=== PATIENT | female | born 1955 | race Caucasian/White ===

== ENCOUNTER 2018-05-27 06:58 | Inpatient (IN) | payer OTHER ==
[2018-05-26 08:06] VITALS: BP 139/67; PULSE 82; RESP 18; Ht 144.8 cm; Wt 63.7 kg
[2018-05-27] VITALS (62 sets, daily range): BP systolic 57–133; BP diastolic 34–69; PULSE 38–100; RESP 10–35
[~2018-05-27] VITALS: Ht 144.8 cm; Wt 63.7 kg
[~2018-05-27 06:58] MED LIST: ACET500C3 PO; ALBU18HF INHALATION; AMLO5TAB4 PO; BECL10.6 IH; DIAZEPAM 5 MG TAB PO SCH; DIPHENHYDRAMINE 50 MG CAP PO SCH; ERGO500013 PO; FAMOTIDINE 20 MG TAB PO SCH; FENTAnyl 50 MCG/ML VIAL ONE; FURO20TA3 PO; HEPARIN 1000 UNITS/ML 10 ML INJ ONE; IODIXANOL LOCM 100 ML BTL ONE; LEVO50TA7 PO; LIDOCAINE 1% (MDV) 20 ML INJ ONE; LOSA1TAB25 PO; MIDAZOLAM 1 MG/ML 2 ML INJ ONE; NITROGLYCERIN (IC) 100 MCG/ML INJ ONE; RANI150T5 PO; SIMV20TA PO; SOD CHLORIDE 0.9% 500 ML ONE; SPIR25TA PO; VERAPAMIL 5 MG INJ ONE; WARF4TAB PO; WARF5TAB PO
[2018-05-27] MEDS ORDERED: FENTAnyl 50 MCG/ML VIAL ONE (08:57)
[2018-05-27] MEDS ORDERED: IODIXANOL LOCM 100 ML BTL ONE (08:57)
[2018-05-27] MEDS ORDERED: MIDAZOLAM 1 MG/ML 2 ML INJ ONE (08:57)
[2018-05-27] MEDS ORDERED: LIDOCAINE 1% (MDV) 20 ML INJ ONE (08:57)
[2018-05-27] MEDS ORDERED: SOD CHLORIDE 0.9% 1,000 ML IV SCH (11:15)
--- NOTE | 2018-05-27 11:15 | SIPON ---
Date/Time of Note Date/Time of Note DATE: 05/27/18 TIME: 11:14 Operative Report Preoperative Diagnosis 1. Postoperative Diagnosis 1.non-obstructive cad 2.No significant Operation/Procedure Performed 1.C 2.RHC Surgeon see signature line resident assistant cna 1.Patrick Anesthesia: moderate sedation Estimated blood loss: minimal Transfusion Required none Specimen none Grafts/Implants none Complications none CHRIS LAZAR May 27, 2018 11:15
[2018-05-27] MEDS ORDERED: AL HYDROX/MG HYDROX/SIMETH 30 ML CUP PO PRN (11:30)
[2018-05-27] MEDS ORDERED: ATROPINE 1 MG/10 ML SYRINGE ONE (12:05)
[2018-05-27] MEDS ORDERED: NORepinephrine 8MG/250 ML (PMX 250 ML ONE (13:44)
--- NOTE | 2018-05-27 13:47 | HP ---
Date/Time of Note Date/Time of Note DATE: 05/27/18 TIME: 13:46 Assessment/Plan VTE Prophylaxis Risk score (from Ns)>0 risk: 2 SCD applied (from Ns): Yes Pharmacological prophylaxis: other Pharm contraindication: other Lines/Catheters IV C[facility]ter Type (from [facility] Peripheral IV Urinary Cath still in place: No Assessment/Plan Assessment/Plan - SP Left heart catheterization; Coronary angiography. - CARDIOLOGY follows - admit to ICU - SP Right heart catheterization - per cardio - Acute Dyspnea- none at present - acute abdominal pain - .CT abdomen/pelvis showed -Moderate to large amount of hemoperitoneum - Dr Moreno notified - will get Vascular sx - Acute Hyokalemia - K replaced; fu CMP am - Hypothyroidism - TSH am - Asthma - bronchodilators - Hx hypertension - Dyslipidemia - Reported CABG in [facility] in 1982 - Hx mitral valve replacement with mechanical valve 1999 Total critical care time spent 45 mins.Further recommendations based on clinical course. Plan of care discussed with Dr. Painter. Result Diagram: 05/26/18 0757 05/26/18 0757 Results 24hrs Laboratory Tests Test 05/27/18 07:45 Prothrombin Time 16.7 H Prothrombin Time Ratio 1.3 INR International Normalized Ratio 1.34 Activated Partial Thromboplast Time 27.7 Triglycerides Level 61 Cholesterol Level 122 LDL Cholesterol, Calculated 49 HDL Cholesterol 61 Cholesterol/HDL Ratio 2.0 HPI/ROS Admit Date/Time Admit Date/Time Hx of Present Illness Ms. Sexton, a 62-year-old female with history of hypertension, dyslipide poonam, reported CABG in [facility] in 1982, mitral valve replacement with mechanical valve 1999 had seen for complaints of shortness of breath. She underwent a cardiac stress test and echo revealing ischemia possible severe . Patient underwent left heart catheterization to assess for possibility of significant obstructive coronary artery disease lending to symptoms of shortness of breath and significant findings by echo and stress test. Patient seen in PACU- c/o abdominal pain; CT abdomen showed -Moderate to large amount of hemoperitoneum; Dr Moreno notified. Patient denies any chest pain, shortness of breath, headache, dizziness, nausea, vomiting. Patient is admitted under Dr Painter for further treatment/evaluation ROS Eyes: no complaints ENT: no complaints Respiratory: no complaints Cardiovascular: no complaints Gastrointestinal: pain Musculoskeletal: no complaints Skin: no complaints Neurologic: no complaints PMH/Family/Social Past Medical History Medications Current Medications Acetaminophen (Tylenol Tab) 650 mg Q4H PRN PO NON-CARDIAC PAIN LEVEL (1-3); Start 05/27/18 at 11:30 Morphine Sulfate (morphine) 2 mg Q2H PRN IV FOR NON CARDIAC PAIN (4-10); Start 05/27/18 at 11:30 Al Hydrox/Mg Hydrox/Simethicone (Mag-Al Plus) 30 ml Q4H PRN PO GASTROINTESTINAL UPSET; Start 05/27/18 at 11:30 Ondansetron HCl (Zofran Inj) 4 mg Q4H PRN IV NAUSEA AND/OR VOMITING; Start 05/27/18 at 11:30 Sodium Chloride 1,000 ml @ 75 mls/hr [id number] IV Last administered on 05/27/18at 11:39; Admin Dose 75 MLS/HR; Start 05/27/18 at 11:15; Stop 05/27/18 at 16:14 Warfarin Sodium (Coumadin) 5 mg DAILY@17 PO ; Start 05/27/18 at 17:00 Coded Allergies: No Known Allergy (Unverified , 06/09/18) Social History Smoking Status: Never smoker Exam/Review of Systems Vital Signs Vitals Vital Signs Date Temp Pulse Resp B/P (MAP) Pulse Ox O2 O2 Flow FiO2 Time Delivery Rate 05/27/18 94 10 85/57 (66) 100 Room Air 12:22 05/27/18 97.4 08:03 Exam Constitutional: alert, oriented (x2- name/place), well developed Psych: nl mood/affect Head: normocephalic Eyes: EOMI, nl lids, nl sclera ENMT: nl external ears & nose Neck: non-tender Respiratory: diminished breath sounds (at bases bilaterally) Cardiovascular: nl pulses, other (s1s2) Gastrointestinal: soft, tender (lower abdomen) Musculoskeletal: nl extremities to inspection, other Extremities: normal pulses, other (right groin- DDI) Neurological: nl speech, other (alert/awake) DELICIA MATUTE May 27, 2018 13:47
[2018-05-27] MEDS ORDERED: NORepinephrine 8MG/250 ML (PMX 250 ML IV SCH (15:00)
--- NOTE | 2018-05-27 15:03 | CARRPT ---
DATE OF PROCEDURE: 05/27/2018 TYPE OF PROCEDURES: 1. Left heart catheterization. 2. Coronary angiography. 3. Measurement of left ventricular end diastolic pressure. 4. Aortic root angiography. 5. Right heart catheterization. 6. Femoral angiography. 7. Moderate conscious sedation. 8. Placement of right femoral venous line. ATTENDING PHYSICIAN: Chris Moreno MD REFERRING PHYSICIAN: En Reyes MD INDICATION: Aortic stenosis by echo, history of CABG, assess for obstructive coronary artery disease, assess valve area. TYPE OF ANESTHESIA: Conscious and local. BRIEF HISTORY: Ms. Sexton is a 62-year-old female with history of hypertension, dyslipidemia, reported a CABG in [place] in 1982, mitral valve replacement with mechanical valve in 1999, who presented with complaints of shortness of breath. She underwent a cardiac stress test and echo revealing ischemia possible severe . Given these findings, the patient was referred for and presents today in order to undergo left heart catheterization to assess or possibility of significant obstructive coronary artery disease lending to symptoms of shortness of breath and significant findings by echo and stress test. DESCRIPTION OF PROCEDURE: After informed consent was obtained, the patient was brought to the [facility] cardiac catheterization lab where her right radial area was prepped and draped in the sterile fashion. A 2% lidocaine was infiltrated to the right radial area in order to achieve adequate anesthesia. Using modified Seldinger technique, the femoral artery was cannulated and a 6-Brazilian arterial sheath was placed. Subsequently using modified Seldinger technique, the patient's femoral artery was cannulated and a 7-Brazilian venous sheath was placed. A 7-Brazilian [place] catheter was passed up the IVC into the RA, RV, PA and pulmonary capillary wedge positions with pressures obtained in each subsequent chamber. Cardiac output was determined by thermodilution method and removed. Subsequently at this time, the patient's swan geraldine was removed and a JL4 was used to cannulate the left main coronary ostium. With contrast injection, multiple views of the left coronary arterial system were obtained. JL4 was removed a guidewire and a JR4 was then used to cannulate the right coronary arterial ostium. With contrast injection, multiple views of the right coronary arterial systems were obtained. A JR4 was then left in place and using a regular 0.035 guidewire, we were able to cross the aortic valve and exchanged the JR4 pigtail. After which we measured LVEDP and then attempted to do pressures across the aortic valve but the P2 pressure would not show; therefore we then pulled back across the aortic valve to assess for significant gradient and removed this. Subsequently, we did a femoral angiography to assess placement of the patient's arterial sheath, placed in the common femoral artery just inferior epigastric. Subsequently, manual pressure was held over the arterial and venous sites. Hemostasis was achieve completing the procedure. There were no noted complications. FINDINGS: Coronary angiography: Left main is 4 mm, no significant focal stenoses. Circumflex proximally is a 3 mm vessel and has mildly luminal irregularities of 10%, no other significant blockages. It is a dominant vessel and therefore gives off a left-sided PDA 2 mm, no significant focal stenoses. The proximal branching obtuse marginal is 2 mm, no significant focal stenoses then a mid branching obtuse marginal is sub 2 mm vessel with no significant focal stenoses. LAD proximally is a 3 mm vessel and no significant focal stenosis in this portion. Remainder of the LAD in the mid portion has mild luminal irregularities with 10% and goes around the apex. There are 2 mid branching diagonals, each sub 2 mm vessels with no significant focal stenoses. The right coronary artery proximally is a small vessel with a very sharp takeoff, a 2 mm and ostial probably 30% stenosis and does give off a very small PDA sub 2 mm vessel and a small posterolateral branch sub 2 mm vessel with no significant focal stenoses. Aortic root angiography identified the patient's nenana left and right coronary arteries. No other vessels were identified. No graft. No stumps. No clips noted. No signs of prior bypass surgery at all. Angiography. The patient's mitral valve mechanical prostheses revealed a bileaflet prostheses with excellent leaflet excursion. No signs of problems. Aortic root angiography additionally revealed the patient to have a 2+ aortic regurgitation. Right heart catheterization revealed a right atrial pressure of 11, right ventricular pressure of 37/1, PA pressure of 39/13, pulmonary capillary wedge pressure of 12. The cardiac output is 3.32 with cardiac index showing 2.14. We got the peak gradient across the aortic valve of 20 with a valve area is calculated at 0.86 with peak gradient of only 20. IMPRESSION: 1. No significant epicardial coronary artery stenosis, very mild nonobstructive coronary artery disease and essentially normal coronary arteries. 2. No signs of prior coronary artery bypass graft surgery. 3. No significant gradient across the patient's aortic valve, no significant calcifications noted and very easily to cross with a JR catheter and a J-tip guidewire and I believe that the estimated aortic valve area was underestimated. 4. Proper function of the patient's mitral valve mechanical prostheses by fluoroscopic imaging. 5. Mildly elevated left heart pressures. 6. Low cardiac output and cardiac index. 7. Normal pulmonary capillary wedge pressure. RECOMMENDATIONS: In light of procedure findings at this time, we would: 1. Maximize medical management. 2. Aggressive risk factor reduction. 3. The patient will be admitted to the hospital for bridging for anticoagulation for her mechanical valve as kinetics with reloading Coumadin can be difficult thing to predict and therefore to ensure that she has no complications we will initiate her anticoagulation in hospital first. 4. Additionally, the patient was noted to have some clotting of her sheath and therefore felt she may have some hypercoagulable state and therefore need to be anticoagulated sooner rather than allowing her valve to have possibly becoming any thrombosis. Dictated By: CHRIS HERNANDEZ/SAVANNAH Conf#: [id number] DID#: [id number] TRACI
[2018-05-27] MEDS ORDERED: WARFARIN 5 MG TAB PO SCH (17:00)
[2018-05-27] MEDS: SOD CHLORIDE 0.9% 1,000 ML IV SCH (18:00)
[2018-05-27] MEDS ORDERED: IOHEXOL 300MG/ML 150 ML BTL ONE (18:17)
[2018-05-27] MEDS ORDERED: SOD CHLORIDE 0.9% 100 ML ONE (18:17)
[2018-05-27] MEDS: ACETAMINOPHEN 325 MG TAB PO PRN (20:41)
[2018-05-27] MEDS: ONDANSETRON 4 MG INJ IV PRN (20:41)
--- NOTE | 2018-05-27 21:42 | CONS ---
DATE OF ADMISSION: 05/27/2018 DATE OF CONSULTATION: 05/27/2018 REASON FOR CONSULTATION: Intraabdominal bleeding. Thank you, Dr. Painter, for asking me to see this patient. HISTORY OF PRESENT ILLNESS: This is a 62-year-old female who underwent a cardiac catheterization tod ay, subsequently was found to have abdominal pain. CAT scan without contrast was done which showed m oderately large hemoperitoneum within the pelvis and right paracolic gutter. The patient has also dr opped her hemoglobin from 11.4 to 7.8. However, she is hemodynamically stable at the present time. PAST MEDICAL HISTORY: Hypertension, hyperlipidemia, coronary artery disease. PAST SURGICAL HISTORY: Coronary artery bypass grafting. ALLERGIES: NONE. SOCIAL HISTORY: No smoking, drinking or drug use. MEDICATIONS: List reviewed. PHYSICAL EXAMINATION: GENERAL: The patient is awake, alert, responds appropriately. The daughter at the bedside. VITAL SIGNS: Blood pressure is 133/53, pulse is 82, respirations 18, saturations 100% on room air. CARDIOVASCULAR: Normal S1, S2. No murmurs, gallops or rubs. LUNGS: Clear. ABDOMEN: Soft. EXTREMITIES: Warm. IMPRESSION: Intraabdominal bleeding after cardiac catheterization. RECOMMENDATIONS: Monitor hemoglobin levels. The patient will also need a CAT scan with contrast to evaluate for any extravasation. Discussed with the patient. All questions answered. Dictated By: KIRILL CHRISTIAN MD FM/NTS Conf#: [id number] DID#: [id number] CC: JULY PAINTER MD;*EndCC*
[2018-05-28] VITALS (35 sets, daily range): BP systolic 86–128; BP diastolic 41–68; PULSE 61–78; RESP 17–31
[2018-05-28] MEDS: ACETAMINOPHEN 325 MG TAB PO PRN (11:12)
[2018-05-28] MEDS: SOD CHLORIDE 0.9% 1,000 ML IV SCH ×2 (11:13→20:15)
--- NOTE | 2018-05-28 13:01 | PN ---
Date/Time of Note Date/Time of Note DATE: 05/28/18 TIME: 13:01 Assessment/Plan Lines/Catheters IV Catheter Type (from Nrsg): [place] in Place (from Nrsg): No Assessment/Plan Assessment/Plan That is post cardiac catheterization Retroperitoneal bleed Medically the patient is stable No signs of ongoing bleeding Will monitor hemoglobin levels Her hemodynamics Flat Subjective 24 Hr Interval Summary Constitutional: improved Pain Control: mild Exam/Review of Systems Vital Signs Vitals Vital Signs Date Temp Pulse Resp B/P (MAP) Pulse Ox O2 O2 Flow FiO2 Time Delivery Rate 05/28/18 77 25 114/51 96 Room Air 11:00 (72) 05/28/18 98.6 08:00 Intake and Output 05/27/18 05/27/18 05/28/18 1515:00 23:00 07:00 IntakeIntake Total 196.375 ml 703.75 ml 600 ml OutputOutput Total 400 ml 250 ml 400 ml BalanceBalance -203.625 ml 453.75 ml 200 ml Exam ENMT: nl external ears & nose, nl lips & teeth, nl nasal mucosa & septum, mucosa pink and moist Neck: supple, non-tender Respiratory: clear to auscultation, normal air movement Cardiovascular: regular rate and rhythm, nl pulses Gastrointestinal: soft, nl liver, spleen, non-tender Musculoskeletal: nl extremities to inspection, nl gait and stance Results Result Diagram: 05/28/18 1206 05/28/18 0434 KIRILL CHRISTIAN MD May 28, 2018 13:01
--- NOTE | 2018-05-28 13:52 | CONS ---
Consult Date/Type/Reason Admit Date/Time Initial Consult Date Date/Time of Note DATE: 05/28/18 TIME: 13:47 Subjective NO acute events - pt appears to be stable by exam - H/H now satbilized from 9.9 to 11.4 - will monitor for now - pt with MVR - if am H/H stable, will resume anti-coagulation with heparin gtt to protect the valve. ROS: No fever, no chills, no nausea, no vomiting, no diarrhea/constipation No recent weight changes No chest pain, no PND, no orthopnea No dizziness, blurred vision No thirst, no heat or cold intolerance Objective Vitals Vital Signs Date Temp Pulse Resp B/P (MAP) Pulse Ox O2 O2 Flow FiO2 Time Delivery Rate 05/28/18 77 25 114/51 96 Room Air 11:00 (72) 05/28/18 98.6 08:00 Intake and Output 05/27/18 05/27/18 05/28/18 1515:00 23:00 07:00 IntakeIntake Total 196.375 ml 703.75 ml 600 ml OutputOutput Total 400 ml 250 ml 400 ml BalanceBalance -203.625 ml 453.75 ml 200 ml Exam General: WN/WD/NAD, AOx 3 HEENT: Unicetric/atraumatic/EOMI (follow commands) NECK: JVD elevated, no thyromegaly Lymph: no lymphadenopathy HEART: regular with no S3, II/ systolic murmur at apex, mech click LUNGS: Coarse sounds ABD: soft, NT, ND, +BS : Intact Neuro: non focal SKIN: chronic changes EXT: trace edema Results/Medications Result Diagram: 05/28/18 1206 05/28/18 0434 Results 24 hrs Laboratory Tests Test 05/27/18 13:55 05/27/18 23:08 05/28/18 04:34 05/28/18 05:16 Hemoglobin 7.8 #L 9.9 #L 9.9 L Hematocrit 24.4 #L 30.3 #L 31.2 L White Blood Count 4.2 #L Red Blood Count 3.35 L Mean Corpuscular 93.1 Volume Mean Corpuscular 29.6 Hemoglobin Mean Corpuscular 31.7 L Hemoglobin Concen t Red Cell 15.5 H Distribution Width Platelet Count 146 # Mean Platelet 10.1 Volume Immature 0.200 Granulocytes % Neutrophils % 65.7 Lymphocytes % 25.3 Monocytes % 7.4 Eosinophils % 1.2 Basophils % 0.2 Nucleated Red 0.0 Blood Cells % Immature 0.010 Granulocytes # Neutrophils # 2.8 Lymphocytes # 1.1 Monocytes # 0.3 Eosinophils # 0.1 Basophils # 0.0 Nucleated Red 0.0 Blood Cells # Sodium Level 142 Potassium Level 3.8 Chloride Level 111 H Carbon Dioxide 24 Level Anion Gap 7 Blood Urea 11 Nitrogen Creatinine 0.65 Est Glomerular > 60 Filtrat Rate mL/min Glucose Level 87 Calcium Level 8.3 L Total Bilirubin 0.7 Direct Bilirubin 0.00 Indirect 0.7 Bilirubin Aspartate Amino 32 Transf (AST/SGOT) Alanine 21 Aminotransferase (ALT/SGPT) Alkaline 47 Phosphatase Total Protein 6.1 # Albumin 3.2 #L Globulin 2.90 Albumin/Globulin 1.10 Ratio Triglycerides 120 Level Cholesterol Level 85 L LDL Cholesterol, 25 Calculated HDL Cholesterol 36 # Cholesterol/HDL 2.3 Ratio Thyroid 2.290 Stimulating Hormone (TSH) Lab Scanned BLOOD TRANSFUSIO Report N Test 05/28/18 12:06 Hemoglobin 11.3 L Hematocrit 34.5 L Home Meds Reported Medications Albuterol Sulfate* (Ventolin HFA*) 18 Gm Hfa.aer.ad, 2 PUFF INHALATION Q4H, #1 INHALER 05/26/18 Ergocalciferol (Vitamin D2) (VITAMIN D2) 50,000 Unit Capsule, 93683 UNIT PO [id number], CAP 05/23/18 Warfarin Sodium* (Coumadin*) 5 Mg Tablet, 5 MG PO Q TUES,THUR,SAT, TAB 05/23/18 Warfarin Sodium* (Coumadin*) 4 Mg Tablet, 4 MG PO Q MON,WED,FRI,SUN, TAB 05/23/18 Furosemide* (Furosemide*) 20 Mg Tablet, 20 MG PO DAILY, #60 TAB TAKE Q 2 DAYS 05/23/18 Simvastatin* (Zocor*) 20 Mg Tablet, 20 MG PO QHS, #30 TAB 05/23/18 Ranitidine Hcl* (Ranitidine Hcl*) 150 Mg Tablet, 150 MG PO HS, #30 TAB 05/23/18 Acetaminophen (Mapap) 500 Mg Capsule, 500 MG PO BID PRN for PAIN, CAP 05/23/18 Levothyroxine Sodium* (Levothyroxine Sodium*) 50 Mcg Tablet, 50 MCG PO BEFORE BREAKFAST, #30 TAB 05/23/18 Spironolactone* (Aldactone*) 25 Mg Tablet, 25 MG PO DAILY, #30 TAB 05/23/18 Beclomethasone Dipropionate (Qvar Redihaler (40 MCG)) 10.6 Gm Hfa.aeroba, 10.6 GM IH DAILY, INH 05/23/18 Amlodipine Besylate* (Norvasc*) 5 Mg Tablet, 5 MG PO BID, TAB 05/23/18 Losartan-Hydrochlorothiazide (Losartan-HCTZ) 100-25 Mg Tab, 1 TAB PO DAILY, TAB 05/23/18 Medications Current Medications Acetaminophen (Tylenol Tab) 650 mg Q4H PRN PO NON-CARDIAC PAIN LEVEL (1-3) Last administered on 05/28/18at 11:12; Admin Dose 650 MG; Start 05/27/18 at 11:30 Morphine Sulfate (morphine) 2 mg Q2H PRN IV FOR NON CARDIAC PAIN (4-10); Start 05/27/18 at 11:30 Al Hydrox/Mg Hydrox/Simethicone (Mag-Al Plus) 30 ml Q4H PRN PO GASTROINTESTINAL UPSET; Start 05/27/18 at 11:30 Ondansetron HCl (Zofran Inj) 4 mg Q4H PRN IV NAUSEA AND/OR VOMITING Last administered on 05/27/18at 20:41; Admin Dose 4 MG; Start 05/27/18 at 11:30 Norepinephrine 250 ml @ 1.875 mls/ hr TITRATE IV Last administered on 05/27/18at 14:30; Admin Dose 3.75 MLS/HR; Start 05/27/18 at 15:00 Sodium Chloride 1,000 ml @ 75 mls/hr [id number] IV Last administered on 05/28/18at 11:13; Admin Dose 75 MLS/HR; Start 05/27/18 at 18:30 Assessment/Plan Hospital Course (Demo Recall) 1. CAD - s/p Left heart catheterization; Coronary angiography - no intervention done. 2. Retroperitoneal bleed: CT abdomen/pelvis showed moderate to large amount of hemoperitoneum. NOw H/H satble - will advise resuming anti-coagaltion tomorrow am if H/H stable - hepari 3. HTN - BP in good range now. 4. Hypothyroidism - TSH followed by primary team. 5. Asthma - - bronchodilators as needed 6. Hx mitral valve replacement with mechanical valve 1999 - plan to anti-coag as soon as possible. CECILIA MOCTEZUMA MD May 28, 2018 13:52
--- NOTE | 2018-05-28 23:44 | PN ---
Date/Time of Note Date/Time of Note DATE: 05/28/18 TIME: 23:42 Assessment/Plan VTE Prophylaxis Risk score (from [facility])>0 risk: 4 SCD applied (from [facility]): No SCD contraindicated: other Pharmacological prophylaxis: other Pharm contraindication: other Lines/Catheters [facility] (from [facility] Saline Lock Urinary Cath still in place: No Assessment/Plan Assessment/Plan - SP Left heart catheterization; Coronary angiography. - CARDIOLOGY follows - SP Right heart catheterization - per cardio - Acute Dyspnea- none at present - acute abdominal pain - .CT abdomen/pelvis showed -Moderate to large amount of hemoperitoneum - per Dr Moreno notified - per Vascular sx - Acute Hyokalemia - K replaced; fu CMP am - Hypothyroidism - TSH am - Asthma - bronchodilators - Hx hypertension - Dyslipidemia - Reported CABG in [facility] in 1982 - Hx mitral valve replacement with mechanical valve 1999 Total critical care time spent 45 mins.Further recommendations based on clinical course. Plan of care discussed with Dr. Painter. Result Diagram: 05/28/18 1842 05/28/18 0434 Results 24hrs Laboratory Tests Test 05/28/18 04:34 05/28/18 05:16 05/28/18 12:06 05/28/18 18:42 White Blood Count 4.2 #L Red Blood Count 3.35 L Hemoglobin 9.9 L 11.3 L 9.6 L Hematocrit 31.2 L 34.5 L 29.1 L Mean Corpuscular 93.1 Volume Mean Corpuscular 29.6 Hemoglobin Mean Corpuscular 31.7 L Hemoglobin Concen t Red Cell 15.5 H Distribution Width Platelet Count 146 # Mean Platelet 10.1 Volume Immature 0.200 Granulocytes % Neutrophils % 65.7 Lymphocytes % 25.3 Monocytes % 7.4 Eosinophils % 1.2 Basophils % 0.2 Nucleated Red 0.0 Blood Cells % Immature 0.010 Granulocytes # Neutrophils # 2.8 Lymphocytes # 1.1 Monocytes # 0.3 Eosinophils # 0.1 Basophils # 0.0 Nucleated Red 0.0 Blood Cells # Sodium Level 142 Potassium Level 3.8 Chloride Level 111 H Carbon Dioxide 24 Level Anion Gap 7 Blood Urea 11 Nitrogen Creatinine 0.65 Est Glomerular > 60 Filtrat Rate mL/min Glucose Level 87 Calcium Level 8.3 L Total Bilirubin 0.7 Direct Bilirubin 0.00 Indirect 0.7 Bilirubin Aspartate Amino 32 Transf (AST/SGOT) Alanine 21 Aminotransferase (ALT/SGPT) Alkaline 47 Phosphatase Total Protein 6.1 # Albumin 3.2 #L Globulin 2.90 Albumin/Globulin 1.10 Ratio Triglycerides 120 Level Cholesterol Level 85 L LDL Cholesterol, 25 Calculated HDL Cholesterol 36 # Cholesterol/HDL 2.3 Ratio Thyroid 2.290 Stimulating Hormone (TSH) Lab Scanned BLOOD TRANSFUSIO Report N Subjective 24 Hr Interval Summary Constitutional: improved, requiring O2 ENT: no complaints Respiratory: no complaints Cardiovascular: no complaints Gastrointestinal: no complaints Genitourinary: no complaints Musculoskeletal: other (general weakness) Skin: no complaints Exam/Review of Systems Exam Vitals Vital Signs Date Temp Pulse Resp B/P (MAP) Pulse Ox O2 O2 Flow FiO2 Time Delivery Rate 05/28/18 73 20:00 05/28/18 27 111/60 95 Room Air 18:00 (77) 05/28/18 98.5 16:00 Intake and Output 05/27/18 05/27/18 05/28/18 1515:00 23:00 07:00 IntakeIntake Total 196.375 ml 703.75 ml 600 ml OutputOutput Total 400 ml 250 ml 400 ml BalanceBalance -203.625 ml 453.75 ml 200 ml Constitutional: well developed Psych: nl mood/affect Head: normocephalic Eyes: nl lids, nl sclera ENMT: nl external ears & nose Neck: supple Respiratory: clear to auscultation Cardiovascular: nl pulses, other (s1s2) Gastrointestinal: soft, non-tender Musculoskeletal: muscle weakness Extremities: normal pulses Neurological: other (alert) Skin: nl turgor Lymph: nontender Results Results 24hrs Laboratory Tests Test 05/28/18 04:34 05/28/18 05:16 05/28/18 12:06 05/28/18 18:42 White Blood Count 4.2 #L Red Blood Count 3.35 L Hemoglobin 9.9 L 11.3 L 9.6 L Hematocrit 31.2 L 34.5 L 29.1 L Mean Corpuscular 93.1 Volume Mean Corpuscular 29.6 Hemoglobin Mean Corpuscular 31.7 L Hemoglobin Concen t Red Cell 15.5 H Distribution Width Platelet Count 146 # Mean Platelet 10.1 Volume Immature 0.200 Granulocytes % Neutrophils % 65.7 Lymphocytes % 25.3 Monocytes % 7.4 Eosinophils % 1.2 Basophils % 0.2 Nucleated Red 0.0 Blood Cells % Immature 0.010 Granulocytes # Neutrophils # 2.8 Lymphocytes # 1.1 Monocytes # 0.3 Eosinophils # 0.1 Basophils # 0.0 Nucleated Red 0.0 Blood Cells # Sodium Level 142 Potassium Level 3.8 Chloride Level 111 H Carbon Dioxide 24 Level Anion Gap 7 Blood Urea 11 Nitrogen Creatinine 0.65 Est Glomerular > 60 Filtrat Rate mL/min Glucose Level 87 Calcium Level 8.3 L Total Bilirubin 0.7 Direct Bilirubin 0.00 Indirect 0.7 Bilirubin Aspartate Amino 32 Transf (AST/SGOT) Alanine 21 Aminotransferase (ALT/SGPT) Alkaline 47 Phosphatase Total Protein 6.1 # Albumin 3.2 #L Globulin 2.90 Albumin/Globulin 1.10 Ratio Triglycerides 120 Level Cholesterol Level 85 L LDL Cholesterol, 25 Calculated HDL Cholesterol 36 # Cholesterol/HDL 2.3 Ratio Thyroid 2.290 Stimulating Hormone (TSH) Lab Scanned BLOOD TRANSFUSIO Report N Medications Medication Current Medications Acetaminophen (Tylenol Tab) 650 mg Q4H PRN PO NON-CARDIAC PAIN LEVEL (1-3) Last administered on 05/28/18at 11:12; Admin Dose 650 MG; Start 05/27/18 at 11:30 Morphine Sulfate (morphine) 2 mg Q2H PRN IV FOR NON CARDIAC PAIN (4-10); Start 05/27/18 at 11:30 Al Hydrox/Mg Hydrox/Simethicone (Mag-Al Plus) 30 ml Q4H PRN PO GASTROINTESTINAL UPSET; Start 05/27/18 at 11:30 Ondansetron HCl (Zofran Inj) 4 mg Q4H PRN IV NAUSEA AND/OR VOMITING Last administered on 05/27/18at 20:41; Admin Dose 4 MG; Start 05/27/18 at 11:30 Norepinephrine 250 ml @ 1.875 mls/ hr TITRATE IV Last administered on 05/27/18 14:30; Admin Dose 3.75 MLS/HR; Start 05/27/18 at 15:00 Sodium Chloride 1,000 ml @ 75 mls/hr [id number] IV Last administered on 05/28/18at 20:15; Admin Dose 75 MLS/HR; Start 05/27/18 at 18:30 DELICIA MATUTE May 28, 2018 23:44
[2018-05-29] VITALS (19 sets, daily range): BP systolic 106–136; BP diastolic 53–81; PULSE 72–89; RESP 19–33
[2018-05-29] MEDS: ACETAMINOPHEN 325 MG TAB PO PRN ×2 (00:06→10:26)
[2018-05-29] MEDS ORDERED: SOD CHLORIDE 0.9% 250 ML IV* ONE (09:14)
[2018-05-29] MEDS: AMLODIPINE 5 MG TAB PO SCH ×2 (10:27→20:14)
--- NOTE | 2018-05-29 11:18 | PN ---
Date/Time of Note Date/Time of Note DATE: 05/29/18 TIME: 11:16 Assessment/Plan VTE Prophylaxis Risk score (from [facility])>0 risk: 4 SCD applied (from [facility]): No SCD contraindicated: other Pharmacological prophylaxis: other Pharm contraindication: other Lines/Catheters IV [facility] Type (from [facility] Saline Lock Urinary Cath still in place: No Assessment/Plan Assessment/Plan - SP Left heart catheterization; Coronary angiography. - CARDIOLOGY follows - SP Right heart catheterization - per cardio - Acute Dyspnea- none at present - acute abdominal pain - .CT abdomen/pelvis showed -Moderate to large amount of hemoperitoneum - per Dr Moreno - per Vascular sx - Hypothyroidism - Asthma - bronchodilators - Hx hypertension - Dyslipidemia - Reported CABG in [facility] in 1982 - Hx mitral valve replacement with mechanical valve 1999 Total critical care time spent 45 mins.Further recommendations based on clinical course. Plan of care discussed with Dr. Painter. Result Diagram: 05/29/18 0410 05/29/18409 Results 24hrs Laboratory Tests Test 05/28/18 12:06 05/28/18 18:42 05/29/18 00:19 05/29/18 04:10 Hemoglobin 11.3 L 9.6 L 9.4 L 8.9 L Hematocrit 34.5 L 29.1 L 29.1 L 27.3 L White Blood Count 3.8 L Red Blood Count 2.88 L Mean Corpuscular 94.8 Volume Mean Corpuscular 30.9 Hemoglobin Mean Corpuscular 32.6 Hemoglobin Concent Red Cell 14.7 H Distribution Width Platelet Count 119 L Mean Platelet Volume 10.3 Immature 0.500 H Granulocytes % Neutrophils % 67.0 Lymphocytes % 22.9 Monocytes % 7.3 Eosinophils % 1.8 Basophils % 0.5 Nucleated Red Blood 0.0 Cells % Immature 0.020 Granulocytes # Neutrophils # 2.6 Lymphocytes # 0.9 Monocytes # 0.3 Eosinophils # 0.1 Basophils # 0.0 Nucleated Red Blood 0.0 Cells # Sodium Level 142 Potassium Level 3.7 Chloride Level 107 Carbon Dioxide Level 26 Anion Gap 9 Blood Urea Nitrogen 9 Creatinine 0.61 Est Glomerular > 60 Filtrat Rate mL/min Glucose Level 100 Calcium Level 8.6 Total Bilirubin 0.6 Direct Bilirubin 0.00 Indirect Bilirubin 0.6 Aspartate Amino 25 Transf (AST/SGOT) Alanine 19 Aminotransferase (AL T/SGPT) Alkaline Phosphatase 42 Total Protein 6.3 Albumin 3.1 L Globulin 3.20 Albumin/Globulin 0.96 Ratio Subjective 24 Hr Interval Summary Constitutional: requiring O2 Eyes: no complaints ENT: no complaints Respiratory: no complaints Cardiovascular: no complaints Gastrointestinal: no complaints Genitourinary: no complaints Musculoskeletal: no complaints Neurologic: no complaints Exam/Review of Systems Exam Vitals Vital Signs Date Temp Pulse Resp B/P (MAP) Pulse Ox O2 O2 Flow FiO2 Time Delivery Rate 05/29/18 98.4 72 25 134/64 96 Room Air 08:00 (87) Intake and Output 05/28/18 05/28/18 05/29/18 1515:00 23:00 07:00 IntakeIntake Total 1080 ml 725 ml 1375 ml BalanceBalance 1080 ml 725 ml 1375 ml Constitutional: alert, well developed Psych: nl mood/affect Head: normocephalic Eyes: EOMI, nl lids, nl sclera ENMT: nl external ears & nose, nl lips & teeth Neck: non-tender Respiratory: clear to auscultation Cardiovascular: nl pulses, other (s1s2) Gastrointestinal: soft, non-tender Musculoskeletal: nl extremities to inspection Extremities: normal pulses Neurological: nl speech Skin: nl turgor Lymph: nontender Results Results 24hrs Laboratory Tests Test 05/28/18 12:06 05/28/18 18:42 05/29/18 00:19 05/29/18 04:10 Hemoglobin 11.3 L 9.6 L 9.4 L 8.9 L Hematocrit 34.5 L 29.1 L 29.1 L 27.3 L White Blood Count 3.8 L Red Blood Count 2.88 L Mean Corpuscular 94.8 Volume Mean Corpuscular 30.9 Hemoglobin Mean Corpuscular 32.6 Hemoglobin Concent Red Cell 14.7 H Distribution Width Platelet Count 119 L Mean Platelet Volume 10.3 Immature 0.500 H Granulocytes % Neutrophils % 67.0 Lymphocytes % 22.9 Monocytes % 7.3 Eosinophils % 1.8 Basophils % 0.5 Nucleated Red Blood 0.0 Cells % Immature 0.020 Granulocytes # Neutrophils # 2.6 Lymphocytes # 0.9 Monocytes # 0.3 Eosinophils # 0.1 Basophils # 0.0 Nucleated Red Blood 0.0 Cells # Sodium Level 142 Potassium Level 3.7 Chloride Level 107 Carbon Dioxide Level 26 Anion Gap 9 Blood Urea Nitrogen 9 Creatinine 0.61 Est Glomerular > 60 Filtrat Rate mL/min Glucose Level 100 Calcium Level 8.6 Total Bilirubin 0.6 Direct Bilirubin 0.00 Indirect Bilirubin 0.6 Aspartate Amino 25 Transf (AST/SGOT) Alanine 19 Aminotransferase (AL T/SGPT) Alkaline Phosphatase 42 Total Protein 6.3 Albumin 3.1 L Globulin 3.20 Albumin/Globulin 0.96 Ratio Medications Medication Current Medications Acetaminophen (Tylenol Tab) 650 mg Q4H PRN PO NON-CARDIAC PAIN LEVEL (1-3) Last administered on 05/29/18 10:26; Admin Dose 650 MG; Start 05/27/18 at 11:30 Morphine Sulfate (morphine) 2 mg Q2H PRN IV FOR NON CARDIAC PAIN (4-10); Start 05/27/18 at 11:30 Al Hydrox/Mg Hydrox/Simethicone (Mag-Al Plus) 30 ml Q4H PRN PO GASTROINTESTINAL UPSET; Start 05/27/18 at 11:30 Ondansetron HCl (Zofran Inj) 4 mg Q4H PRN IV NAUSEA AND/OR VOMITING Last administered on 05/27/18at 20:41; Admin Dose 4 MG; Start 05/27/18 at 11:30 Norepinephrine 250 ml @ 1.875 mls/ hr TITRATE IV Last administered on 05/27/18at 14:30; Admin Dose 3.75 MLS/HR; Start 05/27/18 at 15:00 Sodium Chloride 1,000 ml @ 75 mls/hr [id number] IV Last administered on 05/28/18at 20:15; Admin Dose 75 MLS/HR; Start 05/27/18 at 18:30 Amlodipine Besylate (Norvasc) 5 mg BID PO Last administered on 05/29/18at 10:27; Admin Dose 5 MG; Start 05/29/18 at 10:00 Levothyroxine Sodium (Synthroid) 50 mcg BEFORE BREAKFAST PO ; Start 05/30/18 at 07:00 Ranitidine HCl (Zantac) 150 mg HS PO ; Start 05/29/18 at 21:00 Mometasone Furoate (Asmanex) 1 puff DAILY INH ; Start 05/29/18 at 11:00 Atorvastatin Calcium (Lipitor) 10 mg DAILY@21 PO ; Start 05/29/18 at 21:00 DELICIA MATUTE May 29, 2018 11:18
[2018-05-29] MEDS: MOMETASONE 0.24 GM INHALER INH SCH (12:06)
--- NOTE | 2018-05-29 12:46 | PN ---
Date/Time of Note Date/Time of Note DATE: 05/29/18 TIME: 12:45 Assessment/Plan Lines/Catheters IV Catheter Type (from Nrsg): Saline Lock [place] in Place (from Nrsg): No Assessment/Plan Assessment/Plan Retroperitoneal bleeding Minimal drop in the hemoglobin Hemodynamically stable Will monitor hemoglobin levels Subjective 24 Hr Interval Summary Constitutional: improved Pain Control: mild Exam/Review of Systems Vital Signs Vitals Vital Signs Date Temp Pulse Resp B/P (MAP) Pulse Ox O2 O2 Flow FiO2 Time Delivery Rate 05/29/18 98.4 72 25 134/64 96 Room Air 08:00 (87) Intake and Output 05/28/18 05/28/18 05/29/18 1515:00 23:00 07:00 IntakeIntake Total 1080 ml 725 ml 1375 ml BalanceBalance 1080 ml 725 ml 1375 ml Exam ENMT: nl external ears & nose, nl lips & teeth, nl nasal mucosa & septum, mucosa pink and moist Neck: supple, non-tender Respiratory: clear to auscultation, normal air movement Cardiovascular: regular rate and rhythm, nl pulses Gastrointestinal: soft, nl liver, spleen, non-tender Musculoskeletal: nl extremities to inspection, nl gait and stance Results Result Diagram: 05/29/1840905/29/18409 KIRILL CHRISTIAN MD May 29, 2018 12:46
--- NOTE | 2018-05-29 13:31 | CONS ---
Consult Date/Type/Reason Admit Date/Time May 28, 2018 at 17:52 Initial Consult Date Date/Time of Note DATE: 05/29/18 TIME: 13:28 Subjective NO acute events - pt satble - reported some back pain earlier today - better now. ROS: No fever, no chills, no nausea, no vomiting, no diarrhea/constipation No recent weight changes No chest pain, no PND, no orthopnea - mild SOB No dizziness, blurred vision No thirst, no heat or cold intolerance Objective Vitals Vital Signs Date Temp Pulse Resp B/P (MAP) Pulse Ox O2 O2 Flow FiO2 Time Delivery Rate 05/29/18 98.4 72 25 134/64 96 Room Air 08:00 (87) Intake and Output 05/28/18 05/28/18 05/29/18 1414:59 22:59 06:59 IntakeIntake Total 1080 ml 800 ml 1300 ml OutputOutput Total 0 ml BalanceBalance 1080 ml 800 ml 1300 ml Exam General: WN/WD/NAD, AOx 3 HEENT: Unicetric/atraumatic/EOMI ( follows commands) NECK: JVD elevated, no thyromegaly Lymph: no lymphadenopathy HEART: regular with no S3, II/ systolic murmur at apex, mech click LUNGS: Coarse sounds ABD: soft, NT, ND, +BS : Intact Neuro: non focal SKIN: chronic changes EXT: trace edema Results/Medications Result Diagram: 05/29/1840905/29/18409 Results 24 hrs Laboratory Tests Test 05/28/18 18:42 05/29/18 00:19 05/29/18 04:10 Hemoglobin 9.6 L 9.4 L 8.9 L Hematocrit 29.1 L 29.1 L 27.3 L White Blood Count 3.8 L Red Blood Count 2.88 L Mean Corpuscular Volume 94.8 Mean Corpuscular Hemoglobin 30.9 Mean Corpuscular Hemoglobin Concent 32.6 Red Cell Distribution Width 14.7 H Platelet Count 119 L Mean Platelet Volume 10.3 Immature Granulocytes % 0.500 H Neutrophils % 67.0 Lymphocytes % 22.9 Monocytes % 7.3 Eosinophils % 1.8 Basophils % 0.5 Nucleated Red Blood Cells % 0.0 Immature Granulocytes # 0.020 Neutrophils # 2.6 Lymphocytes # 0.9 Monocytes # 0.3 Eosinophils # 0.1 Basophils # 0.0 Nucleated Red Blood Cells # 0.0 Sodium Level 142 Potassium Level 3.7 Chloride Level 107 Carbon Dioxide Level 26 Anion Gap 9 Blood Urea Nitrogen 9 Creatinine 0.61 Est Glomerular Filtrat Rate mL/min > 60 Glucose Level 100 Calcium Level 8.6 Total Bilirubin 0.6 Direct Bilirubin 0.00 Indirect Bilirubin 0.6 Aspartate Amino Transf (AST/SGOT) 25 Alanine Aminotransferase (ALT/SGPT) 19 Alkaline Phosphatase 42 Total Protein 6.3 Albumin 3.1 L Globulin 3.20 Albumin/Globulin Ratio 0.96 Home Meds Reported Medications Albuterol Sulfate* (Ventolin HFA*) 18 Gm Hfa.aer.ad, 2 PUFF INHALATION Q4H, #1 INHALER 05/26/18 Ergocalciferol (Vitamin D2) (VITAMIN D2) 50,000 Unit Capsule, 79034 UNIT PO [id number], CAP 05/23/18 Warfarin Sodium* (Coumadin*) 5 Mg Tablet, 5 MG PO Q TUES,THUR,SAT, TAB 05/23/18 Warfarin Sodium* (Coumadin*) 4 Mg Tablet, 4 MG PO Q MON,WED,FRI,SUN, TAB 05/23/18 Furosemide* (Furosemide*) 20 Mg Tablet, 20 MG PO DAILY, #60 TAB TAKE Q 2 DAYS 05/23/18 Simvastatin* (Zocor*) 20 Mg Tablet, 20 MG PO QHS, #30 TAB 05/23/18 Ranitidine Hcl* (Ranitidine Hcl*) 150 Mg Tablet, 150 MG PO HS, #30 TAB 05/23/18 Acetaminophen (Mapap) 500 Mg Capsule, 500 MG PO BID PRN for PAIN, CAP 05/23/18 Levothyroxine Sodium* (Levothyroxine Sodium*) 50 Mcg Tablet, 50 MCG PO BEFORE BREAKFAST, #30 TAB 05/23/18 Spironolactone* (Aldactone*) 25 Mg Tablet, 25 MG PO DAILY, #30 TAB 05/23/18 Beclomethasone Dipropionate (Qvar Redihaler (40 MCG)) 10.6 Gm Hfa.aeroba, 10.6 GM IH DAILY, INH 05/23/18 Amlodipine Besylate* (Norvasc*) 5 Mg Tablet, 5 MG PO BID, TAB 05/23/18 Losartan-Hydrochlorothiazide (Losartan-HCTZ) 100-25 Mg Tab, 1 TAB PO DAILY, TAB 05/23/18 Medications Current Medications Acetaminophen (Tylenol Tab) 650 mg Q4H PRN PO NON-CARDIAC PAIN LEVEL (1-3) Last administered on 05/29/18at 10:26; Admin Dose 650 MG; Start 05/27/18 at 11:30 Morphine Sulfate (morphine) 2 mg Q2H PRN IV FOR NON CARDIAC PAIN (4-10); Start 05/27/18 at 11:30 Al Hydrox/Mg Hydrox/Simethicone (Mag-Al Plus) 30 ml Q4H PRN PO GASTROINTESTINAL UPSET; Start 05/27/18 at 11:30 Ondansetron HCl (Zofran Inj) 4 mg Q4H PRN IV NAUSEA AND/OR VOMITING Last administered on 05/27/18at 20:41; Admin Dose 4 MG; Start 05/27/18 at 11:30 Norepinephrine 250 ml @ 1.875 mls/ hr TITRATE IV Last administered on 05/27/18at 14:30; Admin Dose 3.75 MLS/HR; Start 05/27/18 at 15:00 Sodium Chloride 1,000 ml @ 75 mls/hr [id number] IV Last administered on 05/28/18at 20:15; Admin Dose 75 MLS/HR; Start 05/27/18 at 18:30 Amlodipine Besylate (Norvasc) 5 mg BID PO Last administered on 05/29/18at 10:27; Admin Dose 5 MG; Start 05/29/18 at 10:00 Levothyroxine Sodium (Synthroid) 50 mcg BEFORE BREAKFAST PO ; Start 05/30/18 at 07:00 Ranitidine HCl (Zantac) 150 mg HS PO ; Start 05/29/18 at 21:00 Mometasone Furoate (Asmanex) 1 puff DAILY INH Last administered on 05/29/18at 12:06; Admin Dose 1 PUFF; Start 05/29/18 at 11:00 Atorvastatin Calcium (Lipitor) 10 mg DAILY@21 PO ; Start 05/29/18 at 21:00 Assessment/Plan Hospital Course (Demo Recall) 1. CAD - s/p Left heart catheterization; Coronary angiography - no intervention done. 2. Retroperitoneal bleed: CT abdomen/pelvis showed moderate to large amount of hemoperitoneum. Today H/H with minimal drop - blood rx now- I had a lengthy discission with family - I think risk/benefit favors waiting another day to al low H/H stabilization - will check am Hg -if stable - will consider restarting full anti-coagulation tomorrow am. 3. HTN - BP in good range now. Well Rx. 4. Hypothyroidism - TSH followed by primary team. 5. Asthma - - bronchodilators as needed 6. Hx mitral valve replacement with mechanical valve 1999 - plan to anti-coag as soon as possible. CECILIA MOCTEZUMA MD May 29, 2018 13:31
[2018-05-29] MEDS: SOD CHLORIDE 0.9% 1,000 ML IV SCH (16:29)
[2018-05-29] MEDS: ATORVASTATIN 10 MG TAB PO SCH (20:13)
[2018-05-29] MEDS: RANITIDINE 150 MG TAB PO SCH (20:14)
[2018-05-30] VITALS (27 sets, daily range): BP systolic 73–141; BP diastolic 47–93; PULSE 62–84; RESP 18–39
[2018-05-30] MEDS: morphine 2 MG INJ IV PRN (03:55)
[2018-05-30] MEDS: SOD CHLORIDE 0.9% 1,000 ML IV SCH ×3 (04:34→23:13)
[2018-05-30] MEDS: LEVOTHYROXINE 50 MCG TAB PO SCH (06:38)
[2018-05-30] MEDS: AMLODIPINE 5 MG TAB PO SCH ×2 (08:44→21:17)
[2018-05-30] MEDS: MOMETASONE 0.24 GM INHALER INH SCH (08:44)
[2018-05-30] MEDS: ONDANSETRON 4 MG INJ IV PRN (09:29)
--- NOTE | 2018-05-30 10:10 | CONS ---
Assessment/Plan Assessment/Plan Hospital Course (Demo Recall) IMP: 1.cad s/p LHC with no sig obstructive cad 2.HTN 3.RP Bleed s/p transfusions now stable 4.HL 5.MVR-mechanical 6.anemia 7.Hypothyroid Recc: -ICU -Continue norvasc -Continue statin -Will challenge with heparin today and follow HGb closely Consultation Date/Type/Reason Admit Date/Time May 28, 2018 at 17:52 Initial Consult Date 05/28/18 Type of Consult Cardiology Reason for Consultation cad Requesting Provider: JULY VALENTIN MD Date/Time of Note DATE: 05/30/18 TIME: 10:05 Exam/Review of Systems Vital Signs Vitals Vital Signs Date Temp Pulse Resp B/P (MAP) Pulse Ox O2 O2 Flow FiO2 Time Delivery Rate 05/30/18 98.5 08:00 05/30/18 73 18 122/93 95 07:30 (103) 05/30/18 Room Air 07:00 Intake and Output 05/29/18 05/29/18 05/30/18 1515:00 23:00 07:00 IntakeIntake Total 1540 ml 1338 ml 450 ml OutputOutput Total 120 ml 75 ml 150 ml BalanceBalance 1420 ml 1263 ml 300 ml Exam Exam Review of Systems: CONSTITUTIONAL: No fevers, chills. PULMONARY: No sob CARDIOVASCULAR: No chest pain/palpitations GASTROINTESTINAL: No nausea/vomiting. GENITOURINARY: No hematuria/dysuria. MUSCULOSKELETAL: No myagias/arthalgias. PSYCHIATRIC: The patient denies depression. NEUROLOGIC: No weakness Constitutional: alert Psych: no complaints, anxiety Head: normocephalic ENMT: mucosa pink and moist Neck: supple, jvd (9) Respiratory: clear to auscultation Cardiovascular: regular rate and rhythm Gastrointestinal: soft, non-tender Musculoskeletal: muscle tone (normal) Extremities: edema (none) Skin: other (No focal deficits) Labs Result Diagram: 05/30/18 0459 05/30/18 0459 Results 24hrs Laboratory Tests Test 05/29/18 16:18 05/30/18 04:59 Hemoglobin 12.3 # 11.5 L Hematocrit 37.5 # 34.0 L White Blood Count 4.5 L Red Blood Count 3.66 #L Mean Corpuscular Volume 92.9 Mean Corpuscular Hemoglobin 31.4 Mean Corpuscular Hemoglobin Concent 33.8 Red Cell Distribution Width 14.2 Platelet Count 104 L Mean Platelet Volume 9.8 Immature Granulocytes % 0.700 H Neutrophils % 69.3 Lymphocytes % 20.2 Monocytes % 7.1 Eosinophils % 2.0 Basophils % 0.7 Nucleated Red Blood Cells % 0.0 Immature Granulocytes # 0.030 Neutrophils # 3.1 Lymphocytes # 0.9 Monocytes # 0.3 Eosinophils # 0.1 Basophils # 0.0 Nucleated Red Blood Cells # 0.0 Sodium Level 144 Potassium Level 3.5 Chloride Level 108 Carbon Dioxide Level 26 Anion Gap 10 Blood Urea Nitrogen 7 Creatinine 0.60 Est Glomerular Filtrat Rate mL/min > 60 Glucose Level 103 Calcium Level 8.3 L Total Bilirubin 0.7 Direct Bilirubin 0.00 Indirect Bilirubin 0.7 Aspartate Amino Transf (AST/SGOT) 27 Alanine Aminotransferase (ALT/SGPT) 17 Alkaline Phosphatase 44 Total Protein 6.3 Albumin 3.1 L Globulin 3.20 Albumin/Globulin Ratio 0.96 Medications Medications Current Medications Acetaminophen (Tylenol Tab) 650 mg Q4H PRN PO NON-CARDIAC PAIN LEVEL (1-3) Last administered on 05/29/18 10:26; Admin Dose 650 MG; Start 05/27/18 at 11:30 Morphine Sulfate (morphine) 2 mg Q2H PRN IV FOR NON CARDIAC PAIN (4-10) Last administered on 05/30/18 03:55; Admin Dose 2 MG; Start 05/27/18 at 11:30 Al Hydrox/Mg Hydrox/Simethicone (Mag-Al Plus) 30 ml Q4H PRN PO GASTROINTESTINAL UPSET; Start 05/27/18 at 11:30 Ondansetron HCl (Zofran Inj) 4 mg Q4H PRN IV NAUSEA AND/OR VOMITING Last administered on 05/30/18 09:29; Admin Dose 4 MG; Start 05/27/18 at 11:30 Norepinephrine 250 ml @ 1.875 mls/ hr TITRATE IV Last administered on 05/27/18 14:30; Admin Dose 3.75 MLS/HR; Start 05/27/18 at 15:00 Sodium Chloride 1,000 ml @ 75 mls/hr [id number] IV Last administered on 05/30/18 04:34; Admin Dose 75 MLS/HR; Start 05/27/18 at 18:30 Amlodipine Besylate (Norvasc) 5 mg BID PO Last administered on 05/30/18 08:44; Admin Dose 5 MG; Start 05/29/18 at 10:00 Levothyroxine Sodium (Synthroid) 50 mcg BEFORE BREAKFAST PO Last administered on 05/30/18at 06:38; Admin Dose 50 MCG; Start 05/30/18 at 07:00 Ranitidine HCl (Zantac) 150 mg HS PO Last administered on 05/29/18at 20:14; Admin Dose 150 MG; Start 05/29/18 at 21:00 Mometasone Furoate (Asmanex) 1 puff DAILY INH Last administered on 05/30/18 08:44; Admin Dose 1 PUFF; Start 05/29/18 at 11:00 Atorvastatin Calcium (Lipitor) 10 mg DAILY@21 PO Last administered on 05/29/18at 20:13; Admin Dose 10 MG; Start 05/29/18 at 21:00 CHRIS LAZAR May 30, 2018 10:10
[2018-05-30] MEDS ORDERED: HEPARIN 1000 UNITS/ML 10 ML INJ IV ONE (10:30)
[2018-05-30] MEDS ORDERED: HEPARIN 1000 UNITS/ML 10 ML INJ IV PRN (10:30)
[2018-05-30] MEDS: HEPARIN 25000 UNITS/250 ML 250 ML IV SCH (12:24)
--- NOTE | 2018-05-30 16:52 | PN ---
Date/Time of Note Date/Time of Note DATE: 05/30/18 TIME: 16:48 Assessment/Plan VTE Prophylaxis [place] [facility] [place] risk: 3 [place]CD [place] [facility] [place] Yes Pharmacological prophylaxis: heparin Lines/Catheters IV Catheter Type (from [facility]): Saline Lock Urinary Cath still in place: No Assessment/Plan Assessment/Plan -Coronary arteries, status post left heart catheterization with no significant obstructive coronary artery disease by Dr. Moreno on 05/27/2018. -Retroperitoneal bleed. Dr. Kilpatrick is following in vascular surgery consultation -Anemia of acute blood loss, status post blood transfusion, continue to monitor hemoglobin and hematocrit. -Status post mitral valve replacement with mechanical valve in 1999 in [facility]. Patient started on heparin drip. -HTN, continue Norvasc -Hyperlipidemia -Hypothyroidism, continue levothyroxine -History of asthma Further recommendations based on clinical course. Plan of care discussed with Dr. Painter. Result Diagram: 05/30/18 1501 05/30/18 0459 Results 24hrs Laboratory Tests Test 05/30/18 04:59 05/30/18 10:34 05/30/18 15:01 White Blood Count 4.5 L 4.4 L 4.4 L Red Blood Count 3.66 #L 3.69 L 3.77 L Hemoglobin 11.5 L 11.4 L 11.5 L Hematocrit 34.0 L 34.6 L 35.0 L Mean Corpuscular Volume 92.9 93.8 92.8 Mean Corpuscular Hemoglobin 31.4 30.9 30.5 Mean Corpuscular Hemoglobin Concent 33.8 32.9 32.9 Red Cell Distribution Width 14.2 14.3 14.4 Platelet Count 104 L 101 L 107 L Mean Platelet Volume 9.8 11.3 H 10.0 Immature Granulocytes % 0.700 H 0.700 H 0.200 Neutrophils % 69.3 77.1 H 68.5 Lymphocytes % 20.2 14.4 L 20.9 Monocytes % 7.1 5.5 7.0 Eosinophils % 2.0 1.6 2.9 Basophils % 0.7 0.7 0.5 Nucleated Red Blood Cells % 0.0 0.0 0.0 Immature Granulocytes # 0.030 0.030 0.010 Neutrophils # 3.1 3.4 3.0 Lymphocytes # 0.9 0.6 L 0.9 Monocytes # 0.3 0.2 L 0.3 Eosinophils # 0.1 0.1 0.1 Basophils # 0.0 0.0 0.0 Nucleated Red Blood Cells # 0.0 0.0 0.0 Sodium Level 144 Potassium Level 3.5 Chloride Level 108 Carbon Dioxide Level 26 Anion Gap 10 Blood Urea Nitrogen 7 Creatinine 0.60 Est Glomerular Filtrat Rate mL/min > 60 Glucose Level 103 Calcium Level 8.3 L Total Bilirubin 0.7 Direct Bilirubin 0.00 Indirect Bilirubin 0.7 Aspartate Amino Transf (AST/SGOT) 27 Alanine Aminotransferase (ALT/SGPT) 17 Alkaline Phosphatase 44 Total Protein 6.3 Albumin 3.1 L Globulin 3.20 Albumin/Globulin Ratio 0.96 Prothrombin Time 14.3 Prothrombin Time Ratio 1.1 INR International Normalized Ratio 1.10 Activated Partial Thromboplast Time 22.7 L Exam/Review of Systems Exam Vitals Vital Signs Date Temp Pulse Resp B/P (MAP) Pulse Ox O2 O2 Flow FiO2 Time Delivery Rate 05/30/18 74 16:00 05/30/18 26 101/52 91 14:00 (68) 05/30/18 98.7 12:00 05/30/18 Room Air 07:00 Intake and Output 05/29/18 05/29/18 05/30/18 1515:00 23:00 07:00 IntakeIntake Total 1540 ml 1338 ml 450 ml OutputOutput Total 120 ml 75 ml 150 ml BalanceBalance 1420 ml 1263 ml 300 ml Constitutional: alert, oriented Respiratory: clear to auscultation Cardiovascular: regular rate and rhythm Gastrointestinal: soft, non-tender Musculoskeletal: nl extremities to inspection Extremities: normal pulses Neurological: nl mental status Results Results 24hrs Laboratory Tests Test 05/30/18 04:59 05/30/18 10:34 05/30/18 15:01 White Blood Count 4.5 L 4.4 L 4.4 L Red Blood Count 3.66 #L 3.69 L 3.77 L Hemoglobin 11.5 L 11.4 L 11.5 L Hematocrit 34.0 L 34.6 L 35.0 L Mean Corpuscular Volume 92.9 93.8 92.8 Mean Corpuscular Hemoglobin 31.4 30.9 30.5 Mean Corpuscular Hemoglobin Concent 33.8 32.9 32.9 Red Cell Distribution Width 14.2 14.3 14.4 Platelet Count 104 L 101 L 107 L Mean Platelet Volume 9.8 11.3 H 10.0 Immature Granulocytes % 0.700 H 0.700 H 0.200 Neutrophils % 69.3 77.1 H 68.5 Lymphocytes % 20.2 14.4 L 20.9 Monocytes % 7.1 5.5 7.0 Eosinophils % 2.0 1.6 2.9 Basophils % 0.7 0.7 0.5 Nucleated Red Blood Cells % 0.0 0.0 0.0 Immature Granulocytes # 0.030 0.030 0.010 Neutrophils # 3.1 3.4 3.0 Lymphocytes # 0.9 0.6 L 0.9 Monocytes # 0.3 0.2 L 0.3 Eosinophils # 0.1 0.1 0.1 Basophils # 0.0 0.0 0.0 Nucleated Red Blood Cells # 0.0 0.0 0.0 Sodium Level 144 Potassium Level 3.5 Chloride Level 108 Carbon Dioxide Level 26 Anion Gap 10 Blood Urea Nitrogen 7 Creatinine 0.60 Est Glomerular Filtrat Rate mL/min > 60 Glucose Level 103 Calcium Level 8.3 L Total Bilirubin 0.7 Direct Bilirubin 0.00 Indirect Bilirubin 0.7 Aspartate Amino Transf (AST/SGOT) 27 Alanine Aminotransferase (ALT/SGPT) 17 Alkaline Phosphatase 44 Total Protein 6.3 Albumin 3.1 L Globulin 3.20 Albumin/Globulin Ratio 0.96 Prothrombin Time 14.3 Prothrombin Time Ratio 1.1 INR International Normalized Ratio 1.10 Activated Partial Thromboplast Time 22.7 L Medications Medication Current Medications Acetaminophen (Tylenol Tab) 650 mg Q4H PRN PO NON-CARDIAC PAIN LEVEL (1-3) Last administered on 05/29/18at 10:26; Admin Dose 650 MG; Start 05/27/18 at 11:30 Morphine Sulfate (morphine) 2 mg Q2H PRN IV FOR NON CARDIAC PAIN (4-10) Last administered on 05/30/18at 03:55; Admin Dose 2 MG; Start 05/27/18 at 11:30 Al Hydrox/Mg Hydrox/Simethicone (Mag-Al Plus) 30 ml Q4H PRN PO GASTROINTESTINAL UPSET; Start 05/27/18 at 11:30 Ondansetron HCl (Zofran Inj) 4 mg Q4H PRN IV NAUSEA AND/OR VOMITING Last administered on 05/30/18 09:29; Admin Dose 4 MG; Start 05/27/18 at 11:30 Norepinephrine 250 ml @ 1.875 mls/ hr TITRATE IV Last administered on 05/27/18 14:30; Admin Dose 3.75 MLS/HR; Start 05/27/18 at 15:00 Sodium Chloride 1,000 ml @ 75 mls/hr [id number] IV Last administered on 05/30/18 04:34; Admin Dose 75 MLS/HR; Start 05/27/18 at 18:30 Amlodipine Besylate (Norvasc) 5 mg BID PO Last administered on 05/30/18 08:44; Admin Dose 5 MG; Start 05/29/18 at 10:00 Levothyroxine Sodium (Synthroid) 50 mcg BEFORE BREAKFAST PO Last administered on 05/30/18 06:38; Admin Dose 50 MCG; Start 05/30/18 at 07:00 Ranitidine HCl (Zantac) 150 mg HS PO Last administered on 05/29/18 20:14; Admin Dose 150 MG; Start 05/29/18 at 21:00 Mometasone Furoate (Asmanex) 1 puff DAILY INH Last administered on 05/30/18 08:44; Admin Dose 1 PUFF; Start 05/29/18 at 11:00 Atorvastatin Calcium (Lipitor) 10 mg DAILY@21 PO Last administered on 05/29/18 20:13; Admin Dose 10 MG; Start 05/29/18 at 21:00 Heparin Sodium (Porcine) (Heparin (1000 Units/ml)) 3,800 unit PER PROTOCOL PRN IV aPTT<47; Start 05/30/18 at 10:30 Heparin Sodium (Porcine) 250 ml @ 7.5 mls/hr PER PROTOCOL IV Last administered on 05/30/18 12:24; Admin Dose 7.5 MLS/HR; Start 05/30/18 at 10:30 KRISTY MCCULLOUGH May 30, 2018 16:52
--- NOTE | 2018-05-30 18:16 | PN ---
Date/Time of Note Date/Time of Note DATE: 05/30/18 TIME: 18:15 Assessment/Plan Lines/Catheters IV Catheter Type (from Nrsg): Saline Lock [place] in Place (from Nrsg): No Assessment/Plan Assessment/Plan Retroperitoneal bleeding Hemoglobin stable Hemodynamically stable Will monitor hemoglobin levels Subjective 24 Hr Interval Summary Constitutional: improved Pain Control: mild Exam/Review of Systems Vital Signs Vitals Vital Signs Date Temp Pulse Resp B/P (MAP) Pulse Ox O2 O2 Flow FiO2 Time Delivery Rate 05/30/18 75 24 106/72 91 18:00 (83) 05/30/18 99.2 16:00 05/30/18 Room Air 07:00 Intake and Output 05/29/18 05/29/18 05/30/18 1515:00 23:00 07:00 IntakeIntake Total 1540 ml 1338 ml 450 ml OutputOutput Total 120 ml 75 ml 150 ml BalanceBalance 1420 ml 1263 ml 300 ml Exam Eyes: nl conjunctiva, EOMI, nl lids, nl sclera ENMT: nl external ears & nose, nl lips & teeth, nl nasal mucosa & septum, mucosa pink and moist Neck: supple, non-tender Respiratory: clear to auscultation, normal air movement Cardiovascular: regular rate and rhythm, nl pulses Results Result Diagram: 05/30/18 1501 05/30/18 0459 KIRILL CHRISTIAN MD May 30, 2018 18:16
[2018-05-30] MEDS: RANITIDINE 150 MG TAB PO SCH (21:17)
[2018-05-30] MEDS: ATORVASTATIN 10 MG TAB PO SCH (21:17)
[2018-05-30] MEDS: ACETAMINOPHEN 325 MG TAB PO PRN (21:50)
[2018-05-31] VITALS (32 sets, daily range): BP systolic 92–151; BP diastolic 45–90; PULSE 58–101; RESP 13–36
[2018-05-31] MEDS: LEVOTHYROXINE 50 MCG TAB PO SCH (06:47)
[2018-05-31] MEDS: ACETAMINOPHEN 325 MG TAB PO PRN ×3 (07:21→23:35)
[2018-05-31] MEDS ORDERED: FUROSEMIDE 20 MG INJ IV ONE (08:30)
[2018-05-31] MEDS: MOMETASONE 0.24 GM INHALER INH SCH (09:06)
[2018-05-31] MEDS: AMLODIPINE 5 MG TAB PO SCH ×2 (09:07→20:45)
--- NOTE | 2018-05-31 09:10 | CONS ---
Consult Date/Type/Reason Admit Date/Time May 28, 2018 at 17:52 Initial Consult Date Requesting Provider: JULY VALENTIN MD Date/Time of Note DATE: 05/31/18 TIME: 09:08 Subjective No acute events- tolerated heparin , will bridge to coumadin now. ROS: No fever, no chills, no nausea, no vomiting, no diarrhea/constipation No recent weight changes No chest pain, no PND, no orthopnea - mild SOB No dizziness, blurred vision No thirst, no heat or cold intolerance Objective Vitals Vital Signs Date Temp Pulse Resp B/P (MAP) Pulse Ox O2 O2 Flow FiO2 Time Delivery Rate 05/31/18 97.3 07:21 05/31/18 68 22 128/63 99 Nasal 05:00 (84) Cannula Intake and Output 05/30/18 05/30/18 05/31/18 1515:00 23:00 07:00 IntakeIntake Total 120 ml 1279 ml 567 ml OutputOutput Total 225 ml 350 ml 200 ml BalanceBalance -105 ml 929 ml 367 ml Exam General: WN/WD/NAD, AOx 3 HEENT: Unicetric/atraumatic/EOMI (follow commands) NECK: JVD elevated, no thyromegaly Lymph: no lymphadenopathy HEART: regular with no S3, II/ systolic murmur at apex, Mech click LUNGS: Coarse sounds ABD: soft, NT, ND, +BS : Intact Neuro: non focal SKIN: chronic changes EXT: trace edema Results/Medications Result Diagram: 05/31/1815 05/31/18 0515 Results 24 hrs Laboratory Tests Test 05/30/18 10:34 05/30/18 15:01 05/30/18 17:49 05/31/18 00:47 White Blood Count 4.4 L 4.4 L Red Blood Count 3.69 L 3.77 L Hemoglobin 11.4 L 11.5 L Hematocrit 34.6 L 35.0 L Mean Corpuscular 93.8 92.8 Volume Mean Corpuscular 30.9 30.5 Hemoglobin Mean Corpuscular 32.9 32.9 Hemoglobin Concen t Red Cell 14.3 14.4 Distribution Width Platelet Count 101 L 107 L Mean Platelet 11.3 H 10.0 Volume Immature 0.700 H 0.200 Granulocytes % Neutrophils % 77.1 H 68.5 Lymphocytes % 14.4 L 20.9 Monocytes % 5.5 7.0 Eosinophils % 1.6 2.9 Basophils % 0.7 0.5 Nucleated Red 0.0 0.0 Blood Cells % Immature 0.030 0.010 Granulocytes # Neutrophils # 3.4 3.0 Lymphocytes # 0.6 L 0.9 Monocytes # 0.2 L 0.3 Eosinophils # 0.1 0.1 Basophils # 0.0 0.0 Nucleated Red 0.0 0.0 Blood Cells # Prothrombin Time 14.3 Prothrombin Time 1.1 Ratio INR International 1.10 Normalized Ratio Activated 22.7 L 105.9 *H 58.4 H Partial Thrombopl ast Time Test 05/31/18 05:02 05/31/18 05:15 05/31/18 07:55 Lab Scanned BLOOD TRANSFUSIO Report N White Blood Count 3.7 L Red Blood Count 3.68 L Hemoglobin 11.4 L Hematocrit 34.7 L Mean Corpuscular 94.3 Volume Mean Corpuscular 31.0 Hemoglobin Mean Corpuscular 32.9 Hemoglobin Concen t Red Cell 14.2 Distribution Width Platelet Count 107 L Mean Platelet 10.0 Volume Immature 0.800 H Granulocytes % Neutrophils % 64.6 Lymphocytes % 22.8 Monocytes % 7.8 Eosinophils % 3.5 Basophils % 0.5 Nucleated Red 0.0 Blood Cells % Immature 0.030 Granulocytes # Neutrophils # 2.4 Lymphocytes # 0.9 Monocytes # 0.3 Eosinophils # 0.1 Basophils # 0.0 Nucleated Red 0.0 Blood Cells # Sodium Level 142 Potassium Level 3.6 Chloride Level 113 H Carbon Dioxide 28 Level Anion Gap 1 #L Blood Urea 8 Nitrogen Creatinine 0.56 Est Glomerular > 60 Filtrat Rate mL/min Glucose Level 95 Calcium Level 8.4 Total Bilirubin 0.6 Direct Bilirubin 0.00 Indirect 0.6 Bilirubin Aspartate Amino 28 Transf (AST/SGOT) Alanine 22 Aminotransferase (ALT/SGPT) Alkaline 48 Phosphatase Total Protein 6.2 Albumin 3.0 L Globulin 3.20 Albumin/Globulin 0.93 Ratio Activated 53.5 H Partial Thrombopl ast Time Home Meds Reported Medications Albuterol Sulfate* (Ventolin HFA*) 18 Gm Hfa.aer.ad, 2 PUFF INHALATION Q4H, #1 INHALER 05/26/18 Ergocalciferol (Vitamin D2) (VITAMIN D2) 50,000 Unit Capsule, 01426 UNIT PO [id number], CAP 05/23/18 Warfarin Sodium* (Coumadin*) 5 Mg Tablet, 5 MG PO Q TUES,THUR,SAT, TAB 05/23/18 Warfarin Sodium* (Coumadin*) 4 Mg Tablet, 4 MG PO Q MON,WED,FRI,SUN, TAB 05/23/18 Furosemide* (Furosemide*) 20 Mg Tablet, 20 MG PO DAILY, #60 TAB TAKE Q 2 DAYS 05/23/18 Simvastatin* (Zocor*) 20 Mg Tablet, 20 MG PO QHS, #30 TAB 05/23/18 Ranitidine Hcl* (Ranitidine Hcl*) 150 Mg Tablet, 150 MG PO HS, #30 TAB 05/23/18 Acetaminophen (Mapap) 500 Mg Capsule, 500 MG PO BID PRN for PAIN, CAP 05/23/18 Levothyroxine Sodium* (Levothyroxine Sodium*) 50 Mcg Tablet, 50 MCG PO BEFORE BREAKFAST, #30 TAB 05/23/18 Spironolactone* (Aldactone*) 25 Mg Tablet, 25 MG PO DAILY, #30 TAB 05/23/18 Beclomethasone Dipropionate (Qvar Redihaler (40 MCG)) 10.6 Gm Hfa.aeroba, 10.6 GM IH DAILY, INH 05/23/18 Amlodipine Besylate* (Norvasc*) 5 Mg Tablet, 5 MG PO BID, TAB 05/23/18 Losartan-Hydrochlorothiazide (Losartan-HCTZ) 100-25 Mg Tab, 1 TAB PO DAILY, TAB 05/23/18 Medications Current Medications Acetaminophen (Tylenol Tab) 650 mg Q4H PRN PO NON-CARDIAC PAIN LEVEL (1-3) Last administered on 05/31/18at 07:21; Admin Dose 650 MG; Start 05/27/18 at 11:30 Morphine Sulfate (morphine) 2 mg Q2H PRN IV FOR NON CARDIAC PAIN (4-10) Last administered on 05/30/18at 03:55; Admin Dose 2 MG; Start 05/27/18 at 11:30 Al Hydrox/Mg Hydrox/Simethicone (Mag-Al Plus) 30 ml Q4H PRN PO GASTROINTESTINAL UPSET; Start 05/27/18 at 11:30 Ondansetron HCl (Zofran Inj) 4 mg Q4H PRN IV NAUSEA AND/OR VOMITING Last administered on 05/30/18 09:29; Admin Dose 4 MG; Start 05/27/18 at 11:30 Norepinephrine 250 ml @ 1.875 mls/ hr TITRATE IV Last administered on 05/27/18 14:30; Admin Dose 3.75 MLS/HR; Start 05/27/18 at 15:00 Sodium Chloride 1,000 ml @ 75 mls/hr [id number] IV Last administered on 05/30/18 23:13; Admin Dose 75 MLS/HR; Start 05/27/18 at 18:30 Amlodipine Besylate (Norvasc) 5 mg BID PO Last administered on 05/30/18 21:17; Admin Dose 5 MG; Start 05/29/18 at 10:00 Levothyroxine Sodium (Synthroid) 50 mcg BEFORE BREAKFAST PO Last administered on 05/31/18 06:47; Admin Dose 50 MCG; Start 05/30/18 at 07:00 Ranitidine HCl (Zantac) 150 mg HS PO Last administered on 05/30/18 21:17; Admin Dose 150 MG; Start 05/29/18 at 21:00 Mometasone Furoate (Asmanex) 1 puff DAILY INH Last administered on 05/30/18 08:44; Admin Dose 1 PUFF; Start 05/29/18 at 11:00 Atorvastatin Calcium (Lipitor) 10 mg DAILY@21 PO Last administered on 05/30/18 21:17; Admin Dose 10 MG; Start 05/29/18 at 21:00 Heparin Sodium (Porcine) (Heparin (1000 Units/ml)) 3,800 unit PER PROTOCOL PRN IV aPTT<47; Start 05/30/18 at 10:30 Heparin Sodium (Porcine) 250 ml @ 7.5 mls/hr PER PROTOCOL IV Last administered on 05/30/18 12:24; Admin Dose 7.5 MLS/HR; Start 05/30/18 at 10:30 Assessment/Plan Hospital Course (Demo Recall) 1. CAD - s/p Left heart catheterization; Coronary angiography - no intervention done. NO CP now. 2. Retroperitoneal bleed: CT abdomen/pelvis showed moderate to large amount of hemoperitoneum. Today H/H with minimal drop - blood rx now- I had a lengthy discission with family - I think risk/benefit favors waiting another day to allow H/H stabilization - will check am Hg -if stable - back on heparin + coumadin load. 3. HTN - BP in good range now. Well Rx. 4. Hypothyroidism - TSH followed by primary team. 5. Asthma - - bronchodilators as needed 6. Hx mitral valve replacement with mechanical valve 1999 - back to anti-coag. 7. Mild SOB - spot lasix x 1 now. CECILIA MOCTEZUMA MD May 31, 2018 09:10
[2018-05-31] MEDS: SOD CHLORIDE 0.9% 1,000 ML IV SCH ×2 (16:06→20:48)
[2018-05-31] MEDS: WARFARIN 5 MG TAB NGT SCH (17:18)
--- NOTE | 2018-05-31 17:48 | PN ---
Date/Time of Note Date/Time of Note DATE: 05/31/18 TIME: 17:47 Assessment/Plan Lines/Catheters IV Catheter Type (from Nrsg): Saline Lock [place] in Place (from Nrsg): No Assessment/Plan Assessment/Plan Respiratory failure Status post trach Patient improving Will remove sutures Subjective 24 Hr Interval Summary Constitutional: improved Pain Control: mild Exam/Review of Systems Vital Signs Vitals Vital Signs Date Temp Pulse Resp B/P (MAP) Pulse Ox O2 O2 Flow FiO2 Time Delivery Rate 05/31/18 98.1 17:16 05/31/18 89 16:00 05/31/18 32 125/69 97 Nasal 12:00 (87) Cannula Intake and Output 05/30/18 05/30/18 05/31/18 1515:00 23:00 07:00 IntakeIntake Total 120 ml 1279 ml 648 ml OutputOutput Total 225 ml 350 ml 350 ml BalanceBalance -105 ml 929 ml 298 ml Exam Eyes: nl conjunctiva, EOMI, nl lids, nl sclera ENMT: nl external ears & nose, nl lips & teeth, nl nasal mucosa & septum, mucosa pink and moist Neck: supple, non-tender Respiratory: clear to auscultation, normal air movement Cardiovascular: regular rate and rhythm, nl pulses Gastrointestinal: soft, nl liver, spleen, non-tender Musculoskeletal: nl extremities to inspection, nl gait and stance Results Result Diagram: 05/31/18 1608 05/31/18 0515 KIRILL CHRISTIAN MD May 31, 2018 17:48
[2018-05-31] MEDS: ATORVASTATIN 10 MG TAB PO SCH (20:44)
[2018-05-31] MEDS: RANITIDINE 150 MG TAB PO SCH (20:45)
[2018-06-01] VITALS (23 sets, daily range): BP systolic 101–143; BP diastolic 54–78; PULSE 66–104; RESP 21–39
[2018-06-01] MEDS: LEVOTHYROXINE 50 MCG TAB PO SCH ×2 (05:36→07:54)
--- NOTE | 2018-06-01 06:29 | PN ---
DATE: 05/31/2018 LOCATION: ICU. SUBJECTIVE: Follow up on and to follow up on retroperitoneal bleed, mechanical mitral valve replacem ent, hypertension, hypothyroidism, anemia due to acute blood loss. The patient is tolerating heparin . He denies any chest pain. No reported bleeding from any site. Vital signs have remained stable. PHYSICAL EXAMINATION: GENERAL: The patient is awake, alert. VITAL SIGNS: Temperature 98, pulse 89, respiration 24, blood pressure 127/61, O2 saturation 97 on na genaro cannula. HEENT: No eye discharge or redness. Conjunctivae normal. Oropharynx clear. NECK: No mass. CHEST: Fairly clear. CARDIOVASCULAR: S1, S2 normal. ABDOMEN: Soft. Mild residual lower abdominal tenderness, no guarding, rigidity. Bowel sounds prese nt. EXTREMITIES: No leg edema. NEUROLOGIC: The patient is awake, alert, fairly oriented with no gross focal deficit. LABORATORY DATA: WBC 4.9, hemoglobin 11.7, platelet 116. Sodium 142, potassium 3.6, BUN 8, creatini ne 0.5. Liver enzymes normal. INR still 1. IMPRESSION: 1. History of coronary artery disease status post left heart catheterization with no significant obs tructive coronary artery disease. Continue to monitor. 2. Hypertension. Blood pressure reasonably controlled with Norvasc. 3. Hypothyroidism. Continue Synthroid. 4. Dyslipidemia. Continue Lipitor. 5. Prosthetic mitral valve. Continue heparin and Coumadin. DISCHARGE PLANNING: Once the patient's INR is therapeutic she will be discharged home. We will cont inue to monitor CBC. If thrombocytopenia worsens, then we will obtain hematology/oncology consultati on also. Dictated By: JULY STUBBS/SAVANNAH Conf#: [id number] DID#: [id number] CC: CHRIS LAZAR MD;*EndCC*
[2018-06-01] MEDS: MOMETASONE 0.24 GM INHALER INH SCH (07:54)
[2018-06-01] MEDS: ACETAMINOPHEN 325 MG TAB PO PRN ×2 (07:54→12:08)
[2018-06-01] MEDS: AMLODIPINE 5 MG TAB PO SCH ×2 (08:02→20:47)
--- NOTE | 2018-06-01 11:35 | PN ---
Date/Time of Note Date/Time of Note DATE: 06/01/18 TIME: 11:30 Assessment/Plan VTE Prophylaxis Risk score (from Ns)>0 risk: 8 SCD applied (from Ns): Yes Pharmacological prophylaxis: heparin, warfarin tx Lines/Catheters IV [facility]from [facility] Saline Lock Urinary Cath still in place: No Assessment/Plan Hospital Course Patient is awake alert complains of mild abdominal tenderness, able to tolerate diet without nausea and vomiting. Right femora site no bleeding no hematoma in tact dressing. Stable hemoglobin. Assessment/Plan -Coronary arteries, status post left heart catheterization with no significant obstructive coronary artery disease by Dr. Moreno on 05/27/2018. -Retroperitoneal bleed. Dr. Kilpatrick is following in vascular surgery consultation -Anemia of acute blood loss, status post blood transfusion, continue to monitor hemoglobin and hematocrit. -Status post mitral valve replacement with mechanical valve in 1999 in [facility]. Continue heparin drip and Coumadin. Monitor PT, PTT and INR. -HTN, continue Norvasc -Hyperlipidemia -Hypothyroidism, continue levothyroxine -History of asthma Critical care time spent is 35 minutes Further recommendations based on clinical course. Plan of care discussed with Dr. Painter. Result Diagram: 06/01/18 0430 05/31/18 0515 Results 24hrs Laboratory Tests Test 05/31/18 14:22 05/31/18 16:08 05/31/18 22:02 06/01/18 04:30 Prothrombin Time 14.1 15.0 H 15.1 H Prothrombin Time 1.1 1.2 1.2 Ratio INR International 1.08 1.17 1.18 Normalized Ratio Activated 54.3 H 79.5 *H 84.6 *H Partial Thromboplast Time White Blood Count 4.9 # 4.3 L Red Blood Count 3.78 L 3.68 L Hemoglobin 11.7 L 11.4 L Hematocrit 35.3 L 34.6 L Mean Corpuscular 93.4 94.0 Volume Mean Corpuscular 31.0 31.0 Hemoglobin Mean Corpuscular 33.1 32.9 Hemoglobin Concent Red Cell 14.1 14.0 Distribution Width Platelet Count 116 L 118 L Mean Platelet Volume 9.7 10.1 Immature 0.200 0.200 Granulocytes % Neutrophils % 77.1 H 71.1 Lymphocytes % 13.6 L 18.3 Monocytes % 6.4 7.3 Eosinophils % 2.3 2.6 Basophils % 0.4 0.5 Nucleated Red Blood 0.0 0.0 Cells % Immature 0.010 0.010 Granulocytes # Neutrophils # 3.7 3.0 Lymphocytes # 0.7 L 0.8 Monocytes # 0.3 0.3 Eosinophils # 0.1 0.1 Basophils # 0.0 0.0 Nucleated Red Blood 0.0 0.0 Cells # Exam/Review of Systems Exam Vitals Vital Signs Date Temp Pulse Resp B/P (MAP) Pulse Ox O2 O2 Flow FiO2 Time Delivery Rate 06/01/18 85 32 119/78 97 Nasal 10:00 (92) Cannula 06/01/18 98.0 08:52 06/01/18 2.0 08:00 Intake and Output 05/31/18 05/31/18 06/01/18 1515:00 23:00 07:00 IntakeIntake Total 1254.8 ml 561.3 ml 920 ml OutputOutput Total 1340 ml 300 ml 490 ml BalanceBalance -85.2 ml 261.3 ml 430 ml Exam Constitutional: alert, oriented Respiratory: clear to auscultation Cardiovascular: regular rate and rhythm Gastrointestinal: soft, non-tender Musculoskeletal: nl extremities to inspection Extremities: normal pulses Neurological: nl mental status Results Results 24hrs Laboratory Tests Test 05/31/18 14:22 05/31/18 16:08 05/31/18 22:02 06/01/18 04:30 Prothrombin Time 14.1 15.0 H 15.1 H Prothrombin Time 1.1 1.2 1.2 Ratio INR International 1.08 1.17 1.18 Normalized Ratio Activated 54.3 H 79.5 *H 84.6 *H Partial Thromboplast Time White Blood Count 4.9 # 4.3 L Red Blood Count 3.78 L 3.68 L Hemoglobin 11.7 L 11.4 L Hematocrit 35.3 L 34.6 L Mean Corpuscular 93.4 94.0 Volume Mean Corpuscular 31.0 31.0 Hemoglobin Mean Corpuscular 33.1 32.9 Hemoglobin Concent Red Cell 14.1 14.0 Distribution Width Platelet Count 116 L 118 L Mean Platelet Volume 9.7 10.1 Immature 0.200 0.200 Granulocytes % Neutrophils % 77.1 H 71.1 Lymphocytes % 13.6 L 18.3 Monocytes % 6.4 7.3 Eosinophils % 2.3 2.6 Basophils % 0.4 0.5 Nucleated Red Blood 0.0 0.0 Cells % Immature 0.010 0.010 Granulocytes # Neutrophils # 3.7 3.0 Lymphocytes # 0.7 L 0.8 Monocytes # 0.3 0.3 Eosinophils # 0.1 0.1 Basophils # 0.0 0.0 Nucleated Red Blood 0.0 0.0 Cells # Medications Medication Current Medications Acetaminophen (Tylenol Tab) 650 mg Q4H PRN PO NON-CARDIAC PAIN LEVEL (1-3) Last administered on 06/01/18 07:54; Admin Dose 650 MG; Start 05/27/18 at 11:30 Morphine Sulfate (morphine) 2 mg Q2H PRN IV FOR NON CARDIAC PAIN (4-10) Last administered on 05/30/18 03:55; Admin Dose 2 MG; Start 05/27/18 at 11:30 Al Hydrox/Mg Hydrox/Simethicone (Mag-Al Plus) 30 ml Q4H PRN PO GASTROINTESTINAL UPSET; Start 05/27/18 at 11:30 Ondansetron HCl (Zofran Inj) 4 mg Q4H PRN IV NAUSEA AND/OR VOMITING Last administered on 05/30/18 09:29; Admin Dose 4 MG; Start 05/27/18 at 11:30 Norepinephrine 250 ml @ 1.875 mls/ hr TITRATE IV Last administered on 05/27/18 14:30; Admin Dose 3.75 MLS/HR; Start 05/27/18 at 15:00 Sodium Chloride 1,000 ml @ 75 mls/hr [id number] IV Last administered on 05/31/18 20:48; Admin Dose 75 MLS/HR; Start 05/27/18 at 18:30 Amlodipine Besylate (Norvasc) 5 mg BID PO Last administered on 06/01/18 08:02; Admin Dose 5 MG; Start 05/29/18 at 10:00 Levothyroxine Sodium (Synthroid) 50 mcg BEFORE BREAKFAST PO Last administered on 06/01/18 07:54; Admin Dose 50 MCG; Start 05/30/18 at 07:00 Ranitidine HCl (Zantac) 150 mg HS PO Last administered on 05/31/18 20:45; Admin Dose 150 MG; Start 05/29/18 at 21:00 Mometasone Furoate (Asmanex) 1 puff DAILY INH Last administered on 06/01/18 07:54; Admin Dose 1 PUFF; Start 05/29/18 at 11:00 Atorvastatin Calcium (Lipitor) 10 mg DAILY@21 PO Last administered on 05/31/18at 20:44; Admin Dose 10 MG; Start 05/29/18 at 21:00 Heparin Sodium (Porcine) (Heparin (1000 Units/ml)) 3,800 unit PER PROTOCOL PRN IV aPTT<47; Start 05/30/18 at 10:30 Heparin Sodium (Porcine) 250 ml @ 7.5 mls/hr PER PROTOCOL IV Last administered on 05/30/18at 12:24; Admin Dose 7.5 MLS/HR; Start 05/30/18 at 10:30 Warfarin Sodium (Coumadin) 5 mg DAILY@17 NGT Last administered on 05/31/18at 17:18; Admin Dose 5 MG; Start 05/31/18 at 17:00 KRISTY MCCULLOUGH Jun 01, 2018 11:35
--- NOTE | 2018-06-01 12:39 | CONS ---
Assessment/Plan Assessment/Plan Hospital Course (Demo Recall) IMP: 1.cad s/p LHC with no sig obstructive cad 2.HTN 3.RP Bleed s/p transfusions now stable and tolerating heparin/coumadin loading 4.HL 5.MVR-mechanical 6.anemia 7.Hypothyroid 8. FOURNIER Recc: -ICU -Continue norvasc -Continue statin -Contineu heparin to couam,din loading and continue to follow HGB which has been very stable -Check non-contrast head CT Consultation Date/Type/Reason Admit Date/Time May 28, 2018 at 17:52 Initial Consult Date 05/28/18 Type of Consult Cardiology Reason for Consultation MVR/ Requesting Provider: JULY VALENTIN MD Date/Time of Note DATE: 06/01/18 TIME: 12:37 Exam/Review of Systems Vital Signs Vitals Vital Signs Date Temp Pulse Resp B/P (MAP) Pulse Ox O2 O2 Flow FiO2 Time Delivery Rate 06/01/18 97.9 12:08 06/01/18 79 31 120/54 95 Nasal 11:00 (76) Cannula 06/01/18 2.0 08:00 Intake and Output 05/31/18 05/31/18 06/01/18 1515:00 23:00 07:00 IntakeIntake Total 1254.8 ml 561.3 ml 920 ml OutputOutput Total 1340 ml 300 ml 490 ml BalanceBalance -85.2 ml 261.3 ml 430 ml Exam Exam Review of Systems: CONSTITUTIONAL: No fevers, chills. PULMONARY: No sob CARDIOVASCULAR: No chest pain/palpitations GASTROINTESTINAL: No nausea/vomiting. GENITOURINARY: No hematuria/dysuria. MUSCULOSKELETAL: No myagias/arthalgias. PSYCHIATRIC: The patient denies depression. NEUROLOGIC: No weakness Constitutional: alert Psych: no complaints Head: normocephalic ENMT: mucosa pink and moist Neck: supple, jvd (9 cm water) Respiratory: diminished breath sounds Cardiovascular: regular rate and rhythm Gastrointestinal: soft, non-tender Musculoskeletal: muscle weakness (mild generalized) Extremities: edema (none) Labs Result Diagram: 06/01/18 0430 05/31/18 0515 Results 24hrs Laboratory Tests Test 05/31/18 14:22 05/31/18 16:08 05/31/18 22:02 06/01/18 04:30 Prothrombin Time 14.1 15.0 H 15.1 H Prothrombin Time 1.1 1.2 1.2 Ratio INR International 1.08 1.17 1.18 Normalized Ratio Activated 54.3 H 79.5 *H 84.6 *H Partial Thromboplast Time White Blood Count 4.9 # 4.3 L Red Blood Count 3.78 L 3.68 L Hemoglobin 11.7 L 11.4 L Hematocrit 35.3 L 34.6 L Mean Corpuscular 93.4 94.0 Volume Mean Corpuscular 31.0 31.0 Hemoglobin Mean Corpuscular 33.1 32.9 Hemoglobin Concent Red Cell 14.1 14.0 Distribution Width Platelet Count 116 L 118 L Mean Platelet Volume 9.7 10.1 Immature 0.200 0.200 Granulocytes % Neutrophils % 77.1 H 71.1 Lymphocytes % 13.6 L 18.3 Monocytes % 6.4 7.3 Eosinophils % 2.3 2.6 Basophils % 0.4 0.5 Nucleated Red Blood 0.0 0.0 Cells % Immature 0.010 0.010 Granulocytes # Neutrophils # 3.7 3.0 Lymphocytes # 0.7 L 0.8 Monocytes # 0.3 0.3 Eosinophils # 0.1 0.1 Basophils # 0.0 0.0 Nucleated Red Blood 0.0 0.0 Cells # Medications Medications Current Medications Acetaminophen (Tylenol Tab) 650 mg Q4H PRN PO NON-CARDIAC PAIN LEVEL (1-3) Last administered on 06/01/18at 12:08; Admin Dose 650 MG; Start 05/27/18 at 11:30 Morphine Sulfate (morphine) 2 mg Q2H PRN IV FOR NON CARDIAC PAIN (4-10) Last administered on 05/30/18at 03:55; Admin Dose 2 MG; Start 05/27/18 at 11:30 Al Hydrox/Mg Hydrox/Simethicone (Mag-Al Plus) 30 ml Q4H PRN PO GASTROINTESTINAL UPSET; Start 05/27/18 at 11:30 Ondansetron HCl (Zofran Inj) 4 mg Q4H PRN IV NAUSEA AND/OR VOMITING Last administered on 05/30/18at 09:29; Admin Dose 4 MG; Start 05/27/18 at 11:30 Norepinephrine 250 ml @ 1.875 mls/ hr TITRATE IV Last administered on 05/27/18 14:30; Admin Dose 3.75 MLS/HR; Start 05/27/18 at 15:00 Sodium Chloride 1,000 ml @ 75 mls/hr [id number] IV Last administered on 05/31/18 20:48; Admin Dose 75 MLS/HR; Start 05/27/18 at 18:30 Amlodipine Besylate (Norvasc) 5 mg BID PO Last administered on 06/01/18 08:02; Admin Dose 5 MG; Start 05/29/18 at 10:00 Levothyroxine Sodium (Synthroid) 50 mcg BEFORE BREAKFAST PO Last administered on 06/01/18 07:54; Admin Dose 50 MCG; Start 05/30/18 at 07:00 Ranitidine HCl (Zantac) 150 mg HS PO Last administered on 05/31/18 20:45; Admin Dose 150 MG; Start 05/29/18 at 21:00 Mometasone Furoate (Asmanex) 1 puff DAILY INH Last administered on 06/01/18 07:54; Admin Dose 1 PUFF; Start 05/29/18 at 11:00 Atorvastatin Calcium (Lipitor) 10 mg DAILY@21 PO Last administered on 05/31/18 20:44; Admin Dose 10 MG; Start 05/29/18 at 21:00 Heparin Sodium (Porcine) (Heparin (1000 Units/ml)) 3,800 unit PER PROTOCOL PRN IV aPTT<47; Start 05/30/18 at 10:30 Heparin Sodium (Porcine) 250 ml @ 7.5 mls/hr PER PROTOCOL IV Last administered on 05/30/18 12:24; Admin Dose 7.5 MLS/HR; Start 05/30/18 at 10:30 Warfarin Sodium (Coumadin) 5 mg DAILY@17 NGT Last administered on 05/31/18 17:18; Admin Dose 5 MG; Start 05/31/18 at 17:00 CHRIS LAZAR Jun 01, 2018 12:39
[2018-06-01] MEDS ORDERED: FUROSEMIDE 20 MG INJ IV ONE (14:00)
[2018-06-01] MEDS: HEPARIN 25000 UNITS/250 ML 250 ML IV SCH (15:18)
[2018-06-01] MEDS: WARFARIN 5 MG TAB NGT SCH (16:41)
--- NOTE | 2018-06-01 20:44 | PN ---
Date/Time of Note Date/Time of Note DATE: 05/31/18 TIME: 20:42 Assessment/Plan Lines/Catheters IV Catheter Type (from Nrsg): Saline Lock [place] in Place (from Nrsg): No Assessment/Plan Assessment/Plan Retroperitoneal bleeding Minimal drop in the hemoglobin Hemodynamically stable Will monitor hemoglobin levels Exam/Review of Systems Vital Signs Vitals Vital Signs Date Temp Pulse Resp B/P (MAP) Pulse Ox O2 O2 Flow FiO2 Time Delivery Rate 06/01/18 Nasal 2.0 20:16 Cannula 06/01/18 99.5 96 39 135/69 96 20:00 (91) Intake and Output 05/31/18 05/31/18 06/01/18 1515:00 23:00 07:00 IntakeIntake Total 1254.8 ml 561.3 ml 920 ml OutputOutput Total 1340 ml 300 ml 490 ml BalanceBalance -85.2 ml 261.3 ml 430 ml Exam ENMT: nl external ears & nose, nl lips & teeth, nl nasal mucosa & septum, mucosa pink and moist Neck: supple, non-tender Respiratory: clear to auscultation, normal air movement Cardiovascular: regular rate and rhythm, nl pulses Gastrointestinal: soft, nl liver, spleen, non-tender Musculoskeletal: nl extremities to inspection, nl gait and stance Results Result Diagram: 06/01/18 0430 05/31/18 0515 KIRILL CHRISTIAN MD Jun 01, 2018 20:44
--- NOTE | 2018-06-01 20:45 | PN ---
Date/Time of Note Date/Time of Note DATE: 06/01/18 TIME: 20:44 Assessment/Plan Lines/Catheters IV Catheter Type (from Nrsg): Saline Lock [place] in Place (from Nrsg): No Assessment/Plan Assessment/Plan Retroperitoneal bleeding Minimal drop in the hemoglobin Hemodynamically stable Will monitor hemoglobin levels Subjective 24 Hr Interval Summary Constitutional: improved Pain Control: mild Exam/Review of Systems Vital Signs Vitals Vital Signs Date Temp Pulse Resp B/P (MAP) Pulse Ox O2 O2 Flow FiO2 Time Delivery Rate 06/01/18 Nasal 2.0 20:16 Cannula 06/01/18 99.5 96 39 135/69 96 20:00 (91) Intake and Output 05/31/18 05/31/18 06/01/18 1515:00 23:00 07:00 IntakeIntake Total 1254.8 ml 561.3 ml 920 ml OutputOutput Total 1340 ml 300 ml 490 ml BalanceBalance -85.2 ml 261.3 ml 430 ml Exam Eyes: nl conjunctiva, EOMI, nl lids, nl sclera ENMT: nl external ears & nose, nl lips & teeth, nl nasal mucosa & septum, mucosa pink and moist Neck: supple, non-tender Respiratory: clear to auscultation, normal air movement Cardiovascular: regular rate and rhythm, nl pulses Gastrointestinal: soft, nl liver, spleen, non-tender Musculoskeletal: nl extremities to inspection, nl gait and stance Results Result Diagram: 06/01/18 0430 05/31/18 0515 KIRILL CHRISTIAN MD Jun 01, 2018 20:44
[2018-06-01] MEDS: RANITIDINE 150 MG TAB PO SCH (20:46)
[2018-06-01] MEDS: ATORVASTATIN 10 MG TAB PO SCH (20:46)
[2018-06-01] MEDS: LATANOPROST 0.005% 2.5 ML OPH BOTH EYES SCH (20:46)
[2018-06-02] VITALS (23 sets, daily range): BP systolic 60–158; BP diastolic 16–92; PULSE 78–127; RESP 15–41
[2018-06-02] MEDS: ACETAMINOPHEN 325 MG TAB PO PRN ×2 (01:25→11:12)
[2018-06-02] MEDS ORDERED: CEFTRIAXONE 1 GM/50 ML (PMX) 50 ML IVPB SCH (01:30)
[2018-06-02] MEDS ORDERED: POTASSIUM CHLORIDE (SR) 20 MEQ TAB PO STA (08:01)
[2018-06-02] MEDS: AMLODIPINE 5 MG TAB PO SCH (08:52)
[2018-06-02] MEDS: MOMETASONE 0.24 GM INHALER INH SCH (08:53)
[2018-06-02] MEDS ORDERED: FUROSEMIDE 20 MG INJ IV SCH (09:00)
--- NOTE | 2018-06-02 10:26 | PN ---
Date/Time of Note Date/Time of Note DATE: 06/02/18 TIME: 10:22 Assessment/Plan VTE Prophylaxis Risk score (from Ns)>0 risk: 4 SCD applied (from Ns): Yes Pharmacological prophylaxis: warfarin tx Lines/Catheters [facility] Urinary Cath still in place: No Assessment/Plan Hospital Course Patient spiked fever last night with tachycardia and shortness of breath, status post Lasix, denies short of breath at present, after carrera cultures done started on Rocephin, will obtain ID consult from Dr. Hughes. Continue telemetry monitoring. Will obtain chest x-ray. Potassium replacement given. Assessment/Plan -Coronary arteries, status post left heart catheterization with no significant obstructive coronary artery disease by Dr. Moreno on 05/27/2018. -Retroperitoneal bleed. Dr. Kilpatrick is following in vascular surgery consultation -Anemia of acute blood loss, status post blood transfusion, continue to monitor hemoglobin and hematocrit. -Status post mitral valve replacement with mechanical valve in 1999 in [facility]. Continue heparin drip and Coumadin. Monitor PT, PTT and INR. -HTN, continue Norvasc -Hyperlipidemia -Hypothyroidism, continue levothyroxine -History of asthma Further recommendations based on clinical course. Plan of care discussed with Dr. Painter. Result Diagram: 06/02/184 06/02/18 0224 Results 24hrs Laboratory Tests Test 06/01/18 12:09 06/01/18 18:11 06/02/18 01:30 06/02/18 02:24 Prothrombin Time 15.1 H 15.3 H 16.5 H Prothrombin Time 1.2 1.2 1.3 Ratio INR International 1.18 1.20 1.32 Normalized Ratio Activated 63.3 H 55.5 H 85.2 *H Partial Thromboplast Time Urine Color YELLOW Urine Clarity CLOUDY A Urine pH 7.0 Urine Specific 1.014 [place] Urine Ketones NEGATIVE Urine Nitrite NEGATIVE Urine Bilirubin NEGATIVE Urine Urobilinogen NEGATIVE Urine Leukocyte 3+ H Esterase Urine Microscopic 63 H RBC Urine Microscopic > 182 H WBC Urine Squamous FEW Epithelial Cells Urine Bacteria FEW A Urine Hemoglobin 1+ H Urine Glucose NEGATIVE Urine Total Protein 1+ H White Blood Count 5.5 # Red Blood Count 3.58 L Hemoglobin 11.1 L Hematocrit 33.2 L Mean Corpuscular 92.7 Volume Mean Corpuscular 31.0 Hemoglobin Mean Corpuscular 33.4 Hemoglobin Concent Red Cell 14.0 Distribution Width Platelet Count 128 L Mean Platelet Volume 10.0 Immature 0.400 Granulocytes % Neutrophils % 79.3 H Lymphocytes % 11.8 L Monocytes % 7.6 Eosinophils % 0.7 Basophils % 0.2 Nucleated Red Blood 0.0 Cells % Immature 0.020 Granulocytes # Neutrophils # 4.4 Lymphocytes # 0.7 L Monocytes # 0.4 Eosinophils # 0.0 Basophils # 0.0 Nucleated Red Blood 0.0 Cells # Sodium Level 139 Potassium Level 3.3 L Chloride Level 103 # Carbon Dioxide Level 32 H Anion Gap 4 L Blood Urea Nitrogen 9 Creatinine 0.55 Est Glomerular > 60 Filtrat Rate mL/min Glucose Level 120 Calcium Level 8.7 Exam/Review of Systems Exam Vitals Vital Signs Date Temp Pulse Resp B/P (MAP) Pulse Ox O2 O2 Flow FiO2 Time Delivery Rate 06/02/18 Nasal 2.0 08:32 Cannula 06/02/18 89 08:00 06/02/18 99.3 23 116/67 98 08:00 (83) Intake and Output 06/01/18 06/01/18 06/02/18 1515:00 23:00 07:00 IntakeIntake Total 877.5 ml 284.0 ml 88.0 ml OutputOutput Total 780 ml 990 ml 225 ml BalanceBalance 97.5 ml -706.0 ml -137.0 ml Exam Constitutional: alert, oriented Respiratory: clear to auscultation Cardiovascular: regular rate and rhythm Gastrointestinal: soft, non-tender Musculoskeletal: nl extremities to inspection Extremities: normal pulses Neurological: nl mental status Results Results 24hrs Laboratory Tests Test 06/01/18 12:09 06/01/18 18:11 06/02/18 01:30 06/02/18 02:24 Prothrombin Time 15.1 H 15.3 H 16.5 H Prothrombin Time 1.2 1.2 1.3 Ratio INR International 1.18 1.20 1.32 Normalized Ratio Activated 63.3 H 55.5 H 85.2 *H Partial Thromboplast Time Urine Color YELLOW Urine Clarity CLOUDY A Urine pH 7.0 Urine Specific 1.014 [place] Urine Ketones NEGATIVE Urine Nitrite NEGATIVE Urine Bilirubin NEGATIVE Urine Urobilinogen NEGATIVE Urine Leukocyte 3+ H Esterase Urine Microscopic 63 H RBC Urine Microscopic > 182 H WBC Urine Squamous FEW Epithelial Cells Urine Bacteria FEW A Urine Hemoglobin 1+ H Urine Glucose NEGATIVE Urine Total Protein 1+ H White Blood Count 5.5 # Red Blood Count 3.58 L Hemoglobin 11.1 L Hematocrit 33.2 L Mean Corpuscular 92.7 Volume Mean Corpuscular 31.0 Hemoglobin Mean Corpuscular 33.4 Hemoglobin Concent Red Cell 14.0 Distribution Width Platelet Count 128 L Mean Platelet Volume 10.0 Immature 0.400 Granulocytes % Neutrophils % 79.3 H Lymphocytes % 11.8 L Monocytes % 7.6 Eosinophils % 0.7 Basophils % 0.2 Nucleated Red Blood 0.0 Cells % Immature 0.020 Granulocytes # Neutrophils # 4.4 Lymphocytes # 0.7 L Monocytes # 0.4 Eosinophils # 0.0 Basophils # 0.0 Nucleated Red Blood 0.0 Cells # Sodium Level 139 Potassium Level 3.3 L Chloride Level 103 # Carbon Dioxide Level 32 H Anion Gap 4 L Blood Urea Nitrogen 9 Creatinine 0.55 Est Glomerular > 60 Filtrat Rate mL/min Glucose Level 120 Calcium Level 8.7 Medications Medication Current Medications Acetaminophen (Tylenol Tab) 650 mg Q4H PRN PO FEVER GREATER THAN 100.6 Last administered on 06/02/18 01:25; Admin Dose 650 MG; Start 05/27/18 at 11:30 Morphine Sulfate (morphine) 2 mg Q2H PRN IV FOR NON CARDIAC PAIN (4-10) Last administered on 05/30/18 03:55; Admin Dose 2 MG; Start 05/27/18 at 11:30 Al Hydrox/Mg Hydrox/Simethicone (Mag-Al Plus) 30 ml Q4H PRN PO GASTROINTESTINAL UPSET; Start 05/27/18 at 11:30 Ondansetron HCl (Zofran Inj) 4 mg Q4H PRN IV NAUSEA AND/OR VOMITING Last administered on 05/30/18 09:29; Admin Dose 4 MG; Start 05/27/18 at 11:30 Norepinephrine 250 ml @ 1.875 mls/ hr TITRATE IV Last administered on 05/27/18 14:30; Admin Dose 3.75 MLS/HR; Start 05/27/18 at 15:00 Amlodipine Besylate (Norvasc) 5 mg BID PO Last administered on 06/02/18 08:52; Admin Dose 5 MG; Start 05/29/18 at 10:00 Levothyroxine Sodium (Synthroid) 50 mcg BEFORE BREAKFAST PO Last administered on 06/01/18 07:54; Admin Dose 50 MCG; Start 05/30/18 at 07:00 Ranitidine HCl (Zantac) 150 mg HS PO Last administered on 06/01/18 20:46; Admin Dose 150 MG; Start 05/29/18 at 21:00 Mometasone Furoate (Asmanex) 1 puff DAILY INH Last administered on 06/02/18 08:53; Admin Dose 1 PUFF; Start 05/29/18 at 11:00 Atorvastatin Calcium (Lipitor) 10 mg DAILY@21 PO Last administered on 06/01/18 20:46; Admin Dose 10 MG; Start 05/29/18 at 21:00 Heparin Sodium (Porcine) (Heparin (1000 Units/ml)) 3,800 unit PER PROTOCOL PRN IV aPTT<47; Start 05/30/18 at 10:30 Heparin Sodium (Porcine) 250 ml @ 7.5 mls/hr PER PROTOCOL IV Last administered on 06/01/18 15:18; Admin Dose 7.5 MLS/HR; Start 05/30/18 at 10:30 Warfarin Sodium (Coumadin) 5 mg DAILY@17 NGT Last administered on 06/01/18 16:41; Admin Dose 5 MG; Start 05/31/18 at 17:00 Furosemide (Lasix) 20 mg DAILY IV Last administered on 06/02/18 08:53; Admin Dose 20 MG; Start 06/02/18 at 09:00 Latanoprost (Xalatan) 1 drop HS BOTH EYES Last administered on 06/01/18 20:46; Admin Dose 1 DROP; Start 06/01/18 at 21:00 Ceftriaxone Sodium 50 ml @ 100 mls/hr Q24H IVPB Last administered on 06/02/18 03:04; Admin Dose 100 MLS/HR; Start 06/02/18 at 01:30 KRISTY MCCULLOUGH Jun 02, 2018 10:26
--- NOTE | 2018-06-02 11:11 | CONS ---
Assessment/Plan Assessment/Plan Hospital Course (Demo Recall) IMP: 1.cad s/p LHC with no sig obstructive cad 2.HTN 3.RP Bleed s/p transfusions now stable and tolerating heparin/coumadin loading 4.HL 5.MVR-mechanical 6.anemia 7.Hypothyroid 8. FOURNIER-negative Head CT 9. Fevers-101 yesterday with positive ua 10. UTI Recc: -ICU, ok to tele -Continue norvasc -Continue statin -Contineu heparin to couam,din loading and continue to follow HGB which continues to be stable and follow INR -check urine cx Consultation Date/Type/Reason Admit Date/Time May 28, 2018 at 17:52 Initial Consult Date 05/28/18 Type of Consult Cardiology Reason for Consultation cad/ Requesting Provider: JULY VALENTIN MD Date/Time of Note DATE: 06/02/18 TIME: 11:09 Exam/Review of Systems Vital Signs Vitals Vital Signs Date Temp Pulse Resp B/P (MAP) Pulse Ox O2 O2 Flow FiO2 Time Delivery Rate 06/02/18 Nasal 2.0 08:32 Cannula 06/02/18 89 08:00 06/02/18 99.3 23 116/67 98 08:00 (83) Intake and Output 06/01/18 06/01/18 06/02/18 1515:00 23:00 07:00 IntakeIntake Total 877.5 ml 284.0 ml 88.0 ml OutputOutput Total 780 ml 990 ml 225 ml BalanceBalance 97.5 ml -706.0 ml -137.0 ml Exam Exam Review of Systems: CONSTITUTIONAL: No fevers, chills. PULMONARY: No sob CARDIOVASCULAR: No chest pain/palpitations GASTROINTESTINAL: No nausea/vomiting. GENITOURINARY: No hematuria/dysuria. MUSCULOSKELETAL: No myagias/arthalgias. PSYCHIATRIC: The patient denies depression. NEUROLOGIC: No weakness Constitutional: alert Psych: no complaints Head: normocephalic ENMT: mucosa pink and moist Neck: supple, jvd (9 cm water) Respiratory: diminished breath sounds (at bases/B) Cardiovascular: regular rate and rhythm Gastrointestinal: soft, non-tender Musculoskeletal: muscle tone (normal) Extremities: edema (none) Neurological: other (No focal deficits) Labs Result Diagram: 06/02/18 0224 06/02/18 0224 Results 24hrs Laboratory Tests Test 06/01/18 12:09 06/01/18 18:11 06/02/18 01:30 06/02/18 02:24 Prothrombin Time 15.1 H 15.3 H 16.5 H Prothrombin Time 1.2 1.2 1.3 Ratio INR International 1.18 1.20 1.32 Normalized Ratio Activated 63.3 H 55.5 H 85.2 *H Partial Thromboplast Time Urine Color YELLOW Urine Clarity CLOUDY A Urine pH 7.0 Urine Specific 1.014 [place] Urine Ketones NEGATIVE Urine Nitrite NEGATIVE Urine Bilirubin NEGATIVE Urine Urobilinogen NEGATIVE Urine Leukocyte 3+ H Esterase Urine Microscopic 63 H RBC Urine Microscopic > 182 H WBC Urine Squamous FEW Epithelial Cells Urine Bacteria FEW A Urine Hemoglobin 1+ H Urine Glucose NEGATIVE Urine Total Protein 1+ H White Blood Count 5.5 # Red Blood Count 3.58 L Hemoglobin 11.1 L Hematocrit 33.2 L Mean Corpuscular 92.7 Volume Mean Corpuscular 31.0 Hemoglobin Mean Corpuscular 33.4 Hemoglobin Concent Red Cell 14.0 Distribution Width Platelet Count 128 L Mean Platelet Volume 10.0 Immature 0.400 Granulocytes % Neutrophils % 79.3 H Lymphocytes % 11.8 L Monocytes % 7.6 Eosinophils % 0.7 Basophils % 0.2 Nucleated Red Blood 0.0 Cells % Immature 0.020 Granulocytes # Neutrophils # 4.4 Lymphocytes # 0.7 L Monocytes # 0.4 Eosinophils # 0.0 Basophils # 0.0 Nucleated Red Blood 0.0 Cells # Sodium Level 139 Potassium Level 3.3 L Chloride Level 103 # Carbon Dioxide Level 32 H Anion Gap 4 L Blood Urea Nitrogen 9 Creatinine 0.55 Est Glomerular > 60 Filtrat Rate mL/min Glucose Level 120 Calcium Level 8.7 Test 06/02/18 10:16 Activated 77.2 *H Partial Thromboplast Time Medications Medications Current Medications Acetaminophen (Tylenol Tab) 650 mg Q4H PRN PO FEVER GREATER THAN 100.6 Last a dministered on 06/02/18at 01:25; Admin Dose 650 MG; Start 05/27/18 at 11:30 Morphine Sulfate (morphine) 2 mg Q2H PRN IV FOR NON CARDIAC PAIN (4-10) Last administered on 05/30/18at 03:55; Admin Dose 2 MG; Start 05/27/18 at 11:30 Al Hydrox/Mg Hydrox/Simethicone (Mag-Al Plus) 30 ml Q4H PRN PO GASTROINTESTINAL UPSET; Start 05/27/18 at 11:30 Ondansetron HCl (Zofran Inj) 4 mg Q4H PRN IV NAUSEA AND/OR VOMITING Last administered on 05/30/18 09:29; Admin Dose 4 MG; Start 05/27/18 at 11:30 Norepinephrine 250 ml @ 1.875 mls/ hr TITRATE IV Last administered on 05/27/18 14:30; Admin Dose 3.75 MLS/HR; Start 05/27/18 at 15:00 Amlodipine Besylate (Norvasc) 5 mg BID PO Last administered on 06/02/18 08:52; Admin Dose 5 MG; Start 05/29/18 at 10:00 Levothyroxine Sodium (Synthroid) 50 mcg BEFORE BREAKFAST PO Last administered on 06/01/18 07:54; Admin Dose 50 MCG; Start 05/30/18 at 07:00 Ranitidine HCl (Zantac) 150 mg HS PO Last administered on 06/01/18 20:46; Admin Dose 150 MG; Start 05/29/18 at 21:00 Mometasone Furoate (Asmanex) 1 puff DAILY INH Last administered on 06/02/18 08:53; Admin Dose 1 PUFF; Start 05/29/18 at 11:00 Atorvastatin Calcium (Lipitor) 10 mg DAILY@21 PO Last administered on 06/01/18 20:46; Admin Dose 10 MG; Start 05/29/18 at 21:00 Heparin Sodium (Porcine) (Heparin (1000 Units/ml)) 3,800 unit PER PROTOCOL PRN IV aPTT<47; Start 05/30/18 at 10:30 Heparin Sodium (Porcine) 250 ml @ 7.5 mls/hr PER PROTOCOL IV Last administered on 06/01/18 15:18; Admin Dose 7.5 MLS/HR; Start 05/30/18 at 10:30 Warfarin Sodium (Coumadin) 5 mg DAILY@17 NGT Last administered on 06/01/18 16:41; Admin Dose 5 MG; Start 05/31/18 at 17:00 Furosemide (Lasix) 20 mg DAILY IV Last administered on 2/21/19at 08:53; Admin Dose 20 MG; Start 06/02/18 at 09:00 Latanoprost (Xalatan) 1 drop HS BOTH EYES Last administered on 06/01/18at 20:46; Admin Dose 1 DROP; Start 06/01/18 at 21:00 Ceftriaxone Sodium 50 ml @ 100 mls/hr Q24H IVPB Last administered on 06/02/18at 03:04; Admin Dose 100 MLS/HR; Start 06/02/18 at 01:30 CHRIS LAZAR Jun 02, 2018 11:11
[2018-06-02] MEDS: morphine 2 MG INJ IV PRN ×2 (11:57→16:02)
--- NOTE | 2018-06-02 12:18 | CONS ---
Consultation Date/Type/Reason Admit Date/Time May 28, 2018 at 17:52 Date/Time of Note DATE: 06/02/18 TIME: 12:18 Past Medical History Home Meds Reported Medications Albuterol Sulfate* (Ventolin HFA*) 18 Gm Hfa.aer.ad, 2 PUFF INHALATION Q4H, #1 INHALER 05/26/18 Ergocalciferol (Vitamin D2) (VITAMIN D2) 50,000 Unit Capsule, 56805 UNIT PO [id number], CAP 05/23/18 Warfarin Sodium* (Coumadin*) 5 Mg Tablet, 5 MG PO Q TU,THUR,SAT, TAB 05/23/18 Warfarin Sodium* (Coumadin*) 4 Mg Tablet, 4 MG PO Q MON,WED,FRI,SUN, TAB 05/23/18 Furosemide* (Furosemide*) 20 Mg Tablet, 20 MG PO DAILY, #60 TAB TAKE Q 2 DAYS 05/23/18 Simvastatin* (Zocor*) 20 Mg Tablet, 20 MG PO QHS, #30 TAB 05/23/18 Ranitidine Hcl* (Ranitidine Hcl*) 150 Mg Tablet, 150 MG PO HS, #30 TAB 05/23/18 Acetaminophen (Mapap) 500 Mg Capsule, 500 MG PO BID PRN for PAIN, CAP 05/23/18 Levothyroxine Sodium* (Levothyroxine Sodium*) 50 Mcg Tablet, 50 MCG PO BEFORE BREAKFAST, #30 TAB 05/23/18 Spironolactone* (Aldactone*) 25 Mg Tablet, 25 MG PO DAILY, #30 TAB 05/23/18 Beclomethasone Dipropionate (Qvar Redihaler (40 MCG)) 10.6 Gm Hfa.aeroba, 10.6 GM IH DAILY, INH 05/23/18 Amlodipine Besylate* (Norvasc*) 5 Mg Tablet, 5 MG PO BID, TAB 05/23/18 Losartan-Hydrochlorothiazide (Losartan-HCTZ) 100-25 Mg Tab, 1 TAB PO DAILY, TAB 05/23/18 Medications Current Medications Acetaminophen (Tylenol Tab) 650 mg Q4H PRN PO FEVER GREATER THAN 100.6 Last administered on 06/02/18at 11:12; Admin Dose 650 MG; Start 05/27/18 at 11:30 Morphine Sulfate (morphine) 2 mg Q2H PRN IV FOR NON CARDIAC PAIN (4-10) Last administered on 06/02/18 11:57; Admin Dose 2 MG; Start 05/27/18 at 11:30 Al Hydrox/Mg Hydrox/Simethicone (Mag-Al Plus) 30 ml Q4H PRN PO GASTROINTESTINAL UPSET; Start 05/27/18 at 11:30 Ondansetron HCl (Zofran Inj) 4 mg Q4H PRN IV NAUSEA AND/OR VOMITING Last administered on 05/30/18 09:29; Admin Dose 4 MG; Start 05/27/18 at 11:30 Norepinephrine 250 ml @ 1.875 mls/ hr TITRATE IV Last administered on 05/27/18 14:30; Admin Dose 3.75 MLS/HR; Start 05/27/18 at 15:00 Levothyroxine Sodium (Synthroid) 50 mcg BEFORE BREAKFAST PO Last administered on 06/01/18 07:54; Admin Dose 50 MCG; Start 05/30/18 at 07:00 Ranitidine HCl (Zantac) 150 mg HS PO Last administered on 06/01/18 20:46; Admin Dose 150 MG; Start 05/29/18 at 21:00 Mometasone Furoate (Asmanex) 1 puff DAILY INH Last administered on 06/02/18 08:53; Admin Dose 1 PUFF; Start 05/29/18 at 11:00 Atorvastatin Calcium (Lipitor) 10 mg DAILY@21 PO Last administered on 06/01/18 20:46; Admin Dose 10 MG; Start 05/29/18 at 21:00 Heparin Sodium (Porcine) (Heparin (1000 Units/ml)) 3,800 unit PER PROTOCOL PRN IV aPTT<47; Start 05/30/18 at 10:30 Heparin Sodium (Porcine) 250 ml @ 7.5 mls/hr PER PROTOCOL IV Last administered on 06/01/18 15:18; Admin Dose 7.5 MLS/HR; Start 05/30/18 at 10:30 Warfarin Sodium (Coumadin) 5 mg DAILY@17 NGT Last administered on 06/01/18 16:41; Admin Dose 5 MG; Start 05/31/18 at 17:00 Furosemide (Lasix) 20 mg DAILY IV Last administered on 06/02/18 08:53; Admin Dose 20 MG; Start 06/02/18 at 09:00 Latanoprost (Xalatan) 1 drop HS BOTH EYES Last administered on 06/01/18at 20:46; Admin Dose 1 DROP; Start 06/01/18 at 21:00 Ceftriaxone Sodium 50 ml @ 100 mls/hr Q24H IVPB Last administered on 06/02/18at 03:04; Admin Dose 100 MLS/HR; Start 06/02/18 at 01:30 Amlodipine Besylate (Norvasc) 5 mg DAILY PO ; Start 06/03/18 at 09:00 Allergies: Coded Allergies: No Known Allergy (Unverified , 05/26/18) Social History Smoking Status: Never smoker Exam/Review of Systems Exam Vitals Vital Signs Date Temp Pulse Resp B/P (MAP) Pulse Ox O2 O2 Flow FiO2 Time Delivery Rate 06/02/18 98.0 28 105/60 96 Nasal 12:00 (75) Cannula 06/02/18 106 12:00 06/02/18 2.0 08:32 Intake and Output 06/01/18 06/01/18 06/02/18 1414:59 22:59 06:59 IntakeIntake Total 827.5 ml 325.5 ml 96.5 ml OutputOutput Total 600 ml 1120 ml 275 ml BalanceBalance 227.5 ml -794.5 ml -178.5 ml Results Result Diagram: 06/02/1822306/02/18223 Results 24hrs Laboratory Tests Test 06/01/18 18:11 06/02/18 01:30 06/02/18 02:24 06/02/18 10:16 Prothrombin Time 15.3 H 16.5 H Prothrombin Time 1.2 1.3 Ratio INR International 1.20 1.32 Normalized Ratio Activated 55.5 H 85.2 *H 77.2 *H Partial Thromboplast Time Urine Color YELLOW Urine Clarity CLOUDY A Urine pH 7.0 Urine Specific 1.014 [place] Urine Ketones NEGATIVE Urine Nitrite NEGATIVE Urine Bilirubin NEGATIVE Urine Urobilinogen NEGATIVE Urine Leukocyte 3+ H Esterase Urine Microscopic 63 H RBC Urine Microscopic > 182 H WBC Urine Squamous FEW Epithelial Cells Urine Bacteria FEW A Urine Hemoglobin 1+ H Urine Glucose NEGATIVE Urine Total Protein 1+ H White Blood Count 5.5 # Red Blood Count 3.58 L Hemoglobin 11.1 L Hematocrit 33.2 L Mean Corpuscular 92.7 Volume Mean Corpuscular 31.0 Hemoglobin Mean Corpuscular 33.4 Hemoglobin Concent Red Cell 14.0 Distribution Width Platelet Count 128 L Mean Platelet Volume 10.0 Immature 0.400 Granulocytes % Neutrophils % 79.3 H Lymphocytes % 11.8 L Monocytes % 7.6 Eosinophils % 0.7 Basophils % 0.2 Nucleated Red Blood 0.0 Cells % Immature 0.020 Granulocytes # Neutrophils # 4.4 Lymphocytes # 0.7 L Monocytes # 0.4 Eosinophils # 0.0 Basophils # 0.0 Nucleated Red Blood 0.0 Cells # Sodium Level 139 Potassium Level 3.3 L Chloride Level 103 # Carbon Dioxide Level 32 H Anion Gap 4 L Blood Urea Nitrogen 9 Creatinine 0.55 Est Glomerular > 60 Filtrat Rate mL/min Glucose Level 120 Calcium Level 8.7 Medications Medication Current Medications Acetaminophen (Tylenol Tab) 650 mg Q4H PRN PO FEVER GREATER THAN 100.6 Last administered on 06/02/18 11:12; Admin Dose 650 MG; Start 05/27/18 at 11:30 Morphine Sulfate (morphine) 2 mg Q2H PRN IV FOR NON CARDIAC PAIN (4-10) Last administered on 06/02/18 11:57; Admin Dose 2 MG; Start 05/27/18 at 11:30 Al Hydrox/Mg Hydrox/Simethicone (Mag-Al Plus) 30 ml Q4H PRN PO GASTROINTESTINAL UPSET; Start 05/27/18 at 11:30 Ondansetron HCl (Zofran Inj) 4 mg Q4H PRN IV NAUSEA AND/OR VOMITING Last administered on 05/30/18 09:29; Admin Dose 4 MG; Start 05/27/18 at 11:30 Norepinephrine 250 ml @ 1.875 mls/ hr TITRATE IV Last administered on 05/27/18 14:30; Admin Dose 3.75 MLS/HR; Start 05/27/18 at 15:00 Levothyroxine Sodium (Synthroid) 50 mcg BEFORE BREAKFAST PO Last administered on 06/01/18 07:54; Admin Dose 50 MCG; Start 05/30/18 at 07:00 Ranitidine HCl (Zantac) 150 mg HS PO Last administered on 06/01/18 20:46; Admin Dose 150 MG; Start 05/29/18 at 21:00 Mometasone Furoate (Asmanex) 1 puff DAILY INH Last administered on 06/02/18 08:53; Admin Dose 1 PUFF; Start 05/29/18 at 11:00 Atorvastatin Calcium (Lipitor) 10 mg DAILY@21 PO Last administered on 06/01/18 20:46; Admin Dose 10 MG; Start 05/29/18 at 21:00 Heparin Sodium (Porcine) (Heparin (1000 Units/ml)) 3,800 unit PER PROTOCOL PRN IV aPTT<47; Start 05/30/18 at 10:30 Heparin Sodium (Porcine) 250 ml @ 7.5 mls/hr PER PROTOCOL IV Last administered on 06/01/18at 15:18; Admin Dose 7.5 MLS/HR; Start 05/30/18 at 10:30 Warfarin Sodium (Coumadin) 5 mg DAILY@17 NGT Last administered on 06/01/18at 16:41; Admin Dose 5 MG; Start 05/31/18 at 17:00 Furosemide (Lasix) 20 mg DAILY IV Last administered on 06/02/18 08:53; Admin Dose 20 MG; Start 06/02/18 at 09:00 Latanoprost (Xalatan) 1 drop HS BOTH EYES Last administered on 06/01/18 20:46; Admin Dose 1 DROP; Start 06/01/18 at 21:00 Ceftriaxone Sodium 50 ml @ 100 mls/hr Q24H IVPB Last administered on 06/02/18at 03:04; Admin Dose 100 MLS/HR; Start 06/02/18 at 01:30 Amlodipine Besylate (Norvasc) 5 mg DAILY PO ; Start 06/03/18 at 09:00 MARSHA IYER MD Jun 02, 2018 12:18
--- NOTE | 2018-06-02 12:37 | CONS ---
Assessment/Plan Assessment/Plan Hospital Course (Demo Recall) 1. Fever possibly 2/2 to UTI 2. CAD 3. s/p left heart cath 4. retroperitoneal bleed 5. Hx of HTN, hyperlipidemia, hypothy and asthma R: cont. ctx for now but low threshold to broaden to vanco/zosyn if clinically worsens consider CT abdomen pelvis immediately; contacted RESIDENT SERVICE COORDINATOR Flory regarding this rec procalc lactic acid cbc now f/u bcxs f/u ucxs we will cont to follow her closely Consultation Date/Type/Reason Admit Date/Time May 28, 2018 at 17:52 Date of Consultation: Jun 02, 2018 Type of Consult ID Reason for Consultation ABX RECS Requesting Provider: KRISTY MCCULLOUGH Date/Time of Note DATE: 06/02/18 TIME: 12:22 cct 2.5h Hx of Present Illness This is a 62 yo female with a pmh of CAD, HTN, hyperlipidemia, hypothy, asthma s/p left heart cath on 05.27.18, being followed in icu for retroperitoneal bleed. She was noted to have fever on 06.02.18. She was started on empiric CTX. Her UA was pos. Cxs have remained negative. She has not had recurrent fevers. Her Bcxs are pending. She notably has significant new onset abdominal fullness and pain this morning not relieved with pain meds. I discussed with family and nursing at bedside. Constitutional: no complaints Eyes: no complaints ENT: no complaints Respiratory: no complaints Cardiovascular: no complaints Gastrointestinal: pain Musculoskeletal: no complaints Skin: no complaints Past Medical History Home Meds Reported Medications Albuterol Sulfate* (Ventolin HFA*) 18 Gm Hfa.aer.ad, 2 PUFF INHALATION Q4H, #1 INHALER 05/26/18 Ergocalciferol (Vitamin D2) (VITAMIN D2) 50,000 Unit Capsule, 63818 UNIT PO [id number], CAP 05/23/18 Warfarin Sodium* (Coumadin*) 5 Mg Tablet, 5 MG PO Q TUES,THUR,SAT, TAB 05/23/18 Warfarin Sodium* (Coumadin*) 4 Mg Tablet, 4 MG PO Q MON,WED,FRI,SUN, TAB 05/23/18 Furosemide* (Furosemide*) 20 Mg Tablet, 20 MG PO DAILY, #60 TAB TAKE Q 2 DAYS 05/23/18 Simvastatin* (Zocor*) 20 Mg Tablet, 20 MG PO QHS, #30 TAB 05/23/18 Ranitidine Hcl* (Ranitidine Hcl*) 150 Mg Tablet, 150 MG PO HS, #30 TAB 05/23/18 Acetaminophen (Mapap) 500 Mg Capsule, 500 MG PO BID PRN for PAIN, CAP 05/23/18 Levothyroxine Sodium* (Levothyroxine Sodium*) 50 Mcg Tablet, 50 MCG PO BEFORE BREAKFAST, #30 TAB 05/23/18 Spironolactone* (Aldactone*) 25 Mg Tablet, 25 MG PO DAILY, #30 TAB 05/23/18 Beclomethasone Dipropionate (Qvar Redihaler (40 MCG)) 10.6 Gm Hfa.aeroba, 10.6 GM IH DAILY, INH 05/23/18 Amlodipine Besylate* (Norvasc*) 5 Mg Tablet, 5 MG PO BID, TAB 05/23/18 Losartan-Hydrochlorothiazide (Losartan-HCTZ) 100-25 Mg Tab, 1 TAB PO DAILY, TAB 05/23/18 Medications Current Medications Acetaminophen (Tylenol Tab) 650 mg Q4H PRN PO FEVER GREATER THAN 100.6 Last administered on 06/02/18at 11:12; Admin Dose 650 MG; Start 05/27/18 at 11:30 Morphine Sulfate (morphine) 2 mg Q2H PRN IV FOR NON CARDIAC PAIN (4-10) Last administered on 06/02/18at 11:57; Admin Dose 2 MG; Start 05/27/18 at 11:30 Al Hydrox/Mg Hydrox/Simethicone (Mag-Al Plus) 30 ml Q4H PRN PO GASTROINTESTINAL UPSET; Start 05/27/18 at 11:30 Ondansetron HCl (Zofran Inj) 4 mg Q4H PRN IV NAUSEA AND/OR VOMITING Last administered on 05/30/18at 09:29; Admin Dose 4 MG; Start 05/27/18 at 11:30 Norepinephrine 250 ml @ 1.875 mls/ hr TITRATE IV Last administered on 05/27/18at 14:30; Admin Dose 3.75 MLS/HR; Start 05/27/18 at 15:00 Levothyroxine Sodium (Synthroid) 50 mcg BEFORE BREAKFAST PO Last administered on 06/01/18at 07:54; Admin Dose 50 MCG; Start 05/30/18 at 07:00 Ranitidine HCl (Zantac) 150 mg HS PO Last administered on 06/01/18 20:46; Admin Dose 150 MG; Start 05/29/18 at 21:00 Mometasone Furoate (Asmanex) 1 puff DAILY INH Last administered on 06/02/18 08:53; Admin Dose 1 PUFF; Start 05/29/18 at 11:00 Atorvastatin Calcium (Lipitor) 10 mg DAILY@21 PO Last administered on 06/01/18 20:46; Admin Dose 10 MG; Start 05/29/18 at 21:00 Heparin Sodium (Porcine) (Heparin (1000 Units/ml)) 3,800 unit PER PROTOCOL PRN IV aPTT<47; Start 05/30/18 at 10:30 Heparin Sodium (Porcine) 250 ml @ 7.5 mls/hr PER PROTOCOL IV Last administered on 06/01/18 15:18; Admin Dose 7.5 MLS/HR; Start 05/30/18 at 10:30 Warfarin Sodium (Coumadin) 5 mg DAILY@17 NGT Last administered on 06/01/18 16:41; Admin Dose 5 MG; Start 05/31/18 at 17:00 Furosemide (Lasix) 20 mg DAILY IV Last administered on 06/02/18 08:53; Admin Dose 20 MG; Start 06/02/18 at 09:00 Latanoprost (Xalatan) 1 drop HS BOTH EYES Last administered on 06/01/18 20:46; Admin Dose 1 DROP; Start 06/01/18 at 21:00 Ceftriaxone Sodium 50 ml @ 100 mls/hr Q24H IVPB Last administered on 06/02/18 03:04; Admin Dose 100 MLS/HR; Start 06/02/18 at 01:30 Amlodipine Besylate (Norvasc) 5 mg DAILY PO ; Start 06/03/18 at 09:00 Allergies: Coded Allergies: No Known Allergy (Unverified , 05/26/18) Social History Smoking Status: Never smoker Exam/Review of Systems Exam Vitals Vital Signs Date Temp Pulse Resp B/P (MAP) Pulse Ox O2 O2 Flow FiO2 Time Delivery Rate 06/02/18 98.0 28 105/60 96 Nasal 12:00 (75) Cannula 06/02/18 106 12:00 06/02/18 2.0 08:32 Intake and Output 06/01/18 06/01/18 06/02/18 1414:59 22:59 06:59 IntakeIntake Total 827.5 ml 325.5 ml 96.5 ml OutputOutput Total 600 ml 1120 ml 275 ml BalanceBalance 227.5 ml -794.5 ml -178.5 ml Constitutional: alert, oriented, well developed, distress, other (appears pale and uncomfortable) Psych: no complaints, nl mood/affect Eyes: EOMI Respiratory: clear to auscultation Cardiovascular: regular rate and rhythm Gastrointestinal: distended, firm Neurological: SWIMMING POOL MAINTENANCE II-XII intact Results Result Diagram: 06/02/1822306/02/18223 Results 24hrs Laboratory Tests Test 06/01/18 18:11 06/02/18 01:30 06/02/18 02:24 06/02/18 10:16 Prothrombin Time 15.3 H 16.5 H Prothrombin Time 1.2 1.3 Ratio INR International 1.20 1.32 Normalized Ratio Activated 55.5 H 85.2 *H 77.2 *H Partial Thromboplast Time Urine Color YELLOW Urine Clarity CLOUDY A Urine pH 7.0 Urine Specific 1.014 [place] Urine Ketones NEGATIVE Urine Nitrite NEGATIVE Urine Bilirubin NEGATIVE Urine Urobilinogen NEGATIVE Urine Leukocyte 3+ H Esterase Urine Microscopic 63 H RBC Urine Microscopic > 182 H WBC Urine Squamous FEW Epithelial Cells Urine Bacteria FEW A Urine Hemoglobin 1+ H Urine Glucose NEGATIVE Urine Total Protein 1+ H White Blood Count 5.5 # Red Blood Count 3.58 L Hemoglobin 11.1 L Hematocrit 33.2 L Mean Corpuscular 92.7 Volume Mean Corpuscular 31.0 Hemoglobin Mean Corpuscular 33.4 Hemoglobin Concent Red Cell 14.0 Distribution Width Platelet Count 128 L Mean Platelet Volume 10.0 Immature 0.400 Granulocytes % Neutrophils % 79.3 H Lymphocytes % 11.8 L Monocytes % 7.6 Eosinophils % 0.7 Basophils % 0.2 Nucleated Red Blood 0.0 Cells % Immature 0.020 Granulocytes # Neutrophils # 4.4 Lymphocytes # 0.7 L Monocytes # 0.4 Eosinophils # 0.0 Basophils # 0.0 Nucleated Red Blood 0.0 Cells # Sodium Level 139 Potassium Level 3.3 L Chloride Level 103 # Carbon Dioxide Level 32 H Anion Gap 4 L Blood Urea Nitrogen 9 Creatinine 0.55 Est Glomerular > 60 Filtrat Rate mL/min Glucose Level 120 Calcium Level 8.7 Medications Medication Current Medications Acetaminophen (Tylenol Tab) 650 mg Q4H PRN PO FEVER GREATER THAN 100.6 Last administered on 06/02/18 11:12; Admin Dose 650 MG; Start 05/27/18 at 11:30 Morphine Sulfate (morphine) 2 mg Q2H PRN IV FOR NON CARDIAC PAIN (4-10) Last administered on 06/02/18 11:57; Admin Dose 2 MG; Start 05/27/18 at 11:30 Al Hydrox/Mg Hydrox/Simethicone (Mag-Al Plus) 30 ml Q4H PRN PO GASTROINTESTINAL UPSET; Start 05/27/18 at 11:30 Ondansetron HCl (Zofran Inj) 4 mg Q4H PRN IV NAUSEA AND/OR VOMITING Last administered on 05/30/18 09:29; Admin Dose 4 MG; Start 05/27/18 at 11:30 Norepinephrine 250 ml @ 1.875 mls/ hr TITRATE IV Last administered on 05/27/18 14:30; Admin Dose 3.75 MLS/HR; Start 05/27/18 at 15:00 Levothyroxine Sodium (Synthroid) 50 mcg BEFORE BREAKFAST PO Last administered on 06/01/18 07:54; Admin Dose 50 MCG; Start 05/30/18 at 07:00 Ranitidine HCl (Zantac) 150 mg HS PO Last administered on 06/01/18 20:46; Admin Dose 150 MG; Start 05/29/18 at 21:00 Mometasone Furoate (Asmanex) 1 puff DAILY INH Last administered on 06/02/18 08:53; Admin Dose 1 PUFF; Start 05/29/18 at 11:00 Atorvastatin Calcium (Lipitor) 10 mg DAILY@21 PO Last administered on 06/01/18 20:46; Admin Dose 10 MG; Start 05/29/18 at 21:00 Heparin Sodium (Porcine) (Heparin (1000 Units/ml)) 3,800 unit PER PROTOCOL PRN IV aPTT<47; Start 05/30/18 at 10:30 Heparin Sodium (Porcine) 250 ml @ 7.5 mls/hr PER PROTOCOL IV Last administered on 06/01/18 15:18; Admin Dose 7.5 MLS/HR; Start 05/30/18 at 10:30 Warfarin Sodium (Coumadin) 5 mg DAILY@17 NGT Last administered on 06/01/18 16:41; Admin Dose 5 MG; Start 05/31/18 at 17:00 Furosemide (Lasix) 20 mg DAILY IV Last administered on 06/02/18 08:53; Admin Dose 20 MG; Start 06/02/18 at 09:00 Latanoprost (Xalatan) 1 drop HS BOTH EYES Last administered on 06/01/18 20:46; Admin Dose 1 DROP; Start 06/01/18 at 21:00 Ceftriaxone Sodium 50 ml @ 100 mls/hr Q24H IVPB Last administered on 06/02/18 03:04; Admin Dose 100 MLS/HR; Start 06/02/18 at 01:30 Amlodipine Besylate (Norvasc) 5 mg DAILY PO ; Start 06/03/18 at 09:00 MARSHA IYER MD Jun 02, 2018 12:33
--- NOTE | 2018-06-02 14:31 | RADRPT ---
Echocardiogram Report Patient Name: Gali BALDERRAMA ID: [id number] : 1955 (62y 10m)Study Date: 05/31/2018 3:01:30 PM Gender: FAccession #: [id number] Tech: Aden Mcmahan [facility] Location: [facility] Ref.Physician: CHRIS MORENO Height(Cm): BSA: Weight(Kg): Quality: Technically Difficult StudyAccount #: Procedures: Echocardiographic Report: Transthoracic echocardiogram with complete 2D, M-Mode, and doppler examination. Indications: Shortness of breath. Measurements: 2D/M Mode Doppler Measurement Value Normal Range Measurement Value Normal Range LVIDd 2D 4.1 [ 3.8 - 5.2 ] cm AV Peak Jermaine 1.6 [ 100.0 - 170.0 ] cm/sec LVIDs 2D 2.8 [ 2.2 - 3.5 ] cm AV Peak PG 10.0 [ 2.0 - 9.0 ] mmHg LVPWd 2D 1.8 [ 0.6 - 0.9 ] cm AI Peak PG 40.0 mmHg IVSd 2D 1.1 [ 0.6 - 0.9 ] cm AI Peak Jermaine 3.2 cm/sec AoR Diam 2D 2.4 [ 2.3 - 3.1 ] cm AI PHT 613.0 msec EDV 2D 72.9 [ 46.0 - 106.0 ] ml LVOT Peak Jermaine 0.8 [ 70.0 - 110.0 ] cm/sec ESV 2D 28.8 [ 14.0 - 42.0 ] ml LVOT Peak PG 3.0 [ 2.0 - 6.0 ] mmHg EF 2D 60.5 [ 54.0 - 74.0 ] percent MV E Peak Jermaine 1.9 [ 60.0 - 130.0 ] cm/sec LA Dimen 2D 6.2 [ 2.7 - 3.8 ] cm MV Peak Jermaine 2.6 [ 60.0 - 130.0 ] cm/sec MV Peak PG 27.0 [ 1.0 - 10.0 ] mmHg MV Mean Jermaine 1.3 cm/sec MV Mean PG 8.0 mmHg MV Decel Time 271 [ 104 - 258 ] msec MV VTI 46.7 cm TR Peak Jermaine 3.3 [ 100.0 - 280.0 ] cm/sec TR Peak PG 42.0 mmHg RVSP 57.0 [ 10.0 - 36.0 ] mmHg Findings: Left Ventricle: Lower limits of normal systolic function. Moderate asymmetric septal hypertrophy. Reduced left ventricular cavity size. Mild global left ventricular systolic dysfunction. Mild left ventricular systolic dysfunction. Ejection fraction is visually estimated at 45 %. Tissue Doppler/Mitral Doppler indices are indeterminate in this study due to the presence of mitral valve replacement. These segments of the LV are dyskinetic mid septum segment. Right Ventricle: Normal right ventricular systolic function. Mild enlargement of right ventricle. Left Atrium: There is severe enlargement of left atrium. Right Atrium: There is moderate enlargement of right atrium. Mitral Valve: Trace mitral regurgitation. Mitral Valve Mechanical Prosthesis. Mitral valve Max Velocity 2.58 m/sec. MaxPG 27.00 mmHg. MeanPG 8.00 mmHg. Aortic Valve: No significant aortic stenosis or insufficiency. Aortic cusps appear mildly calcified. Mild to moderate aortic valve regurgitation. Tricuspid Valve: Normal appearance of the tricuspid valve. Estimated peak PA systolic pressure 42 mmHg. There is mild to moderate tricuspid regurgitation. Pulmonic Valve: Pulmonic valve not well visualized. Pericardium: Normal pericardium with no significant pericardial effusion. Aorta: Normal aortic root. IVC: Dilated inferior vena cava with poor inspiratory collapse consistent with elevated right atrial pressures. Conclusions: Lower limits of normal systolic function. Moderate asymmetric septal hypertrophy. Reduced left ventricular cavity size. Mild global left ventricular systolic dysfunction. Mild left ventricular systolic dysfunction. Ejection fraction is visually estimated at 45 %. Tissue Doppler/Mitral Doppler indices are indeterminate in this study due to the presence of mitral valve replacement. These segments of the LV are dyskinetic mid septum segment. Normal right ventricular systolic function. Mild enlargement of right ventricle. There is severe enlargement of left atrium. There is moderate enlargement of right atrium. Trace mitral regurgitation. Mitral Valve Mechanical Prosthesis. Mitral valve Max Velocity 2.58 m/sec. MaxPG 27.00 mmHg. MeanPG 8.00 mmHg. No significant aortic stenosis or insufficiency. Aortic cusps appear mildly calcified. Mild to moderate aortic valve regurgitation. Normal appearance of the tricuspid valve. Estimated peak PA systolic pressure 42 mmHg. There is mild to moderate tricuspid regurgitation. Electronically Signed By: Chris Moreno 2018-06-02 14:30:04 PST
--- NOTE | 2018-06-02 14:35 | EN ---
Date/Time of Note Date/Time of Note DATE: 06/02/18 TIME: 14:18 Event Note Medicine Medicine Event Note Rapid response code Alerted by nurse that patient was hypotensive and she was unable to reach Dr. Painter. On review of chart, 62 yo woman with retroperitoneal bleed of unclear etiology, on anticoagulation for mechanical mitral valve. BP was 60s/30s, Pulse was 110s, breathing comfortably on nasal cannula saturating well. Patient tachycardic, On my exam, the non-Wolof speaking patient was moaning in pain. Family available in the room to translate. She complained of lower abdominal pain which has been present for several days. She was awake and alert. She had been placed in Trendelenburg position. Exam notable for suprapubic firm area of swelling and tenderness. I ordered 1L bolus lactated ringers as she appears fluid down. I will also stop her standing lasix. On repeat blood pressure, BP slightly increased with MAP>65. Norepinephrine also ordered in case she is not fluid responsive. Will wait until blood pressure is stable for an hour or so before sending her down to repeat CT. CHRIS LAMB MD Jun 02, 2018 14:28
[2018-06-02] MEDS ORDERED: SOD CHLORIDE 0.9% 500 ML IV ONE (16:00)
[2018-06-02] MEDS ORDERED: LACTATED RINGER'S 1,000 ML IV ONE (16:00)
[2018-06-02] MEDS ORDERED: VANCOMYCIN IV PER PHARMACY XX SCH (16:00)
[2018-06-02] MEDS ORDERED: SOD CHLORIDE 0.9% 100 ML ONE (16:38)
[2018-06-02] MEDS ORDERED: IOHEXOL 300MG/ML 150 ML BTL ONE (16:38)
--- NOTE | 2018-06-02 16:45 | CONS ---
Assessment/Plan Assessment/Plan Hospital Course (Demo Recall) - Severe sepsis (fever, leukocytosis, tachycardia, lactic acidosis) with hypotension d/t UTI +/- infected hematoma +/- other intra-abdominal source - responded to IVF bolus - UTI per UA - S/p C 05/27/2018 showing no significant obstructive CAD - CAD s/p CABG in [facility] - H/o MVR with mechanical valve, in 1999 - Retroperitoneal bleed - Cholelithiasis without e/o acute cholecystitis - Acute anemia requiring PRBC - Hypertension - Hyperlipidemia - Hypothyroidism - Asthma - FOURNIER - CT head shows no acute findings Recommendations: - Broaden abx d/t possibly worsening sepsis: Change ceftriaxone to vancomycin and Zosyn (06/02/2018-) - F/u blood cx, urine cx, procalcitonin - Serial lactic acid - F/u repeat CT abd/pelvis (already ordered) being done today Management d/w DIRECTOR OF SCOUT WORKGONZALO Tovar, multiple family members at bedside, and with Dr. Hughes. All questions answered. Critical care time spent: 40 min Consultation Date/Type/Reason Admit Date/Time May 28, 2018 at 17:52 Initial Consult Date 06/02/18 Type of Consult Infectious Disease Requesting Provider: KRISTY MCCULLOUGH Date/Time of Note DATE: 06/02/18 TIME: 16:08 24 HR Interval Summary Free Text/Dictation Lactic acid 5.5, and pt became hypotensive (SBP 60's), tachycardic with increased abdominal distention. Abdominal pain is currently unchanged and tolerable per family. Denies SOB, n/v/d. Subjective hx not possible: pt critical status Exam/Review of Systems Exam Vitals Vital Signs Date Temp Pulse Resp B/P (MAP) Pulse Ox O2 O2 Flow FiO2 Time Delivery Rate 06/02/18 117 41 88/48 (61) 98 Nasal 14:00 Cannula 06/02/18 4.0 12:14 06/02/18 98.0 12:00 Intake and Output 06/01/18 06/01/18 06/02/18 1515:00 23:00 07:00 IntakeIntake Total 877.5 ml 284.0 ml 88.0 ml OutputOutput Total 780 ml 990 ml 225 ml BalanceBalance 97.5 ml -706.0 ml -137.0 ml Constitutional: alert, oriented, well developed, frail, obese Head: normocephalic, atraumatic Eyes: nl conjunctiva, nl lids, nl sclera ENMT: nl external ears & nose, nl nasal mucosa & septum, mucosa pink and moist Neck: supple, jvd Respiratory: diminished breath sounds Cardiovascular: nl pulses, other (regular rhythm, tachycaridc) Gastrointestinal: soft (semi-soft), distended, tender, other (somewhat veiny appearance with mild purplish discoloration) Extremities: normal pulses; No edema Neurological: nl mental status Skin: nl turgor; No rash or lesions Results Result Diagram: 06/02/18 1337 06/02/18 0224 Results 24hrs Laboratory Tests Test 06/01/18 18:11 06/02/18 01:30 06/02/18 02:24 06/02/18 10:16 Prothrombin Time 15.3 H 16.5 H Prothrombin Time 1.2 1.3 Ratio INR International 1.20 1.32 Normalized Ratio Activated 55.5 H 85.2 *H 77.2 *H Partial Thromboplast Time Urine Color YELLOW Urine Clarity CLOUDY A Urine pH 7.0 Urine Specific 1.014 [place] Urine Ketones NEGATIVE Urine Nitrite NEGATIVE Urine Bilirubin NEGATIVE Urine Urobilinogen NEGATIVE Urine Leukocyte 3+ H Esterase Urine Microscopic 63 H RBC Urine Microscopic > 182 H WBC Urine Squamous FEW Epithelial Cells Urine Bacteria FEW A Urine Hemoglobin 1+ H Urine Glucose NEGATIVE Urine Total Protein 1+ H White Blood Count 5.5 # Red Blood Count 3.58 L Hemoglobin 11.1 L Hematocrit 33.2 L Mean Corpuscular 92.7 Volume Mean Corpuscular 31.0 Hemoglobin Mean Corpuscular 33.4 Hemoglobin Concent Red Cell 14.0 Distribution Width Platelet Count 128 L Mean Platelet Volume 10.0 Immature 0.400 Granulocytes % Neutrophils % 79.3 H Lymphocytes % 11.8 L Monocytes % 7.6 Eosinophils % 0.7 Basophils % 0.2 Nucleated Red Blood 0.0 Cells % Immature 0.020 Granulocytes # Neutrophils # 4.4 Lymphocytes # 0.7 L Monocytes # 0.4 Eosinophils # 0.0 Basophils # 0.0 Nucleated Red Blood 0.0 Cells # Sodium Level 139 Potassium Level 3.3 L Chloride Level 103 # Carbon Dioxide Level 32 H Anion Gap 4 L Blood Urea Nitrogen 9 Creatinine 0.55 Est Glomerular > 60 Filtrat Rate mL/min Glucose Level 120 Calcium Level 8.7 Test 06/02/18 13:37 White Blood Count 12.4 #H Red Blood Count 3.51 L Hemoglobin 10.9 L Hematocrit 32.9 L Mean Corpuscular 93.7 Volume Mean Corpuscular 31.1 Hemoglobin Mean Corpuscular 33.1 Hemoglobin Concent Red Cell 14.2 Distribution Width Platelet Count 206 # Mean Platelet Volume 10.4 Immature 0.900 H Granulocytes % Neutrophils % 82.8 H Lymphocytes % 11.6 L Monocytes % 3.7 Eosinophils % 0.7 Basophils % 0.3 Nucleated Red Blood 0.0 Cells % Immature 0.110 H Granulocytes # Neutrophils # 10.3 H Lymphocytes # 1.4 Monocytes # 0.5 Eosinophils # 0.1 Basophils # 0.0 Nucleated Red Blood 0.0 Cells # Lactic Acid Level 5.5 *H Imaging Imaging CXR 06/02/2018: 1. Cardiomegaly, vascular congestion and continuing interstitial edema. 2. Small bilateral pleural effusions similar to the prior study. 3. No acute air space process identified. 4. Aortic atherosclerosis Brain CT 06/01/2018: 1. No acute intracranial hemorrhage or acute territorial infarct. 2. Mild encephalomalacia in the right temporal lobe may be related to old infarct or previous trauma. 3. Minimal atrophy and minimal small vessel ischemic change CT abd/pelvis 05/27/2018: 1. MODERATE TO LARGE HEMOPERITONEUM NOTED WITHIN THE PELVIS AND RIGHT PARACOLIC GUTTER. THE BLADDER IS POORLY VISUALIZED AND THERE IS A CATHETER WITHIN THE PELVIS, WHICH PROBABLY REPRESENTS A MCKENZIE CATHETER. TRACE AMOUNT OF RESIDUAL CONTRAST MATERIAL IS NOTED WITHIN A PORTION OF ABNORMALLY SHAPED BLADDER. THE BLADDER MAY BE POORLY VISUALIZED DUE TO MASS EFFECT FROM HEMOPERITONEUM. FINDINGS MAY BE SECONDARY TO VASCULAR INJURY FROM RECENT IATROGENIC PROCEDURE. FOLLOW-UP CT SCAN WITH IV CONTRAST WITH ARTERIAL AND DELAYED PHASE IS RECOMMENDE D FOR COMPLETE EVALUATION. INTRAPERITONEAL BLADDER RUPTURE IS NOT COMPLETELY EXCLUDED DUE TO POOR VISUALIZATION OF BLADDER WELL. 2. No gross evidence of bowel obstruction. Stool filled loops of large bowel suggestive of constipation. 3. Cholelithiasis. 4. Both kidneys appear to be within normal limits. Residual contrast material within the collecting systems and ureters. CT abd/pelvis 05/27/2018 at 1920: COMPARISON: Comparison to the study done approximately 5 and half hours earlier on the same date. 1. When compared to the previous study done earlier on the same date, there is again a large hematoma seen to extend through the pelvis to the right of the bladder measuring approximately 13.4 x 8.0 x 6.8 cm which is likely extraperitoneal. The mass effect extrinsically impinges on the bladder and displaces the bladder somewhat leftward. This has not significantly changed in size from the previous. 2. There has been a slight interval increase to the small amount of hemoperitoneum which now in addition to the located within the right paracolic gutter is now seen in the left paracolic gutter, the sub hepatic space and minimally within the right subphrenic space. No free air is identified. 3. There is again no evidence of urinary outflow obstruction with the ureters appearing unremarkable. The Mckenzie catheter is been removed from the bladder. The bladder is no moderately distended with contrast and appears intact. 4. There is again no evidence of bowel obstruction or inflammation with a normal vermiform appendix. 5. Persistent cholelithiasis not associated with gallbladder wall thickening or bile duct dilatation. The pancreas remains unremarkable. 6. Discoid atelectasis is again seen within the lung bases. 7. The heart remains grossly enlarged and there are again is a prosthetic mitral valve replacement. 2D Echo 05/31/2018: Lower limits of normal systolic function. Moderate asymmetric septal hypertrophy. Reduced left ventricular cavity size. Mild global left ventricular systolic dysfunction. Mild left ventricular systolic dysfunction. Ejection fraction is visually estimated at 45 %. Tissue Doppler/Mitral Doppler indices are indeterminate in this study due to the presence of mitral valve replacement. These segments of the LV are dyskinetic mid septum segment. Normal right ventricular systolic function. Mild enlargement of right ventricle. There is severe enlargement of left atrium. There is moderate enlargement of right atrium. Trace mitral regurgitation. Mitral Valve Mechanical Prosthesis. Mitral valve Max Velocity 2.58 m/sec. MaxPG 27.00 mmHg. MeanPG 8.00 mmHg. No significant aortic stenosis or insufficiency. Aortic cusps appear mildly calcified. Mild to moderate aortic valve regurgitation. Normal appearance of the tricuspid valve. Estimated peak PA systolic pressure 42 mmHg. There is mild to moderate tricuspid regurgitation. Medications Medication Current Medications Acetaminophen (Tylenol Tab) 650 mg Q4H PRN PO FEVER GREATER THAN 100.6 Last administered on 06/02/18at 11:12; Admin Dose 650 MG; Start 05/27/18 at 11:30 Morphine Sulfate (morphine) 2 mg Q2H PRN IV FOR NON CARDIAC PAIN (4-10) Last administered on 06/02/18 16:02; Admin Dose 2 MG; Start 05/27/18 at 11:30 Al Hydrox/Mg Hydrox/Simethicone (Mag-Al Plus) 30 ml Q4H PRN PO GASTROINTESTINAL UPSET; Start 05/27/18 at 11:30 Ondansetron HCl (Zofran Inj) 4 mg Q4H PRN IV NAUSEA AND/OR VOMITING Last administered on 05/30/18 09:29; Admin Dose 4 MG; Start 05/27/18 at 11:30 Levothyroxine Sodium (Synthroid) 50 mcg BEFORE BREAKFAST PO Last administered on 06/01/18 07:54; Admin Dose 50 MCG; Start 05/30/18 at 07:00 Ranitidine HCl (Zantac) 150 mg HS PO Last administered on 06/01/18 20:46; Admin Dose 150 MG; Start 05/29/18 at 21:00 Mometasone Furoate (Asmanex) 1 puff DAILY INH Last administered on 06/02/18 08:53; Admin Dose 1 PUFF; Start 05/29/18 at 11:00 Atorvastatin Calcium (Lipitor) 10 mg DAILY@21 PO Last administered on 06/01/18 20:46; Admin Dose 10 MG; Start 05/29/18 at 21:00 Heparin Sodium (Porcine) (Heparin (1000 Units/ml)) 3,800 unit PER PROTOCOL PRN IV aPTT<47; Start 05/30/18 at 10:30 Heparin Sodium (Porcine) 250 ml @ 7.5 mls/hr PER PROTOCOL IV Last administered on 06/01/18 15:18; Admin Dose 7.5 MLS/HR; Start 05/30/18 at 10:30 Warfarin Sodium (Coumadin) 5 mg DAILY@17 NGT Last administered on 06/01/18 16:41; Admin Dose 5 MG; Start 05/31/18 at 17:00 Latanoprost (Xalatan) 1 drop HS BOTH EYES Last administered on 06/01/18 20:46; Admin Dose 1 DROP; Start 06/01/18 at 21:00 Amlodipine Besylate (Norvasc) 5 mg DAILY PO ; Start 2/22/19 at 09:00 Norepinephrine 16 mg/Dextrose 250 ml @ 0.94 mls/hr TITRATE IV ; Start 06/02/18 at 15:30 Sodium Chloride 500 ml @ 500 mls/hr Q1H ONCE IV Last administered on 06/02/18at 15:44; Admin Dose 500 MLS/HR; Start 06/02/18 at 16:00; Stop 06/02/18 at 16:59 Lactated Ringer's 1,000 ml @ 1,000 mls/hr Q1H ONCE IV Last administered on 06/02/18at 15:44; Admin Dose 1,000 MLS/HR; Start 06/02/18 at 16:00; Stop 06/02/18 at 16:59 Vancomycin HCl (Vanco Iv Per Pharmacy) VANCOMYCIN PER PHARMACY PER PROTOCOL XX ; Start 06/02/18 at 16:00; Status UNV Piperacillin Sod/ Tazobactam Sod 100 ml @ 200 mls/hr Q6 IVPB ; Start 06/02/18 at 18:00; Status UNV KISHORE JARAMILLO NP Jun 02, 2018 16:18
[2018-06-02] MEDS: WARFARIN 5 MG TAB NGT SCH (17:00)
[2018-06-02] MEDS: PIPER-TAZO 3.375 GM IV (PMX) 100 ML IVPB SCH (17:25)
[2018-06-02] MEDS ORDERED: DIGOXIN 500 MCG INJ IV ONE (17:30)
--- NOTE | 2018-06-02 17:53 | PN ---
DATE: 06/02/2018 ADDENDUM: The patient had a change in condition today and started complaining of lower abdominal nroa n, became hypotensive and tachycardic. Clinical examination revealed lower abdominal fullness. A st at CT was ordered and I spoke with Dr. Darnell Henao and the impression is that patient has acute arteri al bleed with localized hematoma. Hemoglobin dropped from 11.1 at 2:00 a.m. to 9.4 and it might even go down further. I will be give her 1 unit of PRBC and we will keep monitoring H and H and transfus e if necessary. The patient also went into AFib with RVR and 1 dose of digoxin will be given as the patient is still marginally hypotensive. I spoke with Dr. Kilpatrick and Dr. Moreno regarding patien t's situation and CT finding. I also updated the patient's family including daughter and son-in-law. The patient remains critically ill. We will continue to monitor her in ICU. We will hold off on h eparin and Coumadin at this time and we will keep her n.p.o. for potential intervention. Dictated By: JULY VALENTIN MD AB/NTS Conf#: [id number] DID#: [id number] CC: MARSHA IYER MD; CHRIS MORENO MD;*End*
[2018-06-02] MEDS: NS + KCL 20 MEQ 1,000 ML IV SCH ×2 (18:59→22:26)
[2018-06-02] MEDS ORDERED: PHENYLephrine 40 MG in DEXTROSE 5% 246 ML IV SCH (19:30)
[2018-06-02] MEDS ORDERED: VANCOMYCIN HCL 1.25 GM in SOD CHLORIDE 0.9% 250 ML IVPB SCH (20:00)
[2018-06-02] MEDS: ATORVASTATIN 10 MG TAB PO SCH (21:00)
[2018-06-02] MEDS ORDERED: IOHEXOL 350MG/ML 50 ML BTL ONE (21:24)
[2018-06-02] MEDS ORDERED: LIDOCAINE 1% (MDV) 20 ML INJ ONE (21:24)
[2018-06-02] MEDS ORDERED: IODIXANOL LOCM 100 ML BTL ONE (21:24)
[2018-06-02] MEDS ORDERED: FENTAnyl 50 MCG/ML VIAL ONE (21:25)
[2018-06-02] MEDS ORDERED: SOD CHLORIDE 0.9% 500 ML ONE (21:25)
[2018-06-02] MEDS ORDERED: MIDAZOLAM 1 MG/ML 2 ML INJ ONE (21:25)
--- NOTE | 2018-06-02 22:01 | OPR ---
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 Postoperative Diagnosis Same Operation/Procedure Performed Covered stent placement 6 x 100 mm right common femoral artery and right external iliac artery Abdominal aortogram Catheter introduction to the abdominal aorta interpretation supervision of the aortogram Ultrasound guidance into the central artery Surgeon see signature line Rigging Foreman None Anesthesia Type: MAC Estimated Blood Loss: minimal Transfusion none Specimen None Grafts/Implants none Complications none Disposition: PACU Procedure Description This is a patient who had undergone a angiogram few days ago with retroperitoneal bleeding and bleeding from the femoral artery which had stopped patient was subsequently started on Coumadin today dropped her hematocrit down the hemoglobin went down to 6.1 CAT scan was done which showed acute bleeding from the junction of the right external iliac artery and common femoral artery patient was urgently taken to the iliac catheterization room for an angiogram and a stent placement Access was gained in the left common femoral artery 035 guidewire was advanced without any difficulties 5% [place] sheath was advanced into the aorta aortogram was done followed by an over from left to right and exchange of the catheter to a long 6 [place] sheath right lower extremity angiogram was done which showed acute bleeding at the junction of the right common femoral artery and external iliac artery A covered stent was placed 6 x 100 keiry-meters covering the right common femoral artery and external iliac artery the final angiogram revealed no evidence of any bleeding at the site of the pseudoaneurysm The sheath was removed and the site was closed using a Perclose Tolerated procedure well KIRILL CHRISTIAN MD Jun 02, 2018 22:01
[2018-06-02] MEDS: LATANOPROST 0.005% 2.5 ML OPH BOTH EYES SCH (22:26)
[2018-06-02] MEDS: FAMOTIDINE 20 MG INJ IV SCH (22:26)
[2018-06-02] MEDS: ONDANSETRON 4 MG INJ IV PRN (22:59)
[2018-06-03] VITALS (36 sets, daily range): BP systolic 91–133; BP diastolic 40–80; PULSE 87–116; RESP 20–32
[2018-06-03] MEDS: PIPER-TAZO 3.375 GM IV (PMX) 100 ML IVPB SCH ×2 (00:21→06:01)
[2018-06-03] MEDS: morphine 2 MG INJ IV PRN ×3 (00:26→21:24)
[2018-06-03] MEDS: NS + KCL 20 MEQ 1,000 ML IV SCH (07:20)
[2018-06-03] MEDS ORDERED: DEXTROSE 50% 50 ML SYRINGE IV ONE (07:30)
[2018-06-03] MEDS ORDERED: NA BICARBONATE 8.4% 50 ML SYG IV ONE (07:30)
[2018-06-03] MEDS ORDERED: INSULIN REGULAR, HUMAN 100 UNIT/1 ML 3ML VIAL IV ONE (07:30)
[2018-06-03] MEDS: LEVOTHYROXINE 50 MCG TAB PO SCH (08:14)
--- NOTE | 2018-06-03 08:53 | CONS ---
Consultation Date/Type/Reason Admit Date/Time May 28, 2018 at 17:52 Date of Consultation: Jun 03, 2018 Type of Consult Urology Reason for Consultation Difficulty inserting a Mensah catheter and no urine output when the catheter is inserted and irrigated Requesting Provider: JULY VALENTIN MD Date/Time of Note DATE: 06/03/18 TIME: 08:45 Hx of Present Illness This is a patient who had undergone a angiogram few days ago with retro peritoneal bleeding and bleeding from the femoral artery which had stopped. Patient was subsequently started on Coumadin but her hematocrit down the hemoglobin went down to 6.1 CAT scan was done which showed acute bleeding from the junction of the right external iliac artery and common femoral artery. Patient underwent iliac catheterization and angiogram and placement of a stent. The patient had a Mensah catheter which was not draining and the nurses tried to insert a new catheter unsuccessfully first but then they put the catheter in and irrigated it and no urine output. In fact what ever they they irrigated with they were not able to get it back. I came in and irrigated the Mensah but the irrigating fluid was coming around the Mensah and out. Then I went ahead and remove the Mensah catheter and inserted a new catheter. I inflated the balloon was 10 mL of sterile water and put a little traction on it to prevent the irrigating fluid from leaking around the catheter. I irrigated the catheter and it was able to obtain all the fluid that I irrigated with. This indicates that the catheter is in the bladder and that the bladder is empty and patient has no urine. That the patient does have a pelvic mass and that is painful. With her history of bleeding and retroperitoneal bleeding this mass could be a collection of blood. Patient will need abdominal and pelvic ultrasound and may be repeated the CAT scan to find out about this mass. I did talk to the nurses and they will contact Dr. Kilpatrick and the other physicians involved in her care. Past Medical History Home Meds Reported Medications Albuterol Sulfate* (Ventolin HFA*) 18 Gm Hfa.aer.ad, 2 PUFF INHALATION Q4H, #1 INHALER 05/26/18 Ergocalciferol (Vitamin D2) (VITAMIN D2) 50,000 Unit Capsule, 58296 UNIT PO [id number], CAP 05/23/18 Warfarin Sodium* (Coumadin*) 5 Mg Tablet, 5 MG PO Q TUES,THUR,SAT, TAB 05/23/18 Warfarin Sodium* (Coumadin*) 4 Mg Tablet, 4 MG PO Q MON,WED,FRI,SUN, TAB 05/23/18 Furosemide* (Furosemide*) 20 Mg Tablet, 20 MG PO DAILY, #60 TAB TAKE Q 2 DAYS 05/23/18 Simvastatin* (Zocor*) 20 Mg Tablet, 20 MG PO QHS, #30 TAB 05/23/18 Ranitidine Hcl* (Ranitidine Hcl*) 150 Mg Tablet, 150 MG PO HS, #30 TAB 05/23/18 Acetaminophen (Mapap) 500 Mg Capsule, 500 MG PO BID PRN for PAIN, CAP 05/23/18 Levothyroxine Sodium* (Levothyroxine Sodium*) 50 Mcg Tablet, 50 MCG PO BEFORE BREAKFAST, #30 TAB 05/23/18 Spironolactone* (Aldactone*) 25 Mg Tablet, 25 MG PO DAILY, #30 TAB 05/23/18 Beclomethasone Dipropionate (Qvar Redihaler (40 MCG)) 10.6 Gm Hfa.aeroba, 10.6 GM IH DAILY, INH 05/23/18 Amlodipine Besylate* (Norvasc*) 5 Mg Tablet, 5 MG PO BID, TAB 05/23/18 Losartan-Hydrochlorothiazide (Losartan-HCTZ) 100-25 Mg Tab, 1 TAB PO DAILY, TAB 05/23/18 Medications Current Medications Acetaminophen (Tylenol Tab) 650 mg Q4H PRN PO FEVER GREATER THAN 100.6 Last administered on 06/02/18at 11:12; Admin Dose 650 MG; Start 05/27/18 at 11:30 Morphine Sulfate (morphine) 2 mg Q2H PRN IV FOR NON CARDIAC PAIN (4-10) Last administered on 06/03/18at 06:01; Admin Dose 2 MG; Start 05/27/18 at 11:30 Al Hydrox/Mg Hydrox/Simethicone (Mag-Al Plus) 30 ml Q4H PRN PO GASTROINTESTINAL UPSET; Start 05/27/18 at 11:30 Ondansetron HCl (Zofran Inj) 4 mg Q4H PRN IV NAUSEA AND/OR VOMITING Last administered on 06/02/18at 22:59; Admin Dose 4 MG; Start 05/27/18 at 11:30 Levothyroxine Sodium (Synthroid) 50 mcg BEFORE BREAKFAST PO Last administered on 06/03/18 08:14; Admin Dose 50 MCG; Start 05/30/18 at 07:00 Mometasone Furoate (Asmanex) 1 puff DAILY INH Last administered on 06/02/18 08:53; Admin Dose 1 PUFF; Start 05/29/18 at 11:00 Atorvastatin Calcium (Lipitor) 10 mg DAILY@21 PO Last administered on 06/01/18at 20:46; Admin Dose 10 MG; Start 05/29/18 at 21:00 Latanoprost (Xalatan) 1 drop HS BOTH EYES Last administered on 06/02/18at 22:26; Admin Dose 1 DROP; Start 06/01/18 at 21:00 Amlodipine Besylate (Norvasc) 5 mg DAILY PO ; Start 06/03/18 at 09:00 Norepinephrine 16 mg/Dextrose 250 ml @ 0.94 mls/hr TITRATE IV ; Start 06/02/18 at 15:30 Vancomycin HCl (Vanco Iv Per Pharmacy) VANCOMYCIN PER PHARMACY PER PROTOCOL XX ; Start 06/02/18 at 16:00 Piperacillin Sod/ Tazobactam Sod 100 ml @ 200 mls/hr Q6 IVPB Last administered on 06/03/18at 06:01; Admin Dose 200 MLS/HR; Start 06/02/18 at 18:00 Potassium Chloride/Sodium Chloride 1,000 ml @ 75 mls/hr [id number] IV Last administered on 06/02/18at 22:26; Admin Dose 75 MLS/HR; Start 06/02/18 at 18:00 Famotidine (Pepcid Iv) 20 mg BID IV Last administered on 06/02/18at 22:26; Admin Dose 20 MG; Start 06/02/18 at 21:00 Vancomycin HCl 250 ml @ 125 mls/hr Q24H IVPB ; Start 06/03/18 at 20:00 Phenylephrine HCl 40 mg/Dextrose 250 ml @ 37.5 mls/hr TITRATE IV ; Start 06/02/18 at 19:30 Allergies: Coded Allergies: No Known Allergy (Unverified , 05/26/18) Social History Smoking Status: Never smoker Exam/Review of Systems Exam Vitals Vital Signs Date Temp Pulse Resp B/P (MAP) Pulse Ox O2 O2 Flow FiO2 Time Delivery Rate 06/03/18 88 26 109/64 97 Nasal 3.0 06:00 (79) Cannula 06/03/18 97.8 04:00 Intake and Output 06/02/18 06/02/18 06/03/18 1515:00 23:00 07:00 IntakeIntake Total 301.0 ml 1600 ml 974.999 ml BalanceBalance 301.0 ml 1600 ml 974.999 ml Results Result Diagram: 06/03/18 0434 06/03/18 0434 Results 24hrs Laboratory Tests Test 06/02/18 10:16 06/02/18 13:37 06/02/18 16:16 06/02/18 16:17 Activated 77.2 *H 102.7 *H Partial Thrombopl ast Time White Blood Count 12.4 #H 12.0 H Red Blood Count 3.51 L 3.02 L Hemoglobin 10.9 L 9.4 L Hematocrit 32.9 L 28.5 L Mean Corpuscular 93.7 94.4 Volume Mean Corpuscular 31.1 31.1 Hemoglobin Mean Corpuscular 33.1 33.0 Hemoglobin Concen t Red Cell 14.2 14.2 Distribution Width Platelet Count 206 # 172 Mean Platelet 10.4 9.7 Volume Immature 0.900 H 1.300 H Granulocytes % Neutrophils % 82.8 H 85.3 H Lymphocytes % 11.6 L 6.9 L Monocytes % 3.7 6.3 Eosinophils % 0.7 0.0 Basophils % 0.3 0.2 Nucleated Red 0.0 0.0 Blood Cells % Immature 0.110 H 0.160 H Granulocytes # Neutrophils # 10.3 H 10.2 H Lymphocytes # 1.4 0.8 Monocytes # 0.5 0.8 Eosinophils # 0.1 0.0 Basophils # 0.0 0.0 Nucleated Red 0.0 0.0 Blood Cells # Lactic Acid Level 5.5 *H Sodium Level 136 Potassium Level 3.9 Chloride Level 102 Carbon Dioxide 27 Level Anion Gap 7 Blood Urea 13 Nitrogen Creatinine 1.00 Est Glomerular 56 L Filtrat Rate mL/min Glucose Level 203 Calcium Level 8.1 L Test 06/02/18 17:56 06/03/18 00:40 06/03/18 04:34 06/03/18 05:11 Hemoglobin 6.1 #*L 12.1 # 12.3 Hematocrit 19.3 #L 36.1 #L 37.5 White Blood Count 15.9 #H Red Blood Count 3.94 #L Mean Corpuscular 95.2 Volume Mean Corpuscular 31.2 Hemoglobin Mean Corpuscular 32.8 Hemoglobin Concen t Red Cell 15.3 H Distribution Width Platelet Count 140 Mean Platelet 10.2 Volume Immature 1.200 H Granulocytes % Neutrophils % 83.4 H Lymphocytes % 6.9 L Monocytes % 8.3 Eosinophils % 0.0 Basophils % 0.2 Nucleated Red 0.0 Blood Cells % Immature 0.190 H Granulocytes # Neutrophils # 13.3 H Lymphocytes # 1.1 Monocytes # 1.3 H Eosinophils # 0.0 Basophils # 0.0 Nucleated Red 0.0 Blood Cells # Prothrombin Time 20.3 #H Prothrombin Time 1.6 Ratio INR International 1.73 Normalized Ratio Sodium Level 136 Potassium Level 6.0 #H Chloride Level 108 Carbon Dioxide 20 L Level Anion Gap 8 Blood Urea 21 H Nitrogen Creatinine 1.94 H Est Glomerular 26 L Filtrat Rate mL/min Glucose Level 139 # Calcium Level 8.1 L Lab Scanned BLOOD TRANSFUSIO Report N Medications Medication Current Medications Acetaminophen (Tylenol Tab) 650 mg Q4H PRN PO FEVER GREATER THAN 100.6 Last administered on 06/02/18 11:12; Admin Dose 650 MG; Start 05/27/18 at 11:30 Morphine Sulfate (morphine) 2 mg Q2H PRN IV FOR NON CARDIAC PAIN (4-10) Last administered on 06/03/18 06:01; Admin Dose 2 MG; Start 05/27/18 at 11:30 Al Hydrox/Mg Hydrox/Simethicone (Mag-Al Plus) 30 ml Q4H PRN PO GASTROINTESTINAL UPSET; Start 05/27/18 at 11:30 Ondansetron HCl (Zofran Inj) 4 mg Q4H PRN IV NAUSEA AND/OR VOMITING Last administered on 06/02/18 22:59; Admin Dose 4 MG; Start 05/27/18 at 11:30 Levothyroxine Sodium (Synthroid) 50 mcg BEFORE BREAKFAST PO Last administered on 06/03/18 08:14; Admin Dose 50 MCG; Start 05/30/18 at 07:00 Mometasone Furoate (Asmanex) 1 puff DAILY INH Last administered on 2/21/19at 08 :53; Admin Dose 1 PUFF; Start 05/29/18 at 11:00 Atorvastatin Calcium (Lipitor) 10 mg DAILY@21 PO Last administered on 06/01/18at 20:46; Admin Dose 10 MG; Start 05/29/18 at 21:00 Latanoprost (Xalatan) 1 drop HS BOTH EYES Last administered on 06/02/18at 22:26; Admin Dose 1 DROP; Start 06/01/18 at 21:00 Amlodipine Besylate (Norvasc) 5 mg DAILY PO ; Start 06/03/18 at 09:00 Norepinephrine 16 mg/Dextrose 250 ml @ 0.94 mls/hr TITRATE IV ; Start 06/02/18 at 15:30 Vancomycin HCl (Vanco Iv Per Pharmacy) VANCOMYCIN PER PHARMACY PER PROTOCOL XX ; Start 06/02/18 at 16:00 Piperacillin Sod/ Tazobactam Sod 100 ml @ 200 mls/hr Q6 IVPB Last administered on 06/03/18at 06:01; Admin Dose 200 MLS/HR; Start 06/02/18 at 18:00 Potassium Chloride/Sodium Chloride 1,000 ml @ 75 mls/hr [id number] IV Last administered on 06/02/18at 22:26; Admin Dose 75 MLS/HR; Start 06/02/18 at 18:00 Famotidine (Pepcid Iv) 20 mg BID IV Last administered on 06/02/18at 22:26; Admin Dose 20 MG; Start 06/02/18 at 21:00 Vancomycin HCl 250 ml @ 125 mls/hr Q24H IVPB ; Start 06/03/18 at 20:00 Phenylephrine HCl 40 mg/Dextrose 250 ml @ 37.5 mls/hr TITRATE IV ; Start 06/02/18 at 19:30 JOAQUIN DE LEON MD Jun 03, 2018 08:52
[2018-06-03] MEDS ORDERED: AMLODIPINE 5 MG TAB PO SCH (09:00)
[2018-06-03] MEDS: FAMOTIDINE 20 MG INJ IV SCH ×2 (10:42→20:25)
--- NOTE | 2018-06-03 10:46 | PN ---
Date/Time of Note Date/Time of Note DATE: 06/03/18 TIME: 10:23 Assessment/Plan VTE Prophylaxis Risk score [place] [facility] [place] risk: 5 SCD applied (from [facility] [place] Yes SCD contraindicated: other Pharmacological prophylaxis: other Pharm contraindication: other Lines/Catheters IV Catheter Type (from [facility]): Peripheral IV Urinary Cath still in place: No Assessment/Plan Assessment/Plan - Oliguria 2/2/ Possible Acute Tubular Necrosis - Nephro consult- Dr Laughlin on case - possible HD if Renal functions do not improve - STAT BMP - Stat CXR Oliguria- - urology on case - Abdominal US - fu results - Edema BLE 2/2 renal failure - Hyperkalemia - per nephro -Coronary arteries, status post left heart catheterization with no significant obstructive coronary artery disease by Dr. Moreno on 05/27/2018. - per cardio -Retroperitoneal bleed. - Dr. Kilpatrick is following in vascular surgery consultation -POSSIBLE Plan for drain placement by IR -Anemia of acute blood loss, status post blood transfusion, continue to monitor hemoglobin and hematocrit. -Status post mitral valve replacement with mechanical valve in 1999 in [facility]. Continue heparin drip and Coumadin. Monitor PT, PTT and INR. -HTN, continue Norvasc -Hyperlipidemia -Hypothyroidism, continue levothyroxine -History of asthma Further recommendations based on clinical course. Plan of care discussed with Dr. Painter. Result Diagram: 06/03/18 0434 06/03/18 0434 Results 24hrs Laboratory Tests Test 06/02/18 13:37 06/02/18 16:16 06/02/18 16:17 06/02/18 17:56 White Blood Count 12.4 #H 12.0 H Red Blood Count 3.51 L 3.02 L Hemoglobin 10.9 L 9.4 L 6.1 #*L Hematocrit 32.9 L 28.5 L 19.3 #L Mean Corpuscular 93.7 94.4 Volume Mean Corpuscular 31.1 31.1 Hemoglobin Mean Corpuscular 33.1 33.0 Hemoglobin Concen t Red Cell 14.2 14.2 Distribution Width Platelet Count 206 # 172 Mean Platelet 10.4 9.7 Volume Immature 0.900 H 1.300 H Granulocytes % Neutrophils % 82.8 H 85.3 H Lymphocytes % 11.6 L 6.9 L Monocytes % 3.7 6.3 Eosinophils % 0.7 0.0 Basophils % 0.3 0.2 Nucleated Red 0.0 0.0 Blood Cells % Immature 0.110 H 0.160 H Granulocytes # Neutrophils # 10.3 H 10.2 H Lymphocytes # 1.4 0.8 Monocytes # 0.5 0.8 Eosinophils # 0.1 0.0 Basophils # 0.0 0.0 Nucleated Red 0.0 0.0 Blood Cells # Lactic Acid Level 5.5 *H Activated 102.7 *H Partial Thrombopl ast Time Sodium Level 136 Potassium Level 3.9 Chloride Level 102 Carbon Dioxide 27 Level Anion Gap 7 Blood Urea 13 Nitrogen Creatinine 1.00 Est Glomerular 56 L Filtrat Rate mL/min Glucose Level 203 Calcium Level 8.1 L Test 06/03/18 00:40 06/03/18 04:34 06/03/18 05:11 Hemoglobin 12.1 # 12.3 Hematocrit 36.1 #L 37.5 White Blood Count 15.9 #H Red Blood Count 3.94 #L Mean Corpuscular 95.2 Volume Mean Corpuscular 31.2 Hemoglobin Mean Corpuscular 32.8 Hemoglobin Concen t Red Cell 15.3 H Distribution Width Platelet Count 140 Mean Platelet 10.2 Volume Immature 1.200 H Granulocytes % Neutrophils % 83.4 H Lymphocytes % 6.9 L Monocytes % 8.3 Eosinophils % 0.0 Basophils % 0.2 Nucleated Red 0.0 Blood Cells % Immature 0.190 H Granulocytes # Neutrophils # 13.3 H Lymphocytes # 1.1 Monocytes # 1.3 H Eosinophils # 0.0 Basophils # 0.0 Nucleated Red 0.0 Blood Cells # Prothrombin Time 20.3 #H Prothrombin Time 1.6 Ratio INR International 1.73 Normalized Ratio Sodium Level 136 Potassium Level 6.0 #H Chloride Level 108 Carbon Dioxide 20 L Level Anion Gap 8 Blood Urea 21 H Nitrogen Creatinine 1.94 H Est Glomerular 26 L Filtrat Rate mL/min Glucose Level 139 # Calcium Level 8.1 L Lab Scanned BLOOD TRANSFUSIO Report N Subjective 24 Hr Interval Summary Free Text/Dictation Patient seen at 10:00 - Alert/ awake/ responsive - Family at bed side - dawit Laughlin- possible plan for HD if Kidney function do not improve. Abdominal US result pending. Dr Painter spoke with Dr Malekmdawit barroso Dr for possible drain placement . Constitutional: requiring O2 Respiratory: no complaints Cardiovascular: no complaints Gastrointestinal: pain Genitourinary: other (no urine) Musculoskeletal: other (generelized weakness) Skin: no complaints Neurologic: no complaints Endocrine: no complaints Exam/Review of Systems Exam Vitals Vital Signs Date Temp Pulse Resp B/P (MAP) Pulse Ox O2 O2 Flow FiO2 Time Delivery Rate 06/03/18 88 26 109/64 97 Nasal 3.0 06:00 (79) Cannula 06/03/18 97.8 04:00 Intake and Output 06/02/18 06/02/18 06/03/18 1414:59 22:59 06:59 IntakeIntake Total 301.6 ml 1507.4 ml 1074.999 ml BalanceBalance 301.6 ml 1507.4 ml 1074.999 ml Constitutional: alert, well developed, frail Psych: nl mood/affect Head: normocephalic Eyes: EOMI, nl lids, nl sclera ENMT: nl external ears & nose Neck: non-tender Respiratory: diminished breath sounds (at bases bilaterally) Cardiovascular: nl pulses, other (s1s2) Gastrointestinal: soft, tender Musculoskeletal: muscle weakness Extremities: edema Neurological: nl speech, other (alert/responsive) Skin: nl turgor Lymph: nontender Results Results 24hrs Laboratory Tests Test 06/02/18 13:37 06/02/18 16:16 06/02/18 16:17 06/02/18 17:56 White Blood Count 12.4 #H 12.0 H Red Blood Count 3.51 L 3.02 L Hemoglobin 10.9 L 9.4 L 6.1 #*L Hematocrit 32.9 L 28.5 L 19.3 #L Mean Corpuscular 93.7 94.4 Volume Mean Corpuscular 31.1 31.1 Hemoglobin Mean Corpuscular 33.1 33.0 Hemoglobin Concen t Red Cell 14.2 14.2 Distribution Width Platelet Count 206 # 172 Mean Platelet 10.4 9.7 Volume Immature 0.900 H 1.300 H Granulocytes % Neutrophils % 82.8 H 85.3 H Lymphocytes % 11.6 L 6.9 L Monocytes % 3.7 6.3 Eosinophils % 0.7 0.0 Basophils % 0.3 0.2 Nucleated Red 0.0 0.0 Blood Cells % Immature 0.110 H 0.160 H Granulocytes # Neutrophils # 10.3 H 10.2 H Lymphocytes # 1.4 0.8 Monocytes # 0.5 0.8 Eosinophils # 0.1 0.0 Basophils # 0.0 0.0 Nucleated Red 0.0 0.0 Blood Cells # Lactic Acid Level 5.5 *H Activated 102.7 *H Partial Thrombopl ast Time Sodium Level 136 Potassium Level 3.9 Chloride Level 102 Carbon Dioxide 27 Level Anion Gap 7 Blood Urea 13 Nitrogen Creatinine 1.00 Est Glomerular 56 L Filtrat Rate mL/min Glucose Level 203 Calcium Level 8.1 L Test 06/03/18 00:40 06/03/18 04:34 06/03/18 05:11 Hemoglobin 12.1 # 12.3 Hematocrit 36.1 #L 37.5 White Blood Count 15.9 #H Red Blood Count 3.94 #L Mean Corpuscular 95.2 Volume Mean Corpuscular 31.2 Hemoglobin Mean Corpuscular 32.8 Hemoglobin Concen t Red Cell 15.3 H Distribution Width Platelet Count 140 Mean Platelet 10.2 Volume Immature 1.200 H Granulocytes % Neutrophils % 83.4 H Lymphocytes % 6.9 L Monocytes % 8.3 Eosinophils % 0.0 Basophils % 0.2 Nucleated Red 0.0 Blood Cells % Immature 0.190 H Granulocytes # Neutrophils # 13.3 H Lymphocytes # 1.1 Monocytes # 1.3 H Eosinophils # 0.0 Basophils # 0.0 Nucleated Red 0.0 Blood Cells # Prothrombin Time 20.3 #H Prothrombin Time 1.6 Ratio INR International 1.73 Normalized Ratio Sodium Level 136 Potassium Level 6.0 #H Chloride Level 108 Carbon Dioxide 20 L Level Anion Gap 8 Blood Urea 21 H Nitrogen Creatinine 1.94 H Est Glomerular 26 L Filtrat Rate mL/min Glucose Level 139 # Calcium Level 8.1 L Lab Scanned BLOOD TRANSFUSIO Report N Medications Medication Current Medications Acetaminophen (Tylenol Tab) 650 mg Q4H PRN PO FEVER GREATER THAN 100.6 Last administered on 06/02/18at 11:12; Admin Dose 650 MG; Start 05/27/18 at 11:30 Morphine Sulfate (morphine) 2 mg Q2H PRN IV FOR NON CARDIAC PAIN (4-10) Last administered on 06/03/18at 06:01; Admin Dose 2 MG; Start 05/27/18 at 11:30 Al Hydrox/Mg Hydrox/Simethicone (Mag-Al Plus) 30 ml Q4H PRN PO GASTROINTESTINAL UPSET; Start 05/27/18 at 11:30 Ondansetron HCl (Zofran Inj) 4 mg Q4H PRN IV NAUSEA AND/OR VOMITING Last administered on 06/02/18 22:59; Admin Dose 4 MG; Start 05/27/18 at 11:30 Levothyroxine Sodium (Synthroid) 50 mcg BEFORE BREAKFAST PO Last administered on 06/03/18 08:14; Admin Dose 50 MCG; Start 05/30/18 at 07:00 Mometasone Furoate (Asmanex) 1 puff DAILY INH Last administered on 06/02/18 08:53; Admin Dose 1 PUFF; Start 05/29/18 at 11:00 Atorvastatin Calcium (Lipitor) 10 mg DAILY@21 PO Last administered on 06/01/18 20:46; Admin Dose 10 MG; Start 05/29/18 at 21:00 Latanoprost (Xalatan) 1 drop HS BOTH EYES Last administered on 06/02/18 22:26; Admin Dose 1 DROP; Start 06/01/18 at 21:00 Amlodipine Besylate (Norvasc) 5 mg DAILY PO ; Start 06/03/18 at 09:00 Norepinephrine 16 mg/Dextrose 250 ml @ 0.94 mls/hr TITRATE IV ; Start 06/02/18 at 15:30 Vancomycin HCl (Vanco Iv Per Pharmacy) VANCOMYCIN PER PHARMACY PER PROTOCOL XX ; Start 06/02/18 at 16:00 Piperacillin Sod/ Tazobactam Sod 100 ml @ 200 mls/hr Q6 IVPB Last administered on 06/03/18at 06:01; Admin Dose 200 MLS/HR; Start 06/02/18 at 18:00 Potassium Chloride/Sodium Chloride 1,000 ml @ 75 mls/hr [id number] IV Last administered on 06/02/18 22:26; Admin Dose 75 MLS/HR; Start 06/02/18 at 18:00 Famotidine (Pepcid Iv) 20 mg BID IV Last administered on 06/02/18 22:26; Admin Dose 20 MG; Start 06/02/18 at 21:00 Vancomycin HCl 250 ml @ 125 mls/hr Q24H IVPB ; Start 06/03/18 at 20:00 Phenylephrine HCl 40 mg/Dextrose 250 ml @ 37.5 mls/hr TITRATE IV ; Start 06/02/18 at 19:30 DELICIA MATUTE Jun 03, 2018 10:40
--- NOTE | 2018-06-03 11:16 | CONS ---
Assessment/Plan Assessment/Plan Hospital Course (Demo Recall) IMP: 1.cad s/p LHC with no sig obstructive cad 2.HTN 3.RP Bleed s/p transfusions now stable and tolerating heparin/coumadin loading. Then had recurrent bled overnight now s/p covered stent to [employer]/Ext iliac 4.HL 5.MVR-mechanical 6.anemia 7.Hypothyroid 8. FOURNIER-negative Head CT 9. Fevers-101 yesterday with positive ua 10. UTI 11.ARF-? Contrast induced 12. 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 Renal now following - Consultation Date/Type/Reason Admit Date/Time May 28, 2018 at 17:52 Initial Consult Date 05/28/18 Type of Consult Cardiology Reason for Consultation Aortic stenosis/sob/abnl mpi Requesting Provider: JULY VALENTIN MD Date/Time of Note DATE: 06/03/18 TIME: 11:11 Exam/Review of Systems Vital Signs Vitals Vital Signs Date Temp Pulse Resp B/P (MAP) Pulse Ox O2 O2 Flow FiO2 Time Delivery Rate 06/03/18 88 26 109/64 97 Nasal 3.0 06:00 (79) Cannula 06/03/18 97.8 04:00 Intake and Output 06/02/18 06/02/18 06/03/18 1414:59 22:59 06:59 IntakeIntake Total 301.6 ml 1507.4 ml 1074.999 ml BalanceBalance 301.6 ml 1507.4 ml 1074.999 ml Exam Exam Review of Systems: CONSTITUTIONAL: No fevers, chills. PULMONARY: No sob CARDIOVASCULAR: No chest pain/palpitations GASTROINTESTINAL: No nausea/vomiting. GENITOURINARY: No hematuria/dysuria. MUSCULOSKELETAL: No myagias/arthalgias. PSYCHIATRIC: The patient denies depression. NEUROLOGIC: No weakness Constitutional: alert Psych: no complaints Head: normocephalic ENMT: mucosa pink and moist Neck: supple, jvd (9 cm water) Respiratory: clear to auscultation Cardiovascular: regular rate and rhythm Gastrointestinal: soft, non-tender Musculoskeletal: muscle tone (normal) Extremities: edema (trace/B) Neurological: focal weakness (mild weakness of LLE) Labs Result Diagram: 06/03/18 1022 06/03/18 1022 Results 24hrs Laboratory Tests Test 06/02/18 13:37 06/02/18 16:16 06/02/18 16:17 06/02/18 17:56 White Blood Count 12.4 #H 12.0 H Red Blood Count 3.51 L 3.02 L Hemoglobin 10.9 L 9.4 L 6.1 #*L Hematocrit 32.9 L 28.5 L 19.3 #L Mean Corpuscular 93.7 94.4 Volume Mean Corpuscular 31.1 31.1 Hemoglobin Mean Corpuscular 33.1 33.0 Hemoglobin Concen t Red Cell 14.2 14.2 Distribution Width Platelet Count 206 # 172 Mean Platelet 10.4 9.7 Volume Immature 0.900 H 1.300 H Granulocytes % Neutrophils % 82.8 H 85.3 H Lymphocytes % 11.6 L 6.9 L Monocytes % 3.7 6.3 Eosinophils % 0.7 0.0 Basophils % 0.3 0.2 Nucleated Red 0.0 0.0 Blood Cells % Immature 0.110 H 0.160 H Granulocytes # Neutrophils # 10.3 H 10.2 H Lymphocytes # 1.4 0.8 Monocytes # 0.5 0.8 Eosinophils # 0.1 0.0 Basophils # 0.0 0.0 Nucleated Red 0.0 0.0 Blood Cells # Lactic Acid Level 5.5 *H Activated 102.7 *H Partial Thrombopl ast Time Sodium Level 136 Potassium Level 3.9 Chloride Level 102 Carbon Dioxide 27 Level Anion Gap 7 Blood Urea 13 Nitrogen Creatinine 1.00 Est Glomerular 56 L Filtrat Rate mL/min Glucose Level 203 Calcium Level 8.1 L Test 06/03/18 00:40 06/03/18 04:34 06/03/18 05:11 06/03/18 10:22 Hemoglobin 12.1 # 12.3 11.6 L Hematocrit 36.1 #L 37.5 35.0 L White Blood Count 15.9 #H 15.5 H Red Blood Count 3.94 #L 3.75 L Mean Corpuscular 95.2 93.3 Volume Mean Corpuscular 31.2 30.9 Hemoglobin Mean Corpuscular 32.8 33.1 Hemoglobin Concen t Red Cell 15.3 H 15.4 H Distribution Width Platelet Count 140 162 Mean Platelet 10.2 10.8 H Volume Immature 1.200 H 0.800 H Granulocytes % Neutrophils % 83.4 H 84.0 H Lymphocytes % 6.9 L 6.7 L Monocytes % 8.3 8.3 Eosinophils % 0.0 0.0 Basophils % 0.2 0.2 Nucleated Red 0.0 0.0 Blood Cells % Immature 0.190 H 0.120 H Granulocytes # Neutrophils # 13.3 H 13.0 H Lymphocytes # 1.1 1.0 Monocytes # 1.3 H 1.3 H Eosinophils # 0.0 0.0 Basophils # 0.0 0.0 Nucleated Red 0.0 0.0 Blood Cells # Prothrombin Time 20.3 #H Prothrombin Time 1.6 Ratio INR International 1.73 Normalized Ratio Sodium Level 136 138 Potassium Level 6.0 #H 5.2 H Chloride Level 108 106 Carbon Dioxide 20 L 23 Level Anion Gap 8 9 Blood Urea 21 H 25 H Nitrogen Creatinine 1.94 H 2.23 H Est Glomerular 26 L 22 L Filtrat Rate mL/min Glucose Level 139 # 146 Calcium Level 8.1 L 8.2 L Lab Scanned BLOOD TRANSFUSIO Report N Lactic Acid Level 3.9 *H Test 06/03/18 10:26 Bedside Glucose 168 Medications Medications Current Medications Acetaminophen (Tylenol Tab) 650 mg Q4H PRN PO FEVER GREATER THAN 100.6 Last administered on 06/02/18at 11:12; Admin Dose 650 MG; Start 05/27/18 at 11:30 Morphine Sulfate (morphine) 2 mg Q2H PRN IV FOR NON CARDIAC PAIN (4-10) Last administered on 06/03/18at 06:01; Admin Dose 2 MG; Start 05/27/18 at 11:30 Al Hydrox/Mg Hydrox/Simethicone (Mag-Al Plus) 30 ml Q4H PRN PO GASTROINTESTINAL UPSET; Start 05/27/18 at 11:30 Ondansetron HCl (Zofran Inj) 4 mg Q4H PRN IV NAUSEA AND/OR VOMITING Last administered on 06/02/18at 22:59; Admin Dose 4 MG; Start 05/27/18 at 11:30 Levothyroxine Sodium (Synthroid) 50 mcg BEFORE BREAKFAST PO Last administered on 06/03/18at 08:14; Admin Dose 50 MCG; Start 05/30/18 at 07:00 Mometasone Furoate (Asmanex) 1 puff DAILY INH Last administered on 06/02/18at 08:53; Admin Dose 1 PUFF; Start 05/29/18 at 11:00 Atorvastatin Calcium (Lipitor) 10 mg DAILY@21 PO Last administered on 06/01/18at 20:46; Admin Dose 10 MG; Start 05/29/18 at 21:00 Latanoprost (Xalatan) 1 drop HS BOTH EYES Last administered on 06/02/18at 22:26; Admin Dose 1 DROP; Start 06/01/18 at 21:00 Amlodipine Besylate (Norvasc) 5 mg DAILY PO ; Start 06/03/18 at 09:00 Norepinephrine 16 mg/Dextrose 250 ml @ 0.94 mls/hr TITRATE IV ; Start 06/02/18 at 15:30 Vancomycin HCl (Vanco Iv Per Pharmacy) VANCOMYCIN PER PHARMACY PER PROTOCOL XX ; Start 06/02/18 at 16:00 Potassium Chloride/Sodium Chloride 1,000 ml @ 75 mls/hr [id number] IV Last administered on 06/02/18at 22:26; Admin Dose 75 MLS/HR; Start 06/02/18 at 18:00 Famotidine (Pepcid Iv) 20 mg BID IV Last administered on 06/03/18at 10:42; Admin Dose 20 MG; Start 06/02/18 at 21:00 Vancomycin HCl 250 ml @ 125 mls/hr Q24H IVPB ; Start 06/03/18 at 20:00; Status Future Hold Phenylephrine HCl 40 mg/Dextrose 250 ml @ 37.5 mls/hr TITRATE IV ; Start 06/02/18 at 19:30 Piperacillin Sod/ Tazobactam Sod 50 ml @ 100 mls/hr Q6 IVPB ; Start 06/03/18 at 12:00 CHRIS LAZAR Jun 03, 2018 11:16
[2018-06-03] MEDS: PIPER-TAZO 2.25 GM/NS 50 ML IVPB SCH ×3 (12:35→23:43)
[2018-06-03] MEDS ORDERED: FUROSEMIDE 40 MG INJ IV ONE (14:00)
--- NOTE | 2018-06-03 14:07 | CONS ---
[facility] HCIS Consult Follow-up Patient Name: Quyen Sexton Unit Number: [id number] Date of : 1955 Patient Status: Admitted Inpatient Attending Doctor: July Valentin MD Edit: SHARI MOLINA M.D. on 06/04/18 @ 20:24 Jesse: I discussed the management with RADIOLOGY INTERVENTIONAL PHYSICIAN Alan and agree. Assessment/Plan Assessment/Plan Hospital Course (Demo Recall) - Sepsis (fever, leukocytosis, tachycardia, lactic acidosis) with hypotension d/t UTI +/- infected hematoma with superimposed SIRS d/t acute blood loss - responded to IVF bolus - GNR UTI - Right femoral artery bleeding with a pseudoaneurysm, s/p Covered stent placem ent 6 x 100 mm right common femoral artery and right external iliac artery, Abdominal aortogram, Catheter introduction to the abdominal aorta, interpretation supervision of the aortogram, Ultrasound guidance into the central artery 06/02/2018 - Oliguric FORREST - S/p C 05/27/2018 showing no significant obstructive CAD - CAD s/p CABG in [place] in 1982 - H/o MVR with mechanical valve, in 1999 - Retroperitoneal bleed - Cholelithiasis without e/o acute cholecystitis - Acute anemia requiring PRBC - Hypertension - Hyperlipidemia - Hypothyroidism - Asthma - S/p FOURNIER - CT head shows no acute findings Recommendations: - DC Vancomycin especially in lieu of worsening renal function - Continue Zosyn (06/02/2018-) for now; s/p ceftriaxone 06/02/2018 - F/u blood cx (NGTD), urine cx (GNR), procalcitonin (in process) - Serial lactic acid Management d/w EDGING CATCHER Winnie, pt's grandson, and with Dr. Molina. Also briefly d/w Dr. Valentin later. Critical care time spent: 45 min Consultation Date/Type/Reason Admit Date/Time May 28, 2018 at 17:52 Initial Consult Date 06/02/18 Type of Consult Infectious Disease Requesting Provider: JULY VALENTIN MD Date/Time of Note DATE: 06/03/18 TIME: 13:58 24 HR Interval Summary Free Text/Dictation CT abd/pelvis showed increased pelvic hematoma d/t active bleeding and pt was transfused PRBC for anemia d/t acute blood loss. Pt underwent repair of right common femoral artery and right external iliac artery last night by Dr. Kilpatrick. Pt now with decreased urine output and worsening renal function per d/w pt's family and nursing. Family states pt denies pain, SOB, n/v/d, dysuria. C/o generalized weakness cesilia to BLE. Exam/Review of Systems Exam Vitals Vital Signs Date Temp Pulse Resp B/P (MAP) Pulse Ox O2 O2 Flow FiO2 Time Delivery Rate 06/03/18 110 12:00 06/03/18 26 109/64 97 Nasal 3.0 06:00 (79) Cannula 06/03/18 97.8 04:00 Intake and Output 06/02/18 06/02/18 06/03/18 1515:00 23:00 07:00 IntakeIntake Total 301.0 ml 1600 ml 974.999 ml BalanceBalance 301.0 ml 1600 ml 974.999 ml Exam Constitutional: alert, oriented, well developed, frail, obese Head: normocephalic, atraumatic Eyes: nl conjunctiva, nl lids, nl sclera ENMT: nl external ears & nose, nl nasal mucosa & septum, mucosa pink and moist Neck: supple, Respiratory: diminished breath sounds Cardiovascular: nl pulses, other (regular rhythm, mildly tachycardic) Gastrointestinal: soft (semi-soft), distended, other (now with normal skin color) Genitourinary-Female: other (FC with small amount urine output) Extremities: normal pulses; No edema Neurological: nl mental status Skin: nl turgor; No rash or lesions Results Result Diagram: 06/03/18 1022 06/03/18 1022 Results 24hrs Laboratory Tests Test 06/02/18 16:16 06/02/18 16:17 06/02/18 17:56 06/03/18 00:40 Activated 102.7 *H Partial Thrombopl ast Time White Blood Count 12.0 H Red Blood Count 3.02 L Hemoglobin 9.4 L 6.1 #*L 12.1 # Hematocrit 28.5 L 19.3 #L 36.1 #L Mean Corpuscular 94.4 Volume Mean Corpuscular 31.1 Hemoglobin Mean Corpuscular 33.0 Hemoglobin Concen t Red Cell 14.2 Distribution Width Platelet Count 172 Mean Platelet 9.7 Volume Immature 1.300 H Granulocytes % Neutrophils % 85.3 H Lymphocytes % 6.9 L Monocytes % 6.3 Eosinophils % 0.0 Basophils % 0.2 Nucleated Red 0.0 Blood Cells % Immature 0.160 H Granulocytes # Neutrophils # 10.2 H Lymphocytes # 0.8 Monocytes # 0.8 Eosinophils # 0.0 Basophils # 0.0 Nucleated Red 0.0 Blood Cells # Sodium Level 136 Potassium Level 3.9 Chloride Level 102 Carbon Dioxide 27 Level Anion Gap 7 Blood Urea 13 Nitrogen Creatinine 1.00 Est Glomerular 56 L Filtrat Rate mL/min Glucose Level 203 Calcium Level 8.1 L Test 06/03/18 04:34 06/03/18 05:11 06/03/18 10:22 06/03/18 10:26 White Blood Count 15.9 #H 15.5 H Red Blood Count 3.94 #L 3.75 L Hemoglobin 12.3 11.6 L Hematocrit 37.5 35.0 L Mean Corpuscular 95.2 93.3 Volume Mean Corpuscular 31.2 30.9 Hemoglobin Mean Corpuscular 32.8 33.1 Hemoglobin Concen t Red Cell 15.3 H 15.4 H Distribution Width Platelet Count 140 162 Mean Platelet 10.2 10.8 H Volume Immature 1.200 H 0.800 H Granulocytes % Neutrophils % 83.4 H 84.0 H Lymphocytes % 6.9 L 6.7 L Monocytes % 8.3 8.3 Eosinophils % 0.0 0.0 Basophils % 0.2 0.2 Nucleated Red 0.0 0.0 Blood Cells % Immature 0.190 H 0.120 H Granulocytes # Neutrophils # 13.3 H 13.0 H Lymphocytes # 1.1 1.0 Monocytes # 1.3 H 1.3 H Eosinophils # 0.0 0.0 Basophils # 0.0 0.0 Nucleated Red 0.0 0.0 Blood Cells # Prothrombin Time 20.3 #H Prothrombin Time 1.6 Ratio INR International 1.73 Normalized Ratio Sodium Level 136 138 Potassium Level 6.0 #H 5.2 H Chloride Level 108 106 Carbon Dioxide 20 L 23 Level Anion Gap 8 9 Blood Urea 21 H 25 H Nitrogen Creatinine 1.94 H 2.23 H Est Glomerular 26 L 22 L Filtrat Rate mL/min Glucose Level 139 # 146 Calcium Level 8.1 L 8.2 L Lab Scanned BLOOD TRANSFUSIO Report N Lactic Acid Level 3.9 *H Bedside Glucose 168 Imaging Imaging KUB 06/03/2018: Residual contrast in both kidneys and renal collecting systems with mild right hydronephrosis. Cholelithiasis. Abd US 06/03/2018: 1. Multiple mobile stones within the gallbladder. No significant thickening of the gallbladder wall. 2. Mild right hydronephrosis. 3. Small amount of free fluid in the right upper abdomen. CXR 06/03/2018: 1. Worse appearance of the bibasilar atelectasis. 2. No other change from the 06/02/2018 chest radiograph. Renal US 06/03/2018: 1. Mild right hydronephrosis and trace perinephric fluid. No intrarenal calcifications demonstrated. 2. Left kidney appears normal. 3. Heterogeneous collection within the pelvis corresponds with pelvic hematoma demonstrated on recent CT. CT abd/pelvis 06/02/2018: 1. There is a large pelvic hematoma present. The hematoma measures 15 cm AP by 15 cm transverse by 11 cm cranial-caudal. The hematoma has increased in size when compared to 05/27/2018. 2. There is contrast material seen entering the hematoma, indicating continued active bleeding. 3. Calcified gallstones in the gallbladder. No secondary signs of cholecystitis. No biliary dilatation. 4. Severe cardiomegaly is noted. 5. The liver demonstrates decreased attenuation, consistent with hepatic steatosis. The liver margin is irregular , and mild perihepatic ascites noted. Findings are consistent with hepatic cirrhosis. No focal liver mass demonstrated. This is unchanged. Medications Medication Current Medications Acetaminophen (Tylenol Tab) 650 mg Q4H PRN PO FEVER GREATER THAN 100.6 Last administered on 06/02/18at 11:12; Admin Dose 650 MG; Start 05/27/18 at 11:30 Morphine Sulfate (morphine) 2 mg Q2H PRN IV FOR NON CARDIAC PAIN (4-10) Last administered on 06/03/18at 06:01; Admin Dose 2 MG; Start 05/27/18 at 11:30 Al Hydrox/Mg Hydrox/Simethicone (Mag-Al Plus) 30 ml Q4H PRN PO GASTROINTESTINAL UPSET; Start 05/27/18 at 11:30 Ondansetron HCl (Zofran Inj) 4 mg Q4H PRN IV NAUSEA AND/OR VOMITING Last administered on 06/02/18 22:59; Admin Dose 4 MG; Start 05/27/18 at 11:30 Levothyroxine Sodium (Synthroid) 50 mcg BEFORE BREAKFAST PO Last administered on 06/03/18 08:14; Admin Dose 50 MCG; Start 05/30/18 at 07:00 Mometasone Furoate (Asmanex) 1 puff DAILY INH Last administered on 06/02/18 08:53; Admin Dose 1 PUFF; Start 05/29/18 at 11:00 Atorvastatin Calcium (Lipitor) 10 mg DAILY@21 PO Last administered on 06/01/18 20:46; Admin Dose 10 MG; Start 05/29/18 at 21:00 Latanoprost (Xalatan) 1 drop HS BOTH EYES Last administered on 06/02/18 22:26; Admin Dose 1 DROP; Start 06/01/18 at 21:00 Amlodipine Besylate (Norvasc) 5 mg DAILY PO ; Start 06/03/18 at 09:00; Status Hold Norepinephrine 16 mg/Dextrose 250 ml @ 0.94 mls/hr TITRATE IV ; Start 06/02/18 at 15:30 Vancomycin HCl (Vanco Iv Per Pharmacy) VANCOMYCIN PER PHARMACY PER PROTOCOL XX ; Start 06/02/18 at 16:00 Potassium Chloride/Sodium Chloride 1,000 ml @ 75 mls/hr [id number] IV Last admi nistered on 06/02/18 22:26; Admin Dose 75 MLS/HR; Start 06/02/18 at 18:00 Famotidine (Pepcid Iv) 20 mg BID IV Last administered on 06/03/18at 10:42; Admin Dose 20 MG; Start 06/02/18 at 21:00 Vancomycin HCl 250 ml @ 125 mls/hr Q24H IVPB ; Start 06/03/18 at 20:00; Status Future Hold Phenylephrine HCl 40 mg/Dextrose 250 ml @ 37.5 mls/hr TITRATE IV ; Start 06/02/18 at 19:30 Piperacillin Sod/ Tazobactam Sod 50 ml @ 100 mls/hr Q6 IVPB Last administered on 06/03/18at 12:35; Admin Dose 100 MLS/HR; Start 06/03/18 at 12:00 Miscellaneous Information (*Rx Drug Level Order Reminder*) RANDOM VANCO LEVEL... ONCE ONCE XX ; Start 06/04/18 at 05:00; Stop 06/04/18 at 05:01 KISHORE JARAMILLO NP Jun 03, 2018 14:07
--- NOTE | 2018-06-03 15:12 | CONS ---
Assessment/Plan Assessment/Plan Hospital Course 62 F who multiple comorbidities, who is admitted to the [facility] ICU following elective cardiac surgery. She was noted to have b/l LE swelling and ? numbness, for which neurology is consulted. She notes isolated LLE sensory change, as well as significant weakness in that limb, which is concerning for an acute neurologic process such as a cerebral infarction vs. a femoral neuropathy.. The presence of diminished reflexes on the affected side favors the latter consideration.. CT A/P 06/02 shows a large pelvic hematoma. Of note, periprocedural hemorrhage following femoral artery catheterization is a known cause a compressive femoral neuropathy. CT Head is unremarkable P: OK to defer neurologic imaging for now Pelvic hematoma management per IR Consider EMG/NCS in ~ 2 weeks for prognostication re: potential for recovery PT when able Consultation Date/Type/Reason Admit Date/Time May 28, 2018 at 17:52 Type of Consult Neurology Requesting Provider: JULY VALENTIN MD Date/Time of Note DATE: 06/03/18 TIME: 15:10 12 PT ROS completed and ow neg Exam/Review of Systems Exam Vitals Vital Signs Date Temp Pulse Resp B/P (MAP) Pulse Ox O2 O2 Flow FiO2 Time Delivery Rate 06/03/18 110 12:00 06/03/18 26 109/64 97 Nasal 3.0 06:00 (79) Cannula 06/03/18 97.8 04:00 Intake and Output 06/02/18 06/02/18 06/03/18 1515:00 23:00 07:00 IntakeIntake Total 301.0 ml 1600 ml 974.999 ml BalanceBalance 301.0 ml 1600 ml 974.999 ml Results Result Diagram: 06/03/18 1022 06/03/18 1022 Results 24hrs Laboratory Tests Test 06/02/18 16:16 06/02/18 16:17 06/02/18 17:56 06/03/18 00:40 Activated 102.7 *H Partial Thrombopl ast Time White Blood Count 12.0 H Red Blood Count 3.02 L Hemoglobin 9.4 L 6.1 #*L 12.1 # Hematocrit 28.5 L 19.3 #L 36.1 #L Mean Corpuscular 94.4 Volume Mean Corpuscular 31.1 Hemoglobin Mean Corpuscular 33.0 Hemoglobin Concen t Red Cell 14.2 Distribution Width Platelet Count 172 Mean Platelet 9.7 Volume Immature 1.300 H Granulocytes % Neutrophils % 85.3 H Lymphocytes % 6.9 L Monocytes % 6.3 Eosinophils % 0.0 Basophils % 0.2 Nucleated Red 0.0 Blood Cells % Immature 0.160 H Granulocytes # Neutrophils # 10.2 H Lymphocytes # 0.8 Monocytes # 0.8 Eosinophils # 0.0 Basophils # 0.0 Nucleated Red 0.0 Blood Cells # Sodium Level 136 Potassium Level 3.9 Chloride Level 102 Carbon Dioxide 27 Level Anion Gap 7 Blood Urea 13 Nitrogen Creatinine 1.00 Est Glomerular 56 L Filtrat Rate mL/min Glucose Level 203 Calcium Level 8.1 L Test 06/03/18 04:34 06/03/18 05:11 06/03/18 10:22 06/03/18 10:26 White Blood Count 15.9 #H 15.5 H Red Blood Count 3.94 #L 3.75 L Hemoglobin 12.3 11.6 L Hematocrit 37.5 35.0 L Mean Corpuscular 95.2 93.3 Volume Mean Corpuscular 31.2 30.9 Hemoglobin Mean Corpuscular 32.8 33.1 Hemoglobin Concen t Red Cell 15.3 H 15.4 H Distribution Width Platelet Count 140 162 Mean Platelet 10.2 10.8 H Volume Immature 1.200 H 0.800 H Granulocytes % Neutrophils % 83.4 H 84.0 H Lymphocytes % 6.9 L 6.7 L Monocytes % 8.3 8.3 Eosinophils % 0.0 0.0 Basophils % 0.2 0.2 Nucleated Red 0.0 0.0 Blood Cells % Immature 0.190 H 0.120 H Granulocytes # Neutrophils # 13.3 H 13.0 H Lymphocytes # 1.1 1.0 Monocytes # 1.3 H 1.3 H Eosinophils # 0.0 0.0 Basophils # 0.0 0.0 Nucleated Red 0.0 0.0 Blood Cells # Prothrombin Time 20.3 #H Prothrombin Time 1.6 Ratio INR International 1.73 Normalized Ratio Sodium Level 136 138 Potassium Level 6.0 #H 5.2 H Chloride Level 108 106 Carbon Dioxide 20 L 23 Level Anion Gap 8 9 Blood Urea 21 H 25 H Nitrogen Creatinine 1.94 H 2.23 H Est Glomerular 26 L 22 L Filtrat Rate mL/min Glucose Level 139 # 146 Calcium Level 8.1 L 8.2 L Lab Scanned BLOOD TRANSFUSIO Report N Lactic Acid Level 3.9 *H Bedside Glucose 168 Medications Medication Current Medications Acetaminophen (Tylenol Tab) 650 mg Q4H PRN PO FEVER GREATER THAN 100.6 Last administered on 06/02/18 11:12; Admin Dose 650 MG; Start 05/27/18 at 11:30 Morphine Sulfate (morphine) 2 mg Q2H PRN IV FOR NON CARDIAC PAIN (4-10) Last administered on 06/03/18 06:01; Admin Dose 2 MG; Start 05/27/18 at 11:30 Al Hydrox/Mg Hydrox/Simethicone (Mag-Al Plus) 30 ml Q4H PRN PO GASTROINTESTINAL UPSET; Start 05/27/18 at 11:30 Ondansetron HCl (Zofran Inj) 4 mg Q4H PRN IV NAUSEA AND/OR VOMITING Last administered on 06/02/18 22:59; Admin Dose 4 MG; Start 05/27/18 at 11:30 Levothyroxine Sodium (Synthroid) 50 mcg BEFORE BREAKFAST PO Last administered on 06/03/18 08:14; Admin Dose 50 MCG; Start 05/30/18 at 07:00 Mometasone Furoate (Asmanex) 1 puff DAILY INH Last administered on 06/02/18 08:53; Admin Dose 1 PUFF; Start 05/29/18 at 11:00 Atorvastatin Calcium (Lipitor) 10 mg DAILY@21 PO Last administered on 06/01/18 20:46; Admin Dose 10 MG; Start 05/29/18 at 21:00 Latanoprost (Xalatan) 1 drop HS BOTH EYES Last administered on 06/02/18 22:26; Admin Dose 1 DROP; Start 06/01/18 at 21:00 Amlodipine Besylate (Norvasc) 5 mg DAILY PO ; Start 06/03/18 at 09:00; Status Hold Norepinephrine 16 mg/Dextrose 250 ml @ 0.94 mls/hr TITRATE IV ; Start 06/02/18 at 15:30 Vancomycin HCl (Vanco Iv Per Pharmacy) VANCOMYCIN PER PHARMACY PER PROTOCOL XX ; Start 06/02/18 at 16:00 Potassium Chloride/Sodium Chloride 1,000 ml @ 75 mls/hr [id number] IV Last admin istered on 2/21/19at 22:26; Admin Dose 75 MLS/HR; Start 06/02/18 at 18:00 Famotidine (Pepcid Iv) 20 mg BID IV Last administered on 06/03/18at 10:42; Admin Dose 20 MG; Start 06/02/18 at 21:00 Vancomycin HCl 250 ml @ 125 mls/hr Q24H IVPB ; Start 06/03/18 at 20:00; Status Future Hold Phenylephrine HCl 40 mg/Dextrose 250 ml @ 37.5 mls/hr TITRATE IV ; Start 06/02/18 at 19:30 Piperacillin Sod/ Tazobactam Sod 50 ml @ 100 mls/hr Q6 IVPB Last administered on 06/03/18at 12:35; Admin Dose 100 MLS/HR; Start 06/03/18 at 12:00 Miscellaneous Information (*Rx Drug Level Order Reminder*) RANDOM VANCO LEVEL... ONCE ONCE XX ; Start 06/04/18 at 05:00; Stop 06/04/18 at 05:01 Past Medical History Home Meds Reported Medications Albuterol Sulfate* (Ventolin HFA*) 18 Gm Hfa.aer.ad, 2 PUFF INHALATION Q4H, #1 INHALER 05/26/18 Ergocalciferol (Vitamin D2) (VITAMIN D2) 50,000 Unit Capsule, 54285 UNIT PO [id number], CAP 05/23/18 Warfarin Sodium* (Coumadin*) 5 Mg Tablet, 5 MG PO Q TUES,THUR,SAT, TAB 05/23/18 Warfarin Sodium* (Coumadin*) 4 Mg Tablet, 4 MG PO Q MON,WED,FRI,SUN, TAB 05/23/18 Furosemide* (Furosemide*) 20 Mg Tablet, 20 MG PO DAILY, #60 TAB TAKE Q 2 DAYS 05/23/18 Simvastatin* (Zocor*) 20 Mg Tablet, 20 MG PO QHS, #30 TAB 05/23/18 Ranitidine Hcl* (Ranitidine Hcl*) 150 Mg Tablet, 150 MG PO HS, #30 TAB 05/23/18 Acetaminophen (Mapap) 500 Mg Capsule, 500 MG PO BID PRN for PAIN, CAP 05/23/18 Levothyroxine Sodium* (Levothyroxine Sodium*) 50 Mcg Tablet, 50 MCG PO BEFORE BREAKFAST, #30 TAB 05/23/18 Spironolactone* (Aldactone*) 25 Mg Tablet, 25 MG PO DAILY, #30 TAB 05/23/18 Beclomethasone Dipropionate (Qvar Redihaler (40 MCG)) 10.6 Gm Hfa.aeroba, 10.6 GM IH DAILY, INH 05/23/18 Amlodipine Besylate* (Norvasc*) 5 Mg Tablet, 5 MG PO BID, TAB 05/23/18 Losartan-Hydrochlorothiazide (Losartan-HCTZ) 100-25 Mg Tab, 1 TAB PO DAILY, TAB 05/23/18 Medications Current Medications Acetaminophen (Tylenol Tab) 650 mg Q4H PRN PO FEVER GREATER THAN 100.6 Last administered on 06/02/18at 11:12; Admin Dose 650 MG; Start 05/27/18 at 11:30 Morphine Sulfate (morphine) 2 mg Q2H PRN IV FOR NON CARDIAC PAIN (4-10) Last administered on 06/03/18at 06:01; Admin Dose 2 MG; Start 05/27/18 at 11:30 Al Hydrox/Mg Hydrox/Simethicone (Mag-Al Plus) 30 ml Q4H PRN PO GASTROINTESTINAL UPSET; Start 05/27/18 at 11:30 Ondansetron HCl (Zofran Inj) 4 mg Q4H PRN IV NAUSEA AND/OR VOMITING Last administered on 06/02/18at 22:59; Admin Dose 4 MG; Start 05/27/18 at 11:30 Levothyroxine Sodium (Synthroid) 50 mcg BEFORE BREAKFAST PO Last administered on 06/03/18at 08:14; Admin Dose 50 MCG; Start 05/30/18 at 07:00 Mometasone Furoate (Asmanex) 1 puff DAILY INH Last administered on 06/02/18at 08:53; Admin Dose 1 PUFF; Start 05/29/18 at 11:00 Atorvastatin Calcium (Lipitor) 10 mg DAILY@21 PO Last administered on 06/01/18at 20:46; Admin Dose 10 MG; Start 05/29/18 at 21:00 Latanoprost (Xalatan) 1 drop HS BOTH EYES Last administered on 06/02/18at 22:26; Admin Dose 1 DROP; Start 06/01/18 at 21:00 Amlodipine Besylate (Norvasc) 5 mg DAILY PO ; Start 06/03/18 at 09:00; Status Hold Norepinephrine 16 mg/Dextrose 250 ml @ 0.94 mls/hr TITRATE IV ; Start 06/02/18 at 15:30 Vancomycin HCl (Vanco Iv Per Pharmacy) VANCOMYCIN PER PHARMACY PER PROTOCOL XX ; Start 06/02/18 at 16:00 Potassium Chloride/Sodium Chloride 1,000 ml @ 75 mls/hr [id number] IV Last administered on 06/02/18at 22:26; Admin Dose 75 MLS/HR; Start 06/02/18 at 18:00 Famotidine (Pepcid Iv) 20 mg BID IV Last administered on 06/03/18at 10:42; Admin Dose 20 MG; Start 06/02/18 at 21:00 Vancomycin HCl 250 ml @ 125 mls/hr Q24H IVPB ; Start 06/03/18 at 20:00; Status Future Hold Phenylephrine HCl 40 mg/Dextrose 250 ml @ 37.5 mls/hr TITRATE IV ; Start 06/02/18 at 19:30 Piperacillin Sod/ Tazobactam Sod 50 ml @ 100 mls/hr Q6 IVPB Last administered on 06/03/18at 12:35; Admin Dose 100 MLS/HR; Start 06/03/18 at 12:00 Miscellaneous Information (*Rx Drug Level Order Reminder*) RANDOM VANCO LEVEL... ONCE ONCE XX ; Start 06/04/18 at 05:00; Stop 06/04/18 at 05:01 Allergies: Coded Allergies: No Known Allergy (Unverified , 05/26/18) Social History Smoking Status: Never smoker DELL BERNSTEIN NP Jun 03, 2018 15:12 JUSTUS JACKMAN Jun 03, 2018 15:52
--- NOTE | 2018-06-03 16:24 | PN ---
Date/Time of Note Date/Time of Note DATE: 06/03/18 TIME: 16:13 Assessment/Plan Lines/Catheters IV Catheter Type (from Nrs): Peripheral IV Mensah in Place (from Nrs): No Assessment/Plan Chief Complaint/Hosp Course Status post repair of right common femoral artery and external iliac artery No evidence of any bleeding Patient with minimal urine output Need drainage of the retroperitoneal blood. Interventional radiology with a percutaneous catheter Monitor vital signs Will monitor hemoglobin levels Subjective 24 Hr Interval Summary Constitutional: improved Pain Control: mild Exam/Review of Systems Vital Signs Vitals Vital Signs Date Temp Pulse Resp B/P (MAP) Pulse Ox O2 O2 Flow FiO2 Time Delivery Rate 06/03/18 110 12:00 06/03/18 26 109/64 97 Nasal 3.0 06:00 (79) Cannula 06/03/18 97.8 04:00 Intake and Output 06/02/18 06/02/18 06/03/18 1515:00 23:00 07:00 IntakeIntake Total 301.0 ml 1600 ml 974.999 ml BalanceBalance 301.0 ml 1600 ml 974.999 ml Exam ENMT: nl external ears & nose, nl lips & teeth, nl nasal mucosa & septum, mucosa pink and moist Neck: supple, non-tender Respiratory: clear to auscultation, normal air movement Cardiovascular: regular rate and rhythm, nl pulses Gastrointestinal: soft, nl liver, spleen, non-tender Musculoskeletal: nl extremities to inspection, nl gait and stance Results Result Diagram: 06/03/18 1602 06/03/18 1022 KIRILL CHRISTIAN MD Jun 03, 2018 16:24
[2018-06-03] MEDS: ONDANSETRON 4 MG INJ IV PRN ×2 (18:26→23:52)
[2018-06-03] MEDS ORDERED: VANCOMYCIN 1 GM 250 ML IVPB SCH (20:00)
--- NOTE | 2018-06-03 20:24 | CONS ---
DATE OF ADMISSION: 05/28/2018 DATE OF CONSULTATION: 06/03/2018 REASON FOR CONSULT: Acute kidney injury. PHYSICIAN REQUESTING CONSULT: Dr. July Valentin HISTORY OF PRESENT ILLNESS: This is a 62-year-old female with a past medical history of hypertension , dyslipidemia, history of CABG, history of mitral valve replacement with mechanical valve, who prese nted to [facility] with shortness of breath. The patient recently underwent cardia c stress test and echo revealing ischemia with possible severe . The patient underwent cardiac cat heterization and was subsequently discharged. The patient is now seen complaining of abdominal pain in the PACU. The patient had a CT scan that showed large amount of hemoperitoneum. The patient was subsequently admitted to [facility] for evaluation. The patient was then seen by a vascular surgeon, Dr. Kilpatrick. The patient was eventually taken to surgery due to worsening hemat adilson and had a stent placed in the right external iliac artery. Following the procedure, the patient became hypotensive, was transferred to intensive care unit, was given IV fluids, blood transfusion. The patient also had a Mensah catheter placed due to possibility of obstruction. In terms of patient's renal history, on admission, patient had a creatinine of 0.57 mg/dL. The patie nt's creatinine has increased to 1.94 mg/dL in the last 24 hours. The patient was also noted to have minimal urinary output. The patient was noted to have elevated potassium of 6.0 mg/dL. There have been no reports of any hemoptysis, hematemesis or hematochezia. PAST MEDICAL HISTORY: History of hypertension, history of dyslipidemia. PAST SURGICAL HISTORY: Status post CABG, status post mechanical mitral valve replacement. FAMILY HISTORY: No family history of kidney disease. SOCIAL HISTORY: She does not drink, smoke or do drugs. MEDICATIONS: The patient's medications have been reviewed. ALLERGIES: NO KNOWN DRUG ALLERGIES. REVIEW OF SYSTEMS: A 14-point review of systems conducted. Pertinent positives stated in the HPI, o therwise negative. PHYSICAL EXAMINATION: VITAL SIGNS: Blood pressure is 109/64, respirations 26, pulse 88, temperature 97.8. HEENT: Head is normocephalic. HEART: Shows a possible mechanical click. Regular rate. LUNGS: Show diminished breath sounds at the base. ABDOMEN: Soft, nontender to palpation. No rebound or guarding. EXTREMITIES: Negative for clubbing, cyanosis. Trace edema. DERMATOLOGIC: No rashes. MUSCULOSKELETAL: No joint effusion. NEUROLOGIC: No change in exam. LABORATORY DATA: Show a sodium of 138, potassium 5.2, chloride 106, BUN 25, creatinine 2.23, lactic acid 3.9, calcium 8.2. White count 15.5, hemoglobin 11.6, platelet count is 152. IMAGING STUDIES: X-ray has been reviewed and showed mild right-sided hydronephrosis. Abdominal ultr asound shows mild right-sided hydronephrosis. ASSESSMENT AND PLAN: This is a 62-year-old female who presents with: 1. Oligoanuric acute kidney injury with previous baseline creatinine of 0.56 mg/dL. Etiology of the acute kidney injury is likely secondary to acute tubular necrosis due to ischemic hypoperfusion and shock. The patient's urinalysis does show evidence of pyuria, hematuria. However, there is lower concepcion spicion for acute glomerulonephritis or vasculitis given the clinical presentation. Recommendation a t this point is to continue medical management. We will give the patient a diuretic challenge to see if the patient could be converted from oliguric to nonoliguric state. We will monitor potassium, re nal function and volume status closely. If renal function should further decline or if the patient s hould remain anuric, we will consider starting renal replacement therapy. 2. Hyperkalemia secondary to acute kidney injury in conjunction with potassium chloride supplementat ion. The patient is status post IV insulin and dextrose. Potassium levels have improved. We will m onitor closely. If the patient should develop further hyperkalemia, we would consider renal replacem ent therapy. 3. Anemia secondary to intraabdominal hematoma and bleed. The patient is status post blood transfus ion. Continue to monitor H and H levels. 4. Mineral bone disorder. Monitor calcium and phosphorus levels. 5. Retroperitoneal bleed possibly due to recent cardiac catheterization. The patient is status post stent placement in the external iliac artery per Vascular Surgery. Continue to monitor. 6. Coronary artery disease status post cardiac catheterization. Continue medical management. 7. Mechanical mitral valve. Continue to monitor. Follow up with Cardiology regarding possible anti coagulation, currently on hold. 8. Systemic inflammatory response syndrome, rule out sepsis. The patient is currently on antibiotic therapy. Follow up with Infectious Disease. 9. Hypothyroidism. Continue Synthroid. 10. Dyslipidemia. 11. History of asthma. Thank you, Dr. Valentin, for this interesting consult. It will be a pleasure to follow the patient w ith you throughout the hospital course. Please note I spent over 30 minutes of critical care time with this patient. Dictated By: GWYN FABIAN DO NR/NTS Conf#: [id number] DID#: [id number] CC: JULY VALENTIN MD; CHRIS LAZAR MD;*EndCC*
[2018-06-03] MEDS: LATANOPROST 0.005% 2.5 ML OPH BOTH EYES SCH (20:25)
[2018-06-03] MEDS: ATORVASTATIN 10 MG TAB PO SCH (20:25)
[2018-06-04] VITALS (25 sets, daily range): BP systolic 91–142; BP diastolic 39–114; PULSE 89–140; RESP 19–32
[2018-06-04] MEDS: ONDANSETRON 4 MG INJ IV PRN ×4 (03:39→21:16)
[2018-06-04] MEDS: PIPER-TAZO 2.25 GM/NS 50 ML IVPB SCH ×2 (05:26→12:52)
[2018-06-04] MEDS ORDERED: SODIUM POLYSTYRENE 15 GM KIT (POWDER + SORBITOL) PO ONE (07:00)
[2018-06-04] MEDS: FAMOTIDINE 20 MG INJ IV SCH (08:41)
[2018-06-04] MEDS: LEVOTHYROXINE 50 MCG TAB PO SCH (08:41)
[2018-06-04] MEDS: MOMETASONE 0.24 GM INHALER INH SCH ×2 (08:53→09:03)
--- NOTE | 2018-06-04 09:56 | CONS ---
Consult Date/Type/Reason Admit Date/Time May 28, 2018 at 17:52 Initial Consult Date 06/03/18 Requesting Provider: JULY VALENTIN MD Date/Time of Note DATE: 06/04/18 TIME: 09:48 Subjective 62-year-old female with a past medical history of hypertension, dyslipidemia, history of CABG, history of mitral valve replacement with mechanical valve, who presented to [facility] with shortness of breath. The patient recently underwent cardiac stress test and echo revealing ischemia with possible severe . The patient underwent cardiac catheterization and was subsequently discharged. The patient is now seen complaining of abdominal pain in the PACU. The patient had a CT scan that showed large amount of hemoperitoneum. The patient was subsequently admitted to [facility] for evaluation. The patient was then seen by a vascular surgeon, Dr. Kilpartick. The patient was eventually taken to surgery due to worsening hematoma and had a stent placed in the right external iliac artery. Following the procedure, the patient became hypotensive, was transferred to intensive care unit, was given IV fluids, blood transfusion. The patient also had a Mensah catheter placed due to possibility of obstruction. In terms of patient's renal history, on admission, patient had a creatinine of 0.57 mg/dL. The patient's creatinine has increased to 1.94 mg/dL in the last 24 hours. The patient was also noted to have minimal urinary output. The patient was noted to have elevated potassium of 6.0 mg/dL. There have been no reports of any hemoptysis, hematemesis or hematochezia. PHYSICAL EXAMINATION: HEENT: Head is normocephalic. HEART: Shows a possible mechanical click. Regular rate. LUNGS: Show diminished breath sounds at the base. ABDOMEN: Soft, nontender to palpation. No rebound or guarding. EXTREMITIES: Negative for clubbing, cyanosis. Trace edema. DERMATOLOGIC: No rashes. MUSCULOSKELETAL: No joint effusion. Objective Vitals Vital Signs Date Temp Pulse Resp B/P (MAP) Pulse Ox O2 O2 Flow FiO2 Time Delivery Rate 06/04/18 91 09:03 06/04/18 28 97/83 (88) 98 Nasal 2.0 07:00 Cannula 06/04/18 98.6 04:00 Intake and Output 06/03/18 06/03/18 06/04/18 1414:59 22:59 06:59 IntakeIntake Total 190 ml 50 ml 230 ml OutputOutput Total 230 ml 565 ml BalanceBalance 190 ml -180 ml -335 ml Results/Medications Result Diagram: 06/04/1843406/04/18 0435 Results 24 hrs Laboratory Tests Test 06/03/18 10:22 06/03/18 10:26 06/03/18 16:02 06/03/18 20:00 White Blood Count 15.5 H Red Blood Count 3.75 L Hemoglobin 11.6 L 11.1 L Hematocrit 35.0 L 33.6 L Mean Corpuscular 93.3 Volume Mean Corpuscular 30.9 Hemoglobin Mean Corpuscular 33.1 Hemoglobin Concen t Red Cell 15.4 H Distribution Width Platelet Count 162 Mean Platelet 10.8 H Volume Immature 0.800 H Granulocytes % Neutrophils % 84.0 H Lymphocytes % 6.7 L Monocytes % 8.3 Eosinophils % 0.0 Basophils % 0.2 Nucleated Red 0.0 Blood Cells % Immature 0.120 H Granulocytes # Neutrophils # 13.0 H Lymphocytes # 1.0 Monocytes # 1.3 H Eosinophils # 0.0 Basophils # 0.0 Nucleated Red 0.0 Blood Cells # Sodium Level 138 132 L Potassium Level 5.2 H 5.0 Chloride Level 106 102 Carbon Dioxide 23 23 Level Anion Gap 9 7 Blood Urea 25 H 29 H Nitrogen Creatinine 2.23 H 2.74 H Est Glomerular 22 L 18 L Filtrat Rate mL/min Glucose Level 146 212 Lactic Acid Level 3.9 *H Calcium Level 8.2 L 8.3 L Bedside Glucose 168 Urine Color MARGARITA Urine Clarity SLIGHTLY CLOUDY A Urine pH 7.0 Urine Specific 1.018 [place] Urine Ketones NEGATIVE Urine Nitrite NEGATIVE Urine Bilirubin NEGATIVE Urine NEGATIVE Urobilinogen Urine Leukocyte NEGATIVE Esterase Urine Microscopic > 182 H RBC Urine Microscopic 6 H WBC Urine Bacteria FEW A Urine Hemoglobin 3+ H Urine Random < 12.40 L Creatinine Urine Random 152 H Sodium Urine Glucose 2+ H Urine Total Protein Test 06/04/18 04:35 White Blood Count 13.0 H Red Blood Count 3.23 L Hemoglobin 10.0 L Hematocrit 29.9 L Mean Corpuscular 92.6 Volume Mean Corpuscular 31.0 Hemoglobin Mean Corpuscular 33.4 Hemoglobin Concen t Red Cell 15.1 H Distribution Width Platelet Count 155 Mean Platelet 11.0 H Volume Immature 0.700 H Granulocytes % Neutrophils % 88.1 H Lymphocytes % 4.8 L Monocytes % 6.2 Eosinophils % 0.0 Basophils % 0.2 Nucleated Red 0.0 Blood Cells % Immature 0.090 H Granulocytes # Neutrophils # 11.5 H Lymphocytes # 0.6 L Monocytes # 0.8 Eosinophils # 0.0 Basophils # 0.0 Nucleated Red 0.0 Blood Cells # Prothrombin Time 19.8 H Prothrombin Time 1.5 Ratio INR International 1.67 Normalized Ratio Sodium Level 137 Potassium Level 5.6 H Chloride Level 103 Carbon Dioxide 22 Level Anion Gap 12 Blood Urea 41 #H Nitrogen Creatinine 3.75 #H Est Glomerular 12 L Filtrat Rate mL/min Glucose Level 146 # Calcium Level 8.6 Home Meds Reported Medications Albuterol Sulfate* (Ventolin HFA*) 18 Gm Hfa.aer.ad, 2 PUFF INHALATION Q4H, #1 INHALER 05/26/18 Ergocalciferol (Vitamin D2) (VITAMIN D2) 50,000 Unit Capsule, 67719 UNIT PO [id number], CAP 05/23/18 Warfarin Sodium* (Coumadin*) 5 Mg Tablet, 5 MG PO Q TU,THUR,SAT, TAB 05/23/18 Warfarin Sodium* (Coumadin*) 4 Mg Tablet, 4 MG PO Q MON,WED,FRI,SUN, TAB 05/23/18 Furosemide* (Furosemide*) 20 Mg Tablet, 20 MG PO DAILY, #60 TAB TAKE Q 2 DAYS 05/23/18 Simvastatin* (Zocor*) 20 Mg Tablet, 20 MG PO QHS, #30 TAB 05/23/18 Ranitidine Hcl* (Ranitidine Hcl*) 150 Mg Tablet, 150 MG PO HS, #30 TAB 05/23/18 Acetaminophen (Mapap) 500 Mg Capsule, 500 MG PO BID PRN for PAIN, CAP 05/23/18 Levothyroxine Sodium* (Levothyroxine Sodium*) 50 Mcg Tablet, 50 MCG PO BEFORE BR EAKFAST, #30 TAB 05/23/18 Spironolactone* (Aldactone*) 25 Mg Tablet, 25 MG PO DAILY, #30 TAB 05/23/18 Beclomethasone Dipropionate (Qvar Redihaler (40 MCG)) 10.6 Gm Hfa.aeroba, 10.6 GM IH DAILY, INH 05/23/18 Amlodipine Besylate* (Norvasc*) 5 Mg Tablet, 5 MG PO BID, TAB 05/23/18 Losartan-Hydrochlorothiazide (Losartan-HCTZ) 100-25 Mg Tab, 1 TAB PO DAILY, TAB 05/23/18 Medications Current Medications Acetaminophen (Tylenol Tab) 650 mg Q4H PRN PO FEVER GREATER THAN 100.6 Last administered on 06/02/18at 11:12; Admin Dose 650 MG; Start 05/27/18 at 11:30 Morphine Sulfate (morphine) 2 mg Q2H PRN IV FOR NON CARDIAC PAIN (4-10) Last administered on 06/03/18at 21:24; Admin Dose 2 MG; Start 05/27/18 at 11:30 Al Hydrox/Mg Hydrox/Simethicone (Mag-Al Plus) 30 ml Q4H PRN PO GASTROINTESTINAL UPSET; Start 05/27/18 at 11:30 Ondansetron HCl (Zofran Inj) 4 mg Q4H PRN IV NAUSEA AND/OR VOMITING Last administered on 06/04/18 08:41; Admin Dose 4 MG; Start 05/27/18 at 11:30 Levothyroxine Sodium (Synthroid) 50 mcg BEFORE BREAKFAST PO Last administered on 06/04/18 08:41; Admin Dose 50 MCG; Start 05/30/18 at 07:00 Mometasone Furoate (Asmanex) 1 puff DAILY INH Last administered on 06/04/18 09:03; Admin Dose 1 PUFF; Start 05/29/18 at 11:00 Atorvastatin Calcium (Lipitor) 10 mg DAILY@21 PO Last administered on 06/03/18at 20:25; Admin Dose 10 MG; Start 05/29/18 at 21:00 Latanoprost (Xalatan) 1 drop HS BOTH EYES Last administered on 06/03/18 20:25; Admin Dose 1 DROP; Start 06/01/18 at 21:00 Amlodipine Besylate (Norvasc) 5 mg DAILY PO ; Start 06/03/18 at 09:00; Status Hold Norepinephrine 16 mg/Dextrose 250 ml @ 0.94 mls/hr TITRATE IV ; Start 06/02/18 at 15:30 Famotidine (Pepcid Iv) 20 mg BID IV Last administered on 2/23/19at 08:41; Admin Dose 20 MG; Start 06/02/18 at 21:00 Phenylephrine HCl 40 mg/Dextrose 250 ml @ 37.5 mls/hr TITRATE IV ; Start 06/02/18 at 19:30 Piperacillin Sod/ Tazobactam Sod 50 ml @ 100 mls/hr Q6 IVPB Last administered on 06/04/18at 05:26; Admin Dose 100 MLS/HR; Start 06/03/18 at 12:00 Assessment/Plan Hospital Course (Demo Recall) 1. Oligoanuric acute kidney injury with previous baseline creatinine of 0.56 mg/dL. Etiology of the acute kidney injury is likely secondary to acute tubular necrosis due to ischemic hypoperfusion and shock and possible contrast nephrotoxicity.. The patient's urinalysis does show evidence of pyuria, hematuria. However, there is lower suspicion for acute glomerulonephritis or vasculitis given the clinical presentation. Recommendation at this point is to continue medical management. We will give the patient another diuretic challenge to see if the patient could be converted from oliguric to nonoliguric state. We will monitor potassium, renal function and volume status closely. If renal function should further decline or if the patient should remain anuric, we will consider starting renal replacement therapy. 2. Hyperkalemia secondary to acute kidney injury in conjunction with potassium chloride supplementation. The patient is status post IV insulin and dextrose. Potassium levels have worsened overnight.. We will monitor closely. give lasix and kayexalate. If the patient should develop further hyperkalemia, we would consider renal replacement therapy. 3. Anemia secondary to intraabdominal hematoma and bleed. The patient is status post blood transfusion. Continue to monitor H and H levels. 4. Mineral bone disorder. Monitor calcium and phosphorus levels. 5. Retroperitoneal bleed possibly due to recent cardiac catheterization. The patient is status post stent placement in the external iliac artery per Vascular Surgery. Continue to monitor. 6. Coronary artery disease status post cardiac catheterization. Continue medical management. 7. Mechanical mitral valve. Continue to monitor. Follow up with Cardiology regarding possible anticoagulation, currently on hold. 8. Systemic inflammatory response syndrome, rule out sepsis. The patient is currently on antibiotic therapy. Follow up with Infectious Disease. 9. Hypothyroidism. Continue Synthroid. 10. Dyslipidemia. 11. History of asthma. INA LANDIS MD Jun 04, 2018 09:56
--- NOTE | 2018-06-04 10:04 | CONS ---
Assessment/Plan Assessment/Plan Hospital Course 62 F who multiple comorbidities, who is admitted to the [facility] ICU following elective cardiac surgery. She was noted to have b/l LE swelling and ? numbness, for which neurology is consulted. She notes isolated LLE sensory change, as well as significant weakness in that limb, which is concerning for an acute neurologic process such as a cerebral infarction vs. a femoral neuropathy.. The presence of diminished reflexes on the affected side favors the latter consideration.. CT A/P 06/02 shows a large pelvic hematoma. Of note, periprocedural hemorrhage following femoral artery catheterization is a known cause a compressive femoral neuropathy. CT Head is unremarkable P: OK to defer neurologic imaging for now Pelvic hematoma management per IR Consider EMG/NCS in ~ 2 weeks for prognostication re: potential for recovery PT when able Consultation Date/Type/Reason Admit Date/Time May 28, 2018 at 17:52 Type of Consult Neurology Reason for Consultation Left leg weakness/numbness Requesting Provider: JULY VALENTIN MD Date/Time of Note DATE: 06/04/18 TIME: 10:04 24 HR Interval Summary Free Text/Dictation Continues ICU care Exam Vital Signs Vitals Vital Signs Date Temp Pulse Resp B/P (MAP) Pulse Ox O2 O2 Flow FiO2 Time Delivery Rate 06/04/18 91 09:03 06/04/18 28 97/83 (88) 98 Nasal 2.0 07:00 Cannula 06/04/18 98.6 04:00 Intake and Output 06/03/18 06/03/18 06/04/18 1515:00 23:00 07:00 IntakeIntake Total 190 ml 50 ml 230 ml OutputOutput Total 240 ml 555 ml BalanceBalance 190 ml -190 ml -325 ml DELL BERNSTEIN NP Jun 04, 2018 10:04 JUSTUS JACKMAN Jun 04, 2018 11:37
--- NOTE | 2018-06-04 10:52 | CONS ---
Assessment/Plan Assessment/Plan Hospital Course (Demo Recall) IMP: 1.cad s/p LHC with no sig obstructive cad 2.HTN 3.RP Bleed s/p transfusions now stable and tolerating heparin/coumadin loading. Then had recurrent bled overnight now s/p covered stent to [employer]/Ext iliac 4.HL 5.MVR-mechanical 6.anemia-worseing, ? ongoing bleeding versus residual from intial bleed/L femoral after repair of R [employer]/illiac 7.Hypothyroid 8. FOURNIER-negative Head CT 9. Fevers-101 yesterday with positive ua 10. UTI 11.ARF-? Contrast induced/compression from hematoma 12. Coagulopathy-likely secondary to coumadin 14. LE weakness-? compression from hematoma and excerbated by femoral c ompression after cath Recc: -ICU -hold norvasc -Continue statin -F/U urine cx -Contine abx's -F/U load manager/K closely. Renal now following. Probable need for HD -Will check arterial/venous dopplers of LE -Will recheck Hgb early this afternoon and if stable will resume anticoagulation for valve Consultation Date/Type/Reason Admit Date/Time May 28, 2018 at 17:52 Initial Consult Date 05/28/18 Type of Consult Cardiology Reason for Consultation sob Requesting Provider: JULY VALENTIN MD Date/Time of Note DATE: 06/04/18 TIME: 10:46 Exam/Review of Systems Vital Signs Vitals Vital Signs Date Temp Pulse Resp B/P (MAP) Pulse Ox O2 O2 Flow FiO2 Time Delivery Rate 06/04/18 91 09:03 06/04/18 28 97/83 (88) 98 Nasal 2.0 07:00 Cannula 06/04/18 98.6 04:00 Intake and Output 06/03/18 06/03/18 06/04/18 1515:00 23:00 07:00 IntakeIntake Total 190 ml 50 ml 230 ml OutputOutput Total 240 ml 555 ml BalanceBalance 190 ml -190 ml -325 ml Exam Exam Review of Systems: CONSTITUTIONAL: No fevers, chills. PULMONARY: No sob CARDIOVASCULAR: No chest pain/palpitations GASTROINTESTINAL: No nausea/vomiting. GENITOURINARY: No hematuria/dysuria. MUSCULOSKELETAL: No myagias/arthalgias. PSYCHIATRIC: The patient denies depression. NEUROLOGIC: Mild LE weakness Constitutional: alert Psych: no complaints Head: normocephalic ENMT: mucosa pink and moist Neck: supple, jvd (9 cm water) Respiratory: diminished breath sounds (at bases/B) Cardiovascular: regular rate and rhythm Gastrointestinal: soft, non-tender Musculoskeletal: muscle tone (normal) Extremities: edema (none) Neurological: other (LE weakness) Labs Result Diagram: 06/04/18 0435 06/04/18 0435 Results 24hrs Laboratory Tests Test 06/03/18 16:02 06/03/18 20:00 06/04/18 04:35 Hemoglobin 11.1 L 10.0 L Hematocrit 33.6 L 29.9 L Sodium Level 132 L 137 Potassium Level 5.0 5.6 H Chloride Level 102 103 Carbon Dioxide Level 23 22 Anion Gap 7 12 Blood Urea Nitrogen 29 H 41 #H Creatinine 2.74 H 3.75 #H Est Glomerular Filtrat 18 L 12 L Rate mL/min Glucose Level 212 146 # Calcium Level 8.3 L 8.6 Urine Color MARGARITA Urine Clarity SLIGHTLY CLOUDY A Urine pH 7.0 Urine Specific [place] 1.018 Urine Ketones NEGATIVE Urine Nitrite NEGATIVE Urine Bilirubin NEGATIVE Urine Urobilinogen NEGATIVE Urine Leukocyte Esterase NEGATIVE Urine Microscopic RBC > 182 H Urine Microscopic WBC 6 H Urine Bacteria FEW A Urine Hemoglobin 3+ H Urine Random Creatinine < 12.40 L Urine Random Sodium 152 H Urine Glucose 2+ H Urine Total Protein White Blood Count 13.0 H Red Blood Count 3.23 L Mean Corpuscular Volume 92.6 Mean Corpuscular Hemoglobin 31.0 Mean Corpuscular 33.4 Hemoglobin Concent Red Cell Distribution Width 15.1 H Platelet Count 155 Mean Platelet Volume 11.0 H Immature Granulocytes % 0.700 H Neutrophils % 88.1 H Lymphocytes % 4.8 L Monocytes % 6.2 Eosinophils % 0.0 Basophils % 0.2 Nucleated Red Blood Cells % 0.0 Immature Granulocytes # 0.090 H Neutrophils # 11.5 H Lymphocytes # 0.6 L Monocytes # 0.8 Eosinophils # 0.0 Basophils # 0.0 Nucleated Red Blood Cells # 0.0 Prothrombin Time 19.8 H Prothrombin Time Ratio 1.5 INR International 1.67 Normalized Ratio Medications Medications Current Medications Acetaminophen (Tylenol Tab) 650 mg Q4H PRN PO FEVER GREATER THAN 100.6 Last administered on 2/21/19at 11:12; Admin Dose 650 MG; Start 05/27/18 at 11:30 Morphine Sulfate (morphine) 2 mg Q2H PRN IV FOR NON CARDIAC PAIN (4-10) Last administered on 06/03/18 21:24; Admin Dose 2 MG; Start 05/27/18 at 11:30 Al Hydrox/Mg Hydrox/Simethicone (Mag-Al Plus) 30 ml Q4H PRN PO GASTROINTESTINAL UPSET; Start 05/27/18 at 11:30 Ondansetron HCl (Zofran Inj) 4 mg Q4H PRN IV NAUSEA AND/OR VOMITING Last administered on 06/04/18 08:41; Admin Dose 4 MG; Start 05/27/18 at 11:30 Levothyroxine Sodium (Synthroid) 50 mcg BEFORE BREAKFAST PO Last administered on 06/04/18 08:41; Admin Dose 50 MCG; Start 05/30/18 at 07:00 Mometasone Furoate (Asmanex) 1 puff DAILY INH Last administered on 06/04/18 09:03; Admin Dose 1 PUFF; Start 05/29/18 at 11:00 Atorvastatin Calcium (Lipitor) 10 mg DAILY@21 PO Last administered on 06/03/18 20:25; Admin Dose 10 MG; Start 05/29/18 at 21:00 Latanoprost (Xalatan) 1 drop HS BOTH EYES Last administered on 06/03/18 20:25; Admin Dose 1 DROP; Start 06/01/18 at 21:00 Amlodipine Besylate (Norvasc) 5 mg DAILY PO ; Start 06/03/18 at 09:00; Status Hold Norepinephrine 16 mg/Dextrose 250 ml @ 0.94 mls/hr TITRATE IV ; Start 06/02/18 at 15:30 Famotidine (Pepcid Iv) 20 mg BID IV Last administered on 06/04/18 08:41; Admin Dose 20 MG; Start 06/02/18 at 21:00 Phenylephrine HCl 40 mg/Dextrose 250 ml @ 37.5 mls/hr TITRATE IV ; Start 06/02/18 at 19:30 Piperacillin Sod/ Tazobactam Sod 50 ml @ 100 mls/hr Q6 IVPB Last administered on 06/04/18 05:26; Admin Dose 100 MLS/HR; Start 06/03/18 at 12:00 Bumetanide 3 mg/ Dextrose 30 ml @ 10 mls/hr Q3H ONCE IV ; Start 06/04/18 at 11:00; Stop 06/04/18 at 13:59 CHRIS LAZAR Jun 04, 2018 10:52
[2018-06-04] MEDS ORDERED: BUMETANIDE 3 MG in DEXTROSE 5% 18 ML IV ONE (11:00)
--- NOTE | 2018-06-04 11:10 | PN ---
Date/Time of Note Date/Time of Note DATE: 06/04/18 TIME: 11:10 Assessment/Plan VTE Prophylaxis Risk score (from [facility] [place]0 risk: 8 SCD applied (from [facility] [place]): Yes Pharmacological prophylaxis: NA/contraindicated Pharm contraindication: bleeding Lines/Catheters IV Catheter Type (from [facility]): Saline Lock Urinary Cath still in place: Yes (PLACED IN BY DR. DE LEON) Reason Cath still needed: skin wounds contaminated by urine Assessment/Plan Result Diagram: 06/04/18 0435 06/04/18 0435 Results 24hrs Laboratory Tests Test 06/03/18 16:02 06/03/18 20:00 06/04/18 04:35 Hemoglobin 11.1 L 10.0 L Hematocrit 33.6 L 29.9 L Sodium Level 132 L 137 Potassium Level 5.0 5.6 H Chloride Level 102 103 Carbon Dioxide Level 23 22 Anion Gap 7 12 Blood Urea Nitrogen 29 H 41 #H Creatinine 2.74 H 3.75 #H Est Glomerular Filtrat 18 L 12 L Rate mL/min Glucose Level 212 146 # Calcium Level 8.3 L 8.6 Urine Color MARGARITA Urine Clarity SLIGHTLY CLOUDY A Urine pH 7.0 Urine Specific [place] 1.018 Urine Ketones NEGATIVE Urine Nitrite NEGATIVE Urine Bilirubin NEGATIVE Urine Urobilinogen NEGATIVE Urine Leukocyte Esterase NEGATIVE Urine Microscopic RBC > 182 H Urine Microscopic WBC 6 H Urine Bacteria FEW A Urine Hemoglobin 3+ H Urine Random Creatinine < 12.40 L Urine Random Sodium 152 H Urine Glucose 2+ H Urine Total Protein White Blood Count 13.0 H Red Blood Count 3.23 L Mean Corpuscular Volume 92.6 Mean Corpuscular Hemoglobin 31.0 Mean Corpuscular 33.4 Hemoglobin Concent Red Cell Distribution Width 15.1 H Platelet Count 155 Mean Platelet Volume 11.0 H Immature Granulocytes % 0.700 H Neutrophils % 88.1 H Lymphocytes % 4.8 L Monocytes % 6.2 Eosinophils % 0.0 Basophils % 0.2 Nucleated Red Blood Cells % 0.0 Immature Granulocytes # 0.090 H Neutrophils # 11.5 H Lymphocytes # 0.6 L Monocytes # 0.8 Eosinophils # 0.0 Basophils # 0.0 Nucleated Red Blood Cells # 0.0 Prothrombin Time 19.8 H Prothrombin Time Ratio 1.5 INR International 1.67 Normalized Ratio Subjective 24 Hr Interval Summary Free Text/Dictation Patient has pain in lower abdomen Exam/Review of Systems Exam Vitals Vital Signs Date Temp Pulse Resp B/P (MAP) Pulse Ox O2 O2 Flow FiO2 Time Delivery Rate 06/04/18 91 09:03 06/04/18 28 97/83 (88) 98 Nasal 2.0 07:00 Cannula 06/04/18 98.6 04:00 Intake and Output 06/03/18 06/03/18 06/04/18 1515:00 23:00 07:00 IntakeIntake Total 190 ml 50 ml 230 ml OutputOutput Total 240 ml 555 ml BalanceBalance 190 ml -190 ml -325 ml Constitutional: well developed Head: normocephalic, atraumatic Neck: supple Respiratory: clear to auscultation Cardiovascular: regular rate and rhythm Gastrointestinal: soft, non-tender Extremities: normal pulses Results Results 24hrs Laboratory Tests Test 06/03/18 16:02 06/03/18 20:00 06/04/18 04:35 Hemoglobin 11.1 L 10.0 L Hematocrit 33.6 L 29.9 L Sodium Level 132 L 137 Potassium Level 5.0 5.6 H Chloride Level 102 103 Carbon Dioxide Level 23 22 Anion Gap 7 12 Blood Urea Nitrogen 29 H 41 #H Creatinine 2.74 H 3.75 #H Est Glomerular Filtrat 18 L 12 L Rate mL/min Glucose Level 212 146 # Calcium Level 8.3 L 8.6 Urine Color MARGARITA Urine Clarity SLIGHTLY CLOUDY A Urine pH 7.0 Urine Specific [place] 1.018 Urine Ketones NEGATIVE Urine Nitrite NEGATIVE Urine Bilirubin NEGATIVE Urine Urobilinogen NEGATIVE Urine Leukocyte Esterase NEGATIVE Urine Microscopic RBC > 182 H Urine Microscopic WBC 6 H Urine Bacteria FEW A Urine Hemoglobin 3+ H Urine Random Creatinine < 12.40 L Urine Random Sodium 152 H Urine Glucose 2+ H Urine Total Protein White Blood Count 13.0 H Red Blood Count 3.23 L Mean Corpuscular Volume 92.6 Mean Corpuscular Hemoglobin 31.0 Mean Corpuscular 33.4 Hemoglobin Concent Red Cell Distribution Width 15.1 H Platelet Count 155 Mean Platelet Volume 11.0 H Immature Granulocytes % 0.700 H Neutrophils % 88.1 H Lymphocytes % 4.8 L Monocytes % 6.2 Eosinophils % 0.0 Basophils % 0.2 Nucleated Red Blood Cells % 0.0 Immature Granulocytes # 0.090 H Neutrophils # 11.5 H Lymphocytes # 0.6 L Monocytes # 0.8 Eosinophils # 0.0 Basophils # 0.0 Nucleated Red Blood Cells # 0.0 Prothrombin Time 19.8 H Prothrombin Time Ratio 1.5 INR International 1.67 Normalized Ratio Medications Medication Current Medications Acetaminophen (Tylenol Tab) 650 mg Q4H PRN PO FEVER GREATER THAN 100.6 Last administered on 06/02/18 11:12; Admin Dose 650 MG; Start 05/27/18 at 11:30 Morphine Sulfate (morphine) 2 mg Q2H PRN IV FOR NON CARDIAC PAIN (4-10) Last administered on 06/03/18 21:24; Admin Dose 2 MG; Start 05/27/18 at 11:30 Al Hydrox/Mg Hydrox/Simethicone (Mag-Al Plus) 30 ml Q4H PRN PO GASTROINTESTINAL UPSET; Start 05/27/18 at 11:30 Ondansetron HCl (Zofran Inj) 4 mg Q4H PRN IV NAUSEA AND/OR VOMITING Last administered on 06/04/18 08:41; Admin Dose 4 MG; Start 05/27/18 at 11:30 Levothyroxine Sodium (Synthroid) 50 mcg BEFORE BREAKFAST PO Last administered on 06/04/18 08:41; Admin Dose 50 MCG; Start 05/30/18 at 07:00 Mometasone Furoate (Asmanex) 1 puff DAILY INH Last administered on 06/04/18 09:03; Admin Dose 1 PUFF; Start 05/29/18 at 11:00 Atorvastatin Calcium (Lipitor) 10 mg DAILY@21 PO Last administered on 06/03/18 20:25; Admin Dose 10 MG; Start 05/29/18 at 21:00 Latanoprost (Xalatan) 1 drop HS BOTH EYES Last administered on 06/03/18 20:25; Admin Dose 1 DROP; Start 06/01/18 at 21:00 Amlodipine Besylate (Norvasc) 5 mg DAILY PO ; Start 06/03/18 at 09:00; Status Hold Norepinephrine 16 mg/Dextrose 250 ml @ 0.94 mls/hr TITRATE IV ; Start 06/02/18 at 15:30 Famotidine (Pepcid Iv) 20 mg BID IV Last administered on 06/04/18 08:41; Admin Dose 20 MG; Start 06/02/18 at 21:00 Phenylephrine HCl 40 mg/Dextrose 250 ml @ 37.5 mls/hr TITRATE IV ; Start 06/02/18 at 19:30 Piperacillin Sod/ Tazobactam Sod 50 ml @ 100 mls/hr Q6 IVPB Last administered on 06/04/18at 05:26; Admin Dose 100 MLS/HR; Start 06/03/18 at 12:00 Bumetanide 3 mg/ Dextrose 30 ml @ 10 mls/hr Q3H ONCE IV Last administered on 06/04/18at 10:49; Admin Dose 10 MLS/HR; Start 06/04/18 at 11:00; Stop 06/04/18 at 13:59 ABDIRASHID PRATHER Jun 04, 2018 11:10
--- NOTE | 2018-06-04 12:39 | CONS ---
Consult Date/Type/Reason Admit Date/Time May 28, 2018 at 17:52 Initial Consult Date 06/03/18 Type of Consultation: Urology Reason for Consultation Oliguria and pelvic hematoma Requesting Provider: JULY VALENTIN MD Date/Time of Note DATE: 06/04/18 TIME: 12:32 Subjective Patient has suprapubic pain. Mensah catheter in place. Objective Vitals Vital Signs Date Temp Pulse Resp B/P (MAP) Pulse Ox O2 O2 Flow FiO2 Time Delivery Rate 06/04/18 109 12:24 06/04/18 28 97/83 (88) 98 Nasal 2.0 07:00 Cannula 06/04/18 98.6 04:00 Intake and Output 06/03/18 06/03/18 06/04/18 1515:00 23:00 07:00 IntakeIntake Total 190 ml 50 ml 230 ml OutputOutput Total 240 ml 555 ml BalanceBalance 190 ml -190 ml -325 ml Exam Suprapubic mass corresponding to the hematoma seen on the CT scan. Urine output 95 mL in the past 24 hours. Results/Medications Result Diagram: 06/04/18 0435 06/04/18 0435 Results 24 hrs Laboratory Tests Test 06/03/18 16:02 06/03/18 20:00 06/04/18 04:35 Hemoglobin 11.1 L 10.0 L Hematocrit 33.6 L 29.9 L Sodium Level 132 L 137 Potassium Level 5.0 5.6 H Chloride Level 102 103 Carbon Dioxide Level 23 22 Anion Gap 7 12 Blood Urea Nitrogen 29 H 41 #H Creatinine 2.74 H 3.75 #H Est Glomerular Filtrat 18 L 12 L Rate mL/min Glucose Level 212 146 # Calcium Level 8.3 L 8.6 Urine Color MARGARITA Urine Clarity SLIGHTLY CLOUDY A Urine pH 7.0 Urine Specific [place] 1.018 Urine Ketones NEGATIVE Urine Nitrite NEGATIVE Urine Bilirubin NEGATIVE Urine Urobilinogen NEGATIVE Urine Leukocyte Esterase NEGATIVE Urine Microscopic RBC > 182 H Urine Microscopic WBC 6 H Urine Bacteria FEW A Urine Hemoglobin 3+ H Urine Random Creatinine < 12.40 L Urine Random Sodium 152 H Urine Glucose 2+ H Urine Total Protein White Blood Count 13.0 H Red Blood Count 3.23 L Mean Corpuscular Volume 92.6 Mean Corpuscular Hemoglobin 31.0 Mean Corpuscular 33.4 Hemoglobin Concent Red Cell Distribution Width 15.1 H Platelet Count 155 Mean Platelet Volume 11.0 H Immature Granulocytes % 0.700 H Neutrophils % 88.1 H Lymphocytes % 4.8 L Monocytes % 6.2 Eosinophils % 0.0 Basophils % 0.2 Nucleated Red Blood Cells % 0.0 Immature Granulocytes # 0.090 H Neutrophils # 11.5 H Lymphocytes # 0.6 L Monocytes # 0.8 Eosinophils # 0.0 Basophils # 0.0 Nucleated Red Blood Cells # 0.0 Prothrombin Time 19.8 H Prothrombin Time Ratio 1.5 INR International 1.67 Normalized Ratio Home Meds Reported Medications Albuterol Sulfate* (Ventolin HFA*) 18 Gm Hfa.aer.ad, 2 PUFF INHALATION Q4H, #1 INHALER 05/26/18 Ergocalciferol (Vitamin D2) (VITAMIN D2) 50,000 Unit Capsule, [address] UNIT PO [id number], CAP 05/23/18 Warfarin Sodium* (Coumadin*) 5 Mg Tablet, 5 MG PO Q TUES,THUR,SAT, TAB 05/23/18 Warfarin Sodium* (Coumadin*) 4 Mg Tablet, 4 MG PO Q MON,WED,FRI,SUN, TAB 05/23/18 Furosemide* (Furosemide*) 20 Mg Tablet, 20 MG PO DAILY, #60 TAB TAKE Q 2 DAYS 05/23/18 Simvastatin* (Zocor*) 20 Mg Tablet, 20 MG PO QHS, #30 TAB 05/23/18 Ranitidine Hcl* (Ranitidine Hcl*) 150 Mg Tablet, 150 MG PO HS, #30 TAB 05/23/18 Acetaminophen (Mapap) 500 Mg Capsule, 500 MG PO BID PRN for PAIN, CAP 05/23/18 Levothyroxine Sodium* (Levothyroxine Sodium*) 50 Mcg Tablet, 50 MCG PO BEFORE BREAKFAST, #30 TAB 05/23/18 Spironolactone* (Aldactone*) 25 Mg Tablet, 25 MG PO DAILY, #30 TAB 05/23/18 Beclomethasone Dipropionate (Qvar Redihaler (40 MCG)) 10.6 Gm Hfa.aeroba, 10.6 GM IH DAILY, INH 05/23/18 Amlodipine Besylate* (Norvasc*) 5 Mg Tablet, 5 MG PO BID, TAB 05/23/18 Losartan-Hydrochlorothiazide (Losartan-HCTZ) 100-25 Mg Tab, 1 TAB PO DAILY, TAB 05/23/18 Medications Current Medications Acetaminophen (Tylenol Tab) 650 mg Q4H PRN PO FEVER GREATER THAN 100.6 Last administered on 06/02/18 11:12; Admin Dose 650 MG; Start 05/27/18 at 11:30 Morphine Sulfate (morphine) 2 mg Q2H PRN IV FOR NON CARDIAC PAIN (4-10) Last administered on 06/03/18 21:24; Admin Dose 2 MG; Start 05/27/18 at 11:30 Al Hydrox/Mg Hydrox/Simethicone (Mag-Al Plus) 30 ml Q4H PRN PO GASTROINTESTINAL UPSET; Start 05/27/18 at 11:30 Ondansetron HCl (Zofran Inj) 4 mg Q4H PRN IV NAUSEA AND/OR VOMITING Last administered on 06/04/18 08:41; Admin Dose 4 MG; Start 05/27/18 at 11:30 Levothyroxine Sodium (Synthroid) 50 mcg BEFORE BREAKFAST PO Last administered on 06/04/18 08:41; Admin Dose 50 MCG; Start 05/30/18 at 07:00 Mometasone Furoate (Asmanex) 1 puff DAILY INH Last administered on 06/04/18 09:03; Admin Dose 1 PUFF; Start 05/29/18 at 11:00 Atorvastatin Calcium (Lipitor) 10 mg DAILY@21 PO Last administered on 06/03/18 20:25; Admin Dose 10 MG; Start 05/29/18 at 21:00 Latanoprost (Xalatan) 1 drop HS BOTH EYES Last administered on 06/03/18 20:25; Admin Dose 1 DROP; Start 06/01/18 at 21:00 Amlodipine Besylate (Norvasc) 5 mg DAILY PO ; Start 06/03/18 at 09:00; Status Hold Norepinephrine 16 mg/Dextrose 250 ml @ 0.94 mls/hr TITRATE IV ; Start 06/02/18 at 15:30 Phenylephrine HCl 40 mg/Dextrose 250 ml @ 37.5 mls/hr TITRATE IV ; Start 06/02/18 at 19:30 Piperacillin Sod/ Tazobactam Sod 50 ml @ 100 mls/hr Q6 IVPB Last administered on 06/04/18 05:26; Admin Dose 100 MLS/HR; Start 06/03/18 at 12:00 Bumetanide 3 mg/ Dextrose 30 ml @ 10 mls/hr Q3H ONCE IV Last administered on 06/04/18at 10:49; Admin Dose 10 MLS/HR; Start 06/04/18 at 11:00; Stop 06/04/18 at 13:59 Pantoprazole (Protonix Tab) 40 mg DAILY@06 PO ; Start 06/05/18 at 06:00 Assessment/Plan Hospital Course (Demo Recall) 62-year-old female underwent coronary angiogram. 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 I did insert the catheter for her and she was anuric. The catheter is inside the bladder as it does irrigate and it irrigates well. Management of the retr operitoneal and pelvic collection of blood is to be determined by the other physicians involved in her care. JOAQUIN DE LEON MD Jun 04, 2018 12:39
[2018-06-04] MEDS ORDERED: DIGOXIN 500 MCG INJ IV ONE (14:00)
[2018-06-04] MEDS ORDERED: LIDOCAINE 1% (MDV) 20 ML INJ ONE (14:45)
[2018-06-04] MEDS ORDERED: HEPARIN 1000 UNITS/ML 10 ML INJ ONE ×2 (14:45→16:38)
[2018-06-04] MEDS ORDERED: NITROGLYCERIN (IC) 100 MCG/ML INJ ONE (14:46)
[2018-06-04] MEDS ORDERED: VERAPAMIL 5 MG INJ ONE (14:46)
[2018-06-04] MEDS ORDERED: MIDAZOLAM 1 MG/ML 2 ML INJ ONE (14:46)
[2018-06-04] MEDS ORDERED: FENTAnyl 50 MCG/ML VIAL ONE (14:46)
[2018-06-04] MEDS ORDERED: ONDANSETRON 4 MG INJ ONE ×2 (14:46→16:35)
--- NOTE | 2018-06-04 15:12 | PN ---
Date/Time of Note Date/Time of Note DATE: 06/04/18 TIME: 15:03 Assessment/Plan Lines/Catheters IV Catheter Type (from Nrs): Saline Lock Mensah in Place (from Nrs): Yes Assessment/Plan Chief Complaint/Hosp Course Status post repair of right common femoral artery and external iliac artery No evidence of any bleeding very minimal drop in the hemoglobin today Patient with minimal urine output Need drainage of the retroperitoneal blood. Interventional radiology contacted again today I spoke with Dr. Middleton myself for placement of a percutaneous catheter to the hematoma to drain the fluid and decreased intra-abdominal pressure and possibly improving renal function Patient also has diminished flow in the left lower extremity with possible stenosis of the left common femoral artery Dr. Moreno to proceed with a radial approach for an angiogram to rule out any bleeding and to also evaluate left femoral artery for any signs of stenosis with possible intervention. The delicate balance of maintaining anticoagulation for prosthetic mitral valve versus bleeding intra-abdominally and the patient's high risk nature of proceeding with open surgery explained in detail to the patient's family Need for anticoagulation was stressed to them considering the mechanical valve They understand that if the patient is not adequately anticoagulated she may have thrombosis of the mechanical valve with devastating consequences Also the need to absolutely make sure there is no bleed prior to start of anticoagulation explained to them Fully I believe the left leg is viable considering the patient's condition which is very poor at the present time and the renal function that has deteriorated I do not think she is a good candidate to undergo open surgery unless it is absolutely necessary secondary to possible complications, poor medical condition, failure and also bleeding secondary to anticoagulation Will Proceed with an angiogram through the radial approach to rule out bleeding and also evaluate left common femoral artery I Had a long discussion with the patient and the family all questions answered May need temporary dialysis catheter if the renal function does not resolve Will Monitor vital signs Will monitor hemoglobin levels Subjective 24 Hr Interval Summary Patient was found to have cooler temperature on the left lower extremity today she maintained Doppler signals in the left dorsalis pedis and posterior tibial artery throughout the day but the left foot appeared to be cool. Wound was done which showed monophasic flows in the left lower extremity with diminished flow in the common femoral artery and reversal of flow in the left profunda and still a large hematoma. Continuous tube drainage was not done by interventional radiology and still coagulopathic with an INR of 1.67 Constitutional: improved Pain Control: mild Exam/Review of Systems Vital Signs Vitals Vital Signs Date Temp Pulse Resp B/P (MAP) Pulse Ox O2 O2 Flow FiO2 Time Delivery Rate 06/04/18 106 14:44 06/04/18 28 134/63 98 Nasal 13:00 (86) Cannula 06/04/18 98.4 12:00 06/04/18 2.0 12:00 Intake and Output 06/03/18 06/03/18 06/04/18 1515:00 23:00 07:00 IntakeIntake Total 190 ml 50 ml 230 ml OutputOutput Total 240 ml 570 ml BalanceBalance 190 ml -190 ml -340 ml Exam ENMT: nl external ears & nose, nl lips & teeth, nl nasal mucosa & septum, mucosa pink and moist Neck: supple, non-tender Respiratory: clear to auscultation, normal air movement Cardiovascular: regular rate and rhythm, nl pulses Additional Comments Abdomen is slightly distended not as tense as before minimal tenderness in the pelvis area There is bilateral femoral pulses on the right side I can palpate popliteal and pedal pulses with my fingers on the left side I cannot palpate left popliteal or pedal pulses however there is Results Result Diagram: 06/04/18 1233 06/04/18 1233 KIRILL CHRISTIAN MD Jun 04, 2018 15:12
[2018-06-04] MEDS ORDERED: PHENYLephrine (100 MCG/ML) 5ML SYG ONE (15:26)
[2018-06-04] MEDS ORDERED: ALTEPLASE (CATHFLO) 2 MG INJ ZFS ONE (17:30)
[2018-06-04] MEDS ORDERED: HEPARIN 25000 UNITS/250 ML 250 ML ONE (17:37)
--- NOTE | 2018-06-04 18:36 | SIPON ---
Date/Time of Note Date/Time of Note DATE: 06/04/18 TIME: 18:34 Operative Report Preoperative Diagnosis 1.arterial insufficiency Postoperative Diagnosis 1.successful recanalization of L SCALE MODEL MAKER 2.No signs of SCALE MODEL MAKER/ext illiac bleeding Operation/Procedure Performed 1.peripheral angio 2.BULK SEALER OPERATOR to L SCALE MODEL MAKER 3.BULK SEALER OPERATOR to L SFA 4.TPA L popliteal Surgeon see signature line podiatric assistant 1.Paulo Anesthesia: moderate sedation Estimated blood loss: minimal Transfusion Required none Specimen none Grafts/Implants none Complications none CHRIS LAZAR Jun 04, 2018 18:36
[2018-06-04] MEDS ORDERED: SOD CHLORIDE 0.9% 500 ML IV ONE (19:00)
--- NOTE | 2018-06-04 20:32 | CONS ---
Assessment/Plan Assessment/Plan Hospital Course (Demo Recall) assessment/impression - Severe sepsis due to UTI +/- infected hematoma - SIRS due to acute blood loss - responded to IVF bolus - UTI due to E. 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, s/p Covered stent placement 6 x 100 mm right common femoral artery and right external iliac artery, Abdominal aortogram, Catheter introduction to the abdominal aorta, interpretation supervision of the aortogram, Ultrasound guidance into the central artery 06/02/2018 - Oliguric FORREST - S/p LHC 05/27/2018 showing no significant obstructive CAD - CAD s/p [facility]G [facility] - H/o MVR with mechanical valve, in 1999 - Retroperitoneal bleed - Cholelithiasis without e/o acute cholecystitis - Acute anemia requiring PRBC - Hypertension - Hyperlipidemia - Hypothyroidism - Asthma - s/p FOURNIER, resolving. CT head shows no acute findings Recommendations: - ordered: repeat CXR in AM, the drainage for cultures - change pip/tazo (06/02/2018-) back to ceftriaxone (06/04/2018-), plan to end on 06/09/2018 management d/w Pt, her RN and children the critical care time I took to care for this Pt today was from 1930 to 1999 Consultation Date/Type/Reason Admit Date/Time May 28, 2018 at 17:52 Initial Consult Date 06/03/18 Requesting Provider: JULY VALENTIN MD Date/Time of Note DATE: 06/04/18 TIME: 20:25 24 HR Interval Summary Constitutional: requiring O2, other (weak) Detailed Summary Eyes: no complaints ENT: no complaints Respiratory: shortness of breath; No cough, No pleuritic pain, No sputum Cardiovascular: no complaints Gastrointestinal: nausea Genitourinary: other (FC) Musculoskeletal: restricted range of motion; No bone/joint pain Skin: other (feels warm on LLE) Neurologic: no complaints Exam/Review of Systems Exam Vitals Vital Signs Date Temp Pulse Resp B/P (MAP) Pulse Ox O2 O2 Flow FiO2 Time Delivery Rate 06/04/18 104 18:36 06/04/18 2.0 17:36 06/04/18 32 141/59 96 Nasal 14:00 (86) Cannula 06/04/18 98.4 12:00 Intake and Output 06/03/18 06/03/1806/04/19 1515:00 23:00 07:00 IntakeIntake Total 190 ml 50 ml 230 ml OutputOutput Total 240 ml 570 ml BalanceBalance 190 ml -190 ml -340 ml Constitutional: frail Psych: other (flat affect) Head: normocephalic, atraumatic Eyes: nl conjunctiva, nl lids, nl sclera; No icteric ENMT: nl external ears & nose, nl nasal mucosa & septum, mucosa pink and moist Neck: non-tender Respiratory: clear to auscultation, normal air movement Cardiovascular: regular rate and rhythm, nl pulses Gastrointestinal: soft, non-tender; No distended, No tender Genitourinary - Female: other (FC) Musculoskeletal: nl extremities to inspection Extremities: normal pulses Neurological: RUNNER WORKER II-XII intact, nl mental status, nl speech Skin: nl turgor; No rash or lesions Results Result Diagram: 06/04/18191606/04/18 1233 Results 24hrs Laboratory Tests Test 06/04/18 04:35 06/04/18 12:33 06/04/18 19:17 White Blood Count 13.0 H 11.9 H 12.0 H Red Blood Count 3.23 L 3.18 L 3.02 L Hemoglobin 10.0 L 9.8 L 9.3 L Hematocrit 29.9 L 29.4 L 28.5 L Mean Corpuscular Volume 92.6 92.5 94.4 Mean Corpuscular Hemoglobin 31.0 30.8 30.8 Mean Corpuscular Hemoglobin Concent 33.4 33.3 32.6 Red Cell Distribution Width 15.1 H 15.4 H 15.4 H Platelet Count 155 177 172 Mean Platelet Volume 11.0 H 10.1 10.2 Immature Granulocytes % 0.700 H 1.400 H 1.200 H Neutrophils % 88.1 H 88.6 H 87.8 H Lymphocytes % 4.8 L 4.3 L 4.4 L Monocytes % 6.2 5.6 6.4 Eosinophils % 0.0 0.0 0.0 Basophils % 0.2 0.1 0.2 Nucleated Red Blood Cells % 0.0 0.2 H 0.3 H Immature Granulocytes # 0.090 H 0.170 H 0.150 H Neutrophils # 11.5 H 10.5 H 10.6 H Lymphocytes # 0.6 L 0.5 L 0.5 L Monocytes # 0.8 0.7 0.8 Eosinophils # 0.0 0.0 0.0 Basophils # 0.0 0.0 0.0 Nucleated Red Blood Cells # 0.0 0.0 0.0 Prothrombin Time 19.8 H 22.2 H Prothrombin Time Ratio 1.5 1.7 INR International Normalized Ratio 1.67 1.94 Sodium Level 137 134 L Potassium Level 5.6 H 5.2 H Chloride Level 103 101 Carbon Dioxide Level 22 23 Anion Gap 12 10 Blood Urea Nitrogen 41 #H 45 H Creatinine 3.75 #H 4.31 H Est Glomerular Filtrat Rate mL/min 12 L 10 L Glucose Level 146 # 148 Calcium Level 8.6 8.7 Activated Partial Thromboplast Time Pending Medications Medication Current Medications Acetaminophen (Tylenol Tab) 650 mg Q4H PRN PO FEVER GREATER THAN 100.6 Last administered on 06/02/18 11:12; Admin Dose 650 MG; Start 05/27/18 at 11:30 Morphine Sulfate (morphine) 2 mg Q2H PRN IV FOR NON CARDIAC PAIN (4-10) Last administered on 06/03/18 21:24; Admin Dose 2 MG; Start 05/27/18 at 11:30 Al Hydrox/Mg Hydrox/Simethicone (Mag-Al Plus) 30 ml Q4H PRN PO GASTROINTESTINAL UPSET; Start 05/27/18 at 11:30 Ondansetron HCl (Zofran Inj) 4 mg Q4H PRN IV NAUSEA AND/OR VOMITING Last administered on 06/04/18 12:53; Admin Dose 4 MG; Start 05/27/18 at 11:30 Levothyroxine Sodium (Synthroid) 50 mcg BEFORE BREAKFAST PO Last administered on 06/04/18 08:41; Admin Dose 50 MCG; Start 05/30/18 at 07:00 Mometasone Furoate (Asmanex) 1 puff DAILY INH Last administered on 06/04/18 09:03; Admin Dose 1 PUFF; Start 05/29/18 at 11:00 Atorvastatin Calcium (Lipitor) 10 mg DAILY@21 PO Last administered on 06/03/18 20:25; Admin Dose 10 MG; Start 05/29/18 at 21:00 Latanoprost (Xalatan) 1 drop HS BOTH EYES Last administered on 06/03/18at 20:25; Admin Dose 1 DROP; Start 06/01/18 at 21:00 Amlodipine Besylate (Norvasc) 5 mg DAILY PO ; Start 06/03/18 at 09:00; Status Hold Norepinephrine 16 mg/Dextrose 250 ml @ 0.94 mls/hr TITRATE IV ; Start 06/02/18 at 15:30 Phenylephrine HCl 40 mg/Dextrose 250 ml @ 37.5 mls/hr TITRATE IV ; Start 06/02/18 at 19:30 Pantoprazole (Protonix Tab) 40 mg DAILY@06 PO ; Start 06/05/18 at 06:00 Miscellaneous Information (* Miscellaneous Pharmacy Order) Hold all Metformin ... ONCE XX ; Start 06/04/18 at 19:00; Stop 06/06/18 at 18:59 Metoclopramide HCl (Reglan) 10 mg TID PRN IV Nausea; Start 06/04/18 at 19:00 Heparin Sodium (Porcine) (Heparin (1000 Units/ml)) 3,800 unit PER PROTOCOL PRN IV aPTT<47; Start 06/04/18 at 19:00 Heparin Sodium (Porcine) 250 ml @ 7.5 mls/hr PER PROTOCOL IV ; Start 06/04/18 at 19:00 Sodium Chloride 500 ml @ 60 mls/hr Q8H20M ONCE IV ; Start 06/04/18 at 19:00; Stop 06/05/18 at 03:19 Ceftriaxone Sodium 50 ml @ 100 mls/hr Q24H IVPB ; Start 06/04/18 at 20:30 SHARI CROWELL M.D. Jun 04, 2018 20:32
[2018-06-04] MEDS: METOCLOPRAMIDE 10 MG INJ IV PRN (21:16)
[2018-06-04] MEDS: LATANOPROST 0.005% 2.5 ML OPH BOTH EYES SCH (21:16)
[2018-06-04] MEDS: CEFTRIAXONE 1 GM/50 ML (PMX) 50 ML IVPB SCH (21:16)
[2018-06-04] MEDS: ATORVASTATIN 10 MG TAB PO SCH (21:16)
[2018-06-04] MEDS: morphine 2 MG INJ IV PRN (21:52)
[2018-06-04] MEDS: HEPARIN 25000 UNITS/250 ML 250 ML IV SCH (23:42)
[2018-06-05] VITALS (26 sets, daily range): BP systolic 91–140; BP diastolic 37–70; PULSE 90–101; RESP 15–27
[2018-06-05] MEDS: morphine 2 MG INJ IV PRN ×2 (02:19→05:55)
[2018-06-05] MEDS: ONDANSETRON 4 MG INJ IV PRN ×3 (02:19→20:36)
[2018-06-05] MEDS: HEPARIN 1000 UNITS/ML 10 ML INJ IV PRN (05:52)
[2018-06-05] MEDS: PANTOPRAZOLE (EC) 40 MG TAB PO SCH (05:54)
[2018-06-05] MEDS: METOCLOPRAMIDE 10 MG INJ IV PRN ×2 (05:54→20:36)
[2018-06-05] MEDS: LEVOTHYROXINE 50 MCG TAB PO SCH (06:00)
--- NOTE | 2018-06-05 06:18 | CONS ---
Consult Date/Type/Reason Admit Date/Time May 28, 2018 at 17:52 Initial Consult Date 06/03/18 Type of Consultation: Urology Requesting Provider: JULY VALENTIN MD Date/Time of Note DATE: 06/05/18 TIME: 06:12 Subjective 62-year-old female with a past medical history of hypertension, dyslipidemia, history of CABG, history of mitral valve replacement with mechanical valve, who presented to [facility] with shortness of breath. The patient recently underwent cardiac stress test and echo revealing ischemia with possible severe . The patient underwent cardiac catheterization and was subsequently discharged. The patient is now seen complaining of abdominal pain in the PACU. The patient had a CT scan that showed large amount of hemoperitoneum. The patient was subsequently admitted to [facility] for evaluation. The patient was then seen by a vascular surgeon, Dr. Kilpatrick. The patient was eventually taken to surgery due to worsening hematoma and had a stent placed in the right external iliac artery. Following the procedure, the patient became hypotensive, was transferred to intensive care unit, was given IV fluids, blood transfusion. The patient also had a Mensah catheter placed due to possibility of obstruction. In terms of patient's renal history, on admission, patient had a creatinine of 0.57 mg/dL. The patient's creatinine has increased since admission. The patient was also noted to have minimal urinary output. The patient was noted to have elevated potassium and had shifting measures done. dw family and agreed to hd. dawit leonard. may take for repeat angio to eval for bleeding. this am had further distention of abdomen and ct has been done. There have been no reports of any hemoptysis, hematemesis or hematochezia. PHYSICAL EXAMINATION: HEENT: Head is normocephalic. HEART: Shows a possible mechanical click. Regular rate. LUNGS: Show diminished breath sounds at the base. ABDOMEN: Soft, nontender to palpation. No rebound or guarding. EXTREMITIES: Negative for clubbing, cyanosis. Trace edema. DERMATOLOGIC: No rashes. MUSCULOSKELETAL: No joint effusion. Objective Vitals Vital Signs Date Temp Pulse Resp B/P (MAP) Pulse Ox O2 O2 Flow FiO2 Time Delivery Rate 06/05/18 94 20 109/50 98 Nasal 06:00 (69) Cannula 06/05/18 2.0 05:00 2/24/19 98.8 04:00 Intake and Output 06/04/18 06/04/18 06/05/18 1515:00 23:00 07:00 IntakeIntake Total 200 ml 130 ml 382.5 ml OutputOutput Total 75 ml 150 ml 190 ml BalanceBalance 125 ml -20 ml 192.5 ml Results/Medications Result Diagram: 06/05/18 0428 06/05/18 0428 Results 24 hrs Laboratory Tests Test 06/04/18 12:33 06/04/18 19:17 06/04/18 22:39 06/05/18 00:31 White Blood Count 11.9 H 12.0 H 13.5 H Red Blood Count 3.18 L 3.02 L 2.91 L Hemoglobin 9.8 L 9.3 L 9.0 L Hematocrit 29.4 L 28.5 L 27.0 L Mean Corpuscular 92.5 94.4 92.8 Volume Mean Corpuscular 30.8 30.8 30.9 Hemoglobin Mean Corpuscular 33.3 32.6 33.3 Hemoglobin Concent Red Cell 15.4 H 15.4 H 15.4 H Distribution Width Platelet Count 177 172 185 Mean Platelet Volume 10.1 10.2 10.2 Immature 1.400 H 1.200 H 1.200 H Granulocytes % Neutrophils % 88.6 H 87.8 H 88.9 H Lymphocytes % 4.3 L 4.4 L 4.2 L Monocytes % 5.6 6.4 5.6 Eosinophils % 0.0 0.0 0.0 Basophils % 0.1 0.2 0.1 Nucleated Red Blood 0.2 H 0.3 H 0.4 H Cells % Immature 0.170 H 0.150 H 0.160 H Granulocytes # Neutrophils # 10.5 H 10.6 H 12.0 H Lymphocytes # 0.5 L 0.5 L 0.6 L Monocytes # 0.7 0.8 0.8 Eosinophils # 0.0 0.0 0.0 Basophils # 0.0 0.0 0.0 Nucleated Red Blood 0.0 0.0 0.1 H Cells # Sodium Level 134 L Potassium Level 5.2 H Chloride Level 101 Carbon Dioxide Level 23 Anion Gap 10 Blood Urea Nitrogen 45 H Creatinine 4.31 H Est Glomerular 10 L Filtrat Rate mL/min Glucose Level 148 Calcium Level 8.7 Prothrombin Time 22.2 H Prothrombin Time 1.7 Ratio INR International 1.94 Normalized Ratio Activated > 180.0 *H 57.8 H Partial Thromboplast Time Test 06/05/18 04:28 White Blood Count 12.8 H Red Blood Count 2.84 L Hemoglobin 8.7 L Hematocrit 26.5 L Mean Corpuscular 93.3 Volume Mean Corpuscular 30.6 Hemoglobin Mean Corpuscular 32.8 Hemoglobin Concent Red Cell 15.3 H Distribution Width Platelet Count 180 Mean Platelet Volume 10.0 Immature 1.800 H Granulocytes % Neutrophils % 87.3 H Lymphocytes % 4.5 L Monocytes % 6.1 Eosinophils % 0.0 Basophils % 0.3 Nucleated Red Blood 0.5 H Cells % Immature 0.230 H Granulocytes # Neutrophils # 11.1 H Lymphocytes # 0.6 L Monocytes # 0.8 Eosinophils # 0.0 Basophils # 0.0 Nucleated Red Blood 0.1 H Cells # Prothrombin Time 19.2 H Prothrombin Time 1.5 Ratio INR International 1.61 Normalized Ratio Activated 34.8 Partial Thromboplast Time Sodium Level 138 Potassium Level 5.4 H Chloride Level 104 Carbon Dioxide Level 22 Anion Gap 12 Blood Urea Nitrogen 59 H Creatinine 5.06 H Est Glomerular 9 L Filtrat Rate mL/min Glucose Level 124 Calcium Level 8.4 Home Meds Reported Medications Albuterol Sulfate* (Ventolin HFA*) 18 Gm Hfa.aer.ad, 2 PUFF INHALATION Q4H, #1 INHALER 05/26/18 Ergocalciferol (Vitamin D2) (VITAMIN D2) 50,000 Unit Capsule, 59482 UNIT PO [id number], CAP 05/23/18 Warfarin Sodium* (Coumadin*) 5 Mg Tablet, 5 MG PO Q TUES,THUR,SAT, TAB 05/23/18 Warfarin Sodium* (Coumadin*) 4 Mg Tablet, 4 MG PO Q MON,WED,FRI,SUN, TAB 05/23/18 Furosemide* (Furosemide*) 20 Mg Tablet, 20 MG PO DAILY, #60 TAB TAKE Q 2 DAYS 05/23/18 Simvastatin* (Zocor*) 20 Mg Tablet, 20 MG PO QHS, #30 TAB 05/23/18 Ranitidine Hcl* (Ranitidine Hcl*) 150 Mg Tablet, 150 MG PO HS, #30 TAB 05/23/18 Acetaminophen (Mapap) 500 Mg Capsule, 500 MG PO BID PRN for PAIN, CAP 05/23/18 Levothyroxine Sodium* (Levothyroxine Sodium*) 50 Mcg Tablet, 50 MCG PO BEFORE BREAKFAST, #30 TAB 05/23/18 Spironolactone* (Aldactone*) 25 Mg Tablet, 25 MG PO DAILY, #30 TAB 05/23/18 Beclomethasone Dipropionate (Qvar Redihaler (40 MCG)) 10.6 Gm Hfa.aeroba, 10.6 GM IH DAILY, INH 05/23/18 Amlodipine Besylate* (Norvasc*) 5 Mg Tablet, 5 MG PO BID, TAB 05/23/18 Losartan-Hydrochlorothiazide (Losartan-HCTZ) 100-25 Mg Tab, 1 TAB PO DAILY, TAB 05/23/18 Medications Current Medications Acetaminophen (Tylenol Tab) 650 mg Q4H PRN PO FEVER GREATER THAN 100.6 Last administered on 06/02/18at 11:12; Admin Dose 650 MG; Start 05/27/18 at 11:30 Morphine Sulfate (morphine) 2 mg Q2H PRN IV FOR NON CARDIAC PAIN (4-10) Last administered on 06/05/18at 05:55; Admin Dose 2 MG; Start 05/27/18 at 11:30 Al Hydrox/Mg Hydrox/Simethicone (Mag-Al Plus) 30 ml Q4H PRN PO GASTROINTESTINAL UPSET; Start 05/27/18 at 11:30 Ondansetron HCl (Zofran Inj) 4 mg Q4H PRN IV NAUSEA AND/OR VOMITING Last adm inistered on 06/05/18at 02:19; Admin Dose 4 MG; Start 05/27/18 at 11:30 Levothyroxine Sodium (Synthroid) 50 mcg BEFORE BREAKFAST PO Last administered on 06/05/18at 06:00; Admin Dose 50 MCG; Start 05/30/18 at 07:00 Mometasone Furoate (Asmanex) 1 puff DAILY INH Last administered on 06/04/18at 09:03; Admin Dose 1 PUFF; Start 05/29/18 at 11:00 Atorvastatin Calcium (Lipitor) 10 mg DAILY@21 PO Last administered on 06/04/18at 21:16; Admin Dose 10 MG; Start 05/29/18 at 21:00 Latanoprost (Xalatan) 1 drop HS BOTH EYES Last administered on 06/04/18at 21:16; Admin Dose 1 DROP; Start 06/01/18 at 21:00 Amlodipine Besylate (Norvasc) 5 mg DAILY PO ; Start 06/03/18 at 09:00; Status Hold Norepinephrine 16 mg/Dextrose 250 ml @ 0.94 mls/hr TITRATE IV ; Start 06/02/18 at 15:30 Phenylephrine HCl 40 mg/Dextrose 250 ml @ 37.5 mls/hr TITRATE IV ; Start 06/02/18 at 19:30 Pantoprazole (Protonix Tab) 40 mg DAILY@06 PO Last administered on 06/05/18at 05:54; Admin Dose 40 MG; Start 06/05/18 at 06:00 Miscellaneous Information (* Miscellaneous Pharmacy Order) Hold all Metformin ... ONCE XX ; Start 06/04/18 at 19:00; Stop 06/06/18 at 18:59 Metoclopramide HCl (Reglan) 10 mg TID PRN IV Nausea Last administered on 06/05/18at 05:54; Admin Dose 10 MG; Start 06/04/18 at 19:00 Heparin Sodium (Porcine) (Heparin (1000 Units/ml)) 3,800 unit PER PROTOCOL PRN IV aPTT<47 Last administered on 06/05/18 05:52; Admin Dose 3,800 UNIT; Start 06/04/18 at 19:00 Heparin Sodium (Porcine) 250 ml @ 7.5 mls/hr PER PROTOCOL IV Last administered on 06/04/18at 23:42; Admin Dose 2.5 MLS/HR; Start 06/04/18 at 19:00 Ceftriaxone Sodium 50 ml @ 100 mls/hr Q24H IVPB Last administered on 06/04/18at 21:16; Admin Dose 100 MLS/HR; Start 06/04/18 at 20:30 Assessment/Plan Hospital Course (Demo Recall) 1. Oligoanuric acute kidney injury with previous baseline creatinine of 0.56 mg/dL. Etiology of the acute kidney injury is likely secondary to acute tubular necrosis due to ischemic hypoperfusion and shock and possible contrast nephrotoxicity. consideration into obstruction from hematoma but no hyd roephrosis. The patient's urinalysis does show evidence of pyuria, hematuria. However, there is lower suspicion for acute glomerulonephritis or vasculitis given the clinical presentation. Recommendation at this point is to continue medical management. sp diuretic challenge to see if the patient could be converted from oliguric to nonoliguric state without success. We will monitor potassium, renal function and volume status closely. will initiate hd after catheter placed for solute clearance and k clearance. 2. Hyperkalemia secondary to acute kidney injury in conjunction with potassium chloride supplementation. The patient is status post IV insulin and dextrose. Potassium levels have stabilized overnight. given lasix and kayexalate. should correct with hd. 3. Anemia secondary to intraabdominal hematoma and bleed. The patient is status post blood transfusion. Continue to monitor H and H levels. 4. Mineral bone disorder. Monitor calcium and phosphorus levels. 5. Retroperitoneal bleed possibly due to recent cardiac catheterization. The patient is status post stent placement in the external iliac artery per Vascular Surgery. Continue to monitor. plan on repeat angio per dr. leonard. 6. Coronary artery disease status post cardiac catheterization. Continue medical management. 7. Mechanical mitral valve. Continue to monitor. Follow up with Cardiology regarding possible anticoagulation, currently on hold. 8. Systemic inflammatory response syndrome, rule out sepsis. The patient is currently on antibiotic therapy. Follow up with Infectious Disease. 9. Hypothyroidism. Continue Synthroid. 10. Dyslipidemia. 11. History of asthma. 12. abd distention- fu ct. INA LANDIS MD Jun 05, 2018 06:18
--- NOTE | 2018-06-05 06:42 | CARRPT ---
DATE OF PROCEDURE: 06/04/2018 REASON FOR PROCEDURE: Assess for ongoing source of bleeding and assess left lower extremity peripheral blood flow. ATTENDING PHYSICIAN: Chris Moreno MD REFERRING PHYSICIAN: July Valentin MD INDICATION: History of retroperitoneal bleed, slow drop in hemoglobin, assess for ongoing bleed as well as decreased distal pulses. Assess for peripheral arterial disease, obstructive. TYPE OF ANESTHESIA: Conscious and local. BRIEF HISTORY AND HOSPITAL COURSE: Ms. Sexton is a 62-year-old female with history of hypertension, dyslipidemia, coronary artery disease, mechanical mitral valve repair, previously believed CABG who initially presented for and underwent a right and left heart catheterization to assess for stenosis and that time was found to have no bypass grafts done as she thought she had done. The patient was admitted for re-anticoagulation during mechanical valve and subsequently developed hypotension and underwent a CT scan revealing artery bleed. Patient was conservatively managed and rebleed multiple days later and underwent placement of covered stent to right common femoral, external iliac. Subsequently at that time, the patient was taken back to ICU. The patient continued to have a hemoglobin checked with a slow dwindle down in hemoglobin and subsequent worsening renal failure and to be initiated on hemodialysis. Subsequently after discussion with treating surgeon, human factors advisor lead and cdl flatbed truck driver, it was decided that the patient should undergo repeat angiography to assess for any ongoing source of bleed or to allow anticoagulation for mechanical valve and additionally to assess lower extremity weakness and decreased pulse. DESCRIPTION OF PROCEDURE: After informed consent was obtained, the patient was brought to the [facility] cardiac catheterization lab where her right radial area was prepped and draped in a sterile fashion. A 2% lidocaine was infiltrated into the right radial area in order to achieve adequate anesthesia. Using the modified Seldinger technique, the radial artery was cannulated and a 6-Rwandan arterial sheath was placed. Through this, we took a Berenstein guide down to the left iliac bifurcation and angiographic images were obtained revealing the patient to have occlusion of her common femoral artery with collateral flow with thrombus. Subsequently at this time, as we were going to do intervention upon this leg, the catheter was removed and a 6- Rwandan FR4 was then used to further assess the patient's pulled back and then put down the right iliac down just at the bifurcation internal and external iliac and an angiographic images obtained with oblique views to ensure there was no bleeding there. There was not. Subsequently, this catheter was pulled back and put back down the left circumflex distribution. The patient at that time was given additional heparin 5000 bolus and using a Whittemore 5 x 40 mm balloon, balloon inflations were made across the common femoral returning flow to this area with still a significant thrombus downstream. Subsequently, this balloon which at this time were over a C-tip Back-up Meierwire which have significant support and have been placed all the way down to popliteal. This 5 x 40 mm balloon was removed after inflations made across the common femoral, superficial femoral bifurcation and subsequently as we now saw further disease further down into the SFA, s 5 x 200 mm Whittemore balloon was then placed extending all the way down to the popliteal and inflations were made up to 10 to 12 atmospheres throughout the length of the lesion. The balloon was removed and at this time we had to replace a catheter with the wire as the balloon was not going through the wire and angiographic image obtained revealing improved flow down the leg with some thrombus in the very distal portions now. At this point, we were able to Doppler some pulses, but they were coming and going. Subsequently with the catheter left in place, we initially tried to use an 0.18 wire, a Victory followed by a Glidewire Gold, which was placed down into the patient's anterior tibial and peroneal and posterior tibial and subsequently we attempted to pass a 4.0 x 220 balloon, but found that this balloon was not long enough to shaft to reach down into the peroneal, anterior tibial and posterior tibial distribution. Subsequently, at this time, the patient was given a total of 4 mg TPA delivered through the catheter and extending from the mid distal SFA down and angiographic images x2 were taken and on each image the patient have improved continue flow with almost dissolution of most of the patient's thrombus dorsalis pedis and return of flow into the posterior tibial and subsequently at this time, Dopplerable pulses and palpable pulse in dorsalis pedis and Doppler pulses, posterior tibial. Subsequently, the catheters were pulled back and a final angiographic image of both common femoral, external iliac bifurcations were undertaken to ensure once again there was no bleeding on the way ought with oblique images revealing no signs of bleeding and the catheter was removed. This completed the procedure. There were no noted complications. The patient's sheath was removed. TR band was applied. PERIPHERAL ANGIOGRAPHY FINDINGS: Peripheral angiography revealed the left common femoral artery of the patient of a thrombotic occlusion of the common femoral artery extending into the SFA with some faint collateral flow extending down into it as well as profunda and give some collateral flow distal. Post-BIOPROCESS DEVELOPMENT ENGINEER in the common femoral, external bifurcation and a BIOPROCESS DEVELOPMENT ENGINEER in the SFA and TPA. The patient had a mild residual thrombus in the common femoral with excellent flow and rapid flow all the way down to the popliteal and then some mild thrombus formation within the perineal and the patient had a complete reopening of the patient's dorsalis pedis and additionally had reopened flow with mild residual thrombus of the posterior tibial, but the flow within the vessel at this time, extending all the way down to the foot. On the patient's right common femoral, the patient had a widely patent covered stent and no signs of bleeding and excellent flow all the way down to the foot. TOTAL FLUOROSCOPY TIME: 39.9 minutes. TOTAL CONTRAST: 180 mL. IMPRESSION: 1. No signs of external iliac or common femoral bleeding bilaterally in the patient's left and right lower extremities. 2. 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 Recc: 1.Admit to icu 2.Resume anticoagulation -Follow HGB closely Dictated By: CHRIS HERNANDEZ/SAVANNAH Conf#: [id number] DID#: [id number] CC: KIRILL CHRISTIAN MD; JULY VALENTIN MD;*EndCC* MTDD
--- NOTE | 2018-06-05 09:02 | CONS ---
Assessment/Plan Assessment/Plan Hospital Course 62 F who multiple comorbidities, who is admitted to the [facility] ICU following elective cardiac surgery. She was noted to have b/l LE swelling and ? numbness, for which neurology is consulted. She notes isolated LLE sensory change, as well as significant weakness in that limb, which is concerning for an acute neurologic process such as a cerebral infarction vs. a femoral neuropathy.. The presence of diminished reflexes on the affected side favors the latter consideration.. CT A/P 06/02 shows a large pelvic hematoma. Of note, periprocedural hemorrhage following femoral artery catheterization is a known cause a compressive femoral neuropathy. CT Head is unremarkable P: Consider EMG/NCS in ~ 2 weeks if weakness persists... for prognostication re: potential for recovery PT as able Will sign off for now; please call w ?s Consultation Date/Type/Reason Admit Date/Time May 28, 2018 at 17:52 Type of Consult Neurology Reason for Consultation Left leg weakness/numbness Requesting Provider: JULY VALENTIN MD Date/Time of Note DATE: 06/05/18 TIME: 09:00 24 HR Interval Summary Free Text/Dictation Continues icu care Exam Vital Signs Vitals Vital Signs Date Temp Pulse Resp B/P (MAP) Pulse Ox O2 O2 Flow FiO2 Time Delivery Rate 06/05/18 94 20 109/50 98 Nasal 06:00 (69) Cannula 06/05/18 2.0 05:00 06/05/18 98.8 04:00 Intake and Output 06/04/18 06/04/18 06/05/18 1515:00 23:00 07:00 IntakeIntake Total 200 ml 130 ml 382.5 ml OutputOutput Total 75 ml 150 ml 190 ml BalanceBalance 125 ml -20 ml 192.5 ml Exam PE: Gen Appearance: No Apparent Distress HEENT: Normocephalic Cardiovascular: Regular rate Abdomen: Soft Extremities: Dry NE: The patient was alert and oriented. Language was normal. Fund of knowledge was adequate. Pupils were equal and reactive to light. There was no afferent pupillary defect. Visual christianson were normal. Funduscopic examination was limited. Extra-ocular movements were full. Ptosis was absent. There was no nystagmus. Facial sensation was normal. Face was symmetric with normal strength. Hearing was intact. Palate movements were normal. Neck strength was normal. There was normal tongue bulk and speed of movement. Tone was normal. Muscle bulk was normal. I did not see fasciculations. Left leg was weak. Vibration sensation was reduced in the left leg. Temperature and pinprick sensation was reduced in the left leg. Rapid alternating movements were normal. There was no dysmetria. There was no intention tremor. Gait was deferred due to bedrest. Arm reflexes were symmetric; left leg reflexes were diminished. Ramirez's sign was absent. Plantar responses were flexor. JUSTUS JACKMAN Jun 05, 2018 09:02
[2018-06-05] MEDS: SOD CHLORIDE 0.9% 1,000 ML IV SCH (10:27)
[2018-06-05] MEDS: MOMETASONE 0.24 GM INHALER INH SCH (10:28)
--- NOTE | 2018-06-05 10:28 | CONS ---
Assessment/Plan Assessment/Plan Hospital Course (Demo Recall) IMP: 1.cad s/p LHC with no sig obstructive cad 2.HTN 3.RP Bleed s/p transfusions now stable and tolerating heparin/coumadin loading. Then had recurrent bled overnight now s/p covered stent to COMMODITIES BROKER/Ext iliac. Stbale collection by abd CT today 4.HL 5.MVR-mechanical 6.anemia-worseing, ? ongoing bleeding versus residual from intial bleed/L femoral after repair of R COMMODITIES BROKER/illiac 7.Hypothyroid 8. FOURNIER-negative Head CT 9. Fevers-with positive ua 10. UTI 11.ARF-? Contrast induced/compression from hematoma 12. Coagulopathy-likely secondary to coumadin 14. LE weakness-? compression from hematoma and exacerbated by femoral compression after cath 15. arterial insuff- LLE- s/p PORTER SAMPLE CASE/thrombolysis 06/04 successfully Recc: -ICU -hold norvasc -Continue statin -F/U urine cx -Contine abx's -ongoing ID f/u -Ongoing surgical f/u -resume heparin after procedure today -F/U hospital administrator/K closely. Renal now following. Probable need for HD but making increased urine and thus will give additional IVF challenge and Bumex -To have IR drainage of intra-abdominal hematoma today- ? if pigtail is to remain in place or be removed Consultation Date/Type/Reason Admit Date/Time May 28, 2018 at 17:52 Initial Consult Date 05/28/18 Type of Consult Cardiology Reason for Consultation /cad Requesting Provider: JULY VALENTIN MD Date/Time of Note DATE: 06/05/18 TIME: 10:04 Exam/Review of Systems Vital Signs Vitals Vital Signs Date Temp Pulse Resp B/P (MAP) Pulse Ox O2 O2 Flow FiO2 Time Delivery Rate 06/05/18 94 08:00 06/05/18 20 109/50 98 Nasal 06:00 (69) Cannula 06/05/18 2.0 05:00 06/05/18 98.8 04:00 Intake and Output 06/04/18 06/04/18 06/05/18 1515:00 23:00 07:00 IntakeIntake Total 200 ml 130 ml 382.5 ml OutputOutput Total 75 ml 150 ml 190 ml BalanceBalance 125 ml -20 ml 192.5 ml Exam Exam Review of Systems: CONSTITUTIONAL: No fevers, chills. PULMONARY: No sob CARDIOVASCULAR: No chest pain/palpitations GASTROINTESTINAL: N/V GENITOURINARY: No hematuria/dysuria. MUSCULOSKELETAL: No myagias/arthalgias. PSYCHIATRIC: The patient denies depression. NEUROLOGIC: No weakness Constitutional: alert Psych: no complaints Head: normocephalic ENMT: mucosa pink and moist Neck: supple Respiratory: diminished breath sounds Cardiovascular: regular rate and rhythm Gastrointestinal: distended, tender (to palpation mild) Musculoskeletal: muscle tone (normal) Extremities: edema (trace/B) Labs Result Diagram: 06/05/1842706/05/18427 Results 24hrs Laboratory Tests Test 06/04/18 12:33 06/04/18 19:17 06/04/18 22:39 06/05/18 00:31 White Blood Count 11.9 H 12.0 H 13.5 H Red Blood Count 3.18 L 3.02 L 2.91 L Hemoglobin 9.8 L 9.3 L 9.0 L Hematocrit 29.4 L 28.5 L 27.0 L Mean Corpuscular 92.5 94.4 92.8 Volume Mean Corpuscular 30.8 30.8 30.9 Hemoglobin Mean Corpuscular 33.3 32.6 33.3 Hemoglobin Concent Red Cell 15.4 H 15.4 H 15.4 H Distribution Width Platelet Count 177 172 185 Mean Platelet Volume 10.1 10.2 10.2 Immature 1.400 H 1.200 H 1.200 H Granulocytes % Neutrophils % 88.6 H 87.8 H 88.9 H Lymphocytes % 4.3 L 4.4 L 4.2 L Monocytes % 5.6 6.4 5.6 Eosinophils % 0.0 0.0 0.0 Basophils % 0.1 0.2 0.1 Nucleated Red Blood 0.2 H 0.3 H 0.4 H Cells % Immature 0.170 H 0.150 H 0.160 H Granulocytes # Neutrophils # 10.5 H 10.6 H 12.0 H Lymphocytes # 0.5 L 0.5 L 0.6 L Monocytes # 0.7 0.8 0.8 Eosinophils # 0.0 0.0 0.0 Basophils # 0.0 0.0 0.0 Nucleated Red Blood 0.0 0.0 0.1 H Cells # Sodium Level 134 L Potassium Level 5.2 H Chloride Level 101 Carbon Dioxide Level 23 Anion Gap 10 Blood Urea Nitrogen 45 H Creatinine 4.31 H Est Glomerular 10 L Filtrat Rate mL/min Glucose Level 148 Calcium Level 8.7 Prothrombin Time 22.2 H Prothrombin Time 1.7 Ratio INR International 1.94 Normalized Ratio Activated > 180.0 *H 57.8 H Partial Thromboplast Time Test 06/05/18 04:28 White Blood Count 12.8 H Red Blood Count 2.84 L Hemoglobin 8.7 L Hematocrit 26.5 L Mean Corpuscular 93.3 Volume Mean Corpuscular 30.6 Hemoglobin Mean Corpuscular 32.8 Hemoglobin Concent Red Cell 15.3 H Distribution Width Platelet Count 180 Mean Platelet Volume 10.0 Immature 1.800 H Granulocytes % Neutrophils % 87.3 H Lymphocytes % 4.5 L Monocytes % 6.1 Eosinophils % 0.0 Basophils % 0.3 Nucleated Red Blood 0.5 H Cells % Immature 0.230 H Granulocytes # Neutrophils # 11.1 H Lymphocytes # 0.6 L Monocytes # 0.8 Eosinophils # 0.0 Basophils # 0.0 Nucleated Red Blood 0.1 H Cells # Prothrombin Time 19.2 H Prothrombin Time 1.5 Ratio INR International 1.61 Normalized Ratio Activated 34.8 Partial Thromboplast Time Sodium Level 138 Potassium Level 5.4 H Chloride Level 104 Carbon Dioxide Level 22 Anion Gap 12 Blood Urea Nitrogen 59 H Creatinine 5.06 H Est Glomerular 9 L Filtrat Rate mL/min Glucose Level 124 Calcium Level 8.4 Medications Medications Current Medications Acetaminophen (Tylenol Tab) 650 mg Q4H PRN PO FEVER GREATER THAN 100.6 Last administered on 06/02/18at 11:12; Admin Dose 650 MG; Start 05/27/18 at 11:30 Morphine Sulfate (morphine) 2 mg Q2H PRN IV FOR NON CARDIAC PAIN (4-10) Last administered on 06/05/18at 05:55; Admin Dose 2 MG; Start 05/27/18 at 11:30 Al Hydrox/Mg Hydrox/Simethicone (Mag-Al Plus) 30 ml Q4H PRN PO GASTROINTESTINAL UPSET; Start 05/27/18 at 11:30 Ondansetron HCl (Zofran Inj) 4 mg Q4H PRN IV NAUSEA AND/OR VOMITING Last admin istered on 06/05/18 09:12; Admin Dose 4 MG; Start 05/27/18 at 11:30 Levothyroxine Sodium (Synthroid) 50 mcg BEFORE BREAKFAST PO Last administered on 06/05/18 06:00; Admin Dose 50 MCG; Start 05/30/18 at 07:00 Mometasone Furoate (Asmanex) 1 puff DAILY INH Last administered on 06/04/18 09:03; Admin Dose 1 PUFF; Start 05/29/18 at 11:00 Atorvastatin Calcium (Lipitor) 10 mg DAILY@21 PO Last administered on 06/04/18 21:16; Admin Dose 10 MG; Start 05/29/18 at 21:00 Latanoprost (Xalatan) 1 drop HS BOTH EYES Last administered on 06/04/18 21:16; Admin Dose 1 DROP; Start 06/01/18 at 21:00 Amlodipine Besylate (Norvasc) 5 mg DAILY PO ; Start 06/03/18 at 09:00; Status Hold Norepinephrine 16 mg/Dextrose 250 ml @ 0.94 mls/hr TITRATE IV ; Start 06/02/18 at 15:30 Phenylephrine HCl 40 mg/Dextrose 250 ml @ 37.5 mls/hr TITRATE IV ; Start 06/02/18 at 19:30 Pantoprazole (Protonix Tab) 40 mg DAILY@06 PO Last administered on 06/05/18 05:54; Admin Dose 40 MG; Start 06/05/18 at 06:00 Miscellaneous Information (* Miscellaneous Pharmacy Order) Hold all Metformin ... ONCE XX ; Start 06/04/18 at 19:00; Stop 06/06/18 at 18:59 Metoclopramide HCl (Reglan) 10 mg TID PRN IV Nausea Last administered on 06/05/18 05:54; Admin Dose 10 MG; Start 06/04/18 at 19:00 Heparin Sodium (Porcine) (Heparin (1000 Units/ml)) 3,800 unit PER PROTOCOL PRN IV aPTT<47 Last administered on 06/05/18 05:52; Admin Dose 3,800 UNIT; Start 06/04/18 at 19:00 Heparin Sodium (Porcine) 250 ml @ 7.5 mls/hr PER PROTOCOL IV Last administered on 06/04/18 23:42; Admin Dose 2.5 MLS/HR; Start 06/04/18 at 19:00 Ceftriaxone Sodium 50 ml @ 100 mls/hr Q24H IVPB Last administered on 06/04/18at 21:16; Admin Dose 100 MLS/HR; Start 06/04/18 at 20:30 CHRIS LAZAR Jun 05, 2018 10:23
[2018-06-05] MEDS ORDERED: BUMETANIDE 1 MG INJ IV ONE (10:30)
--- NOTE | 2018-06-05 11:11 | PN ---
Date/Time of Note Date/Time of Note DATE: 06/05/18 TIME: 11:10 Assessment/Plan VTE Prophylaxis Risk score (from Ns)>0 risk: 7 SCD applied (from Ns): Yes Pharmacological prophylaxis: LMWH Lines/Catheters IV [facility] Peripheral IV Urinary Cath still in place: Yes Reason Cath still needed: skin wounds contaminated by urine Assessment/Plan Hospital Course - Oliguria 2/2/ Possible Acute Tubular Necrosis - Nephro consult- Dr Laughlin on case - possible HD if Renal functions do not improve - STAT BMP - Stat CXR Oliguria- - urology on case - Abdominal US - fu results - Edema BLE 2/2 renal failure - Hyperkalemia - per nephro -Coronary arteries, status post left heart catheterization with no significant obstructive coronary artery disease by Dr. Moreno on 05/27/2018. - per cardio -Retroperitoneal bleed. - Dr. Kilpatrick is following in vascular surgery consultation -POSSIBLE Plan for drain placement by IR -Anemia of acute blood loss, status post blood transfusion, continue to monitor hemoglobin and hematocrit. -Status post mitral valve replacement with mechanical valve in 1999 in [facility]. Continue heparin drip and Coumadin. Monitor PT, PTT and INR. -HTN, continue Norvasc -Hyperlipidemia -Hypothyroidism, continue levothyroxine -History of asthma Result Diagram: 06/05/1842706/05/18427 Results 24hrs Laboratory Tests Test 06/04/18 12:33 06/04/18 19:17 06/04/18 22:39 06/05/18 00:31 White Blood Count 11.9 H 12.0 H 13.5 H Red Blood Count 3.18 L 3.02 L 2.91 L Hemoglobin 9.8 L 9.3 L 9.0 L Hematocrit 29.4 L 28.5 L 27.0 L Mean Corpuscular 92.5 94.4 92.8 Volume Mean Corpuscular 30.8 30.8 30.9 Hemoglobin Mean Corpuscular 33.3 32.6 33.3 Hemoglobin Concent Red Cell 15.4 H 15.4 H 15.4 H Distribution Width Platelet Count 177 172 185 Mean Platelet Volume 10.1 10.2 10.2 Immature 1.400 H 1.200 H 1.200 H Granulocytes % Neutrophils % 88.6 H 87.8 H 88.9 H Lymphocytes % 4.3 L 4.4 L 4.2 L Monocytes % 5.6 6.4 5.6 Eosinophils % 0.0 0.0 0.0 Basophils % 0.1 0.2 0.1 Nucleated Red Blood 0.2 H 0.3 H 0.4 H Cells % Immature 0.170 H 0.150 H 0.160 H Granulocytes # Neutrophils # 10.5 H 10.6 H 12.0 H Lymphocytes # 0.5 L 0.5 L 0.6 L Monocytes # 0.7 0.8 0.8 Eosinophils # 0.0 0.0 0.0 Basophils # 0.0 0.0 0.0 Nucleated Red Blood 0.0 0.0 0.1 H Cells # Sodium Level 134 L Potassium Level 5.2 H Chloride Level 101 Carbon Dioxide Level 23 Anion Gap 10 Blood Urea Nitrogen 45 H Creatinine 4.31 H Est Glomerular 10 L Filtrat Rate mL/min Glucose Level 148 Calcium Level 8.7 Prothrombin Time 22.2 H Prothrombin Time 1.7 Ratio INR International 1.94 Normalized Ratio Activated > 180.0 *H 57.8 H Partial Thromboplast Time Test 06/05/18 04:28 White Blood Count 12.8 H Red Blood Count 2.84 L Hemoglobin 8.7 L Hematocrit 26.5 L Mean Corpuscular 93.3 Volume Mean Corpuscular 30.6 Hemoglobin Mean Corpuscular 32.8 Hemoglobin Concent Red Cell 15.3 H Distribution Width Platelet Count 180 Mean Platelet Volume 10.0 Immature 1.800 H Granulocytes % Neutrophils % 87.3 H Lymphocytes % 4.5 L Monocytes % 6.1 Eosinophils % 0.0 Basophils % 0.3 Nucleated Red Blood 0.5 H Cells % Immature 0.230 H Granulocytes # Neutrophils # 11.1 H Lymphocytes # 0.6 L Monocytes # 0.8 Eosinophils # 0.0 Basophils # 0.0 Nucleated Red Blood 0.1 H Cells # Prothrombin Time 19.2 H Prothrombin Time 1.5 Ratio INR International 1.61 Normalized Ratio Activated 34.8 Partial Thromboplast Time Sodium Level 138 Potassium Level 5.4 H Chloride Level 104 Carbon Dioxide Level 22 Anion Gap 12 Blood Urea Nitrogen 59 H Creatinine 5.06 H Est Glomerular 9 L Filtrat Rate mL/min Glucose Level 124 Calcium Level 8.4 Subjective 24 Hr Interval Summary Free Text/Dictation Patient has no complaints Exam/Review of Systems Exam Vitals Vital Signs Date Temp Pulse Resp B/P (MAP) Pulse Ox O2 O2 Flow FiO2 Time Delivery Rate 06/05/18 95 15 91/37 (55) 96 Nasal 2.0 10:00 Cannula 06/05/18 98.3 08:00 Intake and Output 06/04/18 06/04/18 06/05/18 1515:00 23:00 07:00 IntakeIntake Total 200 ml 130 ml 382.5 ml OutputOutput Total 75 ml 150 ml 220 ml BalanceBalance 125 ml -20 ml 162.5 ml Constitutional: well developed Head: normocephalic, atraumatic Neck: supple Respiratory: diminished breath sounds Cardiovascular: regular rate and rhythm Gastrointestinal: soft, non-tender Extremities: normal pulses Results Results 24hrs Laboratory Tests Test 06/04/18 12:33 06/04/18 19:17 06/04/18 22:39 06/05/18 00:31 White Blood Count 11.9 H 12.0 H 13.5 H Red Blood Count 3.18 L 3.02 L 2.91 L Hemoglobin 9.8 L 9.3 L 9.0 L Hematocrit 29.4 L 28.5 L 27.0 L Mean Corpuscular 92.5 94.4 92.8 Volume Mean Corpuscular 30.8 30.8 30.9 Hemoglobin Mean Corpuscular 33.3 32.6 33.3 Hemoglobin Concent Red Cell 15.4 H 15.4 H 15.4 H Distribution Width Platelet Count 177 172 185 Mean Platelet Volume 10.1 10.2 10.2 Immature 1.400 H 1.200 H 1.200 H Granulocytes % Neutrophils % 88.6 H 87.8 H 88.9 H Lymphocytes % 4.3 L 4.4 L 4.2 L Monocytes % 5.6 6.4 5.6 Eosinophils % 0.0 0.0 0.0 Basophils % 0.1 0.2 0.1 Nucleated Red Blood 0.2 H 0.3 H 0.4 H Cells % Immature 0.170 H 0.150 H 0.160 H Granulocytes # Neutrophils # 10.5 H 10.6 H 12.0 H Lymphocytes # 0.5 L 0.5 L 0.6 L Monocytes # 0.7 0.8 0.8 Eosinophils # 0.0 0.0 0.0 Basophils # 0.0 0.0 0.0 Nucleated Red Blood 0.0 0.0 0.1 H Cells # Sodium Level 134 L Potassium Level 5.2 H Chloride Level 101 Carbon Dioxide Level 23 Anion Gap 10 Blood Urea Nitrogen 45 H Creatinine 4.31 H Est Glomerular 10 L Filtrat Rate mL/min Glucose Level 148 Calcium Level 8.7 Prothrombin Time 22.2 H Prothrombin Time 1.7 Ratio INR International 1.94 Normalized Ratio Activated > 180.0 *H 57.8 H Partial Thromboplast Time Test 06/05/18 04:28 White Blood Count 12.8 H Red Blood Count 2.84 L Hemoglobin 8.7 L Hematocrit 26.5 L Mean Corpuscular 93.3 Volume Mean Corpuscular 30.6 Hemoglobin Mean Corpuscular 32.8 Hemoglobin Concent Red Cell 15.3 H Distribution Width Platelet Count 180 Mean Platelet Volume 10.0 Immature 1.800 H Granulocytes % Neutrophils % 87.3 H Lymphocytes % 4.5 L Monocytes % 6.1 Eosinophils % 0.0 Basophils % 0.3 Nucleated Red Blood 0.5 H Cells % Immature 0.230 H Granulocytes # Neutrophils # 11.1 H Lymphocytes # 0.6 L Monocytes # 0.8 Eosinophils # 0.0 Basophils # 0.0 Nucleated Red Blood 0.1 H Cells # Prothrombin Time 19.2 H Prothrombin Time 1.5 Ratio INR International 1.61 Normalized Ratio Activated 34.8 Partial Thromboplast Time Sodium Level 138 Potassium Level 5.4 H Chloride Level 104 Carbon Dioxide Level 22 Anion Gap 12 Blood Urea Nitrogen 59 H Creatinine 5.06 H Est Glomerular 9 L Filtrat Rate mL/min Glucose Level 124 Calcium Level 8.4 Medications Medication Current Medications Acetaminophen (Tylenol Tab) 650 mg Q4H PRN PO FEVER GREATER THAN 100.6 Last administered on 06/02/18at 11:12; Admin Dose 650 MG; Start 05/27/18 at 11:30 Morphine Sulfate (morphine) 2 mg Q2H PRN IV FOR NON CARDIAC PAIN (4-10) Last administered on 06/05/18at 05:55; Admin Dose 2 MG; Start 05/27/18 at 11:30 Al Hydrox/Mg Hydrox/Simethicone (Mag-Al Plus) 30 ml Q4H PRN PO GASTROINTESTINAL UPSET; Start 05/27/18 at 11:30 Ondansetron HCl (Zofran Inj) 4 mg Q4H PRN IV NAUSEA AND/OR VOMITING Last administered on 06/05/18 09:12; Admin Dose 4 MG; Start 05/27/18 at 11:30 Levothyroxine Sodium (Synthroid) 50 mcg BEFORE BREAKFAST PO Last administered on 06/05/18 06:00; Admin Dose 50 MCG; Start 05/30/18 at 07:00 Mometasone Furoate (Asmanex) 1 puff DAILY INH Last administered on 06/05/18 10:28; Admin Dose 1 PUFF; Start 05/29/18 at 11:00 Atorvastatin Calcium (Lipitor) 10 mg DAILY@21 PO Last administered on 06/04/18 21:16; Admin Dose 10 MG; Start 05/29/18 at 21:00 Latanoprost (Xalatan) 1 drop HS BOTH EYES Last administered on 06/04/18 21:16; Admin Dose 1 DROP; Start 06/01/18 at 21:00 Amlodipine Besylate (Norvasc) 5 mg DAILY PO ; Start 06/03/18 at 09:00; Status Hold Norepinephrine 16 mg/Dextrose 250 ml @ 0.94 mls/hr TITRATE IV ; Start 06/02/18 at 15:30 Phenylephrine HCl 40 mg/Dextrose 250 ml @ 37.5 mls/hr TITRATE IV ; Start 06/02/18 at 19:30 Pantoprazole (Protonix Tab) 40 mg DAILY@06 PO Last administered on 06/05/18 05:54; Admin Dose 40 MG; Start 06/05/18 at 06:00 Miscellaneous Information (* Miscellaneous Pharmacy Order) Hold all Metformin ... ONCE XX ; Start 06/04/18 at 19:00; Stop 06/06/18 at 18:59 Metoclopramide HCl (Reglan) 10 mg TID PRN IV Nausea Last administered on 06/05/18 05:54; Admin Dose 10 MG; Start 06/04/18 at 19:00 Heparin Sodium (Porcine) (Heparin (1000 Units/ml)) 3,800 unit PER PROTOCOL PRN IV aPTT<47 Last administered on 06/05/18 05:52; Admin Dose 3,800 UNIT; Start 06/04/18 at 19:00 Heparin Sodium (Porcine) 250 ml @ 7.5 mls/hr PER PROTOCOL IV Last administered on 2/23/19at 23:42; Admin Dose 2.5 MLS/HR; Start 06/04/18 at 19:00 Ceftriaxone Sodium 50 ml @ 100 mls/hr Q24H IVPB Last administered on 06/04/18at 21:16; Admin Dose 100 MLS/HR; Start 06/04/18 at 20:30 Sodium Chloride 1,000 ml @ 60 mls/hr [id number] IV Last administered on 06/05/18at 10:27; Admin Dose 60 MLS/HR; Start 06/05/18 at 10:30 ABDIRASHID PRATHER Jun 05, 2018 11:11
[2018-06-05] MEDS ORDERED: FENTAnyl 50 MCG/ML VIAL ONE (12:49)
[2018-06-05] MEDS ORDERED: MIDAZOLAM 1 MG/ML 2 ML INJ ONE (12:49)
[2018-06-05] MEDS ORDERED: LIDOCAINE 1% (MPF) 5 ML VIAL ONE (13:09)
--- NOTE | 2018-06-05 13:58 | PN ---
Date/Time of Note Date/Time of Note DATE: 06/05/18 TIME: 13:55 Assessment/Plan Lines/Catheters IV Catheter Type (from Nrs): Peripheral IV Mens[place] in Place (from Nrs): Yes Assessment/Plan Chief Complaint/Hosp Course Status post repair of right common femoral artery and external iliac artery No evidence of any bleeding very minimal drop in the hemoglobin today Patient with minimal urine output Need drainage of the retroperitoneal blood. Interventional radiology contacted again today I spoke with Dr. Middleton myself for placement of a percutaneous catheter to the hematoma to drain the fluid and decreased intra-abdominal pressure and possibly improving renal function The delicate balance of maintaining anticoagulation for prosthetic mitral valve versus bleeding intra-abdominally and the patient's high risk nature of proceeding with open surgery explained in detail to the patient's family Need for anticoagulation was stressed to them considering the mechanical valve They understand that if the patient is not adequately anticoagulated she may have thrombosis of the mechanical valve with devastating consequences I do not think she is a good candidate to undergo open surgery unless it is absolutely necessary secondary to possible complications, poor medical condition, failure and also bleeding secondary to anticoagulation Patient has warm left foot circulation is improved capillary refill is 1-2 seconds with palpable pedal pulses She is starting to make urine on diuretics to creatinine is up to 5 potassium is 5.4 May need temporary dialysis catheter if the renal function does not resolve Will Monitor vital signs Will monitor hemoglobin levels Subjective 24 Hr Interval Summary Constitutional: improved Pain Control: mild Exam/Review of Systems Vital Signs Vitals Vital Signs Date Temp Pulse Resp B/P (MAP) Pulse Ox O2 O2 Flow FiO2 Time Delivery Rate 06/05/18 98 2.0 12:37 06/05/18 98.4 93 18 128/58 Nasal 12:00 (81) Cannula Intake and Output 06/04/18 06/04/18 06/05/18 1515:00 23:00 07:00 IntakeIntake Total 200 ml 130 ml 382.5 ml OutputOutput Total 75 ml 150 ml 220 ml BalanceBalance 125 ml -20 ml 162.5 ml Exam Eyes: nl conjunctiva, EOMI, nl lids, nl sclera ENMT: nl external ears & nose, nl lips & teeth, nl nasal mucosa & septum, mucosa pink and moist Neck: supple, non-tender Respiratory: clear to auscultation, normal air movement Cardiovascular: regular rate and rhythm, nl pulses Musculoskeletal: nl extremities to inspection, nl gait and stance Additional Comments Abdomen is less distended There is palpable left dorsalis pedis pulse and strong Doppler signals in the posterior tibial Capillary refill 1-2-second Left foot is warmer Results Result Diagram: 06/05/18 0428 06/05/188 KIRILL CHRISTIAN MD Jun 05, 2018 13:58
[2018-06-05] MEDS: CEFTRIAXONE 1 GM/50 ML (PMX) 50 ML IVPB SCH (20:36)
[2018-06-05] MEDS: ATORVASTATIN 10 MG TAB PO SCH (20:37)
[2018-06-05] MEDS: LATANOPROST 0.005% 2.5 ML OPH BOTH EYES SCH (20:37)
--- NOTE | 2018-06-05 21:57 | CONS ---
Assessment/Plan Assessment/Plan Hospital Course (Demo Recall) assessment/impression - Severe sepsis due to UTI - SIRS due to acute blood loss - UTI due to E. 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, s/p covered stent placement 6 x 100 mm right common femoral artery and right external iliac artery, abdominal aortogram, catheter introduction to the abdominal aorta, JOSÉ MIGUEL guidance into the central artery 06/02/2018 - s/p retroperitoneal bleed - s/p acute anemia requiring PRBC - s/p CT guided placement of drainage catheter into pelvic hematoma 06/05/2018 - Oliguric FORREST - s/p L heart catheterization on 05/27/2018 showing no significant obstructive CAD - [place] - H/o MVR with mechanical valve, in 1999 - cholelithiasis without e/o acute cholecystitis - Hypertension - Hyperlipidemia - Hypothyroidism - ssthma - s/p FOURNIER, resolved. CT head shows no acute findings recommendations: - pending: cultures of drained fluid from 06/05/2018 - continue ceftriaxone (06/04/2018-), plan to end on 06/09/2018. Pt previously received pip/tazo (06/02/2018-06/03/2018) management d/w Pt, her RN and the critical care time I took to care for this Pt today was from 2029 to 2099 Consultation Date/Type/Reason Admit Date/Time May 28, 2018 at 17:52 Initial Consult Date 06/03/18 Requesting Provider: JULY VALENTIN MD Date/Time of Note DATE: 06/05/18 TIME: 21:51 24 HR Interval Summary Free Text/Dictation s/p CT guided placement of drainage catheter into pelvic hematoma Constitutional: requiring O2 Detailed Summary Eyes: no complaints ENT: no complaints Respiratory: shortness of breath Cardiovascular: no complaints Gastrointestinal: nausea Genitourinary: other (FC) Musculoskeletal: no complaints Skin: other (ecchymoses of RUE) Neurologic: No headache Exam/Review of Systems Exam Vitals Vital Signs Date Temp Pulse Resp B/P (MAP) Pulse Ox O2 O2 Flow FiO2 Time Delivery Rate 06/05/18 96 20:00 06/05/18 20 131/70 98 Nasal 2.0 18:00 (90) Cannula 06/05/18 98.3 17:00 Intake and Output 06/04/18 06/04/18 06/05/18 1515:00 23:00 07:00 IntakeIntake Total 200 ml 130 ml 382.5 ml OutputOutput Total 75 ml 150 ml 220 ml BalanceBalance 125 ml -20 ml 162.5 ml Constitutional: frail Psych: no complaints Head: normocephalic, atraumatic Eyes: nl conjunctiva, nl lids ENMT: nl external ears & nose, nl nasal mucosa & septum, mucosa pink and moist Neck: non-tender Respiratory: diminished breath sounds Cardiovascular: regular rate and rhythm, nl pulses, edema Gastrointestinal: soft, non-tender, other (+drain on R flank, collecting bloody fluid); No distended Genitourinary - Female: other (FC) Musculoskeletal: No swelling Extremities: pitting pedal edema Neurological: lethargic Skin: ecchymosis (RUE) Results Result Diagram: 06/05/18200906/05/181999 Results 24hrs Laboratory Tests Test 06/04/18 22:39 06/05/18 00:27 06/05/18 00:31 06/05/18 04:28 Activated 57.8 H 34.8 Partial Thromboplast Time Hepatitis B Surface NEGATIVE Antigen White Blood Count 13.5 H 12.8 H Red Blood Count 2.91 L 2.84 L Hemoglobin 9.0 L 8.7 L Hematocrit 27.0 L 26.5 L Mean Corpuscular 92.8 93.3 Volume Mean Corpuscular 30.9 30.6 Hemoglobin Mean Corpuscular 33.3 32.8 Hemoglobin Concent Red Cell 15.4 H 15.3 H Distribution Width Platelet Count 185 180 Mean Platelet Volume 10.2 10.0 Immature 1.200 H 1.800 H Granulocytes % Neutrophils % 88.9 H 87.3 H Lymphocytes % 4.2 L 4.5 L Monocytes % 5.6 6.1 Eosinophils % 0.0 0.0 Basophils % 0.1 0.3 Nucleated Red Blood 0.4 H 0.5 H Cells % Immature 0.160 H 0.230 H Granulocytes # Neutrophils # 12.0 H 11.1 H Lymphocytes # 0.6 L 0.6 L Monocytes # 0.8 0.8 Eosinophils # 0.0 0.0 Basophils # 0.0 0.0 Nucleated Red Blood 0.1 H 0.1 H Cells # Prothrombin Time 19.2 H Prothrombin Time 1.5 Ratio INR International 1.61 Normalized Ratio Sodium Level 138 Potassium Level 5.4 H Chloride Level 104 Carbon Dioxide Level 22 Anion Gap 12 Blood Urea Nitrogen 59 H Creatinine 5.06 H Est Glomerular 9 L Filtrat Rate mL/min Glucose Level 124 Calcium Level 8.4 Test 06/05/18 11:23 06/05/18 20:00 06/05/18 20:10 Activated 48.5 H 55.6 H Partial Thromboplast Time Sodium Level 138 Potassium Level 5.0 Chloride Level 101 Carbon Dioxide Level 23 Anion Gap 14 H Blood Urea Nitrogen 67 H Creatinine 5.10 H Est Glomerular 9 L Filtrat Rate mL/min Glucose Level 107 Calcium Level 8.1 L White Blood Count 13.1 H Red Blood Count 2.76 L Hemoglobin 8.5 L Hematocrit 26.0 L Mean Corpuscular 94.2 Volume Mean Corpuscular 30.8 Hemoglobin Mean Corpuscular 32.7 Hemoglobin Concent Red Cell 15.7 H Distribution Width Platelet Count 202 Mean Platelet Volume 10.1 Immature 2.800 H Granulocytes % Neutrophils % 85.8 H Lymphocytes % 4.5 L Monocytes % 6.6 Eosinophils % 0.1 Basophils % 0.2 Nucleated Red Blood 1.1 H Cells % Immature 0.370 H Granulocytes # Neutrophils # 11.2 H Lymphocytes # 0.6 L Monocytes # 0.9 Eosinophils # 0.0 Basophils # 0.0 Nucleated Red Blood 0.1 H Cells # Medications Medication Current Medications Acetaminophen (Tylenol Tab) 650 mg Q4H PRN PO FEVER GREATER THAN 100.6 Last administered on 06/02/18at 11:12; Admin Dose 650 MG; Start 05/27/18 at 11:30 Morphine Sulfate (morphine) 2 mg Q2H PRN IV FOR NON CARDIAC PAIN (4-10) Last administered on 06/05/18at 05:55; Admin Dose 2 MG; Start 05/27/18 at 11:30 Al Hydrox/Mg Hydrox/Simethicone (Mag-Al Plus) 30 ml Q4H PRN PO GASTROINTESTINAL UPSET; Start 05/27/18 at 11:30 Ondansetron HCl (Zofran Inj) 4 mg Q4H PRN IV NAUSEA AND/OR VOMITING Last administered on 06/05/18at 20:36; Admin Dose 4 MG; Start 05/27/18 at 11:30 Levothyroxine Sodium (Synthroid) 50 mcg BEFORE BREAKFAST PO Last administered on 06/05/18 06:00; Admin Dose 50 MCG; Start 05/30/18 at 07:00 Mometasone Furoate (Asmanex) 1 puff DAILY INH Last administered on 06/05/18 10:28; Admin Dose 1 PUFF; Start 05/29/18 at 11:00 Atorvastatin Calcium (Lipitor) 10 mg DAILY@21 PO Last administered on 06/05/18 20:37; Admin Dose 10 MG; Start 05/29/18 at 21:00 Latanoprost (Xalatan) 1 drop HS BOTH EYES Last administered on 06/05/18 20:37; Admin Dose 1 DROP; Start 06/01/18 at 21:00 Amlodipine Besylate (Norvasc) 5 mg DAILY PO ; Start 06/03/18 at 09:00; Status Hold Norepinephrine 16 mg/Dextrose 250 ml @ 0.94 mls/hr TITRATE IV ; Start 06/02/18 at 15:30 Phenylephrine HCl 40 mg/Dextrose 250 ml @ 37.5 mls/hr TITRATE IV ; Start 06/02/18 at 19:30 Pantoprazole (Protonix Tab) 40 mg DAILY@06 PO Last administered on 06/05/18 05:54; Admin Dose 40 MG; Start 06/05/18 at 06:00 Miscellaneous Information (* Miscellaneous Pharmacy Order) Hold all Metformin ... ONCE XX ; Start 06/04/18 at 19:00; Stop 06/06/18 at 18:59 Metoclopramide HCl (Reglan) 10 mg TID PRN IV Nausea Last administered on 06/05/18 20:36; Admin Dose 10 MG; Start 06/04/18 at 19:00 Heparin Sodium (Porcine) (Heparin (1000 Units/ml)) 3,800 unit PER PROTOCOL PRN IV aPTT<47 Last administered on 06/05/18 05:52; Admin Dose 3,800 UNIT; Start 06/04/18 at 19:00 Heparin Sodium (Porcine) 250 ml @ 7.5 mls/hr PER PROTOCOL IV Last administered on 06/04/18 23:42; Admin Dose 2.5 MLS/HR; Start 06/04/18 at 19:00 Ceftriaxone Sodium 50 ml @ 100 mls/hr Q24H IVPB Last administered on 06/05/18at 20:36; Admin Dose 100 MLS/HR; Start 06/04/18 at 20:30 Sodium Chloride 1,000 ml @ 60 mls/hr [id number] IV Last administered on 06/05/18at 10:27; Admin Dose 60 MLS/HR; Start 06/05/18 at 10:30 SHARI CROWELL M.D. Jun 05, 2018 21:57
[2018-06-06] VITALS (25 sets, daily range): BP systolic 97–146; BP diastolic 52–78; PULSE 89–103; RESP 18–40
[2018-06-06] MEDS: ONDANSETRON 4 MG INJ IV PRN ×2 (00:59→06:05)
[2018-06-06] MEDS: SOD CHLORIDE 0.9% 1,000 ML IV SCH (04:06)
[2018-06-06] MEDS: LEVOTHYROXINE 50 MCG TAB PO SCH (06:05)
[2018-06-06] MEDS: PANTOPRAZOLE (EC) 40 MG TAB PO SCH (06:05)
[2018-06-06] MEDS: METOCLOPRAMIDE 10 MG INJ IV PRN (06:06)
[2018-06-06] MEDS: MOMETASONE 0.24 GM INHALER INH SCH (10:05)
[2018-06-06] MEDS ORDERED: METOCLOPRAMIDE 10 MG INJ IV PRN (11:00)
--- NOTE | 2018-06-06 12:24 | PN ---
Date/Time of Note Date/Time of Note DATE: 06/06/18 TIME: 12:20 Assessment/Plan Lines/Catheters IV Catheter Type (from Nrs): Peripheral IV Mensah in Place (from Nrs): Yes Assessment/Plan Chief Complaint/Hosp Course Status post repair of right common femoral artery and external iliac artery No evidence of any bleeding Patient with minimal urine output The delicate balance of maintaining anticoagulation for prosthetic mitral valve versus bleeding intra-abdominally and the patient's high risk nature of proceeding with open surgery explained in detail to the patient's family Need for anticoagulation was stressed to them considering the mechanical valve They understand that if the patient is not adequately anticoagulated she may have thrombosis of the mechanical valve with devastating consequences I do not think she is a good candidate to undergo open surgery unless it is absolutely necessary secondary to possible complications, poor medical condition, failure and also bleeding secondary to anticoagulation Patient has warm left foot circulation is improved capillary refill is 1-2 seconds with palpable pedal pulses May need temporary dialysis catheter if the renal function does not resolve Will Monitor vital signs Will monitor hemoglobin levels Subjective 24 Hr Interval Summary Constitutional: improved Pain Control: mild Exam/Review of Systems Vital Signs Vitals Vital Signs Date Temp Pulse Resp B/P (MAP) Pulse Ox O2 O2 Flow FiO2 Time Delivery Rate 06/06/18 89 21 135/62 98 Nasal 11:00 (86) Cannula 06/06/18 2.0 08:15 06/06/18 98.3 04:00 Intake and Output 06/05/18 06/05/18 06/06/18 1414:59 22:59 06:59 IntakeIntake Total 290 ml 733.0 ml 568.0 ml OutputOutput Total 295 ml 485 ml 625 ml BalanceBalance -5 ml 248.0 ml -57.0 ml Exam Eyes: nl conjunctiva, EOMI, nl lids, nl sclera ENMT: nl external ears & nose, nl lips & teeth, nl nasal mucosa & septum, mucosa pink and moist Neck: supple, non-tender Respiratory: clear to auscultation, normal air movement Cardiovascular: regular rate and rhythm, nl pulses Additional Comments Bilateral lower extremity warm to touch no signs of ischemia Patient has palpable left dorsalis pedis pulses palpable left femoral pulses Apley refill is 2 seconds Groins are soft no signs of bleeding Abdomen is softer today Results Result Diagram: 06/06/18 0430 06/06/18 0430 KIRILL CHRISTIAN MD Jun 06, 2018 12:24
--- NOTE | 2018-06-06 12:49 | CONS ---
Assessment/Plan Assessment/Plan Hospital Course (Demo Recall) IMP: 1.cad s/p LHC with no sig obstructive cad 2.HTN 3.RP Bleed s/p transfusions now stable and tolerating heparin/coumadin loading. Then had recurrent bled overnight now s/p covered stent to PASSENGER TIRE BUILDER/Ext iliac. Stable collection by abd CT today s/p placement of pigtail catheter 4.HL 5.MVR-mechanical 6.anemia-worseing, ? ongoing bleeding versus residual from intial bleed/L femoral after repair of R PASSENGER TIRE BUILDER/illiac 7.Hypothyroid 8. FOURNIER-negative Head CT 9. Fevers-with positive ua 10. UTI 11.ARF-? Contrast induced/compression from hematoma 12. Coagulopathy-likely secondary to coumadin 14. LE weakness-? compression from hematoma and exacerbated by femoral compression after cath 15. 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 Renal now following with patient making increased urine. Holding off on HD. K stable. Would continue fluid/lasix challenge -IR to reassess drainage of catheter and need to D/C or maintain and question need to repeat Abd CT to reassess collection assure stable to decreased given worsening anemia -Follow serial Hgb with possible need for additional transfusion -To have PICC line placed for blood draw as having difficulty drawing blood Consultation Date/Type/Reason Admit Date/Time May 28, 2018 at 17:52 Initial Consult Date 05/28/18 Type of Consult Cardiology Reason for Consultation /cad Requesting Provider: JULY VALENTIN MD Date/Time of Note DATE: 06/06/18 TIME: 12:40 Exam/Review of Systems Vital Signs Vitals Vital Signs Date Temp Pulse Resp B/P (MAP) Pulse Ox O2 O2 Flow FiO2 Time Delivery Rate 06/06/18 90 12:00 06/06/18 21 135/62 98 Nasal 11:00 (86) Cannula 06/06/18 2.0 08:15 06/06/18 98.3 04:00 Intake and Output 06/05/18 06/05/18 06/06/18 1515:00 23:00 07:00 IntakeIntake Total 372.5 ml 717.0 ml 567.5 ml OutputOutput Total 335 ml 455 ml 585 ml BalanceBalance 37.5 ml 262.0 ml -17.5 ml Exam Exam Review of Systems: CONSTITUTIONAL: No fevers, chills. PULMONARY: No sob CARDIOVASCULAR: No chest pain/palpitations GASTROINTESTINAL: No nausea/vomiting. GENITOURINARY: No hematuria/dysuria. MUSCULOSKELETAL: No myagias/arthalgias. PSYCHIATRIC: The patient denies depression. NEUROLOGIC: No weakness Constitutional: alert Psych: no complaints Head: normocephalic ENMT: mucosa pink and moist Neck: supple, jvd (9 cm water) Respiratory: diminished breath sounds Cardiovascular: regular rate and rhythm Gastrointestinal: soft, non-tender Musculoskeletal: muscle tone (normal) Extremities: pitting pedal edema (trace/B) Neurological: other (No focal deficits) Labs Result Diagram: 06/06/18 0430 06/06/18 0430 Results 24hrs Laboratory Tests Test 06/05/18 20:00 06/05/18 20:10 06/06/18 02:00 06/06/18 04:26 Sodium Level 138 Potassium Level 5.0 Chloride Level 101 Carbon Dioxide Level 23 Anion Gap 14 H Blood Urea Nitrogen 67 H Creatinine 5.10 H Est Glomerular 9 L Filtrat Rate mL/min Glucose Level 107 Calcium Level 8.1 L White Blood Count 13.1 H Red Blood Count 2.76 L Hemoglobin 8.5 L Hematocrit 26.0 L Mean Corpuscular 94.2 Volume Mean Corpuscular 30.8 Hemoglobin Mean Corpuscular 32.7 Hemoglobin Concent Red Cell 15.7 H Distribution Width Platelet Count 202 Mean Platelet Volume 10.1 Immature 2.800 H Granulocytes % Neutrophils % 85.8 H Lymphocytes % 4.5 L Monocytes % 6.6 Eosinophils % 0.1 Basophils % 0.2 Nucleated Red Blood 1.1 H Cells % Immature 0.370 H Granulocytes # Neutrophils # 11.2 H Lymphocytes # 0.6 L Monocytes # 0.9 Eosinophils # 0.0 Basophils # 0.0 Nucleated Red Blood 0.1 H Cells # Activated 55.6 H 66.0 H Partial Thromboplast Time Magnesium Level 2.1 Test 06/06/18 04:30 White Blood Count 11.6 H Red Blood Count 2.60 L Hemoglobin 8.0 L Hematocrit 24.8 L Mean Corpuscular 95.4 Volume Mean Corpuscular 30.8 Hemoglobin Mean Corpuscular 32.3 Hemoglobin Concent Red Cell 15.7 H Distribution Width Platelet Count 190 Mean Platelet Volume 10.2 Immature 4.200 H Granulocytes % Neutrophils % 84.7 H Lymphocytes % 3.8 L Monocytes % 6.8 Eosinophils % 0.2 Basophils % 0.3 Nucleated Red Blood 1.2 H Cells % Immature 0.480 H Granulocytes # Neutrophils # 9.8 H Lymphocytes # 0.4 L Monocytes # 0.8 Eosinophils # 0.0 Basophils # 0.0 Nucleated Red Blood 0.1 H Cells # Prothrombin Time 18.7 H Prothrombin Time 1.5 Ratio INR International 1.55 Normalized Ratio Activated 72.0 *H Partial Thromboplast Time Sodium Level 138 Potassium Level 4.8 Chloride Level 103 Carbon Dioxide Level 23 Anion Gap 12 Blood Urea Nitrogen 74 H Creatinine 5.47 H Est Glomerular 8 L Filtrat Rate mL/min Glucose Level 101 Calcium Level 8.3 L Medications Medications Current Medications Acetaminophen (Tylenol Tab) 650 mg Q4H PRN PO FEVER GREATER THAN 100.6 Last administered on 06/02/18at 11:12; Admin Dose 650 MG; Start 05/27/18 at 11:30 Morphine Sulfate (morphine) 2 mg Q2H PRN IV FOR NON CARDIAC PAIN (4-10) Last administered on 06/05/18 05:55; Admin Dose 2 MG; Start 05/27/18 at 11:30 Al Hydrox/Mg Hydrox/Simethicone (Mag-Al Plus) 30 ml Q4H PRN PO GASTROINTESTINAL UPSET; Start 05/27/18 at 11:30 Ondansetron HCl (Zofran Inj) 4 mg Q4H PRN IV NAUSEA AND/OR VOMITING Last administered on 06/06/18 06:05; Admin Dose 4 MG; Start 05/27/18 at 11:30 Levothyroxine Sodium (Synthroid) 50 mcg BEFORE BREAKFAST PO Last administered on 06/06/18 06:05; Admin Dose 50 MCG; Start 05/30/18 at 07:00 Mometasone Furoate (Asmanex) 1 puff DAILY INH Last administered on 06/06/18 10:05; Admin Dose 1 PUFF; Start 05/29/18 at 11:00 Atorvastatin Calcium (Lipitor) 10 mg DAILY@21 PO Last administered on 06/05/18at 20:37; Admin Dose 10 MG; Start 05/29/18 at 21:00 Latanoprost (Xalatan) 1 drop HS BOTH EYES Last administered on 06/05/18at 20:37; Admin Dose 1 DROP; Start 06/01/18 at 21:00 Amlodipine Besylate (Norvasc) 5 mg DAILY PO ; Start 06/03/18 at 09:00; Status Hold Norepinephrine 16 mg/Dextrose 250 ml @ 0.94 mls/hr TITRATE IV ; Start 06/02/18 at 15:30 Phenylephrine HCl 40 mg/Dextrose 250 ml @ 37.5 mls/hr TITRATE IV ; Start 06/02/18 at 19:30 Pantoprazole (Protonix Tab) 40 mg DAILY@06 PO Last administered on 06/06/18 06:05; Admin Dose 40 MG; Start 06/05/18 at 06:00 Miscellaneous Information (* Miscellaneous Pharmacy Order) Hold all Metformin ... ONCE XX ; Start 06/04/18 at 19:00; Stop 06/06/18 at 18:59 Heparin Sodium (Porcine) (Heparin (1000 Units/ml)) 3,800 unit PER PROTOCOL PRN IV aPTT<47 Last administered on 06/05/18 05:52; Admin Dose 3,800 UNIT; Start 06/04/18 at 19:00 Heparin Sodium (Porcine) 250 ml @ 7.5 mls/hr PER PROTOCOL IV Last administered on 06/04/18at 23:42; Admin Dose 2.5 MLS/HR; Start 06/04/18 at 19:00 Ceftriaxone Sodium 50 ml @ 100 mls/hr Q24H IVPB Last administered on 06/05/18at 20:36; Admin Dose 100 MLS/HR; Start 06/04/18 at 20:30 Sodium Chloride 1,000 ml @ 60 mls/hr [id number] IV Last administered on 06/06/18at 04:06; Admin Dose 60 MLS/HR; Start 06/05/18 at 10:30 Metoclopramide HCl (Reglan) 5 mg TID PRN IV Nausea; Start 06/06/18 at 11:00 CHRIS LAZAR Jun 06, 2018 12:49
[2018-06-06] MEDS ORDERED: SOD CHLORIDE 0.9% 500 ML IV SCH (13:00)
[2018-06-06] MEDS: HEPARIN 1000 UNITS/ML 10 ML INJ IV PRN (13:18)
[2018-06-06] MEDS: HEPARIN 25000 UNITS/250 ML 250 ML IV SCH (13:25)
[2018-06-06] MEDS ORDERED: LIDOCAINE 1% (MPF) 5 ML VIAL SC ONE (13:30)
[2018-06-06] MEDS ORDERED: FUROSEMIDE 40 MG INJ IV ONE (14:00)
[2018-06-06] MEDS ORDERED: BISACODYL 10 MG SUPP PR PRN (14:00)
[2018-06-06] MEDS ORDERED: POLYETHYLENE GLYCOL 17 GM PACKET PO PRN (14:00)
--- NOTE | 2018-06-06 14:22 | CONS ---
Assessment/Plan Assessment/Plan Hospital Course (Demo Recall) assessment/impression - Severe sepsis due to UTI - SIRS due to acute blood loss - UTI due to E. 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, s/p covered stent placement 6 x 100 mm right common femoral artery and right external iliac artery, abdominal aortogram, catheter introduction to the abdominal aorta, JOSÉ MIGUEL guidance into the central artery 06/02/2018 - s/p retroperitoneal bleed - s/p acute anemia requiring PRBC - s/p CT guided placement of drainage catheter into pelvic hematoma 06/05/2018 - Oliguric FORREST - s/p L heart catheterization on 05/27/2018 showing no significant obstructive CAD - [place] - H/o MVR with mechanical valve, in 1999 - cholelithiasis without e/o acute cholecystitis - Hypertension - Hyperlipidemia - Hypothyroidism - ssthma - s/p FOURNIER, resolved. CT head shows no acute findings recommendations: - pending: cultures of drained fluid from 06/05/2018 - continue ceftriaxone (06/04/2018-), plan to end on 06/07/2018. Pt previously received pip/tazo (06/02/2018-06/03/2018) management d/w Pt's RN Cecelia, , sister and son the critical care time I took to care for this Pt today was 30 min Consultation Date/Type/Reason Admit Date/Time May 28, 2018 at 17:52 Initial Consult Date 06/03/18 Type of Consult ID Reason for Consultation UTI Requesting Provider: JULY VALENTIN MD Date/Time of Note DATE: 06/06/18 TIME: 14:21 24 HR Interval Summary Constitutional: requiring O2 Detailed Summary Respiratory: No shortness of breath Cardiovascular: No chest pain Gastrointestinal: No pain Genitourinary: other (FC) Musculoskeletal: no complaints Exam/Review of Systems Exam Vitals Vital Signs Date Temp Pulse Resp B/P (MAP) Pulse Ox O2 O2 Flow FiO2 Time Delivery Rate 06/06/18 90 12:00 06/06/18 21 135/62 98 Nasal 11:00 (86) Cannula 06/06/18 2.0 08:15 06/06/18 98.3 04:00 Intake and Output 06/05/18 06/05/18 06/06/18 1515:00 23:00 07:00 IntakeIntake Total 372.5 ml 717.0 ml 567.5 ml OutputOutput Total 335 ml 455 ml 585 ml BalanceBalance 37.5 ml 262.0 ml -17.5 ml Constitutional: frail Psych: no complaints Head: normocephalic, atraumatic Eyes: nl conjunctiva, nl lids ENMT: nl external ears & nose, nl nasal mucosa & septum Neck: other (not swollen) Respiratory: clear to auscultation, normal air movement Cardiovascular: regular rate and rhythm, nl pulses Gastrointestinal: soft, non-tender; No tender Genitourinary - Female: other (FC) Musculoskeletal: nl extremities to inspection Extremities: pitting pedal edema Neurological: lethargic Skin: ecchymosis Results Result Diagram: 06/06/18 1253 06/06/18 0430 Results 24hrs Laboratory Tests Test 06/05/18 20:00 06/05/18 20:10 06/06/18 02:00 06/06/18 04:26 Sodium Level 138 Potassium Level 5.0 Chloride Level 101 Carbon Dioxide Level 23 Anion Gap 14 H Blood Urea Nitrogen 67 H Creatinine 5.10 H Est Glomerular 9 L Filtrat Rate mL/min Glucose Level 107 Calcium Level 8.1 L White Blood Count 13.1 H Red Blood Count 2.76 L Hemoglobin 8.5 L Hematocrit 26.0 L Mean Corpuscular 94.2 Volume Mean Corpuscular 30.8 Hemoglobin Mean Corpuscular 32.7 Hemoglobin Concent Red Cell 15.7 H Distribution Width Platelet Count 202 Mean Platelet Volume 10.1 Immature 2.800 H Granulocytes % Neutrophils % 85.8 H Lymphocytes % 4.5 L Monocytes % 6.6 Eosinophils % 0.1 Basophils % 0.2 Nucleated Red Blood 1.1 H Cells % Immature 0.370 H Granulocytes # Neutrophils # 11.2 H Lymphocytes # 0.6 L Monocytes # 0.9 Eosinophils # 0.0 Basophils # 0.0 Nucleated Red Blood 0.1 H Cells # Activated 55.6 H 66.0 H Partial Thromboplast Time Magnesium Level 2.1 Test 06/06/18 04:30 06/06/18 12:53 White Blood Count 11.6 H Red Blood Count 2.60 L Hemoglobin 8.0 L 7.9 L Hematocrit 24.8 L 24.3 L Mean Corpuscular 95.4 Volume Mean Corpuscular 30.8 Hemoglobin Mean Corpuscular 32.3 Hemoglobin Concent Red Cell 15.7 H Distribution Width Platelet Count 190 Mean Platelet Volume 10.2 Immature 4.200 H Granulocytes % Neutrophils % 84.7 H Lymphocytes % 3.8 L Monocytes % 6.8 Eosinophils % 0.2 Basophils % 0.3 Nucleated Red Blood 1.2 H Cells % Immature 0.480 H Granulocytes # Neutrophils # 9.8 H Lymphocytes # 0.4 L Monocytes # 0.8 Eosinophils # 0.0 Basophils # 0.0 Nucleated Red Blood 0.1 H Cells # Prothrombin Time 18.7 H Prothrombin Time 1.5 Ratio INR International 1.55 Normalized Ratio Activated 72.0 *H 45.0 H Partial Thromboplast Time Sodium Level 138 Potassium Level 4.8 Chloride Level 103 Carbon Dioxide Level 23 Anion Gap 12 Blood Urea Nitrogen 74 H Creatinine 5.47 H Est Glomerular 8 L Filtrat Rate mL/min Glucose Level 101 Calcium Level 8.3 L Medications Medication Current Medications Acetaminophen (Tylenol Tab) 650 mg Q4H PRN PO FEVER GREATER THAN 100.6 Last administered on 06/02/18at 11:12; Admin Dose 650 MG; Start 05/27/18 at 11:30 Morphine Sulfate (morphine) 2 mg Q2H PRN IV FOR NON CARDIAC PAIN (4-10) Last administered on 06/05/18at 05:55; Admin Dose 2 MG; Start 05/27/18 at 11:30 Al Hydrox/Mg Hydrox/Simethicone (Mag-Al Plus) 30 ml Q4H PRN PO GASTROINTESTINAL UPSET; Start 05/27/18 at 11:30 Ondansetron HCl (Zofran Inj) 4 mg Q4H PRN IV NAUSEA AND/OR VOMITING Last administered on 06/06/18 06:05; Admin Dose 4 MG; Start 05/27/18 at 11:30 Levothyroxine Sodium (Synthroid) 50 mcg BEFORE BREAKFAST PO Last administered on 06/06/18at 06:05; Admin Dose 50 MCG; Start 05/30/18 at 07:00 Mometasone Furoate (Asmanex) 1 puff DAILY INH Last administered on 06/06/18at 10:05; Admin Dose 1 PUFF; Start 05/29/18 at 11:00 Atorvastatin Calcium (Lipitor) 10 mg DAILY@21 PO Last administered on 06/05/18 20:37; Admin Dose 10 MG; Start 05/29/18 at 21:00 Latanoprost (Xalatan) 1 drop HS BOTH EYES Last administered on 06/05/18 20:37; Admin Dose 1 DROP; Start 06/01/18 at 21:00 Amlodipine Besylate (Norvasc) 5 mg DAILY PO ; Start 06/03/18 at 09:00; Status Hold Pantoprazole (Protonix Tab) 40 mg DAILY@06 PO Last administered on 06/06/18 06:05; Admin Dose 40 MG; Start 06/05/18 at 06:00 Miscellaneous Information (* Miscellaneous Pharmacy Order) Hold all Metformin ... ONCE XX Last administered on 06/06/18 13:51; Admin Dose 1 EA; Start 06/04/18 at 19:00; Stop 06/06/18 at 18:59 Heparin Sodium (Porcine) (Heparin (1000 Units/ml)) 3,800 unit PER PROTOCOL PRN IV aPTT<47 Last administered on 06/06/18 13:18; Admin Dose 3,800 UNIT; Start 06/04/18 at 19:00 Heparin Sodium (Porcine) 250 ml @ 7.5 mls/hr PER PROTOCOL IV Last administered on 06/06/18 13:25; Admin Dose 8.5 MLS/HR; Start 06/04/18 at 19:00 Ceftriaxone Sodium 50 ml @ 100 mls/hr Q24H IVPB Last administered on 06/05/18 20:36; Admin Dose 100 MLS/HR; Start 06/04/18 at 20:30 Metoclopramide HCl (Reglan) 5 mg TID PRN IV Nausea; Start 06/06/18 at 11:00 Sodium Chloride 500 ml @ 60 mls/hr Q8H20M IV Last administered on 06/06/18 13:47; Admin Dose 60 MLS/HR; Start 06/06/18 at 13:00; Stop 06/06/18 at 21:19 Senna/Docusate Sodium (Senokot-S) 2 tab BID PO ; Start 06/06/18 at 21:00 Polyethylene Glycol (Miralax) 17 gm BID PRN PO CONSTIPATION; Start 06/06/18 at 14:00 Bisacodyl (Dulcolax Supp) 10 mg DAILY PRN [place] CONSTIPATION; Start 06/06/18 at 14:00 SHARI CROWELL M.D. Jun 06, 2018 14:22
--- NOTE | 2018-06-06 15:27 | PN ---
DATE: 06/06/2018 SUBJECTIVE: The patient remains in serious but stable condition. The patient's urinary output has i ncreased, currently approximately 30 mL per hour. The patient does have some complaints of nausea, n o metallic taste, no pruritus, no alteration in mental status. The patient has a pigtail draining un derlying hematoma. Recent retroperitoneal bleed. The patient remains on heparin drip. No other june nts noted. OBJECTIVE: VITAL SIGNS: Blood pressure is 134/62, respiration 27, pulse 96, temperature 98.3. HEENT: Head is normocephalic. NECK: Supple. HEART: Regular rate. LUNGS: Show diminished breath sounds at the base. ABDOMEN: Soft, nontender to palpation without rebound or guarding. EXTREMITIES: Negative for clubbing, cyanosis, positive edema. DERMATOLOGIC: No rashes. MUSCULOSKELETAL: No joint effusion. NEUROLOGIC: No change in exam. MEDICATIONS: Reviewed. LABORATORY DATA: Shows sodium 138, potassium 4.8, chloride 103, bicarbonate 23, BUN 74, creatinine 5 .47, calcium 8.3. White count 11.6, hemoglobin 8.0, platelet count is 190. IMAGING: The patient's chest x-ray from 06/05/[address] of the abdomen and pelvis was r dominickiewed. ASSESSMENT AND PLAN: This is a 62-year-old female who presents with: 1. Nonoliguric acute kidney injury with previously normal baseline creatinine of 0.6 mg/dL. Etiolog y of acute kidney injury is multifactorial, likely secondary to acute tubular necrosis due to ischemi c hypoperfusion, shock, possible contrast nephrotoxicity, questionable intraabdominal hypertension fr om hematoma. The patient's renal function continues to decline as the patient remains in injury phas e of acute tubular necrosis. However, rate of decline appears to have declined. Additionally, urina ry output has improved. At this point, the patient has no overt symptoms of uremia, although mild na usea is present. There is no immediate need for renal placement therapy. Would therefore continue c urrent medical management. Continue supportive care, renally dose meds, avoid nephrotoxins. Continu e to monitor renal function, urinary output closely. If patient should develop overt uremic signs or symptoms, would consider initiating renal replacement therapy. 2. Hyperkalemia secondary to acute kidney injury. The patient's potassium levels have improved. Co ntinue to monitor closely. Continue low-potassium diet. 3. Anemia secondary to recent retroperitoneal bleed. The patient is status post blood transfusion. Currently on heparin drip. Monitor hemoglobin and hematocrit levels closely. 4. Mineral bone disorder. Monitor calcium and phosphorus levels closely. 5. Retroperitoneal bleed secondary to recent catheterization. The patient is status post stent plac ement in external iliac artery. Continue to monitor. 6. Coronary artery disease. Continue medical management. 7. Mechanical mitral valve. The patient on heparin drip. Monitor hemoglobin and hematocrit levels closely. 8. Systemic inflammatory response syndrome. Continue current antibiotic regimen and monitor. 9. Hypothyroidism. Continue Synthroid. 10. Dyslipidemia. Continue medical management. 11. History of asthma. 12. Hypothyroidism. 13. History of hypertension. Please note I spent over 30 minutes of critical care time with this patient. Dictated By: GWYN FABIAN DO NR/NTS Conf#: [id number] DID#: [id number] CC: CHRIS LAZAR MD;*EndCC*
[2018-06-06] MEDS: NYSTATIN SUSP 5 ML CUP PO SCH ×2 (18:11→21:00)
--- NOTE | 2018-06-06 20:09 | PN ---
DATE: 06/06/2018 SUBJECTIVE: The patient denies any chest pain, shortness of breath. Denies any abdominal pain, no r eported fever or chills. The patient remains in ICU. The patient was started on IV heparin drip due to prosthetic mitral valve. No reported obvious bleeding. PHYSICAL EXAMINATION: GENERAL: The patient is awake, alert. VITAL SIGNS: Blood pressure 135/62, pulse 102, respirations 21, O2 saturation 98% on 2 liters nasal cannula. HEENT: No eye discharge or redness. Oropharynx reveals thrush. NECK: No mass. CHEST: Diminished air entry at bases. CARDIOVASCULAR: S1, S2 normal, no murmur. Prosthetic valve click present. Currently in sinus rhyth m. ABDOMEN: Soft. Intra-abdominal drain present. EXTREMITIES: Trace edema. Pedal pulses palpable. Bilateral feet warm to touch. The patient has no resting pain in lower extremities. LABORATORY DATA: Done today, WBC 11.6, hemoglobin 7.9. Sodium 130, potassium 4.8, BUN 74, creatinin e 5.4, glucose 101. IMPRESSION: 1. Intra-abdominal bleed, currently has a drain. Pigtail catheter, continue to monitor H and H and transfuse as necessary. 2. Coronary artery disease, status post recent left heart catheterization with no significant obstru ctive coronary artery disease. 3. Mechanical mitral valve. The patient was started on heparin. 4. Recent repair of right common femoral artery and external iliac artery. 5. Urinary tract infection. Continue Rocephin. We will add Nepro with each meal and will continue Protonix for GI prophylaxis. 6. Acute kidney injury. The patient is being monitored closely by nephrology and may need hemodialy sis if renal functions continued to decline or if she develops significant hyperkalemia. Plan of car e discussed with patient's daughter and son-in-law. We will continue to follow. Dictated By: JULY STUBBS/SAVANNAH Conf#: [id number] DID#: [id number] CC: CHRIS LAZAR MD;*EndCC*
[2018-06-06] MEDS: LATANOPROST 0.005% 2.5 ML OPH BOTH EYES SCH (21:00)
[2018-06-06] MEDS: CEFTRIAXONE 1 GM/50 ML (PMX) 50 ML IVPB SCH (21:00)
[2018-06-06] MEDS: ATORVASTATIN 10 MG TAB PO SCH (21:00)
[2018-06-06] MEDS: SENNA/DOCUSATE NA (8.6MG/50MG) TAB PO SCH (21:00)
[2018-06-06] MEDS: morphine 2 MG INJ IV PRN (22:38)
[2018-06-07] VITALS (25 sets, daily range): BP systolic 120–146; BP diastolic 57–72; PULSE 93–105; RESP 20–38
[2018-06-07] MEDS: PANTOPRAZOLE (EC) 40 MG TAB PO SCH (06:09)
[2018-06-07] MEDS: LEVOTHYROXINE 50 MCG TAB PO SCH (06:10)
--- NOTE | 2018-06-07 08:10 | PN ---
DATE: 06/07/2018 SUBJECTIVE: The patient is stable, continues to have mild episodes of nausea. No other acute events noted. The patient's urinary output has been adequate, approximately 50 mL per hour. No other even ts noted. OBJECTIVE: VITAL SIGNS: Blood pressure is 129/61, respirations 18, pulse 96, temperature 98.2. I's and O's: 1.8 liters in and 2 liters out. HEENT: Head is normocephalic. NECK: Supple. HEART: Regular rate. LUNGS: Show diminished breath sounds at the base. ABDOMEN: Soft, nontender to palpation without rebound or guarding. EXTREMITIES: Negative for clubbing, cyanosis. Trace edema. DERMATOLOGIC: No rashes. MUSCULOSKELETAL: No joint effusion. NEUROLOGIC: No change in exam. MEDICATIONS: Reviewed. LABORATORY DATA: Shows a sodium 138, potassium 4.1, BUN 81, creatinine 5.04, phosphorus 6.7. White count 8.4, hemoglobin 8.2, platelet count is 147. IMAGING STUDIES: The patient's CT scan of abdomen and pelvis was reviewed, showed right lower quadra nt pigtail drain with a 15 x 10 cm hematoma with some dispersal otherwise stable, exceed the vascular contrast right lateral aspect of hematoma, tissue edema, increased mild dependent intra-abdominal he morrhagic free fluid, small bowel ileus versus low-grade obstruction, diverticulosis splenomegaly, ch olelithiasis, bilateral nephrogram, which may reflect acute tubular necrosis. MICROBIOLOGY: Reviewed. ASSESSMENT AND PLAN: 1. Nonoliguric acute kidney injury with previously normal baseline creatinine of 0.6 mg/dL. Etiolog y of acute kidney injury is multifactorial, likely secondary to acute tubular necrosis due to ischemi c hyperperfusion, shock, possible contrast nephrotoxicity, questionable intraabdominal hypertension f or hematoma. The patient's renal function has improved in the last 24 hours. Creatinine is slowly t rending down. Urinary output is increasing. At this point, we would continue current treatment plan , supportive care, renally dose all medicines, no immediate need for renal replacement therapy. 2. Hyperkalemia secondary to acute kidney injury, improved. Continue to monitor. Continue low-pota ssium diet. 3. Anemia secondary to retroperitoneal bleed. The patient is status post blood transfusion, monitor hemoglobin and hematocrit levels. Continue heparin. 4. Mineral bone disorder, monitor calcium and phosphorus levels. 5. Retroperitoneal bleed secondary to recent catheterization. The patient is status post stent plac ement and external iliac artery. Continue to monitor. 6. Coronary artery disease. Continue medical management. 7. Mechanical mitral valve. The patient is on heparin drip. Continue to monitor hemoglobin and hem atocrit levels. 8. Systemic inflammatory response syndrome. Continue current antibiotic regimen. 9. Hypothyroidism. Continue Synthroid. 10. Dyslipidemia. Continue statin therapy. 11. History of asthma. Continue medical management. 12. History of hypertension. Please note I spent over 30 minutes of critical care time with this patient. Dictated By: GWYN FABIAN DO NR/NTS Conf#: [id number] DID#: [id number] CC: JOAQUIN DE LEON MD; CHRIS LAZAR MD; JULY VALENTIN MD;*EndCC*
[2018-06-07] MEDS: NYSTATIN SUSP 5 ML CUP PO SCH ×4 (08:25→20:42)
[2018-06-07] MEDS: SENNA/DOCUSATE NA (8.6MG/50MG) TAB PO SCH ×2 (08:25→20:37)
[2018-06-07] MEDS: MOMETASONE 0.24 GM INHALER INH SCH (08:25)
--- NOTE | 2018-06-07 08:38 | CONS ---
Consult Date/Type/Reason Admit Date/Time May 28, 2018 at 17:52 Initial Consult Date Type of Consultation: Urology Requesting Provider: JULY VALENTIN MD Date/Time of Note DATE: 06/07/18 TIME: 08:34 Subjective Pt in ICU - stable fluid status - good urine output despite ARF - H/h trending - will monitor for now - back on heparin. ROS: No fever, no chills, no nausea, no vomiting, no diarrhea/constipation No recent weight changes No chest pain, no PND, no orthopnea - mild SOB, leg pain No dizziness, blurred vision No thirst, no heat or cold intolerance Objective Vitals Vital Signs Date Temp Pulse Resp B/P (MAP) Pulse Ox O2 O2 Flow FiO2 Time Delivery Rate 06/07/18 96 22 129/61 97 Nasal 2.0 05:00 (83) Cannula 06/07/18 98.2 04:00 Intake and Output 06/06/18 06/06/18 06/07/18 1515:00 23:00 07:00 IntakeIntake Total 771.5 ml 605.5 ml 374 ml OutputOutput Total 500 ml 1010 ml 590 ml BalanceBalance 271.5 ml -404.5 ml -216 ml Exam General: WN/WD/NAD, AOx 3 HEENT: Unicetric/atraumatic/EOMI (follows commands) NECK: JVD elevated, no thyromegaly Lymph: no lymphadenopathy HEART: regular with no S3, II/ systolic murmur at apex, mech click LUNGS: Coarse sounds ABD: soft, NT, ND, +BS : Intact Neuro: non focal SKIN: chronic changes EXT: trace edema Results/Medications Result Diagram: 06/07/18 0436 06/07/18 0436 Results 24 hrs Laboratory Tests Test 06/06/18 12:53 06/06/18 16:00 06/06/18 19:00 06/06/18 22:40 Hemoglobin 7.9 L 7.2 L Hematocrit 24.3 L 22.1 L Activated 45.0 H > 180.0 *H 50.9 H Partial Thrombopl ast Time Stool Occult NEGATIVE Blood Test 06/07/18 00:32 06/07/18 04:36 06/07/18 05:19 Activated 38.4 H Partial Thrombopl ast Time White Blood Count 8.4 # Red Blood Count 2.58 L Hemoglobin 8.2 L Hematocrit 24.5 L Mean Corpuscular 95.0 Volume Mean Corpuscular 31.8 Hemoglobin Mean Corpuscular 33.5 Hemoglobin Concen t Red Cell 15.0 H Distribution Width Platelet Count 147 # Mean Platelet 10.0 Volume Immature 6.600 H Granulocytes % Neutrophils % Lymphocytes % Monocytes % Eosinophils % Basophils % Nucleated Red 0.7 H Blood Cells % Immature 0.550 H Granulocytes # Neutrophils # Lymphocytes # Monocytes # Eosinophils # Basophils # Nucleated Red Blood Cells # Sodium Level 138 Potassium Level 4.1 Chloride Level 105 Carbon Dioxide 23 Level Anion Gap 10 Blood Urea 81 H Nitrogen Creatinine 5.04 H Est Glomerular 9 L Filtrat Rate mL/min Glucose Level 103 Calcium Level 7.6 L Phosphorus Level 6.7 H Magnesium Level 2.1 Lab Scanned BLOOD TRANSFUSIO Report N Home Meds Reported Medications Albuterol Sulfate* (Ventolin HFA*) 18 Gm Hfa.aer.ad, 2 PUFF INHALATION Q4H, #1 INHALER 05/26/18 Ergocalciferol (Vitamin D2) (VITAMIN D2) 50,000 Unit Capsule, 57209 UNIT PO [id number], CAP 05/23/18 Warfarin Sodium* (Coumadin*) 5 Mg Tablet, 5 MG PO Q TUES,THUR,SAT, TAB 05/23/18 Warfarin Sodium* (Coumadin*) 4 Mg Tablet, 4 MG PO Q MON,WED,FRI,SUN, TAB 05/23/18 Furosemide* (Furosemide*) 20 Mg Tablet, 20 MG PO DAILY, #60 TAB TAKE Q 2 DAYS 05/23/18 Simvastatin* (Zocor*) 20 Mg Tablet, 20 MG PO QHS, #30 TAB 05/23/18 Ranitidine Hcl* (Ranitidine Hcl*) 150 Mg Tablet, 150 MG PO HS, #30 TAB 05/23/18 Acetaminophen (Mapap) 500 Mg Capsule, 500 MG PO BID PRN for PAIN, CAP 05/23/18 Levothyroxine Sodium* (Levothyroxine Sodium*) 50 Mcg Tablet, 50 MCG PO BEFORE BREAKFAST, #30 TAB 05/23/18 Spironolactone* (Aldactone*) 25 Mg Tablet, 25 MG PO DAILY, #30 TAB 05/23/18 Beclomethasone Dipropionate (Qvar Redihaler (40 MCG)) 10.6 Gm Hfa.aeroba, 10.6 GM IH DAILY, INH 05/23/18 Amlodipine Besylate* (Norvasc*) 5 Mg Tablet, 5 MG PO BID, TAB 05/23/18 Losartan-Hydrochlorothiazide (Losartan-HCTZ) 100-25 Mg Tab, 1 TAB PO DAILY, TAB 05/23/18 Medications Current Medications Acetaminophen (Tylenol Tab) 650 mg Q4H PRN PO FEVER GREATER THAN 100.6 Last administered on 06/02/18 11:12; Admin Dose 650 MG; Start 05/27/18 at 11:30 Morphine Sulfate (morphine) 2 mg Q2H PRN IV FOR NON CARDIAC PAIN (4-10) Last administered on 06/06/18 22:38; Admin Dose 2 MG; Start 05/27/18 at 11:30 Al Hydrox/Mg Hydrox/Simethicone (Mag-Al Plus) 30 ml Q4H PRN PO GASTROINTESTINAL UPSET; Start 05/27/18 at 11:30 Ondansetron HCl (Zofran Inj) 4 mg Q4H PRN IV NAUSEA AND/OR VOMITING Last administered on 06/06/18 06:05; Admin Dose 4 MG; Start 05/27/18 at 11:30 Levothyroxine Sodium (Synthroid) 50 mcg BEFORE BREAKFAST PO Last administered on 06/07/18 06:10; Admin Dose 50 MCG; Start 05/30/18 at 07:00 Mometasone Furoate (Asmanex) 1 puff DAILY INH Last administered on 06/07/18 08:25; Admin Dose 1 PUFF; Start 05/29/18 at 11:00 Atorvastatin Calcium (Lipitor) 10 mg DAILY@21 PO Last administered on 06/06/18 21:00; Admin Dose 10 MG; Start 05/29/18 at 21:00 Latanoprost (Xalatan) 1 drop HS BOTH EYES Last administered on 06/06/18 21:00; Admin Dose 1 DROP; Start 06/01/18 at 21:00 Amlodipine Besylate (Norvasc) 5 mg DAILY PO ; Start 06/03/18 at 09:00; Status Hold Pantoprazole (Protonix Tab) 40 mg DAILY@06 PO Last administered on 06/07/18 06:09; Admin Dose 40 MG; Start 06/05/18 at 06:00 Heparin Sodium (Porcine) (Heparin (1000 Units/ml)) 3,800 unit PER PROTOCOL PRN IV aPTT<47 Last administered on 06/06/18at 13:18; Admin Dose 3,800 UNIT; Start 06/04/18 at 19:00 Heparin Sodium (Porcine) 250 ml @ 7.5 mls/hr PER PROTOCOL IV Last administered on 06/06/18at 13:25; Admin Dose 8.5 MLS/HR; Start 06/04/18 at 19:00 Ceftriaxone Sodium 50 ml @ 100 mls/hr Q24H IVPB Last administered on 06/06/18at 21:00; Admin Dose 100 MLS/HR; Start 06/04/18 at 20:30 Metoclopramide HCl (Reglan) 5 mg TID PRN IV Nausea; Start 06/06/18 at 11:00 Senna/Docusate Sodium (Senokot-S) 2 tab BID PO Last administered on 06/07/18at 08:25; Admin Dose 2 TAB; Start 06/06/18 at 21:00 Polyethylene Glycol (Miralax) 17 gm BID PRN PO CONSTIPATION; Start 06/06/18 at 14:00 Bisacodyl (Dulcolax Supp) 10 mg DAILY PRN [place] CONSTIPATION; Start 06/06/18 at 14:00 IV Flush (NS 10 ml) 10 ml PRN PRN IV IV PROTOCOL; Start 06/06/18 at 16:00 Nystatin (Nystatin Susp) 5 ml QID PO Last administered on 06/07/18at 08:25; Admin Dose 5 ML; Start 06/06/18 at 17:00 Assessment/Plan Hospital Course (Demo Recall) 1. CAD - s/p Left heart catheterization; Coronary angiography - no intervention done. NO CP now. 2. Retroperitoneal bleed: CT abdomen/pelvis showed moderate to large amount of hemoperitoneum. Today H/H with minimal drop - blood rx now- I had a lengthy discission with family - I think risk/benefit favors waiting another day to allow H/H stabilization - will check am Hg -if stable - back on heparin + coumadin load. 3. HTN - BP in good range now. Well Rx. 4. Hypothyroidism - TSH followed by primary team. 5. Asthma - - bronchodilators as needed 6. Hx mitral valve replacement with mechanical valve 1999 - back to anti-coag. 7. Mild SOB - spot lasix x 1 now. Assessment/Plan (Daily) 1.CAD s/p LHC with no sig obstructive cad - med rx now. 2.HTN - treated. 3.RP Bleed s/p transfusions now stable and tolerating heparin/coumadin loading. Then had recurrent bled overnight now s/p covered stent to [employer] GRADER/Ext iliac. Stable collection by abd CT today s/p placement of pigtail catheter - H/H borderline, con't close monitoring now. 4.HL 5.MVR-mechanical - on heparin. 6.Anemia-worseing, ? ongoing bleeding versus residual from intial bleed/L f emoral after repair of R WO[employer] GRADER/illiac - con't supportive Rx. 7.Hypothyroid 8. FOURNIER-negative Head CT 9. Fevers-with positive ua - on anti-Bx. 10. UTI 11.ARF-? Contrast induced/compression from hematoma 12. Coagulopathy-likely secondary to coumadin 14. LE weakness-? compression from hematoma and exacerbated by femoral compression after cath - con't pain Rx. 15. arterial insuff- LLE- s/p FILLING TECHNICIAN/thrombolysis 06/04 successfully - stable CECILIA MOCTEZUMA MD Jun 07, 2018 08:38
--- NOTE | 2018-06-07 12:21 | CONS ---
Assessment/Plan Assessment/Plan Hospital Course (Demo Recall) assessment/impression - severe sepsis due to UTI, improved - SIRS due to acute blood loss, improved - UTI due to E. coli - s/p R femoral artery bleeding with a pseudoaneurysm, s/p covered stent placement 6 x 100 mm right common femoral artery and right external iliac artery, abdominal aortogram, catheter introduction to the abdominal aorta, JOSÉ MIGUEL guidance into the central artery 06/02/2018 - s/p retroperitoneal bleed - s/p acute anemia requiring PRBC - s/p CT guided placement of drainage catheter into pelvic hematoma 06/05/2018 - Oliguric FORREST - s/p L heart catheterization on 05/27/2018 showing no significant obstructive CAD - CAD s/p CABG in in 1982 - H/o MVR with mechanical valve, in 1999 - cholelithiasis without e/o acute cholecystitis - Hypertension - Hyperlipidemia - Hypothyroidism - ssthma - s/p FOURNIER, resolved. CT head shows no acute findings recommendations: - pending: cultures of drained fluid from 06/05/2018 - end ceftriaxone (06/04/2018-) today. Pt previously received pip/tazo (06/02/2018-06/03/2018) management d/w Pr and her RN Meghan the critical care time I took to care for this Pt today was from 1115 to 1145 Consultation Date/Type/Reason Admit Date/Time May 28, 2018 at 17:52 Initial Consult Date 06/03/18 Type of Consult ID Reason for Consultation UTI Requesting Provider: JULY VALENTIN MD Date/Time of Note DATE: 06/07/18 TIME: 12:17 24 HR Interval Summary Constitutional: requiring O2; No febrile Detailed Summary Eyes: no complaints ENT: no complaints Respiratory: no complaints Cardiovascular: no complaints Gastrointestinal: no complaints Genitourinary: other (FC) Musculoskeletal: no complaints Skin: no complaints Neurologic: no complaints Exam/Review of Systems Exam Vitals Vital Signs Date Temp Pulse Resp B/P (MAP) Pulse Ox O2 O2 Flow FiO2 Time Delivery Rate 06/07/18 98 27 134/68 97 Nasal 2.0 10:30 (90) Cannula 06/07/18 97.6 08:00 Intake and Output 06/06/18 06/06/18 06/07/18 1515:00 23:00 07:00 IntakeIntake Total 771.5 ml 605.5 ml 374 ml OutputOutput Total 500 ml 1010 ml 670 ml BalanceBalance 271.5 ml -404.5 ml -296 ml Constitutional: frail Psych: no complaints Head: normocephalic, atraumatic Eyes: nl conjunctiva, nl lids ENMT: nl external ears & nose, nl nasal mucosa & septum Neck: supple, non-tender Respiratory: clear to auscultation, normal air movement Cardiovascular: edema, other (tachycardicand regular) Gastrointestinal: soft, non-tender Genitourinary - Female: other (+FC, +external draiange catheter) Musculoskeletal: No swelling Extremities: edema 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, nl mental status, lethargic Skin: nl turgor, ecchymosis Results Result Diagram: 06/07/18 0436 06/07/18 0436 Results 24hrs Laboratory Tests Test 06/06/18 12:53 06/06/18 16:00 06/06/18 19:00 06/06/18 22:40 Hemoglobin 7.9 L 7.2 L Hematocrit 24.3 L 22.1 L Activated 45.0 H > 180.0 *H 50.9 H Partial Thrombopl ast Time Stool Occult NEGATIVE Blood Test 06/07/18 00:32 06/07/18 04:36 06/07/18 05:19 06/07/18 07:15 Activated 38.4 H 62.0 H Partial Thrombopl ast Time White Blood Count 8.4 # Red Blood Count 2.58 L Hemoglobin 8.2 L Hematocrit 24.5 L Mean Corpuscular 95.0 Volume Mean Corpuscular 31.8 Hemoglobin Mean Corpuscular 33.5 Hemoglobin Concen t Red Cell 15.0 H Distribution Width Platelet Count 147 # Mean Platelet 10.0 Volume Immature 6.600 H Granulocytes % Neutrophils % Segmented 85 H Neutrophils % (Manual) Band Neutrophils 6 H % (Manual) Lymphocytes % Lymphocytes % 3 L (Manual) Monocytes % Monocytes % 1 (Manual) Eosinophils % Eosinophils % 2 (Manual) Basophils % Myelocytes % 3 H (Manual) Nucleated Red 1 H Blood Cells % Immature 0.550 H Granulocytes # Neutrophils # Neutrophils # 7.2 (Manual) Band Neutrophils 0.5 # Lymphocytes 0.2 L (Manual) Lymphocytes # Monocytes # Monocytes # 0.0 L (Manual) Eosinophils # Basophils # Myelocytes # 0.2 H Nucleated Red Blood Cells # Platelet Estimate NORMAL Giant Platelets 2 H Polychromasia 3+ Anisocytosis 1+ Microcytosis 1+ Sodium Level 138 Potassium Level 4.1 Chloride Level 105 Carbon Dioxide 23 Level Anion Gap 10 Blood Urea 81 H Nitrogen Creatinine 5.04 H Est Glomerular 9 L Filtrat Rate mL/min Glucose Level 103 Calcium Level 7.6 L Phosphorus Level 6.7 H Magnesium Level 2.1 Lab Scanned BLOOD TRANSFUSIO Report N Medications Medication Current Medications Acetaminophen (Tylenol Tab) 650 mg Q4H PRN PO FEVER GREATER THAN 100.6 Last administered on 06/02/18 11:12; Admin Dose 650 MG; Start 05/27/18 at 11:30 Morphine Sulfate (morphine) 2 mg Q2H PRN IV FOR NON CARDIAC PAIN (4-10) Last administered on 06/06/18 22:38; Admin Dose 2 MG; Start 05/27/18 at 11:30 Al Hydrox/Mg Hydrox/Simethicone (Mag-Al Plus) 30 ml Q4H PRN PO GASTROINTESTINAL UPSET; Start 05/27/18 at 11:30 Ondansetron HCl (Zofran Inj) 4 mg Q4H PRN IV NAUSEA AND/OR VOMITING Last administered on 06/06/18 06:05; Admin Dose 4 MG; Start 05/27/18 at 11:30 Levothyroxine Sodium (Synthroid) 50 mcg BEFORE BREAKFAST PO Last administered on 06/07/18 06:10; Admin Dose 50 MCG; Start 05/30/18 at 07:00 Mometasone Furoate (Asmanex) 1 puff DAILY INH Last administered on 06/07/18 08:25; Admin Dose 1 PUFF; Start 05/29/18 at 11:00 Atorvastatin Calcium (Lipitor) 10 mg DAILY@21 PO Last administered on 06/06/18 21:00; Admin Dose 10 MG; Start 05/29/18 at 21:00 Latanoprost (Xalatan) 1 drop HS BOTH EYES Last administered on 06/06/18 21:00; Admin Dose 1 DROP; Start 06/01/18 at 21:00 Amlodipine Besylate (Norvasc) 5 mg DAILY PO ; Start 06/03/18 at 09:00; Status Hold Pantoprazole (Protonix Tab) 40 mg DAILY@06 PO Last administered on 06/07/18 06:09; Admin Dose 40 MG; Start 06/05/18 at 06:00 Heparin Sodium (Porcine) (Heparin (1000 Units/ml)) 3,800 unit PER PROTOCOL PRN IV aPTT<47 Last administered on 06/06/18 13:18; Admin Dose 3,800 UNIT; Start 06/04/18 at 19:00 Heparin Sodium (Porcine) 250 ml @ 7.5 mls/hr PER PROTOCOL IV Last administered on 06/06/18 13:25; Admin Dose 8.5 MLS/HR; Start 06/04/18 at 19:00 Ceftriaxone Sodium 50 ml @ 100 mls/hr Q24H IVPB Last administered on 06/06/18 21:00; Admin Dose 100 MLS/HR; Start 06/04/18 at 20:30 Metoclopramide HCl (Reglan) 5 mg TID PRN IV Nausea; Start 06/06/18 at 11:00 Senna/Docusate Sodium (Senokot-S) 2 tab BID PO Last administered on 06/07/18 08:25; Admin Dose 2 TAB; Start 06/06/18 at 21:00 Polyethylene Glycol (Miralax) 17 gm BID PRN PO CONSTIPATION; Start 06/06/18 at 14:00 Bisacodyl (Dulcolax Supp) 10 mg DAILY PRN [place] CONSTIPATION; Start 06/06/18 at 14:00 IV Flush (NS 10 ml) 10 ml PRN PRN IV IV PROTOCOL; Start 06/06/18 at 16:00 Nystatin (Nystatin Susp) 5 ml QID PO Last administered on 06/07/18at 08:25; Admin Dose 5 ML; Start 06/06/18 at 17:00 SHARI CROWELL M.D. Jun 07, 2018 12:21
[2018-06-07] MEDS: CEFTRIAXONE 1 GM/50 ML (PMX) 50 ML IVPB SCH (19:36)
[2018-06-07] MEDS: morphine 2 MG INJ IV PRN (19:36)
[2018-06-07] MEDS: LATANOPROST 0.005% 2.5 ML OPH BOTH EYES SCH (20:42)
[2018-06-07] MEDS: ATORVASTATIN 10 MG TAB PO SCH (20:42)
[2018-06-08] VITALS (24 sets, daily range): BP systolic 111–135; BP diastolic 48–106; PULSE 75–110; RESP 21–38
[2018-06-08] MEDS: HEPARIN 25000 UNITS/250 ML 250 ML IV SCH (00:34)
[2018-06-08] MEDS: PANTOPRAZOLE (EC) 40 MG TAB PO SCH (06:02)
[2018-06-08] MEDS: LEVOTHYROXINE 50 MCG TAB PO SCH ×2 (06:02→09:04)
--- NOTE | 2018-06-08 08:34 | PN ---
DATE: 06/08/2018 SUBJECTIVE: The patient remains critically ill, but stable. The patient's urinary output has been i mproving approximately 50 to 60 mL per hour. The patient has no overt nausea, no vomiting, no shortn ess of breath. The patient is tolerating p.o. No other acute events noted. OBJECTIVE: VITAL SIGNS: Blood pressure is 128/60, respirations 23, pulse 99, temperature 98.7. I's and O's: Reviewed. HEENT: Head is normocephalic. NECK: Supple. HEART: Regular rate. LUNGS: Show diminished breath sounds at the base. ABDOMEN: Soft, nontender to palpation without rebound or guarding. EXTREMITIES: Negative for clubbing, cyanosis. Positive edema. DERMATOLOGIC: No rashes. MUSCULOSKELETAL: No joint effusion. NEUROLOGIC: No change in exam. MEDICATIONS: The patient's medications have been reviewed. LABORATORY DATA: Shows a sodium 136, potassium 3.7, chloride 100, bicarbonate 25, BUN 83, creatinine 0.94, calcium 8.0, phosphorus is 7.0. White count 11.7, hemoglobin 8.3, platelet count is 161. ASSESSMENT AND PLAN: 1. Nonoliguric acute kidney injury with previously normal baseline creatinine of 0.6 mg/dL. Etiolog y of acute kidney injury is secondary to acute tubular necrosis due to ischemic high perfusion, shock , possible contrast nephrotoxicity. The patient's renal function has stabilized and mildly improved as the patient may be entering maintenance phase of acute tubular necrosis. Urinary output has been slowly improving. The patient does have some mild uremic symptoms of nausea but otherwise is alert a nd oriented. At this point, we would continue current treatment plan. Continue supportive care, naima ally dose all medicines, and avoid nephrotoxins. No immediate need for renal replacement therapy. W e will monitor closely. 2. Hyperkalemia secondary to acute kidney injury, improved. Continue low-potassium diet. 3. Anemia secondary to retroperitoneal bleed. The patient is status post blood transfusion. Contin ue to monitor hemoglobin and hematocrit levels. 4. Mineral bone disorder, monitor calcium and phosphorus levels. 5. Retroperitoneal bleed secondary to recent catheterization. The patient is status post stent plac ement and external iliac artery. Continue to monitor. 6. Coronary artery disease. Continue medical management. 7. Mechanical heart valve. The patient is on heparin drip. Continue to monitor. 8. Sepsis secondary to urinary tract infection. Continue current antibiotic regimen. Follow up wit h infectious disease. 9. Hypothyroidism. Continue Synthroid. 10. Dyslipidemia. Continue statin therapy. 11. History of asthma. Continue medical management. 12. Hypertension. Continue current blood pressure regimen. 13. Intraabdominal hematoma secondary to bleed. The patient is status post pigtail placement, drain ing well. Continue to monitor. Please note I spent over 30 minutes of critical care time with this patient. Dictated By: GWYN FABIAN DO NR/NTS Conf#: [id number] DID#: [id number] CC: JOAQUIN DE LEON MD; JULY VALENTIN MD; CHRIS LAZAR MD;*EndCC*
[2018-06-08] MEDS: SENNA/DOCUSATE NA (8.6MG/50MG) TAB PO SCH ×2 (09:00→20:49)
[2018-06-08] MEDS: SEVELAMER CARBONATE 800 MG TABLET PO SCH ×3 (09:04→17:46)
[2018-06-08] MEDS: MOMETASONE 0.24 GM INHALER INH SCH (09:04)
[2018-06-08] MEDS: NYSTATIN SUSP 5 ML CUP PO SCH ×4 (09:04→20:49)
--- NOTE | 2018-06-08 10:41 | CONS ---
Assessment/Plan Assessment/Plan Hospital Course (Demo Recall) IMP: 1.cad s/p LHC with no sig obstructive cad 2.HTN 3.RP Bleed s/p transfusions now stable and tolerating heparin/coumadin loading. Then had recurrent bled overnight now s/p covered stent to SUPERVISOR LOADING/Ext iliac. Stable collection by abd CT 06/06 but still with pigtail catheter in place 4.HL 5.MVR-mechanical 6.anemia- s/p repair of R SUPERVISOR LOADING/illiac. Now stabilizing 7.Hypothyroid 8. FOURNIER-negative Head CT 9. Fevers-with positive ua 10. UTI 11.ARF-? Contrast induced/compression from hematoma- now improving with increased urine output and slowly decreasing guest specialist 12. Coagulopathy-likely secondary to coumadin 14. LE weakness-? compression from hematoma and exacerbated by femoral compression after cath 15. arterial insuff- LLE- s/p MANAGER OF RECRUITING/thrombolysis 06/04 successfully Recc: -ICU/ok for tele -holding norvasc still but with now stable BP -Continue statin -F/U urine cx -Contine abx's -ongoing ID f/u -Ongoing surgical f/u -F/U guest specialist/K closely. Renal now following with patient making increased urine. Holding off on HD. K stable. Would continue fluid/lasix challenge -Contact IR to reassess abd hematoma and need for ongoing pigtail catheter -Continue to follow serial Hgb which currently stable -To have PICC line placed for blood draw as having difficulty drawing blood Consultation Date/Type/Reason Admit Date/Time May 28, 2018 at 17:52 Initial Consult Date 05/28/18 Type of Consult Cardiology Reason for Consultation /cad Requesting Provider: JULY VALENTIN MD Date/Time of Note DATE: 06/08/18 TIME: 10:31 Exam/Review of Systems Vital Signs Vitals Vital Signs Date Temp Pulse Resp B/P (MAP) Pulse Ox O2 O2 Flow FiO2 Time Delivery Rate 06/08/18 95 08:00 06/08/18 23 128/60 98 Nasal 2.0 06:00 (82) Cannula 06/08/18 98.7 04:00 Intake and Output 06/07/18 06/07/18 06/08/18 1515:00 23:00 07:00 IntakeIntake Total 288 ml 329.0 ml 42.25 ml OutputOutput Total 750 ml 435 ml 509 ml BalanceBalance -462 ml -106.0 ml -466.75 ml Exam Exam Review of Systems: CONSTITUTIONAL: No fevers, chills. PULMONARY: No sob CARDIOVASCULAR: No chest pain/palpitations GASTROINTESTINAL: mild abd pain GENITOURINARY: No hematuria/dysuria. MUSCULOSKELETAL: No myagias/arthalgias. PSYCHIATRIC: The patient denies depression. NEUROLOGIC: Generalized weakness Constitutional: alert Psych: no complaints Head: normocephalic ENMT: mucosa pink and moist Neck: supple, jvd (9 cm wster) Respiratory: diminished breath sounds (at bases/B) Cardiovascular: regular rate and rhythm Gastrointestinal: soft, non-tender Musculoskeletal: muscle weakness (mild generalized) Extremities: pitting pedal edema (trace/B) Labs Result Diagram: 06/08/183 06/08/18 0423 Results 24hrs Laboratory Tests Test 06/07/18 15:00 06/07/18 22:09 06/08/18 04:23 White Blood Count 9.8 11.7 H Red Blood Count 2.65 L 2.64 L Hemoglobin 8.4 L 8.3 L Hematocrit 25.2 L 24.9 L Mean Corpuscular Volume 95.1 94.3 Mean Corpuscular Hemoglobin 31.7 31.4 Mean Corpuscular Hemoglobin Concent 33.3 33.3 Red Cell Distribution Width 15.4 H 15.5 H Platelet Count 144 161 Mean Platelet Volume 9.4 10.0 Immature Granulocytes % 6.800 H 8.400 H Neutrophils % Segmented Neutrophils % (Manual) 83 H Band Neutrophils % (Manual) 8 H Lymphocytes % Lymphocytes % (Manual) 4 L Monocytes % Monocytes % (Manual) 1 Eosinophils % Eosinophils % (Manual) 1 Basophils % Metamyelocytes % (manual) 1 H Myelocytes % (Manual) 2 H Nucleated Red Blood Cells % 0.5 H 0.3 H Immature Granulocytes # 0.660 H 0.980 H Neutrophils # Neutrophils # (Manual) 8.2 H Band Neutrophils # 0.7 H Lymphocytes (Manual) 0.3 L Lymphocytes # Monocytes # Monocytes # (Manual) 0.0 L Eosinophils # Basophils # Metamyelocytes # 0.0 Myelocytes # 0.1 H Nucleated Red Blood Cells # Platelet Estimate NORMAL Giant Platelets 1 H Polychromasia 1+ Anisocytosis 1+ Microcytosis 1+ Macrocytosis 1+ Prothrombin Time 16.5 H Prothrombin Time Ratio 1.3 INR International Normalized Ratio 1.32 Activated Partial Thromboplast Time 71.9 *H 46.1 H 59.8 H Sodium Level 136 Potassium Level 3.6 Chloride Level 100 Carbon Dioxide Level 25 Anion Gap 11 Blood Urea Nitrogen 83 H Creatinine 4.94 H Est Glomerular Filtrat Rate mL/min 9 L Glucose Level 114 Calcium Level 8.0 L Phosphorus Level 7.0 H Magnesium Level 1.9 Medications Medications Current Medications Acetaminophen (Tylenol Tab) 650 mg Q4H PRN PO FEVER GREATER THAN 100.6 Last administered on 06/02/18 11:12; Admin Dose 650 MG; Start 05/27/18 at 11:30 Morphine Sulfate (morphine) 2 mg Q2H PRN IV FOR NON CARDIAC PAIN (4-10) Last administered on 06/07/18 19:36; Admin Dose 2 MG; Start 05/27/18 at 11:30 Al Hydrox/Mg Hydrox/Simethicone (Mag-Al Plus) 30 ml Q4H PRN PO GASTROINTESTINAL UPSET; Start 05/27/18 at 11:30 Ondansetron HCl (Zofran Inj) 4 mg Q4H PRN IV NAUSEA AND/OR VOMITING Last administered on 06/06/18 06:05; Admin Dose 4 MG; Start 05/27/18 at 11:30 Levothyroxine Sodium (Synthroid) 50 mcg BEFORE BREAKFAST PO Last administered on 06/08/18 09:04; Admin Dose 50 MCG; Start 05/30/18 at 07:00 Mometasone Furoate (Asmanex) 1 puff DAILY INH Last administered on 06/08/18 09:04; Admin Dose 1 PUFF; Start 05/29/18 at 11:00 Atorvastatin Calcium (Lipitor) 10 mg DAILY@21 PO Last administered on 06/07/18 20:42; Admin Dose 10 MG; Start 05/29/18 at 21:00 Latanoprost (Xalatan) 1 drop HS BOTH EYES Last administered on 06/07/18 20:42; Admin Dose 1 DROP; Start 06/01/18 at 21:00 Amlodipine Besylate (Norvasc) 5 mg DAILY PO ; Start 06/03/18 at 09:00; Status Hold Pantoprazole (Protonix Tab) 40 mg DAILY@06 PO Last administered on 06/08/18 06:02; Admin Dose 40 MG; Start 06/05/18 at 06:00 Heparin Sodium (Porcine) (Heparin (1000 Units/ml)) 3,800 unit PER PROTOCOL PRN IV aPTT<47 Last administered on 06/06/18 13:18; Admin Dose 3,800 UNIT; Start 06/04/18 at 19:00 Heparin Sodium (Porcine) 250 ml @ 7.5 mls/hr PER PROTOCOL IV Last administered on 06/08/18 00:34; Admin Dose 6.5 MLS/HR; Start 06/04/18 at 19:00 Ceftriaxone Sodium 50 ml @ 100 mls/hr Q24H IVPB Last administered on 06/07/18 19:36; Admin Dose 100 MLS/HR; Start 06/04/18 at 20:30 Metoclopramide HCl (Reglan) 5 mg TID PRN IV Nausea; Start 06/06/18 at 11:00 Senna/Docusate Sodium (Senokot-S) 2 tab BID PO Last administered on 06/07/18 08:25; Admin Dose 2 TAB; Start 06/06/18 at 21:00 Polyethylene Glycol (Miralax) 17 gm BID PRN PO CONSTIPATION; Start 06/06/18 at 14:00 Bisacodyl (Dulcolax Supp) 10 mg DAILY PRN [place] CONSTIPATION; Start 06/06/18 at 14:00 IV Flush (NS 10 ml) 10 ml PRN PRN IV IV PROTOCOL; Start 06/06/18 at 16:00 Nystatin (Nystatin Susp) 5 ml QID PO Last administered on 06/08/18 09:04; Admin Dose 5 ML; Start 06/06/18 at 17:00 Sevelamer Carbonate (Renvela) 800 mg WITH MEALS PO Last administered on 06/08/18 09:04; Admin Dose 800 MG; Start 06/08/18 at 07:35 CHRIS LAZAR Jun 08, 2018 10:41
[2018-06-08] MEDS ORDERED: FUROSEMIDE 40 MG INJ IV ONE (11:00)
[2018-06-08] MEDS: HEPARIN 1000 UNITS/ML 10 ML INJ IV PRN (12:25)
--- NOTE | 2018-06-08 15:54 | CONS ---
Assessment/Plan Assessment/Plan Hospital Course (Demo Recall) assessment/impression - severe sepsis due to UTI, improved - SIRS due to acute blood loss, improved - UTI due to E. coli - s/p R femoral artery bleeding with a pseudoaneurysm, s/p covered stent placement 6 x 100 mm right common femoral artery and right external iliac artery, abdominal aortogram, catheter introduction to the abdominal aorta, JOSÉ MIGUEL guidance into the central artery 06/02/2018 - s/p retroperitoneal bleed - s/p acute anemia requiring PRBC - s/p CT guided placement of drainage catheter into pelvic hematoma 06/05/2018 - Oliguric FORREST - s/p L heart catheterization on 05/27/2018 showing no significant obstructive CAD - CAD s/p CABG in in 1982 - H/o MVR with mechanical valve, in 1999 - cholelithiasis without e/o acute cholecystitis - Hypertension - Hyperlipidemia - Hypothyroidism - ssthma - s/p FOURNIER, resolved. CT head shows no acute findings recommendations: - continue to monitor Pt off systemic antibiotic. Pt completed pip/tazo (06/02/2018-06/03/2018), ceftriaxone (06/04/2018-06/07/2018) management d/w Pt, her son, and her RN Meghan the critical care time I took to care for this Pt today was from 1430 to 1500 Consultation Date/Type/Reason Admit Date/Time May 28, 2018 at 17:52 Initial Consult Date 06/03/18 Type of Consult ID Requesting Provider: JULY VALENTIN MD Date/Time of Note DATE: 06/08/18 TIME: 15:45 24 HR Interval Summary Constitutional: no complaints Detailed Summary Eyes: no complaints ENT: no complaints Respiratory: no complaints Cardiovascular: no complaints Gastrointestinal: diarrhea (after taking laxatives), nausea Genitourinary: other (FC) Musculoskeletal: no complaints, other (did PT) Skin: no complaints Exam/Review of Systems Exam Vitals Vital Signs Date Temp Pulse Resp B/P (MAP) Pulse Ox O2 O2 Flow FiO2 Time Delivery Rate 06/08/18 2.0 15:38 06/08/18 90 22 133/59 93 Nasal 15:00 (83) Cannula 06/08/18 97.7 12:00 Intake and Output 06/07/18 06/07/18 06/08/18 1515:00 23:00 07:00 IntakeIntake Total 288 ml 329.0 ml 42.25 ml OutputOutput Total 750 ml 435 ml 569 ml BalanceBalance -462 ml -106.0 ml -526.75 ml Constitutional: frail Psych: no complaints, nl mood/affect Head: normocephalic, atraumatic Eyes: nl conjunctiva, nl lids, nl sclera ENMT: nl external ears & nose, nl nasal mucosa & septum, mucosa pink and moist Neck: supple Respiratory: clear to auscultation, normal air movement Cardiovascular: regular rate and rhythm, nl pulses Gastrointestinal: soft, non-tender, other (+external drainage catheter with sanguinous fluid); No distended, No tender Musculoskeletal: nl extremities to inspection Extremities: No edema Neurological: CRM MANAGER II-XII intact, nl mental status, nl speech, nl strength Skin: ecchymosis Results Result Diagram: 06/08/18 0423 06/08/18 0423 Results 24hrs Laboratory Tests Test 06/07/18 22:09 06/08/18 04:23 06/08/18 10:48 Activated Partial Thromboplast Time 46.1 H 59.8 H 45.5 H White Blood Count 11.7 H Red Blood Count 2.64 L Hemoglobin 8.3 L Hematocrit 24.9 L Mean Corpuscular Volume 94.3 Mean Corpuscular Hemoglobin 31.4 Mean Corpuscular Hemoglobin Concent 33.3 Red Cell Distribution Width 15.5 H Platelet Count 161 Mean Platelet Volume 10.0 Immature Granulocytes % 8.400 H Neutrophils % Lymphocytes % Monocytes % Eosinophils % Basophils % Nucleated Red Blood Cells % 0.3 H Immature Granulocytes # 0.980 H Neutrophils # Lymphocytes # Monocytes # Eosinophils # Basophils # Nucleated Red Blood Cells # Sodium Level 136 Potassium Level 3.6 Chloride Level 100 Carbon Dioxide Level 25 Anion Gap 11 Blood Urea Nitrogen 83 H Creatinine 4.94 H Est Glomerular Filtrat Rate mL/min 9 L Glucose Level 114 Calcium Level 8.0 L Phosphorus Level 7.0 H Magnesium Level 1.9 Medications Medication Current Medications Acetaminophen (Tylenol Tab) 650 mg Q4H PRN PO FEVER GREATER THAN 100.6 Last administered on 06/02/18at 11:12; Admin Dose 650 MG; Start 05/27/18 at 11:30 Morphine Sulfate (morphine) 2 mg Q2H PRN IV FOR NON CARDIAC PAIN (4-10) Last administered on 06/07/18 19:36; Admin Dose 2 MG; Start 05/27/18 at 11:30 Al Hydrox/Mg Hydrox/Simethicone (Mag-Al Plus) 30 ml Q4H PRN PO GASTROINTESTINAL UPSET; Start 05/27/18 at 11:30 Ondansetron HCl (Zofran Inj) 4 mg Q4H PRN IV NAUSEA AND/OR VOMITING Last administered on 06/06/18 06:05; Admin Dose 4 MG; Start 05/27/18 at 11:30 Levothyroxine Sodium (Synthroid) 50 mcg BEFORE BREAKFAST PO Last administered on 06/08/18 09:04; Admin Dose 50 MCG; Start 05/30/18 at 07:00 Mometasone Furoate (Asmanex) 1 puff DAILY INH Last administered on 06/08/18 09:04; Admin Dose 1 PUFF; Start 05/29/18 at 11:00 Atorvastatin Calcium (Lipitor) 10 mg DAILY@21 PO Last administered on 06/07/18 20:42; Admin Dose 10 MG; Start 05/29/18 at 21:00 Latanoprost (Xalatan) 1 drop HS BOTH EYES Last administered on 06/07/18 20:42; Admin Dose 1 DROP; Start 06/01/18 at 21:00 Amlodipine Besylate (Norvasc) 5 mg DAILY PO ; Start 06/03/18 at 09:00; Status Hold Pantoprazole (Protonix Tab) 40 mg DAILY@06 PO Last administered on 06/08/18 06:02; Admin Dose 40 MG; Start 06/05/18 at 06:00 Heparin Sodium (Porcine) (Heparin (1000 Units/ml)) 3,800 unit PER PROTOCOL PRN IV aPTT<47 Last administered on 06/08/18 12:25; Admin Dose 3,800 UNIT; Start 06/04/18 at 19:00 Heparin Sodium (Porcine) 250 ml @ 7.5 mls/hr PER PROTOCOL IV Last administered on 06/08/18 00:34; Admin Dose 6.5 MLS/HR; Start 06/04/18 at 19:00 Metoclopramide HCl (Reglan) 5 mg TID PRN IV Nausea; Start 06/06/18 at 11:00 Senna/Docusate Sodium (Senokot-S) 2 tab BID PO Last administered on 06/07/18at 08:25; Admin Dose 2 TAB; Start 06/06/18 at 21:00 Polyethylene Glycol (Miralax) 17 gm BID PRN PO CONSTIPATION; Start 06/06/18 at 14:00 Bisacodyl (Dulcolax Supp) 10 mg DAILY PRN [place] CONSTIPATION; Start 06/06/18 at 14:00 IV Flush (NS 10 ml) 10 ml PRN PRN IV IV PROTOCOL; Start 06/06/18 at 16:00 Nystatin (Nystatin Susp) 5 ml QID PO Last administered on 06/08/18at 12:22; Admin Dose 5 ML; Start 06/06/18 at 17:00 Sevelamer Carbonate (Renvela) 800 mg WITH MEALS PO Last administered on 06/08/18at 12:22; Admin Dose 800 MG; Start 06/08/18 at 07:35 SHARI CROWELL M.D. Jun 08, 2018 15:54
[2018-06-08] MEDS: ATORVASTATIN 10 MG TAB PO SCH (20:49)
[2018-06-08] MEDS: LATANOPROST 0.005% 2.5 ML OPH BOTH EYES SCH (20:53)
--- NOTE | 2018-06-08 23:43 | PN ---
DATE: 06/08/2018 SUBJECTIVE: The patient denies any chest pain, is overall feeling better. Abdominal pain has also i mproved. No reported fever or chills. The patient's urine output continues to improve. The patient , in fact, is saturating between 93 to 94% on room air. PHYSICAL EXAMINATION: GENERAL: The patient is awake and alert. VITAL SIGNS: Temperature 97.7, pulse 81, respirations 26, O2 saturation 93%. HEENT: No eye discharge or redness. Oropharynx improved thrush. NECK: No mass. CHEST: Fairly clear. CARDIOVASCULAR: Atrial fibrillation and prosthetic valve click present. ABDOMEN: Soft. EXTREMITIES: Bilateral lower extremity edema. NEUROLOGIC: The patient is awake, alert with no gross focal deficit, although the patient does have deconditioning. LABORATORY DATA: WBC 11.7, hemoglobin 8.3, platelet 161. The patient remains on heparin. Sodium 13 3, potassium 3.6, BUN 83, creatinine 4.9, down from 5. IMPRESSION AND PLAN: 1. Status post intra-abdominal bleed status post repair of right common femoral artery and external iliac artery. The patient still has a pigtail catheter which will be removed once cleared by vascula r surgery. 2. Mechanical mitral valve. Continue IV heparin. Recent catheterization did not reveal any signifi cant obstructive coronary artery disease. 3. Acute kidney injury, slowly improving. The patient is being followed by Dr. Laughlin from nephrol ogy standpoint. 4. Anemia due to acute blood loss. Hold off on further transfusion. 5. Slight leukocytosis today. The patient will be monitored off antibiotic as per ID. Plan of care discussed with patient's daughter. We will continue to monitor her in ICU. Dictated By: JULY VALENTIN MD AB/NTS Conf#: [id number] DID#: [id number] CC: JOAQUIN DE LEON MD; CHRIS LAZAR MD; JULY VALENTIN MD;*EndCC*
[2018-06-09] VITALS (23 sets, daily range): BP systolic 115–140; BP diastolic 49–65; PULSE 75–96; RESP 18–38
[2018-06-09] MEDS: PANTOPRAZOLE (EC) 40 MG TAB PO SCH (05:25)
[2018-06-09] MEDS ORDERED: POTASSIUM CHLORIDE (SR) 20 MEQ TAB PO STA (07:37)
--- NOTE | 2018-06-09 08:10 | PN ---
DATE: 06/09/2018 SUBJECTIVE: The patient remains stable, no acute events overnight. The patient's urinary output has been adequate. No nausea, no vomiting. OBJECTIVE: VITAL SIGNS: Blood pressure is 130/59, respirations 28, pulse 82, temperature 98.6. I's AND O'S: 900 in and 1.29 liters out. HEENT: Head is normocephalic. NECK: Supple. HEART: Regular rate. LUNGS: Show diminished breath sounds at the base. ABDOMEN: Soft, nontender to palpation without rebound or guarding. EXTREMITIES: Negative for clubbing, cyanosis. Trace edema. DERMATOLOGIC: No rashes. MUSCULOSKELETAL: No joint effusion. NEUROLOGIC: No change in exam. MEDICATIONS: Reviewed. LABORATORY DATA: Shows white count 11.8, hemoglobin 8.0, platelet count is 172, sodium 135, potassiu m 3.1, BUN 85, creatinine 4.41, calcium is 7.7, phosphorus is 6.5. MICROBIOLOGY: Reviewed. IMAGING STUDY: X-ray has been reviewed. ASSESSMENT AND PLAN: 1. Nonoliguric acute kidney injury with previously normal baseline creatinine of 0.6 mg/dL. Etiolog y of acute kidney injury is secondary to acute tubular necrosis due to ischemic hyperperfusion, shock , possible contrast-associated nephrotoxicity. The patient appears to be entering recovery phase of acute tubular necrosis as renal function has improved in the last 48 and 72 hours. Urinary output gomes s been improving. At this point, continue current treatment plans, supportive care, renally dose all medicines, no immediate need for renal placement therapy. 2. Hypokalemia. The patient will be given potassium chloride. Continue to monitor. 3. Anemia from retroperitoneal bleed. The patient is status post blood transfusion. Continue to mo nitor hemoglobin and hematocrit levels. 4. Mineral bone disorder, monitor calcium and phosphorus levels. Continue phosphate binders. 5. Coronary artery disease. Continue medical management. 6. Mechanical heart valve. The patient remains on heparin drip. Continue to monitor. 7. Sepsis secondary to urinary tract infection. Continue current antibiotic regimen. 8. Hypothyroidism. Continue Synthroid. 9. Dyslipidemia. Continue statin therapy. 10. Hypertension. Continue current blood pressure regimen. 11. Volume overload. Continue intermittent diuretic therapy. 12. Intraabdominal hematoma secondary to bleed. The patient's pigtail is in place, draining well. Please note I spent over 30 minutes of critical care time with this patient. Dictated By: GWYN FABIAN DO NR/SAVANNAH Conf#: [id number] DID#: [id number] CC: JOAQUIN DE LEON MD; JULY VALENTIN MD; CHRIS LAZAR MD;*EndCC*
[2018-06-09] MEDS: SEVELAMER CARBONATE 800 MG TABLET PO SCH ×3 (08:48→17:38)
[2018-06-09] MEDS: NYSTATIN SUSP 5 ML CUP PO SCH ×4 (08:48→21:17)
[2018-06-09] MEDS: SENNA/DOCUSATE NA (8.6MG/50MG) TAB PO SCH ×3 (08:48→21:00)
[2018-06-09] MEDS: MOMETASONE 0.24 GM INHALER INH SCH (08:49)
[2018-06-09] MEDS: LEVOTHYROXINE 50 MCG TAB PO SCH (08:49)
[2018-06-09] MEDS: HEPARIN 25000 UNITS/250 ML 250 ML IV SCH (11:05)
--- NOTE | 2018-06-09 13:02 | CONS ---
Assessment/Plan Assessment/Plan Hospital Course (Demo Recall) IMP: 1.cad s/p LHC with no sig obstructive cad 2.HTN 3.RP Bleed s/p transfusions now stable and tolerating heparin/coumadin loading. Then had recurrent bled overnight now s/p covered stent to FEATHER CUTTING MACHINE FEEDER/Ext iliac. Stable collection by abd CT 06/06 but still with pigtail catheter in place 4.HL 5.MVR-mechanical 6.anemia- s/p repair of R FEATHER CUTTING MACHINE FEEDER/illiac. Now stabilizing 7.Hypothyroid 8. FOURNIER-negative Head CT 9. Fevers-with positive ua 10. UTI 11.ARF-? Contrast induced/compression from hematoma- now improving with increased urine output and slowly decreasing laborer bituminous paving 12. Coagulopathy-likely secondary to coumadin 14. LE weakness-? compression from hematoma and exacerbated by femoral compression after cath 15. arterial insuff- LLE- s/p BUSINESS ANALYTICS INTERN/thrombolysis 06/04 successfully Recc: -ICU/ok for tele -holding norvasc still but with now stable BP -Continue statin -F/U urine cx -s/p course of abx's -ongoing ID f/u -Ongoing surgical f/u -F/U laborer bituminous paving/K closely. Renal now following with patient making increased urine. H olding off on HD. K stable. Would continue fluid/lasix challenge as necessary -IR to reassess abd hematoma and need for ongoing pigtail catheter with probabable removal today Consultation Date/Type/Reason Admit Date/Time May 28, 2018 at 17:52 Initial Consult Date 05/28/18 Type of Consult Cardiology Reason for Consultation /cad Requesting Provider: JULY VALENTIN MD Date/Time of Note DATE: 06/09/18 TIME: 12:58 Exam/Review of Systems Vital Signs Vitals Vital Signs Date Temp Pulse Resp B/P (MAP) Pulse Ox O2 O2 Flow FiO2 Time Delivery Rate 06/09/18 84 32 127/53 92 Nasal 11:00 (77) Cannula 06/09/18 97.8 08:00 06/09/18 2.0 05:44 Intake and Output 06/08/18 06/08/18 06/09/18 1515:00 23:00 07:00 IntakeIntake Total 468.5 ml 152.2 ml 298.8 ml OutputOutput Total 820 ml 610 ml 440 ml BalanceBalance -351.5 ml -457.8 ml -141.2 ml Exam Exam Review of Systems: CONSTITUTIONAL: No fevers, chills. PULMONARY: No sob CARDIOVASCULAR: No chest pain/palpitations GASTROINTESTINAL: No nausea/vomiting. GENITOURINARY: No hematuria/dysuria. MUSCULOSKELETAL: No myagias/arthalgias. PSYCHIATRIC: The patient denies depression. NEUROLOGIC: No weakness Constitutional: alert Psych: no complaints Head: normocephalic ENMT: mucosa pink and moist Neck: supple, jvd (9 cm water) Respiratory: diminished breath sounds Cardiovascular: regular rate and rhythm Gastrointestinal: soft, non-tender Musculoskeletal: muscle weakness (generalized mild) Extremities: pitting pedal edema (trace/B) Neurological: other (Mo focal deficits) Labs Result Diagram: 06/09/18 0818 06/09/18 0518 Results 24hrs Laboratory Tests Test 06/08/18 17:35 06/08/18 19:06 06/09/18 01:50 06/09/18 05:18 Prothrombin Time 15.1 H 14.4 14.3 Prothrombin Time 1.2 1.1 1.1 Ratio INR International 1.18 1.11 1.10 Normalized Ratio Activated > 180.0 *H 83.6 *H 59.8 H Partial Thromboplast Time White Blood Count 11.8 H Red Blood Count 2.56 L Hemoglobin 8.0 L Hematocrit 24.1 L Mean Corpuscular 94.1 Volume Mean Corpuscular 31.3 Hemoglobin Mean Corpuscular 33.2 Hemoglobin Concent Red Cell 15.5 H Distribution Width Platelet Count 172 Mean Platelet Volume 10.3 Immature 10.700 H Granulocytes % Neutrophils % Segmented 71 Neutrophils % (Manual) Band Neutrophils % 13 H (Manual) Lymphocytes % Lymphocytes % 6 L (Manual) Reactive Lymphocytes 3 H % (Manual) Monocytes % Monocytes % (Manual) 3 Eosinophils % Eosinophils % 2 (Manual) Basophils % Metamyelocytes % 1 H (manual) Myelocytes % 1 H (Manual) Nucleated Red Blood 0.0 Cells % Immature 1.260 H Granulocytes # Neutrophils # Neutrophils # 8.6 H (Manual) Band Neutrophils # 1.5 H Lymphocytes (Manual) 0.7 L Lymphocytes # Reactive Lymphocytes 0.3 H # Monocytes # Monocytes # (Manual) 0.3 Eosinophils # Basophils # Metamyelocytes # 0.1 H Myelocytes # 0.1 H Nucleated Red Blood Cells # Platelet Estimate NORMAL Polychromasia 2+ Sodium Level 135 Potassium Level 3.1 L Chloride Level 100 Carbon Dioxide Level 24 Anion Gap 11 Blood Urea Nitrogen 85 H Creatinine 4.41 H Est Glomerular 10 L Filtrat Rate mL/min Glucose Level 109 Calcium Level 7.7 L Phosphorus Level 6.5 H Magnesium Level 1.8 Test 06/09/18 08:18 White Blood Count 12.3 H Red Blood Count 2.74 L Hemoglobin 8.5 L Hematocrit 25.7 L Mean Corpuscular 93.8 Volume Mean Corpuscular 31.0 Hemoglobin Mean Corpuscular 33.1 Hemoglobin Concent Red Cell 15.8 H Distribution Width Platelet Count 178 Mean Platelet Volume 10.0 Immature 10.400 H Granulocytes % Neutrophils % 75.3 Segmented 82 H Neutrophils % (Manual) Band Neutrophils % 5 H (Manual) Lymphocytes % 6.4 L Lymphocytes % 4 L (Manual) Monocytes % 6.3 Monocytes % (Manual) 6 Eosinophils % 1.4 Eosinophils % 1 (Manual) Basophils % 0.2 Myelocytes % 1 H (Manual) Promyelocytes % 1 H (Manual) Nucleated Red Blood 1 H Cells % Immature 1.270 H Granulocytes # Neutrophils # 9.2 H Neutrophils # 10.2 H (Manual) Band Neutrophils # 0.6 Lymphocytes (Manual) 0.4 L Lymphocytes # 0.8 Monocytes # 0.8 Monocytes # (Manual) 0.7 Eosinophils # 0.2 Basophils # 0.0 Myelocytes # 0.1 H Promyelocytes # 0.1 H Nucleated Red Blood 0.0 Cells # Platelet Estimate NORMAL Polychromasia 1+ Hypochromasia 1+ Anisocytosis 1+ Microcytosis 1+ Macrocytosis 1+ Prothrombin Time 14.0 Prothrombin Time 1.1 Ratio INR International 1.07 Normalized Ratio Activated 66.8 H Partial Thromboplast Time Medications Medications Current Medications Acetaminophen (Tylenol Tab) 650 mg Q4H PRN PO FEVER GREATER THAN 100.6 Last administered on 06/02/18at 11:12; Admin Dose 650 MG; Start 05/27/18 at 11:30 Morphine Sulfate (morphine) 2 mg Q2H PRN IV FOR NON CARDIAC PAIN (4-10) Last administered on 06/07/18at 19:36; Admin Dose 2 MG; Start 05/27/18 at 11:30 Al Hydrox/Mg Hydrox/Simethicone (Mag-Al Plus) 30 ml Q4H PRN PO GASTROINTESTINAL UPSET; Start 05/27/18 at 11:30 Ondansetron HCl (Zofran Inj) 4 mg Q4H PRN IV NAUSEA AND/OR VOMITING Last administered on 06/06/18 06:05; Admin Dose 4 MG; Start 05/27/18 at 11:30 Levothyroxine Sodium (Synthroid) 50 mcg BEFORE BREAKFAST PO Last administered on 06/09/18 08:49; Admin Dose 50 MCG; Start 05/30/18 at 07:00 Mometasone Furoate (Asmanex) 1 puff DAILY INH Last administered on 06/09/18 08:49; Admin Dose 1 PUFF; Start 05/29/18 at 11:00 Atorvastatin Calcium (Lipitor) 10 mg DAILY@21 PO Last administered on 06/08/18 20:49; Admin Dose 10 MG; Start 05/29/18 at 21:00 Latanoprost (Xalatan) 1 drop HS BOTH EYES Last administered on 06/08/18 20:53; Admin Dose 1 DROP; Start 06/01/18 at 21:00 Amlodipine Besylate (Norvasc) 5 mg DAILY PO ; Start 06/03/18 at 09:00; Status Hold Pantoprazole (Protonix Tab) 40 mg DAILY@06 PO Last administered on 06/09/18 05:25; Admin Dose 40 MG; Start 06/05/18 at 06:00 Heparin Sodium (Porcine) (Heparin (1000 Units/ml)) 3,800 unit PER PROTOCOL PRN IV aPTT<47 Last administered on 06/08/18 12:25; Admin Dose 3,800 UNIT; Start 06/04/18 at 19:00 Heparin Sodium (Porcine) 250 ml @ 7.5 mls/hr PER PROTOCOL IV Last administered on 06/09/18 11:05; Admin Dose 8.4 MLS/HR; Start 06/04/18 at 19:00 Metoclopramide HCl (Reglan) 5 mg TID PRN IV Nausea; Start 06/06/18 at 11:00 Senna/Docusate Sodium (Senokot-S) 2 tab BID PO Last administered on 06/07/18 08:25; Admin Dose 2 TAB; Start 06/06/18 at 21:00 Polyethylene Glycol (Miralax) 17 gm BID PRN PO CONSTIPATION; Start 06/06/18 at 14:00 Bisacodyl (Dulcolax Supp) 10 mg DAILY PRN [place] CONSTIPATION; Start 06/06/18 at 14:00 IV Flush (NS 10 ml) 10 ml PRN PRN IV IV PROTOCOL; Start 06/06/18 at 16:00 Nystatin (Nystatin Susp) 5 ml QID PO Last administered on 06/09/18at 12:20; Admin Dose 5 ML; Start 06/06/18 at 17:00 Sevelamer Carbonate (Renvela) 800 mg WITH MEALS PO Last administered on 06/09/18at 12:20; Admin Dose 800 MG; Start 06/08/18 at 07:35 CHRIS LAZAR Jun 09, 2018 13:02
[2018-06-09] MEDS: ATORVASTATIN 10 MG TAB PO SCH (21:17)
--- NOTE | 2018-06-09 22:34 | CONS ---
Assessment/Plan Assessment/Plan Hospital Course (Demo Recall) assessment/impression - severe sepsis due to UTI, improved - SIRS due to acute blood loss, improved - UTI due to E. coli - s/p R femoral artery bleeding with a pseudoaneurysm, s/p covered stent placement 6 x 100 mm right common femoral artery and right external iliac artery, abdominal aortogram, catheter introduction to the abdominal aorta, JOSÉ MIGUEL guidance into the central artery 06/02/2018 - s/p retroperitoneal bleed - s/p acute anemia requiring PRBC - s/p CT guided placement of drainage catheter into pelvic hematoma 06/05/2018-->removed on 06/09/2018 - Oliguric FORREST - s/p L heart catheterization on 05/27/2018 showing no significant obstructive CAD - CAD s/p CABG in in 1982 - H/o MVR with mechanical valve, in 1999 - cholelithiasis without e/o acute cholecystitis - Hypertension - Hyperlipidemia - Hypothyroidism - ssthma - s/p FOURNIER, resolved. CT head shows no acute findings note: Pt completed pip/tazo (06/02/2018-06/03/2018), ceftriaxone (06/04/2018- 06/07/2018) recommendations: - continue to monitor Pt off systemic antibiotic. management d/w Pt, her RN Darrell the critical care time I took to care for this Pt today was from 0 to 0 Consultation Date/Type/Reason Admit Date/Time May 28, 2018 at 17:52 Initial Consult Date 06/03/18 Type of Consult ID Requesting Provider: JULY VALENTIN MD Date/Time of Note DATE: 06/09/18 TIME: 22:31 24 HR Interval Summary Free Text/Dictation the external drainage catheter was removed Subjective hx not possible: other (lethargic and limited) Constitutional: improved Detailed Summary Respiratory: No cough Cardiovascular: No chest pain Gastrointestinal: No pain Genitourinary: other (FC) Musculoskeletal: restricted range of motion Skin: other (ecchymoses) Exam/Review of Systems Exam Vitals Vital Signs Date Temp Pulse Resp B/P (MAP) Pulse Ox O2 O2 Flow FiO2 Time Delivery Rate 06/09/18 98.6 89 31 130/65 95 Room Air 20:00 (86) 06/09/18 2.0 20:00 Intake and Output 2/06/08/18 06/09/18 1414:59 22:59 06:59 IntakeIntake Total 466.0 ml 152.8 ml 307.2 ml OutputOutput Total 820 ml 585 ml 525 ml BalanceBalance -354.0 ml -432.2 ml -217.8 ml Constitutional: frail Psych: no complaints, nl mood/affect Head: normocephalic, atraumatic Eyes: nl conjunctiva, nl lids ENMT: nl external ears & nose, nl nasal mucosa & septum Neck: supple, other (not swollen) Respiratory: clear to auscultation, normal air movement Cardiovascular: regular rate and rhythm, nl pulses, edema (b/l UEs) Gastrointestinal: soft, non-tender; No distended Genitourinary - Female: other (FC) Musculoskeletal: No swelling Extremities: edema (b/l UEs) Neurological: lethargic Skin: nl turgor, ecchymosis Results Result Diagram: 06/09/18 0818 06/09/18 0518 Results 24hrs Laboratory Tests Test 06/09/18 01:50 06/09/18 05:18 06/09/18 08:18 06/09/18 15:11 Prothrombin Time 14.3 14.0 14.5 Prothrombin Time 1.1 1.1 1.1 Ratio INR International 1.10 1.07 1.12 Normalized Ratio Activated 59.8 H 66.8 H 66.8 H Partial Thromboplast Time White Blood Count 11.8 H 12.3 H Red Blood Count 2.56 L 2.74 L Hemoglobin 8.0 L 8.5 L Hematocrit 24.1 L 25.7 L Mean Corpuscular 94.1 93.8 Volume Mean Corpuscular 31.3 31.0 Hemoglobin Mean Corpuscular 33.2 33.1 Hemoglobin Concent Red Cell 15.5 H 15.8 H Distribution Width Platelet Count 172 178 Mean Platelet Volume 10.3 10.0 Immature 10.700 H 10.400 H Granulocytes % Neutrophils % 75.3 Segmented 71 82 H Neutrophils % (Manual) Band Neutrophils % 13 H 5 H (Manual) Lymphocytes % 6.4 L Lymphocytes % 6 L 4 L (Manual) Reactive Lymphocytes 3 H % (Manual) Monocytes % 6.3 Monocytes % (Manual) 3 6 Eosinophils % 1.4 Eosinophils % 2 1 (Manual) Basophils % 0.2 Metamyelocytes % 1 H (manual) Myelocytes % 1 H 1 H (Manual) Nucleated Red Blood 0.0 1 H Cells % Immature 1.260 H 1.270 H Granulocytes # Neutrophils # 9.2 H Neutrophils # 8.6 H 10.2 H (Manual) Band Neutrophils # 1.5 H 0.6 Lymphocytes (Manual) 0.7 L 0.4 L Lymphocytes # 0.8 Reactive Lymphocytes 0.3 H # Monocytes # 0.8 Monocytes # (Manual) 0.3 0.7 Eosinophils # 0.2 Basophils # 0.0 Metamyelocytes # 0.1 H Myelocytes # 0.1 H 0.1 H Nucleated Red Blood 0.0 Cells # Platelet Estimate NORMAL NORMAL Polychromasia 2+ 1+ Sodium Level 135 Potassium Level 3.1 L Chloride Level 100 Carbon Dioxide Level 24 Anion Gap 11 Blood Urea Nitrogen 85 H Creatinine 4.41 H Est Glomerular 10 L Filtrat Rate mL/min Glucose Level 109 Calcium Level 7.7 L Phosphorus Level 6.5 H Magnesium Level 1.8 Promyelocytes % 1 H (Manual) Promyelocytes # 0.1 H Hypochromasia 1+ Anisocytosis 1+ Microcytosis 1+ Macrocytosis 1+ Medications Medication Current Medications Acetaminophen (Tylenol Tab) 650 mg Q4H PRN PO FEVER GREATER THAN 100.6 Last administered on 06/02/18at 11:12; Admin Dose 650 MG; Start 05/27/18 at 11:30 Morphine Sulfate (morphine) 2 mg Q2H PRN IV FOR NON CARDIAC PAIN (4-10) Last administered on 06/07/18at 19:36; Admin Dose 2 MG; Start 05/27/18 at 11:30 Al Hydrox/Mg Hydrox/Simethicone (Mag-Al Plus) 30 ml Q4H PRN PO GASTROINTESTINAL UPSET; Start 05/27/18 at 11:30 Ondansetron HCl (Zofran Inj) 4 mg Q4H PRN IV NAUSEA AND/OR VOMITING Last administered on 06/06/18at 06:05; Admin Dose 4 MG; Start 05/27/18 at 11:30 Levothyroxine Sodium (Synthroid) 50 mcg BEFORE BREAKFAST PO Last administered on 06/09/18 08:49; Admin Dose 50 MCG; Start 05/30/18 at 07:00 Mometasone Furoate (Asmanex) 1 puff DAILY INH Last administered on 06/09/18 08:49; Admin Dose 1 PUFF; Start 05/29/18 at 11:00 Atorvastatin Calcium (Lipitor) 10 mg DAILY@21 PO Last administered on 06/09/18 21:17; Admin Dose 10 MG; Start 05/29/18 at 21:00 Latanoprost (Xalatan) 1 drop HS BOTH EYES Last administered on 06/08/18 20:53; Admin Dose 1 DROP; Start 06/01/18 at 21:00 Amlodipine Besylate (Norvasc) 5 mg DAILY PO ; Start 06/03/18 at 09:00; Status Hold Pantoprazole (Protonix Tab) 40 mg DAILY@06 PO Last administered on 06/09/18 05:25; Admin Dose 40 MG; Start 06/05/18 at 06:00 Heparin Sodium (Porcine) (Heparin (1000 Units/ml)) 3,800 unit PER PROTOCOL PRN IV aPTT<47 Last administered on 06/08/18 12:25; Admin Dose 3,800 UNIT; Start 06/04/18 at 19:00 Heparin Sodium (Porcine) 250 ml @ 7.5 mls/hr PER PROTOCOL IV Last administered on 06/09/18 11:05; Admin Dose 8.4 MLS/HR; Start 06/04/18 at 19:00 Metoclopramide HCl (Reglan) 5 mg TID PRN IV Nausea; Start 06/06/18 at 11:00 Senna/Docusate Sodium (Senokot-S) 2 tab BID PO Last administered on 06/07/18 08:25; Admin Dose 2 TAB; Start 06/06/18 at 21:00 Polyethylene Glycol (Miralax) 17 gm BID PRN PO CONSTIPATION; Start 06/06/18 at 14:00 Bisacodyl (Dulcolax Supp) 10 mg DAILY PRN [place] CONSTIPATION; Start 06/06/18 at 14:00 IV Flush (NS 10 ml) 10 ml PRN PRN IV IV PROTOCOL; Start 06/06/18 at 16:00 Nystatin (Nystatin Susp) 5 ml QID PO Last administered on 06/09/18 21:17; Admin Dose 5 ML; Start 06/06/18 at 17:00 Sevelamer Carbonate (Renvela) 800 mg WITH MEALS PO Last administered on 06/09/18at 17:38; Admin Dose 800 MG; Start 06/08/18 at 07:35 SHARI CROWELL M.D. Jun 09, 2018 22:34
[2018-06-10] VITALS (15 sets, daily range): BP systolic 120–138; BP diastolic 54–79; PULSE 83–95; RESP 18–34
--- NOTE | 2018-06-10 00:31 | PN ---
DATE: 06/09/2018 SUBJECTIVE: The patient is breathing comfortably on room air. Denies any chest pain. The patient's appetite seems fair. No active bleeding from any site. The patient has good urine output. No repo rted fever or chills. PHYSICAL EXAMINATION: GENERAL: Revealed the patient to be awake, alert. VITAL SIGNS: Temperature 98.6, pulse 89, respirations 20s to low 30s, blood pressure 130/65, O2 satu ration 95%. HEENT: No eye discharge or redness. Nose and ears are normal. NECK: No mass. CHEST: Diminished air entry at bases. CARDIOVASCULAR: Irregularly irregular rhythm. Prosthetic valve click present. ABDOMEN: Soft. EXTREMITIES: Edema. NEUROLOGIC: The patient is awake, alert, follows simple commands and does have generalized weakness due to deconditioning. LABORATORIES: Done this morning: WBC 12.2, hemoglobin 8.5, platelet 178. Sodium 135, potassium 3.1 , BUN 85, creatinine 4.4 down from 4.9. Phosphorus 6.5, calcium 7.7. IMPRESSION: 1. Mechanical mitral valve and chronic atrial fibrillation. Continue IV heparin. The patient did h ave removal of pigtail catheter today. I spoke with Dr. Moreno. Most likely, the patient will be s tarted on Coumadin tomorrow. 2. Status post intraabdominal bleed secondary to vascular injury status post stent placement. No ac franco issue at this time. The patient is being followed by Dr. Moreno from cardiac standpoint and Dr. Kilpatrick from medical standpoint. 3. Acute kidney injury, recovering. Dr. Laughlin has been following. 4. Anemia due to acute blood loss. Continue to monitor. No indication for transfusion. 5. Mild leukocytosis. ID is following. Continue to monitor off antibiotic. Bands have decreased f rom 13 to 5. We will do followup labs. Plan of care was discussed with the patient's daughter. If patient remains stable overnight, she azam l be transferred to telemetry floor. The patient was given dose of potassium due to hypokalemia and we will check followup labs. Dictated By: JULY VALENTIN MD AB/SAVANNAH Conf#: [id number] DID#: [id number] CC: CHRIS MORENO MD; JOAQUIN DE LOEN MD;*EndCC*
[2018-06-10] MEDS: LATANOPROST 0.005% 2.5 ML OPH BOTH EYES SCH ×2 (00:34→21:00)
[2018-06-10] MEDS: PANTOPRAZOLE (EC) 40 MG TAB PO SCH (06:06)
[2018-06-10] MEDS: LEVOTHYROXINE 50 MCG TAB PO SCH (06:07)
[2018-06-10] MEDS: NYSTATIN SUSP 5 ML CUP PO SCH ×4 (08:46→20:20)
[2018-06-10] MEDS: SEVELAMER CARBONATE 800 MG TABLET PO SCH ×3 (08:46→17:29)
[2018-06-10] MEDS: SENNA/DOCUSATE NA (8.6MG/50MG) TAB PO SCH ×2 (08:46→20:21)
--- NOTE | 2018-06-10 08:51 | PN ---
DATE: 06/10/2018 SUBJECTIVE: The patient is stable, was transferred from intensive care unit to telemetry. No acute events noted overnight. OBJECTIVE: VITAL SIGNS: Blood pressure is 127/63, respirations 28, pulse 78, temperature 97.9. HEENT: Head is normocephalic. NECK: Supple. HEART: Regular rate. LUNGS: Show diminished breath sounds at the base. ABDOMEN: Soft, nontender to palpation without rebound or guarding. EXTREMITIES: Negative for clubbing, cyanosis. Positive edema. DERMATOLOGIC: No rashes. MUSCULOSKELETAL: No joint effusions. NEUROLOGIC: No change in exam. MEDICATIONS: The patient's medications have been reviewed. LABORATORY DATA: Shows sodium 137, potassium 3.2, BUN 77, creatinine 3.82. Phosphorus is 5.2, calci um 8.1. White count 12.6, hemoglobin 8.7. ASSESSMENT AND PLAN: 1. Nonoliguric acute kidney injury with previous baseline creatinine of 0.6 mg/dL. Etiology of acut e kidney injury is secondary to acute tubular necrosis. The patient's renal function has been improv ing as the patient is in recovery phase of acute tubular necrosis. At this point, continue current t reatment plan, supportive care, renally dose all medicines. No need for renal replacement therapy at this time. 2. Hyperkalemia. Continue to monitor and replete. 3. Anemia due to retroperitoneal bleed. The patient is status post blood transfusion. Continue to monitor hemoglobin and hematocrit levels. 4. Mineral bone disorder, monitor calcium and phosphorus levels. 5. Coronary artery disease. Continue medical management. 6. Mechanical heart valve. Continue anticoagulation. Continue heparin drip. Follow up with cardio logy. 7. Sepsis secondary to urinary tract infection. Continue current antibiotic regimen. 8. Hypothyroidism. Continue Synthroid. 9. Dyslipidemia. Continue statin therapy. 10. Hypertension. Continue current blood pressure regimen. 11. Volume overload. Continue intermittent diuretic therapy. 12. Intraabdominal hematoma. The patient is status post pigtail placement. Continue to monitor and draining well. Dictated By: GWYN FABIAN DO NR/NTS Conf#: [id number] DID#: [id number] CC: CHRIS LAZAR MD; JOAQUIN DE LEON MD; JULY VALENTIN MD;*EndCC*
[2018-06-10] MEDS: MOMETASONE 0.24 GM INHALER INH SCH (10:28)
--- NOTE | 2018-06-10 12:52 | CONS ---
Assessment/Plan Assessment/Plan Hospital Course (Demo Recall) IMP: 1.cad s/p LHC with no sig obstructive cad 2.HTN 3.RP Bleed s/p transfusions now stable and tolerating heparin/coumadin loading. Then had recurrent bled overnight now s/p covered stent to [employer]/Ext iliac. Stable collection by abd CT 06/06 but still with pigtail catheter in place 4.HL 5.MVR-mechanical 6.anemia- s/p repair of R [employer]/illiac. Now stabilizing 7.Hypothyroid 8. FOURNIER-negative Head CT 9. Fevers-with positive ua 10. UTI 11.ARF-? Contrast induced/compression from hematoma- now improving with increased urine output and slowly decreasing mineral economist 12. Coagulopathy-likely secondary to coumadin 14. LE weakness-? compression from hematoma and exacerbated by femoral compression after cath 15. 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 Renal now following with patient making increased urine and slowly improving renal function. Holding off on HD. Give dose of albumin for third spaced fluids and lasix -s/p removal of abdominal catheter yesterday and thus will resume couamdin loading this evening Consultation Date/Type/Reason Admit Date/Time May 28, 2018 at 17:52 Initial Consult Date 05/28/18 Type of Consult Cardiology Reason for Consultation MVR Requesting Provider: JULY VALENTIN MD Date/Time of Note DATE: 06/10/18 TIME: 12:47 Exam/Review of Systems Vital Signs Vitals Vital Signs Date Temp Pulse Resp B/P (MAP) Pulse Ox O2 O2 Flow FiO2 Time Delivery Rate 06/10/18 84 12:00 06/10/18 99.2 30 130/67 98 Room Air 11:02 (88) 06/10/18 2.0 02:00 Intake and Output 06/09/18 06/09/18 06/10/18 1414:59 22:59 06:59 IntakeIntake Total 308.8 ml 1127.2 ml 208.8 ml OutputOutput Total 685 ml 760 ml 980 ml BalanceBalance -376.2 ml 367.2 ml -771.2 ml Exam Exam Review of Systems: CONSTITUTIONAL: No fevers, chills. PULMONARY: mild sob CARDIOVASCULAR: No chest pain/palpitations GASTROINTESTINAL: No nausea/vomiting. GENITOURINARY: No hematuria/dysuria. MUSCULOSKELETAL: No myagias/arthalgias. PSYCHIATRIC: The patient denies depression. NEUROLOGIC: No weakness Constitutional: alert Psych: no complaints ENMT: mucosa pink and moist Neck: supple, jvd (9-10 cm water) Respiratory: diminished breath sounds (at bases/B) Cardiovascular: regular rate and rhythm Gastrointestinal: soft, non-tender Musculoskeletal: muscle tone (normal) Extremities: pitting pedal edema (bilateral LE) Labs Result Diagram: 06/10/18 1203 06/10/18 0435 Results 24hrs Laboratory Tests Test 06/09/18 15:11 06/10/18 04:35 06/10/18 12:03 Prothrombin Time 14.5 13.7 13.3 Prothrombin Time Ratio 1.1 1.1 1.0 INR International Normalized Ratio 1.12 1.04 1.00 Activated Partial Thromboplast Time 66.8 H 68.6 H 46.4 H White Blood Count 12.6 H Red Blood Count 2.80 L Hemoglobin 8.7 L Hematocrit 26.0 L Mean Corpuscular Volume 92.9 Mean Corpuscular Hemoglobin 31.1 Mean Corpuscular Hemoglobin Concent 33.5 Red Cell Distribution Width 15.9 H Platelet Count 228 # 217 Mean Platelet Volume 10.1 Immature Granulocytes % 12.000 H Neutrophils % Segmented Neutrophils % (Manual) 72 Band Neutrophils % (Manual) 19 H Lymphocytes % Lymphocytes % (Manual) 5 L Monocytes % Monocytes % (Manual) 2 Eosinophils % Basophils % Metamyelocytes % (manual) 1 H Myelocytes % (Manual) 1 H Nucleated Red Blood Cells % 0.3 H Immature Granulocytes # 1.510 H Neutrophils # Neutrophils # (Manual) 9.4 H Band Neutrophils # 2.3 H Lymphocytes (Manual) 0.6 L Lymphocytes # Monocytes # Monocytes # (Manual) 0.2 L Eosinophils # Basophils # Metamyelocytes # 0.1 H Myelocytes # 0.1 H Nucleated Red Blood Cells # Platelet Estimate NORMAL Polychromasia 2+ Anisocytosis 1+ Ovalocytes 1+ Sodium Level 137 Potassium Level 3.2 L Chloride Level 99 Carbon Dioxide Level 27 Anion Gap 11 Blood Urea Nitrogen 77 H Creatinine 3.82 H Est Glomerular Filtrat Rate mL/min 12 L Glucose Level 111 Calcium Level 8.1 L Phosphorus Level 5.2 H Magnesium Level 1.7 Thrombin Time 41.5 H Medications Medications Current Medications Acetaminophen (Tylenol Tab) 650 mg Q4H PRN PO FEVER GREATER THAN 100.6 Last administered on 06/02/18 11:12; Admin Dose 650 MG; Start 05/27/18 at 11:30 Morphine Sulfate (morphine) 2 mg Q2H PRN IV FOR NON CARDIAC PAIN (4-10) Last administered on 06/07/18 19:36; Admin Dose 2 MG; Start 05/27/18 at 11:30 Al Hydrox/Mg Hydrox/Simethicone (Mag-Al Plus) 30 ml Q4H PRN PO GASTROINTESTINAL UPSET; Start 05/27/18 at 11:30 Ondansetron HCl (Zofran Inj) 4 mg Q4H PRN IV NAUSEA AND/OR VOMITING Last administered on 06/06/18 06:05; Admin Dose 4 MG; Start 05/27/18 at 11:30 Levothyroxine Sodium (Synthroid) 50 mcg BEFORE BREAKFAST PO Last administered on 06/10/18 06:07; Admin Dose 50 MCG; Start 05/30/18 at 07:00 Mometasone Furoate (Asmanex) 1 puff DAILY INH Last administered on 06/10/18 10:28; Admin Dose 1 PUFF; Start 05/29/18 at 11:00 Atorvastatin Calcium (Lipitor) 10 mg DAILY@21 PO Last administered on 06/09/18 21:17; Admin Dose 10 MG; Start 05/29/18 at 21:00 Latanoprost (Xalatan) 1 drop HS BOTH EYES Last administered on 06/10/18 00:34; Admin Dose 1 DROP; Start 06/01/18 at 21:00 Amlodipine Besylate (Norvasc) 5 mg DAILY PO ; Start 06/03/18 at 09:00; Status Hold Pantoprazole (Protonix Tab) 40 mg DAILY@06 PO Last administered on 06/10/18 06:06; Admin Dose 40 MG; Start 06/05/18 at 06:00 Heparin Sodium (Porcine) (Heparin (1000 Units/ml)) 3,800 unit PER PROTOCOL PRN IV aPTT<47 Last administered on 06/08/18 12:25; Admin Dose 3,800 UNIT; Start 06/04/18 at 19:00 Heparin Sodium (Porcine) 250 ml @ 7.5 mls/hr PER PROTOCOL IV Last administered on 06/09/18at 11:05; Admin Dose 8.4 MLS/HR; Start 06/04/18 at 19:00 Metoclopramide HCl (Reglan) 5 mg TID PRN IV Nausea; Start 06/06/18 at 11:00 Senna/Docusate Sodium (Senokot-S) 2 tab BID PO Last administered on 06/10/18at 08:46; Admin Dose 2 TAB; Start 06/06/18 at 21:00 Polyethylene Glycol (Miralax) 17 gm BID PRN PO CONSTIPATION; Start 06/06/18 at 14:00 Bisacodyl (Dulcolax Supp) 10 mg DAILY PRN [place] CONSTIPATION; Start 06/06/18 at 14 :00 IV Flush (NS 10 ml) 10 ml PRN PRN IV IV PROTOCOL; Start 06/06/18 at 16:00 Nystatin (Nystatin Susp) 5 ml QID PO Last administered on 06/10/18at 12:40; Admin Dose 5 ML; Start 06/06/18 at 17:00 Sevelamer Carbonate (Renvela) 800 mg WITH MEALS PO Last administered on 06/10/18at 12:40; Admin Dose 800 MG; Start 06/08/18 at 07:35 CHRIS LAZAR Jun 10, 2018 12:52
[2018-06-10] MEDS ORDERED: ALBUMIN HUMAN 25% 50 ML IV ONE (13:00)
--- NOTE | 2018-06-10 13:34 | RADRPT ---
Vent Rate: 94 bpm RR Interval: 636 msec PA Interval: 225 msec QRS Duration: 93 msec QT Interval: 360 msec QTC Interval: 451 msec P-R-T [place]: 57 - 72 - -14 degrees Sinus rhythm...normal P axis, V-rate 50- 99 Prolonged PA interval...PA >215, V-rate 91-120 Probable left atrial enlargement...P >50mS, <-0.10mV V1 Borderline T abnormalities, inferior leads...T flat/neg, II III aVF Electronically Signed By: Mauricio Nichols
--- NOTE | 2018-06-10 13:53 | RADRPT ---
Vent Rate: 78 bpm RR Interval: 0 msec ND Interval: 0 msec QRS Duration: 96 msec QT Interval: 430 msec QTC Interval: 490 msec P-R-T [place]: 0 - 86 - -40 degrees Atrial flutter with variable AV block T wave abnormality, consider inferior ischemia T wave abnormality, consider anterior ischemia Prolonged QT Abnormal ECG Electronically Signed By: Mauricio Nichols
--- NOTE | 2018-06-10 13:53 | RADRPT ---
Vent Rate: 95 bpm RR Interval: 0 msec [place] Interval: 0 msec QRS Duration: 94 msec QT Interval: 420 msec QTC Interval: 527 msec P-R-T [place]: 0 - 78 - -81 degrees Atrial fibrillation T wave abnormality, consider inferior ischemia T wave abnormality, consider anterolateral ischemia Prolonged QT Abnormal ECG Electronically Signed By: Mauricio Nichols
[2018-06-10] MEDS: HEPARIN 25000 UNITS/250 ML 250 ML IV SCH (15:54)
[2018-06-10] MEDS ORDERED: FUROSEMIDE 40 MG INJ IM ONE (16:00)
[2018-06-10] MEDS ORDERED: POTASSIUM CHLORIDE (SR) 20 MEQ TAB PO STA (16:56)
[2018-06-10] MEDS: WARFARIN 3 MG TAB PO SCH (18:12)
--- NOTE | 2018-06-10 18:32 | CONS ---
Assessment/Plan Assessment/Plan Hospital Course (Demo Recall) assessment/impression - severe sepsis due to UTI, improved - SIRS due to acute blood loss, improved - s/p UTI due to E. coli, resolved. 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, s/p covered stent placem ent 6 x 100 mm right common femoral artery and right external iliac artery, abdominal aortogram, catheter introduction to the abdominal aorta, JOSÉ MIGUEL guidance into the central artery 06/02/2018 - s/p retroperitoneal bleed - s/p acute anemia requiring PRBC - s/p CT guided placement of drainage catheter into pelvic hematoma 06/05/2018-->removed on 06/09/2018 - Oliguric FORREST - s/p L heart catheterization on 05/27/2018 showing no significant obstructive CAD - CAD s/p CABG in [place] in 1982 - H/o MVR with mechanical valve, in 1999 - cholelithiasis without e/o acute cholecystitis - Hypertension - Hyperlipidemia - Hypothyroidism - asthma - s/p FOURNIER, resolved. CT head shows no acute findings recommendations: - continue to monitor Pt off systemic antibiotic. management d/w Pt, her daughters Consultation Date/Type/Reason Admit Date/Time May 28, 2018 at 17:52 Initial Consult Date 06/03/18 Type of Consult ID Requesting Provider: JULY VALENTIN MD Date/Time of Note DATE: 06/10/18 TIME: 18:28 24 HR Interval Summary Constitutional: improved; No febrile Detailed Summary Eyes: no complaints ENT: no complaints Respiratory: no complaints Cardiovascular: no complaints Gastrointestinal: no complaints Genitourinary: other (FC) Musculoskeletal: no complaints Skin: no complaints Neurologic: no complaints Exam/Review of Systems Exam Vitals Vital Signs Date Temp Pulse Resp B/P (MAP) Pulse Ox O2 O2 Flow FiO2 Time Delivery Rate 06/10/18 87 16:00 06/10/18 98.1 32 120/79 97 Room Air 15:15 (93) 06/10/18 2.0 08:15 Intake and Output 06/09/18 06/09/18 06/10/18 1515:00 23:00 07:00 IntakeIntake Total 508.8 ml 927.2 ml 217.2 ml OutputOutput Total 685 ml 810 ml 830 ml BalanceBalance -176.2 ml 117.2 ml -612.8 ml Constitutional: frail Psych: no complaints, nl mood/affect Head: normocephalic, atraumatic Eyes: nl conjunctiva, nl lids ENMT: nl external ears & nose, nl nasal mucosa & septum Neck: supple, other (not swollen) Respiratory: clear to auscultation, normal air movement Cardiovascular: regular rate and rhythm, nl pulses; No edema Gastrointestinal: soft, non-tender Genitourinary - Female: other (FC, external catheter has been removed) Musculoskeletal: No swelling Extremities: No edema Neurological: CONTRACT RUNNER II-XII intact, nl mental status, nl speech Skin: nl turgor, ecchymosis Results Result Diagram: 06/10/18 1203 06/10/18 0435 Results 24hrs Laboratory Tests Test 06/10/18 04:35 06/10/18 12:03 White Blood Count 12.6 H Red Blood Count 2.80 L Hemoglobin 8.7 L Hematocrit 26.0 L Mean Corpuscular Volume 92.9 Mean Corpuscular Hemoglobin 31.1 Mean Corpuscular Hemoglobin Concent 33.5 Red Cell Distribution Width 15.9 H Platelet Count 228 # 217 Mean Platelet Volume 10.1 Immature Granulocytes % 12.000 H Neutrophils % Segmented Neutrophils % (Manual) 72 Band Neutrophils % (Manual) 19 H Lymphocytes % Lymphocytes % (Manual) 5 L Monocytes % Monocytes % (Manual) 2 Eosinophils % Basophils % Metamyelocytes % (manual) 1 H Myelocytes % (Manual) 1 H Nucleated Red Blood Cells % 0.3 H Immature Granulocytes # 1.510 H Neutrophils # Neutrophils # (Manual) 9.4 H Band Neutrophils # 2.3 H Lymphocytes (Manual) 0.6 L Lymphocytes # Monocytes # Monocytes # (Manual) 0.2 L Eosinophils # Basophils # Metamyelocytes # 0.1 H Myelocytes # 0.1 H Nucleated Red Blood Cells # Platelet Estimate NORMAL Polychromasia 2+ Anisocytosis 1+ Ovalocytes 1+ Prothrombin Time 13.7 13.3 Prothrombin Time Ratio 1.1 1.0 INR International Normalized Ratio 1.04 1.00 Activated Partial Thromboplast Time 68.6 H 46.4 H Sodium Level 137 Potassium Level 3.2 L Chloride Level 99 Carbon Dioxide Level 27 Anion Gap 11 Blood Urea Nitrogen 77 H Creatinine 3.82 H Est Glomerular Filtrat Rate mL/min 12 L Glucose Level 111 Calcium Level 8.1 L Phosphorus Level 5.2 H Magnesium Level 1.7 Thrombin Time 41.5 H Medications Medication Current Medications Acetaminophen (Tylenol Tab) 650 mg Q4H PRN PO FEVER GREATER THAN 100.6 Last administered on 06/02/18 11:12; Admin Dose 650 MG; Start 05/27/18 at 11:30 Morphine Sulfate (morphine) 2 mg Q2H PRN IV FOR NON CARDIAC PAIN (4-10) Last administered on 06/07/18 19:36; Admin Dose 2 MG; Start 05/27/18 at 11:30 Al Hydrox/Mg Hydrox/Simethicone (Mag-Al Plus) 30 ml Q4H PRN PO GASTROINTESTINAL UPSET; Start 05/27/18 at 11:30 Ondansetron HCl (Zofran Inj) 4 mg Q4H PRN IV NAUSEA AND/OR VOMITING Last administered on 06/06/18 06:05; Admin Dose 4 MG; Start 05/27/18 at 11:30 Levothyroxine Sodium (Synthroid) 50 mcg BEFORE BREAKFAST PO Last administered on 06/10/18 06:07; Admin Dose 50 MCG; Start 05/30/18 at 07:00 Mometasone Furoate (Asmanex) 1 puff DAILY INH Last administered on 06/10/18 10:28; Admin Dose 1 PUFF; Start 05/29/18 at 11:00 Atorvastatin Calcium (Lipitor) 10 mg DAILY@21 PO Last administered on 06/09/18 21:17; Admin Dose 10 MG; Start 05/29/18 at 21:00 Latanoprost (Xalatan) 1 drop HS BOTH EYES Last administered on 06/10/18 00:34; Admin Dose 1 DROP; Start 06/01/18 at 21:00 Amlodipine Besylate (Norvasc) 5 mg DAILY PO ; Start 06/03/18 at 09:00; Status Hold Pantoprazole (Protonix Tab) 40 mg DAILY@06 PO Last administered on 06/10/18 06:06; Admin Dose 40 MG; Start 06/05/18 at 06:00 Heparin Sodium (Porcine) (Heparin (1000 Units/ml)) 3,800 unit PER PROTOCOL PRN IV aPTT<47 Last administered on 06/08/18 12:25; Admin Dose 3,800 UNIT; Start 06/04/18 at 19:00 Heparin Sodium (Porcine) 250 ml @ 7.5 mls/hr PER PROTOCOL IV Last administered on 06/10/18 15:54; Admin Dose 9.5 MLS/HR; Start 06/04/18 at 19:00 Metoclopramide HCl (Reglan) 5 mg TID PRN IV Nausea; Start 06/06/18 at 11:00 Senna/Docusate Sodium (Senokot-S) 2 tab BID PO Last administered on 06/10/18 08:46; Admin Dose 2 TAB; Start 06/06/18 at 21:00 Polyethylene Glycol (Miralax) 17 gm BID PRN PO CONSTIPATION; Start 06/06/18 at 14:00 Bisacodyl (Dulcolax Supp) [address] CONSTIPATION; Start 06/06/18 at 14:00 IV Flush (NS 10 ml) 10 ml PRN PRN IV IV PROTOCOL; Start 06/06/18 at 16:00 Nystatin (Nystatin Susp) 5 ml QID PO Last administered on 06/10/18 17:29; Admin Dose 5 ML; Start 06/06/18 at 17:00 Sevelamer Carbonate (Renvela) 800 mg WITH MEALS PO Last administered on 06/10/18 17:29; Admin Dose 800 MG; Start 06/08/18 at 07:35 Warfarin Sodium (Coumadin) 3 mg DAILY@17 PO Last administered on 06/10/18 18:12; Admin Dose 3 MG; Start 06/10/18 at 17:00 SHARI CROWELL M.D. Jun 10, 2018 18:32
--- NOTE | 2018-06-10 18:51 | PN ---
DATE: 06/10/2018 SUBJECTIVE: The patient was transferred out of ICU and will be started on Coumadin today. Denies an y chest pain. The patient does have shortness of breath on exertion and has lower extremity edema. The patient just received 1 dose of IV Lasix. Potassium this morning was 3.2. I will give 40 mEq p. o. potassium. No obvious bleeding from any site. The patient had a few soft bowel movement today wi thout any melena. No reported history chest pain. PHYSICAL EXAMINATION: GENERAL: Revealed the patient to be awake, alert. VITAL SIGNS: Temperature 98.1, pulse 85, respiration 28 to 32, blood pressure 120/79, O2 saturation 97% on room air. NECK: No mass. CHEST: Diminished air entry at bases. No use of accessory muscles. CARDIOVASCULAR: Irregular rhythm. Prosthetic valve click present. ABDOMEN: Soft, nontender. EXTREMITIES: Edematous. NEUROLOGIC: The patient is awake, alert. LABORATORY DATA: Potassium 3.2, BUN 78 down from 85, creatinine 3.8 down from 4.4. PLAN: We will replace potassium and we will do followup chest x-ray tomorrow. We will also request a physical therapy twice a day. The patient has significant deconditioning due to prolonged ICU stay . The patient's acute kidney injury continues to improve. Plan of care was discussed with the patie nt's family. Dictated By: JULY STUBBS/SAVANNAH Conf#: [id number] DID#: [id number] CC: JOAQUIN DE LEON MD; CHRIS LAZAR MD;*[facility]*
[2018-06-10] MEDS: ATORVASTATIN 10 MG TAB PO SCH (20:21)
[2018-06-11] VITALS (20 sets, daily range): BP systolic 113–154; BP diastolic 51–91; PULSE 81–98; RESP 16–43
[2018-06-11] MEDS: ACETAMINOPHEN 325 MG TAB PO PRN (01:38)
[2018-06-11] MEDS: HEPARIN 25000 UNITS/250 ML 250 ML IV SCH ×2 (03:35→09:59)
[2018-06-11] MEDS: PANTOPRAZOLE (EC) 40 MG TAB PO SCH (05:27)
[2018-06-11] MEDS: LEVOTHYROXINE 50 MCG TAB PO SCH (05:31)
--- NOTE | 2018-06-11 08:25 | PN ---
Date/Time of Note Date/Time of Note DATE: 06/11/18 TIME: 08:24 Assessment/Plan VTE Prophylaxis Risk score (from Ns)>0 risk: 2 SCD applied (from Ns): No SCD contraindicated: other Pharmacological prophylaxis: other Lines/Catheters IV C[facility]ter Type [facility]from [facility] PICC Line Central line still needed: Yes Urinary Cath still in place: Yes Reason Cath still needed: urinary retention Assessment/Plan Hospital Course renal follow up SUBJECTIVE: The patient is stable, was transferred from intensive care unit to telemetry. No acute events noted overnight. d/w Dr Laughlin ARF is improving OBJECTIVE: HEENT: Head is normocephalic. NECK: Supple. HEART: Regular rate. LUNGS: Show diminished breath sounds at the base. ABDOMEN: Soft, nontender to palpation without rebound or guarding. EXTREMITIES: Negative for clubbing, cyanosis. Positive edema. DERMATOLOGIC: No rashes. MUSCULOSKELETAL: No joint effusions. NEUROLOGIC: No change in exam. MEDICATIONS: The patient's medications have been reviewed. ASSESSMENT AND PLAN: 1. Nonoliguric acute kidney injury with previous baseline creatinine of 0.6 mg/dL. Etiology of acute kidney injury is secondary to acute tubular necrosis. The patient's renal function has been improving as the patient is in recovery phase of acute tubular necrosis. At this point, continue current treatment plan, supportive care, renally dose all medicines. No need for renal repla cement therapy at this time. 2. Hyperkalemia. Continue to monitor and replete. 3. Anemia due to retroperitoneal bleed. The patient is status post blood transfusion. Continue to monitor hemoglobin and hematocrit levels. 4. Mineral bone disorder, monitor calcium and phosphorus levels. 5. Coronary artery disease. Continue medical management. 6. Mechanical heart valve. Continue anticoagulation. Continue heparin drip. Follow up with cardiology. 7. Sepsis secondary to urinary tract infection. Continue current antibiotic regimen. 8. Hypothyroidism. Continue Synthroid. 9. Dyslipidemia. Continue statin therapy. 10. Hypertension. Continue current blood pressure regimen. 11. Volume overload. Continue intermittent diuretic therapy. 12. Intraabdominal hematoma. The patient is status post pigtail placement. Continue to monitor and draining well. Result Diagram: 06/10/18 1203 06/10/18 0435 Results 24hrs Laboratory Tests Test 06/10/18 12:03 06/10/18 18:13 06/10/18 20:53 06/10/18 23:10 Platelet Count 217 Prothrombin Time 13.3 Prothrombin Time Ratio 1.0 INR International 1.00 Normalized Ratio Activated 46.4 H > 180.0 *H > 180.0 *H 122.1 *H Partial Thromboplast Time Thrombin Time 41.5 H Test 06/11/18 02:08 06/11/18 07:48 Activated 33.2 Partial Thromboplast Time White Blood Count Pending Red Blood Count Pending Hemoglobin Pending Hematocrit Pending Mean Corpuscular Volume Pending Mean Corpuscular Pending Hemoglobin Mean Corpuscular Pending Hemoglobin Concent Red Cell Distribution Pending Width Platelet Count Pending Mean Platelet Volume Pending Exam/Review of Systems Exam Vitals Vital Signs Date Temp Pulse Resp B/P (MAP) Pulse Ox O2 O2 Flow FiO2 Time Delivery Rate 06/11/18 97.7 93 28 125/60 96 Room Air 07:27 (81) 06/11/18 2.0 03:08 Intake and Output 06/10/18 06/10/18 06/11/18 1515:00 23:00 07:00 IntakeIntake Total 960 ml 622 ml OutputOutput Total 1200 ml 1100 ml BalanceBalance -240 ml -478 ml Results Results 24hrs Laboratory Tests Test 06/10/18 12:03 06/10/18 18:13 06/10/18 20:53 06/10/18 23:10 Platelet Count 217 Prothrombin Time 13.3 Prothrombin Time Ratio 1.0 INR International 1.00 Normalized Ratio Activated 46.4 H > 180.0 *H > 180.0 *H 122.1 *H Partial Thromboplast Time Thrombin Time 41.5 H Test 06/11/18 02:08 06/11/18 07:48 Activated 33.2 Partial Thromboplast Time White Blood Count Pending Red Blood Count Pending Hemoglobin Pending Hematocrit Pending Mean Corpuscular Volume Pending Mean Corpuscular Pending Hemoglobin Mean Corpuscular Pending Hemoglobin Concent Red Cell Distribution Pending Width Platelet Count Pending Mean Platelet Volume Pending Medications Medication Current Medications Acetaminophen (Tylenol Tab) 650 mg Q4H PRN PO FEVER GREATER THAN 100.6 Last administered on 06/11/18at 01:38; Admin Dose 650 MG; Start 05/27/18 at 11:30 Morphine Sulfate (morphine) 2 mg Q2H PRN IV FOR NON CARDIAC PAIN (4-10) Last a dministered on 06/07/18 19:36; Admin Dose 2 MG; Start 05/27/18 at 11:30 Al Hydrox/Mg Hydrox/Simethicone (Mag-Al Plus) 30 ml Q4H PRN PO GASTROINTESTINAL UPSET; Start 05/27/18 at 11:30 Ondansetron HCl (Zofran Inj) 4 mg Q4H PRN IV NAUSEA AND/OR VOMITING Last administered on 06/06/18 06:05; Admin Dose 4 MG; Start 05/27/18 at 11:30 Levothyroxine Sodium (Synthroid) 50 mcg BEFORE BREAKFAST PO Last administered on 06/11/18 05:31; Admin Dose 50 MCG; Start 05/30/18 at 07:00 Mometasone Furoate (Asmanex) 1 puff DAILY INH Last administered on 06/10/18 10:28; Admin Dose 1 PUFF; Start 05/29/18 at 11:00 Atorvastatin Calcium (Lipitor) 10 mg DAILY@21 PO Last administered on 06/10/18 20:21; Admin Dose 10 MG; Start 05/29/18 at 21:00 Latanoprost (Xalatan) 1 drop HS BOTH EYES Last administered on 06/10/18 00:34; Admin Dose 1 DROP; Start 06/01/18 at 21:00 Amlodipine Besylate (Norvasc) 5 mg DAILY PO ; Start 06/03/18 at 09:00; Status Hold Pantoprazole (Protonix Tab) 40 mg DAILY@06 PO Last administered on 06/11/18 05:27; Admin Dose 40 MG; Start 06/05/18 at 06:00 Heparin Sodium (Porcine) (Heparin (1000 Units/ml)) 3,800 unit PER PROTOCOL PRN IV aPTT<47 Last administered on 06/08/18 12:25; Admin Dose 3,800 UNIT; Start 06/04/18 at 19:00 Heparin Sodium (Porcine) 250 ml @ 7.5 mls/hr PER PROTOCOL IV Last administered on 06/11/18 03:35; Admin Dose 7 MLS/HR; Start 06/04/18 at 19:00 Metoclopramide HCl (Reglan) 5 mg TID PRN IV Nausea; Start 06/06/18 at 11:00 Senna/Docusate Sodium (Senokot-S) 2 tab BID PO Last administered on 06/10/18at 20:21; Admin Dose 2 TAB; Start 06/06/18 at 21:00 Polyethylene Glycol (Miralax) 17 gm BID PRN PO CONSTIPATION; Start 06/06/18 at 14:00 Bisacodyl (Dulcolax Supp) 10 mg DAILY PRN [place] CONSTIPATION; Start 06/06/18 at 14:00 IV Flush (NS 10 ml) 10 ml PRN PRN IV IV PROTOCOL; Start 06/06/18 at 16:00 Nystatin (Nystatin Susp) 5 ml QID PO Last administered on 06/10/18at 20:20; Admin Dose 5 ML; Start 06/06/18 at 17:00 Sevelamer Carbonate (Renvela) 800 mg WITH MEALS PO Last administered on 06/10/18at 17:29; Admin Dose 800 MG; Start 06/08/18 at 07:35 Warfarin Sodium (Coumadin) 3 mg DAILY@17 PO Last administered on 06/10/18at 18:12; Admin Dose 3 MG; Start 06/10/18 at 17:00 NURIA BAUTISTA DO Jun 11, 2018 08:25
[2018-06-11] MEDS: SEVELAMER CARBONATE 800 MG TABLET PO SCH ×3 (08:40→17:09)
[2018-06-11] MEDS: MOMETASONE 0.24 GM INHALER INH SCH (08:41)
[2018-06-11] MEDS: NYSTATIN SUSP 5 ML CUP PO SCH ×4 (08:43→20:47)
[2018-06-11] MEDS: SENNA/DOCUSATE NA (8.6MG/50MG) TAB PO SCH ×2 (08:43→20:52)
[2018-06-11] MEDS ORDERED: MAGNESIUM SULFATE 2 GM/50 ML 50 ML IVPB ONE (10:00)
[2018-06-11] MEDS: HEPARIN 1000 UNITS/ML 10 ML INJ IV PRN (10:01)
[2018-06-11] MEDS: POTASSIUM CHLORIDE 50 ML IVPB SCH ×2 (10:13→17:08)
--- NOTE | 2018-06-11 12:32 | CONS ---
Consult Date/Type/Reason Admit Date/Time May 28, 2018 at 17:52 Initial Consult Date Type of Consultation: Urology Requesting Provider: JULY VALENTIN MD Date/Time of Note DATE: 06/11/18 TIME: 12:30 Subjective Pt back in ICU - recurrent bleeding - off heparin gtt ROS: No fever, no chills, no nausea, no vomiting, no diarrhea/constipation No recent weight changes No chest pain, no PND, no orthopnea - mild SOB No dizziness, blurred vision No thirst, no heat or cold intolerance Objective Vitals Vital Signs Date Temp Pulse Resp B/P (MAP) Pulse Ox O2 O2 Flow FiO2 Time Delivery Rate 06/11/18 87 32 115/51 97 Room Air 11:00 (72) 06/11/18 98.1 09:00 06/11/18 2.0 03:08 Intake and Output 06/10/18 06/10/18 06/11/18 1515:00 23:00 07:00 IntakeIntake Total 960 ml 622 ml OutputOutput Total 1200 ml 1100 ml BalanceBalance -240 ml -478 ml Exam General: WN/WD/NAD, AOx 2-3 HEENT: Unicetric/atraumatic/EOMI (follow commands) NECK: JVD elevated, no thyromegaly Lymph: no lymphadenopathy HEART: regular with no S3, II/ systolic murmur at apex, mech click LUNGS: Coarse sounds ABD: soft, NT, ND, +BS : Intact Neuro: non focal SKIN: chronic changes EXT: trace edema Results/Medications Result Diagram: 06/11/18 0748 06/11/18 0748 Results 24 hrs Laboratory Tests Test 06/10/18 18:13 06/10/18 20:53 06/10/18 23:10 06/11/18 02:08 Activated > 180.0 *H > 180.0 *H 122.1 *H 33.2 Partial Thromboplast Time Test 06/11/18 07:48 White Blood Count 12.4 H Red Blood Count 2.33 L Hemoglobin 7.2 L Hematocrit 21.8 L Mean Corpuscular Volume 93.6 Mean Corpuscular 30.9 Hemoglobin Mean Corpuscular 33.0 Hemoglobin Concent Red Cell Distribution 15.9 H Width Platelet Count 224 Mean Platelet Volume 10.1 Immature Granulocytes % 7.700 H Neutrophils % Segmented Neutrophils 85 H % (Manual) Band Neutrophils % 4 (Manual) Lymphocytes % Lymphocytes % (Manual) 10 L Monocytes % Monocytes % (Manual) 1 Eosinophils % Basophils % Nucleated Red Blood 0.2 H Cells % Immature Granulocytes # 0.960 H Neutrophils # Neutrophils # (Manual) 10.6 H Band Neutrophils # 0.4 Lymphocytes (Manual) 1.2 Lymphocytes # Monocytes # Monocytes # (Manual) 0.1 L Eosinophils # Basophils # Nucleated Red Blood Cells # Platelet Estimate NORMAL Polychromasia 2+ Poikilocytosis 1+ Anisocytosis 1+ Activated 43.7 H Partial Thromboplast Time Sodium Level 135 Potassium Level 3.2 L Chloride Level 99 Carbon Dioxide Level 26 Anion Gap 10 Blood Urea Nitrogen 72 H Creatinine 2.66 #H Est Glomerular Filtrat 18 L Rate mL/min Glucose Level 124 Calcium Level 7.9 L Phosphorus Level 3.8 Magnesium Level 1.5 L Home Meds Reported Medications Albuterol Sulfate* (Ventolin HFA*) 18 Gm Hfa.aer.ad, 2 PUFF INHALATION Q4H, #1 INHALER 05/26/18 Ergocalciferol (Vitamin D2) (VITAMIN D2) 50,000 Unit Capsule, 97762 UNIT PO [id number], CAP 05/23/18 Warfarin Sodium* (Coumadin*) 5 Mg Tablet, 5 MG PO Q TUES,THUR,SAT, TAB 05/23/18 Warfarin Sodium* (Coumadin*) 4 Mg Tablet, 4 MG PO Q MON,WED,FRI,SUN, TAB 05/23/18 Furosemide* (Furosemide*) 20 Mg Tablet, 20 MG PO DAILY, #60 TAB TAKE Q 2 DAYS 05/23/18 Simvastatin* (Zocor*) 20 Mg Tablet, 20 MG PO QHS, #30 TAB 05/23/18 Ranitidine Hcl* (Ranitidine Hcl*) 150 Mg Tablet, 150 MG PO HS, #30 TAB 05/23/18 Acetaminophen (Mapap) 500 Mg Capsule, 500 MG PO BID PRN for PAIN, CAP 05/23/18 Levothyroxine Sodium* (Levothyroxine Sodium*) 50 Mcg Tablet, 50 MCG PO BEFORE BREAKFAST, #30 TAB 05/23/18 Spironolactone* (Aldactone*) 25 Mg Tablet, 25 MG PO DAILY, #30 TAB 05/23/18 Beclomethasone Dipropionate (Qvar Redihaler (40 MCG)) 10.6 Gm Hfa.aeroba, 10.6 GM IH DAILY, INH 05/23/18 Amlodipine Besylate* (Norvasc*) 5 Mg Tablet, 5 MG PO BID, TAB 05/23/18 Losartan-Hydrochlorothiazide (Losartan-HCTZ) 100-25 Mg Tab, 1 TAB PO DAILY, TAB 05/23/18 Medications Current Medications Acetaminophen (Tylenol Tab) 650 mg Q4H PRN PO FEVER GREATER THAN 100.6 Last administered on 06/11/18 01:38; Admin Dose 650 MG; Start 05/27/18 at 11:30 Morphine Sulfate (morphine) 2 mg Q2H PRN IV FOR NON CARDIAC PAIN (4-10) Last administered on 06/07/18 19:36; Admin Dose 2 MG; Start 05/27/18 at 11:30 Al Hydrox/Mg Hydrox/Simethicone (Mag-Al Plus) 30 ml Q4H PRN PO GASTROINTESTINAL UPSET; Start 05/27/18 at 11:30 Ondansetron HCl (Zofran Inj) 4 mg Q4H PRN IV NAUSEA AND/OR VOMITING Last administered on 06/06/18 06:05; Admin Dose 4 MG; Start 05/27/18 at 11:30 Levothyroxine Sodium (Synthroid) 50 mcg BEFORE BREAKFAST PO Last administered on 06/11/18 05:31; Admin Dose 50 MCG; Start 05/30/18 at 07:00 Mometasone Furoate (Asmanex) 1 puff DAILY INH Last administered on 06/11/18 08:41; Admin Dose 1 PUFF; Start 05/29/18 at 11:00 Atorvastatin Calcium (Lipitor) 10 mg DAILY@21 PO Last administered on 06/10/18 20:21; Admin Dose 10 MG; Start 05/29/18 at 21:00 Latanoprost (Xalatan) 1 drop HS BOTH EYES Last administered on 06/10/18 00:34; Admin Dose 1 DROP; Start 06/01/18 at 21:00 Amlodipine Besylate (Norvasc) 5 mg DAILY PO ; Start 06/03/18 at 09:00; Status Hold Pantoprazole (Protonix Tab) 40 mg DAILY@06 PO Last administered on 06/11/18 05:27; Admin Dose 40 MG; Start 06/05/18 at 06:00 Heparin Sodium (Porcine) (Heparin (1000 Units/ml)) 3,800 unit PER PROTOCOL PRN IV aPTT<47 Last administered on 06/11/18 10:01; Admin Dose 3,800 UNIT; Start 06/04/18 at 19:00; Status Hold Heparin Sodium (Porcine) 250 ml @ 7.5 mls/hr PER PROTOCOL IV Last administered on 06/11/18 09:59; Admin Dose 9.6 MLS/HR; Start 06/04/18 at 19:00; Status Hold Metoclopramide HCl (Reglan) 5 mg TID PRN IV Nausea; Start 06/06/18 at 11:00 Senna/Docusate Sodium (Senokot-S) 2 tab BID PO Last administered on 06/10/18 20:21; Admin Dose 2 TAB; Start 06/06/18 at 21:00 Polyethylene Glycol (Miralax) 17 gm BID PRN PO CONSTIPATION; Start 06/06/18 at 14:00 Bisacodyl (Dulcolax Supp) 10 mg DAILY PRN AL CONSTIPATION; Start 06/06/18 at 14:00 IV Flush (NS 10 ml) 10 ml PRN PRN IV IV PROTOCOL; Start 06/06/18 at 16:00 Nystatin (Nystatin Susp) 5 ml QID PO Last administered on 06/11/18 08:43; Admin Dose 5 ML; Start 06/06/18 at 17:00 Sevelamer Carbonate (Renvela) 800 mg WITH MEALS PO Last administered on 06/11/18 08:40; Admin Dose 800 MG; Start 06/08/18 at 07:35 Warfarin Sodium (Coumadin) 3 mg DAILY@17 PO Last administered on 06/10/18 18:12; Admin Dose 3 MG; Start 06/10/18 at 17:00 Potassium Chloride 50 ml @ 25 mls/hr Q2H IVPB Last administered on 06/11/18 10:13; Admin Dose 25 MLS/HR; Start 06/11/18 at 10:00; Stop 06/11/18 at 13:59 Imaging 1.cad s/p LHC with no sig obstructive cad - on med rx now 2.HTN - treated 3.RP Bleed s/p transfusions now stable and tolerating heparin/coumadin loading. Then had recurrent bled overnight now s/p covered stent to CHILD CARE GIVER/Ext iliac. Stable collection by abd CT 06/06 but still with pigtail catheter in place - now more bleedig - back t oICU - heparin held 4.HL 5.MVR-mechanical - stable by exam 6.anemia- s/p repair of R CHILD CARE GIVER/illiac. Now stabilizing 7.Hypothyroid 8. FOURNIER-negative Head CT 9. Fevers-with positive ua 10. UTI 11.ARF-? 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 Coagulopathy-likely secondary to coumadin 14. LE weakness-? compression from hematoma and exacerbated by femoral compression after cath 15. arterial insuff- LLE- s/p MANAGER REGISTRATION/thrombolysis 06/04 successfully with palpable pulses/B DP/PT Assessment/Plan Hospital Course (Demo Recall) 1. CAD - s/p Left heart catheterization; Coronary angiography - no intervention done. NO CP now. 2. Retroperitoneal bleed: CT abdomen/pelvis showed moderate to large amount of hemoperitoneum. Today H/H with minimal drop - blood rx now- I had a lengthy discission with family - I think risk/benefit favors waiting another day to allow H/H stabilization - will check am Hg -if stable - back on heparin + coumadin load. 3. HTN - BP in good range now. Well Rx. 4. Hypothyroidism - TSH followed by primary team. 5. Asthma - - bronchodilators as needed 6. Hx mitral valve replacement with mechanical valve 1999 - back to anti-coag. 7. Mild SOB - spot lasix x 1 now. CECILIA MOCTEZUMA MD Jun 11, 2018 12:31
--- NOTE | 2018-06-11 15:52 | PN ---
DATE: 06/11/2018 SUBJECTIVE: The patient started having a nasopharyngeal bleed and has been transferred to ICU. The patient did drop hemoglobin from 8.7 yesterday to 7.2. Stat chest x-ray showed no change from previo us x-ray done on 06/05/2018. PT and PTT last night was more than 180. Heparin was withheld and was resumed subsequently as per protocol. Last PTT this morning is 43.7. PHYSICAL EXAMINATION: GENERAL: The patient be awake, alert, looks pale. VITAL SIGNS: Temperature 97.4, pulse 94, respirations 28, blood pressure 125/60, O2 saturation 96 on room air. HEENT: No eye discharge or redness. Oropharynx: The patient has a small blood clot. NECK: No mass. CHEST: Diminished air entry at bases. CARDIOVASCULAR: Irregularly irregular rhythm. Prosthetic valve click. ABDOMEN: Soft. EXTREMITIES: Diminished edema. NEUROLOGIC: The patient is awake and alert. LABORATORY DATA: WBC 12.4, hemoglobin 7.2, platelet 224. Chemistry: Potassium 3.2, BUN 72, creatin ine 2.6, magnesium 1.5. IMPRESSION AND PLAN: 1. Upper respiratory tract bleeding due to heparin. We will defer to cardiology about anticoagulati on. 2. Anemia, symptomatic. We will transfuse ____ PRBC. 3. Hypokalemia and hypomagnesemia. We will replace electrolyte. 4. Recent retroperitoneal bleed. Continue to monitor. 5. Mechanical aortic valve. 6. Hypothyroidism. 7. Dyslipidemia. Continue Synthroid and Lipitor. Plan of care was discussed with the patient's daughter, son-in-law, and . Continue further ma nagement as per multiple consultants. We will continue to monitor in ICU. Dictated By: JULY VALENTIN MD AB/NTS Conf#: [id number] DID#: [id number] CC: CHRIS LAZAR MD;*EndCC*
[2018-06-11] MEDS: WARFARIN 3 MG TAB PO SCH (17:09)
[2018-06-11] MEDS: ATORVASTATIN 10 MG TAB PO SCH (20:47)
[2018-06-11] MEDS: LATANOPROST 0.005% 2.5 ML OPH BOTH EYES SCH (20:51)
--- NOTE | 2018-06-11 22:03 | CONS ---
Assessment/Plan Assessment/Plan Hospital Course (Demo Recall) assessment/impression - severe sepsis due to UTI, improved - SIRS due to acute blood loss, improved - nasopharyngeal bleed on 06/11/2018, stopped after heparin was held - s/p UTI due to E. coli, resolved. 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, s/p covered stent placement 6 x 100 mm right common femoral artery and right external iliac artery, abdominal aortogram, catheter introduction to the abdominal aorta, JOSÉ MIGUEL guidance into the central artery 06/02/2018 - s/p retroperitoneal bleed - s/p acute anemia requiring PRBC - s/p CT guided placement of drainage catheter into pelvic hematoma 06/05/2018--> removed on 06/09/2018 - Oliguric FORREST - s/p L heart catheterization on 05/27/2018 showing no significant obstructive CAD - CAD s/p CABG in in 1982 - H/o MVR with mechanical valve, in 1999 - cholelithiasis without e/o acute cholecystitis - Hypertension - Hyperlipidemia - Hypothyroidism - asthma - s/p FOURNIER, resolved. CT head shows no acute findings recommendations: - continue to monitor Pt off systemic antibiotic. management d/w Pt, her daughter, RN the critical care time I took to care for this Pt today was 30 min Consultation Date/Type/Reason Admit Date/Time May 28, 2018 at 17:52 Initial Consult Date 06/03/18 Type of Consult ID Reason for Consultation UTI Requesting Provider: JULY VALENTIN MD Date/Time of Note DATE: 06/11/18 TIME: 22:00 24 HR Interval Summary Free Text/Dictation Pt was transferred to ICU after nasopharyngeal bleed, heparin was held Constitutional: improved Detailed Summary Eyes: no complaints ENT: other (had nasopharyngeal bleed, it stopped) Respiratory: no complaints Cardiovascular: no complaints Gastrointestinal: no complaints Genitourinary: other (no pain from the R flank) Musculoskeletal: no complaints Skin: no complaints Neurologic: no complaints Exam/Review of Systems Exam Vitals Vital Signs Date Temp Pulse Resp B/P (MAP) Pulse Ox O2 O2 Flow FiO2 Time Delivery Rate 06/11/18 92 20:00 06/11/18 16 154/91 93 Room Air 19:00 (112) 06/11/18 98.4 16:00 06/11/18 2.0 03:08 Intake and Output 06/10/18 06/10/18 06/11/18 1515:00 23:00 07:00 IntakeIntake Total 960 ml 622 ml OutputOutput Total 1200 ml 1100 ml BalanceBalance -240 ml -478 ml Constitutional: frail Psych: no complaints, nl mood/affect Head: normocephalic, atraumatic Eyes: nl conjunctiva, nl lids, nl sclera ENMT: nl external ears & nose, nl nasal mucosa & septum, mucosa pink and moist Neck: other (not swollen) Respiratory: clear to auscultation, normal air movement Cardiovascular: regular rate and rhythm, nl pulses; No edema Gastrointestinal: soft, non-tender; No distended Genitourinary - Female: other (FC) Extremities: normal pulses; No edema Neurological: LAUNDERER HAND II-XII intact, nl mental status, nl speech Skin: nl turgor, ecchymosis Results Result Diagram: 06/11/18202806/11/18 2100 Results 24hrs Laboratory Tests Test 06/10/18 23:10 06/11/18 02:08 06/11/18 07:48 06/11/18 20:29 Activated 122.1 *H 33.2 43.7 H Partial Thromboplast Time White Blood Count 12.4 H Red Blood Count 2.33 L Hemoglobin 7.2 L 8.3 L Hematocrit 21.8 L 25.0 L Mean Corpuscular Volume 93.6 Mean Corpuscular 30.9 Hemoglobin Mean Corpuscular 33.0 Hemoglobin Concent Red Cell Distribution 15.9 H Width Platelet Count 224 Mean Platelet Volume 10.1 Immature Granulocytes % 7.700 H Neutrophils % Segmented Neutrophils 85 H % (Manual) Band Neutrophils % 4 (Manual) Lymphocytes % Lymphocytes % (Manual) 10 L Monocytes % Monocytes % (Manual) 1 Eosinophils % Basophils % Nucleated Red Blood 0.2 H Cells % Immature Granulocytes # 0.960 H Neutrophils # Neutrophils # (Manual) 10.6 H Band Neutrophils # 0.4 Lymphocytes (Manual) 1.2 Lymphocytes # Monocytes # Monocytes # (Manual) 0.1 L Eosinophils # Basophils # Nucleated Red Blood Cells # Platelet Estimate NORMAL Polychromasia 2+ Poikilocytosis 1+ Anisocytosis 1+ Sodium Level 135 Potassium Level 3.2 L Chloride Level 99 Carbon Dioxide Level 26 Anion Gap 10 Blood Urea Nitrogen 72 H Creatinine 2.66 #H Est Glomerular Filtrat 18 L Rate mL/min Glucose Level 124 Calcium Level 7.9 L Phosphorus Level 3.8 Magnesium Level 1.5 L Test 06/11/18 21:00 Potassium Level 3.8 Magnesium Level 2.3 Medications Medication Current Medications Acetaminophen (Tylenol Tab) 650 mg Q4H PRN PO FEVER GREATER THAN 100.6 Last administered on 06/11/18 01:38; Admin Dose 650 MG; Start 05/27/18 at 11:30 Morphine Sulfate (morphine) 2 mg Q2H PRN IV FOR NON CARDIAC PAIN (4-10) Last administered on 06/07/18 19:36; Admin Dose 2 MG; Start 05/27/18 at 11:30 Al Hydrox/Mg Hydrox/Simethicone (Mag-Al Plus) 30 ml Q4H PRN PO GASTROINTESTINAL UPSET; Start 05/27/18 at 11:30 Ondansetron HCl (Zofran Inj) 4 mg Q4H PRN IV NAUSEA AND/OR VOMITING Last administered on 06/06/18 06:05; Admin Dose 4 MG; Start 05/27/18 at 11:30 Levothyroxine Sodium (Synthroid) 50 mcg BEFORE BREAKFAST PO Last administered on 06/11/18 05:31; Admin Dose 50 MCG; Start 05/30/18 at 07:00 Mometasone Furoate (Asmanex) 1 puff DAILY INH Last administered on 06/11/18 08:41; Admin Dose 1 PUFF; Start 05/29/18 at 11:00 Atorvastatin Calcium (Lipitor) 10 mg DAILY@21 PO Last administered on 06/11/18 20:47; Admin Dose 10 MG; Start 05/29/18 at 21:00 Latanoprost (Xalatan) 1 drop HS BOTH EYES Last administered on 06/11/18 20:51; Admin Dose 1 DROP; Start 06/01/18 at 21:00 Amlodipine Besylate (Norvasc) 5 mg DAILY PO ; Start 06/03/18 at 09:00; Status Hold Pantoprazole (Protonix Tab) 40 mg DAILY@06 PO Last administered on 06/11/18 05:27; Admin Dose 40 MG; Start 06/05/18 at 06:00 Heparin Sodium (Porcine) (Heparin (1000 Units/ml)) 3,800 unit PER PROTOCOL PRN IV aPTT<47 Last administered on 06/11/18 10:01; Admin Dose 3,800 UNIT; Start at 19:00; Status Hold Heparin Sodium (Porcine) 250 ml @ 7.5 mls/hr PER PROTOCOL IV Last administered on 06/11/18 09:59; Admin Dose 9.6 MLS/HR; Start 06/04/18 at 19:00; Status Hold Metoclopramide HCl (Reglan) 5 mg TID PRN IV Nausea; Start 06/06/18 at 11:00 Senna/Docusate Sodium (Senokot-S) 2 tab BID PO Last administered on 06/10/18 20:21; Admin Dose 2 TAB; Start 06/06/18 at 21:00 Polyethylene Glycol (Miralax) 17 gm BID PRN PO CONSTIPATION; Start 06/06/18 at 14:00 Bisacodyl (Dulcolax Supp) 10 mg DAILY PRN ME CONSTIPATION; Start 06/06/18 at 14:00 IV Flush (NS 10 ml) 10 ml PRN PRN IV IV PROTOCOL; Start 06/06/18 at 16:00 Nystatin (Nystatin Susp) 5 ml QID PO Last administered on 06/11/18 20:47; Admin Dose 5 ML; Start 06/06/18 at 17:00 Sevelamer Carbonate (Renvela) 800 mg WITH MEALS PO Last administered on 06/11/18 17:09; Admin Dose 800 MG; Start 06/08/18 at 07:35 Warfarin Sodium (Coumadin) 3 mg DAILY@17 PO Last administered on 06/11/18 17:09; Admin Dose 3 MG; Start 06/10/18 at 17:00 SHARI CROWELL M.D. Jun 11, 2018 22:03
[2018-06-12] VITALS (24 sets, daily range): BP systolic 93–142; BP diastolic 54–89; PULSE 84–104; RESP 26–45
[2018-06-12] MEDS: PANTOPRAZOLE (EC) 40 MG TAB PO SCH (05:08)
[2018-06-12] MEDS: LEVOTHYROXINE 50 MCG TAB PO SCH (06:40)
[2018-06-12] MEDS: SENNA/DOCUSATE NA (8.6MG/50MG) TAB PO SCH ×2 (08:19→20:39)
[2018-06-12] MEDS: MOMETASONE 0.24 GM INHALER INH SCH (08:19)
[2018-06-12] MEDS: SEVELAMER CARBONATE 800 MG TABLET PO SCH ×3 (08:19→17:10)
[2018-06-12] MEDS: NYSTATIN SUSP 5 ML CUP PO SCH ×4 (08:19→20:39)
--- NOTE | 2018-06-12 08:32 | PN ---
Date/Time of Note Date/Time of Note DATE: 06/12/18 TIME: 08:32 Assessment/Plan VTE Prophylaxis Risk score (from Ns)>0 risk: 13 SCD applied (from Ns): Yes Pharmacological prophylaxis: other Lines/Catheters IV Catheter Type (from Nrsg): PICC Line Central line still needed: Yes Urinary Cath still in place: Yes Reason Cath still needed: urinary retention Assessment/Plan Hospital Course renal follow up SUBJECTIVE: The patient is currently in icu d/w Dr Laughlin ARF is improving OBJECTIVE: HEENT: Head is normocephalic. NECK: Supple. HEART: Regular rate. LUNGS: Show diminished breath sounds at the base. ABDOMEN: Soft, nontender to palpation without rebound or guarding. EXTREMITIES: Negative for clubbing, cyanosis. Positive edema. DERMATOLOGIC: No rashes. MUSCULOSKELETAL: No joint effusions. NEUROLOGIC: No change in exam. MEDICATIONS: The patient's medications have been reviewed. ASSESSMENT AND PLAN: 1. Nonoliguric acute kidney injury with previous baseline creatinine of 0.6 mg/dL. Etiology of acute kidney injury is secondary to acute tubular necrosis. The patient's renal function has been improving as the patient is in recovery phase of acute tubular necrosis. At this point, continue current treatment pl an, supportive care, renally dose all medicines. No need for renal replacement therapy at this time. 2. Hyperkalemia. Continue to monitor and replete. 3. Anemia due to retroperitoneal bleed. The patient is status post blood transfusion. Continue to monitor hemoglobin and hematocrit levels. 4. Mineral bone disorder, monitor calcium and phosphorus levels. 5. Coronary artery disease. Continue medical management. 6. Mechanical heart valve. Continue anticoagulation. Continue heparin drip. Follow up with cardiology. 7. Sepsis secondary to urinary tract infection. Continue current antibiotic regimen. 8. Hypothyroidism. Continue Synthroid. 9. Dyslipidemia. Continue statin therapy. 10. Hypertension. Continue current blood pressure regimen. 11. Volume overload. Continue intermittent diuretic therapy. 12. Intraabdominal hematoma. The patient is status post pigtail placement. Continue to monitor and draining well. Result Diagram: 06/12/18 0430 06/12/18 0430 Results 24hrs Laboratory Tests Test 06/11/18 20:29 06/11/18 21:00 06/12/18 04:30 Hemoglobin 8.3 L 8.1 L Hematocrit 25.0 L 24.5 L Potassium Level 3.8 3.8 Magnesium Level 2.3 2.2 White Blood Count 15.9 #H Red Blood Count 2.63 L Mean Corpuscular Volume 93.2 Mean Corpuscular Hemoglobin 30.8 Mean Corpuscular Hemoglobin Concent 33.1 Red Cell Distribution Width 16.2 H Platelet Count 216 Mean Platelet Volume 10.0 Immature Granulocytes % 5.000 H Neutrophils % 84.0 H Lymphocytes % 4.8 L Monocytes % 5.2 Eosinophils % 0.8 Basophils % 0.2 Nucleated Red Blood Cells % 0.1 H Immature Granulocytes # 0.790 H Neutrophils # 13.4 H Lymphocytes # 0.8 Monocytes # 0.8 Eosinophils # 0.1 Basophils # 0.0 Nucleated Red Blood Cells # 0.0 Prothrombin Time 14.7 Prothrombin Time Ratio 1.1 INR International Normalized Ratio 1.14 Sodium Level 135 Chloride Level 100 Carbon Dioxide Level 26 Anion Gap 9 Blood Urea Nitrogen 65 H Creatinine 1.98 H Est Glomerular Filtrat Rate mL/min 26 L Glucose Level 120 Calcium Level 8.1 L Exam/Review of Systems Exam Vitals Vital Signs Date Temp Pulse Resp B/P (MAP) Pulse Ox O2 O2 Flow FiO2 Time Delivery Rate 06/12/18 91 38 131/70 97 Room Air 07:00 (90) 06/12/18 2.0 27 05:30 06/12/18 98.3 04:00 Intake and Output 06/11/18 06/11/18 06/12/18 1515:00 23:00 07:00 IntakeIntake Total 547 ml 720 ml 60 ml OutputOutput Total 650 ml 645 ml 720 ml BalanceBalance -103 ml 75 ml -660 ml Results Results 24hrs Laboratory Tests Test 06/11/18 20:29 06/11/18 21:00 06/12/18 04:30 Hemoglobin 8.3 L 8.1 L Hematocrit 25.0 L 24.5 L Potassium Level 3.8 3.8 Magnesium Level 2.3 2.2 White Blood Count 15.9 #H Red Blood Count 2.63 L Mean Corpuscular Volume 93.2 Mean Corpuscular Hemoglobin 30.8 Mean Corpuscular Hemoglobin Concent 33.1 Red Cell Distribution Width 16.2 H Platelet Count 216 Mean Platelet Volume 10.0 Immature Granulocytes % 5.000 H Neutrophils % 84.0 H Lymphocytes % 4.8 L Monocytes % 5.2 Eosinophils % 0.8 Basophils % 0.2 Nucleated Red Blood Cells % 0.1 H Immature Granulocytes # 0.790 H Neutrophils # 13.4 H Lymphocytes # 0.8 Monocytes # 0.8 Eosinophils # 0.1 Basophils # 0.0 Nucleated Red Blood Cells # 0.0 Prothrombin Time 14.7 Prothrombin Time Ratio 1.1 INR International Normalized Ratio 1.14 Sodium Level 135 Chloride Level 100 Carbon Dioxide Level 26 Anion Gap 9 Blood Urea Nitrogen 65 H Creatinine 1.98 H Est Glomerular Filtrat Rate mL/min 26 L Glucose Level 120 Calcium Level 8.1 L Medications Medication Current Medications Acetaminophen (Tylenol Tab) 650 mg Q4H PRN PO FEVER GREATER THAN 100.6 Last administered on 06/11/18 01:38; Admin Dose 650 MG; Start 05/27/18 at 11:30 Morphine Sulfate (morphine) 2 mg Q2H PRN IV FOR NON CARDIAC PAIN (4-10) Last administered on 06/07/18 19:36; Admin Dose 2 MG; Start 05/27/18 at 11:30 Al Hydrox/Mg Hydrox/Simethicone (Mag-Al Plus) 30 ml Q4H PRN PO GASTROINTESTINAL UPSET; Start 05/27/18 at 11:30 Ondansetron HCl (Zofran Inj) 4 mg Q4H PRN IV NAUSEA AND/OR VOMITING Last administered on 06/06/18 06:05; Admin Dose 4 MG; Start 05/27/18 at 11:30 Levothyroxine Sodium (Synthroid) 50 mcg BEFORE BREAKFAST PO Last administered on 06/12/18 06:40; Admin Dose 50 MCG; Start 05/30/18 at 07:00 Mometasone Furoate (Asmanex) 1 puff DAILY INH Last administered on 06/12/18 08:19; Admin Dose 1 PUFF; Start 05/29/18 at 11:00 Atorvastatin Calcium (Lipitor) 10 mg DAILY@21 PO Last administered on 06/11/18 20:47; Admin Dose 10 MG; Start 05/29/18 at 21:00 Latanoprost (Xalatan) 1 drop HS BOTH EYES Last administered on 06/11/18 20:51; Admin Dose 1 DROP; Start 06/01/18 at 21:00 Amlodipine Besylate (Norvasc) 5 mg DAILY PO ; Start 06/03/18 at 09:00; Status Hold Pantoprazole (Protonix Tab) 40 mg DAILY@06 PO Last administered on 06/12/18 05:08; Admin Dose 40 MG; Start 06/05/18 at 06:00 Heparin Sodium (Porcine) (Heparin (1000 Units/ml)) 3,800 unit PER PROTOCOL PRN IV aPTT<47 Last administered on 06/11/18 10:01; Admin Dose 3,800 UNIT; Start 06/04/18 at 19:00; Status Hold Heparin Sodium (Porcine) 250 ml @ 7.5 mls/hr PER PROTOCOL IV Last administered on 06/11/18 09:59; Admin Dose 9.6 MLS/HR; Start 06/04/18 at 19:00; Status Hold Metoclopramide HCl (Reglan) 5 mg TID PRN IV Nausea; Start 06/06/18 at 11:00 Senna/Docusate Sodium (Senokot-S) 2 tab BID PO Last administered on 06/10/18 20:21; Admin Dose 2 TAB; Start 06/06/18 at 21:00 Polyethylene Glycol (Miralax) 17 gm BID PRN PO CONSTIPATION; Start 06/06/18 at 14:00 Bisacodyl (Dulcolax Supp) 10 mg DAILY PRN DC CONSTIPATION; Start 06/06/18 at 14:00 IV Flush (NS 10 ml) 10 ml PRN PRN IV IV PROTOCOL; Start 06/06/18 at 16:00 Nystatin (Nystatin Susp) 5 ml QID PO Last administered on 06/12/18 08:19; Admin Dose 5 ML; Start 06/06/18 at 17:00 Sevelamer Carbonate (Renvela) 800 mg WITH MEALS PO Last administered on 06/12/18 08:19; Admin Dose 800 MG; Start 06/08/18 at 07:35 Warfarin Sodium (Coumadin) 3 mg DAILY@17 PO Last administered on 06/11/18 17:09; Admin Dose 3 MG; Start 06/10/18 at 17:00 NURIA BAUTISTA DO Jun 12, 2018 08:32
--- NOTE | 2018-06-12 10:57 | PN ---
DATE: 06/12/2018 SUBJECTIVE: The patient is still pulling out some clots from her mouth, although there is no active nose bleed or hematemesis or melena. No reported fever or chills. No report of any change in mental status. The patient is breathing comfortably and is saturating 97 to 98% on room air. Denies any v omiting. The patient still has significant leg edema. The patient is awake, alert. PHYSICAL EXAMINATION: VITAL SIGNS: Temperature 98.4, pulse 91, respirations in low 30s. Respirations in 30s, blood pressu re 129/64, O2 saturation 98% on room air. HEENT: No eye discharge or redness. Oropharynx grossly normal. NECK: No mass. CHEST: Diminished air entry at bases. CARDIOVASCULAR: Irregularly irregular rhythm. Prosthetic valve click present. ABDOMEN: Soft. Pigtail catheter site has healed. EXTREMITIES: Edematous. NEUROLOGIC: The patient is awake, alert, fairly oriented. LABORATORY DATA: Done this morning, WBC 15.9, hemoglobin 8.1, platelet 216. Sodium 130, potassium 3 .8, BUN 65, creatinine 1.9, glucose 120, magnesium 2.2. IMPRESSION: 1. Nose/oropharyngeal bleed. Heparin is on hold. The patient did receive 3 mg of Coumadin yesterda y. The patient's INR is only 1.1. We will wait for Dr. Travis Valencia for further recommendation regar ding heparin. 2. Recent retroperitoneal bleed secondary to vascular injury status post stent placement. Monitor H and H. 3. Mechanical mitral valve and chronic atrial fibrillation. Heart rate seems to be within acceptabl e range. Continue recommendation from cardiology. 4. Hypothyroidism. Continue Synthroid. 5. Dyslipidemia. Continue Lipitor. 6. Elevated white count. Patient has no fever and no bandemia. We will wait for Dr. Molina for f wesley recommendation from infectious disease standpoint. Currently, the patient is off antibiotic. Plan of care discussed with patient's family. The patient will be monitored in ICU. Dictated By: JULY STUBBS/SAVANNAH Conf#: [id number] DID#: [id number] CC: CHRIS LAZAR MD; JOAQUIN DE LEON MD;*EndCC*
--- NOTE | 2018-06-12 12:53 | CONS ---
Consult Date/Type/Reason Admit Date/Time May 28, 2018 at 17:52 Initial Consult Date 06/03/18 Type of Consultation: Urology Reason for Consultation Difficulty inserting a Mensah catheter Requesting Provider: JULY VALENTIN MD Date/Time of Note DATE: 06/12/18 TIME: 12:48 Subjective The patient is awake and alert. She still complains of some abdominal pain. The Mensah catheter is draining and she is having good urine output. 1940ml in the past 24 hours Objective Vitals Vital Signs Date Temp Pulse Resp B/P (MAP) Pulse Ox O2 O2 Flow FiO2 Time Delivery Rate 06/12/18 84 12:00 06/12/18 45 130/76 98 Room Air 11:00 (94) 06/12/18 98.4 08:00 06/12/18 2.0 27 05:30 Intake and Output 06/11/18 06/11/18 06/12/18 1515:00 23:00 07:00 IntakeIntake Total 547 ml 720 ml 60 ml OutputOutput Total 650 ml 645 ml 720 ml BalanceBalance -103 ml 75 ml -660 ml Exam The abdomen is tense but not as much as it was before. Mensah catheter is draining well and the urine is clear. Her creatinine has been trending down. Results/Medications Result Diagram: 06/12/18 0430 06/12/18 0430 Results 24 hrs Laboratory Tests Test 06/11/18 20:29 06/11/18 21:00 06/12/18 04:30 Hemoglobin 8.3 L 8.1 L Hematocrit 25.0 L 24.5 L Potassium Level 3.8 3.8 Magnesium Level 2.3 2.2 White Blood Count 15.9 #H Red Blood Count 2.63 L Mean Corpuscular Volume 93.2 Mean Corpuscular Hemoglobin 30.8 Mean Corpuscular Hemoglobin Concent 33.1 Red Cell Distribution Width 16.2 H Platelet Count 216 Mean Platelet Volume 10.0 Immature Granulocytes % 5.000 H Neutrophils % 84.0 H Lymphocytes % 4.8 L Monocytes % 5.2 Eosinophils % 0.8 Basophils % 0.2 Nucleated Red Blood Cells % 0.1 H Immature Granulocytes # 0.790 H Neutrophils # 13.4 H Lymphocytes # 0.8 Monocytes # 0.8 Eosinophils # 0.1 Basophils # 0.0 Nucleated Red Blood Cells # 0.0 Prothrombin Time 14.7 Prothrombin Time Ratio 1.1 INR International Normalized Ratio 1.14 Sodium Level 135 Chloride Level 100 Carbon Dioxide Level 26 Anion Gap 9 Blood Urea Nitrogen 65 H Creatinine 1.98 H Est Glomerular Filtrat Rate mL/min 26 L Glucose Level 120 Calcium Level 8.1 L Home Meds Reported Medications Albuterol Sulfate* (Ventolin HFA*) 18 Gm Hfa.aer.ad, 2 PUFF INHALATION Q4H, #1 INHALER 05/26/18 Ergocalciferol (Vitamin D2) (VITAMIN D2) 50,000 Unit Capsule, 84769 UNIT PO [id number], CAP 05/23/18 Warfarin Sodium* (Coumadin*) 5 Mg Tablet, 5 MG PO Q TUES,THUR,SAT, TAB 05/23/18 Warfarin Sodium* (Coumadin*) 4 Mg Tablet, 4 MG PO Q MON,WED,FRI,SUN, TAB 05/23/18 Furosemide* (Furosemide*) 20 Mg Tablet, 20 MG PO DAILY, #60 TAB TAKE Q 2 DAYS 05/23/18 Simvastatin* (Zocor*) 20 Mg Tablet, 20 MG PO QHS, #30 TAB 05/23/18 Ranitidine Hcl* (Ranitidine Hcl*) 150 Mg Tablet, 150 MG PO HS, #30 TAB 05/23/18 Acetaminophen (Mapap) 500 Mg Capsule, 500 MG PO BID PRN for PAIN, CAP 05/23/18 Levothyroxine Sodium* (Levothyroxine Sodium*) 50 Mcg Tablet, 50 MCG PO BEFORE BREAKFAST, #30 TAB 05/23/18 Spironolactone* (Aldactone*) 25 Mg Tablet, 25 MG PO DAILY, #30 TAB 05/23/18 Beclomethasone Dipropionate (Qvar Redihaler (40 MCG)) 10.6 Gm Hfa.aeroba, 10.6 GM IH DAILY, INH 05/23/18 Amlodipine Besylate* (Norvasc*) 5 Mg Tablet, 5 MG PO BID, TAB 05/23/18 Losartan-Hydrochlorothiazide (Losartan-HCTZ) 100-25 Mg Tab, 1 TAB PO DAILY, TAB 05/23/18 Medications Current Medications Acetaminophen (Tylenol Tab) 650 mg Q4H PRN PO FEVER GREATER THAN 100.6 Last administered on 3/2/19at 01:38; Admin Dose 650 MG; Start 05/27/18 at 11:30 Morphine Sulfate (morphine) 2 mg Q2H PRN IV FOR NON CARDIAC PAIN (4-10) Last administered on 06/07/18 19:36; Admin Dose 2 MG; Start 05/27/18 at 11:30 Al Hydrox/Mg Hydrox/Simethicone (Mag-Al Plus) 30 ml Q4H PRN PO GASTROINTESTINAL UPSET; Start 05/27/18 at 11:30 Ondansetron HCl (Zofran Inj) 4 mg Q4H PRN IV NAUSEA AND/OR VOMITING Last administered on 06/06/18 06:05; Admin Dose 4 MG; Start 05/27/18 at 11:30 Levothyroxine Sodium (Synthroid) 50 mcg BEFORE BREAKFAST PO Last administered on 06/12/18 06:40; Admin Dose 50 MCG; Start 05/30/18 at 07:00 Mometasone Furoate (Asmanex) 1 puff DAILY INH Last administered on 06/12/18 08:19; Admin Dose 1 PUFF; Start 05/29/18 at 11:00 Atorvastatin Calcium (Lipitor) 10 mg DAILY@21 PO Last administered on 06/11/18 20:47; Admin Dose 10 MG; Start 05/29/18 at 21:00 Latanoprost (Xalatan) 1 drop HS BOTH EYES Last administered on 06/11/18 20:51; Admin Dose 1 DROP; Start 06/01/18 at 21:00 Amlodipine Besylate (Norvasc) 5 mg DAILY PO ; Start 06/03/18 at 09:00; Status Hold Pantoprazole (Protonix Tab) 40 mg DAILY@06 PO Last administered on 06/12/18 05:08; Admin Dose 40 MG; Start 06/05/18 at 06:00 Heparin Sodium (Porcine) (Heparin (1000 Units/ml)) 3,800 unit PER PROTOCOL PRN IV aPTT<47 Last administered on 06/11/18 10:01; Admin Dose 3,800 UNIT; Start 06/04/18 at 19:00; Status Hold Heparin Sodium (Porcine) 250 ml @ 7.5 mls/hr PER PROTOCOL IV Last administered on 06/11/18 09:59; Admin Dose 9.6 MLS/HR; Start 06/04/18 at 19:00; Status Hold Metoclopramide HCl (Reglan) 5 mg TID PRN IV Nausea; Start 06/06/18 at 11:00 Senna/Docusate Sodium (Senokot-S) 2 tab BID PO Last administered on 06/10/18at 20:21; Admin Dose 2 TAB; Start 06/06/18 at 21:00 Polyethylene Glycol (Miralax) 17 gm BID PRN PO CONSTIPATION; Start 06/06/18 at 14:00 Bisacodyl (Dulcolax Supp) 10 mg DAILY PRN [place] CONSTIPATION; Start 06/06/18 at 14:00 IV Flush (NS 10 ml) 10 ml PRN PRN IV IV PROTOCOL; Start 06/06/18 at 16:00 Nystatin (Nystatin Susp) 5 ml QID PO Last administered on 06/12/18at 12:24; Admin Dose 5 ML; Start 06/06/18 at 17:00 Sevelamer Carbonate (Renvela) 800 mg WITH MEALS PO Last administered on 06/12/18 12:24; Admin Dose 800 MG; Start 06/08/18 at 07:35 Warfarin Sodium (Coumadin) 3 mg DAILY@17 PO Last administered on 06/11/18 17:09; Admin Dose 3 MG; Start 06/10/18 at 17:00 Assessment/Plan Hospital Course (Demo Recall) 62-year-old female underwent coronary angiogram. 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 I did insert the catheter for her and she was anuric. Since then she has improved and has been making urine and the urine is clear. She does have a good urine output and her creatinine has been coming down. Urologically for now keep the Mensah catheter in place. JOAQUIN DE LEON MD Jun 12, 2018 12:53
--- NOTE | 2018-06-12 14:48 | CONS ---
Consult Date/Type/Reason Admit Date/Time May 28, 2018 at 17:52 Initial Consult Date Type of Consultation: Urology Requesting Provider: JULY VALENTIN MD Date/Time of Note DATE: 06/12/18 TIME: 14:46 Subjective No acute events - off heparin - H/H stable resumed Coumadin ROS: No fever, no chills, no nausea, no vomiting, no diarrhea/constipation No recent weight changes No chest pain, no PND, no orthopnea + back pain and some SOB No dizziness, blurred vision No thirst, no heat or cold intolerance Objective Vitals Vital Signs Date Temp Pulse Resp B/P (MAP) Pulse Ox O2 O2 Flow FiO2 Time Delivery Rate 06/12/18 88 33 132/89 99 Room Air 13:00 (103) 06/12/18 98.3 12:00 06/12/18 2.0 27 05:30 Intake and Output 06/11/18 06/11/18 06/12/18 1515:00 23:00 07:00 IntakeIntake Total 547 ml 720 ml 60 ml OutputOutput Total 650 ml 645 ml 720 ml BalanceBalance -103 ml 75 ml -660 ml Exam General: WN/WD/NAD, AOx 3 HEENT: Unicetric/atraumatic/EOMI ( follow commands) NECK: JVD elevated, no thyromegaly Lymph: no lymphadenopathy HEART: regular with no S3, II/ systolic murmur at apex, mech click LUNGS: Coarse sounds ABD: soft, NT, ND, +BS : Intact Neuro: non focal SKIN: chronic changes EXT: trace edema Results/Medications Result Diagram: 06/12/1842906/12/18 043 Results 24 hrs Laboratory Tests Test 06/11/18 20:29 06/11/18 21:00 06/12/18 04:30 Hemoglobin 8.3 L 8.1 L Hematocrit 25.0 L 24.5 L Potassium Level 3.8 3.8 Magnesium Level 2.3 2.2 White Blood Count 15.9 #H Red Blood Count 2.63 L Mean Corpuscular Volume 93.2 Mean Corpuscular Hemoglobin 30.8 Mean Corpuscular Hemoglobin Concent 33.1 Red Cell Distribution Width 16.2 H Platelet Count 216 Mean Platelet Volume 10.0 Immature Granulocytes % 5.000 H Neutrophils % 84.0 H Lymphocytes % 4.8 L Monocytes % 5.2 Eosinophils % 0.8 Basophils % 0.2 Nucleated Red Blood Cells % 0.1 H Immature Granulocytes # 0.790 H Neutrophils # 13.4 H Lymphocytes # 0.8 Monocytes # 0.8 Eosinophils # 0.1 Basophils # 0.0 Nucleated Red Blood Cells # 0.0 Prothrombin Time 14.7 Prothrombin Time Ratio 1.1 INR International Normalized Ratio 1.14 Sodium Level 135 Chloride Level 100 Carbon Dioxide Level 26 Anion Gap 9 Blood Urea Nitrogen 65 H Creatinine 1.98 H Est Glomerular Filtrat Rate mL/min 26 L Glucose Level 120 Calcium Level 8.1 L Home Meds Reported Medications Albuterol Sulfate* (Ventolin HFA*) 18 Gm Hfa.aer.ad, 2 PUFF INHALATION Q4H, #1 INHALER 05/26/18 Ergocalciferol (Vitamin D2) (VITAMIN D2) 50,000 Unit Capsule, 70973 UNIT PO D3HFPDA, CAP 05/23/18 Warfarin Sodium* (Coumadin*) 5 Mg Tablet, 5 MG PO Q TUES,THUR,SAT, TAB 05/23/18 Warfarin Sodium* (Coumadin*) 4 Mg Tablet, 4 MG PO Q MON,WED,FRI,SUN, TAB 05/23/18 Furosemide* (Furosemide*) 20 Mg Tablet, 20 MG PO DAILY, #60 TAB TAKE Q 2 DAYS 05/23/18 Simvastatin* (Zocor*) 20 Mg Tablet, 20 MG PO QHS, #30 TAB 05/23/18 Ranitidine Hcl* (Ranitidine Hcl*) 150 Mg Tablet, 150 MG PO HS, #30 TAB 05/23/18 Acetaminophen (Mapap) 500 Mg Capsule, 500 MG PO BID PRN for PAIN, CAP 05/23/18 Levothyroxine Sodium* (Levothyroxine Sodium*) 50 Mcg Tablet, 50 MCG PO BEFORE BREAKFAST, #30 TAB 05/23/18 Spironolactone* (Aldactone*) 25 Mg Tablet, 25 MG PO DAILY, #30 TAB 05/23/18 Beclomethasone Dipropionate (Qvar Redihaler (40 MCG)) 10.6 Gm Hfa.aeroba, 10.6 GM IH DAILY, INH 05/23/18 Amlodipine Besylate* (Norvasc*) 5 Mg Tablet, 5 MG PO BID, TAB 05/23/18 Losartan-Hydrochlorothiazide (Losartan-HCTZ) 100-25 Mg Tab, 1 TAB PO DAILY, TAB 05/23/18 Medications Current Medications Acetaminophen (Tylenol Tab) 650 mg Q4H PRN PO FEVER GREATER THAN 100.6 Last administered on 06/11/18 01:38; Admin Dose 650 MG; Start 05/27/18 at 11:30 Morphine Sulfate (morphine) 2 mg Q2H PRN IV FOR NON CARDIAC PAIN (4-10) Last administered on 06/07/18 19:36; Admin Dose 2 MG; Start 05/27/18 at 11:30 Al Hydrox/Mg Hydrox/Simethicone (Mag-Al Plus) 30 ml Q4H PRN PO GASTROINTESTINAL UPSET; Start 05/27/18 at 11:30 Ondansetron HCl (Zofran Inj) 4 mg Q4H PRN IV NAUSEA AND/OR VOMITING Last administered on 06/06/18 06:05; Admin Dose 4 MG; Start 05/27/18 at 11:30 Levothyroxine Sodium (Synthroid) 50 mcg BEFORE BREAKFAST PO Last administered on 06/12/18 06:40; Admin Dose 50 MCG; Start 05/30/18 at 07:00 Mometasone Furoate (Asmanex) 1 puff DAILY INH Last administered on 06/12/18 08:19; Admin Dose 1 PUFF; Start 05/29/18 at 11:00 Atorvastatin Calcium (Lipitor) 10 mg DAILY@21 PO Last administered on 06/11/18 20:47; Admin Dose 10 MG; Start 05/29/18 at 21:00 Latanoprost (Xalatan) 1 drop HS BOTH EYES Last administered on 06/11/18 20:51; Admin Dose 1 DROP; Start 06/01/18 at 21:00 Amlodipine Besylate (Norvasc) 5 mg DAILY PO ; Start 06/03/18 at 09:00; Status H old Pantoprazole (Protonix Tab) 40 mg DAILY@06 PO Last administered on 06/12/18 05:08; Admin Dose 40 MG; Start 06/05/18 at 06:00 Heparin Sodium (Porcine) (Heparin (1000 Units/ml)) 3,800 unit PER PROTOCOL PRN IV aPTT<47 Last administered on 3/2/19at 10:01; Admin Dose 3,800 UNIT; Start 06/04/18 at 19:00; Status Hold Heparin Sodium (Porcine) 250 ml @ 7.5 mls/hr PER PROTOCOL IV Last administered on 06/11/18 09:59; Admin Dose 9.6 MLS/HR; Start 06/04/18 at 19:00; Status Hold Metoclopramide HCl (Reglan) 5 mg TID PRN IV Nausea; Start 06/06/18 at 11:00 Senna/Docusate Sodium (Senokot-S) 2 tab BID PO Last administered on 06/10/18 20:21; Admin Dose 2 TAB; Start 06/06/18 at 21:00 Polyethylene Glycol (Miralax) 17 gm BID PRN PO CONSTIPATION; Start 06/06/18 at 14:00 Bisacodyl (Dulcolax Supp) 10 mg DAILY PRN [place] CONSTIPATION; Start 06/06/18 at 14:00 IV Flush (NS 10 ml) 10 ml PRN PRN IV IV PROTOCOL; Start 06/06/18 at 16:00 Nystatin (Nystatin Susp) 5 ml QID PO Last administered on 06/12/18 12:24; Admin Dose 5 ML; Start 06/06/18 at 17:00 Sevelamer Carbonate (Renvela) 800 mg WITH MEALS PO Last administered on 06/12/18 12:24; Admin Dose 800 MG; Start 06/08/18 at 07:35 Warfarin Sodium (Coumadin) 3 mg DAILY@17 PO Last administered on 06/11/18 17:09; Admin Dose 3 MG; Start 06/10/18 at 17:00 Assessment/Plan Hospital Course (Demo Recall) 1.cad s/p LHC with no sig obstructive cad - on med rx now - treated 2.HTN - treated 3.RP Bleed s/p transfusions now stable and tolerating heparin/coumadin loading. Then had recurrent bled overnight now s/p covered stent to LOADER OPERATOR/GROUND LEADER/Ext iliac. Stable collection by abd CT 06/06 but still with pigtail catheter in place - now more bleedig - back to ICU - heparin held - restart coumadin 4.HL 5.MVR-mechanical - stable by exam - soft click by exam 6.anemia- s/p repair of R LOADER OPERATOR/GROUND LEADER/illiac. Now stabilizing 7.Hypothyroid 8. FOURNIER-negative Head CT 9. Fevers-with positive ua 10. UTI 11.ARF-? Contrast induced/compression from hematoma- now improving with increased urine output and slowly decreasing Cr 1.98 - better now 12. Coagulopathy-likely secondary to coumadin 14. LE weakness-? compression from hematoma and exacerbated by femoral compression after cath 15. arterial insuff- LLE- s/p PROFESSOR OF COMMUNICATION AND WRITING/thrombolysis 06/04 successfully with palpable pulses/B DP/PT CECILIA MOCTEZUMA MD Jun 12, 2018 14:48
[2018-06-12] MEDS: WARFARIN 3 MG TAB PO SCH (17:10)
[2018-06-12] MEDS: LATANOPROST 0.005% 2.5 ML OPH BOTH EYES SCH (20:39)
[2018-06-12] MEDS: ATORVASTATIN 10 MG TAB PO SCH (20:39)
--- NOTE | 2018-06-12 22:22 | CONS ---
Assessment/Plan Assessment/Plan Hospital Course (Demo Recall) assessment/impression - severe sepsis due to UTI, improved - SIRS due to acute blood loss, improved - nasopharyngeal bleed on 06/11/2018, stopped after heparin was held - s/p UTI due to E. coli, resolved. 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, s/p covered stent placement 6 x 100 mm right common femoral artery and right external iliac artery, abdominal aortogram, catheter introduction to the abdominal aorta, JOSÉ MIGUEL guidance into the central artery 06/02/2018 - s/p retroperitoneal bleed - s/p acute anemia requiring PRBC - s/p CT guided placement of drainage catheter into pelvic hematoma 06/05/2018--> removed on 06/09/2018 - Oliguric FORREST - s/p L heart catheterization on 05/27/2018 showing no significant obstructive CAD - CAD s/p CABG in in 1982 - H/o MVR with mechanical valve, in 1999 - cholelithiasis without e/o acute cholecystitis - Hypertension - Hyperlipidemia - Hypothyroidism - asthma - s/p FOURNIER, resolved. CT head shows no acute findings recommendations: - continue to monitor Pt off systemic antibiotic. management d/w Pt's GONZALO Cobos the critical care time that I took to care for this Pt today was 30 min Consultation Date/Type/Reason Admit Date/Time May 28, 2018 at 17:52 Initial Consult Date 06/03/18 Type of Consult ID Requesting Provider: JULY VALENTIN MD Date/Time of Note DATE: 06/12/18 TIME: 22:20 24 HR Interval Summary Free Text/Dictation no acute events Subjective hx not possible: other (Pt was asleep) Exam/Review of Systems Exam Vitals Vital Signs Date Temp Pulse Resp B/P (MAP) Pulse Ox O2 O2 Flow FiO2 Time Delivery Rate 06/12/18 96 21 21:24 06/12/18 95 45 133/64 Room Air 21:00 (87) 06/12/18 99.0 20:00 06/12/18 2.0 05:30 Intake and Output 06/11/18 06/11/18 06/12/18 1515:00 23:00 07:00 IntakeIntake Total 547 ml 720 ml 60 ml OutputOutput Total 650 ml 645 ml 720 ml BalanceBalance -103 ml 75 ml -660 ml Constitutional: non-verbal, frail Psych: other (asleep) Head: normocephalic, atraumatic Eyes: nl lids ENMT: nl external ears & nose, nl nasal mucosa & septum, mucosa pink and moist Neck: other (not swollen) Respiratory: other (normal resp effort) Cardiovascular: edema Gastrointestinal: No distended Extremities: edema Neurological: other (asleep) Skin: ecchymosis Results Result Diagram: 06/12/18 0430 06/12/18 0430 Results 24hrs Laboratory Tests Test 06/12/18 04:30 White Blood Count 15.9 #H Red Blood Count 2.63 L Hemoglobin 8.1 L Hematocrit 24.5 L Mean Corpuscular Volume 93.2 Mean Corpuscular Hemoglobin 30.8 Mean Corpuscular Hemoglobin Concent 33.1 Red Cell Distribution Width 16.2 H Platelet Count 216 Mean Platelet Volume 10.0 Immature Granulocytes % 5.000 H Neutrophils % 84.0 H Lymphocytes % 4.8 L Monocytes % 5.2 Eosinophils % 0.8 Basophils % 0.2 Nucleated Red Blood Cells % 0.1 H Immature Granulocytes # 0.790 H Neutrophils # 13.4 H Lymphocytes # 0.8 Monocytes # 0.8 Eosinophils # 0.1 Basophils # 0.0 Nucleated Red Blood Cells # 0.0 Prothrombin Time 14.7 Prothrombin Time Ratio 1.1 INR International Normalized Ratio 1.14 Sodium Level 135 Potassium Level 3.8 Chloride Level 100 Carbon Dioxide Level 26 Anion Gap 9 Blood Urea Nitrogen 65 H Creatinine 1.98 H Est Glomerular Filtrat Rate mL/min 26 L Glucose Level 120 Calcium Level 8.1 L Magnesium Level 2.2 Medications Medication Current Medications Acetaminophen (Tylenol Tab) 650 mg Q4H PRN PO FEVER GREATER THAN 100.6 Last administered on 06/11/18at 01:38; Admin Dose 650 MG; Start 05/27/18 at 11:30 Morphine Sulfate (morphine) 2 mg Q2H PRN IV FOR NON CARDIAC PAIN (4-10) Last administered on 06/07/18at 19:36; Admin Dose 2 MG; Start 05/27/18 at 11:30 Al Hydrox/Mg Hydrox/Simethicone (Mag-Al Plus) 30 ml Q4H PRN PO GASTROINTESTINAL UPSET; Start 05/27/18 at 11:30 Ondansetron HCl (Zofran Inj) 4 mg Q4H PRN IV NAUSEA AND/OR VOMITING Last administered on 06/06/18 06:05; Admin Dose 4 MG; Start 05/27/18 at 11:30 Levothyroxine Sodium (Synthroid) 50 mcg BEFORE BREAKFAST PO Last administered on 06/12/18 06:40; Admin Dose 50 MCG; Start 05/30/18 at 07:00 Mometasone Furoate (Asmanex) 1 puff DAILY INH Last administered on 06/12/18 08:19; Admin Dose 1 PUFF; Start 05/29/18 at 11:00 Atorvastatin Calcium (Lipitor) 10 mg DAILY@21 PO Last administered on 06/12/18 20:39; Admin Dose 10 MG; Start 05/29/18 at 21:00 Latanoprost (Xalatan) 1 drop HS BOTH EYES Last administered on 06/12/18 20:39; Admin Dose 1 DROP; Start 06/01/18 at 21:00 Amlodipine Besylate (Norvasc) 5 mg DAILY PO ; Start 06/03/18 at 09:00; Status Hold Pantoprazole (Protonix Tab) 40 mg DAILY@06 PO Last administered on 06/12/18 05:08; Admin Dose 40 MG; Start 06/05/18 at 06:00 Heparin Sodium (Porcine) (Heparin (1000 Units/ml)) 3,800 unit PER PROTOCOL PRN IV aPTT<47 Last administered on 06/11/18 10:01; Admin Dose 3,800 UNIT; Start 06/04/18 at 19:00; Status Hold Heparin Sodium (Porcine) 250 ml @ 7.5 mls/hr PER PROTOCOL IV Last administered on 06/11/18 09:59; Admin Dose 9.6 MLS/HR; Start 06/04/18 at 19:00; Status Hold Metoclopramide HCl (Reglan) 5 mg TID PRN IV Nausea; Start 06/06/18 at 11:00 Senna/Docusate Sodium (Senokot-S) 2 tab BID PO Last administered on 06/12/18 20:39; Admin Dose 2 TAB; Start 06/06/18 at 21:00 Polyethylene Glycol (Miralax) 17 gm BID PRN PO CONSTIPATION; Start 06/06/18 at 14:00 Bisacodyl (Dulcolax Supp) 10 mg DAILY PRN [place] CONSTIPATION; Start 06/06/18 at 14:00 IV Flush (NS 10 ml) 10 ml PRN PRN IV IV PROTOCOL; Start 06/06/18 at 16:00 Nystatin (Nystatin Susp) 5 ml QID PO Last administered on 06/12/18at 20:39; Admin Dose 5 ML; Start 06/06/18 at 17:00 Sevelamer Carbonate (Renvela) 800 mg WITH MEALS PO Last administered on 06/12/18at 17:10; Admin Dose 800 MG; Start 06/08/18 at 07:35 Warfarin Sodium (Coumadin) 3 mg DAILY@17 PO Last administered on 06/12/18at 17:10; Admin Dose 3 MG; Start 06/10/18 at 17:00 SHARI CROWELL M.D. Jun 12, 2018 22:22
[2018-06-13] VITALS (23 sets, daily range): BP systolic 110–152; BP diastolic 56–75; PULSE 83–118; RESP 33–48
[2018-06-13] MEDS: PANTOPRAZOLE (EC) 40 MG TAB PO SCH (06:02)
[2018-06-13] MEDS: LEVOTHYROXINE 50 MCG TAB PO SCH (06:02)
[2018-06-13] MEDS: SEVELAMER CARBONATE 800 MG TABLET PO SCH ×3 (07:53→17:32)
--- NOTE | 2018-06-13 07:53 | PN ---
DATE: 06/13/2018 SUBJECTIVE: The patient is currently stable, no acute events noted overnight. Urinary output has be en adequate. No episodes of hemoptysis or hematemesis. OBJECTIVE: VITAL SIGNS: Blood pressure is 128/68, pulse is 109, respirations is 43, temperature 99.3. HEENT: Head is normocephalic. NECK: Supple. HEART: Regular rate. LUNGS: Show diminished breath sounds at the base. ABDOMEN: Soft, nontender to palpation without rebound or guarding. EXTREMITIES: Negative for clubbing, cyanosis, no edema. DERMATOLOGIC: No rashes. MUSCULOSKELETAL: No joint effusion. NEUROLOGIC: No change in exam. MEDICATIONS: Reviewed. LABORATORY DATA: Shows a sodium 134, potassium 3.9, BUN 46, creatinine 1.73. White count is 15.6, h emoglobin 7.7, platelet count is 206. IMAGING STUDY: Chest x-ray was reviewed. ASSESSMENT AND PLAN: 1. Nonoliguric acute kidney injury with previous baseline creatinine of 0.6 mg/dL. Etiology of acut e kidney injury is secondary to acute tubular necrosis. The patient's renal function continues to im prove as the patient is in recovery phase of acute tubular necrosis. At this point, continue current treatment plan, supportive care, renally dose all medicines. 2. Hypokalemia. Continue to monitor and replete as needed. 3. Anemia with episode of retroperitoneal bleed. The patient is status post blood transfusion. Con tinue to monitor hemoglobin and hematocrit levels. 4. Mineral bone disorder. Monitor calcium and phosphorus levels. 5. Coronary artery disease. Continue medical management. 6. Mechanical heart valve. Continue anticoagulation. Follow up with Cardiology. 7. Sepsis secondary to urinary tract infection. Continue current antibiotic regimen. 8. Hypothyroidism. Continue Synthroid. 9. Dyslipidemia. Continue statin therapy. 10. Hypertension. Continue current blood pressure regimen. 11. Volume overload. Continue intermittent diuretic therapy. 12. Intraabdominal hematoma. The patient is status post pigtail placement. Continue to monitor. 13. Epistaxis, etiology may be secondary to heparin and anticoagulation. We will continue to monito r closely. Dictated By: GWYN FABIAN DO NR/NTS Conf#: [id number] DID#: [id number] CC: JULY VALENTIN MD; CHRIS LAZAR MD; JOAQUIN DE LEON MD;*EndCC*
[2018-06-13] MEDS: SENNA/DOCUSATE NA (8.6MG/50MG) TAB PO SCH ×2 (09:00→21:00)
[2018-06-13] MEDS: NYSTATIN SUSP 5 ML CUP PO SCH ×4 (09:12→21:01)
[2018-06-13] MEDS: MOMETASONE 0.24 GM INHALER INH SCH (09:12)
--- NOTE | 2018-06-13 10:20 | CONS ---
Assessment/Plan Assessment/Plan Hospital Course (Demo Recall) IMP: 1.cad s/p LHC with no sig obstructive cad 2.HTN 3.RP Bleed s/p transfusions now stable and tolerating heparin/coumadin loading. Then had recurrent bled overnight now s/p covered stent to HEEL COVERER/Ext iliac. Stable collection by abd CT 06/06 but still with pigtail catheter in place 4.HL 5.MVR-mechanical 6.anemia- s/p repair of R HEEL COVERER/illiac. Now stabilizing 7.Hypothyroid 8. FOURNIER-negative Head CT 9. Fevers-with positive ua 10. UTI 11.ARF-? Contrast induced/compression from hematoma- now improving with increased urine output and slowly decreasing state pilot 12. Coagulopathy-likely secondary to coumadin 14. LE weakness-? compression from hematoma and exacerbated by femoral compression after cath 15. arterial insuff- LLE- s/p DEPARTMENT COORDINATOR/thrombolysis 06/04 successfully with palpable pulses/B DP/PT Recc: -Now on tele -holding norvasc still but with now stable BP -Continue statin -F/U urine cx -s/p course of abx's -ongoing ID f/u -Ongoing surgical f/u -F/U state pilot/K closely. Renal now following with patient making increased urine and slowly improving renal function. Holding off on HD. Give dose of albumin for third spaced fluids and lasix -s/p removal of abdominal catheter yesterday and thus will resume couamdin loading this evening -Will give dose albumin -increase coumadin and follow INR closely -trend HGb clsoely Consultation Date/Type/Reason Admit Date/Time May 28, 2018 at 17:52 Initial Consult Date 05/28/18 Type of Consult Cardiology Reason for Consultation cad/ Requesting Provider: JULY VALENTIN MD Date/Time of Note DATE: 06/13/18 TIME: 10:14 Exam/Review of Systems Vital Signs Vitals Vital Signs Date Temp Pulse Resp B/P (MAP) Pulse Ox O2 O2 Flow FiO2 Time Delivery Rate 06/13/18 98.7 101 43 119/64 99 Room Air 08:00 (82) 06/12/18 21 21:24 06/12/18 2.0 05:30 Intake and Output 06/12/18 06/12/18 06/13/18 1515:00 23:00 07:00 IntakeIntake Total 300 ml 220 ml 120 ml OutputOutput Total 575 ml 560 ml 725 ml BalanceBalance -275 ml -340 ml -605 ml Exam Exam Review of Systems: CONSTITUTIONAL: No fevers, chills. PULMONARY: No sob CARDIOVASCULAR: No chest pain/palpitations GASTROINTESTINAL: mild abd pain GENITOURINARY: No hematuria/dysuria. MUSCULOSKELETAL: No myagias/arthalgias. PSYCHIATRIC: The patient denies depression. NEUROLOGIC: No weakness Constitutional: alert Psych: no complaints Head: normocephalic ENMT: mucosa pink and moist Neck: supple, jvd (9 cm water) Respiratory: diminished breath sounds (at bases/B) Cardiovascular: regular rate and rhythm Gastrointestinal: soft, non-tender Musculoskeletal: muscle tone (normal) Extremities: pitting pedal edema (bilateral) Neurological: other (No focal deficiits) Labs Result Diagram: 06/13/18 0400 06/13/18 0400 Results 24hrs Laboratory Tests Test 06/13/18 04:00 06/13/18 05:42 White Blood Count 15.6 H Red Blood Count 2.49 L Hemoglobin 7.7 L Hematocrit 23.5 L Mean Corpuscular Volume 94.4 Mean Corpuscular Hemoglobin 30.9 Mean Corpuscular Hemoglobin Concent 32.8 Red Cell Distribution Width 15.9 H Platelet Count 206 Mean Platelet Volume 10.2 Immature Granulocytes % 3.000 H Neutrophils % 86.7 H Lymphocytes % 3.8 L Monocytes % 5.8 Eosinophils % 0.6 Basophils % 0.1 Nucleated Red Blood Cells % 0.0 Immature Granulocytes # 0.470 H Neutrophils # 13.5 H Lymphocytes # 0.6 L Monocytes # 0.9 Eosinophils # 0.1 Basophils # 0.0 Nucleated Red Blood Cells # 0.0 Prothrombin Time 15.7 H Prothrombin Time Ratio 1.2 INR International Normalized Ratio 1.24 Activated Partial Thromboplast Time 30.7 Sodium Level 134 L Potassium Level 3.9 Chloride Level 100 Carbon Dioxide Level 27 Anion Gap 7 Blood Urea Nitrogen 46 #H Creatinine 1.73 H Est Glomerular Filtrat Rate mL/min 30 L Glucose Level 132 Calcium Level 8.1 L Lab Scanned Report BLOOD TRANSFUSION Medications Medications Current Medications Acetaminophen (Tylenol Tab) 650 mg Q4H PRN PO FEVER GREATER THAN 100.6 Last administered on 3/2/19at 01:38; Admin Dose 650 MG; Start 05/27/18 at 11:30 Morphine Sulfate (morphine) 2 mg Q2H PRN IV FOR NON CARDIAC PAIN (4-10) Last administered on 06/07/18 19:36; Admin Dose 2 MG; Start 05/27/18 at 11:30 Al Hydrox/Mg Hydrox/Simethicone (Mag-Al Plus) 30 ml Q4H PRN PO GASTROINTESTINAL UPSET; Start 05/27/18 at 11:30 Ondansetron HCl (Zofran Inj) 4 mg Q4H PRN IV NAUSEA AND/OR VOMITING Last administered on 06/06/18 06:05; Admin Dose 4 MG; Start 05/27/18 at 11:30 Levothyroxine Sodium (Synthroid) 50 mcg BEFORE BREAKFAST PO Last administered on 06/13/18 06:02; Admin Dose 50 MCG; Start 05/30/18 at 07:00 Mometasone Furoate (Asmanex) 1 puff DAILY INH Last administered on 06/13/18 09:12; Admin Dose 1 PUFF; Start 05/29/18 at 11:00 Atorvastatin Calcium (Lipitor) 10 mg DAILY@21 PO Last administered on 06/12/18 20:39; Admin Dose 10 MG; Start 05/29/18 at 21:00 Latanoprost (Xalatan) 1 drop HS BOTH EYES Last administered on 06/12/18 20:39; Admin Dose 1 DROP; Start 06/01/18 at 21:00 Amlodipine Besylate (Norvasc) 5 mg DAILY PO ; Start 06/03/18 at 09:00; Status Hold Pantoprazole (Protonix Tab) 40 mg DAILY@06 PO Last administered on 06/13/18 06:02; Admin Dose 40 MG; Start 06/05/18 at 06:00 Heparin Sodium (Porcine) (Heparin (1000 Units/ml)) 3,800 unit PER PROTOCOL PRN IV aPTT<47 Last administered on 06/11/18 10:01; Admin Dose 3,800 UNIT; Start 06/04/18 at 19:00; Status Hold Heparin Sodium (Porcine) 250 ml @ 7.5 mls/hr PER PROTOCOL IV Last administered on 06/11/18 09:59; Admin Dose 9.6 MLS/HR; Start 06/04/18 at 19:00; Status Hold Metoclopramide HCl (Reglan) 5 mg TID PRN IV Nausea; Start 06/06/18 at 11:00 Senna/Docusate Sodium (Senokot-S) 2 tab BID PO Last administered on 06/12/18at 20:39; Admin Dose 2 TAB; Start 06/06/18 at 21:00 Polyethylene Glycol (Miralax) 17 gm BID PRN PO CONSTIPATION; Start 06/06/18 at 14:00 Bisacodyl (Dulcolax Supp) 10 mg DAILY PRN [place] CONSTIPATION; Start 06/06/18 at 14:00 IV Flush (NS 10 ml) 10 ml PRN PRN IV IV PROTOCOL; Start 06/06/18 at 16:00 Nystatin (Nystatin Susp) 5 ml QID PO Last administered on 06/13/18at 09:12; Admin Dose 5 ML; Start 06/06/18 at 17:00 Sevelamer Carbonate (Renvela) 800 mg WITH MEALS PO Last administered on 06/13/18at 07:53; Admin Dose 800 MG; Start 06/08/18 at 07:35 Warfarin Sodium (Coumadin) 3 mg DAILY@17 PO Last administered on 06/12/18at 17:10; Admin Dose 3 MG; Start 06/10/18 at 17:00 CHRIS LAZAR Jun 13, 2018 10:20
[2018-06-13] MEDS ORDERED: ALBUMIN HUMAN 25% 50 ML IV ONE (10:30)
[2018-06-13] MEDS ORDERED: METOPROLOL 5 MG INJ IV PRN (10:30)
[2018-06-13] MEDS ORDERED: DIGOXIN 500 MCG INJ IV ONE (10:30)
[2018-06-13] MEDS ORDERED: morphine LIQ (10 MG/5 ML) CUP PO PRN (11:30)
[2018-06-13] MEDS ORDERED: WARFARIN 2 MG TAB PO SCH (17:00)
[2018-06-13] MEDS ORDERED: WARFARIN 3 MG TAB PO SCH (17:00)
--- NOTE | 2018-06-13 18:03 | CONS ---
Assessment/Plan Assessment/Plan Hospital Course (Demo Recall) assessment/impression - severe sepsis due to UTI, improved - SIRS due to acute blood loss, improved - nasopharyngeal bleed on 06/11/2018, stopped after heparin was held - s/p UTI due to E. coli, resolved. 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, s/p covered stent placement 6 x 100 mm right common femoral artery and right external iliac artery, abdominal aortogram, catheter introduction to the abdominal aorta, JOSÉ MIGUEL guidance into the central artery 06/02/2018 - s/p retroperitoneal bleed - s/p acute anemia requiring PRBC - s/p CT guided placement of drainage catheter into pelvic hematoma 06/05/2018--> removed on 06/09/2018 - Oliguric FORREST - s/p L heart catheterization on 05/27/2018 showing no significant obstructive CAD - CAD s/p CABG in in 1982 - H/o MVR with mechanical valve, in 1999 - cholelithiasis without e/o acute cholecystitis - Hypertension - Hyperlipidemia - Hypothyroidism - asthma - s/p FOURNIER, resolved. CT head shows no acute findings - leukocytosis recommendations: - ordered: CXR, repeat doppler JOSÉ MIGUEL to r/o DVT (Pt c/o L calf pain), blood culture and lactic acid in AM - continue to monitor Pt off systemic antibiotic. management d/w Pt, her RN Sofya, son and the critical care time that I took to care for this Pt today was from 1730 to 1800 Consultation Date/Type/Reason Admit Date/Time May 28, 2018 at 17:52 Initial Consult Date 06/03/18 Type of Consult ID Requesting Provider: JULY VALENTIN MD Date/Time of Note DATE: 06/13/18 TIME: 17:58 24 HR Interval Summary Constitutional: no complaints Detailed Summary Eyes: no complaints ENT: no complaints Respiratory: no complaints Cardiovascular: no complaints Gastrointestinal: no complaints Genitourinary: other (FC) Musculoskeletal: restricted range of motion Skin: no complaints Neurologic: other (weak) Exam/Review of Systems Exam Vitals Vital Signs Date Temp Pulse Resp B/P (MAP) Pulse Ox O2 O2 Flow FiO2 Time Delivery Rate 06/13/18 97 44 134/64 97 Room Air 17:00 (87) 06/13/18 98.1 16:00 06/12/18 21 21:24 06/12/18 2.0 05:30 Intake and Output 06/12/18 06/12/18 06/13/18 1414:59 22:59 06:59 IntakeIntake Total 300 ml 220 ml 120 ml OutputOutput Total 550 ml 585 ml 750 ml BalanceBalance -250 ml -365 ml -630 ml Constitutional: frail Psych: no complaints Head: normocephalic, atraumatic Eyes: nl conjunctiva, nl lids ENMT: nl external ears & nose, nl nasal mucosa & septum Neck: supple, other (not swollen) Respiratory: clear to auscultation Cardiovascular: regular rate and rhythm, nl pulses, edema Gastrointestinal: soft, non-tender Musculoskeletal: nl extremities to inspection Extremities: edema (lower extremities) Neurological: [employer] II-XII intact, nl mental status, nl speech, confused Skin: ecchymosis Results Result Diagram: 06/13/18 1658 06/13/18 0400 Results 24hrs Laboratory Tests Test 06/13/18 04:00 06/13/18 05:42 06/13/18 15:43 06/13/18 16:58 White Blood Count 15.6 H 15.0 H Red Blood Count 2.49 L 2.39 L Hemoglobin 7.7 L 7.5 L 7.7 L Hematocrit 23.5 L 23.1 L 23.2 L Mean Corpuscular 94.4 96.7 Volume Mean Corpuscular 30.9 31.4 Hemoglobin Mean Corpuscular 32.8 32.5 Hemoglobin Concent Red Cell 15.9 H 15.9 H Distribution Width Platelet Count 206 189 Mean Platelet 10.2 9.9 Volume Immature 3.000 H 2.700 H Granulocytes % Neutrophils % 86.7 H 87.3 H Lymphocytes % 3.8 L 3.5 L Monocytes % 5.8 5.7 Eosinophils % 0.6 0.5 Basophils % 0.1 0.3 Nucleated Red Blood 0.0 0.0 Cells % Immature 0.470 H 0.400 H Granulocytes # Neutrophils # 13.5 H 13.1 H Lymphocytes # 0.6 L 0.5 L Monocytes # 0.9 0.9 Eosinophils # 0.1 0.1 Basophils # 0.0 0.0 Nucleated Red Blood 0.0 0.0 Cells # Prothrombin Time 15.7 H Prothrombin Time 1.2 Ratio INR International 1.24 Normalized Ratio Activated 30.7 Partial Thromboplas t Time Sodium Level 134 L Potassium Level 3.9 Chloride Level 100 Carbon Dioxide 27 Level Anion Gap 7 Blood Urea Nitrogen 46 #H Creatinine 1.73 H Est Glomerular 30 L Filtrat Rate mL/min Glucose Level 132 Calcium Level 8.1 L Lab Scanned Report BLOOD TRANSFUSION Medications Medication Current Medications Acetaminophen (Tylenol Tab) 650 mg Q4H PRN PO FEVER GREATER THAN 100.6 Last administered on 06/11/18 01:38; Admin Dose 650 MG; Start 05/27/18 at 11:30 Al Hydrox/Mg Hydrox/Simethicone (Mag-Al Plus) 30 ml Q4H PRN PO GASTROINTESTINAL UPSET; Start 05/27/18 at 11:30 Ondansetron HCl (Zofran Inj) 4 mg Q4H PRN IV NAUSEA AND/OR VOMITING Last administered on 06/06/18 06:05; Admin Dose 4 MG; Start 05/27/18 at 11:30 Levothyroxine Sodium (Synthroid) 50 mcg BEFORE BREAKFAST PO Last administered on 06/13/18 06:02; Admin Dose 50 MCG; Start 05/30/18 at 07:00 Mometasone Furoate (Asmanex) 1 puff DAILY INH Last administered on 06/13/18 09:12; Admin Dose 1 PUFF; Start 05/29/18 at 11:00 Atorvastatin Calcium (Lipitor) 10 mg DAILY@21 PO Last administered on 06/12/18 20:39; Admin Dose 10 MG; Start 05/29/18 at 21:00 Latanoprost (Xalatan) 1 drop HS BOTH EYES Last administered on 06/12/18 20:39; Admin Dose 1 DROP; Start 06/01/18 at 21:00 Amlodipine Besylate (Norvasc) 5 mg DAILY PO ; Start 06/03/18 at 09:00; Status Hold Pantoprazole (Protonix Tab) 40 mg DAILY@06 PO Last administered on 06/13/18 06:02; Admin Dose 40 MG; Start 06/05/18 at 06:00 Heparin Sodium (Porcine) (Heparin (1000 Units/ml)) 3,800 unit PER PROTOCOL PRN IV aPTT<47 Last administered on 06/11/18 10:01; Admin Dose 3,800 UNIT; Start 06/04/18 at 19:00; Status Hold Heparin Sodium (Porcine) 250 ml @ 7.5 mls/hr PER PROTOCOL IV Last administered on 06/11/18 09:59; Admin Dose 9.6 MLS/HR; Start 06/04/18 at 19:00; Status Hold Metoclopramide HCl (Reglan) 5 mg TID PRN IV Nausea; Start 06/06/18 at 11:00 Senna/Docusate Sodium (Senokot-S) 2 tab BID PO Last administered on 06/12/18 20:39; Admin Dose 2 TAB; Start 06/06/18 at 21:00 Polyethylene Glycol (Miralax) 17 gm BID PRN PO CONSTIPATION; Start 06/06/18 at 14:00 Bisacodyl (Dulcolax Supp) 10 mg DAILY PRN [place] CONSTIPATION; Start 06/06/18 at 14:00 IV Flush (NS 10 ml) 10 ml PRN PRN IV IV PROTOCOL; Start 06/06/18 at 16:00 Nystatin (Nystatin Susp) 5 ml QID PO Last administered on 06/13/18 17:32; Admin Dose 5 ML; Start 06/06/18 at 17:00 Sevelamer Carbonate (Renvela) 800 mg WITH MEALS PO Last administered on 06/13/18 17:32; Admin Dose 800 MG; Start 06/08/18 at 07:35 Metoprolol Tartrate (Lopressor) 25 mg BID PO ; Start 06/13/18 at 21:00 Metoprolol Tartrate (Lopressor) 5 mg Q4H PRN IV HR>110 Hold SBP<100; Start 06/13/18 at 10:30 Morphine Sulfate (morphine) 6 mg Q2H PRN PO FOR NON CARDIAC PAIN (4-10); Start 06/13/18 at 11:30 Warfarin Sodium (Coumadin) 4 mg DAILY@17 PO Last administered on 06/13/18 17:32; Admin Dose 4 MG; Start 06/13/18 at 17:00 SHARI CROWELL M.D. Jun 13, 2018 18:03
--- NOTE | 2018-06-13 18:29 | PN ---
Date/Time of Note Date/Time of Note DATE: 06/13/18 TIME: 18:22 Assessment/Plan VTE Prophylaxis Risk score (from Ns)>0 risk: 13 SCD applied (from Ns): Yes Pharmacological prophylaxis: warfarin tx Lines/Catheters IV Catheter Type [facility]from [facility]): PICC Line Central line still needed: Yes Urinary Cath still in place: Yes Reason Cath still needed: urinary retention Assessment/Plan Hospital Course Patient is complains of mild left lower quadrant abdominal pain and right lower extremity currently undergoing ultrasound of lower extremities to rule out DVT no nosebleed or melena per RN. Assessment/Plan -Nose/oropharyngeal bleed. Heparin is on hold. -Recent retroperitoneal bleed secondary to vascular injury status post stent placement. Monitor H and H. Dr. Kilpatrick is following in vascular surgery consultation. -Leukocytosis, Dr. Castellanos is following in infection disease consultation. Patient is off antibiotics. -Status post left heart catheterization with no significant obstructive coronary artery disease by Dr. Moreno on 05/27/2018. -Anemia of acute blood loss, status post blood transfusion, continue to monitor hemoglobin and hematocrit. -Status post mitral valve replacement with mechanical valve in 1999 in [facility]. Continue Coumadin. -HTN, continue metoprolol -Hyperlipidemia -Hypothyroidism, continue levothyroxine -History of asthma Critical care time spent is 30 minutes. Further recommendations based on clinical course. Plan of care discussed with Dr. Painter. Result Diagram: 06/13/18 1658 06/13/18 0400 Results 24hrs Laboratory Tests Test 06/13/18 04:00 06/13/18 05:42 06/13/18 15:43 06/13/18 16:58 White Blood Count 15.6 H 15.0 H Red Blood Count 2.49 L 2.39 L Hemoglobin 7.7 L 7.5 L 7.7 L Hematocrit 23.5 L 23.1 L 23.2 L Mean Corpuscular 94.4 96.7 Volume Mean Corpuscular 30.9 31.4 Hemoglobin Mean Corpuscular 32.8 32.5 Hemoglobin Concent Red Cell 15.9 H 15.9 H Distribution Width Platelet Count 206 189 Mean Platelet 10.2 9.9 Volume Immature 3.000 H 2.700 H Granulocytes % Neutrophils % 86.7 H 87.3 H Lymphocytes % 3.8 L 3.5 L Monocytes % 5.8 5.7 Eosinophils % 0.6 0.5 Basophils % 0.1 0.3 Nucleated Red Blood 0.0 0.0 Cells % Immature 0.470 H 0.400 H Granulocytes # Neutrophils # 13.5 H 13.1 H Lymphocytes # 0.6 L 0.5 L Monocytes # 0.9 0.9 Eosinophils # 0.1 0.1 Basophils # 0.0 0.0 Nucleated Red Blood 0.0 0.0 Cells # Prothrombin Time 15.7 H Prothrombin Time 1.2 Ratio INR International 1.24 Normalized Ratio Activated 30.7 Partial Thromboplas t Time Sodium Level 134 L Potassium Level 3.9 Chloride Level 100 Carbon Dioxide 27 Level Anion Gap 7 Blood Urea Nitrogen 46 #H Creatinine 1.73 H Est Glomerular 30 L Filtrat Rate mL/min Glucose Level 132 Calcium Level 8.1 L Lab Scanned Report BLOOD TRANSFUSION Exam/Review of Systems Exam Vitals Vital Signs Date Temp Pulse Resp B/P (MAP) Pulse Ox O2 O2 Flow FiO2 Time Delivery Rate 06/13/18 97 44 134/64 97 Room Air 17:00 (87) 06/13/18 98.1 16:00 06/12/18 21 21:24 06/12/18 2.0 05:30 Intake and Output 06/12/18 06/12/18 06/13/18 1515:00 23:00 07:00 IntakeIntake Total 300 ml 220 ml 120 ml OutputOutput Total 575 ml 560 ml 725 ml BalanceBalance -275 ml -340 ml -605 ml Exam Constitutional: alert, oriented Respiratory: clear to auscultation Cardiovascular: regular rate and rhythm Gastrointestinal: soft, non-tender Musculoskeletal: nl extremities to inspection Extremities: normal pulses Neurological: nl mental status Results Results 24hrs Laboratory Tests Test 06/13/18 04:00 06/13/18 05:42 06/13/18 15:43 06/13/18 16:58 White Blood Count 15.6 H 15.0 H Red Blood Count 2.49 L 2.39 L Hemoglobin 7.7 L 7.5 L 7.7 L Hematocrit 23.5 L 23.1 L 23.2 L Mean Corpuscular 94.4 96.7 Volume Mean Corpuscular 30.9 31.4 Hemoglobin Mean Corpuscular 32.8 32.5 Hemoglobin Concent Red Cell 15.9 H 15.9 H Distribution Width Platelet Count 206 189 Mean Platelet 10.2 9.9 Volume Immature 3.000 H 2.700 H Granulocytes % Neutrophils % 86.7 H 87.3 H Lymphocytes % 3.8 L 3.5 L Monocytes % 5.8 5.7 Eosinophils % 0.6 0.5 Basophils % 0.1 0.3 Nucleated Red Blood 0.0 0.0 Cells % Immature 0.470 H 0.400 H Granulocytes # Neutrophils # 13.5 H 13.1 H Lymphocytes # 0.6 L 0.5 L Monocytes # 0.9 0.9 Eosinophils # 0.1 0.1 Basophils # 0.0 0.0 Nucleated Red Blood 0.0 0.0 Cells # Prothrombin Time 15.7 H Prothrombin Time 1.2 Ratio INR International 1.24 Normalized Ratio Activated 30.7 Partial Thromboplas t Time Sodium Level 134 L Potassium Level 3.9 Chloride Level 100 Carbon Dioxide 27 Level Anion Gap 7 Blood Urea Nitrogen 46 #H Creatinine 1.73 H Est Glomerular 30 L Filtrat Rate mL/min Glucose Level 132 Calcium Level 8.1 L Lab Scanned Report BLOOD TRANSFUSION Medications Medication Current Medications Acetaminophen (Tylenol Tab) 650 mg Q4H PRN PO FEVER GREATER THAN 100.6 Last administered on 06/11/18 01:38; Admin Dose 650 MG; Start 05/27/18 at 11:30 Al Hydrox/Mg Hydrox/Simethicone (Mag-Al Plus) 30 ml Q4H PRN PO GASTROINTESTINAL UPSET; Start 05/27/18 at 11:30 Ondansetron HCl (Zofran Inj) 4 mg Q4H PRN IV NAUSEA AND/OR VOMITING Last administered on 06/06/18 06:05; Admin Dose 4 MG; Start 05/27/18 at 11:30 Levothyroxine Sodium (Synthroid) 50 mcg BEFORE BREAKFAST PO Last administered on 06/13/18 06:02; Admin Dose 50 MCG; Start 05/30/18 at 07:00 Mometasone Furoate (Asmanex) 1 puff DAILY INH Last administered on 06/13/18 09:12; Admin Dose 1 PUFF; Start 05/29/18 at 11:00 Atorvastatin Calcium (Lipitor) 10 mg DAILY@21 PO Last administered on 06/12/18 20:39; Admin Dose 10 MG; Start 05/29/18 at 21:00 Latanoprost (Xalatan) 1 drop HS BOTH EYES Last administered on 06/12/18 20:39; Admin Dose 1 DROP; Start 06/01/18 at 21:00 Amlodipine Besylate (Norvasc) 5 mg DAILY PO ; Start 06/03/18 at 09:00; Status Hold Pantoprazole (Protonix Tab) 40 mg DAILY@06 PO Last administered on 06/13/18 06:02; Admin Dose 40 MG; Start 06/05/18 at 06:00 Heparin Sodium (Porcine) (Heparin (1000 Units/ml)) 3,800 unit PER PROTOCOL PRN IV aPTT<47 Last administered on 06/11/18 10:01; Admin Dose 3,800 UNIT; Start 06/04/18 at 19:00; Status Hold Heparin Sodium (Porcine) 250 ml @ 7.5 mls/hr PER PROTOCOL IV Last administered on 06/11/18 09:59; Admin Dose 9.6 MLS/HR; Start 06/04/18 at 19:00; Status Hold Metoclopramide HCl (Reglan) 5 mg TID PRN IV Nausea; Start 06/06/18 at 11:00 Senna/Docusate Sodium (Senokot-S) 2 tab BID PO Last administered on 06/12/18 20:39; Admin Dose 2 TAB; Start 06/06/18 at 21:00 Polyethylene Glycol (Miralax) 17 gm BID PRN PO CONSTIPATION; Start 06/06/18 at 14:00 Bisacodyl (Dulcolax Supp) 10 mg DAILY PRN [place] CONSTIPATION; Start 06/06/18 at 14:00 IV Flush (NS 10 ml) 10 ml PRN PRN IV IV PROTOCOL; Start 06/06/18 at 16:00 Nystatin (Nystatin Susp) 5 ml QID PO Last administered on 06/13/18 17:32; Admin Dose 5 ML; Start 06/06/18 at 17:00 Sevelamer Carbonate (Renvela) 800 mg WITH MEALS PO Last administered on 06/13/18 17:32; Admin Dose 800 MG; Start 06/08/18 at 07:35 Metoprolol Tartrate (Lopressor) 25 mg BID PO ; Start 06/13/18 at 21:00 Metoprolol Tartrate (Lopressor) 5 mg Q4H PRN IV HR>110 Hold SBP<100; Start 06/13/18 at 10:30 Morphine Sulfate (morphine) 6 mg Q2H PRN PO FOR NON CARDIAC PAIN (4-10); Start 06/13/18 at 11:30 Warfarin Sodium (Coumadin) 4 mg DAILY@17 PO Last administered on 06/13/18at 17:32; Admin Dose 4 MG; Start 06/13/18 at 17:00 KRISTY MCCULLOUGH Jun 13, 2018 18:29
[2018-06-13] MEDS: LATANOPROST 0.005% 2.5 ML OPH BOTH EYES SCH (21:01)
[2018-06-13] MEDS: ATORVASTATIN 10 MG TAB PO SCH (21:01)
[2018-06-13] MEDS: METOPROLOL 25 MG TAB PO SCH (21:02)
[2018-06-14] VITALS (24 sets, daily range): BP systolic 118–141; BP diastolic 52–72; PULSE 77–94; RESP 28–50
[2018-06-14] MEDS: PANTOPRAZOLE (EC) 40 MG TAB PO SCH (06:06)
[2018-06-14] MEDS: LEVOTHYROXINE 50 MCG TAB PO SCH ×2 (06:06→09:59)
[2018-06-14] MEDS ORDERED: FUROSEMIDE 20 MG INJ IV ONE ×2 (08:00→18:00)
--- NOTE | 2018-06-14 08:11 | PN ---
DATE: 06/14/2018 SUBJECTIVE: The patient is stable, no events overnight. No episodes of bleeding. OBJECTIVE: VITAL SIGNS: Blood pressure is 131/56, respirations 28, pulse 78, temperature 98.8. HEENT: Head is normocephalic. NECK: Supple. HEART: Regular rate. LUNGS: Show diminished breath sounds at the base. ABDOMEN: Soft, nontender to palpation without rebound or guarding. EXTREMITIES: Negative for clubbing, cyanosis, positive edema. DERMATOLOGIC: No rashes. MUSCULOSKELETAL: No joint effusion. NEUROLOGIC: No change in exam. MEDICATIONS: Reviewed. LABORATORY DATA: Shows sodium 135, potassium 4.2, BUN 35, creatinine 1.51. White count 12.6, hemogl obin 7.2, platelet count is 194. The patient's extremities are negative for DVT. Chest x-ray was re viewed. ASSESSMENT AND PLAN: 1. Nonoliguric acute kidney injury with previous baseline creatinine of 0.6 mg/dL. Etiology of acut e kidney injury was secondary to acute tubular necrosis. The patient's renal function continues to i mprove. Continue current treatment plans, supportive care, renally dose all medicines. 2. Volume overload. We will give the patient Lasix 20 mg IV x1. Monitor renal function, electrolyt es closely. 3. Hyponatremia secondary to acute kidney injury causing decreased free water urinary excretion. Co ntinue to monitor. 4. Anemia with episode of retroperitoneal bleed, status post blood transfusion, monitor hemoglobin a nd hematocrit levels. 5. Mineral bone disorder, monitor calcium and phosphorus levels. 6. Hypokalemia, improved. 7. Coronary artery disease. Continue medical management. 8. Mechanical heart valve. Continue anticoagulation. Followup with Cardiology. 9. Sepsis secondary to urinary tract infection. Continue current antibiotic regimen. 10. Hypothyroidism. Continue Synthroid. 11. Dyslipidemia. Continue statin therapy. 12. Hypertension. Continue current blood pressure regimen. 13. Intraabdominal hematoma. The patient is status post pigtail placement. Continue to monitor. 14. Epistaxis secondary to heparin, anticoagulation, improved. Continue to monitor. Dictated By: GWYN FABIAN DO NR/NTS Conf#: [id number] DID#: [id number] CC: CHRIS LAZAR MD; JOAQUIN DE LEON MD; JULY VALENTIN MD;*EndCC*
--- NOTE | 2018-06-14 08:44 | CONS ---
Consult Date/Type/Reason Admit Date/Time May 28, 2018 at 17:52 Initial Consult Date Type of Consultation: Urology Requesting Provider: JULY VALENTIN MD Date/Time of Note DATE: 06/14/18 TIME: 08:41 Subjective NO acute events - pt feels better overall - phuong cP now, mild SOB - increase Coumadin to 5 mg tonight with more rapid titration. ROS: No fever, no chills, no nausea, no vomiting, no diarrhea/constipation No recent weight changes No chest pain, no PND, no orthopnea - mild SOB No dizziness, blurred vision No thirst, no heat or cold intolerance Objective Vitals Vital Signs Date Temp Pulse Resp B/P (MAP) Pulse Ox O2 O2 Flow FiO2 Time Delivery Rate 06/14/18 86 08:00 06/14/18 28 131/56 99 Room Air 07:00 (81) 06/14/18 98.8 04:00 06/12/18 21 21:24 06/12/18 2.0 05:30 Intake and Output 06/13/18 06/13/18 06/14/18 1414:59 22:59 06:59 IntakeIntake Total 650 ml 360 ml 240 ml OutputOutput Total 825 ml 750 ml 650 ml BalanceBalance -175 ml -390 ml -410 ml Exam General: WN/WD/NAD, AOx 3 HEENT: Unicetric/atraumatic/EOMI (follow commands) NECK: JVD elevated, no thyromegaly Lymph: no lymphadenopathy HEART: regular with no S3, II/ systolic murmur at apex, mech click LUNGS: Coarse sounds ABD: soft, NT, ND, +BS : Intact Neuro: non focal SKIN: chronic changes EXT: trace edema Results/Medications Result Diagram: 06/14/18 0500 06/14/18 0500 Results 24 hrs Laboratory Tests Test 06/13/18 15:43 06/13/18 16:58 06/14/18 05:00 White Blood Count 15.0 H 12.6 H Red Blood Count 2.39 L 2.34 L Hemoglobin 7.5 L 7.7 L 7.2 L Hematocrit 23.1 L 23.2 L 22.7 L Mean Corpuscular Volume 96.7 97.0 Mean Corpuscular Hemoglobin 31.4 30.8 Mean Corpuscular Hemoglobin Concent 32.5 31.7 L Red Cell Distribution Width 15.9 H 15.9 H Platelet Count 189 200 Mean Platelet Volume 9.9 9.7 Immature Granulocytes % 2.700 H 2.100 H Neutrophils % 87.3 H 86.9 H Lymphocytes % 3.5 L 4.0 L Monocytes % 5.7 6.1 Eosinophils % 0.5 0.7 Basophils % 0.3 0.2 Nucleated Red Blood Cells % 0.0 0.0 Immature Granulocytes # 0.400 H 0.270 H Neutrophils # 13.1 H 10.9 H Lymphocytes # 0.5 L 0.5 L Monocytes # 0.9 0.8 Eosinophils # 0.1 0.1 Basophils # 0.0 0.0 Nucleated Red Blood Cells # 0.0 0.0 Prothrombin Time 16.3 H Prothrombin Time Ratio 1.3 INR International Normalized Ratio 1.30 Activated Partial Thromboplast Time 31.6 Thrombin Time 15.2 Sodium Level 134 L Potassium Level 4.3 Chloride Level 100 Carbon Dioxide Level 25 Anion Gap 9 Blood Urea Nitrogen 35 #H Creatinine 1.51 H Est Glomerular Filtrat Rate mL/min 35 L Glucose Level 131 Lactic Acid Level 1.6 Calcium Level 8.2 L Phosphorus Level 3.8 Magnesium Level 1.7 Home Meds Reported Medications Albuterol Sulfate* (Ventolin HFA*) 18 Gm Hfa.aer.ad, 2 PUFF INHALATION Q4H, #1 INHALER 05/26/18 Ergocalciferol (Vitamin D2) (VITAMIN D2) 50,000 Unit Capsule, 50146 UNIT PO [id number], CAP 05/23/18 Warfarin Sodium* (Coumadin*) 5 Mg Tablet, 5 MG PO Q TUES,THUR,SAT, TAB 05/23/18 Warfarin Sodium* (Coumadin*) 4 Mg Tablet, 4 MG PO Q MON,WED,FRI,SUN, TAB 05/23/18 Furosemide* (Furosemide*) 20 Mg Tablet, 20 MG PO DAILY, #60 TAB TAKE Q 2 DAYS 05/23/18 Simvastatin* (Zocor*) 20 Mg Tablet, 20 MG PO QHS, #30 TAB 05/23/18 Ranitidine Hcl* (Ranitidine Hcl*) 150 Mg Tablet, 150 MG PO HS, #30 TAB 05/23/18 Acetaminophen (Mapap) 500 Mg Capsule, 500 MG PO BID PRN for PAIN, CAP 05/23/18 Levothyroxine Sodium* (Levothyroxine Sodium*) 50 Mcg Tablet, 50 MCG PO BEFORE BREAKFAST, #30 TAB 05/23/18 Spironolactone* (Aldactone*) 25 Mg Tablet, 25 MG PO DAILY, #30 TAB 05/23/18 Beclomethasone Dipropionate (Qvar Redihaler (40 MCG)) 10.6 Gm Hfa.aeroba, 10.6 GM IH DAILY, INH 05/23/18 Amlodipine Besylate* (Norvasc*) 5 Mg Tablet, 5 MG PO BID, TAB 05/23/18 Losartan-Hydrochlorothiazide (Losartan-HCTZ) 100-25 Mg Tab, 1 TAB PO DAILY, TAB 05/23/18 Medications Current Medications Acetaminophen (Tylenol Tab) 650 mg Q4H PRN PO FEVER GREATER THAN 100.6 Last administered on 06/11/18 01:38; Admin Dose 650 MG; Start 05/27/18 at 11:30 Al Hydrox/Mg Hydrox/Simethicone (Mag-Al Plus) 30 ml Q4H PRN PO GASTROINTESTINAL UPSET; Start 05/27/18 at 11:30 Ondansetron HCl (Zofran Inj) 4 mg Q4H PRN IV NAUSEA AND/OR VOMITING Last administered on 06/06/18at 06:05; Admin Dose 4 MG; Start 05/27/18 at 11:30 Levothyroxine Sodium (Synthroid) 50 mcg BEFORE BREAKFAST PO Last administered on 06/14/18 06:06; Admin Dose 50 MCG; Start 05/30/18 at 07:00 Mometasone Furoate (Asmanex) 1 puff DAILY INH Last administered on 06/13/18 09:12; Admin Dose 1 PUFF; Start 05/29/18 at 11:00 Atorvastatin Calcium (Lipitor) 10 mg DAILY@21 PO Last administered on 06/13/18 21:01; Admin Dose 10 MG; Start 05/29/18 at 21:00 Latanoprost (Xalatan) 1 drop HS BOTH EYES Last administered on 06/13/18 21:01; Admin Dose 1 DROP; Start 06/01/18 at 21:00 Amlodipine Besylate (Norvasc) 5 mg DAILY PO ; Start 06/03/18 at 09:00; Status Hold Pantoprazole (Protonix Tab) 40 mg DAILY@06 PO Last administered on 06/14/18 06:06; Admin Dose 40 MG; Start 06/05/18 at 06:00 Heparin Sodium (Porcine) (Heparin (1000 Units/ml)) 3,800 unit PER PROTOCOL PRN IV aPTT<47 Last administered on 06/11/18 10:01; Admin Dose 3,800 UNIT; Start 06/04/18 at 19:00; Status Hold Heparin Sodium (Porcine) 250 ml @ 7.5 mls/hr PER PROTOCOL IV Last administered on 06/11/18 09:59; Admin Dose 9.6 MLS/HR; Start 06/04/18 at 19:00; Status Hold Metoclopramide HCl (Reglan) 5 mg TID PRN IV Nausea; Start 06/06/18 at 11:00 Senna/Docusate Sodium (Senokot-S) 2 tab BID PO Last administered on 06/12/18 20:39; Admin Dose 2 TAB; Start 06/06/18 at 21:00 Polyethylene Glycol (Miralax) 17 gm BID PRN PO CONSTIPATION; Start 06/06/18 at 14:00 Bisacodyl (Dulcolax Supp) 10 mg DAILY PRN [place] CONSTIPATION; Start 06/06/18 at 14:00 IV Flush (NS 10 ml) 10 ml PRN PRN IV IV PROTOCOL; Start 06/06/18 at 16:00 Nystatin (Nystatin Susp) 5 ml QID PO Last administered on 06/13/18 21:01; Admin Dose 5 ML; Start 06/06/18 at 17:00 Sevelamer Carbonate (Renvela) 800 mg WITH MEALS PO Last administered on 06/13/18 17:32; Admin Dose 800 MG; Start 06/08/18 at 07:35 Metoprolol Tartrate (Lopressor) 25 mg BID PO Last administered on 06/13/18 21:02; Admin Dose 25 MG; Start 06/13/18 at 21:00 Metoprolol Tartrate (Lopressor) 5 mg Q4H PRN IV HR>110 Hold SBP<100; Start 06/13/18 at 10:30 Morphine Sulfate (morphine) 6 mg Q2H PRN PO FOR NON CARDIAC PAIN (4-10); Start 06/13/18 at 11:30 Warfarin Sodium (Coumadin) 4 mg DAILY@17 PO Last administered on 06/13/18at 17:32; Admin Dose 4 MG; Start 06/13/18 at 17:00 Assessment/Plan Hospital Course (Demo Recall) 1.cad s/p LHC with no sig obstructive cad - on med rx now - treated 2.HTN - treated - well Rx 3.RP Bleed s/p transfusions now stable and tolerating heparin/coumadin loading. Then had recurrent bled overnight now s/p covered stent to INNERSOLE MAKER/Ext iliac. Stable collection by abd CT 06/06 but still with pigtail catheter in place - now more bleedig - back to ICU - heparin held - restart coumadin - increase dose to 5 tonight 4.HL 5.MVR-mechanical - stable by exam - soft click by exam - stable 6.anemia- s/p repair of R INNERSOLE MAKER/illiac. Now stabilizing 7.Hypothyroid 8. FOURNIER-negative Head CT 9. Fevers-with positive ua 10. UTI 11.ARF-? Contrast induced/compression from hematoma- now improving with inc reased urine output and slowly decreasing Cr 1.98 - better now 12. Coagulopathy-likely secondary to coumadin 14. LE weakness-? compression from hematoma and exacerbated by femoral compression after cath 15. arterial insuff- LLE- s/p PROGRAM ENGAGEMENT DIRECTOR/thrombolysis 06/04 successfully with palpable pulses/B DP/PT CECILIA MOCTEZUMA MD Jun 14, 2018 08:43
[2018-06-14] MEDS: SENNA/DOCUSATE NA (8.6MG/50MG) TAB PO SCH ×3 (09:00→21:00)
[2018-06-14] MEDS: SEVELAMER CARBONATE 800 MG TABLET PO SCH ×3 (09:58→17:35)
[2018-06-14] MEDS: METOPROLOL 25 MG TAB PO SCH ×2 (09:58→20:46)
[2018-06-14] MEDS: NYSTATIN SUSP 5 ML CUP PO SCH ×4 (09:59→20:46)
[2018-06-14] MEDS: MOMETASONE 0.24 GM INHALER INH SCH (13:11)
--- NOTE | 2018-06-14 14:40 | CONS ---
Assessment/Plan Assessment/Plan Hospital Course (Demo Recall) assessment/impression - severe sepsis due to UTI, improved - SIRS due to acute blood loss, improved - nasopharyngeal bleed on 06/11/2018, stopped after heparin was held - s/p UTI due to E. coli, resolved. 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, s/p covered stent placement 6 x 100 mm right common femoral artery and right external iliac artery, abdominal aortogram, catheter introduction to the abdominal aorta, JOSÉ MIGUEL guidance into the central artery 06/02/2018 - s/p retroperitoneal bleed - s/p acute anemia requiring PRBC - s/p CT guided placement of drainage catheter into pelvic hematoma 06/05/2018--> removed on 06/09/2018 - Oliguric FORREST - s/p L heart catheterization on 05/27/2018 showing no significant obstructive CAD - CAD s/p CABG in in 1982 - H/o MVR with mechanical valve, in 1999 - cholelithiasis without e/o acute cholecystitis - Hypertension - Hyperlipidemia - Hypothyroidism - asthma - s/p FOURNIER, resolved. CT head shows no acute findings - leukocytosis - venous JOSÉ MIGUEL of b/l LE was negative for DVT recommendations: - pending results: blood cultures from 06/14/2018 - continue to monitor Pt off systemic antibiotic. management d/w Pt and her RN Cassie critical care time: 30 min Consultation Date/Type/Reason Admit Date/Time May 28, 2018 at 17:52 Initial Consult Date 06/03/18 Type of Consult ID Requesting Provider: JULY VALENTIN MD Date/Time of Note DATE: 06/14/18 TIME: 14:39 Exam/Review of Systems Exam Vitals Vital Signs Date Temp Pulse Resp B/P (MAP) Pulse Ox O2 O2 Flow FiO2 Time Delivery Rate 06/14/18 98.9 77 46 130/59 99 Room Air 13:00 (82) 06/12/18 21 21:24 06/12/18 2.0 05:30 Intake and Output 06/13/18 06/13/18 06/14/18 1515:00 23:00 07:00 IntakeIntake Total 770 ml 240 ml 300 ml OutputOutput Total 900 ml 725 ml 625 ml BalanceBalance -130 ml -485 ml -325 ml Results Result Diagram: 06/14/18 0500 06/14/18 0500 Results 24hrs Laboratory Tests Test 06/13/18 15:43 06/13/18 16:58 06/14/18 05:00 White Blood Count 15.0 H 12.6 H Red Blood Count 2.39 L 2.34 L Hemoglobin 7.5 L 7.7 L 7.2 L Hematocrit 23.1 L 23.2 L 22.7 L Mean Corpuscular Volume 96.7 97.0 Mean Corpuscular Hemoglobin 31.4 30.8 Mean Corpuscular Hemoglobin Concent 32.5 31.7 L Red Cell Distribution Width 15.9 H 15.9 H Platelet Count 189 200 Mean Platelet Volume 9.9 9.7 Immature Granulocytes % 2.700 H 2.100 H Neutrophils % 87.3 H 86.9 H Lymphocytes % 3.5 L 4.0 L Monocytes % 5.7 6.1 Eosinophils % 0.5 0.7 Basophils % 0.3 0.2 Nucleated Red Blood Cells % 0.0 0.0 Immature Granulocytes # 0.400 H 0.270 H Neutrophils # 13.1 H 10.9 H Lymphocytes # 0.5 L 0.5 L Monocytes # 0.9 0.8 Eosinophils # 0.1 0.1 Basophils # 0.0 0.0 Nucleated Red Blood Cells # 0.0 0.0 Prothrombin Time 16.3 H Prothrombin Time Ratio 1.3 INR International Normalized Ratio 1.30 Activated Partial Thromboplast Time 31.6 Thrombin Time 15.2 Sodium Level 134 L Potassium Level 4.3 Chloride Level 100 Carbon Dioxide Level 25 Anion Gap 9 Blood Urea Nitrogen 35 #H Creatinine 1.51 H Est Glomerular Filtrat Rate mL/min 35 L Glucose Level 131 Lactic Acid Level 1.6 Calcium Level 8.2 L Phosphorus Level 3.8 Magnesium Level 1.7 Medications Medication Current Medications Acetaminophen (Tylenol Tab) 650 mg Q4H PRN PO FEVER GREATER THAN 100.6 Last administered on 06/11/18at 01:38; Admin Dose 650 MG; Start 05/27/18 at 11:30 Al Hydrox/Mg Hydrox/Simethicone (Mag-Al Plus) 30 ml Q4H PRN PO GASTROINTESTINAL UPSET; Start 05/27/18 at 11:30 Ondansetron HCl (Zofran Inj) 4 mg Q4H PRN IV NAUSEA AND/OR VOMITING Last administered on 06/06/18 06:05; Admin Dose 4 MG; Start 05/27/18 at 11:30 Levothyroxine Sodium (Synthroid) 50 mcg BEFORE BREAKFAST PO Last administered on 06/14/18 09:59; Admin Dose 50 MCG; Start 05/30/18 at 07:00 Mometasone Furoate (Asmanex) 1 puff DAILY INH Last administered on 06/14/18 13:11; Admin Dose 1 PUFF; Start 05/29/18 at 11:00 Atorvastatin Calcium (Lipitor) 10 mg DAILY@21 PO Last administered on 06/13/18 21:01; Admin Dose 10 MG; Start 05/29/18 at 21:00 Latanoprost (Xalatan) 1 drop HS BOTH EYES Last administered on 06/13/18 21:01; Admin Dose 1 DROP; Start 06/01/18 at 21:00 Amlodipine Besylate (Norvasc) 5 mg DAILY PO ; Start 06/03/18 at 09:00; Status Hold Pantoprazole (Protonix Tab) 40 mg DAILY@06 PO Last administered on 06/14/18 06:06; Admin Dose 40 MG; Start 06/05/18 at 06:00 Heparin Sodium (Porcine) (Heparin (1000 Units/ml)) 3,800 unit PER PROTOCOL PRN IV aPTT<47 Last administered on 06/11/18 10:01; Admin Dose 3,800 UNIT; Start 06/04/18 at 19:00; Status Hold Heparin Sodium (Porcine) 250 ml @ 7.5 mls/hr PER PROTOCOL IV Last administered on 06/11/18 09:59; Admin Dose 9.6 MLS/HR; Start 06/04/18 at 19:00; Status Hold Metoclopramide HCl (Reglan) 5 mg TID PRN IV Nausea; Start 06/06/18 at 11:00 Senna/Docusate Sodium (Senokot-S) 2 tab BID PO Last administered on 06/12/18 20:39; Admin Dose 2 TAB; Start 06/06/18 at 21:00 Polyethylene Glycol (Miralax) 17 gm BID PRN PO CONSTIPATION; Start 06/06/18 at 14:00 Bisacodyl (Dulcolax Supp) 10 mg DAILY PRN [place] CONSTIPATION; Start 06/06/18 at 14:00 IV Flush (NS 10 ml) 10 ml PRN PRN IV IV PROTOCOL; Start 06/06/18 at 16:00 Nystatin (Nystatin Susp) 5 ml QID PO Last administered on 06/14/18at 13:02; Admin Dose 5 ML; Start 06/06/18 at 17:00 Sevelamer Carbonate (Renvela) 800 mg WITH MEALS PO Last administered on 06/14/18at 13:11; Admin Dose 800 MG; Start 06/08/18 at 07:35 Metoprolol Tartrate (Lopressor) 25 mg BID PO Last administered on 06/14/18at 09:58; Admin Dose 25 MG; Start 06/13/18 at 21:00 Metoprolol Tartrate (Lopressor) 5 mg Q4H PRN IV HR>110 Hold SBP<100; Start 06/13/18 at 10:30 Morphine Sulfate (morphine) 6 mg Q2H PRN PO FOR NON CARDIAC PAIN (4-10); Start 06/13/18 at 11:30 Warfarin Sodium (Coumadin) 5 mg DAILY@17 PO ; Start 06/14/18 at 17:00 SHARI CROWELL M.D. Jun 14, 2018 14:40
--- NOTE | 2018-06-14 15:20 | CONS ---
Assessment/Plan Assessment/Plan Hospital Course (Demo Recall) assessment/impression - severe sepsis due to UTI, improved - SIRS due to acute blood loss, improved - nasopharyngeal bleed on 06/11/2018, stopped after heparin was held - s/p UTI due to E. coli, resolved. 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, s/p covered stent placement 6 x 100 mm right common femoral artery and right external iliac artery, abdominal aortogram, catheter introduction to the abdominal aorta, JOSÉ MIGUEL guidance into the central artery 06/02/2018 - s/p retroperitoneal bleed - s/p acute anemia requiring PRBC - s/p CT guided placement of drainage catheter into pelvic hematoma 06/05/2018--> removed on 06/09/2018 - Oliguric FORREST - s/p L heart catheterization on 05/27/2018 showing no significant obstructive CAD - CAD s/p CABG in in 1982 - H/o MVR with mechanical valve, in 1999 - cholelithiasis without e/o acute cholecystitis - Hypertension - Hyperlipidemia - Hypothyroidism - asthma - s/p FOURNIER, resolved. CT head shows no acute findings - leukocytosis - venous JOSÉ MIGUEL of b/l LE was negative for DVT recommendations: - pending results: blood cultures from 06/14/2018 - continue to monitor Pt off systemic antibiotic. management d/w Pt and her RN Cassie critical care time: 30 min Consultation Date/Type/Reason Admit Date/Time May 28, 2018 at 17:52 Initial Consult Date 06/03/18 Type of Consult ID Requesting Provider: JULY VALENTIN MD Date/Time of Note DATE: 06/14/18 TIME: 15:15 24 HR Interval Summary Constitutional: improved Detailed Summary Respiratory: no complaints Gastrointestinal: other ("a little pain" of b/l flank) Genitourinary: other (FC) Exam/Review of Systems Exam Vitals Vital Signs Date Temp Pulse Resp B/P (MAP) Pulse Ox O2 O2 Flow FiO2 Time Delivery Rate 06/14/18 98.9 77 46 130/59 99 Room Air 13:00 (82) 06/12/18 21 21:24 06/12/18 2.0 05:30 Intake and Output 06/13/18 06/13/18 06/14/18 1515:00 23:00 07:00 IntakeIntake Total 770 ml 240 ml 300 ml OutputOutput Total 900 ml 725 ml 625 ml BalanceBalance -130 ml -485 ml -325 ml Constitutional: frail Psych: no complaints Head: normocephalic, atraumatic Eyes: nl conjunctiva, nl lids, nl sclera ENMT: nl external ears & nose, nl nasal mucosa & septum, mucosa pink and moist Neck: supple Respiratory: clear to auscultation, normal air movement Cardiovascular: regular rate and rhythm, nl pulses, edema Gastrointestinal: soft, non-tender; No distended Genitourinary - Female: other Musculoskeletal: nl extremities to inspection Extremities: edema Neurological: ROTARY DRILLER II-XII intact, nl mental status, nl speech Skin: nl turgor, ecchymosis Results Result Diagram: 06/14/18 0500 06/14/18 0500 Results 24hrs Laboratory Tests Test 06/13/18 15:43 06/13/18 16:58 06/14/18 05:00 White Blood Count 15.0 H 12.6 H Red Blood Count 2.39 L 2.34 L Hemoglobin 7.5 L 7.7 L 7.2 L Hematocrit 23.1 L 23.2 L 22.7 L Mean Corpuscular Volume 96.7 97.0 Mean Corpuscular Hemoglobin 31.4 30.8 Mean Corpuscular Hemoglobin Concent 32.5 31.7 L Red Cell Distribution Width 15.9 H 15.9 H Platelet Count 189 200 Mean Platelet Volume 9.9 9.7 Immature Granulocytes % 2.700 H 2.100 H Neutrophils % 87.3 H 86.9 H Lymphocytes % 3.5 L 4.0 L Monocytes % 5.7 6.1 Eosinophils % 0.5 0.7 Basophils % 0.3 0.2 Nucleated Red Blood Cells % 0.0 0.0 Immature Granulocytes # 0.400 H 0.270 H Neutrophils # 13.1 H 10.9 H Lymphocytes # 0.5 L 0.5 L Monocytes # 0.9 0.8 Eosinophils # 0.1 0.1 Basophils # 0.0 0.0 Nucleated Red Blood Cells # 0.0 0.0 Prothrombin Time 16.3 H Prothrombin Time Ratio 1.3 INR International Normalized Ratio 1.30 Activated Partial Thromboplast Time 31.6 Thrombin Time 15.2 Sodium Level 134 L Potassium Level 4.3 Chloride Level 100 Carbon Dioxide Level 25 Anion Gap 9 Blood Urea Nitrogen 35 #H Creatinine 1.51 H Est Glomerular Filtrat Rate mL/min 35 L Glucose Level 131 Lactic Acid Level 1.6 Calcium Level 8.2 L Phosphorus Level 3.8 Magnesium Level 1.7 Medications Medication Current Medications Acetaminophen (Tylenol Tab) 650 mg Q4H PRN PO FEVER GREATER THAN 100.6 Last administered on 06/11/18 01:38; Admin Dose 650 MG; Start 05/27/18 at 11:30 Al Hydrox/Mg Hydrox/Simethicone (Mag-Al Plus) 30 ml Q4H PRN PO GASTROINTESTINAL UPSET; Start 05/27/18 at 11:30 Ondansetron HCl (Zofran Inj) 4 mg Q4H PRN IV NAUSEA AND/OR VOMITING Last ad ministered on 06/06/18 06:05; Admin Dose 4 MG; Start 05/27/18 at 11:30 Levothyroxine Sodium (Synthroid) 50 mcg BEFORE BREAKFAST PO Last administered on 06/14/18 09:59; Admin Dose 50 MCG; Start 05/30/18 at 07:00 Mometasone Furoate (Asmanex) 1 puff DAILY INH Last administered on 06/14/18 13:11; Admin Dose 1 PUFF; Start 05/29/18 at 11:00 Atorvastatin Calcium (Lipitor) 10 mg DAILY@21 PO Last administered on 06/13/18 21:01; Admin Dose 10 MG; Start 05/29/18 at 21:00 Latanoprost (Xalatan) 1 drop HS BOTH EYES Last administered on 06/13/18 21:01; Admin Dose 1 DROP; Start 06/01/18 at 21:00 Amlodipine Besylate (Norvasc) 5 mg DAILY PO ; Start 06/03/18 at 09:00; Status Hold Pantoprazole (Protonix Tab) 40 mg DAILY@06 PO Last administered on 06/14/18 06:06; Admin Dose 40 MG; Start 06/05/18 at 06:00 Heparin Sodium (Porcine) (Heparin (1000 Units/ml)) 3,800 unit PER PROTOCOL PRN IV aPTT<47 Last administered on 06/11/18 10:01; Admin Dose 3,800 UNIT; Start 06/04/18 at 19:00; Status Hold Heparin Sodium (Porcine) 250 ml @ 7.5 mls/hr PER PROTOCOL IV Last administered on 06/11/18 09:59; Admin Dose 9.6 MLS/HR; Start 06/04/18 at 19:00; Status Hold Metoclopramide HCl (Reglan) 5 mg TID PRN IV Nausea; Start 06/06/18 at 11:00 Senna/Docusate Sodium (Senokot-S) 2 tab BID PO Last administered on 06/12/18 20:39; Admin Dose 2 TAB; Start 06/06/18 at 21:00 Polyethylene Glycol (Miralax) 17 gm BID PRN PO CONSTIPATION; Start 06/06/18 at 14:00 Bisacodyl (Dulcolax Supp) 10 mg DAILY PRN [place] CONSTIPATION; Start 06/06/18 at 14:00 IV Flush (NS 10 ml) 10 ml PRN PRN IV IV PROTOCOL; Start 06/06/18 at 16:00 Nystatin (Nystatin Susp) 5 ml QID PO Last administered on 06/14/18 13:02; Admin Dose 5 ML; Start 06/06/18 at 17:00 Sevelamer Carbonate (Renvela) 800 mg WITH MEALS PO Last administered on 06/14/18 13:11; Admin Dose 800 MG; Start 06/08/18 at 07:35 Metoprolol Tartrate (Lopressor) 25 mg BID PO Last administered on 06/14/18 09:58; Admin Dose 25 MG; Start 06/13/18 at 21:00 Metoprolol Tartrate (Lopressor) 5 mg Q4H PRN IV HR>110 Hold SBP<100; Start 06/13/18 at 10:30 Morphine Sulfate (morphine) 6 mg Q2H PRN PO FOR NON CARDIAC PAIN (4-10); Start 06/13/18 at 11:30 Warfarin Sodium (Coumadin) 5 mg DAILY@17 PO ; Start 06/14/18 at 17:00 SHARI CROWELL M.D. Jun 14, 2018 15:20
--- NOTE | 2018-06-14 16:57 | PN ---
Date/Time of Note Date/Time of Note DATE: 06/14/18 TIME: 16:53 Assessment/Plan VTE Prophylaxis Risk score (from Ns)>0 risk: 11 SCD applied (from Ns): Yes Pharmacological prophylaxis: warfarin tx Lines/Catheters IV Catheter Type (from Nrs): PICC Line Central line still needed: Yes Urinary Cath still in place: Yes Reason Cath still needed: urinary retention Assessment/Plan Hospital Course Patient is tachypneic, complains of shortness of breath on exertion, denies any chest pain. Patient undergoing blood transfusion for hemoglobin of 7.2, chest x-ray from the morning with increased cardiopulmonary congestion and small bilateral pleural effusions, status post Lasix today, patient complains of shortness of breath on exertion. No nosebleed or hematemesis, Coumadin increased to 5 mg continue to monitor PT and INR. Assessment/Plan -Nose/oropharyngeal bleed. Heparin is on hold. -Recent retroperitoneal bleed secondary to vascular injury status post stent placement. Monitor H and H. Dr. Kilpatrick is following in vascular surgery consultation. -Leukocytosis, Dr. Castellanos is following in infection disease consultation. Patient is off antibiotics. -Status post left heart catheterization with no significant obstructive coronary artery disease by Dr. Moreno on 05/27/2018. -Anemia of acute blood loss, status post blood transfusion, continue to monitor hemoglobin and hematocrit. -Status post mitral valve replacement with mechanical valve in 1999 in [facility]. Continue Coumadin, monitor PT/INR. -HTN, continue metoprolol -Hyperlipidemia -Hypothyroidism, continue levothyroxine -History of asthma Critical care time spent is 30 minutes. Further recommendations based on clinical course. Plan of care discussed with Dr. Painter. Result Diagram: 06/14/18 0500 06/14/18 0500 Results 24hrs Laboratory Tests Test 06/13/18 16:58 06/14/18 05:00 Hemoglobin 7.7 L 7.2 L Hematocrit 23.2 L 22.7 L White Blood Count 12.6 H Red Blood Count 2.34 L Mean Corpuscular Volume 97.0 Mean Corpuscular Hemoglobin 30.8 Mean Corpuscular Hemoglobin Concent 31.7 L Red Cell Distribution Width 15.9 H Platelet Count 200 Mean Platelet Volume 9.7 Immature Granulocytes % 2.100 H Neutrophils % 86.9 H Lymphocytes % 4.0 L Monocytes % 6.1 Eosinophils % 0.7 Basophils % 0.2 Nucleated Red Blood Cells % 0.0 Immature Granulocytes # 0.270 H Neutrophils # 10.9 H Lymphocytes # 0.5 L Monocytes # 0.8 Eosinophils # 0.1 Basophils # 0.0 Nucleated Red Blood Cells # 0.0 Prothrombin Time 16.3 H Prothrombin Time Ratio 1.3 INR International Normalized Ratio 1.30 Activated Partial Thromboplast Time 31.6 Thrombin Time 15.2 Sodium Level 134 L Potassium Level 4.3 Chloride Level 100 Carbon Dioxide Level 25 Anion Gap 9 Blood Urea Nitrogen 35 #H Creatinine 1.51 H Est Glomerular Filtrat Rate mL/min 35 L Glucose Level 131 Lactic Acid Level 1.6 Calcium Level 8.2 L Phosphorus Level 3.8 Magnesium Level 1.7 Exam/Review of Systems Exam Vitals Vital Signs Date Temp Pulse Resp B/P (MAP) Pulse Ox O2 O2 Flow FiO2 Time Delivery Rate 06/14/18 98.9 77 46 130/59 99 Room Air 13:00 (82) 06/12/18 21 21:24 06/12/18 2.0 05:30 Intake and Output 06/13/18 06/13/18 06/14/18 1515:00 23:00 07:00 IntakeIntake Total 770 ml 240 ml 300 ml OutputOutput Total 900 ml 725 ml 625 ml BalanceBalance -130 ml -485 ml -325 ml Exam Constitutional: alert, oriented Respiratory: clear to auscultation Cardiovascular: regular rate and rhythm Gastrointestinal: soft, non-tender Musculoskeletal: nl extremities to inspection Extremities: normal pulses Neurological: nl mental status Results Results 24hrs Laboratory Tests Test 06/13/18 16:58 06/14/18 05:00 Hemoglobin 7.7 L 7.2 L Hematocrit 23.2 L 22.7 L White Blood Count 12.6 H Red Blood Count 2.34 L Mean Corpuscular Volume 97.0 Mean Corpuscular Hemoglobin 30.8 Mean Corpuscular Hemoglobin Concent 31.7 L Red Cell Distribution Width 15.9 H Platelet Count 200 Mean Platelet Volume 9.7 Immature Granulocytes % 2.100 H Neutrophils % 86.9 H Lymphocytes % 4.0 L Monocytes % 6.1 Eosinophils % 0.7 Basophils % 0.2 Nucleated Red Blood Cells % 0.0 Immature Granulocytes # 0.270 H Neutrophils # 10.9 H Lymphocytes # 0.5 L Monocytes # 0.8 Eosinophils # 0.1 Basophils # 0.0 Nucleated Red Blood Cells # 0.0 Prothrombin Time 16.3 H Prothrombin Time Ratio 1.3 INR International Normalized Ratio 1.30 Activated Partial Thromboplast Time 31.6 Thrombin Time 15.2 Sodium Level 134 L Potassium Level 4.3 Chloride Level 100 Carbon Dioxide Level 25 Anion Gap 9 Blood Urea Nitrogen 35 #H Creatinine 1.51 H Est Glomerular Filtrat Rate mL/min 35 L Glucose Level 131 Lactic Acid Level 1.6 Calcium Level 8.2 L Phosphorus Level 3.8 Magnesium Level 1.7 Medications Medication Current Medications Acetaminophen (Tylenol Tab) 650 mg Q4H PRN PO FEVER GREATER THAN 100.6 Last administered on 06/11/18 01:38; Admin Dose 650 MG; Start 05/27/18 at 11:30 Al Hydrox/Mg Hydrox/Simethicone (Mag-Al Plus) 30 ml Q4H PRN PO GASTROINTESTINAL UPSET; Start 05/27/18 at 11:30 Ondansetron HCl (Zofran Inj) 4 mg Q4H PRN IV NAUSEA AND/OR VOMITING Last administered on 06/06/18 06:05; Admin Dose 4 MG; Start 05/27/18 at 11:30 Levothyroxine Sodium (Synthroid) 50 mcg BEFORE BREAKFAST PO Last administered on 06/14/18 09:59; Admin Dose 50 MCG; Start 05/30/18 at 07:00 Mometasone Furoate (Asmanex) 1 puff DAILY INH Last administered on 06/14/18 13:11; Admin Dose 1 PUFF; Start 05/29/18 at 11:00 Atorvastatin Calcium (Lipitor) 10 mg DAILY@21 PO Last administered on 06/13/18 21:01; Admin Dose 10 MG; Start 05/29/18 at 21:00 Latanoprost (Xalatan) 1 drop HS BOTH EYES Last administered on 06/13/18 21:01; Admin Dose 1 DROP; Start 06/01/18 at 21:00 Amlodipine Besylate (Norvasc) 5 mg DAILY PO ; Start 06/03/18 at 09:00; Status Hold Pantoprazole (Protonix Tab) 40 mg DAILY@06 PO Last administered on 06/14/18 06:06; Admin Dose 40 MG; Start 06/05/18 at 06:00 Heparin Sodium (Porcine) (Heparin (1000 Units/ml)) 3,800 unit PER PROTOCOL PRN IV aPTT<47 Last administered on 06/11/18 10:01; Admin Dose 3,800 UNIT; Start 06/04/18 at 19:00; Status Hold Heparin Sodium (Porcine) 250 ml @ 7.5 mls/hr PER PROTOCOL IV Last administered on 06/11/18 09:59; Admin Dose 9.6 MLS/HR; Start 06/04/18 at 19:00; Status Hold Metoclopramide HCl (Reglan) 5 mg TID PRN IV Nausea; Start 06/06/18 at 11:00 Senna/Docusate Sodium (Senokot-S) 2 tab BID PO Last administered on 06/12/18 20:39; Admin Dose 2 TAB; Start 06/06/18 at 21:00 Polyethylene Glycol (Miralax) 17 gm BID PRN PO CONSTIPATION; Start 06/06/18 at 14:00 Bisacodyl (Dulcolax Supp) 10 mg DAILY PRN [place] CONSTIPATION; Start 06/06/18 at 14:00 IV Flush (NS 10 ml) 10 ml PRN PRN IV IV PROTOCOL; Start 06/06/18 at 16:00 Nystatin (Nystatin Susp) 5 ml QID PO Last administered on 06/14/18 13:02; Admin Dose 5 ML; Start 06/06/18 at 17:00 Sevelamer Carbonate (Renvela) 800 mg WITH MEALS PO Last administered on 06/14/18 13:11; Admin Dose 800 MG; Start 06/08/18 at 07:35 Metoprolol Tartrate (Lopressor) 25 mg BID PO Last administered on 06/14/18 09:58; Admin Dose 25 MG; Start 06/13/18 at 21:00 Metoprolol Tartrate (Lopressor) 5 mg Q4H PRN IV HR>110 Hold SBP<100; Start 06/13/18 at 10:30 Morphine Sulfate (morphine) 6 mg Q2H PRN PO FOR NON CARDIAC PAIN (4-10); Start 06/13/18 at 11:30 Warfarin Sodium (Coumadin) 5 mg DAILY@17 PO ; Start 06/14/18 at 17:00 KRISTY MCCULLOUGH Jun 14, 2018 16:57
[2018-06-14] MEDS: WARFARIN 5 MG TAB PO SCH (19:10)
[2018-06-14] MEDS: ATORVASTATIN 10 MG TAB PO SCH (20:45)
[2018-06-14] MEDS: LATANOPROST 0.005% 2.5 ML OPH BOTH EYES SCH (20:45)
[2018-06-15] VITALS (25 sets, daily range): BP systolic 116–149; BP diastolic 51–79; PULSE 74–85; RESP 30–50
[2018-06-15] MEDS: LEVOTHYROXINE 50 MCG TAB PO SCH (05:57)
[2018-06-15] MEDS: PANTOPRAZOLE (EC) 40 MG TAB PO SCH (05:57)
--- NOTE | 2018-06-15 07:54 | PN ---
DATE: 06/15/2018 SUBJECTIVE: The patient remains stable. No events overnight. No fevers, chills, nausea, or vomitin g. OBJECTIVE: VITAL SIGNS: Blood pressure is 137/58, respirations 21, pulse 78, temperature 98.5. HEENT: Head is normocephalic. NECK: Supple. HEART: Regular rate. LUNGS: Show diminished breath sounds at the base. ABDOMEN: Soft, nontender to palpation. No rebound or guarding. EXTREMITIES: Negative for clubbing, cyanosis. Positive edema. DERMATOLOGIC: No rashes. MUSCULOSKELETAL: No joint effusion. NEUROLOGIC: No change in exam. MEDICATIONS: Reviewed. LABORATORY DATA: White count 10.3, hemoglobin 8.5, platelet count 203. Sodium 137, potassium 3.9, B UN 31, creatinine 1.40, magnesium is 1.6. The patient's microbiology has been reviewed. IMAGING STUDY: Chest x-ray from 06/14/2018 was reviewed. ASSESSMENT AND PLAN: 1. Nonoliguric acute kidney injury with previous baseline creatinine of 0.6 mg/dL. Etiology of acut e kidney injury is secondary to acute tubular necrosis. Renal function is improved. Continue to mon itor. 2. Volume overload. The patient has noted lower extremity edema. Chest x-ray shows congestion. Co ntinue diuretic therapy, Lasix 20 mg daily. 3. Hypernatremia, resolved. Continue to monitor. 4. Anemia. Continue to monitor hemoglobin and hematocrit levels. 5. Mineral bone disorder. Monitor calcium and phosphorus levels. 6. Hypokalemia, improved. 7. Coronary artery disease. Continue medical management. 8. Mechanical heart valve. Continue anticoagulation. 9. Sepsis secondary to urinary tract infection. Continue current antibiotic regimen. 10. Hypothyroidism. Continue Synthroid. 11. Dyslipidemia. Continue statin therapy. 12. Hypertension. Continue current blood pressure regimen. 13. Intraabdominal hematoma, improving. The patient is status post pigtail placement. 14. Epistaxis, likely secondary to heparin, resolved. 15. Hypomagnesemia. We will replete with magnesium sulfate. Dictated By: GWYN FABIAN DO NR/NTS Conf#: [id number] DID#: [id number] CC: JOAQUIN DE LEON MD; JULY VALENTIN MD; CHRIS LAZAR MD;*EndCC*
[2018-06-15] MEDS ORDERED: MAGNESIUM SULFATE 2 GM/50 ML 50 ML IVPB ONE (08:00)
[2018-06-15] MEDS: SEVELAMER CARBONATE 800 MG TABLET PO SCH ×3 (08:06→17:24)
[2018-06-15] MEDS: NYSTATIN SUSP 5 ML CUP PO SCH ×5 (08:06→20:57)
[2018-06-15] MEDS: SENNA/DOCUSATE NA (8.6MG/50MG) TAB PO SCH ×3 (08:07→20:57)
[2018-06-15] MEDS: MOMETASONE 0.24 GM INHALER INH SCH (08:07)
[2018-06-15] MEDS: METOPROLOL 25 MG TAB PO SCH ×3 (08:07→20:57)
[2018-06-15] MEDS ORDERED: FUROSEMIDE 20 MG INJ IV SCH (09:00)
--- NOTE | 2018-06-15 10:06 | CONS ---
Assessment/Plan Assessment/Plan Hospital Course (Demo Recall) IMP: 1.cad s/p LHC with no sig obstructive cad 2.HTN 3.RP Bleed s/p transfusions now stable and tolerating heparin/coumadin loading. Then had recurrent bled overnight now s/p covered stent to [employer]/Ext iliac. Stable collection by abd CT 06/06 but still with pigtail catheter in place 4.HL 5.MVR-mechanical 6.anemia- s/p repair of R [employer]AMES/illiac. Had hemoptysis with subsequent drop in Hgb again and holding of heparin. Now improved 7.Hypothyroid 8. FOURNIER-negative Head CT 9. Fevers-with positive ua 10. UTI 11.ARF-? Contrast induced/compression from hematoma- now improving with increased urine output and slowly decreasing distillation operator 12. Coagulopathy-being re loaded on coumadin 14. LE weakness-? compression from hematoma and exacerbated by femoral compression after cath-now resolved 15. arterial insuff- LLE- s/p [employer]/thrombolysis 06/04 successfully with palpable pulses/B DP/PT and remain that way 16. PAF/AFL-rate controlled Recc: -In ICU -Now on BB with well controlled Hr's -Continue statin -F/U urine cx -s/p course of abx's -ongoing ID f/u -Ongoing surgical f/u -F/U distillation operator/K closely. Renal now following. Now placed on daily lasix. Follow output/distillation operator -Continue coumadin and follow INR closely -after checking INR will likely resume heparin slowly unless has increased considerably -trend HGb clsoely Consultation Date/Type/Reason Admit Date/Time May 28, 2018 at 17:52 Initial Consult Date 05/28/18 Type of Consult Cardiology Reason for Consultation /cad Requesting Provider: JULY VALENTIN MD Date/Time of Note DATE: 06/15/18 TIME: 10:01 Exam/Review of Systems Vital Signs Vitals Vital Signs Date Temp Pulse Resp B/P (MAP) Pulse Ox O2 O2 Flow FiO2 Time Delivery Rate 06/15/18 78 44 135/62 96 Room Air 09:00 (86) 06/15/18 99.1 08:00 06/12/18 21 21:24 06/12/18 2.0 05:30 Intake and Output 06/14/18 06/14/18 06/15/18 1515:00 23:00 07:00 IntakeIntake Total 240 ml 590 ml 180 ml OutputOutput Total 625 ml 775 ml 775 ml BalanceBalance -385 ml -185 ml -595 ml Exam Exam Review of Systems: CONSTITUTIONAL: No fevers, chills. PULMONARY: No sob CARDIOVASCULAR: No chest pain/palpitations GASTROINTESTINAL: No nausea/vomiting. GENITOURINARY: No hematuria/dysuria. MUSCULOSKELETAL: No myagias/arthalgias. PSYCHIATRIC: The patient denies depression. NEUROLOGIC: mild generalized weakness Constitutional: alert Psych: no complaints Head: normocephalic ENMT: mucosa pink and moist Neck: supple, jvd (9 cm water) Respiratory: diminished breath sounds (at bases/B) Cardiovascular: regular rate and rhythm Gastrointestinal: soft, non-tender Musculoskeletal: muscle tone Extremities: pitting pedal edema (bilateral) Neurological: other (No focal deficits) Labs Result Diagram: 06/15/18 0400 06/15/18 0400 Results 24hrs Laboratory Tests Test 06/15/18 04:00 06/15/18 05:01 White Blood Count 10.3 Red Blood Count 2.74 L Hemoglobin 8.5 L Hematocrit 26.2 L Mean Corpuscular Volume 95.6 Mean Corpuscular Hemoglobin 31.0 Mean Corpuscular Hemoglobin Concent 32.4 Red Cell Distribution Width 15.9 H Platelet Count 203 Mean Platelet Volume 9.8 Immature Granulocytes % 2.400 H Neutrophils % 84.5 H Lymphocytes % 4.8 L Monocytes % 7.0 Eosinophils % 0.9 Basophils % 0.4 Nucleated Red Blood Cells % 0.0 Immature Granulocytes # 0.250 H Neutrophils # 8.7 H Lymphocytes # 0.5 L Monocytes # 0.7 Eosinophils # 0.1 Basophils # 0.0 Nucleated Red Blood Cells # 0.0 Sodium Level 137 Potassium Level 3.9 Chloride Level 103 Carbon Dioxide Level 28 Anion Gap 6 Blood Urea Nitrogen 31 H Creatinine 1.40 H Est Glomerular Filtrat Rate mL/min 38 L Glucose Level 121 Calcium Level 8.2 L Phosphorus Level 4.2 Magnesium Level 1.6 L Lab Scanned Report BLOOD TRANSFUSION Medications Medications Current Medications Acetaminophen (Tylenol Tab) 650 mg Q4H PRN PO FEVER GREATER THAN 100.6 Last administered on 06/11/18at 01:38; Admin Dose 650 MG; Start 05/27/18 at 11:30 Al Hydrox/Mg Hydrox/Simethicone (Mag-Al Plus) 30 ml Q4H PRN PO GASTROINTESTINAL UPSET; Start 05/27/18 at 11:30 Ondansetron HCl (Zofran Inj) 4 mg Q4H PRN IV NAUSEA AND/OR VOMITING Last administered on 06/06/18 06:05; Admin Dose 4 MG; Start 05/27/18 at 11:30 Levothyroxine Sodium (Synthroid) 50 mcg BEFORE BREAKFAST PO Last administered on 06/15/18 05:57; Admin Dose 50 MCG; Start 05/30/18 at 07:00 Mometasone Furoate (Asmanex) 1 puff DAILY INH Last administered on 06/15/18 08:07; Admin Dose 1 PUFF; Start 05/29/18 at 11:00 Atorvastatin Calcium (Lipitor) 10 mg DAILY@21 PO Last administered on 06/14/18 20:45; Admin Dose 10 MG; Start 05/29/18 at 21:00 Latanoprost (Xalatan) 1 drop HS BOTH EYES Last administered on 06/14/18 20:45; Admin Dose 1 DROP; Start 06/01/18 at 21:00 Amlodipine Besylate (Norvasc) 5 mg DAILY PO ; Start 06/03/18 at 09:00; Status Hold Pantoprazole (Protonix Tab) 40 mg DAILY@06 PO Last administered on 06/15/18 05:57; Admin Dose 40 MG; Start 06/05/18 at 06:00 Heparin Sodium (Porcine) (Heparin (1000 Units/ml)) 3,800 unit PER PROTOCOL PRN IV aPTT<47 Last administered on 06/11/18 10:01; Admin Dose 3,800 UNIT; Start 06/04/18 at 19:00; Status Hold Heparin Sodium (Porcine) 250 ml @ 7.5 mls/hr PER PROTOCOL IV Last administered on 06/11/18 09:59; Admin Dose 9.6 MLS/HR; Start 06/04/18 at 19:00; Status Hold Metoclopramide HCl (Reglan) 5 mg TID PRN IV Nausea; Start 06/06/18 at 11:00 Senna/Docusate Sodium (Senokot-S) 2 tab BID PO Last administered on 3/3/19at 20:39; Admin Dose 2 TAB; Start 06/06/18 at 21:00 Polyethylene Glycol (Miralax) 17 gm BID PRN PO CONSTIPATION; Start 06/06/18 at 14:00 Bisacodyl (Dulcolax Supp) 10 mg DAILY PRN [place] CONSTIPATION; Start 06/06/18 at 14:00 IV Flush (NS 10 ml) 10 ml PRN PRN IV IV PROTOCOL; Start 06/06/18 at 16:00 Nystatin (Nystatin Susp) 5 ml QID PO Last administered on 06/15/18 08:06; Admin Dose 5 ML; Start 06/06/18 at 17:00 Sevelamer Carbonate (Renvela) 800 mg WITH MEALS PO Last administered on 06/15/18 08:06; Admin Dose 800 MG; Start 06/08/18 at 07:35 Metoprolol Tartrate (Lopressor) 25 mg BID PO Last administered on 06/15/18 08:07; Admin Dose 25 MG; Start 06/13/18 at 21:00 Metoprolol Tartrate (Lopressor) 5 mg Q4H PRN IV HR>110 Hold SBP<100; Start 06/13/18 at 10:30 Morphine Sulfate (morphine) 6 mg Q2H PRN PO FOR NON CARDIAC PAIN (4-10); Start 06/13/18 at 11:30 Warfarin Sodium (Coumadin) 5 mg DAILY@17 PO Last administered on 06/14/18 19:10; Admin Dose 5 MG; Start 06/14/18 at 17:00 Furosemide (Lasix) 20 mg DAILY IV Last administered on 06/15/18at 08:06; Admin Dose 20 MG; Start 06/15/18 at 09:00 CHRIS LAZAR Jun 15, 2018 10:06
[2018-06-15] MEDS ORDERED: HEPARIN 1000 UNITS/ML 10 ML INJ IV PRN ×2 (12:30→16:30)
--- NOTE | 2018-06-15 15:16 | PN ---
Date/Time of Note Date/Time of Note DATE: 06/15/18 TIME: 14:54 Assessment/Plan VTE Prophylaxis Risk score (from Ns)>0 risk: 18 SCD applied (from Ns): Yes Pharmacological prophylaxis: warfarin tx Lines/Catheters IV [facility] Type (from [facility]): PICC Line Central line still needed: Yes Urinary Cath still in place: Yes Reason Cath still needed: urinary retention Assessment/Plan Hospital Course Patient is awake alert complains of shortness of breath occasional and on exertion however was able to work with physical therapy today. Patient is still tachypneic however improved to compare to yesterday. Patient will be started on heparin drip per cardiology. Patient status post blood transfusion yesterday today hemoglobin is 8.5, no active bleeding noted. Patient continues on Coumadin however INR is still not therapeutic 1.44 today. Assessment/Plan -Nose/oropharyngeal bleed on 06/11/2018, stopped after heparin was held. -Recent retroperitoneal bleed secondary to vascular injury status post stent placement. Monitor H and H. Dr. Kilpatrick is following in vascular surgery consultation. -Leukocytosis, resolved. Dr. Castellanos is following in infection disease consultation. Patient is off antibiotics. -Status post left heart catheterization with no significant obstructive coronary artery disease by Dr. Moreno on 05/27/2018. -Anemia of acute blood loss, status post blood transfusion, continue to monitor hemoglobin and hematocrit. -Status post mitral valve replacement with mechanical valve in 1999 in [facility]. Continue Coumadin, monitor PT/INR. -HTN, continue metoprolol -Hyperlipidemia -Hypothyroidism, continue levothyroxine -History of asthma Critical care time spent is 30 minutes. Further recommendations based on clinical course. Plan of care discussed with Dr. Painter. Result Diagram: 06/15/18 0400 06/15/18 0400 Results 24hrs Laboratory Tests Test 06/15/18 04:00 06/15/18 05:01 06/15/18 09:54 White Blood Count 10.3 Red Blood Count 2.74 L Hemoglobin 8.5 L Hematocrit 26.2 L Mean Corpuscular Volume 95.6 Mean Corpuscular Hemoglobin 31.0 Mean Corpuscular 32.4 Hemoglobin Concent Red Cell Distribution Width 15.9 H Platelet Count 203 Mean Platelet Volume 9.8 Immature Granulocytes % 2.400 H Neutrophils % 84.5 H Lymphocytes % 4.8 L Monocytes % 7.0 Eosinophils % 0.9 Basophils % 0.4 Nucleated Red Blood Cells % 0.0 Immature Granulocytes # 0.250 H Neutrophils # 8.7 H Lymphocytes # 0.5 L Monocytes # 0.7 Eosinophils # 0.1 Basophils # 0.0 Nucleated Red Blood Cells # 0.0 Sodium Level 137 Potassium Level 3.9 Chloride Level 103 Carbon Dioxide Level 28 Anion Gap 6 Blood Urea Nitrogen 31 H Creatinine 1.40 H Est Glomerular Filtrat 38 L Rate mL/min Glucose Level 121 Calcium Level 8.2 L Phosphorus Level 4.2 Magnesium Level 1.6 L Lab Scanned Report BLOOD TRANSFUSION Prothrombin Time 17.6 H Prothrombin Time Ratio 1.4 INR International 1.44 Normalized Ratio Exam/Review of Systems Exam Vitals Vital Signs Date Temp Pulse Resp B/P (MAP) Pulse Ox O2 O2 Flow FiO2 Time Delivery Rate 06/15/18 77 37 124/51 98 Room Air 14:00 (75) 06/15/18 99.0 12:01 06/12/18 21 21:24 06/12/18 2.0 05:30 Intake and Output 06/14/18 06/14/18 06/15/18 1414:59 22:59 06:59 IntakeIntake Total 300 ml 530 ml 240 ml OutputOutput Total 700 ml 525 ml 950 ml BalanceBalance -400 ml 5 ml -710 ml Exam Constitutional: alert, oriented Respiratory: clear to auscultation Cardiovascular: regular rate and rhythm Gastrointestinal: soft, non-tender Musculoskeletal: nl extremities to inspection Extremities: normal pulses Neurological: nl mental status Results Results 24hrs Laboratory Tests Test 06/15/18 04:00 06/15/18 05:01 06/15/18 09:54 White Blood Count 10.3 Red Blood Count 2.74 L Hemoglobin 8.5 L Hematocrit 26.2 L Mean Corpuscular Volume 95.6 Mean Corpuscular Hemoglobin 31.0 Mean Corpuscular 32.4 Hemoglobin Concent Red Cell Distribution Width 15.9 H Platelet Count 203 Mean Platelet Volume 9.8 Immature Granulocytes % 2.400 H Neutrophils % 84.5 H Lymphocytes % 4.8 L Monocytes % 7.0 Eosinophils % 0.9 Basophils % 0.4 Nucleated Red Blood Cells % 0.0 Immature Granulocytes # 0.250 H Neutrophils # 8.7 H Lymphocytes # 0.5 L Monocytes # 0.7 Eosinophils # 0.1 Basophils # 0.0 Nucleated Red Blood Cells # 0.0 Sodium Level 137 Potassium Level 3.9 Chloride Level 103 Carbon Dioxide Level 28 Anion Gap 6 Blood Urea Nitrogen 31 H Creatinine 1.40 H Est Glomerular Filtrat 38 L Rate mL/min Glucose Level 121 Calcium Level 8.2 L Phosphorus Level 4.2 Magnesium Level 1.6 L Lab Scanned Report BLOOD TRANSFUSION Prothrombin Time 17.6 H Prothrombin Time Ratio 1.4 INR International 1.44 Normalized Ratio Medications Medication Current Medications Acetaminophen (Tylenol Tab) 650 mg Q4H PRN PO FEVER GREATER THAN 100.6 Last administered on 06/11/18 01:38; Admin Dose 650 MG; Start 05/27/18 at 11:30 Al Hydrox/Mg Hydrox/Simethicone (Mag-Al Plus) 30 ml Q4H PRN PO GASTROINTESTINAL UPSET; Start 05/27/18 at 11:30 Ondansetron HCl (Zofran Inj) 4 mg Q4H PRN IV NAUSEA AND/OR VOMITING Last administered on 06/06/18 06:05; Admin Dose 4 MG; Start 05/27/18 at 11:30 Levothyroxine Sodium (Synthroid) 50 mcg BEFORE BREAKFAST PO Last administered on 06/15/18 05:57; Admin Dose 50 MCG; Start 05/30/18 at 07:00 Mometasone Furoate (Asmanex) 1 puff DAILY INH Last administered on 06/15/18 08:07; Admin Dose 1 PUFF; Start 05/29/18 at 11:00 Atorvastatin Calcium (Lipitor) 10 mg DAILY@21 PO Last administered on 06/14/18 20:45; Admin Dose 10 MG; Start 05/29/18 at 21:00 Latanoprost (Xalatan) 1 drop HS BOTH EYES Last administered on 06/14/18 20:45; Admin Dose 1 DROP; Start 06/01/18 at 21:00 Amlodipine Besylate (Norvasc) 5 mg DAILY PO ; Start 06/03/18 at 09:00; Status Hold Pantoprazole (Protonix Tab) 40 mg DAILY@06 PO Last administered on 06/15/18 05:57; Admin Dose 40 MG; Start 06/05/18 at 06:00 Heparin Sodium (Porcine) (Heparin (1000 Units/ml)) 3,800 unit PER PROTOCOL PRN IV aPTT<47 Last administered on 06/11/18 10:01; Admin Dose 3,800 UNIT; Start 06/04/18 at 19:00; Status Hold Heparin Sodium (Porcine) 250 ml @ 7.5 mls/hr PER PROTOCOL IV Last administered on 06/11/18 09:59; Admin Dose 9.6 MLS/HR; Start 06/04/18 at 19:00; Status Hold Metoclopramide HCl (Reglan) 5 mg TID PRN IV Nausea; Start 06/06/18 at 11:00 Senna/Docusate Sodium (Senokot-S) 2 tab BID PO Last administered on 06/12/18 20:39; Admin Dose 2 TAB; Start 06/06/18 at 21:00 Polyethylene Glycol (Miralax) 17 gm BID PRN PO CONSTIPATION; Start 06/06/18 at 14:00 Bisacodyl (Dulcolax Supp) 10 mg DAILY PRN [place] CONSTIPATION; Start 06/06/18 at 14:00 IV Flush (NS 10 ml) 10 ml PRN PRN IV IV PROTOCOL; Start 06/06/18 at 16:00 Nystatin (Nystatin Susp) 5 ml QID PO Last administered on 06/15/18 14:08; Admin Dose 5 ML; Start 06/06/18 at 17:00 Sevelamer Carbonate (Renvela) 800 mg WITH MEALS PO Last administered on 06/15/18 14:08; Admin Dose 800 MG; Start 06/08/18 at 07:35 Metoprolol Tartrate (Lopressor) 25 mg BID PO Last administered on 06/15/18 08:07; Admin Dose 25 MG; Start 06/13/18 at 21:00 Metoprolol Tartrate (Lopressor) 5 mg Q4H PRN IV HR>110 Hold SBP<100; Start 06/13/18 at 10:30 Morphine Sulfate (morphine) 6 mg Q2H PRN PO FOR NON CARDIAC PAIN (4-10); Start 06/13/18 at 11:30 Warfarin Sodium (Coumadin) 5 mg DAILY@17 PO Last administered on 06/14/18 19:10; Admin Dose 5 MG; Start 06/14/18 at 17:00 Furosemide (Lasix) 20 mg DAILY IV Last administered on 3/6/19at 08:06; Admin Dose 20 MG; Start 06/15/18 at 09:00 KRISTY MCCULLOUGH Jun 15, 2018 15:07
--- NOTE | 2018-06-15 15:49 | CONS ---
Assessment/Plan Assessment/Plan Hospital Course (Demo Recall) - severe sepsis due to UTI, improved - SIRS due to acute blood loss, improved - nasopharyngeal bleed on 06/11/2018, stopped after heparin was held - s/p UTI due to E. coli, resolved. 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, s/p covered stent placement 6 x 100 mm right common femoral artery and right external iliac artery, abdominal aortogram, catheter introduction to the abdominal aorta, JOSÉ MIGUEL guidance into the central artery 06/02/2018 - s/p retroperitoneal bleed - s/p acute anemia requiring PRBC - s/p CT guided placement of drainage catheter into pelvic hematoma 06/05/2018-->removed on 06/09/2018 - Oliguric FORREST - s/p L heart catheterization on 05/27/2018 showing no significant obstructive CAD - CAD s/p CABG in in 1982 - H/o MVR with mechanical valve, in 1999 - cholelithiasis without e/o acute cholecystitis - Hypertension - Hyperlipidemia - Hypothyroidism - asthma - s/p FOURNIER, resolved. CT head shows no acute findings - leukocytosis - venous JOSÉ MIGUEL of b/l LE was negative for DVT recommendations: - continue to follow cxs - continue to monitor Pt off systemic antibiotic. Consultation Date/Type/Reason Admit Date/Time May 28, 2018 at 17:52 cct 2h Initial Consult Date 06/03/18 Type of Consult ID Requesting Provider: JULY VALENTIN MD Date/Time of Note DATE: 06/15/18 TIME: 15:48 Exam/Review of Systems Exam Vitals Vital Signs Date Temp Pulse Resp B/P (MAP) Pulse Ox O2 O2 Flow FiO2 Time Delivery Rate 06/15/18 77 37 124/51 98 Room Air 14:00 (75) 06/15/18 99.0 12:01 06/12/18 21 21:24 06/12/18 2.0 05:30 Intake and Output 06/14/18 06/14/18 06/15/18 1515:00 23:00 07:00 IntakeIntake Total 240 ml 590 ml 180 ml OutputOutput Total 625 ml 775 ml 775 ml BalanceBalance -385 ml -185 ml -595 ml Results Result Diagram: 06/15/18 0400 06/15/18 0400 Results 24hrs Laboratory Tests Test 06/15/18 04:00 06/15/18 05:01 06/15/18 09:54 White Blood Count 10.3 Red Blood Count 2.74 L Hemoglobin 8.5 L Hematocrit 26.2 L Mean Corpuscular Volume 95.6 Mean Corpuscular Hemoglobin 31.0 Mean Corpuscular 32.4 Hemoglobin Concent Red Cell Distribution Width 15.9 H Platelet Count 203 Mean Platelet Volume 9.8 Immature Granulocytes % 2.400 H Neutrophils % 84.5 H Lymphocytes % 4.8 L Monocytes % 7.0 Eosinophils % 0.9 Basophils % 0.4 Nucleated Red Blood Cells % 0.0 Immature Granulocytes # 0.250 H Neutrophils # 8.7 H Lymphocytes # 0.5 L Monocytes # 0.7 Eosinophils # 0.1 Basophils # 0.0 Nucleated Red Blood Cells # 0.0 Sodium Level 137 Potassium Level 3.9 Chloride Level 103 Carbon Dioxide Level 28 Anion Gap 6 Blood Urea Nitrogen 31 H Creatinine 1.40 H Est Glomerular Filtrat 38 L Rate mL/min Glucose Level 121 Calcium Level 8.2 L Phosphorus Level 4.2 Magnesium Level 1.6 L Lab Scanned Report BLOOD TRANSFUSION Prothrombin Time 17.6 H Prothrombin Time Ratio 1.4 INR International 1.44 Normalized Ratio Medications Medication Current Medications Acetaminophen (Tylenol Tab) 650 mg Q4H PRN PO FEVER GREATER THAN 100.6 Last administered on 06/11/18at 01:38; Admin Dose 650 MG; Start 05/27/18 at 11:30 Al Hydrox/Mg Hydrox/Simethicone (Mag-Al Plus) 30 ml Q4H PRN PO GASTROINTESTINAL UPSET; Start 05/27/18 at 11:30 Ondansetron HCl (Zofran Inj) 4 mg Q4H PRN IV NAUSEA AND/OR VOMITING Last administered on 06/06/18at 06:05; Admin Dose 4 MG; Start 05/27/18 at 11:30 Levothyroxine Sodium (Synthroid) 50 mcg BEFORE BREAKFAST PO Last administered on 06/15/18at 05:57; Admin Dose 50 MCG; Start 05/30/18 at 07:00 Mometasone Furoate (Asmanex) 1 puff DAILY INH Last administered on 3/6/19at 08:07; Admin Dose 1 PUFF; Start 05/29/18 at 11:00 Atorvastatin Calcium (Lipitor) 10 mg DAILY@21 PO Last administered on 06/14/18 20:45; Admin Dose 10 MG; Start 05/29/18 at 21:00 Latanoprost (Xalatan) 1 drop HS BOTH EYES Last administered on 06/14/18 20:45; Admin Dose 1 DROP; Start 06/01/18 at 21:00 Amlodipine Besylate (Norvasc) 5 mg DAILY PO ; Start 06/03/18 at 09:00; Status Hold Pantoprazole (Protonix Tab) 40 mg DAILY@06 PO Last administered on 06/15/18 05:57; Admin Dose 40 MG; Start 06/05/18 at 06:00 Heparin Sodium (Porcine) (Heparin (1000 Units/ml)) 3,800 unit PER PROTOCOL PRN IV aPTT<47 Last administered on 06/11/18 10:01; Admin Dose 3,800 UNIT; Start 06/04/18 at 19:00; Status Hold Heparin Sodium (Porcine) 250 ml @ 7.5 mls/hr PER PROTOCOL IV Last administered on 06/11/18 09:59; Admin Dose 9.6 MLS/HR; Start 06/04/18 at 19:00; Status Hold Metoclopramide HCl (Reglan) 5 mg TID PRN IV Nausea; Start 06/06/18 at 11:00 Senna/Docusate Sodium (Senokot-S) 2 tab BID PO Last administered on 06/12/18 20:39; Admin Dose 2 TAB; Start 06/06/18 at 21:00 Polyethylene Glycol (Miralax) 17 gm BID PRN PO CONSTIPATION; Start 06/06/18 at 14:00 Bisacodyl (Dulcolax Supp) 10 mg DAILY PRN [place] CONSTIPATION; Start 06/06/18 at 14:00 IV Flush (NS 10 ml) 10 ml PRN PRN IV IV PROTOCOL; Start 06/06/18 at 16:00 Nystatin (Nystatin Susp) 5 ml QID PO Last administered on 06/15/18 14:08; Admin Dose 5 ML; Start 06/06/18 at 17:00 Sevelamer Carbonate (Renvela) 800 mg WITH MEALS PO Last administered on 3/6/19at 14:08; Admin Dose 800 MG; Start 06/08/18 at 07:35 Metoprolol Tartrate (Lopressor) 25 mg BID PO Last administered on 06/15/18at 08:07; Admin Dose 25 MG; Start 06/13/18 at 21:00 Metoprolol Tartrate (Lopressor) 5 mg Q4H PRN IV HR>110 Hold SBP<100; Start 06/13/18 at 10:30 Morphine Sulfate (morphine) 6 mg Q2H PRN PO FOR NON CARDIAC PAIN (4-10); Start 06/13/18 at 11:30 Warfarin Sodium (Coumadin) 5 mg DAILY@17 PO Last administered on 06/14/18at 19:10; Admin Dose 5 MG; Start 06/14/18 at 17:00 Furosemide (Lasix) 20 mg DAILY IV Last administered on 06/15/18 08:06; Admin Dose 20 MG; Start 06/15/18 at 09:00 MARSHA IYER MD Jun 15, 2018 15:49
[2018-06-15] MEDS ORDERED: morphine 2 MG INJ IV PRN (16:00)
[2018-06-15] MEDS: HEPARIN 25000 UNITS/250 ML 250 ML IV SCH (16:37)
[2018-06-15] MEDS: WARFARIN 5 MG TAB PO SCH (17:24)
[2018-06-15] MEDS: ATORVASTATIN 10 MG TAB PO SCH ×2 (20:48→20:57)
[2018-06-15] MEDS: LATANOPROST 0.005% 2.5 ML OPH BOTH EYES SCH (21:08)
[2018-06-16] VITALS (24 sets, daily range): BP systolic 105–151; BP diastolic 47–94; PULSE 77–92; RESP 26–57
[2018-06-16] MEDS: PANTOPRAZOLE (EC) 40 MG TAB PO SCH (05:28)
[2018-06-16] MEDS: LEVOTHYROXINE 50 MCG TAB PO SCH ×2 (06:54→08:09)
[2018-06-16] MEDS ORDERED: POTASSIUM CHLORIDE (SR) 20 MEQ TAB PO STA (07:52)
[2018-06-16] MEDS: NYSTATIN SUSP 5 ML CUP PO SCH ×4 (08:10→20:41)
[2018-06-16] MEDS: MOMETASONE 0.24 GM INHALER INH SCH (08:10)
[2018-06-16] MEDS: SENNA/DOCUSATE NA (8.6MG/50MG) TAB PO SCH ×2 (08:11→20:42)
[2018-06-16] MEDS: METOPROLOL 25 MG TAB PO SCH ×2 (08:11→20:41)
[2018-06-16] MEDS: FUROSEMIDE 20 MG INJ IV SCH ×2 (08:17→17:28)
--- NOTE | 2018-06-16 08:52 | PN ---
DATE: 06/16/2018 SUBJECTIVE: The patient remains stable. No events overnight. No fevers, chills, nausea, or vomitin g. The patient's urinary output has been adequate. OBJECTIVE: VITAL SIGNS: Blood pressure is 138/62, pulse 89, respirations 51, temperature 97.7. I's and O's: Reviewed. HEENT: Head is normocephalic. NECK: Supple. HEART: Regular rate. LUNGS: Show diminished breath sounds at the base. ABDOMEN: Soft, nontender to palpation without rebound or guarding. EXTREMITIES: Negative for clubbing, cyanosis. Positive edema. DERMATOLOGIC: No rashes. MUSCULOSKELETAL: No joint effusion. NEUROLOGIC: No change in exam. MEDICATIONS: The patient's medications have been reviewed. LABORATORY DATA: From 06/16/2018 has been reviewed. The patient has a BUN of 29, creatinine 1.31, c alcium 8.0. ASSESSMENT AND PLAN: 1. Nonoliguric acute kidney injury with previous baseline creatinine of 0.6 mg/dL. Etiology of acut e kidney injury is secondary to acute tubular necrosis. Renal function is improving. Continue to mo nitor. 2. Volume overload. Continue diuretic therapy. We will increase Lasix to 20 mg IV b.i.d., monitor electrolytes, and renal function closely. 3. Hypernatremia, resolved. 4. Anemia. Continue to monitor hemoglobin and hematocrit levels. 5. Mineral bone disorder, monitor calcium and phosphorus levels. 6. Hyperkalemia, improved. Continue to monitor and replete as needed. 7. Coronary artery disease. Continue medical management. 8. Mechanical heart valve. Continue anticoagulation. 9. Sepsis secondary to urinary tract infection. Continue current antibiotic regimen. 10. Hypothyroidism. Continue Synthroid. 11. Dyslipidemia. Continue statin therapy. 12. Hypertension. Continue current blood pressure regimen. 13. Intraabdominal hematoma, improving. The patient is status post pigtail placement. Continue to monitor. 14. Epistaxis, resolved. 15. Hypomagnesemia. Continue to monitor and replete as needed. Dictated By: GWYN FABIAN DO NR/NTS Conf#: [id number] DID#: [id number] CC: CHRIS LAZAR MD; JOAQUIN DE LEON MD; JULY VALENTIN MD;*EndCC*
--- NOTE | 2018-06-16 11:04 | CONS ---
Assessment/Plan Assessment/Plan Hospital Course (Demo Recall) IMP: 1.cad s/p LHC with no sig obstructive cad 2.HTN 3.RP Bleed s/p transfusions now stable and tolerating heparin/coumadin loading. Then had recurrent bled overnight now s/p covered stent to RECREATION CENTER DIRECTOR/Ext iliac. Stable collection by abd CT 06/06 but still with pigtail catheter in place 4.HL 5.MVR-mechanical 6.anemia- s/p repair of R RECREATION C[facility] DIRECTOR/illiac. Had hemoptysis with subsequent drop in Hgb again and holding of heparin. Had some mild blood tinged sputum 7.Hypothyroid 8. FOURNIER-negative Head CT 9. Fevers-with positive ua 10. UTI 11.ARF-? Contrast induced/compression from hematoma- now improving with in creased urine output and slowly decreasing sales advisory manager 12. Coagulopathy-being re loaded on coumadin 14. LE weakness-? compression from hematoma and exacerbated by femoral compression after cath-now resolved 15. arterial insuff- LLE- s/p ELECTRONIC ASSEMBLY/thrombolysis 06/04 successfully with palpable pulses/B DP/PT and remain that way 16. PAF/AFL-rate controlled Recc: -In ICU -Now on BB with well controlled Hr's -Continue statin -F/U urine cx -s/p course of abx's -ongoing ID f/u -Ongoing surgical f/u -F/U sales advisory manager/K closely. Renal now following. Now placed on daily lasix. Follow output/sales advisory manager which continues to slowly improve -Continue coumadin and follow INR closely which is slowly increasing -Follow HGb clsoely - Contineu IV heparin coverage as tolerated only Consultation Date/Type/Reason Admit Date/Time May 28, 2018 at 17:52 Initial Consult Date 05/28/18 Type of Consult Cardiology Reason for Consultation Requesting Provider: JULY VALENTIN MD Date/Time of Note DATE: 06/16/18 TIME: 11:01 Exam/Review of Systems Vital Signs Vitals Vital Signs Date Temp Pulse Resp B/P (MAP) Pulse Ox O2 O2 Flow FiO2 Time Delivery Rate 06/16/18 77 38 125/67 96 Room Air 09:00 (86) 06/16/18 98.9 08:00 06/15/18 21 19:19 Intake and Output 06/15/18 06/15/18 06/16/18 1515:00 23:00 07:00 IntakeIntake Total 300 ml 238.0 ml 135.0 ml OutputOutput Total 1100 ml 855 ml 660 ml BalanceBalance -800 ml -617.0 ml -525.0 ml Exam Exam Review of Systems: CONSTITUTIONAL: No fevers, chills. PULMONARY: No sob CARDIOVASCULAR: No chest pain/palpitations GASTROINTESTINAL: No nausea/vomiting. GENITOURINARY: No hematuria/dysuria. MUSCULOSKELETAL: No myagias/arthalgias. PSYCHIATRIC: The patient denies depression. NEUROLOGIC: No weakness Constitutional: alert Psych: no complaints Head: normocephalic ENMT: mucosa pink and moist Neck: supple, jvd (9 cm water) Respiratory: diminished breath sounds (at bases/B) Cardiovascular: regular rate and rhythm Gastrointestinal: soft, non-tender Musculoskeletal: muscle tone (normal) Extremities: edema (none) Neurological: other (No focal deficits) Labs Result Diagram: 06/16/18 0500 06/16/18 0500 Results 24hrs Laboratory Tests Test 06/15/18 23:25 06/16/18 05:00 Activated Partial Thromboplast Time 61.0 H 58.0 H White Blood Count 6.8 # Red Blood Count 2.72 L Hemoglobin 8.3 L Hematocrit 25.8 L Mean Corpuscular Volume 94.9 Mean Corpuscular Hemoglobin 30.5 Mean Corpuscular Hemoglobin Concent 32.2 Red Cell Distribution Width 15.5 H Platelet Count 194 Mean Platelet Volume 9.7 Immature Granulocytes % 1.900 H Neutrophils % 81.6 H Lymphocytes % 7.4 L Monocytes % 7.2 Eosinophils % 1.3 Basophils % 0.6 Nucleated Red Blood Cells % 0.0 Immature Granulocytes # 0.130 H Neutrophils # 5.6 Lymphocytes # 0.5 L Monocytes # 0.5 Eosinophils # 0.1 Basophils # 0.0 Nucleated Red Blood Cells # 0.0 Prothrombin Time 18.2 H Prothrombin Time Ratio 1.4 INR International Normalized Ratio 1.50 Sodium Level 136 Potassium Level 3.7 Chloride Level 103 Carbon Dioxide Level 26 Anion Gap 7 Blood Urea Nitrogen 29 H Creatinine 1.31 H Est Glomerular Filtrat Rate mL/min 41 L Glucose Level 121 Calcium Level 8.0 L Phosphorus Level 4.1 Magnesium Level 1.9 Medications Medications Current Medications Acetaminophen (Tylenol Tab) 650 mg Q4H PRN PO FEVER GREATER THAN 100.6 Last administered on 06/11/18 01:38; Admin Dose 650 MG; Start 05/27/18 at 11:30 Al Hydrox/Mg Hydrox/Simethicone (Mag-Al Plus) 30 ml Q4H PRN PO GASTROINTESTINAL UPSET; Start 05/27/18 at 11:30 Ondansetron HCl (Zofran Inj) 4 mg Q4H PRN IV NAUSEA AND/OR VOMITING Last administered on 06/06/18 06:05; Admin Dose 4 MG; Start 05/27/18 at 11:30 Levothyroxine Sodium (Synthroid) 50 mcg BEFORE BREAKFAST PO Last administered on 06/16/18 08:09; Admin Dose 50 MCG; Start 05/30/18 at 07:00 Mometasone Furoate (Asmanex) 1 puff DAILY INH Last administered on 06/16/18 08:10; Admin Dose 1 PUFF; Start 05/29/18 at 11:00 Atorvastatin Calcium (Lipitor) 10 mg DAILY@21 PO Last administered on 06/14/18 20:45; Admin Dose 10 MG; Start 05/29/18 at 21:00 Latanoprost (Xalatan) 1 drop HS BOTH EYES Last administered on 06/15/18 21:08; Admin Dose 1 DROP; Start 06/01/18 at 21:00 Amlodipine Besylate (Norvasc) 5 mg DAILY PO ; Start 06/03/18 at 09:00; Status Hold Pantoprazole (Protonix Tab) 40 mg DAILY@06 PO Last administered on 06/16/18 05:28; Admin Dose 40 MG; Start 06/05/18 at 06:00 Metoclopramide HCl (Reglan) 5 mg TID PRN IV Nausea; Start 06/06/18 at 11:00 Senna/Docusate Sodium (Senokot-S) 2 tab BID PO Last administered on 06/12/18 20:39; Admin Dose 2 TAB; Start 06/06/18 at 21:00 Polyethylene Glycol (Miralax) 17 gm BID PRN PO CONSTIPATION; Start 06/06/18 at 14:00 Bisacodyl (Dulcolax Supp) 10 mg DAILY PRN [place] CONSTIPATION; Start 06/06/18 at 14:00 IV Flush (NS 10 ml) 10 ml PRN PRN IV IV PROTOCOL; Start 06/06/18 at 16:00 Nystatin (Nystatin Susp) 5 ml QID PO Last administered on 06/16/18at 08:10; Admin Dose 5 ML; Start 06/06/18 at 17:00 Metoprolol Tartrate (Lopressor) 25 mg BID PO Last administered on 06/16/18at 08:11; Admin Dose 25 MG; Start 06/13/18 at 21:00 Metoprolol Tartrate (Lopressor) 5 mg Q4H PRN IV HR>110 Hold SBP<100; Start 06/13/18 at 10:30 Morphine Sulfate (morphine) 6 mg Q2H PRN PO FOR NON CARDIAC PAIN (4-10); Start 06/13/18 at 11:30 Warfarin Sodium (Coumadin) 5 mg DAILY@17 PO Last administered on 06/15/18at 17:24; Admin Dose 5 MG; Start 06/14/18 at 17:00 Morphine Sulfate (morphine) 2 mg Q2H PRN IV FOR NON CARDIAC PAIN (4-10); Start 06/15/18 at 16:00; Stop 06/19/18 at 16:00 Heparin Sodium (Porcine) (Heparin (1000 Units/ml)) 3,800 unit PER PROTOCOL PRN IV aPTT<47; Start 06/15/18 at 16:30 Heparin Sodium (Porcine) 250 ml @ 7.5 mls/hr PER PROTOCOL IV Last administered on 06/15/18at 16:37; Admin Dose 7.5 MLS/HR; Start 06/15/18 at 16:30 Furosemide (Lasix) 20 mg BID DIURETICS IV Last administered on 06/16/18at 08:17; Admin Dose 20 MG; Start 06/16/18 at 09:00 CHRIS LAZAR Jun 16, 2018 11:04
--- NOTE | 2018-06-16 15:39 | PN ---
Date/Time of Note Date/Time of Note DATE: 06/16/18 TIME: 15:35 Assessment/Plan VTE Prophylaxis Risk score (from Ns)>0 risk: 17 SCD applied (from Ns): Yes Pharmacological prophylaxis: heparin, warfarin tx Lines/Catheters IV [facility] PICC Line Central line still needed: Yes Urinary Cath still in place: Yes Reason Cath still needed: urinary retention Assessment/Plan Hospital Course Patient is tachypneic, continues on Lasix, patient is on Coumadin and heparin drip, continue current care monitor for signs of bleeding. Assessment/Plan -Nose/oropharyngeal bleed on 06/11/2018, stopped after heparin was held. -Recent retroperitoneal bleed secondary to vascular injury status post stent placement. Monitor H and H. S/p eval by Dr. Kilpatrick, vascular surgery consultation. -Leukocytosis, resolved. Dr. Castellanos is following in infection disease consultation. Patient is off antibiotics. -Status post left heart catheterization with no significant obstructive coronary artery disease by Dr. Moreno on 05/27/2018. -Anemia of acute blood loss, status post blood transfusion, continue to monitor hemoglobin and hematocrit. -Status post mitral valve replacement with mechanical valve in 1999 in [facility]. Continue Coumadin, monitor PT/INR. -HTN, continue metoprolol -Hyperlipidemia -Hypothyroidism, continue levothyroxine -History of asthma Critical care time spent is 30 minutes. Further recommendations based on clinical course. Plan of care discussed with Dr. Painter. Result Diagram: 06/16/18 0500 06/16/18 0500 Results 24hrs Laboratory Tests Test 06/15/18 23:25 06/16/18 05:00 Activated Partial Thromboplast Time 61.0 H 58.0 H White Blood Count 6.8 # Red Blood Count 2.72 L Hemoglobin 8.3 L Hematocrit 25.8 L Mean Corpuscular Volume 94.9 Mean Corpuscular Hemoglobin 30.5 Mean Corpuscular Hemoglobin Concent 32.2 Red Cell Distribution Width 15.5 H Platelet Count 194 Mean Platelet Volume 9.7 Immature Granulocytes % 1.900 H Neutrophils % 81.6 H Lymphocytes % 7.4 L Monocytes % 7.2 Eosinophils % 1.3 Basophils % 0.6 Nucleated Red Blood Cells % 0.0 Immature Granulocytes # 0.130 H Neutrophils # 5.6 Lymphocytes # 0.5 L Monocytes # 0.5 Eosinophils # 0.1 Basophils # 0.0 Nucleated Red Blood Cells # 0.0 Prothrombin Time 18.2 H Prothrombin Time Ratio 1.4 INR International Normalized Ratio 1.50 Sodium Level 136 Potassium Level 3.7 Chloride Level 103 Carbon Dioxide Level 26 Anion Gap 7 Blood Urea Nitrogen 29 H Creatinine 1.31 H Est Glomerular Filtrat Rate mL/min 41 L Glucose Level 121 Calcium Level 8.0 L Phosphorus Level 4.1 Magnesium Level 1.9 Exam/Review of Systems Exam Vitals Vital Signs Date Temp Pulse Resp B/P (MAP) Pulse Ox O2 O2 Flow FiO2 Time Delivery Rate 06/16/18 78 47 129/64 100 Room Air 15:00 (85) 06/16/18 98.7 12:00 06/15/18 21 19:19 Intake and Output 06/15/18 06/15/18 06/16/18 1515:00 23:00 07:00 IntakeIntake Total 300 ml 238.0 ml 135.0 ml OutputOutput Total 1100 ml 855 ml 660 ml BalanceBalance -800 ml -617.0 ml -525.0 ml Exam Constitutional: alert, oriented Respiratory: clear to auscultation Cardiovascular: regular rate and rhythm Gastrointestinal: soft, non-tender Musculoskeletal: nl extremities to inspection Extremities: normal pulses Neurological: nl mental status Results Results 24hrs Laboratory Tests Test 06/15/18 23:25 06/16/18 05:00 Activated Partial Thromboplast Time 61.0 H 58.0 H White Blood Count 6.8 # Red Blood Count 2.72 L Hemoglobin 8.3 L Hematocrit 25.8 L Mean Corpuscular Volume 94.9 Mean Corpuscular Hemoglobin 30.5 Mean Corpuscular Hemoglobin Concent 32.2 Red Cell Distribution Width 15.5 H Platelet Count 194 Mean Platelet Volume 9.7 Immature Granulocytes % 1.900 H Neutrophils % 81.6 H Lymphocytes % 7.4 L Monocytes % 7.2 Eosinophils % 1.3 Basophils % 0.6 Nucleated Red Blood Cells % 0.0 Immature Granulocytes # 0.130 H Neutrophils # 5.6 Lymphocytes # 0.5 L Monocytes # 0.5 Eosinophils # 0.1 Basophils # 0.0 Nucleated Red Blood Cells # 0.0 Prothrombin Time 18.2 H Prothrombin Time Ratio 1.4 INR International Normalized Ratio 1.50 Sodium Level 136 Potassium Level 3.7 Chloride Level 103 Carbon Dioxide Level 26 Anion Gap 7 Blood Urea Nitrogen 29 H Creatinine 1.31 H Est Glomerular Filtrat Rate mL/min 41 L Glucose Level 121 Calcium Level 8.0 L Phosphorus Level 4.1 Magnesium Level 1.9 Medications Medication Current Medications Acetaminophen (Tylenol Tab) 650 mg Q4H PRN PO FEVER GREATER THAN 100.6 Last administered on 06/11/18 01:38; Admin Dose 650 MG; Start 05/27/18 at 11:30 Al Hydrox/Mg Hydrox/Simethicone (Mag-Al Plus) 30 ml Q4H PRN PO GASTROINTESTINAL UPSET; Start 05/27/18 at 11:30 Ondansetron HCl (Zofran Inj) 4 mg Q4H PRN IV NAUSEA AND/OR VOMITING Last administered on 06/06/18 06:05; Admin Dose 4 MG; Start 05/27/18 at 11:30 Levothyroxine Sodium (Synthroid) 50 mcg BEFORE BREAKFAST PO Last administered on 06/16/18 08:09; Admin Dose 50 MCG; Start 05/30/18 at 07:00 Mometasone Furoate (Asmanex) 1 puff DAILY INH Last administered on 06/16/18 08:10; Admin Dose 1 PUFF; Start 05/29/18 at 11:00 Atorvastatin Calcium (Lipitor) 10 mg DAILY@21 PO Last administered on 06/14/18 20:45; Admin Dose 10 MG; Start 05/29/18 at 21:00 Latanoprost (Xalatan) 1 drop HS BOTH EYES Last administered on 06/15/18 21:08; Admin Dose 1 DROP; Start 06/01/18 at 21:00 Amlodipine Besylate (Norvasc) 5 mg DAILY PO ; Start 06/03/18 at 09:00; Status Hold Pantoprazole (Protonix Tab) 40 mg DAILY@06 PO Last administered on 06/16/18 05:28; Admin Dose 40 MG; Start 06/05/18 at 06:00 Metoclopramide HCl (Reglan) 5 mg TID PRN IV Nausea; Start 06/06/18 at 11:00 Senna/Docusate Sodium (Senokot-S) 2 tab BID PO Last administered on 06/12/18 20:39; Admin Dose 2 TAB; Start 06/06/18 at 21:00 Polyethylene Glycol (Miralax) 17 gm BID PRN PO CONSTIPATION; Start 06/06/18 at 14:00 Bisacodyl (Dulcolax Supp) 10 mg DAILY PRN [place] CONSTIPATION; Start 06/06/18 at 14:00 IV Flush (NS 10 ml) 10 ml PRN PRN IV IV PROTOCOL; Start 06/06/18 at 16:00 Nystatin (Nystatin Susp) 5 ml QID PO Last administered on 06/16/18at 13:52; Admin Dose 5 ML; Start 06/06/18 at 17:00 Metoprolol Tartrate (Lopressor) 25 mg BID PO Last administered on 06/16/18at 08:11; Admin Dose 25 MG; Start 06/13/18 at 21:00 Metoprolol Tartrate (Lopressor) 5 mg Q4H PRN IV HR>110 Hold SBP<100; Start 06/13/18 at 10:30 Morphine Sulfate (morphine) 6 mg Q2H PRN PO FOR NON CARDIAC PAIN (4-10); Start 06/13/18 at 11:30 Warfarin Sodium (Coumadin) 5 mg DAILY@17 PO Last administered on 06/15/18at 17:24; Admin Dose 5 MG; Start 06/14/18 at 17:00 Morphine Sulfate (morphine) 2 mg Q2H PRN IV FOR NON CARDIAC PAIN (4-10); Start 06/15/18 at 16:00; Stop 06/19/18 at 16:00 Heparin Sodium (Porcine) (Heparin (1000 Units/ml)) 3,800 unit PER PROTOCOL PRN IV aPTT<47; Start 06/15/18 at 16:30 Heparin Sodium (Porcine) 250 ml @ 7.5 mls/hr PER PROTOCOL IV Last administered on 06/15/18at 16:37; Admin Dose 7.5 MLS/HR; Start 06/15/18 at 16:30 Furosemide (Lasix) 20 mg BID DIURETICS IV Last administered on 06/16/18at 08:17; Admin Dose 20 MG; Start 06/16/18 at 09:00 KRISTY MCCULLOUGH Jun 16, 2018 15:39
--- NOTE | 2018-06-16 17:27 | CONS ---
Assessment/Plan Assessment/Plan Hospital Course (Demo Recall) assessment/impression - severe sepsis due to UTI, improved - SIRS due to acute blood loss, improved - nasopharyngeal bleed on 06/11/2018, resolved - s/p UTI due to E. coli, resolved. 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, s/p covered stent placement 6 x 100 mm right common femoral artery and right external iliac artery, abdominal aortogram, catheter introduction to the abdominal aorta, JOSÉ MIGUEL guidance into the central artery 06/02/2018 - s/p retroperitoneal bleed - s/p acute anemia requiring PRBC - s/p CT guided placement of drainage catheter into pelvic hematoma 06/05/2018-->removed on 06/09/2018 - FORREST, improved - s/p L heart catheterization on 05/27/2018 showing no significant obstructive CAD - CAD s/p CABG in in 1982 - H/o MVR with mechanical valve, in 1999 - cholelithiasis without e/o acute cholecystitis - Hypertension - Hyperlipidemia - Hypothyroidism - asthma - s/p FORUNIER, resolved. CT head shows no acute findings - venous JOSÉ MIGUEL of b/l LE was negative for DVT recommendations: - continue to monitor Pt off systemic antibiotic. management d/w Pt and her RN Karlee the critical care time I took to care for this Pt today was from 1700 to 1730 Consultation Date/Type/Reason Admit Date/Time May 28, 2018 at 17:52 Initial Consult Date 06/03/18 Type of Consult ID Reason for Consultation UTI Requesting Provider: JULY VALENTIN MD Date/Time of Note DATE: 06/16/18 TIME: 17:24 24 HR Interval Summary Free Text/Dictation heparin was restarted Constitutional: improved Detailed Summary ENT: no complaints Respiratory: no complaints Cardiovascular: no complaints Gastrointestinal: no complaints Genitourinary: other (FC) Musculoskeletal: no complaints Skin: other (ecchymoses of b/l UEs) Neurologic: no complaints Exam/Review of Systems Exam Vitals Vital Signs Date Temp Pulse Resp B/P (MAP) Pulse Ox O2 O2 Flow FiO2 Time Delivery Rate 06/16/18 79 16:00 06/16/18 47 129/64 100 Room Air 15:00 (85) 06/16/18 98.7 12:00 06/15/18 21 19:19 Intake and Output 06/15/18 06/15/18 06/16/18 1515:00 23:00 07:00 IntakeIntake Total 300 ml 238.0 ml 135.0 ml OutputOutput Total 1100 ml 855 ml 660 ml BalanceBalance -800 ml -617.0 ml -525.0 ml Constitutional: alert, oriented, well developed, frail Psych: no complaints, nl mood/affect Head: normocephalic, atraumatic Eyes: nl conjunctiva, nl lids, nl sclera ENMT: nl external ears & nose, nl nasal mucosa & septum, mucosa pink and moist Neck: non-tender Respiratory: clear to auscultation, normal air movement Cardiovascular: regular rate and rhythm, nl pulses, systolic murmur (II/) Gastrointestinal: soft, non-tender Genitourinary - Female: other (FC) Musculoskeletal: nl extremities to inspection Extremities: normal pulses Neurological: lethargic Skin: nl turgor, ecchymosis Results Result Diagram: 06/16/18 0500 06/16/18 0500 Results 24hrs Laboratory Tests Test 06/15/18 23:25 06/16/18 05:00 Activated Partial Thromboplast Time 61.0 H 58.0 H White Blood Count 6.8 # Red Blood Count 2.72 L Hemoglobin 8.3 L Hematocrit 25.8 L Mean Corpuscular Volume 94.9 Mean Corpuscular Hemoglobin 30.5 Mean Corpuscular Hemoglobin Concent 32.2 Red Cell Distribution Width 15.5 H Platelet Count 194 Mean Platelet Volume 9.7 Immature Granulocytes % 1.900 H Neutrophils % 81.6 H Lymphocytes % 7.4 L Monocytes % 7.2 Eosinophils % 1.3 Basophils % 0.6 Nucleated Red Blood Cells % 0.0 Immature Granulocytes # 0.130 H Neutrophils # 5.6 Lymphocytes # 0.5 L Monocytes # 0.5 Eosinophils # 0.1 Basophils # 0.0 Nucleated Red Blood Cells # 0.0 Prothrombin Time 18.2 H Prothrombin Time Ratio 1.4 INR International Normalized Ratio 1.50 Sodium Level 136 Potassium Level 3.7 Chloride Level 103 Carbon Dioxide Level 26 Anion Gap 7 Blood Urea Nitrogen 29 H Creatinine 1.31 H Est Glomerular Filtrat Rate mL/min 41 L Glucose Level 121 Calcium Level 8.0 L Phosphorus Level 4.1 Magnesium Level 1.9 Medications Medication Current Medications Acetaminophen (Tylenol Tab) 650 mg Q4H PRN PO FEVER GREATER THAN 100.6 Last administered on 06/11/18 01:38; Admin Dose 650 MG; Start 05/27/18 at 11:30 Al Hydrox/Mg Hydrox/Simethicone (Mag-Al Plus) 30 ml Q4H PRN PO GASTROINTESTINAL UPSET; Start 05/27/18 at 11:30 Ondansetron HCl (Zofran Inj) 4 mg Q4H PRN IV NAUSEA AND/OR VOMITING Last administered on 06/06/18 06:05; Admin Dose 4 MG; Start 05/27/18 at 11:30 Levothyroxine Sodium (Synthroid) 50 mcg BEFORE BREAKFAST PO Last administered on 06/16/18 08:09; Admin Dose 50 MCG; Start 05/30/18 at 07:00 Mometasone Furoate (Asmanex) 1 puff DAILY INH Last administered on 06/16/18 08:10; Admin Dose 1 PUFF; Start 05/29/18 at 11:00 Atorvastatin Calcium (Lipitor) 10 mg DAILY@21 PO Last administered on 06/14/18 20:45; Admin Dose 10 MG; Start 05/29/18 at 21:00 Latanoprost (Xalatan) 1 drop HS BOTH EYES Last administered on 06/15/18 21:08; Admin Dose 1 DROP; Start 06/01/18 at 21:00 Amlodipine Besylate (Norvasc) 5 mg DAILY PO ; Start 06/03/18 at 09:00; Status Hold Pantoprazole (Protonix Tab) 40 mg DAILY@06 PO Last administered on 06/16/18 05:28; Admin Dose 40 MG; Start 06/05/18 at 06:00 Metoclopramide HCl (Reglan) 5 mg TID PRN IV Nausea; Start 06/06/18 at 11:00 Senna/Docusate Sodium (Senokot-S) 2 tab BID PO Last administered on 06/12/18 20:39; Admin Dose 2 TAB; Start 06/06/18 at 21:00 Polyethylene Glycol (Miralax) 17 gm BID PRN PO CONSTIPATION; Start 06/06/18 at 14:00 Bisacodyl (Dulcolax Supp) 10 mg DAILY PRN [place] CONSTIPATION; Start 06/06/18 at 14:00 IV Flush (NS 10 ml) 10 ml PRN PRN IV IV PROTOCOL; Start 06/06/18 at 16:00 Nystatin (Nystatin Susp) 5 ml QID PO Last administered on 06/16/18at 13:52; Admin Dose 5 ML; Start 06/06/18 at 17:00 Metoprolol Tartrate (Lopressor) 25 mg BID PO Last administered on 06/16/18at 08:11; Admin Dose 25 MG; Start 06/13/18 at 21:00 Metoprolol Tartrate (Lopressor) 5 mg Q4H PRN IV HR>110 Hold SBP<100; Start 06/13/18 at 10:30 Morphine Sulfate (morphine) 6 mg Q2H PRN PO FOR NON CARDIAC PAIN (4-10); Start 06/13/18 at 11:30 Warfarin Sodium (Coumadin) 5 mg DAILY@17 PO Last administered on 06/15/18at 17:24; Admin Dose 5 MG; Start 06/14/18 at 17:00 Morphine Sulfate (morphine) 2 mg Q2H PRN IV FOR NON CARDIAC PAIN (4-10); Start 06/15/18 at 16:00; Stop 06/19/18 at 16:00 Heparin Sodium (Porcine) (Heparin (1000 Units/ml)) 3,800 unit PER PROTOCOL PRN IV aPTT<47; Start 06/15/18 at 16:30 Heparin Sodium (Porcine) 250 ml @ 7.5 mls/hr PER PROTOCOL IV Last administered on 06/15/18at 16:37; Admin Dose 7.5 MLS/HR; Start 06/15/18 at 16:30 Furosemide (Lasix) 20 mg BID DIURETICS IV Last administered on 06/16/18at 08:17; Admin Dose 20 MG; Start 06/16/18 at 09:00 SHARI CROWELL M.D. Jun 16, 2018 17:27
[2018-06-16] MEDS: WARFARIN 5 MG TAB PO SCH (17:28)
[2018-06-16] MEDS: ATORVASTATIN 10 MG TAB PO SCH (20:41)
[2018-06-16] MEDS: LATANOPROST 0.005% 2.5 ML OPH BOTH EYES SCH (20:41)
[2018-06-17] VITALS (24 sets, daily range): BP systolic 118–140; BP diastolic 53–71; PULSE 77–99; RESP 29–48
[2018-06-17] MEDS: PANTOPRAZOLE (EC) 40 MG TAB PO SCH (06:02)
[2018-06-17] MEDS: LEVOTHYROXINE 50 MCG TAB PO SCH (06:02)
[2018-06-17] MEDS: FUROSEMIDE 20 MG INJ IV SCH ×2 (06:02→17:22)
[2018-06-17] MEDS: SENNA/DOCUSATE NA (8.6MG/50MG) TAB PO SCH ×2 (07:54→20:19)
[2018-06-17] MEDS: METOPROLOL 25 MG TAB PO SCH ×2 (08:23→20:25)
[2018-06-17] MEDS: NYSTATIN SUSP 5 ML CUP PO SCH ×4 (08:23→20:25)
--- NOTE | 2018-06-17 08:39 | PN ---
DATE: 06/17/2018 SUBJECTIVE: The patient is stable, no events overnight. The patient's hematuria has improved. Urin pro output has been excellent. No other events noted. OBJECTIVE: VITAL SIGNS: Blood pressure is 127/57, respirations 33, pulse 94, temperature 98.9. I's and O's: Reviewed. HEENT: Head is normocephalic. NECK: Supple. HEART: Regular rate. LUNGS: Show diminished breath sounds at the base. ABDOMEN: Soft, nontender to palpation without rebound or guarding. EXTREMITIES: Negative for clubbing, cyanosis. Positive edema. DERMATOLOGIC: No rashes. MUSCULOSKELETAL: No joint effusions. NEUROLOGIC: No change in exam. MEDICATIONS: The patient's medications have been reviewed. LABORATORY DATA: Shows a white count 4.8, hemoglobin 7.9, platelet count is 187. Sodium 137, BUN 28 , creatinine 1.08. Urinalysis shows +3 hemoglobin, positive WBCs. ASSESSMENT AND PLAN: 1. Nonoliguric acute kidney injury with previous baseline creatinine of 0.6 mg/dL. Etiology of acut e kidney injury is secondary to acute tubular necrosis. Renal function continues to improve. Contin ue current treatment plans, supportive care, renally dose all medicines. 2. Volume overload, improving. Continue current diuretic regimen, we will deescalate Lasix in next 24-48 hours. Monitor electrolytes, and renal function closely. 3. Hypernatremia, resolved. 4. Anemia. Monitor hemoglobin and hematocrit levels. 5. Mineral bone disorder. Continue to monitor calcium and phosphorus levels. 6. Hyperkalemia, improved. Continue to monitor. 7. Coronary artery disease. Continue medical management. 8. Hematuria. Etiology is possibly from [place] catheter in conjunction with heparin drip. Repeat ur inalysis was reviewed. Hematuria has since resolved. Continue to monitor. 9. Mechanical heart valve. Continue current anticoagulation per cardiology. 10. Sepsis secondary to urinary tract infection. The patient is completing antibiotic course. 11. Hypothyroidism. Continue Synthroid. 12. Dyslipidemia. Continue statin therapy. 13. Hypertension. Continue current blood pressure regimen. 14. Intraabdominal hematoma, improving. The patient's pigtail was placed. 15. Epistaxis, resolved. 16. Hypomagnesemia. Continue to monitor and replete as needed. Dictated By: GWYN HEALY/NTS Conf#: [id number] [facility]#: [id number] CC: CHRIS LAZAR MD; JULY VALENTIN MD; JOAQUIN DE LEON MD;*End*
[2018-06-17] MEDS: MOMETASONE 0.24 GM INHALER INH SCH (09:00)
--- NOTE | 2018-06-17 11:07 | CONS ---
Assessment/Plan Assessment/Plan Hospital Course (Demo Recall) IMP: 1.cad s/p LHC with no sig obstructive cad 2.HTN 3.RP Bleed s/p transfusions now stable and tolerating heparin/coumadin loading. Then had recurrent bled overnight now s/p covered stent to CLARIFIER/Ext iliac. Stable collection by abd CT 06/06 but still with pigtail catheter in place 4.HL 5.MVR-mechanical 6.anemia- s/p repair of R CLARIFIER/illiac. Had hemoptysis with subsequent drop in Hgb again and holding of heparin. Had some mild blood tinged sputum 7.Hypothyroid 8. FOURNIER-negative Head CT 9. Fevers-with positive ua 10. UTI 11.ARF-? 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 Coagulopathy-being re loaded on coumadin 14. LE weakness-? compression from hematoma and exacerbated by femoral compression after cath-now resolved 15. arterial insuff- LLE- s/p D[employer]EL [employer] MECH[employer]IC/thrombolysis 06/04 successfully with palpable pulses/B DP/PT and remain that way 16. PAF/AFL-rate controlled 17. Hematuria-resolved at this time Recc: -In ICU -Now on BB with well controlled Hr's -Continue statin -s/p course of abx's -ongoing ID f/u -Ongoing surgical f/u -F/U career center director/K closely. Renal now following. Now placed on daily lasix. Follow output/career center director which continues to slowly improve and is now almost normalized completely -Continue coumadin and follow INR closely which is slowly increasing and will make very slight increaae to coumadin dose today -Follow HGb clsoely which had very minmal downtrend likely from hematuria yesterday -Contineu IV heparin coverage as tolerated only Consultation Date/Type/Reason Admit Date/Time May 28, 2018 at 17:52 Initial Consult Date 05/28/18 Type of Consult Cardiology Reason for Consultation MVR//sob Requesting Provider: JULY VALENTIN MD Date/Time of Note DATE: 06/17/18 TIME: 11:03 Exam/Review of Systems Vital Signs Vitals Vital Signs Date Temp Pulse Resp B/P (MAP) Pulse Ox O2 O2 Flow FiO2 Time Delivery Rate 06/17/18 77 38 139/66 97 10:00 (90) 06/17/18 Room Air 09:00 06/17/18 99.1 08:00 06/16/18 21 21:36 Intake and Output 06/16/18 06/16/18 06/17/18 1515:00 23:00 07:00 IntakeIntake Total 245.0 ml 107.5 ml 50 ml OutputOutput Total 1800 ml 1168 ml 732 ml BalanceBalance -1555.0 ml -1060.5 ml -682 ml Exam Exam Review of Systems: CONSTITUTIONAL: No fevers, chills. PULMONARY: No sob CARDIOVASCULAR: No chest pain/palpitations GASTROINTESTINAL: No nausea/vomiting. GENITOURINARY: No hematuria/dysuria. MUSCULOSKELETAL: No myagias/arthalgias. PSYCHIATRIC: The patient denies depression. NEUROLOGIC: mild generalized weakness Constitutional: alert Psych: no complaints Head: normocephalic ENMT: mucosa pink and moist Neck: supple, jvd (9 cm water) Respiratory: diminished breath sounds Cardiovascular: regular rate and rhythm Gastrointestinal: soft, non-tender Musculoskeletal: muscle tone (normal) Extremities: edema (none) Neurological: other (No focal deficits) Labs Result Diagram: 06/17/18 0420 06/17/18 0431 Results 24hrs Laboratory Tests Test 06/16/18 18:30 06/17/18 04:20 06/17/18 04:31 Urine Color STRAW Urine Clarity CLEAR Urine pH 6.0 Urine Specific [place] 1.006 Urine Ketones NEGATIVE Urine Nitrite NEGATIVE Urine Bilirubin NEGATIVE Urine Urobilinogen NEGATIVE Urine Leukocyte Esterase 1+ H Urine Microscopic RBC > 182 H Urine Microscopic WBC 19 H Urine Yeast (Budding) FEW A Urine Hemoglobin 3+ H Urine Glucose NEGATIVE Urine Total Protein NEGATIVE White Blood Count 4.8 # Red Blood Count 2.59 L Hemoglobin 7.9 L Hematocrit 24.8 L Mean Corpuscular Volume 95.8 Mean Corpuscular Hemoglobin 30.5 Mean Corpuscular Hemoglobin Concent 31.9 L Red Cell Distribution Width 14.9 H Platelet Count 187 Mean Platelet Volume 10.1 Immature Granulocytes % 2.300 H Neutrophils % 78.5 H Lymphocytes % 10.2 L Monocytes % 6.9 Eosinophils % 1.7 Basophils % 0.4 Nucleated Red Blood Cells % 0.0 Immature Granulocytes # 0.110 H Neutrophils # 3.8 Lymphocytes # 0.5 L Monocytes # 0.3 Eosinophils # 0.1 Basophils # 0.0 Nucleated Red Blood Cells # 0.0 Prothrombin Time 18.2 H Prothrombin Time Ratio 1.4 INR International Normalized Ratio 1.50 Activated Partial Thromboplast Time 34.3 Sodium Level 137 Potassium Level 3.9 Chloride Level 101 Carbon Dioxide Level 29 Anion Gap 7 Blood Urea Nitrogen 28 H Creatinine 1.08 H Est Glomerular Filtrat Rate mL/min 51 L Glucose Level 108 Calcium Level 7.9 L Phosphorus Level 3.8 Magnesium Level 1.7 Medications Medications Current Medications Acetaminophen (Tylenol Tab) 650 mg Q4H PRN PO FEVER GREATER THAN 100.6 Last administered on 06/11/18 01:38; Admin Dose 650 MG; Start 05/27/18 at 11:30 Al Hydrox/Mg Hydrox/Simethicone (Mag-Al Plus) 30 ml Q4H PRN PO GASTROINTESTINAL UPSET; Start 05/27/18 at 11:30 Ondansetron HCl (Zofran Inj) 4 mg Q4H PRN IV NAUSEA AND/OR VOMITING Last administered on 06/06/18 06:05; Admin Dose 4 MG; Start 05/27/18 at 11:30 Levothyroxine Sodium (Synthroid) 50 mcg BEFORE BREAKFAST PO Last administered on 06/17/18 06:02; Admin Dose 50 MCG; Start 05/30/18 at 07:00 Mometasone Furoate (Asmanex) 1 puff DAILY INH Last administered on 06/16/18 08:10; Admin Dose 1 PUFF; Start 05/29/18 at 11:00 Atorvastatin Calcium (Lipitor) 10 mg DAILY@21 PO Last administered on 06/16/18 20:41; Admin Dose 10 MG; Start 05/29/18 at 21:00 Latanoprost (Xalatan) 1 drop HS BOTH EYES Last administered on 06/16/18 20:41; Admin Dose 1 DROP; Start 06/01/18 at 21:00 Amlodipine Besylate (Norvasc) 5 mg DAILY PO ; Start 06/03/18 at 09:00; Status Hold Pantoprazole (Protonix Tab) 40 mg DAILY@06 PO Last administered on 06/17/18 06:02; Admin Dose 40 MG; Start 06/05/18 at 06:00 Metoclopramide HCl (Reglan) 5 mg TID PRN IV Nausea; Start 06/06/18 at 11:00 Senna/Docusate Sodium (Senokot-S) 2 tab BID PO Last administered on 06/12/18at 20:39; Admin Dose 2 TAB; Start 06/06/18 at 21:00 Polyethylene Glycol (Miralax) 17 gm BID PRN PO CONSTIPATION; Start 06/06/18 at 14:00 Bisacodyl (Dulcolax Supp) 10 mg DAILY PRN [place] CONSTIPATION; Start 06/06/18 at 14:00 IV Flush (NS 10 ml) 10 ml PRN PRN IV IV PROTOCOL; Start 06/06/18 at 16:00 Nystatin (Nystatin Susp) 5 ml QID PO Last administered on 06/17/18at 08:23; Admin Dose 5 ML; Start 06/06/18 at 17:00 Metoprolol Tartrate (Lopressor) 25 mg BID PO Last administered on 06/17/18at 08:23; Admin Dose 25 MG; Start 06/13/18 at 21:00 Metoprolol Tartrate (Lopressor) 5 mg Q4H PRN IV HR>110 Hold SBP<100; Start 06/13/18 at 10:30 Morphine Sulfate (morphine) 6 mg Q2H PRN PO FOR NON CARDIAC PAIN (4-10); Start 06/13/18 at 11:30 Warfarin Sodium (Coumadin) 5 mg DAILY@17 PO Last administered on 06/16/18at 17:28; Admin Dose 5 MG; Start 06/14/18 at 17:00 Morphine Sulfate (morphine) 2 mg Q2H PRN IV FOR NON CARDIAC PAIN (4-10); Start 06/15/18 at 16:00; Stop 06/19/18 at 16:00 Heparin Sodium (Porcine) (Heparin (1000 Units/ml)) 3,800 unit PER PROTOCOL PRN IV aPTT<47; Start 06/15/18 at 16:30 Heparin Sodium (Porcine) 250 ml @ 7.5 mls/hr PER PROTOCOL IV Last administered on 06/15/18at 16:37; Admin Dose 7.5 MLS/HR; Start 06/15/18 at 16:30 Furosemide (Lasix) 20 mg BID DIURETICS IV Last administered on 06/17/18at 06:02; Admin Dose 20 MG; Start 06/16/18 at 09:00 CHRIS LAZAR Jun 17, 2018 11:07
[2018-06-17] MEDS: HEPARIN 25000 UNITS/250 ML 250 ML IV SCH ×2 (11:26→20:26)
[2018-06-17] MEDS ORDERED: WARFARIN 3 MG TAB PO SCH (17:00)
--- NOTE | 2018-06-17 18:01 | CONS ---
Assessment/Plan Assessment/Plan Hospital Course (Demo Recall) assessment/impression - severe sepsis due to UTI, improved - SIRS due to acute blood loss, improved - nasopharyngeal bleed on 06/11/2018, resolved - s/p UTI due to E. coli, resolved. 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, s/p covered stent placement 6 x 100 mm right common femoral artery and right external iliac artery, abdominal aortogram, catheter introduction to the abdominal aorta, JOSÉ MIGUEL guidance into the central artery 06/02/2018 - s/p retroperitoneal bleed - s/p acute anemia requiring PRBC - s/p CT guided placement of drainage catheter into pelvic hematoma 06/05/2018-->removed on 06/09/2018 - FORREST, improved - s/p L heart catheterization on 05/27/2018 showing no significant obstructive CAD - CAD s/p CABG in in 1982 - H/o MVR with mechanical valve, in 1999 - cholelithiasis without e/o acute cholecystitis - Hypertension - Hyperlipidemia - Hypothyroidism - asthma - s/p FOURNIER, resolved. CT head shows no acute findings - venous JOSÉ MIGUEL of b/l LE was negative for DVT recommendations: - continue to monitor Pt off systemic antibiotic. management d/w Pt, her and RN Krystina the critical care time I took to care for this Pt today was from 1730 to 1800 Consultation Date/Type/Reason Admit Date/Time May 28, 2018 at 17:52 Initial Consult Date 06/03/18 Type of Consult ID Reason for Consultation UTI Requesting Provider: JULY VALENTIN MD Date/Time of Note DATE: 06/17/18 TIME: 18:00 24 HR Interval Summary Constitutional: improved Detailed Summary Eyes: no complaints ENT: no complaints Respiratory: no complaints Cardiovascular: edema Gastrointestinal: no complaints Genitourinary: other (FC) Musculoskeletal: no complaints Skin: other (ecchymoses) Neurologic: no complaints Exam/Review of Systems Exam Vitals Vital Signs Date Temp Pulse Resp B/P (MAP) Pulse Ox O2 O2 Flow FiO2 Time Delivery Rate 06/17/18 98.5 79 31 124/59 99 Room Air 16:00 (80) 06/16/18 21 21:36 Intake and Output 06/16/18 06/16/18 06/17/18 1414:59 22:59 06:59 IntakeIntake Total 195.0 ml 165.0 ml 50 ml OutputOutput Total 1675 ml 1176 ml 924 ml BalanceBalance -1480.0 ml -1011.0 ml -874 ml Constitutional: alert, oriented, well developed Psych: no complaints, nl mood/affect Head: normocephalic, atraumatic Eyes: nl conjunctiva, nl lids, nl sclera ENMT: nl external ears & nose, nl nasal mucosa & septum, mucosa pink and moist Neck: supple, other (not swollen) Respiratory: clear to auscultation, normal air movement Cardiovascular: regular rate and rhythm, nl pulses Gastrointestinal: soft, non-tender Genitourinary - Female: other (FC) Musculoskeletal: nl extremities to inspection Extremities: No edema Neurological: SUPERVISOR WHITE SUGAR II-XII intact, nl mental status, nl speech Skin: nl turgor, ecchymosis; No rash or lesions Results Result Diagram: 06/17/18 0420 06/17/18 0431 Results 24hrs Laboratory Tests Test 06/16/18 18:30 06/17/18 04:20 06/17/18 04:31 Urine Color STRAW Urine Clarity CLEAR Urine pH 6.0 Urine Specific [place] 1.006 Urine Ketones NEGATIVE Urine Nitrite NEGATIVE Urine Bilirubin NEGATIVE Urine Urobilinogen NEGATIVE Urine Leukocyte Esterase 1+ H Urine Microscopic RBC > 182 H Urine Microscopic WBC 19 H Urine Yeast (Budding) FEW A Urine Hemoglobin 3+ H Urine Glucose NEGATIVE Urine Total Protein NEGATIVE White Blood Count 4.8 # Red Blood Count 2.59 L Hemoglobin 7.9 L Hematocrit 24.8 L Mean Corpuscular Volume 95.8 Mean Corpuscular Hemoglobin 30.5 Mean Corpuscular Hemoglobin Concent 31.9 L Red Cell Distribution Width 14.9 H Platelet Count 187 Mean Platelet Volume 10.1 Immature Granulocytes % 2.300 H Neutrophils % 78.5 H Lymphocytes % 10.2 L Monocytes % 6.9 Eosinophils % 1.7 Basophils % 0.4 Nucleated Red Blood Cells % 0.0 Immature Granulocytes # 0.110 H Neutrophils # 3.8 Lymphocytes # 0.5 L Monocytes # 0.3 Eosinophils # 0.1 Basophils # 0.0 Nucleated Red Blood Cells # 0.0 Prothrombin Time 18.2 H Prothrombin Time Ratio 1.4 INR International Normalized Ratio 1.50 Activated Partial Thromboplast Time 34.3 Sodium Level 137 Potassium Level 3.9 Chloride Level 101 Carbon Dioxide Level 29 Anion Gap 7 Blood Urea Nitrogen 28 H Creatinine 1.08 H Est Glomerular Filtrat Rate mL/min 51 L Glucose Level 108 Calcium Level 7.9 L Phosphorus Level 3.8 Magnesium Level 1.7 Medications Medication Current Medications Acetaminophen (Tylenol Tab) 650 mg Q4H PRN PO FEVER GREATER THAN 100.6 Last administered on 06/11/18 01:38; Admin Dose 650 MG; Start 05/27/18 at 11:30 Al Hydrox/Mg Hydrox/Simethicone (Mag-Al Plus) 30 ml Q4H PRN PO GASTROINTESTINAL UPSET; Start 05/27/18 at 11:30 Ondansetron HCl (Zofran Inj) 4 mg Q4H PRN IV NAUSEA AND/OR VOMITING Last administered on 06/06/18 06:05; Admin Dose 4 MG; Start 05/27/18 at 11:30 Levothyroxine Sodium (Synthroid) 50 mcg BEFORE BREAKFAST PO Last administered on 06/17/18 06:02; Admin Dose 50 MCG; Start 05/30/18 at 07:00 Mometasone Furoate (Asmanex) 1 puff DAILY INH Last administered on 06/16/18 08:10; Admin Dose 1 PUFF; Start 05/29/18 at 11:00 Atorvastatin Calcium (Lipitor) 10 mg DAILY@21 PO Last administered on 06/16/18 20:41; Admin Dose 10 MG; Start 05/29/18 at 21:00 Latanoprost (Xalatan) 1 drop HS BOTH EYES Last administered on 06/16/18 20:41; Admin Dose 1 DROP; Start 06/01/18 at 21:00 Amlodipine Besylate (Norvasc) 5 mg DAILY PO ; Start 06/03/18 at 09:00; Status Hold Pantoprazole (Protonix Tab) 40 mg DAILY@06 PO Last administered on 06/17/18 06:02; Admin Dose 40 MG; Start 06/05/18 at 06:00 Metoclopramide HCl (Reglan) 5 mg TID PRN IV Nausea; Start 06/06/18 at 11:00 Senna/Docusate Sodium (Senokot-S) 2 tab BID PO Last administered on 06/12/18 20:39; Admin Dose 2 TAB; Start 06/06/18 at 21:00 Polyethylene Glycol (Miralax) 17 gm BID PRN PO CONSTIPATION; Start 06/06/18 at 14:00 Bisacodyl (Dulcolax Supp) 10 mg DAILY PRN AL CONSTIPATION; Start 06/06/18 at 14:00 IV Flush (NS 10 ml) 10 ml PRN PRN IV IV PROTOCOL; Start 06/06/18 at 16:00 Nystatin (Nystatin Susp) 5 ml QID PO Last administered on 06/17/18 17:23; Admin Dose 5 ML; Start 06/06/18 at 17:00 Metoprolol Tartrate (Lopressor) 25 mg BID PO Last administered on 06/17/18 08:23; Admin Dose 25 MG; Start 06/13/18 at 21:00 Metoprolol Tartrate (Lopressor) 5 mg Q4H PRN IV HR>110 Hold SBP<100; Start 06/13/18 at 10:30 Morphine Sulfate (morphine) 6 mg Q2H PRN PO FOR NON CARDIAC PAIN (4-10); Start 06/13/18 at 11:30 Morphine Sulfate (morphine) 2 mg Q2H PRN IV FOR NON CARDIAC PAIN (4-10); Start 06/15/18 at 16:00; Stop 06/19/18 at 16:00 Heparin Sodium (Porcine) (Heparin (1000 Units/ml)) 3,800 unit PER PROTOCOL PRN IV aPTT<47; Start 06/15/18 at 16:30 Heparin Sodium (Porcine) 250 ml @ 7.5 mls/hr PER PROTOCOL IV Last administered on 06/17/18 11:26; Admin Dose 7.5 MLS/HR; Start 06/15/18 at 16:30 Furosemide (Lasix) 20 mg BID DIURETICS IV Last administered on 06/17/18 17:22; Admin Dose 20 MG; Start 06/16/18 at 09:00 Warfarin Sodium (Coumadin) 6 mg DAILY@17 PO Last administered on 06/17/18 17:23; Admin Dose 6 MG; Start 06/17/18 at 17:00 SHARI CROWELL M.D. Jun 17, 2018 18:01
[2018-06-17] MEDS: ATORVASTATIN 10 MG TAB PO SCH (20:25)
[2018-06-17] MEDS: LATANOPROST 0.005% 2.5 ML OPH BOTH EYES SCH (20:28)
[2018-06-18] VITALS (24 sets, daily range): BP systolic 111–141; BP diastolic 49–87; PULSE 75–100; RESP 23–45
--- NOTE | 2018-06-18 03:18 | PN ---
DATE: 06/17/2018 SUBJECTIVE: The patient is feeling better today, was able to take a few steps with physical therapy. The patient had brownish urine yesterday which has cleared up. UA had PRBCs. The patient's urine today is absolutely clear. The patient is currently on heparin as well as Coumadin. The patient den ies any chest pain or abdominal pain. No reported vomiting. PHYSICAL EXAMINATION: GENERAL: Revealed the patient to be awake, alert. VITAL SIGNS: Stable, afebrile. HEENT: No eye discharge or redness. Conjunctivae are pale. Lids are normal. Oropharynx revealed p dale mucosa. NECK: Supple. No mass, no thyromegaly. CHEST: Diminished air entry at bases. CARDIOVASCULAR: Irregular rhythm. Prosthetic valve click present. ABDOMEN: Soft, nondistended, nontender. No palpable mass. EXTREMITIES: Still edematous. NEUROLOGIC: The patient is awake, alert, follows simple commands. IMPRESSION: 1. Atrial fibrillation and prosthetic mitral valve. Coumadin dose has been increased to 6 mg. We w ill check followup PT/INR. 2. Anemia due to acute blood loss. We will do followup CBC. 3. History of retroperitoneal bleed after angiogram, status post stent placement. 4. Acute kidney injury, improved. Plan of care was discussed with the patient. 5. Anemia due to recent bleed. We will continue to monitor hemoglobin. Dictated By: JULY VALENTIN MD AB/NTS Conf#: [id number] DID#: [id number] CC: JOAQUIN DE LEON MD; CHRIS LAZAR MD;*[facility]*
[2018-06-18] MEDS: LEVOTHYROXINE 50 MCG TAB PO SCH (06:01)
[2018-06-18] MEDS: FUROSEMIDE 20 MG INJ IV SCH ×2 (06:01→17:39)
[2018-06-18] MEDS: PANTOPRAZOLE (EC) 40 MG TAB PO SCH (06:01)
[2018-06-18] MEDS ORDERED: MAGNESIUM SULFATE 2 GM/50 ML 50 ML IVPB ONE (07:00)
[2018-06-18] MEDS ORDERED: POTASSIUM CHLORIDE (SR) 20 MEQ TAB PO STA (07:58)
[2018-06-18] MEDS: SENNA/DOCUSATE NA (8.6MG/50MG) TAB PO SCH ×2 (09:00→20:33)
--- NOTE | 2018-06-18 09:14 | PN ---
Date/Time of Note Date/Time of Note DATE: 06/18/18 TIME: 09:14 Assessment/Plan VTE Prophylaxis Risk score (from [facility] [place]0 risk: 12 SCD applied (from Ns): Yes Pharmacological prophylaxis: warfarin tx Lines/Catheters IV Catheter Type (from [facility] PICC Line Central line still needed: Yes Urinary Cath still in place: Yes Reason Cath still needed: skin wounds contaminated by urine Assessment/Plan Hospital Course 1. Atrial fibrillation and prosthetic mitral valve. Coumadin dose has been increased to 6 mg. We will check followup PT/INR. 2. Anemia due to acute blood loss. We will do followup CBC. 3. History of retroperitoneal bleed after angiogram, status post stent placement. 4. Acute kidney injury, improved. Plan of care was discussed with the patient. 5. Anemia due to recent bleed. We will continue to monitor hemoglobin. Result Diagram: 06/18/18 0431 06/18/18 0431 Results 24hrs Laboratory Tests Test 06/17/18 17:25 06/17/18 23:14 06/18/18 04:31 White Blood Count 5.0 5.0 Red Blood Count 2.67 L 2.62 L Hemoglobin 8.2 L 8.0 L Hematocrit 25.5 L 25.1 L Mean Corpuscular Volume 95.5 95.8 Mean Corpuscular Hemoglobin 30.7 30.5 Mean Corpuscular Hemoglobin Concent 32.2 31.9 L Red Cell Distribution Width 14.7 H 14.5 Platelet Count 183 179 Mean Platelet Volume 9.7 9.7 Immature Granulocytes % 2.000 H 2.000 H Neutrophils % 77.0 78.0 H Lymphocytes % 10.2 L 10.4 L Monocytes % 7.4 7.0 Eosinophils % 2.8 2.2 Basophils % 0.6 0.4 Nucleated Red Blood Cells % 0.0 0.0 Immature Granulocytes # 0.100 H 0.100 H Neutrophils # 3.9 3.9 Lymphocytes # 0.5 L 0.5 L Monocytes # 0.4 0.4 Eosinophils # 0.1 0.1 Basophils # 0.0 0.0 Nucleated Red Blood Cells # 0.0 0.0 Activated Partial Thromboplast Time 57.0 H 67.6 H 68.3 H Sodium Level 137 Potassium Level 3.5 Chloride Level 100 Carbon Dioxide Level 30 Anion Gap 7 Blood Urea Nitrogen 25 H Creatinine 1.05 H Est Glomerular Filtrat Rate mL/min 53 L Glucose Level 132 Calcium Level 8.0 L Phosphorus Level 3.6 Magnesium Level 1.5 L Subjective 24 Hr Interval Summary Free Text/Dictation Patient has no complaints Exam/Review of Systems Exam Vitals Vital Signs Date Temp Pulse Resp B/P (MAP) Pulse Ox O2 O2 Flow FiO2 Time Delivery Rate 06/18/18 98.4 89 40 130/67 98 Room Air 08:00 (88) 06/17/18 21 21:00 Intake and Output 06/17/18 06/17/18 06/18/18 1515:00 23:00 07:00 IntakeIntake Total 180.0 ml 105.50 ml 294.5 ml OutputOutput Total 1225 ml 1160 ml 464 ml BalanceBalance -1045.0 ml -1054.50 ml -169.5 ml Constitutional: well developed Head: normocephalic, atraumatic Neck: supple Respiratory: clear to auscultation Cardiovascular: irregular rhythm Gastrointestinal: soft, non-tender Extremities: normal pulses Results Results 24hrs Laboratory Tests Test 06/17/18 17:25 06/17/18 23:14 06/18/18 04:31 White Blood Count 5.0 5.0 Red Blood Count 2.67 L 2.62 L Hemoglobin 8.2 L 8.0 L Hematocrit 25.5 L 25.1 L Mean Corpuscular Volume 95.5 95.8 Mean Corpuscular Hemoglobin 30.7 30.5 Mean Corpuscular Hemoglobin Concent 32.2 31.9 L Red Cell Distribution Width 14.7 H 14.5 Platelet Count 183 179 Mean Platelet Volume 9.7 9.7 Immature Granulocytes % 2.000 H 2.000 H Neutrophils % 77.0 78.0 H Lymphocytes % 10.2 L 10.4 L Monocytes % 7.4 7.0 Eosinophils % 2.8 2.2 Basophils % 0.6 0.4 Nucleated Red Blood Cells % 0.0 0.0 Immature Granulocytes # 0.100 H 0.100 H Neutrophils # 3.9 3.9 Lymphocytes # 0.5 L 0.5 L Monocytes # 0.4 0.4 Eosinophils # 0.1 0.1 Basophils # 0.0 0.0 Nucleated Red Blood Cells # 0.0 0.0 Activated Partial Thromboplast Time 57.0 H 67.6 H 68.3 H Sodium Level 137 Potassium Level 3.5 Chloride Level 100 Carbon Dioxide Level 30 Anion Gap 7 Blood Urea Nitrogen 25 H Creatinine 1.05 H Est Glomerular Filtrat Rate mL/min 53 L Glucose Level 132 Calcium Level 8.0 L Phosphorus Level 3.6 Magnesium Level 1.5 L Medications Medication Current Medications Acetaminophen (Tylenol Tab) 650 mg Q4H PRN PO FEVER GREATER THAN 100.6 Last administered on 06/11/18 01:38; Admin Dose 650 MG; Start 05/27/18 at 11:30 Al Hydrox/Mg Hydrox/Simethicone (Mag-Al Plus) 30 ml Q4H PRN PO GASTROINTESTINAL UPSET; Start 05/27/18 at 11:30 Ondansetron HCl (Zofran Inj) 4 mg Q4H PRN IV NAUSEA AND/OR VOMITING Last ad ministered on 06/06/18 06:05; Admin Dose 4 MG; Start 05/27/18 at 11:30 Levothyroxine Sodium (Synthroid) 50 mcg BEFORE BREAKFAST PO Last administered on 06/18/18 06:01; Admin Dose 50 MCG; Start 05/30/18 at 07:00 Mometasone Furoate (Asmanex) 1 puff DAILY INH Last administered on 06/16/18 08:10; Admin Dose 1 PUFF; Start 05/29/18 at 11:00 Atorvastatin Calcium (Lipitor) 10 mg DAILY@21 PO Last administered on 06/17/18 20:25; Admin Dose 10 MG; Start 05/29/18 at 21:00 Latanoprost (Xalatan) 1 drop HS BOTH EYES Last administered on 06/17/18 20:28; Admin Dose 1 DROP; Start 06/01/18 at 21:00 Amlodipine Besylate (Norvasc) 5 mg DAILY PO ; Start 06/03/18 at 09:00; Status Hold Pantoprazole (Protonix Tab) 40 mg DAILY@06 PO Last administered on 06/18/18 06:01; Admin Dose 40 MG; Start 06/05/18 at 06:00 Metoclopramide HCl (Reglan) 5 mg TID PRN IV Nausea; Start 06/06/18 at 11:00 Senna/Docusate Sodium (Senokot-S) 2 tab BID PO Last administered on 06/12/18 20:39; Admin Dose 2 TAB; Start 06/06/18 at 21:00 Polyethylene Glycol (Miralax) 17 gm BID PRN PO CONSTIPATION; Start 06/06/18 at 14:00 Bisacodyl (Dulcolax Supp) 10 mg DAILY PRN [place] CONSTIPATION; Start 06/06/18 at 14:00 IV Flush (NS 10 ml) 10 ml PRN PRN IV IV PROTOCOL; Start 06/06/18 at 16:00 Nystatin (Nystatin Susp) 5 ml QID PO Last administered on 06/17/18 20:25; Admin Dose 5 ML; Start 06/06/18 at 17:00 Metoprolol Tartrate (Lopressor) 25 mg BID PO Last administered on 06/17/18 20:25; Admin Dose 25 MG; Start 06/13/18 at 21:00 Metoprolol Tartrate (Lopressor) 5 mg Q4H PRN IV HR>110 Hold SBP<100; Start 06/13/18 at 10:30 Morphine Sulfate (morphine) 6 mg Q2H PRN PO FOR NON CARDIAC PAIN (4-10); Start 06/13/18 at 11:30 Morphine Sulfate (morphine) 2 mg Q2H PRN IV FOR NON CARDIAC PAIN (4-10); Start 06/15/18 at 16:00; Stop 06/19/18 at 16:00 Heparin Sodium (Porcine) (Heparin (1000 Units/ml)) 3,800 unit PER PROTOCOL PRN IV aPTT<47; Start 06/15/18 at 16:30 Heparin Sodium (Porcine) 250 ml @ 7.5 mls/hr PER PROTOCOL IV Last administered on 06/17/18 20:26; Admin Dose 8.5 MLS/HR; Start 06/15/18 at 16:30 Furosemide (Lasix) 20 mg BID DIURETICS IV Last administered on 06/18/18 06:01; Admin Dose 20 MG; Start 06/16/18 at 09:00 Warfarin Sodium (Coumadin) 6 mg DAILY@17 PO Last administered on 06/17/18 17:23; Admin Dose 6 MG; Start 06/17/18 at 17:00 ABDIRASHID PRATHER Jun 18, 2018 09:14
[2018-06-18] MEDS: NYSTATIN SUSP 5 ML CUP PO SCH ×4 (09:36→20:32)
[2018-06-18] MEDS: MOMETASONE 0.24 GM INHALER INH SCH (09:37)
[2018-06-18] MEDS: METOPROLOL 25 MG TAB PO SCH ×2 (09:37→20:32)
--- NOTE | 2018-06-18 10:12 | PN ---
DATE: 06/18/2018 SUBJECTIVE: The patient remains stable. No events overnight. The patient has had excellent urinary output. OBJECTIVE: VITAL SIGNS: Blood pressure is 133/53, respirations 33, pulse 83, temperature 98.8. HEENT: Head is normocephalic. NECK: Supple. HEART: Regular rate. LUNGS: Show diminished breath sounds at the base. ABDOMEN: Soft, nontender to palpation without rebound or guarding. EXTREMITIES: Negative for clubbing, cyanosis. Positive edema. DERMATOLOGIC: No rashes. MUSCULOSKELETAL: No joint effusions. NEUROLOGIC: No change in exam. MEDICATIONS: Reviewed. LABORATORY DATA: Shows white count 5.0, hemoglobin 8.0, platelet count is 179. Sodium 137, potassiu m 3.5, BUN 25, creatinine 1.05, magnesium is 1.5. ASSESSMENT AND PLAN: 1. Nonoliguric acute kidney injury with previous baseline creatinine of 0.6 mg/dL. Etiology of acut e kidney injury is secondary to acute tubular necrosis. The patient's renal function continues to im prove. Continue current treatment plan, supportive care, renally dose all meds. 2. Volume overload, improving. The patient remains on Lasix. We will continue for another 24 hours . Anticipate de-escalation diuretics. Monitor electrolytes and renal function closely. 3. Hypomagnesemia. We will continue to monitor and replete. 4. Anemia. Monitor H and H levels. 5. Mineral bone disorder. Monitor calcium and phosphorus levels. 6. Hypokalemia, improved. 7. Coronary artery disease. Continue medical management. 8. Hematuria, possibly from [place] catheter trauma in conjunction with heparin drip. Hematuria has r esolved. Continue to monitor. 9. Mechanical heart valve. Continue anticoagulation per cardiology. 10. Sepsis secondary to urinary tract infection. Continue current antibiotic regimen. 11. Hypothyroidism. Continue Synthroid. 12. Dyslipidemia. Continue statin therapy. 13. Hypertension. Continue current blood pressure regimen. 14. Intraabdominal hematoma, improving. The patient's pigtail is noted. 15. Epistaxis, resolved. Dictated By: GWYN FABIAN DO NR/NTS Conf#: [id number] DID#: [id number] CC: CHRIS LAZAR MD;*End[facility]*
--- NOTE | 2018-06-18 14:11 | CONS ---
Assessment/Plan Assessment/Plan Hospital Course (Demo Recall) IMP: 1.cad s/p LHC with no sig obstructive cad 2.HTN 3.RP Bleed s/p transfusions now stable and tolerating heparin/coumadin loading. Then had recurrent bled overnight now s/p covered stent to [employer]VERSE [employer]SEMBLER/Ext iliac. 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 Had hemoptysis with subsequent drop in Hgb again and holding of heparin. Had some mild blood tinged sputum 7.Hypothyroid 8. FOURNIER-negative Head CT 9. Fevers-with positive ua 10. UTI 11.ARF-? Contrast induced/compression from hematoma- now improving with in creased urine output and slowly decreasing medical staff services manager 12. Coagulopathy-being re loaded on coumadin 14. LE weakness-? compression from hematoma and exacerbated by femoral compression after cath-now resolved 15. arterial insuff- LLE- s/p [employer]/thrombolysis 06/04 successfully with palpable pulses/B DP/PT and remain that way 16. PAF/AFL-rate controlled 17. Hematuria-resolved at this time 18. Epistaxis Recc: -In ICU -Now on BB with well controlled Hr's -Continue statin -s/p course of abx's -ongoing ID f/u -Ongoing surgical f/u -F/U medical staff services manager/K closely. Renal now following. Now placed on daily lasix. Follow outpu t/medical staff services manager which continues to slowly improve and is now almost normalized completely -Have urology check vicnent as patient with bladder high residual with vincent in place? -Continue coumadin and follow INR closely which has not sigificantly increased in 2-3 days even with increasing doses of coumadin -Follow HGb clsoely which has relatively stable -Contineu IV heparin coverage as tolerated only and follow epistaxis and will hold if continues to have ongoing bleeding Consultation Date/Type/Reason Admit Date/Time May 28, 2018 at 17:52 Initial Consult Date 05/28/18 Type of Consult Cardiology Reason for Consultation MVR Requesting Provider: JULY VALENTIN MD Date/Time of Note DATE: 06/18/18 TIME: 14:04 Exam/Review of Systems Vital Signs Vitals Vital Signs Date Temp Pulse Resp B/P (MAP) Pulse Ox O2 O2 Flow FiO2 Time Delivery Rate 06/18/18 75 12:00 06/18/18 42 118/57 99 Room Air 11:00 (77) 06/18/18 98.4 08:00 06/17/18 21 21:00 Intake and Output 06/17/18 06/17/18 06/18/18 1515:00 23:00 07:00 IntakeIntake Total 180.0 ml 105.50 ml 294.5 ml OutputOutput Total 1225 ml 1160 ml 464 ml BalanceBalance -1045.0 ml -1054.50 ml -169.5 ml Exam Exam Review of Systems: CONSTITUTIONAL: No fevers, chills. PULMONARY: No sob CARDIOVASCULAR: No chest pain/palpitations GASTROINTESTINAL: No nausea/vomiting. GENITOURINARY: No hematuria/dysuria. MUSCULOSKELETAL: No myagias/arthalgias. PSYCHIATRIC: The patient denies depression. NEUROLOGIC: No weakness Constitutional: alert Psych: no complaints Head: normocephalic ENMT: mucosa pink and moist Neck: supple, jvd (9 cm water) Respiratory: diminished breath sounds Cardiovascular: regular rate and rhythm Gastrointestinal: soft, non-tender Musculoskeletal: muscle tone (normal) Extremities: edema (bilateral LE) Labs Result Diagram: 06/18/18 0431 06/18/18 0431 Results 24hrs Laboratory Tests Test 06/17/18 17:25 06/17/18 23:14 06/18/18 04:31 06/18/18 12:13 White Blood Count 5.0 5.0 Red Blood Count 2.67 L 2.62 L Hemoglobin 8.2 L 8.0 L Hematocrit 25.5 L 25.1 L Mean Corpuscular Volume 95.5 95.8 Mean Corpuscular 30.7 30.5 Hemoglobin Mean Corpuscular 32.2 31.9 L Hemoglobin Concent Red Cell Distribution 14.7 H 14.5 Width Platelet Count 183 179 Mean Platelet Volume 9.7 9.7 Immature Granulocytes % 2.000 H 2.000 H Neutrophils % 77.0 78.0 H Lymphocytes % 10.2 L 10.4 L Monocytes % 7.4 7.0 Eosinophils % 2.8 2.2 Basophils % 0.6 0.4 Nucleated Red Blood 0.0 0.0 Cells % Immature Granulocytes # 0.100 H 0.100 H Neutrophils # 3.9 3.9 Lymphocytes # 0.5 L 0.5 L Monocytes # 0.4 0.4 Eosinophils # 0.1 0.1 Basophils # 0.0 0.0 Nucleated Red Blood 0.0 0.0 Cells # Activated 57.0 H 67.6 H 68.3 H Pending Partial Thromboplast Time Sodium Level 137 Potassium Level 3.5 Chloride Level 100 Carbon Dioxide Level 30 Anion Gap 7 Blood Urea Nitrogen 25 H Creatinine 1.05 H Est Glomerular Filtrat 53 L Rate mL/min Glucose Level 132 Calcium Level 8.0 L Phosphorus Level 3.6 Magnesium Level 1.5 L Prothrombin Time 18.3 H Prothrombin Time Ratio 1.4 INR International 1.51 Normalized Ratio Medications Medications Current Medications Acetaminophen (Tylenol Tab) 650 mg Q4H PRN PO FEVER GREATER THAN 100.6 Last administered on 06/11/18 01:38; Admin Dose 650 MG; Start 05/27/18 at 11:30 Al Hydrox/Mg Hydrox/Simethicone (Mag-Al Plus) 30 ml Q4H PRN PO GASTROINTESTINAL UPSET; Start 05/27/18 at 11:30 Ondansetron HCl (Zofran Inj) 4 mg Q4H PRN IV NAUSEA AND/OR VOMITING Last administered on 06/06/18 06:05; Admin Dose 4 MG; Start 05/27/18 at 11:30 Levothyroxine Sodium (Synthroid) 50 mcg BEFORE BREAKFAST PO Last administered on 06/18/18 06:01; Admin Dose 50 MCG; Start 05/30/18 at 07:00 Mometasone Furoate (Asmanex) 1 puff DAILY INH Last administered on 06/18/18 09 :37; Admin Dose 1 PUFF; Start 05/29/18 at 11:00 Atorvastatin Calcium (Lipitor) 10 mg DAILY@21 PO Last administered on 06/17/18 20:25; Admin Dose 10 MG; Start 05/29/18 at 21:00 Latanoprost (Xalatan) 1 drop HS BOTH EYES Last administered on 06/17/18 20:28; Admin Dose 1 DROP; Start 06/01/18 at 21:00 Amlodipine Besylate (Norvasc) 5 mg DAILY PO ; Start 06/03/18 at 09:00; Status Hold Pantoprazole (Protonix Tab) 40 mg DAILY@06 PO Last administered on 06/18/18at 06:01; Admin Dose 40 MG; Start 06/05/18 at 06:00 Metoclopramide HCl (Reglan) 5 mg TID PRN IV Nausea; Start 06/06/18 at 11:00 Senna/Docusate Sodium (Senokot-S) 2 tab BID PO Last administered on 06/12/18at 20:39; Admin Dose 2 TAB; Start 06/06/18 at 21:00 Polyethylene Glycol (Miralax) 17 gm BID PRN PO CONSTIPATION; Start 06/06/18 at 14:00 Bisacodyl (Dulcolax Supp) 10 mg DAILY PRN [place] CONSTIPATION; Start 06/06/18 at 14:00 IV Flush (NS 10 ml) 10 ml PRN PRN IV IV PROTOCOL; Start 06/06/18 at 16:00 Nystatin (Nystatin Susp) 5 ml QID PO Last administered on 06/18/18at 13:51; Admin Dose 5 ML; Start 06/06/18 at 17:00 Metoprolol Tartrate (Lopressor) 25 mg BID PO Last administered on 06/18/18at 09:37; Admin Dose 25 MG; Start 06/13/18 at 21:00 Metoprolol Tartrate (Lopressor) 5 mg Q4H PRN IV HR>110 Hold SBP<100; Start 06/13/18 at 10:30 Morphine Sulfate (morphine) 6 mg Q2H PRN PO FOR NON CARDIAC PAIN (4-10); Start 06/13/18 at 11:30 Morphine Sulfate (morphine) 2 mg Q2H PRN IV FOR NON CARDIAC PAIN (4-10); Start 06/15/18 at 16:00; Stop 06/19/18 at 16:00 Heparin Sodium (Porcine) (Heparin (1000 Units/ml)) 3,800 unit PER PROTOCOL PRN IV aPTT<47; Start 06/15/18 at 16:30 Heparin Sodium (Porcine) 250 ml @ 7.5 mls/hr PER PROTOCOL IV Last administered on 06/17/18at 20:26; Admin Dose 8.5 MLS/HR; Start 06/15/18 at 16:30 Furosemide (Lasix) 20 mg BID DIURETICS IV Last administered on 06/18/18at 06:01; Admin Dose 20 MG; Start 06/16/18 at 09:00 Warfarin Sodium (Coumadin) 6 mg DAILY@17 PO Last administered on 06/17/18at 17:23; Admin Dose 6 MG; Start 06/17/18 at 17:00 CHRIS LAZAR Jun 18, 2018 14:11
[2018-06-18] MEDS ORDERED: WARFARIN 5 MG TAB PO SCH (17:00)
[2018-06-18] MEDS ORDERED: WARFARIN 2 MG TAB PO SCH (17:00)
--- NOTE | 2018-06-18 18:38 | CONS ---
Consult Date/Type/Reason Admit Date/Time May 28, 2018 at 17:52 Initial Consult Date 06/03/18 Type of Consultation: Urology Reason for Consultation Urine leakage around the Mensah catheter Requesting Provider: JULY VALENTIN MD Date/Time of Note DATE: 06/18/18 TIME: 18:34 Subjective Patient is feeling better. She denies any suprapubic pain. Objective Vitals Vital Signs Date Temp Pulse Resp B/P (MAP) Pulse Ox O2 O2 Flow FiO2 Time Delivery Rate 06/18/18 87 39 123/58 99 Room Air 18:00 (79) 06/18/18 98.6 16:00 06/17/18 21 21:00 Intake and Output 06/17/18 06/17/18 06/18/18 1515:00 23:00 07:00 IntakeIntake Total 180.0 ml 105.50 ml 303.0 ml OutputOutput Total 1225 ml 1160 ml 464 ml BalanceBalance -1045.0 ml -1054.50 ml -161.0 ml Exam Abdomen is softer. She still have some suprapubic fullness from the hematoma. The Mensah catheter is draining well and the urine is clear. The urine output was 1475 mL in the past 12 hours. Results/Medications Result Diagram: 06/18/18 0431 06/18/18 0431 Results 24 hrs Laboratory Tests Test 06/17/18 23:14 06/18/18 04:31 06/18/18 12:13 06/18/18 13:45 Activated 67.6 H 68.3 H 72.1 *H Partial Thromboplast Time White Blood Count 5.0 Red Blood Count 2.62 L Hemoglobin 8.0 L Hematocrit 25.1 L Mean Corpuscular Volume 95.8 Mean Corpuscular 30.5 Hemoglobin Mean Corpuscular 31.9 L Hemoglobin Concent Red Cell Distribution 14.5 Width Platelet Count 179 Mean Platelet Volume 9.7 Immature Granulocytes % 2.000 H Neutrophils % 78.0 H Lymphocytes % 10.4 L Monocytes % 7.0 Eosinophils % 2.2 Basophils % 0.4 Nucleated Red Blood 0.0 Cells % Immature Granulocytes # 0.100 H Neutrophils # 3.9 Lymphocytes # 0.5 L Monocytes # 0.4 Eosinophils # 0.1 Basophils # 0.0 Nucleated Red Blood 0.0 Cells # Sodium Level 137 Potassium Level 3.5 Chloride Level 100 Carbon Dioxide Level 30 Anion Gap 7 Blood Urea Nitrogen 25 H Creatinine 1.05 H Est Glomerular Filtrat 53 L Rate mL/min Glucose Level 132 Calcium Level 8.0 L Phosphorus Level 3.6 Magnesium Level 1.5 L Prothrombin Time 18.3 H Prothrombin Time Ratio 1.4 INR International 1.51 Normalized Ratio Home Meds Reported Medications Albuterol Sulfate* (Ventolin HFA*) 18 Gm Hfa.aer.ad, 2 PUFF INHALATION Q4H, #1 INHALER 05/26/18 Ergocalciferol (Vitamin D2) (VITAMIN D2) 50,000 Unit Capsule, 58185 UNIT PO [id number], CAP 05/23/18 Warfarin Sodium* (Coumadin*) 5 Mg Tablet, 5 MG PO Q TUES,THUR,SAT, TAB 05/23/18 Warfarin Sodium* (Coumadin*) 4 Mg Tablet, 4 MG PO Q MON,WED,FRI,SUN, TAB 05/23/18 Furosemide* (Furosemide*) 20 Mg Tablet, 20 MG PO DAILY, #60 TAB TAKE Q 2 DAYS 05/23/18 Simvastatin* (Zocor*) 20 Mg Tablet, 20 MG PO QHS, #30 TAB 05/23/18 Ranitidine Hcl* (Ranitidine Hcl*) 150 Mg Tablet, 150 MG PO HS, #30 TAB 05/23/18 Acetaminophen (Mapap) 500 Mg Capsule, 500 MG PO BID PRN for PAIN, CAP 05/23/18 Levothyroxine Sodium* (Levothyroxine Sodium*) 50 Mcg Tablet, 50 MCG PO BEFORE BREAKFAST, #30 TAB 05/23/18 Spironolactone* (Aldactone*) 25 Mg Tablet, 25 MG PO DAILY, #30 TAB 05/23/18 Beclomethasone Dipropionate (Qvar Redihaler (40 MCG)) 10.6 Gm Hfa.aeroba, 10.6 GM IH DAILY, INH 05/23/18 Amlodipine Besylate* (Norvasc*) 5 Mg Tablet, 5 MG PO BID, TAB 05/23/18 Losartan-Hydrochlorothiazide (Losartan-HCTZ) 100-25 Mg Tab, 1 TAB PO DAILY, TAB 05/23/18 Medications Current Medications Acetaminophen (Tylenol Tab) 650 mg Q4H PRN PO FEVER GREATER THAN 100.6 Last administered on 3/2/19at 01:38; Admin Dose 650 MG; Start 05/27/18 at 11:30 Al Hydrox/Mg Hydrox/Simethicone (Mag-Al Plus) 30 ml Q4H PRN PO GASTROINTESTINAL UPSET; Start 05/27/18 at 11:30 Ondansetron HCl (Zofran Inj) 4 mg Q4H PRN IV NAUSEA AND/OR VOMITING Last administered on 06/06/18 06:05; Admin Dose 4 MG; Start 05/27/18 at 11:30 Levothyroxine Sodium (Synthroid) 50 mcg BEFORE BREAKFAST PO Last administered on 06/18/18 06:01; Admin Dose 50 MCG; Start 05/30/18 at 07:00 Mometasone Furoate (Asmanex) 1 puff DAILY INH Last administered on 06/18/18 09:37; Admin Dose 1 PUFF; Start 05/29/18 at 11:00 Atorvastatin Calcium (Lipitor) 10 mg DAILY@21 PO Last administered on 06/17/18 20:25; Admin Dose 10 MG; Start 05/29/18 at 21:00 Latanoprost (Xalatan) 1 drop HS BOTH EYES Last administered on 06/17/18 20:28; Admin Dose 1 DROP; Start 06/01/18 at 21:00 Amlodipine Besylate (Norvasc) 5 mg DAILY PO ; Start 06/03/18 at 09:00; Status Hold Pantoprazole (Protonix Tab) 40 mg DAILY@06 PO Last administered on 06/18/18 06:01; Admin Dose 40 MG; Start 06/05/18 at 06:00 Metoclopramide HCl (Reglan) 5 mg TID PRN IV Nausea; Start 06/06/18 at 11:00 Senna/Docusate Sodium (Senokot-S) 2 tab BID PO Last administered on 06/12/18 20:39; Admin Dose 2 TAB; Start 06/06/18 at 21:00 Polyethylene Glycol (Miralax) 17 gm BID PRN PO CONSTIPATION; Start 06/06/18 at 14:00 Bisacodyl (Dulcolax Supp) 10 mg DAILY PRN [place] CONSTIPATION; Start 06/06/18 at 14:00 IV Flush (NS 10 ml) 10 ml PRN PRN IV IV PROTOCOL; Start 06/06/18 at 16:00 Nystatin (Nystatin Susp) 5 ml QID PO Last administered on 06/18/18 17:38; Admin Dose 5 ML; Start 06/06/18 at 17:00 Metoprolol Tartrate (Lopressor) 25 mg BID PO Last administered on 06/18/18 09:37; Admin Dose 25 MG; Start 06/13/18 at 21:00 Metoprolol Tartrate (Lopressor) 5 mg Q4H PRN IV HR>110 Hold SBP<100; Start 06/13/18 at 10:30 Morphine Sulfate (morphine) 6 mg Q2H PRN PO FOR NON CARDIAC PAIN (4-10); Start 06/13/18 at 11:30 Morphine Sulfate (morphine) 2 mg Q2H PRN IV FOR NON CARDIAC PAIN (4-10); Start 06/15/18 at 16:00; Stop 06/19/18 at 16:00 Heparin Sodium (Porcine) (Heparin (1000 Units/ml)) 3,800 unit PER PROTOCOL PRN IV aPTT<47; Start 06/15/18 at 16:30 Heparin Sodium (Porcine) 250 ml @ 7.5 mls/hr PER PROTOCOL IV Last administered on 06/17/18 20:26; Admin Dose 8.5 MLS/HR; Start 06/15/18 at 16:30 Furosemide (Lasix) 20 mg BID DIURETICS IV Last administered on 06/18/18 17:39; Admin Dose 20 MG; Start 06/16/18 at 09:00 Warfarin Sodium (Coumadin) 2 mg DAILY@17 PO Last administered on 06/18/18 17:38; Admin Dose 2 MG; Start 06/18/18 at 17:00 Warfarin Sodium (Coumadin) 5 mg DAILY@17 PO Last administered on 06/18/18 17:38; Admin Dose 5 MG; Start 06/18/18 at 17:00 Assessment/Plan Hospital Course (Demo Recall) 62-year-old female underwent coronary angiogram. She did have right femoral artery bleeding with a pseudoaneurysm which was managed by undergoing: Covered s tent placement 6 x 100 mm right common femoral artery and right external iliac artery She had no urine output and there was difficulty inserting a Mensah catheter. I did insert the catheter for her and she was anuric. Since then she has improved and has been making urine and the urine is clear. She does have a good urine output 1475 mL in the past 12 hours. Her creatinine did come down to 1.05. Urologically for now keep the Mensah catheter in place and if needed hand irrigate it JOAQUIN DE LEON MD Jun 18, 2018 18:38
--- NOTE | 2018-06-18 18:43 | CONS ---
[facility] HCIS Consult Follow-up Patient Name: Quyen Sexton Unit Number: [id number] Date of : 1955 Patient Status: Admitted Inpatient Attending Doctor: July Valentin MD Edit: SHARI MOLINA M.D. on 06/20/18 @ 01:35 Jesse: I discussed the management with JUILEN Hui and agree with below. Assessment/Plan Assessment/Plan Hospital Course (Demo Recall) assessment/impression - severe sepsis due to UTI, improved - SIRS due to acute blood loss, improved - nasopharyngeal bleed on 06/11/2018, resolved - s/p UTI due to E. coli, resolved. 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, s/p covered stent placement 6 x 100 mm right common femoral artery and right external iliac artery, abdominal aortogram, catheter introduction to the abdominal aorta, JOSÉ MIGUEL guidance into the central artery 06/02/2018 - s/p retroperitoneal bleed - s/p acute anemia requiring PRBC - s/p CT guided placement of drainage catheter into pelvic hematoma 06/05/2018-->removed on 06/09/2018 - FORREST, improved - s/p L heart catheterization on 05/27/2018 showing no significant obstructive CAD - [place] - H/o MVR with mechanical valve, in 1999 - cholelithiasis without e/o acute cholecystitis - Hypertension - Hyperlipidemia - Hypothyroidism - asthma - s/p FOURNIER, resolved. CT head shows no acute findings - venous JOSÉ MIGUEL of b/l LE was negative for DVT Recommendations: - Continue to monitor Pt off systemic antibiotic. Management d/w patient, her at bedside, GONZALO Cowart, and with Dr. Molina. Thank you Total critical care time spent: 40 min. Consultation Date/Type/Reason Admit Date/Time May 28, 2018 at 17:52 Initial Consult Date 06/03/18 Type of Consult ID Requesting Provider: JULY VALENTIN MD Date/Time of Note DATE: 06/18/18 TIME: 18:43 24 HR Interval Summary Free Text/Dictation D/w GONZALO Cowart, the patient has remainbed afebrile. Earlier today she had an episode of leaking f/c, possibly kinked, was assessed by MD and resolved. No more leaking. Patient is c/o the BLE swelling. Otherwise she had no complaints. Exam/Review of Systems Exam Vitals Vital Signs Date Temp Pulse Resp B/P (MAP) Pulse Ox O2 O2 Flow FiO2 Time Delivery Rate 06/18/18 87 39 123/58 99 Room Air 18:00 (79) 06/18/18 98.6 16:00 06/17/18 21 21:00 Intake and Output 06/17/18 06/17/18 06/18/18 1515:00 23:00 07:00 IntakeIntake Total 180.0 ml 105.50 ml 303.0 ml OutputOutput Total 1225 ml 1160 ml 464 ml BalanceBalance -1045.0 ml -1054.50 ml -161.0 ml Allergies Coded Allergies No Known Allergy (Unverified06/09/18) Constitutional: alert, oriented, well developed Psych: no complaints, nl mood/affect Head: normocephalic, atraumatic Eyes: nl conjunctiva, nl lids, nl sclera ENMT: nl external ears & nose, nl nasal mucosa & septum, mucosa pink and moist Neck: supple, non-tender (not swollen) Respiratory: clear to auscultation, normal air movement Cardiovascular: regular rate and rhythm, nl pulses Gastrointestinal: soft, non-tender Genitourinary - Female: other (f/c draining clear yellow urine with scant seds) Musculoskeletal: nl extremities to inspection Extremities: normal pulses, edema (BLE ), pitting pedal edema Neurological: 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 SPECIALIST II-XII intact, nl mental status, nl speech Skin: nl turgor, ecchymosis (scattered); No rash or lesions Results Result Diagram: 06/18/18 0431 06/18/18 0431 Results 24hrs Laboratory Tests Test 06/17/18 23:14 06/18/18 04:31 06/18/18 12:13 06/18/18 13:45 Activated 67.6 H 68.3 H 72.1 *H Partial Thromboplast Time White Blood Count 5.0 Red Blood Count 2.62 L Hemoglobin 8.0 L Hematocrit 25.1 L Mean Corpuscular Volume 95.8 Mean Corpuscular 30.5 Hemoglobin Mean Corpuscular 31.9 L Hemoglobin Concent Red Cell Distribution 14.5 Width Platelet Count 179 Mean Platelet Volume 9.7 Immature Granulocytes % 2.000 H Neutrophils % 78.0 H Lymphocytes % 10.4 L Monocytes % 7.0 Eosinophils % 2.2 Basophils % 0.4 Nucleated Red Blood 0.0 Cells % Immature Granulocytes # 0.100 H Neutrophils # 3.9 Lymphocytes # 0.5 L Monocytes # 0.4 Eosinophils # 0.1 Basophils # 0.0 Nucleated Red Blood 0.0 Cells # Sodium Level 137 Potassium Level 3.5 Chloride Level 100 Carbon Dioxide Level 30 Anion Gap 7 Blood Urea Nitrogen 25 H Creatinine 1.05 H Est Glomerular Filtrat 53 L Rate mL/min Glucose Level 132 Calcium Level 8.0 L Phosphorus Level 3.6 Magnesium Level 1.5 L Prothrombin Time 18.3 H Prothrombin Time Ratio 1.4 INR International 1.51 Normalized Ratio Medications Medication Current Medications Acetaminophen (Tylenol Tab) 650 mg Q4H PRN PO FEVER GREATER THAN 100.6 Last administered on 06/11/18 01:38; Admin Dose 650 MG; Start 05/27/18 at 11:30 Al Hydrox/Mg Hydrox/Simethicone (Mag-Al Plus) 30 ml Q4H PRN PO GASTROINTESTINAL UPSET; Start 05/27/18 at 11:30 Ondansetron HCl (Zofran Inj) 4 mg Q4H PRN IV NAUSEA AND/OR VOMITING Last administered on 06/06/18at 06:05; Admin Dose 4 MG; Start 05/27/18 at 11:30 Levothyroxine Sodium (Synthroid) 50 mcg BEFORE BREAKFAST PO Last administered on 06/18/18 06:01; Admin Dose 50 MCG; Start 05/30/18 at 07:00 Mometasone Furoate (Asmanex) 1 puff DAILY INH Last administered on 06/18/18at 09:37; Admin Dose 1 PUFF; Start 05/29/18 at 11:00 Atorvastatin Calcium (Lipitor) 10 mg DAILY@21 PO Last administered on 06/17/18 20:25; Admin Dose 10 MG; Start 05/29/18 at 21:00 Latanoprost (Xalatan) 1 drop HS BOTH EYES Last administered on 06/17/18 20:28; Admin Dose 1 DROP; Start 06/01/18 at 21:00 Amlodipine Besylate (Norvasc) 5 mg DAILY PO ; Start 06/03/18 at 09:00; Status Hold Pantoprazole (Protonix Tab) 40 mg DAILY@06 PO Last administered on 06/18/18 06:01; Admin Dose 40 MG; Start 06/05/18 at 06:00 Metoclopramide HCl (Reglan) 5 mg TID PRN IV Nausea; Start 06/06/18 at 11:00 Senna/Docusate Sodium (Senokot-S) 2 tab BID PO Last administered on 06/12/18 20:39; Admin Dose 2 TAB; Start 06/06/18 at 21:00 Polyethylene Glycol (Miralax) 17 gm BID PRN PO CONSTIPATION; Start 06/06/18 at 14:00 Bisacodyl (Dulcolax Supp) 10 mg DAILY PRN IN CONSTIPATION; Start 06/06/18 at 14:00 IV Flush (NS 10 ml) 10 ml PRN PRN IV IV PROTOCOL; Start 06/06/18 at 16:00 Nystatin (Nystatin Susp) 5 ml QID PO Last administered on 06/18/18at 17:38; Admin Dose 5 ML; Start 06/06/18 at 17:00 Metoprolol Tartrate (Lopressor) 25 mg BID PO Last administered on 06/18/18 09:37; Admin Dose 25 MG; Start 06/13/18 at 21:00 Metoprolol Tartrate (Lopressor) 5 mg Q4H PRN IV HR>110 Hold SBP<100; Start 06/13/18 at 10:30 Morphine Sulfate (morphine) 6 mg Q2H PRN PO FOR NON CARDIAC PAIN (4-10); Start 06/13/18 at 11:30 Morphine Sulfate (morphine) 2 mg Q2H PRN IV FOR NON CARDIAC PAIN (4-10); Start 06/15/18 at 16:00; Stop 06/19/18 at 16:00 Heparin Sodium (Porcine) (Heparin (1000 Units/ml)) 3,800 unit PER PROTOCOL PRN IV aPTT<47; Start 06/15/18 at 16:30 Heparin Sodium (Porcine) 250 ml @ 7.5 mls/hr PER PROTOCOL IV Last administered on 06/17/18 20:26; Admin Dose 8.5 MLS/HR; Start 06/15/18 at 16:30 Furosemide (Lasix) 20 mg BID DIURETICS IV Last administered on 06/18/18at 17:39; Admin Dose 20 MG; Start 06/16/18 at 09:00 Warfarin Sodium (Coumadin) 2 mg DAILY@17 PO Last administered on 06/18/18 17:38; Admin Dose 2 MG; Start 06/18/18 at 17:00 Warfarin Sodium (Coumadin) 5 mg DAILY@17 PO Last administered on 06/18/18 17:38; Admin Dose 5 MG; Start 06/18/18 at 17:00 WILIAM HUI NP Jun 18, 2018 18:43
[2018-06-18] MEDS: ATORVASTATIN 10 MG TAB PO SCH (20:31)
[2018-06-18] MEDS: LATANOPROST 0.005% 2.5 ML OPH BOTH EYES SCH (20:32)
[2018-06-19] VITALS (24 sets, daily range): BP systolic 106–130; BP diastolic 48–79; PULSE 76–94; RESP 21–45
[2018-06-19] MEDS: HEPARIN 25000 UNITS/250 ML 250 ML IV SCH (01:27)
[2018-06-19] MEDS: PANTOPRAZOLE (EC) 40 MG TAB PO SCH (05:31)
[2018-06-19] MEDS: FUROSEMIDE 20 MG INJ IV SCH (05:31)
[2018-06-19] MEDS: LEVOTHYROXINE 50 MCG TAB PO SCH (08:06)
[2018-06-19] MEDS ORDERED: POTASSIUM CHLORIDE (SR) 20 MEQ TAB PO STA (08:23)
[2018-06-19] MEDS ORDERED: MAGNESIUM SULFATE 2 GM/50 ML 50 ML IVPB ONE (08:30)
[2018-06-19] MEDS: NYSTATIN SUSP 5 ML CUP PO SCH ×4 (08:43→20:35)
[2018-06-19] MEDS: SENNA/DOCUSATE NA (8.6MG/50MG) TAB PO SCH ×2 (08:43→20:35)
[2018-06-19] MEDS: MOMETASONE 0.24 GM INHALER INH SCH (08:44)
[2018-06-19] MEDS: METOPROLOL 25 MG TAB PO SCH ×2 (08:56→20:36)
--- NOTE | 2018-06-19 08:59 | PN ---
DATE: 06/19/2018 SUBJECTIVE: The patient is stable, no events overnight. The patient had excellent urinary output. OBJECTIVE: VITAL SIGNS: Blood pressure is 128/58, respirations 33, pulse 80, temperature 98.4. HEENT: Head is normocephalic. NECK: Supple. HEART: Regular rate. LUNGS: Show diminished breath sounds at the base. ABDOMEN: Soft, nontender to palpation without rebound or guarding. EXTREMITIES: Negative for clubbing, cyanosis. Trace edema. DERMATOLOGIC: No rashes. MUSCULOSKELETAL: No joint effusions. NEUROLOGIC: No change in exam. MEDICATIONS: The patient's medications have been reviewed. LABORATORY DATA: Shows white count 4.3, hemoglobin 8.2, platelet count is 178. Sodium 138, potassiu m 3.6, BUN 27, creatinine 1.07, calcium 8.1. MICROBIOLOGY: Reviewed. Laboratory data and medications have been reviewed. ASSESSMENT AND PLAN: 1. Nonoliguric acute kidney injury with previous baseline creatinine of 0.6 mg/dL. Etiology of acut e kidney injury secondary to acute tubular necrosis. Renal function has improved. Continue current treatment plan, supportive care, renally dose all meds. 2. Volume overload, improving, will deescalate Lasix from IV to p.o. Will continue to monitor I's a nd O's, electrolytes, renal function closely. 3. Hypomagnesemia. Continue to monitor and replete as needed. 4. Anemia. Monitor hemoglobin and hematocrit levels. 5. Mineral bone disorder, monitor calcium and phosphorus levels. 6. Hypokalemia, improved. 7. Coronary artery disease. Continue medical management. 8. Hematuria, improved. Continue to monitor. 9. Mechanical heart valve. Continue anticoagulation per cardiology. 10. Sepsis secondary to urinary tract infection. Continue current antibiotic regimen. 11. Hypothyroidism. Continue Synthroid. 12. Dyslipidemia. Continue statin therapy. 13. Hypertension. Continue current blood pressure regimen. 14. Intraabdominal hematoma, improving. The patient's pigtail is noted. 15. Epistaxis, resolved. Dictated By: GWYN FABIAN DO NR/NTS Conf#: [id number] DID#: [id number] CC: JULY VALENTIN MD; CHRIS LAZAR MD; JOAQUIN DE LEON MD;*End*
--- NOTE | 2018-06-19 10:45 | CONS ---
[facility] HCIS Consult Follow-up Patient Name: Quyen Sexton Unit Number: [id number] Date of : 1955 Patient Status: Admitted Inpatient Attending Doctor: July Valentin MD Edit: SHARI MOLINA M.D. on 06/20/18 @ 01:35 Jesse: I discussed the management with JULIEN Hui and agree with below. Assessment/Plan Assessment/Plan Hospital Course (Demo Recall) assessment/impression - severe sepsis due to UTI, improved - SIRS due to acute blood loss, improved - nasopharyngeal bleed on 06/11/2018, resolved - s/p UTI due to E. coli, resolved. 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, s/p covered stent placement 6 x 100 mm right common femoral artery and right external iliac artery, abdominal aortogram, catheter introduction to the abdominal aorta, JOSÉ MIGUEL guidance into the central artery 06/02/2018 - s/p retroperitoneal bleed - s/p acute anemia requiring PRBC - s/p CT guided placement of drainage catheter into pelvic hematoma 06/05/2018-->removed on 06/09/2018 - FORREST, improved - s/p L heart catheterization on 05/27/2018 showing no significant obstructive CAD - [place] - H/o MVR with mechanical valve, in 1999 - cholelithiasis without e/o acute cholecystitis - Hypertension - Hyperlipidemia - Hypothyroidism - asthma - s/p FOURNIER, resolved. CT head shows no acute findings - venous JOSÉ MIGUEL of b/l LE was negative for DVT Recommendations: - Continue to monitor Pt off systemic antibiotic. Management d/w patient, her at bedside, GONZALO Cowart and with Dr. Molina. Thank you Total critical care time spent: 35 minutes Consultation Date/Type/Reason Admit Date/Time May 28, 2018 at 17:52 Initial Consult Date 06/03/18 Type of Consult ID Requesting Provider: JULY VALENTIN MD Date/Time of Note DATE: 06/19/18 TIME: 10:45 24 HR Interval Summary Free Text/Dictation D/w GONZALO Cowart, there have been no acute issues and patient has remained afebrile. Blood cultures negative. Patient denied ROS when reviewed. Exam/Review of Systems Exam Vitals Vital Signs Date Temp Pulse Resp B/P (MAP) Pulse Ox O2 O2 Flow FiO2 Time Delivery Rate 06/19/18 88 08:00 06/19/18 36 130/64 100 Room Air 08:00 (86) 06/19/18 98.4 04:00 06/17/18 21 21:00 Intake and Output 06/18/18 06/18/18 06/19/18 1515:00 23:00 07:00 IntakeIntake Total 469.5 ml 310.5 ml 196.5 ml OutputOutput Total 1675 ml 990 ml 775 ml BalanceBalance -1205.5 ml -679.5 ml -578.5 ml Allergies Coded Allergies No Known Allergy (Unverified06/09/18) Exam Constitutional: alert, oriented, well developed Psych: no complaints, nl mood/affect Head: normocephalic, atraumatic Eyes: nl conjunctiva, nl lids, nl sclera ENMT: nl external ears & nose, nl nasal mucosa & septum, mucosa pink and moist (thin brownish discoloration still noted on tongue.) Neck: supple, non-tender (not swollen) Respiratory: clear to auscultation, normal air movement Cardiovascular: regular rate and rhythm, nl pulses Gastrointestinal: soft, non-tender (LUQ, RLQ, RUQ), tender (mildly LLQ) Genitourinary - Female: other (f/c draining clear yellow urine with scant seds) Musculoskeletal: nl extremities to inspection Extremities: normal pulses, edema (BLE ), pitting pedal edema Neurological: APPLE PEELER OPERATOR II-XII intact, nl mental status, nl speech Skin: nl turgor, ecchymosis (scattered); No rash or lesions Results Result Diagram: 06/19/18 0405 06/19/185 Results 24hrs Laboratory Tests Test 06/18/18 12:13 06/18/18 13:45 06/18/18 20:42 06/19/18 04:05 Prothrombin Time 18.3 H 18.7 H Prothrombin Time Ratio 1.4 1.5 INR International 1.51 1.55 Normalized Ratio Activated 72.1 *H 69.7 H 74.0 *H Partial Thromboplast Time White Blood Count 4.3 L Red Blood Count 2.65 L Hemoglobin 8.2 L Hematocrit 25.5 L Mean Corpuscular Volume 96.2 Mean Corpuscular 30.9 Hemoglobin Mean Corpuscular 32.2 Hemoglobin Concent Red Cell Distribution 14.6 H Width Platelet Count 178 Mean Platelet Volume 10.1 Immature Granulocytes % 1.900 H Neutrophils % 72.6 Lymphocytes % 13.9 L Monocytes % 8.8 Eosinophils % 2.3 Basophils % 0.5 Nucleated Red Blood 0.0 Cells % Immature Granulocytes # 0.080 H Neutrophils # 3.1 Lymphocytes # 0.6 L Monocytes # 0.4 Eosinophils # 0.1 Basophils # 0.0 Nucleated Red Blood 0.0 Cells # Sodium Level 138 Potassium Level 3.6 Chloride Level 99 Carbon Dioxide Level 30 Anion Gap 9 Blood Urea Nitrogen 26 H Creatinine 1.07 H Est Glomerular Filtrat 52 L Rate mL/min Glucose Level 123 Calcium Level 8.1 L Phosphorus Level 3.7 Magnesium Level 1.7 Medications Medication Current Medications Acetaminophen (Tylenol Tab) 650 mg Q4H PRN PO FEVER GREATER THAN 100.6 Last administered on 06/11/18at 01:38; Admin Dose 650 MG; Start 05/27/18 at 11:30 Al Hydrox/Mg Hydrox/Simethicone (Mag-Al Plus) 30 ml Q4H PRN PO GASTROINTESTINAL UPSET; Start 05/27/18 at 11:30 Ondansetron HCl (Zofran Inj) 4 mg Q4H PRN IV NAUSEA AND/OR VOMITING Last administered on 06/06/18at 06:05; Admin Dose 4 MG; Start 05/27/18 at 11:30 Levothyroxine Sodium (Synthroid) 50 mcg BEFORE BREAKFAST PO Last administered on 06/19/18at 08:06; Admin Dose 50 MCG; Start 05/30/18 at 07:00 Mometasone Furoate (Asmanex) 1 puff DAILY INH Last administered on 06/19/18 08:44; Admin Dose 1 PUFF; Start 05/29/18 at 11:00 Atorvastatin Calcium (Lipitor) 10 mg DAILY@21 PO Last administered on 06/18/18 20:31; Admin Dose 10 MG; Start 05/29/18 at 21:00 Latanoprost (Xalatan) 1 drop HS BOTH EYES Last administered on 06/18/18 20:32; Admin Dose 1 DROP; Start 06/01/18 at 21:00 Amlodipine Besylate (Norvasc) 5 mg DAILY PO ; Start 06/03/18 at 09:00; Status Hold Pantoprazole (Protonix Tab) 40 mg DAILY@06 PO Last administered on 06/19/18 05:31; Admin Dose 40 MG; Start 06/05/18 at 06:00 Metoclopramide HCl (Reglan) 5 mg TID PRN IV Nausea; Start 06/06/18 at 11:00 Senna/Docusate Sodium (Senokot-S) 2 tab BID PO Last administered on 06/18/18 20:33; Admin Dose 2 TAB; Start 06/06/18 at 21:00 Polyethylene Glycol (Miralax) 17 gm BID PRN PO CONSTIPATION; Start 06/06/18 at 14:00 Bisacodyl (Dulcolax Supp) 10 mg DAILY PRN IN CONSTIPATION; Start 06/06/18 at 14:00 IV Flush (NS 10 ml) 10 ml PRN PRN IV IV PROTOCOL; Start 06/06/18 at 16:00 Nystatin (Nystatin Susp) 5 ml QID PO Last administered on 06/19/18 08:43; Admin Dose 5 ML; Start 06/06/18 at 17:00 Metoprolol Tartrate (Lopressor) 25 mg BID PO Last administered on 06/19/18 08:56; Admin Dose 25 MG; Start 06/13/18 at 21:00 Metoprolol Tartrate (Lopressor) 5 mg Q4H PRN IV HR>110 Hold SBP<100; Start 06/13/18 at 10:30 Morphine Sulfate (morphine) 6 mg Q2H PRN PO FOR NON CARDIAC PAIN (4-10); Start 06/13/18 at 11:30 Morphine Sulfate (morphine) 2 mg Q2H PRN IV FOR NON CARDIAC PAIN (4-10); Start 06/15/18 at 16:00; Stop 06/19/18 at 16:00 Heparin Sodium (Porcine) (Heparin (1000 Units/ml)) 3,800 unit PER PROTOCOL PRN IV aPTT<47; Start 06/15/18 at 16:30 Heparin Sodium (Porcine) 250 ml @ 7.5 mls/hr PER PROTOCOL IV Last administered on 06/19/18at 01:27; Admin Dose 7.5 MLS/HR; Start 06/15/18 at 16:30 Warfarin Sodium (Coumadin) 2 mg DAILY@17 PO Last administered on 06/18/18at 17: 38; Admin Dose 2 MG; Start 06/18/18 at 17:00 Warfarin Sodium (Coumadin) 5 mg DAILY@17 PO Last administered on 06/18/18at 17:38; Admin Dose 5 MG; Start 06/18/18 at 17:00 Bumetanide (Bumex) 0.5 mg BID DIURETICS PO ; Start 06/19/18 at 18:00 WILIAM HUI NP Jun 19, 2018 10:45
--- NOTE | 2018-06-19 11:00 | PN ---
Date/Time of Note Date/Time of Note DATE: 06/19/18 TIME: 10:59 Assessment/Plan VTE Prophylaxis [place] [facility] [place] risk: 4 SCD applied [place]from [facility] [place] No SCD contraindicated: other Pharmacological prophylaxis: warfarin tx Lines/Catheters IV C[facility]ter Type (from [facility] PICC Line Central line still needed: Yes Urinary Cath still in place: Yes Reason Cath still needed: skin wounds contaminated by urine Assessment/Plan Hospital Course 1. Atrial fibrillation and prosthetic mitral valve. Coumadin dose has been increased to 6 mg. We will check followup PT/INR. 2. Anemia due to acute blood loss. We will do followup CBC. 3. History of retroperitoneal bleed after angiogram, status post stent placement. 4. Acute kidney injury, improved. Plan of care was discussed with the patient. 5. Anemia due to recent bleed. We will continue to monitor hemoglobin. Result Diagram: 06/19/18 0405 06/19/18 0405 Results 24hrs Laboratory Tests Test 06/18/18 12:13 06/18/18 13:45 06/18/18 20:42 06/19/18 04:05 Prothrombin Time 18.3 H 18.7 H Prothrombin Time Ratio 1.4 1.5 INR International 1.51 1.55 Normalized Ratio Activated 72.1 *H 69.7 H 74.0 *H Partial Thromboplast Time White Blood Count 4.3 L Red Blood Count 2.65 L Hemoglobin 8.2 L Hematocrit 25.5 L Mean Corpuscular Volume 96.2 Mean Corpuscular 30.9 Hemoglobin Mean Corpuscular 32.2 Hemoglobin Concent Red Cell Distribution 14.6 H Width Platelet Count 178 Mean Platelet Volume 10.1 Immature Granulocytes % 1.900 H Neutrophils % 72.6 Lymphocytes % 13.9 L Monocytes % 8.8 Eosinophils % 2.3 Basophils % 0.5 Nucleated Red Blood 0.0 Cells % Immature Granulocytes # 0.080 H Neutrophils # 3.1 Lymphocytes # 0.6 L Monocytes # 0.4 Eosinophils # 0.1 Basophils # 0.0 Nucleated Red Blood 0.0 Cells # Sodium Level 138 Potassium Level 3.6 Chloride Level 99 Carbon Dioxide Level 30 Anion Gap 9 Blood Urea Nitrogen 26 H Creatinine 1.07 H Est Glomerular Filtrat 52 L Rate mL/min Glucose Level 123 Calcium Level 8.1 L Phosphorus Level 3.7 Magnesium Level 1.7 Subjective 24 Hr Interval Summary Free Text/Dictation Patient has no complaints, appears to be more awake today Exam/Review of Systems Exam Vitals Vital Signs Date Temp Pulse Resp B/P (MAP) Pulse Ox O2 O2 Flow FiO2 Time Delivery Rate 06/19/18 88 08:00 06/19/18 36 130/64 100 Room Air 08:00 (86) 06/19/18 98.4 04:00 06/17/18 21 21:00 Intake and Output 06/18/18 06/18/18 06/19/18 1515:00 23:00 07:00 IntakeIntake Total 469.5 ml 310.5 ml 196.5 ml OutputOutput Total 1675 ml 990 ml 775 ml BalanceBalance -1205.5 ml -679.5 ml -578.5 ml Constitutional: well developed Head: normocephalic, atraumatic Neck: supple Respiratory: clear to auscultation Cardiovascular: regular rate and rhythm Gastrointestinal: soft, non-tender Extremities: normal pulses Results Results 24hrs Laboratory Tests Test 06/18/18 12:13 06/18/18 13:45 06/18/18 20:42 06/19/18 04:05 Prothrombin Time 18.3 H 18.7 H Prothrombin Time Ratio 1.4 1.5 INR International 1.51 1.55 Normalized Ratio Activated 72.1 *H 69.7 H 74.0 *H Partial Thromboplast Time White Blood Count 4.3 L Red Blood Count 2.65 L Hemoglobin 8.2 L Hematocrit 25.5 L Mean Corpuscular Volume 96.2 Mean Corpuscular 30.9 Hemoglobin Mean Corpuscular 32.2 Hemoglobin Concent Red Cell Distribution 14.6 H Width Platelet Count 178 Mean Platelet Volume 10.1 Immature Granulocytes % 1.900 H Neutrophils % 72.6 Lymphocytes % 13.9 L Monocytes % 8.8 Eosinophils % 2.3 Basophils % 0.5 Nucleated Red Blood 0.0 Cells % Immature Granulocytes # 0.080 H Neutrophils # 3.1 Lymphocytes # 0.6 L Monocytes # 0.4 Eosinophils # 0.1 Basophils # 0.0 Nucleated Red Blood 0.0 Cells # Sodium Level 138 Potassium Level 3.6 Chloride Level 99 Carbon Dioxide Level 30 Anion Gap 9 Blood Urea Nitrogen 26 H Creatinine 1.07 H Est Glomerular Filtrat 52 L Rate mL/min Glucose Level 123 Calcium Level 8.1 L Phosphorus Level 3.7 Magnesium Level 1.7 Medications Medication Current Medications Acetaminophen (Tylenol Tab) 650 mg Q4H PRN PO FEVER GREATER THAN 100.6 Last administered on 06/11/18 01:38; Admin Dose 650 MG; Start 05/27/18 at 11:30 Al Hydrox/Mg Hydrox/Simethicone (Mag-Al Plus) 30 ml Q4H PRN PO GASTROINTESTINAL UPSET; Start 05/27/18 at 11:30 Ondansetron HCl (Zofran Inj) 4 mg Q4H PRN IV NAUSEA AND/OR VOMITING Last administered on 06/06/18 06:05; Admin Dose 4 MG; Start 05/27/18 at 11:30 Levothyroxine Sodium (Synthroid) 50 mcg BEFORE BREAKFAST PO Last administered on 06/19/18 08:06; Admin Dose 50 MCG; Start 05/30/18 at 07:00 Mometasone Furoate (Asmanex) 1 puff DAILY INH Last administered on 06/19/18 08:44; Admin Dose 1 PUFF; Start 05/29/18 at 11:00 Atorvastatin Calcium (Lipitor) 10 mg DAILY@21 PO Last administered on 06/18/18 20:31; Admin Dose 10 MG; Start 05/29/18 at 21:00 Latanoprost (Xalatan) 1 drop HS BOTH EYES Last administered on 06/18/18 20:32; Admin Dose 1 DROP; Start 06/01/18 at 21:00 Amlodipine Besylate (Norvasc) 5 mg DAILY PO ; Start 06/03/18 at 09:00; Status Hold Pantoprazole (Protonix Tab) 40 mg DAILY@06 PO Last administered on 06/19/18 05:31; Admin Dose 40 MG; Start 06/05/18 at 06:00 Metoclopramide HCl (Reglan) 5 mg TID PRN IV Nausea; Start 06/06/18 at 11:00 Senna/Docusate Sodium (Senokot-S) 2 tab BID PO Last administered on 06/18/18 20:33; Admin Dose 2 TAB; Start 06/06/18 at 21:00 Polyethylene Glycol (Miralax) 17 gm BID PRN PO CONSTIPATION; Start 06/06/18 at 14:00 Bisacodyl (Dulcolax Supp) 10 mg DAILY PRN [place] CONSTIPATION; Start 06/06/18 at 14:00 IV Flush (NS 10 ml) 10 ml PRN PRN IV IV PROTOCOL; Start 06/06/18 at 16:00 Nystatin (Nystatin Susp) 5 ml QID PO Last administered on 06/19/18at 08:43; Admin Dose 5 ML; Start 06/06/18 at 17:00 Metoprolol Tartrate (Lopressor) 25 mg BID PO Last administered on 06/19/18at 08:56; Admin Dose 25 MG; Start 06/13/18 at 21:00 Metoprolol Tartrate (Lopressor) 5 mg Q4H PRN IV HR>110 Hold SBP<100; Start 06/13/18 at 10:30 Morphine Sulfate (morphine) 6 mg Q2H PRN PO FOR NON CARDIAC PAIN (4-10); Start 06/13/18 at 11:30 Morphine Sulfate (morphine) 2 mg Q2H PRN IV FOR NON CARDIAC PAIN (4-10); Start 06/15/18 at 16:00; Stop 06/19/18 at 16:00 Heparin Sodium (Porcine) (Heparin (1000 Units/ml)) 3,800 unit PER PROTOCOL PRN IV aPTT<47; Start 06/15/18 at 16:30 Heparin Sodium (Porcine) 250 ml @ 7.5 mls/hr PER PROTOCOL IV Last administered on 06/19/18at 01:27; Admin Dose 7.5 MLS/HR; Start 06/15/18 at 16:30 Warfarin Sodium (Coumadin) 2 mg DAILY@17 PO Last administered on 06/18/18at 17:38; Admin Dose 2 MG; Start 06/18/18 at 17:00 Warfarin Sodium (Coumadin) 5 mg DAILY@17 PO Last administered on 06/18/18at 17:38; Admin Dose 5 MG; Start 06/18/18 at 17:00 Bumetanide (Bumex) 0.5 mg BID DIURETICS PO ; Start 06/19/18 at 18:00 ABDIRASHID PRATHER Jun 19, 2018 11:00
--- NOTE | 2018-06-19 14:14 | CONS ---
Assessment/Plan Assessment/Plan Hospital Course (Demo Recall) IMP: 1.cad s/p LHC with no sig obstructive cad 2.HTN 3.RP Bleed s/p transfusions now stable and tolerating heparin/coumadin loading. 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 Stable collection by abd CT 06/06 but still with pigtail catheter in place 4.HL 5.MVR-mechanical 6.anemia- s/p repair of R [employer] MARKET LEADER/illiac. Had hemoptysis with subsequent drop in Hgb again and holding of heparin. Had some mild blood tinged sputum 7.Hypothyroid 8. FOURNIER-negative Head CT 9. Fevers-with positive ua 10. UTI 11.ARF-? 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 Coagulopathy-being re loaded on coumadin 14. LE weakness-? compression from hematoma and exacerbated by femoral compression after cath-now resolved 15. arterial insuff- LLE- s/p CIGAR BINDER/thrombolysis 06/04 successfully with palpable pulses/B DP/PT and remain that way 16. PAF/AFL-rate controlled 17. Hematuria-resolved at this time 18. Epistaxis-improved Recc: -In ICU -Now on BB with well controlled Hr's -Continue statin -s/p course of abx's -ongoing ID f/u -Ongoing surgical f/u -F/U workers compensation legal secretary/K closely. Renal now following. Now placed on daily lasix. Follow output/workers compensation legal secretary which continues to slowly improve and is now almost normalized completely -Have urology check vincent as patient with bladder high residual with vincent in place? -Continue coumadin and follow INR closely which has not sigificantly increased in 2-3 days even with increasing doses of coumadin and thus will incresae further -Follow HGb clsoely which has relatively stable -Contineu IV heparin coverage as tolerated only and with currently resolved epistaxis Consultation Date/Type/Reason Admit Date/Time May 28, 2018 at 17:52 Initial Consult Date 05/28/18 Type of Consult Cardiology Reason for Consultation MVR Requesting Provider: JULY VALENTIN MD Date/Time of Note DATE: 06/19/18 TIME: 14:12 Exam/Review of Systems Vital Signs Vitals Vital Signs Date Temp Pulse Resp B/P (MAP) Pulse Ox O2 O2 Flow FiO2 Time Delivery Rate 06/19/18 78 12:00 06/19/18 38 115/56 98 Room Air 11:00 (75) 06/19/18 98.4 04:00 06/17/18 21 21:00 Intake and Output 06/18/18 06/18/18 06/19/18 1515:00 23:00 07:00 IntakeIntake Total 469.5 ml 310.5 ml 196.5 ml OutputOutput Total 1675 ml 990 ml 775 ml BalanceBalance -1205.5 ml -679.5 ml -578.5 ml Exam Exam Review of Systems: CONSTITUTIONAL: No fevers, chills. PULMONARY: No sob CARDIOVASCULAR: No chest pain/palpitations GASTROINTESTINAL: No nausea/vomiting. GENITOURINARY: No hematuria/dysuria. MUSCULOSKELETAL: No myagias/arthalgias. PSYCHIATRIC: The patient denies depression. NEUROLOGIC: No weakness Constitutional: alert Psych: no complaints Head: normocephalic ENMT: mucosa pink and moist Neck: supple, jvd (9 cm water) Respiratory: diminished breath sounds Cardiovascular: regular rate and rhythm Gastrointestinal: soft, non-tender Musculoskeletal: muscle tone (normal) Extremities: pitting pedal edema (bilateral LE) Neurological: other (No focal deficits) Labs Result Diagram: 06/19/18 0405 06/19/18 0405 Results 24hrs Laboratory Tests Test 06/18/18 20:42 06/19/18 04:05 06/19/18 11:59 Activated Partial Thromboplast Time 69.7 H 74.0 *H 72.4 *H White Blood Count 4.3 L Red Blood Count 2.65 L Hemoglobin 8.2 L Hematocrit 25.5 L Mean Corpuscular Volume 96.2 Mean Corpuscular Hemoglobin 30.9 Mean Corpuscular Hemoglobin Concent 32.2 Red Cell Distribution Width 14.6 H Platelet Count 178 Mean Platelet Volume 10.1 Immature Granulocytes % 1.900 H Neutrophils % 72.6 Lymphocytes % 13.9 L Monocytes % 8.8 Eosinophils % 2.3 Basophils % 0.5 Nucleated Red Blood Cells % 0.0 Immature Granulocytes # 0.080 H Neutrophils # 3.1 Lymphocytes # 0.6 L Monocytes # 0.4 Eosinophils # 0.1 Basophils # 0.0 Nucleated Red Blood Cells # 0.0 Prothrombin Time 18.7 H Prothrombin Time Ratio 1.5 INR International Normalized Ratio 1.55 Sodium Level 138 Potassium Level 3.6 Chloride Level 99 Carbon Dioxide Level 30 Anion Gap 9 Blood Urea Nitrogen 26 H Creatinine 1.07 H Est Glomerular Filtrat Rate mL/min 52 L Glucose Level 123 Calcium Level 8.1 L Phosphorus Level 3.7 Magnesium Level 1.7 Medications Medications Current Medications Acetaminophen (Tylenol Tab) 650 mg Q4H PRN PO FEVER GREATER THAN 100.6 Last administered on 06/11/18 01:38; Admin Dose 650 MG; Start 05/27/18 at 11:30 Al Hydrox/Mg Hydrox/Simethicone (Mag-Al Plus) 30 ml Q4H PRN PO GASTROINTESTINAL UPSET; Start 05/27/18 at 11:30 Ondansetron HCl (Zofran Inj) 4 mg Q4H PRN IV NAUSEA AND/OR VOMITING Last administered on 06/06/18 06:05; Admin Dose 4 MG; Start 05/27/18 at 11:30 Levothyroxine Sodium (Synthroid) 50 mcg BEFORE BREAKFAST PO Last administered on 06/19/18 08:06; Admin Dose 50 MCG; Start 05/30/18 at 07:00 Mometasone Furoate (Asmanex) 1 puff DAILY INH Last administered on 06/19/18 08:44; Admin Dose 1 PUFF; Start 05/29/18 at 11:00 Atorvastatin Calcium (Lipitor) 10 mg DAILY@21 PO Last administered on 06/18/18 20:31; Admin Dose 10 MG; Start 05/29/18 at 21:00 Latanoprost (Xalatan) 1 drop HS BOTH EYES Last administered on 06/18/18 20:32; Admin Dose 1 DROP; Start 06/01/18 at 21:00 Amlodipine Besylate (Norvasc) 5 mg DAILY PO ; Start 06/03/18 at 09:00; Status Hold Pantoprazole (Protonix Tab) 40 mg DAILY@06 PO Last administered on 06/19/18 05:31; Admin Dose 40 MG; Start 06/05/18 at 06:00 Metoclopramide HCl (Reglan) 5 mg TID PRN IV Nausea; Start 06/06/18 at 11:00 Senna/Docusate Sodium (Senokot-S) 2 tab BID PO Last administered on 06/18/18at 20:33; Admin Dose 2 TAB; Start 06/06/18 at 21:00 Polyethylene Glycol (Miralax) 17 gm BID PRN PO CONSTIPATION; Start 06/06/18 at 14:00 Bisacodyl (Dulcolax Supp) 10 mg DAILY PRN [place] CONSTIPATION; Start 06/06/18 at 14:00 IV Flush (NS 10 ml) 10 ml PRN PRN IV IV PROTOCOL; Start 06/06/18 at 16:00 Nystatin (Nystatin Susp) 5 ml QID PO Last administered on 06/19/18at 14:01; Admin Dose 5 ML; Start 06/06/18 at 17:00 Metoprolol Tartrate (Lopressor) 25 mg BID PO Last administered on 06/19/18at 08:56; Admin Dose 25 MG; Start 06/13/18 at 21:00 Metoprolol Tartrate (Lopressor) 5 mg Q4H PRN IV HR>110 Hold SBP<100; Start 06/13/18 at 10:30 Morphine Sulfate (morphine) 6 mg Q2H PRN PO FOR NON CARDIAC PAIN (4-10); Start 06/13/18 at 11:30 Morphine Sulfate (morphine) 2 mg Q2H PRN IV FOR NON CARDIAC PAIN (4-10); Start 06/15/18 at 16:00; Stop 06/19/18 at 16:00 Heparin Sodium (Porcine) (Heparin (1000 Units/ml)) 3,800 unit PER PROTOCOL PRN IV aPTT<47; Start 06/15/18 at 16:30 Heparin Sodium (Porcine) 250 ml @ 7.5 mls/hr PER PROTOCOL IV Last administered on 06/19/18at 01:27; Admin Dose 7.5 MLS/HR; Start 06/15/18 at 16:30 Warfarin Sodium (Coumadin) 2 mg DAILY@17 PO Last administered on 06/18/18at 17:38; Admin Dose 2 MG; Start 06/18/18 at 17:00 Warfarin Sodium (Coumadin) 5 mg DAILY@17 PO Last administered on 06/18/18at 17:38; Admin Dose 5 MG; Start 06/18/18 at 17:00 Bumetanide (Bumex) 0.5 mg BID DIURETICS PO ; Start 06/19/18 at 18:00 CHRIS LAZAR Jun 19, 2018 14:14
--- NOTE | 2018-06-19 16:08 | CONS ---
Consult Date/Type/Reason Admit Date/Time May 28, 2018 at 17:52 Initial Consult Date 06/03/18 Type of Consultation: Urology Reason for Consultation Urinary retention and pelvic pain secondary to pelvic hematoma Requesting Provider: JULY VALENTIN MD Date/Time of Note DATE: 06/19/18 TIME: 16:05 Subjective The patient is feeling much better, she is awake and alert and follows commands Objective Vitals Vital Signs Date Temp Pulse Resp B/P (MAP) Pulse Ox O2 O2 Flow FiO2 Time Delivery Rate 06/19/18 77 30 108/54 100 Room Air 14:00 (72) 06/19/18 98.2 12:00 06/17/18 21 21:00 Intake and Output 06/18/18 06/18/18 06/19/18 1515:00 23:00 07:00 IntakeIntake Total 469.5 ml 310.5 ml 196.5 ml OutputOutput Total 1675 ml 990 ml 775 ml BalanceBalance -1205.5 ml -679.5 ml -578.5 ml Exam Mensah catheter is draining good and the urine is clear. Occasionally she may have some drainage around the catheter. Her urine output is very good and her creatinine is now 1.07 Results/Medications Result Diagram: 06/19/18 0405 06/19/18 0405 Results 24 hrs Laboratory Tests Test 06/18/18 20:42 06/19/18 04:05 06/19/18 11:59 Activated Partial Thromboplast Time 69.7 H 74.0 *H 72.4 *H White Blood Count 4.3 L Red Blood Count 2.65 L Hemoglobin 8.2 L Hematocrit 25.5 L Mean Corpuscular Volume 96.2 Mean Corpuscular Hemoglobin 30.9 Mean Corpuscular Hemoglobin Concent 32.2 Red Cell Distribution Width 14.6 H Platelet Count 178 Mean Platelet Volume 10.1 Immature Granulocytes % 1.900 H Neutrophils % 72.6 Lymphocytes % 13.9 L Monocytes % 8.8 Eosinophils % 2.3 Basophils % 0.5 Nucleated Red Blood Cells % 0.0 Immature Granulocytes # 0.080 H Neutrophils # 3.1 Lymphocytes # 0.6 L Monocytes # 0.4 Eosinophils # 0.1 Basophils # 0.0 Nucleated Red Blood Cells # 0.0 Prothrombin Time 18.7 H Prothrombin Time Ratio 1.5 INR International Normalized Ratio 1.55 Sodium Level 138 Potassium Level 3.6 Chloride Level 99 Carbon Dioxide Level 30 Anion Gap 9 Blood Urea Nitrogen 26 H Creatinine 1.07 H Est Glomerular Filtrat Rate mL/min 52 L Glucose Level 123 Calcium Level 8.1 L Phosphorus Level 3.7 Magnesium Level 1.7 Home Meds Reported Medications Albuterol Sulfate* (Ventolin HFA*) 18 Gm Hfa.aer.ad, 2 PUFF INHALATION Q4H, #1 INHALER 05/26/18 Ergocalciferol (Vitamin D2) (VITAMIN D2) 50,000 Unit Capsule, 88899 UNIT PO [id number], CAP 05/23/18 Warfarin Sodium* (Coumadin*) 5 Mg Tablet, 5 MG PO Q TUES,THUR,SAT, TAB 05/23/18 Warfarin Sodium* (Coumadin*) 4 Mg Tablet, 4 MG PO Q MON,WED,FRI,SUN, TAB 05/23/18 Furosemide* (Furosemide*) 20 Mg Tablet, 20 MG PO DAILY, #60 TAB TAKE Q 2 DAYS 05/23/18 Simvastatin* (Zocor*) 20 Mg Tablet, 20 MG PO QHS, #30 TAB 05/23/18 Ranitidine Hcl* (Ranitidine Hcl*) 150 Mg Tablet, 150 MG PO HS, #30 TAB 05/23/18 Acetaminophen (Mapap) 500 Mg Capsule, 500 MG PO BID PRN for PAIN, CAP 05/23/18 Levothyroxine Sodium* (Levothyroxine Sodium*) 50 Mcg Tablet, 50 MCG PO BEFORE BREAKFAST, #30 TAB 05/23/18 Spironolactone* (Aldactone*) 25 Mg Tablet, 25 MG PO DAILY, #30 TAB 05/23/18 Beclomethasone Dipropionate (Qvar Redihaler (40 MCG)) 10.6 Gm Hfa.aeroba, 10.6 GM IH DAILY, INH 05/23/18 Amlodipine Besylate* (Norvasc*) 5 Mg Tablet, 5 MG PO BID, TAB 05/23/18 Losartan-Hydrochlorothiazide (Losartan-HCTZ) 100-25 Mg Tab, 1 TAB PO DAILY, TAB 05/23/18 Medications Current Medications Acetaminophen (Tylenol Tab) 650 mg Q4H PRN PO FEVER GREATER THAN 100.6 Last administered on 06/11/18at 01:38; Admin Dose 650 MG; Start 05/27/18 at 11:30 Al Hydrox/Mg Hydrox/Simethicone (Mag-Al Plus) 30 ml Q4H PRN PO GASTROINTESTINAL UPSET; Start 05/27/18 at 11:30 Ondansetron HCl (Zofran Inj) 4 mg Q4H PRN IV NAUSEA AND/OR VOMITING Last ad ministered on 06/06/18 06:05; Admin Dose 4 MG; Start 05/27/18 at 11:30 Levothyroxine Sodium (Synthroid) 50 mcg BEFORE BREAKFAST PO Last administered on 06/19/18 08:06; Admin Dose 50 MCG; Start 05/30/18 at 07:00 Mometasone Furoate (Asmanex) 1 puff DAILY INH Last administered on 06/19/18 08:44; Admin Dose 1 PUFF; Start 05/29/18 at 11:00 Atorvastatin Calcium (Lipitor) 10 mg DAILY@21 PO Last administered on 06/18/18 20:31; Admin Dose 10 MG; Start 05/29/18 at 21:00 Latanoprost (Xalatan) 1 drop HS BOTH EYES Last administered on 06/18/18 20:32; Admin Dose 1 DROP; Start 06/01/18 at 21:00 Amlodipine Besylate (Norvasc) 5 mg DAILY PO ; Start 06/03/18 at 09:00; Status Hold Pantoprazole (Protonix Tab) 40 mg DAILY@06 PO Last administered on 06/19/18 05:31; Admin Dose 40 MG; Start 06/05/18 at 06:00 Metoclopramide HCl (Reglan) 5 mg TID PRN IV Nausea; Start 06/06/18 at 11:00 Senna/Docusate Sodium (Senokot-S) 2 tab BID PO Last administered on 06/18/18 20:33; Admin Dose 2 TAB; Start 06/06/18 at 21:00 Polyethylene Glycol (Miralax) 17 gm BID PRN PO CONSTIPATION; Start 06/06/18 at 14:00 Bisacodyl (Dulcolax Supp) 10 mg DAILY PRN [place] CONSTIPATION; Start 06/06/18 at 14:00 IV Flush (NS 10 ml) 10 ml PRN PRN IV IV PROTOCOL; Start 06/06/18 at 16:00 Nystatin (Nystatin Susp) 5 ml QID PO Last administered on 06/19/18at 14:01; Admin Dose 5 ML; Start 06/06/18 at 17:00 Metoprolol Tartrate (Lopressor) 25 mg BID PO Last administered on 06/19/18at 08:56; Admin Dose 25 MG; Start 06/13/18 at 21:00 Metoprolol Tartrate (Lopressor) 5 mg Q4H PRN IV HR>110 Hold SBP<100; Start 06/13/18 at 10:30 Morphine Sulfate (morphine) 6 mg Q2H PRN PO FOR NON CARDIAC PAIN (4-10); Start 06/13/18 at 11:30 Heparin Sodium (Porcine) (Heparin (1000 Units/ml)) 3,800 unit PER PROTOCOL PRN IV aPTT<47; Start 06/15/18 at 16:30 Heparin Sodium (Porcine) 250 ml @ 7.5 mls/hr PER PROTOCOL IV Last administered on 06/19/18at 01:27; Admin Dose 7.5 MLS/HR; Start 06/15/18 at 16:30 Bumetanide (Bumex) 0.5 mg BID DIURETICS PO ; Start 06/19/18 at 18:00 Warfarin Sodium (Coumadin) 10 mg DAILY@17 PO ; Start 06/19/18 at 17:00 Assessment/Plan Hospital Course (Demo Recall) 62-year-old female underwent coronary angiogram. 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 I did insert the catheter for her and she was anuric. Since then she has improved and has been making urine and the urine is clear. She does have a good urine output 3440ml in past 24 hours. Her creatinine did come down to 1.07. Urologically for now keep the Mensah catheter in place if needed to monitor her urine output otherwise can be removed and see if she can urinate on her own. JOAQUIN DE LEON MD Jun 19, 2018 16:08
[2018-06-19] MEDS: BUMETANIDE 0.5 MG TAB PO SCH (18:06)
[2018-06-19] MEDS: WARFARIN 10 MG TAB PO SCH (18:31)
[2018-06-19] MEDS: LATANOPROST 0.005% 2.5 ML OPH BOTH EYES SCH (20:35)
[2018-06-19] MEDS: ATORVASTATIN 10 MG TAB PO SCH (20:35)
[2018-06-20] VITALS (24 sets, daily range): BP systolic 99–138; BP diastolic 47–97; PULSE 73–94; RESP 26–40
[2018-06-20] MEDS: BUMETANIDE 0.5 MG TAB PO SCH ×2 (05:21→17:39)
[2018-06-20] MEDS: PANTOPRAZOLE (EC) 40 MG TAB PO SCH (05:21)
[2018-06-20] MEDS: LEVOTHYROXINE 50 MCG TAB PO SCH (06:53)
[2018-06-20] MEDS: METOPROLOL 25 MG TAB PO SCH ×3 (08:34→20:49)
[2018-06-20] MEDS: MOMETASONE 0.24 GM INHALER INH SCH (08:34)
[2018-06-20] MEDS: NYSTATIN SUSP 5 ML CUP PO SCH ×4 (08:34→20:48)
[2018-06-20] MEDS: SENNA/DOCUSATE NA (8.6MG/50MG) TAB PO SCH ×2 (08:34→20:49)
[2018-06-20] MEDS: HEPARIN 25000 UNITS/250 ML 250 ML IV SCH (08:44)
--- NOTE | 2018-06-20 09:17 | PN ---
DATE: 06/20/2018 SUBJECTIVE: The patient is in serious but stable condition. No other acute events noted. No hemopt ysis, hematemesis, or hematochezia. OBJECTIVE: VITAL SIGNS: Blood pressure is 115/60, pulse 81, temperature 98.6. HEENT: Head is normocephalic. NECK: Supple. HEART: Regular rate. LUNGS: Show diminished breath sounds at the base. ABDOMEN: Soft, nontender to palpation. No rebound or guarding. EXTREMITIES: Negative for clubbing, cyanosis. Positive edema. DERMATOLOGIC: No rashes. MUSCULOSKELETAL: No joint effusion. NEUROLOGIC: No change in exam. MEDICATIONS: Reviewed. LABORATORY DATA: From 06/19/2018 was reviewed. Laboratory data from 06/20/2018 is pending. ASSESSMENT AND PLAN: 1. Nonoliguric acute kidney injury with previous baseline creatinine of 0.6 mg/dL. Etiology of acut e kidney injury is secondary to acute tubular necrosis. Renal function is improving. Continue curr nt treatment plans, supportive care, renally dose all medicines. 2. Volume overload, improving. Continue current diuretic regimen and monitor I's and O's and electr olytes closely. 3. Hypomagnesemia. Continue to monitor and replete as needed. 4. Anemia. Continue to monitor hemoglobin and hematocrit levels. 5. Coronary artery disease. Continue medical management. 6. Mechanical heart valve. Continue anticoagulation per cardiology. 7. Sepsis secondary to urinary tract infection. Continue current treatment plan. 8. Hypothyroidism. Continue Synthroid. 9. Dyslipidemia. Continue statin therapy. 10. Hypertension. Continue current blood pressure regimen. 11. Intraabdominal hematoma. The patient is status post pigtail placement. Continue to monitor. 12. Epistaxis, resolved. Dictated By: GWYN FABIAN DO NR/NTS Conf#: [id number] DID#: [id number] CC: CHRIS LAZAR MD; JULY VALENTIN MD; JOAQUIN DE LEON MD;*EndCC*
--- NOTE | 2018-06-20 10:38 | CONS ---
Assessment/Plan Assessment/Plan Hospital Course (Demo Recall) assessment/impression - severe sepsis due to UTI, improved - SIRS due to acute blood loss, improved - nasopharyngeal bleed on 06/11/2018, resolved - s/p UTI due to E. coli, resolved. 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, s/p covered stent placement 6 x 100 mm right common femoral artery and right external iliac artery, abdominal aortogram, catheter introduction to the abdominal aorta, JOSÉ MIGUEL guidance into the central artery 06/02/2018 - s/p retroperitoneal bleed - s/p acute anemia requiring PRBC - s/p CT guided placement of drainage catheter into pelvic hematoma 06/05/2018-->removed on 06/09/2018 - FORREST, improved - s/p L heart catheterization on 05/27/2018 showing no significant obstructive CAD - CAD s/p CABG in in 1982 - H/o MVR with mechanical valve, in 1999 - cholelithiasis without e/o acute cholecystitis - Hypertension - Hyperlipidemia - Hypothyroidism - asthma - s/p FOURNIER, resolved. CT head shows no acute findings - venous JOSÉ MIGUEL of b/l LE was negative for DVT Recommendations: - Continue to monitor Pt off systemic antibiotic. Management d/w patient, GONZALO Sapp, and with Dr. Hughes. Thank you Total critical care time spent: 35 min. Consultation Date/Type/Reason Admit Date/Time May 28, 2018 at 17:52 Initial Consult Date 06/03/18 Type of Consult ID Requesting Provider: JULY VALENTIN MD Date/Time of Note DATE: 06/20/18 TIME: 10:38 24 HR Interval Summary Free Text/Dictation Patient has remained afebrile with no acute issues reported by nursing. No leaking from vincent reported today by GONZALO sapp. All ROS reviewed and denied by patient. Exam/Review of Systems Exam Vitals Vital Signs Date Temp Pulse Resp B/P (MAP) Pulse Ox O2 O2 Flow FiO2 Time Delivery Rate 06/20/18 87 38 128/65 98 Room Air 09:00 (86) 06/20/18 99.2 08:00 06/17/18 21 21:00 Intake and Output 06/19/18 06/19/18 06/20/18 1414:59 22:59 06:59 IntakeIntake Total 465.0 ml 392.0 ml 55.0 ml OutputOutput Total 1275 ml 655 ml 335 ml BalanceBalance -810.0 ml -263.0 ml -280.0 ml Allergies Coded Allergies No Known Allergy (Unverified06/09/18) Exam Constitutional: alert, oriented, well developed, other (sitting up in a chair at the bedside) Psych: no complaints, nl mood/affect Head: normocephalic, atraumatic Eyes: nl conjunctiva, nl lids, nl sclera ENMT: nl external ears & nose, nl nasal mucosa & septum, mucosa pink and moist (thin brownish discoloration still noted on tongue.) Neck: supple, non-tender (not swollen) Respiratory: clear to auscultation, normal air movement Cardiovascular: regular rate and rhythm, nl pulses Gastrointestinal: soft, non-tender (LUQ, RLQ, RUQ), tender (mildly LLQ) Genitourinary - Female: other (f/c draining clear yellow urine) Musculoskeletal: nl extremities to inspection Extremities: normal pulses, edema (BLE ), pitting pedal edema Neurological: SUPERVISOR CRACK OFF II-XII intact, nl mental status, nl speech Skin: nl turgor, ecchymosis (scattered); No rash or lesions Results Result Diagram: 06/20/18 0311 06/20/18 0311 Results 24hrs Laboratory Tests Test 06/19/18 11:59 06/19/18 18:33 06/20/18 03:11 Activated Partial Thromboplast Time 72.4 *H 59.8 H 55.7 H White Blood Count 3.8 L Red Blood Count 2.46 L Hemoglobin 7.6 L Hematocrit 23.8 L Mean Corpuscular Volume 96.7 Mean Corpuscular Hemoglobin 30.9 Mean Corpuscular Hemoglobin Concent 31.9 L Red Cell Distribution Width 14.6 H Platelet Count 162 Mean Platelet Volume 10.0 Immature Granulocytes % 1.600 H Neutrophils % 71.8 Lymphocytes % 14.6 L Monocytes % 7.8 Eosinophils % 3.7 Basophils % 0.5 Nucleated Red Blood Cells % 0.0 Immature Granulocytes # 0.060 H Neutrophils # 2.8 Lymphocytes # 0.6 L Monocytes # 0.3 Eosinophils # 0.1 Basophils # 0.0 Nucleated Red Blood Cells # 0.0 Prothrombin Time 19.2 H Prothrombin Time Ratio 1.5 INR International Normalized Ratio 1.61 Sodium Level 136 Potassium Level 3.9 Chloride Level 100 Carbon Dioxide Level 27 Anion Gap 9 Blood Urea Nitrogen 22 H Creatinine 0.88 Est Glomerular Filtrat Rate mL/min > 60 Glucose Level 140 Calcium Level 8.0 L Phosphorus Level 3.3 Magnesium Level 2.0 Medications Medication Current Medications Acetaminophen (Tylenol Tab) 650 mg Q4H PRN PO FEVER GREATER THAN 100.6 Last administered on 06/11/18 01:38; Admin Dose 650 MG; Start 05/27/18 at 11:30 Al Hydrox/Mg Hydrox/Simethicone (Mag-Al Plus) 30 ml Q4H PRN PO GASTROINTESTINAL UPSET; Start 05/27/18 at 11:30 Ondansetron HCl (Zofran Inj) 4 mg Q4H PRN IV NAUSEA AND/OR VOMITING Last administered on 06/06/18 06:05; Admin Dose 4 MG; Start 05/27/18 at 11:30 Levothyroxine Sodium (Synthroid) 50 mcg BEFORE BREAKFAST PO Last administered on 06/20/18 06:53; Admin Dose 50 MCG; Start 05/30/18 at 07:00 Mometasone Furoate (Asmanex) 1 puff DAILY INH Last administered on 06/20/18 08:34; Admin Dose 1 PUFF; Start 05/29/18 at 11:00 Atorvastatin Calcium (Lipitor) 10 mg DAILY@21 PO Last administered on 06/19/18 20:35; Admin Dose 10 MG; Start 05/29/18 at 21:00 Latanoprost (Xalatan) 1 drop HS BOTH EYES Last administered on 06/19/18 20:35; Admin Dose 1 DROP; Start 06/01/18 at 21:00 Amlodipine Besylate (Norvasc) 5 mg DAILY PO ; Start 06/03/18 at 09:00; Status Hold Pantoprazole (Protonix Tab) 40 mg DAILY@06 PO Last administered on 06/20/18 05:21; Admin Dose 40 MG; Start 06/05/18 at 06:00 Metoclopramide HCl (Reglan) 5 mg TID PRN IV Nausea; Start 06/06/18 at 11:00 Senna/Docusate Sodium (Senokot-S) 2 tab BID PO Last administered on 06/19/18at 20:35; Admin Dose 2 TAB; Start 06/06/18 at 21:00 Polyethylene Glycol (Miralax) 17 gm BID PRN PO CONSTIPATION; Start 06/06/18 at 14:00 Bisacodyl (Dulcolax Supp) 10 mg DAILY PRN [place] CONSTIPATION; Start 06/06/18 at 14:00 IV Flush (NS 10 ml) 10 ml PRN PRN IV IV PROTOCOL; Start 06/06/18 at 16:00 Nystatin (Nystatin Susp) 5 ml QID PO Last administered on 06/20/18 08:34; Admin Dose 5 ML; Start 06/06/18 at 17:00 Metoprolol Tartrate (Lopressor) 25 mg BID PO Last administered on 06/20/18 08:36; Admin Dose 25 MG; Start 06/13/18 at 21:00 Metoprolol Tartrate (Lopressor) 5 mg Q4H PRN IV HR>110 Hold SBP<100; Start 06/13/18 at 10:30 Morphine Sulfate (morphine) 6 mg Q2H PRN PO FOR NON CARDIAC PAIN (4-10); Start 06/13/18 at 11:30 Heparin Sodium (Porcine) (Heparin (1000 Units/ml)) 3,800 unit PER PROTOCOL PRN IV aPTT<47; Start 06/15/18 at 16:30 Heparin Sodium (Porcine) 250 ml @ 7.5 mls/hr PER PROTOCOL IV Last administered on 06/20/18at 08:44; Admin Dose 8 MLS/HR; Start 06/15/18 at 16:30 Bumetanide (Bumex) 0.5 mg BID DIURETICS PO Last administered on 06/20/18 05:21; Admin Dose 0.5 MG; Start 06/19/18 at 18:00 Warfarin Sodium (Coumadin) 10 mg DAILY@17 PO Last administered on 06/19/18at 18:31; Admin Dose 10 MG; Start 06/19/18 at 17:00 WILIAM HUI NP Jun 20, 2018 10:38
--- NOTE | 2018-06-20 11:19 | CONS ---
Assessment/Plan Assessment/Plan Hospital Course (Demo Recall) IMP: 1.cad s/p LHC with no sig obstructive cad 2.HTN 3.RP Bleed s/p transfusions now stable and tolerating heparin/coumadin loading. Then had recurrent bled overnight now s/p covered stent to GENERAL MANAGER/Ext iliac. Stable collection by abd CT 06/06 but still with pigtail catheter in place 4.HL 5.MVR-mechanical 6.anemia- s/p repair of R GENERAL MANAGER/illiac. Had hemoptysis with subsequent drop in Hgb again and holding of heparin. Had some mild blood tinged sputum 7.Hypothyroid 8. FOURNIER-negative Head CT 9. Fevers-with positive ua 10. UTI 11.ARF-? Contrast induced/compression from hematoma- now improving with in creased urine output and slowly decreasing aircraft launch and recovery technician 12. Coagulopathy-being re loaded on coumadin 14. LE weakness-? compression from hematoma and exacerbated by femoral compression after cath-now resolved 15. arterial insuff- LLE- s/p PSYCHOLOGICAL OPERATIONS/thrombolysis 06/04 successfully with palpable pulses/B DP/PT and remain that way 16. PAF/AFL-rate controlled 17. Hematuria-resolved at this time 18. Epistaxis-improved Recc: -In ICU -Now on BB with well controlled Hr's -Continue statin -s/p course of abx's -ongoing ID f/u -Ongoing surgical f/u -F/U aircraft launch and recovery technician/K closely with creatnine now normalized -Continue coumadin and follow INR closely which has very slowly increased even on significantly increasing doses of coumadin -Follow HGb clsoely whichhad mild downtrend today -Contineu IV heparin coverage as tolerated only and with currently resolved epistaxis Consultation Date/Type/Reason Admit Date/Time May 28, 2018 at 17:52 Initial Consult Date 05/28/18 Type of Consult Cardiology Reason for Consultation MVR Requesting Provider: JULY VALENTIN MD Date/Time of Note DATE: 06/20/18 TIME: 11:15 Exam/Review of Systems Vital Signs Vitals Vital Signs Date Temp Pulse Resp B/P (MAP) Pulse Ox O2 O2 Flow FiO2 Time Delivery Rate 06/20/18 85 34 113/57 99 Room Air 10:00 (75) 06/20/18 99.2 08:00 06/17/18 21 21:00 Intake and Output 3/10/19 3/10/19 3/11/19 1414:59 22:59 06:59 IntakeIntake Total 465.0 ml 392.0 ml 55.0 ml OutputOutput Total 1275 ml 655 ml 335 ml BalanceBalance -810.0 ml -263.0 ml -280.0 ml Exam Exam Review of Systems: CONSTITUTIONAL: No fevers, chills. PULMONARY: No sob CARDIOVASCULAR: No chest pain/palpitations GASTROINTESTINAL: No nausea/vomiting. GENITOURINARY: No hematuria/dysuria. MUSCULOSKELETAL: No myagias/arthalgias. PSYCHIATRIC: The patient denies depression. NEUROLOGIC: No weakness Constitutional: alert, oriented Psych: no complaints Head: normocephalic ENMT: mucosa pink and moist Neck: supple, jvd (9 cm water) Respiratory: clear to auscultation Cardiovascular: regular rate and rhythm Gastrointestinal: soft, non-tender Musculoskeletal: muscle tone (normal) Extremities: edema (none) Neurological: other (No focal deficits) Labs Result Diagram: 06/20/18 0311 06/20/18 0311 Results 24hrs Laboratory Tests Test 06/19/18 11:59 06/19/18 18:33 06/20/18 03:11 Activated Partial Thromboplast Time 72.4 *H 59.8 H 55.7 H White Blood Count 3.8 L Red Blood Count 2.46 L Hemoglobin 7.6 L Hematocrit 23.8 L Mean Corpuscular Volume 96.7 Mean Corpuscular Hemoglobin 30.9 Mean Corpuscular Hemoglobin Concent 31.9 L Red Cell Distribution Width 14.6 H Platelet Count 162 Mean Platelet Volume 10.0 Immature Granulocytes % 1.600 H Neutrophils % 71.8 Lymphocytes % 14.6 L Monocytes % 7.8 Eosinophils % 3.7 Basophils % 0.5 Nucleated Red Blood Cells % 0.0 Immature Granulocytes # 0.060 H Neutrophils # 2.8 Lymphocytes # 0.6 L Monocytes # 0.3 Eosinophils # 0.1 Basophils # 0.0 Nucleated Red Blood Cells # 0.0 Prothrombin Time 19.2 H Prothrombin Time Ratio 1.5 INR International Normalized Ratio 1.61 Sodium Level 136 Potassium Level 3.9 Chloride Level 100 Carbon Dioxide Level 27 Anion Gap 9 Blood Urea Nitrogen 22 H Creatinine 0.88 Est Glomerular Filtrat Rate mL/min > 60 Glucose Level 140 Calcium Level 8.0 L Phosphorus Level 3.3 Magnesium Level 2.0 Medications Medications Current Medications Acetaminophen (Tylenol Tab) 650 mg Q4H PRN PO FEVER GREATER THAN 100.6 Last administered on 06/11/18 01:38; Admin Dose 650 MG; Start 05/27/18 at 11:30 Al Hydrox/Mg Hydrox/Simethicone (Mag-Al Plus) 30 ml Q4H PRN PO GASTROINTESTINAL UPSET; Start 05/27/18 at 11:30 Ondansetron HCl (Zofran Inj) 4 mg Q4H PRN IV NAUSEA AND/OR VOMITING Last administered on 06/06/18 06:05; Admin Dose 4 MG; Start 05/27/18 at 11:30 Levothyroxine Sodium (Synthroid) 50 mcg BEFORE BREAKFAST PO Last administered on 06/20/18 06:53; Admin Dose 50 MCG; Start 05/30/18 at 07:00 Mometasone Furoate (Asmanex) 1 puff DAILY INH Last administered on 06/20/18 08:34; Admin Dose 1 PUFF; Start 05/29/18 at 11:00 Atorvastatin Calcium (Lipitor) 10 mg DAILY@21 PO Last administered on 06/19/18 20:35; Admin Dose 10 MG; Start 05/29/18 at 21:00 Latanoprost (Xalatan) 1 drop HS BOTH EYES Last administered on 06/19/18 20:35; Admin Dose 1 DROP; Start 06/01/18 at 21:00 Amlodipine Besylate (Norvasc) 5 mg DAILY PO ; Start 06/03/18 at 09:00; Status Hold Pantoprazole (Protonix Tab) 40 mg DAILY@06 PO Last administered on 06/20/18 05:21; Admin Dose 40 MG; Start 06/05/18 at 06:00 Metoclopramide HCl (Reglan) 5 mg TID PRN IV Nausea; Start 06/06/18 at 11:00 Senna/Docusate Sodium (Senokot-S) 2 tab BID PO Last administered on 06/19/18 20:35; Admin Dose 2 TAB; Start 06/06/18 at 21:00 Polyethylene Glycol (Miralax) 17 gm BID PRN PO CONSTIPATION; Start 06/06/18 at 14:00 Bisacodyl (Dulcolax Supp) 10 mg DAILY PRN [place] CONSTIPATION; Start 06/06/18 at 14 :00 IV Flush (NS 10 ml) 10 ml PRN PRN IV IV PROTOCOL; Start 06/06/18 at 16:00 Nystatin (Nystatin Susp) 5 ml QID PO Last administered on 06/20/18at 08:34; Admin Dose 5 ML; Start 06/06/18 at 17:00 Metoprolol Tartrate (Lopressor) 25 mg BID PO Last administered on 06/20/18at 08:36; Admin Dose 25 MG; Start 06/13/18 at 21:00 Metoprolol Tartrate (Lopressor) 5 mg Q4H PRN IV HR>110 Hold SBP<100; Start 06/13/18 at 10:30 Morphine Sulfate (morphine) 6 mg Q2H PRN PO FOR NON CARDIAC PAIN (4-10); Start 06/13/18 at 11:30 Heparin Sodium (Porcine) (Heparin (1000 Units/ml)) 3,800 unit PER PROTOCOL PRN IV aPTT<47; Start 06/15/18 at 16:30 Heparin Sodium (Porcine) 250 ml @ 7.5 mls/hr PER PROTOCOL IV Last administered on 06/20/18at 08:44; Admin Dose 8 MLS/HR; Start 06/15/18 at 16:30 Bumetanide (Bumex) 0.5 mg BID DIURETICS PO Last administered on 06/20/18 05:21; Admin Dose 0.5 MG; Start 06/19/18 at 18:00 Warfarin Sodium (Coumadin) 10 mg DAILY@17 PO Last administered on 06/19/18at 18:31; Admin Dose 10 MG; Start 06/19/18 at 17:00 CHRIS LAZAR Jun 20, 2018 11:19
--- NOTE | 2018-06-20 14:25 | PN ---
Date/Time of Note Date/Time of Note DATE: 06/20/18 TIME: 14:23 Assessment/Plan VTE Prophylaxis Risk score (from Ns)>0 risk: 12 SCD applied (from Ns): Yes Pharmacological prophylaxis: heparin, warfarin tx Lines/Catheters IV Catheter Type (from Nrsg): PICC Line Central line still needed: Yes Urinary Cath still in place: Yes Reason Cath still needed: urinary retention Assessment/Plan Hospital Course Patient is awake alert, tachypneic with shallow respirations, however was able to work with physical therapy. Patient's continues on Coumadin and heparin which is titrated according to PTT. Hemoglobin is 7.6 we will repeat H&H. Patient is stable to telemetry transfer, patient's condition and plan of care discussed with patient patient and patient's son-in-law at the bedside. Assessment/Plan -Nose/oropharyngeal bleed on 06/11/2018, stopped after heparin was held. -Recent retroperitoneal bleed secondary to vascular injury status post stent placement. Monitor H and H. S/p eval by Dr. Kilpatrick, vascular surgery consultation. -Leukocytosis, resolved. Dr. Castellanos is following in infection disease consul tation. Patient is off antibiotics. -Status post left heart catheterization with no significant obstructive coronary artery disease by Dr. Moreno on 05/27/2018. -Anemia of acute blood loss, status post blood transfusion, continue to monitor hemoglobin and hematocrit. -Status post mitral valve replacement with mechanical valve in 1999 in [facility]. Continue Coumadin, monitor PT/INR. -HTN, continue metoprolol -Hyperlipidemia -Hypothyroidism, continue levothyroxine -History of asthma Critical care time spent is 30 minutes. Further recommendations based on clinical course. Plan of care discussed with Dr. Painter. Result Diagram: 06/20/1831006/20/18 0311 Results 24hrs Laboratory Tests Test 06/19/18 18:33 06/20/18 03:11 06/20/18 11:30 Activated Partial Thromboplast Time 59.8 H 55.7 H > 180.0 *H White Blood Count 3.8 L Red Blood Count 2.46 L Hemoglobin 7.6 L Hematocrit 23.8 L Mean Corpuscular Volume 96.7 Mean Corpuscular Hemoglobin 30.9 Mean Corpuscular Hemoglobin Concent 31.9 L Red Cell Distribution Width 14.6 H Platelet Count 162 Mean Platelet Volume 10.0 Immature Granulocytes % 1.600 H Neutrophils % 71.8 Lymphocytes % 14.6 L Monocytes % 7.8 Eosinophils % 3.7 Basophils % 0.5 Nucleated Red Blood Cells % 0.0 Immature Granulocytes # 0.060 H Neutrophils # 2.8 Lymphocytes # 0.6 L Monocytes # 0.3 Eosinophils # 0.1 Basophils # 0.0 Nucleated Red Blood Cells # 0.0 Prothrombin Time 19.2 H Prothrombin Time Ratio 1.5 INR International Normalized Ratio 1.61 Sodium Level 136 Potassium Level 3.9 Chloride Level 100 Carbon Dioxide Level 27 Anion Gap 9 Blood Urea Nitrogen 22 H Creatinine 0.88 Est Glomerular Filtrat Rate mL/min > 60 Glucose Level 140 Calcium Level 8.0 L Phosphorus Level 3.3 Magnesium Level 2.0 Exam/Review of Systems Exam Vitals Vital Signs Date Temp Pulse Resp B/P (MAP) Pulse Ox O2 O2 Flow FiO2 Time Delivery Rate 06/20/18 85 38 123/50 99 Room Air 13:00 (74) 06/20/18 98.8 12:00 06/17/18 21 21:00 Intake and Output 06/19/18 06/19/18 06/20/18 1414:59 22:59 06:59 IntakeIntake Total 465.0 ml 392.0 ml 55.0 ml OutputOutput Total 1275 ml 655 ml 335 ml BalanceBalance -810.0 ml -263.0 ml -280.0 ml Exam Constitutional: alert, oriented Respiratory: clear to auscultation Cardiovascular: regular rate and rhythm Gastrointestinal: soft, non-tender Musculoskeletal: nl extremities to inspection Extremities: normal pulses Neurological: nl mental status Results Results 24hrs Laboratory Tests Test 06/19/18 18:33 06/20/18 03:11 06/20/18 11:30 Activated Partial Thromboplast Time 59.8 H 55.7 H > 180.0 *H White Blood Count 3.8 L Red Blood Count 2.46 L Hemoglobin 7.6 L Hematocrit 23.8 L Mean Corpuscular Volume 96.7 Mean Corpuscular Hemoglobin 30.9 Mean Corpuscular Hemoglobin Concent 31.9 L Red Cell Distribution Width 14.6 H Platelet Count 162 Mean Platelet Volume 10.0 Immature Granulocytes % 1.600 H Neutrophils % 71.8 Lymphocytes % 14.6 L Monocytes % 7.8 Eosinophils % 3.7 Basophils % 0.5 Nucleated Red Blood Cells % 0.0 Immature Granulocytes # 0.060 H Neutrophils # 2.8 Lymphocytes # 0.6 L Monocytes # 0.3 Eosinophils # 0.1 Basophils # 0.0 Nucleated Red Blood Cells # 0.0 Prothrombin Time 19.2 H Prothrombin Time Ratio 1.5 INR International Normalized Ratio 1.61 Sodium Level 136 Potassium Level 3.9 Chloride Level 100 Carbon Dioxide Level 27 Anion Gap 9 Blood Urea Nitrogen 22 H Creatinine 0.88 Est Glomerular Filtrat Rate mL/min > 60 Glucose Level 140 Calcium Level 8.0 L Phosphorus Level 3.3 Magnesium Level 2.0 Medications Medication Current Medications Acetaminophen (Tylenol Tab) 650 mg Q4H PRN PO FEVER GREATER THAN 100.6 Last administered on 06/11/18 01:38; Admin Dose 650 MG; Start 05/27/18 at 11:30 Al Hydrox/Mg Hydrox/Simethicone (Mag-Al Plus) 30 ml Q4H PRN PO GASTROINTESTINAL UPSET; Start 05/27/18 at 11:30 Ondansetron HCl (Zofran Inj) 4 mg Q4H PRN IV NAUSEA AND/OR VOMITING Last administered on 06/06/18 06:05; Admin Dose 4 MG; Start 05/27/18 at 11:30 Levothyroxine Sodium (Synthroid) 50 mcg BEFORE BREAKFAST PO Last administered on 06/20/18 06:53; Admin Dose 50 MCG; Start 05/30/18 at 07:00 Mometasone Furoate (Asmanex) 1 puff DAILY INH Last administered on 06/20/18 08:34; Admin Dose 1 PUFF; Start 05/29/18 at 11:00 Atorvastatin Calcium (Lipitor) 10 mg DAILY@21 PO Last administered on 06/19/18 20:35; Admin Dose 10 MG; Start 05/29/18 at 21:00 Latanoprost (Xalatan) 1 drop HS BOTH EYES Last administered on 06/19/18 20:35; Admin Dose 1 DROP; Start 06/01/18 at 21:00 Amlodipine Besylate (Norvasc) 5 mg DAILY PO ; Start 06/03/18 at 09:00; Status Hold Pantoprazole (Protonix Tab) 40 mg DAILY@06 PO Last administered on 3/11/19at 05:21; Admin Dose 40 MG; Start 06/05/18 at 06:00 Metoclopramide HCl (Reglan) 5 mg TID PRN IV Nausea; Start 06/06/18 at 11:00 Senna/Docusate Sodium (Senokot-S) 2 tab BID PO Last administered on 06/19/18at 20:35; Admin Dose 2 TAB; Start 06/06/18 at 21:00 Polyethylene Glycol (Miralax) 17 gm BID PRN PO CONSTIPATION; Start 06/06/18 at 14:00 Bisacodyl (Dulcolax Supp) 10 mg DAILY PRN [place] CONSTIPATION; Start 06/06/18 at 14:00 IV Flush (NS 10 ml) 10 ml PRN PRN IV IV PROTOCOL; Start 06/06/18 at 16:00 Nystatin (Nystatin Susp) 5 ml QID PO Last administered on 06/20/18at 13:58; Admin Dose 5 ML; Start 06/06/18 at 17:00 Metoprolol Tartrate (Lopressor) 25 mg BID PO Last administered on 06/20/18at 08:36; Admin Dose 25 MG; Start 06/13/18 at 21:00 Metoprolol Tartrate (Lopressor) 5 mg Q4H PRN IV HR>110 Hold SBP<100; Start 06/13/18 at 10:30 Morphine Sulfate (morphine) 6 mg Q2H PRN PO FOR NON CARDIAC PAIN (4-10); Start 06/13/18 at 11:30 Heparin Sodium (Porcine) (Heparin (1000 Units/ml)) 3,800 unit PER PROTOCOL PRN IV aPTT<47; Start 06/15/18 at 16:30 Heparin Sodium (Porcine) 250 ml @ 7.5 mls/hr PER PROTOCOL IV Last administered on 06/20/18at 08:44; Admin Dose 8 MLS/HR; Start 06/15/18 at 16:30 Bumetanide (Bumex) 0.5 mg BID DIURETICS PO Last administered on 06/20/18at 05:21; Admin Dose 0.5 MG; Start 06/19/18 at 18:00 Warfarin Sodium (Coumadin) 10 mg DAILY@17 PO Last administered on 06/19/18at 18:31; Admin Dose 10 MG; Start 06/19/18 at 17:00 KRISTY MCCULLOUGH 11, 2019 14:25
[2018-06-20] MEDS: WARFARIN 10 MG TAB PO SCH (17:39)
[2018-06-20] MEDS: ATORVASTATIN 10 MG TAB PO SCH (20:48)
[2018-06-20] MEDS: LATANOPROST 0.005% 2.5 ML OPH BOTH EYES SCH (20:57)
[2018-06-21] VITALS (24 sets, daily range): BP systolic 98–147; BP diastolic 47–100; PULSE 75–110; RESP 19–46
[2018-06-21] MEDS: BUMETANIDE 0.5 MG TAB PO SCH (05:46)
[2018-06-21] MEDS: PANTOPRAZOLE (EC) 40 MG TAB PO SCH (05:46)
[2018-06-21] MEDS: LEVOTHYROXINE 50 MCG TAB PO SCH (06:36)
--- NOTE | 2018-06-21 07:56 | PN ---
DATE: 06/21/2018 SUBJECTIVE: The patient is stable, was noted to have some shortness of breath this morning. No othe r acute events noted. No hemoptysis, hematemesis or hematochezia. OBJECTIVE: VITAL SIGNS: Blood pressure is 147/68, respiration 41, pulse 97, temperature 98.4. HEENT: Head is normocephalic. NECK: Supple. HEART: Irregularly irregular. Positive mechanical click. LUNGS: Show diminished breath sounds at the base. ABDOMEN: Soft, nontender to palpation without rebound or guarding. EXTREMITIES: Negative for clubbing, cyanosis. Positive edema. DERMATOLOGIC: No rashes. MUSCULOSKELETAL: No joint effusion. NEUROLOGIC: No change in exam. MEDICATIONS: The patient's medications have been reviewed. LABORATORY DATA: Shows white count 4.0, hemoglobin 7.8, platelet count is 161. Sodium 136, potassiu m 4.0, chloride 100, BUN 21, creatinine 0.92. IMAGING STUDIES: Reviewed. ASSESSMENT AND PLAN: 1. Nonoliguric acute kidney injury with previous baseline creatinine of 0.6 mg/dL. Etiology of acut e kidney injury is secondary to acute tubular necrosis. Renal function is improved. Continue curren t treatment plans, supportive care, renally dose all medicines. 2. Volume overload. The patient noted to have increased edema in lower extremity. We will increase Bumex 1 mg IV b.i.d. We will monitor electrolytes and I's and O's closely. 3. Hypomagnesemia. Continue to monitor and replete as needed. 4. Anemia. Monitor hemoglobin and hematocrit levels. 5. Coronary artery disease. Continue medical management. 6. Mechanical heart valve. Continue anticoagulation per cardiology. 7. Sepsis secondary to urinary tract infection. Continue current treatment plan. 8. Hypothyroidism. Continue Synthroid. 9. Dyslipidemia. Continue statin therapy. 10. Hypertension. Continue current blood pressure regimen. 11. Intraabdominal hematoma. The patient is status post pigtail placement. Continue to monitor. 12. Epistaxis, resolved. Dictated By: GWYN FABIAN DO NR/NTS Conf#: [id number] DID#: [id number] CC: JULY VALENTIN MD; CHRIS LAZAR MD; JOAQUIN DE LEON MD;*EndCC*
--- NOTE | 2018-06-21 08:21 | CONS ---
Consult Date/Type/Reason Admit Date/Time May 28, 2018 at 17:52 Initial Consult Date Type of Consultation: Urology Requesting Provider: JULY VALENTIN MD Date/Time of Note DATE: 06/21/18 TIME: 08:19 Subjective NO acute events - better overall- INR going up - pending Tx to tele - no CP now. ROS: No fever, no chills, no nausea, no vomiting, no diarrhea/constipation No recent weight changes No chest pain, no PND, no orthopnea - mild SOB No dizziness, blurred vision No thirst, no heat or cold intolerance Objective Vitals Vital Signs Date Temp Pulse Resp B/P (MAP) Pulse Ox O2 O2 Flow FiO2 Time Delivery Rate 06/21/18 97 41 147/68 100 Room Air 06:00 (94) 06/21/18 98.4 04:00 06/17/18 21 21:00 Intake and Output 06/20/18 06/20/18 06/21/18 1515:00 23:00 07:00 IntakeIntake Total 643.19 ml 483.625 ml 332.0 ml OutputOutput Total 310 ml 525 ml 380 ml BalanceBalance 333.19 ml -41.375 ml -48.0 ml Exam General: WN/WD/NAD, AOx 3 HEENT: Unicetric/atraumatic/EOMI (does not follow commands) NECK: JVD elevated, no thyromegaly Lymph: no lymphadenopathy HEART: regular with no S3, II/ systolic murmur at apex, mech click LUNGS: Coarse sounds ABD: soft, NT, ND, +BS : Intact Neuro: non focal SKIN: chronic changes EXT: trace edema Results/Medications Result Diagram: 06/21/1841906/21/18419 Results 24 hrs Laboratory Tests Test 06/20/18 11:30 06/20/18 14:31 06/20/18 21:38 06/21/18 04:20 Activated > 180.0 *H 35.0 51.6 H 66.1 H Partial Thromboplast Time White Blood Count 3.7 L 4.0 L Red Blood Count 2.74 L 2.56 L Hemoglobin 8.4 L 7.8 L Hematocrit 25.4 L 24.3 L Mean Corpuscular 92.7 94.9 Volume Mean Corpuscular 30.7 30.5 Hemoglobin Mean Corpuscular 33.1 32.1 Hemoglobin Concent Red Cell 14.6 H 14.6 H Distribution Width Platelet Count 168 161 Mean Platelet Volume 9.5 10.1 Immature 1.600 H 2.000 H Granulocytes % Neutrophils % 71.5 70.8 Lymphocytes % 16.7 17.6 Monocytes % 6.7 6.4 Eosinophils % 3.2 3.0 Basophils % 0.3 0.2 Nucleated Red Blood 0.0 0.0 Cells % Immature 0.060 H 0.080 H Granulocytes # Neutrophils # 2.7 2.9 Lymphocytes # 0.6 L 0.7 L Monocytes # 0.3 0.3 Eosinophils # 0.1 0.1 Basophils # 0.0 0.0 Nucleated Red Blood 0.0 0.0 Cells # Prothrombin Time 25.5 #H Prothrombin Time 2.0 Ratio INR International 2.32 Normalized Ratio Sodium Level 136 Potassium Level 4.0 Chloride Level 100 Carbon Dioxide Level 28 Anion Gap 8 Blood Urea Nitrogen 21 H Creatinine 0.92 Est Glomerular > 60 Filtrat Rate mL/min Glucose Level 111 Calcium Level 8.3 L Phosphorus Level 3.8 Magnesium Level 1.8 Home Meds Reported Medications Albuterol Sulfate* (Ventolin HFA*) 18 Gm Hfa.aer.ad, 2 PUFF INHALATION Q4H, #1 INHALER 05/26/18 Ergocalciferol (Vitamin D2) (VITAMIN D2) 50,000 Unit Capsule, 54450 UNIT PO Q2 WEEKS, CAP 05/23/18 Warfarin Sodium* (Coumadin*) 5 Mg Tablet, 5 MG PO Q TUES,THUR,SAT, TAB 05/23/18 Warfarin Sodium* (Coumadin*) 4 Mg Tablet, 4 MG PO Q MON,WED,FRI,SUN, TAB 05/23/18 Furosemide* (Furosemide*) 20 Mg Tablet, 20 MG PO DAILY, #60 TAB TAKE Q 2 DAYS 05/23/18 Simvastatin* (Zocor*) 20 Mg Tablet, 20 MG PO QHS, #30 TAB 05/23/18 Ranitidine Hcl* (Ranitidine Hcl*) 150 Mg Tablet, 150 MG PO HS, #30 TAB 05/23/18 Acetaminophen (Mapap) 500 Mg Capsule, 500 MG PO BID PRN for PAIN, CAP 05/23/18 Levothyroxine Sodium* (Levothyroxine Sodium*) 50 Mcg Tablet, 50 MCG PO BEFORE BREAKFAST, #30 TAB 05/23/18 Spironolactone* (Aldactone*) 25 Mg Tablet, 25 MG PO DAILY, #30 TAB 05/23/18 Beclomethasone Dipropionate (Qvar Redihaler (40 MCG)) 10.6 Gm Hfa.aeroba, 10.6 GM IH DAILY, INH 05/23/18 Amlodipine Besylate* (Norvasc*) 5 Mg Tablet, 5 MG PO BID, TAB 05/23/18 Losartan-Hydrochlorothiazide (Losartan-HCTZ) 100-25 Mg Tab, 1 TAB PO DAILY, TAB 05/23/18 Medications Current Medications Acetaminophen (Tylenol Tab) 650 mg Q4H PRN PO FEVER GREATER THAN 100.6 Last administered on 06/11/18 01:38; Admin Dose 650 MG; Start 05/27/18 at 11:30 Al Hydrox/Mg Hydrox/Simethicone (Mag-Al Plus) 30 ml Q4H PRN PO GASTROINTESTINAL UPSET; Start 05/27/18 at 11:30 Ondansetron HCl (Zofran Inj) 4 mg Q4H PRN IV NAUSEA AND/OR VOMITING Last administered on 06/06/18 06:05; Admin Dose 4 MG; Start 05/27/18 at 11:30 Levothyroxine Sodium (Synthroid) 50 mcg BEFORE BREAKFAST PO Last administered on 06/21/18 06:36; Admin Dose 50 MCG; Start 05/30/18 at 07:00 Mometasone Furoate (Asmanex) 1 puff DAILY INH Last administered on 06/20/18 08:34; Admin Dose 1 PUFF; Start 05/29/18 at 11:00 Atorvastatin Calcium (Lipitor) 10 mg DAILY@21 PO Last administered on 06/20/18 20:48; Admin Dose 10 MG; Start 05/29/18 at 21:00 Latanoprost (Xalatan) 1 drop HS BOTH EYES Last administered on 06/20/18 20:57; Admin Dose 1 DROP; Start 06/01/18 at 21:00 Amlodipine Besylate (Norvasc) 5 mg DAILY PO ; Start 06/03/18 at 09:00; Status Hold Pantoprazole (Protonix Tab) 40 mg DAILY@06 PO Last administered on 3/12/19at 05:46; Admin Dose 40 MG; Start 06/05/18 at 06:00 Metoclopramide HCl (Reglan) 5 mg TID PRN IV Nausea; Start 06/06/18 at 11:00 Senna/Docusate Sodium (Senokot-S) 2 tab BID PO Last administered on 06/20/18at 20:49; Admin Dose 2 TAB; Start 06/06/18 at 21:00 Polyethylene Glycol (Miralax) 17 gm BID PRN PO CONSTIPATION; Start 06/06/18 at 14:00 Bisacodyl (Dulcolax Supp) 10 mg DAILY PRN [place] CONSTIPATION; Start 06/06/18 at 14:00 IV Flush (NS 10 ml) 10 ml PRN PRN IV IV PROTOCOL; Start 06/06/18 at 16:00 Nystatin (Nystatin Susp) 5 ml QID PO Last administered on 06/20/18at 20:48; Admin Dose 5 ML; Start 06/06/18 at 17:00 Metoprolol Tartrate (Lopressor) 25 mg BID PO Last administered on 06/20/18at 20:49; Admin Dose 25 MG; Start 06/13/18 at 21:00 Metoprolol Tartrate (Lopressor) 5 mg Q4H PRN IV HR>110 Hold SBP<100; Start 06/13/18 at 10:30 Morphine Sulfate (morphine) 6 mg Q2H PRN PO FOR NON CARDIAC PAIN (4-10); Start 06/13/18 at 11:30 Heparin Sodium (Porcine) (Heparin (1000 Units/ml)) 3,800 unit PER PROTOCOL PRN IV aPTT<47; Start 06/15/18 at 16:30 Heparin Sodium (Porcine) 250 ml @ 7.5 mls/hr PER PROTOCOL IV Last administered on 06/20/18at 08:44; Admin Dose 8 MLS/HR; Start 06/15/18 at 16:30 Warfarin Sodium (Coumadin) 10 mg DAILY@17 PO Last administered on 06/20/18at 17:39; Admin Dose 10 MG; Start 06/19/18 at 17:00 Bumetanide (Bumex) 1 mg BID DIURETICS IV ; Start 06/21/18 at 18:00 Assessment/Plan Hospital Course (Demo Recall) 1.cad s/p LHC with no sig obstructive cad - on med rx now - treated - no CP now 2.HTN - treated - well Rx - well controlled 3.RP Bleed s/p transfusions now stable and tolerating heparin/coumadin loading. Then had recurrent bled overnight now s/p covered stent to PUMPER HEAD/Ext iliac. Stable collection by abd CT 06/06 but still with pigtail catheter in place - now more bleedig - back to ICU - heparin held - restart coumadin - INR in good range now 4.HL 5.MVR-mechanical - stable by exam - soft click by exam - stable 6.anemia- s/p repair of R PUMPER HEAD/illiac. Now stabilizing 7.Hypothyroid 8. FOURNIER-negative Head CT 9. Fevers-with positive ua - now resolved. CECILIA MOCTEZUMA MD Jun 21, 2018 08:21
[2018-06-21] MEDS: MOMETASONE 0.24 GM INHALER INH SCH (08:27)
[2018-06-21] MEDS: SENNA/DOCUSATE NA (8.6MG/50MG) TAB PO SCH (08:28)
[2018-06-21] MEDS: METOPROLOL 25 MG TAB PO SCH ×2 (08:28→20:41)
[2018-06-21] MEDS: NYSTATIN SUSP 5 ML CUP PO SCH ×4 (08:28→20:40)
[2018-06-21] MEDS ORDERED: DOCUSATE SODIUM 100 MG CAP PO PRN (12:00)
--- NOTE | 2018-06-21 12:31 | PN ---
Date/Time of Note Date/Time of Note DATE: 06/21/18 TIME: 12:27 Assessment/Plan VTE Prophylaxis Risk score (from [facility])>0 risk: 13 SCD applied (from [facility]): No SCD contraindicated: patient refusal Pharmacological prophylaxis: heparin, warfarin tx Lines/Catheters IV Catheter Type (from [facility]): PICC Line Central line still needed: Yes Urinary Cath still in place: Yes Reason Cath still needed: urinary retention Assessment/Plan Hospital Course Patient gets short of breath and tired with activities, no active bleeding noted, INR is 2.32 today, patient continues on Coumadin and heparin drip. Patient has a good urine output however had some urine coming out from around the catheter since the catheter was inserted by a urologist Dr. Ashford will reconsult. Assessment/Plan -Nose/oropharyngeal bleed on 06/11/2018, stopped after heparin was held. -Recent retroperitoneal bleed secondary to vascular injury status post stent placement. Monitor H and H. S/p eval by Dr. Kilpatrick, vascular surgery consult ation. -Leukocytosis, resolved. Dr. Castellanos is following in infection disease consultation. Patient is off antibiotics. -Status post left heart catheterization with no significant obstructive coronary artery disease by Dr. Moreno on 05/27/2018. -Anemia of acute blood loss, status post blood transfusion, continue to monitor hemoglobin and hematocrit. -Status post mitral valve replacement with mechanical valve in 1999 in [facility]. Continue Coumadin, monitor PT/INR. -HTN, continue metoprolol -Hyperlipidemia -Hypothyroidism, continue levothyroxine -History of asthma Further recommendations based on clinical course. Plan of care discussed with Dr. Painter. Result Diagram: 06/21/18 0420 06/21/18 0420 Results 24hrs Laboratory Tests Test 06/20/18 14:31 06/20/18 21:38 06/21/18 04:20 White Blood Count 3.7 L 4.0 L Red Blood Count 2.74 L 2.56 L Hemoglobin 8.4 L 7.8 L Hematocrit 25.4 L 24.3 L Mean Corpuscular Volume 92.7 94.9 Mean Corpuscular Hemoglobin 30.7 30.5 Mean Corpuscular Hemoglobin Concent 33.1 32.1 Red Cell Distribution Width 14.6 H 14.6 H Platelet Count 168 161 Mean Platelet Volume 9.5 10.1 Immature Granulocytes % 1.600 H 2.000 H Neutrophils % 71.5 70.8 Lymphocytes % 16.7 17.6 Monocytes % 6.7 6.4 Eosinophils % 3.2 3.0 Basophils % 0.3 0.2 Nucleated Red Blood Cells % 0.0 0.0 Immature Granulocytes # 0.060 H 0.080 H Neutrophils # 2.7 2.9 Lymphocytes # 0.6 L 0.7 L Monocytes # 0.3 0.3 Eosinophils # 0.1 0.1 Basophils # 0.0 0.0 Nucleated Red Blood Cells # 0.0 0.0 Activated Partial Thromboplast Time 35.0 51.6 H 66.1 H Prothrombin Time 25.5 #H Prothrombin Time Ratio 2.0 INR International Normalized Ratio 2.32 Sodium Level 136 Potassium Level 4.0 Chloride Level 100 Carbon Dioxide Level 28 Anion Gap 8 Blood Urea Nitrogen 21 H Creatinine 0.92 Est Glomerular Filtrat Rate mL/min > 60 Glucose Level 111 Calcium Level 8.3 L Phosphorus Level 3.8 Magnesium Level 1.8 Exam/Review of Systems Exam Vitals Vital Signs Date Temp Pulse Resp B/P (MAP) Pulse Ox O2 O2 Flow FiO2 Time Delivery Rate 06/21/18 75 29 120/62 100 Room Air 11:00 (81) 06/21/18 98.6 08:00 06/17/18 21 21:00 Intake and Output 06/20/18 06/20/18 06/21/18 1515:00 23:00 07:00 IntakeIntake Total 643.19 ml 483.625 ml 332.0 ml OutputOutput Total 310 ml 525 ml 380 ml BalanceBalance 333.19 ml -41.375 ml -48.0 ml Exam Constitutional: alert, oriented Respiratory: clear to auscultation Cardiovascular: regular rate and rhythm Gastrointestinal: soft, non-tender Musculoskeletal: nl extremities to inspection Extremities: normal pulses Neurological: nl mental status Results Results 24hrs Laboratory Tests Test 06/20/18 14:31 06/20/18 21:38 06/21/18 04:20 White Blood Count 3.7 L 4.0 L Red Blood Count 2.74 L 2.56 L Hemoglobin 8.4 L 7.8 L Hematocrit 25.4 L 24.3 L Mean Corpuscular Volume 92.7 94.9 Mean Corpuscular Hemoglobin 30.7 30.5 Mean Corpuscular Hemoglobin Concent 33.1 32.1 Red Cell Distribution Width 14.6 H 14.6 H Platelet Count 168 161 Mean Platelet Volume 9.5 10.1 Immature Granulocytes % 1.600 H 2.000 H Neutrophils % 71.5 70.8 Lymphocytes % 16.7 17.6 Monocytes % 6.7 6.4 Eosinophils % 3.2 3.0 Basophils % 0.3 0.2 Nucleated Red Blood Cells % 0.0 0.0 Immature Granulocytes # 0.060 H 0.080 H Neutrophils # 2.7 2.9 Lymphocytes # 0.6 L 0.7 L Monocytes # 0.3 0.3 Eosinophils # 0.1 0.1 Basophils # 0.0 0.0 Nucleated Red Blood Cells # 0.0 0.0 Activated Partial Thromboplast Time 35.0 51.6 H 66.1 H Prothrombin Time 25.5 #H Prothrombin Time Ratio 2.0 INR International Normalized Ratio 2.32 Sodium Level 136 Potassium Level 4.0 Chloride Level 100 Carbon Dioxide Level 28 Anion Gap 8 Blood Urea Nitrogen 21 H Creatinine 0.92 Est Glomerular Filtrat Rate mL/min > 60 Glucose Level 111 Calcium Level 8.3 L Phosphorus Level 3.8 Magnesium Level 1.8 Medications Medication Current Medications Acetaminophen (Tylenol Tab) 650 mg Q4H PRN PO FEVER GREATER THAN 100.6 Last administered on 06/11/18at 01:38; Admin Dose 650 MG; Start 05/27/18 at 11:30 Al Hydrox/Mg Hydrox/Simethicone (Mag-Al Plus) 30 ml Q4H PRN PO GASTROINTESTINAL UPSET; Start 05/27/18 at 11:30 Ondansetron HCl (Zofran Inj) 4 mg Q4H PRN IV NAUSEA AND/OR VOMITING Last administered on 06/06/18at 06:05; Admin Dose 4 MG; Start 05/27/18 at 11:30 Levothyroxine Sodium (Synthroid) 50 mcg BEFORE BREAKFAST PO Last administered on 06/21/18at 06:36; Admin Dose 50 MCG; Start 05/30/18 at 07:00 Mometasone Furoate (Asmanex) 1 puff DAILY INH Last administered on 06/21/18 08:27; Admin Dose 1 PUFF; Start 05/29/18 at 11:00 Atorvastatin Calcium (Lipitor) 10 mg DAILY@21 PO Last administered on 06/20/18at 20:48; Admin Dose 10 MG; Start 05/29/18 at 21:00 Latanoprost (Xalatan) 1 drop HS BOTH EYES Last administered on 06/20/18at 20:57; Admin Dose 1 DROP; Start 06/01/18 at 21:00 Amlodipine Besylate (Norvasc) 5 mg DAILY PO ; Start 06/03/18 at 09:00; Status Hold Pantoprazole (Protonix Tab) 40 mg DAILY@06 PO Last administered on 06/21/18at 05:46; Admin Dose 40 MG; Start 06/05/18 at 06:00 Metoclopramide HCl (Reglan) 5 mg TID PRN IV Nausea; Start 06/06/18 at 11:00 Polyethylene Glycol (Miralax) 17 gm BID PRN PO CONSTIPATION; Start 06/06/18 at 14:00 Bisacodyl (Dulcolax Supp) 10 mg DAILY PRN [place] CONSTIPATION; Start 06/06/18 at 14:00 IV Flush (NS 10 ml) 10 ml PRN PRN IV IV PROTOCOL; Start 06/06/18 at 16:00 Nystatin (Nystatin Susp) 5 ml QID PO Last administered on 06/21/18at 12:23; Admin Dose 5 ML; Start 06/06/18 at 17:00 Metoprolol Tartrate (Lopressor) 25 mg BID PO Last administered on 06/21/18at 08:28; Admin Dose 25 MG; Start 06/13/18 at 21:00 Metoprolol Tartrate (Lopressor) 5 mg Q4H PRN IV HR>110 Hold SBP<100; Start 06/13/18 at 10:30 Morphine Sulfate (morphine) 6 mg Q2H PRN PO FOR NON CARDIAC PAIN (4-10); Start 06/13/18 at 11:30 Heparin Sodium (Porcine) (Heparin (1000 Units/ml)) 3,800 unit PER PROTOCOL PRN IV aPTT<47; Start 06/15/18 at 16:30 Heparin Sodium (Porcine) 250 ml @ 7.5 mls/hr PER PROTOCOL IV Last administered on 06/20/18at 08:44; Admin Dose 8 MLS/HR; Start 06/15/18 at 16:30 Warfarin Sodium (Coumadin) 10 mg DAILY@17 PO Last administered on 06/20/18at 17:39; Admin Dose 10 MG; Start 06/19/18 at 17:00 Bumetanide (Bumex) 1 mg BID DIURETICS IV ; Start 06/21/18 at 18:00 Docusate Sodium (Colace) 100 mg DAILY PRN PO CONSTIPATION; Start 06/21/18 at 12:00 KRISTY MCCULLOUGH Jun 21, 2018 12:31
--- NOTE | 2018-06-21 13:05 | CONS ---
Assessment/Plan Assessment/Plan Hospital Course (Demo Recall) - severe sepsis due to UTI, improved - SIRS due to acute blood loss, improved - nasopharyngeal bleed on 06/11/2018, resolved - s/p UTI due to E. coli, resolved. 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, s/p covered stent placement 6 x 100 mm right common femoral artery and right external iliac artery, abdominal aortogram, catheter introduction to the abdominal aorta, JOSÉ MIGUEL guidance into the central art monet 06/02/2018 - s/p retroperitoneal bleed - s/p acute anemia requiring PRBC - s/p CT guided placement of drainage catheter into pelvic hematoma 06/05/2018-->removed on 06/09/2018 - FORREST, improved - s/p L heart catheterization on 05/27/2018 showing no significant obstructive CAD - CAD s/p CABG in in 1982 - H/o MVR with mechanical valve, in 1999 - cholelithiasis without e/o acute cholecystitis - Hypertension - Hyperlipidemia - Hypothyroidism - asthma - s/p FOURNIER, resolved. CT head shows no acute findings - venous JOSÉ MIGUEL of b/l LE was negative for DVT Recommendations: - Continue to monitor Pt off systemic antibiotic. Consultation Date/Type/Reason Admit Date/Time May 28, 2018 at 17:52 Initial Consult Date 06/03/18 Type of Consult ID Requesting Provider: JULY VALENTIN MD Date/Time of Note DATE: 06/21/18 TIME: 13:05 24 HR Interval Summary Free Text/Dictation d/w nursing and d/w family Exam/Review of Systems Exam Vitals Vital Signs Date Temp Pulse Resp B/P (MAP) Pulse Ox O2 O2 Flow FiO2 Time Delivery Rate 06/21/18 80 12:00 06/21/18 29 120/62 100 Room Air 11:00 (81) 06/21/18 98.6 08:00 06/17/18 21 21:00 Intake and Output 06/20/18 06/20/18 06/21/18 1515:00 23:00 07:00 IntakeIntake Total 643.19 ml 483.625 ml 332.0 ml OutputOutput Total 310 ml 525 ml 380 ml BalanceBalance 333.19 ml -41.375 ml -48.0 ml Constitutional: alert, oriented, well developed Psych: no complaints, nl mood/affect Head: normocephalic, atraumatic Eyes: nl conjunctiva, EOMI, nl lids, nl sclera, PERRL Neck: supple, non-tender Respiratory: clear to auscultation, normal air movement Gastrointestinal: soft, nl liver, spleen, non-tender Results Result Diagram: 06/21/18 0420 06/21/18 0420 Results 24hrs Laboratory Tests Test 06/20/18 14:31 06/20/18 21:38 06/21/18 04:20 White Blood Count 3.7 L 4.0 L Red Blood Count 2.74 L 2.56 L Hemoglobin 8.4 L 7.8 L Hematocrit 25.4 L 24.3 L Mean Corpuscular Volume 92.7 94.9 Mean Corpuscular Hemoglobin 30.7 30.5 Mean Corpuscular Hemoglobin Concent 33.1 32.1 Red Cell Distribution Width 14.6 H 14.6 H Platelet Count 168 161 Mean Platelet Volume 9.5 10.1 Immature Granulocytes % 1.600 H 2.000 H Neutrophils % 71.5 70.8 Lymphocytes % 16.7 17.6 Monocytes % 6.7 6.4 Eosinophils % 3.2 3.0 Basophils % 0.3 0.2 Nucleated Red Blood Cells % 0.0 0.0 Immature Granulocytes # 0.060 H 0.080 H Neutrophils # 2.7 2.9 Lymphocytes # 0.6 L 0.7 L Monocytes # 0.3 0.3 Eosinophils # 0.1 0.1 Basophils # 0.0 0.0 Nucleated Red Blood Cells # 0.0 0.0 Activated Partial Thromboplast Time 35.0 51.6 H 66.1 H Prothrombin Time 25.5 #H Prothrombin Time Ratio 2.0 INR International Normalized Ratio 2.32 Sodium Level 136 Potassium Level 4.0 Chloride Level 100 Carbon Dioxide Level 28 Anion Gap 8 Blood Urea Nitrogen 21 H Creatinine 0.92 Est Glomerular Filtrat Rate mL/min > 60 Glucose Level 111 Calcium Level 8.3 L Phosphorus Level 3.8 Magnesium Level 1.8 Medications Medication Current Medications Acetaminophen (Tylenol Tab) 650 mg Q4H PRN PO FEVER GREATER THAN 100.6 Last administered on 06/11/18 01:38; Admin Dose 650 MG; Start 05/27/18 at 11:30 Al Hydrox/Mg Hydrox/Simethicone (Mag-Al Plus) 30 ml Q4H PRN PO GASTROINTESTINAL UPSET; Start 05/27/18 at 11:30 Ondansetron HCl (Zofran Inj) 4 mg Q4H PRN IV NAUSEA AND/OR VOMITING Last administered on 06/06/18 06:05; Admin Dose 4 MG; Start 05/27/18 at 11:30 Levothyroxine Sodium (Synthroid) 50 mcg BEFORE BREAKFAST PO Last administered on 06/21/18 06:36; Admin Dose 50 MCG; Start 05/30/18 at 07:00 Mometasone Furoate (Asmanex) 1 puff DAILY INH Last administered on 06/21/18 08:27; Admin Dose 1 PUFF; Start 05/29/18 at 11:00 Atorvastatin Calcium (Lipitor) 10 mg DAILY@21 PO Last administered on 06/20/18 20:48; Admin Dose 10 MG; Start 05/29/18 at 21:00 Latanoprost (Xalatan) 1 drop HS BOTH EYES Last administered on 06/20/18 20:57; Admin Dose 1 DROP; Start 06/01/18 at 21:00 Amlodipine Besylate (Norvasc) 5 mg DAILY PO ; Start 06/03/18 at 09:00; Status Hold Pantoprazole (Protonix Tab) 40 mg DAILY@06 PO Last administered on 06/21/18 05:46; Admin Dose 40 MG; Start 06/05/18 at 06:00 Metoclopramide HCl (Reglan) 5 mg TID PRN IV Nausea; Start 06/06/18 at 11:00 Polyethylene Glycol (Miralax) 17 gm BID PRN PO CONSTIPATION; Start 06/06/18 at 14:00 Bisacodyl (Dulcolax Supp) [address] CONSTIPATION; Start 06/06/18 at 1 4:00 IV Flush (NS 10 ml) 10 ml PRN PRN IV IV PROTOCOL; Start 06/06/18 at 16:00 Nystatin (Nystatin Susp) 5 ml QID PO Last administered on 06/21/18 12:23; Admin Dose 5 ML; Start 06/06/18 at 17:00 Metoprolol Tartrate (Lopressor) 25 mg BID PO Last administered on 06/21/18at 08:28; Admin Dose 25 MG; Start 06/13/18 at 21:00 Metoprolol Tartrate (Lopressor) 5 mg Q4H PRN IV HR>110 Hold SBP<100; Start at 10:30 Morphine Sulfate (morphine) 6 mg Q2H PRN PO FOR NON CARDIAC PAIN (4-10); Start 06/13/18 at 11:30 Heparin Sodium (Porcine) (Heparin (1000 Units/ml)) 3,800 unit PER PROTOCOL PRN IV aPTT<47; Start 06/15/18 at 16:30 Heparin Sodium (Porcine) 250 ml @ 7.5 mls/hr PER PROTOCOL IV Last administered on 06/20/18at 08:44; Admin Dose 8 MLS/HR; Start 06/15/18 at 16:30 Warfarin Sodium (Coumadin) 10 mg DAILY@17 PO Last administered on 06/20/18at 17:39; Admin Dose 10 MG; Start 06/19/18 at 17:00 Bumetanide (Bumex) 1 mg BID DIURETICS IV ; Start 06/21/18 at 18:00 Docusate Sodium (Colace) 100 mg DAILY PRN PO CONSTIPATION; Start 06/21/18 at 12:00 MARSHA IYER MD Jun 21, 2018 13:05
[2018-06-21] MEDS ORDERED: PENDING SANTYL ORDER FOR WOUND CARE XX PRN (16:00)
[2018-06-21] MEDS: WARFARIN 5 MG TAB PO SCH (17:04)
[2018-06-21] MEDS: BUMETANIDE 1 MG INJ IV SCH (17:04)
--- NOTE | 2018-06-21 20:22 | CONS ---
Consult Date/Type/Reason Admit Date/Time May 28, 2018 at 17:52 Initial Consult Date 06/03/18 Type of Consultation: Urology Reason for Consultation Leakage around the Mensah catheter Requesting Provider: JULY VALENTIN MD Date/Time of Note DATE: 06/21/18 TIME: 20:20 Subjective Patient states that since the Mensah catheter was removed she has been voiding and she denies any pain with urination. Objective Vitals Vital Signs Date Temp Pulse Resp B/P (MAP) Pulse Ox O2 O2 Flow FiO2 Time Delivery Rate 06/21/18 98.9 97 25 109/47 100 Room Air 20:00 (67) 06/17/18 21 21:00 Intake and Output 06/20/18 06/20/18 06/21/18 1515:00 23:00 07:00 IntakeIntake Total 643.19 ml 483.625 ml 332.0 ml OutputOutput Total 310 ml 525 ml 380 ml BalanceBalance 333.19 ml -41.375 ml -48.0 ml Exam As she was urinating around the Mensah catheter,the Mensah catheter was removed and she has been voiding since and the urine remained clear Results/Medications Result Diagram: 06/21/18 1318 06/21/18 0420 Results 24 hrs Laboratory Tests Test 06/20/18 21:38 06/21/18 04:20 06/21/18 13:18 Activated Partial Thromboplast Time 51.6 H 66.1 H 68.3 H White Blood Count 4.0 L Red Blood Count 2.56 L Hemoglobin 7.8 L 8.5 L Hematocrit 24.3 L 25.9 L Mean Corpuscular Volume 94.9 Mean Corpuscular Hemoglobin 30.5 Mean Corpuscular Hemoglobin Concent 32.1 Red Cell Distribution Width 14.6 H Platelet Count 161 Mean Platelet Volume 10.1 Immature Granulocytes % 2.000 H Neutrophils % 70.8 Lymphocytes % 17.6 Monocytes % 6.4 Eosinophils % 3.0 Basophils % 0.2 Nucleated Red Blood Cells % 0.0 Immature Granulocytes # 0.080 H Neutrophils # 2.9 Lymphocytes # 0.7 L Monocytes # 0.3 Eosinophils # 0.1 Basophils # 0.0 Nucleated Red Blood Cells # 0.0 Prothrombin Time 25.5 #H 24.4 H Prothrombin Time Ratio 2.0 1.9 INR International Normalized Ratio 2.32 2.19 Sodium Level 136 Potassium Level 4.0 Chloride Level 100 Carbon Dioxide Level 28 Anion Gap 8 Blood Urea Nitrogen 21 H Creatinine 0.92 Est Glomerular Filtrat Rate mL/min > 60 Glucose Level 111 Calcium Level 8.3 L Phosphorus Level 3.8 Magnesium Level 1.8 Home Meds Reported Medications Albuterol Sulfate* (Ventolin HFA*) 18 Gm Hfa.aer.ad, 2 PUFF INHALATION Q4H, #1 INHALER 05/26/18 Ergocalciferol (Vitamin D2) (VITAMIN D2) 50,000 Unit Capsule, 17504 UNIT PO [id number], CAP 05/23/18 Warfarin Sodium* (Coumadin*) 5 Mg Tablet, 5 MG PO Q TUES,THUR,SAT, TAB 05/23/18 Warfarin Sodium* (Coumadin*) 4 Mg Tablet, 4 MG PO Q MON,WED,FRI,SUN, TAB 05/23/18 Furosemide* (Furosemide*) 20 Mg Tablet, 20 MG PO DAILY, #60 TAB TAKE Q 2 DAYS 05/23/18 Simvastatin* (Zocor*) 20 Mg Tablet, 20 MG PO QHS, #30 TAB 05/23/18 Ranitidine Hcl* (Ranitidine Hcl*) 150 Mg Tablet, 150 MG PO HS, #30 TAB 05/23/18 Acetaminophen (Mapap) 500 Mg Capsule, 500 MG PO BID PRN for PAIN, CAP 05/23/18 Levothyroxine Sodium* (Levothyroxine Sodium*) 50 Mcg Tablet, 50 MCG PO BEFORE BREAKFAST, #30 TAB 05/23/18 Spironolactone* (Aldactone*) 25 Mg Tablet, 25 MG PO DAILY, #30 TAB 05/23/18 Beclomethasone Dipropionate (Qvar Redihaler (40 MCG)) 10.6 Gm Hfa.aeroba, 10.6 GM IH DAILY, INH 05/23/18 Amlodipine Besylate* (Norvasc*) 5 Mg Tablet, 5 MG PO BID, TAB 05/23/18 Losartan-Hydrochlorothiazide (Losartan-HCTZ) 100-25 Mg Tab, 1 TAB PO DAILY, TAB 05/23/18 Medications Current Medications Acetaminophen (Tylenol Tab) 650 mg Q4H PRN PO FEVER GREATER THAN 100.6 Last administered on 06/11/18at 01:38; Admin Dose 650 MG; Start 05/27/18 at 11:30 Al Hydrox/Mg Hydrox/Simethicone (Mag-Al Plus) 30 ml Q4H PRN PO GASTROINTESTINAL UPSET; Start 05/27/18 at 11:30 Ondansetron HCl (Zofran Inj) 4 mg Q4H PRN IV NAUSEA AND/OR VOMITING Last administered on 06/06/18 06:05; Admin Dose 4 MG; Start 05/27/18 at 11:30 Levothyroxine Sodium (Synthroid) 50 mcg BEFORE BREAKFAST PO Last administered on 06/21/18 06:36; Admin Dose 50 MCG; Start 05/30/18 at 07:00 Mometasone Furoate (Asmanex) 1 puff DAILY INH Last administered on 06/21/18 08:27; Admin Dose 1 PUFF; Start 05/29/18 at 11:00 Atorvastatin Calcium (Lipitor) 10 mg DAILY@21 PO Last administered on 06/20/18 20:48; Admin Dose 10 MG; Start 05/29/18 at 21:00 Latanoprost (Xalatan) 1 drop HS BOTH EYES Last administered on 06/20/18 20:57; Admin Dose 1 DROP; Start 06/01/18 at 21:00 Amlodipine Besylate (Norvasc) 5 mg DAILY PO ; Start 06/03/18 at 09:00; Status Hold Pantoprazole (Protonix Tab) 40 mg DAILY@06 PO Last administered on 06/21/18 05:46; Admin Dose 40 MG; Start 06/05/18 at 06:00 Metoclopramide HCl (Reglan) 5 mg TID PRN IV Nausea; Start 06/06/18 at 11:00 Polyethylene Glycol (Miralax) 17 gm BID PRN PO CONSTIPATION; Start 06/06/18 at 14:00 Bisacodyl (Dulcolax Supp) 10 mg DAILY PRN [place] CONSTIPATION; Start 06/06/18 at 14:00 IV Flush (NS 10 ml) 10 ml PRN PRN IV IV PROTOCOL; Start 06/06/18 at 16:00 Nystatin (Nystatin Susp) 5 ml QID PO Last administered on 06/21/18at 17:04; Admin Dose 5 ML; Start 06/06/18 at 17:00 Metoprolol Tartrate (Lopressor) 25 mg BID PO Last administered on 06/21/18at 08:28; Admin Dose 25 MG; Start 06/13/18 at 21:00 Metoprolol Tartrate (Lopressor) 5 mg Q4H PRN IV HR>110 Hold SBP<100; Start 06/13/18 at 10:30 Morphine Sulfate (morphine) 6 mg Q2H PRN PO FOR NON CARDIAC PAIN (4-10); Start 06/13/18 at 11:30 Bumetanide (Bumex) 1 mg BID DIURETICS IV Last administered on 06/21/18at 17:04; Admin Dose 1 MG; Start 06/21/18 at 18:00 Docusate Sodium (Colace) 100 mg DAILY PRN PO CONSTIPATION; Start 06/21/18 at 12:00 Warfarin Sodium (Coumadin) 5 mg DAILY@17 PO Last administered on 06/21/18at 17:04; Admin Dose 5 MG; Start 06/21/18 at 17:00 Miscellaneous Information (Pending [facility] Order For Wound Care) This patient gomes... PRN PRN XX WOUND CARE; Start 06/21/18 at 16:00 Assessment/Plan Hospital Course (Demo Recall) 62-year-old female underwent coronary angiogram. 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 I did insert the catheter for her and she was anuric. Since then she has improved and has been making urine and the urine is clear. She has had leakage around the Mensah catheter on and off. So today I told the nurse to remove the Mensah catheter and the patient has been voiding after that and she did urinate multiple times and the urine remained clear. JOAQUIN DE LEON MD Jun 21, 2018 20:22
[2018-06-21] MEDS: LATANOPROST 0.005% 2.5 ML OPH BOTH EYES SCH (20:40)
[2018-06-21] MEDS: ATORVASTATIN 10 MG TAB PO SCH (20:40)
[2018-06-22] VITALS (25 sets, daily range): BP systolic 106–145; BP diastolic 53–87; PULSE 76–120; RESP 21–40
[2018-06-22] MEDS: LEVOTHYROXINE 50 MCG TAB PO SCH (05:56)
[2018-06-22] MEDS: PANTOPRAZOLE (EC) 40 MG TAB PO SCH (05:56)
[2018-06-22] MEDS: BUMETANIDE 1 MG INJ IV SCH (05:56)
[2018-06-22] MEDS ORDERED: POTASSIUM CHLORIDE (SR) 20 MEQ TAB PO STA (07:46)
[2018-06-22] MEDS ORDERED: MAGNESIUM SULFATE 2 GM/50 ML 50 ML IVPB ONE (08:00)
--- NOTE | 2018-06-22 08:03 | PN ---
DATE: 06/22/2018 SUBJECTIVE: The patient is stable, no rash. No fevers, chills, nausea, vomiting. OBJECTIVE: VITAL SIGNS: Blood pressure is 125/84, respirations 32, pulse 102, temperature 98.9. I's and O's we re reviewed. The patient's Mensah catheter was removed. HEENT: Head is normocephalic. NECK: Supple. HEART: Regular rate. LUNGS: Show diminished breath sounds at the base. ABDOMEN: Soft, nontender to palpation without rebound or guarding. EXTREMITIES: Negative for clubbing, cyanosis, +1 edema. DERMATOLOGIC: No rashes. MUSCULOSKELETAL: No joint effusion. NEUROLOGIC: No change in exam. MEDICATIONS: Reviewed. LABORATORY DATA: Shows sodium 137, potassium 3.5, chloride 99, BUN 23, creatinine 0.96, magnesium 1. 5. White count 4.1, hemoglobin 7.6, platelet count is 159. ASSESSMENT AND PLAN: 1. Nonoliguric acute kidney injury with previously baseline creatinine of 0.6 mg/dL. Etiology of ac franco kidney injury is secondary to acute tubular necrosis. Renal function has improved. Continue cur rent treatment plan, supportive care, renally dose all meds. 2. Volume overload. The patient is improving after intensifying diuretic therapy. We will deescala te Lasix to 1 mg p.o. b.i.d. Will continue to monitor electrolytes, I's and O's closely. 3. Hypomagnesemia. Will replete with magnesium sulfate. 4. Anemia. Monitor hemoglobin and hematocrit levels. 5. Coronary artery disease. Continue medical management. 6. Mechanical heart valve. Continue anticoagulation per cardiology. 7. Sepsis secondary to urinary tract infection. The patient is completing antibiotic course. 8. Hypothyroidism. Continue Synthroid. 9. Dyslipidemia. Continue statin therapy. 10. Hypertension. Continue current blood pressure regimen. 11. Intraabdominal hematoma. The patient is clinically improving, status post pigtail placement. 12. Epistaxis, resolved. Dictated By: GWYN HEALY/NTS Conf#: [id number] DID#: [id number] CC: CHRIS LAZAR MD;*EndCC*
[2018-06-22] MEDS: MOMETASONE 0.24 GM INHALER INH SCH (08:39)
[2018-06-22] MEDS: NYSTATIN SUSP 5 ML CUP PO SCH ×4 (08:40→20:39)
[2018-06-22] MEDS: METOPROLOL 25 MG TAB PO SCH ×2 (08:40→20:40)
--- NOTE | 2018-06-22 10:42 | CONS ---
Assessment/Plan Assessment/Plan Hospital Course (Demo Recall) IMP: 1.cad s/p LHC with no sig obstructive cad 2.HTN 3.RP Bleed s/p transfusions now stable and tolerating heparin/coumadin loading. Then had recurrent bled overnight now s/p covered stent to [employer]/Ext iliac. Stable collection by abd CT 06/06 but still with pigtail catheter in place 4.HL 5.MVR-mechanical 6.anemia- s/p repair of R [employer]/illiac. Had hemoptysis with subsequent drop in Hgb again and holding of heparin. Had some mild blood tinged sputum 7.Hypothyroid 8. GOMES-negative Head CT 9. Fevers-with positive ua 10. UTI 11.ARF-? Contrast induced/compression from hematoma- now improving with in creased urine output and slowly decreasing iuss master analyst 12. Coagulopathy-now therapeutic 14. LE weakness-? compression from hematoma and exacerbated by femoral compression after cath-now resolved 15. arterial insuff- LLE- s/p [employer] L[employer] M[employer]INE O[employer]ATOR/thrombolysis 06/04 successfully with palpable pulses/B DP/PT and remain that way 16. PAF/AFL-rate controlled 17. Hematuria-resolved at this time 18. Epistaxis-improved Recc: -In ICU ok for tele -Now on BB with well controlled Hr's -Continue statin -s/p course of abx's -ongoing ID f/u -Ongoing surgical f/u -F/U iuss master analyst/K closely with creatnine now normalized -Continue coumadin and follow INR closely which is now therapeutic -Follow HGb clsoelyand repeat in afternoon to reasess -PT/ambulation -Continue PO bumex and follow volume status closely Consultation Date/Type/Reason Admit Date/Time May 28, 2018 at 17:52 Initial Consult Date 05/28/18 Type of Consult Cardiology Reason for Consultation MVR Requesting Provider: JULY VALENTIN MD Date/Time of Note DATE: 06/22/18 TIME: 10:38 Exam/Review of Systems Vital Signs Vitals Vital Signs Date Temp Pulse Resp B/P (MAP) Pulse Ox O2 O2 Flow FiO2 Time Delivery Rate 06/22/18 88 35 120/59 98 Room Air 10:00 (79) 06/22/18 98.4 08:00 Intake and Output 06/21/18 06/21/18 06/22/18 1515:00 23:00 07:00 IntakeIntake Total 768.2 ml 240 ml 120 ml OutputOutput Total 260 ml 260 ml 700 ml BalanceBalance 508.2 ml -20 ml -580 ml Exam Exam Review of Systems: CONSTITUTIONAL: No fevers, chills. PULMONARY: No sob CARDIOVASCULAR: No chest pain/palpitations GASTROINTESTINAL: No nausea/vomiting. GENITOURINARY: No hematuria/dysuria. MUSCULOSKELETAL: No myagias/arthalgias. PSYCHIATRIC: The patient denies depression. NEUROLOGIC: No weakness Constitutional: alert, oriented Psych: no complaints Head: normocephalic ENMT: mucosa pink and moist Neck: supple, jvd (9 cm water) Respiratory: diminished breath sounds (at bases/B) Cardiovascular: regular rate and rhythm Gastrointestinal: soft, non-tender Musculoskeletal: muscle tone (normal) Extremities: edema (none) Neurological: other (No focal deficits) Labs Result Diagram: 06/22/18 0449 06/22/18 0449 Results 24hrs Laboratory Tests Test 06/21/18 13:18 06/22/18 04:49 Hemoglobin 8.5 L 7.6 L Hematocrit 25.9 L 23.5 L Prothrombin Time 24.4 H 26.5 H Prothrombin Time Ratio 1.9 2.1 INR International Normalized Ratio 2.19 2.43 Activated Partial Thromboplast Time 68.3 H White Blood Count 4.1 L Red Blood Count 2.48 L Mean Corpuscular Volume 94.8 Mean Corpuscular Hemoglobin 30.6 Mean Corpuscular Hemoglobin Concent 32.3 Red Cell Distribution Width 14.7 H Platelet Count 159 Mean Platelet Volume 10.1 Immature Granulocytes % 1.700 H Neutrophils % 73.2 Lymphocytes % 16.1 Monocytes % 6.1 Eosinophils % 2.4 Basophils % 0.5 Nucleated Red Blood Cells % 0.0 Immature Granulocytes # 0.070 H Neutrophils # 3.0 Lymphocytes # 0.7 L Monocytes # 0.3 Eosinophils # 0.1 Basophils # 0.0 Nucleated Red Blood Cells # 0.0 Sodium Level 137 Potassium Level 3.5 Chloride Level 99 Carbon Dioxide Level 29 Anion Gap 9 Blood Urea Nitrogen 23 H Creatinine 0.96 Est Glomerular Filtrat Rate mL/min 59 L Glucose Level 153 Calcium Level 8.4 Phosphorus Level 3.5 Magnesium Level 1.5 L Medications Medications Current Medications Acetaminophen (Tylenol Tab) 650 mg Q4H PRN PO FEVER GREATER THAN 100.6 Last administered on 06/11/18 01:38; Admin Dose 650 MG; Start 05/27/18 at 11:30 Al Hydrox/Mg Hydrox/Simethicone (Mag-Al Plus) 30 ml Q4H PRN PO GASTROINTESTINAL UPSET; Start 05/27/18 at 11:30 Ondansetron HCl (Zofran Inj) 4 mg Q4H PRN IV NAUSEA AND/OR VOMITING Last administered on 06/06/18 06:05; Admin Dose 4 MG; Start 05/27/18 at 11:30 Levothyroxine Sodium (Synthroid) 50 mcg BEFORE BREAKFAST PO Last administered on 06/22/18 05:56; Admin Dose 50 MCG; Start 05/30/18 at 07:00 Mometasone Furoate (Asmanex) 1 puff DAILY INH Last administered on 06/22/18 08:39; Admin Dose 1 PUFF; Start 05/29/18 at 11:00 Atorvastatin Calcium (Lipitor) 10 mg DAILY@21 PO Last administered on 06/21/18 20:40; Admin Dose 10 MG; Start 05/29/18 at 21:00 Latanoprost (Xalatan) 1 drop HS BOTH EYES Last administered on 06/21/18 20:40; Admin Dose 1 DROP; Start 06/01/18 at 21:00 Amlodipine Besylate (Norvasc) 5 mg DAILY PO ; Start 06/03/18 at 09:00; Status Hold Pantoprazole (Protonix Tab) 40 mg DAILY@06 PO Last administered on 06/22/18 05:56; Admin Dose 40 MG; Start 06/05/18 at 06:00 Metoclopramide HCl (Reglan) 5 mg TID PRN IV Nausea; Start 06/06/18 at 11:00 Polyethylene Glycol (Miralax) 17 gm BID PRN PO CONSTIPATION; Start 06/06/18 at 14:00 Bisacodyl (Dulcolax Supp) 10 mg DAILY PRN [place] CONSTIPATION; Start 06/06/18 at 14:00 IV Flush (NS 10 ml) 10 ml PRN PRN IV IV PROTOCOL; Start 06/06/18 at 16:00 Nystatin (Nystatin Susp) 5 ml QID PO Last administered on 3/13/19at 08:40; Admin Dose 5 ML; Start 06/06/18 at 17:00 Metoprolol Tartrate (Lopressor) 25 mg BID PO Last administered on 06/22/18at 08:40; Admin Dose 25 MG; Start 06/13/18 at 21:00 Metoprolol Tartrate (Lopressor) 5 mg Q4H PRN IV HR>110 Hold SBP<100; Start 06/13/18 at 10:30 Morphine Sulfate (morphine) 6 mg Q2H PRN PO FOR NON CARDIAC PAIN (4-10); Start 06/13/18 at 11:30 Docusate Sodium (Colace) 100 mg DAILY PRN PO CONSTIPATION; Start 06/21/18 at 12:00 Warfarin Sodium (Coumadin) 5 mg DAILY@17 PO Last administered on 06/21/18at 17:04; Admin Dose 5 MG; Start 06/21/18 at 17:00 Miscellaneous Information (Pending [facility] Order For Wound Care) This patient gomes... PRN PRN XX WOUND CARE; Start 06/21/18 at 16:00 Bumetanide (Bumex) 1 mg BID DIURETICS PO ; Start 06/22/18 at 18:00 CHRIS LAZAR Jun 22, 2018 10:42
[2018-06-22] MEDS ORDERED: DIGOXIN 500 MCG INJ IV ONE ×2 (11:00)
--- NOTE | 2018-06-22 15:43 | PN ---
Date/Time of Note Date/Time of Note DATE: 06/22/18 TIME: 15:41 Assessment/Plan VTE Prophylaxis Risk score (from Ns)>0 risk: 11 [place] [facility] [place] contraindicated: patient refusal Pharmacological prophylaxis: warfarin tx Lines/Catheters IV Catheter Type (from [facility]): PICC Line Central line still needed: Yes Urinary Cath still in place: No Assessment/Plan Hospital Course Patient continues to have dyspnea on exertion and generalized weakness however was able to work with PT was able to sit in a chair for 40 minutes, INR is 2.43 continue Coumadin patient is off heparin, continue telemetry monitoring. Assessment/Plan -Nose/oropharyngeal bleed on 06/11/2018, stopped after heparin was held. -Recent retroperitoneal bleed secondary to vascular injury status post stent placement. Monitor H and H. S/p eval by Dr. Kilpatrick, vascular surgery consultation. -Leukocytosis, resolved. Dr. Castellanos is following in infection disease consultation. Patient is off antibiotics. -Status post left heart catheterization with no significant obstructive coronary artery disease by Dr. Moreno on 05/27/2018. -Anemia of acute blood loss, status post blood transfusion, continue to monitor hemoglobin and hematocrit. -Status post mitral valve replacement with mechanical valve in 1999 in [facility]. Continue Coumadin, monitor PT/INR. -HTN, continue metoprolol -Hyperlipidemia -Hypothyroidism, continue levothyroxine -History of asthma Further recommendations based on clinical course. Plan of care discussed with Dr. Painter. Result Diagram: 06/22/18 1459 06/22/18 0449 Results 24hrs Laboratory Tests Test 06/22/18 04:49 06/22/18 14:59 White Blood Count 4.1 L 4.2 L Red Blood Count 2.48 L 2.72 L Hemoglobin 7.6 L 8.3 L Hematocrit 23.5 L 25.6 L Mean Corpuscular Volume 94.8 94.1 Mean Corpuscular Hemoglobin 30.6 30.5 Mean Corpuscular Hemoglobin Concent 32.3 32.4 Red Cell Distribution Width 14.7 H 14.8 H Platelet Count 159 168 Mean Platelet Volume 10.1 9.8 Immature Granulocytes % 1.700 H 2.600 H Neutrophils % 73.2 71.8 Lymphocytes % 16.1 15.3 Monocytes % 6.1 6.7 Eosinophils % 2.4 3.1 Basophils % 0.5 0.5 Nucleated Red Blood Cells % 0.0 0.0 Immature Granulocytes # 0.070 H 0.110 H Neutrophils # 3.0 3.0 Lymphocytes # 0.7 L 0.6 L Monocytes # 0.3 0.3 Eosinophils # 0.1 0.1 Basophils # 0.0 0.0 Nucleated Red Blood Cells # 0.0 0.0 Prothrombin Time 26.5 H Prothrombin Time Ratio 2.1 INR International Normalized Ratio 2.43 Sodium Level 137 Potassium Level 3.5 Chloride Level 99 Carbon Dioxide Level 29 Anion Gap 9 Blood Urea Nitrogen 23 H Creatinine 0.96 Est Glomerular Filtrat Rate mL/min 59 L Glucose Level 153 Calcium Level 8.4 Phosphorus Level 3.5 Magnesium Level 1.5 L Exam/Review of Systems Exam Vitals Vital Signs Date Temp Pulse Resp B/P (MAP) Pulse Ox O2 O2 Flow FiO2 Time Delivery Rate 06/22/18 86 12:00 06/22/18 35 120/59 98 Room Air 10:00 (79) 06/22/18 98.4 08:00 Intake and Output 06/21/18 06/21/18 06/22/18 1515:00 23:00 07:00 IntakeIntake Total 768.2 ml 240 ml 120 ml OutputOutput Total 260 ml 260 ml 700 ml BalanceBalance 508.2 ml -20 ml -580 ml Exam Constitutional: alert, oriented Respiratory: clear to auscultation Cardiovascular: regular rate and rhythm Gastrointestinal: soft, non-tender Musculoskeletal: nl extremities to inspection Extremities: normal pulses Neurological: nl mental status Results Results 24hrs Laboratory Tests Test 06/22/18 04:49 06/22/18 14:59 White Blood Count 4.1 L 4.2 L Red Blood Count 2.48 L 2.72 L Hemoglobin 7.6 L 8.3 L Hematocrit 23.5 L 25.6 L Mean Corpuscular Volume 94.8 94.1 Mean Corpuscular Hemoglobin 30.6 30.5 Mean Corpuscular Hemoglobin Concent 32.3 32.4 Red Cell Distribution Width 14.7 H 14.8 H Platelet Count 159 168 Mean Platelet Volume 10.1 9.8 Immature Granulocytes % 1.700 H 2.600 H Neutrophils % 73.2 71.8 Lymphocytes % 16.1 15.3 Monocytes % 6.1 6.7 Eosinophils % 2.4 3.1 Basophils % 0.5 0.5 Nucleated Red Blood Cells % 0.0 0.0 Immature Granulocytes # 0.070 H 0.110 H Neutrophils # 3.0 3.0 Lymphocytes # 0.7 L 0.6 L Monocytes # 0.3 0.3 Eosinophils # 0.1 0.1 Basophils # 0.0 0.0 Nucleated Red Blood Cells # 0.0 0.0 Prothrombin Time 26.5 H Prothrombin Time Ratio 2.1 INR International Normalized Ratio 2.43 Sodium Level 137 Potassium Level 3.5 Chloride Level 99 Carbon Dioxide Level 29 Anion Gap 9 Blood Urea Nitrogen 23 H Creatinine 0.96 Est Glomerular Filtrat Rate mL/min 59 L Glucose Level 153 Calcium Level 8.4 Phosphorus Level 3.5 Magnesium Level 1.5 L Medications Medication Current Medications Acetaminophen (Tylenol Tab) 650 mg Q4H PRN PO FEVER GREATER THAN 100.6 Last administered on 06/11/18 01:38; Admin Dose 650 MG; Start 05/27/18 at 11:30 Al Hydrox/Mg Hydrox/Simethicone (Mag-Al Plus) 30 ml Q4H PRN PO GASTROINTESTINAL UPSET; Start 05/27/18 at 11:30 Ondansetron HCl (Zofran Inj) 4 mg Q4H PRN IV NAUSEA AND/OR VOMITING Last administered on 06/06/18 06:05; Admin Dose 4 MG; Start 05/27/18 at 11:30 Levothyroxine Sodium (Synthroid) 50 mcg BEFORE BREAKFAST PO Last administered on 06/22/18 05:56; Admin Dose 50 MCG; Start 05/30/18 at 07:00 Mometasone Furoate (Asmanex) 1 puff DAILY INH Last administered on 06/22/18 08:39; Admin Dose 1 PUFF; Start 05/29/18 at 11:00 Atorvastatin Calcium (Lipitor) 10 mg DAILY@21 PO Last administered on 06/21/18 20:40; Admin Dose 10 MG; Start 05/29/18 at 21:00 Latanoprost (Xalatan) 1 drop HS BOTH EYES Last administered on 06/21/18 20:40; Admin Dose 1 DROP; Start 06/01/18 at 21:00 Amlodipine Besylate (Norvasc) 5 mg DAILY PO ; Start 06/03/18 at 09:00; Status Hold Pantoprazole (Protonix Tab) 40 mg DAILY@06 PO Last administered on 06/22/18at 05:56; Admin Dose 40 MG; Start 06/05/18 at 06:00 Metoclopramide HCl (Reglan) 5 mg TID PRN IV Nausea; Start 06/06/18 at 11:00 Polyethylene Glycol (Miralax) 17 gm BID PRN PO CONSTIPATION; Start 06/06/18 at 14:00 Bisacodyl (Dulcolax Supp) 10 mg DAILY PRN [place] CONSTIPATION; Start 06/06/18 at 14:00 IV Flush (NS 10 ml) 10 ml PRN PRN IV IV PROTOCOL; Start 06/06/18 at 16:00 Nystatin (Nystatin Susp) 5 ml QID PO Last administered on 06/22/18at 11:54; Admin Dose 5 ML; Start 06/06/18 at 17:00 Metoprolol Tartrate (Lopressor) 25 mg BID PO Last administered on 06/22/18at 08:40; Admin Dose 25 MG; Start 06/13/18 at 21:00 Metoprolol Tartrate (Lopressor) 5 mg Q4H PRN IV HR>110 Hold SBP<100; Start 06/13/18 at 10:30 Morphine Sulfate (morphine) 6 mg Q2H PRN PO FOR NON CARDIAC PAIN (4-10); Start 06/13/18 at 11:30 Docusate Sodium (Colace) 100 mg DAILY PRN PO CONSTIPATION; Start 06/21/18 at 12:00 Warfarin Sodium (Coumadin) 5 mg DAILY@17 PO Last administered on 06/21/18at 17:04; Admin Dose 5 MG; Start 06/21/18 at 17:00 Miscellaneous Information (Pending [facility] Order For Wound Care) This patient gomes... PRN PRN XX WOUND CARE; Start 06/21/18 at 16:00 Bumetanide (Bumex) 1 mg BID DIURETICS PO ; Start 06/22/18 at 18:00 Amiodarone HCl (Cordarone) 200 mg BID PO ; Start 06/22/18 at 21:00 KRISTY MCCULLOUGH Jun 22, 2018 15:43
--- NOTE | 2018-06-22 15:49 | CONS ---
Assessment/Plan Assessment/Plan Hospital Course (Demo Recall) - S/p severe sepsis due to UTI, improved - S/p SIRS due to acute blood loss, improved - S/p nasopharyngeal bleed on 06/11/2018, resolved - s/p UTI due to E. coli, resolved. 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, s/p covered stent placement 6 x 100 mm right common femoral artery and right external iliac artery, abdominal aortogram, catheter introduction to the abdominal aorta, JOSÉ MIGUEL guidance into the central artery 06/02/2018 - s/p retroperitoneal bleed - s/p acute anemia requiring PRBC - s/p CT guided placement of drainage catheter into pelvic hematoma 06/05/2018-->removed on 06/09/2018 - FORREST, improved - s/p L heart catheterization on 05/27/2018 showing no significant obstructive CAD - CAD s/p CABG in in 1982 - H/o MVR with mechanical valve, in 1999 - cholelithiasis without e/o acute cholecystitis - Hypertension - Hyperlipidemia - Hypothyroidism - asthma - s/p FOURNIER, resolved. CT head shows no acute findings - venous JOSÉ MIGUEL of b/l LE was negative for DVT Recommendations: - Continue to monitor Pt off systemic antibiotic. Plan was d/w patient, GONZALO Salazar, and with Dr. Hughes. Thank you Total critical care time spent: 35 minutes. Consultation Date/Type/Reason Admit Date/Time May 28, 2018 at 17:52 Initial Consult Date 06/03/18 Type of Consult ID Requesting Provider: JULY VALENTIN MD Date/Time of Note DATE: 06/22/18 TIME: 15:47 24 HR Interval Summary Free Text/Dictation Patient has remained afebrile with no acute issues reported by RN. There is a transfer to tele pending, no beds. Patient denied all ROS. Per her , the patient is very week on her feet and she was on a chair for 40 minutes earlier. Exam/Review of Systems Exam Vitals Vital Signs Date Temp Pulse Resp B/P (MAP) Pulse Ox O2 O2 Flow FiO2 Time Delivery Rate 06/22/18 86 12:00 06/22/18 35 120/59 98 Room Air 10:00 (79) 06/22/18 98.4 08:00 Intake and Output 06/21/18 06/21/18 06/22/18 1414:59 22:59 06:59 IntakeIntake Total 654.7 ml 360 ml 120 ml OutputOutput Total 215 ml 305 ml 700 ml BalanceBalance 439.7 ml 55 ml -580 ml Allergies Coded Allergies No Known Allergy (Unverified06/09/18) Exam Constitutional: alert, oriented, well developed, other (resting comfortably in bed) Psych: no complaints, nl mood/affect Head: normocephalic, atraumatic Eyes: nl conjunctiva, nl lids, nl sclera ENMT: nl external ears & nose, nl nasal mucosa & septum, mucosa pink and moist Neck: supple, non-tender (not swollen) Respiratory: clear to auscultation, normal air movement Cardiovascular: regular rate and rhythm, nl pulses Gastrointestinal: soft, non-tender (throughout today) Genitourinary - Female: other (f/c draining clear yellow urine) Musculoskeletal: nl extremities to inspection Extremities: normal pulses, edema (BLE ), pitting pedal edema Neurological: FOOD PORTER II-XII intact, nl mental status, nl speech Skin: nl turgor, ecchymosis (scattered); No rash or lesions Results Result Diagram: 06/22/18 1459 06/22/18 0449 Results 24hrs Laboratory Tests Test 06/22/18 04:49 06/22/18 14:59 White Blood Count 4.1 L 4.2 L Red Blood Count 2.48 L 2.72 L Hemoglobin 7.6 L 8.3 L Hematocrit 23.5 L 25.6 L Mean Corpuscular Volume 94.8 94.1 Mean Corpuscular Hemoglobin 30.6 30.5 Mean Corpuscular Hemoglobin Concent 32.3 32.4 Red Cell Distribution Width 14.7 H 14.8 H Platelet Count 159 168 Mean Platelet Volume 10.1 9.8 Immature Granulocytes % 1.700 H 2.600 H Neutrophils % 73.2 71.8 Lymphocytes % 16.1 15.3 Monocytes % 6.1 6.7 Eosinophils % 2.4 3.1 Basophils % 0.5 0.5 Nucleated Red Blood Cells % 0.0 0.0 Immature Granulocytes # 0.070 H 0.110 H Neutrophils # 3.0 3.0 Lymphocytes # 0.7 L 0.6 L Monocytes # 0.3 0.3 Eosinophils # 0.1 0.1 Basophils # 0.0 0.0 Nucleated Red Blood Cells # 0.0 0.0 Prothrombin Time 26.5 H Prothrombin Time Ratio 2.1 INR International Normalized Ratio 2.43 Sodium Level 137 Potassium Level 3.5 Chloride Level 99 Carbon Dioxide Level 29 Anion Gap 9 Blood Urea Nitrogen 23 H Creatinine 0.96 Est Glomerular Filtrat Rate mL/min 59 L Glucose Level 153 Calcium Level 8.4 Phosphorus Level 3.5 Magnesium Level 1.5 L Medications Medication Current Medications Acetaminophen (Tylenol Tab) 650 mg Q4H PRN PO FEVER GREATER THAN 100.6 Last administered on 06/11/18 01:38; Admin Dose 650 MG; Start 05/27/18 at 11:30 Al Hydrox/Mg Hydrox/Simethicone (Mag-Al Plus) 30 ml Q4H PRN PO GASTROINTESTINAL UPSET; Start 05/27/18 at 11:30 Ondansetron HCl (Zofran Inj) 4 mg Q4H PRN IV NAUSEA AND/OR VOMITING Last administered on 06/06/18 06:05; Admin Dose 4 MG; Start 05/27/18 at 11:30 Levothyroxine Sodium (Synthroid) 50 mcg BEFORE BREAKFAST PO Last administered on 06/22/18 05:56; Admin Dose 50 MCG; Start 05/30/18 at 07:00 Mometasone Furoate (Asmanex) 1 puff DAILY INH Last administered on 06/22/18 08:39; Admin Dose 1 PUFF; Start 05/29/18 at 11:00 Atorvastatin Calcium (Lipitor) 10 mg DAILY@21 PO Last administered on 06/21/18 20:40; Admin Dose 10 MG; Start 05/29/18 at 21:00 Latanoprost (Xalatan) 1 drop HS BOTH EYES Last administered on 06/21/18 20:40; Admin Dose 1 DROP; Start 06/01/18 at 21:00 Amlodipine Besylate (Norvasc) 5 mg DAILY PO ; Start 06/03/18 at 09:00; Status Hold Pantoprazole (Protonix Tab) 40 mg DAILY@06 PO Last administered on 06/22/18 05:56; Admin Dose 40 MG; Start 06/05/18 at 06:00 Metoclopramide HCl (Reglan) 5 mg TID PRN IV Nausea; Start 06/06/18 at 11:00 Polyethylene Glycol (Miralax) 17 gm BID PRN PO CONSTIPATION; Start 06/06/18 at 14:00 Bisacodyl (Dulcolax Supp) 10 mg DAILY PRN [place] CONSTIPATION; Start 06/06/18 at 14:00 IV Flush (NS 10 ml) 10 ml PRN PRN IV IV PROTOCOL; Start 06/06/18 at 16:00 Nystatin (Nystatin Susp) 5 ml QID PO Last administered on 06/22/18at 11:54; Admin Dose 5 ML; Start 06/06/18 at 17:00 Metoprolol Tartrate (Lopressor) 25 mg BID PO Last administered on 06/22/18at 08:40; Admin Dose 25 MG; Start 06/13/18 at 21:00 Metoprolol Tartrate (Lopressor) 5 mg Q4H PRN IV HR>110 Hold SBP<100; Start 06/13/18 at 10:30 Morphine Sulfate (morphine) 6 mg Q2H PRN PO FOR NON CARDIAC PAIN (4-10); Start 06/13/18 at 11:30 Docusate Sodium (Colace) 100 mg DAILY PRN PO CONSTIPATION; Start 06/21/18 at 12:00 Warfarin Sodium (Coumadin) 5 mg DAILY@17 PO Last administered on 06/21/18at 17:04; Admin Dose 5 MG; Start 06/21/18 at 17:00 Miscellaneous Information (Pending [facility] Order For Wound Care) This patient fournier... PRN PRN XX WOUND CARE; Start 06/21/18 at 16:00 Bumetanide (Bumex) 1 mg BID DIURETICS PO ; Start 06/22/18 at 18:00 Amiodarone HCl (Cordarone) 200 mg BID PO ; Start 06/22/18 at 21:00 WILIAM HUI NP Jun 22, 2018 15:49
[2018-06-22] MEDS: BUMETANIDE 1 MG TAB PO SCH (18:36)
[2018-06-22] MEDS: WARFARIN 5 MG TAB PO SCH (18:36)
[2018-06-22] MEDS: AMIODARONE 200 MG TAB PO SCH (20:39)
[2018-06-22] MEDS: ATORVASTATIN 10 MG TAB PO SCH (20:39)
[2018-06-22] MEDS: LATANOPROST 0.005% 2.5 ML OPH BOTH EYES SCH (20:40)
[2018-06-23] VITALS (10 sets, daily range): BP systolic 114–128; BP diastolic 56–75; PULSE 57–91; RESP 20–34
[2018-06-23] MEDS: PANTOPRAZOLE (EC) 40 MG TAB PO SCH (06:04)
[2018-06-23] MEDS: LEVOTHYROXINE 50 MCG TAB PO SCH (06:04)
[2018-06-23] MEDS: BUMETANIDE 1 MG TAB PO SCH ×2 (06:04→16:45)
--- NOTE | 2018-06-23 08:37 | CONS ---
Consult Date/Type/Reason Admit Date/Time May 28, 2018 at 17:52 Initial Consult Date 06/03/18 Type of Consultation: Urology Reason for Consultation Urinary incontinence Requesting Provider: JULY VALENTIN MD Date/Time of Note DATE: 06/23/18 TIME: 08:34 Subjective Patient states that her urine is coming out all the time and she cannot walk to the bathroom and she goes into the diaper Objective Vitals Vital Signs Date Temp Pulse Resp B/P (MAP) Pulse Ox O2 O2 Flow FiO2 Time Delivery Rate 06/23/18 97.9 87 20 128/58 97 Room Air 07:21 (81) Intake and Output 06/22/18 06/22/18 06/23/18 1414:59 22:59 06:59 IntakeIntake Total 230 ml 200 ml 200 ml OutputOutput Total 100 ml 400 ml BalanceBalance 230 ml 100 ml -200 ml Exam The abdomen is soft and there is no suprapubic tenderness Results/Medications Result Diagram: 06/23/1825 06/23/18 0625 Results 24 hrs Laboratory Tests Test 06/22/18 14:59 06/23/18 06:25 White Blood Count 4.2 L 4.9 Red Blood Count 2.72 L 2.59 L Hemoglobin 8.3 L 8.0 L Hematocrit 25.6 L 24.6 L Mean Corpuscular Volume 94.1 95.0 Mean Corpuscular Hemoglobin 30.5 30.9 Mean Corpuscular Hemoglobin Concent 32.4 32.5 Red Cell Distribution Width 14.8 H 14.8 H Platelet Count 168 187 Mean Platelet Volume 9.8 9.9 Immature Granulocytes % 2.600 H 3.100 H Neutrophils % 71.8 67.6 Lymphocytes % 15.3 18.6 Monocytes % 6.7 6.8 Eosinophils % 3.1 3.5 Basophils % 0.5 0.4 Nucleated Red Blood Cells % 0.0 0.0 Immature Granulocytes # 0.110 H 0.150 H Neutrophils # 3.0 3.3 Lymphocytes # 0.6 L 0.9 Monocytes # 0.3 0.3 Eosinophils # 0.1 0.2 Basophils # 0.0 0.0 Nucleated Red Blood Cells # 0.0 0.0 Prothrombin Time 24.9 H Prothrombin Time Ratio 1.9 INR International Normalized Ratio 2.25 Sodium Level 132 L Potassium Level 3.8 Chloride Level 98 Carbon Dioxide Level 31 Anion Gap 3 L Blood Urea Nitrogen 22 H Creatinine 0.81 Est Glomerular Filtrat Rate mL/min > 60 Glucose Level 106 # Calcium Level 8.6 Phosphorus Level 3.6 Magnesium Level 1.8 Home Meds Reported Medications Albuterol Sulfate* (Ventolin HFA*) 18 Gm Hfa.aer.ad, 2 PUFF INHALATION Q4H, #1 INHALER 05/26/18 Ergocalciferol (Vitamin D2) (VITAMIN D2) 50,000 Unit Capsule, 21292 UNIT PO [id number], CAP 05/23/18 Warfarin Sodium* (Coumadin*) 5 Mg Tablet, 5 MG PO Q TUES,THUR,SAT, TAB 05/23/18 Warfarin Sodium* (Coumadin*) 4 Mg Tablet, 4 MG PO Q MON,WED,FRI,SUN, TAB 05/23/18 Furosemide* (Furosemide*) 20 Mg Tablet, 20 MG PO DAILY, #60 TAB TAKE Q 2 DAYS 05/23/18 Simvastatin* (Zocor*) 20 Mg Tablet, 20 MG PO QHS, #30 TAB 05/23/18 Ranitidine Hcl* (Ranitidine Hcl*) 150 Mg Tablet, 150 MG PO HS, #30 TAB 05/23/18 Acetaminophen (Mapap) 500 Mg Capsule, 500 MG PO BID PRN for PAIN, CAP 05/23/18 Levothyroxine Sodium* (Levothyroxine Sodium*) 50 Mcg Tablet, 50 MCG PO BEFORE BREAKFAST, #30 TAB 05/23/18 Spironolactone* (Aldactone*) 25 Mg Tablet, 25 MG PO DAILY, #30 TAB 05/23/18 Beclomethasone Dipropionate (Qvar Redihaler (40 MCG)) 10.6 Gm Hfa.aeroba, 10.6 GM IH DAILY, INH 05/23/18 Amlodipine Besylate* (Norvasc*) 5 Mg Tablet, 5 MG PO BID, TAB 05/23/18 Losartan-Hydrochlorothiazide (Losartan-HCTZ) 100-25 Mg Tab, 1 TAB PO DAILY, TAB 05/23/18 Medications Current Medications Acetaminophen (Tylenol Tab) 650 mg Q4H PRN PO FEVER GREATER THAN 100.6 Last administered on 06/11/18at 01:38; Admin Dose 650 MG; Start 05/27/18 at 11:30 Al Hydrox/Mg Hydrox/Simethicone (Mag-Al Plus) 30 ml Q4H PRN PO GASTROINTESTINAL UPSET; Start 05/27/18 at 11:30 Ondansetron HCl (Zofran Inj) 4 mg Q4H PRN IV NAUSEA AND/OR VOMITING Last administered on 06/06/18 06:05; Admin Dose 4 MG; Start 05/27/18 at 11:30 Levothyroxine Sodium (Synthroid) 50 mcg BEFORE BREAKFAST PO Last administered on 06/23/18 06:04; Admin Dose 50 MCG; Start 05/30/18 at 07:00 Mometasone Furoate (Asmanex) 1 puff DAILY INH Last administered on 06/22/18 08:39; Admin Dose 1 PUFF; Start 05/29/18 at 11:00 Atorvastatin Calcium (Lipitor) 10 mg DAILY@21 PO Last administered on 06/22/18 20:39; Admin Dose 10 MG; Start 05/29/18 at 21:00 Latanoprost (Xalatan) 1 drop HS BOTH EYES Last administered on 06/22/18 20:40; Admin Dose 1 DROP; Start 06/01/18 at 21:00 Amlodipine Besylate (Norvasc) 5 mg DAILY PO ; Start 06/03/18 at 09:00; Status Hold Pantoprazole (Protonix Tab) 40 mg DAILY@06 PO Last administered on 06/23/18 06:04; Admin Dose 40 MG; Start 06/05/18 at 06:00 Metoclopramide HCl (Reglan) 5 mg TID PRN IV Nausea; Start 06/06/18 at 11:00 Polyethylene Glycol (Miralax) 17 gm BID PRN PO CONSTIPATION; Start 06/06/18 at 14:00 Bisacodyl (Dulcolax Supp) 10 mg DAILY PRN [place] CONSTIPATION; Start 06/06/18 at 14:00 IV Flush (NS 10 ml) 10 ml PRN PRN IV IV PROTOCOL; Start 06/06/18 at 16:00 Nystatin (Nystatin Susp) 5 ml QID PO Last administered on 06/22/18 20:39; Admin Dose 5 ML; Start 06/06/18 at 17:00 Metoprolol Tartrate (Lopressor) 25 mg BID PO Last administered on 3/13/19at 20:40; Admin Dose 25 MG; Start 06/13/18 at 21:00 Metoprolol Tartrate (Lopressor) 5 mg Q4H PRN IV HR>110 Hold SBP<100; Start 06/13/18 at 10:30 Morphine Sulfate (morphine) 6 mg Q2H PRN PO FOR NON CARDIAC PAIN (4-10); Start 06/13/18 at 11:30 Docusate Sodium (Colace) 100 mg DAILY PRN PO CONSTIPATION; Start 06/21/18 at 12:00 Warfarin Sodium (Coumadin) 5 mg DAILY@17 PO Last administered on 06/22/18at 18:36; Admin Dose 5 MG; Start 06/21/18 at 17:00 Miscellaneous Information (Pending [facility] Order For Wound Care) This patient gomes... PRN PRN XX WOUND CARE; Start 06/21/18 at 16:00 Bumetanide (Bumex) 1 mg BID DIURETICS PO Last administered on 06/23/18at 06:04; Admin Dose 1 MG; Start 06/22/18 at 18:00 Amiodarone HCl (Cordarone) 200 mg BID PO Last administered on 06/22/18at 20:39; Admin Dose 200 MG; Start 06/22/18 at 21:00 Assessment/Plan Hospital Course (Demo Recall) 62-year-old female underwent coronary angiogram. 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 I did insert the catheter for her and she was anuric. Since then she has improved and has been making urine and the urine is clear. The Mensah catheter has been removed and she has been voiding on her own. She has been incontinent however and using the diaper as she cannot go to the bathroom. Continue to observe JOAQUIN DE LEON MD Jun 23, 2018 08:37
--- NOTE | 2018-06-23 08:47 | PN ---
DATE: 06/23/2018 SUBJECTIVE: The patient was transferred from ICU to telemetry. No other events noted overnight. OBJECTIVE: VITAL SIGNS: Blood pressure is 128/58, pulse 87, respirations 20, temperature 97.9. HEENT: Head is normocephalic. NECK: Supple. HEART: Regular rate. LUNGS: Show diminished breath sounds at the base. ABDOMEN: Soft, nontender to palpation without rebound or guarding. EXTREMITIES: Negative for clubbing, cyanosis. Trace edema. DERMATOLOGIC: No rashes. MUSCULOSKELETAL: No joint effusion. NEUROLOGIC: No change in exam. MEDICATIONS: Reviewed. LABORATORY DATA: Reviewed. The patient has sodium 132, BUN 22, creatinine 0.81. White count 4.9, h emoglobin 8.0, and platelet count is 187. ASSESSMENT AND PLAN: 1. Nonoliguric acute kidney injury with previous baseline creatinine of 0.6 mg/dL. Etiology of acut e kidney injury is secondary to acute tubular necrosis. Renal function is improved. Continue to mon itor. 2. Volume overload, improving. Continue current diuretic regimen. Monitor I's and O's and electrol ytes closely. 3. Hypernatremia. Monitor sodium levels and limit free water intake. 4. Hypomagnesemia. Continue to monitor and replete. 5. Anemia. Monitor hemoglobin and hematocrit levels. 6. Coronary artery disease. Continue medical management. 7. Mechanical heart valve. Continue anticoagulation per cardiology. 8. Sepsis secondary to urinary tract infection. The patient is completing antibiotic course. 9. Hypothyroidism. Continue Synthroid. 10. Dyslipidemia. Continue statin therapy. 11. Hypertension. Continue current blood pressure regimen. 12. Intraabdominal hematoma. The patient is clinically improving, status post pigtail placement. 13. Epistaxis, resolved. Dictated By: GWYN FABIAN DO NR/NTS Conf#: [id number] DID#: [id number] CC: JOAQUIN DE LEON MD; JULY VALENTIN MD; CHRIS LAZAR MD;*EndCC*
[2018-06-23] MEDS: NYSTATIN SUSP 5 ML CUP PO SCH ×4 (09:25→21:04)
[2018-06-23] MEDS: AMIODARONE 200 MG TAB PO SCH ×2 (09:25→21:06)
[2018-06-23] MEDS: METOPROLOL 25 MG TAB PO SCH ×2 (09:25→21:06)
[2018-06-23] MEDS: MOMETASONE 0.24 GM INHALER INH SCH (11:24)
--- NOTE | 2018-06-23 12:42 | CONS ---
Assessment/Plan Assessment/Plan Hospital Course (Demo Recall) IMP: 1.cad s/p LHC with no sig obstructive cad 2.HTN 3.RP Bleed s/p transfusions now stable and tolerating heparin/coumadin loading. Then had recurrent bled overnight now s/p covered stent to STREET OPENINGS INSPECTOR/Ext iliac. Stable collection by abd CT 06/06 but still with pigtail catheter in place 4.HL 5.MVR-mechanical 6.anemia- s/p repair of R STREET OPENINGS INSPECTOR/illiac. Had hemoptysis with subsequent drop in Hgb again and holding of heparin. Had some mild blood tinged sputum 7.Hypothyroid 8. GOMES-negative Head CT 9. Fevers-with positive ua 10. UTI 11.ARF-? Contrast induced/compression from hematoma- now improving with in creased urine output and slowly decreasing toggle press operator 12. Coagulopathy-now therapeutic 14. LE weakness-? compression from hematoma and exacerbated by femoral compression after cath-now resolved 15. arterial insuff- LLE- s/p DIGITAL CONTENT COORDINATOR/thrombolysis 06/04 successfully with palpable pulses/B DP/PT and remain that way 16. PAF/AFL-rate controlled 17. Hematuria-resolved at this time 18. Epistaxis-improved 19. Hyponatremia Recc: -Now on tele -Continue BB with well controlled Hr's -Continue statin -s/p course of abx's -ongoing ID f/u -Ongoing surgical f/u -F/U toggle press operator/K closely with creatnine now normalized and volume status improved. Follow low NA today clsoely -Continue coumadin and follow INR closely which is now therapeutic -Follow HGb clsoely which has been stable over multiple days -PT/ambulation -Continue PO bumex and follow volume status closely -willcontinue oppo amio bid for giuliana in attempt to return patient to [facility] -PT/? rehab eval Consultation Date/Type/Reason Admit Date/Time May 28, 2018 at 17:52 Initial Consult Date 05/28/18 Type of Consult Cardiology Reason for Consultation MVR Requesting Provider: JULY VALENTIN MD Date/Time of Note DATE: 06/23/18 TIME: 12:38 Exam/Review of Systems Vital Signs Vitals Vital Signs Date Temp Pulse Resp B/P (MAP) Pulse Ox O2 O2 Flow FiO2 Time Delivery Rate 06/23/18 98.5 75 20 125/57 97 Room Air 11:08 (79) Intake and Output 06/22/18 06/22/18 06/23/18 1515:00 23:00 07:00 IntakeIntake Total 230 ml 200 ml 200 ml OutputOutput Total 100 ml 400 ml BalanceBalance 230 ml 100 ml -200 ml Exam Exam Review of Systems: CONSTITUTIONAL: No fevers, chills. PULMONARY: No sob CARDIOVASCULAR: No chest pain/palpitations GASTROINTESTINAL: No nausea/vomiting. GENITOURINARY: No hematuria/dysuria. MUSCULOSKELETAL: No myagias/arthalgias. PSYCHIATRIC: The patient denies depression. NEUROLOGIC: No weakness Constitutional: alert Psych: no complaints Head: normocephalic ENMT: mucosa pink and moist Neck: supple, jvd (9 cm water) Respiratory: diminished breath sounds (at bases/B) Cardiovascular: regular rate and rhythm Gastrointestinal: soft, non-tender Musculoskeletal: muscle weakness (mild generalized) Extremities: edema (trace/B) Neurological: other (No focal deficits) Labs Result Diagram: 06/23/18 0625 06/23/18 0625 Results 24hrs Laboratory Tests Test 06/22/18 14:59 06/23/18 06:25 White Blood Count 4.2 L 4.9 Red Blood Count 2.72 L 2.59 L Hemoglobin 8.3 L 8.0 L Hematocrit 25.6 L 24.6 L Mean Corpuscular Volume 94.1 95.0 Mean Corpuscular Hemoglobin 30.5 30.9 Mean Corpuscular Hemoglobin Concent 32.4 32.5 Red Cell Distribution Width 14.8 H 14.8 H Platelet Count 168 187 Mean Platelet Volume 9.8 9.9 Immature Granulocytes % 2.600 H 3.100 H Neutrophils % 71.8 67.6 Lymphocytes % 15.3 18.6 Monocytes % 6.7 6.8 Eosinophils % 3.1 3.5 Basophils % 0.5 0.4 Nucleated Red Blood Cells % 0.0 0.0 Immature Granulocytes # 0.110 H 0.150 H Neutrophils # 3.0 3.3 Lymphocytes # 0.6 L 0.9 Monocytes # 0.3 0.3 Eosinophils # 0.1 0.2 Basophils # 0.0 0.0 Nucleated Red Blood Cells # 0.0 0.0 Prothrombin Time 24.9 H Prothrombin Time Ratio 1.9 INR International Normalized Ratio 2.25 Sodium Level 132 L Potassium Level 3.8 Chloride Level 98 Carbon Dioxide Level 31 Anion Gap 3 L Blood Urea Nitrogen 22 H Creatinine 0.81 Est Glomerular Filtrat Rate mL/min > 60 Glucose Level 106 # Calcium Level 8.6 Phosphorus Level 3.6 Magnesium Level 1.8 Medications Medications Current Medications Acetaminophen (Tylenol Tab) 650 mg Q4H PRN PO FEVER GREATER THAN 100.6 Last administered on 06/11/18 01:38; Admin Dose 650 MG; Start 05/27/18 at 11:30 Al Hydrox/Mg Hydrox/Simethicone (Mag-Al Plus) 30 ml Q4H PRN PO GASTROINTESTINAL UPSET; Start 05/27/18 at 11:30 Ondansetron HCl (Zofran Inj) 4 mg Q4H PRN IV NAUSEA AND/OR VOMITING Last administered on 06/06/18 06:05; Admin Dose 4 MG; Start 05/27/18 at 11:30 Levothyroxine Sodium (Synthroid) 50 mcg BEFORE BREAKFAST PO Last administered on 06/23/18 06:04; Admin Dose 50 MCG; Start 05/30/18 at 07:00 Mometasone Furoate (Asmanex) 1 puff DAILY INH Last administered on 06/23/18 11:24; Admin Dose 1 PUFF; Start 05/29/18 at 11:00 Atorvastatin Calcium (Lipitor) 10 mg DAILY@21 PO Last administered on 06/22/18 20:39; Admin Dose 10 MG; Start 05/29/18 at 21:00 Latanoprost (Xalatan) 1 drop HS BOTH EYES Last administered on 06/22/18 20:40; Admin Dose 1 DROP; Start 06/01/18 at 21:00 Amlodipine Besylate (Norvasc) 5 mg DAILY PO ; Start 06/03/18 at 09:00; Status Hold Pantoprazole (Protonix Tab) 40 mg DAILY@06 PO Last administered on 06/23/18 06:04; Admin Dose 40 MG; Start 06/05/18 at 06:00 Metoclopramide HCl (Reglan) 5 mg TID PRN IV Nausea; Start 06/06/18 at 11:00 Polyethylene Glycol (Miralax) 17 gm BID PRN PO CONSTIPATION; Start 06/06/18 at 14:00 Bisacodyl (Dulcolax Supp) 10 mg DAILY PRN [place] CONSTIPATION; Start 06/06/18 at 14:00 IV Flush (NS 10 ml) 10 ml PRN PRN IV IV PROTOCOL; Start 06/06/18 at 16:00 Nystatin (Nystatin Susp) 5 ml QID PO Last administered on 06/23/18 09:25; Admin Dose 5 ML; Start 06/06/18 at 17:00 Metoprolol Tartrate (Lopressor) 25 mg BID PO Last administered on 06/23/18 09:25; Admin Dose 25 MG; Start 06/13/18 at 21:00 Metoprolol Tartrate (Lopressor) 5 mg Q4H PRN IV HR>110 Hold SBP<100; Start 06/13/18 at 10:30 Morphine Sulfate (morphine) 6 mg Q2H PRN PO FOR NON CARDIAC PAIN (4-10); Start 06/13/18 at 11:30 Docusate Sodium (Colace) 100 mg DAILY PRN PO CONSTIPATION; Start 06/21/18 at 12:00 Warfarin Sodium (Coumadin) 5 mg DAILY@17 PO Last administered on 06/22/18at 18:36; Admin Dose 5 MG; Start 06/21/18 at 17:00 Miscellaneous Information (Pending [facility] Order For Wound Care) This patient gomes... PRN PRN XX WOUND CARE; Start 06/21/18 at 16:00 Bumetanide (Bumex) 1 mg BID DIURETICS PO Last administered on 06/23/18 06:04; Admin Dose 1 MG; Start 06/22/18 at 18:00 Amiodarone HCl (Cordarone) 200 mg BID PO Last administered on 06/23/18 09:25; Admin Dose 200 MG; Start 06/22/18 at 21:00 CHRIS LAZAR Jun 23, 2018 12:42
--- NOTE | 2018-06-23 14:52 | CONS ---
Assessment/Plan Assessment/Plan Hospital Course (Demo Recall) - S/p severe sepsis due to UTI, improved - S/p SIRS due to acute blood loss, improved - S/p nasopharyngeal bleed on 06/11/2018, resolved - s/p UTI due to E. coli, resolved. 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, s/p covered stent placement 6 x 100 mm right common femoral artery and right external iliac artery, abdominal aortogram, catheter introduction to the abdominal aorta, JOSÉ MIGUEL guidance into the central artery 06/02/2018 - s/p retroperitoneal bleed - s/p acute anemia requiring PRBC - s/p CT guided placement of drainage catheter into pelvic hematoma 06/05/2018-->removed on 06/09/2018 - FORREST, improved - s/p L heart catheterization on 05/27/2018 showing no significant obstructive CAD - CAD s/p CABG in in 1982 - H/o MVR with mechanical valve, in 1999 - cholelithiasis without e/o acute cholecystitis - Hypertension - Hyperlipidemia - Hypothyroidism - asthma - s/p GOMES, resolved. CT head shows no acute findings - venous JOSÉ MIGUEL of b/l LE was negative for DVT Recommendations: - Continue to monitor Pt off systemic antibiotic. Consultation Date/Type/Reason Admit Date/Time May 28, 2018 at 17:52 Initial Consult Date 06/03/18 Type of Consult ID Requesting Provider: JULY VALENTIN MD Date/Time of Note DATE: 06/23/18 TIME: 14:52 Exam/Review of Systems Exam Vitals Vital Signs Date Temp Pulse Resp B/P (MAP) Pulse Ox O2 O2 Flow FiO2 Time Delivery Rate 06/23/18 98.5 75 20 125/57 97 Room Air 11:08 (79) Intake and Output 06/22/18 06/22/18 06/23/18 1515:00 23:00 07:00 IntakeIntake Total 230 ml 200 ml 200 ml OutputOutput Total 100 ml 400 ml BalanceBalance 230 ml 100 ml -200 ml Constitutional: alert, oriented, well developed Psych: no complaints, nl mood/affect Head: normocephalic, atraumatic Eyes: nl conjunctiva, EOMI, nl lids, nl sclera, PERRL ENMT: nl external ears & nose, nl lips & teeth, nl nasal mucosa & septum Neck: supple, non-tender Respiratory: clear to auscultation, normal air movement Gastrointestinal: soft, nl liver, spleen, non-tender Results Result Diagram: 06/23/18 0625 06/23/18 0625 Results 24hrs Laboratory Tests Test 06/22/18 14:59 06/23/18 06:25 White Blood Count 4.2 L 4.9 Red Blood Count 2.72 L 2.59 L Hemoglobin 8.3 L 8.0 L Hematocrit 25.6 L 24.6 L Mean Corpuscular Volume 94.1 95.0 Mean Corpuscular Hemoglobin 30.5 30.9 Mean Corpuscular Hemoglobin Concent 32.4 32.5 Red Cell Distribution Width 14.8 H 14.8 H Platelet Count 168 187 Mean Platelet Volume 9.8 9.9 Immature Granulocytes % 2.600 H 3.100 H Neutrophils % 71.8 67.6 Lymphocytes % 15.3 18.6 Monocytes % 6.7 6.8 Eosinophils % 3.1 3.5 Basophils % 0.5 0.4 Nucleated Red Blood Cells % 0.0 0.0 Immature Granulocytes # 0.110 H 0.150 H Neutrophils # 3.0 3.3 Lymphocytes # 0.6 L 0.9 Monocytes # 0.3 0.3 Eosinophils # 0.1 0.2 Basophils # 0.0 0.0 Nucleated Red Blood Cells # 0.0 0.0 Prothrombin Time 24.9 H Prothrombin Time Ratio 1.9 INR International Normalized Ratio 2.25 Sodium Level 132 L Potassium Level 3.8 Chloride Level 98 Carbon Dioxide Level 31 Anion Gap 3 L Blood Urea Nitrogen 22 H Creatinine 0.81 Est Glomerular Filtrat Rate mL/min > 60 Glucose Level 106 # Calcium Level 8.6 Phosphorus Level 3.6 Magnesium Level 1.8 Medications Medication Current Medications Acetaminophen (Tylenol Tab) 650 mg Q4H PRN PO FEVER GREATER THAN 100.6 Last administered on 06/11/18at 01:38; Admin Dose 650 MG; Start 05/27/18 at 11:30 Al Hydrox/Mg Hydrox/Simethicone (Mag-Al Plus) 30 ml Q4H PRN PO GASTROINTESTINAL UPSET; Start 05/27/18 at 11:30 Ondansetron HCl (Zofran Inj) 4 mg Q4H PRN IV NAUSEA AND/OR VOMITING Last administered on 06/06/18 06:05; Admin Dose 4 MG; Start 05/27/18 at 11:30 Levothyroxine Sodium (Synthroid) 50 mcg BEFORE BREAKFAST PO Last administered on 06/23/18 06:04; Admin Dose 50 MCG; Start 05/30/18 at 07:00 Mometasone Furoate (Asmanex) 1 puff DAILY INH Last administered on 06/23/18 11:24; Admin Dose 1 PUFF; Start 05/29/18 at 11:00 Atorvastatin Calcium (Lipitor) 10 mg DAILY@21 PO Last administered on 06/22/18 20:39; Admin Dose 10 MG; Start 05/29/18 at 21:00 Latanoprost (Xalatan) 1 drop HS BOTH EYES Last administered on 06/22/18 20:40; Admin Dose 1 DROP; Start 06/01/18 at 21:00 Amlodipine Besylate (Norvasc) 5 mg DAILY PO ; Start 06/03/18 at 09:00; Status Hold Pantoprazole (Protonix Tab) 40 mg DAILY@06 PO Last administered on 06/23/18 06:04; Admin Dose 40 MG; Start 06/05/18 at 06:00 Metoclopramide HCl (Reglan) 5 mg TID PRN IV Nausea; Start 06/06/18 at 11:00 Polyethylene Glycol (Miralax) 17 gm BID PRN PO CONSTIPATION; Start 06/06/18 at 14:00 Bisacodyl (Dulcolax Supp) 10 mg DAILY PRN [place] CONSTIPATION; Start 06/06/18 at 14:00 IV Flush (NS 10 ml) 10 ml PRN PRN IV IV PROTOCOL; Start 06/06/18 at 16:00 Nystatin (Nystatin Susp) 5 ml QID PO Last administered on 06/23/18 13:58; Admin Dose 5 ML; Start 06/06/18 at 17:00 Metoprolol Tartrate (Lopressor) 25 mg BID PO Last administered on 06/23/18 09:25; Admin Dose 25 MG; Start 06/13/18 at 21:00 Metoprolol Tartrate (Lopressor) 5 mg Q4H PRN IV HR>110 Hold SBP<100; Start 06/13/18 at 10:30 Morphine Sulfate (morphine) 6 mg Q2H PRN PO FOR NON CARDIAC PAIN (4-10); Start 06/13/18 at 11:30 Docusate Sodium (Colace) 100 mg DAILY PRN PO CONSTIPATION; Start 06/21/18 at 12:00 Warfarin Sodium (Coumadin) 5 mg DAILY@17 PO Last administered on 06/22/18at 18:36; Admin Dose 5 MG; Start 06/21/18 at 17:00 Miscellaneous Information (Pending [facility]) This patient gomes... PRN PRN XX WOUND CARE; Start 06/21/18 at 16:00 Bumetanide (Bumex) 1 mg BID DIURETICS PO Last administered on 06/23/18at 06:04; Admin Dose 1 MG; Start 06/22/18 at 18:00 Amiodarone HCl (Cordarone) 200 mg BID PO Last administered on 06/23/18at 09:25; Admin Dose 200 MG; Start 06/22/18 at 21:00 MARSHA IYER MD Jun 23, 2018 14:52
--- NOTE | 2018-06-23 15:37 | PN ---
Date/Time of Note Date/Time of Note DATE: 06/23/18 TIME: 15:34 Assessment/Plan VTE Prophylaxis Risk score (from Ns)>0 risk: 3 SCD applied (from Nsg): Yes Pharmacological prophylaxis: warfarin tx Lines/Catheters IV Catheter Type (from Nrsg): PICC Line Central line still needed: Yes Urinary Cath still in place: No Assessment/Plan Hospital Course Patient get easily anxious and tachypneic with activity however was able to work with physical therapy, continued on Coumadin, continue to monitor PT and INR, atrial fibrillation at a controlled rate, acute rehab eval. Assessment/Plan -Nose/oropharyngeal bleed on 06/11/2018, stopped after heparin was held. -Recent retroperitoneal bleed secondary to vascular injury status post stent placement. Monitor H and H. S/p eval by Dr. Kilpatrick, vascular surgery consultation. -Leukocytosis, resolved. Dr. Castellanos is following in infection disease consultation. Patient is off antibiotics. -Status post left heart catheterization with no significant obstructive coronary artery disease by Dr. Moreno on 05/27/2018. -Anemia of acute blood loss, status post blood transfusion, continue to monitor hemoglobin and hematocrit. -Acute illness myopathy -Status post mitral valve replacement with mechanical valve in 1999 in [facility]. Continue Coumadin, monitor PT/INR. -HTN, continue metoprolol -Hyperlipidemia -Hypothyroidism, continue levothyroxine -History of asthma Further recommendations based on clinical course. Plan of care discussed with Dr. Painter. Result Diagram: 06/23/18 0625 06/23/18 0625 Results 24hrs Laboratory Tests Test 06/23/18 06:25 White Blood Count 4.9 Red Blood Count 2.59 L Hemoglobin 8.0 L Hematocrit 24.6 L Mean Corpuscular Volume 95.0 Mean Corpuscular Hemoglobin 30.9 Mean Corpuscular Hemoglobin Concent 32.5 Red Cell Distribution Width 14.8 H Platelet Count 187 Mean Platelet Volume 9.9 Immature Granulocytes % 3.100 H Neutrophils % 67.6 Lymphocytes % 18.6 Monocytes % 6.8 Eosinophils % 3.5 Basophils % 0.4 Nucleated Red Blood Cells % 0.0 Immature Granulocytes # 0.150 H Neutrophils # 3.3 Lymphocytes # 0.9 Monocytes # 0.3 Eosinophils # 0.2 Basophils # 0.0 Nucleated Red Blood Cells # 0.0 Prothrombin Time 24.9 H Prothrombin Time Ratio 1.9 INR International Normalized Ratio 2.25 Sodium Level 132 L Potassium Level 3.8 Chloride Level 98 Carbon Dioxide Level 31 Anion Gap 3 L Blood Urea Nitrogen 22 H Creatinine 0.81 Est Glomerular Filtrat Rate mL/min > 60 Glucose Level 106 # Calcium Level 8.6 Phosphorus Level 3.6 Magnesium Level 1.8 Exam/Review of Systems Exam Vitals Vital Signs Date Temp Pulse Resp B/P (MAP) Pulse Ox O2 O2 Flow FiO2 Time Delivery Rate 06/23/18 97.9 82 20 121/56 96 Room Air 15:12 (77) Intake and Output 06/22/18 06/22/18 06/23/18 1414:59 22:59 06:59 IntakeIntake Total 230 ml 200 ml 200 ml OutputOutput Total 100 ml 400 ml BalanceBalance 230 ml 100 ml -200 ml Exam Constitutional: alert, oriented Respiratory: clear to auscultation Cardiovascular: regular rate and rhythm Gastrointestinal: soft, non-tender Musculoskeletal: nl extremities to inspection Extremities: normal pulses Neurological: nl mental status Results Results 24hrs Laboratory Tests Test 06/23/18 06:25 White Blood Count 4.9 Red Blood Count 2.59 L Hemoglobin 8.0 L Hematocrit 24.6 L Mean Corpuscular Volume 95.0 Mean Corpuscular Hemoglobin 30.9 Mean Corpuscular Hemoglobin Concent 32.5 Red Cell Distribution Width 14.8 H Platelet Count 187 Mean Platelet Volume 9.9 Immature Granulocytes % 3.100 H Neutrophils % 67.6 Lymphocytes % 18.6 Monocytes % 6.8 Eosinophils % 3.5 Basophils % 0.4 Nucleated Red Blood Cells % 0.0 Immature Granulocytes # 0.150 H Neutrophils # 3.3 Lymphocytes # 0.9 Monocytes # 0.3 Eosinophils # 0.2 Basophils # 0.0 Nucleated Red Blood Cells # 0.0 Prothrombin Time 24.9 H Prothrombin Time Ratio 1.9 INR International Normalized Ratio 2.25 Sodium Level 132 L Potassium Level 3.8 Chloride Level 98 Carbon Dioxide Level 31 Anion Gap 3 L Blood Urea Nitrogen 22 H Creatinine 0.81 Est Glomerular Filtrat Rate mL/min > 60 Glucose Level 106 # Calcium Level 8.6 Phosphorus Level 3.6 Magnesium Level 1.8 Medications Medication Current Medications Acetaminophen (Tylenol Tab) 650 mg Q4H PRN PO FEVER GREATER THAN 100.6 Last administered on 06/11/18 01:38; Admin Dose 650 MG; Start 05/27/18 at 11:30 Al Hydrox/Mg Hydrox/Simethicone (Mag-Al Plus) 30 ml Q4H PRN PO GASTROINTESTINAL UPSET; Start 05/27/18 at 11:30 Ondansetron HCl (Zofran Inj) 4 mg Q4H PRN IV NAUSEA AND/OR VOMITING Last administered on 06/06/18 06:05; Admin Dose 4 MG; Start 05/27/18 at 11:30 Levothyroxine Sodium (Synthroid) 50 mcg BEFORE BREAKFAST PO Last administered on 06/23/18 06:04; Admin Dose 50 MCG; Start 05/30/18 at 07:00 Mometasone Furoate (Asmanex) 1 puff DAILY INH Last administered on 06/23/18 11:24; Admin Dose 1 PUFF; Start 05/29/18 at 11:00 Atorvastatin Calcium (Lipitor) 10 mg DAILY@21 PO Last administered on 06/22/18 20:39; Admin Dose 10 MG; Start 05/29/18 at 21:00 Latanoprost (Xalatan) 1 drop HS BOTH EYES Last administered on 06/22/18 20:40; Admin Dose 1 DROP; Start 06/01/18 at 21:00 Amlodipine Besylate (Norvasc) 5 mg DAILY PO ; Start 06/03/18 at 09:00; Status Hold Pantoprazole (Protonix Tab) 40 mg DAILY@06 PO Last administered on 06/23/18 06:04; Admin Dose 40 MG; Start 06/05/18 at 06:00 Metoclopramide HCl (Reglan) 5 mg TID PRN IV Nausea; Start 06/06/18 at 11:00 Polyethylene Glycol (Miralax) 17 gm BID PRN PO CONSTIPATION; Start 06/06/18 at 14:00 Bisacodyl (Dulcolax Supp) 10 mg DAILY PRN [place] CONSTIPATION; Start 06/06/18 at 14:00 IV Flush (NS 10 ml) 10 ml PRN PRN IV IV PROTOCOL; Start 06/06/18 at 16:00 Nystatin (Nystatin Susp) 5 ml QID PO Last administered on 06/23/18 13:58; Admin Dose 5 ML; Start 06/06/18 at 17:00 Metoprolol Tartrate (Lopressor) 25 mg BID PO Last administered on 06/23/18 09:25; Admin Dose 25 MG; Start 06/13/18 at 21:00 Metoprolol Tartrate (Lopressor) 5 mg Q4H PRN IV HR>110 Hold SBP<100; Start 06/13/18 at 10:30 Morphine Sulfate (morphine) 6 mg Q2H PRN PO FOR NON CARDIAC PAIN (4-10); Start 06/13/18 at 11:30 Docusate Sodium (Colace) 100 mg DAILY PRN PO CONSTIPATION; Start 06/21/18 at 12:00 Warfarin Sodium (Coumadin) 5 mg DAILY@17 PO Last administered on 06/22/18 18:36; Admin Dose 5 MG; Start 06/21/18 at 17:00 Miscellaneous Information (Pending [facility] Order For Wound Care) This patient gomes... PRN PRN XX WOUND CARE; Start 06/21/18 at 16:00 Bumetanide (Bumex) 1 mg BID DIURETICS PO Last administered on 06/23/18at 06:04; Admin Dose 1 MG; Start 06/22/18 at 18:00 Amiodarone HCl (Cordarone) 200 mg BID PO Last administered on 06/23/18 09:25; Admin Dose 200 MG; Start 06/22/18 at 21:00 KRISTY MCCULLOUGH Jun 23, 2018 15:37
[2018-06-23] MEDS: WARFARIN 5 MG TAB PO SCH (16:44)
[2018-06-23] MEDS: LATANOPROST 0.005% 2.5 ML OPH BOTH EYES SCH (21:00)
[2018-06-23] MEDS: ATORVASTATIN 10 MG TAB PO SCH (21:04)
[2018-06-24] VITALS (10 sets, daily range): BP systolic 115–129; BP diastolic 55–67; PULSE 63–99; RESP 20
[2018-06-24] MEDS: PANTOPRAZOLE (EC) 40 MG TAB PO SCH (06:01)
[2018-06-24] MEDS: LEVOTHYROXINE 50 MCG TAB PO SCH (06:01)
[2018-06-24] MEDS: BUMETANIDE 1 MG TAB PO SCH (06:01)
--- NOTE | 2018-06-24 08:16 | CONS ---
Consult Date/Type/Reason Admit Date/Time May 28, 2018 at 17:52 Initial Consult Date 06/03/18 Type of Consultation: Urology Reason for Consultation Urinary incontinence Requesting Provider: JULY VALENTIN MD Date/Time of Note DATE: 06/24/18 TIME: 08:13 Subjective Patient states that her urine comes out without her control. She does feel occasionally urged to urinate and she does urinate in the Towers as she is not ambulating to the bathroom Objective Vitals Vital Signs Date Temp Pulse Resp B/P (MAP) Pulse Ox O2 O2 Flow FiO2 Time Delivery Rate 06/24/18 97.5 83 20 115/55 97 Room Air 07:15 (75) Intake and Output 06/23/18 06/23/18 06/24/18 1515:00 23:00 07:00 IntakeIntake Total 420 ml BalanceBalance 420 ml Exam The abdomen is soft, and she does have suprapubic fullness and that may be from the hematoma but we will check make sure she she does not have urinary retention Results/Medications Result Diagram: 06/24/18 0705 06/24/18 0602 Results 24 hrs Laboratory Tests Test 06/24/18 06:02 06/24/18 07:05 Prothrombin Time 25.4 H Prothrombin Time Ratio 2.0 INR International Normalized Ratio 2.30 Sodium Level 134 L Potassium Level 3.5 Chloride Level 97 Carbon Dioxide Level 30 Anion Gap 7 Blood Urea Nitrogen 25 H Creatinine 0.80 Est Glomerular Filtrat Rate mL/min > 60 Glucose Level 116 Calcium Level 8.7 Phosphorus Level 4.0 Magnesium Level 1.7 White Blood Count 5.2 Red Blood Count 2.87 L Hemoglobin 8.5 L Hematocrit 26.8 L Mean Corpuscular Volume 93.4 Mean Corpuscular Hemoglobin 29.6 Mean Corpuscular Hemoglobin Concent 31.7 L Red Cell Distribution Width 15.2 H Platelet Count 206 Mean Platelet Volume 10.0 Immature Granulocytes % 4.800 H Neutrophils % 60.9 Lymphocytes % 20.9 Monocytes % 8.4 Eosinophils % 4.6 Basophils % 0.4 Nucleated Red Blood Cells % 0.0 Immature Granulocytes # 0.250 H Neutrophils # 3.2 Lymphocytes # 1.1 Monocytes # 0.4 Eosinophils # 0.2 Basophils # 0.0 Nucleated Red Blood Cells # 0.0 Home Meds Reported Medications Albuterol Sulfate* (Ventolin HFA*) 18 Gm Hfa.aer.ad, 2 PUFF INHALATION Q4H, #1 INHALER 05/26/18 Ergocalciferol (Vitamin D2) (VITAMIN D2) 50,000 Unit Capsule, 32908 UNIT PO [id number], CAP 05/23/18 Warfarin Sodium* (Coumadin*) 5 Mg Tablet, 5 MG PO Q TUES,THUR,SAT, TAB 05/23/18 Warfarin Sodium* (Coumadin*) 4 Mg Tablet, 4 MG PO Q MON,WED,FRI,SUN, TAB 05/23/18 Furosemide* (Furosemide*) 20 Mg Tablet, 20 MG PO DAILY, #60 TAB TAKE Q 2 DAYS 05/23/18 Simvastatin* (Zocor*) 20 Mg Tablet, 20 MG PO QHS, #30 TAB 05/23/18 Ranitidine Hcl* (Ranitidine Hcl*) 150 Mg Tablet, 150 MG PO HS, #30 TAB 05/23/18 Acetaminophen (Mapap) 500 Mg Capsule, 500 MG PO BID PRN for PAIN, CAP 05/23/18 Levothyroxine Sodium* (Levothyroxine Sodium*) 50 Mcg Tablet, 50 MCG PO BEFORE BREAKFAST, #30 TAB 05/23/18 Spironolactone* (Aldactone*) 25 Mg Tablet, 25 MG PO DAILY, #30 TAB 05/23/18 Beclomethasone Dipropionate (Qvar Redihaler (40 MCG)) 10.6 Gm Hfa.aeroba, 10.6 GM IH DAILY, INH 05/23/18 Amlodipine Besylate* (Norvasc*) 5 Mg Tablet, 5 MG PO BID, TAB 05/23/18 Losartan-Hydrochlorothiazide (Losartan-HCTZ) 100-25 Mg Tab, 1 TAB PO DAILY, TAB 05/23/18 Medications Current Medications Acetaminophen (Tylenol Tab) 650 mg Q4H PRN PO FEVER GREATER THAN 100.6 Last administered on 06/11/18at 01:38; Admin Dose 650 MG; Start 05/27/18 at 11:30 Al Hydrox/Mg Hydrox/Simethicone (Mag-Al Plus) 30 ml Q4H PRN PO GASTROINTESTINAL UPSET; Start 05/27/18 at 11:30 Ondansetron HCl (Zofran Inj) 4 mg Q4H PRN IV NAUSEA AND/OR VOMITING Last administered on 06/06/18 06:05; Admin Dose 4 MG; Start 05/27/18 at 11:30 Levothyroxine Sodium (Synthroid) 50 mcg BEFORE BREAKFAST PO Last administered on 06/24/18 06:01; Admin Dose 50 MCG; Start 05/30/18 at 07:00 Mometasone Furoate (Asmanex) 1 puff DAILY INH Last administered on 06/23/18 11:24; Admin Dose 1 PUFF; Start 05/29/18 at 11:00 Atorvastatin Calcium (Lipitor) 10 mg DAILY@21 PO Last administered on 06/23/18 21:04; Admin Dose 10 MG; Start 05/29/18 at 21:00 Latanoprost (Xalatan) 1 drop HS BOTH EYES Last administered on 06/22/18 20:40; Admin Dose 1 DROP; Start 06/01/18 at 21:00 Amlodipine Besylate (Norvasc) 5 mg DAILY PO ; Start 06/03/18 at 09:00; Status Hold Pantoprazole (Protonix Tab) 40 mg DAILY@06 PO Last administered on 06/24/18 06:01; Admin Dose 40 MG; Start 06/05/18 at 06:00 Metoclopramide HCl (Reglan) 5 mg TID PRN IV Nausea; Start 06/06/18 at 11:00 Polyethylene Glycol (Miralax) 17 gm BID PRN PO CONSTIPATION; Start 06/06/18 at 14:00 Bisacodyl (Dulcolax Supp) 10 mg DAILY PRN [place] CONSTIPATION; Start 06/06/18 at 14:00 IV Flush (NS 10 ml) 10 ml PRN PRN IV IV PROTOCOL; Start 06/06/18 at 16:00 Nystatin (Nystatin Susp) 5 ml QID PO Last administered on 06/23/18 21:04; Ad min Dose 5 ML; Start 06/06/18 at 17:00 Metoprolol Tartrate (Lopressor) 25 mg BID PO Last administered on 06/23/18 21:06; Admin Dose 25 MG; Start 06/13/18 at 21:00 Metoprolol Tartrate (Lopressor) 5 mg Q4H PRN IV HR>110 Hold SBP<100; Start 06/13/18 at 10:30 Morphine Sulfate (morphine) 6 mg Q2H PRN PO FOR NON CARDIAC PAIN (4-10); Start 06/13/18 at 11:30 Docusate Sodium (Colace) 100 mg DAILY PRN PO CONSTIPATION; Start 06/21/18 at 12:00 Warfarin Sodium (Coumadin) 5 mg DAILY@17 PO Last administered on 06/23/18at 16:44; Admin Dose 5 MG; Start 06/21/18 at 17:00 [facility]iscellaneous [facility] This patient gomes... PRN PRN XX WOUND CARE; Start 06/21/18 at 16:00 Bumetanide (Bumex) 1 mg BID DIURETICS PO Last administered on 06/24/18at 06:01; Admin Dose 1 MG; Start 06/22/18 at 18:00 Amiodarone HCl (Cordarone) 200 mg BID PO Last administered on 06/23/18at 21:06; Admin Dose 200 MG; Start 06/22/18 at 21:00 Assessment/Plan Hospital Course (Demo Recall) 62-year-old female underwent coronary angiogram. 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 I did insert the catheter for her and she was anuric. Since then she has improved and has been making urine and the urine is clear. The Mensah catheter has been removed and she has been voiding on her own. She has been incontinent however and using the diaper as she cannot go to the bathroom. I will have the nurse check her postvoid residual with a bladder scan and do a straight cath on her and send urine for culture and sensitivity. JOAQUIN DE LEON MD Jun 24, 2018 08:16
[2018-06-24] MEDS: MOMETASONE 0.24 GM INHALER INH SCH (09:39)
[2018-06-24] MEDS: NYSTATIN SUSP 5 ML CUP PO SCH ×4 (09:39→20:37)
[2018-06-24] MEDS: METOPROLOL 25 MG TAB PO SCH ×2 (09:40→20:36)
[2018-06-24] MEDS: AMIODARONE 200 MG TAB PO SCH ×2 (09:40→20:36)
--- NOTE | 2018-06-24 12:13 | PN ---
DATE: 06/24/2017 SUBJECTIVE: The patient is stable, no events overnight. OBJECTIVE: VITAL SIGNS: Blood pressure 115/55, pulse 83, respirations 20, temperature 97.5. HEENT: Head is normocephalic. NECK: Supple. HEART: Regular rate. LUNGS: Show diminished breath sounds at the base. ABDOMEN: Soft, nontender to palpation without rebound or guarding. EXTREMITIES: Negative for clubbing, cyanosis, no edema. DERMATOLOGIC: No rashes. MUSCULOSKELETAL: No joint effusion. NEUROLOGIC: No change in exam. MEDICATIONS: Reviewed. LABORATORY DATA: Shows sodium 134, potassium 3.5, BUN 25, creatinine 0.80. White count is 5.2, hemo globin 8.5, platelet count is 206. ASSESSMENT AND PLAN: 1. Nonoliguric acute kidney injury with previously normal baseline creatinine of 0.6 mg/dL. Etiolog y is secondary to acute tubular necrosis. Renal function is improved. Continue to monitor. 2. Volume overload, improving. Will deescalate Bumex to once daily. 3. Hypernatremia, improved. 4. Hypomagnesemia. Continue to monitor and replete as needed. 5. Anemia. Monitor hemoglobin and hematocrit levels. 6. Coronary artery disease. Continue medical management. 7. Mechanical heart valve. Continue anticoagulation therapy. 8. Sepsis secondary to urinary tract infection. The patient has completed antibiotic course. 9. Hypothyroidism. Continue Synthroid. 10. Dyslipidemia. Continue statin therapy. 11. Hypertension. Continue current blood pressure regimen. 12. Intraabdominal hematoma. The patient is clinically improving. 13. Epistaxis, resolved. Dictated By: GWYN FABIAN DO NR/SAVANNAH Conf#: [id number] DID#: [id number] CC: CHRIS LAZAR MD;*EndCC*
--- NOTE | 2018-06-24 15:16 | CONS ---
Assessment/Plan Assessment/Plan Hospital Course (Demo Recall) - S/p severe sepsis due to UTI, improved - S/p SIRS due to acute blood loss, improved - S/p nasopharyngeal bleed on 06/11/2018, resolved - s/p UTI due to E. coli, resolved. 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, s/p covered stent placement 6 x 100 mm right common femoral artery and right external iliac artery, abdominal aortogram, catheter introduction to the abdominal aorta, JOSÉ MIGUEL guidance into the central artery 06/02/2018 - s/p retroperitoneal bleed - s/p acute anemia requiring PRBC - s/p CT guided placement of drainage catheter into pelvic hematoma 06/05/2018-->removed on 06/09/2018 - FORREST, improved - s/p L heart catheterization on 05/27/2018 showing no significant obstructive CAD - CAD s/p CABG in in 1982 - H/o MVR with mechanical valve, in 1999 - cholelithiasis without e/o acute cholecystitis - Hypertension - Hyperlipidemia - Hypothyroidism - asthma - s/p FOURNIER, resolved. CT head shows no acute findings - venous JOSÉ MIGUEL of b/l LE was negative for DVT Recommendations: - Continue to monitor Pt off systemic antibiotic. Plan was d/w patient, her at bedside, and with Dr. Hughes. Thank you Consultation Date/Type/Reason Admit Date/Time May 28, 2018 at 17:52 Initial Consult Date 06/03/18 Type of Consult ID Requesting Provider: JULY VALENTIN MD Date/Time of Note DATE: 06/24/18 TIME: 15:15 24 HR Interval Summary Free Text/Dictation The patient has remained afebrile and no acute issues reported by nursing. Per d/w patient and her , she has been up to the chair thrice today. She is smiling, denied all ROS. States her urine is clear yellow when she urinates. Exam/Review of Systems Exam Vitals Vital Signs Date Temp Pulse Resp B/P (MAP) Pulse Ox O2 O2 Flow FiO2 Time Delivery Rate 06/24/18 97.8 74 20 129/59 97 Room Air 15:02 (82) Intake and Output 06/23/18 06/23/18 06/24/18 1515:00 23:00 07:00 IntakeIntake Total 420 ml BalanceBalance 420 ml Allergies Coded Allergies No Known Allergy (Unverified06/09/18) Exam Constitutional: alert, oriented, well developed, other (resting comfortably in bed) Psych: no complaints, nl mood/affect Head: normocephalic, atraumatic Eyes: nl conjunctiva, nl lids, nl sclera ENMT: nl external ears & nose, nl nasal mucosa & septum, mucosa pink and moist Neck: supple, non-tender (not swollen) Respiratory: clear to auscultation, normal air movement Cardiovascular: regular rate and rhythm, nl pulses Gastrointestinal: soft, non-tender (throughout today) Genitourinary - Female: other (no f/c) Musculoskeletal: nl extremities to inspection Extremities: normal pulses, edema (BLE ), pitting pedal edema Neurological: PHARMACY INTAKE TECHNICIAN II-XII intact, nl mental status, nl speech Skin: nl turgor, ecchymosis (scattered); No rash or lesions Results Result Diagram: 06/24/18 0705 06/24/18 0602 Results 24hrs Laboratory Tests Test 06/24/18 06:02 06/24/18 07:05 Prothrombin Time 25.4 H Prothrombin Time Ratio 2.0 INR International Normalized Ratio 2.30 Sodium Level 134 L Potassium Level 3.5 Chloride Level 97 Carbon Dioxide Level 30 Anion Gap 7 Blood Urea Nitrogen 25 H Creatinine 0.80 Est Glomerular Filtrat Rate mL/min > 60 Glucose Level 116 Calcium Level 8.7 Phosphorus Level 4.0 Magnesium Level 1.7 White Blood Count 5.2 Red Blood Count 2.87 L Hemoglobin 8.5 L Hematocrit 26.8 L Mean Corpuscular Volume 93.4 Mean Corpuscular Hemoglobin 29.6 Mean Corpuscular Hemoglobin Concent 31.7 L Red Cell Distribution Width 15.2 H Platelet Count 206 Mean Platelet Volume 10.0 Immature Granulocytes % 4.800 H Neutrophils % 60.9 Lymphocytes % 20.9 Monocytes % 8.4 Eosinophils % 4.6 Basophils % 0.4 Nucleated Red Blood Cells % 0.0 Immature Granulocytes # 0.250 H Neutrophils # 3.2 Lymphocytes # 1.1 Monocytes # 0.4 Eosinophils # 0.2 Basophils # 0.0 Nucleated Red Blood Cells # 0.0 Medications Medication Current Medications Acetaminophen (Tylenol Tab) 650 mg Q4H PRN PO FEVER GREATER THAN 100.6 Last administered on 06/11/18 01:38; Admin Dose 650 MG; Start 05/27/18 at 11:30 Al Hydrox/Mg Hydrox/Simethicone (Mag-Al Plus) 30 ml Q4H PRN PO GASTROINTESTINAL UPSET; Start 05/27/18 at 11:30 Ondansetron HCl (Zofran Inj) 4 mg Q4H PRN IV NAUSEA AND/OR VOMITING Last administered on 06/06/18 06:05; Admin Dose 4 MG; Start 05/27/18 at 11:30 Levothyroxine Sodium (Synthroid) 50 mcg BEFORE BREAKFAST PO Last administered on 06/24/18 06:01; Admin Dose 50 MCG; Start 05/30/18 at 07:00 Mometasone Furoate (Asmanex) 1 puff DAILY INH Last administered on 06/24/18 09:39; Admin Dose 1 PUFF; Start 05/29/18 at 11:00 Atorvastatin Calcium (Lipitor) 10 mg DAILY@21 PO Last administered on 06/23/18 21:04; Admin Dose 10 MG; Start 05/29/18 at 21:00 Latanoprost (Xalatan) 1 drop HS BOTH EYES Last administered on 06/22/18 20:40; Admin Dose 1 DROP; Start 06/01/18 at 21:00 Amlodipine Besylate (Norvasc) 5 mg DAILY PO ; Start 06/03/18 at 09:00; Status Hold Pantoprazole (Protonix Tab) 40 mg DAILY@06 PO Last administered on 06/24/18 06:01; Admin Dose 40 MG; Start 06/05/18 at 06:00 Metoclopramide HCl (Reglan) 5 mg TID PRN IV Nausea; Start 06/06/18 at 11:00 Polyethylene Glycol (Miralax) 17 gm BID PRN PO CONSTIPATION; Start 06/06/18 at 14:00 Bisacodyl (Dulcolax Supp) 10 mg DAILY PRN [place] CONSTIPATION; Start 06/06/18 at 14:00 IV Flush (NS 10 ml) 10 ml PRN PRN IV IV PROTOCOL; Start 06/06/18 at 16:00 Nystatin (Nystatin Susp) 5 ml QID PO Last administered on 06/24/18at 14:20; Admin Dose 5 ML; Start 06/06/18 at 17:00 Metoprolol Tartrate (Lopressor) 25 mg BID PO Last administered on 06/24/18at 09:40; Admin Dose 25 MG; Start 06/13/18 at 21:00 Metoprolol Tartrate (Lopressor) 5 mg Q4H PRN IV HR>110 Hold SBP<100; Start 06/13/18 at 10:30 Morphine Sulfate (morphine) 6 mg Q2H PRN PO FOR NON CARDIAC PAIN (4-10); Start 06/13/18 at 11:30 Docusate Sodium (Colace) 100 mg DAILY PRN PO CONSTIPATION; Start 06/21/18 at 12:00 Warfarin Sodium (Coumadin) 5 mg DAILY@17 PO Last administered on 06/23/18at 16:44; Admin Dose 5 MG; Start 06/21/18 at 17:00 Miscellaneous Information (Pending [facility] Order For Wound Care) This patient fournier... PRN PRN XX WOUND CARE; Start 06/21/18 at 16:00 Amiodarone HCl (Cordarone) 200 mg BID PO Last administered on 06/24/18at 09:40; Admin Dose 200 MG; Start 06/22/18 at 21:00 Bumetanide (Bumex) 1 mg DAILY@0600 PO ; Start 06/25/18 at 06:00 WILIAM HUI NP Jun 24, 2018 15:16
--- NOTE | 2018-06-24 16:13 | CONS ---
Assessment/Plan Assessment/Plan Hospital Course (Demo Recall) IMP: 1.cad s/p LHC with no sig obstructive cad 2.HTN 3.RP Bleed s/p transfusions now stable and tolerating heparin/coumadin loading. Then had recurrent bled overnight now s/p covered stent to ELECTORAL OFFICER/Ext iliac. Stable collection by abd CT 06/06 but still with pigtail catheter in place 4.HL 5.MVR-mechanical 6.anemia- s/p repair of R ELECTORAL OFFICER/illiac. Had hemoptysis with subsequent drop in Hgb again and holding of heparin. Had some mild blood tinged sputum 7.Hypothyroid 8. GOMES-negative Head CT 9. Fevers-with positive ua 10. UTI 11.ARF-? Contrast induced/compression from hematoma- now improving with in creased urine output and slowly decreasing bridge tender 12. Coagulopathy-now therapeutic 14. LE weakness-? compression from hematoma and exacerbated by femoral compression after cath-now resolved 15. arterial insuff- LLE- s/p READING ASSISTANT/thrombolysis 06/04 successfully with palpable pulses/B DP/PT and remain that way 16. PAF/AFL-rate controlled 17. Hematuria-resolved at this time 18. Epistaxis-improved 19. Hyponatremia Recc: -Now on tele -Continue BB with well controlled Hr's -Continue statin -s/p course of abx's -ongoing ID f/u -Ongoing surgical f/u -F/U bridge tender/K closely with creatnine now normalized and volume status improved. Follow low NA today clsoely -Continue coumadin and follow INR closely which is now therapeutic -Follow HGb clsoely which has been stable over multiple days -PT/ambulation -Continue PO bumex and follow volume status closely -will continue amio bid for now in attempt to return patient to [facility] -PT/? rehab eval Consultation Date/Type/Reason Admit Date/Time May 28, 2018 at 17:52 Initial Consult Date 05/28/18 Type of Consult Cardiology Reason for Consultation MVR Requesting Provider: JULY VALENTIN MD Date/Time of Note DATE: 06/24/18 TIME: 16:08 Exam/Review of Systems Vital Signs Vitals Vital Signs Date Temp Pulse Resp B/P (MAP) Pulse Ox O2 O2 Flow FiO2 Time Delivery Rate 06/24/18 97.8 74 20 129/59 97 Room Air 15:02 (82) Intake and Output 06/23/18 06/23/18 06/24/18 1515:00 23:00 07:00 IntakeIntake Total 420 ml BalanceBalance 420 ml Exam Exam Review of Systems: CONSTITUTIONAL: No fevers, chills. PULMONARY: No sob CARDIOVASCULAR: No chest pain/palpitations GASTROINTESTINAL: No nausea/vomiting. GENITOURINARY: No hematuria/dysuria. MUSCULOSKELETAL: No myagias/arthalgias. PSYCHIATRIC: The patient denies depression. NEUROLOGIC: No weakness Constitutional: alert Psych: no complaints Head: normocephalic ENMT: mucosa pink and moist Neck: supple, jvd Respiratory: diminished breath sounds Cardiovascular: regular rate and rhythm Gastrointestinal: soft, non-tender Musculoskeletal: muscle tone Extremities: edema (none) Neurological: other (No focal deficits) Labs Result Diagram: 06/24/18 0705 06/24/18 0602 Results 24hrs Laboratory Tests Test 06/24/18 06:02 06/24/18 07:05 Prothrombin Time 25.4 H Prothrombin Time Ratio 2.0 INR International Normalized Ratio 2.30 Sodium Level 134 L Potassium Level 3.5 Chloride Level 97 Carbon Dioxide Level 30 Anion Gap 7 Blood Urea Nitrogen 25 H Creatinine 0.80 Est Glomerular Filtrat Rate mL/min > 60 Glucose Level 116 Calcium Level 8.7 Phosphorus Level 4.0 Magnesium Level 1.7 White Blood Count 5.2 Red Blood Count 2.87 L Hemoglobin 8.5 L Hematocrit 26.8 L Mean Corpuscular Volume 93.4 Mean Corpuscular Hemoglobin 29.6 Mean Corpuscular Hemoglobin Concent 31.7 L Red Cell Distribution Width 15.2 H Platelet Count 206 Mean Platelet Volume 10.0 Immature Granulocytes % 4.800 H Neutrophils % 60.9 Lymphocytes % 20.9 Monocytes % 8.4 Eosinophils % 4.6 Basophils % 0.4 Nucleated Red Blood Cells % 0.0 Immature Granulocytes # 0.250 H Neutrophils # 3.2 Lymphocytes # 1.1 Monocytes # 0.4 Eosinophils # 0.2 Basophils # 0.0 Nucleated Red Blood Cells # 0.0 Medications Medications Current Medications Acetaminophen (Tylenol Tab) 650 mg Q4H PRN PO FEVER GREATER THAN 100.6 Last administered on 06/11/18at 01:38; Admin Dose 650 MG; Start 05/27/18 at 11:30 Al Hydrox/Mg Hydrox/Simethicone (Mag-Al Plus) 30 ml Q4H PRN PO GASTROINTESTINAL UPSET; Start 05/27/18 at 11:30 Ondansetron HCl (Zofran Inj) 4 mg Q4H PRN IV NAUSEA AND/OR VOMITING Last administered on 06/06/18 06:05; Admin Dose 4 MG; Start 05/27/18 at 11:30 Levothyroxine Sodium (Synthroid) 50 mcg BEFORE BREAKFAST PO Last administered on 06/24/18 06:01; Admin Dose 50 MCG; Start 05/30/18 at 07:00 Mometasone Furoate (Asmanex) 1 puff DAILY INH Last administered on 06/24/18 09:39; Admin Dose 1 PUFF; Start 05/29/18 at 11:00 Atorvastatin Calcium (Lipitor) 10 mg DAILY@21 PO Last administered on 06/23/18 21:04; Admin Dose 10 MG; Start 05/29/18 at 21:00 Latanoprost (Xalatan) 1 drop HS BOTH EYES Last administered on 06/22/18at 20:40; Admin Dose 1 DROP; Start 06/01/18 at 21:00 Amlodipine Besylate (Norvasc) 5 mg DAILY PO ; Start 06/03/18 at 09:00; Status Hold Pantoprazole (Protonix Tab) 40 mg DAILY@06 PO Last administered on 06/24/18 06:01; Admin Dose 40 MG; Start 06/05/18 at 06:00 Metoclopramide HCl (Reglan) 5 mg TID PRN IV Nausea; Start 06/06/18 at 11:00 Polyethylene Glycol (Miralax) 17 gm BID PRN PO CONSTIPATION; Start 06/06/18 at 14:00 Bisacodyl (Dulcolax Supp) 10 mg DAILY PRN [place] CONSTIPATION; Start 06/06/18 at 14:00 IV Flush (NS 10 ml) 10 ml PRN PRN IV IV PROTOCOL; Start 06/06/18 at 16:00 Nystatin (Nystatin Susp) 5 ml QID PO Last administered on 06/24/18 14:20; Admin Dose 5 ML; Start 06/06/18 at 17:00 Metoprolol Tartrate (Lopressor) 25 mg BID PO Last administered on 3/15/19at 09:40; Admin Dose 25 MG; Start 06/13/18 at 21:00 Metoprolol Tartrate (Lopressor) 5 mg Q4H PRN IV HR>110 Hold SBP<100; Start 06/13/18 at 10:30 Morphine Sulfate (morphine) 6 mg Q2H PRN PO FOR NON CARDIAC PAIN (4-10); Start 06/13/18 at 11:30 Docusate Sodium (Colace) 100 mg DAILY PRN PO CONSTIPATION; Start 06/21/18 at 12:00 Warfarin Sodium (Coumadin) 5 mg DAILY@17 PO Last administered on 06/23/18at 16:44; Admin Dose 5 MG; Start 06/21/18 at 17:00 Miscellaneous Information (Pending [facility] Order For Wound Care) This patient gomes... PRN PRN XX WOUND CARE; Start 06/21/18 at 16:00 Amiodarone HCl (Cordarone) 200 mg BID PO Last administered on 06/24/18at 09:40; Admin Dose 200 MG; Start 06/22/18 at 21:00 Bumetanide (Bumex) 1 mg DAILY@0600 PO ; Start 06/25/18 at 06:00 CHRIS LAZAR Jun 24, 2018 16:13
[2018-06-24] MEDS: WARFARIN 5 MG TAB PO SCH (18:00)
--- NOTE | 2018-06-24 19:45 | PN ---
Date/Time of Note Date/Time of Note DATE: 06/24/18 TIME: 19:40 Assessment/Plan VTE Prophylaxis Risk score (from Nsg)>0 risk: 3 SCD applied (from Nsg): Yes Pharmacological prophylaxis: warfarin tx Lines/Catheters IV Catheter Type (from Nrsg): PICC Line Central line still needed: Yes Urinary Cath still in place: No Assessment/Plan Hospital Course Patient continues on room air without distress, occasional tachycardia tachypnea, however is able to work with physical therapy, pending acute rehab eval. Assessment/Plan -Nose/oropharyngeal bleed on 06/11/2018, stopped after heparin was held. -Recent retroperitoneal bleed secondary to vascular injury status post stent placement. Monitor H and H. S/p eval by Dr. Kilpatrick, vascular surgery con sultation. -Leukocytosis, resolved. Dr. Castellanos is following in infection disease consultation. Patient is off antibiotics. -Status post left heart catheterization with no significant obstructive coronary artery disease by Dr. Moreno on 05/27/2018. -Anemia of acute blood loss, status post blood transfusion, continue to monitor hemoglobin and hematocrit. -Acute illness myopathy -Status post mitral valve replacement with mechanical valve in 1999 in [facility]. Continue Coumadin, monitor PT/INR. -HTN, continue metoprolol -Hyperlipidemia -Hypothyroidism, continue levothyroxine -History of asthma Further recommendations based on clinical course. Plan of care discussed with Dr. Painter. Result Diagram: 06/24/18 0705 06/24/18 0602 Results 24hrs Laboratory Tests Test 06/24/18 06:02 06/24/18 07:05 Prothrombin Time 25.4 H Prothrombin Time Ratio 2.0 INR International Normalized Ratio 2.30 Sodium Level 134 L Potassium Level 3.5 Chloride Level 97 Carbon Dioxide Level 30 Anion Gap 7 Blood Urea Nitrogen 25 H Creatinine 0.80 Est Glomerular Filtrat Rate mL/min > 60 Glucose Level 116 Calcium Level 8.7 Phosphorus Level 4.0 Magnesium Level 1.7 White Blood Count 5.2 Red Blood Count 2.87 L Hemoglobin 8.5 L Hematocrit 26.8 L Mean Corpuscular Volume 93.4 Mean Corpuscular Hemoglobin 29.6 Mean Corpuscular Hemoglobin Concent 31.7 L Red Cell Distribution Width 15.2 H Platelet Count 206 Mean Platelet Volume 10.0 Immature Granulocytes % 4.800 H Neutrophils % 60.9 Lymphocytes % 20.9 Monocytes % 8.4 Eosinophils % 4.6 Basophils % 0.4 Nucleated Red Blood Cells % 0.0 Immature Granulocytes # 0.250 H Neutrophils # 3.2 Lymphocytes # 1.1 Monocytes # 0.4 Eosinophils # 0.2 Basophils # 0.0 Nucleated Red Blood Cells # 0.0 Exam/Review of Systems Exam Vitals Vital Signs Date Temp Pulse Resp B/P (MAP) Pulse Ox O2 O2 Flow FiO2 Time Delivery Rate 06/24/18 76 16:44 06/24/18 97.8 20 129/59 97 Room Air 15:02 (82) Intake and Output 06/23/18 06/23/18 06/24/18 1515:00 23:00 07:00 IntakeIntake Total 420 ml BalanceBalance 420 ml Exam Constitutional: alert, oriented Respiratory: clear to auscultation Cardiovascular: regular rate and rhythm Gastrointestinal: soft, non-tender Musculoskeletal: nl extremities to inspection Extremities: normal pulses Neurological: nl mental status Results Results 24hrs Laboratory Tests Test 06/24/18 06:02 06/24/18 07:05 Prothrombin Time 25.4 H Prothrombin Time Ratio 2.0 INR International Normalized Ratio 2.30 Sodium Level 134 L Potassium Level 3.5 Chloride Level 97 Carbon Dioxide Level 30 Anion Gap 7 Blood Urea Nitrogen 25 H Creatinine 0.80 Est Glomerular Filtrat Rate mL/min > 60 Glucose Level 116 Calcium Level 8.7 Phosphorus Level 4.0 Magnesium Level 1.7 White Blood Count 5.2 Red Blood Count 2.87 L Hemoglobin 8.5 L Hematocrit 26.8 L Mean Corpuscular Volume 93.4 Mean Corpuscular Hemoglobin 29.6 Mean Corpuscular Hemoglobin Concent 31.7 L Red Cell Distribution Width 15.2 H Platelet Count 206 Mean Platelet Volume 10.0 Immature Granulocytes % 4.800 H Neutrophils % 60.9 Lymphocytes % 20.9 Monocytes % 8.4 Eosinophils % 4.6 Basophils % 0.4 Nucleated Red Blood Cells % 0.0 Immature Granulocytes # 0.250 H Neutrophils # 3.2 Lymphocytes # 1.1 Monocytes # 0.4 Eosinophils # 0.2 Basophils # 0.0 Nucleated Red Blood Cells # 0.0 Medications Medication Current Medications Acetaminophen (Tylenol Tab) 650 mg Q4H PRN PO FEVER GREATER THAN 100.6 Last administered on 06/11/18at 01:38; Admin Dose 650 MG; Start 05/27/18 at 11:30 Al Hydrox/Mg Hydrox/Simethicone (Mag-Al Plus) 30 ml Q4H PRN PO GASTROINTESTINAL UPSET; Start 05/27/18 at 11:30 Ondansetron HCl (Zofran Inj) 4 mg Q4H PRN IV NAUSEA AND/OR VOMITING Last administered on 06/06/18at 06:05; Admin Dose 4 MG; Start 05/27/18 at 11:30 Levothyroxine Sodium (Synthroid) 50 mcg BEFORE BREAKFAST PO Last administered on 06/24/18 06:01; Admin Dose 50 MCG; Start 05/30/18 at 07:00 Mometasone Furoate (Asmanex) 1 puff DAILY INH Last administered on 06/24/18at 09:39; Admin Dose 1 PUFF; Start 05/29/18 at 11:00 Atorvastatin Calcium (Lipitor) 10 mg DAILY@21 PO Last administered on 06/23/18at 21:04; Admin Dose 10 MG; Start 05/29/18 at 21:00 Latanoprost (Xalatan) 1 drop HS BOTH EYES Last administered on 06/22/18at 20:40; Admin Dose 1 DROP; Start 06/01/18 at 21:00 Amlodipine Besylate (Norvasc) 5 mg DAILY PO ; Start 06/03/18 at 09:00; Status Hold Pantoprazole (Protonix Tab) 40 mg DAILY@06 PO Last administered on 06/24/18at 06:01; Admin Dose 40 MG; Start 06/05/18 at 06:00 Metoclopramide HCl (Reglan) 5 mg TID PRN IV Nausea; Start 06/06/18 at 11:00 Polyethylene Glycol (Miralax) 17 gm BID PRN PO CONSTIPATION; Start 06/06/18 at 14:00 Bisacodyl (Dulcolax Supp) 10 mg DAILY PRN [place] CONSTIPATION; Start 06/06/18 at 14:00 IV Flush (NS 10 ml) 10 ml PRN PRN IV IV PROTOCOL; Start 06/06/18 at 16:00 Nystatin (Nystatin Susp) 5 ml QID PO Last administered on 06/24/18at 17:59; Admin Dose 5 ML; Start 06/06/18 at 17:00 Metoprolol Tartrate (Lopressor) 25 mg BID PO Last administered on 06/24/18at 09:40; Admin Dose 25 MG; Start 06/13/18 at 21:00 Metoprolol Tartrate (Lopressor) 5 mg Q4H PRN IV HR>110 Hold SBP<100; Start 06/13/18 at 10:30 Morphine Sulfate (morphine) 6 mg Q2H PRN PO FOR NON CARDIAC PAIN (4-10); Start 06/13/18 at 11:30 Docusate Sodium (Colace) 100 mg DAILY PRN PO CONSTIPATION; Start 06/21/18 at 12:00 Warfarin Sodium (Coumadin) 5 mg DAILY@17 PO Last administered on 06/24/18at 18:00; Admin Dose 5 MG; Start 06/21/18 at 17:00 [facility] This patient gomes... PRN PRN XX WOUND CARE; Start 06/21/18 at 16:00 Amiodarone HCl (Cordarone) 200 mg BID PO Last administered on 06/24/18at 09:40; Admin Dose 200 MG; Start 06/22/18 at 21:00 Bumetanide (Bumex) 1 mg DAILY@0600 PO ; Start 06/25/18 at 06:00 KRISTY MCCULLOUGH Jun 24, 2018 19:45
[2018-06-24] MEDS: ATORVASTATIN 10 MG TAB PO SCH (20:35)
[2018-06-24] MEDS: LATANOPROST 0.005% 2.5 ML OPH BOTH EYES SCH (20:37)
[2018-06-25] VITALS (10 sets, daily range): BP systolic 103–126; BP diastolic 52–58; PULSE 68–85; RESP 18–20
[2018-06-25] MEDS: BUMETANIDE 1 MG TAB PO SCH (06:03)
[2018-06-25] MEDS: LEVOTHYROXINE 50 MCG TAB PO SCH (06:03)
[2018-06-25] MEDS: PANTOPRAZOLE (EC) 40 MG TAB PO SCH (06:03)
[2018-06-25] MEDS: MOMETASONE 0.24 GM INHALER INH SCH (09:22)
[2018-06-25] MEDS: NYSTATIN SUSP 5 ML CUP PO SCH ×4 (09:22→21:30)
[2018-06-25] MEDS: AMIODARONE 200 MG TAB PO SCH ×2 (09:23→21:30)
[2018-06-25] MEDS: METOPROLOL 25 MG TAB PO SCH ×2 (09:23→21:31)
--- NOTE | 2018-06-25 10:22 | PN ---
Date/Time of Note Date/Time of Note DATE: 06/25/18 TIME: 10:21 Assessment/Plan VTE Prophylaxis Risk score (from Nsg)>0 risk: 9 SCD applied (from Nsg): Yes Pharmacological prophylaxis: other Lines/Catheters IV Catheter Type (from Nrsg): PICC Line Central line still needed: Yes Urinary Cath still in place: No Assessment/Plan Hospital Course renal follow up SUBJECTIVE: The patient is stable, no events overnight. d/w Dr Laughlin no fever, chills or hematuria OBJECTIVE: HEENT: Head is normocephalic. NECK: Supple. HEART: Regular rate. LUNGS: Show diminished breath sounds at the base. ABDOMEN: Soft, nontender to palpation without rebound or guarding. EXTREMITIES: Negative for clubbing, cyanosis, no edema. DERMATOLOGIC: No rashes. MUSCULOSKELETAL: No joint effusion. NEUROLOGIC: No change in exam. MEDICATIONS: Reviewed. LABORATORY DATA: Shows sodium 134, potassium 3.5, BUN 25, creatinine 0.80. White count is 5.2, hemoglobin 8.5, platelet count is 206. ASSESSMENT AND PLAN: 1. Nonoliguric acute kidney injury with previously normal baseline creatinine of 0.6 mg/dL. Etiology is secondary to acute tubular necrosis. Renal function is improved. Continue to monitor. 2. Volume overload, improving. Will deescalate Bumex to once daily. will replete K 3. Hypernatremia, improved. 4. Hypomagnesemia. Continue to monitor and replete as needed. 5. Anemia. Monitor hemoglobin and hematocrit levels. 6. Coronary artery disease. Continue medical management. 7. Mechanical heart valve. Continue anticoagulation therapy. 8. Sepsis secondary to urinary tract infection. The patient has completed antibiotic course. 9. Hypothyroidism. Continue Synthroid. 10. Dyslipidemia. Continue statin therapy. 11. Hypertension. Continue current blood pressure regimen. 12. Intraabdominal hematoma. The patient is clinically improving. 13. Epistaxis, resolved. Result Diagram: 06/24/18 0705 06/25/18 0602 Results 24hrs Laboratory Tests Test 06/25/18 06:02 Prothrombin Time 25.8 H Prothrombin Time Ratio 2.0 INR International Normalized Ratio 2.35 Sodium Level 137 Potassium Level 3.4 L Chloride Level 101 Carbon Dioxide Level 30 Anion Gap 6 Blood Urea Nitrogen 28 H Creatinine 0.83 Est Glomerular Filtrat Rate mL/min > 60 Glucose Level 106 Calcium Level 8.8 Phosphorus Level 3.7 Magnesium Level 1.8 Exam/Review of Systems Exam Vitals Vital Signs Date Temp Pulse Resp B/P (MAP) Pulse Ox O2 O2 Flow FiO2 Time Delivery Rate 06/25/18 75 08:00 06/25/18 97.9 20 115/54 95 Room Air 07:30 (74) Intake and Output 06/24/18 06/24/18 06/25/18 1515:00 23:00 07:00 IntakeIntake Total 1600 ml 500 ml OutputOutput Total 900 ml BalanceBalance 1600 ml -400 ml Results Results 24hrs Laboratory Tests Test 06/25/18 06:02 Prothrombin Time 25.8 H Prothrombin Time Ratio 2.0 INR International Normalized Ratio 2.35 Sodium Level 137 Potassium Level 3.4 L Chloride Level 101 Carbon Dioxide Level 30 Anion Gap 6 Blood Urea Nitrogen 28 H Creatinine 0.83 Est Glomerular Filtrat Rate mL/min > 60 Glucose Level 106 Calcium Level 8.8 Phosphorus Level 3.7 Magnesium Level 1.8 Medications Medication Current Medications Acetaminophen (Tylenol Tab) 650 mg Q4H PRN PO FEVER GREATER THAN 100.6 Last administered on 06/11/18 01:38; Admin Dose 650 MG; Start 05/27/18 at 11:30 Al Hydrox/Mg Hydrox/Simethicone (Mag-Al Plus) 30 ml Q4H PRN PO GASTROINTESTINAL UPSET; Start 05/27/18 at 11:30 Ondansetron HCl (Zofran Inj) 4 mg Q4H PRN IV NAUSEA AND/OR VOMITING Last administered on 06/06/18 06:05; Admin Dose 4 MG; Start 05/27/18 at 11:30 Levothyroxine Sodium (Synthroid) 50 mcg BEFORE BREAKFAST PO Last administered on 06/25/18 06:03; Admin Dose 50 MCG; Start 05/30/18 at 07:00 Mometasone Furoate (Asmanex) 1 puff DAILY INH Last administered on 06/25/18 09:22; Admin Dose 1 PUFF; Start 05/29/18 at 11:00 Atorvastatin Calcium (Lipitor) 10 mg DAILY@21 PO Last administered on 06/24/18at 20:35; Admin Dose 10 MG; Start 05/29/18 at 21:00 Latanoprost (Xalatan) 1 drop HS BOTH EYES Last administered on 06/24/18at 20:37; Admin Dose 1 DROP; Start 06/01/18 at 21:00 Amlodipine Besylate (Norvasc) 5 mg DAILY PO ; Start 06/03/18 at 09:00; Status Hold Pantoprazole (Protonix Tab) 40 mg DAILY@06 PO Last administered on 06/25/18at 06:03; Admin Dose 40 MG; Start 06/05/18 at 06:00 Metoclopramide HCl (Reglan) 5 mg TID PRN IV Nausea; Start 06/06/18 at 11:00 Polyethylene Glycol (Miralax) 17 gm BID PRN PO CONSTIPATION; Start 06/06/18 at 14:00 Bisacodyl (Dulcolax Supp) 10 mg DAILY PRN [place] CONSTIPATION; Start 06/06/18 at 14:00 IV Flush (NS 10 ml) 10 ml PRN PRN IV IV PROTOCOL; Start 06/06/18 at 16:00 Nystatin (Nystatin Susp) 5 ml QID PO Last administered on 06/25/18at 09:22; Admin Dose 5 ML; Start 06/06/18 at 17:00 Metoprolol Tartrate (Lopressor) 25 mg BID PO Last administered on 06/25/18 09:23; Admin Dose 25 MG; Start 06/13/18 at 21:00 Metoprolol Tartrate (Lopressor) 5 mg Q4H PRN IV HR>110 Hold SBP<100; Start 06/13/18 at 10:30 Morphine Sulfate (morphine) 6 mg Q2H PRN PO FOR NON CARDIAC PAIN (4-10); Start 06/13/18 at 11:30 Docusate Sodium (Colace) 100 mg DAILY PRN PO CONSTIPATION; Start 06/21/18 at 12:00 Warfarin Sodium (Coumadin) 5 mg DAILY@17 PO Last administered on 06/24/18at 18:00; Admin Dose 5 MG; Start 06/21/18 at 17:00 Miscellaneous Information (Pending Santyl Order For Wound Care) This patient gomes... PRN PRN XX WOUND CARE; Start 06/21/18 at 16:00 Amiodarone HCl (Cordarone) 200 mg BID PO Last administered on 06/25/18 09:23; Admin Dose 200 MG; Start 06/22/18 at 21:00 Bumetanide (Bumex) 1 mg DAILY@0600 PO Last administered on 06/25/18at 06:03; Admin Dose 1 MG; Start 06/25/18 at 06:00 NURIA BAUTISTA DO Jun 25, 2018 10:22
[2018-06-25] MEDS ORDERED: POTASSIUM CHLORIDE (SR) 10 MEQ TAB PO ONE (10:30)
--- NOTE | 2018-06-25 13:38 | CONS ---
Consult Date/Type/Reason Admit Date/Time May 28, 2018 at 17:52 Initial Consult Date Type of Consultation: Urology Requesting Provider: JULY VALENTIN MD Date/Time of Note DATE: 06/25/18 TIME: 13:36 Subjective NO acute events - pt stable - no CP - INR 2.35 - beginning to ambulate - better ovearll - acute rehab to follow. ROS: No fever, no chills, no nausea, no vomiting, no diarrhea/constipation No recent weight changes No chest pain, no PND, no orthopnea No dizziness, blurred vision No thirst, no heat or cold intolerance LE pin with ambulation Objective Vitals Vital Signs Date Temp Pulse Resp B/P (MAP) Pulse Ox O2 O2 Flow FiO2 Time Delivery Rate 06/25/18 73 12:00 06/25/18 97.9 20 115/54 95 Room Air 07:30 (74) Intake and Output 06/24/18 06/24/18 06/25/18 1414:59 22:59 06:59 IntakeIntake Total 1600 ml 500 ml OutputOutput Total 900 ml BalanceBalance 1600 ml -400 ml Exam General: WN/WD/NAD, AOx 3 HEENT: Unicetric/atraumatic/EOMI (follows commands) NECK: JVD elevated, no thyromegaly Lymph: no lymphadenopathy HEART: regular with no S3, II/ systolic murmur at apex, mech click LUNGS: Coarse sounds ABD: soft, NT, ND, +BS : Intact Neuro: non focal SKIN: chronic changes EXT: trace edema Results/Medications Result Diagram: 06/24/18 0705 06/25/18 0602 Results 24 hrs Laboratory Tests Test 06/25/18 06:02 Prothrombin Time 25.8 H Prothrombin Time Ratio 2.0 INR International Normalized Ratio 2.35 Sodium Level 137 Potassium Level 3.4 L Chloride Level 101 Carbon Dioxide Level 30 Anion Gap 6 Blood Urea Nitrogen 28 H Creatinine 0.83 Est Glomerular Filtrat Rate mL/min > 60 Glucose Level 106 Calcium Level 8.8 Phosphorus Level 3.7 Magnesium Level 1.8 Home Meds Reported Medications Albuterol Sulfate* (Ventolin HFA*) 18 Gm Hfa.aer.ad, 2 PUFF INHALATION Q4H, #1 INHALER 05/26/18 Ergocalciferol (Vitamin D2) (VITAMIN D2) 50,000 Unit Capsule, 35825 UNIT PO [id number], CAP 05/23/18 Warfarin Sodium* (Coumadin*) 5 Mg Tablet, 5 MG PO Q TUES,THUR,SAT, TAB 05/23/18 Warfarin Sodium* (Coumadin*) 4 Mg Tablet, 4 MG PO Q MON,WED,FRI,SUN, TAB 05/23/18 Furosemide* (Furosemide*) 20 Mg Tablet, 20 MG PO DAILY, #60 TAB TAKE Q 2 DAYS 05/23/18 Simvastatin* (Zocor*) 20 Mg Tablet, 20 MG PO QHS, #30 TAB 05/23/18 Ranitidine Hcl* (Ranitidine Hcl*) 150 Mg Tablet, 150 MG PO HS, #30 TAB 05/23/18 Acetaminophen (Mapap) 500 Mg Capsule, 500 MG PO BID PRN for PAIN, CAP 05/23/18 Levothyroxine Sodium* (Levothyroxine Sodium*) 50 Mcg Tablet, 50 MCG PO BEFORE BREAKFAST, #30 TAB 05/23/18 Spironolactone* (Aldactone*) 25 Mg Tablet, 25 MG PO DAILY, #30 TAB 05/23/18 Beclomethasone Dipropionate (Qvar Redihaler (40 MCG)) 10.6 Gm Hfa.aeroba, 10.6 GM IH DAILY, INH 05/23/18 Amlodipine Besylate* (Norvasc*) 5 Mg Tablet, 5 MG PO BID, TAB 05/23/18 Losartan-Hydrochlorothiazide (Losartan-HCTZ) 100-25 Mg Tab, 1 TAB PO DAILY, TAB 05/23/18 Medications Current Medications Acetaminophen (Tylenol Tab) 650 mg Q4H PRN PO FEVER GREATER THAN 100.6 Last administered on 06/11/18at 01:38; Admin Dose 650 MG; Start 05/27/18 at 11:30 Al Hydrox/Mg Hydrox/Simethicone (Mag-Al Plus) 30 ml Q4H PRN PO GASTROINTESTINAL UPSET; Start 05/27/18 at 11:30 Ondansetron HCl (Zofran Inj) 4 mg Q4H PRN IV NAUSEA AND/OR VOMITING Last administered on 06/06/18at 06:05; Admin Dose 4 MG; Start 05/27/18 at 11:30 Levothyroxine Sodium (Synthroid) 50 mcg BEFORE BREAKFAST PO Last administered on 06/25/18 06:03; Admin Dose 50 MCG; Start 05/30/18 at 07:00 Mometasone Furoate (Asmanex) 1 puff DAILY INH Last administered on 06/25/18at 09:22; Admin Dose 1 PUFF; Start 05/29/18 at 11:00 Atorvastatin Calcium (Lipitor) 10 mg DAILY@21 PO Last administered on 06/24/18 20:35; Admin Dose 10 MG; Start 05/29/18 at 21:00 Latanoprost (Xalatan) 1 drop HS BOTH EYES Last administered on 06/24/18 20:37; Admin Dose 1 DROP; Start 06/01/18 at 21:00 Amlodipine Besylate (Norvasc) 5 mg DAILY PO ; Start 06/03/18 at 09:00; Status Hold Pantoprazole (Protonix Tab) 40 mg DAILY@06 PO Last administered on 06/25/18 06:03; Admin Dose 40 MG; Start 06/05/18 at 06:00 Metoclopramide HCl (Reglan) 5 mg TID PRN IV Nausea; Start 06/06/18 at 11:00 Polyethylene Glycol (Miralax) 17 gm BID PRN PO CONSTIPATION; Start 06/06/18 at 14:00 Bisacodyl (Dulcolax Supp) 10 mg DAILY PRN [place] CONSTIPATION; Start 06/06/18 at 14:00 IV Flush (NS 10 ml) 10 ml PRN PRN IV IV PROTOCOL; Start 06/06/18 at 16:00 Nystatin (Nystatin Susp) 5 ml QID PO Last administered on 06/25/18at 13:18; Admin Dose 5 ML; Start 06/06/18 at 17:00 Metoprolol Tartrate (Lopressor) 25 mg BID PO Last administered on 06/25/18at 09:23; Admin Dose 25 MG; Start 06/13/18 at 21:00 Metoprolol Tartrate (Lopressor) 5 mg Q4H PRN IV HR>110 Hold SBP<100; Start 06/13/18 at 10:30 Morphine Sulfate (morphine) 6 mg Q2H PRN PO FOR NON CARDIAC PAIN (4-10); Start 06/13/18 at 11:30 Docusate Sodium (Colace) 100 mg DAILY PRN PO CONSTIPATION; Start 06/21/18 at 12:00 Warfarin Sodium (Coumadin) 5 mg DAILY@17 PO Last administered on 06/24/18at 18:00; Admin Dose 5 MG; Start 06/21/18 at 17:00 Miscellaneous Information (Pending Santyl Order For Wound Care) This patient gomes... PRN PRN XX WOUND CARE; Start 06/21/18 at 16:00 Amiodarone HCl (Cordarone) 200 mg BID PO Last administered on 06/25/18at 09:23; Admin Dose 200 MG; Start 06/22/18 at 21:00 Bumetanide (Bumex) 1 mg DAILY@0600 PO Last administered on 06/25/18at 06:03; Admin Dose 1 MG; Start 06/25/18 at 06:00 Assessment/Plan Hospital Course (Demo Recall) 1.cad s/p LHC with no sig obstructive cad - on med rx now - treated - no CP now 2.HTN - treated - well Rx - well controlled 3.RP Bleed s/p transfusions now stable and tolerating heparin/coumadin loading. Then had recurrent bled overnight now s/p covered stent to VALUE ANALYSIS COORDINATOR/Ext iliac. INR 2.35 - better now -beginning to ambulate. 4.HL 5.MVR-mechanical - stable by exam - soft click by exam - stable Stable by exam. 6.anemia- s/p repair of R VALUE ANALYSIS COORDINATOR/illiac. Now stabilizing 7.Hypothyroid 8. GOMES-negative Head CT 9. Fevers-with positive ua - now resolved. CECILIA MOCTEZUMA MD Jun 25, 2018 13:38
--- NOTE | 2018-06-25 17:08 | PN ---
Date/Time of Note Date/Time of Note DATE: 06/25/18 TIME: 17:06 Assessment/Plan VTE Prophylaxis Risk score (from Ns)>0 risk: 5 SCD applied (from Ns): Yes SCD contraindicated: other Pharmacological prophylaxis: other Pharm contraindication: other Lines/Catheters IV [facility] Type ([facility] PICC Line Central line still needed: Yes Urinary Cath still in place: No Assessment/Plan Assessment/Plan -Hypokalemia- replace K, am BMP -Nose/oropharyngeal bleed on 06/11/2018, stopped after heparin was held. -Recent retroperitoneal bleed secondary to vascular injury status post stent placement. Monitor H and H. S/p eval by Dr. Kilpatrick, vascular surgery consultation. -Leukocytosis, resolved. Dr. Castellanos is following in infection disease consultation. Patient is off antibiotics. -Status post left heart catheterization with no significant obstructive coronary artery disease by Dr. Moreno on 05/27/2018. -Anemia of acute blood loss, status post blood transfusion, continue to monitor hemoglobin and hematocrit. -Acute illness myopathy -Status post mitral valve replacement with mechanical valve in 1999 in [facility]. Continue Coumadin, monitor PT/INR. -HTN, continue metoprolol -Hyperlipidemia -Hypothyroidism, continue levothyroxine -History of asthma Further recommendations based on clinical course. Plan of care discussed with Dr. Painter. Result Diagram: 06/24/18 0705 06/25/18 0602 Results 24hrs Laboratory Tests Test 06/25/18 06:02 Prothrombin Time 25.8 H Prothrombin Time Ratio 2.0 INR International Normalized Ratio 2.35 Sodium Level 137 Potassium Level 3.4 L Chloride Level 101 Carbon Dioxide Level 30 Anion Gap 6 Blood Urea Nitrogen 28 H Creatinine 0.83 Est Glomerular Filtrat Rate mL/min > 60 Glucose Level 106 Calcium Level 8.8 Phosphorus Level 3.7 Magnesium Level 1.8 Subjective 24 Hr Interval Summary Free Text/Dictation - nad - denies any chest pain - afebrile - seems comfortable - no new evets reported last night per staff Constitutional: requiring IVF, requiring O2, other (general weakness) Eyes: no complaints ENT: no complaints Respiratory: no complaints Cardiovascular: no complaints Gastrointestinal: no complaints Genitourinary: no complaints Musculoskeletal: no complaints Skin: no complaints Neurologic: no complaints Endocrine: no complaints Lymphatic: no complaints Psychological: nl mood/affect Immunologic: no complaints Exam/Review of Systems Exam Vitals Vital Signs Date Temp Pulse Resp B/P (MAP) Pulse Ox O2 O2 Flow FiO2 Time Delivery Rate 06/25/18 85 16:00 06/25/18 97.7 20 118/55 96 Room Air 15:14 (76) Intake and Output 06/24/18 06/24/18 06/25/18 1515:00 23:00 07:00 IntakeIntake Total 1600 ml 500 ml OutputOutput Total 900 ml BalanceBalance 1600 ml -400 ml Constitutional: alert, well developed Psych: nl mood/affect Head: atraumatic Eyes: EOMI, nl lids, nl sclera ENMT: nl external ears & nose Neck: non-tender Respiratory: clear to auscultation Cardiovascular: nl pulses, other (s1s2) Gastrointestinal: soft, non-tender Musculoskeletal: nl extremities to inspection Extremities: normal pulses Neurological: nl speech, other (alert/responsive) Lymph: nontender Results Results 24hrs Laboratory Tests Test 06/25/18 06:02 Prothrombin Time 25.8 H Prothrombin Time Ratio 2.0 INR International Normalized Ratio 2.35 Sodium Level 137 Potassium Level 3.4 L Chloride Level 101 Carbon Dioxide Level 30 Anion Gap 6 Blood Urea Nitrogen 28 H Creatinine 0.83 Est Glomerular Filtrat Rate mL/min > 60 Glucose Level 106 Calcium Level 8.8 Phosphorus Level 3.7 Magnesium Level 1.8 Medications Medication Current Medications Acetaminophen (Tylenol Tab) 650 mg Q4H PRN PO FEVER GREATER THAN 100.6 Last administered on 06/11/18at 01:38; Admin Dose 650 MG; Start 05/27/18 at 11:30 Al Hydrox/Mg Hydrox/Simethicone (Mag-Al Plus) 30 ml Q4H PRN PO GASTROINTESTINAL UPSET; Start 05/27/18 at 11:30 Ondansetron HCl (Zofran Inj) 4 mg Q4H PRN IV NAUSEA AND/OR VOMITING Last administered on 06/06/18at 06:05; Admin Dose 4 MG; Start 05/27/18 at 11:30 Levothyroxine Sodium (Synthroid) 50 mcg BEFORE BREAKFAST PO Last administered on 06/25/18at 06:03; Admin Dose 50 MCG; Start 05/30/18 at 07:00 Mometasone Furoate (Asmanex) 1 puff DAILY INH Last administered on 06/25/18at 0 9:22; Admin Dose 1 PUFF; Start 05/29/18 at 11:00 Atorvastatin Calcium (Lipitor) 10 mg DAILY@21 PO Last administered on 06/24/18at 20:35; Admin Dose 10 MG; Start 05/29/18 at 21:00 Latanoprost (Xalatan) 1 drop HS BOTH EYES Last administered on 06/24/18 20:37; Admin Dose 1 DROP; Start 06/01/18 at 21:00 Amlodipine Besylate (Norvasc) 5 mg DAILY PO ; Start 06/03/18 at 09:00; Status Hold Pantoprazole (Protonix Tab) 40 mg DAILY@06 PO Last administered on 06/25/18at 06:03; Admin Dose 40 MG; Start 06/05/18 at 06:00 Metoclopramide HCl (Reglan) 5 mg TID PRN IV Nausea; Start 06/06/18 at 11:00 Polyethylene Glycol (Miralax) 17 gm BID PRN PO CONSTIPATION; Start 06/06/18 at 14:00 Bisacodyl (Dulcolax Supp) 10 mg DAILY PRN [place] CONSTIPATION; Start 06/06/18 at 14:00 IV Flush (NS 10 ml) 10 ml PRN PRN IV IV PROTOCOL; Start 06/06/18 at 16:00 Nystatin (Nystatin Susp) 5 ml QID PO Last administered on 06/25/18at 13:18; Admin Dose 5 ML; Start 06/06/18 at 17:00 Metoprolol Tartrate (Lopressor) 25 mg BID PO Last administered on 06/25/18at 09:23; Admin Dose 25 MG; Start 06/13/18 at 21:00 Metoprolol Tartrate (Lopressor) 5 mg Q4H PRN IV HR>110 Hold SBP<100; Start 06/13/18 at 10:30 Morphine Sulfate (morphine) 6 mg Q2H PRN PO FOR NON CARDIAC PAIN (4-10); Start 06/13/18 at 11:30 Docusate Sodium (Colace) 100 mg DAILY PRN PO CONSTIPATION; Start 06/21/18 at 12:00 Warfarin Sodium (Coumadin) 5 mg DAILY@17 PO Last administered on 06/24/18at 18:00; Admin Dose 5 MG; Start 06/21/18 at 17:00 Miscellaneous Information (Pending Santyl Order For Wound Care) This patient gomes... PRN PRN XX WOUND CARE; Start 06/21/18 at 16:00 Amiodarone HCl (Cordarone) 200 mg BID PO Last administered on 06/25/18at 09:23; Admin Dose 200 MG; Start 06/22/18 at 21:00 Bumetanide (Bumex) 1 mg DAILY@0600 PO Last administered on 06/25/18at 06:03; Admin Dose 1 MG; Start 06/25/18 at 06:00 DELICIA MATUTE Jun 25, 2018 17:08
[2018-06-25] MEDS: WARFARIN 5 MG TAB PO SCH (17:46)
[2018-06-25] MEDS: ATORVASTATIN 10 MG TAB PO SCH (21:30)
[2018-06-25] MEDS: LATANOPROST 0.005% 2.5 ML OPH BOTH EYES SCH (21:36)
--- NOTE | 2018-06-25 21:53 | CONS ---
Assessment/Plan Assessment/Plan Hospital Course (Demo Recall) - S/p severe sepsis due to UTI, improved - S/p SIRS due to acute blood loss, improved - S/p nasopharyngeal bleed on 06/11/2018, resolved - s/p UTI due to E. coli, resolved. 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, s/p covered stent placement 6 x 100 mm right common femoral artery and right external iliac artery, abdominal aortogram, catheter introduction to the abdominal aorta, JOSÉ MIGUEL guidance into the central artery 06/02/2018 - s/p retroperitoneal bleed - s/p acute anemia requiring PRBC - s/p CT guided placement of drainage catheter into pelvic hematoma 06/05/2018-->removed on 06/09/2018 - FORREST, improved - s/p L heart catheterization on 05/27/2018 showing no significant obstructive CAD - CAD s/p CABG in in 1982 - H/o MVR with mechanical valve, in 1999 - cholelithiasis without e/o acute cholecystitis - Hypertension - Hyperlipidemia - Hypothyroidism - asthma - s/p FOURNIER, resolved. CT head shows no acute findings - venous JOSÉ MIGUEL of b/l LE was negative for DVT Recommendations: - Continue to monitor Pt off systemic antibiotic. - ARU eval in progress Management discussed with Dr. Hughes Consultation Date/Type/Reason Admit Date/Time May 28, 2018 at 17:52 Initial Consult Date 06/02/18 Type of Consult Infectious Disease Requesting Provider: JULY VALENTIN MD Date/Time of Note DATE: 06/25/18 TIME: 21:52 24 HR Interval Summary Free Text/Dictation Chart reviewed. ARU eval in progress. Constitutional: no complaints (sleeping) Exam/Review of Systems Exam Vitals Vital Signs Date Temp Pulse Resp B/P (MAP) Pulse Ox O2 O2 Flow FiO2 Time Delivery Rate 06/25/18 78 20:23 06/25/18 98.3 19 126/58 93 20:16 (80) 06/25/18 Room Air 15:14 Intake and Output 06/24/18 06/24/18 06/25/18 1414:59 22:59 06:59 IntakeIntake Total 1600 ml 500 ml OutputOutput Total 900 ml BalanceBalance 1600 ml -400 ml Exam Constitutional: well developed, other (sleeping) Psych: other (unable to assess) Head: normocephalic, atraumatic Eyes: nl lids ENMT: nl external ears & nose, nl nasal mucosa & septum Neck: other (not swollen) Respiratory: clear to auscultation, normal air movement (on room air) Cardiovascular: regular rate and rhythm, nl pulses Gastrointestinal: other (deferred as pt is asleep) Genitourinary - Female: other (no [place]) Musculoskeletal: nl extremities to inspection Extremities: normal pulses, edema (BLE), pitting pedal edema Neurological: other (deferred as pt is asleep) Skin: nl turgor, ecchymosis (scattered); No rash or lesions Results Result Diagram: 06/24/18 0705 06/25/18 0602 Results 24hrs Laboratory Tests Test 06/25/18 06:02 Prothrombin Time 25.8 H Prothrombin Time Ratio 2.0 INR International Normalized Ratio 2.35 Sodium Level 137 Potassium Level 3.4 L Chloride Level 101 Carbon Dioxide Level 30 Anion Gap 6 Blood Urea Nitrogen 28 H Creatinine 0.83 Est Glomerular Filtrat Rate mL/min > 60 Glucose Level 106 Calcium Level 8.8 Phosphorus Level 3.7 Magnesium Level 1.8 Imaging Imaging CXR 06/24/2018: Cardiomegaly with mild decrease in pulmonary edema. Stable small bilateral pleural effusions. Medications Medication Current Medications Acetaminophen (Tylenol Tab) 650 mg Q4H PRN PO FEVER GREATER THAN 100.6 Last administered on 06/11/18at 01:38; Admin Dose 650 MG; Start 05/27/18 at 11:30 Al Hydrox/Mg Hydrox/Simethicone (Mag-Al Plus) 30 ml Q4H PRN PO GASTROINTESTINAL UPSET; Start 05/27/18 at 11:30 Ondansetron HCl (Zofran Inj) 4 mg Q4H PRN IV NAUSEA AND/OR VOMITING Last administered on 06/06/18at 06:05; Admin Dose 4 MG; Start 05/27/18 at 11:30 Levothyroxine Sodium (Synthroid) 50 mcg BEFORE BREAKFAST PO Last administered on 06/25/18at 06:03; Admin Dose 50 MCG; Start 05/30/18 at 07:00 Mometasone Furoate (Asmanex) 1 puff DAILY INH Last administered on 06/25/18at 09:22; Admin Dose 1 PUFF; Start 05/29/18 at 11:00 Atorvastatin Calcium (Lipitor) 10 mg DAILY@21 PO Last administered on 06/25/18at 21:30; Admin Dose 10 MG; Start 05/29/18 at 21:00 Latanoprost (Xalatan) 1 drop HS BOTH EYES Last administered on 06/25/18at 21:36; Admin Dose 1 DROP; Start 06/01/18 at 21:00 Amlodipine Besylate (Norvasc) 5 mg DAILY PO ; Start 06/03/18 at 09:00; Status Hold Pantoprazole (Protonix Tab) 40 mg DAILY@06 PO Last administered on 06/25/18at 06:03; Admin Dose 40 MG; Start 06/05/18 at 06:00 Metoclopramide HCl (Reglan) 5 mg TID PRN IV Nausea; Start 06/06/18 at 11:00 Polyethylene Glycol (Miralax) 17 gm BID PRN PO CONSTIPATION; Start 06/06/18 at 14:00 Bisacodyl (Dulcolax Supp) 10 mg DAILY PRN [place] CONSTIPATION; Start 06/06/18 at 14:00 IV Flush (NS 10 ml) 10 ml PRN PRN IV IV PROTOCOL; Start 06/06/18 at 16:00 Nystatin (Nystatin Susp) 5 ml QID PO Last administered on 06/25/18at 21:30; Admin Dose 5 ML; Start 06/06/18 at 17:00 Metoprolol Tartrate (Lopressor) 25 mg BID PO Last administered on 06/25/18at 21:31; Admin Dose 25 MG; Start 06/13/18 at 21:00 Metoprolol Tartrate (Lopressor) 5 mg Q4H PRN IV HR>110 Hold SBP<100; Start 06/13/18 at 10:30 Morphine Sulfate (morphine) 6 mg Q2H PRN PO FOR NON CARDIAC PAIN (4-10); Start 06/13/18 at 11:30 Docusate Sodium (Colace) 100 mg DAILY PRN PO CONSTIPATION; Start 06/21/18 at 12:00 Warfarin Sodium (Coumadin) 5 mg DAILY@17 PO Last administered on 06/25/18at 17:46; Admin Dose 5 MG; Start 06/21/18 at 17:00 Miscellaneous Information (Pending Santyl Order For Wound Care) This patient fournier... PRN PRN XX WOUND CARE; Start 06/21/18 at 16:00 Amiodarone HCl (Cordarone) 200 mg BID PO Last administered on 06/25/18at 21:30; Admin Dose 200 MG; Start 06/22/18 at 21:00 Bumetanide (Bumex) 1 mg DAILY@0600 PO Last administered on 06/25/18at 06:03; Admin Dose 1 MG; Start 06/25/18 at 06:00 KISHORE JARAMILLO NP Jun 25, 2018 21:53
[2018-06-26] VITALS (13 sets, daily range): BP systolic 108–140; BP diastolic 56–68; PULSE 73–101; RESP 19–20
[2018-06-26] MEDS: LEVOTHYROXINE 50 MCG TAB PO SCH (06:40)
[2018-06-26] MEDS: PANTOPRAZOLE (EC) 40 MG TAB PO SCH (06:40)
[2018-06-26] MEDS: BUMETANIDE 1 MG TAB PO SCH (06:42)
[2018-06-26] MEDS: MOMETASONE 0.24 GM INHALER INH SCH (08:52)
[2018-06-26] MEDS: METOPROLOL 25 MG TAB PO SCH ×2 (08:53→20:40)
[2018-06-26] MEDS: NYSTATIN SUSP 5 ML CUP PO SCH ×4 (08:53→20:40)
[2018-06-26] MEDS: AMIODARONE 200 MG TAB PO SCH ×2 (08:54→20:41)
--- NOTE | 2018-06-26 10:36 | CONS ---
Consult Date/Type/Reason Admit Date/Time May 28, 2018 at 17:52 Initial Consult Date Type of Consultation: Urology Requesting Provider: JULY VALENTIN MD Date/Time of Note DATE: 06/26/18 TIME: 10:34 Subjective NO acute change - pt was able to ambulate day prior - had R LE pain - con't PT. On therapy now. INR better. ROS: No fever, no chills, no nausea, no vomiting, no diarrhea/constipation No recent weight changes No chest pain, no PND, no orthopnea + Leg pain with ambulation, fatigue No dizziness, blurred vision No thirst, no heat or cold intolerance Objective Vitals Vital Signs Date Temp Pulse Resp B/P (MAP) Pulse Ox O2 O2 Flow FiO2 Time Delivery Rate 06/26/18 84 08:24 06/26/18 98.2 20 140/65 98 07:37 (90) 06/25/18 Room Air 15:14 Intake and Output 06/25/18 06/25/18 06/26/18 1515:00 23:00 07:00 IntakeIntake Total 1600 ml 400 ml BalanceBalance 1600 ml 400 ml Exam General: WN/WD/NAD, AOx 3 HEENT: Unicetric/atraumatic/EOMI (follows commands) NECK: JVD elevated, no thyromegaly Lymph: no lymphadenopathy HEART: regular with no S3, II/ systolic murmur at apex, mech click, mid- sternal scar LUNGS: Coarse sounds ABD: soft, NT, ND, +BS : Intact Neuro: non focal SKIN: chronic changes EXT: trace edema Results/Medications Result Diagram: 06/24/18 0705 06/25/18 0602 Home Meds Reported Medications Albuterol Sulfate* (Ventolin HFA*) 18 Gm Hfa.aer.ad, 2 PUFF INHALATION Q4H, #1 INHALER 05/26/18 Ergocalciferol (Vitamin D2) (VITAMIN D2) 50,000 Unit Capsule, 92668 UNIT PO [id number], CAP 05/23/18 Warfarin Sodium* (Coumadin*) 5 Mg Tablet, 5 MG PO Q TUES,THUR,SAT, TAB 05/23/18 Warfarin Sodium* (Coumadin*) 4 Mg Tablet, 4 MG PO Q MON,WED,FRI,SUN, TAB 05/23/18 Furosemide* (Furosemide*) 20 Mg Tablet, 20 MG PO DAILY, #60 TAB TAKE Q 2 DAYS 05/23/18 Simvastatin* (Zocor*) 20 Mg Tablet, 20 MG PO QHS, #30 TAB 05/23/18 Ranitidine Hcl* (Ranitidine Hcl*) 150 Mg Tablet, 150 MG PO HS, #30 TAB 05/23/18 Acetaminophen (Mapap) 500 Mg Capsule, 500 MG PO BID PRN for PAIN, CAP 05/23/18 Levothyroxine Sodium* (Levothyroxine Sodium*) 50 Mcg Tablet, 50 MCG PO BEFORE BREAKFAST, #30 TAB 05/23/18 Spironolactone* (Aldactone*) 25 Mg Tablet, 25 MG PO DAILY, #30 TAB 05/23/18 Beclomethasone Dipropionate (Qvar Redihaler (40 MCG)) 10.6 Gm Hfa.aeroba, 10.6 GM IH DAILY, INH 05/23/18 Amlodipine Besylate* (Norvasc*) 5 Mg Tablet, 5 MG PO BID, TAB 05/23/18 Losartan-Hydrochlorothiazide (Losartan-HCTZ) 100-25 Mg Tab, 1 TAB PO DAILY, TAB 05/23/18 Medications Current Medications Acetaminophen (Tylenol Tab) 650 mg Q4H PRN PO FEVER GREATER THAN 100.6 Last administered on 06/11/18at 01:38; Admin Dose 650 MG; Start 05/27/18 at 11:30 Al Hydrox/Mg Hydrox/Simethicone (Mag-Al Plus) 30 ml Q4H PRN PO GASTROINTESTINAL UPSET; Start 05/27/18 at 11:30 Ondansetron HCl (Zofran Inj) 4 mg Q4H PRN IV NAUSEA AND/OR VOMITING Last administered on 06/06/18at 06:05; Admin Dose 4 MG; Start 05/27/18 at 11:30 Levothyroxine Sodium (Synthroid) 50 mcg BEFORE BREAKFAST PO Last administered on 06/26/18at 06:40; Admin Dose 50 MCG; Start 05/30/18 at 07:00 Mometasone Furoate (Asmanex) 1 puff DAILY INH Last administered on 06/26/18at 08:52; Admin Dose 1 PUFF; Start 05/29/18 at 11:00 Atorvastatin Calcium (Lipitor) 10 mg DAILY@21 PO Last administered on 06/25/18at 21:30; Admin Dose 10 MG; Start 05/29/18 at 21:00 Latanoprost (Xalatan) 1 drop HS BOTH EYES Last administered on 06/25/18at 21:36; Admin Dose 1 DROP; Start 06/01/18 at 21:00 Amlodipine Besylate (Norvasc) 5 mg DAILY PO ; Start 06/03/18 at 09:00; Status Hold Pantoprazole (Protonix Tab) 40 mg DAILY@06 PO Last administered on 06/26/18at 06:40; Admin Dose 40 MG; Start 06/05/18 at 06:00 Metoclopramide HCl (Reglan) 5 mg TID PRN IV Nausea; Start 06/06/18 at 11:00 Polyethylene Glycol (Miralax) 17 gm BID PRN PO CONSTIPATION; Start 06/06/18 at 14:00 Bisacodyl (Dulcolax Supp) 10 mg DAILY PRN [place] CONSTIPATION; Start 06/06/18 at 14:00 IV Flush (NS 10 ml) 10 ml PRN PRN IV IV PROTOCOL; Start 06/06/18 at 16:00 Nystatin (Nystatin Susp) 5 ml QID PO Last administered on 06/26/18at 08:53; Admin Dose 5 ML; Start 06/06/18 at 17:00 Metoprolol Tartrate (Lopressor) 25 mg BID PO Last administered on 06/26/18at 08:53; Admin Dose 25 MG; Start 06/13/18 at 21:00 Metoprolol Tartrate (Lopressor) 5 mg Q4H PRN IV HR>110 Hold SBP<100; Start 06/13/18 at 10:30 Morphine Sulfate (morphine) 6 mg Q2H PRN PO FOR NON CARDIAC PAIN (4-10); Start 06/13/18 at 11:30 Docusate Sodium (Colace) 100 mg DAILY PRN PO CONSTIPATION; Start 06/21/18 at 12:00 Warfarin Sodium (Coumadin) 5 mg DAILY@17 PO Last administered on 06/25/18at 17:46; Admin Dose 5 MG; Start 06/21/18 at 17:00 Miscellaneous Information (Pending [facility] Order For Wound Care) This patient gomes... PRN PRN XX WOUND CARE; Start 06/21/18 at 16:00 Amiodarone HCl (Cordarone) 200 mg BID PO Last administered on 06/26/18at 08:54; Admin Dose 200 MG; Start 06/22/18 at 21:00 Bumetanide (Bumex) 1 mg DAILY@0600 PO Last administered on 06/26/18at 06:42; Admin Dose 1 MG; Start 06/25/18 at 06:00 Assessment/Plan Hospital Course (Demo Recall) 1.cad s/p LHC with no sig obstructive cad - on med rx now - treated - no CP now - stable 2.HTN - treated - well Rx - well controlled - controlled 3.RP Bleed s/p transfusions now stable and tolerating heparin/coumadin loading. Then had recurrent bled overnight now s/p covered stent to WELDER GUN/Ext iliac. INR 2.35 - better now -beginning to ambulate. H/H stable at 8.5 - increased ambulation. 4.HL 5.MVR-mechanical - stable by exam - soft click by exam - stable Stable by exam. 6.anemia- s/p repair of R WELDER GUN/illiac. Now stabilizing 7.Hypothyroid 8. GOMES-negative Head CT 9. Fevers-with positive ua - now resolved. CECILIA MOCTEZUMA MD Jun 26, 2018 10:36
--- NOTE | 2018-06-26 11:21 | PN ---
Date/Time of Note Date/Time of Note DATE: 06/26/18 TIME: 11:21 Assessment/Plan VTE Prophylaxis Risk score (from Nsg)>0 risk: 6 SCD applied (from Nsg): Yes Pharmacological prophylaxis: other Lines/Catheters IV Catheter Type (from Nrsg): PICC Line Central line still needed: Yes Urinary Cath still in place: No Assessment/Plan Hospital Course renal follow up SUBJECTIVE: The patient is stable, no events overnight. d/w Dr Laughlin no fever, chills or hematuria OBJECTIVE: HEENT: Head is normocephalic. NECK: Supple. HEART: Regular rate. LUNGS: Show diminished breath sounds at the base. ABDOMEN: Soft, nontender to palpation without rebound or guarding. EXTREMITIES: Negative for clubbing, cyanosis, no edema. DERMATOLOGIC: No rashes. MUSCULOSKELETAL: No joint effusion. NEUROLOGIC: No change in exam. MEDICATIONS: Reviewed. LABORATORY DATA: Shows sodium 134, potassium 3.5, BUN 25, creatinine 0.80. White count is 5.2, hemoglobin 8.5, platelet count is 206. ASSESSMENT AND PLAN: 1. Nonoliguric acute kidney injury with previously normal baseline creatinine of 0.6 mg/dL. Etiology is secondary to acute tubular necrosis. Renal function is improved. Continue to monitor. 2. Volume overload, improving. Will deescalate Bumex to once daily. will replete K 3. Hypernatremia, improved. 4. Hypomagnesemia. Continue to monitor and replete as needed. 5. Anemia. Monitor hemoglobin and hematocrit levels. 6. Coronary artery disease. Continue medical management. 7. Mechanical heart valve. Continue anticoagulation therapy. 8. Sepsis secondary to urinary tract infection. The patient has completed antibiotic course. 9. Hypothyroidism. Continue Synthroid. 10. Dyslipidemia. Continue statin therapy. 11. Hypertension. Continue current blood pressure regimen. 12. Intraabdominal hematoma. The patient is clinically improving. 13. Epistaxis, resolved. Result Diagram: 06/24/18 0705 06/25/18 0602 Exam/Review of Systems Exam Vitals Vital Signs Date Temp Pulse Resp B/P (MAP) Pulse Ox O2 O2 Flow FiO2 Time Delivery Rate 06/26/18 84 08:24 06/26/18 98.2 20 140/65 98 07:37 (90) 06/25/18 Room Air 15:14 Intake and Output 06/25/18 06/25/18 06/26/18 1515:00 23:00 07:00 IntakeIntake Total 1600 ml 400 ml BalanceBalance 1600 ml 400 ml Medications Medication Current Medications Acetaminophen (Tylenol Tab) 650 mg Q4H PRN PO FEVER GREATER THAN 100.6 Last ad ministered on 06/11/18 01:38; Admin Dose 650 MG; Start 05/27/18 at 11:30 Al Hydrox/Mg Hydrox/Simethicone (Mag-Al Plus) 30 ml Q4H PRN PO GASTROINTESTINAL UPSET; Start 05/27/18 at 11:30 Ondansetron HCl (Zofran Inj) 4 mg Q4H PRN IV NAUSEA AND/OR VOMITING Last administered on 06/06/18 06:05; Admin Dose 4 MG; Start 05/27/18 at 11:30 Levothyroxine Sodium (Synthroid) 50 mcg BEFORE BREAKFAST PO Last administered on 06/26/18 06:40; Admin Dose 50 MCG; Start 05/30/18 at 07:00 Mometasone Furoate (Asmanex) 1 puff DAILY INH Last administered on 06/26/18 08:52; Admin Dose 1 PUFF; Start 05/29/18 at 11:00 Atorvastatin Calcium (Lipitor) 10 mg DAILY@21 PO Last administered on 06/25/18at 21:30; Admin Dose 10 MG; Start 05/29/18 at 21:00 Latanoprost (Xalatan) 1 drop HS BOTH EYES Last administered on 06/25/18at 21:36; Admin Dose 1 DROP; Start 06/01/18 at 21:00 Amlodipine Besylate (Norvasc) 5 mg DAILY PO ; Start 06/03/18 at 09:00; Status Hold Pantoprazole (Protonix Tab) 40 mg DAILY@06 PO Last administered on 06/26/18 06:40; Admin Dose 40 MG; Start 06/05/18 at 06:00 Metoclopramide HCl (Reglan) 5 mg TID PRN IV Nausea; Start 06/06/18 at 11:00 Polyethylene Glycol (Miralax) 17 gm BID PRN PO CONSTIPATION; Start 06/06/18 at 14:00 Bisacodyl (Dulcolax Supp) 10 mg DAILY PRN [place] CONSTIPATION; Start 06/06/18 at 14:00 IV Flush (NS 10 ml) 10 ml PRN PRN IV IV PROTOCOL; Start 06/06/18 at 16:00 Nystatin (Nystatin Susp) 5 ml QID PO Last administered on 06/26/18at 08:53; Admin Dose 5 ML; Start 06/06/18 at 17:00 Metoprolol Tartrate (Lopressor) 25 mg BID PO Last administered on 06/26/18at 08:53; Admin Dose 25 MG; Start 06/13/18 at 21:00 Metoprolol Tartrate (Lopressor) 5 mg Q4H PRN IV HR>110 Hold SBP<100; Start 06/13/18 at 10:30 Morphine Sulfate (morphine) 6 mg Q2H PRN PO FOR NON CARDIAC PAIN (4-10); Start 06/13/18 at 11:30 Docusate Sodium (Colace) 100 mg DAILY PRN PO CONSTIPATION; Start 06/21/18 at 12:00 Warfarin Sodium (Coumadin) 5 mg DAILY@17 PO Last administered on 06/25/18at 17:46; Admin Dose 5 MG; Start 06/21/18 at 17:00 Miscellaneous Information (Pending [facility] Order For Wound Care) This patient gomes... PRN PRN XX WOUND CARE; Start 06/21/18 at 16:00 Amiodarone HCl (Cordarone) 200 mg BID PO Last administered on 06/26/18at 08:54; Admin Dose 200 MG; Start 06/22/18 at 21:00 Bumetanide (Bumex) 1 mg DAILY@0600 PO Last administered on 06/26/18at 06:42; Admin Dose 1 MG; Start 06/25/18 at 06:00 NURIA BAUTISTA DO Jun 26, 2018 11:21
--- NOTE | 2018-06-26 14:54 | CONS ---
Consult Date/Type/Reason Admit Date/Time May 28, 2018 at 17:52 Initial Consult Date 06/03/18 Type of Consultation: Urology Reason for Consultation Suprapubic hematoma and urinary frequency and incontinence Requesting Provider: JULY VALENTIN MD Date/Time of Note DATE: 06/26/18 TIME: 14:50 Subjective The patient is feeling much better, she continues to have urinary frequency and voids in the bed. It appears that her refused bedside commode for her. Objective Vitals Vital Signs Date Temp Pulse Resp B/P (MAP) Pulse Ox O2 O2 Flow FiO2 Time Delivery Rate 06/26/18 73 12:26 06/26/18 98.6 20 115/56 98 11:38 (75) 06/25/18 Room Air 15:14 Intake and Output 06/25/18 06/25/18 06/26/18 1515:00 23:00 07:00 IntakeIntake Total 1600 ml 400 ml BalanceBalance 1600 ml 400 ml Exam Abdomen is soft, she still however has suprapubic fullness from the hematoma. Results/Medications Result Diagram: 06/24/18 0705 06/25/18 0602 Home Meds Reported Medications Albuterol Sulfate* (Ventolin HFA*) 18 Gm Hfa.aer.ad, 2 PUFF INHALATION Q4H, #1 INHALER 05/26/18 Ergocalciferol (Vitamin D2) (VITAMIN D2) 50,000 Unit Capsule, 24364 UNIT PO [id number], CAP 05/23/18 Warfarin Sodium* (Coumadin*) 5 Mg Tablet, 5 MG PO Q TU,THUR,SAT, TAB 05/23/18 Warfarin Sodium* (Coumadin*) 4 Mg Tablet, 4 MG PO Q MON,WED,FRI,SUN, TAB 05/23/18 Furosemide* (Furosemide*) 20 Mg Tablet, 20 MG PO DAILY, #60 TAB TAKE Q 2 DAYS 05/23/18 Simvastatin* (Zocor*) 20 Mg Tablet, 20 MG PO QHS, #30 TAB 05/23/18 Ranitidine Hcl* (Ranitidine Hcl*) 150 Mg Tablet, 150 MG PO HS, #30 TAB 05/23/18 Acetaminophen (Mapap) 500 Mg Capsule, 500 MG PO BID PRN for PAIN, CAP 05/23/18 Levothyroxine Sodium* (Levothyroxine Sodium*) 50 Mcg Tablet, 50 MCG PO BEFORE BREAKFAST, #30 TAB 05/23/18 Spironolactone* (Aldactone*) 25 Mg Tablet, 25 MG PO DAILY, #30 TAB 05/23/18 Beclomethasone Dipropionate (Qvar Redihaler (40 MCG)) 10.6 Gm Hfa.aeroba, 10.6 GM IH DAILY, INH 05/23/18 Amlodipine Besylate* (Norvasc*) 5 Mg Tablet, 5 MG PO BID, TAB 05/23/18 Losartan-Hydrochlorothiazide (Losartan-HCTZ) 100-25 Mg Tab, 1 TAB PO DAILY, TAB 05/23/18 Medications Current Medications Acetaminophen (Tylenol Tab) 650 mg Q4H PRN PO FEVER GREATER THAN 100.6 Last administered on 06/11/18at 01:38; Admin Dose 650 MG; Start 05/27/18 at 11:30 Al Hydrox/Mg Hydrox/Simethicone (Mag-Al Plus) 30 ml Q4H PRN PO GASTROINTESTINAL UPSET; Start 05/27/18 at 11:30 Ondansetron HCl (Zofran Inj) 4 mg Q4H PRN IV NAUSEA AND/OR VOMITING Last administered on 06/06/18at 06:05; Admin Dose 4 MG; Start 05/27/18 at 11:30 Levothyroxine Sodium (Synthroid) 50 mcg BEFORE BREAKFAST PO Last administered on 06/26/18at 06:40; Admin Dose 50 MCG; Start 05/30/18 at 07:00 Mometasone Furoate (Asmanex) 1 puff DAILY INH Last administered on 06/26/18at 08:52; Admin Dose 1 PUFF; Start 05/29/18 at 11:00 Atorvastatin Calcium (Lipitor) 10 mg DAILY@21 PO Last administered on 06/25/18at 21:30; Admin Dose 10 MG; Start 05/29/18 at 21:00 Latanoprost (Xalatan) 1 drop HS BOTH EYES Last administered on 06/25/18at 21:36; Admin Dose 1 DROP; Start 06/01/18 at 21:00 Amlodipine Besylate (Norvasc) 5 mg DAILY PO ; Start 06/03/18 at 09:00; Status Hold Pantoprazole (Protonix Tab) 40 mg DAILY@06 PO Last administered on 06/26/18at 06:40; Admin Dose 40 MG; Start 06/05/18 at 06:00 Metoclopramide HCl (Reglan) 5 mg TID PRN IV Nausea; Start 06/06/18 at 11:00 Polyethylene Glycol (Miralax) 17 gm BID PRN PO CONSTIPATION; Start 06/06/18 at 14:00 Bisacodyl (Dulcolax Supp) 10 mg DAILY PRN [place] CONSTIPATION; Start 06/06/18 at 14:00 IV Flush (NS 10 ml) 10 ml PRN PRN IV IV PROTOCOL; Start 06/06/18 at 16:00 Nystatin (Nystatin Susp) 5 ml QID PO Last administered on 06/26/18at 12:31; Admin Dose 5 ML; Start 06/06/18 at 17:00 Metoprolol Tartrate (Lopressor) 25 mg BID PO Last administered on 06/26/18at 08 :53; Admin Dose 25 MG; Start 06/13/18 at 21:00 Metoprolol Tartrate (Lopressor) 5 mg Q4H PRN IV HR>110 Hold SBP<100; Start 06/13/18 at 10:30 Morphine Sulfate (morphine) 6 mg Q2H PRN PO FOR NON CARDIAC PAIN (4-10); Start 06/13/18 at 11:30 Docusate Sodium (Colace) 100 mg DAILY PRN PO CONSTIPATION; Start 06/21/18 at 12:00 Warfarin Sodium (Coumadin) 5 mg DAILY@17 PO Last administered on 06/25/18at 17:4 6; Admin Dose 5 MG; Start 06/21/18 at 17:00 Miscellaneous Information (Pending [facility] Order For Wound Care) This patient gomes... PRN PRN XX WOUND CARE; Start 06/21/18 at 16:00 Amiodarone HCl (Cordarone) 200 mg BID PO Last administered on 06/26/18at 08:54; Admin Dose 200 MG; Start 06/22/18 at 21:00 Bumetanide (Bumex) 1 mg DAILY@0600 PO Last administered on 06/26/18at 06:42; Admin Dose 1 MG; Start 06/25/18 at 06:00 Miscellaneous Information (*Order Clarification Bulletin) MEDICATION REQUIRES CLARIFICATION:PLE... Q8H XX ; Start 06/26/18 at 12:00 Assessment/Plan Hospital Course (Demo Recall) 62-year-old female underwent coronary angiogram. 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 I did insert the catheter for her and she was anuric. Since then she has improved and has been making urine and the urine is clear. The Mensah catheter has been removed and she has been voiding frequently on her own. She has been incon tinent however and using the diaper as she cannot go to the bathroom. She was checked for postvoid residual and she is not in urinary retention or overflowing. She still have pressure on the bladder from the pelvic hematoma that she has. That will gradually improve and it is improving JOAQUIN DE LEON MD Jun 26, 2018 14:53
--- NOTE | 2018-06-26 15:31 | PN ---
Date/Time of Note Date/Time of Note DATE: 06/26/18 TIME: 15:30 Assessment/Plan VTE Prophylaxis Risk score (from Ns)>0 risk: 6 SCD applied (from Ns): Yes SCD contraindicated: other Pharmacological prophylaxis: other Pharm contraindication: other Lines/Catheters IV Catheter Type (from [facility]): PICC Line Central line still needed: Yes Urinary Cath still in place: No Assessment/Plan Assessment/Plan - Hypokalemia as of yesterday- no labs available now -Nose/oropharyngeal bleed on 06/11/2018, stopped after heparin was held. -Recent retroperitoneal bleed secondary to vascular injury status post stent placement. Monitor H and H. S/p eval by Dr. Kilpatrick, vascular surgery consultation. -Leukocytosis, resolved. Dr. Castellanos is following in infection disease consultation. Patient is off antibiotics. -Status post left heart catheterization with no significant obstructive coronary artery disease by Dr. Moreno on 05/27/2018. -Anemia of acute blood loss, status post blood transfusion, continue to monitor hemoglobin and hematocrit. -Acute illness myopathy -Status post mitral valve replacement with mechanical valve in 1999 in [facility]. Continue Coumadin, monitor PT/INR. -HTN, continue metoprolol -Hyperlipidemia -Hypothyroidism, continue levothyroxine -History of asthma Further recommendations based on clinical course. Plan of care discussed with Dr. Painter. Result Diagram: 06/24/18 0705 06/25/18 0602 Subjective 24 Hr Interval Summary Constitutional: requiring O2 Eyes: no complaints ENT: no complaints Respiratory: no complaints Cardiovascular: no complaints Gastrointestinal: no complaints Genitourinary: no complaints Musculoskeletal: no complaints Skin: no complaints Neurologic: no complaints Endocrine: no complaints Exam/Review of Systems Exam Vitals Vital Signs Date Temp Pulse Resp B/P (MAP) Pulse Ox O2 O2 Flow FiO2 Time Delivery Rate 06/26/18 73 12:26 06/26/18 98.6 20 115/56 98 11:38 (75) 06/25/18 Room Air 15:14 Intake and Output 06/25/18 06/25/18 06/26/18 1515:00 23:00 07:00 IntakeIntake Total 1600 ml 400 ml BalanceBalance 1600 ml 400 ml Constitutional: alert, oriented, well developed Psych: nl mood/affect Eyes: EOMI, nl lids ENMT: nl external ears & nose Neck: non-tender Respiratory: clear to auscultation Cardiovascular: nl pulses Gastrointestinal: soft, non-tender Musculoskeletal: muscle weakness Extremities: normal pulses Neurological: nl speech Lymph: nontender Medications Medication Current Medications Acetaminophen (Tylenol Tab) 650 mg Q4H PRN PO FEVER GREATER THAN 100.6 Last administered on 06/11/18 01:38; Admin Dose 650 MG; Start 05/27/18 at 11:30 Al Hydrox/Mg Hydrox/Simethicone (Mag-Al Plus) 30 ml Q4H PRN PO GASTROINTESTINAL UPSET; Start 05/27/18 at 11:30 Ondansetron HCl (Zofran Inj) 4 mg Q4H PRN IV NAUSEA AND/OR VOMITING Last administered on 06/06/18 06:05; Admin Dose 4 MG; Start 05/27/18 at 11:30 Levothyroxine Sodium (Synthroid) 50 mcg BEFORE BREAKFAST PO Last administered on 06/26/18 06:40; Admin Dose 50 MCG; Start 05/30/18 at 07:00 Mometasone Furoate (Asmanex) 1 puff DAILY INH Last administered on 06/26/18 08:52; Admin Dose 1 PUFF; Start 05/29/18 at 11:00 Atorvastatin Calcium (Lipitor) 10 mg DAILY@21 PO Last administered on 06/25/18 21:30; Admin Dose 10 MG; Start 05/29/18 at 21:00 Latanoprost (Xalatan) 1 drop HS BOTH EYES Last administered on 06/25/18 21:36; Admin Dose 1 DROP; Start 06/01/18 at 21:00 Amlodipine Besylate (Norvasc) 5 mg DAILY PO ; Start 06/03/18 at 09:00; Status Hold Pantoprazole (Protonix Tab) 40 mg DAILY@06 PO Last administered on 06/26/18 06:40; Admin Dose 40 MG; Start 06/05/18 at 06:00 Metoclopramide HCl (Reglan) 5 mg TID PRN IV Nausea; Start 06/06/18 at 11:00 Polyethylene Glycol (Miralax) 17 gm BID PRN PO CONSTIPATION; Start 06/06/18 at 14:00 Bisacodyl (Dulcolax Supp) 10 mg DAILY PRN [place] CONSTIPATION; Start 06/06/18 at 14:00 IV Flush (NS 10 ml) 10 ml PRN PRN IV IV PROTOCOL; Start 06/06/18 at 16:00 Nystatin (Nystatin Susp) 5 ml QID PO Last administered on 06/26/18at 12:31; Admin Dose 5 ML; Start 06/06/18 at 17:00 Metoprolol Tartrate (Lopressor) 25 mg BID PO Last administered on 06/26/18at 08:53; Admin Dose 25 MG; Start 06/13/18 at 21:00 Metoprolol Tartrate (Lopressor) 5 mg Q4H PRN IV HR>110 Hold SBP<100; Start 06/13/18 at 10:30 Morphine Sulfate (morphine) 6 mg Q2H PRN PO FOR NON CARDIAC PAIN (4-10); Start 06/13/18 at 11:30 Docusate Sodium (Colace) 100 mg DAILY PRN PO CONSTIPATION; Start 06/21/18 at 12:00 Warfarin Sodium (Coumadin) 5 mg DAILY@17 PO Last administered on 06/25/18at 17 :46; Admin Dose 5 MG; Start 06/21/18 at 17:00 Miscellaneous [facility] This patient gomes... PRN PRN XX WOUND CARE; Start 06/21/18 at 16:00 Amiodarone HCl (Cordarone) 200 mg BID PO Last administered on 06/26/18at 08:54; Admin Dose 200 MG; Start 06/22/18 at 21:00 Bumetanide (Bumex) 1 mg DAILY@0600 PO Last administered on 06/26/18at 06:42; Admin Dose 1 MG; Start 06/25/18 at 06:00 Miscellaneous Information (*Order Clarification Bulletin) MEDICATION REQUIRES CLARIFICATION:PLE... Q8H XX ; Start 06/26/18 at 12:00 DELICIA MATUTE Jun 26, 2018 15:30
[2018-06-26] MEDS: WARFARIN 5 MG TAB PO SCH (17:32)
--- NOTE | 2018-06-26 17:55 | CONS ---
Assessment/Plan Assessment/Plan Hospital Course (Demo Recall) - S/p severe sepsis due to UTI, improved - S/p SIRS due to acute blood loss, improved - S/p nasopharyngeal bleed on 06/11/2018, resolved - s/p UTI due to E. coli, resolved. 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, s/p covered stent placement 6 x 100 mm right common femoral artery and right external iliac artery, abdominal aortogram, catheter introduction to the abdominal aorta, JOSÉ MIGUEL guidance into the central artery 06/02/2018 - s/p retroperitoneal bleed - s/p acute anemia requiring PRBC - s/p CT guided placement of drainage catheter into pelvic hematoma 06/05/2018-->removed on 06/09/2018 - FORREST, improved - s/p L heart catheterization on 05/27/2018 showing no significant obstructive CAD - CAD s/p CABG in in 1982 - H/o MVR with mechanical valve, in 1999 - cholelithiasis without e/o acute cholecystitis - Hypertension - Hyperlipidemia - Hypothyroidism - asthma - s/p GOMES, resolved. CT head shows no acute findings - venous JOSÉ MIGUEL of b/l LE was negative for DVT Recommendations: - Continue to monitor Pt off systemic antibiotic. - ARU eval in progress Consultation Date/Type/Reason Admit Date/Time May 28, 2018 at 17:52 Initial Consult Date 06/03/18 Type of Consult ID Requesting Provider: JULY VALENTIN MD Date/Time of Note DATE: 06/26/18 TIME: 17:55 Exam/Review of Systems Exam Vitals Vital Signs Date Temp Pulse Resp B/P (MAP) Pulse Ox O2 O2 Flow FiO2 Time Delivery Rate 06/26/18 77 16:17 06/26/18 98.0 20 125/68 98 15:41 (87) 06/25/18 Room Air 15:14 Intake and Output 06/25/18 06/25/18 06/26/18 1515:00 23:00 07:00 IntakeIntake Total 1600 ml 400 ml BalanceBalance 1600 ml 400 ml Results Result Diagram: 06/24/18 0705 06/25/18 0602 Results 24hrs Laboratory Tests Test 06/26/18 15:45 Prothrombin Time 24.2 H Prothrombin Time Ratio 1.9 INR International Normalized Ratio 2.16 Medications Medication Current Medications Acetaminophen (Tylenol Tab) 650 mg Q4H PRN PO FEVER GREATER THAN 100.6 Last administered on 06/11/18 01:38; Admin Dose 650 MG; Start 05/27/18 at 11:30 Al Hydrox/Mg Hydrox/Simethicone (Mag-Al Plus) 30 ml Q4H PRN PO GASTROINTESTINAL UPSET; Start 05/27/18 at 11:30 Ondansetron HCl (Zofran Inj) 4 mg Q4H PRN IV NAUSEA AND/OR VOMITING Last administered on 06/06/18 06:05; Admin Dose 4 MG; Start 05/27/18 at 11:30 Levothyroxine Sodium (Synthroid) 50 mcg BEFORE BREAKFAST PO Last administered on 06/26/18 06:40; Admin Dose 50 MCG; Start 05/30/18 at 07:00 Mometasone Furoate (Asmanex) 1 puff DAILY INH Last administered on 06/26/18at 08:52; Admin Dose 1 PUFF; Start 05/29/18 at 11:00 Atorvastatin Calcium (Lipitor) 10 mg DAILY@21 PO Last administered on 06/25/18 21:30; Admin Dose 10 MG; Start 05/29/18 at 21:00 Latanoprost (Xalatan) 1 drop HS BOTH EYES Last administered on 06/25/18at 21:36; Admin Dose 1 DROP; Start 06/01/18 at 21:00 Amlodipine Besylate (Norvasc) 5 mg DAILY PO ; Start 06/03/18 at 09:00; Status Hold Pantoprazole (Protonix Tab) 40 mg DAILY@06 PO Last administered on 06/26/18 06:40; Admin Dose 40 MG; Start 06/05/18 at 06:00 Metoclopramide HCl (Reglan) 5 mg TID PRN IV Nausea; Start 06/06/18 at 11:00 Polyethylene Glycol (Miralax) 17 gm BID PRN PO CONSTIPATION; Start 06/06/18 at 14:00 Bisacodyl (Dulcolax Supp) 10 mg DAILY PRN [place] CONSTIPATION; Start 06/06/18 at 14:00 IV Flush (NS 10 ml) 10 ml PRN PRN IV IV PROTOCOL; Start 06/06/18 at 16:00 Nystatin (Nystatin Susp) 5 ml QID PO Last administered on 06/26/18at 17:32; Admin Dose 5 ML; Start 06/06/18 at 17:00 Metoprolol Tartrate (Lopressor) 25 mg BID PO Last administered on 06/26/18at 08:53; Admin Dose 25 MG; Start 06/13/18 at 21:00 Metoprolol Tartrate (Lopressor) 5 mg Q4H PRN IV HR>110 Hold SBP<100; Start 06/13/18 at 10:30 Morphine Sulfate (morphine) 6 mg Q2H PRN PO FOR NON CARDIAC PAIN (4-10); Start 06/13/18 at 11:30 Docusate Sodium (Colace) 100 mg DAILY PRN PO CONSTIPATION; Start 06/21/18 at 1 2:00 Warfarin Sodium (Coumadin) 5 mg DAILY@17 PO Last administered on 06/26/18at 17:32; Admin Dose 5 MG; Start 06/21/18 at 17:00 Miscellaneous Information (Pending [facility] Order For Wound Care) This patient gomes... PRN PRN XX WOUND CARE; Start 06/21/18 at 16:00 Amiodarone HCl (Cordarone) 200 mg BID PO Last administered on 06/26/18at 08:54; Admin Dose 200 MG; Start 06/22/18 at 21:00 Bumetanide (Bumex) 1 mg DAILY@0600 PO Last administered on 06/26/18at 06:42; Admin Dose 1 MG; Start 06/25/18 at 06:00 Miscellaneous Information (*Order Clarification Bulletin) MEDICATION REQUIRES CLARIFICATION:PLE... Q8H XX ; Start 06/26/18 at 12:00 MARSHA IYER MD Jun 26, 2018 17:55
[2018-06-26] MEDS: ATORVASTATIN 10 MG TAB PO SCH (20:40)
[2018-06-26] MEDS: LATANOPROST 0.005% 2.5 ML OPH BOTH EYES SCH (20:41)
[2018-06-27] VITALS (10 sets, daily range): BP systolic 100–134; BP diastolic 55–60; PULSE 58–84; RESP 18–19
[2018-06-27] MEDS: LEVOTHYROXINE 50 MCG TAB PO SCH (06:54)
[2018-06-27] MEDS: BUMETANIDE 1 MG TAB PO SCH (06:54)
[2018-06-27] MEDS: PANTOPRAZOLE (EC) 40 MG TAB PO SCH (06:54)
--- NOTE | 2018-06-27 08:38 | PN ---
DATE: 06/27/2018 SUBJECTIVE: The patient is stable, no events overnight. OBJECTIVE: VITAL SIGNS: Blood pressure is 134/60, pulse 75, temperature 97.9. HEENT: Head is normocephalic. NECK: Supple. HEART: Regular rate. LUNGS: Show diminished breath sounds at the base. ABDOMEN: Soft, nontender to palpation without rebound or guarding. EXTREMITIES: Negative for clubbing, cyanosis, no edema. DERMATOLOGIC: No rashes. MUSCULOSKELETAL: No joint effusion. NEUROLOGIC: No change in exam. MEDICATIONS: Reviewed. LABORATORY DATA: Reviewed. ASSESSMENT AND PLAN: 1. Nonoliguric acute kidney injury with previously normal baseline creatinine of 0.6 mg/dL. Etiolog y of acute kidney injury is secondary to acute tubular necrosis. Renal function is improved. Contin ue to monitor. 2. Volume overload, improving. The patient is on once daily Bumex. We will continue. 3. Hypernatremia, improved. 4. Hypomagnesemia. Continue to monitor and replete as needed. 5. Anemia. Monitor hemoglobin and hematocrit levels. 6. Coronary artery disease. Continue medical management. 7. Mechanical heart valve. Continue anticoagulation. 8. Sepsis secondary to urinary tract infection. The patient is completing antibiotic course. 9. Hypothyroidism. Continue Synthroid. 10. Dyslipidemia. Continue statin therapy. 11. Hypertension. Continue current blood pressure regimen. 12. Intraabdominal hematoma, resolving. Dictated By: GWYN FABIAN DO NR/NTS Conf#: [id number] DID#: [id number] CC: JOAQUIN DE LEON MD; CHRIS LAZAR MD; JULY VALENTIN MD;*EndCC*
[2018-06-27] MEDS: MOMETASONE 0.24 GM INHALER INH SCH (08:44)
[2018-06-27] MEDS: NYSTATIN SUSP 5 ML CUP PO SCH ×4 (08:44→20:58)
[2018-06-27] MEDS: AMIODARONE 200 MG TAB PO SCH ×2 (08:45→20:59)
[2018-06-27] MEDS: METOPROLOL 25 MG TAB PO SCH ×2 (08:45→20:59)
--- NOTE | 2018-06-27 12:42 | CONS ---
Assessment/Plan Assessment/Plan Hospital Course (Demo Recall) IMP: 1.cad s/p LHC with no sig obstructive cad 2.HTN 3.RP Bleed s/p transfusions now stable and tolerating heparin/coumadin loading. Then had recurrent bled overnight now s/p covered stent to ACETYLENE TORCH OPERATOR/Ext iliac. Stable collection by abd CT 06/06 but still with pigtail catheter in place 4.HL 5.MVR-mechanical 6.anemia- s/p repair of R ACETYLENE TORCH OPERATOR/illiac. Had hemoptysis with subsequent drop in Hgb again and holding of heparin. Had some mild blood tinged sputum 7.Hypothyroid 8. GOMES-negative Head CT 9. Fevers-with positive ua 10. UTI 11.ARF-? Contrast induced/compression from hematoma- now improving with in creased urine output and slowly decreasing community living instructor 12. Coagulopathy-now therapeutic 14. LE weakness-? compression from hematoma and exacerbated by femoral compression after cath-now resolved 15. arterial insuff- LLE- s/p TAX PROCESSOR/thrombolysis 06/04 successfully with palpable pulses/B DP/PT and remain that way 16. PAF/AFL-rate controlled 17. Hematuria-resolved at this time 18. Epistaxis-improved 19. Hyponatremia Recc: -Now on tele -Continue BB with well controlled Hr's -Continue statin -s/p course of abx's -ongoing ID f/u -F/U community living instructor/K closely with creatnine now normalized and volume status improved. Follow low NA today clsoely -Continue coumadin and follow INR closely which is now therapeutic -Follow HGb clsoely and will repeat this afternoon to assure stability -PT/ambulation -Continue PO bumex now daily and follow volume status closely -will continue amio bid for now in attempt to return patient to [facility] -PT/? rehab eval? Consultation Date/Type/Reason Admit Date/Time May 28, 2018 at 17:52 Initial Consult Date 05/28/18 Type of Consult Cardiology Reason for Consultation MVR Requesting Provider: JULY VALENTIN MD Date/Time of Note DATE: 06/27/18 TIME: 12:39 Exam/Review of Systems Vital Signs Vitals Vital Signs Date Temp Pulse Resp B/P (MAP) Pulse Ox O2 O2 Flow FiO2 Time Delivery Rate 06/27/18 97.8 84 18 132/60 96 Room Air 11:22 (84) Intake and Output 06/26/18 06/26/18 06/27/18 1414:59 22:59 06:59 IntakeIntake Total 400 ml 700 ml BalanceBalance 400 ml 700 ml Exam Exam Review of Systems: CONSTITUTIONAL: No fevers, chills. PULMONARY: No sob CARDIOVASCULAR: No chest pain/palpitations GASTROINTESTINAL: No nausea/vomiting. GENITOURINARY: No hematuria/dysuria. MUSCULOSKELETAL: No myagias/arthalgias. PSYCHIATRIC: The patient denies depression. NEUROLOGIC: mild generalized weakness Constitutional: alert Psych: no complaints Head: normocephalic ENMT: mucosa pink and moist Neck: supple, jvd (9 cm water) Respiratory: clear to auscultation Cardiovascular: regular rate and rhythm Gastrointestinal: soft, non-tender Extremities: normal pulses, edema (trace/B) Neurological: other (L foot drop per patient) Labs Result Diagram: 06/27/18 0553 06/27/18 0553 Results 24hrs Laboratory Tests Test 06/26/18 15:45 06/27/18 05:53 Prothrombin Time 24.2 H Prothrombin Time Ratio 1.9 INR International Normalized Ratio 2.16 White Blood Count 5.6 Red Blood Count 2.56 L Hemoglobin 7.7 L Hematocrit 24.6 L Mean Corpuscular Volume 96.1 Mean Corpuscular Hemoglobin 30.1 Mean Corpuscular Hemoglobin Concent 31.3 L Red Cell Distribution Width 16.4 H Platelet Count 233 Mean Platelet Volume 9.9 Immature Granulocytes % 5.900 H Neutrophils % Segmented Neutrophils % (Manual) 59 Band Neutrophils % (Manual) 8 H Lymphocytes % Lymphocytes % (Manual) 21 Monocytes % Monocytes % (Manual) 5 Eosinophils % Eosinophils % (Manual) 4 Basophils % Basophils % (Manual) 1 Metamyelocytes % (manual) 1 H Myelocytes % (Manual) 1 H Nucleated Red Blood Cells % 1 H Immature Granulocytes # 0.330 H Neutrophils # Neutrophils # (Manual) 3.3 Band Neutrophils # 0.4 Lymphocytes (Manual) 1.1 Lymphocytes # Monocytes # Monocytes # (Manual) 0.2 L Eosinophils # Basophils # Basophils # (Manual) 0.0 Metamyelocytes # 0.0 Myelocytes # 0.0 Nucleated Red Blood Cells # Platelet Estimate NORMAL Polychromasia 3+ Anisocytosis 1+ Microcytosis 1+ Sodium Level 137 Potassium Level 3.6 Chloride Level 100 Carbon Dioxide Level 31 Anion Gap 6 Blood Urea Nitrogen 27 H Creatinine 0.63 Est Glomerular Filtrat Rate mL/min > 60 Glucose Level 120 Calcium Level 8.8 Medications Medications Current Medications Acetaminophen (Tylenol Tab) 650 mg Q4H PRN PO FEVER GREATER THAN 100.6 Last administered on 06/11/18 01:38; Admin Dose 650 MG; Start 05/27/18 at 11:30 Al Hydrox/Mg Hydrox/Simethicone (Mag-Al Plus) 30 ml Q4H PRN PO GASTROINTESTINAL UPSET; Start 05/27/18 at 11:30 Ondansetron HCl (Zofran Inj) 4 mg Q4H PRN IV NAUSEA AND/OR VOMITING Last adm inistered on 06/06/18 06:05; Admin Dose 4 MG; Start 05/27/18 at 11:30 Levothyroxine Sodium (Synthroid) 50 mcg BEFORE BREAKFAST PO Last administered on 06/27/18 06:54; Admin Dose 50 MCG; Start 05/30/18 at 07:00 Mometasone Furoate (Asmanex) 1 puff DAILY INH Last administered on 06/27/18 08:44; Admin Dose 1 PUFF; Start 05/29/18 at 11:00 Atorvastatin Calcium (Lipitor) 10 mg DAILY@21 PO Last administered on 06/26/18 20:40; Admin Dose 10 MG; Start 05/29/18 at 21:00 Latanoprost (Xalatan) 1 drop HS BOTH EYES Last administered on 06/26/18 20:41; Admin Dose 1 DROP; Start 06/01/18 at 21:00 Amlodipine Besylate (Norvasc) 5 mg DAILY PO ; Start 06/03/18 at 09:00; Status Hold Pantoprazole (Protonix Tab) 40 mg DAILY@06 PO Last administered on 06/27/18 06:54; Admin Dose 40 MG; Start 06/05/18 at 06:00 Metoclopramide HCl (Reglan) 5 mg TID PRN IV Nausea; Start 06/06/18 at 11:00 Polyethylene Glycol (Miralax) 17 gm BID PRN PO CONSTIPATION; Start 06/06/18 at 14:00 Bisacodyl (Dulcolax Supp) 10 mg DAILY PRN [place] CONSTIPATION; Start 06/06/18 at 14:00 IV Flush (NS 10 ml) 10 ml PRN PRN IV IV PROTOCOL; Start 06/06/18 at 16:00 Nystatin (Nystatin Susp) 5 ml QID PO Last administered on 06/27/18at 12:34; Admin Dose 5 ML; Start 06/06/18 at 17:00 Metoprolol Tartrate (Lopressor) 25 mg BID PO Last administered on 06/27/18at 08:45; Admin Dose 25 MG; Start 06/13/18 at 21:00 Metoprolol Tartrate (Lopressor) 5 mg Q4H PRN IV HR>110 Hold SBP<100; Start 06/13/18 at 10:30 Morphine Sulfate (morphine) 6 mg Q2H PRN PO FOR NON CARDIAC PAIN (4-10); Start 06/13/18 at 11:30 Docusate Sodium (Colace) 100 mg DAILY PRN PO CONSTIPATION; Start 06/21/18 at 12:00 Warfarin Sodium (Coumadin) 5 mg DAILY@17 PO Last administered on 06/26/18at 17:32; Admin Dose 5 MG; Start 06/21/18 at 17:00 Miscellaneous Information (Pending [facility] Order For Wound Care) This patient gomes... PRN PRN XX WOUND CARE; Start 06/21/18 at 16:00 Amiodarone HCl (Cordarone) 200 mg BID PO Last administered on 06/27/18at 08:45; Admin Dose 200 MG; Start 06/22/18 at 21:00 Bumetanide (Bumex) 1 mg DAILY@0600 PO Last administered on 06/27/18at 06:54; Admin Dose 1 MG; Start 06/25/18 at 06:00 Miscellaneous Information (*Order Clarification Bulletin) MEDICATION REQUIRES CLARIFICATION:PLE... Q8H XX ; Start 06/26/18 at 12:00 CHRIS LAZAR Jun 27, 2018 12:42
[2018-06-27] MEDS: WARFARIN 5 MG TAB PO SCH (17:45)
--- NOTE | 2018-06-27 17:50 | CONS ---
Assessment/Plan Assessment/Plan Hospital Course (Demo Recall) - S/p severe sepsis due to UTI, resolved - S/p SIRS due to acute blood loss, resolved - S/p nasopharyngeal bleed on 06/11/2018, resolved - s/p UTI due to E. coli, resolved. 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, s/p covered stent placement 6 x 100 mm right common femoral artery and right external iliac artery, abdominal aortogram, catheter introduction to the abdominal aorta, JOSÉ MIGUEL guidance into the central artery 06/02/2018 - s/p retroperitoneal bleed - s/p acute anemia requiring PRBC - s/p CT guided placement of drainage catheter into pelvic hematoma 06/05/2018-->removed on 06/09/2018 - FORREST, improved - s/p L heart catheterization on 05/27/2018 showing no significant obstructive CAD - CAD s/p CABG in in 1982 - H/o MVR with mechanical valve, in 1999 - cholelithiasis without e/o acute cholecystitis - Hypertension - Hyperlipidemia - Hypothyroidism - asthma - s/p FOURNIER, resolved. CT head shows no acute findings - venous JOSÉ MIGUEL of b/l LE was negative for DVT Recommendations: - Continue to monitor Pt off systemic antibiotic. - ARU eval in progress Plan was d/w patient, her daughter at bedside, and with Dr. Hughes. Thank you Consultation Date/Type/Reason Admit Date/Time May 28, 2018 at 17:52 Initial Consult Date 06/03/18 Type of Consult ID Requesting Provider: JULY VALENTIN MD Date/Time of Note DATE: 06/27/18 TIME: 17:48 24 HR Interval Summary Free Text/Dictation Per d/w patient and her daughter at the bedside, patient did not get oob today. The patient's daughter is asking me if physical therapy can come more than once per day. The patient denied all ROS and stated "My leg is still very weak." Exam/Review of Systems Exam Vitals Vital Signs Date Temp Pulse Resp B/P (MAP) Pulse Ox O2 O2 Flow FiO2 Time Delivery Rate 06/27/18 Room Air 16:12 06/27/18 77 16:01 06/27/18 98.2 18 100/58 95 15:55 (72) Intake and Output 06/26/18 06/26/18 06/27/18 1515:00 23:00 07:00 IntakeIntake Total 700 ml 300 ml BalanceBalance 700 ml 300 ml Allergies Coded Allergies No Known Allergy (Unverified06/09/18) Exam Constitutional: alert, oriented, well developed, other (resting comfortably in bed and smiling) Psych: no complaints, nl mood/affect Head: normocephalic, atraumatic Eyes: nl conjunctiva, nl lids, nl sclera ENMT: nl external ears & nose, nl nasal mucosa & septum, mucosa pink and moist Neck: supple, non-tender (not swollen) Respiratory: clear to auscultation, normal air movement Cardiovascular: regular rate and rhythm, nl pulses Gastrointestinal: soft, non-tender (all 4 quadrants) Genitourinary - Female: other (no f/c) Musculoskeletal: nl extremities to inspection Extremities: normal pulses, edema (BLE), pitting pedal edema Neurological: SPOT REMOVER II-XII intact, nl mental status, nl speech Skin: nl turgor, ecchymosis (scattered); No rash or lesions Results Result Diagram: 06/27/18 1448 06/27/18 0553 Results 24hrs Laboratory Tests Test 06/27/18 05:53 06/27/18 14:48 White Blood Count 5.6 6.1 Red Blood Count 2.56 L 2.66 L Hemoglobin 7.7 L 8.3 L Hematocrit 24.6 L 25.5 L Mean Corpuscular Volume 96.1 95.9 Mean Corpuscular Hemoglobin 30.1 31.2 Mean Corpuscular Hemoglobin Concent 31.3 L 32.5 Red Cell Distribution Width 16.4 H 16.3 H Platelet Count 233 257 Mean Platelet Volume 9.9 9.6 Immature Granulocytes % 5.900 H 4.700 H Neutrophils % 62.8 Segmented Neutrophils % (Manual) 59 Band Neutrophils % (Manual) 8 H Lymphocytes % 22.5 Lymphocytes % (Manual) 21 Monocytes % 6.9 Monocytes % (Manual) 5 Eosinophils % 2.4 Eosinophils % (Manual) 4 Basophils % 0.7 Basophils % (Manual) 1 Metamyelocytes % (manual) 1 H Myelocytes % (Manual) 1 H Nucleated Red Blood Cells % 1 H 0.3 H Immature Granulocytes # 0.330 H 0.290 H Neutrophils # 3.9 Neutrophils # (Manual) 3.3 Band Neutrophils # 0.4 Lymphocytes (Manual) 1.1 Lymphocytes # 1.4 Monocytes # 0.4 Monocytes # (Manual) 0.2 L Eosinophils # 0.2 Basophils # 0.0 Basophils # (Manual) 0.0 Metamyelocytes # 0.0 Myelocytes # 0.0 Nucleated Red Blood Cells # 0.0 Platelet Estimate NORMAL Polychromasia 3+ Anisocytosis 1+ Microcytosis 1+ Sodium Level 137 Potassium Level 3.6 Chloride Level 100 Carbon Dioxide Level 31 Anion Gap 6 Blood Urea Nitrogen 27 H Creatinine 0.63 Est Glomerular Filtrat Rate mL/min > 60 Glucose Level 120 Calcium Level 8.8 Imaging Imaging CXR 06/24/18 IMPRESSION: Cardiomegaly with mild decrease in pulmonary edema. Stable small bilateral pleural effusions. Medications Medication Current Medications Acetaminophen (Tylenol Tab) 650 mg Q4H PRN PO FEVER GREATER THAN 100.6 Last administered on 06/11/18 01:38; Admin Dose 650 MG; Start 05/27/18 at 11:30 Al Hydrox/Mg Hydrox/Simethicone (Mag-Al Plus) 30 ml Q4H PRN PO GASTROINTESTINAL UPSET; Start 05/27/18 at 11:30 Ondansetron HCl (Zofran Inj) 4 mg Q4H PRN IV NAUSEA AND/OR VOMITING Last administered on 06/06/18 06:05; Admin Dose 4 MG; Start 05/27/18 at 11:30 Levothyroxine Sodium (Synthroid) 50 mcg BEFORE BREAKFAST PO Last administered on 06/27/18 06:54; Admin Dose 50 MCG; Start 05/30/18 at 07:00 Mometasone Furoate (Asmanex) 1 puff DAILY INH Last administered on 06/27/18 08:44; Admin Dose 1 PUFF; Start 05/29/18 at 11:00 Atorvastatin Calcium (Lipitor) 10 mg DAILY@21 PO Last administered on 06/26/18 20:40; Admin Dose 10 MG; Start 05/29/18 at 21:00 Latanoprost (Xalatan) 1 drop HS BOTH EYES Last administered on 06/26/18 20:41; Admin Dose 1 DROP; Start 06/01/18 at 21:00 Amlodipine Besylate (Norvasc) 5 mg DAILY PO ; Start 06/03/18 at 09:00; Status Hold Pantoprazole (Protonix Tab) 40 mg DAILY@06 PO Last administered on 06/27/18at 06:54; Admin Dose 40 MG; Start 06/05/18 at 06:00 Metoclopramide HCl (Reglan) 5 mg TID PRN IV Nausea; Start 06/06/18 at 11:00 Polyethylene Glycol (Miralax) 17 gm BID PRN PO CONSTIPATION; Start 06/06/18 at 14:00 Bisacodyl (Dulcolax Supp) 10 mg DAILY PRN [place] CONSTIPATION; Start 06/06/18 at 14:00 IV Flush (NS 10 ml) 10 ml PRN PRN IV IV PROTOCOL; Start 06/06/18 at 16:00 Nystatin (Nystatin Susp) 5 ml QID PO Last administered on 06/27/18at 17:44; Admin Dose 5 ML; Start 06/06/18 at 17:00 Metoprolol Tartrate (Lopressor) 25 mg BID PO Last administered on 06/27/18at 08:45; Admin Dose 25 MG; Start 06/13/18 at 21:00 Metoprolol Tartrate (Lopressor) 5 mg Q4H PRN IV HR>110 Hold SBP<100; Start 06/13/18 at 10:30 Morphine Sulfate (morphine) 6 mg Q2H PRN PO FOR NON CARDIAC PAIN (4-10); Start 06/13/18 at 11:30 Docusate Sodium (Colace) 100 mg DAILY PRN PO CONSTIPATION; Start 06/21/18 at 12:00 Warfarin Sodium (Coumadin) 5 mg DAILY@17 PO Last administered on 06/27/18at 17 :45; Admin Dose 5 MG; Start 06/21/18 at 17:00 Miscellaneous Information (Pending [facility] Order For Wound Care) This patient fournier... PRN PRN XX WOUND CARE; Start 06/21/18 at 16:00 Amiodarone HCl (Cordarone) 200 mg BID PO Last administered on 06/27/18at 08:45; Admin Dose 200 MG; Start 06/22/18 at 21:00 Bumetanide (Bumex) 1 mg DAILY@0600 PO Last administered on 06/27/18at 06:54; Admin Dose 1 MG; Start 06/25/18 at 06:00 Miscellaneous Information (*Order Clarification Bulletin) MEDICATION REQUIRES CLARIFICATION:PLE... Q8H XX ; Start 06/26/18 at 12:00 WILIAM HUI NP Jun 27, 2018 17:50
--- NOTE | 2018-06-27 18:02 | PN ---
Date/Time of Note Date/Time of Note DATE: 06/27/18 TIME: 18:01 Assessment/Plan VTE Prophylaxis Risk score (from Ns)>0 risk: 6 SCD applied (from Ns): Yes Pharmacological prophylaxis: warfarin tx Lines/Catheters IV Catheter Type (from Nrs): PICC Line Central line still needed: Yes Urinary Cath still in place: No Assessment/Plan Hospital Course Patient continues on room air without distress, able to work with physical therapy with gradual improvement, incontinent of urine, pending acute rehab authorization. Assessment/Plan -Nose/oropharyngeal bleed on 06/11/2018, stopped after heparin was held. -Recent retroperitoneal bleed secondary to vascular injury status post stent placement. Monitor H and H. S/p eval by Dr. Kilpatrick, vascular surgery consultation. -Leukocytosis, resolved. Dr. Castellanos is following in infection disease consul tation. Patient is off antibiotics. -Status post left heart catheterization with no significant obstructive coronary artery disease by Dr. Moreno on 05/27/2018. -Anemia of acute blood loss, status post blood transfusion, continue to monitor hemoglobin and hematocrit. -Urinary incontinence -Acute illness myopathy -Status post mitral valve replacement with mechanical valve in 1999 in [facility]. Continue Coumadin, monitor PT/INR. -HTN, continue metoprolol -Hyperlipidemia -Hypothyroidism, continue levothyroxine -History of asthma Further recommendations based on clinical course. Plan of care discussed with Dr. Painter. Result Diagram: 06/27/18 1448 06/27/18 0553 Results 24hrs Laboratory Tests Test 06/27/18 05:53 06/27/18 14:48 White Blood Count 5.6 6.1 Red Blood Count 2.56 L 2.66 L Hemoglobin 7.7 L 8.3 L Hematocrit 24.6 L 25.5 L Mean Corpuscular Volume 96.1 95.9 Mean Corpuscular Hemoglobin 30.1 31.2 Mean Corpuscular Hemoglobin Concent 31.3 L 32.5 Red Cell Distribution Width 16.4 H 16.3 H Platelet Count 233 257 Mean Platelet Volume 9.9 9.6 Immature Granulocytes % 5.900 H 4.700 H Neutrophils % 62.8 Segmented Neutrophils % (Manual) 59 Band Neutrophils % (Manual) 8 H Lymphocytes % 22.5 Lymphocytes % (Manual) 21 Monocytes % 6.9 Monocytes % (Manual) 5 Eosinophils % 2.4 Eosinophils % (Manual) 4 Basophils % 0.7 Basophils % (Manual) 1 Metamyelocytes % (manual) 1 H Myelocytes % (Manual) 1 H Nucleated Red Blood Cells % 1 H 0.3 H Immature Granulocytes # 0.330 H 0.290 H Neutrophils # 3.9 Neutrophils # (Manual) 3.3 Band Neutrophils # 0.4 Lymphocytes (Manual) 1.1 Lymphocytes # 1.4 Monocytes # 0.4 Monocytes # (Manual) 0.2 L Eosinophils # 0.2 Basophils # 0.0 Basophils # (Manual) 0.0 Metamyelocytes # 0.0 Myelocytes # 0.0 Nucleated Red Blood Cells # 0.0 Platelet Estimate NORMAL Polychromasia 3+ Anisocytosis 1+ Microcytosis 1+ Sodium Level 137 Potassium Level 3.6 Chloride Level 100 Carbon Dioxide Level 31 Anion Gap 6 Blood Urea Nitrogen 27 H Creatinine 0.63 Est Glomerular Filtrat Rate mL/min > 60 Glucose Level 120 Calcium Level 8.8 Exam/Review of Systems Exam Vitals Vital Signs Date Temp Pulse Resp B/P (MAP) Pulse Ox O2 O2 Flow FiO2 Time Delivery Rate 06/27/18 Room Air 16:12 06/27/18 77 16:01 06/27/18 98.2 18 100/58 95 15:55 (72) Intake and Output 06/26/18 06/26/18 06/27/18 1515:00 23:00 07:00 IntakeIntake Total 700 ml 300 ml BalanceBalance 700 ml 300 ml Exam Constitutional: alert, oriented Respiratory: clear to auscultation Cardiovascular: regular rate and rhythm Gastrointestinal: soft, non-tender Musculoskeletal: nl extremities to inspection Extremities: normal pulses Neurological: nl mental status Results Results 24hrs Laboratory Tests Test 06/27/18 05:53 06/27/18 14:48 White Blood Count 5.6 6.1 Red Blood Count 2.56 L 2.66 L Hemoglobin 7.7 L 8.3 L Hematocrit 24.6 L 25.5 L Mean Corpuscular Volume 96.1 95.9 Mean Corpuscular Hemoglobin 30.1 31.2 Mean Corpuscular Hemoglobin Concent 31.3 L 32.5 Red Cell Distribution Width 16.4 H 16.3 H Platelet Count 233 257 Mean Platelet Volume 9.9 9.6 Immature Granulocytes % 5.900 H 4.700 H Neutrophils % 62.8 Segmented Neutrophils % (Manual) 59 Band Neutrophils % (Manual) 8 H Lymphocytes % 22.5 Lymphocytes % (Manual) 21 Monocytes % 6.9 Monocytes % (Manual) 5 Eosinophils % 2.4 Eosinophils % (Manual) 4 Basophils % 0.7 Basophils % (Manual) 1 Metamyelocytes % (manual) 1 H Myelocytes % (Manual) 1 H Nucleated Red Blood Cells % 1 H 0.3 H Immature Granulocytes # 0.330 H 0.290 H Neutrophils # 3.9 Neutrophils # (Manual) 3.3 Band Neutrophils # 0.4 Lymphocytes (Manual) 1.1 Lymphocytes # 1.4 Monocytes # 0.4 Monocytes # (Manual) 0.2 L Eosinophils # 0.2 Basophils # 0.0 Basophils # (Manual) 0.0 Metamyelocytes # 0.0 Myelocytes # 0.0 Nucleated Red Blood Cells # 0.0 Platelet Estimate NORMAL Polychromasia 3+ Anisocytosis 1+ Microcytosis 1+ Sodium Level 137 Potassium Level 3.6 Chloride Level 100 Carbon Dioxide Level 31 Anion Gap 6 Blood Urea Nitrogen 27 H Creatinine 0.63 Est Glomerular Filtrat Rate mL/min > 60 Glucose Level 120 Calcium Level 8.8 Medications Medication Current Medications Acetaminophen (Tylenol Tab) 650 mg Q4H PRN PO FEVER GREATER THAN 100.6 Last administered on 06/11/18 01:38; Admin Dose 650 MG; Start 05/27/18 at 11:30 Al Hydrox/Mg Hydrox/Simethicone (Mag-Al Plus) 30 ml Q4H PRN PO GASTROINTESTINAL UPSET; Start 05/27/18 at 11:30 Ondansetron HCl (Zofran Inj) 4 mg Q4H PRN IV NAUSEA AND/OR VOMITING Last administered on 06/06/18 06:05; Admin Dose 4 MG; Start 05/27/18 at 11:30 Levothyroxine Sodium (Synthroid) 50 mcg BEFORE BREAKFAST PO Last administered on 06/27/18 06:54; Admin Dose 50 MCG; Start 05/30/18 at 07:00 Mometasone Furoate (Asmanex) 1 puff DAILY INH Last administered on 06/27/18 08:44; Admin Dose 1 PUFF; Start 05/29/18 at 11:00 Atorvastatin Calcium (Lipitor) 10 mg DAILY@21 PO Last administered on 3/17/19at 20:40; Admin Dose 10 MG; Start 05/29/18 at 21:00 Latanoprost (Xalatan) 1 drop HS BOTH EYES Last administered on 06/26/18at 20:41; Admin Dose 1 DROP; Start 06/01/18 at 21:00 Amlodipine Besylate (Norvasc) 5 mg DAILY PO ; Start 06/03/18 at 09:00; Status Hold Pantoprazole (Protonix Tab) 40 mg DAILY@06 PO Last administered on 06/27/18at 06:54; Admin Dose 40 MG; Start 06/05/18 at 06:00 Metoclopramide HCl (Reglan) 5 mg TID PRN IV Nausea; Start 06/06/18 at 11:00 Polyethylene Glycol (Miralax) 17 gm BID PRN PO CONSTIPATION; Start 06/06/18 at 14:00 Bisacodyl (Dulcolax Supp) 10 mg DAILY PRN [place] CONSTIPATION; Start 06/06/18 at 14:00 IV Flush (NS 10 ml) 10 ml PRN PRN IV IV PROTOCOL; Start 06/06/18 at 16:00 Nystatin (Nystatin Susp) 5 ml QID PO Last administered on 06/27/18at 17:44; Admin Dose 5 ML; Start 06/06/18 at 17:00 Metoprolol Tartrate (Lopressor) 25 mg BID PO Last administered on 06/27/18at 08:45; Admin Dose 25 MG; Start 06/13/18 at 21:00 Metoprolol Tartrate (Lopressor) 5 mg Q4H PRN IV HR>110 Hold SBP<100; Start 06/13/18 at 10:30 Morphine Sulfate (morphine) 6 mg Q2H PRN PO FOR NON CARDIAC PAIN (4-10); Start 06/13/18 at 11:30 Docusate Sodium (Colace) 100 mg DAILY PRN PO CONSTIPATION; Start 06/21/18 at 12:00 Warfarin Sodium (Coumadin) 5 mg DAILY@17 PO Last administered on 06/27/18at 17:45; Admin Dose 5 MG; Start 06/21/18 at 17:00 Miscellaneous Information (Pending Santyl Order For Wound Care) This patient gomes... PRN PRN XX WOUND CARE; Start 06/21/18 at 16:00 Amiodarone HCl (Cordarone) 200 mg BID PO Last administered on 06/27/18at 08:45; Admin Dose 200 MG; Start 06/22/18 at 21:00 Bumetanide (Bumex) 1 mg DAILY@0600 PO Last administered on 06/27/18at 06:54; Admin Dose 1 MG; Start 06/25/18 at 06:00 Miscellaneous Information (*Order Clarification Bulletin) MEDICATION REQUIRES CLARIFICATION:PLE... Q8H XX ; Start 06/26/18 at 12:00 KRISTY MCCULLOUGH Jun 27, 2018 18:02
[2018-06-27] MEDS: ATORVASTATIN 10 MG TAB PO SCH (20:59)
[2018-06-27] MEDS: LATANOPROST 0.005% 2.5 ML OPH BOTH EYES SCH (21:05)
[2018-06-28] VITALS (9 sets, daily range): BP systolic 91–140; BP diastolic 50–64; PULSE 76–93; RESP 18–19
[2018-06-28] MEDS: BUMETANIDE 1 MG TAB PO SCH (06:08)
[2018-06-28] MEDS: PANTOPRAZOLE (EC) 40 MG TAB PO SCH (06:08)
[2018-06-28] MEDS: LEVOTHYROXINE 50 MCG TAB PO SCH (06:08)
--- NOTE | 2018-06-28 08:40 | PN ---
DATE: 06/28/2018 SUBJECTIVE: The patient is stable, no events overnight. OBJECTIVE: VITAL SIGNS: Blood pressure is 126/59, pulse 91, respiration 18, temperature 98.7. HEENT: Head is normocephalic. NECK: Supple. HEART: Regular rate. LUNGS: Show diminished breath sounds at the base. ABDOMEN: Soft, nontender to palpation without rebound or guarding. EXTREMITIES: Negative for clubbing, cyanosis, no edema. DERMATOLOGIC: No rashes. MUSCULOSKELETAL: No joint effusion. NEUROLOGIC: No change in exam. MEDICATIONS: Reviewed. LABORATORY DATA: From 06/27/2018 was reviewed. ASSESSMENT AND PLAN: 1. Nonoliguric acute kidney injury with previously normal baseline creatinine of 0.6 mg/dL. Etiolog y of FORREST is secondary to acute tubular necrosis. Renal function is improved. Continue current treat ment plan. 2. Volume overload, improving. The patient is on low-dose diuretic therapy. Continue to monitor. 3. Hyponatremia, improved. 4. Hypomagnesemia. Continue to monitor and replete as needed. 5. Anemia. Monitor hemoglobin and hematocrit levels. 6. Coronary artery disease. Continue medical management. 7. Mechanical heart valve. Continue anticoagulation per cardiology. 8. Sepsis secondary to urinary tract infection. Patient is completing an antibiotic course. 9. Hypothyroidism. Continue Synthroid. 10. Dyslipidemia. Continue statin therapy. 11. Hypertension. Continue current blood pressure regimen. 12. Intraabdominal hematoma, resolved. Dictated By: GWYN FABIAN DO NR/NTS Conf#: [id number] DID#: [id number] CC: CHRIS LAZAR MD; JULY VALENTIN MD; JOAQUIN DE LEON MD;*EndCC*
[2018-06-28] MEDS: METOPROLOL 25 MG TAB PO SCH ×2 (09:45→20:51)
[2018-06-28] MEDS: NYSTATIN SUSP 5 ML CUP PO SCH ×4 (09:45→20:50)
[2018-06-28] MEDS: AMIODARONE 200 MG TAB PO SCH ×2 (09:45→20:50)
[2018-06-28] MEDS: MOMETASONE 0.24 GM INHALER INH SCH (09:46)
--- NOTE | 2018-06-28 10:36 | CONS ---
Consult Date/Type/Reason Admit Date/Time May 28, 2018 at 17:52 Initial Consult Date Type of Consultation: Urology Requesting Provider: JULY VALENTIN MD Date/Time of Note DATE: 06/28/18 TIME: 10:35 Subjective NO acute events - pt stable overall - in good fluid status - no CP now - increased ambulation - INR better ROS: No fever, no chills, no nausea, no vomiting, no diarrhea/constipation No recent weight changes No chest pain, no PND, no orthopnea No dizziness, blurred vision - leg weakness/numbness No thirst, no heat or cold intolerance Objective Vitals Vital Signs Date Temp Pulse Resp B/P (MAP) Pulse Ox O2 O2 Flow FiO2 Time Delivery Rate 06/28/18 83 08:20 06/28/18 98.7 18 126/59 95 08:01 (81) 06/27/18 Room Air 16:12 Intake and Output 06/27/18 06/27/18 06/28/18 1515:00 23:00 07:00 IntakeIntake Total 700 ml 550 ml BalanceBalance 700 ml 550 ml Exam General: WN/WD/NAD, AOx 3 HEENT: Unicetric/atraumatic/EOMI (follow commands) NECK: JVD elevated, no thyromegaly Lymph: no lymphadenopathy HEART: regular with no S3, II/ systolic murmur at apex, mech click LUNGS: Coarse sounds ABD: soft, NT, ND, +BS : Intact Neuro: non focal SKIN: chronic changes EXT: trace edema Results/Medications Result Diagram: 06/28/18 0646 06/27/18 0553 Results 24 hrs Laboratory Tests Test 06/27/18 14:48 06/28/18 06:46 White Blood Count 6.1 5.1 Red Blood Count 2.66 L 2.53 L Hemoglobin 8.3 L 7.8 L Hematocrit 25.5 L 24.7 L Mean Corpuscular Volume 95.9 97.6 Mean Corpuscular Hemoglobin 31.2 30.8 Mean Corpuscular Hemoglobin Concent 32.5 31.6 L Red Cell Distribution Width 16.3 H 16.8 H Platelet Count 257 247 Mean Platelet Volume 9.6 9.6 Immature Granulocytes % 4.700 H 5.100 H Neutrophils % 62.8 Lymphocytes % 22.5 Monocytes % 6.9 Eosinophils % 2.4 Basophils % 0.7 Nucleated Red Blood Cells % 0.3 H 2 H Immature Granulocytes # 0.290 H 0.260 H Neutrophils # 3.9 Lymphocytes # 1.4 Monocytes # 0.4 Eosinophils # 0.2 Basophils # 0.0 Nucleated Red Blood Cells # 0.0 Segmented Neutrophils % (Manual) 66 Band Neutrophils % (Manual) 5 H Lymphocytes % (Manual) 18 Reactive Lymphocytes % (Manual) 4 H Monocytes % (Manual) 4 Eosinophils % (Manual) 1 Metamyelocytes % (manual) 1 H Myelocytes % (Manual) 1 H Neutrophils # (Manual) 3.4 Band Neutrophils # 0.2 Lymphocytes (Manual) 0.9 Reactive Lymphocytes # 0.2 H Monocytes # (Manual) 0.2 L Metamyelocytes # 0.0 Myelocytes # 0.0 Platelet Estimate NORMAL Polychromasia 3+ Anisocytosis 1+ Microcytosis 1+ Prothrombin Time 28.0 H Prothrombin Time Ratio 2.2 INR International Normalized Ratio 2.61 Home Meds Reported Medications Albuterol Sulfate* (Ventolin HFA*) 18 Gm Hfa.aer.ad, 2 PUFF INHALATION Q4H, #1 INHALER 05/26/18 Ergocalciferol (Vitamin D2) (VITAMIN D2) 50,000 Unit Capsule, 21773 UNIT PO [id number], CAP 05/23/18 Warfarin Sodium* (Coumadin*) 5 Mg Tablet, 5 MG PO Q TUES,THUR,SAT, TAB 05/23/18 Warfarin Sodium* (Coumadin*) 4 Mg Tablet, 4 MG PO Q MON,WED,FRI,SUN, TAB 05/23/18 Furosemide* (Furosemide*) 20 Mg Tablet, 20 MG PO DAILY, #60 TAB TAKE Q 2 DAYS 05/23/18 Simvastatin* (Zocor*) 20 Mg Tablet, 20 MG PO QHS, #30 TAB 05/23/18 Ranitidine Hcl* (Ranitidine Hcl*) 150 Mg Tablet, 150 MG PO HS, #30 TAB 05/23/18 Acetaminophen (Mapap) 500 Mg Capsule, 500 MG PO BID PRN for PAIN, CAP 05/23/18 Levothyroxine Sodium* (Levothyroxine Sodium*) 50 Mcg Tablet, 50 MCG PO BEFORE BREAKFAST, #30 TAB 05/23/18 Spironolactone* (Aldactone*) 25 Mg Tablet, 25 MG PO DAILY, #30 TAB 05/23/18 Beclomethasone Dipropionate (Qvar Redihaler (40 MCG)) 10.6 Gm Hfa.aeroba, 10.6 GM IH DAILY, INH 05/23/18 Amlodipine Besylate* (Norvasc*) 5 Mg Tablet, 5 MG PO BID, TAB 05/23/18 Losartan-Hydrochlorothiazide (Losartan-HCTZ) 100-25 Mg Tab, 1 TAB PO DAILY, TAB 05/23/18 Medications Current Medications Acetaminophen (Tylenol Tab) 650 mg Q4H PRN PO FEVER GREATER THAN 100.6 Last administered on 06/11/18at 01:38; Admin Dose 650 MG; Start 05/27/18 at 11:30 Al Hydrox/Mg Hydrox/Simethicone (Mag-Al Plus) 30 ml Q4H PRN PO GASTROINTESTINAL UPSET; Start 05/27/18 at 11:30 Ondansetron HCl (Zofran Inj) 4 mg Q4H PRN IV NAUSEA AND/OR VOMITING Last administered on 06/06/18at 06:05; Admin Dose 4 MG; Start 05/27/18 at 11:30 Levothyroxine Sodium (Synthroid) 50 mcg BEFORE BREAKFAST PO Last administered on 06/28/18at 06:08; Admin Dose 50 MCG; Start 05/30/18 at 07:00 Mometasone Furoate (Asmanex) 1 puff DAILY INH Last administered on 06/28/18at 09:46; Admin Dose 1 PUFF; Start 05/29/18 at 11:00 Atorvastatin Calcium (Lipitor) 10 mg DAILY@21 PO Last administered on 06/27/18at 20:59; Admin Dose 10 MG; Start 05/29/18 at 21:00 Latanoprost (Xalatan) 1 drop HS BOTH EYES Last administered on 06/27/18at 21:05; Admin Dose 1 DROP; Start 06/01/18 at 21:00 Amlodipine Besylate (Norvasc) 5 mg DAILY PO ; Start 06/03/18 at 09:00; Status Hold Pantoprazole (Protonix Tab) 40 mg DAILY@06 PO Last administered on 06/28/18at 06:08; Admin Dose 40 MG; Start 06/05/18 at 06:00 Metoclopramide HCl (Reglan) 5 mg TID PRN IV Nausea; Start 06/06/18 at 11:00 Polyethylene Glycol (Miralax) 17 gm BID PRN PO CONSTIPATION; Start 06/06/18 at 14:00 Bisacodyl (Dulcolax Supp) 10 mg DAILY PRN [place] CONSTIPATION; Start 06/06/18 at 14:00 IV Flush (NS 10 ml) 10 ml PRN PRN IV IV PROTOCOL; Start 06/06/18 at 16:00 Nystatin (Nystatin Susp) 5 ml QID PO Last administered on 06/28/18at 09:45; Admin Dose 5 ML; Start 06/06/18 at 17:00 Metoprolol Tartrate (Lopressor) 25 mg BID PO Last administered on 06/28/18at 09:45; Admin Dose 25 MG; Start 06/13/18 at 21:00 Metoprolol Tartrate (Lopressor) 5 mg Q4H PRN IV HR>110 Hold SBP<100; Start 06/13/18 at 10:30 Morphine Sulfate (morphine) 6 mg Q2H PRN PO FOR NON CARDIAC PAIN (4-10); Start 06/13/18 at 11:30 Docusate Sodium (Colace) 100 mg DAILY PRN PO CONSTIPATION; Start 06/21/18 at 12:00 Warfarin Sodium (Coumadin) 5 mg DAILY@17 PO Last administered on 06/27/18at 17:45; Admin Dose 5 MG; Start 06/21/18 at 17:00 Miscellaneous Information (Pending Santyl Order For Wound Care) This patient gomes... PRN PRN XX WOUND CARE; Start 06/21/18 at 16:00 Amiodarone HCl (Cordarone) 200 mg BID PO Last administered on 06/28/18at 09:45; Admin Dose 200 MG; Start 06/22/18 at 21:00 Bumetanide (Bumex) 1 mg DAILY@0600 PO Last administered on 06/28/18at 06:08; Admin Dose 1 MG; Start 06/25/18 at 06:00 Miscellaneous Information (*Order Clarification Bulletin) MEDICATION REQUIRES CLARIFICATION:PLE... Q8H XX ; Start 06/26/18 at 12:00 Assessment/Plan Hospital Course (Demo Recall) 1.cad s/p LHC with no sig obstructive cad - on med rx now - treated - no CP now - stable - on meds 2.HTN - treated - well Rx - well controlled - controlled 3.RP Bleed s/p transfusions now stable and tolerating heparin/coumadin loading. Then had recurrent bled overnight now s/p covered stent to BREAKER OPERATOR/Ext iliac. INR 2.35 - better now -beginning to ambulate. H/H stable at 8.5 - increased ambulation. BETTER overall. 4.HL 5.MVR-mechanical - stable by exam - soft click by exam - stable Stable by exam.Soft click. 6.anemia- s/p repair of R BREAKER OPERATOR/illiac. Now stabilizing 7.Hypothyroid 8. GOMES-negative Head CT 9. Fevers-with positive ua - now resolved. CECILIA MOCTEZUMA MD Jun 28, 2018 10:36
--- NOTE | 2018-06-28 16:02 | CONS ---
Assessment/Plan Assessment/Plan Hospital Course (Demo Recall) - S/p severe sepsis due to UTI, resolved - S/p SIRS due to acute blood loss, resolved - S/p nasopharyngeal bleed on 06/11/2018, resolved - s/p UTI due to E. coli, resolved. 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, s/p covered stent placement 6 x 100 mm right common femoral artery and right external iliac artery, abdominal aortogram, catheter introduction to the abdominal aorta, JOSÉ MIGUEL guidance into the central artery 06/02/2018 - s/p retroperitoneal bleed - s/p acute anemia requiring PRBC - s/p CT guided placement of drainage catheter into pelvic hematoma 06/05/2018-->removed on 06/09/2018 - FORREST, improved - s/p L heart catheterization on 05/27/2018 showing no significant obstructive CAD - CAD s/p CABG in in 1982 - H/o MVR with mechanical valve, in 1999 - cholelithiasis without e/o acute cholecystitis - Hypertension - Hyperlipidemia - Hypothyroidism - asthma - s/p FOURNIER, resolved. CT head shows no acute findings - venous JOSÉ MIGUEL of b/l LE was negative for DVT Recommendations: - Continue to monitor Pt off systemic antibiotic. - ARU eval in progress Plan was d/w patient, her at bedside, and with Dr. Hughes. Thank you Consultation Date/Type/Reason Admit Date/Time May 28, 2018 at 17:52 Initial Consult Date 06/03/18 Type of Consult ID Requesting Provider: JULY VALENTIN MD Date/Time of Note DATE: 06/28/18 TIME: 16:01 24 HR Interval Summary Free Text/Dictation Patient has remained afebrile with no acute issues reported by nursing. She walked 50 feet today with walker with PT. Per nsg she is still awaiting an ARU placement. Patient denied all ROS. Exam/Review of Systems Exam Vitals Vital Signs Date Temp Pulse Resp B/P (MAP) Pulse Ox O2 O2 Flow FiO2 Time Delivery Rate 06/28/18 89 12:11 06/28/18 98.2 18 128/57 96 11:49 (80) 06/27/18 Room Air 16:12 Intake and Output 06/27/18 06/27/18 06/28/18 1515:00 23:00 07:00 IntakeIntake Total 700 ml 550 ml BalanceBalance 700 ml 550 ml Allergies Coded Allergies No Known Allergy (Unverified06/09/18) Exam Constitutional: alert, oriented, well developed, other (sitting up in bed comfortably in bed and smiling) Psych: no complaints, nl mood/affect Head: normocephalic, atraumatic Eyes: nl conjunctiva, nl lids, nl sclera ENMT: nl external ears & nose, nl nasal mucosa & septum, mucosa pink and moist Neck: supple, non-tender (not swollen) Respiratory: clear to auscultation, normal air movement Cardiovascular: regular rate and rhythm, nl pulses Gastrointestinal: soft, non-tender (all 4 quadrants) Genitourinary - Female: other (no f/c) Musculoskeletal: nl extremities to inspection Extremities: normal pulses, edema (BLE), pitting pedal edema Neurological: MATHEMATICS LECTURER II-XII intact, nl mental status, nl speech Skin: nl turgor, ecchymosis (scattered); No rash or lesions Results Result Diagram: 06/28/18 0646 06/27/18 0553 Results 24hrs Laboratory Tests Test 06/28/18 06:46 White Blood Count 5.1 Red Blood Count 2.53 L Hemoglobin 7.8 L Hematocrit 24.7 L Mean Corpuscular Volume 97.6 Mean Corpuscular Hemoglobin 30.8 Mean Corpuscular Hemoglobin Concent 31.6 L Red Cell Distribution Width 16.8 H Platelet Count 247 Mean Platelet Volume 9.6 Immature Granulocytes % 5.100 H Neutrophils % Segmented Neutrophils % (Manual) 66 Band Neutrophils % (Manual) 5 H Lymphocytes % Lymphocytes % (Manual) 18 Reactive Lymphocytes % (Manual) 4 H Monocytes % Monocytes % (Manual) 4 Eosinophils % Eosinophils % (Manual) 1 Basophils % Metamyelocytes % (manual) 1 H Myelocytes % (Manual) 1 H Nucleated Red Blood Cells % 2 H Immature Granulocytes # 0.260 H Neutrophils # Neutrophils # (Manual) 3.4 Band Neutrophils # 0.2 Lymphocytes (Manual) 0.9 Lymphocytes # Reactive Lymphocytes # 0.2 H Monocytes # Monocytes # (Manual) 0.2 L Eosinophils # Basophils # Metamyelocytes # 0.0 Myelocytes # 0.0 Nucleated Red Blood Cells # Platelet Estimate NORMAL Polychromasia 3+ Anisocytosis 1+ Microcytosis 1+ Prothrombin Time 28.0 H Prothrombin Time Ratio 2.2 INR International Normalized Ratio 2.61 Medications Medication Current Medications Levothyroxine Sodium (Synthroid) 50 mcg BEFORE BREAKFAST PO Last administered on 06/28/18 06:08; Admin Dose 50 MCG; Start 05/30/18 at 07:00 Mometasone Furoate (Asmanex) 1 puff DAILY INH Last administered on 06/28/18 09:46; Admin Dose 1 PUFF; Start 05/29/18 at 11:00 Atorvastatin Calcium (Lipitor) 10 mg DAILY@21 PO Last administered on 06/27/18 20:59; Admin Dose 10 MG; Start 05/29/18 at 21:00 Latanoprost (Xalatan) 1 drop HS BOTH EYES Last administered on 06/27/18 21:05; Admin Dose 1 DROP; Start 06/01/18 at 21:00 Amlodipine Besylate (Norvasc) 5 mg DAILY PO ; Start 06/03/18 at 09:00; Status H old Pantoprazole (Protonix Tab) 40 mg DAILY@06 PO Last administered on 06/28/18 06:08; Admin Dose 40 MG; Start 06/05/18 at 06:00 Metoclopramide HCl (Reglan) 5 mg TID PRN IV Nausea; Start 06/06/18 at 11:00 Polyethylene Glycol (Miralax) 17 gm BID PRN PO CONSTIPATION; Start 06/06/18 at 14:00 Bisacodyl (Dulcolax Supp) 10 mg DAILY PRN [place] CONSTIPATION; Start 06/06/18 at 14:00 IV Flush (NS 10 ml) 10 ml PRN PRN IV IV PROTOCOL; Start 06/06/18 at 16:00 Nystatin (Nystatin Susp) 5 ml QID PO Last administered on 06/28/18at 13:20; Admin Dose 5 ML; Start 06/06/18 at 17:00 Metoprolol Tartrate (Lopressor) 25 mg BID PO Last administered on 06/28/18 09:45; Admin Dose 25 MG; Start 06/13/18 at 21:00 Metoprolol Tartrate (Lopressor) 5 mg Q4H PRN IV HR>110 Hold SBP<100; Start 06/13/18 at 10:30 Morphine Sulfate (morphine) 6 mg Q2H PRN PO FOR NON CARDIAC PAIN (4-10); Start 06/13/18 at 11:30 Docusate Sodium (Colace) 100 mg DAILY PRN PO CONSTIPATION; Start 06/21/18 at 12:00 Warfarin Sodium (Coumadin) 5 mg DAILY@17 PO Last administered on 06/27/18at 17:45; Admin Dose 5 MG; Start 06/21/18 at 17:00 Miscellaneous Information (Pending [facility] Order For Wound Care) This patient fournier... PRN PRN XX WOUND CARE; Start 06/21/18 at 16:00 Amiodarone HCl (Cordarone) 200 mg BID PO Last administered on 06/28/18at 09:45; Admin Dose 200 MG; Start 06/22/18 at 21:00 Bumetanide (Bumex) 1 mg DAILY@0600 PO Last administered on 06/28/18at 06:08; Admin Dose 1 MG; Start 06/25/18 at 06:00 Miscellaneous Information (*Order Clarification Bulletin) MEDICATION REQUIRES CLARIFICATION:PLE... Q8H XX ; Start 06/26/18 at 12:00 WILIAM HUI NP Jun 28, 2018 16:02
--- NOTE | 2018-06-28 16:10 | CONS ---
Assessment/Plan Assessment/Plan Hospital Course (Demo Recall) emr reviewed. care coordinated with binding bench worker and care directed. Consultation Date/Type/Reason Admit Date/Time May 28, 2018 at 17:52 Initial Consult Date 06/03/18 Type of Consult ID Requesting Provider: JULY VALENTIN MD Date/Time of Note DATE: 06/28/18 TIME: 16:10 Exam/Review of Systems Exam Vitals Vital Signs Date Temp Pulse Resp B/P (MAP) Pulse Ox O2 O2 Flow FiO2 Time Delivery Rate 06/28/18 98.1 86 18 119/56 95 16:08 (77) 06/27/18 Room Air 16:12 Intake and Output 06/27/18 06/27/18 06/28/18 1515:00 23:00 07:00 IntakeIntake Total 700 ml 550 ml BalanceBalance 700 ml 550 ml Results Result Diagram: 06/28/18 0646 06/27/18 0553 Results 24hrs Laboratory Tests Test 06/28/18 06:46 White Blood Count 5.1 Red Blood Count 2.53 L Hemoglobin 7.8 L Hematocrit 24.7 L Mean Corpuscular Volume 97.6 Mean Corpuscular Hemoglobin 30.8 Mean Corpuscular Hemoglobin Concent 31.6 L Red Cell Distribution Width 16.8 H Platelet Count 247 Mean Platelet Volume 9.6 Immature Granulocytes % 5.100 H Neutrophils % Segmented Neutrophils % (Manual) 66 Band Neutrophils % (Manual) 5 H Lymphocytes % Lymphocytes % (Manual) 18 Reactive Lymphocytes % (Manual) 4 H Monocytes % Monocytes % (Manual) 4 Eosinophils % Eosinophils % (Manual) 1 Basophils % Metamyelocytes % (manual) 1 H Myelocytes % (Manual) 1 H Nucleated Red Blood Cells % 2 H Immature Granulocytes # 0.260 H Neutrophils # Neutrophils # (Manual) 3.4 Band Neutrophils # 0.2 Lymphocytes (Manual) 0.9 Lymphocytes # Reactive Lymphocytes # 0.2 H Monocytes # Monocytes # (Manual) 0.2 L Eosinophils # Basophils # Metamyelocytes # 0.0 Myelocytes # 0.0 Nucleated Red Blood Cells # Platelet Estimate NORMAL Polychromasia 3+ Anisocytosis 1+ Microcytosis 1+ Prothrombin Time 28.0 H Prothrombin Time Ratio 2.2 INR International Normalized Ratio 2.61 Medications Medication Current Medications Levothyroxine Sodium (Synthroid) 50 mcg BEFORE BREAKFAST PO Last administered on 06/28/18 06:08; Admin Dose 50 MCG; Start 05/30/18 at 07:00 Mometasone Furoate (Asmanex) 1 puff DAILY INH Last administered on 06/28/18at 09:46; Admin Dose 1 PUFF; Start 05/29/18 at 11:00 Atorvastatin Calcium (Lipitor) 10 mg DAILY@21 PO Last administered on 06/27/18at 20:59; Admin Dose 10 MG; Start 05/29/18 at 21:00 Latanoprost (Xalatan) 1 drop HS BOTH EYES Last administered on 06/27/18at 21:05; Admin Dose 1 DROP; Start 06/01/18 at 21:00 Amlodipine Besylate (Norvasc) 5 mg DAILY PO ; Start 06/03/18 at 09:00; Status Hold Pantoprazole (Protonix Tab) 40 mg DAILY@06 PO Last administered on 06/28/18 06:08; Admin Dose 40 MG; Start 06/05/18 at 06:00 Metoclopramide HCl (Reglan) 5 mg TID PRN IV Nausea; Start 06/06/18 at 11:00 Polyethylene Glycol (Miralax) 17 gm BID PRN PO CONSTIPATION; Start 06/06/18 at 14:00 Bisacodyl (Dulcolax Supp) 10 mg DAILY PRN [place] CONSTIPATION; Start 06/06/18 at 14:00 IV Flush (NS 10 ml) 10 ml PRN PRN IV IV PROTOCOL; Start 06/06/18 at 16:00 Nystatin (Nystatin Susp) 5 ml QID PO Last administered on 06/28/18at 13:20; Admin Dose 5 ML; Start 06/06/18 at 17:00 Metoprolol Tartrate (Lopressor) 25 mg BID PO Last administered on 06/28/18at 09:45; Admin Dose 25 MG; Start 06/13/18 at 21:00 Metoprolol Tartrate (Lopressor) 5 mg Q4H PRN IV HR>110 Hold SBP<100; Start 06/13/18 at 10:30 Morphine Sulfate (morphine) 6 mg Q2H PRN PO FOR NON CARDIAC PAIN (4-10); Start 06/13/18 at 11:30 Docusate Sodium (Colace) 100 mg DAILY PRN PO CONSTIPATION; Start 06/21/18 at 12:00 Warfarin Sodium (Coumadin) 5 mg DAILY@17 PO Last administered on 06/27/18at 1 7:45; Admin Dose 5 MG; Start 06/21/18 at 17:00 Miscellaneous Information (Pending Santyl Order For Wound Care) This patient gomes... PRN PRN XX WOUND CARE; Start 06/21/18 at 16:00 Amiodarone HCl (Cordarone) 200 mg BID PO Last administered on 06/28/18at 09:45; Admin Dose 200 MG; Start 06/22/18 at 21:00 Bumetanide (Bumex) 1 mg DAILY@0600 PO Last administered on 06/28/18at 06:08; Admin Dose 1 MG; Start 06/25/18 at 06:00 Miscellaneous Information (*Order Clarification Bulletin) MEDICATION REQUIRES CLARIFICATION:PLE... Q8H XX ; Start 06/26/18 at 12:00 MARSHA IYER MD Jun 28, 2018 16:10
[2018-06-28] MEDS: WARFARIN 5 MG TAB PO SCH (17:02)
--- NOTE | 2018-06-28 17:56 | CONS ---
Consult Date/Type/Reason Admit Date/Time May 28, 2018 at 17:52 Initial Consult Date 06/03/18 Type of Consultation: Urology Reason for Consultation Urinary incontinence Requesting Provider: JULY VALENTIN MD Date/Time of Note DATE: 06/28/18 TIME: 17:51 Subjective Patient states she is feeling better. She is getting physical therapy. She only can walk 100 feet. In the morning she states that the urine comes out without her noticing it. Objective Vitals Vital Signs Date Temp Pulse Resp B/P (MAP) Pulse Ox O2 O2 Flow FiO2 Time Delivery Rate 06/28/18 78 16:14 06/28/18 98.1 18 119/56 95 16:08 (77) 06/27/18 Room Air 16:12 Intake and Output 06/27/18 06/27/18 06/28/18 1515:00 23:00 07:00 IntakeIntake Total 700 ml 550 ml BalanceBalance 700 ml 550 ml Exam She still have a residual mass in the suprapubic area from the hematoma. Results/Medications Result Diagram: 06/28/18 0646 06/27/18 0553 Results 24 hrs Laboratory Tests Test 06/28/18 06:46 White Blood Count 5.1 Red Blood Count 2.53 L Hemoglobin 7.8 L Hematocrit 24.7 L Mean Corpuscular Volume 97.6 Mean Corpuscular Hemoglobin 30.8 Mean Corpuscular Hemoglobin Concent 31.6 L Red Cell Distribution Width 16.8 H Platelet Count 247 Mean Platelet Volume 9.6 Immature Granulocytes % 5.100 H Neutrophils % Segmented Neutrophils % (Manual) 66 Band Neutrophils % (Manual) 5 H Lymphocytes % Lymphocytes % (Manual) 18 Reactive Lymphocytes % (Manual) 4 H Monocytes % Monocytes % (Manual) 4 Eosinophils % Eosinophils % (Manual) 1 Basophils % Metamyelocytes % (manual) 1 H Myelocytes % (Manual) 1 H Nucleated Red Blood Cells % 2 H Immature Granulocytes # 0.260 H Neutrophils # Neutrophils # (Manual) 3.4 Band Neutrophils # 0.2 Lymphocytes (Manual) 0.9 Lymphocytes # Reactive Lymphocytes # 0.2 H Monocytes # Monocytes # (Manual) 0.2 L Eosinophils # Basophils # Metamyelocytes # 0.0 Myelocytes # 0.0 Nucleated Red Blood Cells # Platelet Estimate NORMAL Polychromasia 3+ Anisocytosis 1+ Microcytosis 1+ Prothrombin Time 28.0 H Prothrombin Time Ratio 2.2 INR International Normalized Ratio 2.61 Home Meds Reported Medications Albuterol Sulfate* (Ventolin HFA*) 18 Gm Hfa.aer.ad, 2 PUFF INHALATION Q4H, #1 INHALER 05/26/18 Ergocalciferol (Vitamin D2) (VITAMIN D2) 50,000 Unit Capsule, 01688 UNIT PO [id number], CAP 05/23/18 Warfarin Sodium* (Coumadin*) 5 Mg Tablet, 5 MG PO Q TUES,THUR,SAT, TAB 05/23/18 Warfarin Sodium* (Coumadin*) 4 Mg Tablet, 4 MG PO Q MON,WED,FRI,SUN, TAB 05/23/18 Furosemide* (Furosemide*) 20 Mg Tablet, 20 MG PO DAILY, #60 TAB TAKE Q 2 DAYS 05/23/18 Simvastatin* (Zocor*) 20 Mg Tablet, 20 MG PO QHS, #30 TAB 05/23/18 Ranitidine Hcl* (Ranitidine Hcl*) 150 Mg Tablet, 150 MG PO HS, #30 TAB 05/23/18 Acetaminophen (Mapap) 500 Mg Capsule, 500 MG PO BID PRN for PAIN, CAP 05/23/18 Levothyroxine Sodium* (Levothyroxine Sodium*) 50 Mcg Tablet, 50 MCG PO BEFORE BREAKFAST, #30 TAB 05/23/18 Spironolactone* (Aldactone*) 25 Mg Tablet, 25 MG PO DAILY, #30 TAB 05/23/18 Beclomethasone Dipropionate (Qvar Redihaler (40 MCG)) 10.6 Gm Hfa.aeroba, 10.6 GM IH DAILY, INH 05/23/18 Amlodipine Besylate* (Norvasc*) 5 Mg Tablet, 5 MG PO BID, TAB 05/23/18 Losartan-Hydrochlorothiazide (Losartan-HCTZ) 100-25 Mg Tab, 1 TAB PO DAILY, TAB 05/23/18 Medications Current Medications Levothyroxine Sodium (Synthroid) 50 mcg BEFORE BREAKFAST PO Last administered on 06/28/18at 06:08; Admin Dose 50 MCG; Start 05/30/18 at 07:00 Mometasone Furoate (Asmanex) 1 puff DAILY INH Last administered on 06/28/18at 0 9:46; Admin Dose 1 PUFF; Start 05/29/18 at 11:00 Atorvastatin Calcium (Lipitor) 10 mg DAILY@21 PO Last administered on 06/27/18at 20:59; Admin Dose 10 MG; Start 05/29/18 at 21:00 Latanoprost (Xalatan) 1 drop HS BOTH EYES Last administered on 06/27/18at 21:05; Admin Dose 1 DROP; Start 06/01/18 at 21:00 Amlodipine Besylate (Norvasc) 5 mg DAILY PO ; Start 06/03/18 at 09:00; Status Hold Pantoprazole (Protonix Tab) 40 mg DAILY@06 PO Last administered on 06/28/18at 06:08; Admin Dose 40 MG; Start 06/05/18 at 06:00 Metoclopramide HCl (Reglan) 5 mg TID PRN IV Nausea; Start 06/06/18 at 11:00 Polyethylene Glycol (Miralax) 17 gm BID PRN PO CONSTIPATION; Start 06/06/18 at 14:00 Bisacodyl (Dulcolax Supp) 10 mg DAILY PRN [place] CONSTIPATION; Start 06/06/18 at 14:00 IV Flush (NS 10 ml) 10 ml PRN PRN IV IV PROTOCOL; Start 06/06/18 at 16:00 Nystatin (Nystatin Susp) 5 ml QID PO Last administered on 06/28/18at 17:02; Admin Dose 5 ML; Start 06/06/18 at 17:00 Metoprolol Tartrate (Lopressor) 25 mg BID PO Last administered on 06/28/18at 09:45; Admin Dose 25 MG; Start 06/13/18 at 21:00 Metoprolol Tartrate (Lopressor) 5 mg Q4H PRN IV HR>110 Hold SBP<100; Start 06/13/18 at 10:30 Morphine Sulfate (morphine) 6 mg Q2H PRN PO FOR NON CARDIAC PAIN (4-10); Start 06/13/18 at 11:30 Docusate Sodium (Colace) 100 mg DAILY PRN PO CONSTIPATION; Start 06/21/18 at 12:00 Warfarin Sodium (Coumadin) 5 mg DAILY@17 PO Last administered on 06/28/18at 17:02; Admin Dose 5 MG; Start 06/21/18 at 17:00 Miscellaneous Information (Pending [facility] Order For Wound Care) This patient gomes... PRN PRN XX WOUND CARE; Start 06/21/18 at 16:00 Amiodarone HCl (Cordarone) 200 mg BID PO Last administered on 06/28/18at 09:45; Admin Dose 200 MG; Start 06/22/18 at 21:00 Bumetanide (Bumex) 1 mg DAILY@0600 PO Last administered on 06/28/18at 06:08; Admin Dose 1 MG; Start 06/25/18 at 06:00 Miscellaneous Information (*Order Clarification Bulletin) MEDICATION REQUIRES CLARIFICATION:PLE... Q8H XX ; Start 06/26/18 at 12:00 Assessment/Plan Hospital Course (Demo Recall) 62-year-old female underwent coronary angiogram. 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 I did insert the catheter for her and she was anuric. Since then she has improved and has been making urine and the urine is clear. The Mensah catheter has been removed and she has been voiding frequently on her own. She has been incontinent however and using the diaper as she cannot go to the bathroom. She was checked for postvoid residual and she is not in urinary retention or overflowing. She still have pressure on the bladder from the pelvic hematoma that she has. That will gradually improve and it is improving. Continue the present treatment JOAQUIN DE LEON MD Jun 28, 2018 17:56
--- NOTE | 2018-06-28 18:46 | PN ---
Date/Time of Note Date/Time of Note DATE: 06/28/18 TIME: 18:44 Assessment/Plan VTE Prophylaxis Risk score (from Nsg)>0 risk: 5 SCD applied (from Nsg): Yes Pharmacological prophylaxis: warfarin tx Lines/Catheters IV Catheter Type (from Nrsg): PICC Line Central line still needed: Yes Urinary Cath still in place: No Assessment/Plan Hospital Course INR is 2.62, continue current dose of Coumadin, patient is able to work with PT, pending authorization for acute rehab. Patient's condition plan of care discussed with patient and patient's at the bedside. Hemoglobin is 7.8 which was drawn from the central line, repeat H&H tomorrow. Assessment/Plan -Nose/oropharyngeal bleed on 06/11/2018, stopped after heparin was held. -Recent retroperitoneal bleed secondary to vascular injury status post stent placement. Monitor H and H. S/p eval by Dr. Kilpatrick, vascular surgery consultation. Observe. -Leukocytosis, resolved. Dr. Castellanos is following in infection disease consultation. Patient is off antibiotics. -Status post left heart catheterization with no significant obstructive coronary artery disease by Dr. Moreno on 05/27/2018. -Anemia of acute blood loss, status post blood transfusion, continue to monitor hemoglobin and hematocrit. -Urinary incontinence. Dr. Ashford is following in urology consultation. -Acute illness myopathy -Status post mitral valve replacement with mechanical valve in 1999 in [facility]. Continue Coumadin, monitor PT/INR. -HTN, continue metoprolol -Hyperlipidemia -Hypothyroidism, continue levothyroxine -History of asthma Further recommendations based on clinical course. Plan of care discussed with Dr. Painter. Result Diagram: 06/28/18 0646 06/27/18 0553 Results 24hrs Laboratory Tests Test 06/28/18 06:46 White Blood Count 5.1 Red Blood Count 2.53 L Hemoglobin 7.8 L Hematocrit 24.7 L Mean Corpuscular Volume 97.6 Mean Corpuscular Hemoglobin 30.8 Mean Corpuscular Hemoglobin Concent 31.6 L Red Cell Distribution Width 16.8 H Platelet Count 247 Mean Platelet Volume 9.6 Immature Granulocytes % 5.100 H Neutrophils % Segmented Neutrophils % (Manual) 66 Band Neutrophils % (Manual) 5 H Lymphocytes % Lymphocytes % (Manual) 18 Reactive Lymphocytes % (Manual) 4 H Monocytes % Monocytes % (Manual) 4 Eosinophils % Eosinophils % (Manual) 1 Basophils % Metamyelocytes % (manual) 1 H Myelocytes % (Manual) 1 H Nucleated Red Blood Cells % 2 H Immature Granulocytes # 0.260 H Neutrophils # Neutrophils # (Manual) 3.4 Band Neutrophils # 0.2 Lymphocytes (Manual) 0.9 Lymphocytes # Reactive Lymphocytes # 0.2 H Monocytes # Monocytes # (Manual) 0.2 L Eosinophils # Basophils # Metamyelocytes # 0.0 Myelocytes # 0.0 Nucleated Red Blood Cells # Platelet Estimate NORMAL Polychromasia 3+ Anisocytosis 1+ Microcytosis 1+ Prothrombin Time 28.0 H Prothrombin Time Ratio 2.2 INR International Normalized Ratio 2.61 Exam/Review of Systems Exam Vitals Vital Signs Date Temp Pulse Resp B/P (MAP) Pulse Ox O2 O2 Flow FiO2 Time Delivery Rate 06/28/18 78 16:14 06/28/18 98.1 18 119/56 95 16:08 (77) 06/27/18 Room Air 16:12 Intake and Output 06/27/18 06/27/18 06/28/18 1515:00 23:00 07:00 IntakeIntake Total 700 ml 550 ml BalanceBalance 700 ml 550 ml Exam Constitutional: alert, oriented Respiratory: clear to auscultation Cardiovascular: regular rate and rhythm Gastrointestinal: soft, non-tender Musculoskeletal: nl extremities to inspection Extremities: normal pulses Neurological: nl mental status Results Results 24hrs Laboratory Tests Test 06/28/18 06:46 White Blood Count 5.1 Red Blood Count 2.53 L Hemoglobin 7.8 L Hematocrit 24.7 L Mean Corpuscular Volume 97.6 Mean Corpuscular Hemoglobin 30.8 Mean Corpuscular Hemoglobin Concent 31.6 L Red Cell Distribution Width 16.8 H Platelet Count 247 Mean Platelet Volume 9.6 Immature Granulocytes % 5.100 H Neutrophils % Segmented Neutrophils % (Manual) 66 Band Neutrophils % (Manual) 5 H Lymphocytes % Lymphocytes % (Manual) 18 Reactive Lymphocytes % (Manual) 4 H Monocytes % Monocytes % (Manual) 4 Eosinophils % Eosinophils % (Manual) 1 Basophils % Metamyelocytes % (manual) 1 H Myelocytes % (Manual) 1 H Nucleated Red Blood Cells % 2 H Immature Granulocytes # 0.260 H Neutrophils # Neutrophils # (Manual) 3.4 Band Neutrophils # 0.2 Lymphocytes (Manual) 0.9 Lymphocytes # Reactive Lymphocytes # 0.2 H Monocytes # Monocytes # (Manual) 0.2 L Eosinophils # Basophils # Metamyelocytes # 0.0 Myelocytes # 0.0 Nucleated Red Blood Cells # Platelet Estimate NORMAL Polychromasia 3+ Anisocytosis 1+ Microcytosis 1+ Prothrombin Time 28.0 H Prothrombin Time Ratio 2.2 INR International Normalized Ratio 2.61 Medications Medication Current Medications Levothyroxine Sodium (Synthroid) 50 mcg BEFORE BREAKFAST PO Last administered on 06/28/18 06:08; Admin Dose 50 MCG; Start 05/30/18 at 07:00 Mometasone Furoate (Asmanex) 1 puff DAILY INH Last administered on 06/28/18 09:46; Admin Dose 1 PUFF; Start 05/29/18 at 11:00 Atorvastatin Calcium (Lipitor) 10 mg DAILY@21 PO Last administered on 06/27/18 20:59; Admin Dose 10 MG; Start 05/29/18 at 21:00 Latanoprost (Xalatan) 1 drop HS BOTH EYES Last administered on 06/27/18 21:05; Admin Dose 1 DROP; Start 06/01/18 at 21:00 Amlodipine Besylate (Norvasc) 5 mg DAILY PO ; Start 06/03/18 at 09:00; Status Hold Pantoprazole (Protonix Tab) 40 mg DAILY@06 PO Last administered on 06/28/18 06:08; Admin Dose 40 MG; Start 06/05/18 at 06:00 Metoclopramide HCl (Reglan) 5 mg TID PRN IV Nausea; Start 06/06/18 at 11:00 Polyethylene Glycol (Miralax) 17 gm BID PRN PO CONSTIPATION; Start 06/06/18 at 14:00 Bisacodyl (Dulcolax Supp) 10 mg DAILY PRN [place] CONSTIPATION; Start 06/06/18 at 14:00 IV Flush (NS 10 ml) 10 ml PRN PRN IV IV PROTOCOL; Start 06/06/18 at 16:00 Nystatin (Nystatin Susp) 5 ml QID PO Last administered on 06/28/18 17:02; Admin Dose 5 ML; Start 06/06/18 at 17:00 Metoprolol Tartrate (Lopressor) 25 mg BID PO Last administered on 06/28/18 09:45; Admin Dose 25 MG; Start 06/13/18 at 21:00 Metoprolol Tartrate (Lopressor) 5 mg Q4H PRN IV HR>110 Hold SBP<100; Start 06/13/18 at 10:30 Morphine Sulfate (morphine) 6 mg Q2H PRN PO FOR NON CARDIAC PAIN (4-10); Start 06/13/18 at 11:30 Docusate Sodium (Colace) 100 mg DAILY PRN PO CONSTIPATION; Start 06/21/18 at 12:00 Warfarin Sodium (Coumadin) 5 mg DAILY@17 PO Last administered on 06/28/18at 17:02; Admin Dose 5 MG; Start 06/21/18 at 17:00 Miscellaneous Information (Pending [facility] Order For Wound Care) This patient gomes... PRN PRN XX WOUND CARE; Start 06/21/18 at 16:00 Amiodarone HCl (Cordarone) 200 mg BID PO Last administered on 06/28/18at 09:45; Admin Dose 200 MG; Start 06/22/18 at 21:00 Bumetanide (Bumex) 1 mg DAILY@0600 PO Last administered on 06/28/18at 06:08; Admin Dose 1 MG; Start 06/25/18 at 06:00 Miscellaneous Information (*Order Clarification Bulletin) MEDICATION REQUIRES CLARIFICATION:PLE... Q8H XX ; Start 06/26/18 at 12:00 KRISTY MCCULLOUGH Jun 28, 2018 18:46
[2018-06-28] MEDS: LATANOPROST 0.005% 2.5 ML OPH BOTH EYES SCH (20:50)
[2018-06-28] MEDS: ATORVASTATIN 10 MG TAB PO SCH (20:50)
[2018-06-29] VITALS (10 sets, daily range): BP systolic 115–136; BP diastolic 55–60; PULSE 72–95; RESP 18–19
[2018-06-29] MEDS: BUMETANIDE 1 MG TAB PO SCH (06:39)
[2018-06-29] MEDS: LEVOTHYROXINE 50 MCG TAB PO SCH (06:39)
[2018-06-29] MEDS: PANTOPRAZOLE (EC) 40 MG TAB PO SCH (06:39)
--- NOTE | 2018-06-29 08:20 | CONS ---
Consult Date/Type/Reason Admit Date/Time May 28, 2018 at 17:52 Initial Consult Date 06/03/18 Type of Consultation: Urology Reason for Consultation Urinary incontinence Requesting Provider: JULY VALENTIN MD Date/Time of Note DATE: 06/29/18 TIME: 08:16 Subjective Patient is feeling better, she is voiding and the sheath of the bed Objective Vitals Vital Signs Date Temp Pulse Resp B/P (MAP) Pulse Ox O2 O2 Flow FiO2 Time Delivery Rate 06/29/18 98.2 94 19 136/60 94 07:36 (85) 06/27/18 Room Air 16:12 Intake and Output 06/28/18 06/28/18 06/29/18 1515:00 23:00 07:00 IntakeIntake Total 1400 ml BalanceBalance 1400 ml Exam The abdomen is soft except for the suprapubic area where she still has a mass that corresponds to the hematoma Results/Medications Result Diagram: 06/28/18 0646 06/27/18 0553 Results 24 hrs Laboratory Tests Test 06/29/18 07:28 White Blood Count Pending Red Blood Count Pending Hemoglobin Pending Hematocrit Pending Mean Corpuscular Volume Pending Mean Corpuscular Hemoglobin Pending Mean Corpuscular Hemoglobin Concent Pending Red Cell Distribution Width Pending Platelet Count Pending Mean Platelet Volume Pending Home Meds Reported Medications Albuterol Sulfate* (Ventolin HFA*) 18 Gm Hfa.aer.ad, 2 PUFF INHALATION Q4H, #1 INHALER 05/26/18 Ergocalciferol (Vitamin D2) (VITAMIN D2) 50,000 Unit Capsule, 40277 UNIT PO [id number], CAP 05/23/18 Warfarin Sodium* (Coumadin*) 5 Mg Tablet, 5 MG PO Q TUES,THUR,SAT, TAB 05/23/18 Warfarin Sodium* (Coumadin*) 4 Mg Tablet, 4 MG PO Q MON,WED,FRI,SUN, TAB 05/23/18 Furosemide* (Furosemide*) 20 Mg Tablet, 20 MG PO DAILY, #60 TAB TAKE Q 2 DAYS 05/23/18 Simvastatin* (Zocor*) 20 Mg Tablet, 20 MG PO QHS, #30 TAB 05/23/18 Ranitidine Hcl* (Ranitidine Hcl*) 150 Mg Tablet, 150 MG PO HS, #30 TAB 05/23/18 Acetaminophen (Mapap) 500 Mg Capsule, 500 MG PO BID PRN for PAIN, CAP 05/23/18 Levothyroxine Sodium* (Levothyroxine Sodium*) 50 Mcg Tablet, 50 MCG PO BEFORE BREAKFAST, #30 TAB 05/23/18 Spironolactone* (Aldactone*) 25 Mg Tablet, 25 MG PO DAILY, #30 TAB 05/23/18 Beclomethasone Dipropionate (Qvar Redihaler (40 MCG)) 10.6 Gm Hfa.aeroba, 10.6 GM IH DAILY, INH 05/23/18 Amlodipine Besylate* (Norvasc*) 5 Mg Tablet, 5 MG PO BID, TAB 05/23/18 Losartan-Hydrochlorothiazide (Losartan-HCTZ) 100-25 Mg Tab, 1 TAB PO DAILY, TAB 05/23/18 Medications Current Medications Levothyroxine Sodium (Synthroid) 50 mcg BEFORE BREAKFAST PO Last administered on 06/29/18at 06:39; Admin Dose 50 MCG; Start 05/30/18 at 07:00 Mometasone Furoate (Asmanex) 1 puff DAILY INH Last administered on 06/28/18at 09:46; Admin Dose 1 PUFF; Start 05/29/18 at 11:00 Atorvastatin Calcium (Lipitor) 10 mg DAILY@21 PO Last administered on 06/28/18at 20:50; Admin Dose 10 MG; Start 05/29/18 at 21:00 Latanoprost (Xalatan) 1 drop HS BOTH EYES Last administered on 06/28/18at 20:50; Admin Dose 1 DROP; Start 06/01/18 at 21:00 Amlodipine Besylate (Norvasc) 5 mg DAILY PO ; Start 06/03/18 at 09:00; Status Hold Pantoprazole (Protonix Tab) 40 mg DAILY@06 PO Last administered on 06/29/18at 06:39; Admin Dose 40 MG; Start 06/05/18 at 06:00 Metoclopramide HCl (Reglan) 5 mg TID PRN IV Nausea; Start 06/06/18 at 11:00 Polyethylene Glycol (Miralax) 17 gm BID PRN PO CONSTIPATION; Start 06/06/18 at 14:00 Bisacodyl (Dulcolax Supp) 10 mg DAILY PRN [place] CONSTIPATION; Start 06/06/18 at 14:00 IV Flush (NS 10 ml) 10 ml PRN PRN IV IV PROTOCOL; Start 06/06/18 at 16:00 Nystatin (Nystatin Susp) 5 ml QID PO Last administered on 06/28/18at 20:50; Admin Dose 5 ML; Start 06/06/18 at 17:00 Metoprolol Tartrate (Lopressor) 25 mg BID PO Last administered on 06/28/18at 09:45; Admin Dose 25 MG; Start 06/13/18 at 21:00 Metoprolol Tartrate (Lopressor) 5 mg Q4H PRN IV HR>110 Hold SBP<100; Start 06/13/18 at 10:30 Morphine Sulfate (morphine) 6 mg Q2H PRN PO FOR NON CARDIAC PAIN (4-10); Start 06/13/18 at 11:30 Docusate Sodium (Colace) 100 mg DAILY PRN PO CONSTIPATION; Start 06/21/18 at 12:00 Warfarin Sodium (Coumadin) 5 mg DAILY@17 PO Last administered on 06/28/18at 17:02; Admin Dose 5 MG; Start 06/21/18 at 17:00 Miscellaneous Information (Pending Santyl Order For Wound Care) This patient gomes... PRN PRN XX WOUND CARE; Start 06/21/18 at 16:00 Amiodarone HCl (Cordarone) 200 mg BID PO Last administered on 06/28/18at 20:50; Admin Dose 200 MG; Start 06/22/18 at 21:00 Bumetanide (Bumex) 1 mg DAILY@0600 PO Last administered on 06/29/18at 06:39; Admin Dose 1 MG; Start 06/25/18 at 06:00 Miscellaneous Information (*Order Clarification Bulletin) MEDICATION REQUIRES CLARIFICATION:PLE... Q8H XX ; Start 06/26/18 at 12:00 Assessment/Plan Hospital Course (Demo Recall) 62-year-old female underwent coronary angiogram. 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 I did insert the catheter for her and she was anuric. Since then she has improved and has been making urine and the urine is clear. The Mensah catheter has been removed and she has been voiding frequently on her own. She has been incontinent however and using the diaper as she cannot go to the bathroom. She was checked for postvoid residual and she is not in urinary retention or overflowing. She continues to have a mass in the suprapubic area that corresponds to the hematoma. That is less painful. She will need a repeat of the CT scan or pelvic ultrasound later on to see if the hematoma is liquefied to where it may be drained? JOAQUIN DE LEON MD Jun 29, 2018 08:20
--- NOTE | 2018-06-29 08:57 | PN ---
DATE: 06/29/2018 SUBJECTIVE: The patient is stable, no events overnight. OBJECTIVE: VITAL SIGNS: Blood pressure is 136/60, pulse 74, respirations 19, temperature 98.2. HEENT: Head is normocephalic. NECK: Supple. HEART: Regular rate. LUNGS: Show diminished breath sounds at the base. ABDOMEN: Soft, nontender to palpation without rebound or guarding. EXTREMITIES: Negative for clubbing, cyanosis, no edema. DERMATOLOGIC: No rashes. MUSCULOSKELETAL: No joint effusion. NEUROLOGIC: No change in exam. MEDICATIONS: Reviewed. LABORATORY DATA: Reviewed. ASSESSMENT AND PLAN: 1. Nonoliguric acute kidney injury with previously normal baseline creatinine of 0.6 mg/dL. Etiolog y of acute kidney injury is secondary to acute tubular necrosis. Renal function is improving. Rere nue to monitor. 2. Volume overload, improved. Continue low-dose diuretic therapy. 3. Hypernatremia, resolved. 4. Hypomagnesemia. Continue to monitor and replete as needed. 5. Anemia. Continue to monitor hemoglobin and hematocrit levels. 6. Coronary artery disease. Continue medical management. 7. Mechanical heart valve. Continue anticoagulation per cardiology. 8. Sepsis secondary to urinary tract infection. The patient is completing antibiotic course. 9. Hypothyroidism. Continue Synthroid. 10. Dyslipidemia. Continue statin therapy. 11. Hypertension. Continue current blood pressure regimen. 12. Intraabdominal hematoma. Dictated By: GWYN FABIAN DO NR/NTS Conf#: [id number] DID#: [id number] CC: JOAQUIN DE LEON MD; CHRIS LAZAR MD; JULY VALENTIN MD;*EndCC*
[2018-06-29] MEDS: NYSTATIN SUSP 5 ML CUP PO SCH ×4 (09:51→20:57)
[2018-06-29] MEDS: METOPROLOL 25 MG TAB PO SCH ×2 (09:51→20:57)
[2018-06-29] MEDS: AMIODARONE 200 MG TAB PO SCH ×2 (09:51→20:57)
[2018-06-29] MEDS: MOMETASONE 0.24 GM INHALER INH SCH (09:52)
--- NOTE | 2018-06-29 13:27 | CONS ---
Assessment/Plan Assessment/Plan Hospital Course (Demo Recall) IMP: 1.cad s/p LHC with no sig obstructive cad 2.HTN 3.RP Bleed s/p transfusions now stable and tolerating heparin/coumadin loading. Then had recurrent bled overnight now s/p covered stent to YARN DYER/Ext iliac. Stable collection by abd CT 06/06 but still with pigtail catheter in place 4.HL 5.MVR-mechanical 6.anemia- s/p repair of R YARN DYER/illiac. Had hemoptysis with subsequent drop in Hgb again and holding of heparin. Had some mild blood tinged sputum 7.Hypothyroid 8. GOMES-negative Head CT 9. Fevers-with positive ua 10. UTI 11.ARF-? Contrast induced/compression from hematoma- now improving with in creased urine output and slowly decreasing diver tender 12. Coagulopathy-now therapeutic 14. LE weakness-? compression from hematoma and exacerbated by femoral compression after cath-now resolved 15. arterial insuff- LLE- s/p CUT OFF [employer]KS/thrombolysis 06/04 successfully with palpable pulses/B DP/PT and remain that way 16. PAF/AFL-rate controlled 17. Hematuria-resolved at this time 18. Epistaxis-improved 19. Hyponatremia Recc: -Now on tele -Continue BB with well controlled Hr's -Continue statin -s/p course of abx's -ongoing ID f/u -F/U diver tender/K closely with creatnine now normalized and volume status improved. F -Continue coumadin and follow INR closely which is now therapeutic -Follow HGb clsoely which has been stable -PT/ambulation -Continue PO bumex now daily and follow volume status closely -will continue amio bid for now in attempt to return patient to -AWairinb acceptance at rehab facility as per patient family preference would like to do inpatient rehab Consultation Date/Type/Reason Admit Date/Time May 28, 2018 at 17:52 Initial Consult Date 05/28/18 Type of Consult Cardiology Reason for Consultation MVR Requesting Provider: JULY VALENTIN MD Date/Time of Note DATE: 06/29/18 TIME: 13:24 Exam/Review of Systems Vital Signs Vitals Vital Signs Date Temp Pulse Resp B/P (MAP) Pulse Ox O2 O2 Flow FiO2 Time Delivery Rate 06/29/18 72 12:20 06/29/18 99.0 18 118/55 92 11:18 (76) 06/27/18 Room Air 16:12 Intake and Output 06/28/18 06/28/18 06/29/18 1515:00 23:00 07:00 IntakeIntake Total 1400 ml BalanceBalance 1400 ml Exam Exam Review of Systems: CONSTITUTIONAL: No fevers, chills. PULMONARY: No sob CARDIOVASCULAR: No chest pain/palpitations GASTROINTESTINAL: No nausea/vomiting. GENITOURINARY: No hematuria/dysuria. MUSCULOSKELETAL: No myagias/arthalgias. PSYCHIATRIC: The patient denies depression. NEUROLOGIC: No weakness Constitutional: alert Psych: no complaints Head: normocephalic ENMT: mucosa pink and moist Neck: supple, jvd (9 cm water) Respiratory: diminished breath sounds (at bases/B) Cardiovascular: regular rate and rhythm Gastrointestinal: soft, non-tender Musculoskeletal: muscle tone (normal) Extremities: edema (none) Neurological: other (No focal deficits) Labs Result Diagram: 06/29/1872706/29/18727 Results 24hrs Laboratory Tests Test 06/29/18 07:28 White Blood Count 5.0 Red Blood Count 2.67 L Hemoglobin 8.2 L Hematocrit 25.4 L Mean Corpuscular Volume 95.1 Mean Corpuscular Hemoglobin 30.7 Mean Corpuscular Hemoglobin Concent 32.3 Red Cell Distribution Width 16.9 H Platelet Count 243 Mean Platelet Volume 9.5 Immature Granulocytes % 5.000 H Neutrophils % 62.1 Lymphocytes % 24.5 Monocytes % 6.2 Eosinophils % 1.8 Basophils % 0.4 Nucleated Red Blood Cells % 0.0 Immature Granulocytes # 0.250 H Neutrophils # 3.1 Lymphocytes # 1.2 Monocytes # 0.3 Eosinophils # 0.1 Basophils # 0.0 Nucleated Red Blood Cells # 0.0 Prothrombin Time 27.9 H Prothrombin Time Ratio 2.2 INR International Normalized Ratio 2.60 Sodium Level 137 Potassium Level 3.5 Chloride Level 98 Carbon Dioxide Level 32 H Anion Gap 7 Blood Urea Nitrogen 26 H Creatinine 0.77 Est Glomerular Filtrat Rate mL/min > 60 Glucose Level 113 Calcium Level 8.9 Medications Medications Current Medications Levothyroxine Sodium (Synthroid) 50 mcg BEFORE BREAKFAST PO Last administered on 06/29/18at 06:39; Admin Dose 50 MCG; Start 05/30/18 at 07:00 Mometasone Furoate (Asmanex) 1 puff DAILY INH Last administered on 06/29/18at 09:52; Admin Dose 1 PUFF; Start 05/29/18 at 11:00 Atorvastatin Calcium (Lipitor) 10 mg DAILY@21 PO Last administered on 06/28/18at 20:50; Admin Dose 10 MG; Start 05/29/18 at 21:00 Latanoprost (Xalatan) 1 drop HS BOTH EYES Last administered on 06/28/18at 20:50; Admin Dose 1 DROP; Start 06/01/18 at 21:00 Amlodipine Besylate (Norvasc) 5 mg DAILY PO ; Start 06/03/18 at 09:00; Status Hold Pantoprazole (Protonix Tab) 40 mg DAILY@06 PO Last administered on 06/29/18at 06:39; Admin Dose 40 MG; Start 06/05/18 at 06:00 Metoclopramide HCl (Reglan) 5 mg TID PRN IV Nausea; Start 06/06/18 at 11:00 Polyethylene Glycol (Miralax) 17 gm BID PRN PO CONSTIPATION; Start 06/06/18 at 14:00 Bisacodyl (Dulcolax Supp) 10 mg DAILY PRN [place] CONSTIPATION; Start 06/06/18 at 14:00 IV Flush (NS 10 ml) 10 ml PRN PRN IV IV PROTOCOL; Start 06/06/18 at 16:00 Nystatin (Nystatin Susp) 5 ml QID PO Last administered on 06/29/18at 12:53; Admin Dose 5 ML; Start 06/06/18 at 17:00 Metoprolol Tartrate (Lopressor) 25 mg BID PO Last administered on 06/29/18at 09:51; Admin Dose 25 MG; Start 06/13/18 at 21:00 Metoprolol Tartrate (Lopressor) 5 mg Q4H PRN IV HR>110 Hold SBP<100; Start 06/13/18 at 10:30 Morphine Sulfate (morphine) 6 mg Q2H PRN PO FOR NON CARDIAC PAIN (4-10); Start 06/13/18 at 11:30 Docusate Sodium (Colace) 100 mg DAILY PRN PO CONSTIPATION; Start 06/21/18 at 12:00 Warfarin Sodium (Coumadin) 5 mg DAILY@17 PO Last administered on 06/28/18at 17:02; Admin Dose 5 MG; Start 06/21/18 at 17:00 Miscellaneous Information (Pending Santyl Order For Wound Care) This patient gomes... PRN PRN XX WOUND CARE; Start 06/21/18 at 16:00 Amiodarone HCl (Cordarone) 200 mg BID PO Last administered on 06/29/18at 09:51; Admin Dose 200 MG; Start 06/22/18 at 21:00 Bumetanide (Bumex) 1 mg DAILY@0600 PO Last administered on 06/29/18at 06:39; Admin Dose 1 MG; Start 06/25/18 at 06:00 Miscellaneous Information (*Order Clarification Bulletin) MEDICATION REQUIRES CLARIFICATION:PLE... Q8H XX ; Start 06/26/18 at 12:00 CHRIS LAZAR Jun 29, 2018 13:27
--- NOTE | 2018-06-29 16:16 | PN ---
Date/Time of Note Date/Time of Note DATE: 06/29/18 TIME: 16:16 Assessment/Plan VTE [place]phylaxis [place] [facility] [place] risk: 6 SCD applied [place] [facility] [place] Yes SCD contraindicated: other Pharmacological prophylaxis: other Pharm contraindication: other Lines/Catheters IV Catheter Type (from [facility]): PICC Line Central line still needed: Yes Urinary Cath still in place: No Assessment/Plan Assessment/Plan -Nose/oropharyngeal bleed on 06/11/2018, stopped after heparin was held. -Recent retroperitoneal bleed secondary to vascular injury status post stent placement. Monitor H and H. S/p eval by Dr. Kilpatrick, vascular surgery consultation. Observe. -Leukocytosis, resolved. Dr. Castellanos is following in infection disease consu ltation. Patient is off antibiotics. -Status post left heart catheterization with no significant obstructive coronary artery disease by Dr. Moreno on 05/27/2018. -Anemia of acute blood loss, status post blood transfusion, continue to monitor hemoglobin and hematocrit. -Urinary incontinence. Dr. Ashford is following in urology consultation. -Acute illness myopathy -Status post mitral valve replacement with mechanical valve in 1999 in [facility]. Continue Coumadin, monitor PT/INR. -HTN, continue metoprolol -Hyperlipidemia -Hypothyroidism, continue levothyroxine -History of asthma Further recommendations based on clinical course. Plan of care discussed with Dr. Painter. Result Diagram: 06/29/18 0728 06/29/18 0728 Results 24hrs Laboratory Tests Test 06/29/18 07:28 White Blood Count 5.0 Red Blood Count 2.67 L Hemoglobin 8.2 L Hematocrit 25.4 L Mean Corpuscular Volume 95.1 Mean Corpuscular Hemoglobin 30.7 Mean Corpuscular Hemoglobin Concent 32.3 Red Cell Distribution Width 16.9 H Platelet Count 243 Mean Platelet Volume 9.5 Immature Granulocytes % 5.000 H Neutrophils % 62.1 Lymphocytes % 24.5 Monocytes % 6.2 Eosinophils % 1.8 Basophils % 0.4 Nucleated Red Blood Cells % 0.0 Immature Granulocytes # 0.250 H Neutrophils # 3.1 Lymphocytes # 1.2 Monocytes # 0.3 Eosinophils # 0.1 Basophils # 0.0 Nucleated Red Blood Cells # 0.0 Prothrombin Time 27.9 H Prothrombin Time Ratio 2.2 INR International Normalized Ratio 2.60 Sodium Level 137 Potassium Level 3.5 Chloride Level 98 Carbon Dioxide Level 32 H Anion Gap 7 Blood Urea Nitrogen 26 H Creatinine 0.77 Est Glomerular Filtrat Rate mL/min > 60 Glucose Level 113 Calcium Level 8.9 Exam/Review of Systems Exam Vitals Vital Signs Date Temp Pulse Resp B/P (MAP) Pulse Ox O2 O2 Flow FiO2 Time Delivery Rate 06/29/18 85 16:14 06/29/18 97.9 19 116/55 93 15:34 (75) 06/27/18 Room Air 16:12 Intake and Output 06/28/18 06/28/18 06/29/18 1515:00 23:00 07:00 IntakeIntake Total 1400 ml BalanceBalance 1400 ml Constitutional: alert, oriented, well developed Psych: nl mood/affect Head: normocephalic Eyes: EOMI, nl lids Neck: non-tender Respiratory: clear to auscultation Cardiovascular: nl pulses Gastrointestinal: soft Extremities: normal pulses Neurological: nl speech Results Results 24hrs Laboratory Tests Test 06/29/18 07:28 White Blood Count 5.0 Red Blood Count 2.67 L Hemoglobin 8.2 L Hematocrit 25.4 L Mean Corpuscular Volume 95.1 Mean Corpuscular Hemoglobin 30.7 Mean Corpuscular Hemoglobin Concent 32.3 Red Cell Distribution Width 16.9 H Platelet Count 243 Mean Platelet Volume 9.5 Immature Granulocytes % 5.000 H Neutrophils % 62.1 Lymphocytes % 24.5 Monocytes % 6.2 Eosinophils % 1.8 Basophils % 0.4 Nucleated Red Blood Cells % 0.0 Immature Granulocytes # 0.250 H Neutrophils # 3.1 Lymphocytes # 1.2 Monocytes # 0.3 Eosinophils # 0.1 Basophils # 0.0 Nucleated Red Blood Cells # 0.0 Prothrombin Time 27.9 H Prothrombin Time Ratio 2.2 INR International Normalized Ratio 2.60 Sodium Level 137 Potassium Level 3.5 Chloride Level 98 Carbon Dioxide Level 32 H Anion Gap 7 Blood Urea Nitrogen 26 H Creatinine 0.77 Est Glomerular Filtrat Rate mL/min > 60 Glucose Level 113 Calcium Level 8.9 Medications Medication Current Medications Levothyroxine Sodium (Synthroid) 50 mcg BEFORE BREAKFAST PO Last administered on 06/29/18at 06:39; Admin Dose 50 MCG; Start 05/30/18 at 07:00 Mometasone Furoate (Asmanex) 1 puff DAILY INH Last administered on 06/29/18at 09:52; Admin Dose 1 PUFF; Start 05/29/18 at 11:00 Atorvastatin Calcium (Lipitor) 10 mg DAILY@21 PO Last administered on 06/28/18at 20:50; Admin Dose 10 MG; Start 05/29/18 at 21:00 Latanoprost (Xalatan) 1 drop HS BOTH EYES Last administered on 06/28/18at 20:50; Admin Dose 1 DROP; Start 06/01/18 at 21:00 Amlodipine Besylate (Norvasc) 5 mg DAILY PO ; Start 06/03/18 at 09:00; Status Hold Pantoprazole (Protonix Tab) 40 mg DAILY@06 PO Last administered on 06/29/18at 06:39; Admin Dose 40 MG; Start 06/05/18 at 06:00 Metoclopramide HCl (Reglan) 5 mg TID PRN IV Nausea; Start 06/06/18 at 11:00 Polyethylene Glycol (Miralax) 17 gm BID PRN PO CONSTIPATION; Start 06/06/18 at 14:00 Bisacodyl (Dulcolax Supp) 10 mg DAILY PRN [place] CONSTIPATION; Start 06/06/18 at 14:00 IV Flush (NS 10 ml) 10 ml PRN PRN IV IV PROTOCOL; Start 06/06/18 at 16:00 Nystatin (Nystatin Susp) 5 ml QID PO Last administered on 06/29/18at 12:53; Admin Dose 5 ML; Start 06/06/18 at 17:00 Metoprolol Tartrate (Lopressor) 25 mg BID PO Last administered on 06/29/18at 09:51; Admin Dose 25 MG; Start 06/13/18 at 21:00 Metoprolol Tartrate (Lopressor) 5 mg Q4H PRN IV HR>110 Hold SBP<100; Start 06/13/18 at 10:30 Morphine Sulfate (morphine) 6 mg Q2H PRN PO FOR NON CARDIAC PAIN (4-10); Start 06/13/18 at 11:30 Docusate Sodium (Colace) 100 mg DAILY PRN PO CONSTIPATION; Start 06/21/18 at 12:00 Warfarin Sodium (Coumadin) 5 mg DAILY@17 PO Last administered on 06/28/18at 17:02; Admin Dose 5 MG; Start 06/21/18 at 17:00 Miscellaneous Information (Pending Santyl Order For Wound Care) This patient gomes... PRN PRN XX WOUND CARE; Start 06/21/18 at 16:00 Amiodarone HCl (Cordarone) 200 mg BID PO Last administered on 06/29/18at 09:51; Admin Dose 200 MG; Start 06/22/18 at 21:00 Bumetanide (Bumex) 1 mg DAILY@0600 PO Last administered on 06/29/18at 06:39; Admin Dose 1 MG; Start 06/25/18 at 06:00 Miscellaneous Information (*Order Clarification Bulletin) MEDICATION REQUIRES CLARIFICATION:PLE... Q8H XX ; Start 06/26/18 at 12:00 DELICIA MATUTE Jun 29, 2018 16:16
--- NOTE | 2018-06-29 17:10 | CONS ---
Assessment/Plan Assessment/Plan Hospital Course (Demo Recall) - S/p severe sepsis due to UTI, resolved - S/p SIRS due to acute blood loss, resolved - S/p nasopharyngeal bleed on 06/11/2018, resolved - s/p UTI due to E. coli, resolved. 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, s/p covered stent placement 6 x 100 mm right common femoral artery and right external iliac artery, abdominal aortogram, catheter introduction to the abdominal aorta, JOSÉ MIGUEL guidance into the central artery 06/02/2018 - s/p retroperitoneal bleed - s/p acute anemia requiring PRBC - s/p CT guided placement of drainage catheter into pelvic hematoma 06/05/2018-->removed on 06/09/2018 - FORREST, improved - s/p L heart catheterization on 05/27/2018 showing no significant obstructive CAD - CAD s/p CABG in in 1982 - H/o MVR with mechanical valve, in 1999 - cholelithiasis without e/o acute cholecystitis - Hypertension - Hyperlipidemia - Hypothyroidism - asthma - s/p GOMES, resolved. CT head shows no acute findings - venous JOSÉ MIGUEL of b/l LE was negative for DVT Recommendations: - Continue to monitor Pt off systemic antibiotic. - ARU eval in progress Consultation Date/Type/Reason Admit Date/Time May 28, 2018 at 17:52 Initial Consult Date 06/03/18 Type of Consult ID Requesting Provider: JULY VALENTIN MD Date/Time of Note DATE: 06/29/18 TIME: 17:10 Exam/Review of Systems Exam Vitals Vital Signs Date Temp Pulse Resp B/P (MAP) Pulse Ox O2 O2 Flow FiO2 Time Delivery Rate 06/29/18 85 16:14 06/29/18 97.9 19 116/55 93 15:34 (75) 06/27/18 Room Air 16:12 Intake and Output 06/28/18 06/28/18 06/29/18 1414:59 22:59 06:59 IntakeIntake Total 1400 ml BalanceBalance 1400 ml Results Result Diagram: 06/29/18 0728 06/29/18 0728 Results 24hrs Laboratory Tests Test 06/29/18 07:28 White Blood Count 5.0 Red Blood Count 2.67 L Hemoglobin 8.2 L Hematocrit 25.4 L Mean Corpuscular Volume 95.1 Mean Corpuscular Hemoglobin 30.7 Mean Corpuscular Hemoglobin Concent 32.3 Red Cell Distribution Width 16.9 H Platelet Count 243 Mean Platelet Volume 9.5 Immature Granulocytes % 5.000 H Neutrophils % 62.1 Lymphocytes % 24.5 Monocytes % 6.2 Eosinophils % 1.8 Basophils % 0.4 Nucleated Red Blood Cells % 0.0 Immature Granulocytes # 0.250 H Neutrophils # 3.1 Lymphocytes # 1.2 Monocytes # 0.3 Eosinophils # 0.1 Basophils # 0.0 Nucleated Red Blood Cells # 0.0 Prothrombin Time 27.9 H Prothrombin Time Ratio 2.2 INR International Normalized Ratio 2.60 Sodium Level 137 Potassium Level 3.5 Chloride Level 98 Carbon Dioxide Level 32 H Anion Gap 7 Blood Urea Nitrogen 26 H Creatinine 0.77 Est Glomerular Filtrat Rate mL/min > 60 Glucose Level 113 Calcium Level 8.9 Medications Medication Current Medications Levothyroxine Sodium (Synthroid) 50 mcg BEFORE BREAKFAST PO Last administered on 06/29/18at 06:39; Admin Dose 50 MCG; Start 05/30/18 at 07:00 Mometasone Furoate (Asmanex) 1 puff DAILY INH Last administered on 06/29/18at 09:52; Admin Dose 1 PUFF; Start 05/29/18 at 11:00 Atorvastatin Calcium (Lipitor) 10 mg DAILY@21 PO Last administered on 06/28/18at 20:50; Admin Dose 10 MG; Start 05/29/18 at 21:00 Latanoprost (Xalatan) 1 drop HS BOTH EYES Last administered on 06/28/18at 20:50; Admin Dose 1 DROP; Start 06/01/18 at 21:00 Amlodipine Besylate (Norvasc) 5 mg DAILY PO ; Start 06/03/18 at 09:00; Status Hold Pantoprazole (Protonix Tab) 40 mg DAILY@06 PO Last administered on 06/29/18at 06 :39; Admin Dose 40 MG; Start 06/05/18 at 06:00 Metoclopramide HCl (Reglan) 5 mg TID PRN IV Nausea; Start 06/06/18 at 11:00 Polyethylene Glycol (Miralax) 17 gm BID PRN PO CONSTIPATION; Start 06/06/18 at 14:00 Bisacodyl (Dulcolax Supp) 10 mg DAILY PRN [place] CONSTIPATION; Start 06/06/18 at 14:00 IV Flush (NS 10 ml) 10 ml PRN PRN IV IV PROTOCOL; Start 06/06/18 at 16:00 Nystatin (Nystatin Susp) 5 ml QID PO Last administered on 06/29/18at 12:53; Admin Dose 5 ML; Start 06/06/18 at 17:00 Metoprolol Tartrate (Lopressor) 25 mg BID PO Last administered on 06/29/18at 09:51; Admin Dose 25 MG; Start 06/13/18 at 21:00 Metoprolol Tartrate (Lopressor) 5 mg Q4H PRN IV HR>110 Hold SBP<100; Start 06/13/18 at 10:30 Morphine Sulfate (morphine) 6 mg Q2H PRN PO FOR NON CARDIAC PAIN (4-10); Start 06/13/18 at 11:30 Docusate Sodium (Colace) 100 mg DAILY PRN PO CONSTIPATION; Start 06/21/18 at 12:00 Warfarin Sodium (Coumadin) 5 mg DAILY@17 PO Last administered on 06/28/18at 17:02; Admin Dose 5 MG; Start 06/21/18 at 17:00 Miscellaneous Information (Pending [facility] Order For Wound Care) This patient gomes... PRN PRN XX WOUND CARE; Start 06/21/18 at 16:00 Amiodarone HCl (Cordarone) 200 mg BID PO Last administered on 06/29/18at 09:51; Admin Dose 200 MG; Start 06/22/18 at 21:00 Bumetanide (Bumex) 1 mg DAILY@0600 PO Last administered on 06/29/18at 06:39; Admin Dose 1 MG; Start 06/25/18 at 06:00 Miscellaneous Information (*Order Clarification Bulletin) MEDICATION REQUIRES CLARIFICATION:PLE... Q8H XX ; Start 06/26/18 at 12:00 MARSHA IYER MD Jun 29, 2018 17:10
[2018-06-29] MEDS: WARFARIN 5 MG TAB PO SCH (17:12)
[2018-06-29] MEDS: ATORVASTATIN 10 MG TAB PO SCH (20:57)
[2018-06-29] MEDS: LATANOPROST 0.005% 2.5 ML OPH BOTH EYES SCH (20:58)
[2018-06-30] VITALS (10 sets, daily range): BP systolic 111–128; BP diastolic 52–60; PULSE 60–88; RESP 18–19
[2018-06-30] MEDS: PANTOPRAZOLE (EC) 40 MG TAB PO SCH (07:38)
[2018-06-30] MEDS: LEVOTHYROXINE 50 MCG TAB PO SCH (07:38)
[2018-06-30] MEDS: BUMETANIDE 1 MG TAB PO SCH (07:38)
--- NOTE | 2018-06-30 08:39 | PN ---
DATE: 06/30/2018 SUBJECTIVE: The patient had episode of hematuria overnight. No other events noted. OBJECTIVE: VITAL SIGNS: Blood pressure is 112/54, respirations 19, pulse 69, temperature 97.9. HEENT: Head is normocephalic. NECK: Supple. HEART: Regular rate. LUNGS: Show diminished breath sounds at the base. ABDOMEN: Soft, nontender to palpation without rebound or guarding. EXTREMITIES: Negative for clubbing, cyanosis, no edema. DERMATOLOGIC: No rashes. MUSCULOSKELETAL: No joint effusion. NEUROLOGIC: No change in exam. MEDICATIONS: Reviewed. LABORATORY DATA: From 06/29/2018 was reviewed. ASSESSMENT AND PLAN: 1. Nonoliguric acute kidney injury with previously normal baseline creatinine. Etiology of acute ki dney injury is secondary to acute tubular necrosis. Renal function is improved. Continue to monitor . 2. Volume overload, improved. Continue low-dose diuretic therapy. 3. Hematuria. Etiology may be secondary to coagulopathy as patient is on Coumadin. We will recheck a urinalysis. Monitor closely. Follow up with neurology. 4. Hypernatremia, resolved. 5. Anemia. Monitor hemoglobin and hematocrit levels. 6. Coronary artery disease. Continue medical management. 7. Mechanical heart valve. The patient remains on Coumadin, follow INR. 8. Sepsis secondary to urinary tract infection. The patient is completing antibiotic course. 9. Hypothyroidism. Continue Synthroid. 10. Dyslipidemia. Continue statin therapy. 11. Hypertension. Continue current blood pressure regimen. 12. Intraabdominal hematoma. Dictated By: GWYN FABIAN DO NR/NTS Conf#: [id number] DID#: [id number] CC: CHRIS LAZAR MD; JOAQUIN DE LEON MD; JULY VALENTIN MD;*EndCC*
[2018-06-30] MEDS: AMIODARONE 200 MG TAB PO SCH ×2 (09:26→21:21)
[2018-06-30] MEDS: METOPROLOL 25 MG TAB PO SCH ×2 (09:27→21:21)
[2018-06-30] MEDS: MOMETASONE 0.24 GM INHALER INH SCH (09:27)
[2018-06-30] MEDS: NYSTATIN SUSP 5 ML CUP PO SCH ×4 (09:27→21:19)
[2018-06-30] MEDS ORDERED: POTASSIUM CHLORIDE (SR) 20 MEQ TAB PO STA (12:42)
[2018-06-30] MEDS: CEFTRIAXONE 1 GM/50 ML (PMX) 50 ML IVPB SCH (13:28)
--- NOTE | 2018-06-30 13:29 | CONS ---
Assessment/Plan Assessment/Plan Hospital Course (Demo Recall) - S/p severe sepsis due to UTI, resolved - S/p SIRS due to acute blood loss, resolved - S/p nasopharyngeal bleed on 06/11/2018, resolved - s/p UTI due to E. coli, resolved. 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, s/p covered stent placement 6 x 100 mm right common femoral artery and right external iliac artery, abdominal aortogram, catheter introduction to the abdominal aorta, JOSÉ MIGUEL guidance into the central artery 06/02/2018 - s/p retroperitoneal bleed - s/p acute anemia requiring PRBC - s/p CT guided placement of drainage catheter into pelvic hematoma 06/05/2018-->removed on 06/09/2018 - FORREST, improved - s/p L heart catheterization on 05/27/2018 showing no significant obstructive CAD - CAD s/p CABG in in 1982 - H/o MVR with mechanical valve, in 1999 - cholelithiasis without e/o acute cholecystitis - Hypertension - Hyperlipidemia - Hypothyroidism - asthma - s/p GOMES, resolved. CT head shows no acute findings - venous JOSÉ MIGUEL of b/l LE was negative for DVT - patient noted to have hematuria and empiric abx started 06.30.18 Recommendations: -hematuria w/u - ok to cont. ctx for now - await ucx - monitor fever curve - asked nursing to alert me to any changes - ARU eval in progress Consultation Date/Type/Reason Admit Date/Time May 28, 2018 at 17:52 Initial Consult Date 06/03/18 Type of Consult ID Requesting Provider: JULY VALENTIN MD Date/Time of Note DATE: 06/30/18 TIME: 13:28 24 HR Interval Summary Free Text/Dictation patient noted to have hematuria and empiric abx started 06.30.18 Exam/Review of Systems Exam Vitals Vital Signs Date Temp Pulse Resp B/P (MAP) Pulse Ox O2 O2 Flow FiO2 Time Delivery Rate 06/30/18 88 12:01 06/30/18 98.4 19 111/52 92 11:25 (71) 06/30/18 Room Air 04:00 Intake and Output 06/29/18 06/29/18 06/30/18 1515:00 23:00 07:00 IntakeIntake Total 350 ml 700 ml 400 ml BalanceBalance 350 ml 700 ml 400 ml Constitutional: alert, oriented, well developed Psych: no complaints, nl mood/affect Head: normocephalic, atraumatic Eyes: nl conjunctiva, EOMI, nl lids, nl sclera, PERRL ENMT: nl external ears & nose, nl lips & teeth, nl nasal mucosa & septum Neck: supple, non-tender Respiratory: clear to auscultation, normal air movement Gastrointestinal: soft, nl liver, spleen, non-tender Neurological: FLAVORER II-XII intact, nl mental status, nl speech, nl strength Results Result Diagram: 06/30/1893006/30/1831 Results 24hrs Laboratory Tests Test 06/29/18 18:15 06/30/18 09:31 Urine Color RED Urine Clarity CLOUDY A Urine pH 6.0 Urine Specific [place] 1.015 Urine Ketones NEGATIVE Urine Nitrite NEGATIVE Urine Bilirubin NEGATIVE Urine Urobilinogen NEGATIVE Urine Leukocyte Esterase 1+ H Urine Microscopic RBC > 182 H Urine Microscopic WBC 114 H Urine Squamous Epithelial Cells FEW Urine Bacteria FEW A Urine Mucus FEW A Urine Hemoglobin 3+ H Urine Glucose NEGATIVE Urine Total Protein 2+ H White Blood Count 5.9 Red Blood Count 2.92 L Hemoglobin 9.0 L Hematocrit 28.1 L Mean Corpuscular Volume 96.2 Mean Corpuscular Hemoglobin 30.8 Mean Corpuscular Hemoglobin Concent 32.0 Red Cell Distribution Width 17.2 H Platelet Count 267 Mean Platelet Volume 9.2 Immature Granulocytes % 3.200 H Neutrophils % 63.7 Lymphocytes % 25.1 Monocytes % 5.6 Eosinophils % 1.9 Basophils % 0.5 Nucleated Red Blood Cells % 0.0 Immature Granulocytes # 0.190 H Neutrophils # 3.8 Lymphocytes # 1.5 Monocytes # 0.3 Eosinophils # 0.1 Basophils # 0.0 Nucleated Red Blood Cells # 0.0 Sodium Level 138 Potassium Level 3.3 L Chloride Level 98 Carbon Dioxide Level 31 Anion Gap 9 Blood Urea Nitrogen 28 H Creatinine 0.78 Est Glomerular Filtrat Rate mL/min > 60 Glucose Level 141 Calcium Level 9.2 Medications Medication Current Medications Levothyroxine Sodium (Synthroid) 50 mcg BEFORE BREAKFAST PO Last administered on 06/30/18 07:38; Admin Dose 50 MCG; Start 05/30/18 at 07:00 Mometasone Furoate (Asmanex) 1 puff DAILY INH Last administered on 06/30/18 09:27; Admin Dose 1 PUFF; Start 05/29/18 at 11:00 Atorvastatin Calcium (Lipitor) 10 mg DAILY@21 PO Last administered on 06/29/18 20:57; Admin Dose 10 MG; Start 05/29/18 at 21:00 Latanoprost (Xalatan) 1 drop HS BOTH EYES Last administered on 06/29/18 20:58; Admin Dose 1 DROP; Start 06/01/18 at 21:00 Amlodipine Besylate (Norvasc) 5 mg DAILY PO ; Start 06/03/18 at 09:00; Status Hold Pantoprazole (Protonix Tab) 40 mg DAILY@06 PO Last administered on 06/30/18 07:38; Admin Dose 40 MG; Start 06/05/18 at 06:00 Metoclopramide HCl (Reglan) 5 mg TID PRN IV Nausea; Start 06/06/18 at 11:00 Polyethylene Glycol (Miralax) 17 gm BID PRN PO CONSTIPATION; Start 06/06/18 at 14:00 Bisacodyl (Dulcolax Supp) 10 mg DAILY PRN [place] CONSTIPATION; Start 06/06/18 at 14:00 IV Flush (NS 10 ml) 10 ml PRN PRN IV IV PROTOCOL; Start 06/06/18 at 16:00 Nystatin (Nystatin Susp) 5 ml QID PO Last administered on 06/30/18 09:27; Admin Dose 5 ML; Start 06/06/18 at 17:00 Metoprolol Tartrate (Lopressor) 25 mg BID PO Last administered on 06/30/18 09:27; Admin Dose 25 MG; Start 06/13/18 at 21:00 Metoprolol Tartrate (Lopressor) 5 mg Q4H PRN IV HR>110 Hold SBP<100; Start 06/13/18 at 10:30 Morphine Sulfate (morphine) 6 mg Q2H PRN PO FOR NON CARDIAC PAIN (4-10); Start 06/13/18 at 11:30 Docusate Sodium (Colace) 100 mg DAILY PRN PO CONSTIPATION; Start 06/21/18 at 12:00 Warfarin Sodium (Coumadin) 5 mg DAILY@17 PO Last administered on 06/29/18at 17:12; Admin Dose 5 MG; Start 06/21/18 at 17:00; Status Hold Miscellaneous Information ([facility]) This patient gomes... PRN PRN XX WOUND CARE; Start 06/21/18 at 16:00 Amiodarone HCl (Cordarone) 200 mg BID PO Last administered on 06/30/18at 09:26; Admin Dose 200 MG; Start 06/22/18 at 21:00 Bumetanide (Bumex) 1 mg DAILY@0600 PO Last administered on 06/30/18at 07:38; Admin Dose 1 MG; Start 06/25/18 at 06:00 Miscellaneous Information (*Order Clarification Bulletin) MEDICATION REQUIRES CLARIFICATION:PLE... Q8H XX Last administered on 06/30/18at 08:00; Admin Dose 1 EA; Start 06/26/18 at 12:00 Ceftriaxone Sodium 50 ml @ 100 mls/hr Q24H IVPB ; Start 06/30/18 at 13:00 MARSHA IYER MD Jun 30, 2018 13:29
--- NOTE | 2018-06-30 14:13 | CONS ---
Assessment/Plan Assessment/Plan Hospital Course (Demo Recall) IMP: 1.cad s/p LHC with no sig obstructive cad 2.HTN 3.RP Bleed s/p transfusions now stable and tolerating heparin/coumadin loading. Then had recurrent bled overnight now s/p covered stent to COMMERCIAL CONSTRUCTION ESTIMATOR/Ext iliac. Stable collection by abd CT 06/06 but still with pigtail catheter in place 4.HL 5.MVR-mechanical 6.anemia- s/p repair of R COMMERCIAL CONSTRUCTION ESTIMATOR/illiac. Had hemoptysis with subsequent drop in Hgb again and holding of heparin. Had some mild blood tinged sputum 7.Hypothyroid 8. GOMES-negative Head CT 9. Fevers-with positive ua 10. UTI-recurrent by u/a 06/29 11.ARF-? Contrast induced/compression from hematoma- now improving with increased urine output and slowly decreasing campus dean 12. Coagulopathy-now therapeutic 14. LE weakness-? compression from hematoma and exacerbated by femoral compression after cath-now resolved 15. arterial insuff- LLE- s/p ACUTE CARE OCCUPATIONAL THERAPIST/thrombolysis 06/04 successfully with palpable pulses/B DP/PT and remain that way 16. PAF/AFL-rate controlled 17. Hematuria-recurrent this am 18. Epistaxis-improved 19. Hyponatremia Recc: -Now on tele -Continue BB with well controlled Hr's -Continue statin -s/p course of abx's -ongoing ID f/u -F/U campus dean/K closely with creatnine now normalized and volume status improved. -Coumadin held today due to hematuria and would check INR and is to be seen by urology. Also now on CTX for UTI -Follow HGb clsoely which has been stable to improved actually -PT/ambulation -Continue PO bumex now daily and follow volume status closely -will continue amio bid for now in attempt to return patient to [facility] -Awaiting acceptance at rehab facility as per patient family preference would like to do inpatient rehab as poossible Consultation Date/Type/Reason Admit Date/Time May 28, 2018 at 17:52 Initial Consult Date 05/28/18 Type of Consult Cardiology Reason for Consultation MVR Requesting Provider: JULY VALENTIN MD Date/Time of Note DATE: 06/30/18 TIME: 14:09 Exam/Review of Systems Vital Signs Vitals Vital Signs Date Temp Pulse Resp B/P (MAP) Pulse Ox O2 O2 Flow FiO2 Time Delivery Rate 06/30/18 88 12:01 06/30/18 98.4 19 111/52 92 11:25 (71) 06/30/18 Room Air 04:00 Intake and Output 06/29/18 06/29/18 06/30/18 1515:00 23:00 07:00 IntakeIntake Total 350 ml 700 ml 400 ml BalanceBalance 350 ml 700 ml 400 ml Exam Exam Review of Systems: CONSTITUTIONAL: No fevers, chills. PULMONARY: No sob CARDIOVASCULAR: No chest pain/palpitations GASTROINTESTINAL: No nausea/vomiting. GENITOURINARY: No hematuria/dysuria. MUSCULOSKELETAL: No myagias/arthalgias. PSYCHIATRIC: The patient denies depression. NEUROLOGIC: No weakness Constitutional: alert Psych: no complaints Head: normocephalic ENMT: mucosa pink and moist Neck: supple, jvd (9 cm water) Respiratory: diminished breath sounds (at bases/B) Cardiovascular: regular rate and rhythm Gastrointestinal: soft, non-tender Musculoskeletal: muscle tone (normal) Extremities: edema (none) Labs Result Diagram: 06/30/1831 06/30/1831 Results 24hrs Laboratory Tests Test 06/29/18 18:15 06/30/18 09:31 Urine Color RED Urine Clarity CLOUDY A Urine pH 6.0 Urine Specific [place] 1.015 Urine Ketones NEGATIVE Urine Nitrite NEGATIVE Urine Bilirubin NEGATIVE Urine Urobilinogen NEGATIVE Urine Leukocyte Esterase 1+ H Urine Microscopic RBC > 182 H Urine Microscopic WBC 114 H Urine Squamous Epithelial Cells FEW Urine Bacteria FEW A Urine Mucus FEW A Urine Hemoglobin 3+ H Urine Glucose NEGATIVE Urine Total Protein 2+ H White Blood Count 5.9 Red Blood Count 2.92 L Hemoglobin 9.0 L Hematocrit 28.1 L Mean Corpuscular Volume 96.2 Mean Corpuscular Hemoglobin 30.8 Mean Corpuscular Hemoglobin Concent 32.0 Red Cell Distribution Width 17.2 H Platelet Count 267 Mean Platelet Volume 9.2 Immature Granulocytes % 3.200 H Neutrophils % 63.7 Lymphocytes % 25.1 Monocytes % 5.6 Eosinophils % 1.9 Basophils % 0.5 Nucleated Red Blood Cells % 0.0 Immature Granulocytes # 0.190 H Neutrophils # 3.8 Lymphocytes # 1.5 Monocytes # 0.3 Eosinophils # 0.1 Basophils # 0.0 Nucleated Red Blood Cells # 0.0 Sodium Level 138 Potassium Level 3.3 L Chloride Level 98 Carbon Dioxide Level 31 Anion Gap 9 Blood Urea Nitrogen 28 H Creatinine 0.78 Est Glomerular Filtrat Rate mL/min > 60 Glucose Level 141 Calcium Level 9.2 Medications Medications Current Medications Levothyroxine Sodium (Synthroid) 50 mcg BEFORE BREAKFAST PO Last administered on 06/30/18 07:38; Admin Dose 50 MCG; Start 05/30/18 at 07:00 Mometasone Furoate (Asmanex) 1 puff DAILY INH Last administered on 06/30/18 09:27; Admin Dose 1 PUFF; Start 05/29/18 at 11:00 Atorvastatin Calcium (Lipitor) 10 mg DAILY@21 PO Last administered on 06/29/18 20:57; Admin Dose 10 MG; Start 05/29/18 at 21:00 Latanoprost (Xalatan) 1 drop HS BOTH EYES Last administered on 06/29/18 20:58; Admin Dose 1 DROP; Start 06/01/18 at 21:00 Amlodipine Besylate (Norvasc) 5 mg DAILY PO ; Start 06/03/18 at 09:00; Status Hold Pantoprazole (Protonix Tab) 40 mg DAILY@06 PO Last administered on 06/30/18 07:38; Admin Dose 40 MG; Start 06/05/18 at 06:00 Metoclopramide HCl (Reglan) 5 mg TID PRN IV Nausea; Start 06/06/18 at 11:00 Polyethylene Glycol (Miralax) 17 gm BID PRN PO CONSTIPATION; Start 06/06/18 at 14:00 Bisacodyl (Dulcolax Supp) 10 mg DAILY PRN [place] CONSTIPATION; Start 06/06/18 at 14:00 IV Flush (NS 10 ml) 10 ml PRN PRN IV IV PROTOCOL; Start 06/06/18 at 16:00 Nystatin (Nystatin Susp) 5 ml QID PO Last administered on 06/30/18 13:27; Admin Dose 5 ML; Start 06/06/18 at 17:00 Metoprolol Tartrate (Lopressor) 25 mg BID PO Last administered on 06/30/18 09:27; Admin Dose 25 MG; Start 06/13/18 at 21:00 Metoprolol Tartrate (Lopressor) 5 mg Q4H PRN IV HR>110 Hold SBP<100; Start 06/13/18 at 10:30 Morphine Sulfate (morphine) 6 mg Q2H PRN PO FOR NON CARDIAC PAIN (4-10); Start 06/13/18 at 11:30 Docusate Sodium (Colace) 100 mg DAILY PRN PO CONSTIPATION; Start 06/21/18 at 12:00 Warfarin Sodium (Coumadin) 5 mg DAILY@17 PO Last administered on 06/29/18at 17:12; Admin Dose 5 MG; Start 06/21/18 at 17:00; Status Hold Miscellaneous Information (Pending [facility] Order For Wound Care) This patient gomes... PRN PRN XX WOUND CARE; Start 06/21/18 at 16:00 Amiodarone HCl (Cordarone) 200 mg BID PO Last administered on 06/30/18at 09:26; Admin Dose 200 MG; Start 06/22/18 at 21:00 Bumetanide (Bumex) 1 mg DAILY@0600 PO Last administered on 06/30/18at 07:38; Admin Dose 1 MG; Start 06/25/18 at 06:00 Miscellaneous Information (*Order Clarification Bulletin) MEDICATION REQUIRES CLARIFICATION:PLE... Q8H XX Last administered on 06/30/18at 12:00; Admin Dose 1 EA; Start 06/26/18 at 12:00 Ceftriaxone Sodium 50 ml @ 100 mls/hr Q24H IVPB Last administered on 06/30/18at 13:28; Admin Dose 100 MLS/HR; Start 06/30/18 at 13:00 CHRIS LAZAR Jun 30, 2018 14:13
--- NOTE | 2018-06-30 19:51 | CONS ---
Consult Date/Type/Reason Admit Date/Time May 28, 2018 at 17:52 Initial Consult Date 06/03/18 Type of Consultation: Urology Reason for Consultation Hematuria Requesting Provider: JULY VALENTIN MD Date/Time of Note DATE: 06/30/18 TIME: 19:43 Subjective The patient appears to be comfortable but anxious because of the gross hematuria she had today. Objective Vitals Vital Signs Date Temp Pulse Resp B/P (MAP) Pulse Ox O2 O2 Flow FiO2 Time Delivery Rate 06/30/18 78 16:01 06/30/18 98.3 111/52 92 15:46 (71) 06/30/18 Room Air 04:00 Intake and Output 06/29/18 06/29/18 06/30/18 1414:59 22:59 06:59 IntakeIntake Total 350 ml 700 ml 400 ml BalanceBalance 350 ml 700 ml 400 ml Exam The nurse have communicated to me earlier that the patient does have a gross hematuria I had her do straight cath on her to check her postvoid residual and that was about 175 mL. Urine was sent for culture and sensitivity. Her INR was 2.6 yesterday and today is 2.42. Patient has been on warfarin. That was put on hold today Results/Medications Result Diagram: 06/30/1831 06/30/18 0931 Results 24 hrs Laboratory Tests Test 06/30/18 09:30 06/30/18 09:31 06/30/18 14:43 Urine Color RED Urine Clarity SLIGHTLY CLOUDY A Urine pH 8.0 Urine Specific [place] 1.006 Urine Ketones NEGATIVE Urine Nitrite NEGATIVE Urine Bilirubin NEGATIVE Urine Urobilinogen NEGATIVE Urine Leukocyte Esterase NEGATIVE Urine Microscopic RBC 136 H Urine Microscopic WBC 11 H Urine Squamous FEW Epithelial Cells Urine Bacteria FEW A Urine Hemoglobin 2+ H Urine Random Creatinine < 12.40 L Urine Random Sodium 109 H Urine Glucose 1+ H Urine Total Protein 330.0 H White Blood Count 5.9 Red Blood Count 2.92 L Hemoglobin 9.0 L Hematocrit 28.1 L Mean Corpuscular Volume 96.2 Mean Corpuscular Hemoglobin 30.8 Mean Corpuscular 32.0 Hemoglobin Concent Red Cell Distribution Width 17.2 H Platelet Count 267 Mean Platelet Volume 9.2 Immature Granulocytes % 3.200 H Neutrophils % 63.7 Lymphocytes % 25.1 Monocytes % 5.6 Eosinophils % 1.9 Basophils % 0.5 Nucleated Red Blood Cells % 0.0 Immature Granulocytes # 0.190 H Neutrophils # 3.8 Lymphocytes # 1.5 Monocytes # 0.3 Eosinophils # 0.1 Basophils # 0.0 Nucleated Red Blood Cells # 0.0 Sodium Level 138 Potassium Level 3.3 L Chloride Level 98 Carbon Dioxide Level 31 Anion Gap 9 Blood Urea Nitrogen 28 H Creatinine 0.78 Est Glomerular Filtrat > 60 Rate mL/min Glucose Level 141 Calcium Level 9.2 Prothrombin Time 26.4 H Prothrombin Time Ratio 2.1 INR International 2.42 Normalized Ratio Home Meds Reported Medications Albuterol Sulfate* (Ventolin HFA*) 18 Gm Hfa.aer.ad, 2 PUFF INHALATION Q4H, #1 INHALER 05/26/18 Ergocalciferol (Vitamin D2) (VITAMIN D2) 50,000 Unit Capsule, 77800 UNIT PO [id number], CAP 05/23/18 Warfarin Sodium* (Coumadin*) 5 Mg Tablet, 5 MG PO Q TUES,THUR,SAT, TAB 05/23/18 Warfarin Sodium* (Coumadin*) 4 Mg Tablet, 4 MG PO Q MON,WED,FRI,SUN, TAB 05/23/18 Furosemide* (Furosemide*) 20 Mg Tablet, 20 MG PO DAILY, #60 TAB TAKE Q 2 DAYS 05/23/18 Simvastatin* (Zocor*) 20 Mg Tablet, 20 MG PO QHS, #30 TAB 05/23/18 Ranitidine Hcl* (Ranitidine Hcl*) 150 Mg Tablet, 150 MG PO HS, #30 TAB 05/23/18 Acetaminophen (Mapap) 500 Mg Capsule, 500 MG PO BID PRN for PAIN, CAP 05/23/18 Levothyroxine Sodium* (Levothyroxine Sodium*) 50 Mcg Tablet, 50 MCG PO BEFORE BREAKFAST, #30 TAB 05/23/18 Spironolactone* (Aldactone*) 25 Mg Tablet, 25 MG PO DAILY, #30 TAB 05/23/18 Beclomethasone Dipropionate (Qvar Redihaler (40 MCG)) 10.6 Gm Hfa.aeroba, 10.6 GM IH DAILY, INH 05/23/18 Amlodipine Besylate* (Norvasc*) 5 Mg Tablet, 5 MG PO BID, TAB 05/23/18 Losartan-Hydrochlorothiazide (Losartan-HCTZ) 100-25 Mg Tab, 1 TAB PO DAILY, TAB 05/23/18 Medications Current Medications Levothyroxine Sodium (Synthroid) 50 mcg BEFORE BREAKFAST PO Last administered on 06/30/18 07:38; Admin Dose 50 MCG; Start 05/30/18 at 07:00 Mometasone Furoate (Asmanex) 1 puff DAILY INH Last administered on 06/30/18 09:27; Admin Dose 1 PUFF; Start 05/29/18 at 11:00 Atorvastatin Calcium (Lipitor) 10 mg DAILY@21 PO Last administered on 06/29/18 20:57; Admin Dose 10 MG; Start 05/29/18 at 21:00 Latanoprost (Xalatan) 1 drop HS BOTH EYES Last administered on 06/29/18 20:58; Admin Dose 1 DROP; Start 06/01/18 at 21:00 Amlodipine Besylate (Norvasc) 5 mg DAILY PO ; Start 06/03/18 at 09:00; Status Hold Pantoprazole (Protonix Tab) 40 mg DAILY@06 PO Last administered on 06/30/18at 07:38; Admin Dose 40 MG; Start 06/05/18 at 06:00 Metoclopramide HCl (Reglan) 5 mg TID PRN IV Nausea; Start 06/06/18 at 11:00 Polyethylene Glycol (Miralax) 17 gm BID PRN PO CONSTIPATION; Start 06/06/18 at 14:00 Bisacodyl (Dulcolax Supp) 10 mg DAILY PRN [place] CONSTIPATION; Start 06/06/18 at 14:00 IV Flush (NS 10 ml) 10 ml PRN PRN IV IV PROTOCOL; Start 06/06/18 at 16:00 Nystatin (Nystatin Susp) 5 ml QID PO Last administered on 06/30/18at 17:42; Adm in Dose 5 ML; Start 06/06/18 at 17:00 Metoprolol Tartrate (Lopressor) 25 mg BID PO Last administered on 06/30/18 09:27; Admin Dose 25 MG; Start 06/13/18 at 21:00 Metoprolol Tartrate (Lopressor) 5 mg Q4H PRN IV HR>110 Hold SBP<100; Start 06/13/18 at 10:30 Morphine Sulfate (morphine) 6 mg Q2H PRN PO FOR NON CARDIAC PAIN (4-10); Start 06/13/18 at 11:30 Docusate Sodium (Colace) 100 mg DAILY PRN PO CONSTIPATION; Start 06/21/18 at 12:00 Warfarin Sodium (Coumadin) 5 mg DAILY@17 PO Last administered on 06/29/18at 17:12; Admin Dose 5 MG; Start 06/21/18 at 17:00; Status Hold Miscellaneous Information (Pending [facility] Order For Wound Care) This patient gomes... PRN PRN XX WOUND CARE; Start 06/21/18 at 16:00 Amiodarone HCl (Cordarone) 200 mg BID PO Last administered on 06/30/18at 09:26; Admin Dose 200 MG; Start 06/22/18 at 21:00 Bumetanide (Bumex) 1 mg DAILY@0600 PO Last administered on 06/30/18at 07:38; Admin Dose 1 MG; Start 06/25/18 at 06:00 Miscellaneous Information (*Order Clarification Bulletin) MEDICATION REQUIRES CLARIFICATION:PLE... Q8H XX Last administered on 06/30/18at 12:00; Admin Dose 1 EA; Start 06/26/18 at 12:00 Ceftriaxone Sodium 50 ml @ 100 mls/hr Q24H IVPB Last administered on 06/30/18at 13:28; Admin Dose 100 MLS/HR; Start 06/30/18 at 13:00 Assessment/Plan Hospital Course (Demo Recall) 62-year-old female underwent coronary angiogram. 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 I did insert the catheter for her and she was anuric. Since then she has improved and has been making urine and the urine was clear however today her urine was bloody. We checked her postvoid residual and she had only 175 mL. Urine was sent for culture and sensitivity. Her last urine culture was no growth after 48 hours. I did meet her son at her bedside. Discussed with him the possible causes of her hematuria. For now we will monitor the color of the urine. And if the urine culture shows any infection we will have to treat that. JOAQUIN DE LEON MD 21, 2019 19:51
[2018-06-30] MEDS: ATORVASTATIN 10 MG TAB PO SCH (21:21)
[2018-06-30] MEDS: LATANOPROST 0.005% 2.5 ML OPH BOTH EYES SCH (21:22)
--- NOTE | 2018-06-30 23:02 | PN ---
Date/Time of Note Date/Time of Note DATE: 06/30/18 TIME: 23:02 Assessment/Plan VTE [place] [facility] [place]: 6 [place] [facility] [place] Yes Pharmacological prophylaxis: other Pharm contraindication: other Lines/Catheters IV Catheter Type (from [facility] PICC Line Central line still needed: Yes Urinary Cath still in place: No Assessment/Plan Assessment/Plan - Hypokalemia - replace K; fu am BMP -Nose/oropharyngeal bleed on 06/11/2018, stopped after heparin was held. -Recent retroperitoneal bleed secondary to vascular injury status post stent placement. Monitor H and H. S/p eval by Dr. Kilpatrick, vascular surgery consultation. -Leukocytosis, resolved. Dr. Castellanos is following in infection disease consultation. Patient is off antibiotics. -Status post left heart catheterization with no significant obstructive coronary artery disease by Dr. Moreno on 05/27/2018. -Anemia of acute blood loss, status post blood transfusion, continue to monitor hemoglobin and hematocrit. -Acute illness myopathy -Status post mitral valve replacement with mechanical valve in 1999 in [facility]. Continue Coumadin, monitor PT/INR. -HTN, continue metoprolol -Hyperlipidemia -Hypothyroidism, continue levothyroxine -History of asthma Further recommendations based on clinical course. Plan of care discussed with Dr. Painter. Result Diagram: 06/30/18 0931 06/30/18 0931 Results 24hrs Laboratory Tests Test 06/30/18 09:30 06/30/18 09:31 06/30/18 14:43 Urine Color RED Urine Clarity SLIGHTLY CLOUDY A Urine pH 8.0 Urine Specific [place] 1.006 Urine Ketones NEGATIVE Urine Nitrite NEGATIVE Urine Bilirubin NEGATIVE Urine Urobilinogen NEGATIVE Urine Leukocyte Esterase NEGATIVE Urine Microscopic RBC 136 H Urine Microscopic WBC 11 H Urine Squamous FEW Epithelial Cells Urine Bacteria FEW A Urine Hemoglobin 2+ H Urine Random Creatinine < 12.40 L Urine Random Sodium 109 H Urine Glucose 1+ H Urine Total Protein 330.0 H White Blood Count 5.9 Red Blood Count 2.92 L Hemoglobin 9.0 L Hematocrit 28.1 L Mean Corpuscular Volume 96.2 Mean Corpuscular Hemoglobin 30.8 Mean Corpuscular 32.0 Hemoglobin Concent Red Cell Distribution Width 17.2 H Platelet Count 267 Mean Platelet Volume 9.2 Immature Granulocytes % 3.200 H Neutrophils % 63.7 Lymphocytes % 25.1 Monocytes % 5.6 Eosinophils % 1.9 Basophils % 0.5 Nucleated Red Blood Cells % 0.0 Immature Granulocytes # 0.190 H Neutrophils # 3.8 Lymphocytes # 1.5 Monocytes # 0.3 Eosinophils # 0.1 Basophils # 0.0 Nucleated Red Blood Cells # 0.0 Sodium Level 138 Potassium Level 3.3 L Chloride Level 98 Carbon Dioxide Level 31 Anion Gap 9 Blood Urea Nitrogen 28 H Creatinine 0.78 Est Glomerular Filtrat > 60 Rate mL/min Glucose Level 141 Calcium Level 9.2 Prothrombin Time 26.4 H Prothrombin Time Ratio 2.1 INR International 2.42 Normalized Ratio Subjective 24 Hr Interval Summary Constitutional: requiring O2 Eyes: no complaints ENT: no complaints Respiratory: no complaints Cardiovascular: no complaints Exam/Review of Systems Exam Vitals Vital Signs Date Temp Pulse Resp B/P (MAP) Pulse Ox O2 O2 Flow FiO2 Time Delivery Rate 06/30/18 74 20:00 06/30/18 97.7 19 111/59 94 19:45 (76) 06/30/18 Room Air 04:00 Intake and Output 06/29/18 06/29/18 06/30/18 1515:00 23:00 07:00 IntakeIntake Total 350 ml 700 ml 400 ml BalanceBalance 350 ml 700 ml 400 ml Constitutional: alert, well developed Psych: nl mood/affect Head: atraumatic Eyes: nl lids ENMT: nl external ears & nose Respiratory: clear to auscultation Cardiovascular: nl pulses Gastrointestinal: soft Musculoskeletal: nl extremities to inspection Neurological: nl speech Results Results 24hrs Laboratory Tests Test 06/30/18 09:30 06/30/18 09:31 06/30/18 14:43 Urine Color RED Urine Clarity SLIGHTLY CLOUDY A Urine pH 8.0 Urine Specific [place] 1.006 Urine Ketones NEGATIVE Urine Nitrite NEGATIVE Urine Bilirubin NEGATIVE Urine Urobilinogen NEGATIVE Urine Leukocyte Esterase NEGATIVE Urine Microscopic RBC 136 H Urine Microscopic WBC 11 H Urine Squamous FEW Epithelial Cells Urine Bacteria FEW A Urine Hemoglobin 2+ H Urine Random Creatinine < 12.40 L Urine Random Sodium 109 H Urine Glucose 1+ H Urine Total Protein 330.0 H White Blood Count 5.9 Red Blood Count 2.92 L Hemoglobin 9.0 L Hematocrit 28.1 L Mean Corpuscular Volume 96.2 Mean Corpuscular Hemoglobin 30.8 Mean Corpuscular 32.0 Hemoglobin Concent Red Cell Distribution Width 17.2 H Platelet Count 267 Mean Platelet Volume 9.2 Immature Granulocytes % 3.200 H Neutrophils % 63.7 Lymphocytes % 25.1 Monocytes % 5.6 Eosinophils % 1.9 Basophils % 0.5 Nucleated Red Blood Cells % 0.0 Immature Granulocytes # 0.190 H Neutrophils # 3.8 Lymphocytes # 1.5 Monocytes # 0.3 Eosinophils # 0.1 Basophils # 0.0 Nucleated Red Blood Cells # 0.0 Sodium Level 138 Potassium Level 3.3 L Chloride Level 98 Carbon Dioxide Level 31 Anion Gap 9 Blood Urea Nitrogen 28 H Creatinine 0.78 Est Glomerular Filtrat > 60 Rate mL/min Glucose Level 141 Calcium Level 9.2 Prothrombin Time 26.4 H Prothrombin Time Ratio 2.1 INR International 2.42 Normalized Ratio Medications Medication Current Medications Levothyroxine Sodium (Synthroid) 50 mcg BEFORE BREAKFAST PO Last administered on 06/30/18at 07:38; Admin Dose 50 MCG; Start 05/30/18 at 07:00 Mometasone Furoate (Asmanex) 1 puff DAILY INH Last administered on 06/30/18at 09:27; Admin Dose 1 PUFF; Start 05/29/18 at 11:00 Atorvastatin Calcium (Lipitor) 10 mg DAILY@21 PO Last administered on 06/30/18at 21:21; Admin Dose 10 MG; Start 05/29/18 at 21:00 Latanoprost (Xalatan) 1 drop HS BOTH EYES Last administered on 06/30/18at 21:22; Admin Dose 1 DROP; Start 06/01/18 at 21:00 Amlodipine Besylate (Norvasc) 5 mg DAILY PO ; Start 06/03/18 at 09:00; Status Hold Pantoprazole (Protonix Tab) 40 mg DAILY@06 PO Last administered on 06/30/18at 07:38; Admin Dose 40 MG; Start 06/05/18 at 06:00 Metoclopramide HCl (Reglan) 5 mg TID PRN IV Nausea; Start 06/06/18 at 11:00 Polyethylene Glycol (Miralax) 17 gm BID PRN PO CONSTIPATION; Start 06/06/18 at 14:00 Bisacodyl (Dulcolax Supp) 10 mg DAILY PRN ME CONSTIPATION; Start 06/06/18 at 14:00 IV Flush (NS 10 ml) 10 ml PRN PRN IV IV PROTOCOL; Start 06/06/18 at 16:00 Nystatin (Nystatin Susp) 5 ml QID PO Last administered on 06/30/18 21:19; Admin Dose 5 ML; Start 06/06/18 at 17:00 Metoprolol Tartrate (Lopressor) 25 mg BID PO Last administered on 06/30/18 21:21; Admin Dose 25 MG; Start 06/13/18 at 21:00 Metoprolol Tartrate (Lopressor) 5 mg Q4H PRN IV HR>110 Hold SBP<100; Start 06/13/18 at 10:30 Morphine Sulfate (morphine) 6 mg Q2H PRN PO FOR NON CARDIAC PAIN (4-10); Start 06/13/18 at 11:30 Docusate Sodium (Colace) 100 mg DAILY PRN PO CONSTIPATION; Start 06/21/18 at 12:00 Warfarin Sodium (Coumadin) 5 mg DAILY@17 PO Last administered on 06/29/18 17:12; Admin Dose 5 MG; Start 06/21/18 at 17:00; Status Hold Miscellaneous Information (Pending [facility] Order For Wound Care) This patient gomes... PRN PRN XX WOUND CARE; Start 06/21/18 at 16:00 Amiodarone HCl (Cordarone) 200 mg BID PO Last administered on 06/30/18 21:21; Admin Dose 200 MG; Start 06/22/18 at 21:00 Bumetanide (Bumex) 1 mg DAILY@0600 PO Last administered on 06/30/18 07:38; Admin Dose 1 MG; Start 06/25/18 at 06:00 Miscellaneous Information (*Order Clarification Bulletin) MEDICATION REQUIRES CLARIFICATION:PLE... Q8H XX Last administered on 06/30/18 12:00; Admin Dose 1 EA; Start 06/26/18 at 12:00 Ceftriaxone Sodium 50 ml @ 100 mls/hr Q24H IVPB Last administered on 06/30/18 13:28; Admin Dose 100 MLS/HR; Start 06/30/18 at 13:00 DELICIA MATUTE Jun 30, 2018 23:02
[2018-07-01] VITALS (11 sets, daily range): BP systolic 98–132; BP diastolic 53–77; PULSE 52–96; RESP 17–19
[2018-07-01] MEDS: PANTOPRAZOLE (EC) 40 MG TAB PO SCH (05:12)
[2018-07-01] MEDS: LEVOTHYROXINE 50 MCG TAB PO SCH (06:29)
[2018-07-01] MEDS: BUMETANIDE 1 MG TAB PO SCH (06:29)
[2018-07-01] MEDS: MOMETASONE 0.24 GM INHALER INH SCH (08:10)
[2018-07-01] MEDS: NYSTATIN SUSP 5 ML CUP PO SCH ×4 (08:11→21:49)
[2018-07-01] MEDS: AMIODARONE 200 MG TAB PO SCH ×2 (08:11→21:50)
[2018-07-01] MEDS: METOPROLOL 25 MG TAB PO SCH ×2 (08:11→21:00)
--- NOTE | 2018-07-01 08:33 | PN ---
DATE: 07/01/2018 SUBJECTIVE: The patient continues to have episodes of gross hematuria. The patient's Coumadin was h eld. No other events noted. OBJECTIVE: VITAL SIGNS: Blood pressure is 109/53, respirations 17, pulse 75, temperature 98.6. HEENT: Head is normocephalic. NECK: Supple. HEART: Regular rate. LUNGS: Show diminished breath sounds at the base. ABDOMEN: Soft, nontender to palpation without rebound or guarding. EXTREMITIES: Negative for clubbing, cyanosis, no edema. DERMATOLOGIC: No rashes. MUSCULOSKELETAL: No joint effusion. NEUROLOGIC: No change in exam. MEDICATIONS: Reviewed. LABORATORY DATA: Reviewed. The patient's INR 2.46. Sodium 139, potassium 3.6, bicarbonate 32, BUN 29, creatinine 0.78. White count 5.1, hemoglobin 7.9, platelet count is 228. ASSESSMENT AND PLAN: 1. Nonoliguric acute kidney injury with previously normal baseline creatinine. Etiology of acute ki dney injury is secondary to acute tubular necrosis. Renal function is improved. Continue to monitor . 2. Volume overload, improved. We will deescalate Bumex 0.5 mg daily. 3. Hematuria, likely secondary to underlying coagulopathy from Coumadin. Continue to monitor. Urin alysis was reviewed. Follow up with neurology. 4. Hypernatremia, resolved. 5. Anemia. Monitor hemoglobin and hematocrit levels. 6. Chronic kidney disease. Continue medical management. 7. Mechanical heart valve. Continue anticoagulation per cardiology. 8. Sepsis secondary to urinary tract infection. The patient is completing antibiotic course. 9. Hypothyroidism. Continue Synthroid. 10. Dyslipidemia. Continue statin therapy. 11. Hypertension. Continue current blood pressure regimen. 12. History of intra-abdominal hematoma. Dictated By: GWYN FABIAN DO NR/NTS Conf#: [id number] DID#: [id number] CC: CHRIS LAZAR MD; JOAQUIN DE LEON MD; JULY VALENTIN MD;*EndCC*
[2018-07-01] MEDS ORDERED: BARIUM SULF 2% 450 ML BTL (BERRY SMOOTHIE) PO ONE (11:00)
[2018-07-01] MEDS: CEFTRIAXONE 1 GM/50 ML (PMX) 50 ML IVPB SCH (12:09)
--- NOTE | 2018-07-01 12:19 | PN ---
Date/Time of Note Date/Time of Note DATE: 07/01/18 TIME: 12:15 Assessment/Plan VTE Prophylaxis Risk score (from [facility])>0 risk: 6 SCD applied (from [facility]): Yes SCD contraindicated: other Pharmacological prophylaxis: other Lines/Catheters IV Catheter Type (from [facility]): PICC Line Central line still needed: Yes Urinary Cath still in place: No Assessment/Plan Assessment/Plan - Hematuria - - gush of blood cameout while standing up - stat CT abdomen - urology follows - stat h/h; H/H q 6H -Nose/oropharyngeal bleed on 06/11/2018, stopped after heparin was held. -Recent retroperitoneal bleed secondary to vascular injury status post stent placement. Monitor H and H. S/p eval by Dr. Kilpatrick, vascular surgery consultation. Observe. -Leukocytosis, resolved. Dr. Castellanos is following in infection disease consultation. Patient is off antibiotics. -Status post left heart catheterization with no significant obstructive coronary artery disease by Dr. Moreno on 05/27/2018. -Anemia of acute blood loss, status post blood transfusion, continue to monitor hemoglobin and hematocrit. -Urinary incontinence. Dr. Ashford is following in urology consultation. -Acute illness myopathy -Status post mitral valve replacement with mechanical valve in 1999 in [facility]. Continue Coumadin, monitor PT/INR. -HTN, continue metoprolol -Hyperlipidemia -Hypothyroidism, continue levothyroxine -History of asthma Further recommendations based on clinical course. Plan of care discussed with Dr. Painter. Result Diagram: 07/01/18 1144 07/01/18 0509 Results 24hrs Laboratory Tests Test 06/30/18 14:43 07/01/18 05:09 07/01/18 11:44 Prothrombin Time 26.4 H 26.7 H Prothrombin Time Ratio 2.1 2.1 INR International Normalized Ratio 2.42 2.46 White Blood Count 5.1 Red Blood Count 2.62 L Hemoglobin 7.9 L 8.5 L Hematocrit 25.8 L 26.7 L Mean Corpuscular Volume 98.5 Mean Corpuscular Hemoglobin 30.2 Mean Corpuscular Hemoglobin Concent 30.6 L Red Cell Distribution Width 17.5 H Platelet Count 228 Mean Platelet Volume 9.9 Immature Granulocytes % 3.500 H Neutrophils % 61.9 Lymphocytes % 26.3 Monocytes % 5.3 Eosinophils % 2.2 Basophils % 0.8 Nucleated Red Blood Cells % 0.0 Immature Granulocytes # 0.180 H Neutrophils # 3.2 Lymphocytes # 1.3 Monocytes # 0.3 Eosinophils # 0.1 Basophils # 0.0 Nucleated Red Blood Cells # 0.0 Sodium Level 139 Potassium Level 3.6 Chloride Level 97 Carbon Dioxide Level 32 H Anion Gap 10 Blood Urea Nitrogen 29 H Creatinine 0.78 Est Glomerular Filtrat Rate mL/min > 60 Glucose Level 177 Calcium Level 8.9 Phosphorus Level 3.9 Magnesium Level 1.8 Subjective 24 Hr Interval Summary Free Text/Dictation - Hematuria - gush of blood cameout while standing up; stat CT abdomen; urology follows - will do stat h/h; H/H q 6H - dw staff Constitutional: requiring O2 Eyes: no complaints ENT: no complaints Respiratory: no complaints Cardiovascular: no complaints Gastrointestinal: pain Genitourinary: no complaints Musculoskeletal: no complaints Skin: no complaints Neurologic: no complaints Exam/Review of Systems Exam Vitals Vital Signs Date Temp Pulse Resp B/P (MAP) Pulse Ox O2 O2 Flow FiO2 Time Delivery Rate 07/01/18 98.9 80 18 109/53 94 11:13 (71) 06/30/18 Room Air 04:00 Intake and Output 06/30/18 06/30/18 07/01/18 1515:00 23:00 07:00 IntakeIntake Total 650 ml 400 ml BalanceBalance 650 ml 400 ml Constitutional: alert, well developed Psych: nl mood/affect Head: atraumatic Eyes: nl lids, nl sclera ENMT: nl external ears & nose Neck: non-tender Respiratory: diminished breath sounds Cardiovascular: nl pulses Gastrointestinal: soft, tender Musculoskeletal: muscle weakness Extremities: normal pulses Neurological: nl speech Lymph: nontender Results Results 24hrs Laboratory Tests Test 06/30/18 14:43 07/01/18 05:09 07/01/18 11:44 Prothrombin Time 26.4 H 26.7 H Prothrombin Time Ratio 2.1 2.1 INR International Normalized Ratio 2.42 2.46 White Blood Count 5.1 Red Blood Count 2.62 L Hemoglobin 7.9 L 8.5 L Hematocrit 25.8 L 26.7 L Mean Corpuscular Volume 98.5 Mean Corpuscular Hemoglobin 30.2 Mean Corpuscular Hemoglobin Concent 30.6 L Red Cell Distribution Width 17.5 H Platelet Count 228 Mean Platelet Volume 9.9 Immature Granulocytes % 3.500 H Neutrophils % 61.9 Lymphocytes % 26.3 Monocytes % 5.3 Eosinophils % 2.2 Basophils % 0.8 Nucleated Red Blood Cells % 0.0 Immature Granulocytes # 0.180 H Neutrophils # 3.2 Lymphocytes # 1.3 Monocytes # 0.3 Eosinophils # 0.1 Basophils # 0.0 Nucleated Red Blood Cells # 0.0 Sodium Level 139 Potassium Level 3.6 Chloride Level 97 Carbon Dioxide Level 32 H Anion Gap 10 Blood Urea Nitrogen 29 H Creatinine 0.78 Est Glomerular Filtrat Rate mL/min > 60 Glucose Level 177 Calcium Level 8.9 Phosphorus Level 3.9 Magnesium Level 1.8 Medications Medication Current Medications Levothyroxine Sodium (Synthroid) 50 mcg BEFORE BREAKFAST PO Last administered on 07/01/18at 06:29; Admin Dose 50 MCG; Start 05/30/18 at 07:00 Mometasone Furoate (Asmanex) 1 puff DAILY INH Last administered on 07/01/18at 08:10; Admin Dose 1 PUFF; Start 05/29/18 at 11:00 Atorvastatin Calcium (Lipitor) 10 mg DAILY@21 PO Last administered on 06/30/18at 21:21; Admin Dose 10 MG; Start 05/29/18 at 21:00 Latanoprost (Xalatan) 1 drop HS BOTH EYES Last administered on 06/30/18at 21:22; Admin Dose 1 DROP; Start 06/01/18 at 21:00 Amlodipine Besylate (Norvasc) 5 mg DAILY PO ; Start 06/03/18 at 09:00; Status Hold Pantoprazole (Protonix Tab) 40 mg DAILY@06 PO Last administered on 07/01/18at 05:12; Admin Dose 40 MG; Start 06/05/18 at 06:00 Metoclopramide HCl (Reglan) 5 mg TID PRN IV Nausea; Start 06/06/18 at 11:00 Polyethylene Glycol (Miralax) 17 gm BID PRN PO CONSTIPATION; Start 06/06/18 at 14:00 Bisacodyl (Dulcolax Supp) 10 mg DAILY PRN [place] CONSTIPATION; Start 06/06/18 at 14:00 IV Flush (NS 10 ml) 10 ml PRN PRN IV IV PROTOCOL; Start 06/06/18 at 16:00 Nystatin (Nystatin Susp) 5 ml QID PO Last administered on 07/01/18 12:09; Admin Dose 5 ML; Start 06/06/18 at 17:00 Metoprolol Tartrate (Lopressor) 25 mg BID PO Last administered on 06/30/18at 21:21; Admin Dose 25 MG; Start 06/13/18 at 21:00 Metoprolol Tartrate (Lopressor) 5 mg Q4H PRN IV HR>110 Hold SBP<100; Start 06/13/18 at 10:30 Morphine Sulfate (morphine) 6 mg Q2H PRN PO FOR NON CARDIAC PAIN (4-10); Start 06/13/18 at 11:30 Docusate Sodium (Colace) 100 mg DAILY PRN PO CONSTIPATION; Start 06/21/18 at 12:00 Warfarin Sodium (Coumadin) 5 mg DAILY@17 PO Last administered on 06/29/18at 17:12; Admin Dose 5 MG; Start 06/21/18 at 17:00; Status Hold Miscellaneous Information (Pending [facility] Order For Wound Care) This patient gomes... PRN PRN XX WOUND CARE; Start 06/21/18 at 16:00 Amiodarone HCl (Cordarone) 200 mg BID PO Last administered on 07/01/18at 08:11; Admin Dose 200 MG; Start 06/22/18 at 21:00 Miscellaneous Information (*Order Clarification Bulletin) MEDICATION REQUIRES CLARIFICATION:PLE... Q8H XX Last administered on 06/30/18at 12:00; Admin Dose 1 EA; Start 06/26/18 at 12:00 Ceftriaxone Sodium 50 ml @ 100 mls/hr Q24H IVPB Last administered on 07/01/18at 12:09; Admin Dose 100 MLS/HR; Start 06/30/18 at 13:00 Bumetanide (Bumex) 0.5 mg DAILY@0600 PO ; Start 07/02/18 at 06:00 DELICIA MATUTE Jul 01, 2018 12:19
--- NOTE | 2018-07-01 14:30 | CONS ---
Assessment/Plan Assessment/Plan Hospital Course (Demo Recall) - Hematuria - GNR UTI - Coagulopathy 2/ warfarin - improving - S/p severe sepsis due to UTI, resolved - S/p SIRS due to acute blood loss, resolved - S/p nasopharyngeal bleed on 06/11/2018, resolved - S/p UTI due to E. coli, resolved. 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, s/p covered stent placement 6 x 100 mm right common femoral artery and right external iliac artery, abdominal aortogram, catheter introduction to the abdominal aorta, JOSÉ MIGUEL guidance into the central artery 06/02/2018 - S/p retroperitoneal bleed - S/p acute anemia requiring PRBC - S/p CT guided placement of drainage catheter into pelvic hematoma 06/05/2018-->removed on 06/09/2018 - S/p FORREST - S/p L heart catheterization on 05/27/2018 showing no significant obstructive CAD - CAD [place] 1982 - H/o MVR with mechanical valve, in 1999 - PAF - Cholelithiasis without e/o acute cholecystitis - Hypertension - Hyperlipidemia - Hypothyroidism - Asthma - S/p FOURNIER, resolved. CT head shows no acute findings - Venous JOSÉ MIGUEL of b/l LE was negative for DVT Recommendations: - Continue ceftriaxone (06/30/2018-) for now - Await final urine cx (GNR) and stool OB - Hematuria w/u in progress; F/u CT abd/pelvis results; Urology following - ARU eval in progress Management discussed patient and her family (spouse and daughter at bedside) and with Dr. Hughes Consultation Date/Type/Reason Admit Date/Time May 28, 2018 at 17:52 Initial Consult Date 06/02/18 Type of Consult Infectious Disease Requesting Provider: JULY VALENTIN MD Date/Time of Note DATE: 07/01/18 TIME: 14:28 24 HR Interval Summary Free Text/Dictation Awaiting CT abd/pelvis. Still has hematuria and mild LLQ and RLQ discomfort. No n/v/d. No fever or chills. No dysuria. Exam/Review of Systems Exam Vitals Vital Signs Date Temp Pulse Resp B/P (MAP) Pulse Ox O2 O2 Flow FiO2 Time Delivery Rate 07/01/18 98.9 80 18 109/53 94 11:13 (71) 06/30/18 Room Air 04:00 Intake and Output 06/30/18 06/30/18 07/01/18 1515:00 23:00 07:00 IntakeIntake Total 650 ml 400 ml BalanceBalance 650 ml 400 ml Exam Constitutional: alert, oriented, well developed, other (lying in bed in no acute distress; Spouse and daughter at bedside) Psych: no complaints, nl mood/affect Head: normocephalic, atraumatic Eyes: nl conjunctiva, nl lids, nl sclera ENMT: nl external ears & nose, nl nasal mucosa & septum, mucosa pink and moist Neck: supple, non-tender (not swollen) Respiratory: clear to auscultation, normal air movement Cardiovascular: regular rate and rhythm, nl pulses Gastrointestinal: soft, tender (mild TTP to RLQ and LLQ with no guarding or rebound tenderness) Genitourinary - Female: other (no Mensah) Musculoskeletal: nl extremities to inspection Extremities: normal pulses Neurological: [employer]CH[employer] II-XII intact, nl mental status, nl speech Skin: nl turgor, ecchymosis (scattered); No rash or lesions Results Result Diagram: 07/01/18 1144 07/01/18 0509 Results 24hrs Laboratory Tests Test 06/30/18 14:43 07/01/18 05:09 07/01/18 11:44 Prothrombin Time 26.4 H 26.7 H Prothrombin Time Ratio 2.1 2.1 INR International Normalized Ratio 2.42 2.46 White Blood Count 5.1 Red Blood Count 2.62 L Hemoglobin 7.9 L 8.5 L Hematocrit 25.8 L 26.7 L Mean Corpuscular Volume 98.5 Mean Corpuscular Hemoglobin 30.2 Mean Corpuscular Hemoglobin Concent 30.6 L Red Cell Distribution Width 17.5 H Platelet Count 228 Mean Platelet Volume 9.9 Immature Granulocytes % 3.500 H Neutrophils % 61.9 Lymphocytes % 26.3 Monocytes % 5.3 Eosinophils % 2.2 Basophils % 0.8 Nucleated Red Blood Cells % 0.0 Immature Granulocytes # 0.180 H Neutrophils # 3.2 Lymphocytes # 1.3 Monocytes # 0.3 Eosinophils # 0.1 Basophils # 0.0 Nucleated Red Blood Cells # 0.0 Sodium Level 139 Potassium Level 3.6 Chloride Level 97 Carbon Dioxide Level 32 H Anion Gap 10 Blood Urea Nitrogen 29 H Creatinine 0.78 Est Glomerular Filtrat Rate mL/min > 60 Glucose Level 177 Calcium Level 8.9 Phosphorus Level 3.9 Magnesium Level 1.8 Medications Medication Current Medications Levothyroxine Sodium (Synthroid) 50 mcg BEFORE BREAKFAST PO Last administered on 07/01/18 06:29; Admin Dose 50 MCG; Start 05/30/18 at 07:00 Mometasone Furoate (Asmanex) 1 puff DAILY INH Last administered on 07/01/18at 0 8:10; Admin Dose 1 PUFF; Start 05/29/18 at 11:00 Atorvastatin Calcium (Lipitor) 10 mg DAILY@21 PO Last administered on 06/30/18at 21:21; Admin Dose 10 MG; Start 05/29/18 at 21:00 Latanoprost (Xalatan) 1 drop HS BOTH EYES Last administered on 06/30/18at 21:22; Admin Dose 1 DROP; Start 06/01/18 at 21:00 Amlodipine Besylate (Norvasc) 5 mg DAILY PO ; Start 06/03/18 at 09:00; Status Hold Pantoprazole (Protonix Tab) 40 mg DAILY@06 PO Last administered on 07/01/18at 05:12; Admin Dose 40 MG; Start 06/05/18 at 06:00 Metoclopramide HCl (Reglan) 5 mg TID PRN IV Nausea; Start 06/06/18 at 11:00 Polyethylene Glycol (Miralax) 17 gm BID PRN PO CONSTIPATION; Start 06/06/18 at 14:00 Bisacodyl (Dulcolax Supp) 10 mg DAILY PRN [place] CONSTIPATION; Start 06/06/18 at 14:00 IV Flush (NS 10 ml) 10 ml PRN PRN IV IV PROTOCOL; Start 06/06/18 at 16:00 Nystatin (Nystatin Susp) 5 ml QID PO Last administered on 07/01/18at 12:09; Admin Dose 5 ML; Start 06/06/18 at 17:00 Metoprolol Tartrate (Lopressor) 25 mg BID PO Last administered on 06/30/18at 21:21; Admin Dose 25 MG; Start 06/13/18 at 21:00 Metoprolol Tartrate (Lopressor) 5 mg Q4H PRN IV HR>110 Hold SBP<100; Start 06/13/18 at 10:30 Morphine Sulfate (morphine) 6 mg Q2H PRN PO FOR NON CARDIAC PAIN (4-10); Start 06/13/18 at 11:30 Docusate Sodium (Colace) 100 mg DAILY PRN PO CONSTIPATION; Start 06/21/18 at 12:00 Warfarin Sodium (Coumadin) 5 mg DAILY@17 PO Last administered on 06/29/18at 17:12; Admin Dose 5 MG; Start 06/21/18 at 17:00; Status Hold Miscellaneous Information (Pending [facility] Order For Wound Care) This patient fournier... PRN PRN XX WOUND CARE; Start 06/21/18 at 16:00 Amiodarone HCl (Cordarone) 200 mg BID PO Last administered on 07/01/18at 08:11; Admin Dose 200 MG; Start 06/22/18 at 21:00 Miscellaneous Information (*Order Clarification Bulletin) MEDICATION REQUIRES CLARIFICATION:PLE... Q8H XX Last administered on 06/30/18at 12:00; Admin Dose 1 EA; Start 06/26/18 at 12:00 Ceftriaxone Sodium 50 ml @ 100 mls/hr Q24H IVPB Last administered on 07/01/18at 12:09; Admin Dose 100 MLS/HR; Start 06/30/18 at 13:00 Bumetanide (Bumex) 0.5 mg DAILY@0600 PO ; Start 07/02/18 at 06:00 KISHORE JARAMILLO NP Jul 01, 2018 14:30
--- NOTE | 2018-07-01 15:35 | CONS ---
Assessment/Plan Assessment/Plan Hospital Course (Demo Recall) IMP: 1.cad s/p LHC with no sig obstructive cad 2.HTN 3.RP Bleed s/p transfusions now stable and tolerating heparin/coumadin loading. Then had recurrent bled overnight now s/p covered stent to OIL RIGGER/Ext iliac. Stable collection by abd CT 06/06 but still with pigtail catheter in place 4.HL 5.MVR-mechanical 6.anemia- s/p repair of R OIL RIGGER/illiac. Had hemoptysis with subsequent drop in Hgb again and holding of heparin. Had some mild blood tinged sputum 7.Hypothyroid 8. GOMES-negative Head CT 9. Fevers-with positive ua 10. UTI-recurrent by u/a 06/29 11.ARF-? 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 Coagulopathy-now therapeutic 14. LE weakness-? compression from hematoma and exacerbated by femoral compression after cath-now resolved 15. arterial insuff- LLE- s/p PLASTERER STUCCO/thrombolysis 06/04 successfully with palpable pulses/B DP/PT and remain that way 16. PAF/AFL-rate controlled 17. Hematuria-recurrent and ongoing 18. Epistaxis-improved 19. anemia-stable Recc: -Now on tele -Continue BB with well controlled Hr's -Continue statin -s/p course of abx's -ongoing ID f/u -F/U oyster buyer/K closely with creatnine now normalized and volume status improved. -Coumadin held today due to hematuria and would check INR and is to be seen by u bola. Also now on CTX for UTI -Follow HGb clsoely which has been stable to improved actually -PT/ambulation -Continue PO bumex now daily and follow volume status closely -will continue amio bid for now in attempt to return patient to [facility] -Urology following with pnding CT scan to further assess etiology of hematuria Consultation Date/Type/Reason Admit Date/Time May 28, 2018 at 17:52 Initial Consult Date 05/28/18 Type of Consult Cardiology Reason for Consultation MVR Requesting Provider: JULY VALENTIN MD Date/Time of Note DATE: 07/01/18 TIME: 15:32 Exam/Review of Systems Vital Signs Vitals Vital Signs Date Temp Pulse Resp B/P (MAP) Pulse Ox O2 O2 Flow FiO2 Time Delivery Rate 07/01/18 98.9 80 18 109/53 94 11:13 (71) 06/30/18 Room Air 04:00 Intake and Output 06/30/18 06/30/18 07/01/18 1515:00 23:00 07:00 IntakeIntake Total 650 ml 400 ml BalanceBalance 650 ml 400 ml Exam Exam Review of Systems: CONSTITUTIONAL: No fevers, chills. PULMONARY: No sob CARDIOVASCULAR: No chest pain/palpitations GASTROINTESTINAL: No nausea/vomiting. GENITOURINARY: No hematuria/dysuria. MUSCULOSKELETAL: No myagias/arthalgias. PSYCHIATRIC: The patient denies depression. NEUROLOGIC: No weakness Constitutional: alert Psych: no complaints Head: normocephalic ENMT: mucosa pink and moist Neck: supple, jvd (9 cm water) Respiratory: diminished breath sounds (at bases/B) Cardiovascular: regular rate and rhythm Gastrointestinal: soft, non-tender Musculoskeletal: muscle weakness (mild generalized weakness) Extremities: edema (none) Neurological: other (No focal deficiuts) Labs Result Diagram: 07/01/18 1144 07/01/18 0509 Results 24hrs Laboratory Tests Test 07/01/18 05:09 07/01/18 11:44 White Blood Count 5.1 Red Blood Count 2.62 L Hemoglobin 7.9 L 8.5 L Hematocrit 25.8 L 26.7 L Mean Corpuscular Volume 98.5 Mean Corpuscular Hemoglobin 30.2 Mean Corpuscular Hemoglobin Concent 30.6 L Red Cell Distribution Width 17.5 H Platelet Count 228 Mean Platelet Volume 9.9 Immature Granulocytes % 3.500 H Neutrophils % 61.9 Lymphocytes % 26.3 Monocytes % 5.3 Eosinophils % 2.2 Basophils % 0.8 Nucleated Red Blood Cells % 0.0 Immature Granulocytes # 0.180 H Neutrophils # 3.2 Lymphocytes # 1.3 Monocytes # 0.3 Eosinophils # 0.1 Basophils # 0.0 Nucleated Red Blood Cells # 0.0 Prothrombin Time 26.7 H Prothrombin Time Ratio 2.1 INR International Normalized Ratio 2.46 Sodium Level 139 Potassium Level 3.6 Chloride Level 97 Carbon Dioxide Level 32 H Anion Gap 10 Blood Urea Nitrogen 29 H Creatinine 0.78 Est Glomerular Filtrat Rate mL/min > 60 Glucose Level 177 Calcium Level 8.9 Phosphorus Level 3.9 Magnesium Level 1.8 Medications Medications Current Medications Levothyroxine Sodium (Synthroid) 50 mcg BEFORE BREAKFAST PO Last administered on 07/01/18at 06:29; Admin Dose 50 MCG; Start 05/30/18 at 07:00 Mometasone Furoate (Asmanex) 1 puff DAILY INH Last administered on 07/01/18at 08:10; Admin Dose 1 PUFF; Start 05/29/18 at 11:00 Atorvastatin Calcium (Lipitor) 10 mg DAILY@21 PO Last administered on 06/30/18at 21:21; Admin Dose 10 MG; Start 05/29/18 at 21:00 Latanoprost (Xalatan) 1 drop HS BOTH EYES Last administered on 06/30/18at 21:22; Admin Dose 1 DROP; Start 06/01/18 at 21:00 Amlodipine Besylate (Norvasc) 5 mg DAILY PO ; Start 06/03/18 at 09:00; Status Hold Pantoprazole (Protonix Tab) 40 mg DAILY@06 PO Last administered on 07/01/18at 05:12; Admin Dose 40 MG; Start 06/05/18 at 06:00 Metoclopramide HCl (Reglan) 5 mg TID PRN IV Nausea; Start 06/06/18 at 11:00 Polyethylene Glycol (Miralax) 17 gm BID PRN PO CONSTIPATION; Start 06/06/18 at 14:00 Bisacodyl (Dulcolax Supp) 10 mg DAILY PRN [place] CONSTIPATION; Start 06/06/18 at 14:00 IV Flush (NS 10 ml) 10 ml PRN PRN IV IV PROTOCOL; Start 06/06/18 at 16:00 Nystatin (Nystatin Susp) 5 ml QID PO Last administered on 07/01/18at 12:09; Admin Dose 5 ML; Start 06/06/18 at 17:00 Metoprolol Tartrate (Lopressor) 25 mg BID PO Last administered on 06/30/18at 21:21; Admin Dose 25 MG; Start 06/13/18 at 21:00 Metoprolol Tartrate (Lopressor) 5 mg Q4H PRN IV HR>110 Hold SBP<100; Start 06/13/18 at 10:30 Morphine Sulfate (morphine) 6 mg Q2H PRN PO FOR NON CARDIAC PAIN (4-10); Start 06/13/18 at 11:30 Docusate Sodium (Colace) 100 mg DAILY PRN PO CONSTIPATION; Start 06/21/18 at 12:00 Warfarin Sodium (Coumadin) 5 mg DAILY@17 PO Last administered on 06/29/18at 17:12; Admin Dose 5 MG; Start 06/21/18 at 17:00; Status Hold Miscellaneous Information (Pending [facility] Order For Wound Care) This patient gomes... PRN PRN XX WOUND CARE; Start 06/21/18 at 16:00 Amiodarone HCl (Cordarone) 200 mg BID PO Last administered on 07/01/18at 08:11; Admin Dose 200 MG; Start 06/22/18 at 21:00 Miscellaneous Information (*Order Clarification Bulletin) MEDICATION REQUIRES CLARIFICATION:PLE... Q8H XX Last administered on 06/30/18at 12:00; Admin Dose 1 EA; Start 06/26/18 at 12:00 Ceftriaxone Sodium 50 ml @ 100 mls/hr Q24H IVPB Last administered on 07/01/18at 12:09; Admin Dose 100 MLS/HR; Start 06/30/18 at 13:00 Bumetanide (Bumex) 0.5 mg DAILY@0600 PO ; Start 07/02/18 at 06:00 CHRIS LAZAR Jul 01, 2018 15:35
--- NOTE | 2018-07-01 20:33 | CONS ---
Consult Date/Type/Reason Admit Date/Time May 28, 2018 at 17:52 Initial Consult Date 06/03/18 Type of Consultation: Urology Reason for Consultation Hematuria Requesting Provider: JULY VALENTIN MD Date/Time of Note DATE: 07/01/18 TIME: 20:27 Subjective The patient is comfortable, however when she stood up to have physical therapy blood came out from her urethra. Patient has been also urinating blood in the past 2 days Objective Vitals Vital Signs Date Temp Pulse Resp B/P (MAP) Pulse Ox O2 O2 Flow FiO2 Time Delivery Rate 07/01/18 98.3 86 17 98/53 (68) 95 19:43 07/01/18 Room Air 15:51 Intake and Output 06/30/18 06/30/18 07/01/18 1515:00 23:00 07:00 IntakeIntake Total 650 ml 400 ml BalanceBalance 650 ml 400 ml Exam The abdomen is a little softer but she still have large suprapubic mass from the hematoma. Results/Medications Result Diagram: 07/01/18 1810 07/01/18 0509 Results 24 hrs Laboratory Tests Test 07/01/18 05:09 07/01/18 11:44 07/01/18 17:50 07/01/18 18:10 White Blood Count 5.1 Red Blood Count 2.62 L Hemoglobin 7.9 L 8.5 L 8.4 L Hematocrit 25.8 L 26.7 L 26.1 L Mean Corpuscular 98.5 Volume Mean Corpuscular 30.2 Hemoglobin Mean Corpuscular 30.6 L Hemoglobin Concent Red Cell 17.5 H Distribution Width Platelet Count 228 Mean Platelet Volume 9.9 Immature 3.500 H Granulocytes % Neutrophils % 61.9 Lymphocytes % 26.3 Monocytes % 5.3 Eosinophils % 2.2 Basophils % 0.8 Nucleated Red Blood 0.0 Cells % Immature 0.180 H Granulocytes # Neutrophils # 3.2 Lymphocytes # 1.3 Monocytes # 0.3 Eosinophils # 0.1 Basophils # 0.0 Nucleated Red Blood 0.0 Cells # Prothrombin Time 26.7 H Prothrombin Time 2.1 Ratio INR International 2.46 Normalized Ratio Sodium Level 139 Potassium Level 3.6 Chloride Level 97 Carbon Dioxide Level 32 H Anion Gap 10 Blood Urea Nitrogen 29 H Creatinine 0.78 Est Glomerular > 60 Filtrat Rate mL/min Glucose Level 177 Calcium Level 8.9 Phosphorus Level 3.9 Magnesium Level 1.8 Stool Occult Blood POSITIVE Home Meds Reported Medications Albuterol Sulfate* (Ventolin HFA*) 18 Gm Hfa.aer.ad, 2 PUFF INHALATION Q4H, #1 INHALER 05/26/18 Ergocalciferol (Vitamin D2) (VITAMIN D2) 50,000 Unit Capsule, 72002 UNIT PO [id number], CAP 05/23/18 Warfarin Sodium* (Coumadin*) 5 Mg Tablet, 5 MG PO Q TUES,THUR,SAT, TAB 05/23/18 Warfarin Sodium* (Coumadin*) 4 Mg Tablet, 4 MG PO Q MON,WED,FRI,SUN, TAB 05/23/18 Furosemide* (Furosemide*) 20 Mg Tablet, 20 MG PO DAILY, #60 TAB TAKE Q 2 DAYS 05/23/18 Simvastatin* (Zocor*) 20 Mg Tablet, 20 MG PO QHS, #30 TAB 05/23/18 Ranitidine Hcl* (Ranitidine Hcl*) 150 Mg Tablet, 150 MG PO HS, #30 TAB 05/23/18 Acetaminophen (Mapap) 500 Mg Capsule, 500 MG PO BID PRN for PAIN, CAP 05/23/18 Levothyroxine Sodium* (Levothyroxine Sodium*) 50 Mcg Tablet, 50 MCG PO BEFORE BREAKFAST, #30 TAB 05/23/18 Spironolactone* (Aldactone*) 25 Mg Tablet, 25 MG PO DAILY, #30 TAB 05/23/18 Beclomethasone Dipropionate (Qvar Redihaler (40 MCG)) 10.6 Gm Hfa.aeroba, 10.6 GM IH DAILY, INH 05/23/18 Amlodipine Besylate* (Norvasc*) 5 Mg Tablet, 5 MG PO BID, TAB 05/23/18 Losartan-Hydrochlorothiazide (Losartan-HCTZ) 100-25 Mg Tab, 1 TAB PO DAILY, TAB 05/23/18 Medications Current Medications Levothyroxine Sodium (Synthroid) 50 mcg BEFORE BREAKFAST PO Last administered on 07/01/18at 06:29; Admin Dose 50 MCG; Start 05/30/18 at 07:00 Mometasone Furoate (Asmanex) 1 puff DAILY INH Last administered on 07/01/18at 08:10; Admin Dose 1 PUFF; Start 05/29/18 at 11:00 Atorvastatin Calcium (Lipitor) 10 mg DAILY@21 PO Last administered on 06/30/18at 21:21; Admin Dose 10 MG; Start 05/29/18 at 21:00 Latanoprost (Xalatan) 1 drop HS BOTH EYES Last administered on 06/30/18at 21:22; Admin Dose 1 DROP; Start 06/01/18 at 21:00 Amlodipine Besylate (Norvasc) 5 mg DAILY PO ; Start 06/03/18 at 09:00; Status Hold Pantoprazole (Protonix Tab) 40 mg DAILY@06 PO Last administered on 07/01/18at 05:12; Admin Dose 40 MG; Start 06/05/18 at 06:00 Metoclopramide HCl (Reglan) 5 mg TID PRN IV Nausea; Start 06/06/18 at 11:00 Polyethylene Glycol (Miralax) 17 gm BID PRN PO CONSTIPATION; Start 06/06/18 at 14:00 Bisacodyl (Dulcolax Supp) 10 mg DAILY PRN [place] CONSTIPATION; Start 06/06/18 at 14:00 IV Flush (NS 10 ml) 10 ml PRN PRN IV IV PROTOCOL; Start 06/06/18 at 16:00 Nystatin (Nystatin Susp) 5 ml QID PO Last administered on 07/01/18at 16:44; Admin Dose 5 ML; Start 06/06/18 at 17:00 Metoprolol Tartrate (Lopressor) 25 mg BID PO Last administered on 06/30/18at 21:21; Admin Dose 25 MG; Start 06/13/18 at 21:00 Metoprolol Tartrate (Lopressor) 5 mg Q4H PRN IV HR>110 Hold SBP<100; Start 06/13/18 at 10:30 Morphine Sulfate (morphine) 6 mg Q2H PRN PO FOR NON CARDIAC PAIN (4-10); Start 06/13/18 at 11:30 Docusate Sodium (Colace) 100 mg DAILY PRN PO CONSTIPATION; Start 06/21/18 at 12:00 Warfarin Sodium (Coumadin) 5 mg DAILY@17 PO Last administered on 06/29/18at 17:12; Admin Dose 5 MG; Start 06/21/18 at 17:00; Status Hold Miscellaneous Information (Pending [facility] Order For Wound Care) This patient gomes... PRN PRN XX WOUND CARE; Start 06/21/18 at 16:00 Amiodarone HCl (Cordarone) 200 mg BID PO Last administered on 07/01/18at 08:11; Admin Dose 200 MG; Start 06/22/18 at 21:00 Miscellaneous Information (*Order Clarification Bulletin) MEDICATION REQUIRES CLARIFICATION:PLE... Q8H XX Last administered on 06/30/18at 12:00; Admin Dose 1 EA; Start 06/26/18 at 12:00 Ceftriaxone Sodium 50 ml @ 100 mls/hr Q24H IVPB Last administered on 07/01/18at 12:09; Admin Dose 100 MLS/HR; Start 06/30/18 at 13:00 Bumetanide (Bumex) 0.5 mg DAILY@0600 PO ; Start 07/02/18 at 06:00 Assessment/Plan Hospital Course (Demo Recall) 62-year-old female underwent coronary angiogram. 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 I did insert the catheter for her and she was anuric. Since then she has improved and has been making urine and the urine was clear however today her urine was bloody. We checked her postvoid residual and she had only 175 mL. Urine was sent for culture and sensitivity. Her last urine culture was no growth after 48 hours. The patient has been having hematuria for the past 2 days and today as she is to drop to have the physical therapy a lot of blood came out. I ordered CT scan of the abdomen and pelvis to see if the hematoma has fistulized into the bladder. She underwent a CT scan and that was reported: 1. Compared to the previous exam of 06/06/2018, the previously seen right lower quadrant pigtail catheter has been removed and the chronic hemoperitoneum or pelvic hematoma has decreased in volume now estimated at 1033 cc compared to all 1260 cc with evolution of the blood products, the attenuation decreasing from 72 HU to 45 HU. Continued surveillance is recommended with follow-up CT as determined clinically. 2. Atrophic uterus without endometrial thickening or other findings to explain the patient's provided history of vaginal bleeding. 3. Post thoracotomy changes with marked cardiomegaly, mitral valve prosthesis, left ventricular apex calcification and increased bibasilar subsegmental atelectasis. 4. Nodular contour to the liver consistent with cirrhosis is again noted. 5. Cholelithiasis without evidence for cholecystitis. 6. Stable mild splenomegaly. 7. Tiny left intrarenal calculus without hydronephrosis. 8. Contracted urinary bladder is difficult to evaluate. 9. Resolved small bowel wall thickening, enteric contrast media within the colon with diverticular disease but no diverticulitis. 10. Resolved anasarca pattern of the subcutaneous tissues I did call the radiologist who read the CT scan and discussed with him the clinical reasons I requested the CT scan and the suspicion that I had for a fistula. He did review the CT while I was talking with him and added an amendment to the report that says: AMENDMENT: 07/01/2018 7:59:21 PM Anjum Magallon D.o A telephone conversation takes place with the patient's urologist, Dr. Godwin, at 19:50 and he kindly provides additional history of sudden onset of hematuria upon standing. Upon further review of the images, there is loss of the normal fat plane between the pelvic hematoma with the anterior dome of the urinary bladder which cannot exclude the possibility of a fistula between the hematoma and a bladder that would explain the patients hematuria. There is preservation of the fat plane between the hematoma and the middle and inferior portion of the anterior urinary bladder. There is no evidence of loss of fat plane between the hematoma and vagina to suggest a fistula in this location. It is discussed that the patient would likely benefit from further evaluation with a CT cystogram performed in the prone position to limit the amount of contrast to opacify the potential fistula. Therefore I will order a CT cystogram to be done in the morning. I will have the nurse insert a Mensah catheter tonight so the bladder could be filled with contrast material in a.m. to do the CT cystogram. I did talk to the patient's daughter and niece and who were at her bedside. I explained to them what we are looking for and answered all their questions. JOAQUIN DE LEON MD Jul 01, 2018 20:33
[2018-07-01] MEDS: LATANOPROST 0.005% 2.5 ML OPH BOTH EYES SCH (21:49)
[2018-07-01] MEDS: ATORVASTATIN 10 MG TAB PO SCH (21:49)
[2018-07-02] VITALS (9 sets, daily range): BP systolic 106–121; BP diastolic 49–59; PULSE 78–101; RESP 17–22
[2018-07-02] MEDS: PANTOPRAZOLE (EC) 40 MG TAB PO SCH (05:51)
[2018-07-02] MEDS: LEVOTHYROXINE 50 MCG TAB PO SCH (05:51)
[2018-07-02] MEDS ORDERED: BUMETANIDE 1 MG TAB PO SCH (06:00)
[2018-07-02] MEDS ORDERED: POTASSIUM CHLORIDE (SR) 20 MEQ TAB PO STA (08:29)
[2018-07-02] MEDS: NYSTATIN SUSP 5 ML CUP PO SCH ×4 (09:00→20:15)
--- NOTE | 2018-07-02 09:28 | PN ---
DATE: 07/02/2018 SUBJECTIVE: The patient continues to have hematuria. Mensah catheter was placed. The patient is pen ding a cystogram. No other events noted. OBJECTIVE: VITAL SIGNS: Blood pressure is 117/54, respirations 18, pulse 75, temperature 97.4. HEENT: Head is normocephalic. NECK: Supple. HEART: Regular rate. LUNGS: Show diminished breath sounds at the base. ABDOMEN: Soft, nontender to palpation without rebound or guarding. EXTREMITIES: Negative for clubbing, cyanosis, no edema. DERMATOLOGIC: No rashes. MUSCULOSKELETAL: No joint effusion. NEUROLOGIC: No change in exam. MEDICATIONS: Reviewed. LABORATORY DATA: Shows white count 4.6, hemoglobin 8.1, platelet count 204. Sodium 136, potassium 3 .4, BUN 24, creatinine 0.77. ASSESSMENT AND PLAN: 1. Nonoliguric acute kidney injury with previously normal baseline creatinine. Etiology of acute ki dney injury is secondary to acute tubular necrosis. Renal function is improved. Continue to monitor . 2. Volume overload, acute heart failure. The patient is clinically euvolemic. Continue low-dose di uretic therapy and monitor closely. 3. Hematuria. The patient is status post Mensah catheter placement. Pending possible cystoscopy, fo llow up with urology. 4. Hyponatremia, resolved. 5. Hypokalemia, replete with potassium chloride. 6. Anemia. Monitor hemoglobin and hematocrit levels. 7. Mechanical heart valve. Continue anticoagulation per cardiology. 8. Sepsis secondary to urinary tract infection. The patient is completing antibiotic course. 9. Hypothyroidism. Continue Synthroid. 10. Dyslipidemia. Continue statin therapy. 11. Hypertension. Continue current blood pressure regimen. 12. History of intra-abdominal hematoma. Dictated By: GWYN FABIAN DO NR/NTS Conf#: [id number] DID#: [id number] CC: JOAQUIN DE LEON MD; CHRIS LAZAR MD; JULY VALENTIN MD;*EndCC*
--- NOTE | 2018-07-02 12:41 | PN ---
Date/Time of Note Date/Time of Note DATE: 07/02/18 TIME: 12:41 Assessment/Plan VTE Prophylaxis [place] [facility]: 3 [place]CD applied [place] [facility] Yes Pharmacological prophylaxis: NA/contraindicated Pharm contraindication: bleeding Lines/Catheters [facility] PICC Line Central line still needed: Yes Urinary Cath still in place: Yes Reason Cath still needed: skin wounds contaminated by urine Assessment/Plan Hospital Course - Hematuria - - gush of blood cameout while standing up - stat CT abdomen - urology follows - stat h/h; H/H q 6H -Nose/oropharyngeal bleed on 06/11/2018, stopped after heparin was held. -Recent retroperitoneal bleed secondary to vascular injury status post stent placement. Monitor H and H. S/p eval by Dr. Kilpatrick, vascular surgery consultation. Observe. -Leukocytosis, resolved. Dr. Castellanos is following in infection disease consultation. Patient is off antibiotics. -Status post left heart catheterization with no significant obstructive coronary artery disease by Dr. Moreno on 05/27/2018. -Anemia of acute blood loss, status post blood transfusion, continue to monitor hemoglobin and hematocrit. -Urinary incontinence. Dr. Ashford is following in urology consultation. -Acute illness myopathy -Status post mitral valve replacement with mechanical valve in 1999 in [facility]. Continue Coumadin, monitor PT/INR. -HTN, continue metoprolol -Hyperlipidemia -Hypothyroidism, continue levothyroxine -History of asthma Result Diagram: 07/02/18 1208 07/02/18 0601 Results 24hrs Laboratory Tests Test 07/01/18 17:50 07/01/18 18:10 07/02/18 00:28 07/02/18 06:01 Stool Occult Blood POSITIVE Hemoglobin 8.4 L 8.2 L 8.1 L Hematocrit 26.1 L 25.8 L 25.0 L White Blood Count 4.6 L Red Blood Count 2.59 L Mean Corpuscular 96.5 Volume Mean Corpuscular 31.3 Hemoglobin Mean Corpuscular 32.4 Hemoglobin Concent Red Cell 17.2 H Distribution Width Platelet Count 204 Mean Platelet Volume 9.3 Immature 3.200 H Granulocytes % Neutrophils % 59.2 Lymphocytes % 27.9 Monocytes % 7.6 Eosinophils % 1.5 Basophils % 0.6 Nucleated Red Blood 0.0 Cells % Immature 0.150 H Granulocytes # Neutrophils # 2.7 Lymphocytes # 1.3 Monocytes # 0.4 Eosinophils # 0.1 Basophils # 0.0 Nucleated Red Blood 0.0 Cells # Sodium Level 136 Potassium Level 3.4 L Chloride Level 96 L Carbon Dioxide Level 33 H Anion Gap 7 Blood Urea Nitrogen 24 H Creatinine 0.77 Est Glomerular > 60 Filtrat Rate mL/min Glucose Level 111 # Calcium Level 8.8 Phosphorus Level 4.3 Magnesium Level 1.9 Test 07/02/18 12:08 Hemoglobin 9.1 L Hematocrit 27.9 L Subjective 24 Hr Interval Summary Free Text/Dictation Patient denies any pain Exam/Review of Systems Exam Vitals Vital Signs Date Temp Pulse Resp B/P (MAP) Pulse Ox O2 O2 Flow FiO2 Time Delivery Rate 07/02/18 98.3 80 17 116/49 93 11:40 (71) 07/01/18 Room Air 15:51 Intake and Output 07/01/18 07/01/18 07/02/18 1515:00 23:00 07:00 IntakeIntake Total 650 ml 400 ml OutputOutput Total 200 ml BalanceBalance 650 ml 200 ml Constitutional: well developed Head: normocephalic, atraumatic Neck: supple Respiratory: clear to auscultation Cardiovascular: regular rate and rhythm Gastrointestinal: soft, non-tender Extremities: normal pulses Results Results 24hrs Laboratory Tests Test 07/01/18 17:50 07/01/18 18:10 07/02/18 00:28 07/02/18 06:01 Stool Occult Blood POSITIVE Hemoglobin 8.4 L 8.2 L 8.1 L Hematocrit 26.1 L 25.8 L 25.0 L White Blood Count 4.6 L Red Blood Count 2.59 L Mean Corpuscular 96.5 Volume Mean Corpuscular 31.3 Hemoglobin Mean Corpuscular 32.4 Hemoglobin Concent Red Cell 17.2 H Distribution Width Platelet Count 204 Mean Platelet Volume 9.3 Immature 3.200 H Granulocytes % Neutrophils % 59.2 Lymphocytes % 27.9 Monocytes % 7.6 Eosinophils % 1.5 Basophils % 0.6 Nucleated Red Blood 0.0 Cells % Immature 0.150 H Granulocytes # Neutrophils # 2.7 Lymphocytes # 1.3 Monocytes # 0.4 Eosinophils # 0.1 Basophils # 0.0 Nucleated Red Blood 0.0 Cells # Sodium Level 136 Potassium Level 3.4 L Chloride Level 96 L Carbon Dioxide Level 33 H Anion Gap 7 Blood Urea Nitrogen 24 H Creatinine 0.77 Est Glomerular > 60 Filtrat Rate mL/min Glucose Level 111 # Calcium Level 8.8 Phosphorus Level 4.3 Magnesium Level 1.9 Test 07/02/18 12:08 Hemoglobin 9.1 L Hematocrit 27.9 L Medications Medication Current Medications Levothyroxine Sodium (Synthroid) 50 mcg BEFORE BREAKFAST PO Last administered on 07/02/18 05:51; Admin Dose 50 MCG; Start 05/30/18 at 07:00 Mometasone Furoate (Asmanex) 1 puff DAILY INH Last administered on 07/01/18 08:10; Admin Dose 1 PUFF; Start 05/29/18 at 11:00 Atorvastatin Calcium (Lipitor) 10 mg DAILY@21 PO Last administered on 07/01/18 21:49; Admin Dose 10 MG; Start 05/29/18 at 21:00 Latanoprost (Xalatan) 1 drop HS BOTH EYES Last administered on 07/01/18 21:49; Admin Dose 1 DROP; Start 06/01/18 at 21:00 Amlodipine Besylate (Norvasc) 5 mg DAILY PO ; Start 06/03/18 at 09:00; Status Hold Pantoprazole (Protonix Tab) 40 mg DAILY@06 PO Last administered on 07/02/18 05:51; Admin Dose 40 MG; Start 06/05/18 at 06:00 Metoclopramide HCl (Reglan) 5 mg TID PRN IV Nausea; Start 06/06/18 at 11:00 Polyethylene Glycol (Miralax) 17 gm BID PRN PO CONSTIPATION; Start 06/06/18 at 14:00 Bisacodyl (Dulcolax Supp) 10 mg DAILY PRN [place] CONSTIPATION; Start 06/06/18 at 14:00 IV Flush (NS 10 ml) 10 ml PRN PRN IV IV PROTOCOL; Start 06/06/18 at 16:00 Nystatin (Nystatin Susp) 5 ml QID PO Last administered on 07/01/18 21:49; Admin Dose 5 ML; Start 06/06/18 at 17:00 Metoprolol Tartrate (Lopressor) 25 mg BID PO Last administered on 06/30/18 21:21; Admin Dose 25 MG; Start 06/13/18 at 21:00 Metoprolol Tartrate (Lopressor) 5 mg Q4H PRN IV HR>110 Hold SBP<100; Start 06/13/18 at 10:30 Morphine Sulfate (morphine) 6 mg Q2H PRN PO FOR NON CARDIAC PAIN (4-10); Start 06/13/18 at 11:30 Docusate Sodium (Colace) 100 mg DAILY PRN PO CONSTIPATION; Start 06/21/18 at 12:00 Warfarin Sodium (Coumadin) 5 mg DAILY@17 PO Last administered on 06/29/18at 17:12; Admin Dose 5 MG; Start 06/21/18 at 17:00; Status Hold Miscellaneous Information (Pending [facility] Order For Wound Care) This patient gomes... PRN PRN XX WOUND CARE; Start 06/21/18 at 16:00 Amiodarone HCl (Cordarone) 200 mg BID PO Last administered on 07/01/18at 21:50; Admin Dose 200 MG; Start 06/22/18 at 21:00 Miscellaneous Information (*Order Clarification Bulletin) MEDICATION REQUIRES CLARIFICATION:PLE... Q8H XX Last administered on 06/30/18at 12:00; Admin Dose 1 EA; Start 06/26/18 at 12:00 Ceftriaxone Sodium 50 ml @ 100 mls/hr Q24H IVPB Last administered on 07/01/18at 12:09; Admin Dose 100 MLS/HR; Start 06/30/18 at 13:00 Bumetanide (Bumex) 0.5 mg DAILY@0600 PO Last administered on 07/02/18at 05:51; Admin Dose 0.5 MG; Start 07/02/18 at 06:00; Status Hold ABDIRASHID PRATHER Jul 02, 2018 12:41
--- NOTE | 2018-07-02 13:25 | CONS ---
Consult Date/Type/Reason Admit Date/Time May 28, 2018 at 17:52 Initial Consult Date 06/03/18 Type of Consultation: Urology Reason for Consultation Pelvic hematoma and gross hematuria Requesting Provider: JULY VALENTIN MD Date/Time of Note DATE: 07/02/18 TIME: 13:18 Subjective Patient is comfortable Objective Vitals Vital Signs Date Temp Pulse Resp B/P (MAP) Pulse Ox O2 O2 Flow FiO2 Time Delivery Rate 07/02/18 101 12:01 07/02/18 98.3 17 116/49 93 11:40 (71) 07/01/18 Room Air 15:51 Intake and Output 07/01/18 07/01/18 07/02/18 1515:00 23:00 07:00 IntakeIntake Total 650 ml 400 ml OutputOutput Total 200 ml BalanceBalance 650 ml 200 ml Exam Mensah catheter is draining gross bloody urine, dark old blood. 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 Results/Medications Result Diagram: 07/02/18 1208 07/02/18 0601 Results 24 hrs Laboratory Tests Test 07/01/18 17:50 07/01/18 18:10 07/02/18 00:28 07/02/18 06:01 Stool Occult Blood POSITIVE Hemoglobin 8.4 L 8.2 L 8.1 L Hematocrit 26.1 L 25.8 L 25.0 L White Blood Count 4.6 L Red Blood Count 2.59 L Mean Corpuscular 96.5 Volume Mean Corpuscular 31.3 Hemoglobin Mean Corpuscular 32.4 Hemoglobin Concent Red Cell 17.2 H Distribution Width Platelet Count 204 Mean Platelet Volume 9.3 Immature 3.200 H Granulocytes % Neutrophils % 59.2 Lymphocytes % 27.9 Monocytes % 7.6 Eosinophils % 1.5 Basophils % 0.6 Nucleated Red Blood 0.0 Cells % Immature 0.150 H Granulocytes # Neutrophils # 2.7 Lymphocytes # 1.3 Monocytes # 0.4 Eosinophils # 0.1 Basophils # 0.0 Nucleated Red Blood 0.0 Cells # Sodium Level 136 Potassium Level 3.4 L Chloride Level 96 L Carbon Dioxide Level 33 H Anion Gap 7 Blood Urea Nitrogen 24 H Creatinine 0.77 Est Glomerular > 60 Filtrat Rate mL/min Glucose Level 111 # Calcium Level 8.8 Phosphorus Level 4.3 Magnesium Level 1.9 Test 07/02/18 12:08 Hemoglobin 9.1 L Hematocrit 27.9 L Home Meds Reported Medications Albuterol Sulfate* (Ventolin HFA*) 18 Gm Hfa.aer.ad, 2 PUFF INHALATION Q4H, #1 INHALER 05/26/18 Ergocalciferol (Vitamin D2) (VITAMIN D2) 50,000 Unit Capsule, 60365 UNIT PO [id number], CAP 05/23/18 Warfarin Sodium* (Coumadin*) 5 Mg Tablet, 5 MG PO Q TUES,THUR,SAT, TAB 05/23/18 Warfarin Sodium* (Coumadin*) 4 Mg Tablet, 4 MG PO Q MON,WED,FRI,SUN, TAB 05/23/18 Furosemide* (Furosemide*) 20 Mg Tablet, 20 MG PO DAILY, #60 TAB TAKE Q 2 DAYS 05/23/18 Simvastatin* (Zocor*) 20 Mg Tablet, 20 MG PO QHS, #30 TAB 05/23/18 Ranitidine Hcl* (Ranitidine Hcl*) 150 Mg Tablet, 150 MG PO HS, #30 TAB 05/23/18 Acetaminophen (Mapap) 500 Mg Capsule, 500 MG PO BID PRN for PAIN, CAP 05/23/18 Levothyroxine Sodium* (Levothyroxine Sodium*) 50 Mcg Tablet, 50 MCG PO BEFORE BREAKFAST, #30 TAB 05/23/18 Spironolactone* (Aldactone*) 25 Mg Tablet, 25 MG PO DAILY, #30 TAB 05/23/18 Beclomethasone Dipropionate (Qvar Redihaler (40 MCG)) 10.6 Gm Hfa.aeroba, 10.6 GM IH DAILY, INH 05/23/18 Amlodipine Besylate* (Norvasc*) 5 Mg Tablet, 5 MG PO BID, TAB 05/23/18 Losartan-Hydrochlorothiazide (Losartan-HCTZ) 100-25 Mg Tab, 1 TAB PO DAILY, TAB 05/23/18 Medications Current Medications Levothyroxine Sodium (Synthroid) 50 mcg BEFORE BREAKFAST PO Last administered on 07/02/18at 05:51; Admin Dose 50 MCG; Start 05/30/18 at 07:00 Mometasone Furoate (Asmanex) 1 puff DAILY INH Last administered on 07/01/18at 08:10; Admin Dose 1 PUFF; Start 05/29/18 at 11:00 Atorvastatin Calcium (Lipitor) 10 mg DAILY@21 PO Last administered on 07/01/18at 21:49; Admin Dose 10 MG; Start 05/29/18 at 21:00 Latanoprost (Xalatan) 1 drop HS BOTH EYES Last administered on 07/01/18at 21:49; Admin Dose 1 DROP; Start 06/01/18 at 21:00 Amlodipine Besylate (Norvasc) 5 mg DAILY PO ; Start 06/03/18 at 09:00; Status Hold Pantoprazole (Protonix Tab) 40 mg DAILY@06 PO Last administered on 07/02/18at 05:51; Admin Dose 40 MG; Start 06/05/18 at 06:00 Metoclopramide HCl (Reglan) 5 mg TID PRN IV Nausea; Start 06/06/18 at 11:00 Polyethylene Glycol (Miralax) 17 gm BID PRN PO CONSTIPATION; Start 06/06/18 at 14:00 Bisacodyl (Dulcolax Supp) 10 mg DAILY PRN [place] CONSTIPATION; Start 06/06/18 at 14:00 IV Flush (NS 10 ml) 10 ml PRN PRN IV IV PROTOCOL; Start 06/06/18 at 16:00 Nystatin (Nystatin Susp) 5 ml QID PO Last administered on 07/01/18at 21:49; Admin Dose 5 ML; Start 06/06/18 at 17:00 Metoprolol Tartrate (Lopressor) 25 mg BID PO Last administered on 06/30/18at 21:21; Admin Dose 25 MG; Start 06/13/18 at 21:00 Metoprolol Tartrate (Lopressor) 5 mg Q4H PRN IV HR>110 Hold SBP<100; Start 06/13/18 at 10:30 Morphine Sulfate (morphine) 6 mg Q2H PRN PO FOR NON CARDIAC PAIN (4-10); Start 06/13/18 at 11:30 Docusate Sodium (Colace) 100 mg DAILY PRN PO CONSTIPATION; Start 06/21/18 at 12:00 Warfarin Sodium (Coumadin) 5 mg DAILY@17 PO Last administered on 06/29/18at 17:12; Admin Dose 5 MG; Start 06/21/18 at 17:00 Miscellaneous Information (Pending [facility] Order For Wound Care) This patient gomes... PRN PRN XX WOUND CARE; Start 06/21/18 at 16:00 Amiodarone HCl (Cordarone) 200 mg BID PO Last administered on 07/01/18at 21:50; Admin Dose 200 MG; Start 06/22/18 at 21:00 Miscellaneous Information (*Order Clarification Bulletin) MEDICATION REQUIRES CLARIFICATION:PLE... Q8H XX Last administered on 06/30/18at 12:00; Admin Dose 1 EA; Start 06/26/18 at 12:00 Ceftriaxone Sodium 50 ml @ 100 mls/hr Q24H IVPB Last administered on 07/01/18at 12:09; Admin Dose 100 MLS/HR; Start 06/30/18 at 13:00 Bumetanide (Bumex) 0.5 mg DAILY@0600 PO Last administered on 07/02/18at 05:51; Admin Dose 0.5 MG; Start 07/02/18 at 06:00; Status Hold Assessment/Plan Hospital Course (Demo Recall) 62-year-old female underwent coronary angiogram. 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 I did insert the catheter for her and she was anuric. Since then she has improved and has been making urine and the urine was clear however today her urine was bloody. We checked her postvoid residual and she had only 175 mL. Urine was sent for culture and sensitivity. Her last urine culture was no growth after 48 hours. The patient has been having hematuria for the past 2 days and today as she is to drop to have the physical therapy a lot of blood came out. I ordered CT scan of the abdomen and pelvis to see if the hematoma has fistulized into the bladder. She underwent a CT scan and that was reported: 1. Compared to the previous exam of 06/06/2018, the previously seen right lower quadrant pigtail catheter has been removed and the chronic hemoperitoneum or pelvic hematoma has decreased in volume now estimated at 1033 cc compared to all 1260 cc with evolution of the blood products, the attenuation decreasing from 72 HU to 45 HU. Continued surveillance is recommended with follow-up CT as determined clinically. 2. Atrophic uterus without endometrial thickening or other findings to explain the patient's provided history of vaginal bleeding. 3. Post thoracotomy changes with marked cardiomegaly, mitral valve prosthesis, left ventricular apex calcification and increased bibasilar subsegmental atelectasis. 4. Nodular contour to the liver consistent with cirrhosis is again noted. 5. Cholelithiasis without evidence for cholecystitis. 6. Stable mild splenomegaly. 7. Tiny left intrarenal calculus without hydronephrosis. 8. Contracted urinary bladder is difficult to evaluate. 9. Resolved small bowel wall thickening, enteric contrast media within the colon with diverticular disease but no diverticulitis. 10. Resolved anasarca pattern of the subcutaneous tissues I did call the radiologist who read the CT scan and discussed with him the clinical reasons I requested the CT scan and the suspicion that I had for a fistula. He did review the CT while I was talking with him and added an amendment to the report that says: AMENDMENT: 07/01/2018 7:59:21 PM Anjum Magallon D.o A telephone conversation takes place with the patient's urologist, Dr. Godwin, at 19:50 and he kindly provides additional history of sudden onset of hematuria upon standing. Upon further review of the images, there is loss of the normal fat plane between the pelvic hematoma with the anterior dome of the urinary bladder which cannot exclude the possibility of a fistula between the hematoma and a bladder that would explain the patients hematuria. There is preservation of the fat plane between the hematoma and the middle and inferior portion of the anterior urinary bladder. There is no evidence of loss of fat plane between the hematoma and vagina to suggest a fistula in this location. It is discussed that the patient would likely benefit from further evaluation with a CT cystogram performed in the prone position to limit the amount of contrast to opacify the potential fistula. The patient underwent a CT cystogram this morning and that indeed did show the f istula between the bladder and the pelvic hematoma. The bleeding in her urine is coming from that hematoma. I did show her son the pictures and explained to him that if the hematoma drains through the bladder we just have to keep the Mensah catheter in and wait for it to drain completely and then the bladder hopefully will heal by itself and if it does not we could always do surgery and close it. I discussed that also was Dr. Zurita. The patient may be placed back on Coumadin and she may eat and also get the physical therapy. The treatment plan could change depending on her progress. JOAQUIN DE LEON MD Jul 02, 2018 13:25
[2018-07-02] MEDS: METOPROLOL 25 MG TAB PO SCH ×2 (13:28→20:12)
[2018-07-02] MEDS: AMIODARONE 200 MG TAB PO SCH ×2 (13:28→20:16)
[2018-07-02] MEDS: MOMETASONE 0.24 GM INHALER INH SCH (13:29)
[2018-07-02] MEDS: CEFTRIAXONE 1 GM/50 ML (PMX) 50 ML IVPB SCH (13:29)
--- NOTE | 2018-07-02 15:25 | CONS ---
Assessment/Plan Assessment/Plan Hospital Course (Demo Recall) IMP: 1.cad s/p LHC with no sig obstructive cad 2.HTN 3.RP Bleed s/p transfusions now stable and tolerating heparin/coumadin loading. Then had recurrent bled overnight now s/p covered stent to ASSOCIATE GENETICS PROFESSOR/Ext iliac. Stable collection by abd CT 06/06 but still with pigtail catheter in place 4.HL 5.MVR-mechanical 6.anemia- s/p repair of R ASSOCIATE GENETICS PROFESSOR/illiac. Had hemoptysis with subsequent drop in Hgb again and holding of heparin. Had some mild blood tinged sputum 7.Hypothyroid 8. GOMES-negative Head CT 9. Fevers-with positive ua 10. UTI-recurrent by u/a 06/29 11.ARF-? Contrast induced/compression from hematoma- now improving with increased urine output and slowly decreasing data analysis manager 12. Coagulopathy-now therapeutic 14. LE weakness-? compression from hematoma and exacerbated by femoral compression after cath-now resolved 15. arterial insuff- LLE- s/p TITLE EXAMINER/thrombolysis 06/04 successfully with palpable pulses/B DP/PT and remain that way 16. PAF/AFL-rate controlled 17. 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 18. Epistaxis-improved 19. anemia-stable Recc: -Now on tele -Continue BB with well controlled Hr's -Continue statin -s/p course of abx's -ongoing ID f/u -F/U data analysis manager/K closely with creatnine now normalized and volume status improved. -Follow HGb clsoely which has been stable to improved actually -PT/ambulation -Continue PO bumex now daily and follow volume status closely -will continue amio bid for now in attempt to return patient to SR -Urology following with findings of apparent bladder fistula and thus draining of the hematoma through the bladder causing hematuria. Per urology thus ok to continue couamdin. Follow hematuria for resolution and assess need for spontaneous closure versus need for repair Consultation Date/Type/Reason Admit Date/Time May 28, 2018 at 17:52 Initial Consult Date 05/28/18 Type of Consult Cardiology Reason for Consultation MVR Requesting Provider: JULY VALENTIN MD Date/Time of Note DATE: 07/02/18 TIME: 15:21 Exam/Review of Systems Vital Signs Vitals Vital Signs Date Temp Pulse Resp B/P (MAP) Pulse Ox O2 O2 Flow FiO2 Time Delivery Rate 07/02/18 101 12:01 07/02/18 98.3 17 116/49 93 11:40 (71) 07/01/18 Room Air 15:51 Intake and Output 07/01/18 07/01/18 07/02/18 1414:59 22:59 06:59 IntakeIntake Total 650 ml 400 ml OutputOutput Total 200 ml BalanceBalance 650 ml 200 ml Exam Exam Review of Systems: CONSTITUTIONAL: No fevers, chills. PULMONARY: No sob CARDIOVASCULAR: No chest pain/palpitations GASTROINTESTINAL: No nausea/vomiting. GENITOURINARY: No hematuria/dysuria. MUSCULOSKELETAL: No myagias/arthalgias. PSYCHIATRIC: The patient denies depression. NEUROLOGIC: No weakness Constitutional: alert Psych: no complaints Head: normocephalic ENMT: mucosa pink and moist Neck: supple, jvd (9 cm water) Respiratory: diminished breath sounds (at bases/B) Cardiovascular: regular rate and rhythm Gastrointestinal: soft, non-tender Musculoskeletal: muscle tone (normal) Extremities: edema (none) Neurological: other (No focal deficits) Labs Result Diagram: 07/02/18 1208 07/02/18 0601 Results 24hrs Laboratory Tests Test 07/01/18 17:50 07/01/18 18:10 07/02/18 00:28 07/02/18 06:01 Stool Occult Blood POSITIVE Hemoglobin 8.4 L 8.2 L 8.1 L Hematocrit 26.1 L 25.8 L 25.0 L White Blood Count 4.6 L Red Blood Count 2.59 L Mean Corpuscular 96.5 Volume Mean Corpuscular 31.3 Hemoglobin Mean Corpuscular 32.4 Hemoglobin Concent Red Cell 17.2 H Distribution Width Platelet Count 204 Mean Platelet Volume 9.3 Immature 3.200 H Granulocytes % Neutrophils % 59.2 Lymphocytes % 27.9 Monocytes % 7.6 Eosinophils % 1.5 Basophils % 0.6 Nucleated Red Blood 0.0 Cells % Immature 0.150 H Granulocytes # Neutrophils # 2.7 Lymphocytes # 1.3 Monocytes # 0.4 Eosinophils # 0.1 Basophils # 0.0 Nucleated Red Blood 0.0 Cells # Sodium Level 136 Potassium Level 3.4 L Chloride Level 96 L Carbon Dioxide Level 33 H Anion Gap 7 Blood Urea Nitrogen 24 H Creatinine 0.77 Est Glomerular > 60 Filtrat Rate mL/min Glucose Level 111 # Calcium Level 8.8 Phosphorus Level 4.3 Magnesium Level 1.9 Test 07/02/18 12:08 Hemoglobin 9.1 L Hematocrit 27.9 L Medications Medications Current Medications Levothyroxine Sodium (Synthroid) 50 mcg BEFORE BREAKFAST PO Last administered on 07/02/18 05:51; Admin Dose 50 MCG; Start 05/30/18 at 07:00 Mometasone Furoate (Asmanex) 1 puff DAILY INH Last administered on 07/02/18 13:29; Admin Dose 1 PUFF; Start 05/29/18 at 11:00 Atorvastatin Calcium (Lipitor) 10 mg DAILY@21 PO Last administered on 07/01/18 21:49; Admin Dose 10 MG; Start 05/29/18 at 21:00 Latanoprost (Xalatan) 1 drop HS BOTH EYES Last administered on 07/01/18 21:49; Admin Dose 1 DROP; Start 06/01/18 at 21:00 Amlodipine Besylate (Norvasc) 5 mg DAILY PO ; Start 06/03/18 at 09:00; Status Hold Pantoprazole (Protonix Tab) 40 mg DAILY@06 PO Last administered on 07/02/18 05:51; Admin Dose 40 MG; Start 06/05/18 at 06:00 Metoclopramide HCl (Reglan) 5 mg TID PRN IV Nausea; Start 06/06/18 at 11:00 Polyethylene Glycol (Miralax) 17 gm BID PRN PO CONSTIPATION; Start 06/06/18 at 14:00 Bisacodyl (Dulcolax Supp) 10 mg DAILY PRN [place] CONSTIPATION; Start 06/06/18 at 14:00 IV Flush (NS 10 ml) 10 ml PRN PRN IV IV PROTOCOL; Start 06/06/18 at 16:00 Nystatin (Nystatin Susp) 5 ml QID PO Last administered on 07/02/18 13:29; Admin Dose 5 ML; Start 06/06/18 at 17:00 Metoprolol Tartrate (Lopressor) 25 mg BID PO Last administered on 07/02/18 13:28; Admin Dose 25 MG; Start 06/13/18 at 21:00 Metoprolol Tartrate (Lopressor) 5 mg Q4H PRN IV HR>110 Hold SBP<100; Start 06/13/18 at 10:30 Morphine Sulfate (morphine) 6 mg Q2H PRN PO FOR NON CARDIAC PAIN (4-10); Start 06/13/18 at 11:30 Docusate Sodium (Colace) 100 mg DAILY PRN PO CONSTIPATION; Start 06/21/18 at 12:00 Warfarin Sodium (Coumadin) 5 mg DAILY@17 PO Last administered on 06/29/18at 17:12; Admin Dose 5 MG; Start 06/21/18 at 17:00 Miscellaneous Information [facility] This patient gomes... PRN PRN XX WOUND CARE; Start 06/21/18 at 16:00 Amiodarone HCl (Cordarone) 200 mg BID PO Last administered on 07/02/18at 13:28; Admin Dose 200 MG; Start 06/22/18 at 21:00 Miscellaneous Information (*Order Clarification Bulletin) MEDICATION REQUIRES CLARIFICATION:PLE... Q8H XX Last administered on 06/30/18at 12:00; Admin Dose 1 EA; Start 06/26/18 at 12:00 Ceftriaxone Sodium 50 ml @ 100 mls/hr Q24H IVPB Last administered on 07/02/18at 13:29; Admin Dose 100 MLS/HR; Start 06/30/18 at 13:00 Bumetanide (Bumex) 0.5 mg DAILY@0600 PO Last administered on 07/02/18at 05:51; Admin Dose 0.5 MG; Start 07/02/18 at 06:00; Status Hold CHRIS LAZAR Jul 02, 2018 15:25
--- NOTE | 2018-07-02 15:31 | CONS ---
[facility] HCIS Consult Follow-up Patient Name: Quyen Sexton Unit Number: [id number] Date of : 1955 Patient Status: Admitted Inpatient Attending Doctor: July Valentin MD Edit: SHARI MOLINA M.D. on 07/03/18 @ 01:47 Jesse: I discussed the management with JULIEN Hui and agree with her Assessment/Plan Assessment/Plan Hospital Course (Demo Recall) - Hematuria - CT abd pelvis 07/02/18 showed large extravasation of contrast administered through a F/c into the large anterior pelvic fluid collection is demonstrated, consistent with bladder rupture. no contrast seen within the vagina to suggest fistulization with the overlying urinary bladder. - UTI d/t Hafniae alvei and enterococcus species 06/30/18 - Coagulopathy / warfarin - improving - S/p severe sepsis due to UTI, resolved - S/p SIRS due to acute blood loss, resolved - S/p nasopharyngeal bleed on 06/11/2018, resolved - S/p UTI due to E. coli, resolved. 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, s/p covered stent placement 6 x 100 mm right common femoral artery and right external iliac artery, abdominal aortogram, catheter introduction to the abdominal aorta, JOSÉ MIGUEL guidance into the central artery 06/02/2018 - S/p retroperitoneal bleed - S/p acute anemia requiring PRBC - S/p CT guided placement of drainage catheter into pelvic hematoma 06/05/2018--> removed on 06/09/2018 - S/p FORREST - S/p L heart catheterization on 05/27/2018 showing no significant obstructive CAD - CAD s/p CABG in [facility] in 1982 - H/o MVR with mechanical valve, in 1999 - PAF - Cholelithiasis without e/o acute cholecystitis - Hypertension - Hyperlipidemia - Hypothyroidism - Asthma - S/p FOURNIER, resolved. CT head shows no acute findings - Venous JOSÉ MIGUEL of b/l LE was negative for DVT Recommendations: - Discontinue ceftriaxone (06/30/2018- 07/02/18) and start Zosyn to cover both Hafnai alvei and enterococcus, will adjust antibiotics according to sensitivity results. - Await final urine cx (Hafnai alvei and enterococcus species) and stool OB - F/u Echo - Urology following - ARU eval in progress Management discussed with patient, patient's and daughter at bedside, and with Dr. Molina. Thank you Consultation Date/Type/Reason Admit Date/Time May 28, 2018 at 17:52 Initial Consult Date 06/03/18 Type of Consult ID Requesting Provider: JULY VALENTIN MD Date/Time of Note DATE: 07/02/18 TIME: 15:22 24 HR Interval Summary Free Text/Dictation Patient continues to have hematuria. Draining through f/c. Per patient and family, patient has not been repositioning much in the bed d/t the f/c in place, she is afraid it will dislodge. I encouraged repositioning to prevent skin break down. The patient denies pain, fevers, chills, night sweats, sob, cp, cough, n/v/d, dysuria, pruritis, or rash. is feeding his banana at the bedside, and daughter is at the bedside. Exam/Review of Systems Exam Vitals Vital Signs Date Temp Pulse Resp B/P (MAP) Pulse Ox O2 O2 Flow FiO2 Time Delivery Rate 07/02/18 101 12:01 07/02/18 98.3 17 116/49 93 11:40 (71) 07/01/18 Room Air 15:51 Intake and Output 07/01/18 07/01/18 07/02/18 1515:00 23:00 07:00 IntakeIntake Total 650 ml 400 ml OutputOutput Total 200 ml BalanceBalance 650 ml 200 ml Allergies Coded Allergies No Known Allergy (Unverified06/09/18) Constitutional: alert, oriented, well developed Psych: no complaints, nl mood/affect Head: normocephalic, atraumatic Eyes: nl conjunctiva, nl lids, nl sclera ENMT: nl external ears & nose, nl nasal mucosa & septum, mucosa pink and moist (no thrush) Neck: supple, non-tender Respiratory: clear to auscultation, normal air movement Cardiovascular: regular rate and rhythm, nl pulses Gastrointestinal: soft, bowel sounds (normoactive), other (mild ttp LLQ, RLQ) Genitourinary - Female: other (f/c draining dark red ) Musculoskeletal: nl extremities to inspection Extremities: normal pulses Neurological: [employer] II-XII intact, nl mental status, nl speech, nl strength Skin: nl turgor, ecchymosis (scattered ); No rash or lesions Results Result Diagram: 07/02/18 1208 07/02/18 0601 Results 24hrs Laboratory Tests Test 07/01/18 17:50 07/01/18 18:10 07/02/18 00:28 07/02/18 06:01 Stool Occult Blood POSITIVE Hemoglobin 8.4 L 8.2 L 8.1 L Hematocrit 26.1 L 25.8 L 25.0 L White Blood Count 4.6 L Red Blood Count 2.59 L Mean Corpuscular 96.5 Volume Mean Corpuscular 31.3 Hemoglobin Mean Corpuscular 32.4 Hemoglobin Concent Red Cell 17.2 H Distribution Width Platelet Count 204 Mean Platelet Volume 9.3 Immature 3.200 H Granulocytes % Neutrophils % 59.2 Lymphocytes % 27.9 Monocytes % 7.6 Eosinophils % 1.5 Basophils % 0.6 Nucleated Red Blood 0.0 Cells % Immature 0.150 H Granulocytes # Neutrophils # 2.7 Lymphocytes # 1.3 Monocytes # 0.4 Eosinophils # 0.1 Basophils # 0.0 Nucleated Red Blood 0.0 Cells # Sodium Level 136 Potassium Level 3.4 L Chloride Level 96 L Carbon Dioxide Level 33 H Anion Gap 7 Blood Urea Nitrogen 24 H Creatinine 0.77 Est Glomerular > 60 Filtrat Rate mL/min Glucose Level 111 # Calcium Level 8.8 Phosphorus Level 4.3 Magnesium Level 1.9 Test 07/02/18 12:08 Hemoglobin 9.1 L Hematocrit 27.9 L Urine culture 06/30/18 growing Hafnia Alvei and enterococcus species Imaging Imaging CT abd pelvis 07/01/18 IMPRESSION: 1. Compared to the previous exam of 06/06/2018, the previously seen right lower quadrant pigtail catheter has been removed and the chronic hemoperitoneum or pelvic hematoma has decreased in volume now estimated at 1033 cc compared to all 1260 cc with evolution of the blood products, the attenuation decreasing from 72 HU to 45 HU. Continued surveillance is recommended with follow-up CT as determined clinically. 2. Atrophic uterus without endometrial thickening or other findings to explain the patient's provided history of vaginal bleeding. 3. Post thoracotomy changes with marked cardiomegaly, mitral valve prosthesis, left ventricular apex calcification and increased bibasilar subsegmental atelectasis. 4. Nodular contour to the liver consistent with cirrhosis is again noted. 5. Cholelithiasis without evidence for cholecystitis. 6. Stable mild splenomegaly. 7. Tiny left intrarenal calculus without hydronephrosis. 8. Contracted urinary bladder is difficult to evaluate. 9. Resolved small bowel wall thickening, enteric contrast media within the colon with diverticular disease but no diverticulitis. 10. Resolved anasarca pattern of the subcutaneous tissues. CT abd pelvis 07/02/18 IMPRESSION: Large extravasation of contrast adminstered through a [place] catheter into the large anterior pelvic fluid collection is demonstrated, consistent with bladder rupture. No contrast is seen within the vagina to suggest fistulization with the o verlying urinary bladder. Medications Medication Current Medications Levothyroxine Sodium (Synthroid) 50 mcg BEFORE BREAKFAST PO Last administered on 07/02/18 05:51; Admin Dose 50 MCG; Start 05/30/18 at 07:00 Mometasone Furoate (Asmanex) 1 puff DAILY INH Last administered on 07/02/18at 13:29; Admin Dose 1 PUFF; Start 05/29/18 at 11:00 Atorvastatin Calcium (Lipitor) 10 mg DAILY@21 PO Last administered on 07/01/18 21:49; Admin Dose 10 MG; Start 05/29/18 at 21:00 Latanoprost (Xalatan) 1 drop HS BOTH EYES Last administered on 07/01/18 21:49; Admin Dose 1 DROP; Start 06/01/18 at 21:00 Amlodipine Besylate (Norvasc) 5 mg DAILY PO ; Start 06/03/18 at 09:00; Status Hold Pantoprazole (Protonix Tab) 40 mg DAILY@06 PO Last administered on 3/23/19at 05:51; Admin Dose 40 MG; Start 06/05/18 at 06:00 Metoclopramide HCl (Reglan) 5 mg TID PRN IV Nausea; Start 06/06/18 at 11:00 Polyethylene Glycol (Miralax) 17 gm BID PRN PO CONSTIPATION; Start 06/06/18 at 14:00 Bisacodyl (Dulcolax Supp) 10 mg DAILY PRN [place] CONSTIPATION; Start 06/06/18 at 14:00 IV Flush (NS 10 ml) 10 ml PRN PRN IV IV PROTOCOL; Start 06/06/18 at 16:00 Nystatin (Nystatin Susp) 5 ml QID PO Last administered on 07/02/18 13:29; Admin Dose 5 ML; Start 06/06/18 at 17:00 Metoprolol Tartrate (Lopressor) 25 mg BID PO Last administered on 07/02/18 13:28; Admin Dose 25 MG; Start 06/13/18 at 21:00 Metoprolol Tartrate (Lopressor) 5 mg Q4H PRN IV HR>110 Hold SBP<100; Start 06/13/18 at 10:30 Morphine Sulfate (morphine) 6 mg Q2H PRN PO FOR NON CARDIAC PAIN (4-10); Start 06/13/18 at 11:30 Docusate Sodium (Colace) 100 mg DAILY PRN PO CONSTIPATION; Start 06/21/18 at 12:00 Warfarin Sodium (Coumadin) 5 mg DAILY@17 PO Last administered on 06/29/18at 17:12; Admin Dose 5 MG; Start 06/21/18 at 17:00 Miscellaneous Information (Pending [facility] Order For Wound Care) This patient h a... PRN PRN XX WOUND CARE; Start 06/21/18 at 16:00 Amiodarone HCl (Cordarone) 200 mg BID PO Last administered on 07/02/18 13:28; Admin Dose 200 MG; Start 06/22/18 at 21:00 Miscellaneous Information (*Order Clarification Bulletin) MEDICATION REQUIRES CLARIFICATION:PLE... Q8H XX Last administered on 06/30/18 12:00; Admin Dose 1 EA; Start 06/26/18 at 12:00 Ceftriaxone Sodium 50 ml @ 100 mls/hr Q24H IVPB Last administered on 3/23/19at 13:29; Admin Dose 100 MLS/HR; Start 06/30/18 at 13:00 Bumetanide (Bumex) 0.5 mg DAILY@0600 PO Last administered on 07/02/18at 05:51; Admin Dose 0.5 MG; Start 07/02/18 at 06:00; Status Hold WILIAM HUI NP Jul 02, 2018 15:31
[2018-07-02] MEDS: WARFARIN 5 MG TAB PO SCH (17:50)
[2018-07-02] MEDS: ATORVASTATIN 10 MG TAB PO SCH (20:15)
[2018-07-02] MEDS: LATANOPROST 0.005% 2.5 ML OPH BOTH EYES SCH (20:15)
[2018-07-02] MEDS: PIPER-TAZO 3.375 GM IV (PMX) 100 ML IVPB SCH (23:24)
[2018-07-03] VITALS (10 sets, daily range): BP systolic 105–114; BP diastolic 54–58; PULSE 66–100; RESP 18–20
[2018-07-03] MEDS: PIPER-TAZO 3.375 GM IV (PMX) 100 ML IVPB SCH ×4 (06:19→23:09)
[2018-07-03] MEDS: PANTOPRAZOLE (EC) 40 MG TAB PO SCH (06:20)
[2018-07-03] MEDS: LEVOTHYROXINE 50 MCG TAB PO SCH (06:20)
[2018-07-03] MEDS: AMIODARONE 200 MG TAB PO SCH ×2 (08:33→20:47)
[2018-07-03] MEDS: METOPROLOL 25 MG TAB PO SCH ×2 (08:34→20:47)
[2018-07-03] MEDS: NYSTATIN SUSP 5 ML CUP PO SCH ×4 (08:34→20:47)
[2018-07-03] MEDS: MOMETASONE 0.24 GM INHALER INH SCH (08:34)
--- NOTE | 2018-07-03 10:44 | PN ---
DATE: 07/03/2018 07/03/2018 SUBJECTIVE: The patient continues to have underlying hematuria. No hemoptysis or hematem esis. OBJECTIVE: VITAL SIGNS: Blood pressure is 113/54, respirations 20, pulse 100, temperature 97.9. HEENT: Head is normocephalic. NECK: Supple. HEART: Regular rate. LUNGS: Show diminished breath sounds at the base. ABDOMEN: Soft, nontender to palpation without rebound or guarding. EXTREMITIES: Negative for clubbing, cyanosis, no edema. DERMATOLOGIC: No rashes. MUSCULOSKELETAL: No joint effusion. NEUROLOGIC: No change in exam. ASSESSMENT AND PLAN: 1. Nonoliguric acute kidney injury with previously normal baseline creatinine. Etiology secondary t o acute tubular necrosis. Renal function is improved. Continue to monitor. 2. Hematuria. 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 Exp ectation is to await for the pelvic hematoma to drain through the communicating fistula. We will con tinue to monitor. Follow up with urology. 3. Volume overload, improved. Continue low-dose diuretic therapy. 4. Hyponatremia, resolved. 5. Anemia. Monitor hemoglobin and hematocrit levels. 6. Hypokalemia. Continue to monitor and replete as needed. 7. Mechanical heart valve. Continue anticoagulation. 8. Sepsis secondary to urinary tract infection. The patient is completing antibiotic course. 9. Hypothyroidism. Continue Synthroid. 10. Dyslipidemia. Continue statin therapy. 11. Hypertension. Continue current blood pressure regimen. 12. Intraabdominal hematoma. Dictated By: GWYN FABIAN DO NR/NTS Conf#: [id number] DID#: [id number] CC: JOAQUIN DE LEON MD; CHRIS LAZAR MD; JULY VALENTIN MD;*EndCC*
--- NOTE | 2018-07-03 12:24 | PN ---
Date/Time of Note Date/Time of Note DATE: 07/03/18 TIME: 12:24 Assessment/Plan VTE Prophylaxis Risk score (from Ns)>0 risk: 3 SCD applied (from Ns): Yes Pharmacological prophylaxis: NA/contraindicated Pharm contraindication: bleeding Lines/Catheters IV [facility]ter [facility] (from [facility] PICC Line Central line still needed: Yes Urinary Cath still in place: Yes Reason Cath still needed: skin wounds contaminated by urine Assessment/Plan Hospital Course - Hematuria - - gush of blood cameout while standing up - stat CT abdomen - urology follows - stat h/h; H/H q 6H -Nose/oropharyngeal bleed on 06/11/2018, stopped after heparin was held. -Recent retroperitoneal bleed secondary to vascular injury status post stent placement. Monitor H and H. S/p eval by Dr. Kilpatrick, vascular surgery consultation. Observe. -Leukocytosis, resolved. Dr. Castellanos is following in infection disease consultation. Patient is off antibiotics. -Status post left heart catheterization with no significant obstructive coronary artery disease by Dr. Moreno on 05/27/2018. -Anemia of acute blood loss, status post blood transfusion, continue to monitor hemoglobin and hematocrit. -Urinary incontinence. Dr. Ashford is following in urology consultation. -Acute illness myopathy -Status post mitral valve replacement with mechanical valve in 1999 in [facility]. Continue Coumadin, monitor PT/INR. -HTN, continue metoprolol -Hyperlipidemia -Hypothyroidism, continue levothyroxine -History of asthma Result Diagram: 07/02/18 1849 07/02/18 0601 Results 24hrs Laboratory Tests Test 07/02/18 18:49 07/03/18 06:45 Hemoglobin 8.8 L Hematocrit 26.9 L Prothrombin Time 17.2 #H Prothrombin Time Ratio 1.3 INR International Normalized Ratio 1.39 Subjective 24 Hr Interval Summary Free Text/Dictation Patient has no complaints Exam/Review of Systems Exam Vitals Vital Signs Date Temp Pulse Resp B/P (MAP) Pulse Ox O2 O2 Flow FiO2 Time Delivery Rate 07/03/18 66 12:14 07/03/18 97.9 18 105/56 96 Room Air 11:34 (72) Intake and Output 07/02/18 07/02/18 07/03/18 1515:00 23:00 07:00 IntakeIntake Total 50 ml 800 ml 200 ml OutputOutput Total 960 ml 1100 ml BalanceBalance -910 ml -300 ml 200 ml Constitutional: well developed Head: normocephalic, atraumatic Neck: supple Respiratory: clear to auscultation Cardiovascular: regular rate and rhythm Gastrointestinal: soft, non-tender Extremities: normal pulses Results Results 24hrs Laboratory Tests Test 07/02/18 18:49 07/03/18 06:45 Hemoglobin 8.8 L Hematocrit 26.9 L Prothrombin Time 17.2 #H Prothrombin Time Ratio 1.3 INR International Normalized Ratio 1.39 Medications Medication Current Medications Levothyroxine Sodium (Synthroid) 50 mcg BEFORE BREAKFAST PO Last administered on 07/03/18 06:20; Admin Dose 50 MCG; Start 05/30/18 at 07:00 Mometasone Furoate (Asmanex) 1 puff DAILY INH Last administered on 07/03/18 08:34; Admin Dose 1 PUFF; Start 05/29/18 at 11:00 Atorvastatin Calcium (Lipitor) 10 mg DAILY@21 PO Last administered on 07/02/18 20:15; Admin Dose 10 MG; Start 05/29/18 at 21:00 Latanoprost (Xalatan) 1 drop HS BOTH EYES Last administered on 07/02/18 20:15; Admin Dose 1 DROP; Start 06/01/18 at 21:00 Amlodipine Besylate (Norvasc) 5 mg DAILY PO ; Start 06/03/18 at 09:00; Status Hold Pantoprazole (Protonix Tab) 40 mg DAILY@06 PO Last administered on 07/03/18 06 :20; Admin Dose 40 MG; Start 06/05/18 at 06:00 Metoclopramide HCl (Reglan) 5 mg TID PRN IV Nausea; Start 06/06/18 at 11:00 Polyethylene Glycol (Miralax) 17 gm BID PRN PO CONSTIPATION; Start 06/06/18 at 14:00 Bisacodyl (Dulcolax Supp) 10 mg DAILY PRN [place] CONSTIPATION; Start 06/06/18 at 14:00 IV Flush (NS 10 ml) 10 ml PRN PRN IV IV PROTOCOL; Start 06/06/18 at 16:00 Nystatin (Nystatin Susp) 5 ml QID PO Last administered on 07/03/18 08:34; Admin Dose 5 ML; Start 06/06/18 at 17:00 Metoprolol Tartrate (Lopressor) 25 mg BID PO Last administered on 07/03/18 08:34; Admin Dose 25 MG; Start 06/13/18 at 21:00 Metoprolol Tartrate (Lopressor) 5 mg Q4H PRN IV HR>110 Hold SBP<100; Start 06/13/18 at 10:30 Morphine Sulfate (morphine) 6 mg Q2H PRN PO FOR NON CARDIAC PAIN (4-10); Start 06/13/18 at 11:30 Docusate Sodium (Colace) 100 mg DAILY PRN PO CONSTIPATION; Start 06/21/18 at 12:00 Warfarin Sodium (Coumadin) 5 mg DAILY@17 PO Last administered on 07/02/18 17:50; Admin Dose 5 MG; Start 06/21/18 at 17:00 Miscellaneous Information ([facility]) This patient gomes... PRN PRN XX WOUND CARE; Start 06/21/18 at 16:00 Amiodarone HCl (Cordarone) 200 mg BID PO Last administered on 07/03/18 08:33; Admin Dose 200 MG; Start 06/22/18 at 21:00 Miscellaneous Information (*Order Clarification Bulletin) MEDICATION REQUIRES CLARIFICATION:PLE... Q8H XX Last administered on 06/30/18 12:00; Admin Dose 1 EA; Start 06/26/18 at 12:00 Bumetanide (Bumex) 0.5 mg DAILY@0600 PO Last administered on 07/02/18 05:51; Admin Dose 0.5 MG; Start 07/02/18 at 06:00; Status Hold Piperacillin Sod/ Tazobactam Sod 100 ml @ 200 mls/hr Q6 IVPB Last administered on 07/03/18 12:13; Admin Dose 200 MLS/HR; Start 07/03/18 at 00:00 ABDIRASHID PRATHER Jul 03, 2018 12:24
--- NOTE | 2018-07-03 14:20 | CONS ---
Consult Date/Type/Reason Admit Date/Time May 28, 2018 at 17:52 Initial Consult Date 06/03/18 Type of Consultation: Urology Reason for Consultation Hematuria Requesting Provider: JULY VALENTIN MD Date/Time of Note DATE: 07/03/18 TIME: 14:12 Subjective The patient is comfortable. She only has pain when the suprapubic mass is palp ated. Objective Vitals Vital Signs Date Temp Pulse Resp B/P (MAP) Pulse Ox O2 O2 Flow FiO2 Time Delivery Rate 07/03/18 66 12:14 07/03/18 97.9 18 105/56 96 Room Air 11:34 (72) Intake and Output 07/02/18 07/02/18 07/03/18 1515:00 23:00 07:00 IntakeIntake Total 50 ml 800 ml 200 ml OutputOutput Total 960 ml 1100 ml BalanceBalance -910 ml -300 ml 200 ml Exam The Mensah catheter continues to drain bloody urine. It is dark old blood mixed with urine. The suprapubic mass/hematoma is smaller in size. Results/Medications Result Diagram: 07/02/18 1849 07/02/18 0601 Results 24 hrs Laboratory Tests Test 07/02/18 18:49 07/03/18 06:45 Hemoglobin 8.8 L Hematocrit 26.9 L Prothrombin Time 17.2 #H Prothrombin Time Ratio 1.3 INR International Normalized Ratio 1.39 Home Meds Reported Medications Albuterol Sulfate* (Ventolin HFA*) 18 Gm Hfa.aer.ad, 2 PUFF INHALATION Q4H, #1 INHALER 05/26/18 Ergocalciferol (Vitamin D2) (VITAMIN D2) 50,000 Unit Capsule, 47449 UNIT PO [id number], CAP 05/23/18 Warfarin Sodium* (Coumadin*) 5 Mg Tablet, 5 MG PO Q TUES,THUR,SAT, TAB 05/23/18 Warfarin Sodium* (Coumadin*) 4 Mg Tablet, 4 MG PO Q MON,WED,FRI,SUN, TAB 05/23/18 Furosemide* (Furosemide*) 20 Mg Tablet, 20 MG PO DAILY, #60 TAB TAKE Q 2 DAYS 05/23/18 Simvastatin* (Zocor*) 20 Mg Tablet, 20 MG PO QHS, #30 TAB 05/23/18 Ranitidine Hcl* (Ranitidine Hcl*) 150 Mg Tablet, 150 MG PO HS, #30 TAB 05/23/18 Acetaminophen (Mapap) 500 Mg Capsule, 500 MG PO BID PRN for PAIN, CAP 05/23/18 Levothyroxine Sodium* (Levothyroxine Sodium*) 50 Mcg Tablet, 50 MCG PO BEFORE BREAKFAST, #30 TAB 05/23/18 Spironolactone* (Aldactone*) 25 Mg Tablet, 25 MG PO DAILY, #30 TAB 05/23/18 Beclomethasone Dipropionate (Qvar Redihaler (40 MCG)) 10.6 Gm Hfa.aeroba, 10.6 GM IH DAILY, INH 05/23/18 Amlodipine Besylate* (Norvasc*) 5 Mg Tablet, 5 MG PO BID, TAB 05/23/18 Losartan-Hydrochlorothiazide (Losartan-HCTZ) 100-25 Mg Tab, 1 TAB PO DAILY, TAB 05/23/18 Medications Current Medications Levothyroxine Sodium (Synthroid) 50 mcg BEFORE BREAKFAST PO Last administered on 07/03/18at 06:20; Admin Dose 50 MCG; Start 05/30/18 at 07:00 Mometasone Furoate (Asmanex) 1 puff DAILY INH Last administered on 07/03/18at 08:34; Admin Dose 1 PUFF; Start 05/29/18 at 11:00 Atorvastatin Calcium (Lipitor) 10 mg DAILY@21 PO Last administered on 07/02/18at 20:15; Admin Dose 10 MG; Start 05/29/18 at 21:00 Latanoprost (Xalatan) 1 drop HS BOTH EYES Last administered on 07/02/18at 20:15; Admin Dose 1 DROP; Start 06/01/18 at 21:00 Amlodipine Besylate (Norvasc) 5 mg DAILY PO ; Start 06/03/18 at 09:00; Status Hold Pantoprazole (Protonix Tab) 40 mg DAILY@06 PO Last administered on 07/03/18at 06:20; Admin Dose 40 MG; Start 06/05/18 at 06:00 Metoclopramide HCl (Reglan) 5 mg TID PRN IV Nausea; Start 06/06/18 at 11:00 Polyethylene Glycol (Miralax) 17 gm BID PRN PO CONSTIPATION; Start 06/06/18 at 14:00 Bisacodyl (Dulcolax Supp) 10 mg DAILY PRN [place] CONSTIPATION; Start 06/06/18 at 14:00 IV Flush (NS 10 ml) 10 ml PRN PRN IV IV PROTOCOL; Start 06/06/18 at 16:00 Nystatin (Nystatin Susp) 5 ml QID PO Last administered on 07/03/18 14:09; Admin Dose 5 ML; Start 06/06/18 at 17:00 Metoprolol Tartrate (Lopressor) 25 mg BID PO Last administered on 07/03/18at 08:34; Admin Dose 25 MG; Start 06/13/18 at 21:00 Metoprolol Tartrate (Lopressor) 5 mg Q4H PRN IV HR>110 Hold SBP<100; Start 06/13/18 at 10:30 Morphine Sulfate (morphine) 6 mg Q2H PRN PO FOR NON CARDIAC PAIN (4-10); Start 06/13/18 at 11:30 Docusate Sodium (Colace) 100 mg DAILY PRN PO CONSTIPATION; Start 06/21/18 at 12:00 Warfarin Sodium (Coumadin) 5 mg DAILY@17 PO Last administered on 07/02/18at 17:50; Admin Dose 5 MG; Start 06/21/18 at 17:00 Miscellaneous Information (Pending [facility] Order For Wound Care) This patient gomes... PRN PRN XX WOUND CARE; Start 06/21/18 at 16:00 Amiodarone HCl (Cordarone) 200 mg BID PO Last administered on 07/03/18 08:33; Admin Dose 200 MG; Start 06/22/18 at 21:00 Miscellaneous Information (*Order Clarification Bulletin) MEDICATION REQUIRES CLARIFICATION:PLE... Q8H XX Last administered on 06/30/18at 12:00; Admin Dose 1 EA; Start 06/26/18 at 12:00 Bumetanide (Bumex) 0.5 mg DAILY@0600 PO Last administered on 07/02/18at 05:51; Admin Dose 0.5 MG; Start 07/02/18 at 06:00; Status Hold Piperacillin Sod/ Tazobactam Sod 100 ml @ 200 mls/hr Q6 IVPB Last administered on 07/03/18at 12:13; Admin Dose 200 MLS/HR; Start 07/03/18 at 00:00 Assessment/Plan Hospital Course (Demo Recall) 62-year-old female underwent coronary angiogram. 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 I did insert the catheter for her and she was anuric. Since then she has improved and has been making urine and the urine was clear however today her urine was bloody. We checked her postvoid residual and she had only 175 mL. Urine was sent for culture and sensitivity. Her last urine culture was no growth after 48 hours. The patient has been having hematuria for the past 2 days and today as she is to drop to have the physical therapy a lot of blood came out. I ordered CT scan of the abdomen and pelvis to see if the hematoma has fistulized into the bladder. She underwent a CT scan and that was reported: 1. Compared to the previous exam of 06/06/2018, the previously seen right lower quadrant pigtail catheter has been removed and the chronic hemoperitoneum or pelvic hematoma has decreased in volume now estimated at 1033 cc compared to all 1260 cc with evolution of the blood products, the attenuation decreasing from 72 HU to 45 HU. Continued surveillance is recommended with follow-up CT as determined clinically. 2. Atrophic uterus without endometrial thickening or other findings to explain the patient's provided history of vaginal bleeding. 3. Post thoracotomy changes with marked cardiomegaly, mitral valve prosthesis, left ventricular apex calcification and increased bibasilar subsegmental atelectasis. 4. Nodular contour to the liver consistent with cirrhosis is again noted. 5. Cholelithiasis without evidence for cholecystitis. 6. Stable mild splenomegaly. 7. Tiny left intrarenal calculus without hydronephrosis. 8. Contracted urinary bladder is difficult to evaluate. 9. Resolved small bowel wall thickening, enteric contrast media within the colon with diverticular disease but no diverticulitis. 10. Resolved anasarca pattern of the subcutaneous tissues I did call the radiologist who read the CT scan and discussed with him the clinical reasons I requested the CT scan and the suspicion that I had for a fistula. He did review the CT while I was talking with him and added an amendment to the report that says: AMENDMENT: 07/01/2018 7:59:21 PM Anjum Magallon D.o A telephone conversation takes place with the patient's urologist, Dr. Godwin, at 19:50 and he kindly provides additional history of sudden onset of hematuria upon standing. Upon further review of the images, there is loss of the normal fat plane between the pelvic hematoma with the anterior dome of the urinary bladder which cannot exclude the possibility of a fistula between the hematoma and a bladder that would explain the patients hematuria. There is preservation of the fat plane between the hematoma and the middle and inferior portion of the anterior urinary bladder. There is no evidence of loss of fat plane between the hematoma and vagina to suggest a fistula in this location. It is discussed that the patient would likely benefit from further evaluation with a CT cystogram performed in the prone position to limit the amount of contrast to opacify the potential fistula. 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 The bleeding in her urine is coming from that hematoma. I did show her son the pictures and explained to him that if the hematoma drains through the bladder we just have to keep the Mensah catheter in and wait for it to drain completely and then the bladder hopefully will heal by itself and if it does not we could always do surgery and close it. At the present the Mensah catheter continues to drain dark blood mixed with urine. The suprapubic hematoma is smaller in size. The urine culture grew: URINE CULTURE Final Organism 1 HAFNIA ALVEI COLONY COUNT >100,000 CFU/ml Organism 2 MIXED GRAM POSITIVE ORGANISMS COLONY COUNT >100,000 CFU/ml HAF DIEGO CORTEZ M.I.C. RX M.I.C. RX --------- --- --------- --- AMPICILLIN R AMPICILLIN/SULBACTAM >=32 R CEFAZOLIN R CEFOTAXIME S CIPROFLOXACIN <=0.25 S GENTAMICIN <=1 S LEVOFLOXACIN <=0.12 S MEROPENEM 0.064 S NITROFURANTOIN <=16 S TOBRAMYCIN <=1 S TRIMETHOPRIM/SULFAMETHOXAZOLE <=20 S The patient is on Zosyn. Continue the antibiotic and keep the Mensah catheter in. I will review the CT scan was Dr. Henao tomorrow and see if inserting any drainage tubing may be helpful. JOAQUIN DE LEON MD Jul 03, 2018 14:20
--- NOTE | 2018-07-03 15:07 | CONS ---
Assessment/Plan Assessment/Plan Hospital Course (Demo Recall) IMP: 1.cad s/p LHC with no sig obstructive cad 2.HTN 3.RP Bleed s/p transfusions now stable and tolerating heparin/coumadin loading. 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 Stable collection by abd CT 06/06 but still with pigtail catheter in place 4.HL 5.MVR-mechanical 6.anemia- s/p repair of R LUNCH TRUCK DRIVER/illiac. Had hemoptysis with subsequent drop in Hgb again and holding of heparin. Had some mild blood tinged sputum 7.Hypothyroid 8. GOMES-negative Head CT 9. Fevers-with positive ua 10. UTI-recurrent by u/a 06/29 11.ARF-? Contrast induced/compression from hematoma- now improving with increased urine output and slowly decreasing bar host 12. Coagulopathy-now therapeutic 14. LE weakness-? compression from hematoma and exacerbated by femoral compression after cath-now resolved 15. arterial insuff- LLE- s/p HUMAN RESOURCES HR REPRESENTATIVE/thrombolysis 06/04 successfully with palpable pulses/B DP/PT and remain that way 16. PAF/AFL-rate controlled 17. 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 18. Epistaxis-improved 19. anemia-stable Recc: -Now on tele -Continue BB with well controlled Hr's -Continue statin -s/p course of abx's -ongoing ID f/u -F/U bar host/K closely with creatnine now normalized and volume status improved. -Follow HGb clsoely which has been stable to improved actually -PT/ambulation -Continue PO bumex now daily and follow volume status closely -will continue amio bid for now in attempt to return patient to SR -Urology following with findings of apparent bladder fistula and thus draining of the hematoma through the bladder causing hematuria. Per urology thus ok to continue couamadin which was thus resumed yesterday after missing 2 doses. Follow hematuria for resolution and assess need for spontaneous closure versus need for repair discussed with urology. -Repeat INR as current repeat reveals INR at baseline after 2 days of holding coumadin? and possible need to resume heparin Consultation Date/Type/Reason Admit Date/Time May 28, 2018 at 17:52 Initial Consult Date 05/28/18 Type of Consult Cardiology Reason for Consultation MVR Requesting Provider: JULY VALENTIN MD Date/Time of Note DATE: 07/03/18 TIME: 14:58 Exam/Review of Systems Vital Signs Vitals Vital Signs Date Temp Pulse Resp B/P (MAP) Pulse Ox O2 O2 Flow FiO2 Time Delivery Rate 07/03/18 66 12:14 07/03/18 97.9 18 105/56 96 Room Air 11:34 (72) Intake and Output 07/02/18 07/02/18 07/03/18 1515:00 23:00 07:00 IntakeIntake Total 50 ml 800 ml 200 ml OutputOutput Total 960 ml 1100 ml BalanceBalance -910 ml -300 ml 200 ml Exam Exam Review of Systems: CONSTITUTIONAL: No fevers, chills. PULMONARY: No sob CARDIOVASCULAR: No chest pain/palpitations GASTROINTESTINAL: No nausea/vomiting. GENITOURINARY: No hematuria/dysuria. MUSCULOSKELETAL: No myagias/arthalgias. PSYCHIATRIC: The patient denies depression. NEUROLOGIC: No weakness Constitutional: alert Psych: no complaints Head: normocephalic ENMT: mucosa pink and moist Neck: supple, jvd (8 cm water) Respiratory: clear to auscultation Cardiovascular: regular rate and rhythm Gastrointestinal: soft, non-tender Musculoskeletal: muscle weakness (mild generalized) Extremities: edema (none) Neurological: other (No focal deficits) Labs Result Diagram: 07/02/18 1849 07/02/18 0601 Results 24hrs Laboratory Tests Test 07/02/18 18:49 07/03/18 06:45 Hemoglobin 8.8 L Hematocrit 26.9 L Prothrombin Time 17.2 #H Prothrombin Time Ratio 1.3 INR International Normalized Ratio 1.39 Medications Medications Current Medications Levothyroxine Sodium (Synthroid) 50 mcg BEFORE BREAKFAST PO Last administered on 07/03/18at 06:20; Admin Dose 50 MCG; Start 05/30/18 at 07:00 Mometasone Furoate (Asmanex) 1 puff DAILY INH Last administered on 07/03/18at 08:34; Admin Dose 1 PUFF; Start 05/29/18 at 11:00 Atorvastatin Calcium (Lipitor) 10 mg DAILY@21 PO Last administered on 07/02/18at 20:15; Admin Dose 10 MG; Start 05/29/18 at 21:00 Latanoprost (Xalatan) 1 drop HS BOTH EYES Last administered on 07/02/18at 20:15; Admin Dose 1 DROP; Start 06/01/18 at 21:00 Amlodipine Besylate (Norvasc) 5 mg DAILY PO ; Start 06/03/18 at 09:00; Status Hold Pantoprazole (Protonix Tab) 40 mg DAILY@06 PO Last administered on 07/03/18at 06:20; Admin Dose 40 MG; Start 06/05/18 at 06:00 Metoclopramide HCl (Reglan) 5 mg TID PRN IV Nausea; Start 06/06/18 at 11:00 Polyethylene Glycol (Miralax) 17 gm BID PRN PO CONSTIPATION; Start 06/06/18 at 14:00 Bisacodyl (Dulcolax Supp) 10 mg DAILY PRN [place] CONSTIPATION; Start 06/06/18 at 14:00 IV Flush (NS 10 ml) 10 ml PRN PRN IV IV PROTOCOL; Start 06/06/18 at 16:00 Nystatin (Nystatin Susp) 5 ml QID PO Last administered on 07/03/18at 14:09; Admin Dose 5 ML; Start 06/06/18 at 17:00 Metoprolol Tartrate (Lopressor) 25 mg BID PO Last administered on 07/03/18at 08:34; Admin Dose 25 MG; Start 06/13/18 at 21:00 Metoprolol Tartrate (Lopressor) 5 mg Q4H PRN IV HR>110 Hold SBP<100; Start 06/13/18 at 10:30 Morphine Sulfate (morphine) 6 mg Q2H PRN PO FOR NON CARDIAC PAIN (4-10); Start 06/13/18 at 11:30 Docusate Sodium (Colace) 100 mg DAILY PRN PO CONSTIPATION; Start 06/21/18 at 12:00 Warfarin Sodium (Coumadin) 5 mg DAILY@17 PO Last administered on 07/02/18at 17:50; Admin Dose 5 MG; Start 06/21/18 at 17:00 Miscellaneous Information (Pending [facility] Order For Wound Care) This patient gomes... PRN PRN XX WOUND CARE; Start 06/21/18 at 16:00 Amiodarone HCl (Cordarone) 200 mg BID PO Last administered on 07/03/18at 08:33; Admin Dose 200 MG; Start 06/22/18 at 21:00 Miscellaneous Information (*Order Clarification Bulletin) MEDICATION REQUIRES CLARIFICATION:PLE... Q8H XX Last administered on 06/30/18at 12:00; Admin Dose 1 EA; Start 06/26/18 at 12:00 Bumetanide (Bumex) 0.5 mg DAILY@0600 PO Last administered on 07/02/18at 05:51; Admin Dose 0.5 MG; Start 07/02/18 at 06:00; Status Hold Piperacillin Sod/ Tazobactam Sod 100 ml @ 200 mls/hr Q6 IVPB Last administered on 07/03/18at 12:13; Admin Dose 200 MLS/HR; Start 07/03/18 at 00:00 CHRIS LAZAR 24, 2019 15:07
--- NOTE | 2018-07-03 15:36 | CONS ---
[facility] HCIS Consult Follow-up Patient Name: Quyen Sexton Unit Number: [id number] Date of : 1955 Patient Status: Admitted Inpatient Attending Doctor: July Valentin MD Edit: SHARI MOLINA M.D. on 07/04/18 @ 02:02 Jesse: I discussed the management with JULIEN Hui and agree with her Assessment/Plan Assessment/Plan Hospital Course (Demo Recall) - Hematuria - CT abd pelvis 07/02/18 showed large extravasation of contrast administered through a F/c into the large anterior pelvic fluid collection is demonstrated, consistent with bladder rupture. no contrast seen within the vagina to suggest fistulization with the overlying urinary bladder. - UTI d/t Hafniae alvei and enterococcus species 06/30/18 - Coagulopathy / warfarin - improving - S/p severe sepsis due to UTI, resolved - S/p SIRS due to acute blood loss, resolved - S/p nasopharyngeal bleed on 06/11/2018, resolved - S/p UTI due to E. coli, resolved. 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, s/p covered stent placement 6 x 100 mm right common femoral artery and right external iliac artery, abdominal aortogram, catheter introduction to the abdominal aorta, JOSÉ MIGUEL guidance into the central artery 06/02/2018 - S/p retroperitoneal bleed - S/p acute anemia requiring PRBC - S/p CT guided placement of drainage catheter into pelvic hematoma 06/05/2018--> removed on 06/09/2018 - S/p FORREST - S/p L heart catheterization on 05/27/2018 showing no significant obstructive CAD - CAD s/p CABG in [facility] in 1982 - H/o MVR with mechanical valve, in 1999 - PAF - Cholelithiasis without e/o acute cholecystitis - Hypertension - Hyperlipidemia - Hypothyroidism - Asthma - S/p FOURNIER, resolved. CT head shows no acute findings - Venous JOSÉ MIGUEL of b/l LE was negative for DVT Recommendations: - Continue Zosyn to cover both Hafnai alvei and enterococcus (07/02/18 - ), will adjust antibiotics according to sensitivity results; s/p ceftriaxone (06/30/2018- 07/02/18) - Await final urine cx (Hafnai alvei and enterococcus species) and stool OB - F/u Echo - Urology following - ARU eval in progress Management discussed with patient, patient's at bedside, and with Dr. Molina. Thank you Consultation Date/Type/Reason Admit Date/Time May 28, 2018 at 17:52 Initial Consult Date 06/03/18 Type of Consult ID Requesting Provider: JULY VALENTIN MD Date/Time of Note DATE: 07/03/18 TIME: 15:33 24 HR Interval Summary Free Text/Dictation Per d/w patient and her , the patient has continued to be afraid to move in bed and is not turning. I re-iterated the risks of skin break down and the need to offload pressure and the risk of decubitus ulcers. The states he has been reminding her and she is not doing it. I encouraged her to reposition and she said "ok." She denies pain and all other ROS. No acute issues were reported by nursing and patient has remained afebrile. Exam/Review of Systems Exam Vitals Vital Signs Date Temp Pulse Resp B/P (MAP) Pulse Ox O2 O2 Flow FiO2 Time Delivery Rate 07/03/18 98.3 88 18 113/54 93 Room Air 15:31 (73) Intake and Output 07/02/18 07/02/18 07/03/18 1515:00 23:00 07:00 IntakeIntake Total 50 ml 800 ml 200 ml OutputOutput Total 960 ml 1100 ml BalanceBalance -910 ml -300 ml 200 ml Allergies Coded Allergies No Known Allergy (Unverified06/09/18) Exam Constitutional: alert, oriented, well developed Psych: no complaints, nl mood/affect Head: normocephalic, atraumatic Eyes: nl conjunctiva, nl lids, nl sclera ENMT: nl external ears & nose, nl nasal mucosa & septum, mucosa pink and moist (no thrush) Neck: supple, non-tender Respiratory: clear to auscultation, normal air movement Cardiovascular: regular rate and rhythm, nl pulses Gastrointestinal: soft, bowel sounds (normoactive), other (mild ttp LLQ, RLQ) Genitourinary - Female: other (f/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 Compared to the previous exam of 06/06/2018, the previously seen right lower quadrant pigtail catheter has been removed and the chronic hemoperitoneum or pelvic hematoma has decreased in volume now estimated at 1033 cc compared to all 1260 cc with evolution of the blood products, the attenuation decreasing from 72 HU to 45 HU. Continued surveillance is recommended with follow-up CT as determined clinically. 2. Atrophic uterus without endometrial thickening or other findings to explain the patient's provided history of vaginal bleeding. 3. Post thoracotomy changes with marked cardiomegaly, mitral valve prosthesis, left ventricular apex calcification and increased bibasilar subsegmental at electasis. 4. Nodular contour to the liver consistent with cirrhosis is again noted. 5. Cholelithiasis without evidence for cholecystitis. 6. Stable mild splenomegaly. 7. Tiny left intrarenal calculus without hydronephrosis. 8. Contracted urinary bladder is difficult to evaluate. 9. Resolved small bowel wall thickening, enteric contrast media within the colon with diverticular disease but no diverticulitis. 10. Resolved anasarca pattern of the subcutaneous tissues. CT abd pelvis 07/02/18 IMPRESSION: Large extravasation of contrast adminstered through a Mensah catheter into the large anterior pelvic fluid collection is demonstrated, consistent with bladder rupture. No contrast is seen within the vagina to suggest fistulization with the overlying urinary bladder. Medications Medication Current Medications Levothyroxine Sodium (Synthroid) 50 mcg BEFORE BREAKFAST PO Last administered on 07/03/18 06:20; Admin Dose 50 MCG; Start 05/30/18 at 07:00 Mometasone Furoate (Asmanex) 1 puff DAILY INH Last administered on 07/03/18 08:34; Admin Dose 1 PUFF; Start 05/29/18 at 11:00 Atorvastatin Calcium (Lipitor) 10 mg DAILY@21 PO Last administered on 07/02/18 20:15; Admin Dose 10 MG; Start 05/29/18 at 21:00 Latanoprost (Xalatan) 1 drop HS BOTH EYES Last administered on 07/02/18 20:15; Admin Dose 1 DROP; Start 06/01/18 at 21:00 Amlodipine Besylate (Norvasc) 5 mg DAILY PO ; Start 06/03/18 at 09:00; Status Hold Pantoprazole (Protonix Tab) 40 mg DAILY@06 PO Last administered on 07/03/18 06:20; Admin Dose 40 MG; Start 06/05/18 at 06:00 Metoclopramide HCl (Reglan) 5 mg TID PRN IV Nausea; Start 06/06/18 at 11:00 Polyethylene Glycol (Miralax) 17 gm BID PRN PO CONSTIPATION; Start 06/06/18 at 14:00 Bisacodyl (Dulcolax Supp) 10 mg DAILY PRN [place] CONSTIPATION; Start 06/06/18 at 14:00 IV Flush (NS 10 ml) 10 ml PRN PRN IV IV PROTOCOL; Start 06/06/18 at 16:00 Nystatin (Nystatin Susp) 5 ml QID PO Last administered on 07/03/18at 14:09; Admin Dose 5 ML; Start 06/06/18 at 17:00 Metoprolol Tartrate (Lopressor) 25 mg BID PO Last administered on 07/03/18 08:34; Admin Dose 25 MG; Start 06/13/18 at 21:00 Metoprolol Tartrate (Lopressor) 5 mg Q4H PRN IV HR>110 Hold SBP<100; Start 06/13/18 at 10:30 Morphine Sulfate (morphine) 6 mg Q2H PRN PO FOR NON CARDIAC PAIN (4-10); Start 06/13/18 at 11:30 Docusate Sodium (Colace) 100 mg DAILY PRN PO CONSTIPATION; Start 06/21/18 at 12:00 Warfarin Sodium (Coumadin) 5 mg DAILY@17 PO Last administered on 07/02/18at 17:50; Admin Dose 5 MG; Start 06/21/18 at 17:00 Miscellaneous Information (Pending [facility] Order For Wound Care) This patient fournier... PRN PRN XX WOUND CARE; Start 06/21/18 at 16:00 Amiodarone HCl (Cordarone) 200 mg BID PO Last administered on 07/03/18 08:33; Admin Dose 200 MG; Start 06/22/18 at 21:00 Miscellaneous Information (*Order Clarification Bulletin) MEDICATION REQUIRES CLARIFICATION:PLE... Q8H XX Last administered on 06/30/18at 12:00; Admin Dose 1 EA; Start 06/26/18 at 12:00 Bumetanide (Bumex) 0.5 mg DAILY@0600 PO Last administered on 07/02/18at 05:51; Admin Dose 0.5 MG; Start 07/02/18 at 06:00; Status Hold Piperacillin Sod/ Tazobactam Sod 100 ml @ 200 mls/hr Q6 IVPB Last administered on 07/03/18at 12:13; Admin Dose 200 MLS/HR; Start 07/03/18 at 00:00 WILIAM HUI NP Jul 03, 2018 15:35
--- NOTE | 2018-07-03 16:08 | RADRPT ---
Echocardiogram Report Patient Name: Gali BALDERRAMA ID: [id number] : 1955 (62y 11m)Study Date: 07/03/2018 8:06:10 AM Gender: FAccession #: [id number] Tech: Olga Sam [facility] Location: [facility] Ref.Physician: CHRIS MORENO Height(Cm): BSA: Weight(Kg): Quality: AdequateAccount #: Procedures: Echocardiographic Report: Transthoracic echocardiogram with complete 2D, M-Mode, and doppler examination. Indications: Cardiomyopathy. Measurements: 2D/M Mode Doppler Measurement Value Normal Range Measurement Value Normal Range LVIDd 2D 4.1 [ 3.8 - 5.2 ] cm FIDEL VTI 1.2 [ 2.0 - 4.0 ] cm2 LVIDs 2D 3.2 [ 2.2 - 3.5 ] cm AV Mean Jermaine 1.9 [ 70.0 - 90.0 ] cm/sec LVPWd 2D 1.0 [ 0.6 - 0.9 ] cm AV Mean PG 18.0 [ 2.0 - 4.0 ] mmHg IVSd 2D 0.9 [ 0.6 - 0.9 ] cm AV VTI 69.8 cm AoR Diam 2D 2.0 [ 2.3 - 3.1 ] cm LVOT Mean Jermaine 1.1 [ 60.0 - 80.0 ] cm/sec EDV 2D 73.8 [ 46.0 - 106.0 ] ml LVOT Mean PG 7.0 [ 1.0 - 3.0 ] mmHg ESV 2D 41.9 [ 14.0 - 42.0 ] ml LVOT Peak Jermaine 1.8 [ 70.0 - 110.0 ] cm/sec EF 2D 43.2 [ 54.0 - 74.0 ] percent LVOT Peak PG 13.0 [ 2.0 - 6.0 ] mmHg LA Dimen 2D 5.2 [ 2.7 - 3.8 ] cm LVOT VTI 35.7 [ 20.0 - 30.0 ] cm LVOT Diam 1.7 [ 2.1 - 2.5 ] cm MV E Peak Jermaine 1.8 [ 60.0 - 130.0 ] cm/sec MV A Peak Jermaine 0.5 [ 100.0 - 120.0 ] cm/se c MV E/A 3.7 [ 0.8 - 1.5 ] ratio MV PHT 53.0 [ 20.0 - 100.0 ] msec MV Peak Jermaine 1.8 [ 60.0 - 130.0 ] cm/sec MV Peak PG 13.0 [ 1.0 - 10.0 ] mmHg MV Mean Jermaine 0.7 cm/sec MV Mean PG 3.0 mmHg MV Decel Time 180 [ 104 - 258 ] msec MV Decel Amelia 10 Lat E` Jermaine 0.1 [ 10.0 - 15.0 ] cm/sec Lateral E/E` 17.2 [ 1.0 - 2.0 ] ratio MV E/A 3.7 [ 0.8 - 1.5 ] ratio MV VTI 40.8 cm MVA PHT 4.2 [ 2.0 - 4.0 ] cm2 MVA VTI 2.0 cm TR Peak Jermaine 2.8 [ 100.0 - 280.0 ] cm/se c TR Peak PG 31.0 mmHg RVSP 31.0 [ 10.0 - 36.0 ] mmHg RA Pressure 3.0 mmHg Findings: Left Ventricle: Mild left ventricular systolic dysfunction. Ejection fraction is visually estimated at 40-45 %. These segments of the LV are hypokinetic anteroseptum base segment and anteroseptum mid segment. Right Ventricle: Normal right ventricular size. Normal right ventricular systolic function. Left Atrium: There is severe enlargement of left atrium. Right Atrium: The right atrium is normal in size. Atrial Septum: Normal atrial septum. Ventricular septum: Normal/intact ventricular septum. Mitral Valve: Normal appearance of the mitral valve. Trace mitral regurgitation. Mitral Valve Bio Prosthesis. Mitral valve Max Velocity 1.77 m/sec. MaxPG 13.00 mmHg. MeanPG 3.00 mmHg. Aortic Valve: Mild to moderate aortic stenosis. Aortic valve Max velocity 3.07 m/sec. Max PG 37.70 mmHg. Mean PG 18.00 mmHg. Aortic valve area 1.33 cm2. Aortic cusps appear mildly calcified. Mild to moderate aortic valve regurgitation. Tricuspid Valve: Normal appearance of the tricuspid valve. Estimated peak PA systolic pressure 34 mmHg. There is moderate tricuspid regurgitation. Pulmonic Valve: Normal pulmonic valve appearance. No evidence of pulmonic regurgitation. Pericardium: Normal pericardium with no significant pericardial effusion. Aorta: Normal aortic root. IVC: Normal size and normal respiratory collapse consistent with normal right atrial pressure. Pulmonary Artery: Normal pulmonary artery size. Conclusions: Mild left ventricular systolic dysfunction. Ejection fraction is visually estimated at 40-45 %. These segments of the LV are hypokinetic anteroseptum base segment and anteroseptum mid segment. There is severe enlargement of left atrium. Normal appearance of the mitral valve. Trace mitral regurgitation. Mitral Valve Bio Prosthesis. Mitral valve Max Velocity 1.77 m/sec. MaxPG 13.00 mmHg. MeanPG 3.00 mmHg. Mild to moderate aortic stenosis. Aortic valve Max velocity 3.07 m/sec. Max PG 37.70 mmHg. Mean PG 18.00 mmHg. Aortic valve area 1.33 cm2. Aortic cusps appear mildly calcified. Mild to moderate aortic valve regurgitation. Normal appearance of the tricuspid valve. Estimated peak PA systolic pressure 34 mmHg. There is moderate tricuspid regurgitation. Electronically Signed By: Chris Moreno 2018-07-03 16:07:03 PDT
[2018-07-03] MEDS ORDERED: HEPARIN 1000 UNITS/ML 10 ML INJ IV PRN (17:00)
[2018-07-03] MEDS ORDERED: HEPARIN 1000 UNITS/ML 10 ML INJ IV ONE (17:00)
[2018-07-03] MEDS: WARFARIN 5 MG TAB PO SCH (17:13)
[2018-07-03] MEDS: HEPARIN 25000 UNITS/250 ML 250 ML IV SCH (17:16)
[2018-07-03] MEDS: LATANOPROST 0.005% 2.5 ML OPH BOTH EYES SCH (20:47)
[2018-07-03] MEDS: ATORVASTATIN 10 MG TAB PO SCH (20:47)
[2018-07-04] VITALS (12 sets, daily range): BP systolic 100–126; BP diastolic 54–58; PULSE 73–102; RESP 18–19
[2018-07-04] MEDS: HEPARIN 25000 UNITS/250 ML 250 ML IV SCH ×3 (01:40→20:01)
[2018-07-04] MEDS: PIPER-TAZO 3.375 GM IV (PMX) 100 ML IVPB SCH ×4 (05:49→23:43)
[2018-07-04] MEDS: PANTOPRAZOLE (EC) 40 MG TAB PO SCH (05:49)
[2018-07-04] MEDS: LEVOTHYROXINE 50 MCG TAB PO SCH (06:05)
[2018-07-04] MEDS: METOPROLOL 25 MG TAB PO SCH ×2 (08:47→21:00)
[2018-07-04] MEDS: NYSTATIN SUSP 5 ML CUP PO SCH ×4 (08:47→21:17)
[2018-07-04] MEDS: MOMETASONE 0.24 GM INHALER INH SCH (08:47)
[2018-07-04] MEDS: AMIODARONE 200 MG TAB PO SCH ×2 (08:48→21:17)
[2018-07-04] MEDS ORDERED: POTASSIUM CHLORIDE (SR) 20 MEQ TAB PO STA (08:54)
--- NOTE | 2018-07-04 09:07 | PN ---
DATE: 07/04/2018 SUBJECTIVE: The patient is stable. Continue to have ongoing hematuria. No other events noted. OBJECTIVE: VITAL SIGNS: Blood pressure is 126/58, pulse 102, temperature 99.5. HEENT: Head is normocephalic. NECK: Supple. HEART: Regular rate. LUNGS: Show diminished breath sounds at the base. ABDOMEN: Soft, nontender to palpation without rebound or guarding. EXTREMITIES: Negative for clubbing, cyanosis, no edema. DERMATOLOGIC: No rashes. MUSCULOSKELETAL: No joint effusion. NEUROLOGIC: No change in exam. MEDICATIONS: Reviewed. LABORATORY DATA: Reviewed. ASSESSMENT AND PLAN: 1. Nonoliguric acute kidney injury with previously normal baseline creatinine. Etiology is secondar y to acute tubular necrosis. Renal function is improved. Continue to monitor. 2. Hematuria. 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 Continue to monitor. Follow up with urology. 3. Volume overload, improved. 4. Hypokalemia, replete with potassium chloride. 5. Anemia. Continue to monitor hemoglobin and hematocrit levels. 6. Mechanical heart valve. Continue anticoagulation per cardiology. 7. Sepsis secondary to urinary tract infection. The patient is completing antibiotic course. 8. Hypothyroidism. Continue Synthroid. 9. Dyslipidemia. Continue statin therapy. 10. Hypertension. Continue current blood pressure regimen. 11. Intraabdominal hematoma. Dictated By: GWYN FABIAN DO NR/NTS Conf#: [id number] DID#: [id number] CC: CHRIS LAZAR MD; JOAQUIN DE LEON MD; JULY VALENTIN MD;*EndCC*
--- NOTE | 2018-07-04 12:22 | CONS ---
Assessment/Plan Assessment/Plan Hospital Course (Demo Recall) IMP: 1.cad s/p LHC with no sig obstructive cad. Mildly depressed LVEF--40-45% ? nonischemic process 2.HTN 3.RP Bleed s/p transfusions now stable and tolerating heparin/coumadin loading. Then had recurrent bled overnight now s/p covered stent to HE[employer] CENTER MANAGER/Ext iliac. Stable collection by abd CT 06/06 but still with pigtail catheter in place 4.HL 5.MVR-mechanical 6.anemia- s/p repair of R HE[facility] CENTER MANAGER/illiac. Had hemoptysis with subsequent drop in Hgb again and holding of heparin. Had some mild blood tinged sputum 7.Hypothyroid 8. GOMES-negative Head CT 9. Fevers-with positive ua 10. UTI-recurrent by u/a 06/29 11.ARF-? Contrast induced/compression from hematoma- now improving with increased urine output and slowly decreasing small engine technician 12. Coagulopathy-now therapeutic 14. LE weakness-? compression from hematoma and exacerbated by femoral compression after cath-now resolved 15. 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 PAF/AFL-rate controlled 17. 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 18. Epistaxis-improved 19. anemia-stable overall with possible mild downtrend today Recc: -Now on tele -Continue BB with well controlled Hr's -Continue statin -s/p course of abx's -ongoing ID f/u -F/U small engine technician/K closely with creatnine now normalized and volume status improved. -Follow HGb clsoely which has been stable to improved actually -PT/ambulation -Follow volume status closely now off of bumex -will continue amio bid for now in attempt to return patient to SR -Urology following with findings of apparent bladder fistula and thus draining of the hematoma through the bladder causing hematuria. Per urology thus ok to continue coumadin and after holing x 2 days now subtherapeutic. Thus placed on heparin and undergoing reloading. Follow hematuria for resolution and assess need for spontaneous closure versus need for repair discussed with urology. Follow INR clsoely Consultation Date/Type/Reason Admit Date/Time May 28, 2018 at 17:52 Initial Consult Date 05/28/18 Type of Consult Cardiology Reason for Consultation MVR Requesting Provider: JULY VALENTIN MD Date/Time of Note DATE: 07/04/18 TIME: 12:18 Exam/Review of Systems Vital Signs Vitals Vital Signs Date Temp Pulse Resp B/P (MAP) Pulse Ox O2 O2 Flow FiO2 Time Delivery Rate 07/04/18 98.9 82 18 107/55 93 11:53 (72) 07/04/18 Room Air 04:32 Intake and Output 07/03/18 07/03/18 07/04/18 1515:00 23:00 07:00 IntakeIntake Total 100 ml 500 ml 740 ml OutputOutput Total 600 ml 550 ml BalanceBalance 100 ml -100 ml 190 ml Exam Exam Review of Systems: CONSTITUTIONAL: No fevers, chills. PULMONARY: No sob CARDIOVASCULAR: No chest pain/palpitations GASTROINTESTINAL: No nausea/vomiting. GENITOURINARY: No hematuria/dysuria. MUSCULOSKELETAL: No myagias/arthalgias. PSYCHIATRIC: The patient denies depression. NEUROLOGIC: No weakness Constitutional: alert, oriented Psych: no complaints Head: normocephalic ENMT: mucosa pink and moist Neck: supple, jvd (9 cm watewr) Respiratory: diminished breath sounds (at bases/B) Cardiovascular: regular rate and rhythm Gastrointestinal: soft, non-tender Musculoskeletal: muscle tone (normal) Extremities: edema (none) Neurological: other (No focakl deficits) Labs Result Diagram: 07/04/18 0558 07/04/18 0601 Results 24hrs Laboratory Tests Test 07/03/18 15:23 07/03/18 17:26 07/03/18 23:33 07/04/18 05:58 Prothrombin Time 16.9 H Prothrombin Time 1.3 Ratio INR International 1.36 Normalized Ratio Activated 30.4 122.3 *H Partial Thromboplast Time White Blood Count 5.5 4.5 L Red Blood Count 2.67 L 2.52 L Hemoglobin 8.3 L 7.9 L Hematocrit 26.1 L 24.8 L Mean Corpuscular 97.8 98.4 Volume Mean Corpuscular 31.1 31.3 Hemoglobin Mean Corpuscular 31.8 L 31.9 L Hemoglobin Concent Red Cell 17.5 H 17.6 H Distribution Width Platelet Count 208 187 Mean Platelet Volume 9.8 9.5 Immature 1.800 H 2.900 H Granulocytes % Neutrophils % 60.2 57.2 Lymphocytes % 28.2 29.6 Monocytes % 6.2 6.6 Eosinophils % 3.1 3.3 Basophils % 0.5 0.4 Nucleated Red Blood 0.0 0.0 Cells % Immature 0.100 H 0.130 H Granulocytes # Neutrophils # 3.3 2.6 Lymphocytes # 1.6 1.3 Monocytes # 0.3 0.3 Eosinophils # 0.2 0.2 Basophils # 0.0 0.0 Nucleated Red Blood 0.0 0.0 Cells # Test 07/04/18 06:01 07/04/18 11:35 Prothrombin Time 19.4 H Prothrombin Time 1.5 Ratio INR International 1.63 Normalized Ratio Activated 67.2 H 45.7 H Partial Thromboplast Time Sodium Level 140 Potassium Level 3.3 L Chloride Level 101 Carbon Dioxide Level 29 Anion Gap 10 Blood Urea Nitrogen 27 H Creatinine 0.90 Est Glomerular > 60 Filtrat Rate mL/min Glucose Level 111 Calcium Level 8.4 Phosphorus Level 4.1 Magnesium Level 1.9 Medications Medications Current Medications Levothyroxine Sodium (Synthroid) 50 mcg BEFORE BREAKFAST PO Last administered on 07/04/18at 06:05; Admin Dose 50 MCG; Start 05/30/18 at 07:00 Mometasone Furoate (Asmanex) 1 puff DAILY INH Last administered on 07/04/18at 08:47; Admin Dose 1 PUFF; Start 05/29/18 at 11:00 Atorvastatin Calcium (Lipitor) 10 mg DAILY@21 PO Last administered on 07/03/18at 20:47; Admin Dose 10 MG; Start 05/29/18 at 21:00 Latanoprost (Xalatan) 1 drop HS BOTH EYES Last administered on 07/03/18at 20:47; Admin Dose 1 DROP; Start 06/01/18 at 21:00 Amlodipine Besylate (Norvasc) 5 mg DAILY PO ; Start 06/03/18 at 09:00; Status Hold Pantoprazole (Protonix Tab) 40 mg DAILY@06 PO Last administered on 07/04/18at 05:49; Admin Dose 40 MG; Start 06/05/18 at 06:00 Metoclopramide HCl (Reglan) 5 mg TID PRN IV Nausea; Start 06/06/18 at 11:00 Polyethylene Glycol (Miralax) 17 gm BID PRN PO CONSTIPATION; Start 06/06/18 at 14:00 Bisacodyl (Dulcolax Supp) 10 mg DAILY PRN [place] CONSTIPATION; Start 06/06/18 at 14:00 IV Flush (NS 10 ml) 10 ml PRN PRN IV IV PROTOCOL; Start 06/06/18 at 16:00 Nystatin (Nystatin Susp) 5 ml QID PO Last administered on 07/04/18at 08:47; Admin Dose 5 ML; Start 06/06/18 at 17:00 Metoprolol Tartrate (Lopressor) 25 mg BID PO Last administered on 07/04/18at 08:47; Admin Dose 25 MG; Start 06/13/18 at 21:00 Metoprolol Tartrate (Lopressor) 5 mg Q4H PRN IV HR>110 Hold SBP<100; Start 06/13/18 at 10:30 Morphine Sulfate (morphine) 6 mg Q2H PRN PO FOR NON CARDIAC PAIN (4-10); Start 06/13/18 at 11:30 Docusate Sodium (Colace) 100 mg DAILY PRN PO CONSTIPATION; Start 06/21/18 at 12:00 Miscellaneous Information (Pending [facility] Order For Wound Care) This patient gomes... PRN PRN XX WOUND CARE; Start 06/21/18 at 16:00 Amiodarone HCl (Cordarone) 200 mg BID PO Last administered on 07/04/18at 08:48; Admin Dose 200 MG; Start 06/22/18 at 21:00 Miscellaneous Information (*Order Clarification Bulletin) MEDICATION REQUIRES CLARIFICATION:PLE... Q8H XX Last administered on 06/30/18at 12:00; Admin Dose 1 EA; Start 06/26/18 at 12:00 Bumetanide (Bumex) 0.5 mg DAILY@0600 PO Last administered on 07/02/18at 05:51; Admin Dose 0.5 MG; Start 07/02/18 at 06:00; Status Hold Piperacillin Sod/ Tazobactam Sod 100 ml @ 200 mls/hr Q6 IVPB Last administered on 07/04/18at 05:49; Admin Dose 200 MLS/HR; Start 07/03/18 at 00:00 Warfarin Sodium (Coumadin) 10 mg DAILY@17 PO Last administered on 07/03/18at 17:13; Admin Dose 10 MG; Start 07/03/18 at 17:00 Heparin Sodium (Porcine) (Heparin (1000 Units/ml)) 3,800 unit PER PROTOCOL PRN IV aPTT<47; Start 07/03/18 at 17:00 Heparin Sodium (Porcine) 250 ml @ 7.5 mls/hr PER PROTOCOL IV Last administered on 07/04/18at 01:40; Admin Dose 5.5 MLS/HR; Start 07/03/18 at 17:00 CHRIS LAZAR Jul 04, 2018 12:22
--- NOTE | 2018-07-04 14:25 | PN ---
Date/Time of Note Date/Time of Note DATE: 07/04/18 TIME: 14:15 Assessment/Plan VTE Prophylaxis Risk score (from Ns)>0 risk: 3 SCD applied (from Ns): Yes Pharmacological prophylaxis: heparin Lines/Catheters IV Catheter Type (from Nrs): PICC Line Central line still needed: Yes Urinary Cath still in place: Yes Reason Cath still needed: urinary retention Assessment/Plan Hospital Course Pt with hematuria, continue to monitor, H&H, Pt denies SOB, denies CP, A-fib at controlled rate. 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 Continue to monitor. Dr. Ashford is following in urology consultation. -UTI, continue abx per ID. Dr. Castellanos is following in infection disease consultation. -S/p Nose/oropharyngeal bleed on 06/11/2018, stopped after heparin was held. -Recent retroperitoneal bleed secondary to vascular injury status post stent placement. Monitor H and H. S/p eval by Dr. Kilpatrick, vascular surgery consultation. -Status post left heart catheterization with no significant obstructive coronary artery disease by Dr. Moreno on 05/27/2018. -Anemia of acute blood loss, status post blood transfusion, continue to monitor hemoglobin and hematocrit. -Urinary incontinence. -Acute illness myopathy -Status post mitral valve replacement with mechanical valve in 1999 in [facility]. Continue Coumadin, monitor PT/INR. -HTN, continue metoprolol -Hyperlipidemia -Hypothyroidism, continue levothyroxine -History of asthma Further recommendations based on clinical course. Plan of care discussed with Dr. Painter. Result Diagram: 07/04/18 0558 07/04/18 0601 Results 24hrs Laboratory Tests Test 07/03/18 15:23 07/03/18 17:26 07/03/18 23:33 07/04/18 05:58 Prothrombin Time 16.9 H Prothrombin Time 1.3 Ratio INR International 1.36 Normalized Ratio Activated 30.4 122.3 *H Partial Thromboplast Time White Blood Count 5.5 4.5 L Red Blood Count 2.67 L 2.52 L Hemoglobin 8.3 L 7.9 L Hematocrit 26.1 L 24.8 L Mean Corpuscular 97.8 98.4 Volume Mean Corpuscular 31.1 31.3 Hemoglobin Mean Corpuscular 31.8 L 31.9 L Hemoglobin Concent Red Cell 17.5 H 17.6 H Distribution Width Platelet Count 208 187 Mean Platelet Volume 9.8 9.5 Immature 1.800 H 2.900 H Granulocytes % Neutrophils % 60.2 57.2 Lymphocytes % 28.2 29.6 Monocytes % 6.2 6.6 Eosinophils % 3.1 3.3 Basophils % 0.5 0.4 Nucleated Red Blood 0.0 0.0 Cells % Immature 0.100 H 0.130 H Granulocytes # Neutrophils # 3.3 2.6 Lymphocytes # 1.6 1.3 Monocytes # 0.3 0.3 Eosinophils # 0.2 0.2 Basophils # 0.0 0.0 Nucleated Red Blood 0.0 0.0 Cells # Test 07/04/18 06:01 07/04/18 11:35 Prothrombin Time 19.4 H Prothrombin Time 1.5 Ratio INR International 1.63 Normalized Ratio Activated 67.2 H 45.7 H Partial Thromboplast Time Sodium Level 140 Potassium Level 3.3 L Chloride Level 101 Carbon Dioxide Level 29 Anion Gap 10 Blood Urea Nitrogen 27 H Creatinine 0.90 Est Glomerular > 60 Filtrat Rate mL/min Glucose Level 111 Calcium Level 8.4 Phosphorus Level 4.1 Magnesium Level 1.9 Exam/Review of Systems Exam Vitals Vital Signs Date Temp Pulse Resp B/P (MAP) Pulse Ox O2 O2 Flow FiO2 Time Delivery Rate 07/04/18 73 12:02 07/04/18 98.9 18 107/55 93 11:53 (72) 07/04/18 Room Air 04:32 Intake and Output 07/03/18 07/03/18 07/04/18 1414:59 22:59 06:59 IntakeIntake Total 100 ml 500 ml 740 ml OutputOutput Total 600 ml 550 ml BalanceBalance 100 ml -100 ml 190 ml Constitutional: alert, oriented Neck: supple Respiratory: clear to auscultation Cardiovascular: irregular rhythm Gastrointestinal: soft, non-tender Genitourinary - Female: other ([place]) Extremities: normal pulses Neurological: nl mental status Skin: nl turgor Results Results 24hrs Laboratory Tests Test 07/03/18 15:23 07/03/18 17:26 07/03/18 23:33 07/04/18 05:58 Prothrombin Time 16.9 H Prothrombin Time 1.3 Ratio INR International 1.36 Normalized Ratio Activated 30.4 122.3 *H Partial Thromboplast Time White Blood Count 5.5 4.5 L Red Blood Count 2.67 L 2.52 L Hemoglobin 8.3 L 7.9 L Hematocrit 26.1 L 24.8 L Mean Corpuscular 97.8 98.4 Volume Mean Corpuscular 31.1 31.3 Hemoglobin Mean Corpuscular 31.8 L 31.9 L Hemoglobin Concent Red Cell 17.5 H 17.6 H Distribution Width Platelet Count 208 187 Mean Platelet Volume 9.8 9.5 Immature 1.800 H 2.900 H Granulocytes % Neutrophils % 60.2 57.2 Lymphocytes % 28.2 29.6 Monocytes % 6.2 6.6 Eosinophils % 3.1 3.3 Basophils % 0.5 0.4 Nucleated Red Blood 0.0 0.0 Cells % Immature 0.100 H 0.130 H Granulocytes # Neutrophils # 3.3 2.6 Lymphocytes # 1.6 1.3 Monocytes # 0.3 0.3 Eosinophils # 0.2 0.2 Basophils # 0.0 0.0 Nucleated Red Blood 0.0 0.0 Cells # Test 07/04/18 06:01 07/04/18 11:35 Prothrombin Time 19.4 H Prothrombin Time 1.5 Ratio INR International 1.63 Normalized Ratio Activated 67.2 H 45.7 H Partial Thromboplast Time Sodium Level 140 Potassium Level 3.3 L Chloride Level 101 Carbon Dioxide Level 29 Anion Gap 10 Blood Urea Nitrogen 27 H Creatinine 0.90 Est Glomerular > 60 Filtrat Rate mL/min Glucose Level 111 Calcium Level 8.4 Phosphorus Level 4.1 Magnesium Level 1.9 Medications Medication Current Medications Levothyroxine Sodium (Synthroid) 50 mcg BEFORE BREAKFAST PO Last administered on 07/04/18at 06:05; Admin Dose 50 MCG; Start 05/30/18 at 07:00 Mometasone Furoate (Asmanex) 1 puff DAILY INH Last administered on 07/04/18at 08:47; Admin Dose 1 PUFF; Start 05/29/18 at 11:00 Atorvastatin Calcium (Lipitor) 10 mg DAILY@21 PO Last administered on 07/03/18at 20:47; Admin Dose 10 MG; Start 05/29/18 at 21:00 Latanoprost (Xalatan) 1 drop HS BOTH EYES Last administered on 07/03/18at 20:47; Admin Dose 1 DROP; Start 06/01/18 at 21:00 Amlodipine Besylate (Norvasc) 5 mg DAILY PO ; Start 06/03/18 at 09:00; Status Hold Pantoprazole (Protonix Tab) 40 mg DAILY@06 PO Last administered on 07/04/18at 05:49; Admin Dose 40 MG; Start 06/05/18 at 06:00 Metoclopramide HCl (Reglan) 5 mg TID PRN IV Nausea; Start 06/06/18 at 11:00 Polyethylene Glycol (Miralax) 17 gm BID PRN PO CONSTIPATION; Start 06/06/18 at 14:00 Bisacodyl (Dulcolax Supp) 10 mg DAILY PRN [place] CONSTIPATION; Start 06/06/18 at 14:00 IV Flush (NS 10 ml) 10 ml PRN PRN IV IV PROTOCOL; Start 06/06/18 at 16:00 Nystatin (Nystatin Susp) 5 ml QID PO Last administered on 07/04/18at 12:38; Admin Dose 5 ML; Start 06/06/18 at 17:00 Metoprolol Tartrate (Lopressor) 25 mg BID PO Last administered on 07/04/18at 08:47; Admin Dose 25 MG; Start 06/13/18 at 21:00 Metoprolol Tartrate (Lopressor) 5 mg Q4H PRN IV HR>110 Hold SBP<100; Start 06/13/18 at 10:30 Morphine Sulfate (morphine) 6 mg Q2H PRN PO FOR NON CARDIAC PAIN (4-10); Start 06/13/18 at 11:30 Docusate Sodium (Colace) 100 mg DAILY PRN PO CONSTIPATION; Start 06/21/18 at 12:00 Miscellaneous Information (Pending Santyl Order For Wound Care) This patient gomes... PRN PRN XX WOUND CARE; Start 06/21/18 at 16:00 Amiodarone HCl (Cordarone) 200 mg BID PO Last administered on 07/04/18at 08:48; Admin Dose 200 MG; Start 06/22/18 at 21:00 Miscellaneous Information (*Order Clarification Bulletin) MEDICATION REQUIRES CLARIFICATION:PLE... Q8H XX Last administered on 06/30/18at 12:00; Admin Dose 1 EA; Start 06/26/18 at 12:00 Bumetanide (Bumex) 0.5 mg DAILY@0600 PO Last administered on 07/02/18 05:51; Admin Dose 0.5 MG; Start 07/02/18 at 06:00; Status Hold Piperacillin Sod/ Tazobactam Sod 100 ml @ 200 mls/hr Q6 IVPB Last administered on 07/04/18 12:39; Admin Dose 200 MLS/HR; Start 07/03/18 at 00:00 Warfarin Sodium (Coumadin) 10 mg DAILY@17 PO Last administered on 07/03/18 17:13; Admin Dose 10 MG; Start 07/03/18 at 17:00 Heparin Sodium (Porcine) (Heparin (1000 Units/ml)) 3,800 unit PER PROTOCOL PRN IV aPTT<47 Last administered on 07/04/18 12:57; Admin Dose 3,800 UNIT; Start 07/03/18 at 17:00 Heparin Sodium (Porcine) 250 ml @ 7.5 mls/hr PER PROTOCOL IV Last administered on 07/04/18 12:59; Admin Dose 8 MLS/HR; Start 07/03/18 at 17:00 KRISTY MCCULLOUGH Jul 04, 2018 14:25
[2018-07-04] MEDS: WARFARIN 5 MG TAB PO SCH (17:27)
--- NOTE | 2018-07-04 19:27 | CONS ---
Assessment/Plan Assessment/Plan Hospital Course (Demo Recall) # sepsis, cardiopulmonary - S/p severe sepsis due to UTI, resolved - S/p SIRS due to acute blood loss, resolved - S/p L heart catheterization on 05/27/2018 showing no significant obstructive CAD - CAD [place] 1982 - H/o MVR with mechanical valve, in 1999 - PAF - Asthma # urology/renal, GI - hematuria caused by ruptured urinary bladder - CT abd pelvis on 07/02/18 showed large extravasation of contrast administered through a F/c into the large anterior pelvic fluid collection is demonstrated, consistent with bladder rupture. no contrast seen within the vagina to suggest fistulization with the overlying urinary bladder. - UTI d/t Hafniae alvei and enterococcus species 06/30/18 - Hypertension - Hyperlipidemia - Hypothyroidism - S/p UTI due to E. coli. 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 Pt previously received ceftriaxone (06/30/2018-07/01/2018) management d/w Pt and her Consultation Date/Type/Reason Admit Date/Time May 28, 2018 at 17:52 Initial Consult Date 06/03/18 Type of Consult ID Requesting Provider: JULY VALENTIN MD Date/Time of Note DATE: 07/04/18 TIME: 19:23 24 HR Interval Summary Constitutional: other (walking with a walker) Detailed Summary Respiratory: No shortness of breath Genitourinary: hematuria, other ("only a little" pain of the lower abdomen) Exam/Review of Systems Exam Vitals Vital Signs Date Temp Pulse Resp B/P (MAP) Pulse Ox O2 O2 Flow FiO2 Time Delivery Rate 07/04/18 86 16:02 07/04/18 98.6 19 107/54 93 15:13 (71) 07/04/18 Room Air 04:32 Intake and Output 07/03/18 07/03/18 07/04/18 1515:00 23:00 07:00 IntakeIntake Total 100 ml 500 ml 740 ml OutputOutput Total 600 ml 550 ml BalanceBalance 100 ml -100 ml 190 ml Constitutional: alert, oriented Psych: no complaints, nl mood/affect Head: normocephalic, atraumatic Eyes: nl conjunctiva, nl lids, nl sclera ENMT: nl external ears & nose, nl nasal mucosa & septum, mucosa pink and moist Neck: supple, non-tender Respiratory: clear to auscultation, normal air movement Cardiovascular: regular rate and rhythm, nl pulses Gastrointestinal: soft, non-tender; No distended, No tender Genitourinary - Female: other (FC with hematuria) Musculoskeletal: No swelling Extremities: No edema Neurological: GARMENT TAG STRINGER II-XII intact, nl mental status, nl speech Skin: ecchymosis (UEs) Results Result Diagram: 07/04/18 1445 07/04/18 0601 Results 24hrs Laboratory Tests Test 07/03/18 23:33 07/04/18 05:58 07/04/18 06:01 07/04/18 11:35 Activated 122.3 *H 67.2 H 45.7 H Partial Thromboplast Time White Blood Count 4.5 L Red Blood Count 2.52 L Hemoglobin 7.9 L Hematocrit 24.8 L Mean Corpuscular 98.4 Volume Mean Corpuscular 31.3 Hemoglobin Mean Corpuscular 31.9 L Hemoglobin Concent Red Cell 17.6 H Distribution Width Platelet Count 187 Mean Platelet Volume 9.5 Immature 2.900 H Granulocytes % Neutrophils % 57.2 Lymphocytes % 29.6 Monocytes % 6.6 Eosinophils % 3.3 Basophils % 0.4 Nucleated Red Blood 0.0 Cells % Immature 0.130 H Granulocytes # Neutrophils # 2.6 Lymphocytes # 1.3 Monocytes # 0.3 Eosinophils # 0.2 Basophils # 0.0 Nucleated Red Blood 0.0 Cells # Prothrombin Time 19.4 H Prothrombin Time 1.5 Ratio INR International 1.63 Normalized Ratio Sodium Level 140 Potassium Level 3.3 L Chloride Level 101 Carbon Dioxide Level 29 Anion Gap 10 Blood Urea Nitrogen 27 H Creatinine 0.90 Est Glomerular > 60 Filtrat Rate mL/min Glucose Level 111 Calcium Level 8.4 Phosphorus Level 4.1 Magnesium Level 1.9 Test 07/04/18 14:45 White Blood Count 4.9 Red Blood Count 2.64 L Hemoglobin 8.1 L Hematocrit 25.9 L Mean Corpuscular 98.1 Volume Mean Corpuscular 30.7 Hemoglobin Mean Corpuscular 31.3 L Hemoglobin Concent Red Cell 17.6 H Distribution Width Platelet Count 199 Mean Platelet Volume 9.8 Immature 1.400 H Granulocytes % Neutrophils % 62.1 Lymphocytes % 25.4 Monocytes % 7.2 Eosinophils % 3.5 Basophils % 0.4 Nucleated Red Blood 0.0 Cells % Immature 0.070 H Granulocytes # Neutrophils # 3.0 Lymphocytes # 1.2 Monocytes # 0.4 Eosinophils # 0.2 Basophils # 0.0 Nucleated Red Blood 0.0 Cells # Medications Medication Current Medications Levothyroxine Sodium (Synthroid) 50 mcg BEFORE BREAKFAST PO Last administered on 07/04/18 06:05; Admin Dose 50 MCG; Start 05/30/18 at 07:00 Mometasone Furoate (Asmanex) 1 puff DAILY INH Last administered on 07/04/18at 08:47; Admin Dose 1 PUFF; Start 05/29/18 at 11:00 Atorvastatin Calcium (Lipitor) 10 mg DAILY@21 PO Last administered on 07/03/18at 20:47; Admin Dose 10 MG; Start 05/29/18 at 21:00 Latanoprost (Xalatan) 1 drop HS BOTH EYES Last administered on 07/03/18at 20:47; Admin Dose 1 DROP; Start 06/01/18 at 21:00 Amlodipine Besylate (Norvasc) 5 mg DAILY PO ; Start 06/03/18 at 09:00; Status Hold Pantoprazole (Protonix Tab) 40 mg DAILY@06 PO Last administered on 07/04/18 05:49; Admin Dose 40 MG; Start 06/05/18 at 06:00 Metoclopramide HCl (Reglan) 5 mg TID PRN IV Nausea; Start 06/06/18 at 11:00 Polyethylene Glycol (Miralax) 17 gm BID PRN PO CONSTIPATION; Start 06/06/18 at 14:00 Bisacodyl (Dulcolax Supp) 10 mg DAILY PRN [place] CONSTIPATION; Start 06/06/18 at 14:00 IV Flush (NS 10 ml) 10 ml PRN PRN IV IV PROTOCOL; Start 06/06/18 at 16:00 Nystatin (Nystatin Susp) 5 ml QID PO Last administered on 07/04/18at 17:26; Admin Dose 5 ML; Start 06/06/18 at 17:00 Metoprolol Tartrate (Lopressor) 25 mg BID PO Last administered on 07/04/18at 08:47; Admin Dose 25 MG; Start 06/13/18 at 21:00 Metoprolol Tartrate (Lopressor) 5 mg Q4H PRN IV HR>110 Hold SBP<100; Start 06/13/18 at 10:30 Morphine Sulfate (morphine) 6 mg Q2H PRN PO FOR NON CARDIAC PAIN (4-10); Start 06/13/18 at 11:30 Docusate Sodium (Colace) 100 mg DAILY PRN PO CONSTIPATION; Start 06/21/18 at 12:00 [facility] This patient gomes... PRN PRN XX WOUND CARE; Start 06/21/18 at 16:00 Amiodarone HCl (Cordarone) 200 mg BID PO Last administered on 07/04/18at 08:48; Admin Dose 200 MG; Start 06/22/18 at 21:00 Miscellaneous Information (*Order Clarification Bulletin) MEDICATION REQUIRES CLARIFICATION:PLE... Q8H XX Last administered on 06/30/18at 12:00; Admin Dose 1 EA; Start 06/26/18 at 12:00 Bumetanide (Bumex) 0.5 mg DAILY@0600 PO Last administered on 07/02/18at 05:51; Admin Dose 0.5 MG; Start 07/02/18 at 06:00; Status Hold Piperacillin Sod/ Tazobactam Sod 100 ml @ 200 mls/hr Q6 IVPB Last administered on 07/04/18 17:27; Admin Dose 200 MLS/HR; Start 07/03/18 at 00:00 Warfarin Sodium (Coumadin) 10 mg DAILY@17 PO Last administered on 07/04/18 17:27; Admin Dose 10 MG; Start 07/03/18 at 17:00 Heparin Sodium (Porcine) (Heparin (1000 Units/ml)) 3,800 unit PER PROTOCOL PRN IV aPTT<47 Last administered on 07/04/18 12:57; Admin Dose 3,800 UNIT; Start 07/03/18 at 17:00 Heparin Sodium (Porcine) 250 ml @ 7.5 mls/hr PER PROTOCOL IV Last administered on 07/04/18 12:59; Admin Dose 8 MLS/HR; Start 07/03/18 at 17:00 SHARI CROWELL M.D. Jul 04, 2018 19:27
--- NOTE | 2018-07-04 20:42 | CONS ---
Consult Date/Type/Reason Admit Date/Time May 28, 2018 at 17:52 Initial Consult Date 06/03/18 Type of Consultation: Urology Reason for Consultation Hematuria and urinary tract infection Requesting Provider: JULY VALENTIN MD Date/Time of Note DATE: 07/04/18 TIME: 20:39 Subjective The patient is feeling much better and she denies any pain. Objective Vitals Vital Signs Date Temp Pulse Resp B/P (MAP) Pulse Ox O2 O2 Flow FiO2 Time Delivery Rate 07/04/18 98.2 97 19 108/58 95 19:53 (75) 07/04/18 Room Air 04:32 Intake and Output 07/03/18 07/03/18 07/04/18 1515:00 23:00 07:00 IntakeIntake Total 100 ml 500 ml 740 ml OutputOutput Total 600 ml 550 ml BalanceBalance 100 ml -100 ml 190 ml Exam The Mensah catheter continues to drain bloody urine, her suprapubic area is much softer at the hematoma seems to be decreasing in size. Results/Medications Result Diagram: 07/04/18 1445 07/04/18 0601 Results 24 hrs Laboratory Tests Test 07/03/18 23:33 07/04/18 05:58 07/04/18 06:01 07/04/18 11:35 Activated 122.3 *H 67.2 H 45.7 H Partial Thromboplast Time White Blood Count 4.5 L Red Blood Count 2.52 L Hemoglobin 7.9 L Hematocrit 24.8 L Mean Corpuscular 98.4 Volume Mean Corpuscular 31.3 Hemoglobin Mean Corpuscular 31.9 L Hemoglobin Concent Red Cell 17.6 H Distribution Width Platelet Count 187 Mean Platelet Volume 9.5 Immature 2.900 H Granulocytes % Neutrophils % 57.2 Lymphocytes % 29.6 Monocytes % 6.6 Eosinophils % 3.3 Basophils % 0.4 Nucleated Red Blood 0.0 Cells % Immature 0.130 H Granulocytes # Neutrophils # 2.6 Lymphocytes # 1.3 Monocytes # 0.3 Eosinophils # 0.2 Basophils # 0.0 Nucleated Red Blood 0.0 Cells # Prothrombin Time 19.4 H Prothrombin Time 1.5 Ratio INR International 1.63 Normalized Ratio Sodium Level 140 Potassium Level 3.3 L Chloride Level 101 Carbon Dioxide Level 29 Anion Gap 10 Blood Urea Nitrogen 27 H Creatinine 0.90 Est Glomerular > 60 Filtrat Rate mL/min Glucose Level 111 Calcium Level 8.4 Phosphorus Level 4.1 Magnesium Level 1.9 Test 07/04/18 14:45 07/04/18 18:44 White Blood Count 4.9 Red Blood Count 2.64 L Hemoglobin 8.1 L Hematocrit 25.9 L Mean Corpuscular 98.1 Volume Mean Corpuscular 30.7 Hemoglobin Mean Corpuscular 31.3 L Hemoglobin Concent Red Cell 17.6 H Distribution Width Platelet Count 199 Mean Platelet Volume 9.8 Immature 1.400 H Granulocytes % Neutrophils % 62.1 Lymphocytes % 25.4 Monocytes % 7.2 Eosinophils % 3.5 Basophils % 0.4 Nucleated Red Blood 0.0 Cells % Immature 0.070 H Granulocytes # Neutrophils # 3.0 Lymphocytes # 1.2 Monocytes # 0.4 Eosinophils # 0.2 Basophils # 0.0 Nucleated Red Blood 0.0 Cells # Activated 75.6 *H Partial Thromboplast Time Home Meds Reported Medications Albuterol Sulfate* (Ventolin HFA*) 18 Gm Hfa.aer.ad, 2 PUFF INHALATION Q4H, #1 INHALER 05/26/18 Ergocalciferol (Vitamin D2) (VITAMIN D2) 50,000 Unit Capsule, 40261 UNIT PO [id number], CAP 05/23/18 Warfarin Sodium* (Coumadin*) 5 Mg Tablet, 5 MG PO Q TUES,THUR,SAT, TAB 05/23/18 Warfarin Sodium* (Coumadin*) 4 Mg Tablet, 4 MG PO Q MON,WED,FRI,SUN, TAB 05/23/18 Furosemide* (Furosemide*) 20 Mg Tablet, 20 MG PO DAILY, #60 TAB TAKE Q 2 DAYS 05/23/18 Simvastatin* (Zocor*) 20 Mg Tablet, 20 MG PO QHS, #30 TAB 05/23/18 Ranitidine Hcl* (Ranitidine Hcl*) 150 Mg Tablet, 150 MG PO HS, #30 TAB 05/23/18 Acetaminophen (Mapap) 500 Mg Capsule, 500 MG PO BID PRN for PAIN, CAP 05/23/18 Levothyroxine Sodium* (Levothyroxine Sodium*) 50 Mcg Tablet, 50 MCG PO BEFORE BREAKFAST, #30 TAB 05/23/18 Spironolactone* (Aldactone*) 25 Mg Tablet, 25 MG PO DAILY, #30 TAB 05/23/18 Beclomethasone Dipropionate (Qvar Redihaler (40 MCG)) 10.6 Gm Hfa.aeroba, 10.6 GM IH DAILY, INH 05/23/18 Amlodipine Besylate* (Norvasc*) 5 Mg Tablet, 5 MG PO BID, TAB 05/23/18 Losartan-Hydrochlorothiazide (Losartan-HCTZ) 100-25 Mg Tab, 1 TAB PO DAILY, TAB 05/23/18 Medications Current Medications Levothyroxine Sodium (Synthroid) 50 mcg BEFORE BREAKFAST PO Last administered on 07/04/18at 06:05; Admin Dose 50 MCG; Start 05/30/18 at 07:00 Mometasone Furoate (Asmanex) 1 puff DAILY INH Last administered on 07/04/18at 08:47; Admin Dose 1 PUFF; Start 05/29/18 at 11:00 Atorvastatin Calcium (Lipitor) 10 mg DAILY@21 PO Last administered on 07/03/18at 20:47; Admin Dose 10 MG; Start 05/29/18 at 21:00 Latanoprost (Xalatan) 1 drop HS BOTH EYES Last administered on 07/03/18at 20:47; Admin Dose 1 DROP; Start 06/01/18 at 21:00 Amlodipine Besylate (Norvasc) 5 mg DAILY PO ; Start 06/03/18 at 09:00; Status Hold Pantoprazole (Protonix Tab) 40 mg DAILY@06 PO Last administered on 07/04/18at 05:49; Admin Dose 40 MG; Start 06/05/18 at 06:00 Metoclopramide HCl (Reglan) 5 mg TID PRN IV Nausea; Start 06/06/18 at 11:00 Polyethylene Glycol (Miralax) 17 gm BID PRN PO CONSTIPATION; Start 06/06/18 at 14:00 Bisacodyl (Dulcolax Supp) 10 mg DAILY PRN [place] CONSTIPATION; Start 06/06/18 at 14:00 IV Flush (NS 10 ml) 10 ml PRN PRN IV IV PROTOCOL; Start 06/06/18 at 16:00 Nystatin (Nystatin Susp) 5 ml QID PO Last administered on 07/04/18at 17:26; Admin Dose 5 ML; Start 06/06/18 at 17:00 Metoprolol Tartrate (Lopressor) 25 mg BID PO Last administered on 07/04/18 08:47; Admin Dose 25 MG; Start 06/13/18 at 21:00 Metoprolol Tartrate (Lopressor) 5 mg Q4H PRN IV HR>110 Hold SBP<100; Start 06/13/18 at 10:30 Morphine Sulfate (morphine) 6 mg Q2H PRN PO FOR NON CARDIAC PAIN (4-10); Start 06/13/18 at 11:30 Docusate Sodium (Colace) 100 mg DAILY PRN PO CONSTIPATION; Start 06/21/18 at 12:00 [facility] This patient gomes... PRN PRN XX WOUND CARE; Start 06/21/18 at 16:00 Amiodarone HCl (Cordarone) 200 mg BID PO Last administered on 07/04/18 08:48; Admin Dose 200 MG; Start 06/22/18 at 21:00 Miscellaneous Information (*Order Clarification Bulletin) MEDICATION REQUIRES CLARIFICATION:PLE... Q8H XX Last administered on 06/30/18 12:00; Admin Dose 1 EA; Start 06/26/18 at 12:00 Bumetanide (Bumex) 0.5 mg DAILY@0600 PO Last administered on 07/02/18 05:51; Admin Dose 0.5 MG; Start 07/02/18 at 06:00; Status Hold Piperacillin Sod/ Tazobactam Sod 100 ml @ 200 mls/hr Q6 IVPB Last administered on 07/04/18 17:27; Admin Dose 200 MLS/HR; Start 07/03/18 at 00:00; Stop 07/05/18 at 23:59 Warfarin Sodium (Coumadin) 10 mg DAILY@17 PO Last administered on 07/04/18 17:27; Admin Dose 10 MG; Start 07/03/18 at 17:00 Heparin Sodium (Porcine) (Heparin (1000 Units/ml)) 3,800 unit PER PROTOCOL PRN IV aPTT<47 Last administered on 07/04/18 12:57; Admin Dose 3,800 UNIT; Start 07/03/18 at 17:00 Heparin Sodium (Porcine) 250 ml @ 7.5 mls/hr PER PROTOCOL IV Last administered on 3/25/19at 20:01; Admin Dose 7.5 MLS/HR; Start 07/03/18 at 17:00 Assessment/Plan Hospital Course (Demo Recall) 62-year-old female underwent coronary angiogram. 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 I did insert the catheter for her and she was anuric. Since then she has improved and has been making urine and the urine was clear however today her urine was bloody. We checked her postvoid residual and she had only 175 mL. Urine was sent for culture and sensitivity. Her last urine culture was no growth after 48 hours. The patient has been having hematuria for the past 2 days and today as she is to drop to have the physical therapy a lot of blood came out. I ordered CT scan of the abdomen and pelvis to see if the hematoma has fistulized into the bladder. She underwent a CT scan and that was reported: 1. Compared to the previous exam of 06/06/2018, the previously seen right lower quadrant pigtail catheter has been removed and the chronic hemoperitoneum or pelvic hematoma has decreased in volume now estimated at 1033 cc compared to all 1260 cc with evolution of the blood products, the attenuation decreasing from 72 HU to 45 HU. Continued surveillance is recommended with follow-up CT as determined clinically. 2. Atrophic uterus without endometrial thickening or other findings to explain the patient's provided history of vaginal bleeding. 3. Post thoracotomy changes with marked cardiomegaly, mitral valve prosthesis, left ventricular apex calcification and increased bibasilar subsegmental atelectasis. 4. Nodular contour to the liver consistent with cirrhosis is again noted. 5. Cholelithiasis without evidence for cholecystitis. 6. Stable mild splenomegaly. 7. Tiny left intrarenal calculus without hydronephrosis. 8. Contracted urinary bladder is difficult to evaluate. 9. Resolved small bowel wall thickening, enteric contrast media within the colon with diverticular disease but no diverticulitis. 10. Resolved anasarca pattern of the subcutaneous tissues I did call the radiologist who read the CT scan and discussed with him the clinical reasons I requested the CT scan and the suspicion that I had for a fistula. He did review the CT while I was talking with him and added an amendment to the report that says: AMENDMENT: 07/01/2018 7:59:21 PM Anjum Magallon D.o A telephone conversation takes place with the patient's urologist, Dr. Godwin, at 19:50 and he kindly provides additional history of sudden onset of hematuria upon standing. Upon further review of the images, there is loss of the normal fat plane between the pelvic hematoma with the anterior dome of the urinary bladder which cannot exclude the possibility of a fistula between the hematoma and a bladder that would explain the patients hematuria. There is preservation of the fat plane between the hematoma and the middle and inferior portion of the anterior urinary bladder. There is no evidence of loss of fat plane between the hematoma and vagina to suggest a fistula in this location. It is discussed that the patient would likely benefit from further evaluation with a CT cystogram performed in the prone position to limit the amount of contrast to opacify the potential fistula. 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 The bleeding in her urine is coming from that hematoma. I did show her son the pictures and explained to him that if the hematoma drains through the bladder we just have to keep the Mensah catheter in and wait for it to drain completely and then the bladder hopefully will heal by itself and if it does not we could always do surgery and close it. At the present the Mensah catheter continues to drain dark blood mixed with urine. The suprapubic hematoma is smaller in size. The urine culture grew: URINE CULTURE Final Organism 1 SHANTANUFNIA ALVEI COLONY COUNT >100,000 CFU/ml Organism 2 MIXED GRAM POSITIVE ORGANISMS COLONY COUNT >100,000 CFU/ml HAF ALVEI LARRY LOPEZI M.I.C. RX M.I.C. RX --------- --- --------- --- AMPICILLIN R AMPICILLIN/SULBACTAM >=32 R CEFAZOLIN R CEFOTAXIME S CIPROFLOXACIN <=0.25 S GENTAMICIN <=1 S LEVOFLOXACIN <=0.12 S MEROPENEM 0.064 S NITROFURANTOIN <=16 S TOBRAMYCIN <=1 S TRIMETHOPRIM/SULFAMETHOXAZOLE <=20 S The patient is on Zosyn. The suprapubic hematoma is getting smaller and the bladder urine is blood-tinged from the hematoma that is draining into it. For now continue the same: Keep the Mensah catheter in place, continue the antibiotics JOAQUIN DE LEON MD Jul 04, 2018 20:42
[2018-07-04] MEDS: ATORVASTATIN 10 MG TAB PO SCH (21:16)
[2018-07-04] MEDS: LATANOPROST 0.005% 2.5 ML OPH BOTH EYES SCH (21:18)
[2018-07-05] VITALS (11 sets, daily range): BP systolic 106–123; BP diastolic 53–62; PULSE 76–100; RESP 18–19
[2018-07-05] MEDS: LEVOTHYROXINE 50 MCG TAB PO SCH (05:38)
[2018-07-05] MEDS: PIPER-TAZO 3.375 GM IV (PMX) 100 ML IVPB SCH ×3 (05:38→17:01)
[2018-07-05] MEDS: PANTOPRAZOLE (EC) 40 MG TAB PO SCH (05:39)
[2018-07-05] MEDS: HEPARIN 25000 UNITS/250 ML 250 ML IV SCH ×2 (05:49→10:19)
[2018-07-05] MEDS: NYSTATIN SUSP 5 ML CUP PO SCH ×4 (08:18→20:57)
[2018-07-05] MEDS: MOMETASONE 0.24 GM INHALER INH SCH (08:19)
[2018-07-05] MEDS: METOPROLOL 25 MG TAB PO SCH ×2 (08:19→20:57)
[2018-07-05] MEDS: AMIODARONE 200 MG TAB PO SCH ×2 (08:20→20:58)
--- NOTE | 2018-07-05 09:00 | CONS ---
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 Requesting Provider: JULY VALENTIN MD Date/Time of Note DATE: 07/05/18 TIME: 08:59 Subjective Patient is feeling better and appears to be comfortable. Objective Vitals Vital Signs Date Temp Pulse Resp B/P (MAP) Pulse Ox O2 O2 Flow FiO2 Time Delivery Rate 07/05/18 91 08:01 07/05/18 97.9 18 123/56 95 07:32 (78) 07/04/18 Room Air 04:32 Intake and Output 07/04/18 07/04/18 07/05/18 1515:00 23:00 07:00 IntakeIntake Total 800 ml 1000 ml OutputOutput Total 800 ml 500 ml BalanceBalance 0 ml 500 ml Exam The urine remains bloody and that is from the pelvic hematoma that is draining into the bladder Results/Medications Result Diagram: 07/05/18 0541 07/05/18 0541 Results 24 hrs Laboratory Tests Test 07/04/18 11:35 07/04/18 14:45 07/04/18 18:44 07/05/18 05:41 Activated 45.7 H 75.6 *H 149.7 *H Partial Thromboplast Time White Blood Count 4.9 4.8 Red Blood Count 2.64 L 2.46 L Hemoglobin 8.1 L 7.6 L Hematocrit 25.9 L 24.4 L Mean Corpuscular 98.1 99.2 Volume Mean Corpuscular 30.7 30.9 Hemoglobin Mean Corpuscular 31.3 L 31.1 L Hemoglobin Concent Red Cell 17.6 H 18.1 H Distribution Width Platelet Count 199 170 Mean Platelet Volume 9.8 9.7 Immature 1.400 H 2.500 H Granulocytes % Neutrophils % 62.1 57.9 Lymphocytes % 25.4 30.0 Monocytes % 7.2 6.7 Eosinophils % 3.5 2.5 Basophils % 0.4 0.4 Nucleated Red Blood 0.0 0.0 Cells % Immature 0.070 H 0.120 H Granulocytes # Neutrophils # 3.0 2.8 Lymphocytes # 1.2 1.4 Monocytes # 0.4 0.3 Eosinophils # 0.2 0.1 Basophils # 0.0 0.0 Nucleated Red Blood 0.0 0.0 Cells # Prothrombin Time 29.4 #H Prothrombin Time 2.3 Ratio INR International 2.78 Normalized Ratio Sodium Level 140 Potassium Level 4.0 Chloride Level 103 Carbon Dioxide Level 29 Anion Gap 8 Blood Urea Nitrogen 21 H Creatinine 0.75 Est Glomerular > 60 Filtrat Rate mL/min Glucose Level 104 Calcium Level 8.5 Phosphorus Level 3.5 Magnesium Level 1.9 Test 07/05/18 07:26 Activated 159.3 *H Partial Thromboplast Time Home Meds Reported Medications Albuterol Sulfate* (Ventolin HFA*) 18 Gm Hfa.aer.ad, 2 PUFF INHALATION Q4H, #1 INHALER 05/26/18 Ergocalciferol (Vitamin D2) (VITAMIN D2) 50,000 Unit Capsule, 29781 UNIT PO [id number], CAP 05/23/18 Warfarin Sodium* (Coumadin*) 5 Mg Tablet, 5 MG PO Q TU,THUR,SAT, TAB 05/23/18 Warfarin Sodium* (Coumadin*) 4 Mg Tablet, 4 MG PO Q MON,WED,FRI,SUN, TAB 05/23/18 Furosemide* (Furosemide*) 20 Mg Tablet, 20 MG PO DAILY, #60 TAB TAKE Q 2 DAYS 05/23/18 Simvastatin* (Zocor*) 20 Mg Tablet, 20 MG PO QHS, #30 TAB 05/23/18 Ranitidine Hcl* (Ranitidine Hcl*) 150 Mg Tablet, 150 MG PO HS, #30 TAB 05/23/18 Acetaminophen (Mapap) 500 Mg Capsule, 500 MG PO BID PRN for PAIN, CAP 05/23/18 Levothyroxine Sodium* (Levothyroxine Sodium*) 50 Mcg Tablet, 50 MCG PO BEFORE BREAKFAST, #30 TAB 05/23/18 Spironolactone* (Aldactone*) 25 Mg Tablet, 25 MG PO DAILY, #30 TAB 05/23/18 Beclomethasone Dipropionate (Qvar Redihaler (40 MCG)) 10.6 Gm Hfa.aeroba, 10.6 GM IH DAILY, INH 05/23/18 Amlodipine Besylate* (Norvasc*) 5 Mg Tablet, 5 MG PO BID, TAB 05/23/18 Losartan-Hydrochlorothiazide (Losartan-HCTZ) 100-25 Mg Tab, 1 TAB PO DAILY, TAB 05/23/18 Medications Current Medications Levothyroxine Sodium (Synthroid) 50 mcg BEFORE BREAKFAST PO Last administered on 07/05/18at 05:38; Admin Dose 50 MCG; Start 05/30/18 at 07:00 Mometasone Furoate (Asmanex) 1 puff DAILY INH Last administered on 07/05/18at 08:19; Admin Dose 1 PUFF; Start 05/29/18 at 11:00 Atorvastatin Calcium (Lipitor) 10 mg DAILY@21 PO Last administered on 07/04/18at 21:16; Admin Dose 10 MG; Start 05/29/18 at 21:00 Latanoprost (Xalatan) 1 drop HS BOTH EYES Last administered on 07/04/18at 21:18; Admin Dose 1 DROP; Start 06/01/18 at 21:00 Amlodipine Besylate (Norvasc) 5 mg DAILY PO ; Start 06/03/18 at 09:00; Status Hold Pantoprazole (Protonix Tab) 40 mg DAILY@06 PO Last administered on 07/05/18at 05:39; Admin Dose 40 MG; Start 06/05/18 at 06:00 Metoclopramide HCl (Reglan) 5 mg TID PRN IV Nausea; Start 06/06/18 at 11:00 Polyethylene Glycol (Miralax) 17 gm BID PRN PO CONSTIPATION; Start 06/06/18 at 14:00 Bisacodyl (Dulcolax Supp) 10 mg DAILY PRN [place] CONSTIPATION; Start 06/06/18 at 14:00 IV Flush (NS 10 ml) 10 ml PRN PRN IV IV PROTOCOL; Start 06/06/18 at 16:00 Nystatin (Nystatin Susp) 5 ml QID PO Last administered on 07/05/18at 08:18; Admin Dose 5 ML; Start 06/06/18 at 17:00 Metoprolol Tartrate (Lopressor) 25 mg BID PO Last administered on 07/05/18at 08:19; Admin Dose 25 MG; Start 06/13/18 at 21:00 Metoprolol Tartrate (Lopressor) 5 mg Q4H PRN IV HR>110 Hold SBP<100; Start 06/13/18 at 10:30 Morphine Sulfate (morphine) 6 mg Q2H PRN PO FOR NON CARDIAC PAIN (4-10); Start 06/13/18 at 11:30 Docusate Sodium (Colace) 100 mg DAILY PRN PO CONSTIPATION; Start 06/21/18 at 12:00 Miscellaneous Information (Pending [facility] Order For Wound Care) This patient gomes... PRN PRN XX WOUND CARE; Start 06/21/18 at 16:00 Amiodarone HCl (Cordarone) 200 mg BID PO Last administered on 07/05/18at 08:20; Admin Dose 200 MG; Start 06/22/18 at 21:00 Miscellaneous Information (*Order Clarification Bulletin) MEDICATION REQUIRES CLARIFICATION:PLE... Q8H XX Last administered on 06/30/18at 12:00; Admin Dose 1 EA; Start 06/26/18 at 12:00 Bumetanide (Bumex) 0.5 mg DAILY@0600 PO Last administered on 07/02/18at 05:51; Admin Dose 0.5 MG; Start 07/02/18 at 06:00; Status Hold Piperacillin Sod/ Tazobactam Sod 100 ml @ 200 mls/hr Q6 IVPB Last administered on 07/05/18at 05:38; Admin Dose 200 MLS/HR; Start 07/03/18 at 00:00; Stop 07/05/18 at 23:59 Warfarin Sodium (Coumadin) 10 mg DAILY@17 PO Last administered on 07/04/18at 17:27; Admin Dose 10 MG; Start 07/03/18 at 17:00 Heparin Sodium (Porcine) (Heparin (1000 Units/ml)) 3,800 unit PER PROTOCOL PRN IV aPTT<47 Last administered on 07/04/18at 12:57; Admin Dose 3,800 UNIT; Start 07/03/18 at 17:00 Heparin Sodium (Porcine) 250 ml @ 7.5 mls/hr PER PROTOCOL IV Last administered on 07/05/18at 05:49; Admin Dose 7.5 MLS/HR; Start 07/03/18 at 17:00 Assessment/Plan Hospital Course (Demo Recall) 62-year-old female underwent coronary angiogram. 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 I did insert the catheter for her and she was anuric. Since then she has improved and has been making urine and the urine was clear however today her urine was bloody. We checked her postvoid residual and she had only 175 mL. Urine was sent for culture and sensitivity. Her last urine culture was no growth after 48 hours. The patient has been having hematuria for the past 2 days and today as she is to drop to have the physical therapy a lot of blood came out. I ordered CT scan of the abdomen and pelvis to see if the hematoma has fistulized into the bladder. She underwent a CT scan and that was reported: 1. Compared to the previous exam of 06/06/2018, the previously seen right lower quadrant pigtail catheter has been removed and the chronic hemoperitoneum or pelvic hematoma has decreased in volume now estimated at 1033 cc compared to all 1260 cc with evolution of the blood products, the attenuation decreasing from 72 HU to 45 HU. Continued surveillance is recommended with follow-up CT as determined clinically. 2. Atrophic uterus without endometrial thickening or other findings to explain the patient's provided history of vaginal bleeding. 3. Post thoracotomy changes with marked cardiomegaly, mitral valve prosthesis, left ventricular apex calcification and increased bibasilar subsegmental atelectasis. 4. Nodular contour to the liver consistent with cirrhosis is again noted. 5. Cholelithiasis without evidence for cholecystitis. 6. Stable mild splenomegaly. 7. Tiny left intrarenal calculus without hydronephrosis. 8. Contracted urinary bladder is difficult to evaluate. 9. Resolved small bowel wall thickening, enteric contrast media within the colon with diverticular disease but no diverticulitis. 10. Resolved anasarca pattern of the subcutaneous tissues I did call the radiologist who read the CT scan and discussed with him the clinical reasons I requested the CT scan and the suspicion that I had for a fistula. He did review the CT while I was talking with him and added an amendment to the report that says: AMENDMENT: 07/01/2018 7:59:21 PM Anjum Magallon D.o A telephone conversation takes place with the patient's urologist, Dr. Godwin, at 19:50 and he kindly provides additional history of sudden onset of hematuria upon standing. Upon further review of the images, there is loss of the normal fat plane between the pelvic hematoma with the anterior dome of the urinary bladder which cannot exclude the possibility of a fistula between the hematoma and a bladder that would explain the patients hematuria. There is preservation of the fat plane between the hematoma and the middle and inferior portion of the anterior urinary bladder. There is no evidence of loss of fat plane between the hematoma and vagina to suggest a fistula in this location. It is discussed that the patient would likely benefit from further evaluation with a CT cystogram performed in the prone position to limit the amount of contrast to opacify the potential fistula. 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 The bleeding in her urine is coming from that hematoma. I did show her son the pictures and explained to him that if the hematoma drains through the bladder we just have to keep the Mensah catheter in and wait for it to drain completely and then the bladder hopefully will heal by itself and if it does not we could always do surgery and close it. At the present the Mensah catheter continues to drain dark blood mixed with urine. The suprapubic hematoma is smaller in size. The urine culture grew: URINE CULTURE Final Organism 1 HAFNIA ALVEI COLONY COUNT >100,000 CFU/ml Organism 2 MIXED GRAM POSITIVE ORGANISMS COLONY COUNT >100,000 CFU/ml HAF ALVEI SHANTANUF ALVEI M.I.C. RX M.I.C. RX --------- --- --------- --- AMPICILLIN R AMPICILLIN/SULBACTAM >=32 R CEFAZOLIN R CEFOTAXIME S CIPROFLOXACIN <=0.25 S GENTAMICIN <=1 S LEVOFLOXACIN <=0.12 S MEROPENEM 0.064 S NITROFURANTOIN <=16 S TOBRAMYCIN <=1 S TRIMETHOPRIM/SULFAMETHOXAZOLE <=20 S The patient is on Zosyn. Patient is comfortable and her pain is very minimal. The abdomen is softer. The suprapubic hematoma is getting smaller and the bladder urine is blood-tinged from the hematoma that is draining into it. For now continue the same: Keep the Mensah catheter in place, continue the antibiotics JOAQUIN DE LEON MD Jul 05, 2018 09:00
[2018-07-05] MEDS ORDERED: WARFARIN 5 MG TAB PO SCH ×2 (12:49→17:00)
--- NOTE | 2018-07-05 14:40 | CONS ---
Consult Date/Type/Reason Admit Date/Time May 28, 2018 at 17:52 Initial Consult Date Type of Consultation: Urology Requesting Provider: JULY VALENTIN MD Date/Time of Note DATE: 07/05/18 TIME: 14:38 Subjective Pt with significant hematuria - BP in good range =- blood TX 1u pRBC now. ROS: No fever, no chills, no nausea, no vomiting, no diarrhea/constipation No recent weight changes No chest pain, no PND, no orthopnea - + hematuria No dizziness, blurred vision No thirst, no heat or cold intolerance Objective Vitals Vital Signs Date Temp Pulse Resp B/P (MAP) Pulse Ox O2 O2 Flow FiO2 Time Delivery Rate 07/05/18 76 12:01 07/05/18 97.4 18 106/53 98 11:37 (70) 07/04/18 Room Air 04:32 Intake and Output 07/04/18 07/04/18 07/05/18 1515:00 23:00 07:00 IntakeIntake Total 800 ml 1000 ml OutputOutput Total 800 ml 500 ml BalanceBalance 0 ml 500 ml Exam General: WN/WD/NAD, AOx 3 HEENT: Unicetric/atraumatic/EOMI (follow commands) NECK: JVD elevated, no thyromegaly Lymph: no lymphadenopathy HEART: regular with no S3, II/ systolic murmur at apex, mech click LUNGS: Coarse sounds ABD: soft, NT, ND, +BS : Mensah, hematuria Neuro: non focal SKIN: chronic changes EXT: trace edema Results/Medications Result Diagram: 07/05/18 0541 07/05/18 0541 Results 24 hrs Laboratory Tests Test 07/04/18 14:45 07/04/18 18:44 07/05/18 05:41 07/05/18 07:26 White Blood Count 4.9 4.8 Red Blood Count 2.64 L 2.46 L Hemoglobin 8.1 L 7.6 L Hematocrit 25.9 L 24.4 L Mean Corpuscular 98.1 99.2 Volume Mean Corpuscular 30.7 30.9 Hemoglobin Mean Corpuscular 31.3 L 31.1 L Hemoglobin Concent Red Cell 17.6 H 18.1 H Distribution Width Platelet Count 199 170 Mean Platelet Volume 9.8 9.7 Immature 1.400 H 2.500 H Granulocytes % Neutrophils % 62.1 57.9 Lymphocytes % 25.4 30.0 Monocytes % 7.2 6.7 Eosinophils % 3.5 2.5 Basophils % 0.4 0.4 Nucleated Red Blood 0.0 0.0 Cells % Immature 0.070 H 0.120 H Granulocytes # Neutrophils # 3.0 2.8 Lymphocytes # 1.2 1.4 Monocytes # 0.4 0.3 Eosinophils # 0.2 0.1 Basophils # 0.0 0.0 Nucleated Red Blood 0.0 0.0 Cells # Activated 75.6 *H 149.7 *H 159.3 *H Partial Thromboplast Time Prothrombin Time 29.4 #H Prothrombin Time 2.3 Ratio INR International 2.78 Normalized Ratio Sodium Level 140 Potassium Level 4.0 Chloride Level 103 Carbon Dioxide Level 29 Anion Gap 8 Blood Urea Nitrogen 21 H Creatinine 0.75 Est Glomerular > 60 Filtrat Rate mL/min Glucose Level 104 Calcium Level 8.5 Phosphorus Level 3.5 Magnesium Level 1.9 Home Meds Reported Medications Albuterol Sulfate* (Ventolin HFA*) 18 Gm Hfa.aer.ad, 2 PUFF INHALATION Q4H, #1 INHALER 05/26/18 Ergocalciferol (Vitamin D2) (VITAMIN D2) 50,000 Unit Capsule, 06164 UNIT PO D2QOCPP, CAP 05/23/18 Warfarin Sodium* (Coumadin*) 5 Mg Tablet, 5 MG PO Q TUES,THUR,SAT, TAB 05/23/18 Warfarin Sodium* (Coumadin*) 4 Mg Tablet, 4 MG PO Q MON,WED,FRI,SUN, TAB 05/23/18 Furosemide* (Furosemide*) 20 Mg Tablet, 20 MG PO DAILY, #60 TAB TAKE Q 2 DAYS 05/23/18 Simvastatin* (Zocor*) 20 Mg Tablet, 20 MG PO QHS, #30 TAB 05/23/18 Ranitidine Hcl* (Ranitidine Hcl*) 150 Mg Tablet, 150 MG PO HS, #30 TAB 05/23/18 Acetaminophen (Mapap) 500 Mg Capsule, 500 MG PO BID PRN for PAIN, CAP 05/23/18 Levothyroxine Sodium* (Levothyroxine Sodium*) 50 Mcg Tablet, 50 MCG PO BEFORE BREAKFAST, #30 TAB 05/23/18 Spironolactone* (Aldactone*) 25 Mg Tablet, 25 MG PO DAILY, #30 TAB 05/23/18 Beclomethasone Dipropionate (Qvar Redihaler (40 MCG)) 10.6 Gm Hfa.aeroba, 10.6 GM IH DAILY, INH 05/23/18 Amlodipine Besylate* (Norvasc*) 5 Mg Tablet, 5 MG PO BID, TAB 05/23/18 Losartan-Hydrochlorothiazide (Losartan-HCTZ) 100-25 Mg Tab, 1 TAB PO DAILY, TAB 05/23/18 Medications Current Medications Levothyroxine Sodium (Synthroid) 50 mcg BEFORE BREAKFAST PO Last administered on 07/05/18at 05:38; Admin Dose 50 MCG; Start 05/30/18 at 07:00 Mometasone Furoate (Asmanex) 1 puff DAILY INH Last administered on 07/05/18at 08:19; Admin Dose 1 PUFF; Start 05/29/18 at 11:00 Atorvastatin Calcium (Lipitor) 10 mg DAILY@21 PO Last administered on 07/04/18at 21:16; Admin Dose 10 MG; Start 05/29/18 at 21:00 Latanoprost (Xalatan) 1 drop HS BOTH EYES Last administered on 07/04/18at 21:18; Admin Dose 1 DROP; Start 06/01/18 at 21:00 Amlodipine Besylate (Norvasc) 5 mg DAILY PO ; Start 06/03/18 at 09:00; Status Hold Pantoprazole (Protonix Tab) 40 mg DAILY@06 PO Last administered on 07/05/18at 05:39; Admin Dose 40 MG; Start 06/05/18 at 06:00 Metoclopramide HCl (Reglan) 5 mg TID PRN IV Nausea; Start 06/06/18 at 11:00 Polyethylene Glycol (Miralax) 17 gm BID PRN PO CONSTIPATION; Start 06/06/18 at 14:00 Bisacodyl (Dulcolax Supp) 10 mg DAILY PRN [place] CONSTIPATION; Start 06/06/18 at 14:00 IV Flush (NS 10 ml) 10 ml PRN PRN IV IV PROTOCOL; Start 06/06/18 at 16:00 Nystatin (Nystatin Susp) 5 ml QID PO Last administered on 07/05/18at 12:20; Admin Dose 5 ML; Start 06/06/18 at 17:00 Metoprolol Tartrate (Lopressor) 25 mg BID PO Last administered on 07/05/18at 08:19; Admin Dose 25 MG; Start 06/13/18 at 21:00 Metoprolol Tartrate (Lopressor) 5 mg Q4H PRN IV HR>110 Hold SBP<100; Start 06/13/18 at 10:30 Morphine Sulfate (morphine) 6 mg Q2H PRN PO FOR NON CARDIAC PAIN (4-10); Start 06/13/18 at 11:30 Docusate Sodium (Colace) 100 mg DAILY PRN PO CONSTIPATION; Start 06/21/18 at 12:00 Miscellaneous Information (Pending [facility] Order For Wound Care) This patient fournier... PRN PRN XX WOUND CARE; Start 06/21/18 at 16:00 Amiodarone HCl (Cordarone) 200 mg BID PO Last administered on 07/05/18at 08:20; Admin Dose 200 MG; Start 06/22/18 at 21:00 Miscellaneous Information (*Order Clarification Bulletin) MEDICATION REQUIRES CLARIFICATION:PLE... Q8H XX Last administered on 06/30/18at 12:00; Admin Dose 1 EA; Start 06/26/18 at 12:00 Bumetanide (Bumex) 0.5 mg DAILY@0600 PO Last administered on 07/02/18at 05:51; Admin Dose 0.5 MG; Start 07/02/18 at 06:00; Status Hold Piperacillin Sod/ Tazobactam Sod 100 ml @ 200 mls/hr Q6 IVPB Last administered on 07/05/18at 12:20; Admin Dose 200 MLS/HR; Start 07/03/18 at 00:00; Stop 07/05/18 at 23:59 Warfarin Sodium (Coumadin) 5 mg DAILY@17 PO ; Start 07/05/18 at 17:00 Assessment/Plan Hospital Course (Demo Recall) 1.cad s/p C with no sig obstructive cad - on med rx now - treated - no CP now - stable - on meds 2.HTN - treated - well Rx - well controlled - controlled 3.RP Bleed s/p transfusions now stable - heaturia - possible fistual - urology follows, blood Rx now. 4.HL 5.MVR-mechanical - stable by exam - soft click by exam - stable Stable by exam.Soft click. Stable by exam. 6.anemia- s/p repair of R [employer]/illiac. Now stabilizing 7.Hypothyroid 8. FOURNIER-negative Head CT 9. Fevers-with positive ua - now resolved. CECILIA MOCTEZUMA MD Jul 05, 2018 14:40
--- NOTE | 2018-07-05 16:11 | CONS ---
Assessment/Plan Assessment/Plan Hospital Course (Demo Recall) # sepsis, cardiopulmonary - s/p severe sepsis due to UTI, resolved - s/p SIRS due to acute blood loss, resolved - s/p L heart catheterization on 05/27/2018 showing no significant obstructive CAD - CAD - s/p CABG in [place] in 1982 - H/o MVR with mechanical valve, in 1999 - Hypertension - PAF - Asthma # urology/renal, GI - hematuria caused by ruptured urinary bladder - CT abd pelvis on 07/02/18 showed large extravasation of contrast administered through a F/c into the large anterior pelvic fluid collection is demonstrated, consistent with bladder rupture. no contrast seen within the vagina to suggest fistulization with the overlying urinary bladder. - UTI d/t Hafniae alvei and enterococcus species 06/30/18 - S/p UTI due to E. coli. 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 Pt previously received ceftriaxone (06/30/2018-07/01/2018) management d/w Pt, her and RN Consultation Date/Type/Reason Admit Date/Time May 28, 2018 at 17:52 Initial Consult Date 06/03/18 Type of Consult ID Requesting Provider: JULY VALENTNI MD Date/Time of Note DATE: 07/05/18 TIME: 16:07 24 HR Interval Summary Constitutional: no complaints Detailed Summary Eyes: no complaints Respiratory: no complaints Cardiovascular: no complaints Gastrointestinal: no complaints Genitourinary: hematuria, other ("only a little" pain of the bladder) Musculoskeletal: no complaints Skin: no complaints Exam/Review of Systems Exam Vitals Vital Signs Date Temp Pulse Resp B/P (MAP) Pulse Ox O2 O2 Flow FiO2 Time Delivery Rate 07/05/18 97.9 88 18 116/57 92 15:20 (76) 07/04/18 Room Air 04:32 Intake and Output 07/04/18 07/04/18 07/05/18 1515:00 23:00 07:00 IntakeIntake Total 800 ml 1000 ml OutputOutput Total 800 ml 500 ml BalanceBalance 0 ml 500 ml Constitutional: alert, non-verbal Psych: no complaints, confusion Head: normocephalic, atraumatic Eyes: nl conjunctiva, nl lids ENMT: nl external ears & nose, nl nasal mucosa & septum, mucosa pink and moist Neck: other (not swollen) Respiratory: other (normal resp effort) Cardiovascular: edema Gastrointestinal: soft, tender (very mildly TTP in the supra-pubic area), other (+hematuria in FC); No distended Musculoskeletal: nl extremities to inspection Extremities: edema Neurological: EXECUTIVE ASST II-XII intact, nl mental status, nl speech Skin: nl turgor; No rash or lesions Results Result Diagram: 07/05/18 1503 07/05/18 0541 Results 24hrs Laboratory Tests Test 07/04/18 18:44 07/05/18 05:41 07/05/18 07:26 07/05/18 15:03 Activated 75.6 *H 149.7 *H 159.3 *H Partial Thromboplast Time White Blood Count 4.8 Red Blood Count 2.46 L Hemoglobin 7.6 L 9.0 L Hematocrit 24.4 L 27.9 L Mean Corpuscular 99.2 Volume Mean Corpuscular 30.9 Hemoglobin Mean Corpuscular 31.1 L Hemoglobin Concent Red Cell 18.1 H Distribution Width Platelet Count 170 Mean Platelet Volume 9.7 Immature 2.500 H Granulocytes % Neutrophils % 57.9 Lymphocytes % 30.0 Monocytes % 6.7 Eosinophils % 2.5 Basophils % 0.4 Nucleated Red Blood 0.0 Cells % Immature 0.120 H Granulocytes # Neutrophils # 2.8 Lymphocytes # 1.4 Monocytes # 0.3 Eosinophils # 0.1 Basophils # 0.0 Nucleated Red Blood 0.0 Cells # Prothrombin Time 29.4 #H Prothrombin Time 2.3 Ratio INR International 2.78 Normalized Ratio Sodium Level 140 Potassium Level 4.0 Chloride Level 103 Carbon Dioxide Level 29 Anion Gap 8 Blood Urea Nitrogen 21 H Creatinine 0.75 Est Glomerular > 60 Filtrat Rate mL/min Glucose Level 104 Calcium Level 8.5 Phosphorus Level 3.5 Magnesium Level 1.9 Medications Medication Current Medications Levothyroxine Sodium (Synthroid) 50 mcg BEFORE BREAKFAST PO Last administered on 07/05/18 05:38; Admin Dose 50 MCG; Start 05/30/18 at 07:00 Mometasone Furoate (Asmanex) 1 puff DAILY INH Last administered on 07/05/18 08:19; Admin Dose 1 PUFF; Start 05/29/18 at 11:00 Atorvastatin Calcium (Lipitor) 10 mg DAILY@21 PO Last administered on 07/04/18 21:16; Admin Dose 10 MG; Start 05/29/18 at 21:00 Latanoprost (Xalatan) 1 drop HS BOTH EYES Last administered on 07/04/18at 21:18; Admin Dose 1 DROP; Start 06/01/18 at 21:00 Amlodipine Besylate (Norvasc) 5 mg DAILY PO ; Start 06/03/18 at 09:00; Status Hold Pantoprazole (Protonix Tab) 40 mg DAILY@06 PO Last administered on 07/05/18at 05:39; Admin Dose 40 MG; Start 06/05/18 at 06:00 Metoclopramide HCl (Reglan) 5 mg TID PRN IV Nausea; Start 06/06/18 at 11:00 Polyethylene Glycol (Miralax) 17 gm BID PRN PO CONSTIPATION; Start 06/06/18 at 14:00 Bisacodyl (Dulcolax Supp) 10 mg DAILY PRN [place] CONSTIPATION; Start 06/06/18 at 14:00 IV Flush (NS 10 ml) 10 ml PRN PRN IV IV PROTOCOL; Start 06/06/18 at 16:00 Nystatin (Nystatin Susp) 5 ml QID PO Last administered on 07/05/18at 12:20; Admin Dose 5 ML; Start 06/06/18 at 17:00 Metoprolol Tartrate (Lopressor) 25 mg BID PO Last administered on 07/05/18at 08:19; Admin Dose 25 MG; Start 06/13/18 at 21:00 Metoprolol Tartrate (Lopressor) 5 mg Q4H PRN IV HR>110 Hold SBP<100; Start 06/13/18 at 10:30 Morphine Sulfate (morphine) 6 mg Q2H PRN PO FOR NON CARDIAC PAIN (4-10); Start 06/13/18 at 11:30 Docusate Sodium (Colace) 100 mg DAILY PRN PO CONSTIPATION; Start 06/21/18 at 12:00 Miscellaneous Information (Pending [facility] Order For Wound Care) This patient gomes... PRN PRN XX WOUND CARE; Start 06/21/18 at 16:00 Amiodarone HCl (Cordarone) 200 mg BID PO Last administered on 07/05/18at 08:20; Admin Dose 200 MG; Start 06/22/18 at 21:00 Miscellaneous Information (*Order Clarification Bulletin) MEDICATION REQUIRES CLARIFICATION:PLE... Q8H XX Last administered on 06/30/18at 12:00; Admin Dose 1 EA; Start 06/26/18 at 12:00 Bumetanide (Bumex) 0.5 mg DAILY@0600 PO Last administered on 07/02/18at 05:51; Admin Dose 0.5 MG; Start 07/02/18 at 06:00; Status Hold Piperacillin Sod/ Tazobactam Sod 100 ml @ 200 mls/hr Q6 IVPB Last administered on 07/05/18at 12:20; Admin Dose 200 MLS/HR; Start 07/03/18 at 00:00; Stop 07/05/18 at 23:59 Warfarin Sodium (Coumadin) 5 mg DAILY@17 PO ; Start 07/05/18 at 17:00 SHARI CROWELL M.D. Jul 05, 2018 16:11
--- NOTE | 2018-07-05 18:25 | PN ---
Date/Time of Note Date/Time of Note DATE: 07/05/18 TIME: 18:25 Assessment/Plan VTE Prophylaxis Risk score (from Ns)>0 risk: 4 SCD applied (from Ns): Yes Pharmacological prophylaxis: warfarin tx Lines/Catheters IV Catheter Type (from Nrs): PICC Line Central line still needed: Yes Urinary Cath still in place: Yes Reason Cath still needed: urinary retention, other (indicate) Assessment/Plan Hospital Course Patient is s/p blood transfusion. Pt denies pain, [place] with good UA, hematuria. 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 Continue to monitor. Dr. Ashford is following in urology consultation. -UTI, continue abx per ID. Dr. Castellanos is following in infection disease consultation. -S/p Nose/oropharyngeal bleed on 06/11/2018, stopped after heparin was held. -Retroperitoneal bleed secondary to vascular injury status post stent placement. Monitor H and H. S/p eval by Dr. Kilpatrick, vascular surgery consultation. -Status post left heart catheterization with no significant obstructive coronary artery disease by Dr. Moreno on 05/27/2018. -Anemia of acute blood loss, status post blood transfusion, continue to monitor hemoglobin and hematocrit. -Urinary incontinence. -Acute illness myopathy -Status post mitral valve replacement with mechanical valve in 1999 in [facility]. Continue Coumadin, monitor PT/INR. -HTN, continue metoprolol -Hyperlipidemia -Hypothyroidism, continue levothyroxine -History of asthma Further recommendations based on clinical course. Plan of care discussed with Dr. Painter. Result Diagram: 07/05/18 1503 07/05/18 0541 Results 24hrs Laboratory Tests Test 07/04/18 18:44 07/05/18 05:41 07/05/18 07:26 07/05/18 15:03 Activated 75.6 *H 149.7 *H 159.3 *H Partial Thromboplast Time White Blood Count 4.8 Red Blood Count 2.46 L Hemoglobin 7.6 L 9.0 L Hematocrit 24.4 L 27.9 L Mean Corpuscular 99.2 Volume Mean Corpuscular 30.9 Hemoglobin Mean Corpuscular 31.1 L Hemoglobin Concent Red Cell 18.1 H Distribution Width Platelet Count 170 Mean Platelet Volume 9.7 Immature 2.500 H Granulocytes % Neutrophils % 57.9 Lymphocytes % 30.0 Monocytes % 6.7 Eosinophils % 2.5 Basophils % 0.4 Nucleated Red Blood 0.0 Cells % Immature 0.120 H Granulocytes # Neutrophils # 2.8 Lymphocytes # 1.4 Monocytes # 0.3 Eosinophils # 0.1 Basophils # 0.0 Nucleated Red Blood 0.0 Cells # Prothrombin Time 29.4 #H Prothrombin Time 2.3 Ratio INR International 2.78 Normalized Ratio Sodium Level 140 Potassium Level 4.0 Chloride Level 103 Carbon Dioxide Level 29 Anion Gap 8 Blood Urea Nitrogen 21 H Creatinine 0.75 Est Glomerular > 60 Filtrat Rate mL/min Glucose Level 104 Calcium Level 8.5 Phosphorus Level 3.5 Magnesium Level 1.9 Exam/Review of Systems Exam Vitals Vital Signs Date Temp Pulse Resp B/P (MAP) Pulse Ox O2 O2 Flow FiO2 Time Delivery Rate 07/05/18 94 16:01 07/05/18 97.9 18 116/57 92 15:20 (76) 07/04/18 Room Air 04:32 Intake and Output 07/04/18 07/04/18 07/05/18 1515:00 23:00 07:00 IntakeIntake Total 800 ml 1000 ml OutputOutput Total 800 ml 500 ml BalanceBalance 0 ml 500 ml Constitutional: alert, oriented Respiratory: clear to auscultation Cardiovascular: irregular rhythm Gastrointestinal: soft, non-tender Genitourinary - Female: other ([place] ) Extremities: normal pulses Skin: nl turgor Results Results 24hrs Laboratory Tests Test 07/04/18 18:44 07/05/18 05:41 07/05/18 07:26 07/05/18 15:03 Activated 75.6 *H 149.7 *H 159.3 *H Partial Thromboplast Time White Blood Count 4.8 Red Blood Count 2.46 L Hemoglobin 7.6 L 9.0 L Hematocrit 24.4 L 27.9 L Mean Corpuscular 99.2 Volume Mean Corpuscular 30.9 Hemoglobin Mean Corpuscular 31.1 L Hemoglobin Concent Red Cell 18.1 H Distribution Width Platelet Count 170 Mean Platelet Volume 9.7 Immature 2.500 H Granulocytes % Neutrophils % 57.9 Lymphocytes % 30.0 Monocytes % 6.7 Eosinophils % 2.5 Basophils % 0.4 Nucleated Red Blood 0.0 Cells % Immature 0.120 H Granulocytes # Neutrophils # 2.8 Lymphocytes # 1.4 Monocytes # 0.3 Eosinophils # 0.1 Basophils # 0.0 Nucleated Red Blood 0.0 Cells # Prothrombin Time 29.4 #H Prothrombin Time 2.3 Ratio INR International 2.78 Normalized Ratio Sodium Level 140 Potassium Level 4.0 Chloride Level 103 Carbon Dioxide Level 29 Anion Gap 8 Blood Urea Nitrogen 21 H Creatinine 0.75 Est Glomerular > 60 Filtrat Rate mL/min Glucose Level 104 Calcium Level 8.5 Phosphorus Level 3.5 Magnesium Level 1.9 Medications Medication Current Medications Levothyroxine Sodium (Synthroid) 50 mcg BEFORE BREAKFAST PO Last administered on 07/05/18 05:38; Admin Dose 50 MCG; Start 05/30/18 at 07:00 Mometasone Furoate (Asmanex) 1 puff DAILY INH Last administered on 07/05/18 08:19; Admin Dose 1 PUFF; Start 05/29/18 at 11:00 Atorvastatin Calcium (Lipitor) 10 mg DAILY@21 PO Last administered on 07/04/18at 21:16; Admin Dose 10 MG; Start 05/29/18 at 21:00 Latanoprost (Xalatan) 1 drop HS BOTH EYES Last administered on 07/04/18 21:18; Admin Dose 1 DROP; Start 06/01/18 at 21:00 Amlodipine Besylate (Norvasc) 5 mg DAILY PO ; Start 06/03/18 at 09:00; Status Hold Pantoprazole (Protonix Tab) 40 mg DAILY@06 PO Last administered on 07/05/18at 05:39; Admin Dose 40 MG; Start 06/05/18 at 06:00 Metoclopramide HCl (Reglan) 5 mg TID PRN IV Nausea; Start 06/06/18 at 11:00 Polyethylene Glycol (Miralax) 17 gm BID PRN PO CONSTIPATION; Start 06/06/18 at 14:00 Bisacodyl (Dulcolax Supp) 10 mg DAILY PRN [place] CONSTIPATION; Start 06/06/18 at 14:00 IV Flush (NS 10 ml) 10 ml PRN PRN IV IV PROTOCOL; Start 06/06/18 at 16:00 Nystatin (Nystatin Susp) 5 ml QID PO Last administered on 07/05/18at 16:58; Admin Dose 5 ML; Start 06/06/18 at 17:00 Metoprolol Tartrate (Lopressor) 25 mg BID PO Last administered on 07/05/18 08:19; Admin Dose 25 MG; Start 06/13/18 at 21:00 Metoprolol Tartrate (Lopressor) 5 mg Q4H PRN IV HR>110 Hold SBP<100; Start 06/13/18 at 10:30 Morphine Sulfate (morphine) 6 mg Q2H PRN PO FOR NON CARDIAC PAIN (4-10); Start 06/13/18 at 11:30 Docusate Sodium (Colace) 100 mg DAILY PRN PO CONSTIPATION; Start 06/21/18 at 12:00 Miscellaneous Information ([facility]) This patient gomes... PRN PRN XX WOUND CARE; Start 06/21/18 at 16:00 Amiodarone HCl (Cordarone) 200 mg BID PO Last administered on 07/05/18 08:20; Admin Dose 200 MG; Start 06/22/18 at 21:00 Miscellaneous Information (*Order Clarification Bulletin) MEDICATION REQUIRES CLARIFICATION:PLE... Q8H XX Last administered on 06/30/18 12:00; Admin Dose 1 EA; Start 06/26/18 at 12:00 Bumetanide (Bumex) 0.5 mg DAILY@0600 PO Last administered on 07/02/18at 05:51; Admin Dose 0.5 MG; Start 07/02/18 at 06:00; Status Hold Piperacillin Sod/ Tazobactam Sod 100 ml @ 200 mls/hr Q6 IVPB Last administered on 07/05/18 17:01; Admin Dose 200 MLS/HR; Start 07/03/18 at 00:00; Stop 07/05/18 at 23:59 Warfarin Sodium (Coumadin) 5 mg DAILY@17 PO Last administered on 07/05/18 16:58; Admin Dose 5 MG; Start 07/05/18 at 17:00 KRISTY MCCULLOUGH Jul 05, 2018 18:25
[2018-07-05] MEDS: ATORVASTATIN 10 MG TAB PO SCH (20:57)
[2018-07-05] MEDS: LATANOPROST 0.005% 2.5 ML OPH BOTH EYES SCH (21:01)
[2018-07-06] VITALS (13 sets, daily range): BP systolic 122–139; BP diastolic 54–71; PULSE 62–84; RESP 18
[2018-07-06] MEDS: PANTOPRAZOLE (EC) 40 MG TAB PO SCH (06:07)
[2018-07-06] MEDS: LEVOTHYROXINE 50 MCG TAB PO SCH (06:07)
--- NOTE | 2018-07-06 06:50 | PN ---
DATE: 07/05/2018 SUBJECTIVE: The patient continues to have ongoing hematuria. No other events noted. OBJECTIVE: VITAL SIGNS: Blood pressure is 123/56, pulse 97, respirations 18, temperature 97.9. HEENT: Head is normocephalic. NECK: Supple. HEART: Regular rate. LUNGS: Show diminished breath sounds at the base. ABDOMEN: Soft, nontender to palpation without rebound or guarding. EXTREMITIES: Negative for clubbing, cyanosis. Trace edema. DERMATOLOGIC: No rashes. MUSCULOSKELETAL: No joint effusion. NEUROLOGIC: No change in exam. MEDICATIONS: Reviewed. LABORATORY DATA: Reviewed. ASSESSMENT AND PLAN: 1. Nonoliguric acute kidney injury with previously normal baseline creatinine. Etiology of acute ki dney injury is secondary to acute tubular necrosis. Renal function is improved. Continue current tr eatment plans, supportive care, renally dose all medicines. 2. Hematuria. 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 Continue to monitor. Follow up with urology. 3. Volume overload, improved. 4. Hypokalemia. Continue to monitor and replete as needed. 5. Anemia. Monitor hemoglobin and hematocrit levels. 6. Mechanical heart valve. Continue anticoagulation per cardiology. 7. Sepsis secondary to urinary tract infection. The patient is completing antibiotic course. 8. Hypothyroidism. Continue Synthroid. 9. Dyslipidemia. Continue statin therapy. 10. Hypertension. 11. History of intra-abdominal hematoma. Dictated By: GWYN HEALY/SAVANNAH Conf#: [id number] DID#: [id number]
[2018-07-06] MEDS: METOPROLOL 25 MG TAB PO SCH ×2 (08:29→19:58)
[2018-07-06] MEDS: NYSTATIN SUSP 5 ML CUP PO SCH ×4 (08:29→19:57)
[2018-07-06] MEDS: AMIODARONE 200 MG TAB PO SCH ×2 (08:29→19:57)
[2018-07-06] MEDS: MOMETASONE 0.24 GM INHALER INH SCH (08:30)
--- NOTE | 2018-07-06 08:36 | CONS ---
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 Objective Vitals Vital Signs Date Temp Pulse Resp B/P (MAP) Pulse Ox O2 O2 Flow FiO2 Time Delivery Rate 07/06/18 98.3 79 18 139/62 96 07:12 (87) 07/06/18 Room Air 03:38 Intake and Output 07/05/18 07/05/18 07/06/18 1515:00 23:00 07:00 IntakeIntake Total 137.5 ml 1250 ml 250 ml OutputOutput Total 400 ml 650 ml BalanceBalance 137.5 ml 850 ml -400 ml Exam The suprapubic mass still present but is smaller and not painful. The urine remains bloody. Results/Medications Result Diagram: 07/06/18 0523 07/05/18 0541 Results 24 hrs Laboratory Tests Test 07/05/18 15:03 07/06/18 05:23 07/06/18 08:24 Hemoglobin 9.0 L 9.0 L Hematocrit 27.9 L 28.8 L White Blood Count 4.8 Red Blood Count 2.87 L Mean Corpuscular Volume 100.3 Mean Corpuscular Hemoglobin 31.4 Mean Corpuscular 31.3 L Hemoglobin Concent Red Cell Distribution Width 18.7 H Platelet Count 169 Mean Platelet Volume 9.8 Immature Granulocytes % 2.500 H Neutrophils % 60.8 Lymphocytes % 27.3 Monocytes % 6.5 Eosinophils % 2.3 Basophils % 0.6 Nucleated Red Blood Cells % 0.0 Immature Granulocytes # 0.120 H Neutrophils # 2.9 Lymphocytes # 1.3 Monocytes # 0.3 Eosinophils # 0.1 Basophils # 0.0 Nucleated Red Blood Cells # 0.0 Prothrombin Time 36.3 #H Prothrombin Time Ratio 2.8 INR International 3.65 Normalized Ratio Lab Scanned Report BLOOD TRANSFUSION Home Meds Reported Medications Albuterol Sulfate* (Ventolin HFA*) 18 Gm Hfa.aer.ad, 2 PUFF INHALATION Q4H, #1 I NHALER 05/26/18 Ergocalciferol (Vitamin D2) (VITAMIN D2) 50,000 Unit Capsule, 67242 UNIT PO [id number], CAP 05/23/18 Warfarin Sodium* (Coumadin*) 5 Mg Tablet, 5 MG PO Q TUES,THUR,SAT, TAB 05/23/18 Warfarin Sodium* (Coumadin*) 4 Mg Tablet, 4 MG PO Q MON,WED,FRI,SUN, TAB 05/23/18 Furosemide* (Furosemide*) 20 Mg Tablet, 20 MG PO DAILY, #60 TAB TAKE Q 2 DAYS 05/23/18 Simvastatin* (Zocor*) 20 Mg Tablet, 20 MG PO QHS, #30 TAB 05/23/18 Ranitidine Hcl* (Ranitidine Hcl*) 150 Mg Tablet, 150 MG PO HS, #30 TAB 05/23/18 Acetaminophen (Mapap) 500 Mg Capsule, 500 MG PO BID PRN for PAIN, CAP 05/23/18 Levothyroxine Sodium* (Levothyroxine Sodium*) 50 Mcg Tablet, 50 MCG PO BEFORE BREAKFAST, #30 TAB 05/23/18 Spironolactone* (Aldactone*) 25 Mg Tablet, 25 MG PO DAILY, #30 TAB 05/23/18 Beclomethasone Dipropionate (Qvar Redihaler (40 MCG)) 10.6 Gm Hfa.aeroba, 10.6 GM IH DAILY, INH 05/23/18 Amlodipine Besylate* (Norvasc*) 5 Mg Tablet, 5 MG PO BID, TAB 05/23/18 Losartan-Hydrochlorothiazide (Losartan-HCTZ) 100-25 Mg Tab, 1 TAB PO DAILY, TAB 05/23/18 Medications Current Medications Levothyroxine Sodium (Synthroid) 50 mcg BEFORE BREAKFAST PO Last administered on 07/06/18at 06:07; Admin Dose 50 MCG; Start 05/30/18 at 07:00 Mometasone Furoate (Asmanex) 1 puff DAILY INH Last administered on 07/06/18at 08:30; Admin Dose 1 PUFF; Start 05/29/18 at 11:00 Atorvastatin Calcium (Lipitor) 10 mg DAILY@21 PO Last administered on 07/05/18at 20:57; Admin Dose 10 MG; Start 05/29/18 at 21:00 Latanoprost (Xalatan) 1 drop HS BOTH EYES Last administered on 07/05/18at 21:01; Admin Dose 1 DROP; Start 06/01/18 at 21:00 Amlodipine Besylate (Norvasc) 5 mg DAILY PO ; Start 06/03/18 at 09:00; Status Hold Pantoprazole (Protonix Tab) 40 mg DAILY@06 PO Last administered on 07/06/18 06:07; Admin Dose 40 MG; Start 06/05/18 at 06:00 Metoclopramide HCl (Reglan) 5 mg TID PRN IV Nausea; Start 06/06/18 at 11:00 Polyethylene Glycol (Miralax) 17 gm BID PRN PO CONSTIPATION; Start 06/06/18 at 14:00 Bisacodyl (Dulcolax Supp) 10 mg DAILY PRN [place] CONSTIPATION; Start 06/06/18 at 14:00 IV Flush (NS 10 ml) 10 ml PRN PRN IV IV PROTOCOL; Start 06/06/18 at 16:00 Nystatin (Nystatin Susp) 5 ml QID PO Last administered on 07/06/18at 08:29; Ad min Dose 5 ML; Start 06/06/18 at 17:00 Metoprolol Tartrate (Lopressor) 25 mg BID PO Last administered on 07/06/18at 08:29; Admin Dose 25 MG; Start 06/13/18 at 21:00 Metoprolol Tartrate (Lopressor) 5 mg Q4H PRN IV HR>110 Hold SBP<100; Start 06/13/18 at 10:30 Morphine Sulfate (morphine) 6 mg Q2H PRN PO FOR NON CARDIAC PAIN (4-10); Start 06/13/18 at 11:30 Docusate Sodium (Colace) 100 mg DAILY PRN PO CONSTIPATION; Start 06/21/18 at 12:00 Miscellaneous Information (Pending Santyl Order For Wound Care) This patient gomes... PRN PRN XX WOUND CARE; Start 06/21/18 at 16:00 Amiodarone HCl (Cordarone) 200 mg BID PO Last administered on 07/06/18at 08:29; Admin Dose 200 MG; Start 06/22/18 at 21:00 Miscellaneous Information (*Order Clarification Bulletin) MEDICATION REQUIRES CLARIFICATION:PLE... Q8H XX Last administered on 06/30/18at 12:00; Admin Dose 1 EA; Start 06/26/18 at 12:00 Bumetanide (Bumex) 0.5 mg DAILY@0600 PO Last administered on 07/02/18at 05:51; Admin Dose 0.5 MG; Start 07/02/18 at 06:00; Status Hold Warfarin Sodium (Coumadin) 5 mg DAILY@17 PO Last administered on 07/05/18at 16:58; Admin Dose 5 MG; Start 07/05/18 at 17:00 Assessment/Plan Hospital Course (Demo Recall) 62-year-old female underwent coronary angiogram. 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 I did insert the catheter for her and she was anuric. Since then she has improved and has been making urine and the urine was clear however today her urine was bloody. We checked her postvoid residual and she had only 175 mL. Urine was sent for culture and sensitivity. Her last urine culture was no growth after 48 hours. The patient has been having hematuria for the past 2 days and today as she is to drop to have the physical therapy a lot of blood came out. I ordered CT scan of the abdomen and pelvis to see if the hematoma has fistulized into the bladder. She underwent a CT scan and that was reported: 1. Compared to the previous exam of 06/06/2018, the previously seen right lower quadrant pigtail catheter has been removed and the chronic hemoperitoneum or pelvic hematoma has decreased in volume now estimated at 1033 cc compared to all 1260 cc with evolution of the blood products, the attenuation decreasing from 72 HU to 45 HU. Continued surveillance is recommended with follow-up CT as determined clinically. 2. Atrophic uterus without endometrial thickening or other findings to explain the patient's provided history of vaginal bleeding. 3. Post thoracotomy changes with marked cardiomegaly, mitral valve prosthesis, left ventricular apex calcification and increased bibasilar subsegmental atelectasis. 4. Nodular contour to the liver consistent with cirrhosis is again noted. 5. Cholelithiasis without evidence for cholecystitis. 6. Stable mild splenomegaly. 7. Tiny left intrarenal calculus without hydronephrosis. 8. Contracted urinary bladder is difficult to evaluate. 9. Resolved small bowel wall thickening, enteric contrast media within the colon with diverticular disease but no diverticulitis. 10. Resolved anasarca pattern of the subcutaneous tissues I did call the radiologist who read the CT scan and discussed with him the clinical reasons I requested the CT scan and the suspicion that I had for a fistula. He did review the CT while I was talking with him and added an amendment to the report that says: AMENDMENT: 07/01/2018 7:59:21 PM Anjum Magallon D.o A telephone conversation takes place with the patient's urologist, Dr. Godwin, at 19:50 and he kindly provides additional history of sudden onset of hematuria upon standing. Upon further review of the images, there is loss of the normal fat plane between the pelvic hematoma with the anterior dome of the urinary bladder which cannot exclude the possibility of a fistula between the hematoma and a bladder that would explain the patients hematuria. There is preservation of the fat plane between the hematoma and the middle and inferior portion of the anterior urinary bladder. There is no evidence of loss of fat plane between the hematoma and vagina to suggest a fistula in this location. It is discussed that the patient would likely benefit from further evaluation with a CT cystogram performed in the prone position to limit the amount of contrast to opacify the potential fistula. 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 The bleeding in her urine is coming from that hematoma. I did show her son the pictures and explained to him that if the hematoma drains through the bladder we just have to keep the Mensah catheter in and wait for it to drain completely and then the bladder hopefully will heal by itself and if it does not we could always do surgery and close it. At the present the Mensah catheter continues to drain dark blood mixed with urine. The suprapubic hematoma is smaller in size. The urine culture grew: URINE CULTURE Final Organism 1 SHANTANUFNIA ALVEI COLONY COUNT >100,000 CFU/ml Organism 2 MIXED GRAM POSITIVE ORGANISMS COLONY COUNT >100,000 CFU/ml HAF ALVEI LARRY LOPEZI M.I.C. RX M.I.C. RX --------- --- --------- --- AMPICILLIN R AMPICILLIN/SULBACTAM >=32 R CEFAZOLIN R CEFOTAXIME S CIPROFLOXACIN <=0.25 S GENTAMICIN <=1 S LEVOFLOXACIN <=0.12 S MEROPENEM 0.064 S NITROFURANTOIN <=16 S TOBRAMYCIN <=1 S TRIMETHOPRIM/SULFAMETHOXAZOLE <=20 S The patient is on Zosyn. Patient is comfortable and she has no pain. The abdomen is softer and the suprapubic mass is smaller. The suprapubic hematoma is getting smaller and the bladder urine is blood-tinged from the hematoma that is draining into it. For now continue the same: Keep the Mensah catheter in place, continue the antibiotics. JOAQUIN DE LEON MD Jul 06, 2018 08:36
--- NOTE | 2018-07-06 08:56 | PN ---
DATE: 07/06/2018 SUBJECTIVE: The patient continues to have ongoing hematuria. No significant change. OBJECTIVE: VITAL SIGNS: Blood pressure is 139/62, pulse 79, temperature 98.3. HEENT: Head is normocephalic. NECK: Supple. HEART: Regular rate. LUNGS: Show diminished breath sounds at the base. ABDOMEN: Soft, nontender to palpation without rebound or guarding. EXTREMITIES: Negative for clubbing, cyanosis. No edema. DERMATOLOGIC: No rashes. MUSCULOSKELETAL: No joint effusion. NEUROLOGIC: No change in exam. MEDICATIONS: The patient's medications have been reviewed. LABORATORY DATA: From 07/05/2018 was reviewed. ASSESSMENT AND PLAN: 1. Nonoliguric acute kidney injury with previously normal baseline creatinine. Etiology of acute ki dney injury is secondary to acute tubular necrosis. Renal function is improved. Continue current tr eatment plans, supportive care, renally dose all meds. 2. Hematuria. 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 Continue to monitor. Follow up with urology. 3. Volume overload, improved. Continue low-dose diuretic therapy. 4. Hypokalemia. Continue to monitor and replete as needed. 5. Anemia. Monitor hemoglobin and hematocrit levels. 6. Mechanical heart valve. Continue anticoagulation per cardiology. 7. Sepsis secondary to urinary tract infection. The patient is completing antibiotic course. 8. Hypothyroidism. Continue Synthroid. 9. Dyslipidemia. Continue statin therapy. 10. Hypertension. 11. Intraabdominal hematoma. Dictated By: GWYN FABIAN DO NR/NTS Conf#: [id number] DID#: [id number] CC: CHRIS LAZAR MD;*EndCC*
[2018-07-06] MEDS: [UNRECOGNIZED DRUG - OTHER] XX SCH (12:16)
--- NOTE | 2018-07-06 13:54 | PN ---
Date/Time of Note Date/Time of Note DATE: 07/06/18 TIME: 13:43 Assessment/Plan VTE Prophylaxis Risk score (from Ns)>0 risk: 6 SCD applied (from Ns): Yes Pharmacological prophylaxis: NA/contraindicated Pharm contraindication: bleeding Lines/Catheters IV Catheter Type (from Nrs): PICC Line Central line still needed: Yes Urinary Cath still in place: Yes Reason Cath still needed: urinary retention Assessment/Plan Hospital Course Patient is awake, alert, status post blood transfusion yesterday. Pt continues to have hematuria, Mensah. INR is 3.65 Coumadin is held today continue to monitor PT and INR. 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 Continue to monitor. Dr. Ashford is following in urology consultation. -Anemia of acute bllod loss, transfuse PRN, monitor H&H. -UTI, continue abx per ID. Dr. Castellanos is following in infection disease consultation. -S/p Nose/oropharyngeal bleed on 06/11/2018, stopped after heparin was held. -Retroperitoneal bleed secondary to vascular injury status post stent placement. Monitor H and H. S/p eval by Dr. Kilpatrick, vascular surgery consultation. -Status post left heart catheterization with no significant obstructive coronary artery disease by Dr. Moreno on 05/27/2018. -Anemia of acute blood loss, status post blood transfusion, continue to monitor hemoglobin and hematocrit. -Urinary incontinence. -Acute illness myopathy -Status post mitral valve replacement with mechanical valve in 1999 in [facility]. Continue Coumadin, monitor PT/INR. -HTN, continue metoprolol -Hyperlipidemia -Hypothyroidism, continue levothyroxine -History of asthma Further recommendations based on clinical course. Plan of care discussed with Dr. Painter. Result Diagram: 07/06/18 0523 07/05/18 0541 Results 24hrs Laboratory Tests Test 07/05/18 15:03 07/06/18 05:23 07/06/18 08:24 Hemoglobin 9.0 L 9.0 L Hematocrit 27.9 L 28.8 L White Blood Count 4.8 Red Blood Count 2.87 L Mean Corpuscular Volume 100.3 Mean Corpuscular Hemoglobin 31.4 Mean Corpuscular 31.3 L Hemoglobin Concent Red Cell Distribution Width 18.7 H Platelet Count 169 Mean Platelet Volume 9.8 Immature Granulocytes % 2.500 H Neutrophils % 60.8 Lymphocytes % 27.3 Monocytes % 6.5 Eosinophils % 2.3 Basophils % 0.6 Nucleated Red Blood Cells % 0.0 Immature Granulocytes # 0.120 H Neutrophils # 2.9 Lymphocytes # 1.3 Monocytes # 0.3 Eosinophils # 0.1 Basophils # 0.0 Nucleated Red Blood Cells # 0.0 Prothrombin Time 36.3 #H Prothrombin Time Ratio 2.8 INR International 3.65 Normalized Ratio Lab Scanned Report BLOOD TRANSFUSION Exam/Review of Systems Exam Vitals Vital Signs Date Temp Pulse Resp B/P (MAP) Pulse Ox O2 O2 Flow FiO2 Time Delivery Rate 07/06/18 97.3 76 18 131/59 95 11:14 (83) 07/06/18 Room Air 03:38 Intake and Output 07/05/18 07/05/18 07/06/18 1515:00 23:00 07:00 IntakeIntake Total 137.5 ml 1250 ml 250 ml OutputOutput Total 400 ml 650 ml BalanceBalance 137.5 ml 850 ml -400 ml Exam Constitutional: alert, oriented Respiratory: clear to auscultation Cardiovascular: irregular rhythm Gastrointestinal: soft, non-tender Genitourinary - Female: other (Mensah ) Extremities: normal pulses Skin: nl turgor Results Results 24hrs Laboratory Tests Test 07/05/18 15:03 07/06/18 05:23 07/06/18 08:24 Hemoglobin 9.0 L 9.0 L Hematocrit 27.9 L 28.8 L White Blood Count 4.8 Red Blood Count 2.87 L Mean Corpuscular Volume 100.3 Mean Corpuscular Hemoglobin 31.4 Mean Corpuscular 31.3 L Hemoglobin Concent Red Cell Distribution Width 18.7 H Platelet Count 169 Mean Platelet Volume 9.8 Immature Granulocytes % 2.500 H Neutrophils % 60.8 Lymphocytes % 27.3 Monocytes % 6.5 Eosinophils % 2.3 Basophils % 0.6 Nucleated Red Blood Cells % 0.0 Immature Granulocytes # 0.120 H Neutrophils # 2.9 Lymphocytes # 1.3 Monocytes # 0.3 Eosinophils # 0.1 Basophils # 0.0 Nucleated Red Blood Cells # 0.0 Prothrombin Time 36.3 #H Prothrombin Time Ratio 2.8 INR International 3.65 Normalized Ratio Lab Scanned Report BLOOD TRANSFUSION Medications Medication Current Medications Levothyroxine Sodium (Synthroid) 50 mcg BEFORE BREAKFAST PO Last administered on 07/06/18 06:07; Admin Dose 50 MCG; Start 05/30/18 at 07:00 Mometasone Furoate (Asmanex) 1 puff DAILY INH Last administered on 07/06/18 08:30; Admin Dose 1 PUFF; Start 05/29/18 at 11:00 Atorvastatin Calcium (Lipitor) 10 mg DAILY@21 PO Last administered on 07/05/18 20:57; Admin Dose 10 MG; Start 05/29/18 at 21:00 Latanoprost (Xalatan) 1 drop HS BOTH EYES Last administered on 07/05/18 21:01; Admin Dose 1 DROP; Start 06/01/18 at 21:00 Amlodipine Besylate (Norvasc) 5 mg DAILY PO ; Start 06/03/18 at 09:00; Status Hold Pantoprazole (Protonix Tab) 40 mg DAILY@06 PO Last administered on 07/06/18 06:07; Admin Dose 40 MG; Start 06/05/18 at 06:00 Metoclopramide HCl (Reglan) 5 mg TID PRN IV Nausea; Start 06/06/18 at 11:00 Polyethylene Glycol (Miralax) 17 gm BID PRN PO CONSTIPATION; Start 06/06/18 at 14:00 Bisacodyl (Dulcolax Supp) 10 mg DAILY PRN [place] CONSTIPATION; Start 06/06/18 at 14:00 IV Flush (NS 10 ml) 10 ml PRN PRN IV IV PROTOCOL; Start 06/06/18 at 16:00 Nystatin (Nystatin Susp) 5 ml QID PO Last administered on 07/06/18at 12:17; Ad min Dose 5 ML; Start 06/06/18 at 17:00 Metoprolol Tartrate (Lopressor) 25 mg BID PO Last administered on 07/06/18at 08:29; Admin Dose 25 MG; Start 06/13/18 at 21:00 Metoprolol Tartrate (Lopressor) 5 mg Q4H PRN IV HR>110 Hold SBP<100; Start 06/13/18 at 10:30 Morphine Sulfate (morphine) 6 mg Q2H PRN PO FOR NON CARDIAC PAIN (4-10); Start 06/13/18 at 11:30 Docusate Sodium (Colace) 100 mg DAILY PRN PO CONSTIPATION; Start 06/21/18 at 12:00 Miscellaneous Information (Pending [facility] Order For Wound Care) This patient gomes... PRN PRN XX WOUND CARE; Start 06/21/18 at 16:00 Amiodarone HCl (Cordarone) 200 mg BID PO Last administered on 07/06/18at 08:29; Admin Dose 200 MG; Start 06/22/18 at 21:00 Miscellaneous Information (*Order Clarification Bulletin) MEDICATION REQUIRES CLARIFICATION:PLE... Q8H XX Last administered on 06/30/18at 12:00; Admin Dose 1 EA; Start 06/26/18 at 12:00 Bumetanide (Bumex) 0.5 mg DAILY@0600 PO Last administered on 07/02/18at 05:51; Admin Dose 0.5 MG; Start 07/02/18 at 06:00; Status Hold Warfarin Sodium (Coumadin) 5 mg DAILY@17 PO Last administered on 07/05/18at 16:58; Admin Dose 5 MG; Start 07/05/18 at 17:00; Status Hold Miscellaneous Information (* Miscellaneous Pharmacy Order) METOCLOPRAMIDE ORDER EXPIRES ON ... Q12H XX ; Start 07/06/18 at 12:30 KRISTY MCCULLOUGH Jul 06, 2018 13:53
--- NOTE | 2018-07-06 14:56 | CONS ---
Assessment/Plan Assessment/Plan Hospital Course (Demo Recall) # sepsis, cardiopulmonary - s/p severe sepsis due to UTI, resolved - s/p SIRS due to acute blood loss, resolved - s/p L heart catheterization on 05/27/2018 showing no significant obstructive CAD - CAD - s/p CABG in [place] in 1982 - H/o MVR with mechanical valve, in 1999 - Hypertension - PAF - Asthma # urology/renal, GI - hematuria caused by ruptured urinary bladder - CT abd pelvis on 07/02/18 showed large extravasation of contrast administered through a F/c into the large anterior pelvic fluid collection is demonstrated, consistent with bladder rupture. no contrast seen within the vagina to suggest fistulization with the overlying urinary bladder. - UTI due to hafnai alvei and pediococci on 06/30/18. Pt completed pip/tazo (07/02/18-07/05/2018) - S/p UTI due to E. coli. 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 d/w Dr. Ashford on 07/05/2018 Consultation Date/Type/Reason Admit Date/Time May 28, 2018 at 17:52 Initial Consult Date 06/03/18 Type of Consult ID Requesting Provider: JULY VALENTIN MD Date/Time of Note DATE: 07/06/18 TIME: 14:53 24 HR Interval Summary Free Text/Dictation Pt was soundly asleep Subjective hx not possible: pt non-verbal Exam/Review of Systems Exam Vitals Vital Signs Date Temp Pulse Resp B/P (MAP) Pulse Ox O2 O2 Flow FiO2 Time Delivery Rate 07/06/18 64 12:01 07/06/18 97.3 18 131/59 95 11:14 (83) 07/06/18 Room Air 03:38 Intake and Output 07/05/18 07/05/18 07/06/18 1515:00 23:00 07:00 IntakeIntake Total 137.5 ml 1250 ml 250 ml OutputOutput Total 400 ml 650 ml BalanceBalance 137.5 ml 850 ml -400 ml Constitutional: non-verbal, frail, other (asleep) Head: normocephalic, atraumatic Eyes: nl lids ENMT: nl external ears & nose, nl nasal mucosa & septum Neck: other (not swollen) Respiratory: other (normal resp effort) Genitourinary - Female: other (+hematuria in vincent catheter) Musculoskeletal: No swelling Extremities: pitting pedal edema Neurological: other (asleep) Skin: ecchymosis Results Result Diagram: 07/06/18 0523 07/05/18 0541 Results 24hrs Laboratory Tests Test 07/05/18 15:03 07/06/18 05:23 07/06/18 08:24 Hemoglobin 9.0 L 9.0 L Hematocrit 27.9 L 28.8 L White Blood Count 4.8 Red Blood Count 2.87 L Mean Corpuscular Volume 100.3 Mean Corpuscular Hemoglobin 31.4 Mean Corpuscular 31.3 L Hemoglobin Concent Red Cell Distribution Width 18.7 H Platelet Count 169 Mean Platelet Volume 9.8 Immature Granulocytes % 2.500 H Neutrophils % 60.8 Lymphocytes % 27.3 Monocytes % 6.5 Eosinophils % 2.3 Basophils % 0.6 Nucleated Red Blood Cells % 0.0 Immature Granulocytes # 0.120 H Neutrophils # 2.9 Lymphocytes # 1.3 Monocytes # 0.3 Eosinophils # 0.1 Basophils # 0.0 Nucleated Red Blood Cells # 0.0 Prothrombin Time 36.3 #H Prothrombin Time Ratio 2.8 INR International 3.65 Normalized Ratio Lab Scanned Report BLOOD TRANSFUSION Medications Medication Current Medications Levothyroxine Sodium (Synthroid) 50 mcg BEFORE BREAKFAST PO Last administered on 07/06/18at 06:07; Admin Dose 50 MCG; Start 05/30/18 at 07:00 Mometasone Furoate (Asmanex) 1 puff DAILY INH Last administered on 07/06/18at 08:30; Admin Dose 1 PUFF; Start 05/29/18 at 11:00 Atorvastatin Calcium (Lipitor) 10 mg DAILY@21 PO Last administered on 07/05/18at 20:57; Admin Dose 10 MG; Start 05/29/18 at 21:00 Latanoprost (Xalatan) 1 drop HS BOTH EYES Last administered on 07/05/18at 21:01; Admin Dose 1 DROP; Start 06/01/18 at 21:00 Amlodipine Besylate (Norvasc) 5 mg DAILY PO ; Start 06/03/18 at 09:00; Status Hold Pantoprazole (Protonix Tab) 40 mg DAILY@06 PO Last administered on 07/06/18at 06:07; Admin Dose 40 MG; Start 06/05/18 at 06:00 Metoclopramide HCl (Reglan) 5 mg TID PRN IV Nausea; Start 06/06/18 at 11:00 Polyethylene Glycol (Miralax) 17 gm BID PRN PO CONSTIPATION; Start 06/06/18 at 14:00 Bisacodyl (Dulcolax Supp) 10 mg DAILY PRN [place] CONSTIPATION; Start 06/06/18 at 14:00 IV Flush (NS 10 ml) 10 ml PRN PRN IV IV PROTOCOL; Start 06/06/18 at 16:00 Nystatin (Nystatin Susp) 5 ml QID PO Last administered on 07/06/18at 12:17; Admin Dose 5 ML; Start 06/06/18 at 17:00 Metoprolol Tartrate (Lopressor) 25 mg BID PO Last administered on 07/06/18at 08:29; Admin Dose 25 MG; Start 06/13/18 at 21:00 Metoprolol Tartrate (Lopressor) 5 mg Q4H PRN IV HR>110 Hold SBP<100; Start 06/13/18 at 10:30 Morphine Sulfate (morphine) 6 mg Q2H PRN PO FOR NON CARDIAC PAIN (4-10); Start 06/13/18 at 11:30 Docusate Sodium (Colace) 100 mg DAILY PRN PO CONSTIPATION; Start 06/21/18 at 12:00 Miscellaneous Information (Pending [facility] Order For Wound Care) This patient gomes... PRN PRN XX WOUND CARE; Start 06/21/18 at 16:00 Amiodarone HCl (Cordarone) 200 mg BID PO Last administered on 07/06/18at 08:29; Admin Dose 200 MG; Start 06/22/18 at 21:00 Miscellaneous Information (*Order Clarification Bulletin) MEDICATION REQUIRES CLARIFICATION:PLE... Q8H XX Last administered on 06/30/18at 12:00; Admin Dose 1 EA; Start 06/26/18 at 12:00 Bumetanide (Bumex) 0.5 mg DAILY@0600 PO Last administered on 07/02/18at 05:51; Admin Dose 0.5 MG; Start 07/02/18 at 06:00; Status Hold Warfarin Sodium (Coumadin) 5 mg DAILY@17 PO Last administered on 07/05/18at 16:58; Admin Dose 5 MG; Start 07/05/18 at 17:00; Status Hold Miscellaneous Information (* Miscellaneous Pharmacy Order) METOCLOPRAMIDE ORDER EXPIRES ON .. Q12H XX ; Start 07/06/18 at 12:30 SHARI CROWELL M.D. Jul 06, 2018 14:56
--- NOTE | 2018-07-06 17:15 | CONS ---
Assessment/Plan Assessment/Plan Hospital Course (Demo Recall) IMP: 1.cad s/p LHC with no sig obstructive cad. Mildly depressed LVEF--40-45% ? nonischemic process 2.HTN 3.RP Bleed s/p transfusions now stable and tolerating heparin/coumadin loading. Then had recurrent bled overnight now s/p covered stent to ELECTRONIC PLOTTING SYSTEM OPERATOR/Ext iliac. Stable collection by abd CT 06/06 but still with pigtail catheter in place 4.HL 5.MVR-mechanical 6.anemia- s/p repair of R ELECTRONIC PLOTTING SYSTEM OPERATOR/illiac. Had hemoptysis with subsequent drop in Hgb again and holding of heparin. Had some mild blood tinged sputum 7.Hypothyroid 8. GOMES-negative Head CT 9. Fevers-with positive ua 10. UTI-recurrent by u/a 06/29 11.ARF-? Contrast induced/compression from hematoma- now improving with increased urine output and slowly decreasing data base design analyst 12. Coagulopathy-now therapeutic 14. LE weakness-? compression from hematoma and exacerbated by femoral compression after cath-now resolved 15. arterial insuff- LLE- s/p LINE RIDER/thrombolysis 06/04 successfully with palpable pulses/B DP/PT and remain that way 16. PAF/AFL-rate controlled 17. 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 18. Epistaxis-improved 19. anemia-stable overall with possible mild downtrend today Recc: -Now on tele -Continue BB with well controlled Hr's -Continue statin -s/p course of abx's -ongoing ID f/u -F/U data base design analyst/K closely with creatnine now normalized and volume status improved. -Follow HGb closely which has been stable to improved actually -PT/ambulation -Follow volume status closely now off of bumex -will continue amio bid for now in attempt to return patient to [facility] -Urology following with findings of apparent bladder fistula and thus draining of the hematoma through the bladder causing hematuria. Per urology thus ok to continue coumadin. Follow hematuria for resolution and assess need for spon taneous closure versus need for repair discussed with urology. Follow INR closely which is now supratherapeutic -Hold coumadin and follow INR Consultation Date/Type/Reason Admit Date/Time May 28, 2018 at 17:52 Initial Consult Date 05/28/18 Type of Consult Cardiology Reason for Consultation MVR Requesting Provider: JULY VALENTIN MD Date/Time of Note DATE: 07/06/18 TIME: 17:10 Exam/Review of Systems Vital Signs Vitals Vital Signs Date Temp Pulse Resp B/P (MAP) Pulse Ox O2 O2 Flow FiO2 Time Delivery Rate 07/06/18 68 16:01 07/06/18 97.6 18 134/62 93 15:04 (86) 07/06/18 Room Air 03:38 Intake and Output 07/05/18 07/05/18 07/06/18 1515:00 23:00 07:00 IntakeIntake Total 137.5 ml 1250 ml 250 ml OutputOutput Total 400 ml 650 ml BalanceBalance 137.5 ml 850 ml -400 ml Exam Exam Review of Systems: CONSTITUTIONAL: No fevers, chills. PULMONARY: No sob CARDIOVASCULAR: No chest pain/palpitations GASTROINTESTINAL: No nausea/vomiting. GENITOURINARY: No hematuria/dysuria. MUSCULOSKELETAL: No myagias/arthalgias. PSYCHIATRIC: The patient denies depression. NEUROLOGIC: No weakness Constitutional: alert Psych: no complaints Head: normocephalic ENMT: mucosa pink and moist Neck: supple, jvd Respiratory: clear to auscultation Cardiovascular: regular rate and rhythm Gastrointestinal: soft, non-tender Musculoskeletal: muscle tone (normal) Extremities: edema (none) Labs Result Diagram: 07/06/18 0523 07/05/18 0541 Results 24hrs Laboratory Tests Test 07/06/18 05:23 07/06/18 08:24 White Blood Count 4.8 Red Blood Count 2.87 L Hemoglobin 9.0 L Hematocrit 28.8 L Mean Corpuscular Volume 100.3 Mean Corpuscular Hemoglobin 31.4 Mean Corpuscular Hemoglobin Concent 31.3 L Red Cell Distribution Width 18.7 H Platelet Count 169 Mean Platelet Volume 9.8 Immature Granulocytes % 2.500 H Neutrophils % 60.8 Lymphocytes % 27.3 Monocytes % 6.5 Eosinophils % 2.3 Basophils % 0.6 Nucleated Red Blood Cells % 0.0 Immature Granulocytes # 0.120 H Neutrophils # 2.9 Lymphocytes # 1.3 Monocytes # 0.3 Eosinophils # 0.1 Basophils # 0.0 Nucleated Red Blood Cells # 0.0 Prothrombin Time 36.3 #H Prothrombin Time Ratio 2.8 INR International Normalized Ratio 3.65 Lab Scanned Report BLOOD TRANSFUSION Medications Medications Current Medications Levothyroxine Sodium (Synthroid) 50 mcg BEFORE BREAKFAST PO Last administered on 07/06/18 06:07; Admin Dose 50 MCG; Start 05/30/18 at 07:00 Mometasone Furoate (Asmanex) 1 puff DAILY INH Last administered on 07/06/18 08:30; Admin Dose 1 PUFF; Start 05/29/18 at 11:00 Atorvastatin Calcium (Lipitor) 10 mg DAILY@21 PO Last administered on 07/05/18 20:57; Admin Dose 10 MG; Start 05/29/18 at 21:00 Latanoprost (Xalatan) 1 drop HS BOTH EYES Last administered on 07/05/18 21:01; Admin Dose 1 DROP; Start 06/01/18 at 21:00 Amlodipine Besylate (Norvasc) 5 mg DAILY PO ; Start 06/03/18 at 09:00; Status Hold Pantoprazole (Protonix Tab) 40 mg DAILY@06 PO Last administered on 07/06/18 06:07; Admin Dose 40 MG; Start 06/05/18 at 06:00 Metoclopramide HCl (Reglan) 5 mg TID PRN IV Nausea; Start 06/06/18 at 11:00 Polyethylene Glycol (Miralax) 17 gm BID PRN PO CONSTIPATION; Start 06/06/18 at 14:00 Bisacodyl (Dulcolax Supp) 10 mg DAILY PRN [place] CONSTIPATION; Start 06/06/18 at 14:00 IV Flush (NS 10 ml) 10 ml PRN PRN IV IV PROTOCOL; Start 06/06/18 at 16:00 Nystatin (Nystatin Susp) 5 ml QID PO Last administered on 07/06/18at 16:48; Admin Dose 5 ML; Start 06/06/18 at 17:00 Metoprolol Tartrate (Lopressor) 25 mg BID PO Last administered on 07/06/18 08:29; Admin Dose 25 MG; Start 06/13/18 at 21:00 Metoprolol Tartrate (Lopressor) 5 mg Q4H PRN IV HR>110 Hold SBP<100; Start 06/13/18 at 10:30 Morphine Sulfate (morphine) 6 mg Q2H PRN PO FOR NON CARDIAC PAIN (4-10); Start 06/13/18 at 11:30 Docusate Sodium (Colace) 100 mg DAILY PRN PO CONSTIPATION; Start 06/21/18 at 12:00 Miscellaneous Information (Pending [facility] Order For Wound Care) This patient gomes... PRN PRN XX WOUND CARE; Start 06/21/18 at 16:00 Amiodarone HCl (Cordarone) 200 mg BID PO Last administered on 07/06/18at 08:29; Admin Dose 200 MG; Start 06/22/18 at 21:00 Miscellaneous Information (*Order Clarification Bulletin) MEDICATION REQUIRES CLARIFICATION:PLE... Q8H XX Last administered on 06/30/18at 12:00; Admin Dose 1 EA; Start 06/26/18 at 12:00 Bumetanide (Bumex) 0.5 mg DAILY@0600 PO Last administered on 07/02/18at 05:51; Admin Dose 0.5 MG; Start 07/02/18 at 06:00; Status Hold Warfarin Sodium (Coumadin) 5 mg DAILY@17 PO Last administered on 07/05/18at 16:58; Admin Dose 5 MG; Start 07/05/18 at 17:00; Status Hold Miscellaneous Information (* Miscellaneous Pharmacy Order) METOCLOPRAMIDE ORDER EXPIRES ON ... Q12H XX ; Start 07/06/18 at 12:30 CHRIS LAZAR Jul 06, 2018 17:14
[2018-07-06] MEDS: ATORVASTATIN 10 MG TAB PO SCH (19:57)
[2018-07-06] MEDS: LATANOPROST 0.005% 2.5 ML OPH BOTH EYES SCH (19:59)
[2018-07-07] VITALS (11 sets, daily range): BP systolic 119–142; BP diastolic 58–66; PULSE 62–79; RESP 18–19
[2018-07-07] MEDS: [UNRECOGNIZED DRUG - OTHER] XX SCH ×2 (00:13→12:30)
[2018-07-07] MEDS: PANTOPRAZOLE (EC) 40 MG TAB PO SCH (06:04)
[2018-07-07] MEDS: LEVOTHYROXINE 50 MCG TAB PO SCH (06:04)
[2018-07-07] MEDS: NYSTATIN SUSP 5 ML CUP PO SCH ×4 (08:56→21:13)
[2018-07-07] MEDS: MOMETASONE 0.24 GM INHALER INH SCH (08:56)
[2018-07-07] MEDS: METOPROLOL 25 MG TAB PO SCH ×2 (08:57→21:13)
[2018-07-07] MEDS: AMIODARONE 200 MG TAB PO SCH ×2 (08:57→21:13)
--- NOTE | 2018-07-07 09:28 | PN ---
DATE: 07/07/2018 SUBJECTIVE: The patient continues to have hematuria, although improving. No other events noted. No hemoptysis, hematemesis. OBJECTIVE: VITAL SIGNS: Blood pressure is 140/66, respiration 19, pulse 69, temperature 98.0. HEENT: Head is normocephalic. NECK: Supple. HEART: Regular rate. LUNGS: Show diminished breath sounds at the base. ABDOMEN: Soft, nontender to palpation without rebound or guarding. EXTREMITIES: Negative for clubbing, cyanosis, no edema. DERMATOLOGIC: No rashes. MUSCULOSKELETAL: No joint effusion. NEUROLOGIC: No change in exam. MEDICATIONS: Reviewed. LABORATORY DATA: Has been reviewed. ASSESSMENT AND PLAN: 1. Nonoliguric acute kidney injury with previously normal baseline creatinine. Etiology of acute ki dney injury is secondary to acute tubular necrosis. Renal function is improved. Continue current tr eatment plan, supportive care, renally dose all meds. 2. Hematuria. 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 Continue to monitor. Follow up with urology. 3. Volume overload, improved. Continue low-dose diuretic therapy. 4. Hypokalemia. Continue to monitor and replete as needed. 5. Anemia. Monitor hemoglobin and hematocrit levels. 6. Mechanical heart valve. Continue anticoagulation per cardiology. 7. Sepsis secondary to urinary tract infection. The patient is completing antibiotic course. 8. Hypothyroidism. Continue Synthroid. 9. Dyslipidemia. Continue statin therapy. 10. Hypertension. 11. Intraabdominal hematoma. Dictated By: GWYN FABIAN DO NR/NTS Conf#: [id number] DID#: [id number] CC: CHRIS LAZAR MD;*EndCC*
--- NOTE | 2018-07-07 11:17 | CONS ---
DATE OF ADMISSION: 05/28/2018 DATE OF CONSULTATION: 07/07/2018 HISTORY OF PRESENT ILLNESS: The patient is a 62-year-old female with a history of coronary artery by pass graft, hypertension, dyslipidemia, mechanical mitral valve replacement in 1999, was admitted for shortness of breath. The patient has been here for a long period of time, was found to have sepsis secondary to urinary tract infection, which got resolved. She also had a cardiac catheterization on 05/27/2018. There was no significant coronary artery obstructive disease. The patient also had josephine turia caused by ruptured urinary bladder and is being treated conservatively with a Mensah catheter. The patient also had a CT-guided placement of drainage catheter into the pelvic hematoma. She was fo und to have a coagulopathy secondary to warfarin, had a pseudoaneurysm also of the right femoral mariluz ry and covered stent was placed into the common femoral and right iliac artery. During her workup in the hospital, GI consult was called in because CAT scan of the abdomen revealed cirrhosis of liver. I interrogated the patient and the and the son-in-law. The patient never had liver disease. No history of alcohol consumption. No gross GI bleeding, no abdominal pain now. ALLERGIES: NONE. SOCIAL HISTORY: She does not smoke or drink alcohol. REVIEW OF SYSTEMS: At this point, negative. PAST MEDICAL HISTORY: As described in the history of present illness PHYSICAL EXAMINATION:. GENERAL: Alert, awake, not in distress. VITAL SIGNS: Stable. HEENT: Unremarkable. NECK: Supple, no thyromegaly, no lymphadenopathy. CARDIOVASCULAR: No murmur, gallop or click. LUNGS: Clear. ABDOMEN: Benign. He has got Mensah catheter and the patient has hematuria. LABORATORY DATA: WBC is 5. Hematocrit is 28. Platelet count is 164. CMP, liver function test all grossly within normal limits. Coagulation now, INR is 2.5. Hepatitis B surface antigen was negative . Stool for occult blood 1 was positive on 07/01/2018. The patient had a CAT scan of the abdomen an d pelvis, which showed a right lower hemoperitoneum. The patient has a nodular liver and a gallstone . IMPRESSION: 1. Cirrhosis of liver, etiology is unclear. 2. Coronary artery disease, nonobstructive, with ejection fraction of 40 to 45%, nonischemic. 3. Hypertension. 4. Retroperitoneal bleed. 5. Mitral valve replacement due to mechanical mitral valve. 6. Hypothyroidism. 7. Urinary tract infection. 8. Paroxysmal atrial fibrillation, rate is controlled. 9. Hematuria. 10. Status post rupture of the urinary bladder. 11. Epistaxis, improved. PLAN: To continue present care. We will work her up for the cirrhosis of liver. Dictated By: ALEXANDRU CHAPIN MD PJ/NTS Conf#: [id number] DID#: [id number] CC: CHRIS LAZAR MD; JOAQUIN DE LEON MD; ALEXANDRU CHAPIN MD; JULY VALENTIN MD;*EndCC*
--- NOTE | 2018-07-07 17:13 | PN ---
Date/Time of Note Date/Time of Note DATE: 07/07/18 TIME: 17:12 Assessment/Plan VTE [place]axis [place] [facility] [place]: 4 [place] [facility] [place] SCD contraindicated: patient refusal Pharmacological prophylaxis: warfarin tx Lines/Catheters IV [facility] (from [facility] PICC Line Central line still needed: Yes Urinary Cath still in place: Yes Reason Cath still needed: urinary retention Assessment/Plan Hospital Course Patient's continues continues to have hematuria. 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 Continue to monitor. Dr. Ashford is following in urology consultation. -Anemia of acute bllod loss, transfuse PRN, monitor H&H. -UTI, continue abx per ID. Dr. Castellanos is following in infection disease consultation. -S/p Nose/oropharyngeal bleed on 06/11/2018, stopped after heparin was held. -Retroperitoneal bleed secondary to vascular injury status post stent placement. Monitor H and H. S/p eval by Dr. Kilpatrick, vascular surgery consultation. -Status post left heart catheterization with no significant obstructive coronary artery disease by Dr. Moreno on 05/27/2018. -Anemia of acute blood loss, status post blood transfusion, continue to monitor hemoglobin and hematocrit. -Urinary incontinence. -Acute illness myopathy -Status post mitral valve replacement with mechanical valve in 1999 in [place]. Continue Coumadin, monitor PT/INR. -HTN, continue metoprolol -Hyperlipidemia -Hypothyroidism, continue levothyroxine -History of asthma Further recommendations based on clinical course. Plan of care discussed with Dr. Painter. Result Diagram: 07/07/18 0547 07/05/18 0541 Results 24hrs Laboratory Tests Test 07/07/18 05:47 White Blood Count 5.0 Red Blood Count 2.86 L Hemoglobin 9.1 L Hematocrit 28.9 L Mean Corpuscular Volume 101.0 Mean Corpuscular Hemoglobin 31.8 Mean Corpuscular Hemoglobin Concent 31.5 L Red Cell Distribution Width 18.6 H Platelet Count 164 Mean Platelet Volume 9.9 Immature Granulocytes % 2.000 H Neutrophils % 63.6 Lymphocytes % 24.6 Monocytes % 7.0 Eosinophils % 2.4 Basophils % 0.4 Nucleated Red Blood Cells % 0.0 Immature Granulocytes # 0.100 H Neutrophils # 3.2 Lymphocytes # 1.2 Monocytes # 0.4 Eosinophils # 0.1 Basophils # 0.0 Nucleated Red Blood Cells # 0.0 Prothrombin Time 31.9 H Prothrombin Time Ratio 2.5 INR International Normalized Ratio 3.09 Exam/Review of Systems Exam Vitals Vital Signs Date Temp Pulse Resp B/P (MAP) Pulse Ox O2 O2 Flow FiO2 Time Delivery Rate 07/07/18 63 16:28 07/07/18 97.5 19 142/64 95 16:00 (90) 07/07/18 Room Air 04:00 Intake and Output 07/06/18 07/06/18 07/07/18 1515:00 23:00 07:00 IntakeIntake Total 800 ml 500 ml OutputOutput Total 600 ml 450 ml BalanceBalance 200 ml 50 ml Results Results 24hrs Laboratory Tests Test 07/07/18 05:47 White Blood Count 5.0 Red Blood Count 2.86 L Hemoglobin 9.1 L Hematocrit 28.9 L Mean Corpuscular Volume 101.0 Mean Corpuscular Hemoglobin 31.8 Mean Corpuscular Hemoglobin Concent 31.5 L Red Cell Distribution Width 18.6 H Platelet Count 164 Mean Platelet Volume 9.9 Immature Granulocytes % 2.000 H Neutrophils % 63.6 Lymphocytes % 24.6 Monocytes % 7.0 Eosinophils % 2.4 Basophils % 0.4 Nucleated Red Blood Cells % 0.0 Immature Granulocytes # 0.100 H Neutrophils # 3.2 Lymphocytes # 1.2 Monocytes # 0.4 Eosinophils # 0.1 Basophils # 0.0 Nucleated Red Blood Cells # 0.0 Prothrombin Time 31.9 H Prothrombin Time Ratio 2.5 INR International Normalized Ratio 3.09 Medications Medication Current Medications Levothyroxine Sodium (Synthroid) 50 mcg BEFORE BREAKFAST PO Last administered on 07/07/18 06:04; Admin Dose 50 MCG; Start 05/30/18 at 07:00 Mometasone Furoate (Asmanex) 1 puff DAILY INH Last administered on 07/07/18 08 :56; Admin Dose 1 PUFF; Start 05/29/18 at 11:00 Atorvastatin Calcium (Lipitor) 10 mg DAILY@21 PO Last administered on 07/06/18 19:57; Admin Dose 10 MG; Start 05/29/18 at 21:00 Latanoprost (Xalatan) 1 drop HS BOTH EYES Last administered on 07/06/18at 19:59; Admin Dose 1 DROP; Start 06/01/18 at 21:00 Amlodipine Besylate (Norvasc) 5 mg DAILY PO ; Start 06/03/18 at 09:00; Status Hold Pantoprazole (Protonix Tab) 40 mg DAILY@06 PO Last administered on 07/07/18at 06:04; Admin Dose 40 MG; Start 06/05/18 at 06:00 Metoclopramide HCl (Reglan) 5 mg TID PRN IV Nausea; Start 06/06/18 at 11:00 Polyethylene Glycol (Miralax) 17 gm BID PRN PO CONSTIPATION; Start 06/06/18 at 14:00 Bisacodyl (Dulcolax Supp) 10 mg DAILY PRN [place] CONSTIPATION; Start 06/06/18 at 14:00 IV Flush (NS 10 ml) 10 ml PRN PRN IV IV PROTOCOL; Start 06/06/18 at 16:00 Nystatin (Nystatin Susp) 5 ml QID PO Last administered on 07/07/18at 14:06; Admin Dose 5 ML; Start 06/06/18 at 17:00 Metoprolol Tartrate (Lopressor) 25 mg BID PO Last administered on 07/07/18at 08:57; Admin Dose 25 MG; Start 06/13/18 at 21:00 Metoprolol Tartrate (Lopressor) 5 mg Q4H PRN IV HR>110 Hold SBP<100; Start 06/13/18 at 10:30 Morphine Sulfate (morphine) 6 mg Q2H PRN PO FOR NON CARDIAC PAIN (4-10); Start 06/13/18 at 11:30 Docusate Sodium (Colace) 100 mg DAILY PRN PO CONSTIPATION; Start 06/21/18 at 12:00 Miscellaneous Information (Pending [facility] Order For Wound Care) This patient gomes... PRN PRN XX WOUND CARE; Start 06/21/18 at 16:00 Amiodarone HCl (Cordarone) 200 mg BID PO Last administered on 07/07/18at 08:57; Admin Dose 200 MG; Start 06/22/18 at 21:00 Miscellaneous Information (*Order Clarification Bulletin) MEDICATION REQUIRES CLARIFICATION:PLE... Q8H XX Last administered on 06/30/18at 12:00; Admin Dose 1 EA; Start 06/26/18 at 12:00 Bumetanide (Bumex) 0.5 mg DAILY@0600 PO Last administered on 07/02/18at 05:51; Admin Dose 0.5 MG; Start 07/02/18 at 06:00; Status Hold Warfarin Sodium (Coumadin) 5 mg DAILY@17 PO Last administered on 07/05/18at 16:58; Admin Dose 5 MG; Start 07/05/18 at 17:00; Status Hold Miscellaneous Information (* Miscellaneous Pharmacy Order) METOCLOPRAMIDE ORDER EXPIRES ON .. Q12H XX ; Start 07/06/18 at 12:30 KRISTY MCCULLOUGH Jul 07, 2018 17:13
--- NOTE | 2018-07-07 18:17 | CONS ---
Assessment/Plan Assessment/Plan Hospital Course (Demo Recall) IMP: 1.cad s/p LHC with no sig obstructive cad. Mildly depressed LVEF--40-45% ? nonischemic process 2.HTN 3.RP Bleed s/p transfusions now stable and tolerating heparin/coumadin loading. Then had recurrent bled overnight now s/p covered stent to CONSUMER SAFETY OFFICER/Ext iliac. Stable collection by abd CT 06/06 but still with pigtail catheter in place 4.HL 5.MVR-mechanical 6.anemia- s/p repair of R CONSUMER SAFETY OFFICER/illiac. Had hemoptysis with subsequent drop in Hgb again and holding of heparin. Had some mild blood tinged sputum 7.Hypothyroid 8. GOMES-negative Head CT 9. Fevers-with positive ua 10. UTI-recurrent by u/a 06/29 11.ARF-? 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 Coagulopathy-now therapeutic 14. LE weakness-? compression from hematoma and exacerbated by femoral compression after cath-now resolved 15. 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 PAF/AFL-rate controlled 17. 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 18. Epistaxis-improved 19. anemia-stable overall with possible mild downtrend today Recc: -Now on tele -Continue BB with well controlled Hr's -Continue statin -s/p course of abx's -ongoing ID f/u -F/U warehouse trainer/K closely with creatnine now normalized and volume status improved. -Follow HGb closely which has been stable to improved actually -PT/ambulation -Follow volume status closely now off of bumex -will continue amio bid for now in attempt to return patient to SR -Urology following with findings of apparent bladder fistula and thus draining of the hematoma through the bladder causing hematuria. Per urology thus ok to continue coumadin. Follow hematuria for resolution and assess need for spon taneous closure versus need for repair discussed with urology. Follow INR closely which is now supratherapeutic -Hold coumadin and follow INR but has downtrended Consultation Date/Type/Reason Admit Date/Time May 28, 2018 at 17:52 Initial Consult Date 05/28/18 Type of Consult Cardiology Reason for Consultation AF Requesting Provider: JULY VALENTIN MD Date/Time of Note DATE: 07/07/18 TIME: 18:15 Exam/Review of Systems Vital Signs Vitals Vital Signs Date Temp Pulse Resp B/P (MAP) Pulse Ox O2 O2 Flow FiO2 Time Delivery Rate 07/07/18 63 16:28 07/07/18 97.5 19 142/64 95 16:00 (90) 07/07/18 Room Air 04:00 Intake and Output 07/06/18 07/06/18 07/07/18 1515:00 23:00 07:00 IntakeIntake Total 800 ml 500 ml OutputOutput Total 600 ml 450 ml BalanceBalance 200 ml 50 ml Exam Exam Review of Systems: CONSTITUTIONAL: No fevers, chills. PULMONARY: No sob CARDIOVASCULAR: No chest pain/palpitations GASTROINTESTINAL: No nausea/vomiting. GENITOURINARY: No hematuria/dysuria. MUSCULOSKELETAL: No myagias/arthalgias. PSYCHIATRIC: The patient denies depression. NEUROLOGIC: No weakness Constitutional: alert Psych: no complaints Head: normocephalic ENMT: mucosa pink and moist Neck: supple, jvd (9 cm water) Respiratory: clear to auscultation Cardiovascular: regular rate and rhythm Gastrointestinal: soft, non-tender Musculoskeletal: muscle tone (normal) Extremities: edema (none) Neurological: other (No focal deficits) Labs Result Diagram: 07/07/18 0547 07/05/18 0541 Results 24hrs Laboratory Tests Test 07/07/18 05:47 White Blood Count 5.0 Red Blood Count 2.86 L Hemoglobin 9.1 L Hematocrit 28.9 L Mean Corpuscular Volume 101.0 Mean Corpuscular Hemoglobin 31.8 Mean Corpuscular Hemoglobin Concent 31.5 L Red Cell Distribution Width 18.6 H Platelet Count 164 Mean Platelet Volume 9.9 Immature Granulocytes % 2.000 H Neutrophils % 63.6 Lymphocytes % 24.6 Monocytes % 7.0 Eosinophils % 2.4 Basophils % 0.4 Nucleated Red Blood Cells % 0.0 Immature Granulocytes # 0.100 H Neutrophils # 3.2 Lymphocytes # 1.2 Monocytes # 0.4 Eosinophils # 0.1 Basophils # 0.0 Nucleated Red Blood Cells # 0.0 Prothrombin Time 31.9 H Prothrombin Time Ratio 2.5 INR International Normalized Ratio 3.09 Medications Medications Current Medications Levothyroxine Sodium (Synthroid) 50 mcg BEFORE BREAKFAST PO Last administered on 07/07/18 06:04; Admin Dose 50 MCG; Start 05/30/18 at 07:00 Mometasone Furoate (Asmanex) 1 puff DAILY INH Last administered on 07/07/18at 0 8:56; Admin Dose 1 PUFF; Start 05/29/18 at 11:00 Atorvastatin Calcium (Lipitor) 10 mg DAILY@21 PO Last administered on 07/06/18 19:57; Admin Dose 10 MG; Start 05/29/18 at 21:00 Latanoprost (Xalatan) 1 drop HS BOTH EYES Last administered on 07/06/18 19:59; Admin Dose 1 DROP; Start 06/01/18 at 21:00 Amlodipine Besylate (Norvasc) 5 mg DAILY PO ; Start 06/03/18 at 09:00; Status Hold Pantoprazole (Protonix Tab) 40 mg DAILY@06 PO Last administered on 07/07/18 06:04; Admin Dose 40 MG; Start 06/05/18 at 06:00 Metoclopramide HCl (Reglan) 5 mg TID PRN IV Nausea; Start 06/06/18 at 11:00 Polyethylene Glycol (Miralax) 17 gm BID PRN PO CONSTIPATION; Start 06/06/18 at 14:00 Bisacodyl (Dulcolax Supp) 10 mg DAILY PRN [place] CONSTIPATION; Start 06/06/18 at 14:00 IV Flush (NS 10 ml) 10 ml PRN PRN IV IV PROTOCOL; Start 06/06/18 at 16:00 Nystatin (Nystatin Susp) 5 ml QID PO Last administered on 07/07/18 17:19; Admin Dose 5 ML; Start 06/06/18 at 17:00 Metoprolol Tartrate (Lopressor) 25 mg BID PO Last administered on 07/07/18 08:57; Admin Dose 25 MG; Start 06/13/18 at 21:00 Metoprolol Tartrate (Lopressor) 5 mg Q4H PRN IV HR>110 Hold SBP<100; Start 06/13/18 at 10:30 Morphine Sulfate (morphine) 6 mg Q2H PRN PO FOR NON CARDIAC PAIN (4-10); Start 06/13/18 at 11:30 Docusate Sodium (Colace) 100 mg DAILY PRN PO CONSTIPATION; Start 06/21/18 at 12:00 Miscellaneous Information (Pending [facility] Order For Wound Care) This patient gomes... PRN PRN XX WOUND CARE; Start 06/21/18 at 16:00 Amiodarone HCl (Cordarone) 200 mg BID PO Last administered on 07/07/18at 08:57; Admin Dose 200 MG; Start 06/22/18 at 21:00 Miscellaneous Information (*Order Clarification Bulletin) MEDICATION REQUIRES CLARIFICATION:PLE... Q8H XX Last administered on 06/30/18at 12:00; Admin Dose 1 EA; Start 06/26/18 at 12:00 Bumetanide (Bumex) 0.5 mg DAILY@0600 PO Last administered on 07/02/18at 05:51; Admin Dose 0.5 MG; Start 07/02/18 at 06:00; Status Hold Warfarin Sodium (Coumadin) 5 mg DAILY@17 PO Last administered on 07/05/18at 16:58; Admin Dose 5 MG; Start 07/05/18 at 17:00; Status Hold Miscellaneous Information (* Miscellaneous Pharmacy Order) METOCLOPRAMIDE ORDER EXPIRES ON .. Q12H XX ; Start 07/06/18 at 12:30 CHRIS LAZAR Jul 07, 2018 18:17
--- NOTE | 2018-07-07 19:02 | CONS ---
Consult Date/Type/Reason Admit Date/Time May 28, 2018 at 17:52 Initial Consult Date 06/03/18 Type of Consultation: Urology Reason for Consultation Suprapubic hematoma with fistula to the bladder and hematuria Requesting Provider: JULY VALENTIN MD Date/Time of Note DATE: 07/07/18 TIME: 18:58 Subjective The patient is comfortable and has no pain. She has been ambulating with the help of physical therapy. She complains of a little numbness in her left foot and cannot flex it as she can on the right side. I was told that this has been there for a while and the physical therapy is working on it with her. Objective Vitals Vital Signs Date Temp Pulse Resp B/P (MAP) Pulse Ox O2 O2 Flow FiO2 Time Delivery Rate 07/07/18 63 16:28 07/07/18 97.5 19 142/64 95 16:00 (90) 07/07/18 Room Air 04:00 Intake and Output 07/06/18 07/06/18 07/07/18 1515:00 23:00 07:00 IntakeIntake Total 800 ml 500 ml OutputOutput Total 600 ml 450 ml BalanceBalance 200 ml 50 ml Exam The Mensah catheter is draining blood tinged urine. There are no blood clots. Results/Medications Result Diagram: 07/07/18 0547 07/05/18 0541 Results 24 hrs Laboratory Tests Test 07/07/18 05:47 White Blood Count 5.0 Red Blood Count 2.86 L Hemoglobin 9.1 L Hematocrit 28.9 L Mean Corpuscular Volume 101.0 Mean Corpuscular Hemoglobin 31.8 Mean Corpuscular Hemoglobin Concent 31.5 L Red Cell Distribution Width 18.6 H Platelet Count 164 Mean Platelet Volume 9.9 Immature Granulocytes % 2.000 H Neutrophils % 63.6 Lymphocytes % 24.6 Monocytes % 7.0 Eosinophils % 2.4 Basophils % 0.4 Nucleated Red Blood Cells % 0.0 Immature Granulocytes # 0.100 H Neutrophils # 3.2 Lymphocytes # 1.2 Monocytes # 0.4 Eosinophils # 0.1 Basophils # 0.0 Nucleated Red Blood Cells # 0.0 Prothrombin Time 31.9 H Prothrombin Time Ratio 2.5 INR International Normalized Ratio 3.09 Home Meds Reported Medications Albuterol Sulfate* (Ventolin HFA*) 18 Gm Hfa.aer.ad, 2 PUFF INHALATION Q4H, #1 INHALER 05/26/18 Ergocalciferol (Vitamin D2) (VITAMIN D2) 50,000 Unit Capsule, 06692 UNIT PO [id number], CAP 05/23/18 Warfarin Sodium* (Coumadin*) 5 Mg Tablet, 5 MG PO Q TUES,THUR,SAT, TAB 05/23/18 Warfarin Sodium* (Coumadin*) 4 Mg Tablet, 4 MG PO Q MON,WED,FRI,SUN, TAB 05/23/18 Furosemide* (Furosemide*) 20 Mg Tablet, 20 MG PO DAILY, #60 TAB TAKE Q 2 DAYS 05/23/18 Simvastatin* (Zocor*) 20 Mg Tablet, 20 MG PO QHS, #30 TAB 05/23/18 Ranitidine Hcl* (Ranitidine Hcl*) 150 Mg Tablet, 150 MG PO HS, #30 TAB 05/23/18 Acetaminophen (Mapap) 500 Mg Capsule, 500 MG PO BID PRN for PAIN, CAP 05/23/18 Levothyroxine Sodium* (Levothyroxine Sodium*) 50 Mcg Tablet, 50 MCG PO BEFORE BREAKFAST, #30 TAB 05/23/18 Spironolactone* (Aldactone*) 25 Mg Tablet, 25 MG PO DAILY, #30 TAB 05/23/18 Beclomethasone Dipropionate (Qvar Redihaler (40 MCG)) 10.6 Gm Hfa.aeroba, 10.6 GM IH DAILY, INH 05/23/18 Amlodipine Besylate* (Norvasc*) 5 Mg Tablet, 5 MG PO BID, TAB 05/23/18 Losartan-Hydrochlorothiazide (Losartan-HCTZ) 100-25 Mg Tab, 1 TAB PO DAILY, TAB 05/23/18 Medications Current Medications Levothyroxine Sodium (Synthroid) 50 mcg BEFORE BREAKFAST PO Last administered on 07/07/18at 06:04; Admin Dose 50 MCG; Start 05/30/18 at 07:00 Mometasone Furoate (Asmanex) 1 puff DAILY INH Last administered on 07/07/18at 08:56; Admin Dose 1 PUFF; Start 05/29/18 at 11:00 Atorvastatin Calcium (Lipitor) 10 mg DAILY@21 PO Last administered on 07/06/18at 19:57; Admin Dose 10 MG; Start 05/29/18 at 21:00 Latanoprost (Xalatan) 1 drop HS BOTH EYES Last administered on 07/06/18at 19:59; Admin Dose 1 DROP; Start 06/01/18 at 21:00 Amlodipine Besylate (Norvasc) 5 mg DAILY PO ; Start 06/03/18 at 09:00; Status Hold Pantoprazole (Protonix Tab) 40 mg DAILY@06 PO Last administered on 07/07/18at 06:04; Admin Dose 40 MG; Start 06/05/18 at 06:00 Metoclopramide HCl (Reglan) 5 mg TID PRN IV Nausea; Start 06/06/18 at 11:00 Polyethylene Glycol (Miralax) 17 gm BID PRN PO CONSTIPATION; Start 06/06/18 at 14:00 Bisacodyl (Dulcolax Supp) 10 mg DAILY PRN [place] CONSTIPATION; Start 06/06/18 at 14:00 IV Flush (NS 10 ml) 10 ml PRN PRN IV IV PROTOCOL; Start 06/06/18 at 16:00 Nystatin (Nystatin Susp) 5 ml QID PO Last administered on 07/07/18at 17:19; Admin Dose 5 ML; Start 06/06/18 at 17:00 Metoprolol Tartrate (Lopressor) 25 mg BID PO Last administered on 07/07/18at 08:57; Admin Dose 25 MG; Start 06/13/18 at 21:00 Metoprolol Tartrate (Lopressor) 5 mg Q4H PRN IV HR>110 Hold SBP<100; Start 06/13/18 at 10:30 Morphine Sulfate (morphine) 6 mg Q2H PRN PO FOR NON CARDIAC PAIN (4-10); Start 06/13/18 at 11:30 Docusate Sodium (Colace) 100 mg DAILY PRN PO CONSTIPATION; Start 06/21/18 at 12:00 Miscellaneous Information (Pending [facility] Order For Wound Care) This patient gomes... PRN PRN XX WOUND CARE; Start 06/21/18 at 16:00 Amiodarone HCl (Cordarone) 200 mg BID PO Last administered on 07/07/18at 08:57; Admin Dose 200 MG; Start 06/22/18 at 21:00 Miscellaneous Information (*Order Clarification Bulletin) MEDICATION REQUIRES CLARIFICATION:PLE... Q8H XX Last administered on 06/30/18at 12:00; Admin Dose 1 EA; Start 06/26/18 at 12:00 Bumetanide (Bumex) 0.5 mg DAILY@0600 PO Last administered on 07/02/18at 05:51; Admin Dose 0.5 MG; Start 07/02/18 at 06:00; Status Hold Warfarin Sodium (Coumadin) 5 mg DAILY@17 PO Last administered on 07/05/18at 1 6:58; Admin Dose 5 MG; Start 07/05/18 at 17:00; Status Hold Miscellaneous Information (* Miscellaneous Pharmacy Order) METOCLOPRAMIDE ORDER EXPIRES ON .. Q12H XX ; Start 07/06/18 at 12:30 Assessment/Plan Hospital Course (Demo Recall) 62-year-old female underwent coronary angiogram. 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 I did insert the catheter for her and she was anuric. Since then she has improved and has been making urine and the urine was clear however today her urine was bloody. We checked her postvoid residual and she had only 175 mL. Urine was sent for culture and sensitivity. Her last urine culture was no growth after 48 hours. The patient has been having hematuria for the past 2 days and today as she is to drop to have the physical therapy a lot of blood came out. I ordered CT scan of the abdomen and pelvis to see if the hematoma has fistulized into the bladder. She underwent a CT scan and that was reported: 1. Compared to the previous exam of 06/06/2018, the previously seen right lower quadrant pigtail catheter has been removed and the chronic hemoperitoneum or pelvic hematoma has decreased in volume now estimated at 1033 cc compared to all 1260 cc with evolution of the blood products, the attenuation decreasing from 72 HU to 45 HU. Continued surveillance is recommended with follow-up CT as determined clinically. 2. Atrophic uterus without endometrial thickening or other findings to explain the patient's provided history of vaginal bleeding. 3. Post thoracotomy changes with marked cardiomegaly, mitral valve prosthesis, left ventricular apex calcification and increased bibasilar subsegmental atelectasis. 4. Nodular contour to the liver consistent with cirrhosis is again noted. 5. Cholelithiasis without evidence for cholecystitis. 6. Stable mild splenomegaly. 7. Tiny left intrarenal calculus without hydronephrosis. 8. Contracted urinary bladder is difficult to evaluate. 9. Resolved small bowel wall thickening, enteric contrast media within the colon with diverticular disease but no diverticulitis. 10. Resolved anasarca pattern of the subcutaneous tissues I did call the radiologist who read the CT scan and discussed with him the clinical reasons I requested the CT scan and the suspicion that I had for a fistula. He did review the CT while I was talking with him and added an amendment to the report that says: AMENDMENT: 07/01/2018 7:59:21 PM Anjum Magallon D.o A telephone conversation takes place with the patient's urologist, Dr. Godwin, at 19:50 and he kindly provides additional history of sudden onset of hematuria upon standing. Upon further review of the images, there is loss of the normal fat plane between the pelvic hematoma with the anterior dome of the urinary bladder which cannot exclude the possibility of a fistula between the hematoma and a bladder that would explain the patients hematuria. There is preservation of the fat plane between the hematoma and the middle and inferior portion of the anterior urinary bladder. There is no evidence of loss of fat plane between the hematoma and vagina to suggest a fistula in this location. It is discussed that the patient would likely benefit from further evaluation with a CT cystogram performed in the prone position to limit the amount of contrast to opacify the potential fistula. 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 The bleeding in her urine is coming from that hematoma. I did show her son the pictures and explained to him that if the hematoma drains through the bladder we just have to keep the Mensah catheter in and wait for it to drain completely and then the bladder hopefully will heal by itself and if it does not we could always do surgery and close it. At the present the Mensah catheter continues to drain dark blood mixed with urine. The suprapubic hematoma is smaller in size. The urine culture grew: URINE CULTURE Final Organism 1 HAFNIA ALVEI COLONY COUNT >100,000 CFU/ml Organism 2 MIXED GRAM POSITIVE ORGANISMS COLONY COUNT >100,000 CFU/ml HAF ALVEI HAF ALVEI M.I.C. RX M.I.C. RX --------- --- --------- --- AMPICILLIN R AMPICILLIN/SULBACTAM >=32 R CEFAZOLIN R CEFOTAXIME S CIPROFLOXACIN <=0.25 S GENTAMICIN <=1 S LEVOFLOXACIN <=0.12 S MEROPENEM 0.064 S NITROFURANTOIN <=16 S TOBRAMYCIN <=1 S TRIMETHOPRIM/SULFAMETHOXAZOLE <=20 S The patient is on Zosyn. Patient is comfortable and she has no pain. The abdomen is softer and the suprapubic mass is smaller. The suprapubic hematoma is getting smaller and the bladder urine is blood-tinged from the hematoma that is draining into it. For now continue the same: Keep the Mensah catheter in place, continue the antibiotics. Patient also was restarted on Coumadin and that was put on hold now because of supra therapeutic INR. I discussed her condition with her son who was at her bedside. Also discussed it with JOAQUIN Dunham MD Jul 07, 2018 19:02
--- NOTE | 2018-07-07 19:41 | PN ---
Date/Time of Note Date/Time of Note DATE: 07/07/18 TIME: 19:36 Assessment/Plan VTE Prophylaxis Risk score (from Ns)>0 risk: 4 SCD applied (from [facility] [place] No SCD contraindicated: patient refusal Pharmacological prophylaxis: warfarin tx Lines/Catheters IV Catheter Type (from [facility] PICC Line Central line still needed: Yes Urinary Cath still in place: Yes Reason Cath still needed: urinary retention Assessment/Plan Hospital Course Patient continues to have hematuria, stable HGB, INR is 3.09, Coumadin is on hold. 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 Continue Mensah, monitor. Dr. Ashford is following in urology consultation. -Anemia of acute blood loss, transfuse PRN, monitor H&H. -S/p UTI, completed treatment with Zosyn. Dr. Castellanos is following in infection disease consultation. -Liver cirrhosis per CT, Dr Cruz is following in GI consultation. -S/p Nose/oropharyngeal bleed on 06/11/2018, stopped after heparin was held. -Retroperitoneal bleed secondary to vascular injury status post stent placement. Monitor H and H. S/p eval by Dr. Kilpatrick, vascular surgery consultation. -Status post left heart catheterization with no significant obstructive coronary artery disease by Dr. Moreno on 05/27/2018. -Anemia of acute blood loss, status post blood transfusion, continue to monitor hemoglobin and hematocrit. -Urinary incontinence. -Acute illness myopathy -Status post mitral valve replacement with mechanical valve in 1999 in [facility]. Continue Coumadin, monitor PT/INR. -HTN, continue metoprolol -Hyperlipidemia -Hypothyroidism, continue levothyroxine -History of asthma Further recommendations based on clinical course. Plan of care discussed with Dr. Painter. Result Diagram: 07/07/18 0547 07/05/18 0541 Results 24hrs Laboratory Tests Test 07/07/18 05:47 White Blood Count 5.0 Red Blood Count 2.86 L Hemoglobin 9.1 L Hematocrit 28.9 L Mean Corpuscular Volume 101.0 Mean Corpuscular Hemoglobin 31.8 Mean Corpuscular Hemoglobin Concent 31.5 L Red Cell Distribution Width 18.6 H Platelet Count 164 Mean Platelet Volume 9.9 Immature Granulocytes % 2.000 H Neutrophils % 63.6 Lymphocytes % 24.6 Monocytes % 7.0 Eosinophils % 2.4 Basophils % 0.4 Nucleated Red Blood Cells % 0.0 Immature Granulocytes # 0.100 H Neutrophils # 3.2 Lymphocytes # 1.2 Monocytes # 0.4 Eosinophils # 0.1 Basophils # 0.0 Nucleated Red Blood Cells # 0.0 Prothrombin Time 31.9 H Prothrombin Time Ratio 2.5 INR International Normalized Ratio 3.09 Exam/Review of Systems Exam Vitals Vital Signs Date Temp Pulse Resp B/P (MAP) Pulse Ox O2 O2 Flow FiO2 Time Delivery Rate 07/07/18 63 16:28 07/07/18 97.5 19 142/64 95 16:00 (90) 07/07/18 Room Air 04:00 Intake and Output 07/06/18 07/06/18 07/07/18 1515:00 23:00 07:00 IntakeIntake Total 800 ml 500 ml OutputOutput Total 600 ml 450 ml BalanceBalance 200 ml 50 ml Exam Constitutional: alert, oriented Respiratory: clear to auscultation Cardiovascular: irregular rhythm Gastrointestinal: soft, non-tender Genitourinary - Female: other (Mensah ) Extremities: normal pulses Skin: nl turgor Results Results 24hrs Laboratory Tests Test 07/07/18 05:47 White Blood Count 5.0 Red Blood Count 2.86 L Hemoglobin 9.1 L Hematocrit 28.9 L Mean Corpuscular Volume 101.0 Mean Corpuscular Hemoglobin 31.8 Mean Corpuscular Hemoglobin Concent 31.5 L Red Cell Distribution Width 18.6 H Platelet Count 164 Mean Platelet Volume 9.9 Immature Granulocytes % 2.000 H Neutrophils % 63.6 Lymphocytes % 24.6 Monocytes % 7.0 Eosinophils % 2.4 Basophils % 0.4 Nucleated Red Blood Cells % 0.0 Immature Granulocytes # 0.100 H Neutrophils # 3.2 Lymphocytes # 1.2 Monocytes # 0.4 Eosinophils # 0.1 Basophils # 0.0 Nucleated Red Blood Cells # 0.0 Prothrombin Time 31.9 H Prothrombin Time Ratio 2.5 INR International Normalized Ratio 3.09 Medications Medication Current Medications Levothyroxine Sodium (Synthroid) 50 mcg BEFORE BREAKFAST PO Last administered on 07/07/18at 06:04; Admin Dose 50 MCG; Start 05/30/18 at 07:00 Mometasone Furoate (Asmanex) 1 puff DAILY INH Last administered on 07/07/18at 08:56; Admin Dose 1 PUFF; Start 05/29/18 at 11:00 Atorvastatin Calcium (Lipitor) 10 mg DAILY@21 PO Last administered on 07/06/18at 19:57; Admin Dose 10 MG; Start 05/29/18 at 21:00 Latanoprost (Xalatan) 1 drop HS BOTH EYES Last administered on 07/06/18 19:59; Admin Dose 1 DROP; Start 06/01/18 at 21:00 Amlodipine Besylate (Norvasc) 5 mg DAILY PO ; Start 06/03/18 at 09:00; Status Hold Pantoprazole (Protonix Tab) 40 mg DAILY@06 PO Last administered on 07/07/18at 06:04; Admin Dose 40 MG; Start 06/05/18 at 06:00 Metoclopramide HCl (Reglan) 5 mg TID PRN IV Nausea; Start 06/06/18 at 11:00 Polyethylene Glycol (Miralax) 17 gm BID PRN PO CONSTIPATION; Start 06/06/18 at 14:00 Bisacodyl (Dulcolax Supp) 10 mg DAILY PRN [place] CONSTIPATION; Start 06/06/18 at 14:00 IV Flush (NS 10 ml) 10 ml PRN PRN IV IV PROTOCOL; Start 06/06/18 at 16:00 Nystatin (Nystatin Susp) 5 ml QID PO Last administered on 07/07/18at 17:19; Admin Dose 5 ML; Start 06/06/18 at 17:00 Metoprolol Tartrate (Lopressor) 25 mg BID PO Last administered on 07/07/18at 08:57; Admin Dose 25 MG; Start 06/13/18 at 21:00 Metoprolol Tartrate (Lopressor) 5 mg Q4H PRN IV HR>110 Hold SBP<100; Start 06/13/18 at 10:30 Morphine Sulfate (morphine) 6 mg Q2H PRN PO FOR NON CARDIAC PAIN (4-10); Start 06/13/18 at 11:30 Docusate Sodium (Colace) 100 mg DAILY PRN PO CONSTIPATION; Start 06/21/18 at 12:00 Miscellaneous Information (Pending [facility] Order For Wound Care) This patient gomes... PRN PRN XX WOUND CARE; Start 06/21/18 at 16:00 Amiodarone HCl (Cordarone) 200 mg BID PO Last administered on 07/07/18 08:57; Admin Dose 200 MG; Start 06/22/18 at 21:00 Miscellaneous Information (*Order Clarification Bulletin) MEDICATION REQUIRES CLARIFICATION:PLE... Q8H XX Last administered on 06/30/18 12:00; Admin Dose 1 EA; Start 06/26/18 at 12:00 Bumetanide (Bumex) 0.5 mg DAILY@0600 PO Last administered on 07/02/18 05:51; Admin Dose 0.5 MG; Start 07/02/18 at 06:00; Status Hold Warfarin Sodium (Coumadin) 5 mg DAILY@17 PO Last administered on 07/05/18 16:58; Admin Dose 5 MG; Start 07/05/18 at 17:00; Status Hold Miscellaneous Information (* Miscellaneous Pharmacy Order) METOCLOPRAMIDE ORDER EXPIRES ON .. Q12H XX ; Start 07/06/18 at 12:30 KRISTY MCCULLOUGH Jul 07, 2018 19:41
--- NOTE | 2018-07-07 20:28 | CONS ---
[facility] HCIS Consult Follow-up Patient Name: Quyen Sexton Unit Number: [id number] Date of : 1955 Patient Status: Admitted Inpatient Attending Doctor: July Valentin MD Edit: SHARI MOLINA M.D. on 07/08/18 @ 13:14 Jesse: I discussed the management with JULIEN Jaramillo and agree with above Assessment/Plan Assessment/Plan Hospital Course (Demo Recall) # sepsis, cardiopulmonary - s/p severe sepsis due to UTI, resolved - s/p SIRS due to acute blood loss, resolved - s/p L heart catheterization on 05/27/2018 showing no significant obstructive CAD - CAD - s/p CABG in [facility] in 1982 - H/o MVR with mechanical valve, in 1999 - Hypertension - PAF - Asthma # urology/renal, GI - hematuria caused by ruptured urinary bladder - CT abd pelvis on 07/02/18 showed large extravasation of contrast administered through a F/c into the large anterior pelvic fluid collection is demonstrated, consistent with bladder rupture. no contrast seen within the vagina to suggest fistulization with the overlying urinary bladder. - UTI due to hafnai alvei and pediococci on 06/30/18. Pt completed pip/tazo (07/02/18-07/05/2018) - S/p UTI due to E. coli. 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 Molina Consultation Date/Type/Reason Admit Date/Time May 28, 2018 at 17:52 Initial Consult Date 06/02/18 Type of Consult Infectious Disease Requesting Provider: JULY VALENTIN MD Date/Time of Note DATE: 07/07/18 TIME: 20:25 24 HR Interval Summary Free Text/Dictation Pt denies any pain or SOB. Chart reviewed. Still with hematuria. Exam/Review of Systems Exam Vitals Vital Signs Date Temp Pulse Resp B/P (MAP) Pulse Ox O2 O2 Flow FiO2 Time Delivery Rate 07/07/18 98.1 63 18 122/60 95 19:51 (80) 07/07/18 Room Air 04:00 Intake and Output 07/06/18 07/06/18 07/07/18 1515:00 23:00 07:00 IntakeIntake Total 800 ml 500 ml OutputOutput Total 600 ml 450 ml BalanceBalance 200 ml 50 ml Exam Constitutional: alert, oriented, well developed, other (lying in bed in no acute distress; Spouse at bedside) Psych: no complaints, nl mood/affect, other (smiling) Head: normocephalic, atraumatic Eyes: nl conjunctiva, nl lids, nl sclera ENMT: nl external ears & nose, nl nasal mucosa & septum, mucosa pink and moist Neck: supple, non-tender (not swollen) Respiratory: clear to auscultation, normal air movement Cardiovascular: regular rate and rhythm, nl pulses Gastrointestinal: soft, tender (mild TTP to RLQ and LLQ with no guarding or rebound tenderness) Genitourinary - Female: other ([place] with hematuria but no clots) Musculoskeletal: nl extremities to inspection Extremities: normal pulses, edema 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, nl mental status, nl speech Skin: nl turgor, ecchymosis (scattered); No rash or lesions Results Result Diagram: 3/28/19 0547 07/05/18 0541 Results 24hrs Laboratory Tests Test 07/07/18 05:47 White Blood Count 5.0 Red Blood Count 2.86 L Hemoglobin 9.1 L Hematocrit 28.9 L Mean Corpuscular Volume 101.0 Mean Corpuscular Hemoglobin 31.8 Mean Corpuscular Hemoglobin Concent 31.5 L Red Cell Distribution Width 18.6 H Platelet Count 164 Mean Platelet Volume 9.9 Immature Granulocytes % 2.000 H Neutrophils % 63.6 Lymphocytes % 24.6 Monocytes % 7.0 Eosinophils % 2.4 Basophils % 0.4 Nucleated Red Blood Cells % 0.0 Immature Granulocytes # 0.100 H Neutrophils # 3.2 Lymphocytes # 1.2 Monocytes # 0.4 Eosinophils # 0.1 Basophils # 0.0 Nucleated Red Blood Cells # 0.0 Prothrombin Time 31.9 H Prothrombin Time Ratio 2.5 INR International Normalized Ratio 3.09 Medications Medication Current Medications Levothyroxine Sodium (Synthroid) 50 mcg BEFORE BREAKFAST PO Last administered on 07/07/18at 06:04; Admin Dose 50 MCG; Start 05/30/18 at 07:00 Mometasone Furoate (Asmanex) 1 puff DAILY INH Last administered on 07/07/18 08:56; Admin Dose 1 PUFF; Start 05/29/18 at 11:00 Atorvastatin Calcium (Lipitor) 10 mg DAILY@21 PO Last administered on 07/06/18 19:57; Admin Dose 10 MG; Start 05/29/18 at 21:00 Latanoprost (Xalatan) 1 drop HS BOTH EYES Last administered on 07/06/18 19:59; Admin Dose 1 DROP; Start 06/01/18 at 21:00 Amlodipine Besylate (Norvasc) 5 mg DAILY PO ; Start 06/03/18 at 09:00; Status Hold Pantoprazole (Protonix Tab) 40 mg DAILY@06 PO Last administered on 07/07/18at 06:04; Admin Dose 40 MG; Start 06/05/18 at 06:00 Metoclopramide HCl (Reglan) 5 mg TID PRN IV Nausea; Start 06/06/18 at 11:00 Polyethylene Glycol (Miralax) 17 gm BID PRN PO CONSTIPATION; Start 06/06/18 at 14:00 Bisacodyl (Dulcolax Supp) 10 mg DAILY PRN [place] CONSTIPATION; Start 06/06/18 at 14:00 IV Flush (NS 10 ml) 10 ml PRN PRN IV IV PROTOCOL; Start 06/06/18 at 16:00 Nystatin (Nystatin Susp) 5 ml QID PO Last administered on 07/07/18 17:19; Admin Dose 5 ML; Start 06/06/18 at 17:00 Metoprolol Tartrate (Lopressor) 25 mg BID PO Last administered on 07/07/18at 08:57; Admin Dose 25 MG; Start 06/13/18 at 21:00 Metoprolol Tartrate (Lopressor) 5 mg Q4H PRN IV HR>110 Hold SBP<100; Start 06/13/18 at 10:30 Morphine Sulfate (morphine) 6 mg Q2H PRN PO FOR NON CARDIAC PAIN (4-10); Start 06/13/18 at 11:30 Docusate Sodium (Colace) 100 mg DAILY PRN PO CONSTIPATION; Start 06/21/18 at 12:00 Miscellaneous Information (Pending [facility] Order For Wound Care) This patient gomes... PRN PRN XX WOUND CARE; Start 06/21/18 at 16:00 Amiodarone HCl (Cordarone) 200 mg BID PO Last administered on 07/07/18at 08:57; Admin Dose 200 MG; Start 06/22/18 at 21:00 Miscellaneous Information (*Order Clarification Bulletin) MEDICATION REQUIRES CLARIFICATION:PLE... Q8H XX Last administered on 06/30/18at 12:00; Admin Dose 1 EA; Start 06/26/18 at 12:00 Bumetanide (Bumex) 0.5 mg DAILY@0600 PO Last administered on 07/02/18at 05:51; Admin Dose 0.5 MG; Start 07/02/18 at 06:00; Status Hold Warfarin Sodium (Coumadin) 5 mg DAILY@17 PO Last administered on 07/05/18at 16 :58; Admin Dose 5 MG; Start 07/05/18 at 17:00; Status Hold Miscellaneous Information (* Miscellaneous Pharmacy Order) METOCLOPRAMIDE ORDER EXPIRES ON ... Q12H XX ; Start 07/06/18 at 12:30 KISHORE JARAMILLO NP Jul 07, 2018 20:28
[2018-07-07] MEDS: ATORVASTATIN 10 MG TAB PO SCH (21:13)
[2018-07-07] MEDS: LATANOPROST 0.005% 2.5 ML OPH BOTH EYES SCH (21:14)
[2018-07-08] VITALS (11 sets, daily range): BP systolic 110–137; BP diastolic 57–70; PULSE 58–92; RESP 18–19
[2018-07-08] MEDS: [UNRECOGNIZED DRUG - OTHER] XX SCH ×2 (00:30→12:30)
[2018-07-08] MEDS: LEVOTHYROXINE 50 MCG TAB PO SCH (06:42)
[2018-07-08] MEDS: PANTOPRAZOLE (EC) 40 MG TAB PO SCH (06:42)
[2018-07-08] MEDS: MOMETASONE 0.24 GM INHALER INH SCH (08:48)
[2018-07-08] MEDS: NYSTATIN SUSP 5 ML CUP PO SCH ×4 (08:48→21:40)
[2018-07-08] MEDS: AMIODARONE 200 MG TAB PO SCH ×2 (08:49→21:39)
[2018-07-08] MEDS: METOPROLOL 25 MG TAB PO SCH ×2 (08:49→21:40)
--- NOTE | 2018-07-08 09:15 | PN ---
DATE: 07/08/2018 SUBJECTIVE: The patient continues to have ongoing hematuria. The patient is also complaining of abo ut increased lower extremity swelling. No other events noted, hemoptysis, hematemesis or hematochezi a. OBJECTIVE: VITAL SIGNS: Blood pressure is 110/70, respirations 19, pulse 69, temperature 98.0. HEENT: Head is normocephalic. NECK: Supple. HEART: Regular rate. LUNGS: Show diminished breath sounds at the base. ABDOMEN: Soft, nontender to palpation without rebound or guarding. EXTREMITIES: Negative for clubbing, cyanosis. Positive edema. DERMATOLOGIC: No rashes. MUSCULOSKELETAL: No joint effusion. NEUROLOGIC: No change in exam. MEDICATIONS: Reviewed. LABORATORY DATA: From 07/08/2018 is pending. ASSESSMENT AND PLAN: 1. Nonoliguric acute kidney injury with previously normal baseline creatinine. Etiology of acute ki dney injury is secondary to acute tubular necrosis. Renal function is improved. Continue current tr eatment plans, supportive care, renally dose all medicines. 2. Hematuria. 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 Continue to monitor. Follow up with urology. The patient continues to have ongoing hematuria. 3. Volume overload. The patient has noted increased lower extremity edema. We will up titrate Bume x to 1 mg p.o. daily. Monitor volume status closely. 4. Hypokalemia. Continue to monitor and replete as needed. 5. Anemia. Continue to monitor hemoglobin and hematocrit levels. 6. Mechanical heart valve. Continue anticoagulation per cardiology. 7. Sepsis secondary to urinary tract infection. The patient is completing antibiotic course. 8. Hypothyroidism. Continue Synthroid. 9. Dyslipidemia. Continue statin therapy. 10. Hypertension. Continue current blood pressure regimen. 11. Intraabdominal hematoma. Continue to monitor. 12. Urinary tract infection. The patient is completing antibiotic course. Follow up with Infectiou s Disease. 13. Liver cirrhosis. The patient is currently on diuretic therapy adjusted as above. Continue to m onitor. Dictated By: GWYN FABIAN DO NR/NTS Conf#: [id number] DID#: [id number] CC: JOAQUIN DE LEON MD; JULY VALENTIN MD; CHRIS LAZAR MD;*EndCC*
--- NOTE | 2018-07-08 13:15 | CONS ---
Assessment/Plan Assessment/Plan Hospital Course (Demo Recall) # sepsis, cardiopulmonary - s/p severe sepsis due to UTI, resolved - s/p SIRS due to acute blood loss, resolved - s/p L heart catheterization on 05/27/2018 showing no significant obstructive CAD - CAD - s/p CABG in [facility] in 1982 - H/o MVR with mechanical valve, in 1999 - Hypertension - PAF - Asthma # urology/renal, GI - hematuria caused by ruptured urinary bladder - CT abd pelvis on 07/02/18 showed large extravasation of contrast administered through a F/c into the large anterior pelvic fluid collection is demonstrated, consistent with bladder rupture. no contrast seen within the vagina to suggest fistulization with the overlying urinary bladder. - UTI due to hafnai alvei and pediococci on 06/30/18. Pt completed pip/tazo (07/02/18-07/05/2018) - S/p UTI due to E. coli. 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 Consultation Date/Type/Reason Admit Date/Time May 28, 2018 at 17:52 Initial Consult Date 06/03/18 Type of Consult ID Requesting Provider: JULY VALENTIN MD Date/Time of Note DATE: 07/08/18 TIME: 13:15 Exam/Review of Systems Exam Vitals Vital Signs Date Temp Pulse Resp B/P (MAP) Pulse Ox O2 O2 Flow FiO2 Time Delivery Rate 07/08/18 98.0 63 19 128/60 92 11:24 (82) 07/07/18 Room Air 04:00 Intake and Output 07/07/18 07/07/18 07/08/18 1515:00 23:00 07:00 IntakeIntake Total 820 ml 360 ml OutputOutput Total 700 ml 600 ml BalanceBalance 120 ml -240 ml Results Result Diagram: 07/08/18 0640 07/05/18 0541 Results 24hrs Laboratory Tests Test 07/08/18 06:40 07/08/18 06:41 White Blood Count 4.7 L Red Blood Count 2.92 L Hemoglobin 9.2 L Hematocrit 29.4 L Mean Corpuscular Volume 100.7 Mean Corpuscular Hemoglobin 31.5 Mean Corpuscular Hemoglobin Concent 31.3 L Red Cell Distribution Width 18.6 H Platelet Count 166 Mean Platelet Volume 9.8 Immature Granulocytes % 1.700 H Neutrophils % 63.0 Lymphocytes % 25.2 Monocytes % 7.2 Eosinophils % 2.3 Basophils % 0.6 Nucleated Red Blood Cells % 0.0 Immature Granulocytes # 0.080 H Neutrophils # 3.0 Lymphocytes # 1.2 Monocytes # 0.3 Eosinophils # 0.1 Basophils # 0.0 Nucleated Red Blood Cells # 0.0 Prothrombin Time 24.6 #H Prothrombin Time Ratio 1.9 INR International Normalized Ratio 2.21 Hepatitis B Surface Antigen NEGATIVE Hepatitis B Core Total Antibody NEGATIVE Hepatitis C Antibody NEGATIVE Medications Medication Current Medications Levothyroxine Sodium (Synthroid) 50 mcg BEFORE BREAKFAST PO Last administered on 07/08/18at 06:42; Admin Dose 50 MCG; Start 05/30/18 at 07:00 Mometasone Furoate (Asmanex) 1 puff DAILY INH Last administered on 07/08/18at 08:48; Admin Dose 1 PUFF; Start 05/29/18 at 11:00 Atorvastatin Calcium (Lipitor) 10 mg DAILY@21 PO Last administered on 07/07/18at 21:13; Admin Dose 10 MG; Start 05/29/18 at 21:00 Latanoprost (Xalatan) 1 drop HS BOTH EYES Last administered on 07/07/18at 21:14; Admin Dose 1 DROP; Start 06/01/18 at 21:00 Amlodipine Besylate (Norvasc) 5 mg DAILY PO ; Start 06/03/18 at 09:00; Status Hold Pantoprazole (Protonix Tab) 40 mg DAILY@06 PO Last administered on 07/08/18at 06:42; Admin Dose 40 MG; Start 06/05/18 at 06:00 Metoclopramide HCl (Reglan) 5 mg TID PRN IV Nausea; Start 06/06/18 at 11:00 Polyethylene Glycol (Miralax) 17 gm BID PRN PO CONSTIPATION; Start 06/06/18 at 14:00 Bisacodyl (Dulcolax Supp) 10 mg DAILY PRN [place] CONSTIPATION; Start 06/06/18 at 14:00 IV Flush (NS 10 ml) 10 ml PRN PRN IV IV PROTOCOL; Start 06/06/18 at 16:00 Nystatin (Nystatin Susp) 5 ml QID PO Last administered on 07/08/18at 12:38; Admin Dose 5 ML; Start 06/06/18 at 17:00 Metoprolol Tartrate (Lopressor) 25 mg BID PO Last administered on 07/08/18at 08:49; Admin Dose 25 MG; Start 06/13/18 at 21:00 Metoprolol Tartrate (Lopressor) 5 mg Q4H PRN IV HR>110 Hold SBP<100; Start 06/13/18 at 10:30 Morphine Sulfate (morphine) 6 mg Q2H PRN PO FOR NON CARDIAC PAIN (4-10); Start 06/13/18 at 11:30 Docusate Sodium (Colace) 100 mg DAILY PRN PO CONSTIPATION; Start 06/21/18 at 12:00 Miscellaneous Information (Pending [facility] Order For Wound Care) This patient gomes... PRN PRN XX WOUND CARE; Start 06/21/18 at 16:00 Amiodarone HCl (Cordarone) 200 mg BID PO Last administered on 07/08/18at 08:49; Admin Dose 200 MG; Start 06/22/18 at 21:00 Miscellaneous Information (*Order Clarification Bulletin) MEDICATION REQUIRES CLARIFICATION:PLE... Q8H XX Last administered on 06/30/18at 12:00; Admin Dose 1 EA; Start 06/26/18 at 12:00 Warfarin Sodium (Coumadin) 5 mg DAILY@17 PO Last administered on 07/05/18at 16:58; Admin Dose 5 MG; Start 07/05/18 at 17:00 Miscellaneous Information (* Miscellaneous Pharmacy Order) METOCLOPRAMIDE ORDER EXPIRES ON . Q12H XX ; Start 07/06/18 at 12:30 Bumetanide (Bumex) 1 mg DAILY@0600 PO ; Start 07/09/18 at 06:00 SHARI CROWELL M.D. Jul 08, 2018 13:15
--- NOTE | 2018-07-08 14:34 | CONS ---
Assessment/Plan Assessment/Plan Hospital Course (Demo Recall) # sepsis, cardiopulmonary - s/p severe sepsis due to UTI, resolved - s/p SIRS due to acute blood loss, resolved - s/p L heart catheterization on 05/27/2018 showing no significant obstructive CAD - CAD - s/p CABG in [facility] in 1982 - H/o MVR with mechanical valve, in 1999 - Hypertension - PAF - Asthma # urology/renal, GI - hematuria caused by ruptured urinary bladder - CT abd pelvis on 07/02/18 showed large extravasation of contrast administered through a F/c into the large anterior pelvic fluid collection is demonstrated, consistent with bladder rupture. no contrast seen within the vagina to suggest fistulization with the overlying urinary bladder. - UTI due to hafnai alvei and pediococci on 06/30/18. Pt completed pip/tazo (07/02/18-07/05/2018) - S/p UTI due to E. coli. 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 Consultation Date/Type/Reason Admit Date/Time May 28, 2018 at 17:52 Initial Consult Date 06/03/18 Type of Consult ID Requesting Provider: JULY VALENTIN MD Date/Time of Note DATE: 07/08/18 TIME: 14:32 24 HR Interval Summary Constitutional: no complaints, other (walked twice) Detailed Summary Eyes: no complaints ENT: no complaints Respiratory: no complaints Cardiovascular: edema (LLE) Gastrointestinal: no complaints Genitourinary: hematuria Musculoskeletal: no complaints Skin: no complaints Neurologic: no complaints Lymphatic: lymphadema (LLE) Exam/Review of Systems Exam Vitals Vital Signs Date Temp Pulse Resp B/P (MAP) Pulse Ox O2 O2 Flow FiO2 Time Delivery Rate 07/08/18 58 13:54 07/08/18 98.0 19 128/60 92 11:24 (82) 07/07/18 Room Air 04:00 Intake and Output 07/07/18 07/07/18 07/08/18 1515:00 23:00 07:00 IntakeIntake Total 820 ml 360 ml OutputOutput Total 700 ml 600 ml BalanceBalance 120 ml -240 ml Constitutional: alert, oriented, well developed Psych: no complaints, nl mood/affect Head: normocephalic, atraumatic Eyes: nl conjunctiva, nl lids ENMT: nl external ears & nose, nl nasal mucosa & septum, mucosa pink and moist Neck: other (not swollen) Respiratory: clear to auscultation, normal air movement Cardiovascular: regular rate and rhythm, nl pulses, edema (LLE) Gastrointestinal: soft, non-tender Genitourinary - Female: other (+hematuria in FC) Extremities: edema, pitting pedal edema (LLE) 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, nl mental status, nl speech, nl strength Skin: ecchymosis Results Result Diagram: 07/08/18 0640 07/05/18 0541 Results 24hrs Laboratory Tests Test 07/08/18 06:40 07/08/18 06:41 White Blood Count 4.7 L Red Blood Count 2.92 L Hemoglobin 9.2 L Hematocrit 29.4 L Mean Corpuscular Volume 100.7 Mean Corpuscular Hemoglobin 31.5 Mean Corpuscular Hemoglobin Concent 31.3 L Red Cell Distribution Width 18.6 H Platelet Count 166 Mean Platelet Volume 9.8 Immature Granulocytes % 1.700 H Neutrophils % 63.0 Lymphocytes % 25.2 Monocytes % 7.2 Eosinophils % 2.3 Basophils % 0.6 Nucleated Red Blood Cells % 0.0 Immature Granulocytes # 0.080 H Neutrophils # 3.0 Lymphocytes # 1.2 Monocytes # 0.3 Eosinophils # 0.1 Basophils # 0.0 Nucleated Red Blood Cells # 0.0 Prothrombin Time 24.6 #H Prothrombin Time Ratio 1.9 INR International Normalized Ratio 2.21 Hepatitis B Surface Antigen NEGATIVE Hepatitis B Core Total Antibody NEGATIVE Hepatitis C Antibody NEGATIVE Medications Medication Current Medications Levothyroxine Sodium (Synthroid) 50 mcg BEFORE BREAKFAST PO Last administered on 07/08/18 06:42; Admin Dose 50 MCG; Start 05/30/18 at 07:00 Mometasone Furoate (Asmanex) 1 puff DAILY INH Last administered on 07/08/18 08:48; Admin Dose 1 PUFF; Start 05/29/18 at 11:00 Atorvastatin Calcium (Lipitor) 10 mg DAILY@21 PO Last administered on 07/07/18 21:13; Admin Dose 10 MG; Start 05/29/18 at 21:00 Latanoprost (Xalatan) 1 drop HS BOTH EYES Last administered on 07/07/18 21:14; Admin Dose 1 DROP; Start 06/01/18 at 21:00 Amlodipine Besylate (Norvasc) 5 mg DAILY PO ; Start 06/03/18 at 09:00; Status Hold Pantoprazole (Protonix Tab) 40 mg DAILY@06 PO Last administered on 07/08/18 06:42; Admin Dose 40 MG; Start 06/05/18 at 06:00 Metoclopramide HCl (Reglan) 5 mg TID PRN IV Nausea; Start 06/06/18 at 11:00 Polyethylene Glycol (Miralax) 17 gm BID PRN PO CONSTIPATION; Start 06/06/18 at 14:00 Bisacodyl (Dulcolax Supp) 10 mg DAILY PRN [place] CONSTIPATION; Start 06/06/18 at 14:00 IV Flush (NS 10 ml) 10 ml PRN PRN IV IV PROTOCOL; Start 06/06/18 at 16:00 Nystatin (Nystatin Susp) 5 ml QID PO Last administered on 07/08/18 12:38; Admin Dose 5 ML; Start 06/06/18 at 17:00 Metoprolol Tartrate (Lopressor) 25 mg BID PO Last administered on 07/08/18 08:49; Admin Dose 25 MG; Start 06/13/18 at 21:00 Metoprolol Tartrate (Lopressor) 5 mg Q4H PRN IV HR>110 Hold SBP<100; Start 06/13/18 at 10:30 Morphine Sulfate (morphine) 6 mg Q2H PRN PO FOR NON CARDIAC PAIN (4-10); Start 06/13/18 at 11:30 Docusate Sodium (Colace) 100 mg DAILY PRN PO CONSTIPATION; Start 06/21/18 at 12:00 Miscellaneous Information (Pending [facility] Order For Wound Care) This patient gomes... PRN PRN XX WOUND CARE; Start 06/21/18 at 16:00 Amiodarone HCl (Cordarone) 200 mg BID PO Last administered on 07/08/18at 08:49; Admin Dose 200 MG; Start 06/22/18 at 21:00 Miscellaneous Information (*Order Clarification Bulletin) MEDICATION REQUIRES CLARIFICATION:PLE... Q8H XX Last administered on 06/30/18at 12:00; Admin Dose 1 EA; Start 06/26/18 at 12:00 Warfarin Sodium (Coumadin) 5 mg DAILY@17 PO Last administered on 07/05/18at 1 6:58; Admin Dose 5 MG; Start 07/05/18 at 17:00 Miscellaneous Information (* Miscellaneous Pharmacy Order) METOCLOPRAMIDE ORDER EXPIRES ON ... Q12H XX ; Start 07/06/18 at 12:30 Bumetanide (Bumex) 1 mg DAILY@0600 PO ; Start 07/09/18 at 06:00 SHARI CROWELL M.D. Jul 08, 2018 14:34
--- NOTE | 2018-07-08 14:35 | CONS ---
Assessment/Plan Assessment/Plan Hospital Course (Demo Recall) IMP: 1.cad s/p LHC with no sig obstructive cad. Mildly depressed LVEF--40-45% ? nonischemic process 2.HTN 3.RP Bleed s/p transfusions now stable and tolerating heparin/coumadin loading. 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 Stable collection by abd CT 06/06 but still with pigtail catheter in place 4.HL 5.MVR-mechanical 6.anemia- s/p repair of R E [employer]ERCE PROJECT MANAGER/illiac. Had hemoptysis with subsequent drop in Hgb again and holding of heparin. Had some mild blood tinged sputum 7.Hypothyroid 8. GOMES-negative Head CT 9. Fevers-with positive ua 10. UTI-recurrent by u/a 06/29 11.ARF-? Contrast induced/compression from hematoma- now improving with increased urine output and slowly decreasing application design engineer 12. Coagulopathy-now therapeutic 14. LE weakness-? compression from hematoma and exacerbated by femoral compression after cath-now resolved 15. arterial insuff- LLE- s/p TOBACCO DRUMMER/thrombolysis 06/04 successfully with palpable pulses/B DP/PT and remain that way 16. PAF/AFL-rate controlled 17. 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 18. Epistaxis-improved 19. anemia-stable overall with possible mild downtrend today Recc: -Now on tele -Continue BB with well controlled Hr's -Continue statin -s/p course of abx's -ongoing ID f/u -F/U application design engineer/K closely with creatnine now normalized and volume status improved. -Follow HGb closely which has been stable to improved actually -PT/ambulation -Follow volume status closely now off of bumex -will continue amio bid for now in attempt to return patient to SR -Urology following with findings of apparent bladder fistula and thus draining of the hematoma through the bladder causing hematuria. Per urology thus ok to continue coumadin. Follow hematuria for resolution and assess need for spon taneous closure versus need for repair discussed with urology. -resume coumadin and follow inr closely -s/p increase of bumex and will give extra dose bumex today Consultation Date/Type/Reason Admit Date/Time May 28, 2018 at 17:52 Initial Consult Date 05/28/18 Type of Consult Cardiology Reason for Consultation MVR Requesting Provider: JULY VALENTIN MD Date/Time of Note DATE: 07/08/18 TIME: 14:31 Exam/Review of Systems Vital Signs Vitals Vital Signs Date Temp Pulse Resp B/P (MAP) Pulse Ox O2 O2 Flow FiO2 Time Delivery Rate 07/08/18 58 13:54 07/08/18 98.0 19 128/60 92 11:24 (82) 07/07/18 Room Air 04:00 Intake and Output 07/07/18 07/07/18 07/08/18 1515:00 23:00 07:00 IntakeIntake Total 820 ml 360 ml OutputOutput Total 700 ml 600 ml BalanceBalance 120 ml -240 ml Exam Exam Review of Systems: CONSTITUTIONAL: No fevers, chills. PULMONARY: No sob CARDIOVASCULAR: No chest pain/palpitations GASTROINTESTINAL: No nausea/vomiting. GENITOURINARY: No hematuria/dysuria. MUSCULOSKELETAL: No myagias/arthalgias. PSYCHIATRIC: The patient denies depression. NEUROLOGIC: No weakness Constitutional: alert Psych: no complaints Head: normocephalic ENMT: mucosa pink and moist Neck: supple, jvd (9 cm water) Respiratory: diminished breath sounds (at bases/B) Cardiovascular: regular rate and rhythm Gastrointestinal: soft, non-tender Musculoskeletal: muscle tone (normal) Extremities: edema (trace/B) Neurological: other (No focal deficits) Labs Result Diagram: 07/08/18 0640 07/05/18 0541 Results 24hrs Laboratory Tests Test 07/08/18 06:40 07/08/18 06:41 White Blood Count 4.7 L Red Blood Count 2.92 L Hemoglobin 9.2 L Hematocrit 29.4 L Mean Corpuscular Volume 100.7 Mean Corpuscular Hemoglobin 31.5 Mean Corpuscular Hemoglobin Concent 31.3 L Red Cell Distribution Width 18.6 H Platelet Count 166 Mean Platelet Volume 9.8 Immature Granulocytes % 1.700 H Neutrophils % 63.0 Lymphocytes % 25.2 Monocytes % 7.2 Eosinophils % 2.3 Basophils % 0.6 Nucleated Red Blood Cells % 0.0 Immature Granulocytes # 0.080 H Neutrophils # 3.0 Lymphocytes # 1.2 Monocytes # 0.3 Eosinophils # 0.1 Basophils # 0.0 Nucleated Red Blood Cells # 0.0 Prothrombin Time 24.6 #H Prothrombin Time Ratio 1.9 INR International Normalized Ratio 2.21 Hepatitis B Surface Antigen NEGATIVE Hepatitis B Core Total Antibody NEGATIVE Hepatitis C Antibody NEGATIVE Medications Medications Current Medications Levothyroxine Sodium (Synthroid) 50 mcg BEFORE BREAKFAST PO Last administered on 07/08/18 06:42; Admin Dose 50 MCG; Start 05/30/18 at 07:00 Mometasone Furoate (Asmanex) 1 puff DAILY INH Last administered on 07/08/18 08:48; Admin Dose 1 PUFF; Start 05/29/18 at 11:00 Atorvastatin Calcium (Lipitor) 10 mg DAILY@21 PO Last administered on 07/07/18 21:13; Admin Dose 10 MG; Start 05/29/18 at 21:00 Latanoprost (Xalatan) 1 drop HS BOTH EYES Last administered on 07/07/18 21:14; Admin Dose 1 DROP; Start 06/01/18 at 21:00 Amlodipine Besylate (Norvasc) 5 mg DAILY PO ; Start 06/03/18 at 09:00; Status Hold Pantoprazole (Protonix Tab) 40 mg DAILY@06 PO Last administered on 07/08/18 06:42; Admin Dose 40 MG; Start 06/05/18 at 06:00 Metoclopramide HCl (Reglan) 5 mg TID PRN IV Nausea; Start 06/06/18 at 11:00 Polyethylene Glycol (Miralax) 17 gm BID PRN PO CONSTIPATION; Start 06/06/18 at 14:00 Bisacodyl (Dulcolax Supp) 10 mg DAILY PRN [place] CONSTIPATION; Start 06/06/18 at 14:00 IV Flush (NS 10 ml) 10 ml PRN PRN IV IV PROTOCOL; Start 06/06/18 at 16:00 Nystatin (Nystatin Susp) 5 ml QID PO Last administered on 07/08/18 12:38; Admin Dose 5 ML; Start 06/06/18 at 17:00 Metoprolol Tartrate (Lopressor) 25 mg BID PO Last administered on 07/08/18 08:49; Admin Dose 25 MG; Start 06/13/18 at 21:00 Metoprolol Tartrate (Lopressor) 5 mg Q4H PRN IV HR>110 Hold SBP<100; Start 06/13/18 at 10:30 Morphine Sulfate (morphine) 6 mg Q2H PRN PO FOR NON CARDIAC PAIN (4-10); Start 06/13/18 at 11:30 Docusate Sodium (Colace) 100 mg DAILY PRN PO CONSTIPATION; Start 06/21/18 at 12:00 Miscellaneous Information (Pending [facility] Order For Wound Care) This patient gomes... PRN PRN XX WOUND CARE; Start 06/21/18 at 16:00 Amiodarone HCl (Cordarone) 200 mg BID PO Last administered on 07/08/18at 08:49; Admin Dose 200 MG; Start 06/22/18 at 21:00 Miscellaneous Information (*Order Clarification Bulletin) MEDICATION REQUIRES CLARIFICATION:PLE... Q8H XX Last administered on 06/30/18at 12:00; Admin Dose 1 EA; Start 06/26/18 at 12:00 Warfarin Sodium (Coumadin) 5 mg DAILY@17 PO Last administered on 07/05/18at 16:58; Admin Dose 5 MG; Start 07/05/18 at 17:00 Miscellaneous Information (* Miscellaneous Pharmacy Order) METOCLOPRAMIDE ORDER EXPIRES ON ... Q12H XX ; Start 07/06/18 at 12:30 Bumetanide (Bumex) 1 mg DAILY@0600 PO ; Start 07/09/18 at 06:00 CHRIS LAZAR Jul 08, 2018 14:35
[2018-07-08] MEDS ORDERED: BUMETANIDE 1 MG INJ IV ONE (15:00)
--- NOTE | 2018-07-08 16:02 | CONS ---
Assessment/Plan Assessment/Plan Assessment/Plan (Daily) IMPRESSION: 1. Cirrhosis of liver, etiology is unclear. 2. Coronary artery disease, nonobstructive, with ejection fraction of 40 to 45%, nonischemic. 3. Hypertension. 4. Retroperitoneal bleed. 5. Mitral valve replacement due to mechanical mitral valve. 6. Hypothyroidism. 7. Urinary tract infection. 8. Paroxysmal atrial fibrillation, rate is controlled. 9. Hematuria. 10. Status post rupture of the urinary bladder. 11. Epistaxis, improved. Plan Continue present care Hepatitis panel has been negative Awaiting for further workup for chronic liver disease Consultation Date/Type/Reason Admit Date/Time May 28, 2018 at 17:52 Initial Consult Date 06/03/18 Requesting Provider: JULY VALENTIN MD Date/Time of Note DATE: 07/08/18 TIME: 16:01 24 HR Interval Summary Constitutional: no complaints, improved Exam/Review of Systems Exam Vitals Vital Signs Date Temp Pulse Resp B/P (MAP) Pulse Ox O2 O2 Flow FiO2 Time Delivery Rate 07/08/18 97.7 69 18 129/60 94 15:57 (83) 07/07/18 Room Air 04:00 Intake and Output 07/07/18 07/07/18 07/08/18 1515:00 23:00 07:00 IntakeIntake Total 820 ml 360 ml OutputOutput Total 700 ml 600 ml BalanceBalance 120 ml -240 ml Constitutional: alert, oriented, well developed Psych: no complaints, nl mood/affect Head: normocephalic, atraumatic Eyes: nl conjunctiva, EOMI, nl lids, nl sclera, PERRL ENMT: nl external ears & nose, nl lips & teeth, nl nasal mucosa & septum Neck: supple, non-tender Respiratory: clear to auscultation, normal air movement Cardiovascular: regular rate and rhythm, nl pulses Gastrointestinal: soft, nl liver, spleen, non-tender Musculoskeletal: nl extremities to inspection, nl gait and stance Extremities: normal pulses Neurological: HARDWARE ENGINEER II-XII intact, nl mental status, nl speech, nl strength Skin: nl turgor; No rash or lesions Lymph: nl lymph nodes Results Result Diagram: 07/08/18 0640 07/05/18 0541 Results 24hrs Laboratory Tests Test 07/08/18 06:40 07/08/18 06:41 White Blood Count 4.7 L Red Blood Count 2.92 L Hemoglobin 9.2 L Hematocrit 29.4 L Mean Corpuscular Volume 100.7 Mean Corpuscular Hemoglobin 31.5 Mean Corpuscular Hemoglobin Concent 31.3 L Red Cell Distribution Width 18.6 H Platelet Count 166 Mean Platelet Volume 9.8 Immature Granulocytes % 1.700 H Neutrophils % 63.0 Lymphocytes % 25.2 Monocytes % 7.2 Eosinophils % 2.3 Basophils % 0.6 Nucleated Red Blood Cells % 0.0 Immature Granulocytes # 0.080 H Neutrophils # 3.0 Lymphocytes # 1.2 Monocytes # 0.3 Eosinophils # 0.1 Basophils # 0.0 Nucleated Red Blood Cells # 0.0 Prothrombin Time 24.6 #H Prothrombin Time Ratio 1.9 INR International Normalized Ratio 2.21 Hepatitis B Surface Antigen NEGATIVE Hepatitis B Core Total Antibody NEGATIVE Hepatitis C Antibody NEGATIVE Medications Medication Current Medications Levothyroxine Sodium (Synthroid) 50 mcg BEFORE BREAKFAST PO Last administered on 07/08/18at 06:42; Admin Dose 50 MCG; Start 05/30/18 at 07:00 Mometasone Furoate (Asmanex) 1 puff DAILY INH Last administered on 07/08/18at 08:48; Admin Dose 1 PUFF; Start 05/29/18 at 11:00 Atorvastatin Calcium (Lipitor) 10 mg DAILY@21 PO Last administered on 07/07/18at 21:13; Admin Dose 10 MG; Start 05/29/18 at 21:00 Latanoprost (Xalatan) 1 drop HS BOTH EYES Last administered on 07/07/18at 21:14; Admin Dose 1 DROP; Start 06/01/18 at 21:00 Amlodipine Besylate (Norvasc) 5 mg DAILY PO ; Start 06/03/18 at 09:00; Status Hold Pantoprazole (Protonix Tab) 40 mg DAILY@06 PO Last administered on 07/08/18at 06:42; Admin Dose 40 MG; Start 06/05/18 at 06:00 Metoclopramide HCl (Reglan) 5 mg TID PRN IV Nausea; Start 06/06/18 at 11:00 Polyethylene Glycol (Miralax) 17 gm BID PRN PO CONSTIPATION; Start 06/06/18 at 14:00 Bisacodyl (Dulcolax Supp) 10 mg DAILY PRN [place] CONSTIPATION; Start 06/06/18 at 14:00 IV Flush (NS 10 ml) 10 ml PRN PRN IV IV PROTOCOL; Start 06/06/18 at 16:00 Nystatin (Nystatin Susp) 5 ml QID PO Last administered on 07/08/18at 12:38; Adm in Dose 5 ML; Start 06/06/18 at 17:00 Metoprolol Tartrate (Lopressor) 25 mg BID PO Last administered on 07/08/18at 08:49; Admin Dose 25 MG; Start 06/13/18 at 21:00 Metoprolol Tartrate (Lopressor) 5 mg Q4H PRN IV HR>110 Hold SBP<100; Start 06/13/18 at 10:30 Morphine Sulfate (morphine) 6 mg Q2H PRN PO FOR NON CARDIAC PAIN (4-10); Start 06/13/18 at 11:30 Docusate Sodium (Colace) 100 mg DAILY PRN PO CONSTIPATION; Start 06/21/18 at 12:00 Miscellaneous Information (Pending [facility] Order For Wound Care) This patient gomes... PRN PRN XX WOUND CARE; Start 06/21/18 at 16:00 Amiodarone HCl (Cordarone) 200 mg BID PO Last administered on 07/08/18at 08:49; Admin Dose 200 MG; Start 06/22/18 at 21:00 Miscellaneous Information (*Order Clarification Bulletin) MEDICATION REQUIRES CLARIFICATION:PLE... Q8H XX Last administered on 06/30/18at 12:00; Admin Dose 1 EA; Start 06/26/18 at 12:00 Warfarin Sodium (Coumadin) 5 mg DAILY@17 PO Last administered on 07/05/18at 16:58; Admin Dose 5 MG; Start 07/05/18 at 17:00 Miscellaneous Information (* Miscellaneous Pharmacy Order) METOCLOPRAMIDE ORDER EXPIRES ON ... Q12H XX ; Start 07/06/18 at 12:30 Bumetanide (Bumex) 1 mg DAILY@0600 PO ; Start 07/09/18 at 06:00 ALEXANDRU CHAPIN MD Jul 08, 2018 16:02
[2018-07-08] MEDS ORDERED: WARFARIN 2 MG TAB PO SCH (17:00)
[2018-07-08] MEDS ORDERED: WARFARIN 5 MG TAB PO SCH (17:00)
--- NOTE | 2018-07-08 19:37 | CONS ---
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 She denies any pain. Objective Vitals Vital Signs Date Temp Pulse Resp B/P (MAP) Pulse Ox O2 O2 Flow FiO2 Time Delivery Rate 07/08/18 92 17:21 07/08/18 97.7 18 129/60 94 15:57 (83) 07/07/18 Room Air 04:00 Intake and Output 07/07/18 07/07/18 07/08/18 1515:00 23:00 07:00 IntakeIntake Total 820 ml 360 ml OutputOutput Total 700 ml 600 ml BalanceBalance 120 ml -240 ml Exam The Mensah catheter is draining blood-tinged urine but that is clearing Results/Medications Result Diagram: 07/08/18 0640 07/05/18 0541 Results 24 hrs Laboratory Tests Test 07/08/18 06:40 07/08/18 06:41 White Blood Count 4.7 L Red Blood Count 2.92 L Hemoglobin 9.2 L Hematocrit 29.4 L Mean Corpuscular Volume 100.7 Mean Corpuscular Hemoglobin 31.5 Mean Corpuscular Hemoglobin Concent 31.3 L Red Cell Distribution Width 18.6 H Platelet Count 166 Mean Platelet Volume 9.8 Immature Granulocytes % 1.700 H Neutrophils % 63.0 Lymphocytes % 25.2 Monocytes % 7.2 Eosinophils % 2.3 Basophils % 0.6 Nucleated Red Blood Cells % 0.0 Immature Granulocytes # 0.080 H Neutrophils # 3.0 Lymphocytes # 1.2 Monocytes # 0.3 Eosinophils # 0.1 Basophils # 0.0 Nucleated Red Blood Cells # 0.0 Prothrombin Time 24.6 #H Prothrombin Time Ratio 1.9 INR International Normalized Ratio 2.21 Hepatitis B Surface Antigen NEGATIVE Hepatitis B Core Total Antibody NEGATIVE Hepatitis C Antibody NEGATIVE Home Meds Reported Medications Albuterol Sulfate* (Ventolin HFA*) 18 Gm Hfa.aer.ad, 2 PUFF INHALATION Q4H, #1 INHALER 05/26/18 Ergocalciferol (Vitamin D2) (VITAMIN D2) 50,000 Unit Capsule, 33422 UNIT PO [id number], CAP 05/23/18 Warfarin Sodium* (Coumadin*) 5 Mg Tablet, 5 MG PO Q TUES,THUR,SAT, TAB 05/23/18 Warfarin Sodium* (Coumadin*) 4 Mg Tablet, 4 MG PO Q MON,WED,FRI,SUN, TAB 05/23/18 Furosemide* (Furosemide*) 20 Mg Tablet, 20 MG PO DAILY, #60 TAB TAKE Q 2 DAYS 05/23/18 Simvastatin* (Zocor*) 20 Mg Tablet, 20 MG PO QHS, #30 TAB 05/23/18 Ranitidine Hcl* (Ranitidine Hcl*) 150 Mg Tablet, 150 MG PO HS, #30 TAB 05/23/18 Acetaminophen (Mapap) 500 Mg Capsule, 500 MG PO BID PRN for PAIN, CAP 05/23/18 Levothyroxine Sodium* (Levothyroxine Sodium*) 50 Mcg Tablet, 50 MCG PO BEFORE BREAKFAST, #30 TAB 05/23/18 Spironolactone* (Aldactone*) 25 Mg Tablet, 25 MG PO DAILY, #30 TAB 05/23/18 Beclomethasone Dipropionate (Qvar Redihaler (40 MCG)) 10.6 Gm Hfa.aeroba, 10.6 GM IH DAILY, INH 05/23/18 Amlodipine Besylate* (Norvasc*) 5 Mg Tablet, 5 MG PO BID, TAB 05/23/18 Losartan-Hydrochlorothiazide (Losartan-HCTZ) 100-25 Mg Tab, 1 TAB PO DAILY, TAB 05/23/18 Medications Current Medications Levothyroxine Sodium (Synthroid) 50 mcg BEFORE BREAKFAST PO Last administered on 07/08/18at 06:42; Admin Dose 50 MCG; Start 05/30/18 at 07:00 Mometasone Furoate (Asmanex) 1 puff DAILY INH Last administered on 07/08/18at 08:48; Admin Dose 1 PUFF; Start 05/29/18 at 11:00 Atorvastatin Calcium (Lipitor) 10 mg DAILY@21 PO Last administered on 07/07/18at 21:13; Admin Dose 10 MG; Start 05/29/18 at 21:00 Latanoprost (Xalatan) 1 drop HS BOTH EYES Last administered on 07/07/18at 21:14; Admin Dose 1 DROP; Start 06/01/18 at 21:00 Amlodipine Besylate (Norvasc) 5 mg DAILY PO ; Start 06/03/18 at 09:00; Status Hold Pantoprazole (Protonix Tab) 40 mg DAILY@06 PO Last administered on 07/08/18 06:42; Admin Dose 40 MG; Start 06/05/18 at 06:00 Metoclopramide HCl (Reglan) 5 mg TID PRN IV Nausea; Start 06/06/18 at 11:00 Polyethylene Glycol (Miralax) 17 gm BID PRN PO CONSTIPATION; Start 06/06/18 at 14:00 Bisacodyl (Dulcolax Supp) 10 mg DAILY PRN [place] CONSTIPATION; Start 06/06/18 at 14:00 IV Flush (NS 10 ml) 10 ml PRN PRN IV IV PROTOCOL; Start 06/06/18 at 16:00 Nystatin (Nystatin Susp) 5 ml QID PO Last administered on 07/08/18at 17:40; Admin Dose 5 ML; Start 06/06/18 at 17:00 Metoprolol Tartrate (Lopressor) 25 mg BID PO Last administered on 07/08/18at 08:49; Admin Dose 25 MG; Start 06/13/18 at 21:00 Metoprolol Tartrate (Lopressor) 5 mg Q4H PRN IV HR>110 Hold SBP<100; Start 06/13/18 at 10:30 Morphine Sulfate (morphine) 6 mg Q2H PRN PO FOR NON CARDIAC PAIN (4-10); Start 06/13/18 at 11:30 Docusate Sodium (Colace) 100 mg DAILY PRN PO CONSTIPATION; Start 06/21/18 at 12:00 Miscellaneous Information (Pending [facility] Order For Wound Care) This patient gomes... PRN PRN XX WOUND CARE; Start 06/21/18 at 16:00 Amiodarone HCl (Cordarone) 200 mg BID PO Last administered on 07/08/18 08:49; Admin Dose 200 MG; Start 06/22/18 at 21:00 Miscellaneous Information (*Order Clarification Bulletin) MEDICATION REQUIRES CLARIFICATION:PLE... Q8H XX Last administered on 06/30/18at 12:00; Admin Dose 1 EA; Start 06/26/18 at 12:00 Miscellaneous Information (* Miscellaneous Pharmacy Order) METOCLOPRAMIDE ORDER EXPIRES ON 3... Q12H XX ; Start 07/06/18 at 12:30 Bumetanide (Bumex) 1 mg DAILY@0600 PO ; Start 07/09/18 at 06:00 Warfarin Sodium (Coumadin) 5 mg DAILY@17 PO ; Start 07/09/18 at 17:00 Assessment/Plan Hospital Course (Demo Recall) 62-year-old female underwent coronary angiogram. 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 I did insert the catheter for her and she was anuric. Since then she has improved and has been making urine and the urine was clear however today her urine was bloody. We checked her postvoid residual and she had only 175 mL. Urine was sent for culture and sensitivity. Her last urine culture was no growth after 48 hours. The patient has been having hematuria for the past 2 days and today as she is to drop to have the physical therapy a lot of blood came out. I ordered CT scan of the abdomen and pelvis to see if the hematoma has fistulized into the bladder. She underwent a CT scan and that was reported: 1. Compared to the previous exam of 06/06/2018, the previously seen right lower quadrant pigtail catheter has been removed and the chronic hemoperitoneum or pelvic hematoma has decreased in volume now estimated at 1033 cc compared to all 1260 cc with evolution of the blood products, the attenuation decreasing from 72 HU to 45 HU. Continued surveillance is recommended with follow-up CT as determined clinically. 2. Atrophic uterus without endometrial thickening or other findings to explain the patient's provided history of vaginal bleeding. 3. Post thoracotomy changes with marked cardiomegaly, mitral valve prosthesis, left ventricular apex calcification and increased bibasilar subsegmental atelectasis. 4. Nodular contour to the liver consistent with cirrhosis is again noted. 5. Cholelithiasis without evidence for cholecystitis. 6. Stable mild splenomegaly. 7. Tiny left intrarenal calculus without hydronephrosis. 8. Contracted urinary bladder is difficult to evaluate. 9. Resolved small bowel wall thickening, enteric contrast media within the colon with diverticular disease but no diverticulitis. 10. Resolved anasarca pattern of the subcutaneous tissues I did call the radiologist who read the CT scan and discussed with him the clinical reasons I requested the CT scan and the suspicion that I had for a fistula. He did review the CT while I was talking with him and added an amendment to the report that says: AMENDMENT: 07/01/2018 7:59:21 PM Anjum Magallon D.o A telephone conversation takes place with the patient's urologist, Dr. Godwin, at 19:50 and he kindly provides additional history of sudden onset of hematuria upon standing. Upon further review of the images, there is loss of the normal fat plane between the pelvic hematoma with the anterior dome of the urinary bladder which cannot exclude the possibility of a fistula between the hematoma and a bladder that would explain the patients hematuria. There is preservation of the fat plane between the hematoma and the middle and inferior portion of the anterior urinary bladder. There is no evidence of loss of fat plane between the hematoma and vagina to suggest a fistula in this location. It is discussed that the patient would likely benefit from further evaluation with a CT cystogram performed in the prone position to limit the amount of contrast to opacify the potential fistula. 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 The bleeding in her urine is coming from that hematoma. I did show her son the pictures and explained to him that if the hematoma drains through the bladder we just have to keep the Mensah catheter in and wait for it to drain completely and then the bladder hopefully will heal by itself and if it does not we could always do surgery and close it. At the present the Mensah catheter continues to drain dark blood mixed with urine. The suprapubic hematoma is smaller in size. The urine culture grew: URINE CULTURE Final Organism 1 HAFNIA ALVEI COLONY COUNT >100,000 CFU/ml Organism 2 MIXED GRAM POSITIVE ORGANISMS COLONY COUNT >100,000 CFU/ml HAF ALVEI HAF ALVEI M.I.C. RX M.I.C. RX --------- --- --------- --- AMPICILLIN R AMPICILLIN/SULBACTAM >=32 R CEFAZOLIN R CEFOTAXIME S CIPROFLOXACIN <=0.25 S GENTAMICIN <=1 S LEVOFLOXACIN <=0.12 S MEROPENEM 0.064 S NITROFURANTOIN <=16 S TOBRAMYCIN <=1 S TRIMETHOPRIM/SULFAMETHOXAZOLE <=20 S The patient is on Zosyn. Patient is comfortable and she has no pain. The abdomen is softer and the suprapubic mass is smaller. The suprapubic hematoma is getting smaller and the bladder urine is blood-tinged from the hematoma that is draining into it. For now continue the same: Keep the Mensah catheter in place, Patient also was restarted on Coumadin . I discussed her condition with her son who was at her bedside. JOAQUIN DE LEON MD Jul 08, 2018 19:37
[2018-07-08] MEDS: LATANOPROST 0.005% 2.5 ML OPH BOTH EYES SCH (21:37)
[2018-07-08] MEDS: ATORVASTATIN 10 MG TAB PO SCH (21:39)
[2018-07-09] VITALS (12 sets, daily range): BP systolic 102–131; BP diastolic 51–68; PULSE 64–82; RESP 19–21
[2018-07-09] MEDS: [UNRECOGNIZED DRUG - OTHER] XX SCH (00:30)
[2018-07-09] MEDS: BUMETANIDE 1 MG TAB PO SCH (05:59)
[2018-07-09] MEDS: LEVOTHYROXINE 50 MCG TAB PO SCH (05:59)
[2018-07-09] MEDS: PANTOPRAZOLE (EC) 40 MG TAB PO SCH (05:59)
[2018-07-09] MEDS: NYSTATIN SUSP 5 ML CUP PO SCH ×4 (08:32→22:08)
[2018-07-09] MEDS: AMIODARONE 200 MG TAB PO SCH ×2 (08:32→22:07)
[2018-07-09] MEDS: METOPROLOL 25 MG TAB PO SCH ×2 (08:33→22:08)
[2018-07-09] MEDS: MOMETASONE 0.24 GM INHALER INH SCH (08:33)
[2018-07-09] MEDS: FERROUS SULFATE (EC) 325 MG TAB PO SCH ×2 (10:02→22:07)
--- NOTE | 2018-07-09 12:44 | CONS ---
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 Objective Vitals Vital Signs Date Temp Pulse Resp B/P (MAP) Pulse Ox O2 O2 Flow FiO2 Time Delivery Rate 07/09/18 74 12:31 07/09/18 98.3 102/51 96 11:42 (68) 07/09/18 21 07:33 07/07/18 Room Air 04:00 Intake and Output 07/08/18 07/08/18 07/09/18 1515:00 23:00 07:00 IntakeIntake Total 700 ml OutputOutput Total 650 ml BalanceBalance 50 ml Exam The suprapubic area hematoma is getting smaller and there is no tenderness over that area. The Mensah catheter is draining well and the urine is clearing up. Results/Medications Result Diagram: 07/09/18 0557 07/09/18 0557 Results 24 hrs Laboratory Tests Test 07/09/18 05:57 White Blood Count 4.1 L Red Blood Count 2.80 L Hemoglobin 8.8 L Hematocrit 28.6 L Mean Corpuscular Volume 102.1 H Mean Corpuscular Hemoglobin 31.4 Mean Corpuscular Hemoglobin Concent 30.8 L Red Cell Distribution Width 18.3 H Platelet Count 155 Mean Platelet Volume 9.6 Immature Granulocytes % 1.500 H Neutrophils % 63.5 Lymphocytes % 24.2 Monocytes % 8.1 Eosinophils % 2.2 Basophils % 0.5 Nucleated Red Blood Cells % 0.0 Immature Granulocytes # 0.060 H Neutrophils # 2.6 Lymphocytes # 1.0 Monocytes # 0.3 Eosinophils # 0.1 Basophils # 0.0 Nucleated Red Blood Cells # 0.0 Prothrombin Time 20.7 H Prothrombin Time Ratio 1.6 INR International Normalized Ratio 1.77 Sodium Level 139 Potassium Level 3.9 Chloride Level 103 Carbon Dioxide Level 29 Anion Gap 7 Blood Urea Nitrogen 24 H Creatinine 0.66 Est Glomerular Filtrat Rate mL/min > 60 Glucose Level 148 Calcium Level 8.8 Phosphorus Level 4.2 Magnesium Level 1.7 Home Meds Reported Medications Albuterol Sulfate* (Ventolin HFA*) 18 Gm Hfa.aer.ad, 2 PUFF INHALATION Q4H, #1 INHALER 05/26/18 Ergocalciferol (Vitamin D2) (VITAMIN D2) 50,000 Unit Capsule, 40862 UNIT PO [id number], CAP 05/23/18 Warfarin Sodium* (Coumadin*) 5 Mg Tablet, 5 MG PO Q TUES,THUR,SAT, TAB 05/23/18 Warfarin Sodium* (Coumadin*) 4 Mg Tablet, 4 MG PO Q MON,WED,FRI,SUN, TAB 05/23/18 Furosemide* (Furosemide*) 20 Mg Tablet, 20 MG PO DAILY, #60 TAB TAKE Q 2 DAYS 05/23/18 Simvastatin* (Zocor*) 20 Mg Tablet, 20 MG PO QHS, #30 TAB 05/23/18 Ranitidine Hcl* (Ranitidine Hcl*) 150 Mg Tablet, 150 MG PO HS, #30 TAB 05/23/18 Acetaminophen (Mapap) 500 Mg Capsule, 500 MG PO BID PRN for PAIN, CAP 05/23/18 Levothyroxine Sodium* (Levothyroxine Sodium*) 50 Mcg Tablet, 50 MCG PO BEFORE BREAKFAST, #30 TAB 05/23/18 Spironolactone* (Aldactone*) 25 Mg Tablet, 25 MG PO DAILY, #30 TAB 05/23/18 Beclomethasone Dipropionate (Qvar Redihaler (40 MCG)) 10.6 Gm Hfa.aeroba, 10.6 GM IH DAILY, INH 05/23/18 Amlodipine Besylate* (Norvasc*) 5 Mg Tablet, 5 MG PO BID, TAB 05/23/18 Losartan-Hydrochlorothiazide (Losartan-HCTZ) 100-25 Mg Tab, 1 TAB PO DAILY, TAB 05/23/18 Medications Current Medications Levothyroxine Sodium (Synthroid) 50 mcg BEFORE BREAKFAST PO Last administered on 07/09/18at 05:59; Admin Dose 50 MCG; Start 05/30/18 at 07:00 Mometasone Furoate (Asmanex) 1 puff DAILY INH Last administered on 07/09/18at 08:33; Admin Dose 1 PUFF; Start 05/29/18 at 11:00 Atorvastatin Calcium (Lipitor) 10 mg DAILY@21 PO Last administered on 07/08/18 21:39; Admin Dose 10 MG; Start 05/29/18 at 21:00 Latanoprost (Xalatan) 1 drop HS BOTH EYES Last administered on 07/08/18at 21:37; Admin Dose 1 DROP; Start 06/01/18 at 21:00 Amlodipine Besylate (Norvasc) 5 mg DAILY PO ; Start 06/03/18 at 09:00; Status Hold Pantoprazole (Protonix Tab) 40 mg DAILY@06 PO Last administered on 07/09/18at 05:59; Admin Dose 40 MG; Start 06/05/18 at 06:00 Metoclopramide HCl (Reglan) 5 mg TID PRN IV Nausea; Start 06/06/18 at 11:00 Polyethylene Glycol (Miralax) 17 gm BID PRN PO CONSTIPATION; Start 06/06/18 at 14:00 Bisacodyl (Dulcolax Supp) 10 mg DAILY PRN [place] CONSTIPATION; Start 06/06/18 at 1 4:00 IV Flush (NS 10 ml) 10 ml PRN PRN IV IV PROTOCOL; Start 06/06/18 at 16:00 Nystatin (Nystatin Susp) 5 ml QID PO Last administered on 07/09/18 08:32; Admin Dose 5 ML; Start 06/06/18 at 17:00 Metoprolol Tartrate (Lopressor) 25 mg BID PO Last administered on 07/09/18 08:33; Admin Dose 25 MG; Start 06/13/18 at 21:00 Metoprolol Tartrate (Lopressor) 5 mg Q4H PRN IV HR>110 Hold SBP<100; Start at 10:30 Morphine Sulfate (morphine) 6 mg Q2H PRN PO FOR NON CARDIAC PAIN (4-10); Start 06/13/18 at 11:30 Docusate Sodium (Colace) 100 mg DAILY PRN PO CONSTIPATION; Start 06/21/18 at 12:00 Miscellaneous Information (Pending [facility] Order For Wound Care) This patient gomes... PRN PRN XX WOUND CARE; Start 06/21/18 at 16:00 Amiodarone HCl (Cordarone) 200 mg BID PO Last administered on 07/09/18 08:32; Admin Dose 200 MG; Start 06/22/18 at 21:00 Bumetanide (Bumex) 1 mg DAILY@0600 PO Last administered on 07/09/18at 05:59; Admin Dose 1 MG; Start 07/09/18 at 06:00 Warfarin Sodium (Coumadin) 6 mg DAILY@17 PO ; Start 07/09/18 at 17:00 Ferrous Sulfate (Ferrous Sulfate (Ec)) 325 mg BID PO Last administered on 07/09/18at 10:02; Admin Dose 325 MG; Start 07/09/18 at 09:30 Docusate Sodium (Colace) 100 mg DAILY PO ; Start 07/10/18 at 09:00 Assessment/Plan Hospital Course (Demo Recall) 62-year-old female underwent coronary angiogram. 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 I did insert the catheter for her and she was anuric. Since then she has improved and has been making urine and the urine was clear however today her urine was bloody. We checked her postvoid residual and she had only 175 mL. Urine was sent for culture and sensitivity. Her last urine culture was no growth after 48 hours. The patient has been having hematuria for the past 2 days and today as she is to drop to have the physical therapy a lot of blood came out. I ordered CT scan of the abdomen and pelvis to see if the hematoma has fistulized into the bladder. She underwent a CT scan and that was reported: 1. Compared to the previous exam of 06/06/2018, the previously seen right lower quadrant pigtail catheter has been removed and the chronic hemoperitoneum or pelvic hematoma has decreased in volume now estimated at 1033 cc compared to all 1260 cc with evolution of the blood products, the attenuation decreasing from 72 HU to 45 HU. Continued surveillance is recommended with follow-up CT as determined clinically. 2. Atrophic uterus without endometrial thickening or other findings to explain the patient's provided history of vaginal bleeding. 3. Post thoracotomy changes with marked cardiomegaly, mitral valve prosthesis, left ventricular apex calcification and increased bibasilar subsegmental atelectasis. 4. Nodular contour to the liver consistent with cirrhosis is again noted. 5. Cholelithiasis without evidence for cholecystitis. 6. Stable mild splenomegaly. 7. Tiny left intrarenal calculus without hydronephrosis. 8. Contracted urinary bladder is difficult to evaluate. 9. Resolved small bowel wall thickening, enteric contrast media within the colon with diverticular disease but no diverticulitis. 10. Resolved anasarca pattern of the subcutaneous tissues I did call the radiologist who read the CT scan and discussed with him the clinical reasons I requested the CT scan and the suspicion that I had for a fistula. He did review the CT while I was talking with him and added an amendment to the report that says: AMENDMENT: 07/01/2018 7:59:21 PM Anjum Magallon D.o A telephone conversation takes place with the patient's urologist, Dr. Godwin, at 19:50 and he kindly provides additional history of sudden onset of hematuria upon standing. Upon further review of the images, there is loss of the normal fat plane between the pelvic hematoma with the anterior dome of the urinary bladder which cannot exclude the possibility of a fistula between the hematoma and a bladder that would explain the patients hematuria. There is preservation of the fat plane between the hematoma and the middle and inferior portion of the anterior urinary bladder. There is no evidence of loss of fat plane between the hematoma and vagina to suggest a fistula in this location. It is discussed that the patient would likely benefit from further evaluation with a CT cystogram performed in the prone position to limit the amount of contrast to opacify the potential fistula. 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 The bleeding in her urine is coming from that hematoma. I did show her son the pictures and explained to him that if the hematoma drains through the bladder we just have to keep the Mensah catheter in and wait for it to drain completely and then the bladder hopefully will heal by itself and if it does not we could always do surgery and close it. At the present the Mensah catheter continues to drain dark blood mixed with urine. The suprapubic hematoma is smaller in size. The urine culture grew: URINE CULTURE Final Organism 1 HAFNIA ALVEI COLONY COUNT >100,000 CFU/ml Organism 2 MIXED GRAM POSITIVE ORGANISMS COLONY COUNT >100,000 CFU/ml HAF ALVEI LARRY LOPEZI M.I.C. RX M.I.C. RX --------- --- --------- --- AMPICILLIN R AMPICILLIN/SULBACTAM >=32 R CEFAZOLIN R CEFOTAXIME S CIPROFLOXACIN <=0.25 S GENTAMICIN <=1 S LEVOFLOXACIN <=0.12 S MEROPENEM 0.064 S NITROFURANTOIN <=16 S TOBRAMYCIN <=1 S TRIMETHOPRIM/SULFAMETHOXAZOLE <=20 S The patient is on Zosyn. Patient is comfortable and she has no pain. The abdomen is softer and the suprapubic mass continues to get smaller The suprapubic hematoma is getting smaller and the bladder urine is clear. For now continue the same: Keep the Mensah catheter in place, Patient also was restarted on Coumadin . JOAQUIN DE LEON MD Jul 09, 2018 12:44
--- NOTE | 2018-07-09 13:06 | CONS ---
Consult Date/Type/Reason Admit Date/Time May 28, 2018 at 17:52 Initial Consult Date Type of Consultation: Urology Requesting Provider: JULY VALENTIN MD Date/Time of Note DATE: 07/09/18 TIME: 13:05 Subjective NO acute events - ambulatory + hematuria - HH stable - no CP now ROS: No fever, no chills, no nausea, no vomiting, no diarrhea/constipation + he maturia No recent weight changes No chest pain, no PND, no orthopnea - mild sob No dizziness, blurred vision No thirst, no heat or cold intolerance Objective Vitals Vital Signs Date Temp Pulse Resp B/P (MAP) Pulse Ox O2 O2 Flow FiO2 Time Delivery Rate 07/09/18 74 12:31 07/09/18 98.3 102/51 96 11:42 (68) 07/09/18 21 07:33 07/07/18 Room Air 04:00 Intake and Output 07/08/18 07/08/18 07/09/18 1515:00 23:00 07:00 IntakeIntake Total 700 ml OutputOutput Total 650 ml BalanceBalance 50 ml Results/Medications Result Diagram: 07/09/18 0557 07/09/18 0557 Results 24 hrs Laboratory Tests Test 07/09/18 05:57 White Blood Count 4.1 L Red Blood Count 2.80 L Hemoglobin 8.8 L Hematocrit 28.6 L Mean Corpuscular Volume 102.1 H Mean Corpuscular Hemoglobin 31.4 Mean Corpuscular Hemoglobin Concent 30.8 L Red Cell Distribution Width 18.3 H Platelet Count 155 Mean Platelet Volume 9.6 Immature Granulocytes % 1.500 H Neutrophils % 63.5 Lymphocytes % 24.2 Monocytes % 8.1 Eosinophils % 2.2 Basophils % 0.5 Nucleated Red Blood Cells % 0.0 Immature Granulocytes # 0.060 H Neutrophils # 2.6 Lymphocytes # 1.0 Monocytes # 0.3 Eosinophils # 0.1 Basophils # 0.0 Nucleated Red Blood Cells # 0.0 Prothrombin Time 20.7 H Prothrombin Time Ratio 1.6 INR International Normalized Ratio 1.77 Sodium Level 139 Potassium Level 3.9 Chloride Level 103 Carbon Dioxide Level 29 Anion Gap 7 Blood Urea Nitrogen 24 H Creatinine 0.66 Est Glomerular Filtrat Rate mL/min > 60 Glucose Level 148 Calcium Level 8.8 Phosphorus Level 4.2 Magnesium Level 1.7 Home Meds Reported Medications Albuterol Sulfate* (Ventolin HFA*) 18 Gm Hfa.aer.ad, 2 PUFF INHALATION Q4H, #1 INHALER 05/26/18 Ergocalciferol (Vitamin D2) (VITAMIN D2) 50,000 Unit Capsule, 99130 UNIT PO [id number], CAP 05/23/18 Warfarin Sodium* (Coumadin*) 5 Mg Tablet, 5 MG PO Q TUES,THUR,SAT, TAB 05/23/18 Warfarin Sodium* (Coumadin*) 4 Mg Tablet, 4 MG PO Q MON,WED,FRI,SUN, TAB 05/23/18 Furosemide* (Furosemide*) 20 Mg Tablet, 20 MG PO DAILY, #60 TAB TAKE Q 2 DAYS 05/23/18 Simvastatin* (Zocor*) 20 Mg Tablet, 20 MG PO QHS, #30 TAB 05/23/18 Ranitidine Hcl* (Ranitidine Hcl*) 150 Mg Tablet, 150 MG PO HS, #30 TAB 05/23/18 Acetaminophen (Mapap) 500 Mg Capsule, 500 MG PO BID PRN for PAIN, CAP 05/23/18 Levothyroxine Sodium* (Levothyroxine Sodium*) 50 Mcg Tablet, 50 MCG PO BEFORE BREAKFAST, #30 TAB 05/23/18 Spironolactone* (Aldactone*) 25 Mg Tablet, 25 MG PO DAILY, #30 TAB 05/23/18 Beclomethasone Dipropionate (Qvar Redihaler (40 MCG)) 10.6 Gm Hfa.aeroba, 10.6 GM IH DAILY, INH 05/23/18 Amlodipine Besylate* (Norvasc*) 5 Mg Tablet, 5 MG PO BID, TAB 05/23/18 Losartan-Hydrochlorothiazide (Losartan-HCTZ) 100-25 Mg Tab, 1 TAB PO DAILY, TAB 05/23/18 Medications Current Medications Levothyroxine Sodium (Synthroid) 50 mcg BEFORE BREAKFAST PO Last administered on 07/09/18at 05:59; Admin Dose 50 MCG; Start 05/30/18 at 07:00 Mometasone Furoate (Asmanex) 1 puff DAILY INH Last administered on 07/09/18at 08:33; Admin Dose 1 PUFF; Start 05/29/18 at 11:00 Atorvastatin Calcium (Lipitor) 10 mg DAILY@21 PO Last administered on 07/08/18 21:39; Admin Dose 10 MG; Start 05/29/18 at 21:00 Latanoprost (Xalatan) 1 drop HS BOTH EYES Last administered on 07/08/18at 21:37; Admin Dose 1 DROP; Start 06/01/18 at 21:00 Amlodipine Besylate (Norvasc) 5 mg DAILY PO ; Start 06/03/18 at 09:00; Status Hold Pantoprazole (Protonix Tab) 40 mg DAILY@06 PO Last administered on 07/09/18at 05:59; Admin Dose 40 MG; Start 06/05/18 at 06:00 Metoclopramide HCl (Reglan) 5 mg TID PRN IV Nausea; Start 06/06/18 at 11:00 Polyethylene Glycol (Miralax) 17 gm BID PRN PO CONSTIPATION; Start 06/06/18 at 14:00 Bisacodyl (Dulcolax Supp) 10 mg DAILY PRN [place] CONSTIPATION; Start 06/06/18 at 14:00 IV Flush (NS 10 ml) 10 ml PRN PRN IV IV PROTOCOL; Start 06/06/18 at 16:00 Nystatin (Nystatin Susp) 5 ml QID PO Last administered on 07/09/18 08:32; Admin Dose 5 ML; Start 06/06/18 at 17:00 Metoprolol Tartrate (Lopressor) 25 mg BID PO Last administered on 07/09/18 08:33; Admin Dose 25 MG; Start 06/13/18 at 21:00 Metoprolol Tartrate (Lopressor) 5 mg Q4H PRN IV HR>110 Hold SBP<100; Start 06/13/18 at 10:30 Morphine Sulfate (morphine) 6 mg Q2H PRN PO FOR NON CARDIAC PAIN (4-10); Start 06/13/18 at 11:30 Docusate Sodium (Colace) 100 mg DAILY PRN PO CONSTIPATION; Start 06/21/18 at 12:00 Miscellaneous [facility] This patient gomes... PRN PRN XX WOUND CARE; Start 06/21/18 at 16:00 Amiodarone HCl (Cordarone) 200 mg BID PO Last administered on 07/09/18 08:32; Admin Dose 200 MG; Start 06/22/18 at 21:00 Bumetanide (Bumex) 1 mg DAILY@0600 PO Last administered on 07/09/18at 05:59; Admin Dose 1 MG; Start 07/09/18 at 06:00 Warfarin Sodium (Coumadin) 6 mg DAILY@17 PO ; Start 07/09/18 at 17:00 Ferrous Sulfate (Ferrous Sulfate (Ec)) 325 mg BID PO Last administered on 07/09/18at 10:02; Admin Dose 325 MG; Start 07/09/18 at 09:30 Docusate Sodium (Colace) 100 mg DAILY PO ; Start 07/10/18 at 09:00 Assessment/Plan Hospital Course (Demo Recall) 1.cad s/p LHC with no sig obstructive cad - on med rx now - treated - no CP now - stable - on meds 2.HTN - treated - well Rx - well controlled - controlled 3.RP Bleed s/p transfusions now stable - hematuria - possible fistula - urology follows, blood Rx now. STILL with hematuria - urology follows. 4.HL 5.MVR-mechanical - stable by exam - soft click by exam - stable Stable by exam.Soft click. Stable by exam. Con't to follow. 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 Now stabilizing 7.Hypothyroid 8. GOMES-negative Head CT 9. Fevers-with positive ua - now resolved. CECILIA MOCTEZUMA MD Jul 09, 2018 13:06
--- NOTE | 2018-07-09 14:17 | CONS ---
Assessment/Plan Assessment/Plan Assessment/Plan (Daily) Assessment/Plan Assessment/Plan Assessment/Plan (Daily) IMPRESSION: 1. Cirrhosis of liver, etiology is unclear. 2. Coronary artery disease, nonobstructive, with ejection fraction of 40 to 45%, nonischemic. 3. Hypertension. 4. Retroperitoneal bleed. 5. Mitral valve replacement due to mechanical mitral valve. 6. Hypothyroidism. 7. Urinary tract infection. 8. Paroxysmal atrial fibrillation, rate is controlled. 9. Hematuria. 10. Status post rupture of the urinary bladder. 11. Epistaxis, improved. Plan Continue present care Hepatitis panel has been negative Awaiting for further workup for chronic liver disease DELGADO, anti-smooth muscle antibody negative Consultation Date/Type/Reason Admit Date/Time May 28, 2018 at 17:52 Initial Consult Date 06/03/18 Requesting Provider: JULY VALENTIN MD Date/Time of Note DATE: 07/09/18 TIME: 14:16 24 HR Interval Summary Constitutional: no complaints, improved Exam/Review of Systems Exam Vitals Vital Signs Date Temp Pulse Resp B/P (MAP) Pulse Ox O2 O2 Flow FiO2 Time Delivery Rate 07/09/18 74 12:31 07/09/18 98.3 102/51 96 11:42 (68) 07/09/18 21 07:33 07/07/18 Room Air 04:00 Intake and Output 07/08/18 07/08/18 07/09/18 1515:00 23:00 07:00 IntakeIntake Total 700 ml OutputOutput Total 650 ml BalanceBalance 50 ml Constitutional: alert, oriented, well developed Psych: no complaints, nl mood/affect Head: normocephalic, atraumatic Eyes: nl conjunctiva, EOMI, nl lids, nl sclera, PERRL ENMT: nl external ears & nose, nl lips & teeth, nl nasal mucosa & septum Neck: supple, non-tender Respiratory: clear to auscultation, normal air movement Cardiovascular: regular rate and rhythm, nl pulses Gastrointestinal: soft, nl liver, spleen, non-tender Musculoskeletal: nl extremities to inspection, nl gait and stance Extremities: normal pulses 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, nl mental status, nl speech, nl strength Skin: nl turgor; No rash or lesions Lymph: nl lymph nodes Results Result Diagram: 07/09/18 0557 07/09/18 0557 Results 24hrs Laboratory Tests Test 07/09/18 05:57 White Blood Count 4.1 L Red Blood Count 2.80 L Hemoglobin 8.8 L Hematocrit 28.6 L Mean Corpuscular Volume 102.1 H Mean Corpuscular Hemoglobin 31.4 Mean Corpuscular Hemoglobin Concent 30.8 L Red Cell Distribution Width 18.3 H Platelet Count 155 Mean Platelet Volume 9.6 Immature Granulocytes % 1.500 H Neutrophils % 63.5 Lymphocytes % 24.2 Monocytes % 8.1 Eosinophils % 2.2 Basophils % 0.5 Nucleated Red Blood Cells % 0.0 Immature Granulocytes # 0.060 H Neutrophils # 2.6 Lymphocytes # 1.0 Monocytes # 0.3 Eosinophils # 0.1 Basophils # 0.0 Nucleated Red Blood Cells # 0.0 Prothrombin Time 20.7 H Prothrombin Time Ratio 1.6 INR International Normalized Ratio 1.77 Sodium Level 139 Potassium Level 3.9 Chloride Level 103 Carbon Dioxide Level 29 Anion Gap 7 Blood Urea Nitrogen 24 H Creatinine 0.66 Est Glomerular Filtrat Rate mL/min > 60 Glucose Level 148 Calcium Level 8.8 Phosphorus Level 4.2 Magnesium Level 1.7 Medications Medication Current Medications Levothyroxine Sodium (Synthroid) 50 mcg BEFORE BREAKFAST PO Last administered on 07/09/18at 05:59; Admin Dose 50 MCG; Start 05/30/18 at 07:00 Mometasone Furoate (Asmanex) 1 puff DAILY INH Last administered on 07/09/18at 08:33; Admin Dose 1 PUFF; Start 05/29/18 at 11:00 Atorvastatin Calcium (Lipitor) 10 mg DAILY@21 PO Last administered on 07/08/18at 21:39; Admin Dose 10 MG; Start 05/29/18 at 21:00 Latanoprost (Xalatan) 1 drop HS BOTH EYES Last administered on 07/08/18at 21:37; Admin Dose 1 DROP; Start 06/01/18 at 21:00 Amlodipine Besylate (Norvasc) 5 mg DAILY PO ; Start 06/03/18 at 09:00; Status Hold Pantoprazole (Protonix Tab) 40 mg DAILY@06 PO Last administered on 07/09/18at 05:59; Admin Dose 40 MG; Start 06/05/18 at 06:00 Metoclopramide HCl (Reglan) 5 mg TID PRN IV Nausea; Start 06/06/18 at 11:00 Polyethylene Glycol (Miralax) 17 gm BID PRN PO CONSTIPATION; Start 06/06/18 at 14:00 Bisacodyl (Dulcolax Supp) 10 mg DAILY PRN [place] CONSTIPATION; Start 06/06/18 at 14:00 IV Flush (NS 10 ml) 10 ml PRN PRN IV IV PROTOCOL; Start 06/06/18 at 16:00 Nystatin (Nystatin Susp) 5 ml QID PO Last administered on 07/09/18at 13:08; Admin Dose 5 ML; Start 06/06/18 at 17:00 Metoprolol Tartrate (Lopressor) 25 mg BID PO Last administered on 07/09/18at 08:33; Admin Dose 25 MG; Start 06/13/18 at 21:00 Metoprolol Tartrate (Lopressor) 5 mg Q4H PRN IV HR>110 Hold SBP<100; Start 06/13/18 at 10:30 Morphine Sulfate (morphine) 6 mg Q2H PRN PO FOR NON CARDIAC PAIN (4-10); Start 06/13/18 at 11:30 Docusate Sodium (Colace) 100 mg DAILY PRN PO CONSTIPATION; Start 06/21/18 at 12:00 Miscellaneous Information (Pending [facility] For Wound Care) This patient gomes... PRN PRN XX WOUND CARE; Start 06/21/18 at 16:00 Amiodarone HCl (Cordarone) 200 mg BID PO Last administered on 07/09/18at 08:32; Admin Dose 200 MG; Start 06/22/18 at 21:00 Bumetanide (Bumex) 1 mg DAILY@0600 PO Last administered on 07/09/18at 05:59; Admin Dose 1 MG; Start 07/09/18 at 06:00 Warfarin Sodium (Coumadin) 6 mg DAILY@17 PO ; Start 07/09/18 at 17:00 Ferrous Sulfate (Ferrous Sulfate (Ec)) 325 mg BID PO Last administered on 07/09/18at 10:02; Admin Dose 325 MG; Start 07/09/18 at 09:30 Docusate Sodium (Colace) 100 mg DAILY PO ; Start 07/10/18 at 09:00 ALEXANDRU CHAPIN MD Jul 09, 2018 14:17
--- NOTE | 2018-07-09 15:26 | CONS ---
Assessment/Plan Assessment/Plan Hospital Course (Demo Recall) # sepsis, cardiopulmonary - s/p severe sepsis due to UTI, resolved - s/p SIRS due to acute blood loss, resolved - s/p L heart catheterization on 05/27/2018 showing no significant obstructive CAD - CAD - s/p CABG in [place] in 1982 - H/o MVR with mechanical valve, in 1999 - Hypertension - PAF - in [place] - Asthma # urology/renal, GI - hematuria caused by ruptured urinary bladder - CT abd pelvis on 07/02/18 showed large extravasation of contrast administered through a F/c into the large anterior pelvic fluid collection is demonstrated, consistent with bladder rupture. no contrast seen within the vagina to suggest fistulization with the overlying urinary bladder. - UTI due to hafnai alvei and pediococci on 06/30/18. Pt completed pip/tazo (07/02/18-07/05/2018) - S/p UTI due to E. coli. 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 Hughes Consultation Date/Type/Reason Admit Date/Time May 28, 2018 at 17:52 Initial Consult Date 06/02/18 Type of Consult Infectious Disease Requesting Provider: JULY VALENTIN MD Date/Time of Note DATE: 07/09/18 TIME: 15:25 24 HR Interval Summary Free Text/Dictation Hematuria is slowly improving. No other acute issues per d/w nursing. Pt denies pain and has no new complaints. Exam/Review of Systems Exam Vitals Vital Signs Date Temp Pulse Resp B/P (MAP) Pulse Ox O2 O2 Flow FiO2 Time Delivery Rate 07/09/18 74 12:31 07/09/18 98.3 102/51 96 11:42 (68) 07/09/18 21 07:33 07/07/18 Room Air 04:00 Intake and Output 07/08/18 07/08/18 07/09/18 1515:00 23:00 07:00 IntakeIntake Total 700 ml OutputOutput Total 650 ml BalanceBalance 50 ml Exam Constitutional: alert, oriented, well developed, other (lying in bed in no acute distress; Spouse at bedside) Psych: no complaints, nl mood/affect Head: normocephalic, atraumatic Eyes: nl conjunctiva, nl lids, nl sclera ENMT: nl external ears & nose, nl nasal mucosa & septum, mucosa pink and moist Neck: supple, non-tender (not swollen) Respiratory: clear to auscultation, normal air movement Cardiovascular: regular rate and rhythm, nl pulses Gastrointestinal: soft, non-tender Genitourinary - Female: other ([place] with hematuria but no clots) Musculoskeletal: nl extremities to inspection Extremities: normal pulses, edema Neurological: 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, nl mental status, nl speech Skin: nl turgor, ecchymosis (scattered); No rash or lesions Results Result Diagram: 07/09/18 0557 07/09/18 0557 Results 24hrs Laboratory Tests Test 07/09/18 05:57 White Blood Count 4.1 L Red Blood Count 2.80 L Hemoglobin 8.8 L Hematocrit 28.6 L Mean Corpuscular Volume 102.1 H Mean Corpuscular Hemoglobin 31.4 Mean Corpuscular Hemoglobin Concent 30.8 L Red Cell Distribution Width 18.3 H Platelet Count 155 Mean Platelet Volume 9.6 Immature Granulocytes % 1.500 H Neutrophils % 63.5 Lymphocytes % 24.2 Monocytes % 8.1 Eosinophils % 2.2 Basophils % 0.5 Nucleated Red Blood Cells % 0.0 Immature Granulocytes # 0.060 H Neutrophils # 2.6 Lymphocytes # 1.0 Monocytes # 0.3 Eosinophils # 0.1 Basophils # 0.0 Nucleated Red Blood Cells # 0.0 Prothrombin Time 20.7 H Prothrombin Time Ratio 1.6 INR International Normalized Ratio 1.77 Sodium Level 139 Potassium Level 3.9 Chloride Level 103 Carbon Dioxide Level 29 Anion Gap 7 Blood Urea Nitrogen 24 H Creatinine 0.66 Est Glomerular Filtrat Rate mL/min > 60 Glucose Level 148 Calcium Level 8.8 Phosphorus Level 4.2 Magnesium Level 1.7 Medications Medication Current Medications Levothyroxine Sodium (Synthroid) 50 mcg BEFORE BREAKFAST PO Last administered on 07/09/18 05:59; Admin Dose 50 MCG; Start 05/30/18 at 07:00 Mometasone Furoate (Asmanex) 1 puff DAILY INH Last administered on 07/09/18 08:33; Admin Dose 1 PUFF; Start 05/29/18 at 11:00 Atorvastatin Calcium (Lipitor) 10 mg DAILY@21 PO Last administered on 07/08/18 21:39; Admin Dose 10 MG; Start 05/29/18 at 21:00 Latanoprost (Xalatan) 1 drop HS BOTH EYES Last administered on 07/08/18 21:37; Admin Dose 1 DROP; Start 06/01/18 at 21:00 Amlodipine Besylate (Norvasc) 5 mg DAILY PO ; Start 06/03/18 at 09:00; Status Hold Pantoprazole (Protonix Tab) 40 mg DAILY@06 PO Last administered on 07/09/18 05:59; Admin Dose 40 MG; Start 06/05/18 at 06:00 Metoclopramide HCl (Reglan) 5 mg TID PRN IV Nausea; Start 06/06/18 at 11:00 Polyethylene Glycol (Miralax) 17 gm BID PRN PO CONSTIPATION; Start 06/06/18 at 14:00 Bisacodyl (Dulcolax Supp) 10 mg DAILY PRN [place] CONSTIPATION; Start 06/06/18 at 14:00 IV Flush (NS 10 ml) 10 ml PRN PRN IV IV PROTOCOL; Start 06/06/18 at 16:00 Nystatin (Nystatin Susp) 5 ml QID PO Last administered on 07/09/18 13:08; Admin Dose 5 ML; Start 06/06/18 at 17:00 Metoprolol Tartrate (Lopressor) 25 mg BID PO Last administered on 07/09/18 08:33; Admin Dose 25 MG; Start 06/13/18 at 21:00 Metoprolol Tartrate (Lopressor) 5 mg Q4H PRN IV HR>110 Hold SBP<100; Start 06/13/18 at 10:30 Morphine Sulfate (morphine) 6 mg Q2H PRN PO FOR NON CARDIAC PAIN (4-10); Start 06/13/18 at 11:30 Docusate Sodium (Colace) 100 mg DAILY PRN PO CONSTIPATION; Start 06/21/18 at 12:00 Miscellaneous Information (Pending [facility] Order For Wound Care) This patient gomes... PRN PRN XX WOUND CARE; Start 06/21/18 at 16:00 Amiodarone HCl (Cordarone) 200 mg BID PO Last administered on 07/09/18at 08:32; Admin Dose 200 MG; Start 06/22/18 at 21:00 Bumetanide (Bumex) 1 mg DAILY@0600 PO Last administered on 07/09/18at 05:59; Admin Dose 1 MG; Start 07/09/18 at 06:00 Warfarin Sodium (Coumadin) 6 mg DAILY@17 PO ; Start 07/09/18 at 17:00 Ferrous Sulfate (Ferrous Sulfate (Ec)) 325 mg BID PO Last administered on 07/09/18at 10:02; Admin Dose 325 MG; Start 07/09/18 at 09:30 Docusate Sodium (Colace) 100 mg DAILY PO ; Start 07/10/18 at 09:00 KISHORE JARAMILLO NP Jul 09, 2018 15:26
--- NOTE | 2018-07-09 15:37 | PN ---
Date/Time of Note Date/Time of Note DATE: 07/08/18 TIME: 15:46 Assessment/Plan VTE Prophylaxis Risk score (from Ns)>0 risk: 4 SCD applied (from [facility] [place]): Yes SCD contraindicated: other Pharmacological prophylaxis: other Pharm contraindication: other Lines/Catheters IV Catheter Type (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 Continue Mens[place], monitor. - per Dr. Ashford in urology consultation. -Anemia of acute blood loss, transfuse PRN, monitor H&H. -S/p UTI, completed treatment with Zosyn. - per Dr. Castellanos in infection disease consultation. -Liver cirrhosis per CT - per Dr Cruz in GI consultation. -S/p Nose/oropharyngeal bleed on 06/11/2018, stopped after heparin was held. -Retroperitoneal bleed secondary to vascular injury status post stent placement. Monitor H and H. S/p eval by Dr. Kilpatrick - per vascular surgery consultation. -Status post left heart catheterization with no significant obstructive coronary artery disease by Dr. Moreno on 05/27/2018. - per cardio -Anemia of acute blood loss, status post blood transfusion, continue to monitor hemoglobin and hematocrit. -Urinary incontinence. -Acute illness myopathy -Status post mitral valve replacement with mechanical valve in 1999 in [facility]. Continue Coumadin, monitor PT/INR. -HTN, continue metoprolol -Hyperlipidemia -Hypothyroidism, continue levothyroxine -History of asthma Further recommendations based on clinical course. Plan of care discussed with Dr. Painter. Result Diagram: 07/08/18 0640 07/05/18 0541 Results 24hrs Laboratory Tests Test 07/08/18 06:40 07/08/18 06:41 White Blood Count 4.7 L Red Blood Count 2.92 L Hemoglobin 9.2 L Hematocrit 29.4 L Mean Corpuscular Volume 100.7 Mean Corpuscular Hemoglobin 31.5 Mean Corpuscular Hemoglobin Concent 31.3 L Red Cell Distribution Width 18.6 H Platelet Count 166 Mean Platelet Volume 9.8 Immature Granulocytes % 1.700 H Neutrophils % 63.0 Lymphocytes % 25.2 Monocytes % 7.2 Eosinophils % 2.3 Basophils % 0.6 Nucleated Red Blood Cells % 0.0 Immature Granulocytes # 0.080 H Neutrophils # 3.0 Lymphocytes # 1.2 Monocytes # 0.3 Eosinophils # 0.1 Basophils # 0.0 Nucleated Red Blood Cells # 0.0 Prothrombin Time 24.6 #H Prothrombin Time Ratio 1.9 INR International Normalized Ratio 2.21 Hepatitis B Surface Antigen NEGATIVE Hepatitis B Core Total Antibody NEGATIVE Hepatitis C Antibody NEGATIVE Subjective 24 Hr Interval Summary Free Text/Dictation nad - vss - Hgb 9.2 seems comfortable denies any pain; still have hematuria and is improving no new events reported last night per staff Constitutional: requiring O2, other (general weakess) Eyes: no complaints ENT: no complaints Respiratory: no complaints Cardiovascular: no complaints Gastrointestinal: no complaints Genitourinary: no complaints Musculoskeletal: no complaints Skin: no complaints Neurologic: no complaints Psychological: no complaints Immunologic: no complaints Exam/Review of Systems Exam Vitals Vital Signs Date Temp Pulse Resp B/P (MAP) Pulse Ox O2 O2 Flow FiO2 Time Delivery Rate 07/08/18 58 13:54 07/08/18 98.0 19 128/60 92 11:24 (82) 07/07/18 Room Air 04:00 Intake and Output 07/07/18 07/07/18 07/08/18 1515:00 23:00 07:00 IntakeIntake Total 820 ml 360 ml OutputOutput Total 700 ml 600 ml BalanceBalance 120 ml -240 ml Constitutional: alert, oriented, well developed Psych: nl mood/affect Head: atraumatic Eyes: nl lids, nl sclera ENMT: nl external ears & nose Neck: non-tender Respiratory: clear to auscultation Cardiovascular: nl pulses, other (s1s2) Gastrointestinal: soft, non-tender Musculoskeletal: muscle weakness Extremities: normal pulses Neurological: nl mental status, nl speech Skin: nl turgor Lymph: nontender Results Results 24hrs Laboratory Tests Test 07/08/18 06:40 07/08/18 06:41 White Blood Count 4.7 L Red Blood Count 2.92 L Hemoglobin 9.2 L Hematocrit 29.4 L Mean Corpuscular Volume 100.7 Mean Corpuscular Hemoglobin 31.5 Mean Corpuscular Hemoglobin Concent 31.3 L Red Cell Distribution Width 18.6 H Platelet Count 166 Mean Platelet Volume 9.8 Immature Granulocytes % 1.700 H Neutrophils % 63.0 Lymphocytes % 25.2 Monocytes % 7.2 Eosinophils % 2.3 Basophils % 0.6 Nucleated Red Blood Cells % 0.0 Immature Granulocytes # 0.080 H Neutrophils # 3.0 Lymphocytes # 1.2 Monocytes # 0.3 Eosinophils # 0.1 Basophils # 0.0 Nucleated Red Blood Cells # 0.0 Prothrombin Time 24.6 #H Prothrombin Time Ratio 1.9 INR International Normalized Ratio 2.21 Hepatitis B Surface Antigen NEGATIVE Hepatitis B Core Total Antibody NEGATIVE Hepatitis C Antibody NEGATIVE Medications Medication Current Medications Levothyroxine Sodium (Synthroid) 50 mcg BEFORE BREAKFAST PO Last administered on 07/08/18 06:42; Admin Dose 50 MCG; Start 05/30/18 at 07:00 Mometasone Furoate (Asmanex) 1 puff DAILY INH Last administered on 07/08/18 08:48; Admin Dose 1 PUFF; Start 05/29/18 at 11:00 Atorvastatin Calcium (Lipitor) 10 mg DAILY@21 PO Last administered on 07/07/18 21:13; Admin Dose 10 MG; Start 05/29/18 at 21:00 Latanoprost (Xalatan) 1 drop HS BOTH EYES Last administered on 07/07/18 21:14; Admin Dose 1 DROP; Start 06/01/18 at 21:00 Amlodipine Besylate (Norvasc) 5 mg DAILY PO ; Start 06/03/18 at 09:00; Status Hold Pantoprazole (Protonix Tab) 40 mg DAILY@06 PO Last administered on 07/08/18 06:42; Admin Dose 40 MG; Start 06/05/18 at 06:00 Metoclopramide HCl (Reglan) 5 mg TID PRN IV Nausea; Start 06/06/18 at 11:00 Polyethylene Glycol (Miralax) 17 gm BID PRN PO CONSTIPATION; Start 06/06/18 at 14:00 Bisacodyl (Dulcolax Supp) 10 mg DAILY PRN [place] CONSTIPATION; Start 06/06/18 at 14:00 IV Flush (NS 10 ml) 10 ml PRN PRN IV IV PROTOCOL; Start 06/06/18 at 16:00 Nystatin (Nystatin Susp) 5 ml QID PO Last administered on 07/08/18at 12:38; Admin Dose 5 ML; Start 06/06/18 at 17:00 Metoprolol Tartrate (Lopressor) 25 mg BID PO Last administered on 07/08/18at 08:49; Admin Dose 25 MG; Start 06/13/18 at 21:00 Metoprolol Tartrate (Lopressor) 5 mg Q4H PRN IV HR>110 Hold SBP<100; Start 06/13/18 at 10:30 Morphine Sulfate (morphine) 6 mg Q2H PRN PO FOR NON CARDIAC PAIN (4-10); Start 06/13/18 at 11:30 Docusate Sodium (Colace) 100 mg DAILY PRN PO CONSTIPATION; Start 06/21/18 at 12:00 Miscellaneous Information (Pending [facility] Order For Wound Care) This patient gomes... PRN PRN XX WOUND CARE; Start 06/21/18 at 16:00 Amiodarone HCl (Cordarone) 200 mg BID PO Last administered on 07/08/18at 08:49; Admin Dose 200 MG; Start 06/22/18 at 21:00 Miscellaneous Information (*Order Clarification Bulletin) MEDICATION REQUIRES CLARIFICATION:PLE... Q8H XX Last administered on 06/30/18at 12:00; Admin Dose 1 EA; Start 06/26/18 at 12:00 Warfarin Sodium (Coumadin) 5 mg DAILY@17 PO Last administered on 07/05/18at 16:58; Admin Dose 5 MG; Start 07/05/18 at 17:00 Miscellaneous Information (* Miscellaneous Pharmacy Order) METOCLOPRAMIDE ORDER EXPIRES ON ... Q12H XX ; Start 07/06/18 at 12:30 Bumetanide (Bumex) 1 mg DAILY@0600 PO ; Start 07/09/18 at 06:00 DELICIA MATUTE Jul 08, 2018 15:56
--- NOTE | 2018-07-09 15:37 | PN ---
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 Continue Mens[place], monitor. - per Dr. Ashford in urology consultation. -Anemia of acute blood loss, transfuse PRN, monitor H&H. -S/p UTI, completed treatment with Zosyn. - per Dr. Castellanos in infection disease consultation. -Liver cirrhosis per CT - per Dr Cruz in GI consultation. -S/p Nose/oropharyngeal bleed on 06/11/2018, stopped after heparin was held. -Retroperitoneal bleed secondary to vascular injury status post stent placement. Monitor H and H. S/p eval by Dr. Kilpatrick - per vascular surgery consultation. -Status post left heart catheterization with no significant obstructive coronary artery disease by Dr. Moreno on 05/27/2018. - per cardio -Anemia of acute blood loss, status post blood transfusion, continue to monitor hemoglobin and hematocrit. -Urinary incontinence. -Acute illness myopathy -Status post mitral valve replacement with mechanical valve in 1999 in [facility]. Continue Coumadin, monitor PT/INR. -HTN, continue metoprolol -Hyperlipidemia -Hypothyroidism, continue levothyroxine -History of asthma Further recommendations based on clinical course. Plan of care discussed with Dr. Painter. nad - vss - Hgb 8.8 seems comfortable denies any pain; still have hematuria and is improving no new events reported last night per staff Result Diagram: 07/09/18 0557 07/09/18 0557 Results 24hrs Laboratory Tests Test 07/09/18 05:57 White Blood Count 4.1 L Red Blood Count 2.80 L Hemoglobin 8.8 L Hematocrit 28.6 L Mean Corpuscular Volume 102.1 H Mean Corpuscular Hemoglobin 31.4 Mean Corpuscular Hemoglobin Concent 30.8 L Red Cell Distribution Width 18.3 H Platelet Count 155 Mean Platelet Volume 9.6 Immature Granulocytes % 1.500 H Neutrophils % 63.5 Lymphocytes % 24.2 Monocytes % 8.1 Eosinophils % 2.2 Basophils % 0.5 Nucleated Red Blood Cells % 0.0 Immature Granulocytes # 0.060 H Neutrophils # 2.6 Lymphocytes # 1.0 Monocytes # 0.3 Eosinophils # 0.1 Basophils # 0.0 Nucleated Red Blood Cells # 0.0 Prothrombin Time 20.7 H Prothrombin Time Ratio 1.6 INR International Normalized Ratio 1.77 Sodium Level 139 Potassium Level 3.9 Chloride Level 103 Carbon Dioxide Level 29 Anion Gap 7 Blood Urea Nitrogen 24 H Creatinine 0.66 Est Glomerular Filtrat Rate mL/min > 60 Glucose Level 148 Calcium Level 8.8 Phosphorus Level 4.2 Magnesium Level 1.7 Subjective 24 Hr Interval Summary Free Text/Dictation - nad - vss - Hgb trended down to 8.8 today; cont to monitor seems comfortable denies any pain; still have hematuria and is improving no new events reported last night per staff Subjective hx not possible: pt non-verbal Constitutional: requiring O2 Eyes: no complaints ENT: no complaints Respiratory: no complaints Cardiovascular: no complaints Gastrointestinal: other (blood in urine) Musculoskeletal: other (generelized weakness) Neurologic: no complaints Endocrine: no complaints Lymphatic: no complaints Psychological: nl mood/affect Immunologic: no complaints Exam/Review of Systems Exam Vitals Vital Signs Date Temp Pulse Resp B/P (MAP) Pulse Ox O2 O2 Flow FiO2 Time Delivery Rate 07/09/18 74 12:31 07/09/18 98.3 102/51 96 11:42 (68) 07/09/18 21 07:33 07/07/18 Room Air 04:00 Intake and Output 07/08/18 07/08/18 07/09/18 1515:00 23:00 07:00 IntakeIntake Total 700 ml OutputOutput Total 650 ml BalanceBalance 50 ml Constitutional: alert, oriented, well developed Psych: nl mood/affect Head: atraumatic Eyes: nl lids, nl sclera ENMT: nl external ears & nose Neck: non-tender Respiratory: clear to auscultation Cardiovascular: nl pulses, other (s1s2) Gastrointestinal: soft, non-tender Musculoskeletal: muscle weakness Extremities: normal pulses Neurological: nl speech, other (alert/responsive) Lymph: nontender Results Results 24hrs Laboratory Tests Test 07/09/18 05:57 White Blood Count 4.1 L Red Blood Count 2.80 L Hemoglobin 8.8 L Hematocrit 28.6 L Mean Corpuscular Volume 102.1 H Mean Corpuscular Hemoglobin 31.4 Mean Corpuscular Hemoglobin Concent 30.8 L Red Cell Distribution Width 18.3 H Platelet Count 155 Mean Platelet Volume 9.6 Immature Granulocytes % 1.500 H Neutrophils % 63.5 Lymphocytes % 24.2 Monocytes % 8.1 Eosinophils % 2.2 Basophils % 0.5 Nucleated Red Blood Cells % 0.0 Immature Granulocytes # 0.060 H Neutrophils # 2.6 Lymphocytes # 1.0 Monocytes # 0.3 Eosinophils # 0.1 Basophils # 0.0 Nucleated Red Blood Cells # 0.0 Prothrombin Time 20.7 H Prothrombin Time Ratio 1.6 INR International Normalized Ratio 1.77 Sodium Level 139 Potassium Level 3.9 Chloride Level 103 Carbon Dioxide Level 29 Anion Gap 7 Blood Urea Nitrogen 24 H Creatinine 0.66 Est Glomerular Filtrat Rate mL/min > 60 Glucose Level 148 Calcium Level 8.8 Phosphorus Level 4.2 Magnesium Level 1.7 Medications Medication Current Medications Levothyroxine Sodium (Synthroid) 50 mcg BEFORE BREAKFAST PO Last administered on 07/09/18at 05:59; Admin Dose 50 MCG; Start 05/30/18 at 07:00 Mometasone Furoate (Asmanex) 1 puff DAILY INH Last administered on 07/09/18at 08:33; Admin Dose 1 PUFF; Start 05/29/18 at 11:00 Atorvastatin Calcium (Lipitor) 10 mg DAILY@21 PO Last administered on 07/08/18at 21:39; Admin Dose 10 MG; Start 05/29/18 at 21:00 Latanoprost (Xalatan) 1 drop HS BOTH EYES Last administered on 07/08/18at 21:37; Admin Dose 1 DROP; Start 06/01/18 at 21:00 Amlodipine Besylate (Norvasc) 5 mg DAILY PO ; Start 06/03/18 at 09:00; Status Hold Pantoprazole (Protonix Tab) 40 mg DAILY@06 PO Last administered on 07/09/18at 05:59; Admin Dose 40 MG; Start 06/05/18 at 06:00 Metoclopramide HCl (Reglan) 5 mg TID PRN IV Nausea; Start 06/06/18 at 11:00 Polyethylene Glycol (Miralax) 17 gm BID PRN PO CONSTIPATION; Start 06/06/18 at 14:00 Bisacodyl (Dulcolax Supp) 10 mg DAILY PRN [place] CONSTIPATION; Start 06/06/18 at 14:00 IV Flush (NS 10 ml) 10 ml PRN PRN IV IV PROTOCOL; Start 06/06/18 at 16:00 Nystatin (Nystatin Susp) 5 ml QID PO Last administered on 07/09/18at 13:08; Admin Dose 5 ML; Start 06/06/18 at 17:00 Metoprolol Tartrate (Lopressor) 25 mg BID PO Last administered on 07/09/18 08:33; Admin Dose 25 MG; Start 06/13/18 at 21:00 Metoprolol Tartrate (Lopressor) 5 mg Q4H PRN IV HR>110 Hold SBP<100; Start 06/13/18 at 10:30 Morphine Sulfate (morphine) 6 mg Q2H PRN PO FOR NON CARDIAC PAIN (4-10); Start 06/13/18 at 11:30 Docusate Sodium (Colace) 100 mg DAILY PRN PO CONSTIPATION; Start 06/21/18 at 12:00 Miscellaneous Information (Pending [facility] Order For Wound Care) This patient gomes... PRN PRN XX WOUND CARE; Start 06/21/18 at 16:00 Amiodarone HCl (Cordarone) 200 mg BID PO Last administered on 07/09/18at 08:32; Admin Dose 200 MG; Start 06/22/18 at 21:00 Bumetanide (Bumex) 1 mg DAILY@0600 PO Last administered on 07/09/18at 05:59; Admin Dose 1 MG; Start 07/09/18 at 06:00 Warfarin Sodium (Coumadin) 6 mg DAILY@17 PO ; Start 07/09/18 at 17:00 Ferrous Sulfate (Ferrous Sulfate (Ec)) 325 mg BID PO Last administered on 07/09/18at 10:02; Admin Dose 325 MG; Start 07/09/18 at 09:30 Docusate Sodium (Colace) 100 mg DAILY PO ; Start 07/10/18 at 09:00 DELICIA MATUTE Jul 09, 2018 15:37
[2018-07-09] MEDS ORDERED: WARFARIN 5 MG TAB PO SCH (17:00)
[2018-07-09] MEDS: WARFARIN 3 MG TAB PO SCH (17:37)
[2018-07-09] MEDS: LATANOPROST 0.005% 2.5 ML OPH BOTH EYES SCH (22:06)
[2018-07-09] MEDS: ATORVASTATIN 10 MG TAB PO SCH (22:07)
[2018-07-10] VITALS (11 sets, daily range): BP systolic 106–134; BP diastolic 55–60; PULSE 62–81; RESP 19–22
[2018-07-10] MEDS: LEVOTHYROXINE 50 MCG TAB PO SCH (06:05)
[2018-07-10] MEDS: BUMETANIDE 1 MG TAB PO SCH (06:05)
[2018-07-10] MEDS: PANTOPRAZOLE (EC) 40 MG TAB PO SCH (06:05)
[2018-07-10] MEDS: MOMETASONE 0.24 GM INHALER INH SCH (09:14)
[2018-07-10] MEDS: NYSTATIN SUSP 5 ML CUP PO SCH ×4 (09:14→22:00)
[2018-07-10] MEDS: FERROUS SULFATE (EC) 325 MG TAB PO SCH ×2 (09:14→21:59)
[2018-07-10] MEDS: AMIODARONE 200 MG TAB PO SCH ×2 (09:15→22:00)
[2018-07-10] MEDS: METOPROLOL 25 MG TAB PO SCH ×2 (09:15→22:00)
[2018-07-10] MEDS: DOCUSATE SODIUM 100 MG CAP PO SCH (09:15)
[2018-07-10] MEDS ORDERED: BUMETANIDE 1 MG INJ IV ONE (10:30)
--- NOTE | 2018-07-10 12:40 | CONS ---
Assessment/Plan Assessment/Plan Assessment/Plan (Daily) Assessment/Plan (Daily) IMPRESSION: 1. Cirrhosis of liver, etiology is unclear. 2. Coronary artery disease, nonobstructive, with ejection fraction of 40 to 45%, nonischemic. 3. Hypertension. 4. Retroperitoneal bleed. 5. Mitral valve replacement due to mechanical mitral valve. 6. Hypothyroidism. 7. Urinary tract infection. 8. Paroxysmal atrial fibrillation, rate is controlled. 9. Hematuria. 10. Status post rupture of the urinary bladder. 11. Epistaxis, improved. 12. Positive stool guaiac may be from epistaxis Plan Continue present care Hepatitis panel has been negative Awaiting for further workup for chronic liver disease Antimitochondrial antibody, anti-smooth muscle antibody negative Consultation Date/Type/Reason Admit Date/Time May 28, 2018 at 17:52 Initial Consult Date 06/03/18 Requesting Provider: JULY VALENTIN MD Date/Time of Note DATE: 07/10/18 TIME: 12:39 24 HR Interval Summary Constitutional: no complaints, improved Exam/Review of Systems Exam Vitals Vital Signs Date Temp Pulse Resp B/P (MAP) Pulse Ox O2 O2 Flow FiO2 Time Delivery Rate 07/10/18 98.0 72 22 106/56 Room Air 11:35 (73) 07/10/18 96 07:38 Intake and Output 07/09/18 07/09/18 07/10/18 1515:00 23:00 07:00 IntakeIntake Total 860 ml 300 ml OutputOutput Total 1500 ml 700 ml BalanceBalance -640 ml -400 ml Constitutional: alert, oriented, well developed Psych: no complaints, nl mood/affect Head: normocephalic, atraumatic Eyes: nl conjunctiva, EOMI, nl lids, nl sclera, PERRL ENMT: nl external ears & nose, nl lips & teeth, nl nasal mucosa & septum Neck: supple, non-tender Respiratory: clear to auscultation, normal air movement Cardiovascular: regular rate and rhythm, nl pulses Gastrointestinal: soft, nl liver, spleen, non-tender Musculoskeletal: nl extremities to inspection, nl gait and stance Extremities: normal pulses Neurological: M[employer]GAGE [employer]OR II-XII intact, nl mental status, nl speech, nl strength Skin: nl turgor; No rash or lesions Lymph: nl lymph nodes Results Result Diagram: 07/10/18 0606 07/09/18 0557 Results 24hrs Laboratory Tests Test 07/10/18 06:06 White Blood Count 4.6 L Red Blood Count 2.83 L Hemoglobin 9.0 L Hematocrit 28.5 L Mean Corpuscular Volume 100.7 Mean Corpuscular Hemoglobin 31.8 Mean Corpuscular Hemoglobin Concent 31.6 L Red Cell Distribution Width 18.3 H Platelet Count 159 Mean Platelet Volume 9.8 Immature Granulocytes % 1.500 H Neutrophils % 60.2 Lymphocytes % 28.2 Monocytes % 7.8 Eosinophils % 1.9 Basophils % 0.4 Nucleated Red Blood Cells % 0.0 Immature Granulocytes # 0.070 H Neutrophils # 2.8 Lymphocytes # 1.3 Monocytes # 0.4 Eosinophils # 0.1 Basophils # 0.0 Nucleated Red Blood Cells # 0.0 Medications Medication Current Medications Levothyroxine Sodium (Synthroid) 50 mcg BEFORE BREAKFAST PO Last administered on 07/10/18at 06:05; Admin Dose 50 MCG; Start 05/30/18 at 07:00 Mometasone Furoate (Asmanex) 1 puff DAILY INH Last administered on 07/10/18at 09:14; Admin Dose 1 PUFF; Start 05/29/18 at 11:00 Atorvastatin Calcium (Lipitor) 10 mg DAILY@21 PO Last administered on 07/09/18at 22:07; Admin Dose 10 MG; Start 05/29/18 at 21:00 Latanoprost (Xalatan) 1 drop HS BOTH EYES Last administered on 07/09/18at 22:06; Admin Dose 1 DROP; Start 06/01/18 at 21:00 Amlodipine Besylate (Norvasc) 5 mg DAILY PO ; Start 06/03/18 at 09:00; Status Hold Pantoprazole (Protonix Tab) 40 mg DAILY@06 PO Last administered on 07/10/18at 06:05; Admin Dose 40 MG; Start 06/05/18 at 06:00 Metoclopramide HCl (Reglan) 5 mg TID PRN IV Nausea; Start 06/06/18 at 11:00 Polyethylene Glycol (Miralax) 17 gm BID PRN PO CONSTIPATION; Start 06/06/18 at 14:00 Bisacodyl (Dulcolax Supp) 10 mg DAILY PRN [place] CONSTIPATION; Start 06/06/18 at 14:00 IV Flush (NS 10 ml) 10 ml PRN PRN IV IV PROTOCOL; Start 06/06/18 at 16:00 Nystatin (Nystatin Susp) 5 ml QID PO Last administered on 07/10/18 09:14; Admin Dose 5 ML; Start 06/06/18 at 17:00 Metoprolol Tartrate (Lopressor) 25 mg BID PO Last administered on 07/10/18 09:15; Admin Dose 25 MG; Start 06/13/18 at 21:00 Metoprolol Tartrate (Lopressor) 5 mg Q4H PRN IV HR>110 Hold SBP<100; Start 06/13/18 at 10:30 Morphine Sulfate (morphine) 6 mg Q2H PRN PO FOR NON CARDIAC PAIN (4-10); Start 06/13/18 at 11:30 Docusate Sodium (Colace) 100 mg DAILY PRN PO CONSTIPATION; Start 06/21/18 at 1 2:00 Miscellaneous Information (Pending [facility] Order For Wound Care) This patient gomes... PRN PRN XX WOUND CARE; Start 06/21/18 at 16:00 Amiodarone HCl (Cordarone) 200 mg BID PO Last administered on 07/10/18 09:15; Admin Dose 200 MG; Start 06/22/18 at 21:00 Bumetanide (Bumex) 1 mg DAILY@0600 PO Last administered on 07/10/18 06:05; Admin Dose 1 MG; Start 07/09/18 at 06:00 Warfarin Sodium (Coumadin) 6 mg DAILY@17 PO Last administered on 07/09/18 17:37; Admin Dose 6 MG; Start 07/09/18 at 17:00 Ferrous Sulfate (Ferrous Sulfate (Ec)) 325 mg BID PO Last administered on 07/10/18 09:14; Admin Dose 325 MG; Start 07/09/18 at 09:30 Docusate Sodium (Colace) 100 mg DAILY PO Last administered on 07/10/18 09:15; Admin Dose 100 MG; Start 07/10/18 at 09:00 ALEXANDRU CHAPIN MD Jul 10, 2018 12:40
--- NOTE | 2018-07-10 12:54 | PN ---
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 Continue Mensah, monitor. Dr. Ashford is following in urology consultation. -Anemia of acute blood loss, transfuse PRN, monitor H&H. -S/p UTI, completed treatment with Zosyn. Dr. Castellanos is following in infection disease consultation. -Liver cirrhosis per CT, Dr Cruz is following in GI consultation. -S/p Nose/oropharyngeal bleed on 06/11/2018, stopped after heparin was held. -Retroperitoneal bleed secondary to vascular injury status post stent placement. Monitor H and H. S/p eval by Dr. Kilpatrick, vascular surgery consultation. -Status post left heart catheterization with no significant obstructive coronary artery disease by Dr. Moreno on 05/27/2018. -Anemia of acute blood loss, status post blood transfusion, continue to monitor hemoglobin and hematocrit. -Urinary incontinence. -Acute illness myopathy -Status post mitral valve replacement with mechanical valve in 1999 in [facility]. Continue Coumadin, monitor PT/INR. -HTN, continue metoprolol -Hyperlipidemia -Hypothyroidism, continue levothyroxine -History of asthma Further recommendations based on clinical course. Plan of care discussed with Dr. Painter. Result Diagram: 07/10/18 0606 07/09/18 0557 Results 24hrs Laboratory Tests Test 07/10/18 06:06 White Blood Count 4.6 L Red Blood Count 2.83 L Hemoglobin 9.0 L Hematocrit 28.5 L Mean Corpuscular Volume 100.7 Mean Corpuscular Hemoglobin 31.8 Mean Corpuscular Hemoglobin Concent 31.6 L Red Cell Distribution Width 18.3 H Platelet Count 159 Mean Platelet Volume 9.8 Immature Granulocytes % 1.500 H Neutrophils % 60.2 Lymphocytes % 28.2 Monocytes % 7.8 Eosinophils % 1.9 Basophils % 0.4 Nucleated Red Blood Cells % 0.0 Immature Granulocytes # 0.070 H Neutrophils # 2.8 Lymphocytes # 1.3 Monocytes # 0.4 Eosinophils # 0.1 Basophils # 0.0 Nucleated Red Blood Cells # 0.0 Subjective 24 Hr Interval Summary Free Text/Dictation -Hematuria resolving today -nad - vss - Hgb 9.0 seems comfortable denies any pain; still have hematuria and is improving no new events reported last night per staff Constitutional: requiring O2 Eyes: no complaints ENT: no complaints Respiratory: no complaints Cardiovascular: no complaints Gastrointestinal: no complaints Musculoskeletal: no complaints Skin: no complaints Neurologic: no complaints Endocrine: no complaints Lymphatic: no complaints Psychological: nl mood/affect Immunologic: no complaints Exam/Review of Systems Exam Vitals Vital Signs Date Temp Pulse Resp B/P (MAP) Pulse Ox O2 O2 Flow FiO2 Time Delivery Rate 07/10/18 98.0 72 22 106/56 Room Air 11:35 (73) 07/10/18 96 07:38 Intake and Output 07/09/18 07/09/18 07/10/18 1515:00 23:00 07:00 IntakeIntake Total 860 ml 300 ml OutputOutput Total 1500 ml 700 ml BalanceBalance -640 ml -400 ml Constitutional: alert, well developed Psych: nl mood/affect Head: atraumatic Eyes: nl lids, nl sclera ENMT: nl external ears & nose Neck: non-tender Respiratory: clear to auscultation Cardiovascular: nl pulses, other (s1s2) Gastrointestinal: soft, non-tender Musculoskeletal: nl extremities to inspection Neurological: nl speech, other (alert/responsive) Skin: nl turgor Lymph: nontender Results Results 24hrs Laboratory Tests Test 07/10/18 06:06 White Blood Count 4.6 L Red Blood Count 2.83 L Hemoglobin 9.0 L Hematocrit 28.5 L Mean Corpuscular Volume 100.7 Mean Corpuscular Hemoglobin 31.8 Mean Corpuscular Hemoglobin Concent 31.6 L Red Cell Distribution Width 18.3 H Platelet Count 159 Mean Platelet Volume 9.8 Immature Granulocytes % 1.500 H Neutrophils % 60.2 Lymphocytes % 28.2 Monocytes % 7.8 Eosinophils % 1.9 Basophils % 0.4 Nucleated Red Blood Cells % 0.0 Immature Granulocytes # 0.070 H Neutrophils # 2.8 Lymphocytes # 1.3 Monocytes # 0.4 Eosinophils # 0.1 Basophils # 0.0 Nucleated Red Blood Cells # 0.0 Medications Medication Current Medications Levothyroxine Sodium (Synthroid) 50 mcg BEFORE BREAKFAST PO Last administered on 07/10/18 06:05; Admin Dose 50 MCG; Start 05/30/18 at 07:00 Mometasone Furoate (Asmanex) 1 puff DAILY INH Last administered on 07/10/18 09:14; Admin Dose 1 PUFF; Start 05/29/18 at 11:00 Atorvastatin Calcium (Lipitor) 10 mg DAILY@21 PO Last administered on 07/09/18 22:07; Admin Dose 10 MG; Start 05/29/18 at 21:00 Latanoprost (Xalatan) 1 drop HS BOTH EYES Last administered on 07/09/18 22:06; Admin Dose 1 DROP; Start 06/01/18 at 21:00 Amlodipine Besylate (Norvasc) 5 mg DAILY PO ; Start 06/03/18 at 09:00; Status Hold Pantoprazole (Protonix Tab) 40 mg DAILY@06 PO Last administered on 07/10/18 06:05; Admin Dose 40 MG; Start 06/05/18 at 06:00 Metoclopramide HCl (Reglan) 5 mg TID PRN IV Nausea; Start 06/06/18 at 11:00 Polyethylene Glycol (Miralax) 17 gm BID PRN PO CONSTIPATION; Start 06/06/18 at 14:00 Bisacodyl (Dulcolax Supp) 10 mg DAILY PRN [place] CONSTIPATION; Start 06/06/18 at 14:00 IV Flush (NS 10 ml) 10 ml PRN PRN IV IV PROTOCOL; Start 06/06/18 at 16:00 Nystatin (Nystatin Susp) 5 ml QID PO Last administered on 07/10/18at 09:14; Admin Dose 5 ML; Start 06/06/18 at 17:00 Metoprolol Tartrate (Lopressor) 25 mg BID PO Last administered on 07/10/18at 09:15; Admin Dose 25 MG; Start 06/13/18 at 21:00 Metoprolol Tartrate (Lopressor) 5 mg Q4H PRN IV HR>110 Hold SBP<100; Start 06/13/18 at 10:30 Morphine Sulfate (morphine) 6 mg Q2H PRN PO FOR NON CARDIAC PAIN (4-10); Start 06/13/18 at 11:30 Docusate Sodium (Colace) 100 mg DAILY PRN PO CONSTIPATION; Start 06/21/18 at 12:00 [facility] This patient gomes... PRN PRN XX WOUND CARE; Start 06/21/18 at 16:00 Amiodarone HCl (Cordarone) 200 mg BID PO Last administered on 07/10/18 09:15; Admin Dose 200 MG; Start 06/22/18 at 21:00 Bumetanide (Bumex) 1 mg DAILY@0600 PO Last administered on 07/10/18 06:05; Admin Dose 1 MG; Start 07/09/18 at 06:00 Warfarin Sodium (Coumadin) 6 mg DAILY@17 PO Last administered on 07/09/18at 17:37; Admin Dose 6 MG; Start 07/09/18 at 17:00 Ferrous Sulfate (Ferrous Sulfate (Ec)) 325 mg BID PO Last administered on 07/10/18at 09:14; Admin Dose 325 MG; Start 07/09/18 at 09:30 Docusate Sodium (Colace) 100 mg DAILY PO Last administered on 07/10/18 09:15; Admin Dose 100 MG; Start 07/10/18 at 09:00 DELICIA MATUTE Jul 10, 2018 12:54
--- NOTE | 2018-07-10 12:54 | CONS ---
Consult Date/Type/Reason Admit Date/Time May 28, 2018 at 17:52 Initial Consult Date Type of Consultation: Urology Requesting Provider: JULY VALENTIN MD Date/Time of Note DATE: 07/10/18 TIME: 12:50 Subjective NO acute events - pt looks stronger - able to ambulate - improved hematuria ROS: No fever, no chills, no nausea, no vomiting, no diarrhea/constipation No recent weight changes No chest pain, no PND, no orthopnea - feels stronger No dizziness, blurred vision No thirst, no heat or cold intolerance Objective Vitals Vital Signs Date Temp Pulse Resp B/P (MAP) Pulse Ox O2 O2 Flow FiO2 Time Delivery Rate 07/10/18 98.0 72 22 106/56 Room Air 11:35 (73) 07/10/18 96 07:38 Intake and Output 07/09/18 07/09/18 07/10/18 1515:00 23:00 07:00 IntakeIntake Total 860 ml 300 ml OutputOutput Total 1500 ml 700 ml BalanceBalance -640 ml -400 ml Exam General: WN/WD/NAD, AOx 3 HEENT: Unicetric/atraumatic/EOMI (follow commands) NECK: JVD elevated, no thyromegaly Lymph: no lymphadenopathy HEART: regular with no S3, II/ systolic murmur at apex, mech click LUNGS: Coarse sounds ABD: soft, NT, ND, +BS : Intact, Mensah in place Neuro: non focal SKIN: chronic changes EXT: trace edema Results/Medications Result Diagram: 07/10/18 0606 07/09/18 0557 Results 24 hrs Laboratory Tests Test 07/10/18 06:06 White Blood Count 4.6 L Red Blood Count 2.83 L Hemoglobin 9.0 L Hematocrit 28.5 L Mean Corpuscular Volume 100.7 Mean Corpuscular Hemoglobin 31.8 Mean Corpuscular Hemoglobin Concent 31.6 L Red Cell Distribution Width 18.3 H Platelet Count 159 Mean Platelet Volume 9.8 Immature Granulocytes % 1.500 H Neutrophils % 60.2 Lymphocytes % 28.2 Monocytes % 7.8 Eosinophils % 1.9 Basophils % 0.4 Nucleated Red Blood Cells % 0.0 Immature Granulocytes # 0.070 H Neutrophils # 2.8 Lymphocytes # 1.3 Monocytes # 0.4 Eosinophils # 0.1 Basophils # 0.0 Nucleated Red Blood Cells # 0.0 Home Meds Reported Medications Albuterol Sulfate* (Ventolin HFA*) 18 Gm Hfa.aer.ad, 2 PUFF INHALATION Q4H, #1 INHALER 05/26/18 Ergocalciferol (Vitamin D2) (VITAMIN D2) 50,000 Unit Capsule, 89742 UNIT PO [id number], CAP 05/23/18 Warfarin Sodium* (Coumadin*) 5 Mg Tablet, 5 MG PO Q TUES,THUR,SAT, TAB 05/23/18 Warfarin Sodium* (Coumadin*) 4 Mg Tablet, 4 MG PO Q MON,WED,FRI,SUN, TAB 05/23/18 Furosemide* (Furosemide*) 20 Mg Tablet, 20 MG PO DAILY, #60 TAB TAKE Q 2 DAYS 05/23/18 Simvastatin* (Zocor*) 20 Mg Tablet, 20 MG PO QHS, #30 TAB 05/23/18 Ranitidine Hcl* (Ranitidine Hcl*) 150 Mg Tablet, 150 MG PO HS, #30 TAB 05/23/18 Acetaminophen (Mapap) 500 Mg Capsule, 500 MG PO BID PRN for PAIN, CAP 05/23/18 Levothyroxine Sodium* (Levothyroxine Sodium*) 50 Mcg Tablet, 50 MCG PO BEFORE BREAKFAST, #30 TAB 05/23/18 Spironolactone* (Aldactone*) 25 Mg Tablet, 25 MG PO DAILY, #30 TAB 05/23/18 Beclomethasone Dipropionate (Qvar Redihaler (40 MCG)) 10.6 Gm Hfa.aeroba, 10.6 GM IH DAILY, INH 05/23/18 Amlodipine Besylate* (Norvasc*) 5 Mg Tablet, 5 MG PO BID, TAB 05/23/18 Losartan-Hydrochlorothiazide (Losartan-HCTZ) 100-25 Mg Tab, 1 TAB PO DAILY, TAB 05/23/18 Medications Current Medications Levothyroxine Sodium (Synthroid) 50 mcg BEFORE BREAKFAST PO Last administered on 07/10/18at 06:05; Admin Dose 50 MCG; Start 05/30/18 at 07:00 Mometasone Furoate (Asmanex) 1 puff DAILY INH Last administered on 07/10/18at 09:14; Admin Dose 1 PUFF; Start 05/29/18 at 11:00 Atorvastatin Calcium (Lipitor) 10 mg DAILY@21 PO Last administered on 07/09/18at 22:07; Admin Dose 10 MG; Start 05/29/18 at 21:00 Latanoprost (Xalatan) 1 drop HS BOTH EYES Last administered on 07/09/18at 22:06; Admin Dose 1 DROP; Start 06/01/18 at 21:00 Amlodipine Besylate (Norvasc) 5 mg DAILY PO ; Start 06/03/18 at 09:00; Status Hold Pantoprazole (Protonix Tab) 40 mg DAILY@06 PO Last administered on 07/10/18at 06:05; Admin Dose 40 MG; Start 06/05/18 at 06:00 Metoclopramide HCl (Reglan) 5 mg TID PRN IV Nausea; Start 06/06/18 at 11:00 Polyethylene Glycol (Miralax) 17 gm BID PRN PO CONSTIPATION; Start 06/06/18 at 14:00 Bisacodyl (Dulcolax Supp) 10 mg DAILY PRN [place] CONSTIPATION; Start 06/06/18 at 14:00 IV Flush (NS 10 ml) 10 ml PRN PRN IV IV PROTOCOL; Start 06/06/18 at 16:00 Nystatin (Nystatin Susp) 5 ml QID PO Last administered on 07/10/18at 09:14; Admin Dose 5 ML; Start 06/06/18 at 17:00 Metoprolol Tartrate (Lopressor) 25 mg BID PO Last administered on 07/10/18at 09:15; Admin Dose 25 MG; Start 06/13/18 at 21:00 Metoprolol Tartrate (Lopressor) 5 mg Q4H PRN IV HR>110 Hold SBP<100; Start 06/13/18 at 10:30 Morphine Sulfate (morphine) 6 mg Q2H PRN PO FOR NON CARDIAC PAIN (4-10); Start 06/13/18 at 11:30 Docusate Sodium (Colace) 100 mg DAILY PRN PO CONSTIPATION; Start 06/21/18 at 12:00 Miscellaneous Information (Pending [facility] Order For Wound Care) This patient fournier... PRN PRN XX WOUND CARE; Start 06/21/18 at 16:00 Amiodarone HCl (Cordarone) 200 mg BID PO Last administered on 07/10/18at 09:15; Admin Dose 200 MG; Start 06/22/18 at 21:00 Bumetanide (Bumex) 1 mg DAILY@0600 PO Last administered on 07/10/18at 06:05; Admin Dose 1 MG; Start 07/09/18 at 06:00 Warfarin Sodium (Coumadin) 6 mg DAILY@17 PO Last administered on 07/09/18at 17:37; Admin Dose 6 MG; Start 07/09/18 at 17:00 Ferrous Sulfate (Ferrous Sulfate (Ec)) 325 mg BID PO Last administered on 07/10/18at 09:14; Admin Dose 325 MG; Start 07/09/18 at 09:30 Docusate Sodium (Colace) 100 mg DAILY PO Last administered on 07/10/18at 09:15; Admin Dose 100 MG; Start 07/10/18 at 09:00 Assessment/Plan Hospital Course (Demo Recall) 1.cad s/p LHC with no sig obstructive cad - on med rx now - treated - no CP now - stable - on meds - treated. 2.HTN - treated - well Rx - well controlled - controlled 3.RP Bleed s/p transfusions now stable - hematuria - possible fistula - urology follows, blood Rx now. STILL with hematuria - urology follows. 4.HL 5.MVR-mechanical - stable by exam - soft click by exam - stable Stable by exam.Soft click. Stable by exam. Con't to follow. 6.anemia- s/p repair of R [employer]/illiac. Now stabilizing - still with hematuria, a little better H/H at 9.0 7.Hypothyroid 8. FOURNIER-negative Head CT 9. Fevers-with positive ua - now resolved. RESOLVED. CECILIA MOCTEZUMA MD Jul 10, 2018 12:54
--- NOTE | 2018-07-10 16:42 | CONS ---
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 She denies any pelvic pain Objective Vitals Vital Signs Date Temp Pulse Resp B/P (MAP) Pulse Ox O2 O2 Flow FiO2 Time Delivery Rate 07/10/18 69 12:00 07/10/18 98.0 22 106/56 Room Air 11:35 (73) 07/10/18 96 07:38 Intake and Output 07/09/18 07/09/18 07/10/18 1515:00 23:00 07:00 IntakeIntake Total 860 ml 300 ml OutputOutput Total 1500 ml 700 ml BalanceBalance -640 ml -400 ml Exam The Mensah catheter is draining clear to clear pink urine. The color is clearing little by little every day Results/Medications Result Diagram: 07/10/18 0606 07/09/18 0557 Results 24 hrs Laboratory Tests Test 07/10/18 06:06 White Blood Count 4.6 L Red Blood Count 2.83 L Hemoglobin 9.0 L Hematocrit 28.5 L Mean Corpuscular Volume 100.7 Mean Corpuscular Hemoglobin 31.8 Mean Corpuscular Hemoglobin Concent 31.6 L Red Cell Distribution Width 18.3 H Platelet Count 159 Mean Platelet Volume 9.8 Immature Granulocytes % 1.500 H Neutrophils % 60.2 Lymphocytes % 28.2 Monocytes % 7.8 Eosinophils % 1.9 Basophils % 0.4 Nucleated Red Blood Cells % 0.0 Immature Granulocytes # 0.070 H Neutrophils # 2.8 Lymphocytes # 1.3 Monocytes # 0.4 Eosinophils # 0.1 Basophils # 0.0 Nucleated Red Blood Cells # 0.0 Home Meds Reported Medications Albuterol Sulfate* (Ventolin HFA*) 18 Gm Hfa.aer.ad, 2 PUFF INHALATION Q4H, #1 INHALER 05/26/18 Ergocalciferol (Vitamin D2) (VITAMIN D2) 50,000 Unit Capsule, 77165 UNIT PO [id number], CAP 05/23/18 Warfarin Sodium* (Coumadin*) 5 Mg Tablet, 5 MG PO Q TUES,THUR,SAT, TAB 05/23/18 Warfarin Sodium* (Coumadin*) 4 Mg Tablet, 4 MG PO Q MON,WED,FRI,SUN, TAB 05/23/18 Furosemide* (Furosemide*) 20 Mg Tablet, 20 MG PO DAILY, #60 TAB TAKE Q 2 DAYS 05/23/18 Simvastatin* (Zocor*) 20 Mg Tablet, 20 MG PO QHS, #30 TAB 05/23/18 Ranitidine Hcl* (Ranitidine Hcl*) 150 Mg Tablet, 150 MG PO HS, #30 TAB 05/23/18 Acetaminophen (Mapap) 500 Mg Capsule, 500 MG PO BID PRN for PAIN, CAP 05/23/18 Levothyroxine Sodium* (Levothyroxine Sodium*) 50 Mcg Tablet, 50 MCG PO BEFORE BREAKFAST, #30 TAB 05/23/18 Spironolactone* (Aldactone*) 25 Mg Tablet, 25 MG PO DAILY, #30 TAB 05/23/18 Beclomethasone Dipropionate (Qvar Redihaler (40 MCG)) 10.6 Gm Hfa.aeroba, 10.6 GM IH DAILY, INH 05/23/18 Amlodipine Besylate* (Norvasc*) 5 Mg Tablet, 5 MG PO BID, TAB 05/23/18 Losartan-Hydrochlorothiazide (Losartan-HCTZ) 100-25 Mg Tab, 1 TAB PO DAILY, TAB 05/23/18 Medications Current Medications Levothyroxine Sodium (Synthroid) 50 mcg BEFORE BREAKFAST PO Last administered on 07/10/18at 06:05; Admin Dose 50 MCG; Start 05/30/18 at 07:00 Mometasone Furoate (Asmanex) 1 puff DAILY INH Last administered on 07/10/18at 09:14; Admin Dose 1 PUFF; Start 05/29/18 at 11:00 Atorvastatin Calcium (Lipitor) 10 mg DAILY@21 PO Last administered on 07/09/18at 22:07; Admin Dose 10 MG; Start 05/29/18 at 21:00 Latanoprost (Xalatan) 1 drop HS BOTH EYES Last administered on 07/09/18at 22:06; Admin Dose 1 DROP; Start 06/01/18 at 21:00 Amlodipine Besylate (Norvasc) 5 mg DAILY PO ; Start 06/03/18 at 09:00; Status Hold Pantoprazole (Protonix Tab) 40 mg DAILY@06 PO Last administered on 07/10/18at 06:05; Admin Dose 40 MG; Start 06/05/18 at 06:00 Metoclopramide HCl (Reglan) 5 mg TID PRN IV Nausea; Start 06/06/18 at 11:00 Polyethylene Glycol (Miralax) 17 gm BID PRN PO CONSTIPATION; Start 06/06/18 at 14:00 Bisacodyl (Dulcolax Supp) 10 mg DAILY PRN [place] CONSTIPATION; Start 06/06/18 at 14:00 IV Flush (NS 10 ml) 10 ml PRN PRN IV IV PROTOCOL; Start 06/06/18 at 16:00 Nystatin (Nystatin Susp) 5 ml QID PO Last administered on 07/10/18at 13:00; Admin Dose 5 ML; Start 06/06/18 at 17:00 Metoprolol Tartrate (Lopressor) 25 mg BID PO Last administered on 07/10/18at 09:15; Admin Dose 25 MG; Start 06/13/18 at 21:00 Metoprolol Tartrate (Lopressor) 5 mg Q4H PRN IV HR>110 Hold SBP<100; Start 06/13/18 at 10:30 Morphine Sulfate (morphine) 6 mg Q2H PRN PO FOR NON CARDIAC PAIN (4-10); Start 06/13/18 at 11:30 Docusate Sodium (Colace) 100 mg DAILY PRN PO CONSTIPATION; Start 06/21/18 at 12:00 Miscellaneous Information (Pending [facility] Order For Wound Care) This patient gomes... PRN PRN XX WOUND CARE; Start 06/21/18 at 16:00 Amiodarone HCl (Cordarone) 200 mg BID PO Last administered on 07/10/18at 09:15; Admin Dose 200 MG; Start 06/22/18 at 21:00 Bumetanide (Bumex) 1 mg DAILY@0600 PO Last administered on 07/10/18at 06:05; Admin Dose 1 MG; Start 07/09/18 at 06:00 Warfarin Sodium (Coumadin) 6 mg DAILY@17 PO Last administered on 07/09/18at 17:37; Admin Dose 6 MG; Start 07/09/18 at 17:00 Ferrous Sulfate (Ferrous Sulfate (Ec)) 325 mg BID PO Last administered on 07/10/18at 09:14; Admin Dose 325 MG; Start 07/09/18 at 09:30 Docusate Sodium (Colace) 100 mg DAILY PO Last administered on 07/10/18at 09:15; Admin Dose 100 MG; Start 07/10/18 at 09:00 Assessment/Plan Hospital Course (Demo Recall) 62-year-old female underwent coronary angiogram. 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 I did insert the catheter for her and she was anuric. Since then she has improved and has been making urine and the urine was clear however today her urine was bloody. We checked her postvoid residual and she had only 175 mL. Urine was sent for culture and sensitivity. Her last urine culture was no growth after 48 hours. The patient has been having hematuria for the past 2 days and today as she is to drop to have the physical therapy a lot of blood came out. I ordered CT scan of the abdomen and pelvis to see if the hematoma has fistulized into the bladder. She underwent a CT scan and that was reported: 1. Compared to the previous exam of 06/06/2018, the previously seen right lower quadrant pigtail catheter has been removed and the chronic hemoperitoneum or pelvic hematoma has decreased in volume now estimated at 1033 cc compared to all 1260 cc with evolution of the blood products, the attenuation decreasing from 72 HU to 45 HU. Continued surveillance is recommended with follow-up CT as determined clinically. 2. Atrophic uterus without endometrial thickening or other findings to explain the patient's provided history of vaginal bleeding. 3. Post thoracotomy changes with marked cardiomegaly, mitral valve prosthesis, left ventricular apex calcification and increased bibasilar subsegmental atelectasis. 4. Nodular contour to the liver consistent with cirrhosis is again noted. 5. Cholelithiasis without evidence for cholecystitis. 6. Stable mild splenomegaly. 7. Tiny left intrarenal calculus without hydronephrosis. 8. Contracted urinary bladder is difficult to evaluate. 9. Resolved small bowel wall thickening, enteric contrast media within the colon with diverticular disease but no diverticulitis. 10. Resolved anasarca pattern of the subcutaneous tissues I did call the radiologist who read the CT scan and discussed with him the clinical reasons I requested the CT scan and the suspicion that I had for a fistula. He did review the CT while I was talking with him and added an amendment to the report that says: AMENDMENT: 07/01/2018 7:59:21 PM Anjum Magallon D.o A telephone conversation takes place with the patient's urologist, Dr. Godwin, at 19:50 and he kindly provides additional history of sudden onset of hematuria upon standing. Upon further review of the images, there is loss of the normal fat plane between the pelvic hematoma with the anterior dome of the urinary bladder which cannot exclude the possibility of a fistula between the hematoma and a bladder that would explain the patients hematuria. There is preservation of the fat plane between the hematoma and the middle and inferior portion of the anterior urinary bladder. There is no evidence of loss of fat plane between the hematoma and vagina to suggest a fistula in this location. It is discussed that the patient would likely benefit from further evaluation with a CT cystogram performed in the prone position to limit the amount of contrast to opacify the potential fistula. 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 The bleeding in her urine is coming from that hematoma. I did show her son the pictures and explained to him that if the hematoma drains through the bladder we just have to keep the Mensah catheter in and wait for it to drain completely and then the bladder hopefully will heal by itself and if it does not we could always do surgery and close it. At the present the Mensah catheter continues to drain dark blood mixed with urine. The suprapubic hematoma is smaller in size. The urine culture grew: URINE CULTURE Final Organism 1 HAFNIA ALVEI COLONY COUNT >100,000 CFU/ml Organism 2 MIXED GRAM POSITIVE ORGANISMS COLONY COUNT >100,000 CFU/ml HAF ALVEI HAF ALVEI M.I.C. RX M.I.C. RX --------- --- --------- --- AMPICILLIN R AMPICILLIN/SULBACTAM >=32 R CEFAZOLIN R CEFOTAXIME S CIPROFLOXACIN <=0.25 S GENTAMICIN <=1 S LEVOFLOXACIN <=0.12 S MEROPENEM 0.064 S NITROFURANTOIN <=16 S TOBRAMYCIN <=1 S TRIMETHOPRIM/SULFAMETHOXAZOLE <=20 S The patient is on Zosyn. Patient is comfortable and she has no pain. The abdomen is softer and the suprapubic mass continues to get smaller. She does have bleeding from her nose. The suprapubic hematoma is getting smaller and the bladder urine is clearing. For now continue the same: Keep the Mensah catheter in place, Patient also was restarted on Coumadin . JOAQUIN DE LEON MD Jul 10, 2018 16:42
[2018-07-10] MEDS: WARFARIN 3 MG TAB PO SCH (17:27)
[2018-07-10] MEDS: ATORVASTATIN 10 MG TAB PO SCH (21:59)
[2018-07-10] MEDS: LATANOPROST 0.005% 2.5 ML OPH BOTH EYES SCH (21:59)
--- NOTE | 2018-07-10 22:57 | CONS ---
Assessment/Plan Assessment/Plan Hospital Course (Demo Recall) # sepsis, cardiopulmonary - s/p severe sepsis due to UTI, resolved - s/p SIRS due to acute blood loss, resolved - s/p L heart catheterization on 05/27/2018 showing no significant obstructive CAD - CAD - s/p CABG in [place] in 1982 - H/o MVR with mechanical valve, in 1999 - Hypertension - PAF - in [place] - Asthma # urology/renal, GI - hematuria caused by ruptured urinary bladder - slowly improving - CT abd pelvis on 07/02/18 showed large extravasation of contrast administered through a F/c into the large anterior pelvic fluid collection is demonstrated, consistent with bladder rupture. no contrast seen within the vagina to suggest fistulization with the overlying urinary bladder. - UTI due to hafnai alvei and pediococci on 06/30/18. Pt completed pip/tazo (07/02/18-07/05/2018) - S/p UTI due to E. coli. Pt completed pip/tazo (06/02/2018-06/03/2018), ceftriaxone (06/04/2018-06/07/2018) - S/p CT guided placement of drainage catheter into pelvic hematoma 06/05/2018-->removed on 06/09/2018 - S/p FORREST - Cholelithiasis without e/o acute cholecystitis # heme - Coagulopathy / warfarin - S/p nasopharyngeal bleed on 06/11/2018, resolved - S/p R femoral artery bleeding with a pseudoaneurysm, s/p covered stent placement 6 x 100 mm right common femoral artery and right external iliac artery, abdominal aortogram, catheter introduction to the abdominal aorta, JOSÉ MIGUEL guidance into the central artery 06/02/2018 - S/p retroperitoneal bleed - S/p acute anemia requiring PRBC # endo - Hyperlipidemia - Hypothyroidism Recommendations: - monitor Pt off systemic antibiotics Management discussed with Dr. Hughes Consultation Date/Type/Reason Admit Date/Time May 28, 2018 at 17:52 Initial Consult Date 06/02/18 Type of Consult Infectious Disease Requesting Provider: JULY VALENTIN MD Date/Time of Note DATE: 07/10/18 TIME: 22:57 24 HR Interval Summary Free Text/Dictation Chart reviewed. Had episode of epistaxis. Hematuria is slowly improving. ROS deferred as pt is sleeping. Exam/Review of Systems Exam Vitals Vital Signs Date Temp Pulse Resp B/P (MAP) Pulse Ox O2 O2 Flow FiO2 Time Delivery Rate 07/10/18 79 20:51 07/10/18 98.1 19 118/55 96 20:00 (76) 07/10/18 Room Air 16:00 Intake and Output 07/09/18 07/09/18 07/10/18 1515:00 23:00 07:00 IntakeIntake Total 860 ml 300 ml OutputOutput Total 1500 ml 700 ml BalanceBalance -640 ml -400 ml Exam Constitutional: well developed, other (sleeping quietly) Head: normocephalic, atraumatic Eyes: nl lids, other (eyes closed) ENMT: nl external ears & nose, nl nasal mucosa & septum, other (unable to examine OP) Neck: other (not swollen) Respiratory: clear to auscultation, normal air movement (on room air) Cardiovascular: regular rate and rhythm, nl pulses Genitourinary - Female: other (Mensah with pink yellow urine in tubing; hematuria improving, no clots) Musculoskeletal: nl extremities to inspection Extremities: normal pulses, edema Neurological: other (deferred as pt is asleep) Skin: nl turgor, ecchymosis (scattered); No rash or lesions Results Result Diagram: 07/10/18 0606 07/09/18 0557 Results 24hrs Laboratory Tests Test 07/10/18 06:06 White Blood Count 4.6 L Red Blood Count 2.83 L Hemoglobin 9.0 L Hematocrit 28.5 L Mean Corpuscular Volume 100.7 Mean Corpuscular Hemoglobin 31.8 Mean Corpuscular Hemoglobin Concent 31.6 L Red Cell Distribution Width 18.3 H Platelet Count 159 Mean Platelet Volume 9.8 Immature Granulocytes % 1.500 H Neutrophils % 60.2 Lymphocytes % 28.2 Monocytes % 7.8 Eosinophils % 1.9 Basophils % 0.4 Nucleated Red Blood Cells % 0.0 Immature Granulocytes # 0.070 H Neutrophils # 2.8 Lymphocytes # 1.3 Monocytes # 0.4 Eosinophils # 0.1 Basophils # 0.0 Nucleated Red Blood Cells # 0.0 Medications Medication Current Medications Levothyroxine Sodium (Synthroid) 50 mcg BEFORE BREAKFAST PO Last administered on 07/10/18at 06:05; Admin Dose 50 MCG; Start 05/30/18 at 07:00 Mometasone Furoate (Asmanex) 1 puff DAILY INH Last administered on 07/10/18at 09:14; Admin Dose 1 PUFF; Start 05/29/18 at 11:00 Atorvastatin Calcium (Lipitor) 10 mg DAILY@21 PO Last administered on 07/10/18 21:59; Admin Dose 10 MG; Start 05/29/18 at 21:00 Latanoprost (Xalatan) 1 drop HS BOTH EYES Last administered on 07/10/18 21:59; Admin Dose 1 DROP; Start 06/01/18 at 21:00 Amlodipine Besylate (Norvasc) 5 mg DAILY PO ; Start 06/03/18 at 09:00; Status Hold Pantoprazole (Protonix Tab) 40 mg DAILY@06 PO Last administered on 07/10/18at 06:05; Admin Dose 40 MG; Start 06/05/18 at 06:00 Metoclopramide HCl (Reglan) 5 mg TID PRN IV Nausea; Start 06/06/18 at 11:00 Polyethylene Glycol (Miralax) 17 gm BID PRN PO CONSTIPATION; Start 06/06/18 at 14:00 Bisacodyl (Dulcolax Supp) 10 mg DAILY PRN [place] CONSTIPATION; Start 06/06/18 at 14:00 IV Flush (NS 10 ml) 10 ml PRN PRN IV IV PROTOCOL; Start 06/06/18 at 16:00 Nystatin (Nystatin Susp) 5 ml QID PO Last administered on 07/10/18at 22:00; Admin Dose 5 ML; Start 06/06/18 at 17:00 Metoprolol Tartrate (Lopressor) 25 mg BID PO Last administered on 07/10/18at 22:00; Admin Dose 25 MG; Start 06/13/18 at 21:00 Metoprolol Tartrate (Lopressor) 5 mg Q4H PRN IV HR>110 Hold SBP<100; Start 06/13/18 at 10:30 Morphine Sulfate (morphine) 6 mg Q2H PRN PO FOR NON CARDIAC PAIN (4-10); Start 06/13/18 at 11:30 Docusate Sodium (Colace) 100 mg DAILY PRN PO CONSTIPATION; Start 06/21/18 at 12:00 Miscellaneous Information (Pending [facility] Order For Wound Care) This patient gomes... PRN PRN XX WOUND CARE; Start 06/21/18 at 16:00 Amiodarone HCl (Cordarone) 200 mg BID PO Last administered on 07/10/18at 22:00; Admin Dose 200 MG; Start 06/22/18 at 21:00 Bumetanide (Bumex) 1 mg DAILY@0600 PO Last administered on 07/10/18 06:05; Admin Dose 1 MG; Start 07/09/18 at 06:00 Warfarin Sodium (Coumadin) 6 mg DAILY@17 PO Last administered on 07/10/18at 17:27; Admin Dose 6 MG; Start 07/09/18 at 17:00 Ferrous Sulfate (Ferrous Sulfate (Ec)) 325 mg BID PO Last administered on 07/10/18at 21:59; Admin Dose 325 MG; Start 07/09/18 at 09:30 Docusate Sodium (Colace) 100 mg DAILY PO Last administered on 07/10/18at 09:15; Admin Dose 100 MG; Start 07/10/18 at 09:00 KISHORE JARAMILLO NP Jul 10, 2018 22:57
[2018-07-11] VITALS (12 sets, daily range): BP systolic 105–128; BP diastolic 55–60; PULSE 58–79; RESP 18–19
[2018-07-11] MEDS: PANTOPRAZOLE (EC) 40 MG TAB PO SCH (05:39)
[2018-07-11] MEDS: BUMETANIDE 1 MG TAB PO SCH (05:39)
[2018-07-11] MEDS: LEVOTHYROXINE 50 MCG TAB PO SCH (05:39)
[2018-07-11] MEDS: MOMETASONE 0.24 GM INHALER INH SCH (08:50)
[2018-07-11] MEDS: AMIODARONE 200 MG TAB PO SCH ×2 (08:51→21:31)
[2018-07-11] MEDS: NYSTATIN SUSP 5 ML CUP PO SCH ×4 (08:52→21:30)
[2018-07-11] MEDS: DOCUSATE SODIUM 100 MG CAP PO SCH (08:52)
[2018-07-11] MEDS: METOPROLOL 25 MG TAB PO SCH ×2 (08:52→21:30)
[2018-07-11] MEDS: FERROUS SULFATE (EC) 325 MG TAB PO SCH ×2 (08:52→21:29)
--- NOTE | 2018-07-11 08:55 | CONS ---
Assessment/Plan Assessment/Plan Hospital Course (Demo Recall) 62 yo male Interval hx: HH stable and improved from yesterday, no signs of GI bleeding. Tolerating regular diet. No nausea or abdominal pain. BM brown and soft. 1. Cirrhosis of liver seen on imaging, etiology is unclear. -LFTs wnl. -Neg hepatitis panel -Antimitochondrial antibody, anti-smooth muscle antibody negative, ceruplasmin wnl. 2. Coronary artery disease, nonobstructive, with ejection fraction of 40 to 45%, nonischemic. 3. Hypertension. 4. Retroperitoneal bleed. 5. Mitral valve replacement due to mechanical mitral valve. 6. Hypothyroidism. 7. Urinary tract infection. 8. Paroxysmal atrial fibrillation, rate is controlled. 9. Hematuria. 10. Status post rupture of the urinary bladder. 11. Epistaxis, improved. 12. Positive stool guaiac may be from epistaxis 13. Coagulopathy- pt on coumadin 14. Leukopenia Plan Monitor HH and for signs of GI bleeding [facility] screen pending Pt examined and plan of care discussed with Dr. Cruz Consultation Date/Type/Reason Admit Date/Time May 28, 2018 at 17:52 Initial Consult Date 06/03/18 Requesting Provider: JULY VALENTIN MD Date/Time of Note DATE: 07/11/18 TIME: 08:49 Exam/Review of Systems Exam Vitals Vital Signs Date Temp Pulse Resp B/P (MAP) Pulse Ox O2 O2 Flow FiO2 Time Delivery Rate 07/11/18 97.8 60 18 122/58 97 07:27 (79) 07/10/18 Room Air 16:00 Intake and Output 07/10/18 07/10/18 07/11/18 1515:00 23:00 07:00 IntakeIntake Total 680 ml 550 ml OutputOutput Total 1400 ml 1800 ml BalanceBalance -1400 ml -1120 ml 550 ml Constitutional: alert, oriented Psych: no complaints Head: normocephalic Eyes: nl sclera, PERRL ENMT: mucosa pink and moist Respiratory: clear to auscultation Cardiovascular: regular rate and rhythm Gastrointestinal: soft, non-tender, bowel sounds Neurological: nl mental status Results Result Diagram: 07/11/18 0619 07/11/18 0619 Results 24hrs Laboratory Tests Test 07/11/18 06:19 White Blood Count 4.5 L Red Blood Count 3.01 L Hemoglobin 9.6 L Hematocrit 30.2 L Mean Corpuscular Volume 100.3 Mean Corpuscular Hemoglobin 31.9 Mean Corpuscular Hemoglobin Concent 31.8 L Red Cell Distribution Width 18.2 H Platelet Count 165 Mean Platelet Volume 9.7 Immature Granulocytes % 1.300 H Neutrophils % 57.5 Lymphocytes % 31.2 Monocytes % 7.6 Eosinophils % 2.0 Basophils % 0.4 Nucleated Red Blood Cells % 0.0 Immature Granulocytes # 0.060 H Neutrophils # 2.6 Lymphocytes # 1.4 Monocytes # 0.3 Eosinophils # 0.1 Basophils # 0.0 Nucleated Red Blood Cells # 0.0 Prothrombin Time 30.0 #H Prothrombin Time Ratio 2.3 INR International Normalized Ratio 2.86 Sodium Level 139 Potassium Level 3.6 Chloride Level 102 Carbon Dioxide Level 33 H Anion Gap 4 L Blood Urea Nitrogen 23 H Creatinine 0.67 Est Glomerular Filtrat Rate mL/min > 60 Glucose Level 101 Calcium Level 8.9 Medications Medication Current Medications Levothyroxine Sodium (Synthroid) 50 mcg BEFORE BREAKFAST PO Last administered on 07/11/18at 05:39; Admin Dose 50 MCG; Start 05/30/18 at 07:00 Mometasone Furoate (Asmanex) 1 puff DAILY INH Last administered on 07/10/18at 09:14; Admin Dose 1 PUFF; Start 05/29/18 at 11:00 Atorvastatin Calcium (Lipitor) 10 mg DAILY@21 PO Last administered on 07/10/18at 21:59; Admin Dose 10 MG; Start 05/29/18 at 21:00 Latanoprost (Xalatan) 1 drop HS BOTH EYES Last administered on 07/10/18at 21:59; Admin Dose 1 DROP; Start 06/01/18 at 21:00 Amlodipine Besylate (Norvasc) 5 mg DAILY PO ; Start 06/03/18 at 09:00; Status Hold Pantoprazole (Protonix Tab) 40 mg DAILY@06 PO Last administered on 07/11/18at 05:39; Admin Dose 40 MG; Start 06/05/18 at 06:00 Metoclopramide HCl (Reglan) 5 mg TID PRN IV Nausea; Start 06/06/18 at 11:00 Polyethylene Glycol (Miralax) 17 gm BID PRN PO CONSTIPATION; Start 06/06/18 at 14:00 Bisacodyl (Dulcolax Supp) 10 mg DAILY PRN [place] CONSTIPATION; Start 06/06/18 at 14:00 IV Flush (NS 10 ml) 10 ml PRN PRN IV IV PROTOCOL; Start 06/06/18 at 16:00 Nystatin (Nystatin Susp) 5 ml QID PO Last administered on 07/10/18 22:00; A dmin Dose 5 ML; Start 06/06/18 at 17:00 Metoprolol Tartrate (Lopressor) 25 mg BID PO Last administered on 07/10/18 22:00; Admin Dose 25 MG; Start 06/13/18 at 21:00 Metoprolol Tartrate (Lopressor) 5 mg Q4H PRN IV HR>110 Hold SBP<100; Start 06/13/18 at 10:30 Morphine Sulfate (morphine) 6 mg Q2H PRN PO FOR NON CARDIAC PAIN (4-10); Start 06/13/18 at 11:30 Docusate Sodium (Colace) 100 mg DAILY PRN PO CONSTIPATION; Start 06/21/18 at 12:00 Miscellaneous Information [facility] This patient gomes... PRN PRN XX WOUND CARE; Start 06/21/18 at 16:00 Amiodarone HCl (Cordarone) 200 mg BID PO Last administered on 07/10/18 22:00; Admin Dose 200 MG; Start 06/22/18 at 21:00 Bumetanide (Bumex) 1 mg DAILY@0600 PO Last administered on 07/11/18 05:39; Admin Dose 1 MG; Start 07/09/18 at 06:00 Warfarin Sodium (Coumadin) 6 mg DAILY@17 PO Last administered on 07/10/18 17:27; Admin Dose 6 MG; Start 07/09/18 at 17:00 Ferrous Sulfate (Ferrous Sulfate (Ec)) 325 mg BID PO Last administered on 07/10/18 21:59; Admin Dose 325 MG; Start 07/09/18 at 09:30 Docusate Sodium (Colace) 100 mg DAILY PO Last administered on 07/10/18 09:15; Admin Dose 100 MG; Start 07/10/18 at 09:00 BERNARDINO CAR Jul 11, 2018 08:55
--- NOTE | 2018-07-11 09:54 | PN ---
DATE: 07/11/2018 SUBJECTIVE: The patient continues to have ongoing hematuria. No other events noted. The patient st ates that swellings in her lower extremities have improved. OBJECTIVE: VITAL SIGNS: Blood pressure is 122/58, respirations 18, pulse 60, temperature 97.8. HEENT: Head is normocephalic. NECK: Supple. HEART: Regular rate. LUNGS: Show diminished breath sounds at the base. ABDOMEN: Soft, nontender to palpation without rebound or guarding. EXTREMITIES: Negative for clubbing, cyanosis. Positive edema. DERMATOLOGIC: No rashes. MUSCULOSKELETAL: No joint effusion. NEUROLOGIC: No change in exam. MEDICATIONS: Reviewed. LABORATORY DATA: From 07/11/2018 was reviewed. ASSESSMENT AND PLAN: 1. Nonoliguric acute kidney injury with previously normal baseline creatinine. Etiology of acute ki dney injury is secondary to acute tubular necrosis. Renal function is improved. Continue current tr eatment plan, supportive care, renally dose all medicines. 2. Hematuria. 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 The patient's hematuria is ongoing. Continue to monitor. Follow up with urology. 3. Volume overload. The patient's diuretics were adjusted. Lower extremity edema is improving. Mo nitor closely. Monitor renal function and electrolytes closely. 4. Hypokalemia, improved. 5. Anemia. Monitor hemoglobin and hematocrit levels. 6. Mechanical heart valve. Continue anticoagulation per cardiology. 7. Sepsis secondary to urinary tract infection. The patient is completing antibiotic course. 8. Hypothyroidism. Continue Synthroid. 9. Dyslipidemia. Continue statin therapy. 10. Hypertension. Continue current blood pressure regimen. 11. Intraabdominal hematoma. Continue to monitor. 12. Urinary tract infection. The patient is completing antibiotic course. 13. Liver cirrhosis. Continue to monitor. Dictated By: GWYN FABIAN DO NR/NTS Conf#: [id number] DID#: [id number] CC: CHRIS LAZAR MD; JULY VALENTIN MD; JOAQUIN DE LEON MD;*EndCC*
--- NOTE | 2018-07-11 11:36 | CONS ---
Assessment/Plan Assessment/Plan Hospital Course (Demo Recall) EMR reviewed. 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 Care coordinated and directed. Consultation Date/Type/Reason Admit Date/Time May 28, 2018 at 17:52 Initial Consult Date 06/03/18 Type of Consult ID Requesting Provider: JULY VALENTIN MD Date/Time of Note DATE: 07/11/18 TIME: 11:36 Exam/Review of Systems Exam Vitals Vital Signs Date Temp Pulse Resp B/P (MAP) Pulse Ox O2 O2 Flow FiO2 Time Delivery Rate 07/11/18 98.1 58 18 119/59 96 11:17 (79) 07/10/18 Room Air 16:00 Intake and Output 07/10/18 07/10/18 07/11/18 1414:59 22:59 06:59 IntakeIntake Total 680 ml 550 ml OutputOutput Total 1400 ml 1800 ml BalanceBalance -1400 ml -1120 ml 550 ml Results Result Diagram: 07/11/18 0619 07/11/18 0619 Results 24hrs Laboratory Tests Test 07/11/18 06:19 White Blood Count 4.5 L Red Blood Count 3.01 L Hemoglobin 9.6 L Hematocrit 30.2 L Mean Corpuscular Volume 100.3 Mean Corpuscular Hemoglobin 31.9 Mean Corpuscular Hemoglobin Concent 31.8 L Red Cell Distribution Width 18.2 H Platelet Count 165 Mean Platelet Volume 9.7 Immature Granulocytes % 1.300 H Neutrophils % 57.5 Lymphocytes % 31.2 Monocytes % 7.6 Eosinophils % 2.0 Basophils % 0.4 Nucleated Red Blood Cells % 0.0 Immature Granulocytes # 0.060 H Neutrophils # 2.6 Lymphocytes # 1.4 Monocytes # 0.3 Eosinophils # 0.1 Basophils # 0.0 Nucleated Red Blood Cells # 0.0 Prothrombin Time 30.0 #H Prothrombin Time Ratio 2.3 INR International Normalized Ratio 2.86 Sodium Level 139 Potassium Level 3.6 Chloride Level 102 Carbon Dioxide Level 33 H Anion Gap 4 L Blood Urea Nitrogen 23 H Creatinine 0.67 Est Glomerular Filtrat Rate mL/min > 60 Glucose Level 101 Calcium Level 8.9 Medications Medication Current Medications Levothyroxine Sodium (Synthroid) 50 mcg BEFORE BREAKFAST PO Last administered on 07/11/18at 05:39; Admin Dose 50 MCG; Start 05/30/18 at 07:00 Mometasone Furoate (Asmanex) 1 puff DAILY INH Last administered on 07/11/18at 08:50; Admin Dose 1 PUFF; Start 05/29/18 at 11:00 Atorvastatin Calcium (Lipitor) 10 mg DAILY@21 PO Last administered on 07/10/18at 21:59; Admin Dose 10 MG; Start 05/29/18 at 21:00 Latanoprost (Xalatan) 1 drop HS BOTH EYES Last administered on 07/10/18at 21:59; Admin Dose 1 DROP; Start 06/01/18 at 21:00 Amlodipine Besylate (Norvasc) 5 mg DAILY PO ; Start 06/03/18 at 09:00; Status Hold Pantoprazole (Protonix Tab) 40 mg DAILY@06 PO Last administered on 07/11/18at 05:39; Admin Dose 40 MG; Start 06/05/18 at 06:00 Metoclopramide HCl (Reglan) 5 mg TID PRN IV Nausea; Start 06/06/18 at 11:00 Polyethylene Glycol (Miralax) 17 gm BID PRN PO CONSTIPATION; Start 06/06/18 at 14:00 Bisacodyl (Dulcolax Supp) 10 mg DAILY PRN [place] CONSTIPATION; Start 06/06/18 at 14:00 IV Flush (NS 10 ml) 10 ml PRN PRN IV IV PROTOCOL; Start 06/06/18 at 16:00 Nystatin (Nystatin Susp) 5 ml QID PO Last administered on 07/11/18at 08:52; Admin Dose 5 ML; Start 06/06/18 at 17:00 Metoprolol Tartrate (Lopressor) 25 mg BID PO Last administered on 07/11/18at 08:52; Admin Dose 25 MG; Start 06/13/18 at 21:00 Metoprolol Tartrate (Lopressor) 5 mg Q4H PRN IV HR>110 Hold SBP<100; Start 06/13/18 at 10:30 Morphine Sulfate (morphine) 6 mg Q2H PRN PO FOR NON CARDIAC PAIN (4-10); Start 06/13/18 at 11:30 Docusate Sodium (Colace) 100 mg DAILY PRN PO CONSTIPATION; Start 06/21/18 at 12:00 Miscellaneous Information (Pending [facility] Order For Wound Care) This patient gomes... PRN PRN XX WOUND CARE; Start 06/21/18 at 16:00 Amiodarone HCl (Cordarone) 200 mg BID PO Last administered on 07/11/18 08:51; Admin Dose 200 MG; Start 06/22/18 at 21:00 Bumetanide (Bumex) 1 mg DAILY@0600 PO Last administered on 07/11/18at 05:39; Admin Dose 1 MG; Start 07/09/18 at 06:00 Warfarin Sodium (Coumadin) 6 mg DAILY@17 PO Last administered on 07/10/18at 17:27; Admin Dose 6 MG; Start 07/09/18 at 17:00 Ferrous Sulfate (Ferrous Sulfate (Ec)) 325 mg BID PO Last administered on 07/11/18 08:52; Admin Dose 325 MG; Start 07/09/18 at 09:30 Docusate Sodium (Colace) 100 mg DAILY PO Last administered on 07/11/18 08:52; Admin Dose 100 MG; Start 07/10/18 at 09:00 MARSHA IYER MD Jul 11, 2018 11:36
--- NOTE | 2018-07-11 13:00 | CONS ---
Assessment/Plan Assessment/Plan Hospital Course (Demo Recall) IMP: 1.cad s/p LHC with no sig obstructive cad. Mildly depressed LVEF--40-45% ? nonischemic process 2.HTN 3.RP Bleed s/p transfusions now stable and tolerating heparin/coumadin loading. Then had recurrent bled overnight now s/p covered stent to KETTLE OPERATOR HEAD/Ext iliac. Stable collection by abd CT 06/06 but still with pigtail catheter in place 4.HL 5.MVR-mechanical 6.anemia- s/p repair of R KETTLE OPERATOR HEAD/illiac. Had hemoptysis with subsequent drop in Hgb again and holding of heparin. Had some mild blood tinged sputum 7.Hypothyroid 8. GOMES-negative Head CT 9. Fevers-with positive ua 10. UTI-recurrent by u/a 06/29 11.ARF-? 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 Coagulopathy-now therapeutic 14. LE weakness-? compression from hematoma and exacerbated by femoral compression after cath-now resolved 15. arterial insuff- LLE- s/p ACID DUMPER/thrombolysis 06/04 successfully with palpable pulses/B DP/PT and remain that way 16. PAF/AFL-rate controlled 17. 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 18. Epistaxis-improved 19. anemia-stable overall with possible mild downtrend today Recc: -Now on tele -Continue BB with well controlled Hr's -Continue statin -s/p course of abx's -ongoing ID f/u -F/U polymerization kettle operator/K closely with creatnine now normalized and volume status improved. -Follow HGb closely which has been stable to improved actually -PT/ambulation -Follow volume status closely now off of bumex -will continue amio bid for now and follow rhythm clsoely as has now consverted to SR/SB -Urology following with findings of apparent bladder fistula and thus draining of the hematoma through the bladder causing hematuria. Per urology thus ok to continue coumadin. 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 -Continue coumadin and follow inr closely -s/p increase of bumex with now resolved LE edema Consultation Date/Type/Reason Admit Date/Time May 28, 2018 at 17:52 Initial Consult Date 05/28/18 Type of Consult Cardiology Reason for Consultation MVR/AFL/sob Requesting Provider: JULY VALENTIN MD Date/Time of Note DATE: 07/11/18 TIME: 12:55 Exam/Review of Systems Vital Signs Vitals Vital Signs Date Temp Pulse Resp B/P (MAP) Pulse Ox O2 O2 Flow FiO2 Time Delivery Rate 07/11/18 98.1 58 18 119/59 96 11:17 (79) 07/10/18 Room Air 16:00 Intake and Output 07/10/18 07/10/18 07/11/18 1515:00 23:00 07:00 IntakeIntake Total 680 ml 550 ml OutputOutput Total 1400 ml 1800 ml BalanceBalance -1400 ml -1120 ml 550 ml Exam Exam Review of Systems: CONSTITUTIONAL: No fevers, chills. PULMONARY: No sob CARDIOVASCULAR: No chest pain/palpitations GASTROINTESTINAL: No nausea/vomiting. GENITOURINARY: No hematuria/dysuria. MUSCULOSKELETAL: No myagias/arthalgias. PSYCHIATRIC: The patient denies depression. NEUROLOGIC: mild generalized weakness Constitutional: alert Psych: no complaints Head: normocephalic ENMT: mucosa pink and moist Neck: supple, jvd (9 cm water) Respiratory: diminished breath sounds Cardiovascular: regular rate and rhythm Gastrointestinal: soft, non-tender Musculoskeletal: muscle tone (normal) Extremities: edema (trace/B) Labs Result Diagram: 07/11/18 0619 07/11/18 0619 Results 24hrs Laboratory Tests Test 07/11/18 06:19 White Blood Count 4.5 L Red Blood Count 3.01 L Hemoglobin 9.6 L Hematocrit 30.2 L Mean Corpuscular Volume 100.3 Mean Corpuscular Hemoglobin 31.9 Mean Corpuscular Hemoglobin Concent 31.8 L Red Cell Distribution Width 18.2 H Platelet Count 165 Mean Platelet Volume 9.7 Immature Granulocytes % 1.300 H Neutrophils % 57.5 Lymphocytes % 31.2 Monocytes % 7.6 Eosinophils % 2.0 Basophils % 0.4 Nucleated Red Blood Cells % 0.0 Immature Granulocytes # 0.060 H Neutrophils # 2.6 Lymphocytes # 1.4 Monocytes # 0.3 Eosinophils # 0.1 Basophils # 0.0 Nucleated Red Blood Cells # 0.0 Prothrombin Time 30.0 #H Prothrombin Time Ratio 2.3 INR International Normalized Ratio 2.86 Sodium Level 139 Potassium Level 3.6 Chloride Level 102 Carbon Dioxide Level 33 H Anion Gap 4 L Blood Urea Nitrogen 23 H Creatinine 0.67 Est Glomerular Filtrat Rate mL/min > 60 Glucose Level 101 Calcium Level 8.9 Medications Medications Current Medications Levothyroxine Sodium (Synthroid) 50 mcg BEFORE BREAKFAST PO Last administered on 07/11/18 05:39; Admin Dose 50 MCG; Start 05/30/18 at 07:00 Mometasone Furoate (Asmanex) 1 puff DAILY INH Last administered on 07/11/18 08:50; Admin Dose 1 PUFF; Start 05/29/18 at 11:00 Atorvastatin Calcium (Lipitor) 10 mg DAILY@21 PO Last administered on 07/10/18 21:59; Admin Dose 10 MG; Start 05/29/18 at 21:00 Latanoprost (Xalatan) 1 drop HS BOTH EYES Last administered on 07/10/18 21:59; Admin Dose 1 DROP; Start 06/01/18 at 21:00 Amlodipine Besylate (Norvasc) 5 mg DAILY PO ; Start 06/03/18 at 09:00; Status Hold Pantoprazole (Protonix Tab) 40 mg DAILY@06 PO Last administered on 07/11/18 05:39; Admin Dose 40 MG; Start 06/05/18 at 06:00 Metoclopramide HCl (Reglan) 5 mg TID PRN IV Nausea; Start 06/06/18 at 11:00 Polyethylene Glycol (Miralax) 17 gm BID PRN PO CONSTIPATION; Start 06/06/18 at 14:00 Bisacodyl (Dulcolax Supp) 10 mg DAILY PRN [place] CONSTIPATION; Start 06/06/18 at 14:00 IV Flush (NS 10 ml) 10 ml PRN PRN IV IV PROTOCOL; Start 06/06/18 at 16:00 Nystatin (Nystatin Susp) 5 ml QID PO Last administered on 07/11/18at 12:39; Admin Dose 5 ML; Start 06/06/18 at 17:00 Metoprolol Tartrate (Lopressor) 25 mg BID PO Last administered on 07/11/18 08:52; Admin Dose 25 MG; Start 06/13/18 at 21:00 Metoprolol Tartrate (Lopressor) 5 mg Q4H PRN IV HR>110 Hold SBP<100; Start 06/13/18 at 10:30 Morphine Sulfate (morphine) 6 mg Q2H PRN PO FOR NON CARDIAC PAIN (4-10); Start 06/13/18 at 11:30 Docusate Sodium (Colace) 100 mg DAILY PRN PO CONSTIPATION; Start 06/21/18 at 12:00 Miscellaneous Information (Pending [facility] Order For Wound Care) This patient gomes... PRN PRN XX WOUND CARE; Start 06/21/18 at 16:00 Amiodarone HCl (Cordarone) 200 mg BID PO Last administered on 07/11/18at 08:51; Admin Dose 200 MG; Start 06/22/18 at 21:00 Bumetanide (Bumex) 1 mg DAILY@0600 PO Last administered on 07/11/18at 05:39; Admin Dose 1 MG; Start 07/09/18 at 06:00 Warfarin Sodium (Coumadin) 6 mg DAILY@17 PO Last administered on 07/10/18at 17:27; Admin Dose 6 MG; Start 07/09/18 at 17:00 Ferrous Sulfate (Ferrous Sulfate (Ec)) 325 mg BID PO Last administered on 07/11/18at 08:52; Admin Dose 325 MG; Start 07/09/18 at 09:30 Docusate Sodium (Colace) 100 mg DAILY PO Last administered on 07/11/18at 08:52; Admin Dose 100 MG; Start 07/10/18 at 09:00 CHRIS LAZAR Jul 11, 2018 13:00
--- NOTE | 2018-07-11 15:28 | CONS ---
Assessment/Plan Assessment/Plan Hospital Course (Demo Recall) # sepsis, cardiopulmonary - s/p severe sepsis due to UTI, resolved - s/p SIRS due to acute blood loss, resolved - s/p L heart catheterization on 05/27/2018 showing no significant obstructive CAD - CAD - s/p CABG in [place] in 1982 - H/o MVR with mechanical valve, in 1999 - Hypertension - PAF - in [place] - Asthma # urology/renal, GI - hematuria caused by ruptured urinary bladder - slowly improving - CT abd pelvis on 07/02/18 showed large extravasation of contrast administered through a F/c into the large anterior pelvic fluid collection is demonstrated, consistent with bladder rupture. no contrast seen within the vagina to suggest fistulization with the overlying urinary bladder. - UTI due to hafnai alvei and pediococci on 06/30/18. Pt completed pip/tazo (07/02/18-07/05/2018) - S/p UTI due to E. coli. 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 Hughes Thank you. Consultation Date/Type/Reason Admit Date/Time May 28, 2018 at 17:52 Initial Consult Date 06/03/18 Type of Consult ID Requesting Provider: JULY VALENTIN MD Date/Time of Note DATE: 07/11/18 TIME: 15:25 24 HR Interval Summary Free Text/Dictation Patient denied all ROS, states she has been out of bed walking. No acute issues reported by nursing and patient has remained afebrile. Urine still with hematuria but hogshead dumper. Exam/Review of Systems Exam Vitals Vital Signs Date Temp Pulse Resp B/P (MAP) Pulse Ox O2 O2 Flow FiO2 Time Delivery Rate 07/11/18 58 12:01 07/11/18 98.1 18 119/59 96 11:17 (79) 07/10/18 Room Air 16:00 Intake and Output 07/10/18 07/10/18 07/11/18 1515:00 23:00 07:00 IntakeIntake Total 680 ml 550 ml OutputOutput Total 1400 ml 1800 ml BalanceBalance -1400 ml -1120 ml 550 ml Allergies Coded Allergies No Known Allergy (Unverified06/09/18) Exam Constitutional: alert, oriented, well developed Psych: no complaints, nl mood/affect Head: normocephalic, atraumatic Eyes: nl conjunctiva, nl lids, nl sclera ENMT: nl external ears & nose, nl nasal mucosa & septum, mucosa pink and moist (no thrush) Neck: supple, non-tender Respiratory: clear to auscultation, normal air movement Cardiovascular: regular rate and rhythm, nl pulses Gastrointestinal: soft, non-tender, bowel sounds (normoactive)) Genitourinary - Female: other (f/c draining red) Musculoskeletal: nl extremities to inspection Extremities: normal pulses Neurological: 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, nl mental status, nl speech, nl strength Skin: nl turgor, ecchymosis (scattered); No rash or lesions Results Result Diagram: 07/11/18 0619 07/11/18 0619 Results 24hrs Laboratory Tests Test 07/11/18 06:19 White Blood Count 4.5 L Red Blood Count 3.01 L Hemoglobin 9.6 L Hematocrit 30.2 L Mean Corpuscular Volume 100.3 Mean Corpuscular Hemoglobin 31.9 Mean Corpuscular Hemoglobin Concent 31.8 L Red Cell Distribution Width 18.2 H Platelet Count 165 Mean Platelet Volume 9.7 Immature Granulocytes % 1.300 H Neutrophils % 57.5 Lymphocytes % 31.2 Monocytes % 7.6 Eosinophils % 2.0 Basophils % 0.4 Nucleated Red Blood Cells % 0.0 Immature Granulocytes # 0.060 H Neutrophils # 2.6 Lymphocytes # 1.4 Monocytes # 0.3 Eosinophils # 0.1 Basophils # 0.0 Nucleated Red Blood Cells # 0.0 Prothrombin Time 30.0 #H Prothrombin Time Ratio 2.3 INR International Normalized Ratio 2.86 Sodium Level 139 Potassium Level 3.6 Chloride Level 102 Carbon Dioxide Level 33 H Anion Gap 4 L Blood Urea Nitrogen 23 H Creatinine 0.67 Est Glomerular Filtrat Rate mL/min > 60 Glucose Level 101 Calcium Level 8.9 Medications Medication Current Medications Levothyroxine Sodium (Synthroid) 50 mcg BEFORE BREAKFAST PO Last administered on 07/11/18 05:39; Admin Dose 50 MCG; Start 05/30/18 at 07:00 Mometasone Furoate (Asmanex) 1 puff DAILY INH Last administered on 07/11/18 08:50; Admin Dose 1 PUFF; Start 05/29/18 at 11:00 Atorvastatin Calcium (Lipitor) 10 mg DAILY@21 PO Last administered on 07/10/18 21:59; Admin Dose 10 MG; Start 05/29/18 at 21:00 Latanoprost (Xalatan) 1 drop HS BOTH EYES Last administered on 07/10/18 21:59; Admin Dose 1 DROP; Start 06/01/18 at 21:00 Amlodipine Besylate (Norvasc) 5 mg DAILY PO ; Start 06/03/18 at 09:00; Status Hold Pantoprazole (Protonix Tab) 40 mg DAILY@06 PO Last administered on 07/11/18 05:39; Admin Dose 40 MG; Start 06/05/18 at 06:00 Metoclopramide HCl (Reglan) 5 mg TID PRN IV Nausea; Start 06/06/18 at 11:00 Polyethylene Glycol (Miralax) 17 gm BID PRN PO CONSTIPATION; Start 06/06/18 at 14:00 Bisacodyl (Dulcolax Supp) 10 mg DAILY PRN [place] CONSTIPATION; Start 06/06/18 at 14:00 IV Flush (NS 10 ml) 10 ml PRN PRN IV IV PROTOCOL; Start 06/06/18 at 16:00 Nystatin (Nystatin Susp) 5 ml QID PO Last administered on 07/11/18 12:39; Admin Dose 5 ML; Start 06/06/18 at 17:00 Metoprolol Tartrate (Lopressor) 25 mg BID PO Last administered on 07/11/18 08:52; Admin Dose 25 MG; Start 06/13/18 at 21:00 Metoprolol Tartrate (Lopressor) 5 mg Q4H PRN IV HR>110 Hold SBP<100; Start 06/13/18 at 10:30 Morphine Sulfate (morphine) 6 mg Q2H PRN PO FOR NON CARDIAC PAIN (4-10); Start 06/13/18 at 11:30 Docusate Sodium (Colace) 100 mg DAILY PRN PO CONSTIPATION; Start 06/21/18 at 12:00 Miscellaneous Information (Pending [facility] Order For Wound Care) This patient gomes... PRN PRN XX WOUND CARE; Start 06/21/18 at 16:00 Amiodarone HCl (Cordarone) 200 mg BID PO Last administered on 07/11/18 08:51; Admin Dose 200 MG; Start 06/22/18 at 21:00 Bumetanide (Bumex) 1 mg DAILY@0600 PO Last administered on 07/11/18 05:39; Admin Dose 1 MG; Start 07/09/18 at 06:00 Warfarin Sodium (Coumadin) 6 mg DAILY@17 PO Last administered on 07/10/18 17:27; Admin Dose 6 MG; Start 07/09/18 at 17:00 Ferrous Sulfate (Ferrous Sulfate (Ec)) 325 mg BID PO Last administered on 07/11/18 08:52; Admin Dose 325 MG; Start 07/09/18 at 09:30 Docusate Sodium (Colace) 100 mg DAILY PO Last administered on 07/11/18 08:52; Admin Dose 100 MG; Start 07/10/18 at 09:00 WILIAM HUI NP Jul 11, 2018 15:28
--- NOTE | 2018-07-11 16:29 | PN ---
Date/Time of Note Date/Time of Note DATE: 07/11/18 TIME: 16:27 Assessment/Plan VTE Prophylaxis Risk score (from Ns)>0 risk: 5 SCD applied (from Ns): Yes Pharmacological prophylaxis: warfarin tx Lines/Catheters IV Catheter Type (from Nrs): PICC Line Central line still needed: Yes Urinary Cath still in place: Yes Reason Cath still needed: urinary retention Assessment/Plan Hospital Course Patient continues to have hematuria, denies SOB, denies CP, continue PT, ambulation. 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 Continue Mensah, monitor. Dr. Ashford is following in urology consultation. -Anemia of acute blood loss, transfuse PRN, monitor H&H. -S/p UTI, completed treatment with Zosyn. Dr. Castellanos is following in infection disease consultation. -Liver cirrhosis per CT, Dr Cruz is following in GI consultation. -S/p Nose/oropharyngeal bleed on 06/11/2018, stopped after heparin was held. -Retroperitoneal bleed secondary to vascular injury status post stent placement. Monitor H and H. S/p eval by Dr. Kilpatrick, vascular surgery consultation. -Status post left heart catheterization with no significant obstructive coronary artery disease by Dr. Moreno on 05/27/2018. -Anemia of acute blood loss, status post blood transfusion, continue to monitor hemoglobin and hematocrit. -Urinary incontinence. -Acute illness myopathy -Status post mitral valve replacement with mechanical valve in 1999 in [facility]. Continue Coumadin, monitor PT/INR. -HTN, continue metoprolol -Hyperlipidemia -Hypothyroidism, continue levothyroxine -History of asthma Further recommendations based on clinical course. Plan of care discussed with Dr. Painter. Result Diagram: 07/11/18 0619 07/11/18 0619 Results 24hrs Laboratory Tests Test 07/11/18 06:19 White Blood Count 4.5 L Red Blood Count 3.01 L Hemoglobin 9.6 L Hematocrit 30.2 L Mean Corpuscular Volume 100.3 Mean Corpuscular Hemoglobin 31.9 Mean Corpuscular Hemoglobin Concent 31.8 L Red Cell Distribution Width 18.2 H Platelet Count 165 Mean Platelet Volume 9.7 Immature Granulocytes % 1.300 H Neutrophils % 57.5 Lymphocytes % 31.2 Monocytes % 7.6 Eosinophils % 2.0 Basophils % 0.4 Nucleated Red Blood Cells % 0.0 Immature Granulocytes # 0.060 H Neutrophils # 2.6 Lymphocytes # 1.4 Monocytes # 0.3 Eosinophils # 0.1 Basophils # 0.0 Nucleated Red Blood Cells # 0.0 Prothrombin Time 30.0 #H Prothrombin Time Ratio 2.3 INR International Normalized Ratio 2.86 Sodium Level 139 Potassium Level 3.6 Chloride Level 102 Carbon Dioxide Level 33 H Anion Gap 4 L Blood Urea Nitrogen 23 H Creatinine 0.67 Est Glomerular Filtrat Rate mL/min > 60 Glucose Level 101 Calcium Level 8.9 Exam/Review of Systems Exam Vitals Vital Signs Date Temp Pulse Resp B/P (MAP) Pulse Ox O2 O2 Flow FiO2 Time Delivery Rate 07/11/18 98.2 63 18 128/60 95 15:30 (82) 07/10/18 Room Air 16:00 Intake and Output 07/10/18 07/10/18 07/11/18 1515:00 23:00 07:00 IntakeIntake Total 680 ml 550 ml OutputOutput Total 1400 ml 1800 ml BalanceBalance -1400 ml -1120 ml 550 ml Exam Constitutional: alert, oriented Respiratory: clear to auscultation Cardiovascular: irregular rhythm Gastrointestinal: soft, non-tender Genitourinary - Female: other (Mensah ) Extremities: normal pulses Skin: nl turgor Results Results 24hrs Laboratory Tests Test 07/11/18 06:19 White Blood Count 4.5 L Red Blood Count 3.01 L Hemoglobin 9.6 L Hematocrit 30.2 L Mean Corpuscular Volume 100.3 Mean Corpuscular Hemoglobin 31.9 Mean Corpuscular Hemoglobin Concent 31.8 L Red Cell Distribution Width 18.2 H Platelet Count 165 Mean Platelet Volume 9.7 Immature Granulocytes % 1.300 H Neutrophils % 57.5 Lymphocytes % 31.2 Monocytes % 7.6 Eosinophils % 2.0 Basophils % 0.4 Nucleated Red Blood Cells % 0.0 Immature Granulocytes # 0.060 H Neutrophils # 2.6 Lymphocytes # 1.4 Monocytes # 0.3 Eosinophils # 0.1 Basophils # 0.0 Nucleated Red Blood Cells # 0.0 Prothrombin Time 30.0 #H Prothrombin Time Ratio 2.3 INR International Normalized Ratio 2.86 Sodium Level 139 Potassium Level 3.6 Chloride Level 102 Carbon Dioxide Level 33 H Anion Gap 4 L Blood Urea Nitrogen 23 H Creatinine 0.67 Est Glomerular Filtrat Rate mL/min > 60 Glucose Level 101 Calcium Level 8.9 Medications Medication Current Medications Levothyroxine Sodium (Synthroid) 50 mcg BEFORE BREAKFAST PO Last administered on 07/11/18 05:39; Admin Dose 50 MCG; Start 05/30/18 at 07:00 Mometasone Furoate (Asmanex) 1 puff DAILY INH Last administered on 07/11/18at 08:50; Admin Dose 1 PUFF; Start 05/29/18 at 11:00 Atorvastatin Calcium (Lipitor) 10 mg DAILY@21 PO Last administered on 07/10/18 21:59; Admin Dose 10 MG; Start 05/29/18 at 21:00 Latanoprost (Xalatan) 1 drop HS BOTH EYES Last administered on 07/10/18 21:59; Admin Dose 1 DROP; Start 06/01/18 at 21:00 Amlodipine Besylate (Norvasc) 5 mg DAILY PO ; Start 06/03/18 at 09:00; Status Hold Pantoprazole (Protonix Tab) 40 mg DAILY@06 PO Last administered on 07/11/18at 05:39; Admin Dose 40 MG; Start 06/05/18 at 06:00 Metoclopramide HCl (Reglan) 5 mg TID PRN IV Nausea; Start 06/06/18 at 11:00 Polyethylene Glycol (Miralax) 17 gm BID PRN PO CONSTIPATION; Start 06/06/18 at 14:00 Bisacodyl (Dulcolax Supp) 10 mg DAILY PRN [place] CONSTIPATION; Start 06/06/18 at 14:00 IV Flush (NS 10 ml) 10 ml PRN PRN IV IV PROTOCOL; Start 06/06/18 at 16:00 Nystatin (Nystatin Susp) 5 ml QID PO Last administered on 07/11/18at 12:39; Admin Dose 5 ML; Start 06/06/18 at 17:00 Metoprolol Tartrate (Lopressor) 25 mg BID PO Last administered on 07/11/18at 08:52; Admin Dose 25 MG; Start 06/13/18 at 21:00 Metoprolol Tartrate (Lopressor) 5 mg Q4H PRN IV HR>110 Hold SBP<100; Start 06/13/18 at 10:30 Morphine Sulfate (morphine) 6 mg Q2H PRN PO FOR NON CARDIAC PAIN (4-10); Start 06/13/18 at 11:30 Docusate Sodium (Colace) 100 mg DAILY PRN PO CONSTIPATION; Start 06/21/18 at 12:00 Miscellaneous Information (Pending [facility] Order For Wound Care) This patient gomes... PRN PRN XX WOUND CARE; Start 06/21/18 at 16:00 Amiodarone HCl (Cordarone) 200 mg BID PO Last administered on 07/11/18at 08:51; Admin Dose 200 MG; Start 06/22/18 at 21:00 Bumetanide (Bumex) 1 mg DAILY@0600 PO Last administered on 07/11/18 05:39; Admin Dose 1 MG; Start 07/09/18 at 06:00 Warfarin Sodium (Coumadin) 6 mg DAILY@17 PO Last administered on 07/10/18at 17:27; Admin Dose 6 MG; Start 07/09/18 at 17:00 Ferrous Sulfate (Ferrous Sulfate (Ec)) 325 mg BID PO Last administered on 07/11/18at 08:52; Admin Dose 325 MG; Start 07/09/18 at 09:30 Docusate Sodium (Colace) 100 mg DAILY PO Last administered on 07/11/18 08:52; Admin Dose 100 MG; Start 07/10/18 at 09:00 KRISTY MCCULLOUGH Jul 11, 2018 16:29
[2018-07-11] MEDS: WARFARIN 3 MG TAB PO SCH (16:41)
--- NOTE | 2018-07-11 19:31 | CONS ---
Consult Date/Type/Reason Admit Date/Time May 28, 2018 at 17:52 Initial Consult Date 06/03/18 Type of Consultation: Urology Reason for Consultation Hematuria, pelvic hematoma with fistula into the bladder Requesting Provider: JULY VALENTIN MD Date/Time of Note DATE: 07/11/18 TIME: 19:27 Subjective Patient denies any pain and she was up walking 3 times today. Objective Vitals Vital Signs Date Temp Pulse Resp B/P (MAP) Pulse Ox O2 O2 Flow FiO2 Time Delivery Rate 07/11/18 66 16:01 07/11/18 98.2 18 128/60 95 15:30 (82) 07/10/18 Room Air 16:00 Intake and Output 07/10/18 07/10/18 07/11/18 1414:59 22:59 06:59 IntakeIntake Total 680 ml 550 ml OutputOutput Total 1400 ml 1800 ml BalanceBalance -1400 ml -1120 ml 550 ml Exam The Mensah catheter is draining more bloody urine when she gets up and walk around. Less when she is laying down Results/Medications Result Diagram: 07/11/1819 07/11/1819 Results 24 hrs Laboratory Tests Test 07/11/18 06:19 White Blood Count 4.5 L Red Blood Count 3.01 L Hemoglobin 9.6 L Hematocrit 30.2 L Mean Corpuscular Volume 100.3 Mean Corpuscular Hemoglobin 31.9 Mean Corpuscular Hemoglobin Concent 31.8 L Red Cell Distribution Width 18.2 H Platelet Count 165 Mean Platelet Volume 9.7 Immature Granulocytes % 1.300 H Neutrophils % 57.5 Lymphocytes % 31.2 Monocytes % 7.6 Eosinophils % 2.0 Basophils % 0.4 Nucleated Red Blood Cells % 0.0 Immature Granulocytes # 0.060 H Neutrophils # 2.6 Lymphocytes # 1.4 Monocytes # 0.3 Eosinophils # 0.1 Basophils # 0.0 Nucleated Red Blood Cells # 0.0 Prothrombin Time 30.0 #H Prothrombin Time Ratio 2.3 INR International Normalized Ratio 2.86 Sodium Level 139 Potassium Level 3.6 Chloride Level 102 Carbon Dioxide Level 33 H Anion Gap 4 L Blood Urea Nitrogen 23 H Creatinine 0.67 Est Glomerular Filtrat Rate mL/min > 60 Glucose Level 101 Calcium Level 8.9 Home Meds Reported Medications Albuterol Sulfate* (Ventolin HFA*) 18 Gm Hfa.aer.ad, 2 PUFF INHALATION Q4H, #1 INHALER 05/26/18 Ergocalciferol (Vitamin D2) (VITAMIN D2) 50,000 Unit Capsule, 71480 UNIT PO [id number], CAP 05/23/18 Warfarin Sodium* (Coumadin*) 5 Mg Tablet, 5 MG PO Q TUES,THUR,SAT, TAB 05/23/18 Warfarin Sodium* (Coumadin*) 4 Mg Tablet, 4 MG PO Q MON,WED,FRI,SUN, TAB 05/23/18 Furosemide* (Furosemide*) 20 Mg Tablet, 20 MG PO DAILY, #60 TAB TAKE Q 2 DAYS 05/23/18 Simvastatin* (Zocor*) 20 Mg Tablet, 20 MG PO QHS, #30 TAB 05/23/18 Ranitidine Hcl* (Ranitidine Hcl*) 150 Mg Tablet, 150 MG PO HS, #30 TAB 05/23/18 Acetaminophen (Mapap) 500 Mg Capsule, 500 MG PO BID PRN for PAIN, CAP 05/23/18 Levothyroxine Sodium* (Levothyroxine Sodium*) 50 Mcg Tablet, 50 MCG PO BEFORE BREAKFAST, #30 TAB 05/23/18 Spironolactone* (Aldactone*) 25 Mg Tablet, 25 MG PO DAILY, #30 TAB 05/23/18 Beclomethasone Dipropionate (Qvar Redihaler (40 MCG)) 10.6 Gm Hfa.aeroba, 10.6 GM IH DAILY, INH 05/23/18 Amlodipine Besylate* (Norvasc*) 5 Mg Tablet, 5 MG PO BID, TAB 05/23/18 Losartan-Hydrochlorothiazide (Losartan-HCTZ) 100-25 Mg Tab, 1 TAB PO DAILY, TAB 05/23/18 Medications Current Medications Levothyroxine Sodium (Synthroid) 50 mcg BEFORE BREAKFAST PO Last administered on 07/11/18at 05:39; Admin Dose 50 MCG; Start 05/30/18 at 07:00 Mometasone Furoate (Asmanex) 1 puff DAILY INH Last administered on 07/11/18at 08:50; Admin Dose 1 PUFF; Start 05/29/18 at 11:00 Atorvastatin Calcium (Lipitor) 10 mg DAILY@21 PO Last administered on 07/10/18at 21:59; Admin Dose 10 MG; Start 05/29/18 at 21:00 Latanoprost (Xalatan) 1 drop HS BOTH EYES Last administered on 07/10/18at 21:59; Admin Dose 1 DROP; Start 06/01/18 at 21:00 Amlodipine Besylate (Norvasc) 5 mg DAILY PO ; Start 06/03/18 at 09:00; Status Hold Pantoprazole (Protonix Tab) 40 mg DAILY@06 PO Last administered on 07/11/18at 05 :39; Admin Dose 40 MG; Start 06/05/18 at 06:00 Metoclopramide HCl (Reglan) 5 mg TID PRN IV Nausea; Start 06/06/18 at 11:00 Polyethylene Glycol (Miralax) 17 gm BID PRN PO CONSTIPATION; Start 06/06/18 at 14:00 Bisacodyl (Dulcolax Supp) 10 mg DAILY PRN [place] CONSTIPATION; Start 06/06/18 at 14:00 IV Flush (NS 10 ml) 10 ml PRN PRN IV IV PROTOCOL; Start 06/06/18 at 16:00 Nystatin (Nystatin Susp) 5 ml QID PO Last administered on 07/11/18at 16:41; Admin Dose 5 ML; Start 06/06/18 at 17:00 Metoprolol Tartrate (Lopressor) 25 mg BID PO Last administered on 07/11/18at 08:52; Admin Dose 25 MG; Start 06/13/18 at 21:00 Metoprolol Tartrate (Lopressor) 5 mg Q4H PRN IV HR>110 Hold SBP<100; Start 06/13/18 at 10:30 Morphine Sulfate (morphine) 6 mg Q2H PRN PO FOR NON CARDIAC PAIN (4-10); Start 06/13/18 at 11:30 Docusate Sodium (Colace) 100 mg DAILY PRN PO CONSTIPATION; Start 06/21/18 at 12:00 [facility] This patient gomes... PRN PRN XX WOUND CARE; Start 06/21/18 at 16:00 Amiodarone HCl (Cordarone) 200 mg BID PO Last administered on 07/11/18at 08:51; Admin Dose 200 MG; Start 06/22/18 at 21:00 Bumetanide (Bumex) 1 mg DAILY@0600 PO Last administered on 07/11/18at 05:39; Admin Dose 1 MG; Start 07/09/18 at 06:00 Warfarin Sodium (Coumadin) 6 mg DAILY@17 PO Last administered on 07/11/18at 16:41; Admin Dose 6 MG; Start 07/09/18 at 17:00 Ferrous Sulfate (Ferrous Sulfate (Ec)) 325 mg BID PO Last administered on 07/11/18 08:52; Admin Dose 325 MG; Start 07/09/18 at 09:30 Docusate Sodium (Colace) 100 mg DAILY PO Last administered on 07/11/18 08:52; Admin Dose 100 MG; Start 07/10/18 at 09:00 Assessment/Plan Hospital Course (Demo Recall) 62-year-old female underwent coronary angiogram. 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 I did insert the catheter for her and she was anuric. Since then she has improved and has been making urine and the urine was clear however today her urine was bloody. We checked her postvoid residual and she had only 175 mL. Urine was sent for culture and sensitivity. Her last urine culture was no growth after 48 hours. The patient has been having hematuria for the past 2 days and today as she is to drop to have the physical therapy a lot of blood came out. I ordered CT scan of the abdomen and pelvis to see if the hematoma has fistulized into the bladder. She underwent a CT scan and that was reported: 1. Compared to the previous exam of 06/06/2018, the previously seen right lower quadrant pigtail catheter has been removed and the chronic hemoperitoneum or pelvic hematoma has decreased in volume now estimated at 1033 cc compared to all 1260 cc with evolution of the blood products, the attenuation decreasing from 72 HU to 45 HU. Continued surveillance is recommended with follow-up CT as determined clinically. 2. Atrophic uterus without endometrial thickening or other findings to explain the patient's provided history of vaginal bleeding. 3. Post thoracotomy changes with marked cardiomegaly, mitral valve prosthesis, left ventricular apex calcification and increased bibasilar subsegmental atelectasis. 4. Nodular contour to the liver consistent with cirrhosis is again noted. 5. Cholelithiasis without evidence for cholecystitis. 6. Stable mild splenomegaly. 7. Tiny left intrarenal calculus without hydronephrosis. 8. Contracted urinary bladder is difficult to evaluate. 9. Resolved small bowel wall thickening, enteric contrast media within the colon with diverticular disease but no diverticulitis. 10. Resolved anasarca pattern of the subcutaneous tissues I did call the radiologist who read the CT scan and discussed with him the clinical reasons I requested the CT scan and the suspicion that I had for a f istula. He did review the CT while I was talking with him and added an amendment to the report that says: AMENDMENT: 07/01/2018 7:59:21 PM Anjum Magallon D.o A telephone conversation takes place with the patient's urologist, Dr. Godwin, at 19:50 and he kindly provides additional history of sudden onset of hematuria upon standing. Upon further review of the images, there is loss of the normal fat plane between the pelvic hematoma with the anterior dome of the urinary bladder which cannot exclude the possibility of a fistula between the hematoma and a bladder that would explain the patients hematuria. There is preservation of the fat plane between the hematoma and the middle and inferior portion of the anterior urinary bladder. There is no evidence of loss of fat plane between the hematoma and vagina to suggest a fistula in this location. It is discussed that the patient would likely benefit from further evaluation with a CT cystogram performed in the prone position to limit the amount of contrast to opacify the potential fistula. 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 The bleeding in her urine is coming from that hematoma. I did show her son the pictures and explained to him that if the hematoma drains through the bladder we just have to keep the Mensah catheter in and wait for it to drain completely and then the bladder hopefully will heal by itself and if it does not we could always do surgery and close it. At the present the Mensah catheter continues to drain blood-tinged urine. The suprapubic hematoma is smaller in size. Patient is comfortable and she has no pain. The abdomen is softer and the suprapubic mass continues to get smaller. The suprapubic hematoma is getting smaller and the bladder urine is blood- tinged. For now continue the same: Keep the Mensah catheter in place, Patient also was restarted on Coumadin . JOAQUIN DE LEON MD Jul 11, 2018 19:31
[2018-07-11] MEDS: ATORVASTATIN 10 MG TAB PO SCH (21:29)
[2018-07-11] MEDS: LATANOPROST 0.005% 2.5 ML OPH BOTH EYES SCH (21:29)
[2018-07-12] VITALS (13 sets, daily range): BP systolic 101–132; BP diastolic 50–60; PULSE 58–77; RESP 18–20
[2018-07-12] MEDS: PANTOPRAZOLE (EC) 40 MG TAB PO SCH (06:54)
[2018-07-12] MEDS: LEVOTHYROXINE 50 MCG TAB PO SCH (06:54)
--- NOTE | 2018-07-12 08:21 | CONS ---
Assessment/Plan Assessment/Plan Hospital Course (Demo Recall) 62 yo female Interval hx: Positive DELGADO screen. DELGADO titer 1:160. Speckled pattern. Tolerat ing regular diet. No nausea or abdominal pain. BM brown and soft. 1. 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 -Neg hepatitis panel -Antimitochondrial antibody, anti-smooth muscle antibody negative, ceruplasmin wnl. 2. Coronary artery disease, nonobstructive, with ejection fraction of 40 to 45% , nonischemic. 3. Hypertension. 4. Retroperitoneal bleed. 5. Mitral valve replacement due to mechanical mitral valve. 6. Hypothyroidism. 7. Urinary tract infection. 8. Paroxysmal atrial fibrillation, rate is controlled. 9. Hematuria. 10. Status post rupture of the urinary bladder. 11. Epistaxis -resolved 12. Positive stool guaiac may be from epistaxis 13. Coagulopathy- pt on coumadin 14. Leukopenia Plan Monitor HH and for signs of GI bleeding Follow up with Dr. Crzu as outpatient Pt examined and plan of care discussed with Dr. Cruz Consultation Date/Type/Reason Admit Date/Time May 28, 2018 at 17:52 Initial Consult Date 06/03/18 Requesting Provider: JULY VALENTIN MD Date/Time of Note DATE: 07/12/18 TIME: 08:12 Exam/Review of Systems Exam Vitals Vital Signs Date Temp Pulse Resp B/P (MAP) Pulse Ox O2 O2 Flow FiO2 Time Delivery Rate 07/12/18 98.0 64 19 122/59 96 07:45 (80) 07/10/18 Room Air 16:00 Intake and Output 07/11/18 07/11/18 07/12/18 1515:00 23:00 07:00 IntakeIntake Total 500 ml 200 ml OutputOutput Total 850 ml 350 ml BalanceBalance -350 ml -150 ml Constitutional: alert, oriented Psych: no complaints Head: normocephalic Eyes: nl sclera, PERRL ENMT: mucosa pink and moist Respiratory: clear to auscultation Cardiovascular: regular rate and rhythm Gastrointestinal: soft, non-tender Musculoskeletal: nl extremities to inspection, muscle weakness Results Result Diagram: 07/12/18 0648 07/12/18 0657 Results 24hrs Laboratory Tests Test 07/12/18 06:34 07/12/18 06:48 07/12/18 06:57 Prothrombin Time 34.0 H Prothrombin Time Ratio 2.7 INR International Normalized Ratio 3.36 Activated Partial Thromboplast Time 38.4 H White Blood Count 5.4 Red Blood Count 2.27 #L Hemoglobin 7.3 #L Hematocrit 22.9 #L Mean Corpuscular Volume 100.9 Mean Corpuscular Hemoglobin 32.2 Mean Corpuscular Hemoglobin Concent 31.9 L Red Cell Distribution Width 17.7 H Platelet Count 180 Mean Platelet Volume 9.7 Immature Granulocytes % 1.300 H Neutrophils % 57.7 Lymphocytes % 31.2 Monocytes % 7.3 Eosinophils % 1.9 Basophils % 0.6 Nucleated Red Blood Cells % 0.0 Immature Granulocytes # 0.070 H Neutrophils # 3.1 Lymphocytes # 1.7 Monocytes # 0.4 Eosinophils # 0.1 Basophils # 0.0 Nucleated Red Blood Cells # 0.0 Sodium Level 139 Potassium Level 3.9 Chloride Level 101 Carbon Dioxide Level 31 Anion Gap 7 Blood Urea Nitrogen 24 H Creatinine 0.65 Est Glomerular Filtrat Rate mL/min > 60 Glucose Level 88 Calcium Level 8.9 Medications Medication Current Medications Levothyroxine Sodium (Synthroid) 50 mcg BEFORE BREAKFAST PO Last administered on 07/12/18 06:54; Admin Dose 50 MCG; Start 05/30/18 at 07:00 Mometasone Furoate (Asmanex) 1 puff DAILY INH Last administered on 07/11/18at 08:50; Admin Dose 1 PUFF; Start 05/29/18 at 11:00 Atorvastatin Calcium (Lipitor) 10 mg DAILY@21 PO Last administered on 07/11/18at 21:29; Admin Dose 10 MG; Start 05/29/18 at 21:00 Latanoprost (Xalatan) 1 drop HS BOTH EYES Last administered on 07/11/18 21:29; Admin Dose 1 DROP; Start 06/01/18 at 21:00 Amlodipine Besylate (Norvasc) 5 mg DAILY PO ; Start 06/03/18 at 09:00; Status Hold Pantoprazole (Protonix Tab) 40 mg DAILY@06 PO Last administered on 07/12/18 06 :54; Admin Dose 40 MG; Start 06/05/18 at 06:00 Metoclopramide HCl (Reglan) 5 mg TID PRN IV Nausea; Start 06/06/18 at 11:00 Polyethylene Glycol (Miralax) 17 gm BID PRN PO CONSTIPATION; Start 06/06/18 at 14:00 Bisacodyl (Dulcolax Supp) 10 mg DAILY PRN [place] CONSTIPATION; Start 06/06/18 at 14:00 IV Flush (NS 10 ml) 10 ml PRN PRN IV IV PROTOCOL; Start 06/06/18 at 16:00 Nystatin (Nystatin Susp) 5 ml QID PO Last administered on 07/11/18at 21:30; Admin Dose 5 ML; Start 06/06/18 at 17:00 Metoprolol Tartrate (Lopressor) 25 mg BID PO Last administered on 07/11/18 21:30; Admin Dose 25 MG; Start 06/13/18 at 21:00 Metoprolol Tartrate (Lopressor) 5 mg Q4H PRN IV HR>110 Hold SBP<100; Start 06/13/18 at 10:30 Morphine Sulfate (morphine) 6 mg Q2H PRN PO FOR NON CARDIAC PAIN (4-10); Start 06/13/18 at 11:30 Docusate Sodium (Colace) 100 mg DAILY PRN PO CONSTIPATION; Start 06/21/18 at 12:00 Miscellaneous Information (Pending [facility] Order For Wound Care) This patient gomes... PRN PRN XX WOUND CARE; Start 06/21/18 at 16:00 Amiodarone HCl (Cordarone) 200 mg BID PO Last administered on 07/11/18at 21:31; Admin Dose 200 MG; Start 06/22/18 at 21:00 Bumetanide (Bumex) 1 mg DAILY@0600 PO Last administered on 07/11/18at 05:39; Admin Dose 1 MG; Start 07/09/18 at 06:00 Warfarin Sodium (Coumadin) 6 mg DAILY@17 PO Last administered on 07/11/18at 16:41; Admin Dose 6 MG; Start 07/09/18 at 17:00 Ferrous Sulfate (Ferrous Sulfate (Ec)) 325 mg BID PO Last administered on 07/11/18at 21:29; Admin Dose 325 MG; Start 07/09/18 at 09:30 Docusate Sodium (Colace) 100 mg DAILY PO Last administered on 07/11/18at 08:52; Admin Dose 100 MG; Start 07/10/18 at 09:00 BERNARDINO CAR Jul 12, 2018 08:21
[2018-07-12] MEDS: NYSTATIN SUSP 5 ML CUP PO SCH ×4 (08:48→21:00)
[2018-07-12] MEDS: METOPROLOL 25 MG TAB PO SCH ×2 (08:49→21:01)
[2018-07-12] MEDS: MOMETASONE 0.24 GM INHALER INH SCH (08:49)
[2018-07-12] MEDS: AMIODARONE 200 MG TAB PO SCH ×2 (08:49→21:01)
[2018-07-12] MEDS: DOCUSATE SODIUM 100 MG CAP PO SCH (08:49)
[2018-07-12] MEDS: FERROUS SULFATE (EC) 325 MG TAB PO SCH ×2 (08:49→21:01)
--- NOTE | 2018-07-12 09:28 | PN ---
DATE: 07/12/2018 SUBJECTIVE: The patient is stable. No events noted. OBJECTIVE: VITAL SIGNS: Blood pressure is 122/59, pulse 64, respirations 19, temperature 98.0. HEENT: Head is normocephalic. NECK: Supple. HEART: Regular rate. LUNGS: Show diminished breath sounds at the base. ABDOMEN: Soft, nontender to palpation without rebound or guarding. EXTREMITIES: Negative for clubbing, cyanosis. Trace edema. DERMATOLOGIC: No rashes. MUSCULOSKELETAL: No joint effusion. NEUROLOGIC: No change in exam. MEDICATIONS: Reviewed. LABORATORY DATA: Reviewed. ASSESSMENT AND PLAN: 1. Nonoliguric acute kidney injury with previously normal baseline creatinine. Etiology is secondar y to acute tubular necrosis. Renal function is improved. Continue current treatment plan, supportiv e care, renally dose all medicines. 2. 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 The patient's hem aturia is improving. Continue to monitor. 3. Volume overload. Diuretic therapy was adjusted. Lower extremity edema is improving. Continue t o monitor. 4. Hypokalemia. Continue to monitor and replete as needed. 5. Anemia. Monitor hemoglobin and hematocrit levels. 6. Mechanical heart valve. Continue anticoagulation per cardiology. 7. Sepsis secondary to urinary tract infection. The patient is completing antibiotic course. 8. Hypothyroidism. Continue Synthroid. 9. Dyslipidemia. Continue statin therapy. 10. Hypertension. Continue blood pressure regimen. 11. Intraabdominal hematoma. Continue to monitor. 12. Urinary tract infection. The patient is completing antibiotic course. 13. Liver cirrhosis. Continue to monitor. Dictated By: GWYN FABIAN DO NR/NTS Conf#: [id number] DID#: [id number] CC: JULY VALENTIN MD; JOAQUIN DE LEON MD; CHRIS LAZAR MD;*EndCC*
--- NOTE | 2018-07-12 09:43 | CONS ---
Consult Date/Type/Reason Admit Date/Time May 28, 2018 at 17:52 Initial Consult Date Type of Consultation: Urology Requesting Provider: JULY VALENTIN MD Date/Time of Note DATE: 07/12/18 TIME: 09:41 Subjective NO acute events - pt stable - still with hematuria - feels well - con't supportive Rx. ROS: No fever, no chills, no nausea, no vomiting, no diarrhea/constipation No recent weight changes No chest pain, no PND, no orthopnea - mild SOB No dizziness, blurred vision No thirst, no heat or cold intolerance Objective Vitals Vital Signs Date Temp Pulse Resp B/P (MAP) Pulse Ox O2 O2 Flow FiO2 Time Delivery Rate 07/12/18 98.0 64 19 122/59 96 07:45 (80) 07/10/18 Room Air 16:00 Intake and Output 07/11/18 07/11/18 07/12/18 1515:00 23:00 07:00 IntakeIntake Total 500 ml 200 ml OutputOutput Total 850 ml 350 ml BalanceBalance -350 ml -150 ml Exam General: WN/WD/NAD, AOx 3 HEENT: Unicetric/atraumatic/EOMI (follow commands) NECK: JVD elevated, no thyromegaly Lymph: no lymphadenopathy HEART: regular with no S3, II/ systolic murmur at apex, mech click LUNGS: Coarse sounds ABD: soft, NT, ND, +BS : Intact Neuro: non focal SKIN: chronic changes EXT: trace edema Results/Medications Result Diagram: 07/12/18 0648 07/12/18 0657 Results 24 hrs Laboratory Tests Test 07/12/18 06:34 07/12/18 06:48 07/12/18 06:57 Prothrombin Time 34.0 H Prothrombin Time Ratio 2.7 INR International Normalized Ratio 3.36 Activated Partial Thromboplast Time 38.4 H White Blood Count 5.4 Red Blood Count 2.27 #L Hemoglobin 7.3 #L Hematocrit 22.9 #L Mean Corpuscular Volume 100.9 Mean Corpuscular Hemoglobin 32.2 Mean Corpuscular Hemoglobin Concent 31.9 L Red Cell Distribution Width 17.7 H Platelet Count 180 Mean Platelet Volume 9.7 Immature Granulocytes % 1.300 H Neutrophils % 57.7 Lymphocytes % 31.2 Monocytes % 7.3 Eosinophils % 1.9 Basophils % 0.6 Nucleated Red Blood Cells % 0.0 Immature Granulocytes # 0.070 H Neutrophils # 3.1 Lymphocytes # 1.7 Monocytes # 0.4 Eosinophils # 0.1 Basophils # 0.0 Nucleated Red Blood Cells # 0.0 Sodium Level 139 Potassium Level 3.9 Chloride Level 101 Carbon Dioxide Level 31 Anion Gap 7 Blood Urea Nitrogen 24 H Creatinine 0.65 Est Glomerular Filtrat Rate mL/min > 60 Glucose Level 88 Calcium Level 8.9 Home Meds Reported Medications Albuterol Sulfate* (Ventolin HFA*) 18 Gm Hfa.aer.ad, 2 PUFF INHALATION Q4H, #1 INHALER 05/26/18 Ergocalciferol (Vitamin D2) (VITAMIN D2) 50,000 Unit Capsule, 69652 UNIT PO [id number], CAP 05/23/18 Warfarin Sodium* (Coumadin*) 5 Mg Tablet, 5 MG PO Q TUES,THUR,SAT, TAB 05/23/18 Warfarin Sodium* (Coumadin*) 4 Mg Tablet, 4 MG PO Q MON,WED,FRI,SUN, TAB 05/23/18 Furosemide* (Furosemide*) 20 Mg Tablet, 20 MG PO DAILY, #60 TAB TAKE Q 2 DAYS 05/23/18 Simvastatin* (Zocor*) 20 Mg Tablet, 20 MG PO QHS, #30 TAB 05/23/18 Ranitidine Hcl* (Ranitidine Hcl*) 150 Mg Tablet, 150 MG PO HS, #30 TAB 05/23/18 Acetaminophen (Mapap) 500 Mg Capsule, 500 MG PO BID PRN for PAIN, CAP 05/23/18 Levothyroxine Sodium* (Levothyroxine Sodium*) 50 Mcg Tablet, 50 MCG PO BEFORE BREAKFAST, #30 TAB 05/23/18 Spironolactone* (Aldactone*) 25 Mg Tablet, 25 MG PO DAILY, #30 TAB 05/23/18 Beclomethasone Dipropionate (Qvar Redihaler (40 MCG)) 10.6 Gm Hfa.aeroba, 10.6 GM IH DAILY, INH 05/23/18 Amlodipine Besylate* (Norvasc*) 5 Mg Tablet, 5 MG PO BID, TAB 05/23/18 Losartan-Hydrochlorothiazide (Losartan-HCTZ) 100-25 Mg Tab, 1 TAB PO DAILY, TAB 05/23/18 Medications Current Medications Levothyroxine Sodium (Synthroid) 50 mcg BEFORE BREAKFAST PO Last administered on 07/12/18 06:54; Admin Dose 50 MCG; Start 05/30/18 at 07:00 Mometasone Furoate (Asmanex) 1 puff DAILY INH Last administered on 07/12/18 08:49; Admin Dose 1 PUFF; Start 05/29/18 at 11:00 Atorvastatin Calcium (Lipitor) 10 mg DAILY@21 PO Last administered on 07/11/18 21:29; Admin Dose 10 MG; Start 05/29/18 at 21:00 Latanoprost (Xalatan) 1 drop HS BOTH EYES Last administered on 07/11/18 21:29; Admin Dose 1 DROP; Start 06/01/18 at 21:00 Amlodipine Besylate (Norvasc) 5 mg DAILY PO ; Start 06/03/18 at 09:00; Status Hold Pantoprazole (Protonix Tab) 40 mg DAILY@06 PO Last administered on 07/12/18 06:54; Admin Dose 40 MG; Start 06/05/18 at 06:00 Metoclopramide HCl (Reglan) 5 mg TID PRN IV Nausea; Start 06/06/18 at 11:00 Polyethylene Glycol (Miralax) 17 gm BID PRN PO CONSTIPATION; Start 06/06/18 at 14:00 Bisacodyl (Dulcolax Supp) 10 mg DAILY PRN [place] CONSTIPATION; Start 06/06/18 at 14:00 IV Flush (NS 10 ml) 10 ml PRN PRN IV IV PROTOCOL; Start 06/06/18 at 16:00 Nystatin (Nystatin Susp) 5 ml QID PO Last administered on 07/12/18 08:48; Admin Dose 5 ML; Start 06/06/18 at 17:00 Metoprolol Tartrate (Lopressor) 25 mg BID PO Last administered on 07/12/18 08:49; Admin Dose 25 MG; Start 06/13/18 at 21:00 Metoprolol Tartrate (Lopressor) 5 mg Q4H PRN IV HR>110 Hold SBP<100; Start 06/13/18 at 10:30 Morphine Sulfate (morphine) 6 mg Q2H PRN PO FOR NON CARDIAC PAIN (4-10); Start 06/13/18 at 11:30 Docusate Sodium (Colace) 100 mg DAILY PRN PO CONSTIPATION; Start 06/21/18 at 12:00 [facility] This patient gomes... PRN PRN XX WOUND CARE; Start 06/21/18 at 16:00 Amiodarone HCl (Cordarone) 200 mg BID PO Last administered on 07/12/18 08:49; Admin Dose 200 MG; Start 06/22/18 at 21:00 Bumetanide (Bumex) 1 mg DAILY@0600 PO Last administered on 07/11/18 05:39; Admi n Dose 1 MG; Start 07/09/18 at 06:00 Warfarin Sodium (Coumadin) 6 mg DAILY@17 PO Last administered on 07/11/18at 16:41; Admin Dose 6 MG; Start 07/09/18 at 17:00 Ferrous Sulfate (Ferrous Sulfate (Ec)) 325 mg BID PO Last administered on 07/12/18 08:49; Admin Dose 325 MG; Start 07/09/18 at 09:30 Docusate Sodium (Colace) 100 mg DAILY PO Last administered on 07/12/18 08:49; Admin Dose 100 MG; Start 07/10/18 at 09:00 Assessment/Plan Hospital Course (Demo Recall) 1.cad s/p C with no sig obstructive cad - on med rx now - treated - no CP now - stable - on meds - treated. Stable. 2.HTN - treated - well Rx - well controlled - controlled - well maintained. 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 STILL with hematuria - urology follows. Still heaturia - con't to monitor - H/H trending down - might need blood Rx. 4.HL 5.MVR-mechanical - stable by exam - soft click by exam - stable Stable by exam.Soft click. Stable by exam. Con't to follow. 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 Now stabilizing - still with hematuria, a little better H/H at 9.0 to 7.3. Might need blood rX. 7.Hypothyroid 8. GOMES-negative Head CT 9. Fevers-with positive ua - now resolved. RESOLVED. CECILIA MOCTEZUMA MD Jul 12, 2018 09:43
[2018-07-12] MEDS: BUMETANIDE 1 MG TAB PO SCH (10:15)
--- NOTE | 2018-07-12 12:40 | PN ---
Date/Time of Note Date/Time of Note DATE: 07/12/18 TIME: 12:34 Assessment/Plan VTE Prophylaxis Risk score (from Ns)>0 risk: 5 SCD applied (from Ns): Yes Pharmacological prophylaxis: warfarin tx Lines/Catheters IV Catheter Type (from Nrs): PICC Line Central line still needed: Yes Urinary Cath still in place: Yes Reason Cath still needed: urinary retention Assessment/Plan Hospital Course Patient remains hemodynamically stable, atrial flutter at controlled rate, denies any shortness of breath, continues to have bloody urine Via [place] cat heter with increased output while ambulating. INR is 3.36 we will decrease Coumadin to 5 mg daily. Hemoglobin is 10.0. 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 Continue Mens[place], monitor. Dr. Ashford is following in urology consultation. -Anemia of acute blood loss, transfuse PRN, monitor H&H. -S/p UTI, completed treatment with Zosyn. Dr. Castellanos is following in infection disease consultation. 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 -S/p Nose/oropharyngeal bleed on 06/11/2018, stopped after heparin was held. -Retroperitoneal bleed secondary to vascular injury status post stent placement. Monitor H and H. S/p eval by Dr. Kilpatrick, vascular surgery consultation. -Status post left heart catheterization with no significant obstructive coronary artery disease by Dr. Moreno on 05/27/2018. -Anemia of acute blood loss, status post blood transfusion, continue to monitor hemoglobin and hematocrit. -Urinary incontinence. -Acute illness myopathy -Status post mitral valve replacement with mechanical valve in [facility] in [facility]. Continue Coumadin, monitor PT/INR. -HTN, continue metoprolol -Hyperlipidemia -Hypothyroidism, continue levothyroxine -History of asthma Further recommendations based on clinical course. Plan of care discussed with Cem Painter. Result Diagram: 07/12/18 1008 07/12/18 0657 Results 24hrs Laboratory Tests Test 07/12/18 06:34 07/12/18 06:48 07/12/18 06:57 07/12/18 10:08 Prothrombin Time 34.0 H Prothrombin Time Ratio 2.7 INR International 3.36 Normalized Ratio Activated 38.4 H Partial Thromboplast Time White Blood Count 5.4 Red Blood Count 2.27 #L Hemoglobin 7.3 #L 10.0 #L Hematocrit 22.9 #L 31.9 #L Mean Corpuscular Volume 100.9 Mean Corpuscular 32.2 Hemoglobin Mean Corpuscular 31.9 L Hemoglobin Concent Red Cell Distribution 17.7 H Width Platelet Count 180 Mean Platelet Volume 9.7 Immature Granulocytes % 1.300 H Neutrophils % 57.7 Lymphocytes % 31.2 Monocytes % 7.3 Eosinophils % 1.9 Basophils % 0.6 Nucleated Red Blood 0.0 Cells % Immature Granulocytes # 0.070 H Neutrophils # 3.1 Lymphocytes # 1.7 Monocytes # 0.4 Eosinophils # 0.1 Basophils # 0.0 Nucleated Red Blood 0.0 Cells # Sodium Level 139 Potassium Level 3.9 Chloride Level 101 Carbon Dioxide Level 31 Anion Gap 7 Blood Urea Nitrogen 24 H Creatinine 0.65 Est Glomerular Filtrat > 60 Rate mL/min Glucose Level 88 Calcium Level 8.9 Exam/Review of Systems Exam Vitals Vital Signs Date Temp Pulse Resp B/P (MAP) Pulse Ox O2 O2 Flow FiO2 Time Delivery Rate 07/12/18 98.4 62 20 132/60 96 Room Air 12:04 (84) Intake and Output 07/11/18 07/11/18 07/12/18 1515:00 23:00 07:00 IntakeIntake Total 500 ml 200 ml OutputOutput Total 850 ml 350 ml BalanceBalance -350 ml -150 ml Exam Constitutional: alert, oriented Respiratory: clear to auscultation Cardiovascular: regular rate and rhythm Gastrointestinal: soft, other (Status post surgery) Musculoskeletal: nl extremities to inspection, lower back s/p surgery Extremities: normal pulses Neurological: nl mental status Skin: nl turgor Results Results 24hrs Laboratory Tests Test 07/12/18 06:34 07/12/18 06:48 07/12/18 06:57 07/12/18 10:08 Prothrombin Time 34.0 H Prothrombin Time Ratio 2.7 INR International 3.36 Normalized Ratio Activated 38.4 H Partial Thromboplast Time White Blood Count 5.4 Red Blood Count 2.27 #L Hemoglobin 7.3 #L 10.0 #L Hematocrit 22.9 #L 31.9 #L Mean Corpuscular Volume 100.9 Mean Corpuscular 32.2 Hemoglobin Mean Corpuscular 31.9 L Hemoglobin Concent Red Cell Distribution 17.7 H Width Platelet Count 180 Mean Platelet Volume 9.7 Immature Granulocytes % 1.300 H Neutrophils % 57.7 Lymphocytes % 31.2 Monocytes % 7.3 Eosinophils % 1.9 Basophils % 0.6 Nucleated Red Blood 0.0 Cells % Immature Granulocytes # 0.070 H Neutrophils # 3.1 Lymphocytes # 1.7 Monocytes # 0.4 Eosinophils # 0.1 Basophils # 0.0 Nucleated Red Blood 0.0 Cells # Sodium Level 139 Potassium Level 3.9 Chloride Level 101 Carbon Dioxide Level 31 Anion Gap 7 Blood Urea Nitrogen 24 H Creatinine 0.65 Est Glomerular Filtrat > 60 Rate mL/min Glucose Level 88 Calcium Level 8.9 Medications Medication Current Medications Levothyroxine Sodium (Synthroid) 50 mcg BEFORE BREAKFAST PO Last administered on 07/12/18 06:54; Admin Dose 50 MCG; Start 05/30/18 at 07:00 Mometasone Furoate (Asmanex) 1 puff DAILY INH Last administered on 07/12/18 08:49; Admin Dose 1 PUFF; Start 05/29/18 at 11:00 Atorvastatin Calcium (Lipitor) 10 mg DAILY@21 PO Last administered on 07/11/18 21:29; Admin Dose 10 MG; Start 05/29/18 at 21:00 Latanoprost (Xalatan) 1 drop HS BOTH EYES Last administered on 07/11/18 21:29; Admin Dose 1 DROP; Start 06/01/18 at 21:00 Amlodipine Besylate (Norvasc) 5 mg DAILY PO ; Start 06/03/18 at 09:00; Status Hold Pantoprazole (Protonix Tab) 40 mg DAILY@06 PO Last administered on 07/12/18 06:54; Admin Dose 40 MG; Start 06/05/18 at 06:00 Metoclopramide HCl (Reglan) 5 mg TID PRN IV Nausea; Start 06/06/18 at 11:00 Polyethylene Glycol (Miralax) 17 gm BID PRN PO CONSTIPATION; Start 06/06/18 at 14:00 Bisacodyl (Dulcolax Supp) 10 mg DAILY PRN [place] CONSTIPATION; Start 06/06/18 at 14:00 IV Flush (NS 10 ml) 10 ml PRN PRN IV IV PROTOCOL; Start 06/06/18 at 16:00 Nystatin (Nystatin Susp) 5 ml QID PO Last administered on 07/12/18 12:18; Admin Dose 5 ML; Start 06/06/18 at 17:00 Metoprolol Tartrate (Lopressor) 25 mg BID PO Last administered on 07/12/18 08:49; Admin Dose 25 MG; Start 06/13/18 at 21:00 Metoprolol Tartrate (Lopressor) 5 mg Q4H PRN IV HR>110 Hold SBP<100; Start 06/13/18 at 10:30 Morphine Sulfate (morphine) 6 mg Q2H PRN PO FOR NON CARDIAC PAIN (4-10); Start 06/13/18 at 11:30 Docusate Sodium (Colace) 100 mg DAILY PRN PO CONSTIPATION; Start 06/21/18 at 12:00 [facility] This patient gomes... PRN PRN XX WOUND CARE; Start 06/21/18 at 16:00 Amiodarone HCl (Cordarone) 200 mg BID PO Last administered on 07/12/18 08:49; Admin Dose 200 MG; Start 06/22/18 at 21:00 Bumetanide (Bumex) 1 mg DAILY@0600 PO Last administered on 07/12/18 10:15; Admin Dose 1 MG; Start 07/09/18 at 06:00 Warfarin Sodium (Coumadin) 6 mg DAILY@17 PO Last administered on 07/11/18 16:41; Admin Dose 6 MG; Start 07/09/18 at 17:00 Ferrous Sulfate (Ferrous Sulfate (Ec)) 325 mg BID PO Last administered on 08:49; Admin Dose 325 MG; Start 07/09/18 at 09:30 Docusate Sodium (Colace) 100 mg DAILY PO Last administered on 07/12/18 08:49; Admin Dose 100 MG; Start 07/10/18 at 09:00 KRISTY MCCULLOUGH Jul 12, 2018 12:40
--- NOTE | 2018-07-12 15:24 | CONS ---
Assessment/Plan Assessment/Plan Hospital Course (Demo Recall) # sepsis, cardiopulmonary - s/p severe sepsis due to UTI, resolved - s/p SIRS due to acute blood loss, resolved - s/p L heart catheterization on 05/27/2018 showing no significant obstructive CAD - CAD - s/p CABG in [place] in 1982 - H/o MVR with mechanical valve, in 1999 - Hypertension - PAF - Asthma # urology/renal, GI - hematuria caused by ruptured urinary bladder - CT abd/pel on 07/02/18 showed large extravasation of contrast administered through a F/c into the large anterior pelvic fluid collection is demonstrated, consistent with bladder rupture. no contrast seen within the vagina to suggest fistulization with the overlying urinary bladder. - s/p UTI due to hafnai alvei and pediococci on 06/30/18. Pt completed pip/tazo (07/02/18-07/05/2018) - S/p UTI due to E. coli. 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, s/p covered stent placement 6 x 100 mm right common femoral artery and right external iliac artery, abdominal aortogram, catheter introduction to the abdominal aorta, JOSÉ MIGUEL guidance into the central artery 06/02/2018 - S/p retroperitoneal bleed - S/p acute anemia requiring PRBC # endo - Hyperlipidemia - Hypothyroidism recommendations: - ordered that her vincent catheter be exchanged - monitor Pt off systemic antibiotics - management d/w Pt, her and GONZALO Goetz Consultation Date/Type/Reason Admit Date/Time May 28, 2018 at 17:52 Initial Consult Date 06/03/18 Type of Consult ID Requesting Provider: JULY VALENTIN MD Date/Time of Note DATE: 07/12/18 TIME: 15:22 24 HR Interval Summary Constitutional: no complaints Detailed Summary Eyes: no complaints ENT: no complaints Respiratory: no complaints Cardiovascular: no complaints Gastrointestinal: no complaints Genitourinary: hematuria, other (leaking urine) Musculoskeletal: no complaints, other (walks with a walker) Skin: no complaints Neurologic: no complaints Exam/Review of Systems Exam Vitals Vital Signs Date Temp Pulse Resp B/P (MAP) Pulse Ox O2 O2 Flow FiO2 Time Delivery Rate 07/12/18 98.4 62 20 132/60 96 Room Air 12:04 (84) Intake and Output 07/11/18 07/11/18 07/12/18 1515:00 23:00 07:00 IntakeIntake Total 500 ml 200 ml OutputOutput Total 850 ml 350 ml BalanceBalance -350 ml -150 ml Constitutional: frail Psych: no complaints, nl mood/affect Head: normocephalic, atraumatic Eyes: nl conjunctiva, nl lids, nl sclera ENMT: nl external ears & nose, nl nasal mucosa & septum, mucosa pink and moist Neck: other (not swollen) Respiratory: clear to auscultation, normal air movement Cardiovascular: regular rate and rhythm, nl pulses, edema Gastrointestinal: soft, non-tender Genitourinary - Female: other (+hematuria) Extremities: edema, pitting pedal edema Neurological: TORCH OPERATOR II-XII intact, nl mental status, nl speech Skin: nl turgor, ecchymosis Results Result Diagram: 07/12/18 1008 07/12/18 0657 Results 24hrs Laboratory Tests Test 07/12/18 06:34 07/12/18 06:48 07/12/18 06:57 07/12/18 10:08 Prothrombin Time 34.0 H Prothrombin Time Ratio 2.7 INR International 3.36 Normalized Ratio Activated 38.4 H Partial Thromboplast Time White Blood Count 5.4 Red Blood Count 2.27 #L Hemoglobin 7.3 #L 10.0 #L Hematocrit 22.9 #L 31.9 #L Mean Corpuscular Volume 100.9 Mean Corpuscular 32.2 Hemoglobin Mean Corpuscular 31.9 L Hemoglobin Concent Red Cell Distribution 17.7 H Width Platelet Count 180 Mean Platelet Volume 9.7 Immature Granulocytes % 1.300 H Neutrophils % 57.7 Lymphocytes % 31.2 Monocytes % 7.3 Eosinophils % 1.9 Basophils % 0.6 Nucleated Red Blood 0.0 Cells % Immature Granulocytes # 0.070 H Neutrophils # 3.1 Lymphocytes # 1.7 Monocytes # 0.4 Eosinophils # 0.1 Basophils # 0.0 Nucleated Red Blood 0.0 Cells # Sodium Level 139 Potassium Level 3.9 Chloride Level 101 Carbon Dioxide Level 31 Anion Gap 7 Blood Urea Nitrogen 24 H Creatinine 0.65 Est Glomerular Filtrat > 60 Rate mL/min Glucose Level 88 Calcium Level 8.9 Medications Medication Current Medications Levothyroxine Sodium (Synthroid) 50 mcg BEFORE BREAKFAST PO Last administered on 07/12/18 06:54; Admin Dose 50 MCG; Start 05/30/18 at 07:00 Mometasone Furoate (Asmanex) 1 puff DAILY INH Last administered on 07/12/18 08:49; Admin Dose 1 PUFF; Start 05/29/18 at 11:00 Atorvastatin Calcium (Lipitor) 10 mg DAILY@21 PO Last administered on 07/11/18 21:29; Admin Dose 10 MG; Start 05/29/18 at 21:00 Latanoprost (Xalatan) 1 drop HS BOTH EYES Last administered on 07/11/18 21:29; Admin Dose 1 DROP; Start 06/01/18 at 21:00 Amlodipine Besylate (Norvasc) 5 mg DAILY PO ; Start 06/03/18 at 09:00; Status Hold Pantoprazole (Protonix Tab) 40 mg DAILY@06 PO Last administered on 07/12/18 06:54; Admin Dose 40 MG; Start 06/05/18 at 06:00 Metoclopramide HCl (Reglan) 5 mg TID PRN IV Nausea; Start 06/06/18 at 11:00 Polyethylene Glycol (Miralax) 17 gm BID PRN PO CONSTIPATION; Start 06/06/18 at 14:00 Bisacodyl (Dulcolax Supp) 10 mg DAILY PRN [place] CONSTIPATION; Start 06/06/18 at 14:00 IV Flush (NS 10 ml) 10 ml PRN PRN IV IV PROTOCOL; Start 06/06/18 at 16:00 Nystatin (Nystatin Susp) 5 ml QID PO Last administered on 07/12/18 12:18; Admin Dose 5 ML; Start 06/06/18 at 17:00 Metoprolol Tartrate (Lopressor) 25 mg BID PO Last administered on 07/12/18 08:49; Admin Dose 25 MG; Start 06/13/18 at 21:00 Metoprolol Tartrate (Lopressor) 5 mg Q4H PRN IV HR>110 Hold SBP<100; Start at 10:30 Morphine Sulfate (morphine) 6 mg Q2H PRN PO FOR NON CARDIAC PAIN (4-10); Start 06/13/18 at 11:30 Docusate Sodium (Colace) 100 mg DAILY PRN PO CONSTIPATION; Start 06/21/18 at 12:00 Miscellaneous Information (Pending [facility] Order For Wound Care) This patient gomes... PRN PRN XX WOUND CARE; Start 06/21/18 at 16:00 Amiodarone HCl (Cordarone) 200 mg BID PO Last administered on 07/12/18 08:49; Admin Dose 200 MG; Start 06/22/18 at 21:00 Bumetanide (Bumex) 1 mg DAILY@0600 PO Last administered on 07/12/18 10:15; Admin Dose 1 MG; Start 07/09/18 at 06:00 Ferrous Sulfate (Ferrous Sulfate (Ec)) 325 mg BID PO Last administered on 07/12/18 08:49; Admin Dose 325 MG; Start 07/09/18 at 09:30 Docusate Sodium (Colace) 100 mg DAILY PO Last administered on 07/12/18 08:49; Admin Dose 100 MG; Start 07/10/18 at 09:00 Warfarin Sodium (Coumadin) 5 mg DAILY@17 PO ; Start 07/12/18 at 17:00 SHARI CROWELL M.D. Jul 12, 2018 15:24
[2018-07-12] MEDS ORDERED: WARFARIN 5 MG TAB PO SCH (17:00)
[2018-07-12] MEDS: ATORVASTATIN 10 MG TAB PO SCH (21:00)
[2018-07-12] MEDS: LATANOPROST 0.005% 2.5 ML OPH BOTH EYES SCH (21:02)
[2018-07-13] VITALS (11 sets, daily range): BP systolic 103–131; BP diastolic 51–72; PULSE 57–91; RESP 18–20
[2018-07-13] MEDS: BUMETANIDE 1 MG TAB PO SCH ×3 (07:49→21:14)
[2018-07-13] MEDS: LEVOTHYROXINE 50 MCG TAB PO SCH (07:49)
[2018-07-13] MEDS: PANTOPRAZOLE (EC) 40 MG TAB PO SCH (07:50)
[2018-07-13] MEDS: NYSTATIN SUSP 5 ML CUP PO SCH ×4 (08:15→21:15)
[2018-07-13] MEDS: DOCUSATE SODIUM 100 MG CAP PO SCH (08:15)
[2018-07-13] MEDS: FERROUS SULFATE (EC) 325 MG TAB PO SCH ×2 (08:15→21:15)
[2018-07-13] MEDS: AMIODARONE 200 MG TAB PO SCH ×2 (08:16→21:15)
[2018-07-13] MEDS: MOMETASONE 0.24 GM INHALER INH SCH (08:16)
[2018-07-13] MEDS: METOPROLOL 25 MG TAB PO SCH ×2 (08:17→21:00)
--- NOTE | 2018-07-13 08:49 | PN ---
DATE: 07/13/2018 SUBJECTIVE: The patient remains stable. No events overnight. The patient's hematuria is improving. The patient is complaining about worsening lower extremity swelling. No other events noted. OBJECTIVE: VITAL SIGNS: Blood pressure is 131/61, pulse 87, temperature 98.4. HEENT: Head is normocephalic. NECK: Supple. HEART: Regular rate. LUNGS: Show diminished breath sounds at the base. ABDOMEN: Soft, nontender to palpation without rebound or guarding. EXTREMITIES: Negative for clubbing, cyanosis. Positive edema. DERMATOLOGIC: No rashes. MUSCULOSKELETAL: No joint effusion. NEUROLOGIC: No change in exam. MEDICATIONS: Reviewed. LABORATORY DATA: Reviewed. IMAGING STUDIES: Reviewed. ASSESSMENT AND PLAN: 1. Nonoliguric acute kidney injury with previously normal baseline creatinine. Etiology of acute ki dney injury is secondary to acute tubular necrosis. Renal function is improved. Continue current tr eatment plans, supportive care, renally dose all medications. 2. 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 Hematuria is improvin g. Continue to monitor. 3. Volume overload. The patient continues to have ongoing lower extremity edema. We will just Bume x 1 mg b.i.d., monitor electrolytes, and renal function closely. 4. Hypokalemia. Continue to monitor and replete as needed. 5. Anemia. Continue to monitor hemoglobin and hematocrit levels. 6. Mechanical heart valve. Continue anticoagulation per cardiology. 7. Sepsis secondary to urinary tract infection. The patient is completing antibiotic course. 8. Hypothyroidism. Continue Synthroid. 9. Dyslipidemia. Continue statin therapy. 10. Hypertension. Continue current blood pressure regimen. 11. Intraabdominal hematoma. Continue to monitor. 12. Urinary tract infection. The patient is completing antibiotic course. 13. Liver cirrhosis. Continue to monitor. Continue medical management. Dictated By: GWYN FABIAN DO NR/NTS Conf#: [id number] DID#: [id number] CC: JULY VALENTIN MD; JOAQUIN DE LEON MD; CHRIS LAZAR MD;*EndCC*
--- NOTE | 2018-07-13 15:09 | CONS ---
Assessment/Plan Assessment/Plan Hospital Course (Demo Recall) IMP: 1.cad s/p LHC with no sig obstructive cad. Mildly depressed LVEF--40-45% ? nonischemic process 2.HTN 3.RP Bleed s/p transfusions now stable and tolerating heparin/coumadin loading. Then had recurrent bled overnight now s/p covered stent to ELECTRICAL SUPERVISOR/Ext iliac. Stable collection by abd CT 06/06 but still with pigtail catheter in place 4.HL 5.MVR-mechanical 6.anemia- s/p repair of R ELECTRICAL SUPERVISOR/illiac. Had hemoptysis with subsequent drop in Hgb again and holding of heparin. Had some mild blood tinged sputum 7.Hypothyroid 8. GOMES-negative Head CT 9. Fevers-with positive ua 10. UTI-recurrent by u/a 06/29 11.ARF-? Contrast induced/compression from hematoma- now improving with increased urine output and slowly decreasing motion study engineer 12. Coagulopathy-now supratherapeutic again 14. LE weakness-? compression from hematoma and exacerbated by femoral compression after cath-now resolved 15. arterial insuff- LLE- s/p WET PROCESS ASSISTANT HEAD MILLER/thrombolysis 06/04 successfully with palpable pulses/B DP/PT and remain that way 16. PAF/AFL-rate controlled 17. 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 Now decreasing hematuria 18. Epistaxis-improved 19. anemia-stable overall with possible mild downtrend today Recc: -Now on tele -Continue BB with well controlled Hr's -Continue statin -s/p course of abx's -ongoing ID f/u -F/U motion study engineer/K closely with creatnine now normalized and volume status improved. -Follow HGb closely which has been stable to improved actually -PT/ambulation- doing 3x/day -Follow volume status closely now off of bumex -will continue amio bid for now and follow rhythm clsoely as has now consverted to SR/SB -Urology following with findings of apparent bladder fistula and thus draining of the hematoma through the bladder causing hematuria. Per urology thus ok to co ntinue coumadin. Follow hematuria for resolution and assess need for spontaneous closure versus need for repair discussed with urology with hematuria slowly decreasing. -Hold coumadin and follow inr closely -Give extra dose of bumex IV today given trace LE edema Consultation Date/Type/Reason Admit Date/Time May 28, 2018 at 17:52 Initial Consult Date 05/28/18 Type of Consult Cardiology Reason for Consultation MVR Requesting Provider: JULY VALENTIN MD Date/Time of Note DATE: 07/13/18 TIME: 15:05 Exam/Review of Systems Vital Signs Vitals Vital Signs Date Temp Pulse Resp B/P (MAP) Pulse Ox O2 O2 Flow FiO2 Time Delivery Rate 07/13/18 91 12:16 07/13/18 97.8 20 122/56 96 Room Air 11:47 (78) Intake and Output 07/12/18 07/12/18 07/13/18 1515:00 23:00 07:00 IntakeIntake Total 550 ml 600 ml 300 ml OutputOutput Total 700 ml 1750 ml 500 ml BalanceBalance -150 ml -1150 ml -200 ml Exam Exam Review of Systems: CONSTITUTIONAL: No fevers, chills. PULMONARY: No sob CARDIOVASCULAR: No chest pain/palpitations GASTROINTESTINAL: No nausea/vomiting. GENITOURINARY: No hematuria/dysuria. MUSCULOSKELETAL: No myagias/arthalgias. PSYCHIATRIC: The patient denies depression. NEUROLOGIC: No weakness Constitutional: alert Psych: no complaints Head: normocephalic ENMT: mucosa pink and moist Neck: supple, jvd (9 cm water) Respiratory: diminished breath sounds Cardiovascular: regular rate and rhythm Gastrointestinal: soft, non-tender Musculoskeletal: muscle tone (normal) Extremities: edema (trace/B) Neurological: other (No focal deficits) Labs Result Diagram: 07/13/18 0617 07/12/18 0657 Results 24hrs Laboratory Tests Test 07/13/18 06:14 07/13/18 06:17 Prothrombin Time 38.1 H Prothrombin Time Ratio 3.0 INR International Normalized Ratio 3.89 Hemoglobin 9.3 L Hematocrit 29.3 L Medications Medications Current Medications Levothyroxine Sodium (Synthroid) 50 mcg BEFORE BREAKFAST PO Last administered on 07/13/18at 07:49; Admin Dose 50 MCG; Start 05/30/18 at 07:00 Mometasone Furoate (Asmanex) 1 puff DAILY INH Last administered on 07/13/18at 0 8:16; Admin Dose 1 PUFF; Start 05/29/18 at 11:00 Atorvastatin Calcium (Lipitor) 10 mg DAILY@21 PO Last administered on 07/12/18at 21:00; Admin Dose 10 MG; Start 05/29/18 at 21:00 Latanoprost (Xalatan) 1 drop HS BOTH EYES Last administered on 07/12/18at 21:02; Admin Dose 1 DROP; Start 06/01/18 at 21:00 Amlodipine Besylate (Norvasc) 5 mg DAILY PO ; Start 06/03/18 at 09:00; Status Hold Pantoprazole (Protonix Tab) 40 mg DAILY@06 PO Last administered on 07/13/18at 07:50; Admin Dose 40 MG; Start 06/05/18 at 06:00 Metoclopramide HCl (Reglan) 5 mg TID PRN IV Nausea; Start 06/06/18 at 11:00 Polyethylene Glycol (Miralax) 17 gm BID PRN PO CONSTIPATION; Start 06/06/18 at 14:00 Bisacodyl (Dulcolax Supp) 10 mg DAILY PRN [place] CONSTIPATION; Start 06/06/18 at 14:00 IV Flush (NS 10 ml) 10 ml PRN PRN IV IV PROTOCOL; Start 06/06/18 at 16:00 Nystatin (Nystatin Susp) 5 ml QID PO Last administered on 07/13/18at 12:00; Admin Dose 5 ML; Start 06/06/18 at 17:00 Metoprolol Tartrate (Lopressor) 25 mg BID PO Last administered on 07/13/18at 08:17; Admin Dose 25 MG; Start 06/13/18 at 21:00 Metoprolol Tartrate (Lopressor) 5 mg Q4H PRN IV HR>110 Hold SBP<100; Start 06/13/18 at 10:30 Morphine Sulfate (morphine) 6 mg Q2H PRN PO FOR NON CARDIAC PAIN (4-10); Start 06/13/18 at 11:30 Docusate Sodium (Colace) 100 mg DAILY PRN PO CONSTIPATION; Start 06/21/18 at 12:00 Miscellaneous Information (Pending [facility] Order For Wound Care) This patient gomes... PRN PRN XX WOUND CARE; Start 06/21/18 at 16:00 Amiodarone HCl (Cordarone) 200 mg BID PO Last administered on 07/13/18at 08:16; Admin Dose 200 MG; Start 06/22/18 at 21:00 Ferrous Sulfate (Ferrous Sulfate (Ec)) 325 mg BID PO Last administered on 07/13/18at 08:15; Admin Dose 325 MG; Start 07/09/18 at 09:30 Docusate Sodium (Colace) 100 mg DAILY PO Last administered on 07/13/18at 08:15; Admin Dose 100 MG; Start 07/10/18 at 09:00 Warfarin Sodium (Coumadin) 5 mg DAILY@17 PO Last administered on 07/12/18at 16:24; Admin Dose 5 MG; Start 07/12/18 at 17:00; Status Hold Bumetanide (Bumex) 1 mg BID PO Last administered on 07/13/18at 09:50; Admin Dose 1 MG; Start 07/13/18 at 09:00 Miscellaneous Information (*Order Clarification Bulletin) PLEASE CLARIFY WITH . Q8H XX ; Start 07/13/18 at 11:00 CHRIS LAZAR Jul 13, 2018 15:09
--- NOTE | 2018-07-13 15:10 | CONS ---
Assessment/Plan Assessment/Plan Hospital Course (Demo Recall) # sepsis, cardiopulmonary - s/p severe sepsis due to UTI, resolved - s/p SIRS due to acute blood loss, resolved - s/p L heart catheterization on 05/27/2018 showing no significant obstructive CAD - CAD - s/p CABG in [place] in 1982 - H/o MVR with mechanical valve, in 1999 - Hypertension - PAF - Asthma # urology/renal, GI - hematuria caused by ruptured urinary bladder - Mensah was exchanged on 07/12/2018 because her older catheter was leaking - CT abd/pel on 07/02/18 showed large extravasation of contrast administered through a F/c into the large anterior pelvic fluid collection is demonstrated, consistent with bladder rupture. no contrast seen within the vagina to suggest fistulization with the overlying urinary bladder. - s/p UTI due to hafnai alvei and pediococci on 06/30/18. Pt completed pip/tazo (07/02/18-07/05/2018) - S/p UTI due to E. coli. 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 Moreno Consultation Date/Type/Reason Admit Date/Time May 28, 2018 at 17:52 Initial Consult Date 06/03/18 Type of Consult ID Requesting Provider: JULY VALENTIN MD Date/Time of Note DATE: 07/13/18 TIME: 15:07 24 HR Interval Summary Free Text/Dictation Mensah was changed and leakage stopped Constitutional: no complaints Detailed Summary Cardiovascular: No chest pain Gastrointestinal: No pain Genitourinary: hematuria, other (leakage stopped while ambulating) Musculoskeletal: other (Pt ambulated) Exam/Review of Systems Exam Vitals Vital Signs Date Temp Pulse Resp B/P (MAP) Pulse Ox O2 O2 Flow FiO2 Time Delivery Rate 07/13/18 91 12:16 07/13/18 97.8 20 122/56 96 Room Air 11:47 (78) Intake and Output 07/12/18 07/12/18 07/13/18 1515:00 23:00 07:00 IntakeIntake Total 550 ml 600 ml 300 ml OutputOutput Total 700 ml 1750 ml 500 ml BalanceBalance -150 ml -1150 ml -200 ml Constitutional: alert, oriented, well developed Psych: no complaints, nl mood/affect Head: normocephalic, atraumatic Eyes: nl conjunctiva, nl lids, nl sclera ENMT: nl external ears & nose, nl nasal mucosa & septum, mucosa pink and moist Neck: other (not swollen) Respiratory: normal air movement Cardiovascular: No edema Gastrointestinal: No distended Genitourinary - Female: other (FC with hematuria) Musculoskeletal: nl extremities to inspection Extremities: No edema Neurological: INDUSTRIAL PSYCHOLOGY PROFESSOR II-XII intact, nl mental status Skin: ecchymosis Results Result Diagram: 07/13/18 0617 07/12/18 0657 Results 24hrs Laboratory Tests Test 07/13/18 06:14 07/13/18 06:17 Prothrombin Time 38.1 H Prothrombin Time Ratio 3.0 INR International Normalized Ratio 3.89 Hemoglobin 9.3 L Hematocrit 29.3 L Medications Medication Current Medications Levothyroxine Sodium (Synthroid) 50 mcg BEFORE BREAKFAST PO Last administered on 07/13/18at 07:49; Admin Dose 50 MCG; Start 05/30/18 at 07:00 Mometasone Furoate (Asmanex) 1 puff DAILY INH Last administered on 07/13/18at 08:16; Admin Dose 1 PUFF; Start 05/29/18 at 11:00 Atorvastatin Calcium (Lipitor) 10 mg DAILY@21 PO Last administered on 07/12/18at 21:00; Admin Dose 10 MG; Start 05/29/18 at 21:00 Latanoprost (Xalatan) 1 drop HS BOTH EYES Last administered on 07/12/18 21:02; Admin Dose 1 DROP; Start 06/01/18 at 21:00 Amlodipine Besylate (Norvasc) 5 mg DAILY PO ; Start 06/03/18 at 09:00; Status Hold Pantoprazole (Protonix Tab) 40 mg DAILY@06 PO Last administered on 07/13/18at 07:50; Admin Dose 40 MG; Start 06/05/18 at 06:00 Metoclopramide HCl (Reglan) 5 mg TID PRN IV Nausea; Start 06/06/18 at 11:00 Polyethylene Glycol (Miralax) 17 gm BID PRN PO CONSTIPATION; Start 06/06/18 at 14:00 Bisacodyl (Dulcolax Supp) 10 mg DAILY PRN [place] CONSTIPATION; Start 06/06/18 at 14:00 IV Flush (NS 10 ml) 10 ml PRN PRN IV IV PROTOCOL; Start 06/06/18 at 16:00 Nystatin (Nystatin Susp) 5 ml QID PO Last administered on 07/13/18at 12:00; Admin Dose 5 ML; Start 06/06/18 at 17:00 Metoprolol Tartrate (Lopressor) 25 mg BID PO Last administered on 07/13/18at 08:17; Admin Dose 25 MG; Start 06/13/18 at 21:00 Metoprolol Tartrate (Lopressor) 5 mg Q4H PRN IV HR>110 Hold SBP<100; Start 06/13/18 at 10:30 Morphine Sulfate (morphine) 6 mg Q2H PRN PO FOR NON CARDIAC PAIN (4-10); Start 06/13/18 at 11:30 Docusate Sodium (Colace) 100 mg DAILY PRN PO CONSTIPATION; Start 06/21/18 at 12:00 Miscellaneous Information (Pending [facility] Order For Wound Care) This patient gomes... PRN PRN XX WOUND CARE; Start 06/21/18 at 16:00 Amiodarone HCl (Cordarone) 200 mg BID PO Last administered on 07/13/18at 08:16; Admin Dose 200 MG; Start 06/22/18 at 21:00 Ferrous Sulfate (Ferrous Sulfate (Ec)) 325 mg BID PO Last administered on 07/13/18at 08:15; Admin Dose 325 MG; Start 07/09/18 at 09:30 Docusate Sodium (Colace) 100 mg DAILY PO Last administered on 07/13/18at 08:15; Admin Dose 100 MG; Start 07/10/18 at 09:00 Warfarin Sodium (Coumadin) 5 mg DAILY@17 PO Last administered on 07/12/18at 16:24; Admin Dose 5 MG; Start 07/12/18 at 17:00; Status Hold Bumetanide (Bumex) 1 mg BID PO Last administered on 07/13/18at 09:50; Admin Dose 1 MG; Start 07/13/18 at 09:00 Miscellaneous Information (*Order Clarification Bulletin) PLEASE CLARIFY WITH . Q8H XX ; Start 07/13/18 at 11:00 SHARI CROWELL M.D. Jul 13, 2018 15:10
--- NOTE | 2018-07-13 16:36 | PN ---
Date/Time of Note Date/Time of Note DATE: 07/13/18 TIME: 16:31 Assessment/Plan VTE Prophylaxis Risk score (from Ns)>0 risk: 5 SCD applied (from Ns): Yes Pharmacological prophylaxis: warfarin tx Lines/Catheters IV Catheter Type (from Nrs): PICC Line Central line still needed: Yes Urinary Cath still in place: Yes Reason Cath still needed: urinary retention Assessment/Plan Hospital Course Patient remains hemodynamically stable, continues to have hematuria noted Via Mensah catheter, INR is 3.89, this was Dr. Moreno hold Coumadin today check PT and INR tomorrow. 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 Continue Mensah, monitor. Dr. Ashford is following in urology consultation. -Anemia of acute blood loss, transfuse PRN, monitor H&H. -S/p UTI, completed treatment with Zosyn. Dr. Castellanos is following in infection disease consultation. 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 -S/p Nose/oropharyngeal bleed on 06/11/2018, stopped after heparin was held. -Retroperitoneal bleed secondary to vascular injury status post stent placement. S/p CT guided placement of drainage catheter into pelvic hematoma on 06/05/18 and sequent removal. -Status post left heart catheterization with no significant obstructive coronary artery disease by Dr. Moreno on 05/27/2018. -Anemia of acute blood loss, status post blood transfusion, continue to monitor hemoglobin and hematocrit. -Urinary incontinence. -Acute illness myopathy -Status post mitral valve replacement with mechanical valve in 1999 in [facility]. Continue Coumadin, monitor PT/INR. -HTN, continue metoprolol -Hyperlipidemia -Hypothyroidism, continue levothyroxine -History of asthma Further recommendations based on clinical course. Plan of care discussed with Dr. Painter. Result Diagram: 07/13/18 0617 07/12/18 0657 Results 24hrs Laboratory Tests Test 07/13/18 06:14 07/13/18 06:17 Prothrombin Time 38.1 H Prothrombin Time Ratio 3.0 INR International Normalized Ratio 3.89 Hemoglobin 9.3 L Hematocrit 29.3 L Exam/Review of Systems Exam Vitals Vital Signs Date Temp Pulse Resp B/P (MAP) Pulse Ox O2 O2 Flow FiO2 Time Delivery Rate 07/13/18 91 12:16 07/13/18 97.8 20 122/56 96 Room Air 11:47 (78) Intake and Output 07/12/18 07/12/18 07/13/18 1515:00 23:00 07:00 IntakeIntake Total 550 ml 600 ml 300 ml OutputOutput Total 700 ml 1750 ml 500 ml BalanceBalance -150 ml -1150 ml -200 ml Exam Constitutional: alert, oriented Respiratory: clear to auscultation Cardiovascular: regular rate and rhythm Gastrointestinal: soft, other (Status post surgery) Musculoskeletal: nl extremities to inspection, lower back s/p surgery Extremities: normal pulses Neurological: nl mental status Skin: nl turgor Results Results 24hrs Laboratory Tests Test 07/13/18 06:14 07/13/18 06:17 Prothrombin Time 38.1 H Prothrombin Time Ratio 3.0 INR International Normalized Ratio 3.89 Hemoglobin 9.3 L Hematocrit 29.3 L Medications Medication Current Medications Levothyroxine Sodium (Synthroid) 50 mcg BEFORE BREAKFAST PO Last administered on 07/13/18 07:49; Admin Dose 50 MCG; Start 05/30/18 at 07:00 Mometasone Furoate (Asmanex) 1 puff DAILY INH Last administered on 07/13/18at 0 8:16; Admin Dose 1 PUFF; Start 05/29/18 at 11:00 Atorvastatin Calcium (Lipitor) 10 mg DAILY@21 PO Last administered on 07/12/18 21:00; Admin Dose 10 MG; Start 05/29/18 at 21:00 Latanoprost (Xalatan) 1 drop HS BOTH EYES Last administered on 07/12/18 21:02; Admin Dose 1 DROP; Start 06/01/18 at 21:00 Amlodipine Besylate (Norvasc) 5 mg DAILY PO ; Start 06/03/18 at 09:00; Status Hold Pantoprazole (Protonix Tab) 40 mg DAILY@06 PO Last administered on 07/13/18 07:50; Admin Dose 40 MG; Start 06/05/18 at 06:00 Metoclopramide HCl (Reglan) 5 mg TID PRN IV Nausea; Start 06/06/18 at 11:00 Polyethylene Glycol (Miralax) 17 gm BID PRN PO CONSTIPATION; Start 06/06/18 at 14:00 Bisacodyl (Dulcolax Supp) 10 mg DAILY PRN [place] CONSTIPATION; Start 06/06/18 at 14:00 IV Flush (NS 10 ml) 10 ml PRN PRN IV IV PROTOCOL; Start 06/06/18 at 16:00 Nystatin (Nystatin Susp) 5 ml QID PO Last administered on 07/13/18at 12:00; Admin Dose 5 ML; Start 06/06/18 at 17:00 Metoprolol Tartrate (Lopressor) 25 mg BID PO Last administered on 07/13/18at 08:17; Admin Dose 25 MG; Start 06/13/18 at 21:00 Metoprolol Tartrate (Lopressor) 5 mg Q4H PRN IV HR>110 Hold SBP<100; Start 06/13/18 at 10:30 Morphine Sulfate (morphine) 6 mg Q2H PRN PO FOR NON CARDIAC PAIN (4-10); Start 06/13/18 at 11:30 Docusate Sodium (Colace) 100 mg DAILY PRN PO CONSTIPATION; Start 06/21/18 at 12:00 Miscellaneous Information (Pending [facility] Order For Wound Care) This patient gomes... PRN PRN XX WOUND CARE; Start 06/21/18 at 16:00 Amiodarone HCl (Cordarone) 200 mg BID PO Last administered on 07/13/18at 08:16; Admin Dose 200 MG; Start 06/22/18 at 21:00 Ferrous Sulfate (Ferrous Sulfate (Ec)) 325 mg BID PO Last administered on 07/13/18at 08:15; Admin Dose 325 MG; Start 07/09/18 at 09:30 Docusate Sodium (Colace) 100 mg DAILY PO Last administered on 07/13/18 08:15; Admin Dose 100 MG; Start 07/10/18 at 09:00 Warfarin Sodium (Coumadin) 5 mg DAILY@17 PO Last administered on 07/12/18 16:24; Admin Dose 5 MG; Start 07/12/18 at 17:00; Status Hold Bumetanide (Bumex) 1 mg BID PO Last administered on 07/13/18 09:50; Admin Dose 1 MG; Start 07/13/18 at 09:00 Miscellaneous Information (*Order Clarification Bulletin) PLEASE CLARIFY WITH MD... Q8H XX ; Start 07/13/18 at 11:00 KRISTY MCCULLOUGH Jul 13, 2018 16:36
--- NOTE | 2018-07-13 20:07 | CONS ---
Assessment/Plan Assessment/Plan Assessment/Plan (Daily) Interval hx: Positive DELGADO screen. DELGADO titer 1:160. Speckled pattern. Tolerating regular diet. No nausea or abdominal pain. BM brown and soft. 1. 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 -Neg hepatitis panel -Antimitochondrial antibody, anti-smooth muscle antibody negative, ceruplasmin wnl. 2. Coronary artery disease, nonobstructive, with ejection fraction of 40 to 45%, nonischemic. 3. Hypertension. 4. Retroperitoneal bleed. 5. Mitral valve replacement due to mechanical mitral valve. 6. Hypothyroidism. 7. Urinary tract infection. 8. Paroxysmal atrial fibrillation, rate is controlled. 9. Hematuria. 10. Status post rupture of the urinary bladder. 11. Epistaxis -resolved 12. Positive stool guaiac may be from epistaxis 13. Coagulopathy- pt on coumadin 14. Leukopenia Plan Monitor HH and for signs of GI bleeding Continue present care Consultation Date/Type/Reason Admit Date/Time May 28, 2018 at 17:52 Initial Consult Date 06/03/18 Requesting Provider: JULY VALENTIN MD Date/Time of Note DATE: 07/13/18 TIME: 20:06 24 HR Interval Summary Free Text/Dictation Hematuria reduced Constitutional: improved Exam/Review of Systems Exam Vitals Vital Signs Date Temp Pulse Resp B/P (MAP) Pulse Ox O2 O2 Flow FiO2 Time Delivery Rate 07/13/18 81 16:30 07/13/18 98.2 18 128/72 96 Room Air 16:00 (90) Intake and Output 07/12/18 07/12/18 07/13/18 1515:00 23:00 07:00 IntakeIntake Total 550 ml 600 ml 300 ml OutputOutput Total 700 ml 1750 ml 500 ml BalanceBalance -150 ml -1150 ml -200 ml Constitutional: alert, oriented, well developed Psych: no complaints, nl mood/affect Head: normocephalic, atraumatic Eyes: nl conjunctiva, EOMI, nl lids, nl sclera, PERRL ENMT: nl external ears & nose, nl lips & teeth, nl nasal mucosa & septum Neck: supple, non-tender Respiratory: clear to auscultation, normal air movement Cardiovascular: regular rate and rhythm, nl pulses Gastrointestinal: soft, nl liver, spleen, non-tender Musculoskeletal: nl extremities to inspection, nl gait and stance Extremities: normal pulses Neurological: INSTRUMENTAL MUSICIAN II-XII intact, nl mental status, nl speech, nl strength Skin: nl turgor; No rash or lesions Lymph: nl lymph nodes Results Result Diagram: 07/13/18 0617 07/12/18 0657 Results 24hrs Laboratory Tests Test 07/13/18 06:14 07/13/18 06:17 Prothrombin Time 38.1 H Prothrombin Time Ratio 3.0 INR International Normalized Ratio 3.89 Hemoglobin 9.3 L Hematocrit 29.3 L Medications Medication Current Medications Levothyroxine Sodium (Synthroid) 50 mcg BEFORE BREAKFAST PO Last administered on 07/13/18 07:49; Admin Dose 50 MCG; Start 05/30/18 at 07:00 Mometasone Furoate (Asmanex) 1 puff DAILY INH Last administered on 07/13/18 08:16; Admin Dose 1 PUFF; Start 05/29/18 at 11:00 Atorvastatin Calcium (Lipitor) 10 mg DAILY@21 PO Last administered on 07/12/18 21:00; Admin Dose 10 MG; Start 05/29/18 at 21:00 Latanoprost (Xalatan) 1 drop HS BOTH EYES Last administered on 07/12/18 21:02; Admin Dose 1 DROP; Start 06/01/18 at 21:00 Amlodipine Besylate (Norvasc) 5 mg DAILY PO ; Start 06/03/18 at 09:00; Status Hold Pantoprazole (Protonix Tab) 40 mg DAILY@06 PO Last administered on 07/13/18 07:50; Admin Dose 40 MG; Start 06/05/18 at 06:00 Metoclopramide HCl (Reglan) 5 mg TID PRN IV Nausea; Start 06/06/18 at 11:00 Polyethylene Glycol (Miralax) 17 gm BID PRN PO CONSTIPATION; Start 06/06/18 at 14:00 Bisacodyl (Dulcolax Supp) 10 mg DAILY PRN [place] CONSTIPATION; Start 06/06/18 at 14:00 IV Flush (NS 10 ml) 10 ml PRN PRN IV IV PROTOCOL; Start 06/06/18 at 16:00 Nystatin (Nystatin Susp) 5 ml QID PO Last administered on 07/13/18 16:49; Admin Dose 5 ML; Start 06/06/18 at 17:00 Metoprolol Tartrate (Lopressor) 25 mg BID PO Last administered on 07/13/18 08:17; Admin Dose 25 MG; Start 06/13/18 at 21:00 Metoprolol Tartrate (Lopressor) 5 mg Q4H PRN IV HR>110 Hold SBP<100; Start 06/13/18 at 10:30 Morphine Sulfate (morphine) 6 mg Q2H PRN PO FOR NON CARDIAC PAIN (4-10); Start 06/13/18 at 11:30 Docusate Sodium (Colace) 100 mg DAILY PRN PO CONSTIPATION; Start 06/21/18 at 12:00 Miscellaneous Information (Pending [facility] Order For Wound Care) This patient gomes... PRN PRN XX WOUND CARE; Start 06/21/18 at 16:00 Amiodarone HCl (Cordarone) 200 mg BID PO Last administered on 07/13/18at 08:16; Admin Dose 200 MG; Start 06/22/18 at 21:00 Ferrous Sulfate (Ferrous Sulfate (Ec)) 325 mg BID PO Last administered on 07/13/18 08:15; Admin Dose 325 MG; Start 07/09/18 at 09:30 Docusate Sodium (Colace) 100 mg DAILY PO Last administered on 07/13/18 08:15; Admin Dose 100 MG; Start 07/10/18 at 09:00 Warfarin Sodium (Coumadin) 5 mg DAILY@17 PO Last administered on 07/12/18at 1 6:24; Admin Dose 5 MG; Start 07/12/18 at 17:00; Status Hold Bumetanide (Bumex) 1 mg BID PO Last administered on 07/13/18 09:50; Admin Dose 1 MG; Start 07/13/18 at 09:00 Miscellaneous Information (*Order Clarification Bulletin) PLEASE CLARIFY WITH ... Q8H XX ; Start 07/13/18 at 11:00 ALEXANDRU CHAPIN MD Jul 13, 2018 20:07
--- NOTE | 2018-07-13 20:42 | CONS ---
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 Requesting Provider: JULY VALENTIN MD Date/Time of Note DATE: 07/13/18 TIME: 20:39 Subjective Patient continues to improve. She has no pain and she is ambulating much better. Objective Vitals Vital Signs Date Temp Pulse Resp B/P (MAP) Pulse Ox O2 O2 Flow FiO2 Time Delivery Rate 07/13/18 81 16:30 07/13/18 98.2 18 128/72 96 Room Air 16:00 (90) Intake and Output 07/12/18 07/12/18 07/13/18 1414:59 22:59 06:59 IntakeIntake Total 550 ml 600 ml 300 ml OutputOutput Total 700 ml 1750 ml 500 ml BalanceBalance -150 ml -1150 ml -200 ml Exam The Mensah catheter is draining clear urine now. Results/Medications Result Diagram: 07/13/18 0617 07/12/18 0657 Results 24 hrs Laboratory Tests Test 07/13/18 06:14 07/13/18 06:17 Prothrombin Time 38.1 H Prothrombin Time Ratio 3.0 INR International Normalized Ratio 3.89 Hemoglobin 9.3 L Hematocrit 29.3 L Home Meds Reported Medications Albuterol Sulfate* (Ventolin HFA*) 18 Gm Hfa.aer.ad, 2 PUFF INHALATION Q4H, #1 INHALER 05/26/18 Ergocalciferol (Vitamin D2) (VITAMIN D2) 50,000 Unit Capsule, 02661 UNIT PO [id number], CAP 05/23/18 Warfarin Sodium* (Coumadin*) 5 Mg Tablet, 5 MG PO Q TU,THUR,SAT, TAB 05/23/18 Warfarin Sodium* (Coumadin*) 4 Mg Tablet, 4 MG PO Q MON,WED,FRI,SUN, TAB 05/23/18 Furosemide* (Furosemide*) 20 Mg Tablet, 20 MG PO DAILY, #60 TAB TAKE Q 2 DAYS 05/23/18 Simvastatin* (Zocor*) 20 Mg Tablet, 20 MG PO QHS, #30 TAB 05/23/18 Ranitidine Hcl* (Ranitidine Hcl*) 150 Mg Tablet, 150 MG PO HS, #30 TAB 05/23/18 Acetaminophen (Mapap) 500 Mg Capsule, 500 MG PO BID PRN for PAIN, CAP 05/23/18 Levothyroxine Sodium* (Levothyroxine Sodium*) 50 Mcg Tablet, 50 MCG PO BEFORE BREAKFAST, #30 TAB 05/23/18 Spironolactone* (Aldactone*) 25 Mg Tablet, 25 MG PO DAILY, #30 TAB 05/23/18 Beclomethasone Dipropionate (Qvar Redihaler (40 MCG)) 10.6 Gm Hfa.aeroba, 10.6 GM IH DAILY, INH 05/23/18 Amlodipine Besylate* (Norvasc*) 5 Mg Tablet, 5 MG PO BID, TAB 05/23/18 Losartan-Hydrochlorothiazide (Losartan-HCTZ) 100-25 Mg Tab, 1 TAB PO DAILY, TAB 05/23/18 Medications Current Medications Levothyroxine Sodium (Synthroid) 50 mcg BEFORE BREAKFAST PO Last administered on 07/13/18at 07:49; Admin Dose 50 MCG; Start 05/30/18 at 07:00 Mometasone Furoate (Asmanex) 1 puff DAILY INH Last administered on 07/13/18at 08:16; Admin Dose 1 PUFF; Start 05/29/18 at 11:00 Atorvastatin Calcium (Lipitor) 10 mg DAILY@21 PO Last administered on 07/12/18at 21:00; Admin Dose 10 MG; Start 05/29/18 at 21:00 Latanoprost (Xalatan) 1 drop HS BOTH EYES Last administered on 07/12/18at 21:02; Admin Dose 1 DROP; Start 06/01/18 at 21:00 Amlodipine Besylate (Norvasc) 5 mg DAILY PO ; Start 06/03/18 at 09:00; Status Hold Pantoprazole (Protonix Tab) 40 mg DAILY@06 PO Last administered on 07/13/18at 07:50; Admin Dose 40 MG; Start 06/05/18 at 06:00 Metoclopramide HCl (Reglan) 5 mg TID PRN IV Nausea; Start 06/06/18 at 11:00 Polyethylene Glycol (Miralax) 17 gm BID PRN PO CONSTIPATION; Start 06/06/18 at 14:00 Bisacodyl (Dulcolax Supp) 10 mg DAILY PRN [place] CONSTIPATION; Start 06/06/18 at 14:00 IV Flush (NS 10 ml) 10 ml PRN PRN IV IV PROTOCOL; Start 06/06/18 at 16:00 Nystatin (Nystatin Susp) 5 ml QID PO Last administered on 07/13/18at 16:49; Admin Dose 5 ML; Start 06/06/18 at 17:00 Metoprolol Tartrate (Lopressor) 25 mg BID PO Last administered on 07/13/18 08:17; Admin Dose 25 MG; Start 06/13/18 at 21:00 Metoprolol Tartrate (Lopressor) 5 mg Q4H PRN IV HR>110 Hold SBP<100; Start 06/13/18 at 10:30 Morphine Sulfate (morphine) 6 mg Q2H PRN PO FOR NON CARDIAC PAIN (4-10); Start 06/13/18 at 11:30 Docusate Sodium (Colace) 100 mg DAILY PRN PO CONSTIPATION; Start 06/21/18 at 12:00 Miscellaneous Information (Pending [facility] Order For Wound Care) This patient gomes... PRN PRN XX WOUND CARE; Start 06/21/18 at 16:00 Amiodarone HCl (Cordarone) 200 mg BID PO Last administered on 07/13/18 08:16; Admin Dose 200 MG; Start 06/22/18 at 21:00 Ferrous Sulfate (Ferrous Sulfate (Ec)) 325 mg BID PO Last administered on 07/13/18 08:15; Admin Dose 325 MG; Start 07/09/18 at 09:30 Docusate Sodium (Colace) 100 mg DAILY PO Last administered on 07/13/18 08:15; Admin Dose 100 MG; Start 07/10/18 at 09:00 Warfarin Sodium (Coumadin) 5 mg DAILY@17 PO Last administered on 07/12/18 16:24; Admin Dose 5 MG; Start 07/12/18 at 17:00; Status Hold Bumetanide (Bumex) 1 mg BID PO Last administered on 07/13/18 09:50; Admin Dose 1 MG; Start 07/13/18 at 09:00 Miscellaneous Information (*Order Clarification Bulletin) PLEASE CLARIFY WITH ... Q8H XX ; Start 07/13/18 at 11:00 Assessment/Plan Hospital Course (Demo Recall) 62-year-old female underwent coronary angiogram. 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 I did insert the catheter for her and she was anuric. Since then she has improved and has been making urine and the urine was clear however today her urine was bloody. We checked her postvoid residual and she had only 175 mL. Urine was sent for culture and sensitivity. Her last urine culture was no growth after 48 hours. The patient has been having hematuria for the past 2 days and today as she is to drop to have the physical therapy a lot of blood came out. I ordered CT scan of the abdomen and pelvis to see if the hematoma has fistulized into the bladder. She underwent a CT scan and that was reported: 1. Compared to the previous exam of 06/06/2018, the previously seen right lower quadrant pigtail catheter has been removed and the chronic hemoperitoneum or pelvic hematoma has decreased in volume now estimated at 1033 cc compared to all 1260 cc with evolution of the blood products, the attenuation decreasing from 72 HU to 45 HU. Continued surveillance is recommended with follow-up CT as determined clinically. 2. Atrophic uterus without endometrial thickening or other findings to explain the patient's provided history of vaginal bleeding. 3. Post thoracotomy changes with marked cardiomegaly, mitral valve prosthesis, left ventricular apex calcification and increased bibasilar subsegmental atelectasis. 4. Nodular contour to the liver consistent with cirrhosis is again noted. 5. Cholelithiasis without evidence for cholecystitis. 6. Stable mild splenomegaly. 7. Tiny left intrarenal calculus without hydronephrosis. 8. Contracted urinary bladder is difficult to evaluate. 9. Resolved small bowel wall thickening, enteric contrast media within the colon with diverticular disease but no diverticulitis. 10. Resolved anasarca pattern of the subcutaneous tissues I did call the radiologist who read the CT scan and discussed with him the clinical reasons I requested the CT scan and the suspicion that I had for a fistula. He did review the CT while I was talking with him and added an amendment to the report that says: AMENDMENT: 07/01/2018 7:59:21 PM Anjum Naun D.o A telephone conversation takes place with the patient's urologist, Dr. Godwin, at 19:50 and he kindly provides additional history of sudden onset of hematuria upon standing. Upon further review of the images, there is loss of the normal fat plane between the pelvic hematoma with the anterior dome of the urinary bladder which cannot exclude the possibility of a fistula between the hematoma and a bladder that would explain the patients hematuria. There is preservation of the fat plane between the hematoma and the middle and inferior portion of the anterior urinary bladder. There is no evidence of loss of fat plane between the hematoma and vagina to suggest a fistula in this location. It is discussed that the patient would likely benefit from further evaluation with a CT cystogram performed in the prone position to limit the amount of contrast to opacify the potential fistula. The patient underwent a CT cystogram and that indeed did show the fistula between the bladder and the pelvic hematoma. The bleeding in her urine is coming from that hematoma. I did show her son the pictures and explained to him that if the hematoma drains through the bladder we just have to keep the Mensah catheter in and wait for it to drain completely and then the bladder hopefully will heal by itself and if it does not we could always do surgery and close it. At the present the Mensah catheter is draining clear urine. Patient is comfortable and she has no pain. The abdomen is softer and the suprapubic mass continues to get smaller. For now continue the same: Keep the Mensah catheter in place, Patient also was restarted on Coumadin . CT cystogram in 2 days to evaluate the size of the hematoma and see if it has resolved and also see the opening into the bladder. JOAQUIN DE LEON MD Jul 13, 2018 20:42
[2018-07-13] MEDS: ATORVASTATIN 10 MG TAB PO SCH (21:14)
[2018-07-13] MEDS: LATANOPROST 0.005% 2.5 ML OPH BOTH EYES SCH (21:16)
[2018-07-14] VITALS (13 sets, daily range): BP systolic 95–133; BP diastolic 50–63; PULSE 72–104; RESP 18
[2018-07-14] MEDS: LEVOTHYROXINE 50 MCG TAB PO SCH (06:34)
[2018-07-14] MEDS: PANTOPRAZOLE (EC) 40 MG TAB PO SCH (06:34)
[2018-07-14] MEDS ORDERED: POTASSIUM CHLORIDE (SR) 20 MEQ TAB PO STA (08:13)
--- NOTE | 2018-07-14 08:35 | CONS ---
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 Requesting Provider: JULY VALENTIN MD Date/Time of Note DATE: 07/14/18 TIME: 08:31 Subjective The patient is feeling better, she has no pain. Objective Vitals Vital Signs Date Temp Pulse Resp B/P (MAP) Pulse Ox O2 O2 Flow FiO2 Time Delivery Rate 07/14/18 98.1 82 18 124/58 95 Room Air 07:44 (80) Intake and Output 07/13/18 07/13/18 07/14/18 1414:59 22:59 06:59 IntakeIntake Total 600 ml 400 ml OutputOutput Total 2800 ml 1100 ml BalanceBalance -2200 ml -700 ml Exam The Mensah catheter is draining clear urine but today it has a lot of what appears to be necrotic tissue and sediment and that could be coming from the hematoma. Results/Medications Result Diagram: 07/14/18 0604 07/14/18 0604 Results 24 hrs Laboratory Tests Test 07/14/18 06:04 White Blood Count 5.0 Red Blood Count 3.05 #L Hemoglobin 9.6 L Hematocrit 30.1 L Mean Corpuscular Volume 98.7 Mean Corpuscular Hemoglobin 31.5 Mean Corpuscular Hemoglobin Concent 31.9 L Red Cell Distribution Width 17.2 H Platelet Count 169 Mean Platelet Volume 9.5 Immature Granulocytes % 1.000 H Neutrophils % 64.7 Lymphocytes % 25.6 Monocytes % 7.1 Eosinophils % 1.2 Basophils % 0.4 Nucleated Red Blood Cells % 0.0 Immature Granulocytes # 0.050 H Neutrophils # 3.3 Lymphocytes # 1.3 Monocytes # 0.4 Eosinophils # 0.1 Basophils # 0.0 Nucleated Red Blood Cells # 0.0 Prothrombin Time 33.8 H Prothrombin Time Ratio 2.6 INR International Normalized Ratio 3.33 Sodium Level 138 Potassium Level 3.2 L Chloride Level 101 Carbon Dioxide Level 32 H Anion Gap 5 Blood Urea Nitrogen 22 H Creatinine 0.61 Est Glomerular Filtrat Rate mL/min > 60 Glucose Level 102 Calcium Level 8.6 Phosphorus Level 3.8 Magnesium Level 1.7 Home Meds Reported Medications Albuterol Sulfate* (Ventolin HFA*) 18 Gm Hfa.aer.ad, 2 PUFF INHALATION Q4H, #1 INHALER 05/26/18 Ergocalciferol (Vitamin D2) (VITAMIN D2) 50,000 Unit Capsule, 05649 UNIT PO [id number], CAP 05/23/18 Warfarin Sodium* (Coumadin*) 5 Mg Tablet, 5 MG PO Q TUES,THUR,SAT, TAB 05/23/18 Warfarin Sodium* (Coumadin*) 4 Mg Tablet, 4 MG PO Q MON,WED,FRI,SUN, TAB 05/23/18 Furosemide* (Furosemide*) 20 Mg Tablet, 20 MG PO DAILY, #60 TAB TAKE Q 2 DAYS 05/23/18 Simvastatin* (Zocor*) 20 Mg Tablet, 20 MG PO QHS, #30 TAB 05/23/18 Ranitidine Hcl* (Ranitidine Hcl*) 150 Mg Tablet, 150 MG PO HS, #30 TAB 05/23/18 Acetaminophen (Mapap) 500 Mg Capsule, 500 MG PO BID PRN for PAIN, CAP 05/23/18 Levothyroxine Sodium* (Levothyroxine Sodium*) 50 Mcg Tablet, 50 MCG PO BEFORE BREAKFAST, #30 TAB 05/23/18 Spironolactone* (Aldactone*) 25 Mg Tablet, 25 MG PO DAILY, #30 TAB 05/23/18 Beclomethasone Dipropionate (Qvar Redihaler (40 MCG)) 10.6 Gm Hfa.aeroba, 10.6 GM IH DAILY, INH 05/23/18 Amlodipine Besylate* (Norvasc*) 5 Mg Tablet, 5 MG PO BID, TAB 05/23/18 Losartan-Hydrochlorothiazide (Losartan-HCTZ) 100-25 Mg Tab, 1 TAB PO DAILY, TAB 05/23/18 Medications Current Medications Levothyroxine Sodium (Synthroid) 50 mcg BEFORE BREAKFAST PO Last administered on 07/14/18at 06:34; Admin Dose 50 MCG; Start 05/30/18 at 07:00 Mometasone Furoate (Asmanex) 1 puff DAILY INH Last administered on 07/13/18at 08:16; Admin Dose 1 PUFF; Start 05/29/18 at 11:00 Atorvastatin Calcium (Lipitor) 10 mg DAILY@21 PO Last administered on 07/13/18at 21:14; Admin Dose 10 MG; Start 05/29/18 at 21:00 Latanoprost (Xalatan) 1 drop HS BOTH EYES Last administered on 07/13/18at 21:16; Admin Dose 1 DROP; Start 06/01/18 at 21:00 Amlodipine Besylate (Norvasc) 5 mg DAILY PO ; Start 06/03/18 at 09:00; Status Hold Pantoprazole (Protonix Tab) 40 mg DAILY@06 PO Last administered on 07/14/18at 06:34; Admin Dose 40 MG; Start 06/05/18 at 06:00 Metoclopramide HCl (Reglan) 5 mg TID PRN IV Nausea; Start 06/06/18 at 11:00 Polyethylene Glycol (Miralax) 17 gm BID PRN PO CONSTIPATION; Start 06/06/18 at 14:00 Bisacodyl (Dulcolax Supp) 10 mg DAILY PRN [place] CONSTIPATION; Start 06/06/18 at 14:00 IV Flush (NS 10 ml) 10 ml PRN PRN IV IV PROTOCOL; Start 06/06/18 at 16:00 Nystatin (Nystatin Susp) 5 ml QID PO Last administered on 07/13/18at 21:15; Admin Dose 5 ML; Start 06/06/18 at 17:00 Metoprolol Tartrate (Lopressor) 25 mg BID PO Last administered on 07/13/18at 08:17; Admin Dose 25 MG; Start 06/13/18 at 21:00 Metoprolol Tartrate (Lopressor) 5 mg Q4H PRN IV HR>110 Hold SBP<100; Start 06/13/18 at 10:30 Morphine Sulfate (morphine) 6 mg Q2H PRN PO FOR NON CARDIAC PAIN (4-10); Start 06/13/18 at 11:30 Docusate Sodium (Colace) 100 mg DAILY PRN PO CONSTIPATION; Start 06/21/18 at 12:00 Miscellaneous Information (Pending [facility] Order For Wound Care) This patient gomes... PRN PRN XX WOUND CARE; Start 06/21/18 at 16:00 Amiodarone HCl (Cordarone) 200 mg BID PO Last administered on 07/13/18at 21:15; Admin Dose 200 MG; Start 06/22/18 at 21:00 Ferrous Sulfate (Ferrous Sulfate (Ec)) 325 mg BID PO Last administered on 07/13/18at 21:15; Admin Dose 325 MG; Start 07/09/18 at 09:30 Docusate Sodium (Colace) 100 mg DAILY PO Last administered on 07/13/18at 08:15; Admin Dose 100 MG; Start 07/10/18 at 09:00 Warfarin Sodium (Coumadin) 5 mg DAILY@17 PO Last administered on 07/12/18at 16:24; Admin Dose 5 MG; Start 07/12/18 at 17:00; Status Hold Bumetanide (Bumex) 1 mg BID PO Last administered on 07/13/18at 21:14; Admin Dose 1 MG; Start 07/13/18 at 09:00 Miscellaneous Information (*Order Clarification Bulletin) PLEASE CLARIFY WITH .. Q8H XX ; Start 07/13/18 at 11:00 Assessment/Plan Hospital Course (Demo Recall) 62-year-old female underwent coronary angiogram. She did have right femoral artery bleeding with a pseudoaneurysm which was managed by undergoing: Covered stent placement 6 x 100 mm right common femoral artery and right external iliac artery The patient had a pelvic hematoma which has fistulized into the bladder. She has a Mensah catheter which was draining bloody urine initially but now the drainage is clear. The size of the hematoma has been decreasing. We will do a CT cystogram tomorrow to see if the hematoma has decreased and also if the opening onto the bladder has also decreased. JOAQUIN DE LEON MD Jul 14, 2018 08:35
--- NOTE | 2018-07-14 08:39 | PN ---
DATE: 07/14/2018 SUBJECTIVE: The patient is stable, continues to have mild hematuria. No other events noted. OBJECTIVE: VITAL SIGNS: Blood pressure is 124/58, pulse 82, respirations 18, temperature 98.1. HEENT: Head is normocephalic. NECK: Supple. HEART: Regular rate. Positive click. LUNGS: Show diminished breath sounds at the base. ABDOMEN: Soft, nontender to palpation. No rebound or guarding. EXTREMITIES: Negative for clubbing, cyanosis, no edema. DERMATOLOGIC: No rashes. MUSCULOSKELETAL: No joint effusion. NEUROLOGIC: No change in exam. MEDICATIONS: The patient's medications have been reviewed. LABORATORY DATA: From 07/14/2018 was reviewed. ASSESSMENT AND PLAN: 1. Nonoliguric acute kidney injury with previously normal baseline creatinine. Etiology of acute ki dney injury is secondary to acute tubular necrosis. Renal function is improved. Continue current tr eatment plan, supportive care, renally dose all medicines. 2. 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 The patient's hematur ia is improving. Continue to monitor. 3. Volume overload. Continue diuretic regimen and monitor electrolytes and renal function closely. 4. Hypokalemia. We will replete with potassium chloride. 5. Anemia. Continue to monitor hemoglobin and hematocrit levels. 6. Mechanical heart valve. Continue anticoagulation per cardiology. 7. Sepsis secondary to urinary tract infection. The patient is completing antibiotic course. 8. Hypothyroidism. Continue Synthroid. 9. Dyslipidemia. Continue statin therapy. 10. Hypertension. Continue current blood pressure regimen. 11. Urinary tract infection. The patient is completing antibiotic course. 12. Liver cirrhosis. Continue medical management. 13. Intraabdominal hematoma. Dictated By: GWYN FABIAN DO NR/NTS Conf#: [id number] DID#: [id number] CC: JOAQUIN DE LEON MD; CHRIS LAZAR MD; JULY VALENTIN MD;*End*
[2018-07-14] MEDS: AMIODARONE 200 MG TAB PO SCH ×2 (10:08→21:06)
[2018-07-14] MEDS: BUMETANIDE 1 MG TAB PO SCH ×2 (10:08→21:04)
[2018-07-14] MEDS: DOCUSATE SODIUM 100 MG CAP PO SCH (10:08)
[2018-07-14] MEDS: FERROUS SULFATE (EC) 325 MG TAB PO SCH ×2 (10:09→21:05)
[2018-07-14] MEDS: METOPROLOL 25 MG TAB PO SCH ×2 (10:09→21:00)
[2018-07-14] MEDS: MOMETASONE 0.24 GM INHALER INH SCH (10:09)
[2018-07-14] MEDS: NYSTATIN SUSP 5 ML CUP PO SCH ×4 (10:09→21:07)
--- NOTE | 2018-07-14 12:09 | CONS ---
Assessment/Plan Assessment/Plan Assessment/Plan (Daily) Interval hx: Positive DELGADO screen. DELGADO titer 1:160. Speckled pattern. Tolerating regular diet. No nausea or abdominal pain. BM brown and soft. 1. 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 Globulin is also within normal limit -Neg hepatitis panel -Antimitochondrial antibody, anti-smooth muscle antibody negative, ceruplasmin wnl. 2. Coronary artery disease, nonobstructive, with ejection fraction of 40 to 45%, nonischemic. 3. Hypertension. 4. Retroperitoneal bleed. 5. Mitral valve replacement due to mechanical mitral valve. 6. Hypothyroidism. 7. Urinary tract infection. 8. Paroxysmal atrial fibrillation, rate is controlled. 9. Hematuria. 10. Status post rupture of the urinary bladder. 11. Epistaxis -resolved 12. Positive stool guaiac may be from epistaxis 13. Coagulopathy- pt on coumadin 14. Leukopenia Plan Monitor HH and for signs of GI bleeding Continue present care Repeat CT scan is ordered by Dr. Godwin will review them Consultation Date/Type/Reason Admit Date/Time May 28, 2018 at 17:52 Initial Consult Date 06/03/18 Requesting Provider: JULY VALENTIN MD Date/Time of Note DATE: 07/14/18 TIME: 12:07 24 HR Interval Summary Constitutional: no complaints, improved Exam/Review of Systems Exam Vitals Vital Signs Date Temp Pulse Resp B/P (MAP) Pulse Ox O2 O2 Flow FiO2 Time Delivery Rate 07/14/18 97.7 74 18 115/56 96 Room Air 11:34 (75) Intake and Output 07/13/18 07/13/18 07/14/18 1515:00 23:00 07:00 IntakeIntake Total 600 ml 400 ml OutputOutput Total 2800 ml 1100 ml BalanceBalance -2200 ml -700 ml Constitutional: alert, oriented, well developed Psych: no complaints, nl mood/affect Head: normocephalic, atraumatic Eyes: nl conjunctiva, EOMI, nl lids, nl sclera, PERRL ENMT: nl external ears & nose, nl lips & teeth, nl nasal mucosa & septum Neck: supple, non-tender Respiratory: clear to auscultation, normal air movement Cardiovascular: regular rate and rhythm, nl pulses Gastrointestinal: soft, nl liver, spleen, non-tender Musculoskeletal: nl extremities to inspection, nl gait and stance Extremities: normal pulses Neurological: MASH GRINDER II-XII intact, nl mental status, nl speech, nl strength Skin: nl turgor; No rash or lesions Lymph: nl lymph nodes Results Result Diagram: 07/14/18 0604 07/14/18 0604 Results 24hrs Laboratory Tests Test 07/14/18 06:04 White Blood Count 5.0 Red Blood Count 3.05 #L Hemoglobin 9.6 L Hematocrit 30.1 L Mean Corpuscular Volume 98.7 Mean Corpuscular Hemoglobin 31.5 Mean Corpuscular Hemoglobin Concent 31.9 L Red Cell Distribution Width 17.2 H Platelet Count 169 Mean Platelet Volume 9.5 Immature Granulocytes % 1.000 H Neutrophils % 64.7 Lymphocytes % 25.6 Monocytes % 7.1 Eosinophils % 1.2 Basophils % 0.4 Nucleated Red Blood Cells % 0.0 Immature Granulocytes # 0.050 H Neutrophils # 3.3 Lymphocytes # 1.3 Monocytes # 0.4 Eosinophils # 0.1 Basophils # 0.0 Nucleated Red Blood Cells # 0.0 Prothrombin Time 33.8 H Prothrombin Time Ratio 2.6 INR International Normalized Ratio 3.33 Sodium Level 138 Potassium Level 3.2 L Chloride Level 101 Carbon Dioxide Level 32 H Anion Gap 5 Blood Urea Nitrogen 22 H Creatinine 0.61 Est Glomerular Filtrat Rate mL/min > 60 Glucose Level 102 Calcium Level 8.6 Phosphorus Level 3.8 Magnesium Level 1.7 Medications Medication Current Medications Levothyroxine Sodium (Synthroid) 50 mcg BEFORE BREAKFAST PO Last administered on 07/14/18 06:34; Admin Dose 50 MCG; Start 05/30/18 at 07:00 Mometasone Furoate (Asmanex) 1 puff DAILY INH Last administered on 07/14/18 10:09; Admin Dose 1 PUFF; Start 05/29/18 at 11:00 Atorvastatin Calcium (Lipitor) 10 mg DAILY@21 PO Last administered on 07/13/18 21:14; Admin Dose 10 MG; Start 05/29/18 at 21:00 Latanoprost (Xalatan) 1 drop HS BOTH EYES Last administered on 07/13/18 21:16; Admin Dose 1 DROP; Start 06/01/18 at 21:00 Amlodipine Besylate (Norvasc) 5 mg DAILY PO ; Start 06/03/18 at 09:00; Status Hold Pantoprazole (Protonix Tab) 40 mg DAILY@06 PO Last administered on 07/14/18at 06:34; Admin Dose 40 MG; Start 06/05/18 at 06:00 Metoclopramide HCl (Reglan) 5 mg TID PRN IV Nausea; Start 06/06/18 at 11:00 Polyethylene Glycol (Miralax) 17 gm BID PRN PO CONSTIPATION; Start 06/06/18 at 14:00 Bisacodyl (Dulcolax Supp) [address] CONSTIPATION; Start 06/06/18 at 14:00 IV Flush (NS 10 ml) 10 ml PRN PRN IV IV PROTOCOL; Start 06/06/18 at 16:00 Nystatin (Nystatin Susp) 5 ml QID PO Last administered on 07/14/18at 10:09; Admin Dose 5 ML; Start 06/06/18 at 17:00 Metoprolol Tartrate (Lopressor) 25 mg BID PO Last administered on 07/14/18at 1 0:09; Admin Dose 25 MG; Start 06/13/18 at 21:00 Metoprolol Tartrate (Lopressor) 5 mg Q4H PRN IV HR>110 Hold SBP<100; Start 06/13/18 at 10:30 Morphine Sulfate (morphine) 6 mg Q2H PRN PO FOR NON CARDIAC PAIN (4-10); Start 06/13/18 at 11:30 Docusate Sodium (Colace) 100 mg DAILY PRN PO CONSTIPATION; Start 06/21/18 at 12:00 Miscellaneous Information (Pending [facility] Order For Wound Care) This patient gomes ... PRN PRN XX WOUND CARE; Start 06/21/18 at 16:00 Amiodarone HCl (Cordarone) 200 mg BID PO Last administered on 07/14/18 10:08; Admin Dose 200 MG; Start 06/22/18 at 21:00 Ferrous Sulfate (Ferrous Sulfate (Ec)) 325 mg BID PO Last administered on 07/14/18 10:09; Admin Dose 325 MG; Start 07/09/18 at 09:30 Docusate Sodium (Colace) 100 mg DAILY PO Last administered on 4/4/19at 10:08; Admin Dose 100 MG; Start 07/10/18 at 09:00 Warfarin Sodium (Coumadin) 5 mg DAILY@17 PO Last administered on 07/12/18at 16:24; Admin Dose 5 MG; Start 07/12/18 at 17:00; Status Hold Bumetanide (Bumex) 1 mg BID PO Last administered on 07/14/18at 10:08; Admin Dose 1 MG; Start 07/13/18 at 09:00 Miscellaneous Information (*Order Clarification Bulletin) PLEASE CLARIFY WITH ... Q8H XX ; Start 07/13/18 at 11:00 ALEXANDRU CHAPIN MD Jul 14, 2018 12:09
--- NOTE | 2018-07-14 13:31 | CONS ---
[facility] HCIS Consult Follow-up Patient Name: Quyen Sexton Unit Number: [id number] Date of : 1955 Patient Status: Admitted Inpatient Attending Doctor: July Valentin MD Edit: SHARI MOLINA M.D. on 07/15/18 @ 20:11 I discussed the management with JULIEN Jaramillo and agree Assessment/Plan Assessment/Plan Hospital Course (Demo Recall) # sepsis, cardiopulmonary - s/p severe sepsis due to UTI, resolved - s/p SIRS due to acute blood loss, resolved - s/p L heart catheterization on 05/27/2018 showing no significant obstructive CAD - CAD - s/p CABG in [facility] in 1982 - H/o MVR with mechanical valve, in 1999 - Hypertension - PAF - Asthma # urology/renal, GI - hematuria caused by ruptured urinary bladder - Mensah was exchanged on 07/12/2018 because her older catheter was leaking - CT abd/pel on 07/02/18 showed large extravasation of contrast administered through a F/c into the large anterior pelvic fluid collection is demonstrated, consistent with bladder rupture. no contrast seen within the vagina to suggest fistulization with the overlying urinary bladder. - s/p UTI due to hafnai alvei and pediococci on 06/30/18. Pt completed pip/tazo (07/02/18-07/05/2018) - S/p UTI due to E. coli. 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 Molina Consultation Date/Type/Reason Admit Date/Time May 28, 2018 at 17:52 Initial Consult Date 06/02/18 Type of Consult Infectious Disease Requesting Provider: JULY VALENTIN MD Date/Time of Note DATE: 07/14/18 TIME: 13:30 24 HR Interval Summary Free Text/Dictation Denies fever, chills, pain or SOB. States Mensah started to leak this afternoon. Exam/Review of Systems Exam Vitals Vital Signs Date Temp Pulse Resp B/P (MAP) Pulse Ox O2 O2 Flow FiO2 Time Delivery Rate 07/14/18 74 12:59 07/14/18 97.7 18 115/56 96 Room Air 11:34 (75) Intake and Output 07/13/18 07/13/18 07/14/18 1515:00 23:00 07:00 IntakeIntake Total 600 ml 400 ml OutputOutput Total 2800 ml 1100 ml BalanceBalance -2200 ml -700 ml Exam Constitutional: alert, oriented, well developed, other (sitting at edge of bed in no acute distress; Spouse at bedside) Psych: no complaints, nl mood/affect Head: normocephalic, atraumatic Eyes: nl conjunctiva, nl lids, nl sclera ENMT: nl external ears & nose, nl nasal mucosa & septum, mucosa pink and moist Neck: supple, non-tender (not swollen) Respiratory: clear to auscultation, normal air movement Cardiovascular: regular rate and rhythm, nl pulses, no edema Gastrointestinal: soft, other (NT, ND) Genitourinary - Female: other (Mensah with faint hematuria and no blood clots and urine noted also on pt's bed that she is sitting on) Musculoskeletal: nl extremities to inspection Extremities: normal pulses 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, nl mental status, nl speech Skin: nl turgor, ecchymosis (scattered); No rash or lesions Results Result Diagram: 07/14/18 0604 07/14/18 0604 Results 24hrs Laboratory Tests Test 07/14/18 06:04 White Blood Count 5.0 Red Blood Count 3.05 #L Hemoglobin 9.6 L Hematocrit 30.1 L Mean Corpuscular Volume 98.7 Mean Corpuscular Hemoglobin 31.5 Mean Corpuscular Hemoglobin Concent 31.9 L Red Cell Distribution Width 17.2 H Platelet Count 169 Mean Platelet Volume 9.5 Immature Granulocytes % 1.000 H Neutrophils % 64.7 Lymphocytes % 25.6 Monocytes % 7.1 Eosinophils % 1.2 Basophils % 0.4 Nucleated Red Blood Cells % 0.0 Immature Granulocytes # 0.050 H Neutrophils # 3.3 Lymphocytes # 1.3 Monocytes # 0.4 Eosinophils # 0.1 Basophils # 0.0 Nucleated Red Blood Cells # 0.0 Prothrombin Time 33.8 H Prothrombin Time Ratio 2.6 INR International Normalized Ratio 3.33 Sodium Level 138 Potassium Level 3.2 L Chloride Level 101 Carbon Dioxide Level 32 H Anion Gap 5 Blood Urea Nitrogen 22 H Creatinine 0.61 Est Glomerular Filtrat Rate mL/min > 60 Glucose Level 102 Calcium Level 8.6 Phosphorus Level 3.8 Magnesium Level 1.7 Medications Medication Current Medications Levothyroxine Sodium (Synthroid) 50 mcg BEFORE BREAKFAST PO Last administered on 07/14/18at 06:34; Admin Dose 50 MCG; Start 05/30/18 at 07:00 Mometasone Furoate (Asmanex) 1 puff DAILY INH Last administered on 07/14/18at 10:09; Admin Dose 1 PUFF; Start 05/29/18 at 11:00 Atorvastatin Calcium (Lipitor) 10 mg DAILY@21 PO Last administered on 07/13/18 21:14; Admin Dose 10 MG; Start 05/29/18 at 21:00 Latanoprost (Xalatan) 1 drop HS BOTH EYES Last administered on 07/13/18at 21:16; Admin Dose 1 DROP; Start 06/01/18 at 21:00 Amlodipine Besylate (Norvasc) 5 mg DAILY PO ; Start 06/03/18 at 09:00; Status Hold Pantoprazole (Protonix Tab) 40 mg DAILY@06 PO Last administered on 07/14/18 06:34; Admin Dose 40 MG; Start 06/05/18 at 06:00 Metoclopramide HCl (Reglan) 5 mg TID PRN IV Nausea; Start 06/06/18 at 11:00 Polyethylene Glycol (Miralax) 17 gm BID PRN PO CONSTIPATION; Start 06/06/18 at 14:00 Bisacodyl (Dulcolax Supp) 10 mg DAILY PRN [place] CONSTIPATION; Start 06/06/18 at 14:00 IV Flush (NS 10 ml) 10 ml PRN PRN IV IV PROTOCOL; Start 06/06/18 at 16:00 Nystatin (Nystatin Susp) 5 ml QID PO Last administered on 07/14/18 10:09; Admin Dose 5 ML; Start 06/06/18 at 17:00 Metoprolol Tartrate (Lopressor) 25 mg BID PO Last administered on 07/14/18 10 :09; Admin Dose 25 MG; Start 06/13/18 at 21:00 Metoprolol Tartrate (Lopressor) 5 mg Q4H PRN IV HR>110 Hold SBP<100; Start 06/13/18 at 10:30 Morphine Sulfate (morphine) 6 mg Q2H PRN PO FOR NON CARDIAC PAIN (4-10); Start 06/13/18 at 11:30 Docusate Sodium (Colace) 100 mg DAILY PRN PO CONSTIPATION; Start 06/21/18 at 12:00 Miscellaneous Information (Pending Santyl Order For Wound Care) This patient gomes. .. PRN PRN XX WOUND CARE; Start 06/21/18 at 16:00 Amiodarone HCl (Cordarone) 200 mg BID PO Last administered on 07/14/18 10:08; Admin Dose 200 MG; Start 06/22/18 at 21:00 Ferrous Sulfate (Ferrous Sulfate (Ec)) 325 mg BID PO Last administered on 07/14/18 10:09; Admin Dose 325 MG; Start 07/09/18 at 09:30 Docusate Sodium (Colace) 100 mg DAILY PO Last administered on 07/14/18 10:08; Admin Dose 100 MG; Start 07/10/18 at 09:00 Warfarin Sodium (Coumadin) 5 mg DAILY@17 PO Last administered on 07/12/18 16:24; Admin Dose 5 MG; Start 07/12/18 at 17:00; Status Hold Bumetanide (Bumex) 1 mg BID PO Last administered on 07/14/18at 10:08; Admin Dose 1 MG; Start 07/13/18 at 09:00 Miscellaneous Information (*Order Clarification Bulletin) PLEASE CLARIFY WITH . Q8H XX ; Start 07/13/18 at 11:00 KISHORE JARAMILLO NP Jul 14, 2018 13:31
--- NOTE | 2018-07-14 14:36 | PN ---
Date/Time of Note Date/Time of Note DATE: 07/14/18 TIME: 14:32 Assessment/Plan VTE Prophylaxis Risk score (from Ns)>0 risk: 5 SCD applied (from Ns): Yes Pharmacological prophylaxis: warfarin tx Lines/Catheters IV Catheter Type (from Nrs): PICC Line Central line still needed: Yes Urinary Cath still in place: Yes Reason Cath still needed: other (indicate) Assessment/Plan Hospital Course Patient continues to have hematuria, patient will undergo CT of the pelvis. 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 Continue Mensah, monitor. Dr. Ashford is following in urology consultation. -Anemia of acute blood loss, transfuse PRN, monitor H&H. -S/p UTI, completed treatment with Zosyn. Dr. Castellanos is following in infection disease consultation. 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 -S/p Nose/oropharyngeal bleed on 06/11/2018, stopped after heparin was held. -Retroperitoneal bleed secondary to vascular injury status post stent placement. S/p CT guided placement of drainage catheter into pelvic hematoma on 06/05/18 and sequent removal. -Status post left heart catheterization with no significant obstructive coronary artery disease by Dr. Moreno on 05/27/2018. -Anemia of acute blood loss, status post blood transfusion, continue to monitor hemoglobin and hematocrit. -Urinary incontinence. -Acute illness myopathy -Status post mitral valve replacement with mechanical valve in 1999 in [facility]. Continue Coumadin, monitor PT/INR. -HTN, continue metoprolol -Hyperlipidemia -Hypothyroidism, continue levothyroxine -History of asthma Further recommendations based on clinical course. Plan of care discussed with Dr. Painter. Result Diagram: 07/14/18 0604 07/14/18 0604 Results 24hrs Laboratory Tests Test 07/14/18 06:04 White Blood Count 5.0 Red Blood Count 3.05 #L Hemoglobin 9.6 L Hematocrit 30.1 L Mean Corpuscular Volume 98.7 Mean Corpuscular Hemoglobin 31.5 Mean Corpuscular Hemoglobin Concent 31.9 L Red Cell Distribution Width 17.2 H Platelet Count 169 Mean Platelet Volume 9.5 Immature Granulocytes % 1.000 H Neutrophils % 64.7 Lymphocytes % 25.6 Monocytes % 7.1 Eosinophils % 1.2 Basophils % 0.4 Nucleated Red Blood Cells % 0.0 Immature Granulocytes # 0.050 H Neutrophils # 3.3 Lymphocytes # 1.3 Monocytes # 0.4 Eosinophils # 0.1 Basophils # 0.0 Nucleated Red Blood Cells # 0.0 Prothrombin Time 33.8 H Prothrombin Time Ratio 2.6 INR International Normalized Ratio 3.33 Sodium Level 138 Potassium Level 3.2 L Chloride Level 101 Carbon Dioxide Level 32 H Anion Gap 5 Blood Urea Nitrogen 22 H Creatinine 0.61 Est Glomerular Filtrat Rate mL/min > 60 Glucose Level 102 Calcium Level 8.6 Phosphorus Level 3.8 Magnesium Level 1.7 Exam/Review of Systems Exam Vitals Vital Signs Date Temp Pulse Resp B/P (MAP) Pulse Ox O2 O2 Flow FiO2 Time Delivery Rate 07/14/18 74 12:59 07/14/18 97.7 18 115/56 96 Room Air 11:34 (75) Intake and Output 07/13/18 07/13/18 07/14/18 1515:00 23:00 07:00 IntakeIntake Total 600 ml 400 ml OutputOutput Total 2800 ml 1100 ml BalanceBalance -2200 ml -700 ml Constitutional: alert, oriented Respiratory: clear to auscultation Cardiovascular: irregular rhythm Gastrointestinal: soft, non-tender Genitourinary - Female: other (Mensah) Extremities: normal pulses Neurological: nl mental status Skin: nl turgor Results Results 24hrs Laboratory Tests Test 07/14/18 06:04 White Blood Count 5.0 Red Blood Count 3.05 #L Hemoglobin 9.6 L Hematocrit 30.1 L Mean Corpuscular Volume 98.7 Mean Corpuscular Hemoglobin 31.5 Mean Corpuscular Hemoglobin Concent 31.9 L Red Cell Distribution Width 17.2 H Platelet Count 169 Mean Platelet Volume 9.5 Immature Granulocytes % 1.000 H Neutrophils % 64.7 Lymphocytes % 25.6 Monocytes % 7.1 Eosinophils % 1.2 Basophils % 0.4 Nucleated Red Blood Cells % 0.0 Immature Granulocytes # 0.050 H Neutrophils # 3.3 Lymphocytes # 1.3 Monocytes # 0.4 Eosinophils # 0.1 Basophils # 0.0 Nucleated Red Blood Cells # 0.0 Prothrombin Time 33.8 H Prothrombin Time Ratio 2.6 INR International Normalized Ratio 3.33 Sodium Level 138 Potassium Level 3.2 L Chloride Level 101 Carbon Dioxide Level 32 H Anion Gap 5 Blood Urea Nitrogen 22 H Creatinine 0.61 Est Glomerular Filtrat Rate mL/min > 60 Glucose Level 102 Calcium Level 8.6 Phosphorus Level 3.8 Magnesium Level 1.7 Medications Medication Current Medications Levothyroxine Sodium (Synthroid) 50 mcg BEFORE BREAKFAST PO Last administered on 07/14/18 06:34; Admin Dose 50 MCG; Start 05/30/18 at 07:00 Mometasone Furoate (Asmanex) 1 puff DAILY INH Last administered on 07/14/18 10:09; Admin Dose 1 PUFF; Start 05/29/18 at 11:00 Atorvastatin Calcium (Lipitor) 10 mg DAILY@21 PO Last administered on 07/13/18 21:14; Admin Dose 10 MG; Start 05/29/18 at 21:00 Latanoprost (Xalatan) 1 drop HS BOTH EYES Last administered on 07/13/18 21:16; Admin Dose 1 DROP; Start 06/01/18 at 21:00 Amlodipine Besylate (Norvasc) 5 mg DAILY PO ; Start 06/03/18 at 09:00; Status Hold Pantoprazole (Protonix Tab) 40 mg DAILY@06 PO Last administered on 07/14/18 06:34; Admin Dose 40 MG; Start 06/05/18 at 06:00 Metoclopramide HCl (Reglan) 5 mg TID PRN IV Nausea; Start 06/06/18 at 11:00 Polyethylene Glycol (Miralax) 17 gm BID PRN PO CONSTIPATION; Start 06/06/18 at 14:00 Bisacodyl (Dulcolax Supp) 10 mg DAILY PRN [place] CONSTIPATION; Start 06/06/18 at 14:00 IV Flush (NS 10 ml) 10 ml PRN PRN IV IV PROTOCOL; Start 06/06/18 at 16:00 Nystatin (Nystatin Susp) 5 ml QID PO Last administered on 07/14/18 10:09; Admin Dose 5 ML; Start 06/06/18 at 17:00 Metoprolol Tartrate (Lopressor) 25 mg BID PO Last administered on 07/14/18 10:09; Admin Dose 25 MG; Start 06/13/18 at 21:00 Metoprolol Tartrate (Lopressor) 5 mg Q4H PRN IV HR>110 Hold SBP<100; Start 06/13/18 at 10:30 Morphine Sulfate (morphine) 6 mg Q2H PRN PO FOR NON CARDIAC PAIN (4-10); Start 06/13/18 at 11:30 Docusate Sodium (Colace) 100 mg DAILY PRN PO CONSTIPATION; Start 06/21/18 at 12:00 Miscellaneous Information (Pending Santyl Order For Wound Care) This patient gomes... PRN PRN XX WOUND CARE; Start 06/21/18 at 16:00 Amiodarone HCl (Cordarone) 200 mg BID PO Last administered on 07/14/18 10:08; Admin Dose 200 MG; Start 06/22/18 at 21:00 Ferrous Sulfate (Ferrous Sulfate (Ec)) 325 mg BID PO Last administered on 07/14/18 10:09; Admin Dose 325 MG; Start 07/09/18 at 09:30 Docusate Sodium (Colace) 100 mg DAILY PO Last administered on 07/14/18 10:08; Admin Dose 100 MG; Start 07/10/18 at 09:00 Warfarin Sodium (Coumadin) 5 mg DAILY@17 PO Last administered on 07/12/18at 16:24; Admin Dose 5 MG; Start 07/12/18 at 17:00; Status Hold Bumetanide (Bumex) 1 mg BID PO Last administered on 07/14/18 10:08; Admin Dose 1 MG; Start 07/13/18 at 09:00 Miscellaneous Information (*Order Clarification Bulletin) PLEASE CLARIFY WITH . Q8H XX ; Start 07/13/18 at 11:00 KRISTY MCCULLOUGH Jul 14, 2018 14:36
--- NOTE | 2018-07-14 17:48 | CONS ---
Assessment/Plan Assessment/Plan Hospital Course (Demo Recall) IMP: 1.cad s/p LHC with no sig obstructive cad. Mildly depressed LVEF--40-45% ? nonischemic process 2.HTN 3.RP Bleed s/p transfusions now stable and tolerating heparin/coumadin loading. Then had recurrent bled overnight now s/p covered stent to OUTSIDE SALES REPRESENTATIVE/Ext iliac. Stable collection by abd CT 06/06 but still with pigtail catheter in place 4.HL 5.MVR-mechanical 6.anemia- s/p repair of R OUTSIDE SALES REPRESENTATIVE/illiac. Had hemoptysis with subsequent drop in Hgb again and holding of heparin. Had some mild blood tinged sputum 7.Hypothyroid 8. GOMES-negative Head CT 9. Fevers-with positive ua 10. UTI-recurrent by u/a 06/29 11.ARF-? 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 Coagulopathy-now supratherapeutic again 14. LE weakness-? compression from hematoma and exacerbated by femoral compression after cath-now resolved 15. 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 PAF/AFL-rate controlled 17. 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 Now decreasing hematuria 18. Epistaxis-improved 19. anemia-stable overall with possible mild downtrend today Recc: -Now on tele -Continue BB with well controlled Hr's -Continue statin -s/p course of abx's -ongoing ID f/u -F/U electric tripper machine operator/K closely with creatnine now normalized and volume status improved. -Follow HGb closely which has been stable to improved actually -PT/ambulation- doing 3x/day -Follow volume status closely now off of bumex -will continue amio bid for now and follow rhythm clsoely as has now consverted to SR/SB -Urology following with findings of apparent bladder fistula and thus draining of the hematoma through the bladder causing hematuria. Per urology thus ok to co ntinue coumadin. Follow hematuria for resolution and assess need for spontaneous closure versus need for repair discussed with urology with hematuria slowly decreasing. -Hold coumadin and follow inr closely -Continue current bumex now BID PO with improved volume status Consultation Date/Type/Reason Admit Date/Time May 28, 2018 at 17:52 Initial Consult Date 05/28/18 Type of Consult Cardiology Reason for Consultation MVR Requesting Provider: JULY VALENTIN MD Date/Time of Note DATE: 07/14/18 TIME: 17:45 Exam/Review of Systems Vital Signs Vitals Vital Signs Date Temp Pulse Resp B/P (MAP) Pulse Ox O2 O2 Flow FiO2 Time Delivery Rate 07/14/18 99 16:40 07/14/18 98.3 18 133/63 97 Room Air 15:10 (86) Intake and Output 07/13/18 07/13/18 07/14/18 1515:00 23:00 07:00 IntakeIntake Total 600 ml 400 ml OutputOutput Total 2800 ml 1100 ml BalanceBalance -2200 ml -700 ml Exam Exam Review of Systems: CONSTITUTIONAL: No fevers, chills. PULMONARY: No sob CARDIOVASCULAR: No chest pain/palpitations GASTROINTESTINAL: No nausea/vomiting. GENITOURINARY: No hematuria/dysuria. MUSCULOSKELETAL: No myagias/arthalgias. PSYCHIATRIC: The patient denies depression. NEUROLOGIC: No weakness Constitutional: alert, oriented Psych: no complaints Head: normocephalic ENMT: mucosa pink and moist Neck: supple, jvd (9 cm water) Respiratory: diminished breath sounds Cardiovascular: regular rate and rhythm Gastrointestinal: soft, non-tender Musculoskeletal: muscle tone (normal) Extremities: edema (none) Neurological: other (No focal deficits) Labs Result Diagram: 07/14/18 0604 07/14/18 0604 Results 24hrs Laboratory Tests Test 07/14/18 06:04 White Blood Count 5.0 Red Blood Count 3.05 #L Hemoglobin 9.6 L Hematocrit 30.1 L Mean Corpuscular Volume 98.7 Mean Corpuscular Hemoglobin 31.5 Mean Corpuscular Hemoglobin Concent 31.9 L Red Cell Distribution Width 17.2 H Platelet Count 169 Mean Platelet Volume 9.5 Immature Granulocytes % 1.000 H Neutrophils % 64.7 Lymphocytes % 25.6 Monocytes % 7.1 Eosinophils % 1.2 Basophils % 0.4 Nucleated Red Blood Cells % 0.0 Immature Granulocytes # 0.050 H Neutrophils # 3.3 Lymphocytes # 1.3 Monocytes # 0.4 Eosinophils # 0.1 Basophils # 0.0 Nucleated Red Blood Cells # 0.0 Prothrombin Time 33.8 H Prothrombin Time Ratio 2.6 INR International Normalized Ratio 3.33 Sodium Level 138 Potassium Level 3.2 L Chloride Level 101 Carbon Dioxide Level 32 H Anion Gap 5 Blood Urea Nitrogen 22 H Creatinine 0.61 Est Glomerular Filtrat Rate mL/min > 60 Glucose Level 102 Calcium Level 8.6 Phosphorus Level 3.8 Magnesium Level 1.7 Medications Medications Current Medications Levothyroxine Sodium (Synthroid) 50 mcg BEFORE BREAKFAST PO Last administered on 07/14/18 06:34; Admin Dose 50 MCG; Start 05/30/18 at 07:00 Mometasone Furoate (Asmanex) 1 puff DAILY INH Last administered on 07/14/18 10:09; Admin Dose 1 PUFF; Start 05/29/18 at 11:00 Atorvastatin Calcium (Lipitor) 10 mg DAILY@21 PO Last administered on 07/13/18 21:14; Admin Dose 10 MG; Start 05/29/18 at 21:00 Latanoprost (Xalatan) 1 drop HS BOTH EYES Last administered on 07/13/18 21:16; Admin Dose 1 DROP; Start 06/01/18 at 21:00 Amlodipine Besylate (Norvasc) 5 mg DAILY PO ; Start 06/03/18 at 09:00; Status Hold Pantoprazole (Protonix Tab) 40 mg DAILY@06 PO Last administered on 07/14/18 06:34; Admin Dose 40 MG; Start 06/05/18 at 06:00 Metoclopramide HCl (Reglan) 5 mg TID PRN IV Nausea; Start 06/06/18 at 11:00 Polyethylene Glycol (Miralax) 17 gm BID PRN PO CONSTIPATION; Start 06/06/18 at 14:00 Bisacodyl (Dulcolax Supp) 10 mg DAILY PRN [place] CONSTIPATION; Start 06/06/18 at 14:00 IV Flush (NS 10 ml) 10 ml PRN PRN IV IV PROTOCOL; Start 06/06/18 at 16:00 Nystatin (Nystatin Susp) 5 ml QID PO Last administered on 07/14/18 17:18; Admin Dose 5 ML; Start 06/06/18 at 17:00 Metoprolol Tartrate (Lopressor) 25 mg BID PO Last administered on 07/14/18 10:09; Admin Dose 25 MG; Start 06/13/18 at 21:00 Metoprolol Tartrate (Lopressor) 5 mg Q4H PRN IV HR>110 Hold SBP<100; Start 06/13/18 at 10:30 Morphine Sulfate (morphine) 6 mg Q2H PRN PO FOR NON CARDIAC PAIN (4-10); Start 06/13/18 at 11:30 Docusate Sodium (Colace) 100 mg DAILY PRN PO CONSTIPATION; Start 06/21/18 at 12:00 Miscellaneous Information (Pending Santyl Order For Wound Care) This patient gomes... PRN PRN XX WOUND CARE; Start 06/21/18 at 16:00 Amiodarone HCl (Cordarone) 200 mg BID PO Last administered on 07/14/18 10:08; Admin Dose 200 MG; Start 06/22/18 at 21:00 Ferrous Sulfate (Ferrous Sulfate (Ec)) 325 mg BID PO Last administered on 07/14/18 10:09; Admin Dose 325 MG; Start 07/09/18 at 09:30 Docusate Sodium (Colace) 100 mg DAILY PO Last administered on 07/14/18 10:08; Admin Dose 100 MG; Start 07/10/18 at 09:00 Warfarin Sodium (Coumadin) 5 mg DAILY@17 PO Last administered on 07/12/18 16:24; Admin Dose 5 MG; Start 07/12/18 at 17:00; Status Hold Bumetanide (Bumex) 1 mg BID PO Last administered on 07/14/18 10:08; Admin Dose 1 MG; Start 07/13/18 at 09:00 Miscellaneous Information (*Order Clarification Bulletin) PLEASE CLARIFY WITH Q8H XX ; Start 07/13/18 at 11:00 CHRIS LAZAR Jul 14, 2018 17:48
[2018-07-14] MEDS ORDERED: ACETAMINOPHEN 325 MG TAB PO PRN (21:00)
[2018-07-14] MEDS: ATORVASTATIN 10 MG TAB PO SCH (21:05)
[2018-07-14] MEDS: LATANOPROST 0.005% 2.5 ML OPH BOTH EYES SCH (23:14)
[2018-07-15] VITALS (13 sets, daily range): BP systolic 106–127; BP diastolic 51–65; PULSE 79–121; RESP 18
[2018-07-15] MEDS: LEVOTHYROXINE 50 MCG TAB PO SCH (06:05)
[2018-07-15] MEDS: PANTOPRAZOLE (EC) 40 MG TAB PO SCH (06:05)
[2018-07-15] MEDS ORDERED: POTASSIUM CHLORIDE (SR) 20 MEQ TAB PO STA (08:01)
--- NOTE | 2018-07-15 08:37 | PN ---
DATE: 07/15/2018 SUBJECTIVE: The patient is stable, no events overnight. OBJECTIVE: VITAL SIGNS: Blood pressure is 114/65, pulse 91, respiration 18, temperature 97.8. HEENT: Head is normocephalic. NECK: Supple. HEART: Regular rate. LUNGS: Show diminished breath sounds at the base. ABDOMEN: Soft, nontender to palpation without rebound or guarding. EXTREMITIES: Negative for clubbing, cyanosis. Positive edema. DERMATOLOGIC: No rashes. MUSCULOSKELETAL: No joint effusion. NEUROLOGIC: No change in exam. MEDICATIONS: The patient's medications have been reviewed. LABORATORY DATA: Laboratory data from 07/15/2018 was reviewed. ASSESSMENT AND PLAN: 1. Nonoliguric acute kidney injury with previously normal baseline creatinine. Etiology of FORREST is s econdary to acute tubular necrosis. Renal function is improved. Continue current treatment plan, concepcion pportive care and renally dose all meds, monitor closely on diuretic therapy. 2. 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 The patient's hematuria has been improving. Continue to monitor. 3. Volume overload. The patient is clinically improving. Will deescalate diuretic therapy, monitor renal function, electrolytes closely. 4. Hypokalemia. We will replete with potassium chloride. 5. Anemia. Monitor hemoglobin and hematocrit levels. 6. Mechanical heart valve. Continue anticoagulation per cardiology. 7. Sepsis secondary to urinary tract infection. The patient is to continue the antibiotic course. 8. Hypothyroidism. Continue Synthroid. 9. Dyslipidemia. Continue statin therapy. 10. Hypertension. Continue current blood pressure regimen. 11. Urinary tract infection. 12. Liver cirrhosis. Continue medical management. 13. Intraabdominal hematoma. Dictated By: GWYN FABIAN DO NR/NTS Conf#: [id number] DID#: [id number] CC: JOAQUIN DE LEON MD; CHRIS LAZAR MD; JULY VALENTIN MD;*End*
[2018-07-15] MEDS: BUMETANIDE 1 MG TAB PO SCH (09:59)
[2018-07-15] MEDS: FERROUS SULFATE (EC) 325 MG TAB PO SCH ×2 (10:00→20:45)
[2018-07-15] MEDS: METOPROLOL 25 MG TAB PO SCH (10:00)
[2018-07-15] MEDS: DOCUSATE SODIUM 100 MG CAP PO SCH (10:00)
[2018-07-15] MEDS: AMIODARONE 200 MG TAB PO SCH ×2 (10:00→20:46)
[2018-07-15] MEDS: NYSTATIN SUSP 5 ML CUP PO SCH ×4 (10:01→20:45)
[2018-07-15] MEDS: MOMETASONE 0.24 GM INHALER INH SCH (10:01)
[2018-07-15] MEDS ORDERED: SOD CHLORIDE 0.9% 500 ML ONE (10:30)
[2018-07-15] MEDS ORDERED: IOHEXOL 300MG/ML 30 ML BTL ONE (10:30)
[2018-07-15] MEDS: PIPER-TAZO 3.375 GM IV (PMX) 100 ML IVPB SCH ×3 (12:26→23:51)
--- NOTE | 2018-07-15 13:30 | PN ---
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 Continue [place], monitor. Dr. Ashford is following in urology consultation. -Anemia of acute blood loss, transfuse PRN, monitor H&H. -S/p UTI, completed treatment with Zosyn. Dr. Castellanos is following in infection disease consultation. 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 -S/p Nose/oropharyngeal bleed on 06/11/2018, stopped after heparin was held. -Retroperitoneal bleed secondary to vascular injury status post stent placement. S/p CT guided placement of drainage catheter into pelvic hematoma on 06/05/18 and sequent removal. -Status post left heart catheterization with no significant obstructive coronary artery disease by Dr. Moreno on 05/27/2018. -Anemia of acute blood loss, status post blood transfusion, continue to monitor hemoglobin and hematocrit. -Urinary incontinence. -Acute illness myopathy -Status post mitral valve replacement with mechanical valve in [address] [facility]. Continue Coumadin, monitor PT/INR. -HTN, continue metoprolol -Hyperlipidemia -Hypothyroidism, continue levothyroxine -History of asthma Further recommendations based on clinical course. Plan of care discussed with Dr. Painter. Result Diagram: 07/15/1853207/15/1833 Results 24hrs Laboratory Tests Test 07/15/18 05:33 White Blood Count 4.6 L Red Blood Count 2.98 L Hemoglobin 9.6 L Hematocrit 29.1 L Mean Corpuscular Volume 97.7 Mean Corpuscular Hemoglobin 32.2 Mean Corpuscular Hemoglobin Concent 33.0 Red Cell Distribution Width 17.3 H Platelet Count 177 Mean Platelet Volume 9.4 Immature Granulocytes % 0.700 H Neutrophils % 52.2 Lymphocytes % 34.9 Monocytes % 9.7 Eosinophils % 1.8 Basophils % 0.7 Nucleated Red Blood Cells % 0.0 Immature Granulocytes # 0.030 Neutrophils # 2.4 Lymphocytes # 1.6 Monocytes # 0.4 Eosinophils # 0.1 Basophils # 0.0 Nucleated Red Blood Cells # 0.0 Prothrombin Time 25.2 #H Prothrombin Time Ratio 2.0 INR International Normalized Ratio 2.28 Sodium Level 138 Potassium Level 3.3 L Chloride Level 98 Carbon Dioxide Level 35 H Anion Gap 5 Blood Urea Nitrogen 21 H Creatinine 0.69 Est Glomerular Filtrat Rate mL/min > 60 Glucose Level 100 Calcium Level 8.5 Phosphorus Level 3.8 Magnesium Level 1.7 Subjective 24 Hr Interval Summary Free Text/Dictation sitting up in bed; feels better; afebrile febrile last night ; ID was informed; started on ZOsyn cont to monitor. dw staff Constitutional: improved, requiring O2 Eyes: no complaints ENT: no complaints Respiratory: no complaints Cardiovascular: no complaints Gastrointestinal: no complaints Genitourinary: hematuria (resolving) Musculoskeletal: no complaints Skin: no complaints Neurologic: no complaints Endocrine: no complaints Psychological: nl mood/affect Immunologic: no complaints Exam/Review of Systems Exam Vitals Vital Signs Date Temp Pulse Resp B/P (MAP) Pulse Ox O2 O2 Flow FiO2 Time Delivery Rate 07/15/18 85 12:16 07/15/18 98.0 18 120/57 97 11:40 (78) 07/15/18 Room Air 07:25 Intake and Output 07/14/18 07/14/18 07/15/18 1515:00 23:00 07:00 IntakeIntake Total 860 ml 600 ml OutputOutput Total 950 ml 1100 ml BalanceBalance -90 ml -500 ml Constitutional: alert, well developed Psych: nl mood/affect Head: normocephalic Eyes: nl lids, nl sclera ENMT: nl external ears & nose Neck: non-tender Respiratory: clear to auscultation Cardiovascular: nl pulses, other (s1s2) Gastrointestinal: soft, non-tender Genitourinary - Female: other (hematuria- resolving) Musculoskeletal: muscle weakness Extremities: normal pulses Neurological: nl mental status, nl speech Lymph: nontender Results Results 24hrs Laboratory Tests Test 07/15/18 05:33 White Blood Count 4.6 L Red Blood Count 2.98 L Hemoglobin 9.6 L Hematocrit 29.1 L Mean Corpuscular Volume 97.7 Mean Corpuscular Hemoglobin 32.2 Mean Corpuscular Hemoglobin Concent 33.0 Red Cell Distribution Width 17.3 H Platelet Count 177 Mean Platelet Volume 9.4 Immature Granulocytes % 0.700 H Neutrophils % 52.2 Lymphocytes % 34.9 Monocytes % 9.7 Eosinophils % 1.8 Basophils % 0.7 Nucleated Red Blood Cells % 0.0 Immature Granulocytes # 0.030 Neutrophils # 2.4 Lymphocytes # 1.6 Monocytes # 0.4 Eosinophils # 0.1 Basophils # 0.0 Nucleated Red Blood Cells # 0.0 Prothrombin Time 25.2 #H Prothrombin Time Ratio 2.0 INR International Normalized Ratio 2.28 Sodium Level 138 Potassium Level 3.3 L Chloride Level 98 Carbon Dioxide Level 35 H Anion Gap 5 Blood Urea Nitrogen 21 H Creatinine 0.69 Est Glomerular Filtrat Rate mL/min > 60 Glucose Level 100 Calcium Level 8.5 Phosphorus Level 3.8 Magnesium Level 1.7 Medications Medication Current Medications Levothyroxine Sodium (Synthroid) 50 mcg BEFORE BREAKFAST PO Last administered on 07/15/18 06:05; Admin Dose 50 MCG; Start 05/30/18 at 07:00 Mometasone Furoate (Asmanex) 1 puff DAILY INH Last administered on 07/15/18 10:01; Admin Dose 1 PUFF; Start 05/29/18 at 11:00 Atorvastatin Calcium (Lipitor) 10 mg DAILY@21 PO Last administered on 07/14/18 21:05; Admin Dose 10 MG; Start 05/29/18 at 21:00 Latanoprost (Xalatan) 1 drop HS BOTH EYES Last administered on 07/14/18 23:14; Admin Dose 1 DROP; Start 06/01/18 at 21:00 Amlodipine Besylate (Norvasc) 5 mg DAILY PO ; Start 06/03/18 at 09:00; Status Hold Pantoprazole (Protonix Tab) 40 mg DAILY@06 PO Last administered on 07/15/18 06:05; Admin Dose 40 MG; Start 06/05/18 at 06:00 Metoclopramide HCl (Reglan) 5 mg TID PRN IV Nausea; Start 06/06/18 at 11:00 Polyethylene Glycol (Miralax) 17 gm BID PRN PO CONSTIPATION; Start 06/06/18 at 14:00 Bisacodyl (Dulcolax Supp) 10 mg DAILY PRN [place] CONSTIPATION; Start 06/06/18 at 14:00 IV Flush (NS 10 ml) 10 ml PRN PRN IV IV PROTOCOL; Start 06/06/18 at 16:00 Nystatin (Nystatin Susp) 5 ml QID PO Last administered on 07/15/18 12:26; Admin Dose 5 ML; Start 06/06/18 at 17:00 Metoprolol Tartrate (Lopressor) 25 mg BID PO Last administered on 07/15/18 10:00; Admin Dose 25 MG; Start 06/13/18 at 21:00 Docusate Sodium (Colace) 100 mg DAILY PRN PO CONSTIPATION; Start 06/21/18 at 12:00 Miscellaneous Information (Pending Santyl Order For Wound Care) This patient gomes... PRN PRN XX WOUND CARE; Start 06/21/18 at 16:00 Amiodarone HCl (Cordarone) 200 mg BID PO Last administered on 07/15/18 10:00; Admin Dose 200 MG; Start 06/22/18 at 21:00 Ferrous Sulfate (Ferrous Sulfate (Ec)) 325 mg BID PO Last administered on 10:00; Admin Dose 325 MG; Start 07/09/18 at 09:30 Docusate Sodium (Colace) 100 mg DAILY PO Last administered on 07/15/18 10:00; Admin Dose 100 MG; Start 07/10/18 at 09:00 Warfarin Sodium (Coumadin) 5 mg DAILY@17 PO Last administered on 07/12/18 16:24; Admin Dose 5 MG; Start 07/12/18 at 17:00; Status Hold Miscellaneous Information (*Order Clarification Bulletin) PLEASE CLARIFY WITH MD... Q8H XX ; Start 07/13/18 at 11:00 Acetaminophen (Tylenol Tab) 650 mg Q6H PRN PO MILD PAIN(1-3)OR ELEVATED TEMP Last administered on 07/14/18 21:04; Admin Dose 650 MG; Start 07/14/18 at 21:00 Bumetanide (Bumex) 1 mg DAILY PO Last administered on 07/15/18 09:59; Admin Dose 1 MG; Start 07/15/18 at 09:00 Piperacillin Sod/ Tazobactam Sod 100 ml @ 200 mls/hr Q6 IVPB Last administered on 07/15/18at 12:26; Admin Dose 200 MLS/HR; Start 07/15/18 at 10:30 DELICIA MATUTE Jul 15, 2018 13:30
--- NOTE | 2018-07-15 15:07 | CONS ---
Assessment/Plan Assessment/Plan Hospital Course (Demo Recall) IMP: 1.cad s/p LHC with no sig obstructive cad. Mildly depressed LVEF--40-45% ? nonischemic process 2.HTN 3.RP Bleed s/p transfusions now stable and tolerating heparin/coumadin loading. Then had recurrent bled overnight now s/p covered stent to BUTTER WRAPPER/Ext iliac. Stable collection by abd CT 06/06 but still with pigtail catheter in place 4.HL 5.MVR-mechanical 6.anemia- s/p repair of R BUTTER WRAPPER/illiac. Had hemoptysis with subsequent drop in Hgb again and holding of heparin. Had some mild blood tinged sputum 7.Hypothyroid 8. GOMES-negative Head CT 9. Fevers-with positive ua 10. UTI-recurrent by u/a 06/29 11.ARF-? 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 Coagulopathy-now supratherapeutic again 14. LE weakness-? compression from hematoma and exacerbated by femoral compression after cath-now resolved 15. arterial insuff- LLE- s/p RHIA/thrombolysis 06/04 successfully with palpable pulses/B DP/PT and remain that way 16. PAF/AFL-rate controlled 17. 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 Now decreasing hematuria 18. Epistaxis-improved 19. anemia-stable overall with possible mild downtrend today Recc: -Now on tele -Continue BB with well controlled Hr's -Continue statin -s/p course of abx's -ongoing ID f/u -F/U head bellhop captain/K closely with creatnine now normalized and volume status improved. -Follow HGb closely which has been stable to improved actually -PT/ambulation- doing 3x/day -will continue amio bid for now and follow rhythm clsoely as has now consverted to SR/SB -Urology following with findings of apparent bladder fistula and thus draining of the hematoma through the bladder causing hematuria. Per urology thus ok to continue coumadin. Follow hematuria for resolution and assess need for spontaneous closure versus need for repair discussed with urology with hematuria slowly decreasing. -Hold coumadin and follow inr closely -Continue current bumex now BID PO with improved volume status and will give extra IV dose given CXR findings Consultation Date/Type/Reason Admit Date/Time May 28, 2018 at 17:52 Initial Consult Date 05/28/18 Type of Consult Cardiology Reason for Consultation MVR Requesting Provider: JULY VALENTIN MD Date/Time of Note DATE: 07/15/18 TIME: 15:05 Exam/Review of Systems Vital Signs Vitals Vital Signs Date Temp Pulse Resp B/P (MAP) Pulse Ox O2 O2 Flow FiO2 Time Delivery Rate 07/15/18 98.0 106 18 106/55 95 Room Air 15:02 (72) Intake and Output 07/14/18 07/14/18 07/15/18 1515:00 23:00 07:00 IntakeIntake Total 860 ml 600 ml OutputOutput Total 950 ml 1100 ml BalanceBalance -90 ml -500 ml Exam Exam Review of Systems: CONSTITUTIONAL: No fevers, chills. PULMONARY: No sob CARDIOVASCULAR: No chest pain/palpitations GASTROINTESTINAL: No nausea/vomiting. GENITOURINARY: No hematuria/dysuria. MUSCULOSKELETAL: No myagias/arthalgias. PSYCHIATRIC: The patient denies depression. NEUROLOGIC: No weakness Constitutional: alert Psych: no complaints Head: normocephalic ENMT: mucosa pink and moist Neck: supple, jvd (9 cm water) Respiratory: clear to auscultation Cardiovascular: regular rate and rhythm Gastrointestinal: soft Musculoskeletal: muscle tone (normal) Extremities: edema (trace/B) Neurological: other (No focal deficits) Labs Result Diagram: 07/15/18 0533 07/15/18 0533 Results 24hrs Laboratory Tests Test 07/15/18 05:33 White Blood Count 4.6 L Red Blood Count 2.98 L Hemoglobin 9.6 L Hematocrit 29.1 L Mean Corpuscular Volume 97.7 Mean Corpuscular Hemoglobin 32.2 Mean Corpuscular Hemoglobin Concent 33.0 Red Cell Distribution Width 17.3 H Platelet Count 177 Mean Platelet Volume 9.4 Immature Granulocytes % 0.700 H Neutrophils % 52.2 Lymphocytes % 34.9 Monocytes % 9.7 Eosinophils % 1.8 Basophils % 0.7 Nucleated Red Blood Cells % 0.0 Immature Granulocytes # 0.030 Neutrophils # 2.4 Lymphocytes # 1.6 Monocytes # 0.4 Eosinophils # 0.1 Basophils # 0.0 Nucleated Red Blood Cells # 0.0 Prothrombin Time 25.2 #H Prothrombin Time Ratio 2.0 INR International Normalized Ratio 2.28 Sodium Level 138 Potassium Level 3.3 L Chloride Level 98 Carbon Dioxide Level 35 H Anion Gap 5 Blood Urea Nitrogen 21 H Creatinine 0.69 Est Glomerular Filtrat Rate mL/min > 60 Glucose Level 100 Calcium Level 8.5 Phosphorus Level 3.8 Magnesium Level 1.7 Medications Medications Current Medications Levothyroxine Sodium (Synthroid) 50 mcg BEFORE BREAKFAST PO Last administered on 07/15/18 06:05; Admin Dose 50 MCG; Start 05/30/18 at 07:00 Mometasone Furoate (Asmanex) 1 puff DAILY INH Last administered on 07/15/18 10:01; Admin Dose 1 PUFF; Start 05/29/18 at 11:00 Atorvastatin Calcium (Lipitor) 10 mg DAILY@21 PO Last administered on 07/14/18 21:05; Admin Dose 10 MG; Start 05/29/18 at 21:00 Latanoprost (Xalatan) 1 drop HS BOTH EYES Last administered on 07/14/18 23:14; Admin Dose 1 DROP; Start 06/01/18 at 21:00 Amlodipine Besylate (Norvasc) 5 mg DAILY PO ; Start 06/03/18 at 09:00; Status Hold Pantoprazole (Protonix Tab) 40 mg DAILY@06 PO Last administered on 07/15/18 06:05; Admin Dose 40 MG; Start 06/05/18 at 06:00 Metoclopramide HCl (Reglan) 5 mg TID PRN IV Nausea; Start 06/06/18 at 11:00 Polyethylene Glycol (Miralax) 17 gm BID PRN PO CONSTIPATION; Start 06/06/18 at 14:00 Bisacodyl (Dulcolax Supp) 10 mg DAILY PRN [place] CONSTIPATION; Start 06/06/18 at 14:00 IV Flush (NS 10 ml) 10 ml PRN PRN IV IV PROTOCOL; Start 06/06/18 at 16:00 Nystatin (Nystatin Susp) 5 ml QID PO Last administered on 07/15/18 12:26; Admin Dose 5 ML; Start 06/06/18 at 17:00 Metoprolol Tartrate (Lopressor) 25 mg BID PO Last administered on 07/15/18 10:00; Admin Dose 25 MG; Start 06/13/18 at 21:00 Docusate Sodium (Colace) 100 mg DAILY PRN PO CONSTIPATION; Start 06/21/18 at 12:00 Miscellaneous Information (Pending Santyl Order For Wound Care) This patient gomes... PRN PRN XX WOUND CARE; Start 06/21/18 at 16:00 Amiodarone HCl (Cordarone) 200 mg BID PO Last administered on 07/15/18 10:00; Admin Dose 200 MG; Start 06/22/18 at 21:00 Ferrous Sulfate (Ferrous Sulfate (Ec)) 325 mg BID PO Last administered on 07/15/18 10:00; Admin Dose 325 MG; Start 07/09/18 at 09:30 Docusate Sodium (Colace) 100 mg DAILY PO Last administered on 07/15/18 10:00; Admin Dose 100 MG; Start 07/10/18 at 09:00 Miscellaneous Information (*Order Clarification Bulletin) PLEASE CLARIFY WITH MD... Q8H XX ; Start 07/13/18 at 11:00 Acetaminophen (Tylenol Tab) 650 mg Q6H PRN PO MILD PAIN(1-3)OR ELEVATED TEMP Last administered on 07/14/18 21:04; Admin Dose 650 MG; Start 07/14/18 at 21:00 Bumetanide (Bumex) 1 mg DAILY PO Last administered on 07/15/18 09:59; Admin Dose 1 MG; Start 07/15/18 at 09:00 Piperacillin Sod/ Tazobactam Sod 100 ml @ 200 mls/hr Q6 IVPB Last administered on 07/15/18 12:26; Admin Dose 200 MLS/HR; Start 07/15/18 at 10:30 Warfarin Sodium (Coumadin) 5 mg DAILY@17 PO ; Start 07/15/18 at 17:00 CHRIS LAZAR Jul 15, 2018 15:07
[2018-07-15] MEDS ORDERED: BUMETANIDE 1 MG INJ IV ONE (15:30)
[2018-07-15] MEDS ORDERED: WARFARIN 5 MG TAB PO SCH (17:00)
[2018-07-15] MEDS: WARFARIN 3 MG TAB PO SCH (17:33)
--- NOTE | 2018-07-15 18:04 | CONS ---
Assessment/Plan Assessment/Plan Assessment/Plan (Daily) 1. 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 Globulin is also within normal limit -Neg hepatitis panel -Antimitochondrial antibody, anti-smooth muscle antibody negative, ceruplasmin wnl. 2. Coronary artery disease, nonobstructive, with ejection fraction of 40 to 45%, nonischemic. 3. Hypertension. 4. Retroperitoneal bleed. 5. Mitral valve replacement due to mechanical mitral valve. 6. Hypothyroidism. 7. Urinary tract infection. 8. Paroxysmal atrial fibrillation, rate is controlled. 9. Hematuria. 10. Status post rupture of the urinary bladder. 11. Epistaxis -resolved 12. Positive stool guaiac may be from epistaxis 13. Coagulopathy- pt on coumadin 14. Leukopenia 15. 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 Plan Monitor HH and for signs of GI bleeding Continue present care Consultation Date/Type/Reason Admit Date/Time May 28, 2018 at 17:52 Initial Consult Date 06/03/18 Requesting Provider: JULY VALENTIN MD Date/Time of Note DATE: 07/15/18 TIME: 18:02 24 HR Interval Summary Constitutional: no complaints Exam/Review of Systems Exam Vitals Vital Signs Date Temp Pulse Resp B/P (MAP) Pulse Ox O2 O2 Flow FiO2 Time Delivery Rate 07/15/18 83 16:12 07/15/18 98.0 18 106/55 95 Room Air 15:02 (72) Intake and Output 07/14/18 07/14/18 07/15/18 1515:00 23:00 07:00 IntakeIntake Total 860 ml 600 ml OutputOutput Total 950 ml 1100 ml BalanceBalance -90 ml -500 ml Constitutional: alert, oriented, well developed Psych: no complaints, nl mood/affect Head: normocephalic, atraumatic Eyes: nl conjunctiva, EOMI, nl lids, nl sclera, PERRL ENMT: nl external ears & nose, nl lips & teeth, nl nasal mucosa & septum Neck: supple, non-tender Respiratory: clear to auscultation, normal air movement Cardiovascular: regular rate and rhythm, nl pulses Gastrointestinal: soft, nl liver, spleen, non-tender Musculoskeletal: nl extremities to inspection, nl gait and stance Extremities: normal pulses Neurological: CELERY PACKER II-XII intact, nl mental status, nl speech, nl strength Skin: nl turgor; No rash or lesions Lymph: nl lymph nodes Results Result Diagram: 07/15/1833 07/15/18 0533 Results 24hrs Laboratory Tests Test 07/15/18 05:33 White Blood Count 4.6 L Red Blood Count 2.98 L Hemoglobin 9.6 L Hematocrit 29.1 L Mean Corpuscular Volume 97.7 Mean Corpuscular Hemoglobin 32.2 Mean Corpuscular Hemoglobin Concent 33.0 Red Cell Distribution Width 17.3 H Platelet Count 177 Mean Platelet Volume 9.4 Immature Granulocytes % 0.700 H Neutrophils % 52.2 Lymphocytes % 34.9 Monocytes % 9.7 Eosinophils % 1.8 Basophils % 0.7 Nucleated Red Blood Cells % 0.0 Immature Granulocytes # 0.030 Neutrophils # 2.4 Lymphocytes # 1.6 Monocytes # 0.4 Eosinophils # 0.1 Basophils # 0.0 Nucleated Red Blood Cells # 0.0 Prothrombin Time 25.2 #H Prothrombin Time Ratio 2.0 INR International Normalized Ratio 2.28 Sodium Level 138 Potassium Level 3.3 L Chloride Level 98 Carbon Dioxide Level 35 H Anion Gap 5 Blood Urea Nitrogen 21 H Creatinine 0.69 Est Glomerular Filtrat Rate mL/min > 60 Glucose Level 100 Calcium Level 8.5 Phosphorus Level 3.8 Magnesium Level 1.7 Medications Medication Current Medications Levothyroxine Sodium (Synthroid) 50 mcg BEFORE BREAKFAST PO Last administered on 07/15/18at 06:05; Admin Dose 50 MCG; Start 05/30/18 at 07:00 Mometasone Furoate (Asmanex) 1 puff DAILY INH Last administered on 07/15/18at 10:01; Admin Dose 1 PUFF; Start 05/29/18 at 11:00 Atorvastatin Calcium (Lipitor) 10 mg DAILY@21 PO Last administered on 07/14/18 21:05; Admin Dose 10 MG; Start 05/29/18 at 21:00 Latanoprost (Xalatan) 1 drop HS BOTH EYES Last administered on 07/14/18at 23:14; Admin Dose 1 DROP; Start 06/01/18 at 21:00 Amlodipine Besylate (Norvasc) 5 mg DAILY PO ; Start 06/03/18 at 09:00; Status Hold Pantoprazole (Protonix Tab) 40 mg DAILY@06 PO Last administered on 07/15/18 06:05; Admin Dose 40 MG; Start 06/05/18 at 06:00 Metoclopramide HCl (Reglan) 5 mg TID PRN IV Nausea; Start 06/06/18 at 11:00 Polyethylene Glycol (Miralax) 17 gm BID PRN PO CONSTIPATION; Start 06/06/18 at 14:00 Bisacodyl (Dulcolax Supp) 10 mg DAILY PRN [place] CONSTIPATION; Start 06/06/18 at 14:00 IV Flush (NS 10 ml) 10 ml PRN PRN IV IV PROTOCOL; Start 06/06/18 at 16:00 Nystatin (Nystatin Susp) 5 ml QID PO Last administered on 07/15/18at 17:36; Admin Dose 5 ML; Start 06/06/18 at 17:00 Metoprolol Tartrate (Lopressor) 25 mg BID PO Last administered on 07/15/18at 10:00; Admin Dose 25 MG; Start 06/13/18 at 21:00 Docusate Sodium (Colace) 100 mg DAILY PRN PO CONSTIPATION; Start 06/21/18 at 12:00 Miscellaneous Information (Pending [facility] Order For Wound Care) This patient gomes. .. PRN PRN XX WOUND CARE; Start 06/21/18 at 16:00 Amiodarone HCl (Cordarone) 200 mg BID PO Last administered on 07/15/18 10:00; Admin Dose 200 MG; Start 06/22/18 at 21:00 Ferrous Sulfate (Ferrous Sulfate (Ec)) 325 mg BID PO Last administered on 07/15/18at 10:00; Admin Dose 325 MG; Start 07/09/18 at 09:30 Docusate Sodium (Colace) 100 mg DAILY PO Last administered on 07/15/18 10:00; Admin Dose 100 MG; Start 07/10/18 at 09:00 Miscellaneous Information (*Order Clarification Bulletin) PLEASE CLARIFY WITH MD... Q8H XX ; Start 07/13/18 at 11:00 Acetaminophen (Tylenol Tab) 650 mg Q6H PRN PO MILD PAIN(1-3)OR ELEVATED TEMP Last administered on 07/14/18at 21:04; Admin Dose 650 MG; Start 07/14/18 at 21:00 Bumetanide (Bumex) 1 mg DAILY PO Last administered on 07/15/18at 09:59; Admin Dose 1 MG; Start 07/15/18 at 09:00 Piperacillin Sod/ Tazobactam Sod 100 ml @ 200 mls/hr Q6 IVPB Last administered on 07/15/18at 17:39; Admin Dose 200 MLS/HR; Start 07/15/18 at 10:30 Warfarin Sodium (Coumadin) 6 mg DAILY@17 PO Last administered on 07/15/18at 17:33; Admin Dose 6 MG; Start 07/15/18 at 17:00 ALEXANDRU CHAPIN MD Jul 15, 2018 18:04
--- NOTE | 2018-07-15 20:10 | CONS ---
Assessment/Plan Assessment/Plan Hospital Course (Demo Recall) # sepsis, cardiopulmonary - s/p severe sepsis due to UTI, resolved - s/p SIRS due to acute blood loss, resolved - s/p L heart catheterization on 05/27/2018 showing no significant obstructive CAD - CAD - s/p CABG in [place] in 1982 - H/o MVR with mechanical valve, in 1999 - Hypertension - PAF - Asthma # urology/renal, GI - possibly recurrent UTI - hematuria caused by ruptured urinary bladder - Mensah was exchanged on 07/12/2018 and 07/14/2018 because her older catheter was leaking - CT pel on 07/15/2018 showed fluid and air collection anterior to the urinary bladder 13 x 10 x 6 cm, unchanged from the previous study of 07/02/2018; 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 - s/p UTI due to hafnai alvei and pediococci on 06/30/18. Pt completed pip/tazo (07/02/18-07/05/2018) - S/p UTI due to E. coli. 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 Ashford's recommendation re. fistula - management d/w Pt, her , son, RN for daytime and evening time the total time I took to care for this Pt today was from 1930 to 2009 Consultation Date/Type/Reason Admit Date/Time May 28, 2018 at 17:52 Initial Consult Date 06/03/18 Type of Consult ID Reason for Consultation UTI Requesting Provider: JULY VALENTIN MD Date/Time of Note DATE: 07/15/18 TIME: 20:03 24 HR Interval Summary Constitutional: febrile (had temp 100.3F last night) Detailed Summary Eyes: no complaints ENT: no complaints Respiratory: no complaints Cardiovascular: no complaints Gastrointestinal: no complaints Genitourinary: hematuria, other (FC, bilateral groin had a "pulling sensation" no leakage from the Mensah catheter); No discharge Musculoskeletal: no complaints, other (walked); No restricted range of motion Skin: No pruritis Neurologic: no complaints Exam/Review of Systems Exam Vitals Vital Signs Date Temp Pulse Resp B/P (MAP) Pulse Ox O2 O2 Flow FiO2 Time Delivery Rate 07/15/18 83 16:12 07/15/18 98.0 18 106/55 95 Room Air 15:02 (72) Intake and Output 07/14/18 07/14/18 07/15/18 1515:00 23:00 07:00 IntakeIntake Total 860 ml 600 ml OutputOutput Total 950 ml 1100 ml BalanceBalance -90 ml -500 ml Constitutional: alert, oriented, well developed Psych: no complaints, nl mood/affect Head: normocephalic, atraumatic Eyes: nl conjunctiva, nl lids, nl sclera ENMT: nl external ears & nose, nl nasal mucosa & septum, mucosa pink and moist Neck: supple, non-tender Respiratory: clear to auscultation, normal air movement Cardiovascular: regular rate and rhythm, nl pulses; No edema Gastrointestinal: soft, non-tender Genitourinary - Female: other (FC, +supra-pubic area non-TTP) Extremities: No edema Neurological: [employer] ASSISTANT II-XII intact, nl mental status, nl speech, nl strength Skin: nl turgor Results Result Diagram: 07/15/1833 07/15/18 0533 Results 24hrs Laboratory Tests Test 07/15/18 05:33 07/15/18 10:40 White Blood Count 4.6 L Red Blood Count 2.98 L Hemoglobin 9.6 L Hematocrit 29.1 L Mean Corpuscular Volume 97.7 Mean Corpuscular Hemoglobin 32.2 Mean Corpuscular Hemoglobin Concent 33.0 Red Cell Distribution Width 17.3 H Platelet Count 177 Mean Platelet Volume 9.4 Immature Granulocytes % 0.700 H Neutrophils % 52.2 Lymphocytes % 34.9 Monocytes % 9.7 Eosinophils % 1.8 Basophils % 0.7 Nucleated Red Blood Cells % 0.0 Immature Granulocytes # 0.030 Neutrophils # 2.4 Lymphocytes # 1.6 Monocytes # 0.4 Eosinophils # 0.1 Basophils # 0.0 Nucleated Red Blood Cells # 0.0 Prothrombin Time 25.2 #H Prothrombin Time Ratio 2.0 INR International Normalized Ratio 2.28 Sodium Level 138 Potassium Level 3.3 L Chloride Level 98 Carbon Dioxide Level 35 H Anion Gap 5 Blood Urea Nitrogen 21 H Creatinine 0.69 Est Glomerular Filtrat Rate mL/min > 60 Glucose Level 100 Calcium Level 8.5 Phosphorus Level 3.8 Magnesium Level 1.7 Urine Color YELLOW Urine Clarity TURBID A Urine pH 6.0 Urine Specific [place] 1.015 Urine Ketones NEGATIVE Urine Nitrite NEGATIVE Urine Bilirubin NEGATIVE Urine Urobilinogen NEGATIVE Urine Leukocyte Esterase 2+ H Urine Microscopic RBC 65 H Urine Microscopic WBC > 182 H Urine Squamous Epithelial Cells FEW Urine Bacteria FEW A Urine Mucus FEW A Urine Hemoglobin 3+ H Urine Glucose NEGATIVE Urine Total Protein 2+ H Medications Medication Current Medications Levothyroxine Sodium (Synthroid) 50 mcg BEFORE BREAKFAST PO Last administered on 07/15/18 06:05; Admin Dose 50 MCG; Start 05/30/18 at 07:00 Mometasone Furoate (Asmanex) 1 puff DAILY INH Last administered on 07/15/18at 10:01; Admin Dose 1 PUFF; Start 05/29/18 at 11:00 Atorvastatin Calcium (Lipitor) 10 mg DAILY@21 PO Last administered on 07/14/18 21:05; Admin Dose 10 MG; Start 05/29/18 at 21:00 Latanoprost (Xalatan) 1 drop HS BOTH EYES Last administered on 07/14/18at 23:14; Admin Dose 1 DROP; Start 06/01/18 at 21:00 Amlodipine Besylate (Norvasc) 5 mg DAILY PO ; Start 06/03/18 at 09:00; Status Hold Pantoprazole (Protonix Tab) 40 mg DAILY@06 PO Last administered on 07/15/18 06:05; Admin Dose 40 MG; Start 06/05/18 at 06:00 Metoclopramide HCl (Reglan) 5 mg TID PRN IV Nausea; Start 06/06/18 at 11:00 Polyethylene Glycol (Miralax) 17 gm BID PRN PO CONSTIPATION; Start 06/06/18 at 14:00 Bisacodyl (Dulcolax Supp) 10 mg DAILY PRN MD CONSTIPATION; Start 06/06/18 at 14:00 IV Flush (NS 10 ml) 10 ml PRN PRN IV IV PROTOCOL; Start 06/06/18 at 16:00 Nystatin (Nystatin Susp) 5 ml QID PO Last administered on 07/15/18 17:36; Admin Dose 5 ML; Start 06/06/18 at 17:00 Metoprolol Tartrate (Lopressor) 25 mg BID PO Last administered on 07/15/18 10: 00; Admin Dose 25 MG; Start 06/13/18 at 21:00 Docusate Sodium (Colace) 100 mg DAILY PRN PO CONSTIPATION; Start 06/21/18 at 12:00 Miscellaneous Information (Pending [facility] Order For Wound Care) This patient gomes... PRN PRN XX WOUND CARE; Start 06/21/18 at 16:00 Amiodarone HCl (Cordarone) 200 mg BID PO Last administered on 07/15/18 10:00; Admin Dose 200 MG; Start 06/22/18 at 21:00 Ferrous Sulfate (Ferrous Sulfate (Ec)) 325 mg BID PO Last administered on 07/15/18 10:00; Admin Dose 325 MG; Start 07/09/18 at 09:30 Docusate Sodium (Colace) 100 mg DAILY PO Last administered on 07/15/18 10:00; Admin Dose 100 MG; Start 07/10/18 at 09:00 Miscellaneous Information (*Order Clarification Bulletin) PLEASE CLARIFY WITH ... Q8H XX ; Start 07/13/18 at 11:00 Acetaminophen (Tylenol Tab) 650 mg Q6H PRN PO MILD PAIN(1-3)OR ELEVATED TEMP Last administered on 4/4/19at 21:04; Admin Dose 650 MG; Start 07/14/18 at 21:00 Bumetanide (Bumex) 1 mg DAILY PO Last administered on 07/15/18at 09:59; Admin Dose 1 MG; Start 07/15/18 at 09:00 Piperacillin Sod/ Tazobactam Sod 100 ml @ 200 mls/hr Q6 IVPB Last administered on 07/15/18at 17:39; Admin Dose 200 MLS/HR; Start 07/15/18 at 10:30 Warfarin Sodium (Coumadin) 6 mg DAILY@17 PO Last administered on 07/15/18at 17:33; Admin Dose 6 MG; Start 07/15/18 at 17:00 SHARI CROWELL M.D. Jul 15, 2018 20:10
[2018-07-15] MEDS: ATORVASTATIN 10 MG TAB PO SCH (20:45)
[2018-07-15] MEDS: LATANOPROST 0.005% 2.5 ML OPH BOTH EYES SCH (20:56)
--- NOTE | 2018-07-15 21:11 | CONS ---
Consult Date/Type/Reason Admit Date/Time May 28, 2018 at 17:52 Initial Consult Date 06/03/18 Type of Consultation: Urology Reason for Consultation Pelvic hematoma and fistula from the hematoma into the bladder Requesting Provider: JULY VALENTIN MD Date/Time of Note DATE: 07/15/18 TIME: 21:04 Subjective Patient states that she has some pain in the suprapubic area today. Objective Vitals Vital Signs Date Temp Pulse Resp B/P (MAP) Pulse Ox O2 O2 Flow FiO2 Time Delivery Rate 07/15/18 98.7 120 18 106/57 93 20:12 (73) 07/15/18 Room Air 15:02 Intake and Output 07/14/18 07/14/18 07/15/18 1515:00 23:00 07:00 IntakeIntake Total 860 ml 600 ml OutputOutput Total 950 ml 1100 ml BalanceBalance -90 ml -500 ml Exam She still have some suprapubic tenderness and part of the hematoma is felt in the suprapubic area Results/Medications Result Diagram: 07/15/18 0533 07/15/18 0533 Results 24 hrs Laboratory Tests Test 07/15/18 05:33 07/15/18 10:40 White Blood Count 4.6 L Red Blood Count 2.98 L Hemoglobin 9.6 L Hematocrit 29.1 L Mean Corpuscular Volume 97.7 Mean Corpuscular Hemoglobin 32.2 Mean Corpuscular Hemoglobin Concent 33.0 Red Cell Distribution Width 17.3 H Platelet Count 177 Mean Platelet Volume 9.4 Immature Granulocytes % 0.700 H Neutrophils % 52.2 Lymphocytes % 34.9 Monocytes % 9.7 Eosinophils % 1.8 Basophils % 0.7 Nucleated Red Blood Cells % 0.0 Immature Granulocytes # 0.030 Neutrophils # 2.4 Lymphocytes # 1.6 Monocytes # 0.4 Eosinophils # 0.1 Basophils # 0.0 Nucleated Red Blood Cells # 0.0 Prothrombin Time 25.2 #H Prothrombin Time Ratio 2.0 INR International Normalized Ratio 2.28 Sodium Level 138 Potassium Level 3.3 L Chloride Level 98 Carbon Dioxide Level 35 H Anion Gap 5 Blood Urea Nitrogen 21 H Creatinine 0.69 Est Glomerular Filtrat Rate mL/min > 60 Glucose Level 100 Calcium Level 8.5 Phosphorus Level 3.8 Magnesium Level 1.7 Urine Color YELLOW Urine Clarity TURBID A Urine pH 6.0 Urine Specific [place] 1.015 Urine Ketones NEGATIVE Urine Nitrite NEGATIVE Urine Bilirubin NEGATIVE Urine Urobilinogen NEGATIVE Urine Leukocyte Esterase 2+ H Urine Microscopic RBC 65 H Urine Microscopic WBC > 182 H Urine Squamous Epithelial Cells FEW Urine Bacteria FEW A Urine Mucus FEW A Urine Hemoglobin 3+ H Urine Glucose NEGATIVE Urine Total Protein 2+ H Home Meds Reported Medications Albuterol Sulfate* (Ventolin HFA*) 18 Gm Hfa.aer.ad, 2 PUFF INHALATION Q4H, #1 INHALER 05/26/18 Ergocalciferol (Vitamin D2) (VITAMIN D2) 50,000 Unit Capsule, [id number] UNIT PO [id number], CAP 05/23/18 Warfarin Sodium* (Coumadin*) 5 Mg Tablet, 5 MG PO Q TUES,THUR,SAT, TAB 05/23/18 Warfarin Sodium* (Coumadin*) 4 Mg Tablet, 4 MG PO Q MON,WED,FRI,SUN, TAB 05/23/18 Furosemide* (Furosemide*) 20 Mg Tablet, 20 MG PO DAILY, #60 TAB TAKE Q 2 DAYS 05/23/18 Simvastatin* (Zocor*) 20 Mg Tablet, 20 MG PO QHS, #30 TAB 05/23/18 Ranitidine Hcl* (Ranitidine Hcl*) 150 Mg Tablet, 150 MG PO HS, #30 TAB 05/23/18 Acetaminophen (Mapap) 500 Mg Capsule, 500 MG PO BID PRN for PAIN, CAP 05/23/18 Levothyroxine Sodium* (Levothyroxine Sodium*) 50 Mcg Tablet, 50 MCG PO BEFORE BREAKFAST, #30 TAB 05/23/18 Spironolactone* (Aldactone*) 25 Mg Tablet, 25 MG PO DAILY, #30 TAB 05/23/18 Beclomethasone Dipropionate (Qvar Redihaler (40 MCG)) 10.6 Gm Hfa.aeroba, 10.6 GM IH DAILY, INH 05/23/18 Amlodipine Besylate* (Norvasc*) 5 Mg Tablet, 5 MG PO BID, TAB 05/23/18 Losartan-Hydrochlorothiazide (Losartan-HCTZ) 100-25 Mg Tab, 1 TAB PO DAILY, TAB 05/23/18 Medications Current Medications Levothyroxine Sodium (Synthroid) 50 mcg BEFORE BREAKFAST PO Last administered on 07/15/18at 06:05; Admin Dose 50 MCG; Start 05/30/18 at 07:00 Mometasone Furoate (Asmanex) 1 puff DAILY INH Last administered on 07/15/18 10:01; Admin Dose 1 PUFF; Start 05/29/18 at 11:00 Atorvastatin Calcium (Lipitor) 10 mg DAILY@21 PO Last administered on 07/15/18 20:45; Admin Dose 10 MG; Start 05/29/18 at 21:00 Latanoprost (Xalatan) 1 drop HS BOTH EYES Last administered on 07/15/18 20:56; Admin Dose 1 DROP; Start 06/01/18 at 21:00 Amlodipine Besylate (Norvasc) 5 mg DAILY PO ; Start 06/03/18 at 09:00; Status Hold Pantoprazole (Protonix Tab) 40 mg DAILY@06 PO Last administered on 07/15/18 06:05; Admin Dose 40 MG; Start 06/05/18 at 06:00 Metoclopramide HCl (Reglan) 5 mg TID PRN IV Nausea; Start 06/06/18 at 11:00 Polyethylene Glycol (Miralax) 17 gm BID PRN PO CONSTIPATION; Start 06/06/18 at 14:00 Bisacodyl (Dulcolax Supp) 10 mg DAILY PRN ID CONSTIPATION; Start 06/06/18 at 14:00 IV Flush (NS 10 ml) 10 ml PRN PRN IV IV PROTOCOL; Start 06/06/18 at 16:00 Nystatin (Nystatin Susp) 5 ml QID PO Last administered on 07/15/18 20:45; Admin Dose 5 ML; Start 06/06/18 at 17:00 Docusate Sodium (Colace) 100 mg DAILY PRN PO CONSTIPATION; Start 06/21/18 at 12:00 Miscellaneous Information (Pending [facility] Order For Wound Care) This patient gomes... PRN PRN XX WOUND CARE; Start 06/21/18 at 16:00 Amiodarone HCl (Cordarone) 200 mg BID PO Last administered on 07/15/18 20:46; Admin Dose 200 MG; Start 06/22/18 at 21:00 Ferrous Sulfate (Ferrous Sulfate (Ec)) 325 mg BID PO Last administered on 07/15/18 20:45; Admin Dose 325 MG; Start 07/09/18 at 09:30 Docusate Sodium (Colace) 100 mg DAILY PO Last administered on 07/15/18 10:00; Admin Dose 100 MG; Start 07/10/18 at 09:00 Miscellaneous Information (*Order Clarification Bulletin) PLEASE CLARIFY WITH ... Q8H XX ; Start 07/13/18 at 11:00 Acetaminophen (Tylenol Tab) 650 mg Q6H PRN PO MILD PAIN(1-3)OR ELEVATED TEMP Last administered on 07/14/18at 21:04; Admin Dose 650 MG; Start 07/14/18 at 21:00 Bumetanide (Bumex) 1 mg DAILY PO Last administered on 07/15/18 09:59; Admin Dose 1 MG; Start 07/15/18 at 09:00 Piperacillin Sod/ Tazobactam Sod 100 ml @ 200 mls/hr Q6 IVPB Last administered on 07/15/18at 17:39; Admin Dose 200 MLS/HR; Start 07/15/18 at 10:30 Warfarin Sodium (Coumadin) 6 mg DAILY@17 PO Last administered on 07/15/18at 17:33; Admin Dose 6 MG; Start 07/15/18 at 17:[address] cystogram: 1. There is a fluid and air collection anterior to the empty urinary bladder measuring approximate 13 cm transverse by 10 cm AP by 6 cm cranial caudal. This is unchanged from the previous study of 07/02/2018. 2. Fistula demonstrated between the urinary bladder and the anterior pelvic fluid collection. The fistulous tract measures 12 mm in diameter. 3. Contrast material is seen within the vaginal canal. 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 The site of fistula appears to be the mid urethra, as demonstrated on sagittal reformatted images. Assessment/Plan Hospital Course (Demo Recall) 62-year-old female underwent coronary angiogram. She did have right femoral artery bleeding with a pseudoaneurysm which was managed by undergoing: Covered stent placement 6 x 100 mm right common femoral artery and right external iliac artery The patient had a pelvic hematoma which has fistulized into the bladder. She has a Mensah catheter which was draining bloody urine initially but now the drainage is clear. The size of the hematoma has been decreasing. CT cystogram was done today and that showed: 1. There is a fluid and air collection anterior to the empty urinary bladder measuring approximate 13 cm transverse by 10 cm AP by 6 cm cranial caudal. This is unchanged from the previous study of 07/02/2018. 2. Fistula demonstrated between the urinary bladder and the anterior pelvic fluid collection. The fistulous tract measures 12 mm in diameter. 3. Contrast material is seen within the vaginal canal. 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 The site of fistula appears to be the mid urethra, as demonstrated on sagittal reformatted images. I did talk to the patient with her son and her who were in her room. Explained to them the finding of the CT scan. 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 Discussed the treatment options which include waiting with the hope that the fistula will close by itself with times. And as far as the fistula in the mid urethra since that is distal to the sphincter probably just leave it alone. We discussed options of surgery to drain the suprapubic and pelvic hematoma and closed the bladder. Discussed the risks of infection and the usual risks especially considering her general medical and cardiac condition. I also discussed with them having a second opinion with another urologist. JOAQUIN DE LEON MD Jul 15, 2018 21:11
[2018-07-16] VITALS (10 sets, daily range): BP systolic 114–133; BP diastolic 54–60; PULSE 80–101; RESP 17–18
[2018-07-16] MEDS: PIPER-TAZO 3.375 GM IV (PMX) 100 ML IVPB SCH ×3 (05:43→18:08)
[2018-07-16] MEDS: PANTOPRAZOLE (EC) 40 MG TAB PO SCH (05:43)
[2018-07-16] MEDS: LEVOTHYROXINE 50 MCG TAB PO SCH (06:03)
[2018-07-16] MEDS: FERROUS SULFATE (EC) 325 MG TAB PO SCH ×2 (08:48→21:06)
[2018-07-16] MEDS: NYSTATIN SUSP 5 ML CUP PO SCH ×4 (08:48→21:07)
[2018-07-16] MEDS: AMIODARONE 200 MG TAB PO SCH ×2 (08:49→21:06)
[2018-07-16] MEDS: DOCUSATE SODIUM 100 MG CAP PO SCH (08:49)
[2018-07-16] MEDS: BUMETANIDE 1 MG TAB PO SCH (08:49)
[2018-07-16] MEDS: MOMETASONE 0.24 GM INHALER INH SCH (08:50)
--- NOTE | 2018-07-16 11:58 | CONS ---
Assessment/Plan Assessment/Plan Assessment/Plan (Daily) 1. Nonoliguric acute kidney injury with previously normal baseline creatinine. Etiology of FORREST is secondary to acute tubular necrosis. Renal function is improved. Continue current treatment plan, supportive care and renally dose all meds, monitor closely on diuretic therapy. 2. 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 The patient's hematuria has been improving. Continue to monitor. 3. Volume overload. The patient is clinically improving. cont bumex po, mo nitor renal function, electrolytes closely. 4. Hypokalemia. We will replete with potassium chloride. 5. Anemia. Monitor hemoglobin and hematocrit levels. 6. Mechanical heart valve. Continue anticoagulation per cardiology. 7. Sepsis secondary to urinary tract infection. The patient is to continue the antibiotic course. 8. Hypothyroidism. Continue Synthroid. 9. Dyslipidemia. Continue statin therapy. 10. Hypertension. Continue current blood pressure regimen. 11. Urinary tract infection. 12. Liver cirrhosis. Continue medical management. 13. Intraabdominal hematoma. Consultation Date/Type/Reason Admit Date/Time May 28, 2018 at 17:52 Initial Consult Date 06/03/18 Requesting Provider: JULY VALENTIN MD Date/Time of Note DATE: 07/16/18 TIME: 11:57 24 HR Interval Summary Free Text/Dictation denies shortness of breath or n/v on bumex po d/w rn gen nad cv rrr pulm ctab abd soft, nd, nt +bs ext: no edema Exam/Review of Systems Exam Vitals Vital Signs Date Temp Pulse Resp B/P (MAP) Pulse Ox O2 O2 Flow FiO2 Time Delivery Rate 07/16/18 97.5 83 17 116/54 96 11:45 (74) 07/15/18 Room Air 15:02 Intake and Output 07/15/18 07/15/18 07/16/18 1414:59 22:59 06:59 IntakeIntake Total 880 ml 500 ml OutputOutput Total 1450 ml 1450 ml BalanceBalance -570 ml -950 ml Results Result Diagram: 07/15/18 0533 07/16/18 0623 Results 24hrs Laboratory Tests Test 07/16/18 06:23 Prothrombin Time 21.7 H Prothrombin Time Ratio 1.7 INR International Normalized Ratio 1.88 Sodium Level 138 Potassium Level 3.3 L Chloride Level 101 Carbon Dioxide Level 32 H Anion Gap 5 Blood Urea Nitrogen 20 Creatinine 0.70 Est Glomerular Filtrat Rate mL/min > 60 Glucose Level 102 Calcium Level 8.5 Phosphorus Level 3.9 Magnesium Level 1.8 Medications Medication Current Medications Levothyroxine Sodium (Synthroid) 50 mcg BEFORE BREAKFAST PO Last administered on 07/16/18 06:03; Admin Dose 50 MCG; Start 05/30/18 at 07:00 Mometasone Furoate (Asmanex) 1 puff DAILY INH Last administered on 07/16/18 08 :50; Admin Dose 1 PUFF; Start 05/29/18 at 11:00 Atorvastatin Calcium (Lipitor) 10 mg DAILY@21 PO Last administered on 07/15/18 20:45; Admin Dose 10 MG; Start 05/29/18 at 21:00 Latanoprost (Xalatan) 1 drop HS BOTH EYES Last administered on 07/15/18 20:56; Admin Dose 1 DROP; Start 06/01/18 at 21:00 Amlodipine Besylate (Norvasc) 5 mg DAILY PO ; Start 06/03/18 at 09:00; Status Hold Pantoprazole (Protonix Tab) 40 mg DAILY@06 PO Last administered on 07/16/18at 05:43; Admin Dose 40 MG; Start 06/05/18 at 06:00 Metoclopramide HCl (Reglan) 5 mg TID PRN IV Nausea; Start 06/06/18 at 11:00 Polyethylene Glycol (Miralax) 17 gm BID PRN PO CONSTIPATION; Start 06/06/18 at 14:00 Bisacodyl (Dulcolax Supp) 10 mg DAILY PRN SC CONSTIPATION; Start 06/06/18 at 14:00 IV Flush (NS 10 ml) 10 ml PRN PRN IV IV PROTOCOL; Start 06/06/18 at 16:00 Nystatin (Nystatin Susp) 5 ml QID PO Last administered on 07/16/18at 08:48; Admin Dose 5 ML; Start 06/06/18 at 17:00 Docusate Sodium (Colace) 100 mg DAILY PRN PO CONSTIPATION; Start 06/21/18 at 12:00 Miscellaneous Information (Pending [facility] Order For Wound Care) This patient gomes... PRN PRN XX WOUND CARE; Start 06/21/18 at 16:00 Amiodarone HCl (Cordarone) 200 mg BID PO Last administered on 07/16/18 08:49; Admin Dose 200 MG; Start 06/22/18 at 21:00 Ferrous Sulfate (Ferrous Sulfate (Ec)) 325 mg BID PO Last administered on 07/16/18 08:48; Admin Dose 325 MG; Start 07/09/18 at 09:30 Docusate Sodium (Colace) 100 mg DAILY PO Last administered on 07/16/18 08:49; Admin Dose 100 MG; Start 07/10/18 at 09:00 Miscellaneous Information (*Order Clarification Bulletin) PLEASE CLARIFY WITH ... Q8H XX ; Start 07/13/18 at 11:00 Acetaminophen (Tylenol Tab) 650 mg Q6H PRN PO MILD PAIN(1-3)OR ELEVATED TEMP Last administered on 07/14/18 21:04; Admin Dose 650 MG; Start 07/14/18 at 21:00 Bumetanide (Bumex) 1 mg DAILY PO Last administered on 07/16/18 08:49; Admin Dose 1 MG; Start 07/15/18 at 09:00 Piperacillin Sod/ Tazobactam Sod 100 ml @ 200 mls/hr Q6 IVPB Last administered on 07/16/18 05:43; Admin Dose 200 MLS/HR; Start 07/15/18 at 10:30 Warfarin Sodium (Coumadin) 6 mg DAILY@17 PO Last administered on 07/15/18 17:33; Admin Dose 6 MG; Start 07/15/18 at 17:00 ALTA BUSTAMANTE MD Jul 16, 2018 11:58
--- NOTE | 2018-07-16 12:39 | PN ---
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 Continue Mensah, monitor. Dr. Ashford is following in urology consultation. -Anemia of acute blood loss, transfuse PRN, monitor H&H. -S/p UTI, completed treatment with Zosyn. Dr. Castellanos is following in infection disease consultation. 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 -S/p Nose/oropharyngeal bleed on 06/11/2018, stopped after heparin was held. -Retroperitoneal bleed secondary to vascular injury status post stent placement. S/p CT guided placement of drainage catheter into pelvic hematoma on 06/05/18 and sequent removal. -Status post left heart catheterization with no significant obstructive coronary artery disease by Dr. Moreno on 05/27/2018. -Anemia of acute blood loss, status post blood transfusion, continue to monitor hemoglobin and hematocrit. -Urinary incontinence. -Acute illness myopathy -Status post mitral valve replacement with mechanical valve in 1999 in [facility]. Continue Coumadin, monitor PT/INR. -HTN, continue metoprolol -Hyperlipidemia -Hypothyroidism, continue levothyroxine -History of asthma Result Diagram: 07/15/18 0533 07/16/18 0623 Results 24hrs Laboratory Tests Test 07/16/18 06:23 Prothrombin Time 21.7 H Prothrombin Time Ratio 1.7 INR International Normalized Ratio 1.88 Sodium Level 138 Potassium Level 3.3 L Chloride Level 101 Carbon Dioxide Level 32 H Anion Gap 5 Blood Urea Nitrogen 20 Creatinine 0.70 Est Glomerular Filtrat Rate mL/min > 60 Glucose Level 102 Calcium Level 8.5 Phosphorus Level 3.9 Magnesium Level 1.8 Subjective 24 Hr Interval Summary Free Text/Dictation Patient has no complaints Exam/Review of Systems Exam Vitals Vital Signs Date Temp Pulse Resp B/P (MAP) Pulse Ox O2 O2 Flow FiO2 Time Delivery Rate 07/16/18 84 12:10 07/16/18 97.5 17 116/54 96 11:45 (74) 07/15/18 Room Air 15:02 Intake and Output 07/15/18 07/15/18 07/16/18 1515:00 23:00 07:00 IntakeIntake Total 880 ml 500 ml OutputOutput Total 1450 ml 1450 ml BalanceBalance -570 ml -950 ml Constitutional: well developed Head: normocephalic, atraumatic Neck: supple Respiratory: diminished breath sounds Cardiovascular: regular rate and rhythm Gastrointestinal: soft, non-tender Extremities: normal pulses Results Results 24hrs Laboratory Tests Test 07/16/18 06:23 Prothrombin Time 21.7 H Prothrombin Time Ratio 1.7 INR International Normalized Ratio 1.88 Sodium Level 138 Potassium Level 3.3 L Chloride Level 101 Carbon Dioxide Level 32 H Anion Gap 5 Blood Urea Nitrogen 20 Creatinine 0.70 Est Glomerular Filtrat Rate mL/min > 60 Glucose Level 102 Calcium Level 8.5 Phosphorus Level 3.9 Magnesium Level 1.8 Medications Medication Current Medications Levothyroxine Sodium (Synthroid) 50 mcg BEFORE BREAKFAST PO Last administered on 07/16/18at 06:03; Admin Dose 50 MCG; Start 05/30/18 at 07:00 Mometasone Furoate (Asmanex) 1 puff DAILY INH Last administered on 07/16/18at 08:50; Admin Dose 1 PUFF; Start 05/29/18 at 11:00 Atorvastatin Calcium (Lipitor) 10 mg DAILY@21 PO Last administered on 07/15/18at 20:45; Admin Dose 10 MG; Start 05/29/18 at 21:00 Latanoprost (Xalatan) 1 drop HS BOTH EYES Last administered on 07/15/18at 20:56; Admin Dose 1 DROP; Start 06/01/18 at 21:00 Amlodipine Besylate (Norvasc) 5 mg DAILY PO ; Start 06/03/18 at 09:00; Status Hold Pantoprazole (Protonix Tab) 40 mg DAILY@06 PO Last administered on 07/16/18at 05:43; Admin Dose 40 MG; Start 06/05/18 at 06:00 Metoclopramide HCl (Reglan) 5 mg TID PRN IV Nausea; Start 06/06/18 at 11:00 Polyethylene Glycol (Miralax) 17 gm BID PRN PO CONSTIPATION; Start 06/06/18 at 14:00 Bisacodyl (Dulcolax Supp) 10 mg DAILY PRN [place] CONSTIPATION; Start 06/06/18 at 14:00 IV Flush (NS 10 ml) 10 ml PRN PRN IV IV PROTOCOL; Start 06/06/18 at 16:00 Nystatin (Nystatin Susp) 5 ml QID PO Last administered on 07/16/18 08:48; Admin Dose 5 ML; Start 06/06/18 at 17:00 Docusate Sodium (Colace) 100 mg DAILY PRN PO CONSTIPATION; Start 06/21/18 at 12:00 [facility] This patient gomes... PRN PRN XX WOUND CARE; Start 06/21/18 at 16:00 Amiodarone HCl (Cordarone) 200 mg BID PO Last administered on 07/16/18 08:49; Admin Dose 200 MG; Start 06/22/18 at 21:00 Ferrous Sulfate (Ferrous Sulfate (Ec)) 325 mg BID PO Last administered on 07/16/18 08:48; Admin Dose 325 MG; Start 07/09/18 at 09:30 Docusate Sodium (Colace) 100 mg DAILY PO Last administered on 07/16/18 08:49; Admin Dose 100 MG; Start 07/10/18 at 09:00 Miscellaneous Information (*Order Clarification Bulletin) PLEASE CLARIFY WITH MD... Q8H XX ; Start 07/13/18 at 11:00 Acetaminophen (Tylenol Tab) 650 mg Q6H PRN PO MILD PAIN(1-3)OR ELEVATED TEMP Last administered on 07/14/18 21:04; Admin Dose 650 MG; Start 07/14/18 at 21:00 Bumetanide (Bumex) 1 mg DAILY PO Last administered on 07/16/18 08:49; Admin Dose 1 MG; Start 07/15/18 at 09:00 Piperacillin Sod/ Tazobactam Sod 100 ml @ 200 mls/hr Q6 IVPB Last administered on 07/16/18 05:43; Admin Dose 200 MLS/HR; Start 07/15/18 at 10:30 Warfarin Sodium (Coumadin) 6 mg DAILY@17 PO Last administered on 07/15/18at 17:33; Admin Dose 6 MG; Start 07/15/18 at 17:00 ABDIRASHID PRATHER Jul 16, 2018 12:39
--- NOTE | 2018-07-16 15:33 | CONS ---
Assessment/Plan Assessment/Plan Hospital Course (Demo Recall) IMP: 1.cad s/p LHC with no sig obstructive cad. Mildly depressed LVEF--40-45% ? nonischemic process 2.HTN 3.RP Bleed s/p transfusions now stable and tolerating heparin/coumadin loading. Then had recurrent bled overnight now s/p covered stent to SR SOLUTIONS CONSULTANT/Ext iliac. Stable collection by abd CT 06/06 but still with pigtail catheter in place 4.HL 5.MVR-mechanical 6.anemia- s/p repair of R SR SOLUTIONS CONSULTANT/illiac. Had hemoptysis with subsequent drop in Hgb again and holding of heparin. Had some mild blood tinged sputum 7.Hypothyroid 8. GOMES-negative Head CT 9. Fevers-with positive ua 10. UTI-Being followed by ID and on abx 11.ARF-? 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 Coagulopathy-downtrenede and resumed on couamadin with midly subtherapeutic INR 14. LE weakness-? compression from hematoma and exacerbated by femoral compression after cath-now resolved 15. arterial insuff- LLE- s/p ENVIRONMENTAL PROJECT MANAGER/thrombolysis 06/04 successfully with palpable pulses/B DP/PT and remain that way 16. PAF/AFL-rate controlled 17. 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 Now decreasing hematuria. s/p pelvic CT revealing ongoing fistula and per urology note was discussed with family 18. Epistaxis-improved/resolved. no recurrence 19. 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 ? new , ? etiology. Urology following and per his note has discussed treatment options with family including surgical versus waiting and thought that waiting would be best at this time Recc: -Now on tele -Continue BB with well controlled Hr's -Continue statin -s/p course of abx's -ongoing ID f/u -F/U java golden gate developer/K closely with creatnine now normalized and volume status improving on bumex bid. Will also assess patient's PO intake and possible contribution to volume overload -Follow HGb closely which has been stable to improved actually -PT/ambulation- doing 3x/day -will continue amio bid for now and follow rhythm clsoely with patient having episodes of PAF/AFL but always rate controlled -Urology following with findings of apparent bladder fistula and thus draining of the hematoma through the bladder causing hematuria which has improved and now apparent bladder-vaginal fistula.Continue to follow hematuria for complete resolution and assess need for spontaneous closure versus need for repair which has been discussed with family and urology and between them as well. -Hold coumadin and follow inr closely -Continue current bumex now BID PO with improved volume status Consultation Date/Type/Reason Admit Date/Time May 28, 2018 at 17:52 Initial Consult Date 05/28/18 Type of Consult Cardiology Reason for Consultation MVR Requesting Provider: JULY VALENTIN MD Date/Time of Note DATE: 07/16/18 TIME: 15:25 Exam/Review of Systems Vital Signs Vitals Vital Signs Date Temp Pulse Resp B/P (MAP) Pulse Ox O2 O2 Flow FiO2 Time Delivery Rate 07/16/18 84 12:10 07/16/18 97.5 17 116/54 96 11:45 (74) 07/15/18 Room Air 15:02 Intake and Output 07/15/18 07/15/18 07/16/18 1515:00 23:00 07:00 IntakeIntake Total 880 ml 500 ml OutputOutput Total 1450 ml 1450 ml BalanceBalance -570 ml -950 ml Exam Exam Review of Systems: CONSTITUTIONAL: No fevers, chills. PULMONARY: No sob CARDIOVASCULAR: No chest pain/palpitations GASTROINTESTINAL: No nausea/vomiting. GENITOURINARY: No hematuria/dysuria. MUSCULOSKELETAL: No myagias/arthalgias. PSYCHIATRIC: The patient denies depression. NEUROLOGIC: No weakness Constitutional: alert Psych: no complaints Head: normocephalic ENMT: mucosa pink and moist Neck: supple, jvd (9 cm water) Respiratory: diminished breath sounds (at bases/B) Cardiovascular: regular rate and rhythm Gastrointestinal: soft, non-tender Musculoskeletal: muscle tone (normal) Extremities: edema (none) Neurological: other (No focal deficits) Labs Result Diagram: 07/15/18 0533 07/16/18 0623 Results 24hrs Laboratory Tests Test 07/16/18 06:23 Prothrombin Time 21.7 H Prothrombin Time Ratio 1.7 INR International Normalized Ratio 1.88 Sodium Level 138 Potassium Level 3.3 L Chloride Level 101 Carbon Dioxide Level 32 H Anion Gap 5 Blood Urea Nitrogen 20 Creatinine 0.70 Est Glomerular Filtrat Rate mL/min > 60 Glucose Level 102 Calcium Level 8.5 Phosphorus Level 3.9 Magnesium Level 1.8 Medications Medications Current Medications Levothyroxine Sodium (Synthroid) 50 mcg BEFORE BREAKFAST PO Last administered on 07/16/18 06:03; Admin Dose 50 MCG; Start 05/30/18 at 07:00 Mometasone Furoate (Asmanex) 1 puff DAILY INH Last administered on 07/16/18 08:50; Admin Dose 1 PUFF; Start 05/29/18 at 11:00 Atorvastatin Calcium (Lipitor) 10 mg DAILY@21 PO Last administered on 07/15/18 20:45; Admin Dose 10 MG; Start 05/29/18 at 21:00 Latanoprost (Xalatan) 1 drop HS BOTH EYES Last administered on 07/15/18at 20:56; Admin Dose 1 DROP; Start 06/01/18 at 21:00 Amlodipine Besylate (Norvasc) 5 mg DAILY PO ; Start 06/03/18 at 09:00; Status Hold Pantoprazole (Protonix Tab) 40 mg DAILY@06 PO Last administered on 07/16/18at 05:43; Admin Dose 40 MG; Start 06/05/18 at 06:00 Metoclopramide HCl (Reglan) 5 mg TID PRN IV Nausea; Start 06/06/18 at 11:00 Polyethylene Glycol (Miralax) 17 gm BID PRN PO CONSTIPATION; Start 06/06/18 at 14:00 Bisacodyl (Dulcolax Supp) 10 mg DAILY PRN [place] CONSTIPATION; Start 06/06/18 at 14:00 IV Flush (NS 10 ml) 10 ml PRN PRN IV IV PROTOCOL; Start 06/06/18 at 16:00 Nystatin (Nystatin Susp) 5 ml QID PO Last administered on 07/16/18at 12:56; Admin Dose 5 ML; Start 06/06/18 at 17:00 Docusate Sodium (Colace) 100 mg DAILY PRN PO CONSTIPATION; Start 06/21/18 at 12:00 Miscellaneous Information (Pending [facility] Order For Wound Care) This patient gomes... PRN PRN XX WOUND CARE; Start 06/21/18 at 16:00 Amiodarone HCl (Cordarone) 200 mg BID PO Last administered on 07/16/18 08:49; Admin Dose 200 MG; Start 06/22/18 at 21:00 Ferrous Sulfate (Ferrous Sulfate (Ec)) 325 mg BID PO Last administered on 07/16/18 08:48; Admin Dose 325 MG; Start 07/09/18 at 09:30 Docusate Sodium (Colace) 100 mg DAILY PO Last administered on 07/16/18 08:49; Admin Dose 100 MG; Start 07/10/18 at 09:00 Miscellaneous Information (*Order Clarification Bulletin) PLEASE CLARIFY WITH . Q8H XX ; Start 07/13/18 at 11:00 Acetaminophen (Tylenol Tab) 650 mg Q6H PRN PO MILD PAIN(1-3)OR ELEVATED TEMP Last administered on 07/14/18 21:04; Admin Dose 650 MG; Start 07/14/18 at 21:00 Bumetanide (Bumex) 1 mg DAILY PO Last administered on 07/16/18 08:49; Admin Dose 1 MG; Start 07/15/18 at 09:00 Piperacillin Sod/ Tazobactam Sod 100 ml @ 200 mls/hr Q6 IVPB Last administered on 07/16/18 13:53; Admin Dose 200 MLS/HR; Start 07/15/18 at 10:30 Warfarin Sodium (Coumadin) 6 mg DAILY@17 PO Last administered on 07/15/18 17:33; Admin Dose 6 MG; Start 07/15/18 at 17:00 CHRIS LAZAR Jul 16, 2018 15:33
--- NOTE | 2018-07-16 16:35 | CONS ---
Consult Date/Type/Reason Admit Date/Time May 28, 2018 at 17:52 Initial Consult Date 06/03/18 Type of Consultation: Urology Reason for Consultation Pelvic hematoma and fistula into the bladder. Requesting Provider: JULY VALENTIN MD Date/Time of Note DATE: 07/16/18 TIME: 16:31 Subjective Patient is feeling better, her urine is clearing Objective Vitals Vital Signs Date Temp Pulse Resp B/P (MAP) Pulse Ox O2 O2 Flow FiO2 Time Delivery Rate 07/16/18 101 16:17 07/16/18 97.7 17 133/60 97 15:44 (84) 07/15/18 Room Air 15:02 Intake and Output 07/15/18 07/15/18 07/16/18 1414:59 22:59 06:59 IntakeIntake Total 880 ml 500 ml OutputOutput Total 1450 ml 1450 ml BalanceBalance -570 ml -950 ml Exam Mensah catheter is draining well. Results/Medications Result Diagram: 07/15/18 0533 07/16/18 0623 Results 24 hrs Laboratory Tests Test 07/16/18 06:23 Prothrombin Time 21.7 H Prothrombin Time Ratio 1.7 INR International Normalized Ratio 1.88 Sodium Level 138 Potassium Level 3.3 L Chloride Level 101 Carbon Dioxide Level 32 H Anion Gap 5 Blood Urea Nitrogen 20 Creatinine 0.70 Est Glomerular Filtrat Rate mL/min > 60 Glucose Level 102 Calcium Level 8.5 Phosphorus Level 3.9 Magnesium Level 1.8 Home Meds Reported Medications Albuterol Sulfate* (Ventolin HFA*) 18 Gm Hfa.aer.ad, 2 PUFF INHALATION Q4H, #1 INHALER 05/26/18 Ergocalciferol (Vitamin D2) (VITAMIN D2) 50,000 Unit Capsule, 45460 UNIT PO [id number], CAP 05/23/18 Warfarin Sodium* (Coumadin*) 5 Mg Tablet, 5 MG PO Q TUES,THUR,SAT, TAB 05/23/18 Warfarin Sodium* (Coumadin*) 4 Mg Tablet, 4 MG PO Q MON,WED,FRI,SUN, TAB 05/23/18 Furosemide* (Furosemide*) 20 Mg Tablet, 20 MG PO DAILY, #60 TAB TAKE Q 2 DAYS 05/23/18 Simvastatin* (Zocor*) 20 Mg Tablet, 20 MG PO QHS, #30 TAB 05/23/18 Ranitidine Hcl* (Ranitidine Hcl*) 150 Mg Tablet, 150 MG PO HS, #30 TAB 05/23/18 Acetaminophen (Mapap) 500 Mg Capsule, 500 MG PO BID PRN for PAIN, CAP 05/23/18 Levothyroxine Sodium* (Levothyroxine Sodium*) 50 Mcg Tablet, 50 MCG PO BEFORE BREAKFAST, #30 TAB 05/23/18 Spironolactone* (Aldactone*) 25 Mg Tablet, 25 MG PO DAILY, #30 TAB 05/23/18 Beclomethasone Dipropionate (Qvar Redihaler (40 MCG)) 10.6 Gm Hfa.aeroba, 10.6 GM IH DAILY, INH 05/23/18 Amlodipine Besylate* (Norvasc*) 5 Mg Tablet, 5 MG PO BID, TAB 05/23/18 Losartan-Hydrochlorothiazide (Losartan-HCTZ) 100-25 Mg Tab, 1 TAB PO DAILY, TAB 05/23/18 Medications Current Medications Levothyroxine Sodium (Synthroid) 50 mcg BEFORE BREAKFAST PO Last administered on 07/16/18at 06:03; Admin Dose 50 MCG; Start 05/30/18 at 07:00 Mometasone Furoate (Asmanex) 1 puff DAILY INH Last administered on 07/16/18at 08:50; Admin Dose 1 PUFF; Start 05/29/18 at 11:00 Atorvastatin Calcium (Lipitor) 10 mg DAILY@21 PO Last administered on 07/15/18at 20:45; Admin Dose 10 MG; Start 05/29/18 at 21:00 Latanoprost (Xalatan) 1 drop HS BOTH EYES Last administered on 07/15/18at 20:56; Admin Dose 1 DROP; Start 06/01/18 at 21:00 Amlodipine Besylate (Norvasc) 5 mg DAILY PO ; Start 06/03/18 at 09:00; Status Hold Pantoprazole (Protonix Tab) 40 mg DAILY@06 PO Last administered on 07/16/18at 05:43; Admin Dose 40 MG; Start 06/05/18 at 06:00 Metoclopramide HCl (Reglan) 5 mg TID PRN IV Nausea; Start 06/06/18 at 11:00 Polyethylene Glycol (Miralax) 17 gm BID PRN PO CONSTIPATION; Start 06/06/18 at 14:00 Bisacodyl (Dulcolax Supp) 10 mg DAILY PRN [place] CONSTIPATION; Start 06/06/18 at 14:00 IV Flush (NS 10 ml) 10 ml PRN PRN IV IV PROTOCOL; Start 06/06/18 at 16:00 Nystatin (Nystatin Susp) 5 ml QID PO Last administered on 07/16/18 12:56; Admin Dose 5 ML; Start 06/06/18 at 17:00 Docusate Sodium (Colace) 100 mg DAILY PRN PO CONSTIPATION; Start 06/21/18 at 12:00 Miscellaneous Information (Pending [facility] Order For Wound Care) This patient gomes... PRN PRN XX WOUND CARE; Start 06/21/18 at 16:00 Amiodarone HCl (Cordarone) 200 mg BID PO Last administered on 07/16/18 08:49; Admin Dose 200 MG; Start 06/22/18 at 21:00 Ferrous Sulfate (Ferrous Sulfate (Ec)) 325 mg BID PO Last administered on 07/16/18 08:48; Admin Dose 325 MG; Start 07/09/18 at 09:30 Docusate Sodium (Colace) 100 mg DAILY PO Last administered on 07/16/18 08:49; Admin Dose 100 MG; Start 07/10/18 at 09:00 Miscellaneous Information (*Order Clarification Bulletin) PLEASE CLARIFY WITH MD... Q8H XX ; Start 07/13/18 at 11:00 Acetaminophen (Tylenol Tab) 650 mg Q6H PRN PO MILD PAIN(1-3)OR ELEVATED TEMP Last administered on 07/14/18 21:04; Admin Dose 650 MG; Start 07/14/18 at 21:00 Bumetanide (Bumex) 1 mg DAILY PO Last administered on 07/16/18 08:49; Admin Dose 1 MG; Start 07/15/18 at 09:00 Piperacillin Sod/ Tazobactam Sod 100 ml @ 200 mls/hr Q6 IVPB Last administered on 07/16/18 13:53; Admin Dose 200 MLS/HR; Start 07/15/18 at 10:30 Warfarin Sodium (Coumadin) 6 mg DAILY@17 PO Last administered on 07/15/18 17:33; Admin Dose 6 MG; Start 07/15/18 at 17:00 Assessment/Plan Hospital Course (Demo Recall) 62-year-old female underwent coronary angiogram. She did have right femoral artery bleeding with a pseudoaneurysm which was managed by undergoing: Covered stent placement 6 x 100 mm right common femoral artery and right external iliac artery The patient had a pelvic hematoma which has fistulized into the bladder. She has a Mensah catheter which was draining bloody urine initially but now the drainage is clear. The size of the hematoma has been decreasing. CT cystogram was done today and that showed: 1. There is a fluid and air collection anterior to the empty urinary bladder measuring approximate 13 cm transverse by 10 cm AP by 6 cm cranial caudal. This is unchanged from the previous study of 07/02/2018. 2. Fistula demonstrated between the urinary bladder and the anterior pelvic fluid collection. The fistulous tract measures 12 mm in diameter. 3. Contrast material is seen within the vaginal canal. 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 The site of fistula appears to be the mid urethra, as demonstrated on sagittal reformatted images. I did talk to the patient with her son and her who were in her room. Explained to them the finding of the CT scan. 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 Discussed the treatment options which include waiting with the hope that the fistula will close by itself with times. And as far as the fistula in the mid urethra since that is distal to the sphincter probably just leave it alone. We discussed options of surgery to drain the suprapubic and pelvic hematoma and closed the bladder. Discussed the risks of infection and the usual risks especially considering her general medical and cardiac condition. I also discussed with them having a second opinion with another urologist. I did review the CT cystogram with another radiologist. 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 As the contrast went into the vagina from the urethra and that was what the radiologist thought it is a fistula. Therefore the patient only has the hematoma on the right side of the bladder with the fistula into the bladder. If that does not close with time then 1 would operate on her and close the fistula. I mentioned to the patient that we could go ahead and operate on her and from what looks she understood and said she does not want surgery. I will talk with her son later on. JOAQUIN DE LEON MD Jul 16, 2018 16:35
[2018-07-16] MEDS: WARFARIN 3 MG TAB PO SCH (18:08)
[2018-07-16] MEDS: ATORVASTATIN 10 MG TAB PO SCH (21:06)
[2018-07-16] MEDS: LATANOPROST 0.005% 2.5 ML OPH BOTH EYES SCH (21:10)
--- NOTE | 2018-07-16 21:28 | CONS ---
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 On the report, contrast material was identified within the vaginal canal; however, according to Dr. Ashford, this does not represent a fistulous tract between urethra and vagiina - Mensah was exchanged on 07/12/2018 and 07/14/2018 because her older catheter was leaking - s/p UTI due to hafnai alvei and pediococci on 06/30/18. Pt completed pip/tazo (07/02/18-07/05/2018) - S/p UTI due to E. coli. 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, s/p covered stent placement 6 x 100 mm right common femoral artery and right external iliac artery, abdominal aortogram, catheter introduction to the abdominal aorta, JOSÉ MIGUEL guidance into the central artery 06/02/2018 - S/p retroperitoneal bleed - S/p acute anemia requiring PRBC # endo - Hyperlipidemia - Hypothyroidism recommendations: - pending results: cultures of urine and blood on 07/15/2018 - I instructed Pt's RN to collect an earlier sample of urine for urinalysis - continue empiric pip/tazo (07/15/2018-) - management d/w Pt with Pt's RN Andrew, 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 an chief 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 officer as well Consultation Date/Type/Reason Admit Date/Time May 28, 2018 at 17:52 Initial Consult Date 06/03/18 Type of Consult ID Requesting Provider: JULY VALENTIN MD Date/Time of Note DATE: 07/16/18 TIME: 21:26 Exam/Review of Systems Exam Vitals Vital Signs Date Temp Pulse Resp B/P (MAP) Pulse Ox O2 O2 Flow FiO2 Time Delivery Rate 07/16/18 99 20:00 07/16/18 99.1 18 122/59 96 20:00 (80) 07/15/18 Room Air 15:02 Intake and Output 07/15/18 07/15/18 07/16/18 1515:00 23:00 07:00 IntakeIntake Total 880 ml 500 ml OutputOutput Total 1450 ml 1450 ml BalanceBalance -570 ml -950 ml Results Result Diagram: 07/15/18 0533 07/16/18 0623 Results 24hrs Laboratory Tests Test 07/16/18 06:23 Prothrombin Time 21.7 H Prothrombin Time Ratio 1.7 INR International Normalized Ratio 1.88 Sodium Level 138 Potassium Level 3.3 L Chloride Level 101 Carbon Dioxide Level 32 H Anion Gap 5 Blood Urea Nitrogen 20 Creatinine 0.70 Est Glomerular Filtrat Rate mL/min > 60 Glucose Level 102 Calcium Level 8.5 Phosphorus Level 3.9 Magnesium Level 1.8 Medications Medication Current Medications Levothyroxine Sodium (Synthroid) 50 mcg BEFORE BREAKFAST PO Last administered on 07/16/18at 06:03; Admin Dose 50 MCG; Start 05/30/18 at 07:00 Mometasone Furoate (Asmanex) 1 puff DAILY INH Last administered on 07/16/18at 08:50; Admin Dose 1 PUFF; Start 05/29/18 at 11:00 Atorvastatin Calcium (Lipitor) 10 mg DAILY@21 PO Last administered on 07/16/18at 21:06; Admin Dose 10 MG; Start 05/29/18 at 21:00 Latanoprost (Xalatan) 1 drop HS BOTH EYES Last administered on 07/16/18at 21:10; Admin Dose 1 DROP; Start 06/01/18 at 21:00 Amlodipine Besylate (Norvasc) 5 mg DAILY PO ; Start 06/03/18 at 09:00; Status Hold Pantoprazole (Protonix Tab) 40 mg DAILY@06 PO Last administered on 07/16/18 05:43; Admin Dose 40 MG; Start 06/05/18 at 06:00 Metoclopramide HCl (Reglan) 5 mg TID PRN IV Nausea; Start 06/06/18 at 11:00 Polyethylene Glycol (Miralax) 17 gm BID PRN PO CONSTIPATION; Start 06/06/18 at 14:00 Bisacodyl (Dulcolax Supp) 10 mg DAILY PRN [place] CONSTIPATION; Start 06/06/18 at 14:00 IV Flush (NS 10 ml) 10 ml PRN PRN IV IV PROTOCOL; Start 06/06/18 at 16:00 Nystatin (Nystatin Susp) 5 ml QID PO Last administered on 07/16/18at 21:07; Admin Dose 5 ML; Start 06/06/18 at 17:00 Docusate Sodium (Colace) 100 mg DAILY PRN PO CONSTIPATION; Start 06/21/18 at 12:00 Miscellaneous Information (Pending [facility] Order For Wound Care) This patient gomes... PRN PRN XX WOUND CARE; Start 06/21/18 at 16:00 Amiodarone HCl (Cordarone) 200 mg BID PO Last administered on 07/16/18 21:06; Admin Dose 200 MG; Start 06/22/18 at 21:00 Ferrous Sulfate (Ferrous Sulfate (Ec)) 325 mg BID PO Last administered on 07/16/18at 21:06; Admin Dose 325 MG; Start 07/09/18 at 09:30 Docusate Sodium (Colace) 100 mg DAILY PO Last administered on 07/16/18 08:49; Admin Dose 100 MG; Start 07/10/18 at 09:00 Miscellaneous Information (*Order Clarification Bulletin) PLEASE CLARIFY WITH MD... Q8H XX ; Start 07/13/18 at 11:00 Acetaminophen (Tylenol Tab) 650 mg Q6H PRN PO MILD PAIN(1-3)OR ELEVATED TEMP Last administered on 07/14/18at 21:04; Admin Dose 650 MG; Start 07/14/18 at 21:00 Bumetanide (Bumex) 1 mg DAILY PO Last administered on 07/16/18at 08:49; Admin Do se 1 MG; Start 07/15/18 at 09:00 Piperacillin Sod/ Tazobactam Sod 100 ml @ 200 mls/hr Q6 IVPB Last administered on 07/16/18at 18:08; Admin Dose 200 MLS/HR; Start 07/15/18 at 10:30 Warfarin Sodium (Coumadin) 6 mg DAILY@17 PO Last administered on 07/16/18at 18:08; Admin Dose 6 MG; Start 07/15/18 at 17:00 SHARI CROWELL M.D. Jul 16, 2018 21:28
--- NOTE | 2018-07-16 22:17 | CONS ---
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 On the report, contrast material was identified within the vaginal canal; however, according to Dr. Ashford, this does not represent a fistulous tract between urethra and vagiina - Mensah was exchanged on 07/12/2018 and 07/14/2018 because her older catheter was leaking - s/p UTI due to hafnai alvei and pediococci on 06/30/18. Pt completed pip/tazo (07/02/18-07/05/2018) - S/p UTI due to E. coli. 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, s/p covered stent placement 6 x 100 mm right common femoral artery and right external iliac artery, abdominal aortogram, catheter introduction to the abdominal aorta, JOSÉ MIGUEL guidance into the central artery 06/02/2018 - S/p retroperitoneal bleed - S/p acute anemia requiring PRBC # endo - Hyperlipidemia - Hypothyroidism recommendations: - pending results: cultures of urine and blood on 07/15/2018 - I instructed Pt's RN to collect an earlier sample of urine for urinalysis - continue empiric pip/tazo (07/15/2018-) - management d/w Pt with Pt's RN Andrew, serving as an correction officer supervisor as well Consultation Date/Type/Reason Admit Date/Time May 28, 2018 at 17:52 Initial Consult Date 06/03/18 Type of Consult ID Requesting Provider: JULY VALENTIN MD Date/Time of Note DATE: 07/16/18 TIME: 22:11 24 HR Interval Summary Constitutional: no complaints Detailed Summary Eyes: no complaints ENT: no complaints Respiratory: no complaints Cardiovascular: no complaints Gastrointestinal: no complaints Genitourinary: other (FC, pain in R side of the bladder) Musculoskeletal: no complaints Skin: no complaints Neurologic: no complaints Exam/Review of Systems Exam Vitals Vital Signs Date Temp Pulse Resp B/P (MAP) Pulse Ox O2 O2 Flow FiO2 Time Delivery Rate 07/16/18 99 20:00 07/16/18 99.1 18 122/59 96 20:00 (80) 07/15/18 Room Air 15:02 Intake and Output 07/15/18 07/15/18 07/16/18 1515:00 23:00 07:00 IntakeIntake Total 880 ml 500 ml OutputOutput Total 1450 ml 1450 ml BalanceBalance -570 ml -950 ml Constitutional: frail Psych: no complaints, nl mood/affect Head: normocephalic, atraumatic Eyes: nl conjunctiva, nl lids ENMT: nl external ears & nose, nl nasal mucosa & septum Neck: other (not swollen) Respiratory: other (normal resp effort) Cardiovascular: No edema Gastrointestinal: No distended Genitourinary - Female: other (FC) Musculoskeletal: nl extremities to inspection Extremities: No edema Neurological: PROVIDER EDUCATION SPECIALIST II-XII intact, nl mental status, nl speech Results Result Diagram: 07/15/18 0533 07/16/18 0623 Results 24hrs Laboratory Tests Test 07/16/18 06:23 Prothrombin Time 21.7 H Prothrombin Time Ratio 1.7 INR International Normalized Ratio 1.88 Sodium Level 138 Potassium Level 3.3 L Chloride Level 101 Carbon Dioxide Level 32 H Anion Gap 5 Blood Urea Nitrogen 20 Creatinine 0.70 Est Glomerular Filtrat Rate mL/min > 60 Glucose Level 102 Calcium Level 8.5 Phosphorus Level 3.9 Magnesium Level 1.8 Medications Medication Current Medications Levothyroxine Sodium (Synthroid) 50 mcg BEFORE BREAKFAST PO Last administered on 07/16/18 06:03; Admin Dose 50 MCG; Start 05/30/18 at 07:00 Mometasone Furoate (Asmanex) 1 puff DAILY INH Last administered on 07/16/18 08:50; Admin Dose 1 PUFF; Start 05/29/18 at 11:00 Atorvastatin Calcium (Lipitor) 10 mg DAILY@21 PO Last administered on 07/16/18 21:06; Admin Dose 10 MG; Start 05/29/18 at 21:00 Latanoprost (Xalatan) 1 drop HS BOTH EYES Last administered on 07/16/18 21:10; Admin Dose 1 DROP; Start 06/01/18 at 21:00 Amlodipine Besylate (Norvasc) 5 mg DAILY PO ; Start 06/03/18 at 09:00; Status Hold Pantoprazole (Protonix Tab) 40 mg DAILY@06 PO Last administered on 07/16/18 05:43; Admin Dose 40 MG; Start 06/05/18 at 06:00 Metoclopramide HCl (Reglan) 5 mg TID PRN IV Nausea; Start 06/06/18 at 11:00 Polyethylene Glycol (Miralax) 17 gm BID PRN PO CONSTIPATION; Start 06/06/18 at 14:00 Bisacodyl (Dulcolax Supp) 10 mg DAILY PRN [place] CONSTIPATION; Start 06/06/18 at 14:00 IV Flush (NS 10 ml) 10 ml PRN PRN IV IV PROTOCOL; Start 06/06/18 at 16:00 Nystatin (Nystatin Susp) 5 ml QID PO Last administered on 07/16/18 21:07; Admin Dose 5 ML; Start 06/06/18 at 17:00 Docusate Sodium (Colace) 100 mg DAILY PRN PO CONSTIPATION; Start 06/21/18 at 12:00 [facility] This patient gomes... PRN PRN XX WOUND CARE; Start 06/21/18 at 16:00 Amiodarone HCl (Cordarone) 200 mg BID PO Last administered on 07/16/18 21:06; Admin Dose 200 MG; Start 06/22/18 at 21:00 Ferrous Sulfate (Ferrous Sulfate (Ec)) 325 mg BID PO Last administered on 07/16/18 21:06; Admin Dose 325 MG; Start 07/09/18 at 09:30 Docusate Sodium (Colace) 100 mg DAILY PO Last administered on 07/16/18 08:49; Admin Dose 100 MG; Start 07/10/18 at 09:00 Miscellaneous Information (*Order Clarification Bulletin) PLEASE CLARIFY WITH MDAntonio.. Q8H XX ; Start 07/13/18 at 11:00 Acetaminophen (Tylenol Tab) 650 mg Q6H PRN PO MILD PAIN(1-3)OR ELEVATED TEMP Last administered on 07/14/18 21:04; Admin Dose 650 MG; Start 07/14/18 at 21:00 Bumetanide (Bumex) 1 mg DAILY PO Last administered on 07/16/18 08:49; Admin Dose 1 MG; Start 07/15/18 at 09:00 Piperacillin Sod/ Tazobactam Sod 100 ml @ 200 mls/hr Q6 IVPB Last administered on 07/16/18 18:08; Admin Dose 200 MLS/HR; Start 07/15/18 at 10:30 Warfarin Sodium (Coumadin) 6 mg DAILY@17 PO Last administered on 07/16/18 18:08; Admin Dose 6 MG; Start 07/15/18 at 17:00 SHARI CROWELL M.D. Jul 16, 2018 22:17
[2018-07-17] VITALS (9 sets, daily range): BP systolic 112–133; BP diastolic 57–63; PULSE 88–125; RESP 17–18
[2018-07-17] MEDS: PIPER-TAZO 3.375 GM IV (PMX) 100 ML IVPB SCH ×4 (00:04→18:04)
[2018-07-17] MEDS: PANTOPRAZOLE (EC) 40 MG TAB PO SCH (05:36)
[2018-07-17] MEDS: LEVOTHYROXINE 50 MCG TAB PO SCH (06:16)
[2018-07-17] MEDS: MOMETASONE 0.24 GM INHALER INH SCH (08:33)
[2018-07-17] MEDS: NYSTATIN SUSP 5 ML CUP PO SCH ×4 (08:33→21:14)
[2018-07-17] MEDS: DOCUSATE SODIUM 100 MG CAP PO SCH (08:34)
[2018-07-17] MEDS: BUMETANIDE 1 MG TAB PO SCH (08:34)
[2018-07-17] MEDS: FERROUS SULFATE (EC) 325 MG TAB PO SCH ×2 (08:34→21:15)
[2018-07-17] MEDS: AMIODARONE 200 MG TAB PO SCH ×2 (08:34→21:14)
--- NOTE | 2018-07-17 12:28 | PN ---
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 Continue Mensah, monitor. Dr. Ashford is following in urology consultation. -Anemia of acute blood loss, transfuse PRN, monitor H&H. -S/p UTI, completed treatment with Zosyn. Dr. Castellanos is following in infection disease consultation. 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 -S/p Nose/oropharyngeal bleed on 06/11/2018, stopped after heparin was held. -Retroperitoneal bleed secondary to vascular injury status post stent placement. S/p CT guided placement of drainage catheter into pelvic hematoma on 06/05/18 and sequent removal. -Status post left heart catheterization with no significant obstructive coronary artery disease by Dr. Moreno on 05/27/2018. -Anemia of acute blood loss, status post blood transfusion, continue to monitor hemoglobin and hematocrit. -Urinary incontinence. -Acute illness myopathy -Status post mitral valve replacement with mechanical valve in 1999 in [facility]. Continue Coumadin, monitor PT/INR. -HTN, continue metoprolol -Hyperlipidemia -Hypothyroidism, continue levothyroxine -History of asthma Result Diagram: 07/15/18 0533 07/16/18 0623 Results 24hrs Laboratory Tests Test 07/17/18 05:52 Prothrombin Time 24.4 H Prothrombin Time Ratio 1.9 INR International Normalized Ratio 2.19 Subjective 24 Hr Interval Summary Free Text/Dictation Patient appears comfortable Exam/Review of Systems Exam Vitals Vital Signs Date Temp Pulse Resp B/P (MAP) Pulse Ox O2 O2 Flow FiO2 Time Delivery Rate 07/17/18 98.4 95 18 133/63 98 11:40 (86) 07/15/18 Room Air 15:02 Intake and Output 07/16/18 07/16/18 07/17/18 1414:59 22:59 06:59 IntakeIntake Total 100 ml 900 ml 800 ml OutputOutput Total 1400 ml 1150 ml BalanceBalance 100 ml -500 ml -350 ml Constitutional: well developed Head: normocephalic, atraumatic Neck: supple Respiratory: clear to auscultation Cardiovascular: regular rate and rhythm Gastrointestinal: soft, non-tender Extremities: normal pulses Results Results 24hrs Laboratory Tests Test 07/17/18 05:52 Prothrombin Time 24.4 H Prothrombin Time Ratio 1.9 INR International Normalized Ratio 2.19 Medications Medication Current Medications Levothyroxine Sodium (Synthroid) 50 mcg BEFORE BREAKFAST PO Last administered on 07/17/18 06:16; Admin Dose 50 MCG; Start 05/30/18 at 07:00 Mometasone Furoate (Asmanex) 1 puff DAILY INH Last administered on 07/17/18 08 :33; Admin Dose 1 PUFF; Start 05/29/18 at 11:00 Atorvastatin Calcium (Lipitor) 10 mg DAILY@21 PO Last administered on 07/16/18at 21:06; Admin Dose 10 MG; Start 05/29/18 at 21:00 Latanoprost (Xalatan) 1 drop HS BOTH EYES Last administered on 07/16/18 21:10; Admin Dose 1 DROP; Start 06/01/18 at 21:00 Amlodipine Besylate (Norvasc) 5 mg DAILY PO ; Start 06/03/18 at 09:00; Status Hold Pantoprazole (Protonix Tab) 40 mg DAILY@06 PO Last administered on 07/17/18at 05:36; Admin Dose 40 MG; Start 06/05/18 at 06:00 Metoclopramide HCl (Reglan) 5 mg TID PRN IV Nausea; Start 06/06/18 at 11:00 Polyethylene Glycol (Miralax) 17 gm BID PRN PO CONSTIPATION; Start 06/06/18 at 14:00 Bisacodyl (Dulcolax Supp) 10 mg DAILY PRN [place] CONSTIPATION; Start 06/06/18 at 14:00 IV Flush (NS 10 ml) 10 ml PRN PRN IV IV PROTOCOL; Start 06/06/18 at 16:00 Nystatin (Nystatin Susp) 5 ml QID PO Last administered on 07/17/18 08:33; Admin Dose 5 ML; Start 06/06/18 at 17:00 Docusate Sodium (Colace) 100 mg DAILY PRN PO CONSTIPATION; Start 06/21/18 at 12:00 Miscellaneous Information (Pending [facility] Order For Wound Care) This patient gomes... PRN PRN XX WOUND CARE; Start 06/21/18 at 16:00 Amiodarone HCl (Cordarone) 200 mg BID PO Last administered on 07/17/18 08:34; Admin Dose 200 MG; Start 06/22/18 at 21:00 Ferrous Sulfate (Ferrous Sulfate (Ec)) 325 mg BID PO Last administered on 07/17/18 08:34; Admin Dose 325 MG; Start 07/09/18 at 09:30 Docusate Sodium (Colace) 100 mg DAILY PO Last administered on 07/17/18 08:34; Admin Dose 100 MG; Start 07/10/18 at 09:00 Miscellaneous Information (*Order Clarification Bulletin) PLEASE CLARIFY WITH MD... Q8H XX ; Start 07/13/18 at 11:00 Acetaminophen (Tylenol Tab) 650 mg Q6H PRN PO MILD PAIN(1-3)OR ELEVATED TEMP Last administered on 07/14/18 21:04; Admin Dose 650 MG; Start 07/14/18 at 21:00 Bumetanide (Bumex) 1 mg DAILY PO Last administered on 07/17/18 08:34; Admin Dose 1 MG; Start 07/15/18 at 09:00 Piperacillin Sod/ Tazobactam Sod 100 ml @ 200 mls/hr Q6 IVPB Last administered on 07/17/18 12:02; Admin Dose 200 MLS/HR; Start 07/15/18 at 10:30 Warfarin Sodium (Coumadin) 6 mg DAILY@17 PO Last administered on 07/16/18 18:08; Admin Dose 6 MG; Start 07/15/18 at 17:00 ABDIRASHID PRATHER Jul 17, 2018 12:28
[2018-07-17] MEDS ORDERED: POTASSIUM CHLORIDE (SR) 20 MEQ TAB PO STA (12:54)
--- NOTE | 2018-07-17 12:55 | CONS ---
Assessment/Plan Assessment/Plan Assessment/Plan (Daily) 1. Nonoliguric acute kidney injury with previously normal baseline creatinine. Etiology of FORREST is secondary to acute tubular necrosis. Renal function is improved. Continue current treatment plan, supportive care and renally dose all meds, monitor closely on diuretic therapy. 2. 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 The patient's hematuria has been improving. Continue to monitor. 3. Volume overload. The patient is clinically improving. cont bumex po, mo nitor renal function, electrolytes closely. 4. Hypokalemia. We will replete with potassium chloride. 5. Anemia. Monitor hemoglobin and hematocrit levels. 6. Mechanical heart valve. Continue anticoagulation per cardiology. 7. Sepsis secondary to urinary tract infection. The patient is to continue the antibiotic course. 8. Hypothyroidism. Continue Synthroid. 9. Dyslipidemia. Continue statin therapy. 10. Hypertension. Continue current blood pressure regimen. 11. Urinary tract infection. 12. Liver cirrhosis. Continue medical management. 13. Intraabdominal hematoma. Consultation Date/Type/Reason Admit Date/Time May 28, 2018 at 17:52 Initial Consult Date 06/03/18 Requesting Provider: JULY VALENTIN MD Date/Time of Note DATE: 07/17/18 TIME: 12:55 24 HR Interval Summary Free Text/Dictation comfortable. no shortness of breath or n/v d/w rn gen nad cv rrr pulm ctab Abd soft, nd, nt +bs ext: no edema Exam/Review of Systems Exam Vitals Vital Signs Date Temp Pulse Resp B/P (MAP) Pulse Ox O2 O2 Flow FiO2 Time Delivery Rate 07/17/18 98.4 95 18 133/63 98 11:40 (86) 07/15/18 Room Air 15:02 Intake and Output 07/16/18 07/16/18 07/17/18 1515:00 23:00 07:00 IntakeIntake Total 100 ml 900 ml 800 ml OutputOutput Total 1400 ml 1150 ml BalanceBalance 100 ml -500 ml -350 ml Results Result Diagram: 07/15/18 0533 07/16/18 0623 Results 24hrs Laboratory Tests Test 07/17/18 05:52 Prothrombin Time 24.4 H Prothrombin Time Ratio 1.9 INR International Normalized Ratio 2.19 Medications Medication Current Medications Levothyroxine Sodium (Synthroid) 50 mcg BEFORE BREAKFAST PO Last administered on 07/17/18 06:16; Admin Dose 50 MCG; Start 05/30/18 at 07:00 Mometasone Furoate (Asmanex) 1 puff DAILY INH Last administered on 07/17/18 08:33; Admin Dose 1 PUFF; Start 05/29/18 at 11:00 Atorvastatin Calcium (Lipitor) 10 mg DAILY@21 PO Last administered on 07/16/18 21:06; Admin Dose 10 MG; Start 05/29/18 at 21:00 Latanoprost (Xalatan) 1 drop HS BOTH EYES Last administered on 07/16/18 21:10; Admin Dose 1 DROP; Start 06/01/18 at 21:00 Amlodipine Besylate (Norvasc) 5 mg DAILY PO ; Start 06/03/18 at 09:00; Status Hold Pantoprazole (Protonix Tab) 40 mg DAILY@06 PO Last administered on 07/17/18 05:36; Admin Dose 40 MG; Start 06/05/18 at 06:00 Metoclopramide HCl (Reglan) 5 mg TID PRN IV Nausea; Start 06/06/18 at 11:00 Polyethylene Glycol (Miralax) 17 gm BID PRN PO CONSTIPATION; Start 06/06/18 at 14:00 Bisacodyl (Dulcolax Supp) 10 mg DAILY PRN [place] CONSTIPATION; Start 06/06/18 at 14:00 IV Flush (NS 10 ml) 10 ml PRN PRN IV IV PROTOCOL; Start 06/06/18 at 16:00 Nystatin (Nystatin Susp) 5 ml QID PO Last administered on 07/17/18 12:30; Admin Dose 5 ML; Start 06/06/18 at 17:00 Docusate Sodium (Colace) 100 mg DAILY PRN PO CONSTIPATION; Start 06/21/18 at 12:00 [facility] This patient gomes... PRN PRN XX WOUND CARE; Start 06/21/18 at 16:00 Amiodarone HCl (Cordarone) 200 mg BID PO Last administered on 07/17/18 08:34; Admin Dose 200 MG; Start 06/22/18 at 21:00 Ferrous Sulfate (Ferrous Sulfate (Ec)) 325 mg BID PO Last administered on 07/17/18 08:34; Admin Dose 325 MG; Start 07/09/18 at 09:30 Docusate Sodium (Colace) 100 mg DAILY PO Last administered on 07/17/18 08:34; Admin Dose 100 MG; Start 07/10/18 at 09:00 Miscellaneous Information (*Order Clarification Bulletin) PLEASE CLARIFY WITH ... Q8H XX ; Start 07/13/18 at 11:00 Acetaminophen (Tylenol Tab) 650 mg Q6H PRN PO MILD PAIN(1-3)OR ELEVATED TEMP Last administered on 07/14/18 21:04; Admin Dose 650 MG; Start 07/14/18 at 21:00 Bumetanide (Bumex) 1 mg DAILY PO Last administered on 07/17/18 08:34; Admin Dose 1 MG; Start 07/15/18 at 09:00 Piperacillin Sod/ Tazobactam Sod 100 ml @ 200 mls/hr Q6 IVPB Last administered on 07/17/18 12:02; Admin Dose 200 MLS/HR; Start 07/15/18 at 10:30 Warfarin Sodium (Coumadin) 6 mg DAILY@17 PO Last administered on 07/16/18 18:08; Admin Dose 6 MG; Start 07/15/18 at 17:00 ALTA BUSTAMANTE MD Jul 17, 2018 12:55
--- NOTE | 2018-07-17 14:23 | CONS ---
Assessment/Plan Assessment/Plan Hospital Course (Demo Recall) IMP: 1.cad s/p LHC with no sig obstructive cad. Mildly depressed LVEF--40-45% ? nonischemic process 2.HTN 3.RP Bleed s/p transfusions now stable and tolerating heparin/coumadin loading. Then had recurrent bled overnight now s/p covered stent to CAN CARRIER/Ext iliac. Stable collection by abd CT 06/06 but still with pigtail catheter in place 4.HL 5.MVR-mechanical 6.anemia- s/p repair of R CAN CARRIER/illiac. Had hemoptysis with subsequent drop in Hgb again and holding of heparin. Had some mild blood tinged sputum 7.Hypothyroid 8. FOURNIER-negative Head CT 9. Fevers-with positive ua 10. UTI-Being followed by ID and on abx 11.ARF-? Contrast induced/compression from hematoma- now improving with increased urine output and slowly decreasing jumpbasting collar baster 12. Coagulopathy-downtrenede and resumed on couamadin with midly subtherapeutic INR 14. LE weakness-? compression from hematoma and exacerbated by femoral compression after cath-now resolved 15. arterial insuff- LLE- s/p PLATER HOT DIP/thrombolysis 06/04 successfully with palpable pulses/B DP/PT and remain that way 16. PAF/AFL-rate controlled 17. 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 Now decreasing hematuria. s/p pelvic CT revealing ongoing fistula and per urology note was discussed with family 18. Epistaxis-improved/resolved. no recurrence 19. 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 ? new , ? etiology. Urology following and per his note has discussed treatment options with family including surgical versus waiting and thought that waiting would be best at this time Recc: -Now on tele -Continue BB with well controlled Hr's -Continue statin -s/p course of abx's -ongoing ID f/u -F/U jumpbasting collar baster/K closely with creatnine now normalized and volume status improving on bumex bid. Will also assess patient's PO intake and possible contribution to volume overload -Follow HGb closely which has been stable to improved actually -PT/ambulation- doing 3x/day -will continue amio bid for now and follow rhythm clsoely with patient having episodes of PAF/AFL but always rate controlled -Urology following with findings of apparent bladder fistula and thus draining of the hematoma through the bladder causing hematuria which has improved and now apparent bladder-vaginal fistula.Continue to follow hematuria for complete resolution and assess need for spontaneous closure versus need for repair which has been discussed with family and urology and between them as well. -Now back on coumadin with therapeutic INR -Continue current bumex now BID PO with improved volume status Consultation Date/Type/Reason Admit Date/Time May 28, 2018 at 17:52 Initial Consult Date 05/28/18 Type of Consult Cardiology Reason for Consultation MVR Requesting Provider: JULY VALENTIN MD Date/Time of Note DATE: 07/17/18 TIME: 14:20 Exam/Review of Systems Vital Signs Vitals Vital Signs Date Temp Pulse Resp B/P (MAP) Pulse Ox O2 O2 Flow FiO2 Time Delivery Rate 07/17/18 93 12:00 07/17/18 98.4 18 133/63 98 11:40 (86) 07/15/18 Room Air 15:02 Intake and Output 07/16/18 07/16/18 07/17/18 1515:00 23:00 07:00 IntakeIntake Total 100 ml 900 ml 800 ml OutputOutput Total 1400 ml 1150 ml BalanceBalance 100 ml -500 ml -350 ml Exam Exam Review of Systems: CONSTITUTIONAL: No fevers, chills. PULMONARY: No sob CARDIOVASCULAR: No chest pain/palpitations GASTROINTESTINAL: No nausea/vomiting. GENITOURINARY: No hematuria/dysuria. MUSCULOSKELETAL: No myagias/arthalgias. PSYCHIATRIC: The patient denies depression. NEUROLOGIC: No weakness Constitutional: alert Psych: no complaints Head: normocephalic ENMT: mucosa pink and moist Neck: supple, jvd (9 cm water) Respiratory: diminished breath sounds Cardiovascular: regular rate and rhythm Gastrointestinal: soft, non-tender Musculoskeletal: muscle tone (normal) Extremities: edema (none) Neurological: other Labs Result Diagram: 07/15/18 0533 07/16/18 0623 Results 24hrs Laboratory Tests Test 07/17/18 05:52 Prothrombin Time 24.4 H Prothrombin Time Ratio 1.9 INR International Normalized Ratio 2.19 Medications Medications Current Medications Levothyroxine Sodium (Synthroid) 50 mcg BEFORE BREAKFAST PO Last administered on 07/17/18 06:16; Admin Dose 50 MCG; Start 05/30/18 at 07:00 Mometasone Furoate (Asmanex) 1 puff DAILY INH Last administered on 07/17/18 08:33; Admin Dose 1 PUFF; Start 05/29/18 at 11:00 Atorvastatin Calcium (Lipitor) 10 mg DAILY@21 PO Last administered on 07/16/18 21:06; Admin Dose 10 MG; Start 05/29/18 at 21:00 Latanoprost (Xalatan) 1 drop HS BOTH EYES Last administered on 07/16/18 21:10; Admin Dose 1 DROP; Start 06/01/18 at 21:00 Amlodipine Besylate (Norvasc) 5 mg DAILY PO ; Start 06/03/18 at 09:00; Status Hold Pantoprazole (Protonix Tab) 40 mg DAILY@06 PO Last administered on 07/17/18 05:36; Admin Dose 40 MG; Start 06/05/18 at 06:00 Metoclopramide HCl (Reglan) 5 mg TID PRN IV Nausea; Start 06/06/18 at 11:00 Polyethylene Glycol (Miralax) 17 gm BID PRN PO CONSTIPATION; Start 06/06/18 at 14:00 Bisacodyl (Dulcolax Supp) 10 mg DAILY PRN [place] CONSTIPATION; Start 06/06/18 at 14:00 IV Flush (NS 10 ml) 10 ml PRN PRN IV IV PROTOCOL; Start 06/06/18 at 16:00 Nystatin (Nystatin Susp) 5 ml QID PO Last administered on 07/17/18 12:30; Admin Dose 5 ML; Start 06/06/18 at 17:00 Docusate Sodium (Colace) 100 mg DAILY PRN PO CONSTIPATION; Start 06/21/18 at 12:00 Miscellaneous Information (Pending [facility] Order For Wound Care) This patient fournier... PRN PRN XX WOUND CARE; Start 06/21/18 at 16:00 Amiodarone HCl (Cordarone) 200 mg BID PO Last administered on 07/17/18 08:34; Admin Dose 200 MG; Start 06/22/18 at 21:00 Ferrous Sulfate (Ferrous Sulfate (Ec)) 325 mg BID PO Last administered on 07/17/18 08:34; Admin Dose 325 MG; Start 07/09/18 at 09:30 Docusate Sodium (Colace) 100 mg DAILY PO Last administered on 07/17/18 08:34; Admin Dose 100 MG; Start 07/10/18 at 09:00 Miscellaneous Information (*Order Clarification Bulletin) PLEASE CLARIFY WITH MD Gramajo. Q8H XX ; Start 07/13/18 at 11:00 Acetaminophen (Tylenol Tab) 650 mg Q6H PRN PO MILD PAIN(1-3)OR ELEVATED TEMP Last administered on 07/14/18at 21:04; Admin Dose 650 MG; Start 07/14/18 at 21:00 Bumetanide (Bumex) 1 mg DAILY PO Last administered on 07/17/18 08:34; Admin Dose 1 MG; Start 07/15/18 at 09:00 Piperacillin Sod/ Tazobactam Sod 100 ml @ 200 mls/hr Q6 IVPB Last administered on 07/17/18at 12:02; Admin Dose 200 MLS/HR; Start 07/15/18 at 10:30 Warfarin Sodium (Coumadin) 6 mg DAILY@17 PO Last administered on 07/16/18 18:08; Admin Dose 6 MG; Start 07/15/18 at 17:00 CHRIS LAZAR Jul 17, 2018 14:23
--- NOTE | 2018-07-17 16:39 | CONS ---
Assessment/Plan Assessment/Plan Hospital Course (Demo Recall) # sepsis, cardiopulmonary - s/p severe sepsis due to UTI, resolved - s/p SIRS due to acute blood loss, resolved - s/p L heart catheterization on 05/27/2018 showing no significant obstructive CAD - CAD - s/p CABG in [place] in 1982 - H/o MVR with mechanical valve, in 1999 - Hypertension - PAF - Asthma # urology/renal, GI - recurrent UTI due to citrobacter, another strain of Gram negative bacteria and enterococci; on pip/tazo - hematuria caused by ruptured urinary bladder (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 On the report, contrast material was identified within the vaginal canal; however, according to Dr. Ashford, this does not represent a fistulous tract between urethra and vagina - Vincent was exchanged on 07/12/2018 and 07/14/2018 because her older catheter was leaking - s/p UTI due to hafnai alvei and pediococci on 06/30/18. Pt completed pip/tazo (07/02/18-07/05/2018) for this episode - S/p UTI due to E. coli. Pt completed pip/tazo (06/02/2018-06/03/2018), ceftriaxone (06/04/2018-06/07/2018) for this episode - S/p CT guided placement of drainage catheter into pelvic hematoma 06/05/2018-- >removed on 06/09/2018 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, s/p covered stent placement 6 x 100 mm right common femoral artery and right external iliac artery, abdominal aortogram, catheter introduction to the abdominal aorta, JOSÉ MIGUEL guidance into the central artery 06/02/2018 - S/p retroperitoneal bleed - S/p acute anemia requiring PRBC # endo - Hyperlipidemia - Hypothyroidism recommendations: - pending results: final culture of urine on 07/15/2018 - continue pip/tazo (07/15/2018-) - management d/w Pt and her via an Azeri-Congolese translation iman Consultation Date/Type/Reason Admit Date/Time May 28, 2018 at 17:52 Initial Consult Date 06/03/18 Type of Consult ID Requesting Provider: JULY VALENTIN MD Date/Time of Note DATE: 07/17/18 TIME: 16:30 24 HR Interval Summary Constitutional: other (feeling better, walked) Detailed Summary Eyes: no complaints Respiratory: no complaints Cardiovascular: no complaints Gastrointestinal: no complaints Genitourinary: other (less hematuria, +vincent catheter) Musculoskeletal: no complaints Skin: no complaints Neurologic: no complaints Exam/Review of Systems Exam Vitals Vital Signs Date Temp Pulse Resp B/P (MAP) Pulse Ox O2 O2 Flow FiO2 Time Delivery Rate 07/17/18 98.8 100 17 113/59 96 15:44 (77) 07/15/18 Room Air 15:02 Intake and Output 07/16/18 07/16/18 07/17/18 1515:00 23:00 07:00 IntakeIntake Total 100 ml 900 ml 800 ml OutputOutput Total 1400 ml 1150 ml BalanceBalance 100 ml -500 ml -350 ml Constitutional: alert, oriented, well developed Psych: no complaints, nl mood/affect Head: normocephalic, atraumatic Eyes: nl conjunctiva, nl lids, nl sclera ENMT: nl external ears & nose, nl nasal mucosa & septum, mucosa pink and moist Neck: other (not swollen) Respiratory: normal air movement Cardiovascular: No edema Gastrointestinal: No distended Genitourinary - Female: other (FC, no hematuria by gross inspection) Musculoskeletal: No swelling Extremities: No edema Neurological: LEATHER GOODS II ASSEMBLER II-XII intact, nl mental status, nl speech Skin: No rash or lesions Results Result Diagram: 07/15/18 0533 07/16/18 0623 Results 24hrs Laboratory Tests Test 07/17/18 05:52 Prothrombin Time 24.4 H Prothrombin Time Ratio 1.9 INR International Normalized Ratio 2.19 Medications Medication Current Medications Levothyroxine Sodium (Synthroid) 50 mcg BEFORE BREAKFAST PO Last administered on 07/17/18at 06:16; Admin Dose 50 MCG; Start 05/30/18 at 07:00 Mometasone Furoate (Asmanex) 1 puff DAILY INH Last administered on 07/17/18 08:33; Admin Dose 1 PUFF; Start 05/29/18 at 11:00 Atorvastatin Calcium (Lipitor) 10 mg DAILY@21 PO Last administered on 07/16/18 21:06; Admin Dose 10 MG; Start 05/29/18 at 21:00 Latanoprost (Xalatan) 1 drop HS BOTH EYES Last administered on 07/16/18 21:10; Admin Dose 1 DROP; Start 06/01/18 at 21:00 Amlodipine Besylate (Norvasc) 5 mg DAILY PO ; Start 06/03/18 at 09:00; Status Hold Pantoprazole (Protonix Tab) 40 mg DAILY@06 PO Last administered on 07/17/18 05:36; Admin Dose 40 MG; Start 06/05/18 at 06:00 Metoclopramide HCl (Reglan) 5 mg TID PRN IV Nausea; Start 06/06/18 at 11:00 Polyethylene Glycol (Miralax) 17 gm BID PRN PO CONSTIPATION; Start 06/06/18 at 14:00 Bisacodyl (Dulcolax Supp) 10 mg DAILY PRN [place] CONSTIPATION; Start 06/06/18 at 14:00 IV Flush (NS 10 ml) 10 ml PRN PRN IV IV PROTOCOL; Start 06/06/18 at 16:00 Nystatin (Nystatin Susp) 5 ml QID PO Last administered on 07/17/18at 12:30; Admin Dose 5 ML; Start 06/06/18 at 17:00 Docusate Sodium (Colace) 100 mg DAILY PRN PO CONSTIPATION; Start 06/21/18 at 12:00 Miscellaneous Information (Pending [facility] Order For Wound Care) This patient gomes... PRN PRN XX WOUND CARE; Start 06/21/18 at 16:00 Amiodarone HCl (Cordarone) 200 mg BID PO Last administered on 07/17/18 08:34; Admin Dose 200 MG; Start 06/22/18 at 21:00 Ferrous Sulfate (Ferrous Sulfate (Ec)) 325 mg BID PO Last administered on 07/17/18 08:34; Admin Dose 325 MG; Start 07/09/18 at 09:30 Docusate Sodium (Colace) 100 mg DAILY PO Last administered on 07/17/18at 08:34; Admin Dose 100 MG; Start 07/10/18 at 09:00 Miscellaneous Information (*Order Clarification Bulletin) PLEASE CLARIFY WITH ... Q8H XX ; Start 07/13/18 at 11:00 Acetaminophen (Tylenol Tab) 650 mg Q6H PRN PO MILD PAIN(1-3)OR ELEVATED TEMP Last administered on 07/14/18at 21:04; Admin Dose 650 MG; Start 07/14/18 at 21:00 Bumetanide (Bumex) 1 mg DAILY PO Last administered on 07/17/18at 08:34; Admin Dose 1 MG; Start 07/15/18 at 09:00 Piperacillin Sod/ Tazobactam Sod 100 ml @ 200 mls/hr Q6 IVPB Last administered on 07/17/18at 12:02; Admin Dose 200 MLS/HR; Start 07/15/18 at 10:30 Warfarin Sodium (Coumadin) 6 mg DAILY@17 PO Last administered on 07/16/18at 18:08; Admin Dose 6 MG; Start 07/15/18 at 17:00 SHARI CROWELL M.D. Jul 17, 2018 16:39
[2018-07-17] MEDS: WARFARIN 3 MG TAB PO SCH (18:04)
[2018-07-17] MEDS: ATORVASTATIN 10 MG TAB PO SCH (21:14)
[2018-07-17] MEDS: LATANOPROST 0.005% 2.5 ML OPH BOTH EYES SCH (21:14)
[2018-07-18] VITALS (9 sets, daily range): BP systolic 112–131; BP diastolic 6–69; PULSE 90–110; RESP 18–20
[2018-07-18] MEDS: PIPER-TAZO 3.375 GM IV (PMX) 100 ML IVPB SCH ×2 (00:02→05:26)
[2018-07-18] MEDS: PANTOPRAZOLE (EC) 40 MG TAB PO SCH (05:27)
[2018-07-18] MEDS: LEVOTHYROXINE 50 MCG TAB PO SCH (06:24)
--- NOTE | 2018-07-18 08:01 | CONS ---
Assessment/Plan Assessment/Plan Hospital Course (Demo Recall) 62 yo female Interval hx: Tolerating regular diet. No nausea or abdominal pain. BM brown and soft. No evidence of GI bleeding. HH stable. 1. 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 -Neg hepatitis panel -Antimitochondrial antibody, anti-smooth muscle antibody negative, ceruplasmin wnl. 2. Coronary artery disease, nonobstructive, with ejection fraction of 40 to 45%, nonischemic. 3. Hypertension. 4. Retroperitoneal bleed. 5. Mitral valve replacement due to mechanical mitral valve. 6. Hypothyroidism. 7. Urinary tract infection. 8. Paroxysmal atrial fibrillation, rate is controlled. 9. Hematuria. 10. Status post rupture of the urinary bladder. 11. Epistaxis -resolved 12. Positive stool guaiac may be from epistaxis 13. Coagulopathy- pt on coumadin 14. Leukopenia Plan We will follow as needed. Please let Dr. Cruz know if there are any issues in the interim Monitor LFT Monitor HH and for signs of GI bleeding Follow up with Dr. Cruz as outpatient Pt examined and plan of care discussed with Dr. Cruz Consultation Date/Type/Reason Admit Date/Time May 28, 2018 at 17:52 Initial Consult Date 06/03/18 Requesting Provider: JULY VALENTIN MD Date/Time of Note DATE: 07/18/18 TIME: 07:59 Exam/Review of Systems Exam Vitals Vital Signs Date Temp Pulse Resp B/P (MAP) Pulse Ox O2 O2 Flow FiO2 Time Delivery Rate 07/18/18 98.0 94 20 112/58 96 Room Air 07:12 (76) Intake and Output 07/17/18 07/17/18 07/18/18 1515:00 23:00 07:00 IntakeIntake Total 1000 ml 1000 ml OutputOutput Total 1350 ml 1000 ml BalanceBalance -350 ml 0 ml Constitutional: alert, oriented Psych: no complaints Head: normocephalic Eyes: PERRL ENMT: mucosa pink and moist Respiratory: clear to auscultation Cardiovascular: regular rate and rhythm Gastrointestinal: soft, non-tender Musculoskeletal: nl extremities to inspection Extremities: normal pulses Neurological: nl mental status Results Result Diagram: 07/15/18 0533 07/16/18 0623 Results 24hrs Laboratory Tests Test 07/18/18 05:30 Prothrombin Time 26.8 H Prothrombin Time Ratio 2.1 INR International Normalized Ratio 2.47 Medications Medication Current Medications Levothyroxine Sodium (Synthroid) 50 mcg BEFORE BREAKFAST PO Last administered on 07/18/18 06:24; Admin Dose 50 MCG; Start 05/30/18 at 07:00 Mometasone Furoate (Asmanex) 1 puff DAILY INH Last administered on 07/17/18 08:33; Admin Dose 1 PUFF; Start 05/29/18 at 11:00 Atorvastatin Calcium (Lipitor) 10 mg DAILY@21 PO Last administered on 07/17/18 21:14; Admin Dose 10 MG; Start 05/29/18 at 21:00 Latanoprost (Xalatan) 1 drop HS BOTH EYES Last administered on 07/17/18 21:14; Admin Dose 1 DROP; Start 06/01/18 at 21:00 Amlodipine Besylate (Norvasc) 5 mg DAILY PO ; Start 06/03/18 at 09:00; Status Hold Pantoprazole (Protonix Tab) 40 mg DAILY@06 PO Last administered on 07/18/18 05:27; Admin Dose 40 MG; Start 06/05/18 at 06:00 Metoclopramide HCl (Reglan) 5 mg TID PRN IV Nausea; Start 06/06/18 at 11:00 Polyethylene Glycol (Miralax) 17 gm BID PRN PO CONSTIPATION; Start 06/06/18 at 14:00 Bisacodyl (Dulcolax Supp) 10 mg DAILY PRN [place] CONSTIPATION; Start 06/06/18 at 14:00 IV Flush (NS 10 ml) 10 ml PRN PRN IV IV PROTOCOL; Start 06/06/18 at 16:00 Nystatin (Nystatin Susp) 5 ml QID PO Last administered on 07/17/18 21:14; Admin Dose 5 ML; Start 06/06/18 at 17:00 Docusate Sodium (Colace) 100 mg DAILY PRN PO CONSTIPATION; Start 06/21/18 at 12:00 Miscellaneous Information (Pending [facility] Order For Wound Care) This patient gomes... PRN PRN XX WOUND CARE; Start 06/21/18 at 16:00 Amiodarone HCl (Cordarone) 200 mg BID PO Last administered on 07/17/18 21:14; Admin Dose 200 MG; Start 06/22/18 at 21:00 Ferrous Sulfate (Ferrous Sulfate (Ec)) 325 mg BID PO Last administered on 07/17/18 21:15; Admin Dose 325 MG; Start 07/09/18 at 09:30 Docusate Sodium (Colace) 100 mg DAILY PO Last administered on 07/17/18 08:34; Admin Dose 100 MG; Start 07/10/18 at 09:00 Miscellaneous Information (*Order Clarification Bulletin) PLEASE CLARIFY WITH MD... Q8H XX ; Start 07/13/18 at 11:00 Acetaminophen (Tylenol Tab) 650 mg Q6H PRN PO MILD PAIN(1-3)OR ELEVATED TEMP Last administered on 07/14/18 21:04; Admin Dose 650 MG; Start 07/14/18 at 21:00 Bumetanide (Bumex) 1 mg DAILY PO Last administered on 07/17/18 08:34; Admin Dose 1 MG; Start 07/15/18 at 09:00 Piperacillin Sod/ Tazobactam Sod 100 ml @ 200 mls/hr Q6 IVPB Last administered on 07/18/18 05:26; Admin Dose 200 MLS/HR; Start 07/15/18 at 10:30 Warfarin Sodium (Coumadin) 6 mg DAILY@17 PO Last administered on 07/17/18 18:04; Admin Dose 6 MG; Start 07/15/18 at 17:00 BERNARDINO CAR Jul 18, 2018 08:01
--- NOTE | 2018-07-18 08:20 | CONS ---
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 The urine has some sediment in it at times. Results/Medications Result Diagram: 07/15/18 0533 07/16/18 0623 Results 24 hrs Laboratory Tests Test 07/18/18 05:30 Prothrombin Time 26.8 H Prothrombin Time Ratio 2.1 INR International Normalized Ratio 2.47 Home Meds Reported Medications Albuterol Sulfate* (Ventolin HFA*) 18 Gm Hfa.aer.ad, 2 PUFF INHALATION Q4H, #1 INHALER 05/26/18 Ergocalciferol (Vitamin D2) (VITAMIN D2) 50,000 Unit Capsule, 66126 UNIT PO [id number], CAP 05/23/18 Warfarin Sodium* (Coumadin*) 5 Mg Tablet, 5 MG PO Q TU,THUR,SAT, TAB 05/23/18 Warfarin Sodium* (Coumadin*) 4 Mg Tablet, 4 MG PO Q MON,WED,FRI,SUN, TAB 05/23/18 Furosemide* (Furosemide*) 20 Mg Tablet, 20 MG PO DAILY, #60 TAB TAKE Q 2 DAYS 05/23/18 Simvastatin* (Zocor*) 20 Mg Tablet, 20 MG PO QHS, #30 TAB 05/23/18 Ranitidine Hcl* (Ranitidine Hcl*) 150 Mg Tablet, 150 MG PO HS, #30 TAB 05/23/18 Acetaminophen (Mapap) 500 Mg Capsule, 500 MG PO BID PRN for PAIN, CAP 05/23/18 Levothyroxine Sodium* (Levothyroxine Sodium*) 50 Mcg Tablet, 50 MCG PO BEFORE BREAKFAST, #30 TAB 05/23/18 Spironolactone* (Aldactone*) 25 Mg Tablet, 25 MG PO DAILY, #30 TAB 05/23/18 Beclomethasone Dipropionate (Qvar Redihaler (40 MCG)) 10.6 Gm Hfa.aeroba, 10.6 GM IH DAILY, INH 05/23/18 Amlodipine Besylate* (Norvasc*) 5 Mg Tablet, 5 MG PO BID, TAB 05/23/18 Losartan-Hydrochlorothiazide (Losartan-HCTZ) 100-25 Mg Tab, 1 TAB PO DAILY, TAB 05/23/18 Medications Current Medications Levothyroxine Sodium (Synthroid) 50 mcg BEFORE BREAKFAST PO Last administered on 07/18/18at 06:24; Admin Dose 50 MCG; Start 05/30/18 at 07:00 Mometasone Furoate (Asmanex) 1 puff DAILY INH Last administered on 07/17/18at 08:33; Admin Dose 1 PUFF; Start 05/29/18 at 11:00 Atorvastatin Calcium (Lipitor) 10 mg DAILY@21 PO Last administered on 07/17/18at 21:14; Admin Dose 10 MG; Start 05/29/18 at 21:00 Latanoprost (Xalatan) 1 drop HS BOTH EYES Last administered on 07/17/18at 21:14; Admin Dose 1 DROP; Start 06/01/18 at 21:00 Amlodipine Besylate (Norvasc) 5 mg DAILY PO ; Start 06/03/18 at 09:00; Status Hold Pantoprazole (Protonix Tab) 40 mg DAILY@06 PO Last administered on 07/18/18at 05:27; Admin Dose 40 MG; Start 06/05/18 at 06:00 Metoclopramide HCl (Reglan) 5 mg TID PRN IV Nausea; Start 06/06/18 at 11:00 Polyethylene Glycol (Miralax) 17 gm BID PRN PO CONSTIPATION; Start 06/06/18 at 14:00 Bisacodyl (Dulcolax Supp) 10 mg DAILY PRN [place] CONSTIPATION; Start 06/06/18 at 14:00 IV Flush (NS 10 ml) 10 ml PRN PRN IV IV PROTOCOL; Start 06/06/18 at 16:00 Nystatin (Nystatin Susp) 5 ml QID PO Last administered on 07/17/18 21:14; Admin Dose 5 ML; Start 06/06/18 at 17:00 Docusate Sodium (Colace) 100 mg DAILY PRN PO CONSTIPATION; Start 06/21/18 at 12:00 Miscellaneous Information (Pending Santyl Order For Wound Care) This patient gomes... PRN PRN XX WOUND CARE; Start 06/21/18 at 16:00 Amiodarone HCl (Cordarone) 200 mg BID PO Last administered on 07/17/18 21:14; Admin Dose 200 MG; Start 06/22/18 at 21:00 Ferrous Sulfate (Ferrous Sulfate (Ec)) 325 mg BID PO Last administered on 07/17/18 21:15; Admin Dose 325 MG; Start 07/09/18 at 09:30 Docusate Sodium (Colace) 100 mg DAILY PO Last administered on 07/17/18 08:34; Admin Dose 100 MG; Start 07/10/18 at 09:00 Miscellaneous Information (*Order Clarification Bulletin) PLEASE CLARIFY WITH MD... Q8H XX ; Start 07/13/18 at 11:00 Acetaminophen (Tylenol Tab) 650 mg Q6H PRN PO MILD PAIN(1-3)OR ELEVATED TEMP Last administered on 07/14/18 21:04; Admin Dose 650 MG; Start 07/14/18 at 21:00 Bumetanide (Bumex) 1 mg DAILY PO Last administered on 07/17/18 08:34; Admin Dose 1 MG; Start 07/15/18 at 09:00 Piperacillin Sod/ Tazobactam Sod 100 ml @ 200 mls/hr Q6 IVPB Last administered on 07/18/18 05:26; Admin Dose 200 MLS/HR; Start 07/15/18 at 10:30 Warfarin Sodium (Coumadin) 6 mg DAILY@17 PO Last administered on 07/17/18 18:04; Admin Dose 6 MG; Start 07/15/18 at 17:00 Assessment/Plan Hospital Course (Demo Recall) 62-year-old female underwent coronary angiogram. She did have right femoral artery bleeding with a pseudoaneurysm which was managed by undergoing: Covered stent placement 6 x 100 mm right common femoral artery and right external iliac artery The patient had a pelvic hematoma which has fistulized into the bladder. She has a Mensah catheter which was draining bloody urine initially but now the drainage is clear. The size of the hematoma has been decreasing. CT cystogram was done today and that showed: 1. There is a fluid and air collection anterior to the empty urinary bladder measuring approximate 13 cm transverse by 10 cm AP by 6 cm cranial caudal. This is unchanged from the previous study of 07/02/2018. 2. Fistula demonstrated between the urinary bladder and the anterior pelvic fluid collection. The fistulous tract measures 12 mm in diameter. 3. Contrast material is seen within the vaginal canal. 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 The site of fistula appears to be the mid urethra, as demonstrated on sagittal reformatted images. I did talk to the patient with her son and her who were in her room. Explained to them the finding of the CT scan. 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 Discussed the treatment options which include waiting with the hope that the fistula will close by itself with times. And as far as the fistula in the mid urethra since that is distal to the sphincter probably just leave it alone. We discussed options of surgery to drain the suprapubic and pelvic hematoma and closed the bladder. Discussed the risks of infection and the usual risks especially co nsidering her general medical and cardiac condition. I also discussed with them having a second opinion with another urologist. I did review the CT cystogram with another radiologist. 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 As the contrast went into the vagina from the urethra and that was what the radiologist thought it is a fistula. Therefore the patient only has the hematoma on the right side of the bladder with the fistula into the bladder. I again the options are to keep the Mensah catheter in and hope with time the hematoma would resolve and the fistula will close but that may take a long time. Another option would be to operate on her and drained hematoma and closed the fistula. My impression from talking to the patient that she does not want surgery but we will discuss that again JOAQUIN DE LEON MD Jul 18, 2018 08:20
[2018-07-18] MEDS: NYSTATIN SUSP 5 ML CUP PO SCH ×4 (08:25→20:35)
[2018-07-18] MEDS: BUMETANIDE 1 MG TAB PO SCH (08:25)
[2018-07-18] MEDS: FERROUS SULFATE (EC) 325 MG TAB PO SCH ×2 (08:25→20:35)
[2018-07-18] MEDS: DOCUSATE SODIUM 100 MG CAP PO SCH (08:25)
[2018-07-18] MEDS: MOMETASONE 0.24 GM INHALER INH SCH (08:26)
[2018-07-18] MEDS: AMIODARONE 200 MG TAB PO SCH ×2 (08:26→20:36)
--- NOTE | 2018-07-18 08:41 | PN ---
DATE: 07/18/2018 SUBJECTIVE: The patient is stable. No events overnight. The patient's hematuria has resolved. No other events noted. OBJECTIVE: VITAL SIGNS: Blood pressure is 112/58, respirations 20, pulse 74, temperature 98.0. HEENT: Head is normocephalic. NECK: Supple. HEART: Regular rate. LUNGS: Show diminished breath sounds at the base. ABDOMEN: Soft, nontender to palpation without rebound or guarding. EXTREMITIES: Negative for clubbing, cyanosis. Trace edema. DERMATOLOGIC: No rashes. MUSCULOSKELETAL: No joint effusion. NEUROLOGIC: No change in exam. MEDICATIONS: Reviewed. LABORATORY DATA: Has been reviewed. ASSESSMENT AND PLAN: 1. Nonoliguric kidney injury with previously normal baseline creatinine. Etiology of FORREST is seconda ry to ATN. Renal function has improved. Continue current treatment plan, supportive care, renally d ose all medications. 2. Hematuria, resolving. Continue to monitor. 3. Volume overload. Continue current diuretic regimen. Diuretics have been deescalated. We will f ollow up renal panel. 4. Hypokalemia. Continue to monitor and replete as needed. 5. Anemia. Monitor hemoglobin and hematocrit levels. 6. Mechanical heart valve. Continue anticoagulation per cardiology. 7. Sepsis secondary to UTI. Continue current antibiotic regimen. 8. Hypothyroidism. Continue Synthroid. 9. Dyslipidemia. Continue statin therapy. 10. Hypertension. Continue current blood pressure regimen. 11. Urinary tract infection. 12. Liver cirrhosis. Continue medical management. 13. Intraabdominal hematoma. Dictated By: GWYN FABIAN DO NR/NTS Conf#: [id number] DID#: [id number] CC: JOAQUIN DE LEON MD; CHRIS LAZAR MD; JULY VALENTIN MD;*EndCC*
--- NOTE | 2018-07-18 09:10 | CONS ---
Assessment/Plan Assessment/Plan Hospital Course (Demo Recall) # sepsis, cardiopulmonary - s/p severe sepsis due to UTI, resolved - s/p SIRS due to acute blood loss, resolved - s/p L heart catheterization on 05/27/2018 showing no significant obstructive CAD - CAD - s/p CABG in [place] in 1982 - H/o MVR with mechanical valve, in 1999 - Hypertension - PAF - Asthma # urology/renal, GI - recurrent UTI due to - prelim citrobacter Freundii, Enterococcus species, enterobacter cloacae complex, alfredo albicans; s/p pip/tazo, on merrem - hematuria caused by ruptured urinary bladder (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 On the report, contrast material was identified within the vaginal canal; however, according to Dr. Ashford, this does not represent a fistulous tract between urethra and vagina - Mensah was exchanged on 07/12/2018 and 07/14/2018 because her older catheter was leaking - s/p UTI due to hafnai alvei and pediococci on 06/30/18. Pt completed pip/tazo (07/02/18-07/05/2018) for this episode - S/p UTI due to E. coli. 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, s/p covered stent placement 6 x 100 mm right common femoral artery and right external iliac artery, abdominal aortogram, catheter introduction to the abdominal aorta, JOSÉ MIGUEL guidance into the central artery 06/02/2018 - S/p retroperitoneal bleed - S/p acute anemia requiring PRBC # endo - Hyperlipidemia - Hypothyroidism Recommendations: - pending results: final culture of urine on 07/15/2018 - D/c pip/tazo (07/15/2018-07/18/18), start ertapenem x3d course - ordered Management d/w patient, her , and with Dr. Hughes. Thank you Consultation Date/Type/Reason Admit Date/Time May 28, 2018 at 17:52 Initial Consult Date 06/03/18 Type of Consult ID Requesting Provider: JULY VALENTIN MD Date/Time of Note DATE: 07/18/18 TIME: 09:09 24 HR Interval Summary Free Text/Dictation Per d/w patient and her , the patient has been getting oob and ambulating more without physical therapy, using a walker with the assisting. She denied all ROS when reviewed. No acute issues were reported by nursing and patient has remained afebrile. Exam/Review of Systems Exam Vitals Vital Signs Date Temp Pulse Resp B/P (MAP) Pulse Ox O2 O2 Flow FiO2 Time Delivery Rate 07/18/18 97 09:07 07/18/18 98.0 20 112/58 96 Room Air 07:12 (76) Intake and Output 07/17/18 07/17/18 07/18/18 1515:00 23:00 07:00 IntakeIntake Total 1000 ml 1000 ml OutputOutput Total 1350 ml 1000 ml BalanceBalance -350 ml 0 ml Allergies Coded Allergies No Known Allergy (Unverified07/17/18) Exam Constitutional: alert, oriented, well developed, other (getting back into bed from ambulating) Psych: no complaints, nl mood/affect (smiling) Head: normocephalic, atraumatic Eyes: nl conjunctiva, nl lids, nl sclera ENMT: nl external ears & nose, nl nasal mucosa & septum, mucosa pink and moist (no thrush) Neck: supple, non-tender Respiratory: clear to auscultation, normal air movement Cardiovascular: regular rate and rhythm, nl pulses Gastrointestinal: soft, non-tender, bowel sounds (normoactive) Genitourinary - Female: other (f/c draining light peach colored urine) Musculoskeletal: nl extremities to inspection Extremities: normal pulses Neurological: [employer]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, nl mental status, nl speech, nl strength Skin: nl turgor, ecchymosis (scattered); No rash or lesions Results Result Diagram: 07/15/18 0533 07/16/18 0623 Results 24hrs Laboratory Tests Test 07/18/18 05:30 Prothrombin Time 26.8 H Prothrombin Time Ratio 2.1 INR International Normalized Ratio 2.47 Medications Medication Current Medications Levothyroxine Sodium (Synthroid) 50 mcg BEFORE BREAKFAST PO Last administered on 07/18/18 06:24; Admin Dose 50 MCG; Start 05/30/18 at 07:00 Mometasone Furoate (Asmanex) 1 puff DAILY INH Last administered on 07/18/18 08 :26; Admin Dose 1 PUFF; Start 05/29/18 at 11:00 Atorvastatin Calcium (Lipitor) 10 mg DAILY@21 PO Last administered on 07/17/18 21:14; Admin Dose 10 MG; Start 05/29/18 at 21:00 Latanoprost (Xalatan) 1 drop HS BOTH EYES Last administered on 07/17/18 21:14; Admin Dose 1 DROP; Start 06/01/18 at 21:00 Amlodipine Besylate (Norvasc) 5 mg DAILY PO ; Start 06/03/18 at 09:00; Status Hold Pantoprazole (Protonix Tab) 40 mg DAILY@06 PO Last administered on 07/18/18 05:27; Admin Dose 40 MG; Start 06/05/18 at 06:00 Metoclopramide HCl (Reglan) 5 mg TID PRN IV Nausea; Start 06/06/18 at 11:00 Polyethylene Glycol (Miralax) 17 gm BID PRN PO CONSTIPATION; Start 06/06/18 at 14:00 Bisacodyl (Dulcolax Supp) 10 mg DAILY PRN [place] CONSTIPATION; Start 06/06/18 at 14:00 IV Flush (NS 10 ml) 10 ml PRN PRN IV IV PROTOCOL; Start 06/06/18 at 16:00 Nystatin (Nystatin Susp) 5 ml QID PO Last administered on 07/18/18 08:25; Admin Dose 5 ML; Start 06/06/18 at 17:00 Docusate Sodium (Colace) 100 mg DAILY PRN PO CONSTIPATION; Start 06/21/18 at 12:00 [facility] This patient gomes... PRN PRN XX WOUND CARE; Start 06/21/18 at 16:00 Amiodarone HCl (Cordarone) 200 mg BID PO Last administered on 07/18/18 08:26; Admin Dose 200 MG; Start 06/22/18 at 21:00 Ferrous Sulfate (Ferrous Sulfate (Ec)) 325 mg BID PO Last administered on 07/18/18 08:25; Admin Dose 325 MG; Start 07/09/18 at 09:30 Docusate Sodium (Colace) 100 mg DAILY PO Last administered on 07/18/18 08:25; Admin Dose 100 MG; Start 07/10/18 at 09:00 Miscellaneous Information (*Order Clarification Bulletin) PLEASE CLARIFY WITH MDRox. Q8H XX ; Start 07/13/18 at 11:00 Acetaminophen (Tylenol Tab) 650 mg Q6H PRN PO MILD PAIN(1-3)OR ELEVATED TEMP Last administered on 07/14/18 21:04; Admin Dose 650 MG; Start 07/14/18 at 21:00 Bumetanide (Bumex) 1 mg DAILY PO Last administered on 07/18/18 08:25; Admin Dose 1 MG; Start 07/15/18 at 09:00 Piperacillin Sod/ Tazobactam Sod 100 ml @ 200 mls/hr Q6 IVPB Last administered on 07/18/18 05:26; Admin Dose 200 MLS/HR; Start 07/15/18 at 10:30 Warfarin Sodium (Coumadin) 6 mg DAILY@17 PO Last administered on 07/17/18 18:04; Admin Dose 6 MG; Start 07/15/18 at 17:00 WILIAM HUI POLITICAL GEOGRAPHER Jul 18, 2018 09:10
--- NOTE | 2018-07-18 12:50 | PN ---
Date/Time of Note Date/Time of Note DATE: 07/18/18 TIME: 12:46 Assessment/Plan VTE Prophylaxis Risk score (from Ns)>0 risk: 7 SCD applied (from Ns): Yes Pharmacological prophylaxis: warfarin tx Lines/Catheters IV Catheter Type (from Nrs): PICC Line Central line still needed: Yes Urinary Cath still in place: Yes Reason Cath still needed: urinary retention Assessment/Plan Hospital Course Patient is awake alert and oriented, no hematuria noted Via Mensah catheter today, urology recommendations., INR is 2.47 continue Coumadin, dose per ca rdiology. She is currently on ertapenem for polymicrobial urinary tract infection. 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 C ontinue Mensah, monitor. Dr. Ashford is following in urology consultation. -Polymicrobial UTI, continue antibiotics per ID. Dr. Castellanos is following in infection disease consultation. -Anemia of acute blood loss, transfuse PRN, monitor H&H. 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 -S/p Nose/oropharyngeal bleed on 06/11/2018, stopped after heparin was held. -Retroperitoneal bleed secondary to vascular injury status post stent placement. S/p CT guided placement of drainage catheter into pelvic hematoma on 06/05/18 and sequent removal. -Status post left heart catheterization with no significant obstructive coronary artery disease by Dr. Moreno on 05/27/2018. -Anemia of acute blood loss, status post blood transfusion, continue to monitor hemoglobin and hematocrit. -Urinary incontinence. -Acute illness myopathy -Status post mitral valve replacement with mechanical valve in 1999 in [facility]. Continue Coumadin, monitor PT/INR. -HTN, continue metoprolol -Hyperlipidemia -Hypothyroidism, continue levothyroxine -History of asthma Further recommendations based on clinical course. Plan of care discussed with Dr. Painter. Result Diagram: 07/15/18 0533 07/16/18 0623 Results 24hrs Laboratory Tests Test 07/18/18 05:30 Prothrombin Time 26.8 H Prothrombin Time Ratio 2.1 INR International Normalized Ratio 2.47 Exam/Review of Systems Exam Vitals Vital Signs Date Temp Pulse Resp B/P (MAP) Pulse Ox O2 O2 Flow FiO2 Time Delivery Rate 07/18/18 98.0 97 20 120/60 97 Room Air 11:05 (80) Intake and Output 07/17/18 07/17/18 07/18/18 1515:00 23:00 07:00 IntakeIntake Total 1000 ml 1000 ml OutputOutput Total 1350 ml 1000 ml BalanceBalance -350 ml 0 ml Exam Constitutional: alert, oriented Respiratory: clear to auscultation Cardiovascular: irregular rhythm Gastrointestinal: soft, non-tender Genitourinary - Female: other (Mensah) Extremities: normal pulses Neurological: nl mental status Skin: nl turgor Results Results 24hrs Laboratory Tests Test 07/18/18 05:30 Prothrombin Time 26.8 H Prothrombin Time Ratio 2.1 INR International Normalized Ratio 2.47 Medications Medication Current Medications Levothyroxine Sodium (Synthroid) 50 mcg BEFORE BREAKFAST PO Last administered on 07/18/18at 06:24; Admin Dose 50 MCG; Start 05/30/18 at 07:00 Mometasone Furoate (Asmanex) 1 puff DAILY INH Last administered on 07/18/18at 08:26; Admin Dose 1 PUFF; Start 05/29/18 at 11:00 Atorvastatin Calcium (Lipitor) 10 mg DAILY@21 PO Last administered on 07/17/18at 21:14; Admin Dose 10 MG; Start 05/29/18 at 21:00 Latanoprost (Xalatan) 1 drop HS BOTH EYES Last administered on 07/17/18at 21:14; Admin Dose 1 DROP; Start 06/01/18 at 21:00 Amlodipine Besylate (Norvasc) 5 mg DAILY PO ; Start 06/03/18 at 09:00; Status Hold Pantoprazole (Protonix Tab) 40 mg DAILY@06 PO Last administered on 07/18/18at 05:27; Admin Dose 40 MG; Start 06/05/18 at 06:00 Metoclopramide HCl (Reglan) 5 mg TID PRN IV Nausea; Start 06/06/18 at 11:00 Polyethylene Glycol (Miralax) 17 gm BID PRN PO CONSTIPATION; Start 06/06/18 at 14:00 Bisacodyl (Dulcolax Supp) 10 mg DAILY PRN [place] CONSTIPATION; Start 06/06/18 at 14:00 IV Flush (NS 10 ml) 10 ml PRN PRN IV IV PROTOCOL; Start 06/06/18 at 16:00 Nystatin (Nystatin Susp) 5 ml QID PO Last administered on 07/18/18 08:25; Admin Dose 5 ML; Start 06/06/18 at 17:00 Docusate Sodium (Colace) 100 mg DAILY PRN PO CONSTIPATION; Start 06/21/18 at 12:00 Miscellaneous Information (Pending Santyl Order For Wound Care) This patient gomes... PRN PRN XX WOUND CARE; Start 06/21/18 at 16:00 Amiodarone HCl (Cordarone) 200 mg BID PO Last administered on 07/18/18 08:26; Admin Dose 200 MG; Start 06/22/18 at 21:00 Ferrous Sulfate (Ferrous Sulfate (Ec)) 325 mg BID PO Last administered on 07/18/18 08:25; Admin Dose 325 MG; Start 07/09/18 at 09:30 Docusate Sodium (Colace) 100 mg DAILY PO Last administered on 07/18/18 08:25; Admin Dose 100 MG; Start 07/10/18 at 09:00 Miscellaneous Information (*Order Clarification Bulletin) PLEASE CLARIFY WITH MD... Q8H XX ; Start 07/13/18 at 11:00 Acetaminophen (Tylenol Tab) 650 mg Q6H PRN PO MILD PAIN(1-3)OR ELEVATED TEMP Last administered on 07/14/18 21:04; Admin Dose 650 MG; Start 07/14/18 at 21:00 Bumetanide (Bumex) 1 mg DAILY PO Last administered on 07/18/18 08:25; Admin Dose 1 MG; Start 07/15/18 at 09:00 Warfarin Sodium (Coumadin) 6 mg DAILY@17 PO Last administered on 07/17/18 18:04; Admin Dose 6 MG; Start 07/15/18 at 17:00 Ertapenem 1 gm/ Sodium Chloride 100 ml @ 200 mls/hr Q24H IVPB ; Start 07/18/18 at 12:30; Stop 07/20/18 at 12:29 KRISTY MCCULLOUGH Jul 18, 2018 12:50
[2018-07-18] MEDS: ERTAPENEM SODIUM 1 GM in SOD CHLORIDE 0.9% 100 ML IVPB SCH (13:18)
--- NOTE | 2018-07-18 17:16 | CONS ---
Assessment/Plan Assessment/Plan Hospital Course (Demo Recall) IMP: 1.cad s/p LHC with no sig obstructive cad. Mildly depressed LVEF--40-45% ? nonischemic process 2.HTN 3.RP Bleed s/p transfusions now stable and tolerating heparin/coumadin loading. Then had recurrent bled overnight now s/p covered stent to ASSISTANT INFANT TODDLER TEACHER/Ext iliac. Stable collection by abd CT 06/06 but still with pigtail catheter in place 4.HL 5.MVR-mechanical 6.anemia- s/p repair of R ASSISTANT INFANT TODDLER TEACHER/illiac. Had hemoptysis with subsequent drop in Hgb again and holding of heparin. Had some mild blood tinged sputum 7.Hypothyroid 8. GOMES-negative Head CT 9. Fevers-with positive ua 10. UTI-Being followed by ID and on abx 11.ARF-? Contrast induced/compression from hematoma- now improving with increased urine output and slowly decreasing woodworker helper 12. Coagulopathy-downtrenede and resumed on couamadin with midly subtherapeutic INR 14. LE weakness-? compression from hematoma and exacerbated by femoral compression after cath-now resolved 15. arterial insuff- LLE- s/p FLAME CHANNELER/thrombolysis 06/04 successfully with palpable pulses/B DP/PT and remain that way 16. PAF/AFL-rate controlled 17. 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 Now decreasing hematuria. s/p pelvic CT revealing ongoing fistula and per urology note was discussed with family 18. Epistaxis-improved/resolved. no recurrence 19. 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 ? new , ? etiology. Urology following and per his note has discussed treatment options with family including surgical versus waiting and thought that waiting would be best at this time Recc: -Now on tele -Continue BB with well controlled Hr's -Continue statin -s/p course of abx's -ongoing ID f/u -F/U woodworker helper/K closely with creatnine now normalized and volume status improving on bumex bid. Will also assess patient's PO intake and possible contribution to volume overload -Follow HGb closely which has been stable to improved actually -PT/ambulation- doing 3x/day -will continue amio bid for now and follow rhythm clsoely with patient having episodes of PAF/AFL but always rate controlled -Urology following with findings of apparent bladder fistula and thus draining of the hematoma through the bladder causing hematuria which has improved and now apparent bladder-vaginal fistula.Continue to follow hematuria for complete resolution and assess need for spontaneous closure versus need for repair which has been discussed with family and urology and between them as well. ? necessity of closing fistula at this time given clarity of urine/resolution of hematuria. Will discuss with urology -Now back on coumadin with therapeutic INR. Will decrease coumadin to maintenanc e -Continue current bumex now daily PO again with improved volume status Consultation Date/Type/Reason Admit Date/Time May 28, 2018 at 17:52 Initial Consult Date 05/28/18 Type of Consult Cardiology Reason for Consultation mvr Requesting Provider: JULY VALENTIN MD Date/Time of Note DATE: 07/18/18 TIME: 17:11 Exam/Review of Systems Vital Signs Vitals Vital Signs Date Temp Pulse Resp B/P (MAP) Pulse Ox O2 O2 Flow FiO2 Time Delivery Rate 07/18/18 97.7 101 20 120/69 96 Room Air 15:11 (86) Intake and Output 07/17/18 07/17/18 07/18/18 1515:00 23:00 07:00 IntakeIntake Total 1000 ml 1000 ml OutputOutput Total 1350 ml 1000 ml BalanceBalance -350 ml 0 ml Exam Exam Review of Systems: CONSTITUTIONAL: No fevers, chills. PULMONARY: No sob CARDIOVASCULAR: No chest pain/palpitations GASTROINTESTINAL: No nausea/vomiting. GENITOURINARY: No hematuria/dysuria. MUSCULOSKELETAL: No myagias/arthalgias. PSYCHIATRIC: The patient denies depression. NEUROLOGIC: No weakness Constitutional: alert Psych: no complaints Head: normocephalic ENMT: mucosa pink and moist Neck: supple, jvd (9 cm water) Respiratory: diminished breath sounds Cardiovascular: regular rate and rhythm Gastrointestinal: soft, non-tender Musculoskeletal: muscle tone (normal) Extremities: edema (none) Neurological: other (no focal deficits) Labs Result Diagram: 07/15/18 0533 07/16/18 0623 Results 24hrs Laboratory Tests Test 07/18/18 05:30 Prothrombin Time 26.8 H Prothrombin Time Ratio 2.1 INR International Normalized Ratio 2.47 Medications Medications Current Medications Levothyroxine Sodium (Synthroid) 50 mcg BEFORE BREAKFAST PO Last administered on 07/18/18 06:24; Admin Dose 50 MCG; Start 05/30/18 at 07:00 Mometasone Furoate (Asmanex) 1 puff DAILY INH Last administered on 07/18/18 08:26; Admin Dose 1 PUFF; Start 05/29/18 at 11:00 Atorvastatin Calcium (Lipitor) 10 mg DAILY@21 PO Last administered on 07/17/18 21:14; Admin Dose 10 MG; Start 05/29/18 at 21:00 Latanoprost (Xalatan) 1 drop HS BOTH EYES Last administered on 07/17/18 21:14; Admin Dose 1 DROP; Start 06/01/18 at 21:00 Amlodipine Besylate (Norvasc) 5 mg DAILY PO ; Start 06/03/18 at 09:00; Status Hold Pantoprazole (Protonix Tab) 40 mg DAILY@06 PO Last administered on 07/18/18 05:27; Admin Dose 40 MG; Start 06/05/18 at 06:00 Metoclopramide HCl (Reglan) 5 mg TID PRN IV Nausea; Start 06/06/18 at 11:00 Polyethylene Glycol (Miralax) 17 gm BID PRN PO CONSTIPATION; Start 06/06/18 at 14:00 Bisacodyl (Dulcolax Supp) 10 mg DAILY PRN [place] CONSTIPATION; Start 06/06/18 at 14:00 IV Flush (NS 10 ml) 10 ml PRN PRN IV IV PROTOCOL; Start 06/06/18 at 16:00 Nystatin (Nystatin Susp) 5 ml QID PO Last administered on 07/18/18 13:18; Admin Dose 5 ML; Start 06/06/18 at 17:00 Docusate Sodium (Colace) 100 mg DAILY PRN PO CONSTIPATION; Start 06/21/18 at 12:00 Miscellaneous Information (Pending [facility] Order For Wound Care) This patient gomes... PRN PRN XX WOUND CARE; Start 06/21/18 at 16:00 Amiodarone HCl (Cordarone) 200 mg BID PO Last administered on 07/18/18 08:26; Admin Dose 200 MG; Start 06/22/18 at 21:00 Ferrous Sulfate (Ferrous Sulfate (Ec)) 325 mg BID PO Last administered on 07/18/18 08:25; Admin Dose 325 MG; Start 07/09/18 at 09:30 Docusate Sodium (Colace) 100 mg DAILY PO Last administered on 07/18/18 08:25; Admin Dose 100 MG; Start 07/10/18 at 09:00 Miscellaneous Information (*Order Clarification Bulletin) PLEASE CLARIFY WITH . Q8H XX ; Start 07/13/18 at 11:00 Acetaminophen (Tylenol Tab) 650 mg Q6H PRN PO MILD PAIN(1-3)OR ELEVATED TEMP Last administered on 07/14/18 21:04; Admin Dose 650 MG; Start 07/14/18 at 21:00 Bumetanide (Bumex) 1 mg DAILY PO Last administered on 07/18/18 08:25; Admin Dos e 1 MG; Start 07/15/18 at 09:00 Warfarin Sodium (Coumadin) 6 mg DAILY@17 PO Last administered on 07/17/18 18:04; Admin Dose 6 MG; Start 07/15/18 at 17:00 Ertapenem 1 gm/ Sodium Chloride 100 ml @ 200 mls/hr Q24H IVPB Last administered on 07/18/18 13:18; Admin Dose 200 MLS/HR; Start 07/18/18 at 12:30; Stop 07/20/18 at 12:29 CHRIS LAZAR Jul 18, 2018 17:16
[2018-07-18] MEDS: WARFARIN 5 MG TAB PO SCH (18:05)
[2018-07-18] MEDS: LATANOPROST 0.005% 2.5 ML OPH BOTH EYES SCH (20:35)
[2018-07-18] MEDS: ATORVASTATIN 10 MG TAB PO SCH (20:35)
[2018-07-19] VITALS (10 sets, daily range): BP systolic 107–142; BP diastolic 55–73; PULSE 64–108; RESP 18–20
[2018-07-19] MEDS: LEVOTHYROXINE 50 MCG TAB PO SCH (06:20)
[2018-07-19] MEDS: PANTOPRAZOLE (EC) 40 MG TAB PO SCH (06:20)
[2018-07-19] MEDS ORDERED: POTASSIUM CHLORIDE (SR) 20 MEQ TAB PO STA (08:18)
--- NOTE | 2018-07-19 09:00 | PN ---
DATE: 07/19/2018 SUBJECTIVE: The patient is stable, no events overnight. No fevers, chills, nausea, vomiting. OBJECTIVE: VITAL SIGNS: Blood pressure is 115/73, pulse 108, respirations 20, temperature 98.3. HEENT: Head is normocephalic. NECK: Supple. HEART: Regular rate. LUNGS: Show diminished breath sounds at the base. ABDOMEN: Soft, nontender to palpation without rebound or guarding. EXTREMITIES: Negative for clubbing, cyanosis. Trace edema. DERMATOLOGIC: No rashes. MUSCULOSKELETAL: No joint effusion. NEUROLOGIC: No change. MEDICATIONS: The patient's medications have been reviewed. LABORATORY DATA: Reviewed. CBC and BMP was reviewed. MICROBIOLOGY: Reviewed. ASSESSMENT AND PLAN: 1. Nonoliguric acute kidney injury with previously normal baseline creatinine. Etiology of acute ki dney injury is secondary to acute tubular necrosis. Renal function is improved. Continue current tr eatment plan, supportive care, renally dose all medicines. 2. Hematuria, resolved. Continue to monitor. 3. Volume overload, improving. Continue current diuretic regimen. 4. Hyperkalemia. We will replete with potassium chloride. 5. Anemia. Continue to monitor hemoglobin and hematocrit levels. 6. Mechanical heart valve. Continue anticoagulation per cardiology. 7. Sepsis secondary to urinary tract infection. Continue current antibiotic regimen. 8. Hypothyroidism. Continue Synthroid. 9. Dyslipidemia. Continue statin therapy. 10. Hypertension. Continue current blood pressure regimen. 11. Urinary tract infection. 12. Liver cirrhosis. Continue medical management. 13. Intraabdominal hematoma. Dictated By: GWYN FABIAN DO NR/NTS Conf#: [id number] DID#: [id number] CC: JULY VALENTIN MD; CHRIS LAZAR MD; JOAQUIN DE LEON MD;*EndCC*
[2018-07-19] MEDS: FERROUS SULFATE (EC) 325 MG TAB PO SCH ×2 (09:03→21:29)
[2018-07-19] MEDS: NYSTATIN SUSP 5 ML CUP PO SCH ×4 (09:03→21:28)
[2018-07-19] MEDS: AMIODARONE 200 MG TAB PO SCH ×2 (09:03→21:29)
[2018-07-19] MEDS: BUMETANIDE 1 MG TAB PO SCH (09:03)
[2018-07-19] MEDS: MOMETASONE 0.24 GM INHALER INH SCH (09:03)
[2018-07-19] MEDS: DOCUSATE SODIUM 100 MG CAP PO SCH (09:03)
--- NOTE | 2018-07-19 09:48 | CONS ---
Consult Date/Type/Reason Admit Date/Time May 28, 2018 at 17:52 Initial Consult Date Type of Consultation: Urology Requesting Provider: JULY VALENTIN MD Date/Time of Note DATE: 07/19/18 TIME: 09:46 Subjective NO acute events - pt stable - ambulatory now - seen ambulation - mild SOB - con't rehab better overall. ROS: No fever, no chills, no nausea, no vomiting, no diarrhea/constipation No recent weight changes No chest pain, no PND, no orthopnea - mild SOB No dizziness, blurred vision No thirst, no heat or cold intolerance Objective Vitals Vital Signs Date Temp Pulse Resp B/P (MAP) Pulse Ox O2 O2 Flow FiO2 Time Delivery Rate 07/19/18 98.3 108 20 115/73 95 07:22 (87) 07/19/18 Room Air 04:00 Intake and Output 07/18/18 07/18/18 07/19/18 1515:00 23:00 07:00 IntakeIntake Total 360 ml 600 ml 500 ml OutputOutput Total 2200 ml 900 ml BalanceBalance 360 ml -1600 ml -400 ml Exam General: WN/WD/NAD, AOx 3 HEENT: Unicetric/atraumatic/EOMI (does not follow commands) NECK: JVD elevated, no thyromegaly Lymph: no lymphadenopathy HEART: regular with no S3, II/ systolic murmur at apex, mech click LUNGS: Coarse sounds ABD: soft, NT, ND, +BS : Intact Neuro: non focal SKIN: chronic changes EXT: trace edema Results/Medications Result Diagram: 07/19/18 0635 07/19/18 0635 Results 24 hrs Laboratory Tests Test 07/19/18 06:35 White Blood Count 4.6 L Red Blood Count 2.99 L Hemoglobin 9.3 L Hematocrit 29.1 L Mean Corpuscular Volume 97.3 Mean Corpuscular Hemoglobin 31.1 Mean Corpuscular Hemoglobin Concent 32.0 Red Cell Distribution Width 15.9 H Platelet Count 205 Mean Platelet Volume 9.3 Immature Granulocytes % 0.900 H Neutrophils % 59.5 Lymphocytes % 28.0 Monocytes % 8.5 Eosinophils % 2.4 Basophils % 0.7 Nucleated Red Blood Cells % 0.0 Immature Granulocytes # 0.040 H Neutrophils # 2.8 Lymphocytes # 1.3 Monocytes # 0.4 Eosinophils # 0.1 Basophils # 0.0 Nucleated Red Blood Cells # 0.0 Prothrombin Time 34.0 #H Prothrombin Time Ratio 2.7 INR International Normalized Ratio 3.36 Sodium Level 137 Potassium Level 3.3 L Chloride Level 101 Carbon Dioxide Level 31 Anion Gap 5 Blood Urea Nitrogen 19 Creatinine 0.64 Est Glomerular Filtrat Rate mL/min > 60 Glucose Level 135 Calcium Level 9.1 Phosphorus Level 3.6 Magnesium Level 1.9 Home Meds Reported Medications Albuterol Sulfate* (Ventolin HFA*) 18 Gm Hfa.aer.ad, 2 PUFF INHALATION Q4H, #1 INHALER 05/26/18 Ergocalciferol (Vitamin D2) (VITAMIN D2) 50,000 Unit Capsule, 36164 UNIT PO [id number], CAP 05/23/18 Warfarin Sodium* (Coumadin*) 5 Mg Tablet, 5 MG PO Q TU,THUR,SAT, TAB 05/23/18 Warfarin Sodium* (Coumadin*) 4 Mg Tablet, 4 MG PO Q MON,WED,FRI,SUN, TAB 05/23/18 Furosemide* (Furosemide*) 20 Mg Tablet, 20 MG PO DAILY, #60 TAB TAKE Q 2 DAYS 05/23/18 Simvastatin* (Zocor*) 20 Mg Tablet, 20 MG PO QHS, #30 TAB 05/23/18 Ranitidine Hcl* (Ranitidine Hcl*) 150 Mg Tablet, 150 MG PO HS, #30 TAB 05/23/18 Acetaminophen (Mapap) 500 Mg Capsule, 500 MG PO BID PRN for PAIN, CAP 05/23/18 Levothyroxine Sodium* (Levothyroxine Sodium*) 50 Mcg Tablet, 50 MCG PO BEFORE BREAKFAST, #30 TAB 05/23/18 Spironolactone* (Aldactone*) 25 Mg Tablet, 25 MG PO DAILY, #30 TAB 05/23/18 Beclomethasone Dipropionate (Qvar Redihaler (40 MCG)) 10.6 Gm Hfa.aeroba, 10.6 GM IH DAILY, INH 05/23/18 Amlodipine Besylate* (Norvasc*) 5 Mg Tablet, 5 MG PO BID, TAB 05/23/18 Losartan-Hydrochlorothiazide (Losartan-HCTZ) 100-25 Mg Tab, 1 TAB PO DAILY, TAB 05/23/18 Medications Current Medications Levothyroxine Sodium (Synthroid) 50 mcg BEFORE BREAKFAST PO Last administered on 07/19/18 06:20; Admin Dose 50 MCG; Start 05/30/18 at 07:00 Mometasone Furoate (Asmanex) 1 puff DAILY INH Last administered on 07/19/18 09:03; Admin Dose 1 PUFF; Start 05/29/18 at 11:00 Atorvastatin Calcium (Lipitor) 10 mg DAILY@21 PO Last administered on 07/18/18 20:35; Admin Dose 10 MG; Start 05/29/18 at 21:00 Latanoprost (Xalatan) 1 drop HS BOTH EYES Last administered on 07/18/18 20:35; Admin Dose 1 DROP; Start 06/01/18 at 21:00 Amlodipine Besylate (Norvasc) 5 mg DAILY PO ; Start 06/03/18 at 09:00; Status Hold Pantoprazole (Protonix Tab) 40 mg DAILY@06 PO Last administered on 07/19/18 06:20; Admin Dose 40 MG; Start 06/05/18 at 06:00 Metoclopramide HCl (Reglan) 5 mg TID PRN IV Nausea; Start 06/06/18 at 11:00 Polyethylene Glycol (Miralax) 17 gm BID PRN PO CONSTIPATION; Start 06/06/18 at 14:00 Bisacodyl (Dulcolax Supp) 10 mg DAILY PRN [place] CONSTIPATION; Start 06/06/18 at 14:00 IV Flush (NS 10 ml) 10 ml PRN PRN IV IV PROTOCOL; Start 06/06/18 at 16:00 Nystatin (Nystatin Susp) 5 ml QID PO Last administered on 07/19/18 09:03; Admin Dose 5 ML; Start 06/06/18 at 17:00 Docusate Sodium (Colace) 100 mg DAILY PRN PO CONSTIPATION; Start 06/21/18 at 12:00 Miscellaneous Information ([facility]) This patient gomes... PRN PRN XX WOUND CARE; Start 06/21/18 at 16:00 Amiodarone HCl (Cordarone) 200 mg BID PO Last administered on 07/19/18 09:03; Admin Dose 200 MG; Start 06/22/18 at 21:00 Ferrous Sulfate (Ferrous Sulfate (Ec)) 325 mg BID PO Last administered on 07/19/18at 09:03; Admin Dose 325 MG; Start 07/09/18 at 09:30 Docusate Sodium (Colace) 100 mg DAILY PO Last administered on 07/19/18at 09:03; Admin Dose 100 MG; Start 07/10/18 at 09:00 Miscellaneous Information (*Order Clarification Bulletin) PLEASE CLARIFY WITH .. Q8H XX ; Start 07/13/18 at 11:00 Acetaminophen (Tylenol Tab) 650 mg Q6H PRN PO MILD PAIN(1-3)OR ELEVATED TEMP Last administered on 07/14/18at 21:04; Admin Dose 650 MG; Start 07/14/18 at 21:00 Bumetanide (Bumex) 1 mg DAILY PO Last administered on 07/19/18at 09:03; Admin Dose 1 MG; Start 07/15/18 at 09:00 Ertapenem 1 gm/ Sodium Chloride 100 ml @ 200 mls/hr Q24H IVPB Last administered on 07/18/18at 13:18; Admin Dose 200 MLS/HR; Start 07/18/18 at 12:30; Stop 07/20/18 at 12:29 Warfarin Sodium (Coumadin) 5 mg DAILY@17 PO Last administered on 07/18/18at 18:05; Admin Dose 5 MG; Start 07/18/18 at 17:30 Assessment/Plan Hospital Course (Demo Recall) 1.cad s/p C with no sig obstructive cad - on med rx now - treated - no CP now - stable - on meds - treated. Stable. Ambulatory now. 2.HTN - treated - well Rx - well controlled - controlled - well maintained. 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 STILL with hematuria - urology follows. Still heaturia - con't to monitor - H/H trending down - might need blood Rx. - H/H stable now. 4.HL 5.MVR-mechanical - stable by exam - soft click by exam - stable Stable by exam.Soft click. Stable by exam. Con't to follow. 6.anemia- s/p repair of R THERAPY ASSISTANT/illiac. Now stabilizing - still with hematuria, a little better H/H at 9.3. 7.Hypothyroid 8. GOMES-negative Head CT 9. Fevers-with positive ua - now resolved. RESOLVED. 10. Cloudy urine - check UA now. CECILIA MOCTEZUMA MD Jul 19, 2018 09:48
[2018-07-19] MEDS: ERTAPENEM SODIUM 1 GM in SOD CHLORIDE 0.9% 100 ML IVPB SCH (11:26)
--- NOTE | 2018-07-19 13:12 | CONS ---
Assessment/Plan Assessment/Plan Hospital Course (Demo Recall) # sepsis, cardiopulmonary - s/p severe sepsis due to UTI, resolved - s/p SIRS due to acute blood loss, resolved - s/p L heart catheterization on 05/27/2018 showing no significant obstructive CAD - CAD - s/p CABG in [place] in 1982 - H/o MVR with mechanical valve, in 1999 - Hypertension - PAF - Asthma # urology/renal, GI - recurrent UTI due to - prelim citrobacter Freundii, Enterococcus species, enterobacter cloacae complex, alfredo albicans; s/p pip/tazo, on merrem - hematuria caused by ruptured urinary bladder (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 On the report, contrast material was identified within the vaginal canal; however, according to Dr. Ashford, this does not represent a fistulous tract between urethra and vagina - Mensah was exchanged on 07/12/2018 and 07/14/2018 because her older catheter was leaking - s/p UTI due to hafnai alvei and pediococci on 06/30/18. Pt completed pip/tazo (07/02/18-07/05/2018) for this episode - S/p UTI due to E. coli. 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, s/p covered stent placement 6 x 100 mm right common femoral artery and right external iliac artery, abdominal aortogram, catheter introduction to the abdominal aorta, JOSÉ MIGUEL guidance into the central artery 06/02/2018 - S/p retroperitoneal bleed - S/p acute anemia requiring PRBC # endo - Hyperlipidemia - Hypothyroidism Recommendations: - pending results: final culture of urine on 07/15/2018 - complete ertapenem x3d course - ordered Consultation Date/Type/Reason Admit Date/Time May 28, 2018 at 17:52 Initial Consult Date 06/03/18 Type of Consult ID Requesting Provider: JULY VALENTIN MD Date/Time of Note DATE: 07/19/18 TIME: 13:12 Exam/Review of Systems Exam Vitals Vital Signs Date Temp Pulse Resp B/P (MAP) Pulse Ox O2 O2 Flow FiO2 Time Delivery Rate 07/19/18 98.6 99 20 129/60 96 11:05 (83) 07/19/18 Room Air 04:00 Intake and Output 07/18/18 07/18/18 07/19/18 1515:00 23:00 07:00 IntakeIntake Total 360 ml 600 ml 500 ml OutputOutput Total 2200 ml 900 ml BalanceBalance 360 ml -1600 ml -400 ml Constitutional: alert, oriented, well developed Psych: no complaints, nl mood/affect Head: normocephalic, atraumatic Eyes: nl conjunctiva, EOMI, nl lids, nl sclera, PERRL Neck: supple, non-tender Respiratory: clear to auscultation, normal air movement Gastrointestinal: soft, nl liver, spleen, non-tender Results Result Diagram: 07/19/18 0635 07/19/18 0635 Results 24hrs Laboratory Tests Test 07/19/18 06:35 White Blood Count 4.6 L Red Blood Count 2.99 L Hemoglobin 9.3 L Hematocrit 29.1 L Mean Corpuscular Volume 97.3 Mean Corpuscular Hemoglobin 31.1 Mean Corpuscular Hemoglobin Concent 32.0 Red Cell Distribution Width 15.9 H Platelet Count 205 Mean Platelet Volume 9.3 Immature Granulocytes % 0.900 H Neutrophils % 59.5 Lymphocytes % 28.0 Monocytes % 8.5 Eosinophils % 2.4 Basophils % 0.7 Nucleated Red Blood Cells % 0.0 Immature Granulocytes # 0.040 H Neutrophils # 2.8 Lymphocytes # 1.3 Monocytes # 0.4 Eosinophils # 0.1 Basophils # 0.0 Nucleated Red Blood Cells # 0.0 Prothrombin Time 34.0 #H Prothrombin Time Ratio 2.7 INR International Normalized Ratio 3.36 Sodium Level 137 Potassium Level 3.3 L Chloride Level 101 Carbon Dioxide Level 31 Anion Gap 5 Blood Urea Nitrogen 19 Creatinine 0.64 Est Glomerular Filtrat Rate mL/min > 60 Glucose Level 135 Calcium Level 9.1 Phosphorus Level 3.6 Magnesium Level 1.9 Medications Medication Current Medications Levothyroxine Sodium (Synthroid) 50 mcg BEFORE BREAKFAST PO Last administered on 07/19/18 06:20; Admin Dose 50 MCG; Start 05/30/18 at 07:00 Mometasone Furoate (Asmanex) 1 puff DAILY INH Last administered on 07/19/18 09:03; Admin Dose 1 PUFF; Start 05/29/18 at 11:00 Atorvastatin Calcium (Lipitor) 10 mg DAILY@21 PO Last administered on 07/18/18 20:35; Admin Dose 10 MG; Start 05/29/18 at 21:00 Latanoprost (Xalatan) 1 drop HS BOTH EYES Last administered on 07/18/18 20:35; Admin Dose 1 DROP; Start 06/01/18 at 21:00 Amlodipine Besylate (Norvasc) 5 mg DAILY PO ; Start 06/03/18 at 09:00; Status Hold Pantoprazole (Protonix Tab) 40 mg DAILY@06 PO Last administered on 07/19/18 06:20; Admin Dose 40 MG; Start 06/05/18 at 06:00 Metoclopramide HCl (Reglan) 5 mg TID PRN IV Nausea; Start 06/06/18 at 11:00 Polyethylene Glycol (Miralax) 17 gm BID PRN PO CONSTIPATION; Start 06/06/18 at 14:00 Bisacodyl (Dulcolax Supp) 10 mg DAILY PRN [place] CONSTIPATION; Start 06/06/18 at 14:00 IV Flush (NS 10 ml) 10 ml PRN PRN IV IV PROTOCOL; Start 06/06/18 at 16:00 Nystatin (Nystatin Susp) 5 ml QID PO Last administered on 07/19/18at 09:03; Admin Dose 5 ML; Start 06/06/18 at 17:00 Docusate Sodium (Colace) 100 mg DAILY PRN PO CONSTIPATION; Start 06/21/18 at 12:00 Miscellaneous Information ([facility]) This patient gomes... PRN PRN XX WOUND CARE; Start 06/21/18 at 16:00 Amiodarone HCl (Cordarone) 200 mg BID PO Last administered on 07/19/18 09:03; Admin Dose 200 MG; Start 06/22/18 at 21:00 Ferrous Sulfate (Ferrous Sulfate (Ec)) 325 mg BID PO Last administered on 07/19/18 09:03; Admin Dose 325 MG; Start 07/09/18 at 09:30 Docusate Sodium (Colace) 100 mg DAILY PO Last administered on 07/19/18 09:03; Admin Dose 100 MG; Start 07/10/18 at 09:00 Miscellaneous Information (*Order Clarification Bulletin) PLEASE CLARIFY WITH ... Q8H XX ; Start 07/13/18 at 11:00 Acetaminophen (Tylenol Tab) 650 mg Q6H PRN PO MILD PAIN(1-3)OR ELEVATED TEMP Last administered on 07/14/18 21:04; Admin Dose 650 MG; Start 07/14/18 at 21:00 Bumetanide (Bumex) 1 mg DAILY PO Last administered on 07/19/18 09:03; Admin D ose 1 MG; Start 07/15/18 at 09:00 Ertapenem 1 gm/ Sodium Chloride 100 ml @ 200 mls/hr Q24H IVPB Last administered on 07/19/18 11:26; Admin Dose 200 MLS/HR; Start 07/18/18 at 12:30; Stop 07/20/18 at 12:29 Warfarin Sodium (Coumadin) 5 mg DAILY@17 PO Last administered on 07/18/18 18:05; Admin Dose 5 MG; Start 07/18/18 at 17:30 MARSHA IYER MD Jul 19, 2018 13:12
--- NOTE | 2018-07-19 15:41 | PN ---
Date/Time of Note Date/Time of Note DATE: 07/19/18 TIME: 15:34 Assessment/Plan VTE Prophylaxis Risk score (from Ns)>0 risk: 7 SCD applied (from Ns): Yes Pharmacological prophylaxis: warfarin tx Lines/Catheters IV Catheter Type (from Nrs): PICC Line Central line still needed: Yes Urinary Cath still in place: Yes Reason Cath still needed: urinary retention Assessment/Plan Hospital Course No acute events overnight, clear urine yellow urine per Mensah catheter patient continues on ertapenem for polymicrobial urinary tract infection. INR is 3.36, continue Coumadin, dosed by our cardiology colleagues. Patient's condition and treatment options discussed with patient and patient at the bedside. Pending family decision regarding treatment options. 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 Continue Mensah, monitor. Dr. Ashford is following in urology consultation. -Polymicrobial UTI, continue antibiotics per ID. Dr. Castellanos is following in infection disease consultation. -Anemia of acute blood loss, transfuse PRN, monitor H&H. 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 -S/p Nose/oropharyngeal bleed on 06/11/2018, stopped after heparin was held. -Retroperitoneal bleed secondary to vascular injury status post stent placement. S/p CT guided placement of drainage catheter into pelvic hematoma on 06/05/18 and sequent removal. -Status post left heart catheterization with no significant obstructive coronary artery disease by Dr. Moreno on 05/27/2018. -Anemia of acute blood loss, status post blood transfusion, continue to monitor hemoglobin and hematocrit. -Urinary incontinence. -Acute illness myopathy -Status post mitral valve replacement with mechanical valve in 1999. Continue Coumadin, monitor PT/INR. -HTN, continue metoprolol -Hyperlipidemia -Hypothyroidism, continue levothyroxine -History of asthma Further recommendations based on clinical course. Plan of care discussed with Dr. Painter. Result Diagram: 07/19/18 0635 07/19/18 0635 Results 24hrs Laboratory Tests Test 07/19/18 06:35 White Blood Count 4.6 L Red Blood Count 2.99 L Hemoglobin 9.3 L Hematocrit 29.1 L Mean Corpuscular Volume 97.3 Mean Corpuscular Hemoglobin 31.1 Mean Corpuscular Hemoglobin Concent 32.0 Red Cell Distribution Width 15.9 H Platelet Count 205 Mean Platelet Volume 9.3 Immature Granulocytes % 0.900 H Neutrophils % 59.5 Lymphocytes % 28.0 Monocytes % 8.5 Eosinophils % 2.4 Basophils % 0.7 Nucleated Red Blood Cells % 0.0 Immature Granulocytes # 0.040 H Neutrophils # 2.8 Lymphocytes # 1.3 Monocytes # 0.4 Eosinophils # 0.1 Basophils # 0.0 Nucleated Red Blood Cells # 0.0 Prothrombin Time 34.0 #H Prothrombin Time Ratio 2.7 INR International Normalized Ratio 3.36 Sodium Level 137 Potassium Level 3.3 L Chloride Level 101 Carbon Dioxide Level 31 Anion Gap 5 Blood Urea Nitrogen 19 Creatinine 0.64 Est Glomerular Filtrat Rate mL/min > 60 Glucose Level 135 Calcium Level 9.1 Phosphorus Level 3.6 Magnesium Level 1.9 Exam/Review of Systems Exam Vitals Vital Signs Date Temp Pulse Resp B/P (MAP) Pulse Ox O2 O2 Flow FiO2 Time Delivery Rate 07/19/18 98.1 100 20 107/70 95 15:26 (82) 07/19/18 Room Air 04:00 Intake and Output 07/18/18 07/18/18 07/19/18 1414:59 22:59 06:59 IntakeIntake Total 360 ml 600 ml 500 ml OutputOutput Total 2200 ml 900 ml BalanceBalance 360 ml -1600 ml -400 ml Exam Constitutional: alert, oriented Respiratory: clear to auscultation Cardiovascular: irregular rhythm Gastrointestinal: soft, non-tender Genitourinary - Female: other (Mensah) Extremities: normal pulses Neurological: nl mental status Skin: nl turgor Results Results 24hrs Laboratory Tests Test 07/19/18 06:35 White Blood Count 4.6 L Red Blood Count 2.99 L Hemoglobin 9.3 L Hematocrit 29.1 L Mean Corpuscular Volume 97.3 Mean Corpuscular Hemoglobin 31.1 Mean Corpuscular Hemoglobin Concent 32.0 Red Cell Distribution Width 15.9 H Platelet Count 205 Mean Platelet Volume 9.3 Immature Granulocytes % 0.900 H Neutrophils % 59.5 Lymphocytes % 28.0 Monocytes % 8.5 Eosinophils % 2.4 Basophils % 0.7 Nucleated Red Blood Cells % 0.0 Immature Granulocytes # 0.040 H Neutrophils # 2.8 Lymphocytes # 1.3 Monocytes # 0.4 Eosinophils # 0.1 Basophils # 0.0 Nucleated Red Blood Cells # 0.0 Prothrombin Time 34.0 #H Prothrombin Time Ratio 2.7 INR International Normalized Ratio 3.36 Sodium Level 137 Potassium Level 3.3 L Chloride Level 101 Carbon Dioxide Level 31 Anion Gap 5 Blood Urea Nitrogen 19 Creatinine 0.64 Est Glomerular Filtrat Rate mL/min > 60 Glucose Level 135 Calcium Level 9.1 Phosphorus Level 3.6 Magnesium Level 1.9 Medications Medication Current Medications Levothyroxine Sodium (Synthroid) 50 mcg BEFORE BREAKFAST PO Last administered on 07/19/18 06:20; Admin Dose 50 MCG; Start 05/30/18 at 07:00 Mometasone Furoate (Asmanex) 1 puff DAILY INH Last administered on 07/19/18 09:03; Admin Dose 1 PUFF; Start 05/29/18 at 11:00 Atorvastatin Calcium (Lipitor) 10 mg DAILY@21 PO Last administered on 07/18/18 20:35; Admin Dose 10 MG; Start 05/29/18 at 21:00 Latanoprost (Xalatan) 1 drop HS BOTH EYES Last administered on 07/18/18 20:35; Admin Dose 1 DROP; Start 06/01/18 at 21:00 Amlodipine Besylate (Norvasc) 5 mg DAILY PO ; Start 06/03/18 at 09:00; Status Hold Pantoprazole (Protonix Tab) 40 mg DAILY@06 PO Last administered on 07/19/18 06:20; Admin Dose 40 MG; Start 06/05/18 at 06:00 Metoclopramide HCl (Reglan) 5 mg TID PRN IV Nausea; Start 06/06/18 at 11:00 Polyethylene Glycol (Miralax) 17 gm BID PRN PO CONSTIPATION; Start 06/06/18 at 14:00 Bisacodyl (Dulcolax Supp) 10 mg DAILY PRN [place] CONSTIPATION; Start 06/06/18 at 14:00 IV Flush (NS 10 ml) 10 ml PRN PRN IV IV PROTOCOL; Start 06/06/18 at 16:00 Nystatin (Nystatin Susp) 5 ml QID PO Last administered on 07/19/18 14:15; Admin Dose 5 ML; Start 06/06/18 at 17:00 Docusate Sodium (Colace) 100 mg DAILY PRN PO CONSTIPATION; Start 06/21/18 at 12:00 Miscellaneous Information (Pending Santyl Order For Wound Care) This patient gomes... PRN PRN XX WOUND CARE; Start 06/21/18 at 16:00 Amiodarone HCl (Cordarone) 200 mg BID PO Last administered on 07/19/18 09:03; Admin Dose 200 MG; Start 06/22/18 at 21:00 Ferrous Sulfate (Ferrous Sulfate (Ec)) 325 mg BID PO Last administered on 07/19/18 09:03; Admin Dose 325 MG; Start 07/09/18 at 09:30 Docusate Sodium (Colace) 100 mg DAILY PO Last administered on 07/19/18 09:03; Admin Dose 100 MG; Start 07/10/18 at 09:00 Miscellaneous Information (*Order Clarification Bulletin) PLEASE CLARIFY WITH MD... Q8H XX ; Start 07/13/18 at 11:00 Acetaminophen (Tylenol Tab) 650 mg Q6H PRN PO MILD PAIN(1-3)OR ELEVATED TEMP Last administered on 07/14/18 21:04; Admin Dose 650 MG; Start 07/14/18 at 21:00 Bumetanide (Bumex) 1 mg DAILY PO Last administered on 07/19/18 09:03; Admin Dose 1 MG; Start 07/15/18 at 09:00 Ertapenem 1 gm/ Sodium Chloride 100 ml @ 200 mls/hr Q24H IVPB Last administered on 07/19/18 11:26; Admin Dose 200 MLS/HR; Start 07/18/18 at 12:30; Stop 07/20/18 at 12:29 Warfarin Sodium (Coumadin) 5 mg DAILY@17 PO Last administered on 07/18/18 18:05; Admin Dose 5 MG; Start 07/18/18 at 17:30 KRISTY MCCULLOUGH Jul 19, 2018 15:41
[2018-07-19] MEDS: WARFARIN 5 MG TAB PO SCH (18:40)
[2018-07-19] MEDS: ATORVASTATIN 10 MG TAB PO SCH (21:29)
--- NOTE | 2018-07-19 21:42 | CONS ---
Consult Date/Type/Reason Admit Date/Time May 28, 2018 at 17:52 Initial Consult Date 06/03/18 Type of Consultation: Urology Reason for Consultation Pelvic hematoma with fistula into the bladder Requesting Provider: JULY VALNETIN MD Date/Time of Note DATE: 07/19/18 TIME: 21:31 Subjective Patient is comfortable, she denies having any pain. She is ambulating well. Objective Vitals Vital Signs Date Temp Pulse Resp B/P (MAP) Pulse Ox O2 O2 Flow FiO2 Time Delivery Rate 07/19/18 101 20:00 07/19/18 98.2 18 118/55 92 Room Air 19:46 (76) Intake and Output 07/18/18 07/18/18 07/19/18 1515:00 23:00 07:00 IntakeIntake Total 360 ml 600 ml 500 ml OutputOutput Total 2200 ml 900 ml BalanceBalance 360 ml -1600 ml -400 ml Exam The Mensah catheter is draining clear urine. It has some sediment in it at times. Results/Medications Result Diagram: 07/19/18 0635 07/19/18 0635 Results 24 hrs Laboratory Tests Test 07/19/18 06:35 07/19/18 10:15 White Blood Count 4.6 L Red Blood Count 2.99 L Hemoglobin 9.3 L Hematocrit 29.1 L Mean Corpuscular Volume 97.3 Mean Corpuscular Hemoglobin 31.1 Mean Corpuscular Hemoglobin Concent 32.0 Red Cell Distribution Width 15.9 H Platelet Count 205 Mean Platelet Volume 9.3 Immature Granulocytes % 0.900 H Neutrophils % 59.5 Lymphocytes % 28.0 Monocytes % 8.5 Eosinophils % 2.4 Basophils % 0.7 Nucleated Red Blood Cells % 0.0 Immature Granulocytes # 0.040 H Neutrophils # 2.8 Lymphocytes # 1.3 Monocytes # 0.4 Eosinophils # 0.1 Basophils # 0.0 Nucleated Red Blood Cells # 0.0 Prothrombin Time 34.0 #H Prothrombin Time Ratio 2.7 INR International Normalized Ratio 3.36 Sodium Level 137 Potassium Level 3.3 L Chloride Level 101 Carbon Dioxide Level 31 Anion Gap 5 Blood Urea Nitrogen 19 Creatinine 0.64 Est Glomerular Filtrat Rate mL/min > 60 Glucose Level 135 Calcium Level 9.1 Phosphorus Level 3.6 Magnesium Level 1.9 Urine Color YELLOW Urine Clarity TURBID A Urine pH 6.0 Urine Specific [place] 1.014 Urine Ketones NEGATIVE Urine Nitrite NEGATIVE Urine Bilirubin NEGATIVE Urine Urobilinogen NEGATIVE Urine Leukocyte Esterase 3+ H Urine Microscopic RBC 95 H Urine Microscopic WBC > 182 H Urine Bacteria FEW A Urine Hemoglobin 3+ H Urine Glucose NEGATIVE Urine Total Protein 2+ H Home Meds Reported Medications Albuterol Sulfate* (Ventolin HFA*) 18 Gm Hfa.aer.ad, 2 PUFF INHALATION Q4H, #1 INHALER 05/26/18 Ergocalciferol (Vitamin D2) (VITAMIN D2) 50,000 Unit Capsule, 86102 UNIT PO [id number], CAP 05/23/18 Warfarin Sodium* (Coumadin*) 5 Mg Tablet, 5 MG PO Q TUES,THUR,SAT, TAB 05/23/18 Warfarin Sodium* (Coumadin*) 4 Mg Tablet, 4 MG PO Q MON,WED,FRI,SUN, TAB 05/23/18 Furosemide* (Furosemide*) 20 Mg Tablet, 20 MG PO DAILY, #60 TAB TAKE Q 2 DAYS 05/23/18 Simvastatin* (Zocor*) 20 Mg Tablet, 20 MG PO QHS, #30 TAB 05/23/18 Ranitidine Hcl* (Ranitidine Hcl*) 150 Mg Tablet, 150 MG PO HS, #30 TAB 05/23/18 Acetaminophen (Mapap) 500 Mg Capsule, 500 MG PO BID PRN for PAIN, CAP 05/23/18 Levothyroxine Sodium* (Levothyroxine Sodium*) 50 Mcg Tablet, 50 MCG PO BEFORE BREAKFAST, #30 TAB 05/23/18 Spironolactone* (Aldactone*) 25 Mg Tablet, 25 MG PO DAILY, #30 TAB 05/23/18 Beclomethasone Dipropionate (Qvar Redihaler (40 MCG)) 10.6 Gm Hfa.aeroba, 10.6 GM IH DAILY, INH 05/23/18 Amlodipine Besylate* (Norvasc*) 5 Mg Tablet, 5 MG PO BID, TAB 05/23/18 Losartan-Hydrochlorothiazide (Losartan-HCTZ) 100-25 Mg Tab, 1 TAB PO DAILY, TAB 05/23/18 Medications Current Medications Levothyroxine Sodium (Synthroid) 50 mcg BEFORE BREAKFAST PO Last administered on 07/19/18at 06:20; Admin Dose 50 MCG; Start 05/30/18 at 07:00 Mometasone Furoate (Asmanex) 1 puff DAILY INH Last administered on 07/19/18 09:03; Admin Dose 1 PUFF; Start 05/29/18 at 11:00 Atorvastatin Calcium (Lipitor) 10 mg DAILY@21 PO Last administered on 07/19/18 21:29; Admin Dose 10 MG; Start 05/29/18 at 21:00 Latanoprost (Xalatan) 1 drop HS BOTH EYES Last administered on 07/18/18 20:35; Admin Dose 1 DROP; Start 06/01/18 at 21:00 Amlodipine Besylate (Norvasc) 5 mg DAILY PO ; Start 06/03/18 at 09:00; Status Hold Pantoprazole (Protonix Tab) 40 mg DAILY@06 PO Last administered on 07/19/18 06:20; Admin Dose 40 MG; Start 06/05/18 at 06:00 Metoclopramide HCl (Reglan) 5 mg TID PRN IV Nausea; Start 06/06/18 at 11:00 Polyethylene Glycol (Miralax) 17 gm BID PRN PO CONSTIPATION; Start 06/06/18 at 14:00 Bisacodyl (Dulcolax Supp) 10 mg DAILY PRN [place] CONSTIPATION; Start 06/06/18 at 14:00 IV Flush (NS 10 ml) 10 ml PRN PRN IV IV PROTOCOL; Start 06/06/18 at 16:00 Nystatin (Nystatin Susp) 5 ml QID PO Last administered on 07/19/18 21:28; Admin Dose 5 ML; Start 06/06/18 at 17:00 Docusate Sodium (Colace) 100 mg DAILY PRN PO CONSTIPATION; Start 06/21/18 at 12:00 Miscellaneous Information (Pending Santyl Order For Wound Care) This patient gomes... PRN PRN XX WOUND CARE; Start 06/21/18 at 16:00 Amiodarone HCl (Cordarone) 200 mg BID PO Last administered on 07/19/18 21:29; Admin Dose 200 MG; Start 06/22/18 at 21:00 Ferrous Sulfate (Ferrous Sulfate (Ec)) 325 mg BID PO Last administered on 07/19/18 21:29; Admin Dose 325 MG; Start 07/09/18 at 09:30 Docusate Sodium (Colace) 100 mg DAILY PO Last administered on 07/19/18 09:03; Admin Dose 100 MG; Start 07/10/18 at 09:00 Miscellaneous Information (*Order Clarification Bulletin) PLEASE CLARIFY WITH ... Q8H XX ; Start 07/13/18 at 11:00 Acetaminophen (Tylenol Tab) 650 mg Q6H PRN PO MILD PAIN(1-3)OR ELEVATED TEMP Last administered on 07/14/18at 21:04; Admin Dose 650 MG; Start 07/14/18 at 21:00 Bumetanide (Bumex) 1 mg DAILY PO Last administered on 07/19/18 09:03; Admin Dose 1 MG; Start 07/15/18 at 09:00 Ertapenem 1 gm/ Sodium Chloride 100 ml @ 200 mls/hr Q24H IVPB Last administered on 07/19/18 11:26; Admin Dose 200 MLS/HR; Start 07/18/18 at 12:30; Stop 07/20/18 at 12:29 Warfarin Sodium (Coumadin) 5 mg DAILY@17 PO Last administered on 07/19/18at 18:40; Admin Dose 5 MG; Start 07/18/18 at 17:30 Imaging Pelvic ultrasound: Complex fluid collection about the anterior superior bladder measuring up to 10.0 x 8.6 x 7.2 cm. Bladder wall thickening Assessment/Plan Hospital Course (Demo Recall) 62-year-old female underwent coronary angiogram. She did have right femoral artery bleeding with a pseudoaneurysm which was managed by undergoing: Covered stent placement 6 x 100 mm right common femoral artery and right external iliac artery The patient had a pelvic hematoma which has fistulized into the bladder. She has a Mensah catheter which was draining bloody urine initially but now the drainage is clear. The size of the hematoma has been decreasing. CT cystogram was done today and that showed: 1. There is a fluid and air collection anterior to the empty urinary bladder measuring approximate 13 cm transverse by 10 cm AP by 6 cm cranial caudal. This is unchanged from the previous study of 07/02/2018. 2. Fistula demonstrated between the urinary bladder and the anterior pelvic fluid collection. The fistulous tract measures 12 mm in diameter. 3. Contrast material is seen within the vaginal canal. 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 The site of fistula appears to be the mid urethra, as demonstrated on sagittal reformatted images. I did talk to the patient with her son and her who were in her room. Explained to them the finding of the CT scan. 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 Discussed the treatment options which include waiting with the hope that the fistula will close by itself with times. And as far as the fistula in the mid urethra since that is distal to the sphincter probably just leave it alone. We discussed options of surgery to drain the suprapubic and pelvic hematoma and closed the bladder. Discussed the risks of infection and the usual risks especially considering her general medical and cardiac condition. I also discussed with them having a second opinion with another urologist. I did review the CT cystogram with another radiologist. 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 As the contrast went into the vagina from the urethra and that was what the radiologist thought it is a fistula. Therefore the patient only has the hematoma on the right side of the bladder with the fistula into the bladder. I did discuss with her son who was at her bedside the findings and again the treatment options. He asked me about laparoscopic surgery. I told him I do not do laparoscopic surgery and in her case it may not be feasible because of her prior pelvic surgery with possible adhesions. We discussed how long would take for this bladder fistula to close on its own and the option of surgical intervention with the associated risks co nsidering her general medical condition. JOAQUIN DE LEON MD Jul 19, 2018 21:41
[2018-07-19] MEDS: LATANOPROST 0.005% 2.5 ML OPH BOTH EYES SCH (22:45)
[2018-07-20] VITALS (12 sets, daily range): BP systolic 105–139; BP diastolic 55–59; PULSE 73–115; RESP 18–20
[2018-07-20] MEDS: LEVOTHYROXINE 50 MCG TAB PO SCH (06:16)
[2018-07-20] MEDS: PANTOPRAZOLE (EC) 40 MG TAB PO SCH (06:16)
[2018-07-20] MEDS: BUMETANIDE 1 MG TAB PO SCH (08:27)
[2018-07-20] MEDS: FERROUS SULFATE (EC) 325 MG TAB PO SCH ×2 (08:27→21:33)
[2018-07-20] MEDS: DOCUSATE SODIUM 100 MG CAP PO SCH (08:27)
[2018-07-20] MEDS: NYSTATIN SUSP 5 ML CUP PO SCH ×4 (08:27→21:33)
[2018-07-20] MEDS: AMIODARONE 200 MG TAB PO SCH ×2 (08:28→21:33)
--- NOTE | 2018-07-20 09:11 | PN ---
DATE: 07/20/2018 SUBJECTIVE: The patient remains stable. No events overnight. No fevers, chills, nausea, vomiting. OBJECTIVE: VITAL SIGNS: Blood pressure is 117/56, pulse 80, respirations 20, temperature 97.9. HEENT: Head is normocephalic. NECK: Supple. HEART: Regular rate. LUNGS: Show diminished breath sounds at the base. ABDOMEN: Soft, nontender to palpation without rebound or guarding. EXTREMITIES: Negative for clubbing, cyanosis, no edema. DERMATOLOGIC: No rashes. MUSCULOSKELETAL: No joint effusion. NEUROLOGIC: No change in exam. MEDICATIONS: The patient's medications have been reviewed. LABORATORY DATA: Has been reviewed. ASSESSMENT AND PLAN: 1. Nonoliguric acute kidney injury with previously normal baseline creatinine. Etiology of FORREST is s econdary to acute tubular necrosis. Renal function is improved. Continue current treatment plan, concepcion pportive care, renally dose all meds. 2. Hematuria, resolved. 3. Volume overload, improving. Continue current diuretic regimen. 4. Hypokalemia. Continue to monitor and replete. 5. Anemia. Monitor hemoglobin and hematocrit levels. 6. Mechanical heart valve. Continue anticoagulation per cardiology. 7. Sepsis secondary to urinary tract infection. Continue current antibiotic regimen. 8. Hypothyroidism. Continue Synthroid. 9. Dyslipidemia. Continue statin therapy. 10. Hypertension. Continue current blood pressure regimen. 11. Urinary tract infection. 12. Liver cirrhosis. Continue medical management. 13. Intraabdominal hematoma. Dictated By: GWYN FABIAN DO NR/NTS Conf#: [id number] DID#: [id number] CC: JULY VALENTIN MD; JOAQUIN DE LEON MD; CHRIS LAZAR MD;*EndCC*
[2018-07-20] MEDS: MOMETASONE 0.24 GM INHALER INH SCH (09:22)
--- NOTE | 2018-07-20 09:28 | CONS ---
Assessment/Plan Assessment/Plan Hospital Course (Demo Recall) # sepsis, cardiopulmonary - s/p severe sepsis due to UTI, resolved - s/p SIRS due to acute blood loss, resolved - s/p L heart catheterization on 05/27/2018 showing no significant obstructive CAD - CAD - s/p CABG in [facility] in 1982 - H/o MVR with mechanical valve, in 1999 - Hypertension - PAF - Asthma # urology/renal, GI - recurrent UTI due to - prelim citrobacter Freundii, Enterococcus species, enterobacter cloacae complex, alfredo albicans; s/p pip/tazo, on merrem - hematuria caused by ruptured urinary bladder (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 On the report, contrast material was identified within the vaginal canal; however, according to Dr. Ashford, this does not represent a fistulous tract between urethra and vagina - US Abdomen 07/18/18 showed Complex fluid collection about the anterior superior bladder measuring up to 10.0 x 8.6 x 7.2 cm. Bladder wall thickening. - Mensah was exchanged on 07/12/2018 and 07/14/2018 because her older catheter was leaking - s/p UTI due to hafnai alvei and pediococci on 06/30/18. Pt completed pip/tazo (07/02/18-07/05/2018) for this episode - S/p UTI due to E. coli. 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 Hughes. Thank you Consultation Date/Type/Reason Admit Date/Time May 28, 2018 at 17:52 Initial Consult Date 06/03/18 Type of Consult ID Requesting Provider: JULY VALENTIN MD Date/Time of Note DATE: 07/20/18 TIME: 09:22 24 HR Interval Summary Free Text/Dictation The patient has remained afebrile with no acute issues reported by nursing. Per d/w patient, her , and daughter at bedside, they are considering transferring to another facility and awaiting a rn case manager hospice to speak with them because they are thinking about that they want a laparoscopic surgery to be done. The daughter expresses worry that her mom has been in the hospital for so long and she worries regarding infections, or "the hole not closing." A 10pt review of systems was reviewed and patient denied all. She has been ambulating in the room with help of walker and with . Exam/Review of Systems Exam Vitals Vital Signs Date Temp Pulse Resp B/P (MAP) Pulse Ox O2 O2 Flow FiO2 Time Delivery Rate 07/20/18 74 08:20 07/20/18 97.9 20 117/56 98 07:07 (76) 07/20/18 Room Air 04:00 Intake and Output 07/19/18 07/19/18 07/20/18 1515:00 23:00 07:00 IntakeIntake Total 1000 ml 950 ml OutputOutput Total 2000 ml 1100 ml BalanceBalance -1000 ml -150 ml Allergies Coded Allergies No Known Allergy (Unverified07/17/18) . Exam Constitutional: alert, oriented, well developed, other (sitting up in bed, in NAD) Psych: no complaints, nl mood/affect (smiling) Head: normocephalic, atraumatic Eyes: nl conjunctiva, nl lids, nl sclera ENMT: nl external ears & nose, nl nasal mucosa & septum, mucosa pink and moist (no thrush) Neck: supple, non-tender Respiratory: clear to auscultation, normal air movement Cardiovascular: regular rate and rhythm, nl pulses Gastrointestinal: soft, non-tender, bowel sounds (normoactive) Genitourinary - Female: other (+f/c) Musculoskeletal: nl extremities to inspection Extremities: normal pulses Neurological: CANCER PROGRAM COORDINATOR II-XII intact, nl mental status, nl speech, nl strength Skin: nl turgor, ecchymosis (scattered); No rash or lesions Results Result Diagram: 07/20/1848 07/20/18 0548 Results 24hrs Laboratory Tests Test 07/19/18 10:15 07/20/18 05:48 Urine Color YELLOW Urine Clarity TURBID A Urine pH 6.0 Urine Specific [place] 1.014 Urine Ketones NEGATIVE Urine Nitrite NEGATIVE Urine Bilirubin NEGATIVE Urine Urobilinogen NEGATIVE Urine Leukocyte Esterase 3+ H Urine Microscopic RBC 95 H Urine Microscopic WBC > 182 H Urine Bacteria FEW A Urine Hemoglobin 3+ H Urine Glucose NEGATIVE Urine Total Protein 2+ H White Blood Count 4.4 L Red Blood Count 2.99 L Hemoglobin 9.5 L Hematocrit 29.5 L Mean Corpuscular Volume 98.7 Mean Corpuscular Hemoglobin 31.8 Mean Corpuscular Hemoglobin Concent 32.2 Red Cell Distribution Width 16.1 H Platelet Count 225 Mean Platelet Volume 9.2 Immature Granulocytes % 2.000 H Neutrophils % 60.0 Lymphocytes % 26.8 Monocytes % 8.2 Eosinophils % 2.3 Basophils % 0.7 Nucleated Red Blood Cells % 0.0 Immature Granulocytes # 0.090 H Neutrophils # 2.6 Lymphocytes # 1.2 Monocytes # 0.4 Eosinophils # 0.1 Basophils # 0.0 Nucleated Red Blood Cells # 0.0 Prothrombin Time 34.2 H Prothrombin Time Ratio 2.7 INR International Normalized Ratio 3.38 Sodium Level 137 Potassium Level 3.9 Chloride Level 99 Carbon Dioxide Level 30 Anion Gap 8 Blood Urea Nitrogen 20 Creatinine 0.65 Est Glomerular Filtrat Rate mL/min > 60 Glucose Level 125 Calcium Level 9.1 Phosphorus Level 4.0 Magnesium Level 1.8 Imaging Imaging Pelvis US 07/18/18 IMPRESSION: Complex fluid collection about the anterior superior bladder measuring up to 10.0 x 8.6 x 7.2 cm. Bladder wall thickening Medications Medication Current Medications Levothyroxine Sodium (Synthroid) 50 mcg BEFORE BREAKFAST PO Last administered on 07/20/18 06:16; Admin Dose 50 MCG; Start 05/30/18 at 07:00 Mometasone Furoate (Asmanex) 1 puff DAILY INH Last administered on 07/19/18 09:03; Admin Dose 1 PUFF; Start 05/29/18 at 11:00 Atorvastatin Calcium (Lipitor) 10 mg DAILY@21 PO Last administered on 07/19/18 21:29; Admin Dose 10 MG; Start 05/29/18 at 21:00 Latanoprost (Xalatan) 1 drop HS BOTH EYES Last administered on 07/19/18 22:45; Admin Dose 1 DROP; Start 06/01/18 at 21:00 Amlodipine Besylate (Norvasc) 5 mg DAILY PO ; Start 06/03/18 at 09:00; Status Hold Pantoprazole (Protonix Tab) 40 mg DAILY@06 PO Last administered on 07/20/18 06:16; Admin Dose 40 MG; Start 06/05/18 at 06:00 Metoclopramide HCl (Reglan) 5 mg TID PRN IV Nausea; Start 06/06/18 at 11:00 Polyethylene Glycol (Miralax) 17 gm BID PRN PO CONSTIPATION; Start 06/06/18 at 14:00 Bisacodyl (Dulcolax Supp) 10 mg DAILY PRN [place] CONSTIPATION; Start 06/06/18 at 14:00 IV Flush (NS 10 ml) 10 ml PRN PRN IV IV PROTOCOL; Start 06/06/18 at 16:00 Nystatin (Nystatin Susp) 5 ml QID PO Last administered on 07/20/18 08:27; Admin Dose 5 ML; Start 06/06/18 at 17:00 Docusate Sodium (Colace) 100 mg DAILY PRN PO CONSTIPATION; Start 06/21/18 at 12:00 Miscellaneous Information (Pending Santyl Order For Wound Care) This patient gomes... PRN PRN XX WOUND CARE; Start 06/21/18 at 16:00 Amiodarone HCl (Cordarone) 200 mg BID PO Last administered on 07/20/18 08:28; Admin Dose 200 MG; Start 06/22/18 at 21:00 Ferrous Sulfate (Ferrous Sulfate (Ec)) 325 mg BID PO Last administered on 07/20/18 08:27; Admin Dose 325 MG; Start 07/09/18 at 09:30 Docusate Sodium (Colace) 100 mg DAILY PO Last administered on 07/20/18 08:27; Admin Dose 100 MG; Start 07/10/18 at 09:00 Miscellaneous Information (*Order Clarification Bulletin) PLEASE CLARIFY WITH ... Q8H XX ; Start 07/13/18 at 11:00 Acetaminophen (Tylenol Tab) 650 mg Q6H PRN PO MILD PAIN(1-3)OR ELEVATED TEMP Last administered on 07/14/18 21:04; Admin Dose 650 MG; Start 07/14/18 at 21:00 Bumetanide (Bumex) 1 mg DAILY PO Last administered on 07/20/18 08:27; Admin Dose 1 MG; Start 07/15/18 at 09:00 Ertapenem 1 gm/ Sodium Chloride 100 ml @ 200 mls/hr Q24H IVPB Last administered on 07/19/18 11:26; Admin Dose 200 MLS/HR; Start 07/18/18 at 12:30; Stop 07/20/18 at 12:29 Warfarin Sodium (Coumadin) 5 mg DAILY@17 PO Last administered on 07/19/18 18:40; Admin Dose 5 MG; Start 07/18/18 at 17:30 WILIAM HUI NP Jul 20, 2018 09:28
--- NOTE | 2018-07-20 11:54 | PN ---
Date/Time of Note Date/Time of Note DATE: 07/20/18 TIME: 11:50 Assessment/Plan VTE Prophylaxis Risk score (from Ns)>0 risk: 2 SCD applied (from Nsg): Yes Pharmacological prophylaxis: warfarin tx Lines/Catheters IV Catheter Type (from Nrs): PICC Line Central line still needed: Yes Urinary Cath still in place: Yes Reason Cath still needed: other (indicate) Assessment/Plan Hospital Course Patient remains hemodynamically stable, denies pain, clear urine Via Mensah catheter. Completing treatment for UTI. INR is 3.36 patient is continued on Coumadin 5 mg daily. Pending family decision regarding treatment options. 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 Continue Mensah, monitor. Dr. Ashford is following in urology consultation. -Polymicrobial UTI, continue antibiotics per ID. Dr. Castellanos is following in infection disease consultation. -Anemia of acute blood loss, transfuse PRN, monitor H&H. 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 -S/p Nose/oropharyngeal bleed on 06/11/2018, stopped after heparin was held. -Retroperitoneal bleed secondary to vascular injury status post stent placement. S/p CT guided placement of drainage catheter into pelvic hematoma on 06/05/18 and sequent removal. -Status post left heart catheterization with no significant obstructive coronary artery disease by Dr. Moreno on 05/27/2018. -Anemia of acute blood loss, status post blood transfusion, continue to monitor hemoglobin and hematocrit. -Urinary incontinence. -Acute illness myopathy -Status post mitral valve replacement with mechanical valve in 1999. Continue Coumadin, monitor PT/INR. -HTN, continue metoprolol -Hyperlipidemia -Hypothyroidism, continue levothyroxine -History of asthma Further recommendations based on clinical course. Plan of care discussed with Dr. Painter. Result Diagram: 07/20/18 0548 07/20/18 0548 Results 24hrs Laboratory Tests Test 07/20/18 05:48 White Blood Count 4.4 L Red Blood Count 2.99 L Hemoglobin 9.5 L Hematocrit 29.5 L Mean Corpuscular Volume 98.7 Mean Corpuscular Hemoglobin 31.8 Mean Corpuscular Hemoglobin Concent 32.2 Red Cell Distribution Width 16.1 H Platelet Count 225 Mean Platelet Volume 9.2 Immature Granulocytes % 2.000 H Neutrophils % 60.0 Lymphocytes % 26.8 Monocytes % 8.2 Eosinophils % 2.3 Basophils % 0.7 Nucleated Red Blood Cells % 0.0 Immature Granulocytes # 0.090 H Neutrophils # 2.6 Lymphocytes # 1.2 Monocytes # 0.4 Eosinophils # 0.1 Basophils # 0.0 Nucleated Red Blood Cells # 0.0 Prothrombin Time 34.2 H Prothrombin Time Ratio 2.7 INR International Normalized Ratio 3.38 Sodium Level 137 Potassium Level 3.9 Chloride Level 99 Carbon Dioxide Level 30 Anion Gap 8 Blood Urea Nitrogen 20 Creatinine 0.65 Est Glomerular Filtrat Rate mL/min > 60 Glucose Level 125 Calcium Level 9.1 Phosphorus Level 4.0 Magnesium Level 1.8 Exam/Review of Systems Exam Vitals Vital Signs Date Temp Pulse Resp B/P (MAP) Pulse Ox O2 O2 Flow FiO2 Time Delivery Rate 07/20/18 97.7 83 20 131/59 95 11:14 (83) 07/20/18 Room Air 04:00 Intake and Output 07/19/18 07/19/18 07/20/18 1515:00 23:00 07:00 IntakeIntake Total 1000 ml 950 ml OutputOutput Total 2000 ml 1100 ml BalanceBalance -1000 ml -150 ml Exam Constitutional: alert, oriented Respiratory: clear to auscultation Cardiovascular: irregular rhythm Gastrointestinal: soft, non-tender Genitourinary - Female: other (Mensah) Extremities: normal pulses Neurological: nl mental status Skin: nl turgor Results Results 24hrs Laboratory Tests Test 07/20/18 05:48 White Blood Count 4.4 L Red Blood Count 2.99 L Hemoglobin 9.5 L Hematocrit 29.5 L Mean Corpuscular Volume 98.7 Mean Corpuscular Hemoglobin 31.8 Mean Corpuscular Hemoglobin Concent 32.2 Red Cell Distribution Width 16.1 H Platelet Count 225 Mean Platelet Volume 9.2 Immature Granulocytes % 2.000 H Neutrophils % 60.0 Lymphocytes % 26.8 Monocytes % 8.2 Eosinophils % 2.3 Basophils % 0.7 Nucleated Red Blood Cells % 0.0 Immature Granulocytes # 0.090 H Neutrophils # 2.6 Lymphocytes # 1.2 Monocytes # 0.4 Eosinophils # 0.1 Basophils # 0.0 Nucleated Red Blood Cells # 0.0 Prothrombin Time 34.2 H Prothrombin Time Ratio 2.7 INR International Normalized Ratio 3.38 Sodium Level 137 Potassium Level 3.9 Chloride Level 99 Carbon Dioxide Level 30 Anion Gap 8 Blood Urea Nitrogen 20 Creatinine 0.65 Est Glomerular Filtrat Rate mL/min > 60 Glucose Level 125 Calcium Level 9.1 Phosphorus Level 4.0 Magnesium Level 1.8 Medications Medication Current Medications Levothyroxine Sodium (Synthroid) 50 mcg BEFORE BREAKFAST PO Last administered on 07/20/18 06:16; Admin Dose 50 MCG; Start 05/30/18 at 07:00 Mometasone Furoate (Asmanex) 1 puff DAILY INH Last administered on 07/20/18 09:22; Admin Dose 1 PUFF; Start 05/29/18 at 11:00 Atorvastatin Calcium (Lipitor) 10 mg DAILY@21 PO Last administered on 07/19/18 21:29; Admin Dose 10 MG; Start 05/29/18 at 21:00 Latanoprost (Xalatan) 1 drop HS BOTH EYES Last administered on 07/19/18at 22:45; Admin Dose 1 DROP; Start 06/01/18 at 21:00 Amlodipine Besylate (Norvasc) 5 mg DAILY PO ; Start 06/03/18 at 09:00; Status Hold Pantoprazole (Protonix Tab) 40 mg DAILY@06 PO Last administered on 07/20/18at 06:16; Admin Dose 40 MG; Start 06/05/18 at 06:00 Metoclopramide HCl (Reglan) 5 mg TID PRN IV Nausea; Start 06/06/18 at 11:00 Polyethylene Glycol (Miralax) 17 gm BID PRN PO CONSTIPATION; Start 06/06/18 at 14:00 Bisacodyl (Dulcolax Supp) 10 mg DAILY PRN [place] CONSTIPATION; Start 06/06/18 at 14:00 IV Flush (NS 10 ml) 10 ml PRN PRN IV IV PROTOCOL; Start 06/06/18 at 16:00 Nystatin (Nystatin Susp) 5 ml QID PO Last administered on 07/20/18at 08:27; Admin Dose 5 ML; Start 06/06/18 at 17:00 Docusate Sodium (Colace) 100 mg DAILY PRN PO CONSTIPATION; Start 06/21/18 at 12:00 Miscellaneous Information (Pending [facility] Order For Wound Care) This patient gomes... PRN PRN XX WOUND CARE; Start 06/21/18 at 16:00 Amiodarone HCl (Cordarone) 200 mg BID PO Last administered on 07/20/18 08:28; Admin Dose 200 MG; Start 06/22/18 at 21:00 Ferrous Sulfate (Ferrous Sulfate (Ec)) 325 mg BID PO Last administered on 07/20/18 08:27; Admin Dose 325 MG; Start 07/09/18 at 09:30 Docusate Sodium (Colace) 100 mg DAILY PO Last administered on 07/20/18 08:27; Admin Dose 100 MG; Start 07/10/18 at 09:00 Miscellaneous Information (*Order Clarification Bulletin) PLEASE CLARIFY WITH MD... Q8H XX ; Start 07/13/18 at 11:00 Acetaminophen (Tylenol Tab) 650 mg Q6H PRN PO MILD PAIN(1-3)OR ELEVATED TEMP Last administered on 07/14/18 21:04; Admin Dose 650 MG; Start 07/14/18 at 21:00 Bumetanide (Bumex) 1 mg DAILY PO Last administered on 07/20/18 08:27; Admin Dose 1 MG; Start 07/15/18 at 09:00 Ertapenem 1 gm/ Sodium Chloride 100 ml @ 200 mls/hr Q24H IVPB Last administered on 07/19/18 11:26; Admin Dose 200 MLS/HR; Start 07/18/18 at 12:30; Stop 07/20/18 at 12:29 Warfarin Sodium (Coumadin) 5 mg DAILY@17 PO Last administered on 07/19/18 18:40; Admin Dose 5 MG; Start 07/18/18 at 17:30 KRISTY MCCULLOUGH Jul 20, 2018 11:54
[2018-07-20] MEDS: WARFARIN 5 MG TAB PO SCH (17:12)
--- NOTE | 2018-07-20 19:17 | CONS ---
Assessment/Plan Assessment/Plan Hospital Course (Demo Recall) IMP: 1.cad s/p LHC with no sig obstructive cad. Mildly depressed LVEF--40-45% ? nonischemic process 2.HTN 3.RP Bleed s/p transfusions now stable and tolerating heparin/coumadin loading. Then had recurrent bled overnight now s/p covered stent to PICTURE COPYIST/Ext iliac. Stable collection by abd CT 06/06 but still with pigtail catheter in place 4.HL 5.MVR-mechanical 6.anemia- s/p repair of R PICTURE COPYIST/illiac. Had hemoptysis with subsequent drop in Hgb again and holding of heparin. Had some mild blood tinged sputum 7.Hypothyroid 8. GOMES-negative Head CT 9. Fevers-with positive ua 10. UTI-Being followed by ID and on abx 11.ARF-? 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 Coagulopathy-downtrenede and resumed on couamadin with midly subtherapeutic INR 14. LE weakness-? compression from hematoma and exacerbated by femoral compression after cath-now resolved 15. arterial insuff- LLE- s/p DIE LAY OUT WORKER/thrombolysis 06/04 successfully with palpable pulses/B DP/PT and remain that way 16. PAF/AFL-rate controlled 17. 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 Now decreasing hematuria. s/p pelvic CT revealing ongoing fistula and per urology note was discussed with family 18. Epistaxis-improved/resolved. no recurrence 19. 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 ? new , ? etiology. Urology following and per his note has discussed treatment options with family including surgical versus waiting and thought that waiting would be best at this time Recc: -Now on tele -Continue BB with well controlled Hr's -Continue statin -s/p course of abx's -ongoing ID f/u -F/U secondary art teacher/K closely with creatnine now normalized and volume status improving on bumex bid. Will also assess patient's PO intake and possible contribution to volume overload -Follow HGb closely which has been stable to improved actually -PT/ambulation- doing 3x/day -will continue amio bid for now and follow rhythm clsoely with patient having episodes of PAF/AFL but always rate controlled -Urology following with findings of apparent bladder fistula and thus draining of the hematoma through the bladder causing hematuria which has improved and now apparent bladder-vaginal fistula.Continue to follow hematuria for complete resolution and assess need for spontaneous closure versus need for repair which has been discussed with family and urology and between them as well. ? necessity of closing fistula at this time given clarity of urine/resolution of hematuria. Will discuss with urology/PMD, ? possibility of allowing patient to be d/c'd and followed as an outpatient? -Now back on coumadin with supratherapeutic again. Will follow -Continue current bumex now daily PO again with improved volume status Consultation Date/Type/Reason Admit Date/Time May 28, 2018 at 17:52 Initial Consult Date 05/28/18 Type of Consult Cardiology Reason for Consultation MVR Requesting Provider: JULY VALENTIN MD Date/Time of Note DATE: 07/20/18 TIME: 19:15 Exam/Review of Systems Vital Signs Vitals Vital Signs Date Temp Pulse Resp B/P (MAP) Pulse Ox O2 O2 Flow FiO2 Time Delivery Rate 07/20/18 75 16:46 07/20/18 97.7 20 134/55 95 15:04 (81) 07/20/18 Room Air 04:00 Intake and Output 07/19/18 07/19/18 07/20/18 1515:00 23:00 07:00 IntakeIntake Total 1000 ml 950 ml OutputOutput Total 2000 ml 1100 ml BalanceBalance -1000 ml -150 ml Exam Exam Review of Systems: CONSTITUTIONAL: No fevers, chills. PULMONARY: No sob CARDIOVASCULAR: No chest pain/palpitations GASTROINTESTINAL: No nausea/vomiting. GENITOURINARY: No hematuria/dysuria. MUSCULOSKELETAL: No myagias/arthalgias. PSYCHIATRIC: The patient denies depression. NEUROLOGIC: No weakness Constitutional: alert, oriented Psych: no complaints Head: normocephalic ENMT: mucosa pink and moist Neck: supple, jvd (9 cm water) Respiratory: clear to auscultation Cardiovascular: regular rate and rhythm Gastrointestinal: soft, non-tender Musculoskeletal: muscle tone (normal) Extremities: edema (none) Neurological: other (No focval deficits) Labs Result Diagram: 07/20/1848 4/10/19 0548 Results 24hrs Laboratory Tests Test 07/20/18 05:48 White Blood Count 4.4 L Red Blood Count 2.99 L Hemoglobin 9.5 L Hematocrit 29.5 L Mean Corpuscular Volume 98.7 Mean Corpuscular Hemoglobin 31.8 Mean Corpuscular Hemoglobin Concent 32.2 Red Cell Distribution Width 16.1 H Platelet Count 225 Mean Platelet Volume 9.2 Immature Granulocytes % 2.000 H Neutrophils % 60.0 Lymphocytes % 26.8 Monocytes % 8.2 Eosinophils % 2.3 Basophils % 0.7 Nucleated Red Blood Cells % 0.0 Immature Granulocytes # 0.090 H Neutrophils # 2.6 Lymphocytes # 1.2 Monocytes # 0.4 Eosinophils # 0.1 Basophils # 0.0 Nucleated Red Blood Cells # 0.0 Prothrombin Time 34.2 H Prothrombin Time Ratio 2.7 INR International Normalized Ratio 3.38 Sodium Level 137 Potassium Level 3.9 Chloride Level 99 Carbon Dioxide Level 30 Anion Gap 8 Blood Urea Nitrogen 20 Creatinine 0.65 Est Glomerular Filtrat Rate mL/min > 60 Glucose Level 125 Calcium Level 9.1 Phosphorus Level 4.0 Magnesium Level 1.8 Medications Medications Current Medications Levothyroxine Sodium (Synthroid) 50 mcg BEFORE BREAKFAST PO Last administered on 07/20/18at 06:16; Admin Dose 50 MCG; Start 05/30/18 at 07:00 Mometasone Furoate (Asmanex) 1 puff DAILY INH Last administered on 07/20/18at 09:22; Admin Dose 1 PUFF; Start 05/29/18 at 11:00 Atorvastatin Calcium (Lipitor) 10 mg DAILY@21 PO Last administered on 07/19/18at 21:29; Admin Dose 10 MG; Start 05/29/18 at 21:00 Latanoprost (Xalatan) 1 drop HS BOTH EYES Last administered on 07/19/18at 22:45; Admin Dose 1 DROP; Start 06/01/18 at 21:00 Amlodipine Besylate (Norvasc) 5 mg DAILY PO ; Start 06/03/18 at 09:00; Status Hold Pantoprazole (Protonix Tab) 40 mg DAILY@06 PO Last administered on 07/20/18at 06:16; Admin Dose 40 MG; Start 06/05/18 at 06:00 Metoclopramide HCl (Reglan) 5 mg TID PRN IV Nausea; Start 06/06/18 at 11:00 Polyethylene Glycol (Miralax) 17 gm BID PRN PO CONSTIPATION; Start 06/06/18 at 14:00 Bisacodyl (Dulcolax Supp) 10 mg DAILY PRN [place] CONSTIPATION; Start 06/06/18 at 14:00 IV Flush (NS 10 ml) 10 ml PRN PRN IV IV PROTOCOL; Start 06/06/18 at 16:00 Nystatin (Nystatin Susp) 5 ml QID PO Last administered on 07/20/18 17:12; Admi n Dose 5 ML; Start 06/06/18 at 17:00 Docusate Sodium (Colace) 100 mg DAILY PRN PO CONSTIPATION; Start 06/21/18 at 12:00 Miscellaneous Information (Pending Santyl Order For Wound Care) This patient gomes ... PRN PRN XX WOUND CARE; Start 06/21/18 at 16:00 Amiodarone HCl (Cordarone) 200 mg BID PO Last administered on 07/20/18 08:28; Admin Dose 200 MG; Start 06/22/18 at 21:00 Ferrous Sulfate (Ferrous Sulfate (Ec)) 325 mg BID PO Last administered on 07/20/18 08:27; Admin Dose 325 MG; Start 07/09/18 at 09:30 Docusate Sodium (Colace) 100 mg DAILY PO Last administered on 07/20/18 08:27; Admin Dose 100 MG; Start 07/10/18 at 09:00 Miscellaneous Information (*Order Clarification Bulletin) PLEASE CLARIFY WITH MD... Q8H XX ; Start 07/13/18 at 11:00 Acetaminophen (Tylenol Tab) 650 mg Q6H PRN PO MILD PAIN(1-3)OR ELEVATED TEMP Last administered on 07/14/18 21:04; Admin Dose 650 MG; Start 07/14/18 at 21:00 Bumetanide (Bumex) 1 mg DAILY PO Last administered on 07/20/18 08:27; Admin Dose 1 MG; Start 07/15/18 at 09:00 Warfarin Sodium (Coumadin) 5 mg DAILY@17 PO Last administered on 07/20/18 17:12; Admin Dose 5 MG; Start 07/18/18 at 17:30 CHRIS LAZAR Jul 20, 2018 19:17
[2018-07-20] MEDS: LATANOPROST 0.005% 2.5 ML OPH BOTH EYES SCH (21:33)
[2018-07-20] MEDS: ATORVASTATIN 10 MG TAB PO SCH (21:33)
[2018-07-21] VITALS (11 sets, daily range): BP systolic 102–128; BP diastolic 49–62; PULSE 73–111; RESP 18–19
[2018-07-21] MEDS: PANTOPRAZOLE (EC) 40 MG TAB PO SCH (06:08)
[2018-07-21] MEDS: LEVOTHYROXINE 50 MCG TAB PO SCH (06:08)
[2018-07-21] MEDS: NYSTATIN SUSP 5 ML CUP PO SCH ×4 (08:27→20:52)
[2018-07-21] MEDS: BUMETANIDE 1 MG TAB PO SCH (08:27)
[2018-07-21] MEDS: MOMETASONE 0.24 GM INHALER INH SCH (08:27)
[2018-07-21] MEDS: AMIODARONE 200 MG TAB PO SCH ×2 (08:28→20:52)
[2018-07-21] MEDS: FERROUS SULFATE (EC) 325 MG TAB PO SCH ×2 (08:28→20:52)
[2018-07-21] MEDS: DOCUSATE SODIUM 100 MG CAP PO SCH (08:28)
--- NOTE | 2018-07-21 08:43 | CONS ---
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 Requesting Provider: JULY VALENTIN MD Date/Time of Note DATE: 07/21/18 TIME: 08:36 Subjective The patient denies having any pain and she is comfortable. Objective Vitals Vital Signs Date Temp Pulse Resp B/P (MAP) Pulse Ox O2 O2 Flow FiO2 Time Delivery Rate 07/21/18 98.0 99 19 112/53 93 07:18 (72) 07/20/18 Room Air 04:00 Intake and Output 07/20/18 07/20/18 07/21/18 1414:59 22:59 06:59 IntakeIntake Total 900 ml OutputOutput Total 1800 ml 900 ml BalanceBalance -900 ml -900 ml Exam The abdomen is soft and the Mensah catheter is draining clear urine Results/Medications Result Diagram: 07/20/18 0548 07/20/18 0548 Home Meds Reported Medications Albuterol Sulfate* (Ventolin HFA*) 18 Gm Hfa.aer.ad, 2 PUFF INHALATION Q4H, #1 INHALER 05/26/18 Ergocalciferol (Vitamin D2) (VITAMIN D2) 50,000 Unit Capsule, 87861 UNIT PO [id number], CAP 05/23/18 Warfarin Sodium* (Coumadin*) 5 Mg Tablet, 5 MG PO Q TUES,THUR,SAT, TAB 05/23/18 Warfarin Sodium* (Coumadin*) 4 Mg Tablet, 4 MG PO Q MON,WED,FRI,SUN, TAB 05/23/18 Furosemide* (Furosemide*) 20 Mg Tablet, 20 MG PO DAILY, #60 TAB TAKE Q 2 DAYS 05/23/18 Simvastatin* (Zocor*) 20 Mg Tablet, 20 MG PO QHS, #30 TAB 05/23/18 Ranitidine Hcl* (Ranitidine Hcl*) 150 Mg Tablet, 150 MG PO HS, #30 TAB 05/23/18 Acetaminophen (Mapap) 500 Mg Capsule, 500 MG PO BID PRN for PAIN, CAP 05/23/18 Levothyroxine Sodium* (Levothyroxine Sodium*) 50 Mcg Tablet, 50 MCG PO BEFORE BREAKFAST, #30 TAB 05/23/18 Spironolactone* (Aldactone*) 25 Mg Tablet, 25 MG PO DAILY, #30 TAB 05/23/18 Beclomethasone Dipropionate (Qvar Redihaler (40 MCG)) 10.6 Gm Hfa.aeroba, 10.6 GM IH DAILY, INH 05/23/18 Amlodipine Besylate* (Norvasc*) 5 Mg Tablet, 5 MG PO BID, TAB 05/23/18 Losartan-Hydrochlorothiazide (Losartan-HCTZ) 100-25 Mg Tab, 1 TAB PO DAILY, TAB 05/23/18 Medications Current Medications Levothyroxine Sodium (Synthroid) 50 mcg BEFORE BREAKFAST PO Last administered on 07/21/18 06:08; Admin Dose 50 MCG; Start 05/30/18 at 07:00 Mometasone Furoate (Asmanex) 1 puff DAILY INH Last administered on 07/21/18 08:27; Admin Dose 1 PUFF; Start 05/29/18 at 11:00 Atorvastatin Calcium (Lipitor) 10 mg DAILY@21 PO Last administered on 07/20/18at 21:33; Admin Dose 10 MG; Start 05/29/18 at 21:00 Latanoprost (Xalatan) 1 drop HS BOTH EYES Last administered on 07/20/18 21:33; Admin Dose 1 DROP; Start 06/01/18 at 21:00 Amlodipine Besylate (Norvasc) 5 mg DAILY PO ; Start 06/03/18 at 09:00; Status Hold Pantoprazole (Protonix Tab) 40 mg DAILY@06 PO Last administered on 07/21/18at 06:08; Admin Dose 40 MG; Start 06/05/18 at 06:00 Metoclopramide HCl (Reglan) 5 mg TID PRN IV Nausea; Start 06/06/18 at 11:00 Polyethylene Glycol (Miralax) 17 gm BID PRN PO CONSTIPATION; Start 06/06/18 at 14:00 Bisacodyl (Dulcolax Supp) 10 mg DAILY PRN [place] CONSTIPATION; Start 06/06/18 at 14:00 IV Flush (NS 10 ml) 10 ml PRN PRN IV IV PROTOCOL; Start 06/06/18 at 16:00 Nystatin (Nystatin Susp) 5 ml QID PO Last administered on 07/21/18at 08:27; Admin Dose 5 ML; Start 06/06/18 at 17:00 Docusate Sodium (Colace) 100 mg DAILY PRN PO CONSTIPATION; Start 06/21/18 at 12:00 Miscellaneous Information (Pending [facility] Order For Wound Care) This patient gomes... PRN PRN XX WOUND CARE; Start 06/21/18 at 16:00 Amiodarone HCl (Cordarone) 200 mg BID PO Last administered on 07/21/18 08:28; Admin Dose 200 MG; Start 06/22/18 at 21:00 Ferrous Sulfate (Ferrous Sulfate (Ec)) 325 mg BID PO Last administered on 07/21/18 08:28; Admin Dose 325 MG; Start 07/09/18 at 09:30 Docusate Sodium (Colace) 100 mg DAILY PO Last administered on 07/21/18 08:28; Admin Dose 100 MG; Start 07/10/18 at 09:00 Miscellaneous Information (*Order Clarification Bulletin) PLEASE CLARIFY WITH MD... 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 Recent CT cystogram showed the fistula still be wide open. And the patient is still has collection of fluids. I did discuss the treatment this morning with the patient and her with the help of a nurse who speaks Italian and translated to them. I told him since the opening in the bladder is wide about 2 to 2.5cm it would be difficult to heal by itself. Therefore it is better to operate on her, drain the hematoma and any fluids around the bladder and close the fistula. I informed them that I do that by open procedure as they were asking about doing laparoscopic surgery. I again informed them that I do not do laparoscopic surgery. The patient and her state that they are trying with the help of the nurse outreach case manager to arrange for transfer to [facility] to do the procedure laparoscopically. I informed them that for her to be transferred they need the other hospital and a urologist on the staff of that hospital to accept her. I told them should they decide that I do the procedure they have to let me know so I could coordinate with the veneer gluer and the operating room to schedule her. In the meantime we shall keep the Mensah catheter in place JOAQUIN DE LEON MD Jul 21, 2018 08:43
--- NOTE | 2018-07-21 09:02 | PN ---
DATE: 07/21/2018 SUBJECTIVE: The patient is stable, no events overnight. OBJECTIVE: VITAL SIGNS: Blood pressure is 112/53, pulse 99, respirations 19, temperature 98.0. HEENT: Head is normocephalic. NECK: Supple. HEART: Regular rate. LUNGS: Show diminished breath sounds at the base. ABDOMEN: Soft, nontender to palpation without rebound or guarding. EXTREMITIES: Negative for clubbing, cyanosis. Trace edema. DERMATOLOGIC: No rashes. MUSCULOSKELETAL: No joint effusion. NEUROLOGIC: No change in exam. MEDICATIONS: The patient's medications have been reviewed. LABORATORY DATA: Has been reviewed. ASSESSMENT AND PLAN: 1. Nonoliguric acute kidney injury with previously normal baseline creatinine. Etiology of acute ki dney injury is secondary to acute tubular necrosis. Renal function is improving. Continue current t reatment plans, supportive care, renally dose all meds. 2. Hematuria, resolved. 3. Volume overload, improving. Continue current diuretic regimen. 4. Hypokalemia. Continue to monitor and replete. 5. Anemia. Monitor hemoglobin and hematocrit levels. 6. Mechanical heart valve. Continue anticoagulation per cardiology. 7. Sepsis secondary to urinary tract infection. Continue current antibiotic regimen. 8. Hypothyroidism. Continue Synthroid. 9. Dyslipidemia. Continue statin therapy. 10. Hypertension. Continue current blood pressure regimen. 11. Urinary tract infection. 12. Liver cirrhosis. Continue medical management. 13. Intraabdominal hematoma. Dictated By: GWYN FABIAN DO NR/NTS Conf#: [id number] DID#: [id number] CC: JULY VALENTIN MD; CHRIS LAZAR MD; JOAQUIN DE LEON MD;*EndCC*
--- NOTE | 2018-07-21 12:18 | CONS ---
Assessment/Plan Assessment/Plan Hospital Course (Demo Recall) # sepsis, cardiopulmonary - s/p severe sepsis due to UTI, resolved - s/p SIRS due to acute blood loss, resolved - s/p L heart catheterization on 05/27/2018 showing no significant obstructive CAD - CAD - s/p CABG in [facility] in 1982 - H/o MVR with mechanical valve, in 1999 - Hypertension - PAF - Asthma # urology/renal, GI - recurrent UTI due to - prelim citrobacter Freundii, Enterococcus species, enterobacter cloacae complex, alfredo albicans; s/p pip/tazo, on merrem - hematuria caused by ruptured urinary bladder (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 On the report, contrast material was identified within the vaginal canal; however, according to Dr. Ashford, this does not represent a fistulous tract between urethra and vagina - US Abdomen 07/18/18 showed Complex fluid collection about the anterior superior bladder measuring up to 10.0 x 8.6 x 7.2 cm. Bladder wall thickening. - Mensah was exchanged on 07/12/2018 and 07/14/2018 because her older catheter was leaking - s/p UTI due to hafnai alvei and pediococci on 06/30/18. Pt completed pip/tazo (07/02/18-07/05/2018) for this episode - S/p UTI due to E. coli. 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, s/p covered stent placement 6 x 100 mm right common femoral artery and right external iliac artery, abdominal aortogram, catheter introduction to the abdominal aorta, JOSÉ MIGUEL guidance into the central artery 06/02/2018 - S/p retroperitoneal bleed - S/p acute anemia requiring PRBC # endo - Hyperlipidemia - Hypothyroidism Recommendations: - monitor closely off abx - patient completed 3 days Ertapenem - patient family considering options for correction of bladder hematoma fistula - will continue to follow closely with you Consultation Date/Type/Reason Admit Date/Time May 28, 2018 at 17:52 Initial Consult Date 06/03/18 Type of Consult ID Requesting Provider: JULY VALENTIN MD Date/Time of Note DATE: 07/21/18 TIME: 12:17 prolonged service 1 hr Exam/Review of Systems Exam Vitals Vital Signs Date Temp Pulse Resp B/P (MAP) Pulse Ox O2 O2 Flow FiO2 Time Delivery Rate 07/21/18 98.3 94 18 110/53 93 11:12 (72) 07/20/18 Room Air 04:00 Intake and Output 07/20/18 07/20/18 07/21/18 1515:00 23:00 07:00 IntakeIntake Total 900 ml OutputOutput Total 1800 ml 900 ml BalanceBalance -900 ml -900 ml Constitutional: alert, oriented, well developed Psych: no complaints, nl mood/affect Head: normocephalic, atraumatic Eyes: nl conjunctiva, EOMI, nl lids, nl sclera, PERRL ENMT: nl external ears & nose, nl lips & teeth, nl nasal mucosa & septum Respiratory: clear to auscultation, normal air movement Cardiovascular: regular rate and rhythm, nl pulses Gastrointestinal: soft, nl liver, spleen, non-tender Neurological: WINDLASSER II-XII intact, nl mental status, nl speech, nl strength Results Result Diagram: 07/20/1848 07/20/1848 Results 24hrs Laboratory Tests Test 07/21/18 07:16 Prothrombin Time 36.1 H Prothrombin Time Ratio 2.8 INR International Normalized Ratio 3.63 Medications Medication Current Medications Levothyroxine Sodium (Synthroid) 50 mcg BEFORE BREAKFAST PO Last administered on 07/21/18at 06:08; Admin Dose 50 MCG; Start 05/30/18 at 07:00 Mometasone Furoate (Asmanex) 1 puff DAILY INH Last administered on 07/21/18at 08:27; Admin Dose 1 PUFF; Start 05/29/18 at 11:00 Atorvastatin Calcium (Lipitor) 10 mg DAILY@21 PO Last administered on 07/20/18 21:33; Admin Dose 10 MG; Start 05/29/18 at 21:00 Latanoprost (Xalatan) 1 drop HS BOTH EYES Last administered on 07/20/18 21:33; Admin Dose 1 DROP; Start 06/01/18 at 21:00 Amlodipine Besylate (Norvasc) 5 mg DAILY PO ; Start 06/03/18 at 09:00; Status Hold Pantoprazole (Protonix Tab) 40 mg DAILY@06 PO Last administered on 07/21/18 06:08; Admin Dose 40 MG; Start 06/05/18 at 06:00 Metoclopramide HCl (Reglan) 5 mg TID PRN IV Nausea; Start 06/06/18 at 11:00 Polyethylene Glycol (Miralax) 17 gm BID PRN PO CONSTIPATION; Start 06/06/18 at 14:00 Bisacodyl (Dulcolax Supp) 10 mg DAILY PRN [place] CONSTIPATION; Start 06/06/18 at 14:00 IV Flush (NS 10 ml) 10 ml PRN PRN IV IV PROTOCOL; Start 06/06/18 at 16:00 Nystatin (Nystatin Susp) 5 ml QID PO Last administered on 07/21/18 08:27; Admin Dose 5 ML; Start 06/06/18 at 17:00 Docusate Sodium (Colace) 100 mg DAILY PRN PO CONSTIPATION; Start 06/21/18 at 12:00 Miscellaneous [facility] This patient gomes... PRN PRN XX WOUND CARE; Start 06/21/18 at 16:00 Amiodarone HCl (Cordarone) 200 mg BID PO Last administered on 07/21/18 08:28; Admin Dose 200 MG; Start 06/22/18 at 21:00 Ferrous Sulfate (Ferrous Sulfate (Ec)) 325 mg BID PO Last administered on 07/21/18 08:28; Admin Dose 325 MG; Start 07/09/18 at 09:30 Docusate Sodium (Colace) 100 mg DAILY PO Last administered on 07/21/18 08:28; Admin Dose 100 MG; Start 07/10/18 at 09:00 Miscellaneous Information (*Order Clarification Bulletin) PLEASE CLARIFY WITH ... Q8H XX ; Start 07/13/18 at 11:00 Acetaminophen (Tylenol Tab) 650 mg Q6H PRN PO MILD PAIN(1-3)OR ELEVATED TEMP Last administered on 07/14/18at 21:04; Admin Dose 650 MG; Start 07/14/18 at 21:00 Bumetanide (Bumex) 1 mg DAILY PO Last administered on 07/21/18at 08:27; Admin Dose 1 MG; Start 07/15/18 at 09:00 Warfarin Sodium (Coumadin) 5 mg DAILY@17 PO Last administered on 07/20/18at 17:12; Admin Dose 5 MG; Start 07/18/18 at 17:30 MARSHA IYER MD Jul 21, 2018 12:18
--- NOTE | 2018-07-21 13:48 | CONS ---
Assessment/Plan Assessment/Plan Hospital Course (Demo Recall) IMP: 1.cad s/p LHC with no sig obstructive cad. Mildly depressed LVEF--40-45% ? nonischemic process 2.HTN 3.RP Bleed s/p transfusions now stable and tolerating heparin/coumadin loading. Then had recurrent bled overnight now s/p covered stent to DESIGN TECH/Ext iliac. Stable collection by abd CT 06/06 but still with pigtail catheter in place 4.HL 5.MVR-mechanical 6.anemia- s/p repair of R DESIGN TECH/illiac. Had hemoptysis with subsequent drop in Hgb again and holding of heparin. Had some mild blood tinged sputum 7.Hypothyroid 8. FOURNIER-negative Head CT 9. Fevers-with positive ua 10. UTI-Being followed by ID and on abx 11.ARF-? Contrast induced/compression from hematoma- now improving with increased urine output and slowly decreasing farm reporter 12. Coagulopathy-downtrenede and resumed on couamadin with midly subtherapeutic INR 14. LE weakness-? compression from hematoma and exacerbated by femoral compression after cath-now resolved 15. arterial insuff- LLE- s/p DIP STAND LOADER/thrombolysis 06/04 successfully with palpable pulses/B DP/PT and remain that way 16. PAF/AFL-rate controlled 17. 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 Now decreasing hematuria. s/p pelvic CT revealing ongoing fistula and per urology note was discussed with family 18. Epistaxis-improved/resolved. no recurrence 19. 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 ? new , ? etiology. Urology following and per his note has discussed treatment options with family including surgical versus waiting and thinks that closure would be best per notes at this time, Family discussed possible transfer to [facility] for procedure as necessary. Will contact urology Recc: -Now on tele -Continue BB with well controlled Hr's -Continue statin -s/p course of abx's -ongoing ID f/u -F/U farm reporter/K closely with creatnine now normalized and volume status improving on bumex bid. Will also assess patient's PO intake and possible contribution to volume overload -Follow HGb closely which has been stable to improved actually -PT/ambulation- doing 3x/day -will continue amio bid for now and follow rhythm clsoely with patient having episodes of PAF/AFL but always rate controlled -Urology following with findings of apparent bladder fistula and thus draining o f the hematoma through the bladder causing hematuria which has improved and now apparent bladder-vaginal fistula.Continue to follow hematuria for complete resolution and assess need for spontaneous closure versus need for repair which has been discussed with family and urology and between them as well. ? necessity of closing fistula at this time given clarity of urine/resolution of hematuria. Will discuss with urology/PMD, ? possibility of allowing patient to be d/c'd and followed as an outpatient with D/C of [facility] -Now back on coumadin with supratherapeutic again. Will hold coumadin today and follow -Continue current bumex now daily PO again with improved volume status Consultation Date/Type/Reason Admit Date/Time May 28, 2018 at 17:52 Initial Consult Date 05/28/18 Type of Consult Cardiology Reason for Consultation MVR Requesting Provider: JULY VALENTIN MD Date/Time of Note DATE: 07/21/18 TIME: 13:44 Exam/Review of Systems Vital Signs Vitals Vital Signs Date Temp Pulse Resp B/P (MAP) Pulse Ox O2 O2 Flow FiO2 Time Delivery Rate 07/21/18 98.3 94 18 110/53 93 11:12 (72) 07/20/18 Room Air 04:00 Intake and Output 07/20/18 07/20/18 07/21/18 1515:00 23:00 07:00 IntakeIntake Total 900 ml OutputOutput Total 1800 ml 900 ml BalanceBalance -900 ml -900 ml Exam Exam Review of Systems: CONSTITUTIONAL: No fevers, chills. PULMONARY: No sob CARDIOVASCULAR: No chest pain/palpitations GASTROINTESTINAL: No nausea/vomiting. GENITOURINARY: No hematuria/dysuria. MUSCULOSKELETAL: No myagias/arthalgias. PSYCHIATRIC: The patient denies depression. NEUROLOGIC: No weakness Constitutional: alert, oriented Psych: no complaints Head: normocephalic ENMT: mucosa pink and moist Neck: supple, jvd (9 cm water) Cardiovascular: regular rate and rhythm Gastrointestinal: soft, non-tender Musculoskeletal: muscle tone (mormal) Extremities: edema (none) Neurological: other (No focal defiicts) Labs Result Diagram: 07/20/18 0548 07/20/18 0548 Results 24hrs Laboratory Tests Test 07/21/18 07:16 Prothrombin Time 36.1 H Prothrombin Time Ratio 2.8 INR International Normalized Ratio 3.63 Medications Medications Current Medications Levothyroxine Sodium (Synthroid) 50 mcg BEFORE BREAKFAST PO Last administered on 07/21/18 06:08; Admin Dose 50 MCG; Start 05/30/18 at 07:00 Mometasone Furoate (Asmanex) 1 puff DAILY INH Last administered on 07/21/18at 08:27; Admin Dose 1 PUFF; Start 05/29/18 at 11:00 Atorvastatin Calcium (Lipitor) 10 mg DAILY@21 PO Last administered on 07/20/18 21:33; Admin Dose 10 MG; Start 05/29/18 at 21:00 Latanoprost (Xalatan) 1 drop HS BOTH EYES Last administered on 07/20/18 21:33; Admin Dose 1 DROP; Start 06/01/18 at 21:00 Amlodipine Besylate (Norvasc) 5 mg DAILY PO ; Start 06/03/18 at 09:00; Status Hold Pantoprazole (Protonix Tab) 40 mg DAILY@06 PO Last administered on 07/21/18at 06:08; Admin Dose 40 MG; Start 06/05/18 at 06:00 Metoclopramide HCl (Reglan) 5 mg TID PRN IV Nausea; Start 06/06/18 at 11:00 Polyethylene Glycol (Miralax) 17 gm BID PRN PO CONSTIPATION; Start 06/06/18 at 14:00 Bisacodyl (Dulcolax Supp) 10 mg DAILY PRN [place] CONSTIPATION; Start 06/06/18 at 14:00 IV Flush (NS 10 ml) 10 ml PRN PRN IV IV PROTOCOL; Start 06/06/18 at 16:00 Nystatin (Nystatin Susp) 5 ml QID PO Last administered on 07/21/18at 12:41; Admin Dose 5 ML; Start 06/06/18 at 17:00 Docusate Sodium (Colace) 100 mg DAILY PRN PO CONSTIPATION; Start 06/21/18 at 12:00 Miscellaneous Information (Pending [facility] Order For Wound Care) This patient fournier... PRN PRN XX WOUND CARE; Start 06/21/18 at 16:00 Amiodarone HCl (Cordarone) 200 mg BID PO Last administered on 07/21/18 08:28; Admin Dose 200 MG; Start 06/22/18 at 21:00 Ferrous Sulfate (Ferrous Sulfate (Ec)) 325 mg BID PO Last administered on 07/21/18 08:28; Admin Dose 325 MG; Start 07/09/18 at 09:30 Docusate Sodium (Colace) 100 mg DAILY PO Last administered on 07/21/18 08:28; Admin Dose 100 MG; Start 07/10/18 at 09:00 Miscellaneous Information (*Order Clarification Bulletin) PLEASE CLARIFY WITH . Q8H XX ; Start 07/13/18 at 11:00 Acetaminophen (Tylenol Tab) 650 mg Q6H PRN PO MILD PAIN(1-3)OR ELEVATED TEMP Last administered on 07/14/18 21:04; Admin Dose 650 MG; Start 07/14/18 at 21:00 Bumetanide (Bumex) 1 mg DAILY PO Last administered on 07/21/18 08:27; Admin Dose 1 MG; Start 07/15/18 at 09:00 Warfarin Sodium (Coumadin) 5 mg DAILY@17 PO Last administered on 07/20/18 17 :12; Admin Dose 5 MG; Start 07/18/18 at 17:30 CHRIS LAZAR Jul 21, 2018 13:48
--- NOTE | 2018-07-21 17:15 | PN ---
Date/Time of Note Date/Time of Note DATE: 07/21/18 TIME: 17:00 Assessment/Plan VTE Prophylaxis Risk score (from Nsg)>0 risk: 2 SCD applied (from Nsg): Yes Pharmacological prophylaxis: warfarin tx Lines/Catheters IV Catheter Type (from Nrsg): PICC Line Central line still needed: Yes Urinary Cath still in place: Yes Reason Cath still needed: other (indicate) Assessment/Plan Hospital Course Patient remains hemodynamically stable, denies pain, denies shortness of breath, no hematuria. INR is 3.63, Coumadin is held, continue Coumadin dosing per cardiology. Patient and the family prefer retroperitoneal hematoma to bladder fistula to be operated laparoscopically and currently case management is working on arrangements according to pt's insurance for transfer to another facility where patient can be operated on laparoscopically. 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 Continue Mensah, monitor. Dr. Ashford is following in urology consultation. -Polymicrobial UTI, completed treatment with abx. Dr. Hughes is following in infection disease consultation. -Anemia of acute blood loss, transfuse PRN, monitor H&H. 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 -S/p Nose/oropharyngeal bleed on 06/11/2018, stopped after heparin was held. -Retroperitoneal bleed secondary to vascular injury status post stent placement. S/p CT guided placement of drainage catheter into pelvic hematoma on 06/05/18 and sequent removal. -Status post left heart catheterization with no significant obstructive coronary artery disease by Dr. Moreno on 05/27/2018. -Anemia of acute blood loss, status post blood transfusion, continue to monitor hemoglobin and hematocrit. -Urinary incontinence. -Acute illness myopathy -Status post mitral valve replacement with mechanical valve in 1999. Continue Coumadin, monitor PT/INR. -HTN, continue metoprolol -Hyperlipidemia -Hypothyroidism, continue levothyroxine -History of asthma Further recommendations based on clinical course. Plan of care discussed with Dr. Painter. Result Diagram: 07/20/1848 07/20/18 0548 Results 24hrs Laboratory Tests Test 07/21/18 07:16 Prothrombin Time 36.1 H Prothrombin Time Ratio 2.8 INR International Normalized Ratio 3.63 Exam/Review of Systems Exam Vitals Vital Signs Date Temp Pulse Resp B/P (MAP) Pulse Ox O2 O2 Flow FiO2 Time Delivery Rate 07/21/18 92 16:23 07/21/18 97.5 19 121/57 96 15:14 (78) 07/20/18 Room Air 04:00 Intake and Output 07/20/18 07/20/18 07/21/18 1414:59 22:59 06:59 IntakeIntake Total 900 ml OutputOutput Total 1800 ml 900 ml BalanceBalance -900 ml -900 ml Exam Constitutional: alert, oriented Respiratory: clear to auscultation Cardiovascular: irregular rhythm Gastrointestinal: soft, non-tender Genitourinary - Female: other (Mensah) Extremities: normal pulses Neurological: nl mental status Skin: nl turgor Results Results 24hrs Laboratory Tests Test 07/21/18 07:16 Prothrombin Time 36.1 H Prothrombin Time Ratio 2.8 INR International Normalized Ratio 3.63 Medications Medication Current Medications Levothyroxine Sodium (Synthroid) 50 mcg BEFORE BREAKFAST PO Last administered on 07/21/18at 06:08; Admin Dose 50 MCG; Start 05/30/18 at 07:00 Mometasone Furoate (Asmanex) 1 puff DAILY INH Last administered on 07/21/18at 08:27; Admin Dose 1 PUFF; Start 05/29/18 at 11:00 Atorvastatin Calcium (Lipitor) 10 mg DAILY@21 PO Last administered on 07/20/18at 21:33; Admin Dose 10 MG; Start 05/29/18 at 21:00 Latanoprost (Xalatan) 1 drop HS BOTH EYES Last administered on 07/20/18at 21:33; Admin Dose 1 DROP; Start 06/01/18 at 21:00 Amlodipine Besylate (Norvasc) 5 mg DAILY PO ; Start 06/03/18 at 09:00; Status Hold Pantoprazole (Protonix Tab) 40 mg DAILY@06 PO Last administered on 07/21/18at 06:08; Admin Dose 40 MG; Start 06/05/18 at 06:00 Metoclopramide HCl (Reglan) 5 mg TID PRN IV Nausea; Start 06/06/18 at 11:00 Polyethylene Glycol (Miralax) 17 gm BID PRN PO CONSTIPATION; Start 06/06/18 at 14:00 Bisacodyl (Dulcolax Supp) 10 mg DAILY PRN [place] CONSTIPATION; Start 06/06/18 at 14:00 IV Flush (NS 10 ml) 10 ml PRN PRN IV IV PROTOCOL; Start 06/06/18 at 16:00 Nystatin (Nystatin Susp) 5 ml QID PO Last administered on 07/21/18 12:41; Admin Dose 5 ML; Start 06/06/18 at 17:00 Docusate Sodium (Colace) 100 mg DAILY PRN PO CONSTIPATION; Start 06/21/18 at 12:00 Miscellaneous Information (Pending Santyl Order For Wound Care) This patient gomes... PRN PRN XX WOUND CARE; Start 06/21/18 at 16:00 Amiodarone HCl (Cordarone) 200 mg BID PO Last administered on 07/21/18 08:28; Admin Dose 200 MG; Start 06/22/18 at 21:00 Ferrous Sulfate (Ferrous Sulfate (Ec)) 325 mg BID PO Last administered on 07/21/18 08:28; Admin Dose 325 MG; Start 07/09/18 at 09:30 Docusate Sodium (Colace) 100 mg DAILY PO Last administered on 07/21/18 08:28; Admin Dose 100 MG; Start 07/10/18 at 09:00 Acetaminophen (Tylenol Tab) 650 mg Q6H PRN PO MILD PAIN(1-3)OR ELEVATED TEMP Last administered on 07/14/18 21:04; Admin Dose 650 MG; Start 07/14/18 at 21:00 Bumetanide (Bumex) 1 mg DAILY PO Last administered on 07/21/18 08:27; Admin Dose 1 MG; Start 07/15/18 at 09:00 Warfarin Sodium (Coumadin) 5 mg DAILY@17 PO Last administered on 07/20/18 17:12; Admin Dose 5 MG; Start 07/18/18 at 17:30; Status Hold KRISTY MCCULLOUGH Jul 21, 2018 17:10
[2018-07-21] MEDS: ATORVASTATIN 10 MG TAB PO SCH (20:52)
[2018-07-21] MEDS: LATANOPROST 0.005% 2.5 ML OPH BOTH EYES SCH (21:01)
[2018-07-22] VITALS (12 sets, daily range): BP systolic 110–127; BP diastolic 50–70; PULSE 87–106; RESP 15–19
[2018-07-22] MEDS: PANTOPRAZOLE (EC) 40 MG TAB PO SCH (05:19)
[2018-07-22] MEDS: LEVOTHYROXINE 50 MCG TAB PO SCH (06:01)
--- NOTE | 2018-07-22 08:42 | PN ---
DATE: 07/22/2018 SUBJECTIVE: The patient is stable, no events overnight. OBJECTIVE: VITAL SIGNS: Blood pressure is 127/66, pulse is 104, respirations 18, temperature 98.3. HEENT: Head is normocephalic. NECK: Supple. HEART: Regular rate. LUNGS: Show diminished breath sounds at the base. ABDOMEN: Soft, nontender to palpation without rebound or guarding. EXTREMITIES: Negative for clubbing, cyanosis. Trace edema. DERMATOLOGIC: No rashes. MUSCULOSKELETAL: No joint effusion. NEUROLOGIC: No change in exam. MEDICATIONS: The patient's medications have been reviewed. LABORATORY DATA: Has been reviewed. ASSESSMENT AND PLAN: 1. Nonoliguric acute kidney injury with previously normal baseline creatinine. Etiology of acute ki dney injury secondary to acute tubular necrosis. Renal function is improved. Continue to monitor. 2. Hematuria, resolved. 3. Volume overload, improving. Continue diuretic regimen. 4. Hypokalemia. Continue to monitor and replete as needed. 5. Anemia. Monitor hemoglobin and hematocrit levels. 6. Mechanical heart valve. Continue anticoagulation per cardiology. 7. Sepsis secondary to urinary tract infection. Continue current antibiotic regimen. 8. Hypothyroidism. Continue Synthroid. 9. Dyslipidemia. Continue statin therapy. 10. Hypertension. Continue current blood pressure regimen. 11. Liver cirrhosis. Continue medical management. 12. Intraabdominal hematoma. 13. Status post urinary tract infection. Dictated By: GWYN FABIAN DO NR/NTS Conf#: [id number] DID#: [id number] CC: CHRIS LAZAR MD; JULY VALENTIN MD; JOAQUIN DE LEON MD;*EndCC*
[2018-07-22] MEDS: AMIODARONE 200 MG TAB PO SCH (08:46)
[2018-07-22] MEDS: DOCUSATE SODIUM 100 MG CAP PO SCH (08:46)
[2018-07-22] MEDS: BUMETANIDE 1 MG TAB PO SCH (08:46)
[2018-07-22] MEDS: FERROUS SULFATE (EC) 325 MG TAB PO SCH ×2 (08:46→20:27)
[2018-07-22] MEDS: NYSTATIN SUSP 5 ML CUP PO SCH ×4 (08:46→20:27)
[2018-07-22] MEDS: MOMETASONE 0.24 GM INHALER INH SCH (08:47)
--- NOTE | 2018-07-22 10:49 | PN ---
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 Continue Mensah, monitor. - Dr. Ashford is following in urology consultation. -Polymicrobial UTI, completed treatment with abx. Dr. Hughes is following in infection disease consultation. -Anemia of acute blood loss, transfuse PRN, monitor H&H. 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 -S/p Nose/oropharyngeal bleed on 06/11/2018, stopped after heparin was held. -Retroperitoneal bleed secondary to vascular injury status post stent placement. S/p CT guided placement of drainage catheter into pelvic hematoma on 06/05/18 and sequent removal. -Status post left heart catheterization with no significant obstructive coronary artery disease by Dr. Moreno on 05/27/2018. -Anemia of acute blood loss, status post blood transfusion, continue to monitor hemoglobin and hematocrit. -Urinary incontinence. -Acute illness myopathy -Status post mitral valve replacement with mechanical valve in 1999. Continue Coumadin, monitor PT/INR. -HTN, continue metoprolol -Hyperlipidemia -Hypothyroidism, continue levothyroxine -History of asthma Further recommendations based on clinical course. Plan of care discussed with Dr. Painter. Result Diagram: 07/22/18 0607/22/1829 Results 24hrs Laboratory Tests Test 07/22/18 06:29 07/22/18 06:30 White Blood Count 4.7 L Red Blood Count 3.00 L Hemoglobin 9.4 L Hematocrit 29.1 L Mean Corpuscular Volume 97.0 Mean Corpuscular Hemoglobin 31.3 Mean Corpuscular Hemoglobin Concent 32.3 Red Cell Distribution Width 15.9 H Platelet Count 229 Mean Platelet Volume 9.1 Immature Granulocytes % 2.300 H Neutrophils % 55.9 Lymphocytes % 31.6 Monocytes % 7.7 Eosinophils % 1.9 Basophils % 0.6 Nucleated Red Blood Cells % 0.0 Immature Granulocytes # 0.110 H Neutrophils # 2.6 Lymphocytes # 1.5 Monocytes # 0.4 Eosinophils # 0.1 Basophils # 0.0 Nucleated Red Blood Cells # 0.0 Sodium Level 138 Potassium Level 3.5 Chloride Level 100 Carbon Dioxide Level 33 H Anion Gap 5 Blood Urea Nitrogen 21 H Creatinine 0.65 Est Glomerular Filtrat Rate mL/min > 60 Glucose Level 128 Calcium Level 9.2 Prothrombin Time 34.4 H Prothrombin Time Ratio 2.7 INR International Normalized Ratio 3.41 Subjective 24 Hr Interval Summary Free Text/Dictation nad; afebrile; ambulates with ; feels better; cloudy urine ; id follows Constitutional: requiring O2 Eyes: no complaints ENT: no complaints Respiratory: no complaints Cardiovascular: no complaints Gastrointestinal: no complaints Genitourinary: no complaints Musculoskeletal: no complaints Skin: no complaints Endocrine: no complaints Lymphatic: no complaints Psychological: nl mood/affect Immunologic: no complaints Exam/Review of Systems Exam Vitals Vital Signs Date Temp Pulse Resp B/P (MAP) Pulse Ox O2 O2 Flow FiO2 Time Delivery Rate 07/22/18 96 09:06 07/22/18 98.3 18 127/66 96 07:22 (86) 07/20/18 Room Air 04:00 Intake and Output 07/21/18 07/21/18 07/22/18 1515:00 23:00 07:00 IntakeIntake Total 700 ml 400 ml OutputOutput Total 1800 ml 900 ml BalanceBalance -1100 ml -500 ml Constitutional: alert, well developed Psych: nl mood/affect Head: atraumatic Eyes: EOMI, nl lids ENMT: nl external ears & nose Respiratory: clear to auscultation Cardiovascular: nl pulses, other (s1s2) Gastrointestinal: soft, non-tender Genitourinary - Female: other (Fc- INTACT; cloudy urine) Musculoskeletal: nl extremities to inspection Extremities: normal pulses Neurological: nl mental status, nl speech Skin: nl turgor Results Results 24hrs Laboratory Tests Test 07/22/18 06:29 07/22/18 06:30 White Blood Count 4.7 L Red Blood Count 3.00 L Hemoglobin 9.4 L Hematocrit 29.1 L Mean Corpuscular Volume 97.0 Mean Corpuscular Hemoglobin 31.3 Mean Corpuscular Hemoglobin Concent 32.3 Red Cell Distribution Width 15.9 H Platelet Count 229 Mean Platelet Volume 9.1 Immature Granulocytes % 2.300 H Neutrophils % 55.9 Lymphocytes % 31.6 Monocytes % 7.7 Eosinophils % 1.9 Basophils % 0.6 Nucleated Red Blood Cells % 0.0 Immature Granulocytes # 0.110 H Neutrophils # 2.6 Lymphocytes # 1.5 Monocytes # 0.4 Eosinophils # 0.1 Basophils # 0.0 Nucleated Red Blood Cells # 0.0 Sodium Level 138 Potassium Level 3.5 Chloride Level 100 Carbon Dioxide Level 33 H Anion Gap 5 Blood Urea Nitrogen 21 H Creatinine 0.65 Est Glomerular Filtrat Rate mL/min > 60 Glucose Level 128 Calcium Level 9.2 Prothrombin Time 34.4 H Prothrombin Time Ratio 2.7 INR International Normalized Ratio 3.41 Medications Medication Current Medications Levothyroxine Sodium (Synthroid) 50 mcg BEFORE BREAKFAST PO Last administered on 07/22/18at 06:01; Admin Dose 50 MCG; Start 05/30/18 at 07:00 Mometasone Furoate (Asmanex) 1 puff DAILY INH Last administered on 07/22/18at 08:47; Admin Dose 1 PUFF; Start 05/29/18 at 11:00 Atorvastatin Calcium (Lipitor) 10 mg DAILY@21 PO Last administered on 07/21/18at 20:52; Admin Dose 10 MG; Start 05/29/18 at 21:00 Latanoprost (Xalatan) 1 drop HS BOTH EYES Last administered on 07/21/18at 21:01; Admin Dose 1 DROP; Start 06/01/18 at 21:00 Amlodipine Besylate (Norvasc) 5 mg DAILY PO ; Start 06/03/18 at 09:00; Status Hold Pantoprazole (Protonix Tab) 40 mg DAILY@06 PO Last administered on 07/22/18at 0 5:19; Admin Dose 40 MG; Start 06/05/18 at 06:00 Metoclopramide HCl (Reglan) 5 mg TID PRN IV Nausea; Start 06/06/18 at 11:00 Polyethylene Glycol (Miralax) 17 gm BID PRN PO CONSTIPATION; Start 06/06/18 at 14:00 Bisacodyl (Dulcolax Supp) 10 mg DAILY PRN [place] CONSTIPATION; Start 06/06/18 at 14:00 IV Flush (NS 10 ml) 10 ml PRN PRN IV IV PROTOCOL; Start 06/06/18 at 16:00 Nystatin (Nystatin Susp) 5 ml QID PO Last administered on 07/22/18 08:46; Admin Dose 5 ML; Start 06/06/18 at 17:00 Docusate Sodium (Colace) 100 mg DAILY PRN PO CONSTIPATION; Start 06/21/18 at 12:00 Miscellaneous Information (Pending Santyl Order For Wound Care) This patient gomes... PRN PRN XX WOUND CARE; Start 06/21/18 at 16:00 Amiodarone HCl (Cordarone) 200 mg BID PO Last administered on 07/22/18 08:46; Admin Dose 200 MG; Start 06/22/18 at 21:00 Ferrous Sulfate (Ferrous Sulfate (Ec)) 325 mg BID PO Last administered on 07/22/18 08:46; Admin Dose 325 MG; Start 07/09/18 at 09:30 Docusate Sodium (Colace) 100 mg DAILY PO Last administered on 07/22/18 08:46; Admin Dose 100 MG; Start 07/10/18 at 09:00 Acetaminophen (Tylenol Tab) 650 mg Q6H PRN PO MILD PAIN(1-3)OR ELEVATED TEMP Last administered on 07/14/18 21:04; Admin Dose 650 MG; Start 07/14/18 at 21:00 Bumetanide (Bumex) 1 mg DAILY PO Last administered on 07/22/18 08:46; Admin Dose 1 MG; Start 07/15/18 at 09:00 Warfarin Sodium (Coumadin) 5 mg DAILY@17 PO Last administered on 07/20/18 17:12; Admin Dose 5 MG; Start 07/18/18 at 17:30; Status Hold DELICIA MATUTE Jul 22, 2018 10:49
--- NOTE | 2018-07-22 11:19 | CONS ---
Assessment/Plan Assessment/Plan Hospital Course (Demo Recall) # sepsis, cardiopulmonary - s/p severe sepsis due to UTI, resolved - s/p SIRS due to acute blood loss, resolved - s/p L heart catheterization on 05/27/2018 showing no significant obstructive CAD - CAD - s/p CABG in [facility] in 1982 - H/o MVR with mechanical valve, in 1999 - Hypertension - PAF - Asthma # urology/renal, GI - recurrent UTI on 07/15/2018 due to Citrobacter Freundii, Enterococcus species, MDR Enterobacter; s/p Zosyn->ertapenem - hematuria caused by ruptured urinary bladder (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 On the report, contrast material was identified within the vaginal canal; however, according to Dr. Ashford, this does not represent a fistulous tract between urethra and vagina - US Abdomen 07/18/18 showed Complex fluid collection about the anterior superior bladder measuring up to 10.0 x 8.6 x 7.2 cm. Bladder wall thickening. - Mensah was exchanged on 07/12/2018 and 07/14/2018 because her older catheter was leaking - s/p UTI due to hafnai alvei and pediococci on 06/30/18. Pt completed pip/tazo (07/02/18-07/05/2018) for this episode - S/p UTI due to E. coli. 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 Hughes Consultation Date/Type/Reason Admit Date/Time May 28, 2018 at 17:52 Initial Consult Date 06/02/18 Type of Consult Infectious Disease Requesting Provider: JULY VALENTIN MD Date/Time of Note DATE: 07/22/18 TIME: 11:11 24 HR Interval Summary Free Text/Dictation Chart reviewed. CM assisting pt/family with trying to get 2nd Urology opinion. Hematuria has resolved. No acute issues per d/w nursing. Pt denies pain or SOB. No new complaints. Exam/Review of Systems Exam Vitals Vital Signs Date Temp Pulse Resp B/P (MAP) Pulse Ox O2 O2 Flow FiO2 Time Delivery Rate 07/22/18 96 09:06 07/22/18 98.3 18 127/66 96 07:22 (86) 07/20/18 Room Air 04:00 Intake and Output 07/21/18 07/21/18 07/22/18 1515:00 23:00 07:00 IntakeIntake Total 700 ml 400 ml OutputOutput Total 1800 ml 900 ml BalanceBalance -1100 ml -500 ml Exam Constitutional: alert, oriented, well developed, other (sitting up in bed playing games on her electronic device and in NAD) Psych: no complaints, nl mood/affect (smiling) Head: normocephalic, atraumatic Eyes: nl conjunctiva, nl lids, nl sclera ENMT: nl external ears & nose, nl nasal mucosa & septum, mucosa pink and moist (no thrush) Neck: supple, non-tender Respiratory: clear to auscultation, normal air movement Cardiovascular: regular rate and rhythm, nl pulses Gastrointestinal: soft, non-tender, bowel sounds (normoactive) Genitourinary - Female: other (F/c with yellow urine) Musculoskeletal: nl extremities to inspection Extremities: normal pulses Neurological: [employer] II-XII intact, nl mental status, nl speech, nl strength Skin: nl turgor; No rash or lesions Results Result Diagram: 07/22/18 0607/22/18 0629 Results 24hrs Laboratory Tests Test 07/22/18 06:29 07/22/18 06:30 White Blood Count 4.7 L Red Blood Count 3.00 L Hemoglobin 9.4 L Hematocrit 29.1 L Mean Corpuscular Volume 97.0 Mean Corpuscular Hemoglobin 31.3 Mean Corpuscular Hemoglobin Concent 32.3 Red Cell Distribution Width 15.9 H Platelet Count 229 Mean Platelet Volume 9.1 Immature Granulocytes % 2.300 H Neutrophils % 55.9 Lymphocytes % 31.6 Monocytes % 7.7 Eosinophils % 1.9 Basophils % 0.6 Nucleated Red Blood Cells % 0.0 Immature Granulocytes # 0.110 H Neutrophils # 2.6 Lymphocytes # 1.5 Monocytes # 0.4 Eosinophils # 0.1 Basophils # 0.0 Nucleated Red Blood Cells # 0.0 Sodium Level 138 Potassium Level 3.5 Chloride Level 100 Carbon Dioxide Level 33 H Anion Gap 5 Blood Urea Nitrogen 21 H Creatinine 0.65 Est Glomerular Filtrat Rate mL/min > 60 Glucose Level 128 Calcium Level 9.2 Prothrombin Time 34.4 H Prothrombin Time Ratio 2.7 INR International Normalized Ratio 3.41 Medications Medication Current Medications Levothyroxine Sodium (Synthroid) 50 mcg BEFORE BREAKFAST PO Last administered on 07/22/18at 06:01; Admin Dose 50 MCG; Start 05/30/18 at 07:00 Mometasone Furoate (Asmanex) 1 puff DAILY INH Last administered on 07/22/18at 08:47; Admin Dose 1 PUFF; Start 05/29/18 at 11:00 Atorvastatin Calcium (Lipitor) 10 mg DAILY@21 PO Last administered on 07/21/18at 20:52; Admin Dose 10 MG; Start 05/29/18 at 21:00 Latanoprost (Xalatan) 1 drop HS BOTH EYES Last administered on 07/21/18at 21:01; Admin Dose 1 DROP; Start 06/01/18 at 21:00 Amlodipine Besylate (Norvasc) 5 mg DAILY PO ; Start 06/03/18 at 09:00; Status Hold Pantoprazole (Protonix Tab) 40 mg DAILY@06 PO Last administered on 07/22/18at 05:19; Admin Dose 40 MG; Start 06/05/18 at 06:00 Metoclopramide HCl (Reglan) 5 mg TID PRN IV Nausea; Start 06/06/18 at 11:00 Polyethylene Glycol (Miralax) 17 gm BID PRN PO CONSTIPATION; Start 06/06/18 at 14:00 Bisacodyl (Dulcolax Supp) [address] CONSTIPATION; Start 06/06/18 at 14:00 IV Flush (NS 10 ml) 10 ml PRN PRN IV IV PROTOCOL; Start 06/06/18 at 16:00 Nystatin (Nystatin Susp) 5 ml QID PO Last administered on 07/22/18 08:46; Admin Dose 5 ML; Start 06/06/18 at 17:00 Docusate Sodium (Colace) 100 mg DAILY PRN PO CONSTIPATION; Start 06/21/18 at 12:00 [facility] This patient gomes... PRN PRN XX WOUND CARE; Start 06/21/18 at 16:00 Amiodarone HCl (Cordarone) 200 mg BID PO Last administered on 07/22/18 08:46; Admin Dose 200 MG; Start 06/22/18 at 21:00 Ferrous Sulfate (Ferrous Sulfate (Ec)) 325 mg BID PO Last administered on 07/22/18 08:46; Admin Dose 325 MG; Start 07/09/18 at 09:30 Docusate Sodium (Colace) 100 mg DAILY PO Last administered on 07/22/18 08:46; Admin Dose 100 MG; Start 07/10/18 at 09:00 Acetaminophen (Tylenol Tab) 650 mg Q6H PRN PO MILD PAIN(1-3)OR ELEVATED TEMP Last administered on 07/14/18 21:04; Admin Dose 650 MG; Start 07/14/18 at 21:00 Bumetanide (Bumex) 1 mg DAILY PO Last administered on 07/22/18 08:46; Admin Dose 1 MG; Start 07/15/18 at 09:00 Warfarin Sodium (Coumadin) 5 mg DAILY@17 PO Last administered on 07/20/18 17:12; Admin Dose 5 MG; Start 07/18/18 at 17:30; Status Hold KISHORE JARAMILLO CATERING MANAGER Jul 22, 2018 11:19
--- NOTE | 2018-07-22 17:41 | CONS ---
Assessment/Plan Assessment/Plan Hospital Course (Demo Recall) IMP: 1.cad s/p LHC with no sig obstructive cad. Mildly depressed LVEF--40-45% ? nonischemic process 2.HTN 3.RP Bleed s/p transfusions now stable and tolerating heparin/coumadin loading. Then had recurrent bled overnight now s/p covered stent to INBOUND TELEMARKETER/Ext iliac. Stable collection by abd CT 06/06 but still with pigtail catheter in place 4.HL 5.MVR-mechanical 6.anemia- s/p repair of R INBOUND TELEMARKETER/illiac. Had hemoptysis with subsequent drop in Hgb again and holding of heparin. Had some mild blood tinged sputum 7.Hypothyroid 8. GOMES-negative Head CT 9. Fevers-with positive ua 10. UTI-Being followed by ID and on abx 11.ARF-? 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 Coagulopathy-downtrenede and resumed on couamadin with midly subtherapeutic INR 14. LE weakness-? compression from hematoma and exacerbated by femoral compression after cath-now resolved 15. 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 PAF/AFL-rate controlled 17. 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 Now decreasing hematuria. s/p pelvic CT revealing ongoing fistula and per urology note was discussed with family 18. Epistaxis-improved/resolved. no recurrence 19. 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 ? new , ? etiology. Urology following and per his note has discussed treatment options with family including surgical versus waiting and thinks that closure would be best per notes at this time, Family discussed possible transfer to [facility] for procedure as necessary. Recc: -Now on tele -Continue BB with well controlled Hr's -Continue statin -s/p course of abx's -ongoing ID f/u -F/U lens molding equipment operator/K closely with creatnine now normalized and volume status improving on bumex bid. Will also assess patient's PO intake and possible contribution to volume overload -Follow HGb closely which has been stable to improved actually -PT/ambulation- doing 3x/day -will continue amio but decrease to daily for now and follow rhythm clsoely with patient having episodes of PAF/AFL but always rate controlled -Urology following with findings of apparent bladder fistula and thus draining of the hematoma through the bladder causing hematuria which has improved and now apparent bladder-vaginal fistula.Continue to follow hematuria for complete resolution and assess need for spontaneous closure versus need for repair which has been discussed with family and urology and between them as well. ? necessity of closing fistula at this time given clarity of urine/resolution of hematuria but have discussed with urology and stats that not possible and must remain decompressed until closure of fistual -Now back on coumadin with supratherapeutic again. Will hold coumadin again today with likely ability to resume tomorrow -Continue current bumex now daily PO again with improved volume status Consultation Date/Type/Reason Admit Date/Time May 28, 2018 at 17:52 Initial Consult Date 05/28/18 Type of Consult Cardiology Reason for Consultation MVR Requesting Provider: JULY VALENTIN MD Date/Time of Note DATE: 07/22/18 TIME: 17:37 Exam/Review of Systems Vital Signs Vitals Vital Signs Date Temp Pulse Resp B/P (MAP) Pulse Ox O2 O2 Flow FiO2 Time Delivery Rate 07/22/18 87 16:42 07/22/18 97.6 15 110/70 92 15:27 (83) 07/20/18 Room Air 04:00 Intake and Output 07/21/18 07/21/18 07/22/18 1515:00 23:00 07:00 IntakeIntake Total 700 ml 400 ml OutputOutput Total 1800 ml 900 ml BalanceBalance -1100 ml -500 ml Exam Exam Review of Systems: CONSTITUTIONAL: No fevers, chills. PULMONARY: No sob CARDIOVASCULAR: No chest pain/palpitations GASTROINTESTINAL: No nausea/vomiting. GENITOURINARY: No hematuria/dysuria. MUSCULOSKELETAL: No myagias/arthalgias. PSYCHIATRIC: The patient denies depression. NEUROLOGIC: No weakness Constitutional: alert, oriented Psych: no complaints Head: normocephalic ENMT: mucosa pink and moist Neck: supple, jvd (9 cm water) Respiratory: diminished breath sounds Cardiovascular: regular rate and rhythm Gastrointestinal: soft, non-tender Musculoskeletal: muscle tone (normal) Extremities: edema (none) Neurological: other (No focal deficits) Labs Result Diagram: 07/22/18 0629 07/22/18 0629 Results 24hrs Laboratory Tests Test 07/22/18 06:29 07/22/18 06:30 White Blood Count 4.7 L Red Blood Count 3.00 L Hemoglobin 9.4 L Hematocrit 29.1 L Mean Corpuscular Volume 97.0 Mean Corpuscular Hemoglobin 31.3 Mean Corpuscular Hemoglobin Concent 32.3 Red Cell Distribution Width 15.9 H Platelet Count 229 Mean Platelet Volume 9.1 Immature Granulocytes % 2.300 H Neutrophils % 55.9 Lymphocytes % 31.6 Monocytes % 7.7 Eosinophils % 1.9 Basophils % 0.6 Nucleated Red Blood Cells % 0.0 Immature Granulocytes # 0.110 H Neutrophils # 2.6 Lymphocytes # 1.5 Monocytes # 0.4 Eosinophils # 0.1 Basophils # 0.0 Nucleated Red Blood Cells # 0.0 Sodium Level 138 Potassium Level 3.5 Chloride Level 100 Carbon Dioxide Level 33 H Anion Gap 5 Blood Urea Nitrogen 21 H Creatinine 0.65 Est Glomerular Filtrat Rate mL/min > 60 Glucose Level 128 Calcium Level 9.2 Prothrombin Time 34.4 H Prothrombin Time Ratio 2.7 INR International Normalized Ratio 3.41 Medications Medications Current Medications Levothyroxine Sodium (Synthroid) 50 mcg BEFORE BREAKFAST PO Last administered on 07/22/18at 06:01; Admin Dose 50 MCG; Start 05/30/18 at 07:00 Mometasone Furoate (Asmanex) 1 puff DAILY INH Last administered on 07/22/18at 08:47; Admin Dose 1 PUFF; Start 05/29/18 at 11:00 Atorvastatin Calcium (Lipitor) 10 mg DAILY@21 PO Last administered on 07/21/18at 20:52; Admin Dose 10 MG; Start 05/29/18 at 21:00 Latanoprost (Xalatan) 1 drop HS BOTH EYES Last administered on 07/21/18at 21:01; Admin Dose 1 DROP; Start 06/01/18 at 21:00 Amlodipine Besylate (Norvasc) 5 mg DAILY PO ; Start 06/03/18 at 09:00; Status Hold Pantoprazole (Protonix Tab) 40 mg DAILY@06 PO Last administered on 07/22/18at 05:19; Admin Dose 40 MG; Start 06/05/18 at 06:00 Metoclopramide HCl (Reglan) 5 mg TID PRN IV Nausea; Start 06/06/18 at 11:00 Polyethylene Glycol (Miralax) 17 gm BID PRN PO CONSTIPATION; Start 06/06/18 at 14:00 Bisacodyl (Dulcolax Supp) 10 mg DAILY PRN [place] CONSTIPATION; Start 06/06/18 at 14:00 IV Flush (NS 10 ml) 10 ml PRN PRN IV IV PROTOCOL; Start 06/06/18 at 16:00 Nystatin (Nystatin Susp) 5 ml QID PO Last administered on 07/22/18 17:22; Admin Dose 5 ML; Start 06/06/18 at 17:00 Docusate Sodium (Colace) 100 mg DAILY PRN PO CONSTIPATION; Start 06/21/18 at 12:00 Miscellaneous Information (Pending [facility] Order For Wound Care) This patient gomes... PRN PRN XX WOUND CARE; Start 06/21/18 at 16:00 Amiodarone HCl (Cordarone) 200 mg BID PO Last administered on 07/22/18 08:46; Admin Dose 200 MG; Start 06/22/18 at 21:00 Ferrous Sulfate (Ferrous Sulfate (Ec)) 325 mg BID PO Last administered on 07/22/18 08:46; Admin Dose 325 MG; Start 07/09/18 at 09:30 Docusate Sodium (Colace) 100 mg DAILY PO Last administered on 07/22/18 08:46; Admin Dose 100 MG; Start 07/10/18 at 09:00 Acetaminophen (Tylenol Tab) 650 mg Q6H PRN PO MILD PAIN(1-3)OR ELEVATED TEMP Last administered on 07/14/18 21:04; Admin Dose 650 MG; Start 07/14/18 at 21:00 Bumetanide (Bumex) 1 mg DAILY PO Last administered on 07/22/18 08:46; Admin Dose 1 MG; Start 07/15/18 at 09:00 Warfarin Sodium (Coumadin) 5 mg DAILY@17 PO Last administered on 07/20/18 17:12; Admin Dose 5 MG; Start 07/18/18 at 17:30; Status Hold CHRIS LAZAR Apr 12, 2019 17:41
[2018-07-22] MEDS: ATORVASTATIN 10 MG TAB PO SCH (20:27)
[2018-07-22] MEDS: LATANOPROST 0.005% 2.5 ML OPH BOTH EYES SCH (20:28)
[2018-07-23] VITALS (12 sets, daily range): BP systolic 118–131; BP diastolic 0–63; PULSE 63–108; RESP 16–18
[2018-07-23] MEDS: PANTOPRAZOLE (EC) 40 MG TAB PO SCH (05:57)
[2018-07-23] MEDS: LEVOTHYROXINE 50 MCG TAB PO SCH (06:00)
[2018-07-23] MEDS: NYSTATIN SUSP 5 ML CUP PO SCH ×4 (08:47→21:18)
[2018-07-23] MEDS: MOMETASONE 0.24 GM INHALER INH SCH (08:47)
[2018-07-23] MEDS: FERROUS SULFATE (EC) 325 MG TAB PO SCH ×2 (08:48→21:18)
[2018-07-23] MEDS: BUMETANIDE 1 MG TAB PO SCH (08:48)
[2018-07-23] MEDS: DOCUSATE SODIUM 100 MG CAP PO SCH (08:49)
[2018-07-23] MEDS: AMIODARONE 200 MG TAB PO SCH (08:49)
--- NOTE | 2018-07-23 16:03 | CONS ---
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 PAF Urinary/vaginal fistula Continue Asmanex Continue Bumex Continue Amiodarone Continue Lipitor Continue Synthroid Consultation Date/Type/Reason Admit Date/Time May 28, 2018 at 17:52 Type of Consult Cardiology Date/Time of Note DATE: 07/23/18 TIME: 15:58 Past Medical History Home Meds Reported Medications Albuterol Sulfate* (Ventolin HFA*) 18 Gm Hfa.aer.ad, 2 PUFF INHALATION Q4H, #1 INHALER 05/26/18 Ergocalciferol (Vitamin D2) (VITAMIN D2) 50,000 Unit Capsule, 32373 UNIT PO [id number], CAP 05/23/18 Warfarin Sodium* (Coumadin*) 5 Mg Tablet, 5 MG PO Q TU,THUR,SAT, TAB 05/23/18 Warfarin Sodium* (Coumadin*) 4 Mg Tablet, 4 MG PO Q MON,WED,FRI,SUN, TAB 05/23/18 Furosemide* (Furosemide*) 20 Mg Tablet, 20 MG PO DAILY, #60 TAB TAKE Q 2 DAYS 05/23/18 Simvastatin* (Zocor*) 20 Mg Tablet, 20 MG PO QHS, #30 TAB 05/23/18 Ranitidine Hcl* (Ranitidine Hcl*) 150 Mg Tablet, 150 MG PO HS, #30 TAB 05/23/18 Acetaminophen (Mapap) 500 Mg Capsule, 500 MG PO BID PRN for PAIN, CAP 05/23/18 Levothyroxine Sodium* (Levothyroxine Sodium*) 50 Mcg Tablet, 50 MCG PO BEFORE BREAKFAST, #30 TAB 05/23/18 Spironolactone* (Aldactone*) 25 Mg Tablet, 25 MG PO DAILY, #30 TAB 05/23/18 Beclomethasone Dipropionate (Qvar Redihaler (40 MCG)) 10.6 Gm Hfa.aeroba, 10.6 GM IH DAILY, INH 05/23/18 Amlodipine Besylate* (Norvasc*) 5 Mg Tablet, 5 MG PO BID, TAB 05/23/18 Losartan-Hydrochlorothiazide (Losartan-HCTZ) 100-25 Mg Tab, 1 TAB PO DAILY, TAB 05/23/18 Medications Current Medications Levothyroxine Sodium (Synthroid) 50 mcg BEFORE BREAKFAST PO Last administered on 07/23/18 06:00; Admin Dose 50 MCG; Start 05/30/18 at 07:00 Mometasone Furoate (Asmanex) 1 puff DAILY INH Last administered on 07/23/18 08:47; Admin Dose 1 PUFF; Start 05/29/18 at 11:00 Atorvastatin Calcium (Lipitor) 10 mg DAILY@21 PO Last administered on 07/22/18 20:27; Admin Dose 10 MG; Start 05/29/18 at 21:00 Latanoprost (Xalatan) 1 drop HS BOTH EYES Last administered on 07/22/18 20:28; Admin Dose 1 DROP; Start 06/01/18 at 21:00 Amlodipine Besylate (Norvasc) 5 mg DAILY PO ; Start 06/03/18 at 09:00; Status Hold Pantoprazole (Protonix Tab) 40 mg DAILY@06 PO Last administered on 07/23/18 05:57; Admin Dose 40 MG; Start 06/05/18 at 06:00 Metoclopramide HCl (Reglan) 5 mg TID PRN IV Nausea; Start 06/06/18 at 11:00 Polyethylene Glycol (Miralax) 17 gm BID PRN PO CONSTIPATION; Start 06/06/18 at 14:00 Bisacodyl (Dulcolax Supp) 10 mg DAILY PRN [place] CONSTIPATION; Start 06/06/18 at 14:00 IV Flush (NS 10 ml) 10 ml PRN PRN IV IV PROTOCOL; Start 06/06/18 at 16:00 Nystatin (Nystatin Susp) 5 ml QID PO Last administered on 07/23/18 12:35; Admin Dose 5 ML; Start 06/06/18 at 17:00 Miscellaneous Information (Pending [facility] Order For Wound Care) This patient gomes... PRN PRN XX WOUND CARE; Start 06/21/18 at 16:00 Ferrous Sulfate (Ferrous Sulfate (Ec)) 325 mg BID PO Last administered on 07/23/18 08:48; Admin Dose 325 MG; Start 07/09/18 at 09:30 Docusate Sodium (Colace) 100 mg DAILY PO Last administered on 07/23/18 08:49; Admin Dose 100 MG; Start 07/10/18 at 09:00 Acetaminophen (Tylenol Tab) 650 mg Q6H PRN PO MILD PAIN(1-3)OR ELEVATED TEMP Last administered on 07/14/18 21:04; Admin Dose 650 MG; Start 07/14/18 at 21:00 Bumetanide (Bumex) 1 mg DAILY PO Last administered on 07/23/18 08:48; Admin Dose 1 MG; Start 07/15/18 at 09:00 Warfarin Sodium (Coumadin) 5 mg DAILY@17 PO Last administered on 07/20/18at 17:12; Admin Dose 5 MG; Start 07/18/18 at 17:30; Status Hold Amiodarone HCl (Cordarone) 200 mg DAILY PO Last administered on 07/23/18 08:49; Admin Dose 200 MG; Start 07/23/18 at 09:00 Allergies: Coded Allergies: No Known Allergy (Unverified , 07/17/18) Social History Smoking Status: Never smoker Exam/Review of Systems Vital Signs Vitals Vital Signs Date Temp Pulse Resp B/P (MAP) Pulse Ox O2 O2 Flow FiO2 Time Delivery Rate 07/23/18 98.7 87 18 118/56 94 Room Air 15:19 (76) Intake and Output 07/22/18 07/22/18 07/23/18 1515:00 23:00 07:00 IntakeIntake Total 790 ml 300 ml OutputOutput Total 1400 ml 600 ml 600 ml BalanceBalance -1400 ml 190 ml -300 ml Exam Constitutional: alert, oriented Head: normocephalic, atraumatic Neck: supple, non-tender Respiratory: clear to auscultation Cardiovascular: regular rate and rhythm (no m/r/g) Gastrointestinal: soft Extremities: normal pulses Labs Result Diagram: 07/22/18 0607/22/18 06 Results 24hrs Laboratory Tests Test 07/23/18 06:51 Prothrombin Time 26.9 #H Prothrombin Time Ratio 2.1 INR International Normalized Ratio 2.48 Medications Medications Current Medications Levothyroxine Sodium (Synthroid) 50 mcg BEFORE BREAKFAST PO Last administered on 07/23/18 06:00; Admin Dose 50 MCG; Start 05/30/18 at 07:00 Mometasone Furoate (Asmanex) 1 puff DAILY INH Last administered on 07/23/18 08:47; Admin Dose 1 PUFF; Start 05/29/18 at 11:00 Atorvastatin Calcium (Lipitor) 10 mg DAILY@21 PO Last administered on 07/22/18 20:27; Admin Dose 10 MG; Start 05/29/18 at 21:00 Latanoprost (Xalatan) 1 drop HS BOTH EYES Last administered on 07/22/18 20:28; Admin Dose 1 DROP; Start 06/01/18 at 21:00 Amlodipine Besylate (Norvasc) 5 mg DAILY PO ; Start 06/03/18 at 09:00; Status Hold Pantoprazole (Protonix Tab) 40 mg DAILY@06 PO Last administered on 07/23/18 05:57; Admin Dose 40 MG; Start 06/05/18 at 06:00 Metoclopramide HCl (Reglan) 5 mg TID PRN IV Nausea; Start 06/06/18 at 11:00 Polyethylene Glycol (Miralax) 17 gm BID PRN PO CONSTIPATION; Start 06/06/18 at 14:00 Bisacodyl (Dulcolax Supp) 10 mg DAILY PRN [place] CONSTIPATION; Start 06/06/18 at 14:00 IV Flush (NS 10 ml) 10 ml PRN PRN IV IV PROTOCOL; Start 06/06/18 at 16:00 Nystatin (Nystatin Susp) 5 ml QID PO Last administered on 07/23/18 12:35; Admin Dose 5 ML; Start 06/06/18 at 17:00 Miscellaneous Information (Pending [facility] Order For Wound Care) This patient gomes... PRN PRN XX WOUND CARE; Start 06/21/18 at 16:00 Ferrous Sulfate (Ferrous Sulfate (Ec)) 325 mg BID PO Last administered on 07/23/18 08:48; Admin Dose 325 MG; Start 07/09/18 at 09:30 Docusate Sodium (Colace) 100 mg DAILY PO Last administered on 07/23/18 08:49; Admin Dose 100 MG; Start 07/10/18 at 09:00 Acetaminophen (Tylenol Tab) 650 mg Q6H PRN PO MILD PAIN(1-3)OR ELEVATED TEMP Last administered on 07/14/18 21:04; Admin Dose 650 MG; Start 07/14/18 at 21:00 Bumetanide (Bumex) 1 mg DAILY PO Last administered on 07/23/18at 08:48; Admin Dose 1 MG; Start 07/15/18 at 09:00 Warfarin Sodium (Coumadin) 5 mg DAILY@17 PO Last administered on 07/20/18at 17:12; Admin Dose 5 MG; Start 07/18/18 at 17:30; Status Hold Amiodarone HCl (Cordarone) 200 mg DAILY PO Last administered on 07/23/18at 08:49; Admin Dose 200 MG; Start 07/23/18 at 09:00 ARIADNE GLOVER M.D. Jul 23, 2018 16:03
--- NOTE | 2018-07-23 20:26 | CONS ---
Assessment/Plan Assessment/Plan Hospital Course (Demo Recall) # sepsis, cardiopulmonary - S/p severe sepsis due to UTI, resolved - S/p SIRS due to acute blood loss, resolved - S/p L heart catheterization on 05/27/2018 showing no significant obstructive CAD - CAD - S/p CABG [facility] - H/o MVR with mechanical valve, in 1999 - Hypertension - PAF - Asthma # urology/renal, GI - Recurrent UTI on 07/15/2018 due to Citrobacter Freundii, Enterococcus species, MDR Enterobacter; s/p Zosyn->ertapenem - Hematuria caused by ruptured urinary bladder (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 - US Abdomen 07/18/18 showed Complex fluid collection about the anterior superior bladder measuring up to 10.0 x 8.6 x 7.2 cm. Bladder wall thickening. - Mensah was exchanged on 07/12/2018 and 07/14/2018 because her older catheter was leaking - S/p UTI due to hafnai alvei and pediococci on 06/30/18. Pt completed pip/tazo (07/02/18-07/05/2018) for this episode - S/p UTI due to E. coli. 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, s/p covered stent placement 6 x 100 mm right common femoral artery and right external iliac artery, abdominal aortogram, catheter introduction to the abdominal aorta, JOSÉ MIGUEL guidance into the central artery 06/02/2018 - S/p retroperitoneal bleed - S/p acute anemia requiring PRBC # endo - Hyperlipidemia - Hypothyroidism Recommendations: - monitor Pt closely off antibiotics - patient/family considering options for correction of bladder hematoma fistula - will continue to follow closely with you Management discussed with patient, pt's , GONZALO Pat, and with Dr. Hughes Consultation Date/Type/Reason Admit Date/Time May 28, 2018 at 17:52 Initial Consult Date 06/02/18 Type of Consult Infectious Disease Requesting Provider: JULY VALENTIN MD Date/Time of Note DATE: 07/23/18 TIME: 20:26 24 HR Interval Summary Free Text/Dictation No acute issues. CM [facility]. Denies pain, SOB, dysuria, hematuria. Exam/Review of Systems Exam Vitals Vital Signs Date Temp Pulse Resp B/P (MAP) Pulse Ox O2 O2 Flow FiO2 Time Delivery Rate 07/23/18 99.0 108 18 123/57 94 Room Air 19:39 (79) Intake and Output 07/22/18 07/22/18 07/23/18 1515:00 23:00 07:00 IntakeIntake Total 790 ml 300 ml OutputOutput Total 1400 ml 600 ml 600 ml BalanceBalance -1400 ml 190 ml -300 ml Exam Constitutional: alert, oriented, well developed, other (lying in bed in NAD) Psych: no complaints, nl mood/affect Head: normocephalic, atraumatic Eyes: nl conjunctiva, nl lids, nl sclera ENMT: nl external ears & nose, nl nasal mucosa & septum, mucosa pink and moist (no thrush) Neck: supple, non-tender Respiratory: clear to auscultation, normal air movement Cardiovascular: regular rate and rhythm, nl pulses Gastrointestinal: soft, non-tender, bowel sounds (normoactive) Genitourinary - Female: other (F/c with yellow hazy urine) Musculoskeletal: nl extremities to inspection Extremities: normal pulses Neurological: CHUTE TAPPER II-XII intact, nl mental status, nl speech, nl strength Skin: nl turgor; No rash or lesions Results Result Diagram: 07/22/1862807/22/18628 Results 24hrs Laboratory Tests Test 07/23/18 06:51 Prothrombin Time 26.9 #H Prothrombin Time Ratio 2.1 INR International Normalized Ratio 2.48 Medications Medication Current Medications Levothyroxine Sodium (Synthroid) 50 mcg BEFORE BREAKFAST PO Last administered on 07/23/18 06:00; Admin Dose 50 MCG; Start 05/30/18 at 07:00 Mometasone Furoate (Asmanex) 1 puff DAILY INH Last administered on 07/23/18 08:47; Admin Dose 1 PUFF; Start 05/29/18 at 11:00 Atorvastatin Calcium (Lipitor) 10 mg DAILY@21 PO Last administered on 07/22/18 20:27; Admin Dose 10 MG; Start 05/29/18 at 21:00 Latanoprost (Xalatan) 1 drop HS BOTH EYES Last administered on 07/22/18 20:28; Admin Dose 1 DROP; Start 06/01/18 at 21:00 Amlodipine Besylate (Norvasc) 5 mg DAILY PO ; Start 06/03/18 at 09:00; Status Hold Pantoprazole (Protonix Tab) 40 mg DAILY@06 PO Last administered on 07/23/18 05 :57; Admin Dose 40 MG; Start 06/05/18 at 06:00 Metoclopramide HCl (Reglan) 5 mg TID PRN IV Nausea; Start 06/06/18 at 11:00 Polyethylene Glycol (Miralax) 17 gm BID PRN PO CONSTIPATION; Start 06/06/18 at 14:00 Bisacodyl (Dulcolax Supp) 10 mg DAILY PRN [place] CONSTIPATION; Start 06/06/18 at 14:00 IV Flush (NS 10 ml) 10 ml PRN PRN IV IV PROTOCOL; Start 06/06/18 at 16:00 Nystatin (Nystatin Susp) 5 ml QID PO Last administered on 07/23/18 17:39; Admin Dose 5 ML; Start 06/06/18 at 17:00 Ferrous Sulfate (Ferrous Sulfate (Ec)) 325 mg BID PO Last administered on 07/23/18 08:48; Admin Dose 325 MG; Start 07/09/18 at 09:30 Docusate Sodium (Colace) 100 mg DAILY PO Last administered on 07/23/18 08:49; Admin Dose 100 MG; Start 07/10/18 at 09:00 Acetaminophen (Tylenol Tab) 650 mg Q6H PRN PO MILD PAIN(1-3)OR ELEVATED TEMP Last administered on 07/14/18 21:04; Admin Dose 650 MG; Start 07/14/18 at 21:00 Bumetanide (Bumex) 1 mg DAILY PO Last administered on 07/23/18at 08:48; Admin Dose 1 MG; Start 07/15/18 at 09:00 Warfarin Sodium (Coumadin) 5 mg DAILY@17 PO Last administered on 07/20/18at 17:12; Admin Dose 5 MG; Start 07/18/18 at 17:30; Status Hold Amiodarone HCl (Cordarone) 200 mg DAILY PO Last administered on 07/23/18at 08:49; Admin Dose 200 MG; Start 07/23/18 at 09:00 KISHORE JARAMILLO NP Jul 23, 2018 20:26
[2018-07-23] MEDS: ATORVASTATIN 10 MG TAB PO SCH (21:17)
[2018-07-23] MEDS: LATANOPROST 0.005% 2.5 ML OPH BOTH EYES SCH (21:18)
[2018-07-24] VITALS (10 sets, daily range): BP systolic 104–143; BP diastolic 54–61; PULSE 75–101; RESP 18
--- NOTE | 2018-07-24 02:14 | PN ---
DATE: 07/23/2018 SUBJECTIVE: The patient is breathing comfortably at rest. Denies any chest pain. Hematuria has res olved. No abdominal pain. No fever or chills. PHYSICAL EXAMINATION: GENERAL: The patient is awake, alert. VITAL SIGNS: Temperature 99, pulse 90, respirations 16, blood pressure 131/56, O2 saturation 96 on r oom air. NECK: No mass, no JVD. CHEST: Fairly clear. CARDIOVASCULAR: Irregular rhythm. ABDOMEN: Soft, nondistended. EXTREMITIES: No edema. LABORATORY DATA: INR 2.48. IMPRESSION: 1. Bladder fistula. Dr. Ashford has recommended surgery, but he does not perform laparoscopic repai r of bladder. Therefore, the patient will be referred to [facility] [place]. Plan of care discussed with the patient's son . 2. Hypertension. 3. Hypothyroidism. 4. Dyslipidemia. 5. Atrial fibrillation. Medication list reviewed. The patient's Coumadin is being withheld due to recent elevated INR. Will recheck in the morning. If the INR drops below 2.4, we will resume Coumad in. 6. Diastolic heart failure. Continue Bumex orally. Dictated By: JULY VALENTIN MD AB/NTS Conf#: [id number] DID#: [id number] CC: CHRIS LAZAR MD;*EndCC*
[2018-07-24] MEDS: PANTOPRAZOLE (EC) 40 MG TAB PO SCH (05:51)
[2018-07-24] MEDS: LEVOTHYROXINE 50 MCG TAB PO SCH (05:51)
[2018-07-24] MEDS: AMIODARONE 200 MG TAB PO SCH (08:48)
[2018-07-24] MEDS: FERROUS SULFATE (EC) 325 MG TAB PO SCH ×2 (08:48→20:48)
[2018-07-24] MEDS: DOCUSATE SODIUM 100 MG CAP PO SCH (08:48)
[2018-07-24] MEDS: BUMETANIDE 1 MG TAB PO SCH (08:48)
[2018-07-24] MEDS: MOMETASONE 0.24 GM INHALER INH SCH (08:48)
[2018-07-24] MEDS: NYSTATIN SUSP 5 ML CUP PO SCH ×4 (08:48→20:48)
--- NOTE | 2018-07-24 09:12 | PN ---
DATE: 07/24/2018 SUBJECTIVE: The patient is stable, no events noted. OBJECTIVE: VITAL SIGNS: Blood pressure is 119/61, pulse 85, respirations 18, temperature 98.2. HEENT: Head is normocephalic. NECK: Supple. HEART: Regular rate. LUNGS: Show diminished breath sounds at the base. ABDOMEN: Soft, nontender to palpation without rebound or guarding. EXTREMITIES: Negative for clubbing, cyanosis. Trace edema. DERMATOLOGIC: No rashes. MUSCULOSKELETAL: No joint effusion. NEUROLOGIC: No change in exam. MEDICATIONS: Reviewed. LABORATORY DATA: Reviewed. ASSESSMENT AND PLAN: 1. Nonoliguric acute kidney injury with previously normal baseline creatinine. Etiology of acute ki dney injury is secondary to acute tubular necrosis. Renal function is improved. Continue to monitor . 2. Hematuria, resolved. 3. Volume overload, improving. Continue diuretic therapy, monitor electrolytes closely. 4. Hypokalemia, improved. Continue to monitor and replete as needed. 5. Anemia. Monitor hemoglobin and hematocrit levels. 6. Mechanical heart valve. Continue anticoagulation per cardiology. 7. Sepsis secondary to urinary tract infection. Continue current antibiotic regimen. 8. Hypothyroidism. Continue Synthroid. 9. Dyslipidemia. Continue statin therapy. 10. Hypertension. Continue current blood pressure regimen. 11. Liver cirrhosis. Continue medical management. 12. Intraabdominal hematoma. 13. Status post urinary tract infection. Dictated By: GWYN FABIAN DO NR/NTS Conf#: [id number] DID#: [id number] CC: JULY VALENTIN MD; JOAQUIN DE LEON MD; CHRIS LAZAR MD;*EndCC*
--- NOTE | 2018-07-24 12:16 | CONS ---
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 Objective Vitals Vital Signs Date Temp Pulse Resp B/P (MAP) Pulse Ox O2 O2 Flow FiO2 Time Delivery Rate 07/24/18 87 12:11 07/24/18 98.2 18 117/57 98 12:05 (77) 07/24/18 Room Air 03:54 Intake and Output 07/23/18 07/23/18 07/24/18 1515:00 23:00 07:00 IntakeIntake Total 1440 ml OutputOutput Total 1550 ml 500 ml BalanceBalance -110 ml -500 ml Exam The Mensah catheter is draining clear urine Results/Medications Result Diagram: 07/22/18 0629 07/22/18 0629 Results 24 hrs Laboratory Tests Test 07/24/18 05:51 Prothrombin Time 21.4 #H Prothrombin Time Ratio 1.7 INR International Normalized Ratio 1.85 Home Meds Reported Medications Albuterol Sulfate* (Ventolin HFA*) 18 Gm Hfa.aer.ad, 2 PUFF INHALATION Q4H, #1 INHALER 05/26/18 Ergocalciferol (Vitamin D2) (VITAMIN D2) 50,000 Unit Capsule, 66518 UNIT PO [id number], CAP 05/23/18 Warfarin Sodium* (Coumadin*) 5 Mg Tablet, 5 MG PO Q TUES,THUR,SAT, TAB 05/23/18 Warfarin Sodium* (Coumadin*) 4 Mg Tablet, 4 MG PO Q MON,WED,FRI,SUN, TAB 05/23/18 Furosemide* (Furosemide*) 20 Mg Tablet, 20 MG PO DAILY, #60 TAB TAKE Q 2 DAYS 05/23/18 Simvastatin* (Zocor*) 20 Mg Tablet, 20 MG PO QHS, #30 TAB 05/23/18 Ranitidine Hcl* (Ranitidine Hcl*) 150 Mg Tablet, 150 MG PO HS, #30 TAB 05/23/18 Acetaminophen (Mapap) 500 Mg Capsule, 500 MG PO BID PRN for PAIN, CAP 05/23/18 Levothyroxine Sodium* (Levothyroxine Sodium*) 50 Mcg Tablet, 50 MCG PO BEFORE BREAKFAST, #30 TAB 05/23/18 Spironolactone* (Aldactone*) 25 Mg Tablet, 25 MG PO DAILY, #30 TAB 05/23/18 Beclomethasone Dipropionate (Qvar Redihaler (40 MCG)) 10.6 Gm Hfa.aeroba, 10.6 GM IH DAILY, INH 05/23/18 Amlodipine Besylate* (Norvasc*) 5 Mg Tablet, 5 MG PO BID, TAB 05/23/18 Losartan-Hydrochlorothiazide (Losartan-HCTZ) 100-25 Mg Tab, 1 TAB PO DAILY, TAB 05/23/18 Medications Current Medications Levothyroxine Sodium (Synthroid) 50 mcg BEFORE BREAKFAST PO Last administered on 07/24/18at 05:51; Admin Dose 50 MCG; Start 05/30/18 at 07:00 Mometasone Furoate (Asmanex) 1 puff DAILY INH Last administered on 07/24/18at 08:48; Admin Dose 1 PUFF; Start 05/29/18 at 11:00 Atorvastatin Calcium (Lipitor) 10 mg DAILY@21 PO Last administered on 07/23/18at 21:17; Admin Dose 10 MG; Start 05/29/18 at 21:00 Latanoprost (Xalatan) 1 drop HS BOTH EYES Last administered on 07/23/18at 21:18; Admin Dose 1 DROP; Start 06/01/18 at 21:00 Amlodipine Besylate (Norvasc) 5 mg DAILY PO ; Start 06/03/18 at 09:00; Status Hold Pantoprazole (Protonix Tab) 40 mg DAILY@06 PO Last administered on 07/24/18at 05:51; Admin Dose 40 MG; Start 06/05/18 at 06:00 Metoclopramide HCl (Reglan) 5 mg TID PRN IV Nausea; Start 06/06/18 at 11:00 Polyethylene Glycol (Miralax) 17 gm BID PRN PO CONSTIPATION; Start 06/06/18 at 14:00 Bisacodyl (Dulcolax Supp) 10 mg DAILY PRN [place] CONSTIPATION; Start 06/06/18 at 14:00 IV Flush (NS 10 ml) 10 ml PRN PRN IV IV PROTOCOL; Start 06/06/18 at 16:00 Nystatin (Nystatin Susp) 5 ml QID PO Last administered on 07/24/18 08:48; Admin Dose 5 ML; Start 06/06/18 at 17:00 Ferrous Sulfate (Ferrous Sulfate (Ec)) 325 mg BID PO Last administered on 07/24/18 08:48; Admin Dose 325 MG; Start 07/09/18 at 09:30 Docusate Sodium (Colace) 100 mg DAILY PO Last administered on 07/24/18 08:48; Admin Dose 100 MG; Start 07/10/18 at 09:00 Acetaminophen (Tylenol Tab) 650 mg Q6H PRN PO MILD PAIN(1-3)OR ELEVATED TEMP Last administered on 07/14/18 21:04; Admin Dose 650 MG; Start 07/14/18 at 21:00 Bumetanide (Bumex) 1 mg DAILY PO Last administered on 07/24/18 08:48; Admin Dose 1 MG; Start 07/15/18 at 09:00 Warfarin Sodium (Coumadin) 5 mg DAILY@17 PO Last administered on 07/20/18 17:12; Admin Dose 5 MG; Start 07/18/18 at 17:30; Status Hold Amiodarone HCl (Cordarone) 200 mg DAILY PO Last administered on 07/24/18 08:48; Admin Dose 200 MG; Start 07/23/18 at 09:00 Assessment/Plan Hospital Course (Demo Recall) 62-year-old female had a 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 Recent CT cystogram showed the fistula still be wide open. And the patient is still has collection of fluids. I did discuss the treatment with the patient and her with the help of a nurse who speaks Nepali and translated to them. I told them since the opening in the bladder is wide about 2 to 2.5cm it would be difficult to heal by itself. Therefore it is better to operate on her, drain the hematoma and remove any fluids around the bladder and close the fistula. I informed them that I do that by open procedure as they were asking about doing laparoscopic surgery. I again informed them that I do not do laparoscopic surgery. The patient and the family would want her to have a laparoscopic surgery rather than open surgery. Since I do not do this laparoscopically she may need to be transferred to a facility where the urologist does laparoscopic surgery. I have also previously mentioned to the pillowcase sewer to request a consultation with Dr. Lindo. JOAQUIN DE LEON MD Jul 24, 2018 12:16
--- NOTE | 2018-07-24 14:44 | CONS ---
Assessment/Plan Assessment/Plan Hospital Course (Demo Recall) # sepsis, cardiopulmonary - S/p severe sepsis due to UTI, resolved - S/p SIRS due to acute blood loss, resolved - S/p L heart catheterization on 05/27/2018 showing no significant obstructive CAD - CAD - S/p CABG in [facility] in 1982 - H/o MVR with mechanical valve, in 1999 - Hypertension - PAF - Asthma # urology/renal, GI - Recurrent UTI on 07/15/2018 due to Citrobacter Freundii, Enterococcus species, MDR Enterobacter; s/p Zosyn->ertapenem - Hematuria caused by ruptured urinary bladder (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 - US Abdomen 07/18/18 showed Complex fluid collection about the anterior superior bladder measuring up to 10.0 x 8.6 x 7.2 cm. Bladder wall thickening. - Mensah was exchanged on 07/12/2018 and 07/14/2018 because her older catheter was leaking - S/p UTI due to hafnai alvei and pediococci on 06/30/18. Pt completed pip/tazo (07/02/18-07/05/2018) for this episode - S/p UTI due to E. coli. 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, s/p covered stent placement 6 x 100 mm right common femoral artery and right external iliac artery, abdominal aortogram, catheter introduction to the abdominal aorta, JOSÉ MIGUEL guidance into the central artery 06/02/2018 - S/p retroperitoneal bleed - S/p acute anemia requiring PRBC # endo - Hyperlipidemia - Hypothyroidism Recommendations: - monitor Pt closely off antibiotics - patient/family considering options for correction of bladder hematoma fistula; They prefer transfer to tertiary hospital for laparoscopic surgery. - will continue to follow closely with you Management discussed with patient, pt's , and with Dr. Hughes Consultation Date/Type/Reason Admit Date/Time May 28, 2018 at 17:52 Initial Consult Date 06/02/18 Type of Consult Infectious Disease Requesting Provider: JULY VALENTIN MD Date/Time of Note DATE: 07/24/18 TIME: 14:44 24 HR Interval Summary Free Text/Dictation Pt just came back from walking with her . No new complaints. Denies pain. No hematuria. Exam/Review of Systems Exam Vitals Vital Signs Date Temp Pulse Resp B/P (MAP) Pulse Ox O2 O2 Flow FiO2 Time Delivery Rate 07/24/18 87 12:11 07/24/18 98.2 18 117/57 98 12:05 (77) 07/24/18 Room Air 03:54 Intake and Output 07/23/18 07/23/18 07/24/18 1414:59 22:59 06:59 IntakeIntake Total 1440 ml OutputOutput Total 1550 ml 500 ml BalanceBalance -110 ml -500 ml Exam Constitutional: alert, oriented, well developed, other (lying in bed in NAD as pt's is removing her socks) Psych: no complaints, nl mood/affect Head: normocephalic, atraumatic Eyes: nl conjunctiva, nl lids, nl sclera ENMT: nl external ears & nose, nl nasal mucosa & septum, mucosa pink and moist (no thrush) Neck: supple, non-tender Respiratory: clear to auscultation, normal air movement Cardiovascular: regular rate and rhythm, nl pulses Gastrointestinal: soft, bowel sounds (normoactive), other (very little TTP on lower abdomen) Genitourinary - Female: other (F/c with yellow hazy urine) Musculoskeletal: nl extremities to inspection Extremities: normal pulses Neurological: EXHAUST EMISSIONS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, nl mental status, nl speech, nl strength Skin: nl turgor; No rash or lesions Results Result Diagram: 07/22/18 0629 07/22/18 0629 Results 24hrs Laboratory Tests Test 07/24/18 05:51 Prothrombin Time 21.4 #H Prothrombin Time Ratio 1.7 INR International Normalized Ratio 1.85 Medications Medication Current Medications Levothyroxine Sodium (Synthroid) 50 mcg BEFORE BREAKFAST PO Last administered on 07/24/18 05:51; Admin Dose 50 MCG; Start 05/30/18 at 07:00 Mometasone Furoate (Asmanex) 1 puff DAILY INH Last administered on 07/24/18 08:48; Admin Dose 1 PUFF; Start 05/29/18 at 11:00 Atorvastatin Calcium (Lipitor) 10 mg DAILY@21 PO Last administered on 07/23/18 21:17; Admin Dose 10 MG; Start 05/29/18 at 21:00 Latanoprost (Xalatan) 1 drop HS BOTH EYES Last administered on 07/23/18 21:18; Admin Dose 1 DROP; Start 06/01/18 at 21:00 Amlodipine Besylate (Norvasc) 5 mg DAILY PO ; Start 06/03/18 at 09:00; Status Hold Pantoprazole (Protonix Tab) 40 mg DAILY@06 PO Last administered on 07/24/18 05:51; Admin Dose 40 MG; Start 06/05/18 at 06:00 Metoclopramide HCl (Reglan) 5 mg TID PRN IV Nausea; Start 06/06/18 at 11:00 Polyethylene Glycol (Miralax) 17 gm BID PRN PO CONSTIPATION; Start 06/06/18 at 14:00 Bisacodyl (Dulcolax Supp) 10 mg DAILY PRN [place] CONSTIPATION; Start 06/06/18 at 14 :00 IV Flush (NS 10 ml) 10 ml PRN PRN IV IV PROTOCOL; Start 06/06/18 at 16:00 Nystatin (Nystatin Susp) 5 ml QID PO Last administered on 07/24/18 12:47; Admin Dose 5 ML; Start 06/06/18 at 17:00 Ferrous Sulfate (Ferrous Sulfate (Ec)) 325 mg BID PO Last administered on 07/24/18 08:48; Admin Dose 325 MG; Start 07/09/18 at 09:30 Docusate Sodium (Colace) 100 mg DAILY PO Last administered on 07/24/18 08:48; Admin Dose 100 MG; Start 07/10/18 at 09:00 Acetaminophen (Tylenol Tab) 650 mg Q6H PRN PO MILD PAIN(1-3)OR ELEVATED TEMP Last administered on 07/14/18 21:04; Admin Dose 650 MG; Start 07/14/18 at 21:00 Bumetanide (Bumex) 1 mg DAILY PO Last administered on 07/24/18 08:48; Admin Dose 1 MG; Start 07/15/18 at 09:00 Amiodarone HCl (Cordarone) 200 mg DAILY PO Last administered on 07/24/18at 08 :48; Admin Dose 200 MG; Start 07/23/18 at 09:00 Warfarin Sodium (Coumadin) 5 mg DAILY@17 PO ; Start 07/24/18 at 17:00 KISHORE JARAMILLO NP Jul 24, 2018 14:44
--- NOTE | 2018-07-24 14:57 | CONS ---
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 Coumadin 5mg today Continue Asmanex Continue Bumex Continue Amiodarone Continue Lipitor Continue Synthroid Consultation Date/Type/Reason Admit Date/Time May 28, 2018 at 17:52 Initial Consult Date 06/03/18 Type of Consult Cardiology Requesting Provider: JULY VALENTIN MD Date/Time of Note DATE: 07/24/18 TIME: 14:55 Exam/Review of Systems Vital Signs Vitals Vital Signs Date Temp Pulse Resp B/P (MAP) Pulse Ox O2 O2 Flow FiO2 Time Delivery Rate 07/24/18 87 12:11 07/24/18 98.2 18 117/57 98 12:05 (77) 07/24/18 Room Air 03:54 Intake and Output 07/23/18 07/23/18 07/24/18 1515:00 23:00 07:00 IntakeIntake Total 1440 ml OutputOutput Total 1550 ml 500 ml BalanceBalance -110 ml -500 ml Exam Exam Constitutional: alert, oriented Head: normocephalic, atraumatic Neck: supple, non-tender Respiratory: clear to auscultation Cardiovascular: regular rate and rhythm (no m/r/g) Gastrointestinal: soft Extremities: normal pulses Labs Result Diagram: 07/22/18 0629 07/22/18 0629 Results 24hrs Laboratory Tests Test 07/24/18 05:51 Prothrombin Time 21.4 #H Prothrombin Time Ratio 1.7 INR International Normalized Ratio 1.85 Medications Medications Current Medications Levothyroxine Sodium (Synthroid) 50 mcg BEFORE BREAKFAST PO Last administered on 07/24/18at 05:51; Admin Dose 50 MCG; Start 05/30/18 at 07:00 Mometasone Furoate (Asmanex) 1 puff DAILY INH Last administered on 07/24/18at 08:48; Admin Dose 1 PUFF; Start 05/29/18 at 11:00 Atorvastatin Calcium (Lipitor) 10 mg DAILY@21 PO Last administered on 07/23/18at 21:17; Admin Dose 10 MG; Start 05/29/18 at 21:00 Latanoprost (Xalatan) 1 drop HS BOTH EYES Last administered on 07/23/18 21:18; Admin Dose 1 DROP; Start 06/01/18 at 21:00 Amlodipine Besylate (Norvasc) 5 mg DAILY PO ; Start 06/03/18 at 09:00; Status Hold Pantoprazole (Protonix Tab) 40 mg DAILY@06 PO Last administered on 07/24/18 05:51; Admin Dose 40 MG; Start 06/05/18 at 06:00 Metoclopramide HCl (Reglan) 5 mg TID PRN IV Nausea; Start 06/06/18 at 11:00 Polyethylene Glycol (Miralax) 17 gm BID PRN PO CONSTIPATION; Start 06/06/18 at 14:00 Bisacodyl (Dulcolax Supp) 10 mg DAILY PRN [place] CONSTIPATION; Start 06/06/18 at 14:00 IV Flush (NS 10 ml) 10 ml PRN PRN IV IV PROTOCOL; Start 06/06/18 at 16:00 Nystatin (Nystatin Susp) 5 ml QID PO Last administered on 07/24/18 12:47; Admin Dose 5 ML; Start 06/06/18 at 17:00 Ferrous Sulfate (Ferrous Sulfate (Ec)) 325 mg BID PO Last administered on 07/24 08:48; Admin Dose 325 MG; Start 07/09/18 at 09:30 Docusate Sodium (Colace) 100 mg DAILY PO Last administered on 07/24/18 08:48; Admin Dose 100 MG; Start 07/10/18 at 09:00 Acetaminophen (Tylenol Tab) 650 mg Q6H PRN PO MILD PAIN(1-3)OR ELEVATED TEMP Last administered on 07/14/18 21:04; Admin Dose 650 MG; Start 07/14/18 at 21:00 Bumetanide (Bumex) 1 mg DAILY PO Last administered on 07/24/18 08:48; Admin Dose 1 MG; Start 07/15/18 at 09:00 Amiodarone HCl (Cordarone) 200 mg DAILY PO Last administered on 07/24/18 08:48; Admin Dose 200 MG; Start 07/23/18 at 09:00 Warfarin Sodium (Coumadin) 5 mg DAILY@17 PO ; Start 07/24/18 at 17:00 ARIADNE GLOVER M.D. Jul 24, 2018 14:57
[2018-07-24] MEDS ORDERED: WARFARIN 5 MG TAB PO SCH (17:00)
[2018-07-24] MEDS: ATORVASTATIN 10 MG TAB PO SCH (20:48)
[2018-07-24] MEDS: LATANOPROST 0.005% 2.5 ML OPH BOTH EYES SCH (20:48)
[2018-07-25] VITALS (10 sets, daily range): BP systolic 103–121; BP diastolic 53–65; PULSE 77–126; RESP 18
[2018-07-25] MEDS: PANTOPRAZOLE (EC) 40 MG TAB PO SCH (06:24)
[2018-07-25] MEDS: LEVOTHYROXINE 50 MCG TAB PO SCH (06:24)
[2018-07-25] MEDS: BUMETANIDE 1 MG TAB PO SCH (08:21)
[2018-07-25] MEDS: MOMETASONE 0.24 GM INHALER INH SCH (08:21)
[2018-07-25] MEDS: FERROUS SULFATE (EC) 325 MG TAB PO SCH ×2 (08:21→20:36)
[2018-07-25] MEDS: AMIODARONE 200 MG TAB PO SCH (08:22)
[2018-07-25] MEDS: NYSTATIN SUSP 5 ML CUP PO SCH ×4 (08:22→20:34)
[2018-07-25] MEDS: DOCUSATE SODIUM 100 MG CAP PO SCH (08:23)
--- NOTE | 2018-07-25 09:47 | PN ---
DATE: 07/25/2018 SUBJECTIVE: The patient is stable, no events overnight. No fevers, chills, nausea, vomiting. OBJECTIVE: VITAL SIGNS: Blood pressure is 107/61, respiration 18, pulse 101, temperature 98.2. HEENT: Head is normocephalic. NECK: Supple. HEART: Regular rate. LUNGS: Show diminished breath sounds at the base. ABDOMEN: Soft, nontender to palpation without rebound or guarding. EXTREMITIES: Negative for clubbing, cyanosis, no edema. DERMATOLOGIC: No rashes. MUSCULOSKELETAL: No joint effusion. NEUROLOGIC: No change in exam. MEDICATIONS: Have been reviewed. LABORATORY DATA: Has been reviewed. ASSESSMENT AND PLAN: 1. Nonoliguric acute kidney injury with previously normal baseline creatinine. Etiology of acute ki dney injury secondary to acute tubular necrosis. Renal function is improved. Continue to monitor. 2. Hematuria. Etiology secondary to communicating fistula. Hematuria has resolved. Continue to mo nitor. Follow up with urology. 3. Volume overload. Continue to monitor. Continue low-dose diuretic therapy and monitor electrolyt es, renal function closely. 4. Hypokalemia, improved. 5. Anemia. Monitor hemoglobin and hematocrit levels. 6. Mechanical heart valve. Continue anticoagulation per cardiology. 7. Sepsis secondary to urinary tract infection. Continue current antibiotic regimen. 8. Hypothyroidism. Continue Synthroid. 9. Dyslipidemia. Continue statin therapy. 10. Hypertension. Continue current blood pressure regimen. 11. Liver cirrhosis. Continue medical management. 12. Intraabdominal hematoma. 13. Status post urinary tract infection. Dictated By: GWYN FABIAN DO NR/NTS Conf#: [id number] DID#: [id number] CC: JOAQUIN DE LEON MD; CHRIS LAZAR MD; JULY VALENTIN MD;*EndCC*
--- NOTE | 2018-07-25 14:12 | CONS ---
Assessment/Plan Assessment/Plan Hospital Course (Demo Recall) IMP: 1.cad s/p LHC with no sig obstructive cad. Mildly depressed LVEF--40-45% ? nonischemic process 2.HTN 3.RP Bleed s/p transfusions now stable and tolerating heparin/coumadin loading. Then had recurrent bled overnight now s/p covered stent to EDGE SANDER/Ext iliac. Stable collection by abd CT 06/06 but still with pigtail catheter in place 4.HL 5.MVR-mechanical 6.anemia- s/p repair of R EDGE SANDER/illiac. Had hemoptysis with subsequent drop in Hgb again and holding of heparin. Had some mild blood tinged sputum 7.Hypothyroid 8. FOURNIER-negative Head CT 9. Fevers-with positive ua 10. UTI-Being followed by ID and on abx 11.ARF-? Contrast induced/compression from hematoma- now improving with increased urine output and slowly decreasing char filter operator helper 12. Coagulopathy-downtrenede and resumed on couamadin with midly subtherapeutic INR 14. LE weakness-? compression from hematoma and exacerbated by femoral compression after cath-now resolved 15. arterial insuff- LLE- s/p X RAY ELECTRONICS WIRING TECHNICIAN/thrombolysis 06/04 successfully with palpable pulses/B DP/PT and remain that way 16. PAF/AFL-rate controlled 17. 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 Now decreasing hematuria. s/p pelvic CT revealing ongoing fistula and per urology note was discussed with family 18. Epistaxis-improved/resolved. no recurrence 19. 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 ? new , ? etiology. Urology following and per his note has discussed treatment options with family including surgical versus waiting and thinks that closure would be best per notes at this time, Family discussed possible transfer to [facility] for procedure as necessary. Recc: -Now on tele -Continue BB with well controlled Hr's -Continue statin -s/p course of abx's -ongoing ID f/u -F/U char filter operator helper/K closely with creatnine now normalized and volume status improving on bumex bid. Will also assess patient's PO intake and possible contribution to volume overload -Follow HGb closely which has been stable to improved actually -PT/ambulation- doing 3x/day -will continue amio daily for now and follow rhythm clsoely with patient having episodes of PAF/AFL but always rate controlled -Urology following with findings of apparent bladder fistula and thus draining of the hematoma through the bladder causing hematuria which has improved and now apparent bladder-vaginal fistula.Continue to follow hematuria for complete resolution and assess need for spontaneous closure versus need for repair which has been discussed with family and urology and between them as well. ? necessity of closing fistula and d/c'ing vincent at this time given clarity of urine/resolution of hematuria but have discussed with urology and states bladder must remain decompressed until closure of fistula with vincent in place. Family intereseted in laparoscopic approach as possible versus open, Have been offered open repair by urology here. Case management is attempting transfer to tertiary care center at this time. -Now back on coumadin with now subtherapeutic INR. Will give 6 mg tonight and then should receive 5 mg the following day -Continue current bumex now daily PO again with good volume status Consultation Date/Type/Reason Admit Date/Time May 28, 2018 at 17:52 Initial Consult Date 05/28/18 Type of Consult Cardiology Reason for Consultation MVR Requesting Provider: JULY VALENTIN MD Date/Time of Note DATE: 07/25/18 TIME: 14:08 Exam/Review of Systems Vital Signs Vitals Vital Signs Date Temp Pulse Resp B/P (MAP) Pulse Ox O2 O2 Flow FiO2 Time Delivery Rate 07/25/18 89 12:51 07/25/18 98.0 18 110/65 98 12:03 (80) 07/25/18 Room Air 04:00 Intake and Output 07/24/18 07/24/18 07/25/18 1515:00 23:00 07:00 IntakeIntake Total 750 ml 480 ml OutputOutput Total 2200 ml 700 ml BalanceBalance -1450 ml -220 ml Exam Exam Review of Systems: CONSTITUTIONAL: No fevers, chills. PULMONARY: No sob CARDIOVASCULAR: No chest pain/palpitations GASTROINTESTINAL: No nausea/vomiting. GENITOURINARY: No hematuria/dysuria. MUSCULOSKELETAL: No myagias/arthalgias. PSYCHIATRIC: The patient denies depression. NEUROLOGIC: No weakness Constitutional: alert Psych: no complaints Head: normocephalic ENMT: mucosa pink and moist Neck: supple, jvd (9 cm water) Respiratory: diminished breath sounds (at bases/B) Cardiovascular: regular rate and rhythm Gastrointestinal: soft, non-tender Musculoskeletal: muscle tone (normal) Extremities: edema (none) Neurological: other (No focal deficits) Labs Result Diagram: 07/22/1862807/22/18 06 Results 24hrs Laboratory Tests Test 07/25/18 05:35 Prothrombin Time 19.1 H Prothrombin Time Ratio 1.5 INR International Normalized Ratio 1.60 Medications Medications Current Medications Levothyroxine Sodium (Synthroid) 50 mcg BEFORE BREAKFAST PO Last administered on 07/25/18 06:24; Admin Dose 50 MCG; Start 05/30/18 at 07:00 Mometasone Furoate (Asmanex) 1 puff DAILY INH Last administered on 07/25/18 08:21; Admin Dose 1 PUFF; Start 05/29/18 at 11:00 Atorvastatin Calcium (Lipitor) 10 mg DAILY@21 PO Last administered on 07/24/18 20:48; Admin Dose 10 MG; Start 05/29/18 at 21:00 Latanoprost (Xalatan) 1 drop HS BOTH EYES Last administered on 07/24/18 20:48; Admin Dose 1 DROP; Start 06/01/18 at 21:00 Amlodipine Besylate (Norvasc) 5 mg DAILY PO ; Start 06/03/18 at 09:00; Status Hold Pantoprazole (Protonix Tab) 40 mg DAILY@06 PO Last administered on 07/25/18 06:24; Admin Dose 40 MG; Start 06/05/18 at 06:00 Metoclopramide HCl (Reglan) 5 mg TID PRN IV Nausea; Start 06/06/18 at 11:00 Polyethylene Glycol (Miralax) 17 gm BID PRN PO CONSTIPATION; Start 06/06/18 at 14:00 Bisacodyl (Dulcolax Supp) 10 mg DAILY PRN [place] CONSTIPATION; Start 06/06/18 at 14:00 IV Flush (NS 10 ml) 10 ml PRN PRN IV IV PROTOCOL; Start 06/06/18 at 16:00 Nystatin (Nystatin Susp) 5 ml QID PO Last administered on 07/25/18at 12:35; Admin Dose 5 ML; Start 06/06/18 at 17:00 Ferrous Sulfate (Ferrous Sulfate (Ec)) 325 mg BID PO Last administered on 07/25/18 08:21; Admin Dose 325 MG; Start 07/09/18 at 09:30 Docusate Sodium (Colace) 100 mg DAILY PO Last administered on 07/25/18 08:23; Admin Dose 100 MG; Start 07/10/18 at 09:00 Acetaminophen (Tylenol Tab) 650 mg Q6H PRN PO MILD PAIN(1-3)OR ELEVATED TEMP Last administered on 07/14/18 21:04; Admin Dose 650 MG; Start 07/14/18 at 21:00 Bumetanide (Bumex) 1 mg DAILY PO Last administered on 07/25/18 08:21; Admin Dose 1 MG; Start 07/15/18 at 09:00 Amiodarone HCl (Cordarone) 200 mg DAILY PO Last administered on 07/25/18 08:22; Admin Dose 200 MG; Start 07/23/18 at 09:00 Warfarin Sodium (Coumadin) 5 mg DAILY@17 PO Last administered on 07/24/18 16:38; Admin Dose 5 MG; Start 07/24/18 at 17:00 CHRIS LAZAR Jul 25, 2018 14:12
--- NOTE | 2018-07-25 14:40 | PN ---
DATE: 07/24/2018 SUBJECTIVE: Denies any chest pain, no abdominal pain. Patient's urine is clear now. Patient did no t have any fever or chills. No bleeding from any site. NEUROLOGIC: The patient is awake, alert. VITAL SIGNS: Temperature 98.2, pulse 85, respiration 18, blood pressure 190/61, O2 saturation 98% on room air. HEENT: No eye discharge or redness. Conjunctivae normal. NECK: No mass. CHEST: Fairly clear. CARDIOVASCULAR: Irregularly irregular rhythm. Mechanical valve click present. ABDOMEN: Soft, nondistended, nontender. EXTREMITIES: No edema. NEUROLOGIC: Patient awake, alert with no gross focal deficit. LABORATORY DATA: On 07/24/2018 revealed INR of 1.8. IMPRESSION: 1. Bladder fistula. 2. Paroxysmal atrial fibrillation/atrial mechanical mitral valve replacement. 3. Hypothyroidism. PLAN: Coumadin will be resumed. The patient will be continued on Bumex, amiodarone and Synthroid. I spoke with patient's daughter and son-in-law and discussed about getting a second opinion from Dr. Hall from urology standpoint since Dr. Ashford does not perform laparoscopic repair of bladder fist miguel. Both of them refused did not want any second opinion and therefore the patient will be referred again to [facility] for higher level of care. Dictated By: JULY STUBBS/SAVANNAH Conf#: [id number] DID#: [id number] CC: CHRIS LAZAR MD;*EndCC*
--- NOTE | 2018-07-25 16:09 | CONS ---
Assessment/Plan Assessment/Plan Hospital Course (Demo Recall) # sepsis, cardiopulmonary - S/p severe sepsis due to UTI, resolved - S/p SIRS due to acute blood loss, resolved - S/p L heart catheterization on 05/27/2018 showing no significant obstructive CAD - CAD - S/p CABG in [facility] in 1982 - H/o MVR with mechanical valve, in 1999 - Hypertension - PAF - Asthma # urology/renal, GI - Recurrent UTI on 07/15/2018 due to Citrobacter Freundii, Enterococcus species, MDR Enterobacter; s/p Zosyn->ertapenem - Hematuria caused by ruptured urinary bladder (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 - US Abdomen 07/18/18 showed Complex fluid collection about the anterior superior bladder measuring up to 10.0 x 8.6 x 7.2 cm. Bladder wall thickening. - Mensah was exchanged on 07/12/2018 and 07/14/2018 because her older catheter was leaking - S/p UTI due to hafnai alvei and pediococci on 06/30/18. Pt completed pip/tazo (07/02/18-07/05/2018) for this episode - S/p UTI due to E. coli. 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 - will continue to follow closely with you Management discussed with Dr. Hughes Consultation Date/Type/Reason Admit Date/Time May 28, 2018 at 17:52 Initial Consult Date 06/02/18 Type of Consult Infectious Disease Requesting Provider: JULY VALENTIN MD Date/Time of Note DATE: 07/25/18 TIME: 16:09 24 HR Interval Summary Free Text/Dictation Pt's does not want pt to be disturbed as she is napping. Chart reviewed. Remains afebrile. CM's notes report that [facility] transfer center stated that this case was declined and new referral process needs to be reinitiated. Subjective hx not possible: pt non-verbal (sleeping) Exam/Review of Systems Exam Vitals Vital Signs Date Temp Pulse Resp B/P (MAP) Pulse Ox O2 O2 Flow FiO2 Time Delivery Rate 07/25/18 89 12:51 07/25/18 98.0 18 110/65 98 12:03 (80) 07/25/18 Room Air 04:00 Intake and Output 07/24/18 07/24/18 07/25/18 1515:00 23:00 07:00 IntakeIntake Total 750 ml 480 ml OutputOutput Total 2200 ml 700 ml BalanceBalance -1450 ml -220 ml Exam Did not examine pt per pt's spouse request Results Result Diagram: 07/22/18 0629 07/22/18 0629 Results 24hrs Laboratory Tests Test 07/25/18 05:35 Prothrombin Time 19.1 H Prothrombin Time Ratio 1.5 INR International Normalized Ratio 1.60 Medications Medication Current Medications Levothyroxine Sodium (Synthroid) 50 mcg BEFORE BREAKFAST PO Last administered on 07/25/18at 06:24; Admin Dose 50 MCG; Start 05/30/18 at 07:00 Mometasone Furoate (Asmanex) 1 puff DAILY INH Last administered on 07/25/18at 08:21; Admin Dose 1 PUFF; Start 05/29/18 at 11:00 Atorvastatin Calcium (Lipitor) 10 mg DAILY@21 PO Last administered on 07/24/18at 20:48; Admin Dose 10 MG; Start 05/29/18 at 21:00 Latanoprost (Xalatan) 1 drop HS BOTH EYES Last administered on 07/24/18 20:48; Admin Dose 1 DROP; Start 06/01/18 at 21:00 Amlodipine Besylate (Norvasc) 5 mg DAILY PO ; Start 06/03/18 at 09:00; Status Hold Pantoprazole (Protonix Tab) 40 mg DAILY@06 PO Last administered on 07/25/18 06:24; Admin Dose 40 MG; Start 06/05/18 at 06:00 Metoclopramide HCl (Reglan) 5 mg TID PRN IV Nausea; Start 06/06/18 at 11:00 Polyethylene Glycol (Miralax) 17 gm BID PRN PO CONSTIPATION; Start 06/06/18 at 14:00 Bisacodyl (Dulcolax Supp) 10 mg DAILY PRN [place] CONSTIPATION; Start 06/06/18 at 14:00 IV Flush (NS 10 ml) 10 ml PRN PRN IV IV PROTOCOL; Start 06/06/18 at 16:00 Nystatin (Nystatin Susp) 5 ml QID PO Last administered on 07/25/18 12:35; Admin Dose 5 ML; Start 06/06/18 at 17:00 Ferrous Sulfate (Ferrous Sulfate (Ec)) 325 mg BID PO Last administered on 07/25/18 08:21; Admin Dose 325 MG; Start 07/09/18 at 09:30 Docusate Sodium (Colace) 100 mg DAILY PO Last administered on 07/25/18 08:23; Admin Dose 100 MG; Start 07/10/18 at 09:00 Acetaminophen (Tylenol Tab) 650 mg Q6H PRN PO MILD PAIN(1-3)OR ELEVATED TEMP Last administered on 07/14/18 21:04; Admin Dose 650 MG; Start 07/14/18 at 21:00 Bumetanide (Bumex) 1 mg DAILY PO Last administered on 07/25/18 08:21; Admin Dose 1 MG; Start 07/15/18 at 09:00 Amiodarone HCl (Cordarone) 200 mg DAILY PO Last administered on 07/25/18 08:22; Admin Dose 200 MG; Start 07/23/18 at 09:00 Warfarin Sodium (Coumadin) 6 mg DAILY@17 PO ; Start 07/25/18 at 17:00 Metoprolol Tartrate (Lopressor) 12.5 mg BID PO ; Start 07/25/18 at 21:00 KISHORE JARAMILLO NP Jul 25, 2018 16:09
--- NOTE | 2018-07-25 16:28 | PN ---
Date/Time of Note Date/Time of Note DATE: 07/25/18 TIME: 16:25 Assessment/Plan VTE Prophylaxis Risk score (from Nsg)>0 risk: 2 SCD applied (from Nsg): Yes Pharmacological prophylaxis: warfarin tx Lines/Catheters IV Catheter Type (from Nrsg): PICC Line Central line still needed: Yes Urinary Cath still in place: Yes Reason Cath still needed: urinary retention, other (indicate) Assessment/Plan Hospital Course Patient is awake alert denies any pain denies shortness of breath, good urine output Via Mensah, no hematuria. Pending arrangement to transfer to [facility] for a laparoscopic bladder fistula closure. 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 Continue Mensah, monitor. Dr. Ashford is following in urology consultation. -Polymicrobial UTI, completed treatment with abx. Dr. Hughes is following in infection disease consultation. -Anemia of acute blood loss, transfuse PRN, monitor H&H. 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 -S/p Nose/oropharyngeal bleed on 06/11/2018, stopped after heparin was held. -Retroperitoneal bleed secondary to vascular injury status post stent placement. S/p CT guided placement of drainage catheter into pelvic hematoma on 06/05/18 and sequent removal. -Status post left heart catheterization with no significant obstructive coronary artery disease by Dr. Moreno on 05/27/2018. -Anemia of acute blood loss, status post blood transfusion, continue to monitor hemoglobin and hematocrit. -Urinary incontinence. -Acute illness myopathy -Status post mitral valve replacement with mechanical valve in 1999. Continue Coumadin, monitor PT/INR. -HTN, continue metoprolol -Hyperlipidemia -Hypothyroidism, continue levothyroxine -History of asthma Further recommendations based on clinical course. Plan of care discussed with Dr. Painter. Result Diagram: 07/22/18 0629 07/22/18 0629 Results 24hrs Laboratory Tests Test 07/25/18 05:35 Prothrombin Time 19.1 H Prothrombin Time Ratio 1.5 INR International Normalized Ratio 1.60 Exam/Review of Systems Exam Vitals Vital Signs Date Temp Pulse Resp B/P (MAP) Pulse Ox O2 O2 Flow FiO2 Time Delivery Rate 07/25/18 86 16:16 07/25/18 98.0 18 110/65 98 12:03 (80) 07/25/18 Room Air 04:00 Intake and Output 07/24/18 07/24/18 07/25/18 1515:00 23:00 07:00 IntakeIntake Total 750 ml 480 ml OutputOutput Total 2200 ml 700 ml BalanceBalance -1450 ml -220 ml Exam Constitutional: alert, oriented Respiratory: clear to auscultation Cardiovascular: irregular rhythm Gastrointestinal: soft, non-tender Genitourinary - Female: other (Mensah) Extremities: normal pulses Neurological: nl mental status Skin: nl turgor Results Results 24hrs Laboratory Tests Test 07/25/18 05:35 Prothrombin Time 19.1 H Prothrombin Time Ratio 1.5 INR International Normalized Ratio 1.60 Medications Medication Current Medications Levothyroxine Sodium (Synthroid) 50 mcg BEFORE BREAKFAST PO Last administered on 07/25/18at 06:24; Admin Dose 50 MCG; Start 05/30/18 at 07:00 Mometasone Furoate (Asmanex) 1 puff DAILY INH Last administered on 07/25/18at 08:21; Admin Dose 1 PUFF; Start 05/29/18 at 11:00 Atorvastatin Calcium (Lipitor) 10 mg DAILY@21 PO Last administered on 07/24/18at 20:48; Admin Dose 10 MG; Start 05/29/18 at 21:00 Latanoprost (Xalatan) 1 drop HS BOTH EYES Last administered on 07/24/18at 20:48; Admin Dose 1 DROP; Start 06/01/18 at 21:00 Amlodipine Besylate (Norvasc) 5 mg DAILY PO ; Start 06/03/18 at 09:00; Status Hold Pantoprazole (Protonix Tab) 40 mg DAILY@06 PO Last administered on 07/25/18at 06:24; Admin Dose 40 MG; Start 06/05/18 at 06:00 Metoclopramide HCl (Reglan) 5 mg TID PRN IV Nausea; Start 06/06/18 at 11:00 Polyethylene Glycol (Miralax) 17 gm BID PRN PO CONSTIPATION; Start 06/06/18 at 14:00 Bisacodyl (Dulcolax Supp) 10 mg DAILY PRN [place] CONSTIPATION; Start 06/06/18 at 14:00 IV Flush (NS 10 ml) 10 ml PRN PRN IV IV PROTOCOL; Start 06/06/18 at 16:00 Nystatin (Nystatin Susp) 5 ml QID PO Last administered on 07/25/18 12:35; Admin Dose 5 ML; Start 06/06/18 at 17:00 Ferrous Sulfate (Ferrous Sulfate (Ec)) 325 mg BID PO Last administered on 07/25/18 08:21; Admin Dose 325 MG; Start 07/09/18 at 09:30 Docusate Sodium (Colace) 100 mg DAILY PO Last administered on 07/25/18 08:23; Admin Dose 100 MG; Start 07/10/18 at 09:00 Acetaminophen (Tylenol Tab) 650 mg Q6H PRN PO MILD PAIN(1-3)OR ELEVATED TEMP Last administered on 07/14/18 21:04; Admin Dose 650 MG; Start 07/14/18 at 21:00 Bumetanide (Bumex) 1 mg DAILY PO Last administered on 07/25/18 08:21; Admin Dose 1 MG; Start 07/15/18 at 09:00 Amiodarone HCl (Cordarone) 200 mg DAILY PO Last administered on 07/25/18 08:22; Admin Dose 200 MG; Start 07/23/18 at 09:00 Warfarin Sodium (Coumadin) 6 mg DAILY@17 PO ; Start 07/25/18 at 17:00 Metoprolol Tartrate (Lopressor) 12.5 mg BID PO ; Start 07/25/18 at 21:00 KRISTY MCCULLOUGH Jul 25, 2018 16:28
[2018-07-25] MEDS ORDERED: WARFARIN 3 MG TAB PO SCH (17:00)
[2018-07-25] MEDS: LATANOPROST 0.005% 2.5 ML OPH BOTH EYES SCH (20:35)
[2018-07-25] MEDS: ATORVASTATIN 10 MG TAB PO SCH (20:35)
[2018-07-25] MEDS: METOPROLOL 25 MG TAB PO SCH (20:36)
[2018-07-26] VITALS (9 sets, daily range): BP systolic 111–139; BP diastolic 51–76; PULSE 60–96; RESP 18
[2018-07-26] MEDS: PANTOPRAZOLE (EC) 40 MG TAB PO SCH (06:04)
[2018-07-26] MEDS: LEVOTHYROXINE 50 MCG TAB PO SCH (06:04)
[2018-07-26] MEDS: NYSTATIN SUSP 5 ML CUP PO SCH ×4 (08:03→20:26)
[2018-07-26] MEDS: MOMETASONE 0.24 GM INHALER INH SCH (08:03)
[2018-07-26] MEDS: DOCUSATE SODIUM 100 MG CAP PO SCH (08:03)
[2018-07-26] MEDS: FERROUS SULFATE (EC) 325 MG TAB PO SCH ×2 (08:03→20:26)
[2018-07-26] MEDS: BUMETANIDE 1 MG TAB PO SCH (08:03)
[2018-07-26] MEDS: AMIODARONE 200 MG TAB PO SCH (08:04)
[2018-07-26] MEDS: METOPROLOL 25 MG TAB PO SCH ×2 (08:05→20:27)
--- NOTE | 2018-07-26 08:36 | CONS ---
Consult Date/Type/Reason Admit Date/Time May 28, 2018 at 17:52 Initial Consult Date Type of Consultation: Urology Requesting Provider: JULY VALENTIN MD Date/Time of Note DATE: 07/26/18 TIME: 08:34 Subjective NO acute events - pt doing better overall - in good fluid status - INR sub- therapeutic - dosing Coumadin with pharmacy ROS: No fever, no chills, no nausea, no vomiting, no diarrhea/constipation No recent weight changes No chest pain, no PND, no orthopnea - mild SOB No dizziness, blurred vision No thirst, no heat or cold intolerance Objective Vitals Vital Signs Date Temp Pulse Resp B/P (MAP) Pulse Ox O2 O2 Flow FiO2 Time Delivery Rate 07/26/18 98.1 96 18 111/51 94 07:25 (71) 07/26/18 Room Air 04:00 Intake and Output 07/25/18 07/25/18 07/26/18 1515:00 23:00 07:00 IntakeIntake Total 800 ml 120 ml OutputOutput Total 2300 ml 400 ml BalanceBalance -1500 ml -280 ml Exam General: WN/WD/NAD, AOx 3 HEENT: Unicetric/atraumatic/EOMI ( follow commands) NECK: JVD elevated, no thyromegaly Lymph: no lymphadenopathy HEART: regular with no S3, II/ systolic murmur at apex, mech click LUNGS: Coarse sounds ABD: soft, NT, ND, +BS : Intact Neuro: non focal SKIN: chronic changes EXT: trace edema Results/Medications Result Diagram: 07/22/1862807/22/18 06 Home Meds Reported Medications Albuterol Sulfate* (Ventolin HFA*) 18 Gm Hfa.aer.ad, 2 PUFF INHALATION Q4H, #1 INHALER 05/26/18 Ergocalciferol (Vitamin D2) (VITAMIN D2) 50,000 Unit Capsule, [address]506 UNIT PO [id number], CAP 05/23/18 Warfarin Sodium* (Coumadin*) 5 Mg Tablet, 5 MG PO Q TUES,THUR,SAT, TAB 05/23/18 Warfarin Sodium* (Coumadin*) 4 Mg Tablet, 4 MG PO Q MON,WED,FRI,SUN, TAB 05/23/18 Furosemide* (Furosemide*) 20 Mg Tablet, 20 MG PO DAILY, #60 TAB TAKE Q 2 DAYS 05/23/18 Simvastatin* (Zocor*) 20 Mg Tablet, 20 MG PO QHS, #30 TAB 05/23/18 Ranitidine Hcl* (Ranitidine Hcl*) 150 Mg Tablet, 150 MG PO HS, #30 TAB 05/23/18 Acetaminophen (Mapap) 500 Mg Capsule, 500 MG PO BID PRN for PAIN, CAP 05/23/18 Levothyroxine Sodium* (Levothyroxine Sodium*) 50 Mcg Tablet, 50 MCG PO BEFORE BREAKFAST, #30 TAB 05/23/18 Spironolactone* (Aldactone*) 25 Mg Tablet, 25 MG PO DAILY, #30 TAB 05/23/18 Beclomethasone Dipropionate (Qvar Redihaler (40 MCG)) 10.6 Gm Hfa.aeroba, 10.6 GM IH DAILY, INH 05/23/18 Amlodipine Besylate* (Norvasc*) 5 Mg Tablet, 5 MG PO BID, TAB 05/23/18 Losartan-Hydrochlorothiazide (Losartan-HCTZ) 100-25 Mg Tab, 1 TAB PO DAILY, TAB 05/23/18 Medications Current Medications Levothyroxine Sodium (Synthroid) 50 mcg BEFORE BREAKFAST PO Last administered on 07/26/18at 06:04; Admin Dose 50 MCG; Start 05/30/18 at 07:00 Mometasone Furoate (Asmanex) 1 puff DAILY INH Last administered on 07/26/18at 08:03; Admin Dose 1 PUFF; Start 05/29/18 at 11:00 Atorvastatin Calcium (Lipitor) 10 mg DAILY@21 PO Last administered on 07/25/18at 20:35; Admin Dose 10 MG; Start 05/29/18 at 21:00 Latanoprost (Xalatan) 1 drop HS BOTH EYES Last administered on 07/25/18at 20:35; Admin Dose 1 DROP; Start 06/01/18 at 21:00 Amlodipine Besylate (Norvasc) 5 mg DAILY PO ; Start 06/03/18 at 09:00; Status Hold Pantoprazole (Protonix Tab) 40 mg DAILY@06 PO Last administered on 07/26/18at 06:04; Admin Dose 40 MG; Start 06/05/18 at 06:00 Metoclopramide HCl (Reglan) 5 mg TID PRN IV Nausea; Start 06/06/18 at 11:00 Polyethylene Glycol (Miralax) 17 gm BID PRN PO CONSTIPATION; Start 06/06/18 at 14:00 Bisacodyl (Dulcolax Supp) 10 mg DAILY PRN [place] CONSTIPATION; Start 06/06/18 at 14:00 IV Flush (NS 10 ml) 10 ml PRN PRN IV IV PROTOCOL; Start 06/06/18 at 16:00 Nystatin (Nystatin Susp) 5 ml QID PO Last administered on 07/26/18 08:03; Admin Dose 5 ML; Start 06/06/18 at 17:00 Ferrous Sulfate (Ferrous Sulfate (Ec)) 325 mg BID PO Last administered on 07/26/18 08:03; Admin Dose 325 MG; Start 07/09/18 at 09:30 Docusate Sodium (Colace) 100 mg DAILY PO Last administered on 07/26/18 08:03; Admin Dose 100 MG; Start 07/10/18 at 09:00 Acetaminophen (Tylenol Tab) 650 mg Q6H PRN PO MILD PAIN(1-3)OR ELEVATED TEMP Last administered on 07/14/18 21:04; Admin Dose 650 MG; Start 07/14/18 at 21:00 Bumetanide (Bumex) 1 mg DAILY PO Last administered on 07/26/18 08:03; Admin Dose 1 MG; Start 07/15/18 at 09:00 Amiodarone HCl (Cordarone) 200 mg DAILY PO Last administered on 07/26/18 08:04; Admin Dose 200 MG; Start 07/23/18 at 09:00 Warfarin Sodium (Coumadin) 6 mg DAILY@17 PO Last administered on 07/25/18 17:26; Admin Dose 6 MG; Start 07/25/18 at 17:00 Metoprolol Tartrate (Lopressor) 12.5 mg BID PO Last administered on 07/26/18 08:05; Admin Dose 12.5 MG; Start 07/25/18 at 21:00 Assessment/Plan Hospital Course (Demo Recall) 1.cad s/p C with no sig obstructive cad - on med rx now - treated - no CP now - stable - on meds - treated. Stable. Ambulatory now. 2.HTN - treated - well Rx - well controlled - controlled - well maintained. 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 STILL with hematuria - urology follows. Still heaturia - con't to monitor - H/H trending down - might need blood Rx. - H/H stable now. 4.HL 5.MVR-mechanical - stable by exam - soft click by exam - stable Stable by exam.Soft click. Stable by exam. Con't to follow. INR sub-therapeutic - con't dosing. 6.anemia- s/p repair of R PROTECTION ENGINEER/illiac. Now stabilizing - still with hematuria, a little better H/H at 9.3. 7.Hypothyroid 8. FOURNIER-negative Head CT 9. Fevers-with positive ua - now resolved. RESOLVED. 10. Hematuria - urology follows - might need transfer to [facility] care - no hematuria now. CECILIA MOCTEZUMA MD Jul 26, 2018 08:36
--- NOTE | 2018-07-26 11:48 | CONS ---
Assessment/Plan Assessment/Plan Hospital Course (Demo Recall) # sepsis, cardiopulmonary - S/p severe sepsis due to UTI, resolved - S/p SIRS due to acute blood loss, resolved - S/p L heart catheterization on 05/27/2018 showing no significant obstructive CAD - CAD - S/p CABG in [facility] in 1982 - H/o MVR with mechanical valve, in 1999 - Hypertension - PAF - Asthma # urology/renal, GI - Recurrent UTI on 07/15/2018 due to Citrobacter Freundii, Enterococcus species, MDR Enterobacter; s/p Zosyn->ertapenem - Hematuria caused by ruptured urinary bladder (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 - US Abdomen 07/18/18 showed Complex fluid collection about the anterior superior bladder measuring up to 10.0 x 8.6 x 7.2 cm. Bladder wall thickening. - Mensah was exchanged on 07/12/2018 and 07/14/2018 because her older catheter was leaking - S/p UTI due to hafnai alvei and pediococci on 06/30/18. Pt completed pip/tazo (07/02/18-07/05/2018) for this episode - S/p UTI due to E. coli. 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 - will continue to follow closely with you Consultation Date/Type/Reason Admit Date/Time May 28, 2018 at 17:52 Initial Consult Date 06/03/18 Type of Consult ID Requesting Provider: JULY VALENTIN MD Date/Time of Note DATE: 07/26/18 TIME: 11:47 24 HR Interval Summary Free Text/Dictation no new complaints today Exam/Review of Systems Exam Vitals Vital Signs Date Temp Pulse Resp B/P (MAP) Pulse Ox O2 O2 Flow FiO2 Time Delivery Rate 07/26/18 98.0 66 18 112/58 94 11:20 (76) 07/26/18 Room Air 04:00 Intake and Output 07/25/18 07/25/18 07/26/18 1515:00 23:00 07:00 IntakeIntake Total 800 ml 120 ml OutputOutput Total 2300 ml 400 ml BalanceBalance -1500 ml -280 ml Constitutional: alert, oriented, well developed Psych: no complaints, nl mood/affect Head: normocephalic, atraumatic Eyes: nl conjunctiva, EOMI, nl lids, nl sclera, PERRL Neck: supple, non-tender Respiratory: clear to auscultation, normal air movement Cardiovascular: regular rate and rhythm, nl pulses Gastrointestinal: soft, nl liver, spleen, non-tender Neurological: TAPE RECORDER MECHANIC II-XII intact, nl mental status, nl speech, nl strength Results Result Diagram: 07/22/18 0629 07/26/18 0658 Results 24hrs Laboratory Tests Test 07/26/18 06:58 Sodium Level 136 Potassium Level 3.2 L Chloride Level 97 Carbon Dioxide Level 31 Anion Gap 8 Blood Urea Nitrogen 21 H Creatinine 0.69 Est Glomerular Filtrat Rate mL/min > 60 Glucose Level 110 Calcium Level 9.2 Phosphorus Level 4.0 Magnesium Level 1.9 Medications Medication Current Medications Levothyroxine Sodium (Synthroid) 50 mcg BEFORE BREAKFAST PO Last administered on 07/26/18at 06:04; Admin Dose 50 MCG; Start 05/30/18 at 07:00 Mometasone Furoate (Asmanex) 1 puff DAILY INH Last administered on 07/26/18 08:03; Admin Dose 1 PUFF; Start 05/29/18 at 11:00 Atorvastatin Calcium (Lipitor) 10 mg DAILY@21 PO Last administered on 07/25/18 20:35; Admin Dose 10 MG; Start 05/29/18 at 21:00 Latanoprost (Xalatan) 1 drop HS BOTH EYES Last administered on 07/25/18 20:35; Admin Dose 1 DROP; Start 06/01/18 at 21:00 Amlodipine Besylate (Norvasc) 5 mg DAILY PO ; Start 06/03/18 at 09:00; Status Hold Pantoprazole (Protonix Tab) 40 mg DAILY@06 PO Last administered on 07/26/18 06:04; Admin Dose 40 MG; Start 06/05/18 at 06:00 Metoclopramide HCl (Reglan) 5 mg TID PRN IV Nausea; Start 06/06/18 at 11:00 Polyethylene Glycol (Miralax) 17 gm BID PRN PO CONSTIPATION; Start 06/06/18 at 14:00 Bisacodyl (Dulcolax Supp) 10 mg DAILY PRN [place] CONSTIPATION; Start 06/06/18 at 14:00 IV Flush (NS 10 ml) 10 ml PRN PRN IV IV PROTOCOL; Start 06/06/18 at 16:00 Nystatin (Nystatin Susp) 5 ml QID PO Last administered on 07/26/18 08:03; Admin Dose 5 ML; Start 06/06/18 at 17:00 Ferrous Sulfate (Ferrous Sulfate (Ec)) 325 mg BID PO Last administered on 07/26/18 08:03; Admin Dose 325 MG; Start 07/09/18 at 09:30 Docusate Sodium (Colace) 100 mg DAILY PO Last administered on 07/26/18 08:03; Admin Dose 100 MG; Start 07/10/18 at 09:00 Acetaminophen (Tylenol Tab) 650 mg Q6H PRN PO MILD PAIN(1-3)OR ELEVATED TEMP Last administered on 07/14/18 21:04; Admin Dose 650 MG; Start 07/14/18 at 21:00 Bumetanide (Bumex) 1 mg DAILY PO Last administered on 07/26/18 08:03; Admin Dose 1 MG; Start 07/15/18 at 09:00 Amiodarone HCl (Cordarone) 200 mg DAILY PO Last administered on 07/26/18at 08:04; Admin Dose 200 MG; Start 07/23/18 at 09:00 Warfarin Sodium (Coumadin) 6 mg DAILY@17 PO Last administered on 07/25/18at 1 7:26; Admin Dose 6 MG; Start 07/25/18 at 17:00 Metoprolol Tartrate (Lopressor) 12.5 mg BID PO Last administered on 07/26/18at 08:05; Admin Dose 12.5 MG; Start 07/25/18 at 21:00 MARSHA IYER MD Jul 26, 2018 11:48
--- NOTE | 2018-07-26 14:34 | PN ---
DATE: 07/26/2018 SUBJECTIVE: The patient is stable. No events overnight. No fever, chills, nausea, vomiting. OBJECTIVE: VITAL SIGNS: Blood pressure is 111/51, respiration 19, pulse 96, temperature 98.1. HEENT: Head is normocephalic. NECK: Supple. HEART: Regular rate. LUNGS: Show diminished breath sounds at the base. ABDOMEN: Soft, nontender to palpation without rebound or guarding. EXTREMITIES: Negative for clubbing, cyanosis. No edema. DERMATOLOGIC: No rashes. MUSCULOSKELETAL: No joint effusion. NEUROLOGIC: No change in exam. MEDICATIONS: Have been reviewed. LABORATORY DATA: Have been reviewed. ASSESSMENT AND PLAN: 1. Nonoliguric acute kidney injury with previously normal baseline creatinine. Etiology of acute ki dney injury is secondary to acute tubular necrosis. Renal function is improved. Continue current tr eatment plan. Continue to monitor. 2. Hematuria. 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 The patient's hematuria is resolved. Continue to monitor. Follow up with urology. 3. Volume overload. Continue to monitor. Continue low-dose diuretic therapy. 4. Hypokalemia. Continue to monitor and currently improved. 5. Anemia. Monitor hemoglobin and hematocrit levels. 6. Mechanical heart valve. Continue anticoagulation per cardiology. 7. Sepsis secondary to urinary tract infection. The patient is completing antibiotic course. 8. Hypothyroidism. Continue Synthroid. 9. Dyslipidemia. Continue statin therapy. 10. Hypertension. Continue current blood pressure regimen. 11. Liver cirrhosis. Continue medical management. 12. Status post urinary tract infection. Dictated By: GWYN FABIAN DO NR/NTS Conf#: [id number] DID#: [id number] CC: JOAQUIN DE LEON MD; JULY VALENTIN MD; CHRIS LAZAR MD;*EndCC*
--- NOTE | 2018-07-26 16:57 | PN ---
Date/Time of Note Date/Time of Note DATE: 07/26/18 TIME: 16:55 Assessment/Plan VTE Prophylaxis Risk score (from Nsg)>0 risk: 2 SCD applied (from Nsg): Yes Pharmacological prophylaxis: warfarin tx Lines/Catheters IV Catheter Type (from Nrsg): PICC Line Central line still needed: Yes Urinary Cath still in place: Yes Reason Cath still needed: urinary retention Assessment/Plan Hospital Course No acute events overnight, patient is stable, no hematuria. Potassium replaced for K of 3.2. Patient is on Bumex will add Klor-Con daily. Pending arrangement to transfer to [facility] [place] for a laparoscopic bladder fistula closure. 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 Continue Mensah, monitor. Dr. Ashford is following in urology consultation. -Polymicrobial UTI, completed treatment with abx. Dr. Hughes is following in infection disease consultation. -Anemia of acute blood loss, transfuse PRN, monitor H&H. 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 -S/p Nose/oropharyngeal bleed on 06/11/2018, stopped after heparin was held. -Retroperitoneal bleed secondary to vascular injury status post stent placement. S/p CT guided placement of drainage catheter into pelvic hematoma on 06/05/18 and sequent removal. -Status post left heart catheterization with no significant obstructive coronary artery disease by Dr. Moreno on 05/27/2018. -Anemia of acute blood loss, status post blood transfusion, continue to monitor hemoglobin and hematocrit. -Urinary incontinence. -Acute illness myopathy -Status post mitral valve replacement with mechanical valve in 1999. Continue Coumadin, monitor PT/INR. -HTN, continue metoprolol -Hyperlipidemia -Hypothyroidism, continue levothyroxine -History of asthma Further recommendations based on clinical course. Plan of care discussed with Dr. Painter. Result Diagram: 07/22/18 0629 07/26/18 0658 Results 24hrs Laboratory Tests Test 07/26/18 06:58 Sodium Level 136 Potassium Level 3.2 L Chloride Level 97 Carbon Dioxide Level 31 Anion Gap 8 Blood Urea Nitrogen 21 H Creatinine 0.69 Est Glomerular Filtrat Rate mL/min > 60 Glucose Level 110 Calcium Level 9.2 Phosphorus Level 4.0 Magnesium Level 1.9 Exam/Review of Systems Exam Vitals Vital Signs Date Temp Pulse Resp B/P (MAP) Pulse Ox O2 O2 Flow FiO2 Time Delivery Rate 07/26/18 60 16:42 07/26/18 98.1 18 116/58 95 15:57 (77) 07/26/18 Room Air 04:00 Intake and Output 07/25/18 07/25/18 07/26/18 1515:00 23:00 07:00 IntakeIntake Total 800 ml 120 ml OutputOutput Total 2300 ml 400 ml BalanceBalance -1500 ml -280 ml Exam Constitutional: alert, oriented Respiratory: clear to auscultation Cardiovascular: irregular rhythm Gastrointestinal: soft, non-tender Genitourinary - Female: other ([place]) Extremities: normal pulses Neurological: nl mental status Skin: nl turgor Results Results 24hrs Laboratory Tests Test 07/26/18 06:58 Sodium Level 136 Potassium Level 3.2 L Chloride Level 97 Carbon Dioxide Level 31 Anion Gap 8 Blood Urea Nitrogen 21 H Creatinine 0.69 Est Glomerular Filtrat Rate mL/min > 60 Glucose Level 110 Calcium Level 9.2 Phosphorus Level 4.0 Magnesium Level 1.9 Medications Medication Current Medications Levothyroxine Sodium (Synthroid) 50 mcg BEFORE BREAKFAST PO Last administered on 07/26/18at 06:04; Admin Dose 50 MCG; Start 05/30/18 at 07:00 Mometasone Furoate (Asmanex) 1 puff DAILY INH Last administered on 07/26/18at 08:03; Admin Dose 1 PUFF; Start 05/29/18 at 11:00 Atorvastatin Calcium (Lipitor) 10 mg DAILY@21 PO Last administered on 07/25/18at 20:35; Admin Dose 10 MG; Start 05/29/18 at 21:00 Latanoprost (Xalatan) 1 drop HS BOTH EYES Last administered on 07/25/18at 20:35; Admin Dose 1 DROP; Start 06/01/18 at 21:00 Amlodipine Besylate (Norvasc) 5 mg DAILY PO ; Start 06/03/18 at 09:00; Status Hold Pantoprazole (Protonix Tab) 40 mg DAILY@06 PO Last administered on 07/26/18at 06:04; Admin Dose 40 MG; Start 06/05/18 at 06:00 Metoclopramide HCl (Reglan) 5 mg TID PRN IV Nausea; Start 2/25/19 at 11:00 Polyethylene Glycol (Miralax) 17 gm BID PRN PO CONSTIPATION; Start 06/06/18 at 14:00 Bisacodyl (Dulcolax Supp) 10 mg DAILY PRN [place] CONSTIPATION; Start 06/06/18 at 14:00 IV Flush (NS 10 ml) 10 ml PRN PRN IV IV PROTOCOL; Start 06/06/18 at 16:00 Nystatin (Nystatin Susp) 5 ml QID PO Last administered on 07/26/18 16:53; Admin Dose 5 ML; Start 06/06/18 at 17:00 Ferrous Sulfate (Ferrous Sulfate (Ec)) 325 mg BID PO Last administered on 07/26/18 08:03; Admin Dose 325 MG; Start 07/09/18 at 09:30 Docusate Sodium (Colace) 100 mg DAILY PO Last administered on 07/26/18 08:03; Admin Dose 100 MG; Start 07/10/18 at 09:00 Acetaminophen (Tylenol Tab) 650 mg Q6H PRN PO MILD PAIN(1-3)OR ELEVATED TEMP Last administered on 07/14/18 21:04; Admin Dose 650 MG; Start 07/14/18 at 21:00 Bumetanide (Bumex) 1 mg DAILY PO Last administered on 07/26/18 08:03; Admin Dose 1 MG; Start 07/15/18 at 09:00 Amiodarone HCl (Cordarone) 200 mg DAILY PO Last administered on 07/26/18 08:04; Admin Dose 200 MG; Start 07/23/18 at 09:00 Metoprolol Tartrate (Lopressor) 12.5 mg BID PO Last administered on 07/26/18 08:05; Admin Dose 12.5 MG; Start 07/25/18 at 21:00 Warfarin Sodium (Coumadin) 7 mg DAILY@17 PO Last administered on 07/26/18 16:53; Admin Dose 7 MG; Start 07/26/18 at 17:00 KRISTY MCCULLOUGH Jul 26, 2018 16:57
[2018-07-26] MEDS ORDERED: POTASSIUM CHLORIDE 20 MEQ POWDER FOR ORAL SOLN PO ONE (17:00)
[2018-07-26] MEDS ORDERED: WARFARIN 3 MG TAB PO SCH (17:00)
[2018-07-26] MEDS: LATANOPROST 0.005% 2.5 ML OPH BOTH EYES SCH (20:26)
[2018-07-26] MEDS: ATORVASTATIN 10 MG TAB PO SCH (20:26)
[2018-07-27] VITALS (11 sets, daily range): BP systolic 107–122; BP diastolic 52–62; PULSE 61–103; RESP 18–19
[2018-07-27] MEDS: PANTOPRAZOLE (EC) 40 MG TAB PO SCH (05:25)
[2018-07-27] MEDS: LEVOTHYROXINE 50 MCG TAB PO SCH (06:14)
[2018-07-27] MEDS ORDERED: POTASSIUM CHLORIDE (SR) 10 MEQ TAB PO SCH (09:00)
[2018-07-27] MEDS: NYSTATIN SUSP 5 ML CUP PO SCH ×4 (09:11→20:27)
[2018-07-27] MEDS: MOMETASONE 0.24 GM INHALER INH SCH (09:11)
[2018-07-27] MEDS: POTASSIUM CHLORIDE (SR) 10 MEQ TAB PO SCH (09:12)
[2018-07-27] MEDS: BUMETANIDE 1 MG TAB PO SCH (09:12)
[2018-07-27] MEDS: DOCUSATE SODIUM 100 MG CAP PO SCH (09:12)
[2018-07-27] MEDS: METOPROLOL 25 MG TAB PO SCH ×2 (09:13→20:27)
[2018-07-27] MEDS: AMIODARONE 200 MG TAB PO SCH (09:13)
[2018-07-27] MEDS: FERROUS SULFATE (EC) 325 MG TAB PO SCH ×2 (09:13→20:28)
--- NOTE | 2018-07-27 09:44 | CONS ---
Assessment/Plan Assessment/Plan Hospital Course (Demo Recall) # sepsis, cardiopulmonary - S/p severe sepsis due to UTI, resolved - S/p SIRS due to acute blood loss, resolved - S/p L heart catheterization on 05/27/2018 showing no significant obstructive CAD - CAD - S/p CABG in [facility] in 1982 - H/o MVR with mechanical valve, in 1999 - Hypertension - PAF - Asthma # urology/renal, GI - Recurrent UTI on 07/15/2018 due to Citrobacter Freundii, Enterococcus species, MDR Enterobacter; s/p Zosyn->ertapenem - Hematuria caused by ruptured urinary bladder (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 - US Abdomen 07/18/18 showed Complex fluid collection about the anterior superior bladder measuring up to 10.0 x 8.6 x 7.2 cm. Bladder wall thickening. - Mensah was exchanged on 07/12/2018 and 07/14/2018 because her older catheter was leaking - S/p UTI due to hafnai alvei and pediococci on 06/30/18. Pt completed pip/tazo (07/02/18-07/05/2018) for this episode - S/p UTI due to E. coli. 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 - will continue to follow closely with you Plan was d/w patient, her , and with Dr. Hughes. Thank you Consultation Date/Type/Reason Admit Date/Time May 28, 2018 at 17:52 Initial Consult Date 06/03/18 Type of Consult ID Requesting Provider: JULY VALENTIN MD Date/Time of Note DATE: 07/27/18 TIME: 09:43 24 HR Interval Summary Free Text/Dictation Per d/w patient and her , they are still awaiting word on a transfer to another facility for laparoscopic surgery. A 10pt ROS was reviewed with patient and negative. States she has been ambulating in am, now back in bed. No acute issues reported by nursing. Remains afebrile. Exam/Review of Systems Exam Vitals Vital Signs Date Temp Pulse Resp B/P (MAP) Pulse Ox O2 O2 Flow FiO2 Time Delivery Rate 07/27/18 92 08:14 07/27/18 98.0 19 112/57 95 07:13 (75) 07/27/18 Room Air 04:18 Intake and Output 07/26/18 07/26/18 07/27/18 1515:00 23:00 07:00 IntakeIntake Total 1000 ml 400 ml OutputOutput Total 1100 ml 700 ml BalanceBalance -100 ml -300 ml Allergies Coded Allergies No Known Allergy (Unverified07/17/18) Constitutional: alert, oriented, well developed, other (sitting up in bed smiling.) Psych: no complaints, nl mood/affect Head: normocephalic, atraumatic Eyes: nl conjunctiva, nl lids, nl sclera ENMT: nl external ears & nose, nl nasal mucosa & septum, mucosa pink and moist (no thrush) Neck: supple, non-tender Respiratory: clear to auscultation, normal air movement; No labored breathing, No wheezing Cardiovascular: regular rate and rhythm, nl pulses Gastrointestinal: soft, non-tender, bowel sounds (normoactive); No distended, No tender Genitourinary - Female: other (F/c draining yellow hazy urine.) Musculoskeletal: nl extremities to inspection Extremities: normal pulses; No edema Neurological: [employer] II-X[employer] intact, nl mental status, nl speech, nl strength Skin: nl turgor; No rash or lesions Results Result Diagram: 07/26/18 0658 Results 24hrs Laboratory Tests Test 07/27/18 05:55 Prothrombin Time 25.4 #H Prothrombin Time Ratio 2.0 INR International Normalized Ratio 2.30 Medications Medication Current Medications Levothyroxine Sodium (Synthroid) 50 mcg BEFORE BREAKFAST PO Last administered on 07/27/18 06:14; Admin Dose 50 MCG; Start 05/30/18 at 07:00 Mometasone Furoate (Asmanex) 1 puff DAILY INH Last administered on 07/27/18 09:11; Admin Dose 1 PUFF; Start 05/29/18 at 11:00 Atorvastatin Calcium (Lipitor) 10 mg DAILY@21 PO Last administered on 07/26/18 20:26; Admin Dose 10 MG; Start 05/29/18 at 21:00 Latanoprost (Xalatan) 1 drop HS BOTH EYES Last administered on 07/26/18 20:26; Admin Dose 1 DROP; Start 06/01/18 at 21:00 Amlodipine Besylate (Norvasc) 5 mg DAILY PO ; Start 06/03/18 at 09:00; Status Hold Pantoprazole (Protonix Tab) 40 mg DAILY@06 PO Last administered on 07/27/18 05:25; Admin Dose 40 MG; Start 06/05/18 at 06:00 Metoclopramide HCl (Reglan) 5 mg TID PRN IV Nausea; Start 06/06/18 at 11:00 Polyethylene Glycol (Miralax) 17 gm BID PRN PO CONSTIPATION; Start 06/06/18 at 14:00 Bisacodyl (Dulcolax Supp) 10 mg DAILY PRN [place] CONSTIPATION; Start 06/06/18 at 14:00 IV Flush (NS 10 ml) 10 ml PRN PRN IV IV PROTOCOL; Start 06/06/18 at 16:00 Nystatin (Nystatin Susp) 5 ml QID PO Last administered on 07/27/18 09:11; Admin Dose 5 ML; Start 06/06/18 at 17:00 Ferrous Sulfate (Ferrous Sulfate (Ec)) 325 mg BID PO Last administered on 07/27/18 09:13; Admin Dose 325 MG; Start 07/09/18 at 09:30 Docusate Sodium (Colace) 100 mg DAILY PO Last administered on 07/27/18 09:12; Admin Dose 100 MG; Start 07/10/18 at 09:00 Acetaminophen (Tylenol Tab) 650 mg Q6H PRN PO MILD PAIN(1-3)OR ELEVATED TEMP Last administered on 07/14/18 21:04; Admin Dose 650 MG; Start 07/14/18 at 21:00 Bumetanide (Bumex) 1 mg DAILY PO Last administered on 07/27/18 09:12; Admin D ose 1 MG; Start 07/15/18 at 09:00 Amiodarone HCl (Cordarone) 200 mg DAILY PO Last administered on 07/27/18 09:13; Admin Dose 200 MG; Start 07/23/18 at 09:00 Metoprolol Tartrate (Lopressor) 12.5 mg BID PO Last administered on 07/27/18 09:13; Admin Dose 12.5 MG; Start 07/25/18 at 21:00 Warfarin Sodium (Coumadin) 7 mg DAILY@17 PO Last administered on 07/26/18 16:53; Admin Dose 7 MG; Start 07/26/18 at 17:00 Potassium Chloride (Klor-Con 10) 20 meq DAILY PO Last administered on 07/27/18 09:12; Admin Dose 20 MEQ; Start 07/27/18 at 09:00 WILIAM HUI NP Jul 27, 2018 09:44
--- NOTE | 2018-07-27 09:52 | PN ---
DATE: 07/27/2018 SUBJECTIVE: The patient is stable, no events overnight. No fevers, chills, nausea, or vomiting. OBJECTIVE: VITAL SIGNS: Blood pressure is 112/57, pulse 92, temperature 98.0, respirations 19. HEENT: Head is normocephalic. NECK: Supple. HEART: Regular rate. LUNGS: Show diminished breath sounds at the base. ABDOMEN: Soft, nontender to palpation without rebound or guarding. EXTREMITIES: Negative for clubbing, cyanosis. Trace edema. DERMATOLOGIC: No rashes. MUSCULOSKELETAL: No joint effusion. NEUROLOGIC: No change in exam. MEDICATIONS: The patient's medications have been reviewed. LABORATORY DATA: Reviewed. ASSESSMENT AND PLAN: 1. Nonoliguric acute kidney injury with previously normal baseline creatinine. Etiology of acute ki dney injury is secondary to acute tubular necrosis. Renal function is improved. Continue current tr eatment plan, supportive care, renally dose all medicines. 2. Hematuria. 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 Resolved. Continue to monitor. 3. Volume overload, improved. Continue low-dose diuretic therapy. 4. Hypokalemia. Continue to monitor and replete as needed. 5. Anemia. Monitor hemoglobin and hematocrit levels. 6. Mechanical heart valve. Continue anticoagulation per cardiology. 7. Sepsis secondary to urinary tract infection. The patient is completing antibiotic course. 8. Hypothyroidism. Continue Synthroid. 9. Dyslipidemia. Continue statin therapy. 10. Hypertension. Continue current blood pressure regimen. 11. Liver cirrhosis. Continue medical management. 12. Status post urinary tract infection. Dictated By: GWYN FABIAN DO NR/NTS Conf#: [id number] DID#: [id number] CC: CHRIS LAZAR MD; JOAQUIN DE LEON MD; JULY VALENTIN MD;*EndCC*
--- NOTE | 2018-07-27 13:14 | PN ---
Date/Time of Note Date/Time of Note DATE: 07/27/18 TIME: 13:11 Assessment/Plan VTE Prophylaxis Risk score (from Nsg)>0 risk: 4 SCD applied (from Nsg): Yes Pharmacological prophylaxis: warfarin tx Lines/Catheters IV Catheter Type (from Nrsg): PICC Line Central line still needed: Yes Urinary Cath still in place: Yes Reason Cath still needed: urinary retention Assessment/Plan Hospital Course Patient remains hemodynamically stable, afebrile, no hematuria. INR is 2.3 continue Coumadin dosing per cardiology. Pending arrangement to transfer to [facility] [place] for a laparoscopic bladder fistula closure. 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 Continue Mensah, monitor. Dr. Ashford is following in urology consultation. -Polymicrobial UTI, completed treatment with abx. Dr. Hughes is following in infection disease consultation. -Anemia of acute blood loss, transfuse PRN, monitor H&H. 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 -S/p Nose/oropharyngeal bleed on 06/11/2018, stopped after heparin was held. -Retroperitoneal bleed secondary to vascular injury status post stent placement. S/p CT guided placement of drainage catheter into pelvic hematoma on 06/05/18 and sequent removal. -Status post left heart catheterization with no significant obstructive coronary artery disease by Dr. Moreno on 05/27/2018. -Anemia of acute blood loss, status post blood transfusion, continue to monitor hemoglobin and hematocrit. -Urinary incontinence. -Acute illness myopathy -Status post mitral valve replacement with mechanical valve in 1999. Continue Coumadin, monitor PT/INR. -HTN, continue metoprolol -Hyperlipidemia -Hypothyroidism, continue levothyroxine -History of asthma Further recommendations based on clinical course. Plan of care discussed with Dr. Painter. Result Diagram: 07/26/18 0658 Results 24hrs Laboratory Tests Test 07/27/18 05:55 Prothrombin Time 25.4 #H Prothrombin Time Ratio 2.0 INR International Normalized Ratio 2.30 Exam/Review of Systems Exam Vitals Vital Signs Date Temp Pulse Resp B/P (MAP) Pulse Ox O2 O2 Flow FiO2 Time Delivery Rate 07/27/18 97.7 82 19 122/57 96 11:37 (78) 07/27/18 Room Air 04:18 Intake and Output 07/26/18 07/26/18 07/27/18 1515:00 23:00 07:00 IntakeIntake Total 1000 ml 400 ml OutputOutput Total 1100 ml 700 ml BalanceBalance -100 ml -300 ml Exam Constitutional: alert, oriented Respiratory: clear to auscultation Cardiovascular: irregular rhythm Gastrointestinal: soft, non-tender Genitourinary - Female: other ([place]) Extremities: normal pulses Neurological: nl mental status Skin: nl turgor Results Results 24hrs Laboratory Tests Test 07/27/18 05:55 Prothrombin Time 25.4 #H Prothrombin Time Ratio 2.0 INR International Normalized Ratio 2.30 Medications Medication Current Medications Levothyroxine Sodium (Synthroid) 50 mcg BEFORE BREAKFAST PO Last administered on 07/27/18at 06:14; Admin Dose 50 MCG; Start 05/30/18 at 07:00 Mometasone Furoate (Asmanex) 1 puff DAILY INH Last administered on 07/27/18at 09:11; Admin Dose 1 PUFF; Start 05/29/18 at 11:00 Atorvastatin Calcium (Lipitor) 10 mg DAILY@21 PO Last administered on 07/26/18at 20:26; Admin Dose 10 MG; Start 05/29/18 at 21:00 Latanoprost (Xalatan) 1 drop HS BOTH EYES Last administered on 07/26/18at 20:26; Admin Dose 1 DROP; Start 06/01/18 at 21:00 Amlodipine Besylate (Norvasc) 5 mg DAILY PO ; Start 06/03/18 at 09:00; Status Hold Pantoprazole (Protonix Tab) 40 mg DAILY@06 PO Last administered on 07/27/18at 05:25; Admin Dose 40 MG; Start 06/05/18 at 06:00 Metoclopramide HCl (Reglan) 5 mg TID PRN IV Nausea; Start 06/06/18 at 11:00 Polyethylene Glycol (Miralax) 17 gm BID PRN PO CONSTIPATION; Start 06/06/18 at 14:00 Bisacodyl (Dulcolax Supp) 10 mg DAILY PRN [place] CONSTIPATION; Start 06/06/18 at 14:00 IV Flush (NS 10 ml) 10 ml PRN PRN IV IV PROTOCOL; Start 06/06/18 at 16:00 Nystatin (Nystatin Susp) 5 ml QID PO Last administered on 07/27/18 12:47; Admin Dose 5 ML; Start 06/06/18 at 17:00 Ferrous Sulfate (Ferrous Sulfate (Ec)) 325 mg BID PO Last administered on 07/27/18 09:13; Admin Dose 325 MG; Start 07/09/18 at 09:30 Docusate Sodium (Colace) 100 mg DAILY PO Last administered on 07/27/18 09:12; Admin Dose 100 MG; Start 07/10/18 at 09:00 Acetaminophen (Tylenol Tab) 650 mg Q6H PRN PO MILD PAIN(1-3)OR ELEVATED TEMP Last administered on 07/14/18 21:04; Admin Dose 650 MG; Start 07/14/18 at 21:00 Bumetanide (Bumex) 1 mg DAILY PO Last administered on 07/27/18 09:12; Admin D ose 1 MG; Start 07/15/18 at 09:00 Amiodarone HCl (Cordarone) 200 mg DAILY PO Last administered on 07/27/18 09:13; Admin Dose 200 MG; Start 07/23/18 at 09:00 Metoprolol Tartrate (Lopressor) 12.5 mg BID PO Last administered on 07/27/18 09:13; Admin Dose 12.5 MG; Start 07/25/18 at 21:00 Warfarin Sodium (Coumadin) 7 mg DAILY@17 PO Last administered on 07/26/18 16:53; Admin Dose 7 MG; Start 07/26/18 at 17:00 Potassium Chloride (Klor-Con 10) 20 meq DAILY PO Last administered on 07/27/18 09:12; Admin Dose 20 MEQ; Start 07/27/18 at 09:00 KRISTY MCCULLOUGH Jul 27, 2018 13:14
--- NOTE | 2018-07-27 14:48 | CONS ---
Assessment/Plan Assessment/Plan Hospital Course (Demo Recall) IMP: 1.cad s/p LHC with no sig obstructive cad. Mildly depressed LVEF--40-45% ? nonischemic process 2.HTN 3.RP Bleed s/p transfusions now stable and tolerating heparin/coumadin loading. Then had recurrent bled overnight now s/p covered stent to HOSPITAL RECEPTIONIST/Ext iliac. Stable collection by abd CT 06/06 but still with pigtail catheter in place 4.HL 5.MVR-mechanical 6.anemia- s/p repair of R HOSP[facility] RE[employer]ION[facility]/illiac. Had hemoptysis with subsequent drop in Hgb again and holding of heparin. Had some mild blood tinged sputum 7.Hypothyroid 8. FOURNIER-negative Head CT 9. Fevers-with positive ua 10. UTI-Being followed by ID and on abx 11.ARF-? 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 Coagulopathy-downtrenede and resumed on couamadin with midly subtherapeutic INR 14. LE weakness-? compression from hematoma and exacerbated by femoral compression after cath-now resolved 15. arterial insuff- LLE- s/p TRUCK HOP/thrombolysis 06/04 successfully with palpable pulses/B DP/PT and remain that way 16. PAF/AFL-rate controlled 17. 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 Now decreasing hematuria. s/p pelvic CT revealing ongoing fistula and per urology note was discussed with family 18. Epistaxis-improved/resolved. no recurrence 19. 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 ? new , ? etiology. Urology following and per his note has discussed treatment options with family including surgical versus waiting and thinks that closure would be best per notes at this time, Family discussed possible transfer to [facility] for procedure as necessary. Recc: -Now on tele -Continue BB with well controlled Hr's -Continue statin -s/p course of abx's -ongoing ID f/u -F/U cp bleacher operator/K closely with creatnine now normalized and volume status improving on bumex bid. Will also assess patient's PO intake and possible contribution to volume overload -Follow HGb closely which has been stable to improved actually -PT/ambulation- doing 3x/day -will continue amio daily for now and follow rhythm clsoely with patient having episodes of PAF/AFL but always rate controlled -Urology following with findings of apparent bladder fistula and thus draining of the hematoma through the bladder causing hematuria which has improved and now apparent bladder-vaginal fistula.Continue to follow hematuria for complete resolution and assess need for spontaneous closure versus need for repair which has been discussed with family and urology and between them as well. ? necessity of closing fistula and d/c'ing vincent at this time given clarity of urine/resolution of hematuria but have discussed with urology and states bladder must remain decompressed until closure of fistula with vincent in place. Family intereseted in laparoscopic approach as possible versus open, Have been offered open repair by urology here. Case management is attempting transfer to tertiary care center at this time to [facility] which is ongoing -Now back on coumadin with therapeutic INR -Continue current bumex now daily PO again with good volume status Consultation Date/Type/Reason Admit Date/Time May 28, 2018 at 17:52 Initial Consult Date 05/28/18 Type of Consult Cardiology Reason for Consultation MVR Requesting Provider: JULY VALENTIN MD Date/Time of Note DATE: 07/27/18 TIME: 14:46 Exam/Review of Systems Vital Signs Vitals Vital Signs Date Temp Pulse Resp B/P (MAP) Pulse Ox O2 O2 Flow FiO2 Time Delivery Rate 07/27/18 72 13:27 07/27/18 97.7 19 122/57 96 11:37 (78) 07/27/18 Room Air 04:18 Intake and Output 07/26/18 07/26/18 07/27/18 1515:00 23:00 07:00 IntakeIntake Total 1000 ml 400 ml OutputOutput Total 1100 ml 700 ml BalanceBalance -100 ml -300 ml Exam Exam Review of Systems: CONSTITUTIONAL: No fevers, chills. PULMONARY: No sob CARDIOVASCULAR: No chest pain/palpitations GASTROINTESTINAL: No nausea/vomiting. GENITOURINARY: No hematuria/dysuria. MUSCULOSKELETAL: No myagias/arthalgias. PSYCHIATRIC: The patient denies depression. NEUROLOGIC: No weakness Constitutional: alert Psych: no complaints Head: normocephalic ENMT: mucosa pink and moist Neck: supple, jvd (9 cm water) Respiratory: clear to auscultation Cardiovascular: regular rate and rhythm Gastrointestinal: soft, non-tender Musculoskeletal: muscle tone (normal) Extremities: edema (None) Neurological: other (No focal deficits) Labs Result Diagram: 07/26/18 0658 Results 24hrs Laboratory Tests Test 07/27/18 05:55 Prothrombin Time 25.4 #H Prothrombin Time Ratio 2.0 INR International Normalized Ratio 2.30 Medications Medications Current Medications Levothyroxine Sodium (Synthroid) 50 mcg BEFORE BREAKFAST PO Last administered on 07/27/18 06:14; Admin Dose 50 MCG; Start 05/30/18 at 07:00 Mometasone Furoate (Asmanex) 1 puff DAILY INH Last administered on 07/27/18 09:11; Admin Dose 1 PUFF; Start 05/29/18 at 11:00 Atorvastatin Calcium (Lipitor) 10 mg DAILY@21 PO Last administered on 07/26/18 20:26; Admin Dose 10 MG; Start 05/29/18 at 21:00 Latanoprost (Xalatan) 1 drop HS BOTH EYES Last administered on 07/26/18 20:26; Admin Dose 1 DROP; Start 06/01/18 at 21:00 Amlodipine Besylate (Norvasc) 5 mg DAILY PO ; Start 06/03/18 at 09:00; Status Hold Pantoprazole (Protonix Tab) 40 mg DAILY@06 PO Last administered on 07/27/18 05:25; Admin Dose 40 MG; Start 06/05/18 at 06:00 Metoclopramide HCl (Reglan) 5 mg TID PRN IV Nausea; Start 06/06/18 at 11:00 Polyethylene Glycol (Miralax) 17 gm BID PRN PO CONSTIPATION; Start 06/06/18 at 14:00 Bisacodyl (Dulcolax Supp) 10 mg DAILY PRN [place] CONSTIPATION; Start 06/06/18 at 14:00 IV Flush (NS 10 ml) 10 ml PRN PRN IV IV PROTOCOL; Start 06/06/18 at 16:00 Nystatin (Nystatin Susp) 5 ml QID PO Last administered on 07/27/18at 12:47; Admin Dose 5 ML; Start 06/06/18 at 17:00 Ferrous Sulfate (Ferrous Sulfate (Ec)) 325 mg BID PO Last administered on 07/27/18at 09:13; Admin Dose 325 MG; Start 07/09/18 at 09:30 Docusate Sodium (Colace) 100 mg DAILY PO Last administered on 07/27/18 09:12; Admin Dose 100 MG; Start 07/10/18 at 09:00 Acetaminophen (Tylenol Tab) 650 mg Q6H PRN PO MILD PAIN(1-3)OR ELEVATED TEMP Last administered on 07/14/18 21:04; Admin Dose 650 MG; Start 07/14/18 at 21:00 Bumetanide (Bumex) 1 mg DAILY PO Last administered on 07/27/18 09:12; Admin Dose 1 MG; Start 07/15/18 at 09:00 Amiodarone HCl (Cordarone) 200 mg DAILY PO Last administered on 07/27/18 09:13; Admin Dose 200 MG; Start 07/23/18 at 09:00 Metoprolol Tartrate (Lopressor) 12.5 mg BID PO Last administered on 07/27/18 09:13; Admin Dose 12.5 MG; Start 07/25/18 at 21:00 Warfarin Sodium (Coumadin) 7 mg DAILY@17 PO Last administered on 07/26/18 16:53; Admin Dose 7 MG; Start 07/26/18 at 17:00 Potassium Chloride (Klor-Con 10) 20 meq DAILY PO Last administered on 07/27/18 09:12; Admin Dose 20 MEQ; Start 07/27/18 at 09:00 CHRIS LAZAR Jul 27, 2018 14:48
[2018-07-27] MEDS: WARFARIN 3 MG TAB PO SCH (18:16)
[2018-07-27] MEDS: ATORVASTATIN 10 MG TAB PO SCH (20:27)
[2018-07-27] MEDS: LATANOPROST 0.005% 2.5 ML OPH BOTH EYES SCH (20:28)
[2018-07-28] VITALS (9 sets, daily range): BP systolic 106–140; BP diastolic 56–63; PULSE 60–94; RESP 18–19
[2018-07-28] MEDS: PANTOPRAZOLE (EC) 40 MG TAB PO SCH (06:13)
[2018-07-28] MEDS: LEVOTHYROXINE 50 MCG TAB PO SCH (06:13)
[2018-07-28] MEDS: BUMETANIDE 1 MG TAB PO SCH (08:34)
[2018-07-28] MEDS: NYSTATIN SUSP 5 ML CUP PO SCH ×4 (08:34→21:26)
[2018-07-28] MEDS: FERROUS SULFATE (EC) 325 MG TAB PO SCH ×2 (08:34→21:26)
[2018-07-28] MEDS: METOPROLOL 25 MG TAB PO SCH ×2 (08:35→21:26)
[2018-07-28] MEDS: POTASSIUM CHLORIDE (SR) 10 MEQ TAB PO SCH (08:35)
[2018-07-28] MEDS: MOMETASONE 0.24 GM INHALER INH SCH (08:35)
[2018-07-28] MEDS: DOCUSATE SODIUM 100 MG CAP PO SCH (08:35)
[2018-07-28] MEDS: AMIODARONE 200 MG TAB PO SCH (08:35)
--- NOTE | 2018-07-28 09:28 | PN ---
DATE: 07/28/2018 SUBJECTIVE: The patient is stable, no events overnight. OBJECTIVE: VITAL SIGNS: Blood pressure is 119/60, respiration 18, pulse 64, temperature 98.0. HEENT: Head is normocephalic. NECK: Supple. HEART: Regular rate. LUNGS: Show diminished breath sounds at base. ABDOMEN: Soft, nontender to palpation without rebound or guarding. EXTREMITIES: Negative for clubbing, cyanosis. Trace edema. DERMATOLOGIC: No rashes. MUSCULOSKELETAL: No joint effusion. NEUROLOGIC: No change in exam. MEDICATIONS: Reviewed. LABORATORY DATA: Pending. ASSESSMENT AND PLAN: 1. Nonoliguric acute kidney injury with previously normal baseline creatinine. Etiology of acute ki dney injury is secondary to acute tubular necrosis. Renal function is improved. Continue to monitor . Continue current treatment plans, supportive care, renally dose all medications. 2. Hematuria. Etiology secondary to , resolved. Continue to monitor. 3. Volume overload, improved. Continue current diuretic regimen. 4. Hyperkalemia. Repeat renal panel. Will give potassium chloride as needed. 5. Anemia. Continue to monitor hemoglobin and hematocrit levels. 6. Mechanical heart valve. Continue anticoagulation per cardiology. 7. Sepsis secondary to urinary tract infection. Patient is completing antibiotic course. 8. Hypothyroidism. Continue Synthroid. 9. Dyslipidemia. Continue statin therapy. 10. Hypertension. Continue current blood pressure regimen. 11. Liver cirrhosis. 12. Status post urinary tract infection. Dictated By: GWYN FABIAN DO NR/NTS Conf#: [id number] DID#: [id number] CC: CHRIS LAZAR MD;*EndCC*
--- NOTE | 2018-07-28 13:30 | CONS ---
Assessment/Plan Assessment/Plan Hospital Course (Demo Recall) IMP: 1.cad s/p LHC with no sig obstructive cad. Mildly depressed LVEF--40-45% ? nonischemic process 2.HTN 3.RP Bleed s/p transfusions now stable and tolerating heparin/coumadin loading. Then had recurrent bled overnight now s/p covered stent to [facility] [employer]/Ext iliac. Stable collection by abd CT 06/06 but still with pigtail catheter in place 4.HL 5.MVR-mechanical 6.anemia- s/p repair of R [employer]/illiac. Had hemoptysis with subsequent drop in Hgb again and holding of heparin. Had some mild blood tinged sputum 7.Hypothyroid 8. FOURNIER-negative Head CT 9. Fevers-with positive ua 10. UTI-Being followed by ID and on abx 11.ARF-? 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 Coagulopathy-downtrenede and resumed on couamadin with midly subtherapeutic INR 14. LE weakness-? compression from hematoma and exacerbated by femoral compression after cath-now resolved 15. arterial insuff- LLE- s/p HOG SCALDER/thrombolysis 06/04 successfully with palpable pulses/B DP/PT and remain that way 16. PAF/AFL-rate controlled 17. 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 Now decreasing hematuria. s/p pelvic CT revealing ongoing fistula and per urology note was discussed with family 18. Epistaxis-improved/resolved. no recurrence 19. 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 ? new , ? etiology. Urology following and per his note has discussed treatment options with family including surgical versus waiting and thinks that closure would be best per notes at this time, Family discussed possible transfer to [facility] for procedure as necessary. Recc: -Now on tele -Continue BB with well controlled Hr's -Continue statin -s/p course of abx's -ongoing ID f/u -F/U agency appointments supervisor/K closely with creatnine now normalized and volume status improving on bumex bid. Will also assess patient's PO intake and possible contribution to volume overload -Follow HGb closely which has been stable to improved actually -PT/ambulation- doing 3x/day -will continue amio daily for now and follow rhythm clsoely with patient having episodes of PAF/AFL but always rate controlled -Urology following with findings of apparent bladder fistula and thus draining of the hematoma through the bladder causing hematuria which has improved and now apparent bladder-vaginal fistula.Continue to follow hematuria for complete resolution and assess need for spontaneous closure versus need for repair which has been discussed with family and urology and between them as well. ? necessity of closing fistula and d/c'ing vincent at this time given clarity of urine/resolution of hematuria but have discussed with urology and states bladder must remain decompressed until closure of fistula with vincent in place. Family intereseted in laparoscopic approach as possible versus open, Have been offered open repair by urology here. Case managementhas been attempting transfer to tertiary care center [facility] but has not been accepted. Possible d/c with indwelling vincent and outpatienbt f/u at [facility] -Now back on coumadin with therapeutic INR -Continue current bumex now daily PO again with good volume status Consultation Date/Type/Reason Admit Date/Time May 28, 2018 at 17:52 Initial Consult Date 05/28/18 Type of Consult Cardiology Reason for Consultation MVR Requesting Provider: JULY VALENTIN MD Date/Time of Note DATE: 07/28/18 TIME: 13:27 Exam/Review of Systems Vital Signs Vitals Vital Signs Date Temp Pulse Resp B/P (MAP) Pulse Ox O2 O2 Flow FiO2 Time Delivery Rate 07/28/18 98.2 86 19 106/56 94 11:16 (73) 07/27/18 Room Air 23:20 Intake and Output 07/27/18 07/27/18 07/28/18 1515:00 23:00 07:00 IntakeIntake Total 700 ml 500 ml OutputOutput Total 1100 ml 700 ml BalanceBalance -400 ml -200 ml Exam Exam Review of Systems: CONSTITUTIONAL: No fevers, chills. PULMONARY: No sob CARDIOVASCULAR: No chest pain/palpitations GASTROINTESTINAL: No nausea/vomiting. GENITOURINARY: No hematuria/dysuria. MUSCULOSKELETAL: No myagias/arthalgias. PSYCHIATRIC: The patient denies depression. NEUROLOGIC: No weakness Constitutional: alert Psych: no complaints Head: normocephalic ENMT: mucosa pink and moist Neck: supple, jvd (9 cm water) Respiratory: diminished breath sounds (at bases/B) Cardiovascular: regular rate and rhythm Gastrointestinal: soft, non-tender Musculoskeletal: muscle tone (normal) Extremities: edema (none) Labs Result Diagram: 07/28/18 0736 Results 24hrs Laboratory Tests Test 07/28/18 07:36 Prothrombin Time 29.7 H Prothrombin Time Ratio 2.3 INR International Normalized Ratio 2.82 Sodium Level 137 Potassium Level 4.1 Chloride Level 102 Carbon Dioxide Level 28 Anion Gap 7 Blood Urea Nitrogen 22 H Creatinine 0.64 Est Glomerular Filtrat Rate mL/min > 60 Glucose Level 102 Calcium Level 9.5 Phosphorus Level 4.2 Magnesium Level 1.9 Medications Medications Current Medications Levothyroxine Sodium (Synthroid) 50 mcg BEFORE BREAKFAST PO Last administered on 07/28/18 06:13; Admin Dose 50 MCG; Start 05/30/18 at 07:00 Mometasone Furoate (Asmanex) 1 puff DAILY INH Last administered on 07/28/18at 08:35; Admin Dose 1 PUFF; Start 05/29/18 at 11:00 Atorvastatin Calcium (Lipitor) 10 mg DAILY@21 PO Last administered on 07/27/18at 20:27; Admin Dose 10 MG; Start 05/29/18 at 21:00 Latanoprost (Xalatan) 1 drop HS BOTH EYES Last administered on 07/27/18at 20:28; Admin Dose 1 DROP; Start 06/01/18 at 21:00 Amlodipine Besylate (Norvasc) 5 mg DAILY PO ; Start 06/03/18 at 09:00; Status Hold Pantoprazole (Protonix Tab) 40 mg DAILY@06 PO Last administered on 07/28/18at 06:13; Admin Dose 40 MG; Start 06/05/18 at 06:00 Metoclopramide HCl (Reglan) 5 mg TID PRN IV Nausea; Start 06/06/18 at 11:00 Polyethylene Glycol (Miralax) 17 gm BID PRN PO CONSTIPATION; Start 06/06/18 at 14:00 Bisacodyl (Dulcolax Supp) 10 mg DAILY PRN [place] CONSTIPATION; Start 06/06/18 at 14:00 IV Flush (NS 10 ml) 10 ml PRN PRN IV IV PROTOCOL; Start 06/06/18 at 16:00 Nystatin (Nystatin Susp) 5 ml QID PO Last administered on 07/28/18 12:15; Admin Dose 5 ML; Start 06/06/18 at 17:00 Ferrous Sulfate (Ferrous Sulfate (Ec)) 325 mg BID PO Last administered on 07/28/18 08:34; Admin Dose 325 MG; Start 07/09/18 at 09:30 Docusate Sodium (Colace) 100 mg DAILY PO Last administered on 07/28/18 08:35; Admin Dose 100 MG; Start 07/10/18 at 09:00 Acetaminophen (Tylenol Tab) 650 mg Q6H PRN PO MILD PAIN(1-3)OR ELEVATED TEMP Last administered on 07/14/18 21:04; Admin Dose 650 MG; Start 07/14/18 at 21:00 Bumetanide (Bumex) 1 mg DAILY PO Last administered on 07/28/18 08:34; Admin Dose 1 MG; Start 07/15/18 at 09:00 Amiodarone HCl (Cordarone) 200 mg DAILY PO Last administered on 07/28/18 08:35; Admin Dose 200 MG; Start 07/23/18 at 09:00 Metoprolol Tartrate (Lopressor) 12.5 mg BID PO Last administered on 07/28/18 08:35; Admin Dose 12.5 MG; Start 07/25/18 at 21:00 Potassium Chloride (Klor-Con 10) 20 meq DAILY PO Last administered on 07/28/18 08:35; Admin Dose 20 MEQ; Start 07/27/18 at 09:00 Warfarin Sodium (Coumadin) 5 mg DAILY@17 PO Last administered on 07/27/18 18:16; Admin Dose 5 MG; Start 07/27/18 at 17:00 CHRIS LAZAR Jul 28, 2018 13:30
[2018-07-28] MEDS ORDERED: METO-448 PO (15:41)
[2018-07-28] MEDS ORDERED: WARF5TAB PO (15:41)
[2018-07-28] MEDS ORDERED: FER325 PO (15:41)
[2018-07-28] MEDS ORDERED: MOME220A2 INH (15:41)
[2018-07-28] MEDS ORDERED: LEVO50TA7 PO (15:41)
[2018-07-28] MEDS ORDERED: WARF4TAB PO (15:41)
[2018-07-28] MEDS ORDERED: POTA10TA37 PO (15:41)
[2018-07-28] MEDS ORDERED: LATA2.5D2 BOTH EYES (15:41)
[2018-07-28] MEDS ORDERED: DOCU-144 PO (15:41)
[2018-07-28] MEDS ORDERED: PANT40TA4 PO (15:41)
[2018-07-28] MEDS ORDERED: SIMV20TA PO (15:41)
[2018-07-28] MEDS ORDERED: BUME1TAB PO (15:41)
[2018-07-28] MEDS ORDERED: AMIO200T4 PO (15:41)
--- NOTE | 2018-07-28 17:13 | CONS ---
Assessment/Plan Assessment/Plan Hospital Course (Demo Recall) # sepsis, cardiopulmonary - S/p severe sepsis due to UTI, resolved - S/p SIRS due to acute blood loss, resolved - S/p L heart catheterization on 05/27/2018 showing no significant obstructive CAD - CAD - S/p CABG in [facility] in 1982 - H/o MVR with mechanical valve, in 1999 - Hypertension - PAF - Asthma # urology/renal, GI - Recurrent UTI on 07/15/2018 due to Citrobacter Freundii, Enterococcus species, MDR Enterobacter; s/p Zosyn->ertapenem - Hematuria caused by ruptured urinary bladder (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 - US Abdomen 07/18/18 showed Complex fluid collection about the anterior superior bladder measuring up to 10.0 x 8.6 x 7.2 cm. Bladder wall thickening. - Mensah was exchanged on 07/12/2018 and 07/14/2018 because her older catheter was leaking - S/p UTI due to hafnai alvei and pediococci on 06/30/18. Pt completed pip/tazo (07/02/18-07/05/2018) for this episode - S/p UTI due to E. coli. 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 - will continue to follow closely with you Consultation Date/Type/Reason Admit Date/Time May 28, 2018 at 17:52 Initial Consult Date 06/03/18 Type of Consult ID Requesting Provider: JULY VALENTIN MD Date/Time of Note DATE: 07/28/18 TIME: 17:12 Exam/Review of Systems Exam Vitals Vital Signs Date Temp Pulse Resp B/P (MAP) Pulse Ox O2 O2 Flow FiO2 Time Delivery Rate 07/28/18 90 16:08 07/28/18 97.7 18 118/57 93 15:27 (77) 07/27/18 Room Air 23:20 Intake and Output 07/27/18 07/27/18 07/28/18 1515:00 23:00 07:00 IntakeIntake Total 700 ml 500 ml OutputOutput Total 1100 ml 700 ml BalanceBalance -400 ml -200 ml Constitutional: alert, oriented, well developed Psych: no complaints, nl mood/affect Eyes: nl conjunctiva, EOMI, nl lids, nl sclera, PERRL Respiratory: clear to auscultation, normal air movement Gastrointestinal: soft, nl liver, spleen, non-tender Results Result Diagram: 07/28/18 0736 Results 24hrs Laboratory Tests Test 07/28/18 07:36 07/28/18 12:00 Prothrombin Time 29.7 H Prothrombin Time Ratio 2.3 INR International Normalized Ratio 2.82 Sodium Level 137 Potassium Level 4.1 Chloride Level 102 Carbon Dioxide Level 28 Anion Gap 7 Blood Urea Nitrogen 22 H Creatinine 0.64 Est Glomerular Filtrat Rate mL/min > 60 Glucose Level 102 Calcium Level 9.5 Phosphorus Level 4.2 Magnesium Level 1.9 Urine Color MARGARITA Urine Clarity TURBID A Urine pH 7.0 Urine Specific [place] 1.009 Urine Ketones NEGATIVE Urine Nitrite POSITIVE A Urine Bilirubin NEGATIVE Urine Urobilinogen NEGATIVE Urine Leukocyte Esterase 3+ H Urine Microscopic RBC 37 H Urine Microscopic WBC > 182 H Urine Squamous Epithelial Cells FEW Urine Bacteria MODERATE Urine Hemoglobin 3+ H Urine Glucose NEGATIVE Urine Total Protein 2+ H Medications Medication Current Medications Levothyroxine Sodium (Synthroid) 50 mcg BEFORE BREAKFAST PO Last administered on 07/28/18 06:13; Admin Dose 50 MCG; Start 05/30/18 at 07:00 Mometasone Furoate (Asmanex) 1 puff DAILY INH Last administered on 07/28/18 08:35; Admin Dose 1 PUFF; Start 05/29/18 at 11:00 Atorvastatin Calcium (Lipitor) 10 mg DAILY@21 PO Last administered on 07/27/18 20:27; Admin Dose 10 MG; Start 05/29/18 at 21:00 Latanoprost (Xalatan) 1 drop HS BOTH EYES Last administered on 07/27/18 20:28; Admin Dose 1 DROP; Start 06/01/18 at 21:00 Amlodipine Besylate (Norvasc) 5 mg DAILY PO ; Start 06/03/18 at 09:00; Status Hold Pantoprazole (Protonix Tab) 40 mg DAILY@06 PO Last administered on 07/28/18 06:13; Admin Dose 40 MG; Start 06/05/18 at 06:00 Metoclopramide HCl (Reglan) 5 mg TID PRN IV Nausea; Start 06/06/18 at 11:00 Polyethylene Glycol (Miralax) 17 gm BID PRN PO CONSTIPATION; Start 06/06/18 at 14:00 Bisacodyl (Dulcolax Supp) 10 mg DAILY PRN [place] CONSTIPATION; Start 06/06/18 at 14:00 IV Flush (NS 10 ml) 10 ml PRN PRN IV IV PROTOCOL; Start 06/06/18 at 16:00 Nystatin (Nystatin Susp) 5 ml QID PO Last administered on 07/28/18at 12:15; Admin Dose 5 ML; Start 06/06/18 at 17:00 Ferrous Sulfate (Ferrous Sulfate (Ec)) 325 mg BID PO Last administered on 07/28/18 08:34; Admin Dose 325 MG; Start 07/09/18 at 09:30 Docusate Sodium (Colace) 100 mg DAILY PO Last administered on 07/28/18 08:35; Admin Dose 100 MG; Start 07/10/18 at 09:00 Acetaminophen (Tylenol Tab) 650 mg Q6H PRN PO MILD PAIN(1-3)OR ELEVATED TEMP Last administered on 07/14/18at 21:04; Admin Dose 650 MG; Start 07/14/18 at 21:00 Bumetanide (Bumex) 1 mg DAILY PO Last administered on 07/28/18 08:34; Admin Dose 1 MG; Start 07/15/18 at 09:00 Amiodarone HCl (Cordarone) 200 mg DAILY PO Last administered on 07/28/18 08:35; Admin Dose 200 MG; Start 07/23/18 at 09:00 Metoprolol Tartrate (Lopressor) 12.5 mg BID PO Last administered on 07/28/18 08:35; Admin Dose 12.5 MG; Start 07/25/18 at 21:00 Potassium Chloride (Klor-Con 10) 20 meq DAILY PO Last administered on 07/28/18 08:35; Admin Dose 20 MEQ; Start 07/27/18 at 09:00 Warfarin Sodium (Coumadin) 5 mg DAILY@17 PO Last administered on 07/27/18 18:16; Admin Dose 5 MG; Start 07/27/18 at 17:00 MARSHA IYER MD Jul 28, 2018 17:13
[2018-07-28] MEDS: WARFARIN 3 MG TAB PO SCH (17:39)
--- NOTE | 2018-07-28 17:54 | DS ---
Date/Time of Note Date/Time of Note DATE: 07/28/18 TIME: 17:51 Discharge Summary Admission/Discharge Info Admit Date/Time May 28, 2018 at 17:52 Discharge Date/Time Patient Condition: Stable Hx of Present Illness The patient is a 62-year-old Polish female with history of hypertension, dyslipidemia, and mechanical mitral valve replacement. Patient was evaluated fo r complaints of shortness of breath for which she underwent a cardiac stress test revealing ischemia and 2D echo with possible severe . Patient underwent left heart catheterization to assess for possibility of significant obstructive coronary artery disease lending to symptoms of shortness of breath and significant findings by echo and stress test by Dr Moreno. Patient seen in PACU- c/o abdominal pain; CT abdomen showed -Moderate to large amount of hemoperitoneum; Dr Moreno notified. Patient denies any chest pain, shortness of breath, headache, dizziness, nausea, vomiting. Patient is admitted under Dr Painter for further treatment/evaluation. Hospital Course D/c home with services for Mensah care. Pending arrangement for f/up with urologist at [facility] [place] according to pt's insurance for a laparoscopic bladder fistula closure. 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 Hematuria resolved, continue Mensah. Patient and family refused open surgery for bladder fistula closure offered by Dr. Ashford, urology consultation. -Polymicrobial UTI, completed treatment with abx. Dr. Hughes is following in infection disease consultation. -Anemia of acute blood loss, transfuse PRN, monitor H&H. 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 -S/p Nose/oropharyngeal bleed on 06/11/2018, stopped after heparin was held. -Retroperitoneal bleed secondary to vascular injury status post stent placement. S/p CT guided placement of drainage catheter into pelvic hematoma on 06/05/18 and sequent removal. -Status post left heart catheterization with no significant obstructive coronary artery disease by Dr. Moreno on 05/27/2018. -Anemia of acute blood loss, status post blood transfusion, continue to monitor hemoglobin and hematocrit. -Urinary incontinence. -Acute illness myopathy, resolved. -Status post mitral valve replacement with mechanical valve in 1999. Continue Coumadin, monitor PT/INR. -HTN, continue metoprolol -Hyperlipidemia -Hypothyroidism, continue levothyroxine -History of asthma Plan of care discussed with Dr. Painter. Home Meds Active Scripts Ferrous Sulfate* (Ferrous Sulfate*) 325 Mg Tabec, 325 MG PO BID for 30 Days, TAB Prov:KRISTY MCCULLOUGH 07/28/18 Pantoprazole* (Pantoprazole*) 40 Mg Tablet.dr, 40 MG PO DAILY@06 for 30 Days Prov:KRISTY MCCULLOUGH 07/28/18 Docusate Sodium* (Colace*) 100 Mg Capsule, 100 MG PO DAILY for 30 Days, CAP Prov:KRISTY MCCULLOUGH 07/28/18 Latanoprost (Latanoprost) 2.5 Ml Drops, 1 DROP BOTH EYES HS for 30 Days, BOTTLE Prov:KRISTY MCCULLOUGH 07/28/18 Mometasone Furoate (Asmanex) 220 Mcg Aer.pow.ba, 1 PUFF INH DAILY for 30 Days Prov:KRISTY MCCULLOUGH 07/28/18 Potassium Chloride* (K-Dur*) 10 Meq Tab.prt.sr, 20 MEQ PO DAILY for 30 Days Prov:KRISTY MCCULLOUGH 07/28/18 Bumetanide* (Bumetanide*) 1 Mg Tablet, 1 MG PO DAILY for 30 Days, TAB Prov:KRISTY MCCULLOUGH 07/28/18 Metoprolol Tartrate* (Lopressor*) 25 Mg Tab, 12.5 MG PO BID for 30 Days, TAB Prov:KRISTY MCCULLOUGH 07/28/18 Amiodarone Hcl* (Amiodarone Hcl*) 200 Mg Tablet, 200 MG PO DAILY for 30 Days, TAB Prov:KRISTY MCCULLOUGH 07/28/18 Warfarin Sodium* (Coumadin*) 5 Mg Tablet, 5 MG PO Q TUES,THUR,SAT for 30 Days, TAB Prov:KRISTY MCCULLOUGH 07/28/18 Warfarin Sodium* (Coumadin*) 4 Mg Tablet, 4 MG PO Q MON,WED,FRI,SUN for 30 Days, TAB Prov:KRISTY MCCULLOUGH 07/28/18 Simvastatin* (Zocor*) 20 Mg Tablet, 20 MG PO QHS, #30 TAB Prov:KRISTY MCCULLOUGH 07/28/18 Levothyroxine Sodium* (Levothyroxine Sodium*) 50 Mcg Tablet, 50 MCG PO BEFORE BREAKFAST for 30 Days, TAB Prov:KRISTY MCCULLOUGH 07/28/18 Reported Medications Albuterol Sulfate* (Ventolin HFA*) 18 Gm Hfa.aer.ad, 2 PUFF INHALATION Q4H, #1 INHALER 05/26/18 Ergocalciferol (Vitamin D2) (VITAMIN D2) 50,000 Unit Capsule, 42082 UNIT PO [id number], CAP 05/23/18 Furosemide* (Furosemide*) 20 Mg Tablet, 20 MG PO DAILY, #60 TAB TAKE Q 2 DAYS 05/23/18 Ranitidine Hcl* (Ranitidine Hcl*) 150 Mg Tablet, 150 MG PO HS, #30 TAB 05/23/18 Acetaminophen (Mapap) 500 Mg Capsule, 500 MG PO BID PRN for PAIN, CAP 05/23/18 Spironolactone* (Aldactone*) 25 Mg Tablet, 25 MG PO DAILY, #30 TAB 05/23/18 Beclomethasone Dipropionate (Qvar Redihaler (40 MCG)) 10.6 Gm Hfa.aeroba, 10.6 GM IH DAILY, INH 05/23/18 Amlodipine Besylate* (Norvasc*) 5 Mg Tablet, 5 MG PO BID, TAB 05/23/18 Losartan-Hydrochlorothiazide (Losartan-HCTZ) 100-25 Mg Tab, 1 TAB PO DAILY, TAB 05/23/18 Follow-up Plan Discharge after arrangement is down to follow-up with urologist for laparoscopic bladder fistula closure and home health for Mensah catheter care. Patient to follow-up with primary care physician in 1 week, PT and INR in 1 week at PMD office. Primary Care Provider Not On Staff Doctor Time spent on discharge: > 30 minutes Pending Labs Laboratory Tests Test 07/28/18 07:36 07/28/18 12:00 Prothrombin Time 29.7 Sec (11.9-14.9) Prothrombin Time Ratio 2.3 INR International 2.82 Normalized Ratio Sodium Level 137 mmol/L (135-144) Potassium Level 4.1 mmol/L (3.5-5.1) Chloride Level 102 mmol/L (97-110) Carbon Dioxide Level 28 mmol/L (21-31) Anion Gap 7 (5-13) Blood Urea Nitrogen 22 mg/dl (7-20) Creatinine 0.64 mg/dl (0.44-1.00) Est Glomerular Filtrat > 60 mL/min (>60) Rate mL/min Glucose Level 102 mg/dl (70-220) Calcium Level 9.5 mg/dl (8.4-10.2) Phosphorus Level 4.2 mg/dl (2.5-4.9) Magnesium Level 1.9 mg/dl (1.7-2.5) Urine Color MARGARITA (YELLOW) Urine Clarity TURBID (CLEAR) Urine pH 7.0 (5.0-9.0) Urine Specific [place] 1.009 (1.003-1.030) Urine Ketones NEGATIVE mg/dL (NEGATIVE) Urine Nitrite POSITIVE mg/dL (NEGATIVE) Urine Bilirubin NEGATIVE mg/dL (NEGATIVE) Urine Urobilinogen NEGATIVE mg/dL (NEGATIVE) Urine Leukocyte Esterase 3+ Shayan/ul (NEGATIVE) Urine Microscopic RBC 37 /HPF (0-5) Urine Microscopic WBC > 182 /HPF (0-5) Urine Squamous FEW /HPF (FEW) Epithelial Cells Urine Bacteria MODERATE /HPF (NONE SEEN) Urine Hemoglobin 3+ mg/dL (NEGATIVE) Urine Glucose NEGATIVE mg/dL (NEGATIVE) Urine Total Protein 2+ mg/dl (NEGATIVE) KRISTY MCCULLOUGH Jul 28, 2018 17:54
[2018-07-28] MEDS: ATORVASTATIN 10 MG TAB PO SCH (21:26)
[2018-07-28] MEDS: LATANOPROST 0.005% 2.5 ML OPH BOTH EYES SCH (21:27)
[2018-07-29] VITALS (10 sets, daily range): BP systolic 106–123; BP diastolic 52–60; PULSE 84–87; RESP 15–18
[2018-07-29] MEDS: PANTOPRAZOLE (EC) 40 MG TAB PO SCH (05:58)
[2018-07-29] MEDS: LEVOTHYROXINE 50 MCG TAB PO SCH (06:00)
[2018-07-29] MEDS: MOMETASONE 0.24 GM INHALER INH SCH (08:34)
[2018-07-29] MEDS: BUMETANIDE 1 MG TAB PO SCH (08:35)
[2018-07-29] MEDS: POTASSIUM CHLORIDE (SR) 10 MEQ TAB PO SCH (08:35)
[2018-07-29] MEDS: NYSTATIN SUSP 5 ML CUP PO SCH ×4 (08:35→20:21)
[2018-07-29] MEDS: DOCUSATE SODIUM 100 MG CAP PO SCH (08:35)
[2018-07-29] MEDS: FERROUS SULFATE (EC) 325 MG TAB PO SCH ×2 (08:36→20:20)
[2018-07-29] MEDS: METOPROLOL 25 MG TAB PO SCH ×2 (08:36→20:21)
[2018-07-29] MEDS: AMIODARONE 200 MG TAB PO SCH (08:37)
--- NOTE | 2018-07-29 09:29 | PN ---
DATE: 07/29/2018 SUBJECTIVE: The patient remains stable. No events overnight. No fevers, chills, nausea, or vomitin g. OBJECTIVE: VITAL SIGNS: Blood pressure is 123/60, pulse 87, respirations 18, temperature 97.7. HEENT: Head is normocephalic. NECK: Supple. HEART: Regular rate. LUNGS: Show diminished breath sounds at the base. ABDOMEN: Soft, nontender to palpation without rebound or guarding. EXTREMITIES: Negative for clubbing, cyanosis. Trace edema. DERMATOLOGIC: No rashes. MUSCULOSKELETAL: No joint effusion. NEUROLOGIC: No change in exam. MEDICATIONS: Reviewed. LABORATORY DATA: Reviewed. ASSESSMENT AND PLAN: 1. Nonoliguric acute kidney injury with previously normal baseline creatinine. Etiology of acute ki dney injury is secondary to acute tubular necrosis. Renal function is improved. Continue to monitor . 2. 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 The p atient's hematuria has resolved. Continue to monitor. 3. Volume overload, improved. Continue current diuretic regimen. 4. Hypokalemia. We will continue to monitor and replete with potassium chloride. 5. Anemia. Continue to monitor hemoglobin and hematocrit levels. 6. Mechanical heart valve. Continue anticoagulation. 7. Sepsis secondary to urinary tract infection. The patient is completing antibiotic course. 8. Hypothyroidism. Continue Synthroid. 9. Dyslipidemia. Continue statin therapy. 10. Hypertension. Continue current blood pressure regimen. 11. History of liver cirrhosis. 12. Status post urinary tract infection. Dictated By: GWYN FABIAN DO NR/NTS Conf#: [id number] DID#: [id number] CC: JULY VALENTIN MD; CHRIS LAZAR MD; JOAQUIN DE LEON MD;*EndCC*
--- NOTE | 2018-07-29 11:44 | PN ---
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 Continue Mensah, monitor. Dr. Ashford is following in urology consultation. -Polymicrobial UTI, completed treatment with abx. Dr. Hughes is following in infection disease consultation. -Anemia of acute blood loss, transfuse PRN, monitor H&H. 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 -S/p Nose/oropharyngeal bleed on 06/11/2018, stopped after heparin was held. -Retroperitoneal bleed secondary to vascular injury status post stent placement. S/p CT guided placement of drainage catheter into pelvic hematoma on 06/05/18 and sequent removal. -Status post left heart catheterization with no significant obstructive coronary artery disease by Dr. Moreno on 05/27/2018. -Anemia of acute blood loss, status post blood transfusion, continue to monitor hemoglobin and hematocrit. -Urinary incontinence. -Acute illness myopathy -Status post mitral valve replacement with mechanical valve in 1999. Continue Coumadin, monitor PT/INR. -HTN, continue metoprolol -Hyperlipidemia -Hypothyroidism, continue levothyroxine -History of asthma Plan of care discussed with Dr. Painter. Result Diagram: 07/29/18 0604 07/28/18 0736 Results 24hrs Laboratory Tests Test 07/28/18 12:00 07/29/18 06:04 Urine Color MARGARITA Urine Clarity TURBID A Urine pH 7.0 Urine Specific [place] 1.009 Urine Ketones NEGATIVE Urine Nitrite POSITIVE A Urine Bilirubin NEGATIVE Urine Urobilinogen NEGATIVE Urine Leukocyte Esterase 3+ H Urine Microscopic RBC 37 H Urine Microscopic WBC > 182 H Urine Squamous Epithelial Cells FEW Urine Bacteria MODERATE Urine Hemoglobin 3+ H Urine Glucose NEGATIVE Urine Total Protein 2+ H White Blood Count 4.4 L Red Blood Count 2.84 L Hemoglobin 8.8 L Hematocrit 27.5 L Mean Corpuscular Volume 96.8 Mean Corpuscular Hemoglobin 31.0 Mean Corpuscular Hemoglobin Concent 32.0 Red Cell Distribution Width 15.8 H Platelet Count 244 Mean Platelet Volume 9.5 Immature Granulocytes % 1.100 H Neutrophils % 59.3 Lymphocytes % 29.1 Monocytes % 8.2 Eosinophils % 1.6 Basophils % 0.7 Nucleated Red Blood Cells % 0.0 Immature Granulocytes # 0.050 H Neutrophils # 2.6 Lymphocytes # 1.3 Monocytes # 0.4 Eosinophils # 0.1 Basophils # 0.0 Nucleated Red Blood Cells # 0.0 Exam/Review of Systems Exam Vitals Vital Signs Date Temp Pulse Resp B/P (MAP) Pulse Ox O2 O2 Flow FiO2 Time Delivery Rate 07/29/18 87 08:30 07/29/18 97.7 18 123/60 96 Room Air 07:42 (81) Intake and Output 07/28/18 07/28/18 07/29/18 1515:00 23:00 07:00 IntakeIntake Total 900 ml 700 ml OutputOutput Total 111 ml 250 ml BalanceBalance 789 ml 450 ml Results Results 24hrs Laboratory Tests Test 07/28/18 12:00 07/29/18 06:04 Urine Color MARGARITA Urine Clarity TURBID A Urine pH 7.0 Urine Specific [place] 1.009 Urine Ketones NEGATIVE Urine Nitrite POSITIVE A Urine Bilirubin NEGATIVE Urine Urobilinogen NEGATIVE Urine Leukocyte Esterase 3+ H Urine Microscopic RBC 37 H Urine Microscopic WBC > 182 H Urine Squamous Epithelial Cells FEW Urine Bacteria MODERATE Urine Hemoglobin 3+ H Urine Glucose NEGATIVE Urine Total Protein 2+ H White Blood Count 4.4 L Red Blood Count 2.84 L Hemoglobin 8.8 L Hematocrit 27.5 L Mean Corpuscular Volume 96.8 Mean Corpuscular Hemoglobin 31.0 Mean Corpuscular Hemoglobin Concent 32.0 Red Cell Distribution Width 15.8 H Platelet Count 244 Mean Platelet Volume 9.5 Immature Granulocytes % 1.100 H Neutrophils % 59.3 Lymphocytes % 29.1 Monocytes % 8.2 Eosinophils % 1.6 Basophils % 0.7 Nucleated Red Blood Cells % 0.0 Immature Granulocytes # 0.050 H Neutrophils # 2.6 Lymphocytes # 1.3 Monocytes # 0.4 Eosinophils # 0.1 Basophils # 0.0 Nucleated Red Blood Cells # 0.0 Medications Medication Current Medications Levothyroxine Sodium (Synthroid) 50 mcg BEFORE BREAKFAST PO Last administered on 07/29/18at 06:00; Admin Dose 50 MCG; Start 05/30/18 at 07:00 Mometasone Furoate (Asmanex) 1 puff DAILY INH Last administered on 07/29/18 08:34; Admin Dose 1 PUFF; Start 05/29/18 at 11:00 Atorvastatin Calcium (Lipitor) 10 mg DAILY@21 PO Last administered on 07/28/18 21:26; Admin Dose 10 MG; Start 05/29/18 at 21:00 Latanoprost (Xalatan) 1 drop HS BOTH EYES Last administered on 07/28/18 21:27; Admin Dose 1 DROP; Start 06/01/18 at 21:00 Amlodipine Besylate (Norvasc) 5 mg DAILY PO ; Start 06/03/18 at 09:00; Status Hold Pantoprazole (Protonix Tab) 40 mg DAILY@06 PO Last administered on 07/29/18 05:58; Admin Dose 40 MG; Start 06/05/18 at 06:00 Metoclopramide HCl (Reglan) 5 mg TID PRN IV Nausea; Start 06/06/18 at 11:00 Polyethylene Glycol (Miralax) 17 gm BID PRN PO CONSTIPATION; Start 06/06/18 at 14:00 Bisacodyl (Dulcolax Supp) 10 mg DAILY PRN [place] CONSTIPATION; Start 06/06/18 at 14:00 IV Flush (NS 10 ml) 10 ml PRN PRN IV IV PROTOCOL; Start 06/06/18 at 16:00 Nystatin (Nystatin Susp) 5 ml QID PO Last administered on 07/29/18 08:35; A dmin Dose 5 ML; Start 06/06/18 at 17:00 Ferrous Sulfate (Ferrous Sulfate (Ec)) 325 mg BID PO Last administered on 07/29/18 08:36; Admin Dose 325 MG; Start 07/09/18 at 09:30 Docusate Sodium (Colace) 100 mg DAILY PO Last administered on 07/29/18 08:35; Admin Dose 100 MG; Start 07/10/18 at 09:00 Acetaminophen (Tylenol Tab) 650 mg Q6H PRN PO MILD PAIN(1-3)OR ELEVATED TEMP Last administered on 07/14/18at 21:04; Admin Dose 650 MG; Start 07/14/18 at 21:00 Bumetanide (Bumex) 1 mg DAILY PO Last administered on 07/29/18 08:35; Admin Dose 1 MG; Start 07/15/18 at 09:00 Amiodarone HCl (Cordarone) 200 mg DAILY PO Last administered on 07/29/18 08:37; Admin Dose 200 MG; Start 07/23/18 at 09:00 Metoprolol Tartrate (Lopressor) 12.5 mg BID PO Last administered on 07/29/18 08:36; Admin Dose 12.5 MG; Start 07/25/18 at 21:00 Potassium Chloride (Klor-Con 10) 20 meq DAILY PO Last administered on 07/29/18 08:35; Admin Dose 20 MEQ; Start 07/27/18 at 09:00 Warfarin Sodium (Coumadin) 5 mg DAILY@17 PO Last administered on 07/28/18at 17:39; Admin Dose 5 MG; Start 07/27/18 at 17:00 DELICIA MATUTE Jul 29, 2018 11:44
[2018-07-29] MEDS ORDERED: ALBUTEROL/IPRATROPIUM (NEB) 3 ML AMP HHN PRN (12:00)
--- NOTE | 2018-07-29 12:25 | CONS ---
[facility] Quyen Se[facility] Unit Number: [id number] Date of : 1955 Patient Status: Admitted Inpatient Attending Doctor: July Valentin MD Edit: SHARI MOLINA M.D. on 08/01/18 @ 04:46 Jesse: I discussed the management with PH[employer] MASK INSPECTOR and agree Assessment/Plan Assessment/Plan Hospital Course (Demo Recall) # sepsis, cardiopulmonary - S/p severe sepsis due to UTI, resolved - S/p SIRS due to acute blood loss, resolved - S/p L heart catheterization on 05/27/2018 showing no significant obstructive CAD - CAD - S/p CABG in [facility] in 1982 - H/o MVR with mechanical valve, in 1999 - Hypertension - PAF - Asthma # urology/renal, GI - Recurrent UTI on 07/15/2018 due to Citrobacter Freundii, Enterococcus species, MDR Enterobacter; s/p Zosyn->ertapenem - Hematuria caused by ruptured urinary bladder (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 - US Abdomen 07/18/18 showed Complex fluid collection about the anterior superior bladder measuring up to 10.0 x 8.6 x 7.2 cm. Bladder wall thickening. - Mensah was exchanged on 07/12/2018 and 07/14/2018 because her older catheter was leaking - S/p UTI due to hafnai alvei and pediococci on 06/30/18. Pt completed pip/tazo (07/02/18-07/05/2018) for this episode - S/p UTI due to E. coli. 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 - will continue to follow closely with you Plan was d/w patient, her at bedside, and with Dr. Molina. Thank you Consultation Date/Type/Reason Admit Date/Time May 28, 2018 at 17:52 Initial Consult Date 06/03/18 Type of Consult ID Requesting Provider: JULY VALENTIN MD Date/Time of Note DATE: 07/29/18 TIME: 12:24 24 HR Interval Summary Free Text/Dictation Per d/w patient and her , they are wondering why PT didn't come for the past two days. The patient notes that she is able to get oob with minimal assist with her and he has been assisting her to ambulate. A 10pt ROS was done and she denied all. No acute issues were reported by nursing and patient has remained afebrile. Exam/Review of Systems Exam Vitals Vital Signs Date Temp Pulse Resp B/P (MAP) Pulse Ox O2 O2 Flow FiO2 Time Delivery Rate 07/29/18 98.3 84 18 115/54 98 Room Air 11:58 (74) Intake and Output 07/28/18 07/28/18 07/29/18 1515:00 23:00 07:00 IntakeIntake Total 900 ml 700 ml OutputOutput Total 111 ml 250 ml BalanceBalance 789 ml 450 ml Allergies Coded Allergies iodine (Verified Allergy, Unknown, 07/29/18) . Exam Constitutional: alert, oriented, well developed, other (sitting up in bed smiling and playing a game on an ipad) Psych: no complaints, nl mood/affect Head: normocephalic, atraumatic Eyes: nl conjunctiva, nl lids, nl sclera ENMT: nl external ears & nose, nl nasal mucosa & septum, mucosa pink and moist (no thrush) Neck: supple, non-tender Respiratory: clear to auscultation, normal air movement; No labored breathing, No wheezing Cardiovascular: regular rate and rhythm, nl pulses Gastrointestinal: soft, non-tender, bowel sounds (normoactive); No distended, No tender Genitourinary - Female: other (F/c draining yellow hazy urine but appears slightly more clear than since last assessment) Musculoskeletal: nl extremities to inspection Extremities: normal pulses; No edema Neurological: PLASTIC OUTFITTER II-XII intact, nl mental status, nl speech, nl strength Skin: nl turgor; No rash or lesions Results Result Diagram: 07/29/18 0604 07/28/18 0736 Results 24hrs Laboratory Tests Test 07/29/18 06:04 White Blood Count 4.4 L Red Blood Count 2.84 L Hemoglobin 8.8 L Hematocrit 27.5 L Mean Corpuscular Volume 96.8 Mean Corpuscular Hemoglobin 31.0 Mean Corpuscular Hemoglobin Concent 32.0 Red Cell Distribution Width 15.8 H Platelet Count 244 Mean Platelet Volume 9.5 Immature Granulocytes % 1.100 H Neutrophils % 59.3 Lymphocytes % 29.1 Monocytes % 8.2 Eosinophils % 1.6 Basophils % 0.7 Nucleated Red Blood Cells % 0.0 Immature Granulocytes # 0.050 H Neutrophils # 2.6 Lymphocytes # 1.3 Monocytes # 0.4 Eosinophils # 0.1 Basophils # 0.0 Nucleated Red Blood Cells # 0.0 Imaging Imaging CXR 07/29/18 IMPRESSION: 1. Findings suggestive of pulmonary vascular congestion with small bilateral pleural effusions. No significant interval change. 2. Right mid lung interstitial opacities, may reflect atelectasis, edema or pneumonia, also unchanged. 3. Severe cardiomegaly. 3. Tubes and lines, as described above. Medications Medication Current Medications Levothyroxine Sodium (Synthroid) 50 mcg BEFORE BREAKFAST PO Last administered on 07/29/18 06:00; Admin Dose 50 MCG; Start 05/30/18 at 07:00 Mometasone Furoate (Asmanex) 1 puff DAILY INH Last administered on 07/29/18 08:34; Admin Dose 1 PUFF; Start 05/29/18 at 11:00 Atorvastatin Calcium (Lipitor) 10 mg DAILY@21 PO Last administered on 07/28/18 21:26; Admin Dose 10 MG; Start 05/29/18 at 21:00 Latanoprost (Xalatan) 1 drop HS BOTH EYES Last administered on 07/28/18 21:27; Admin Dose 1 DROP; Start 06/01/18 at 21:00 Amlodipine Besylate (Norvasc) 5 mg DAILY PO ; Start 06/03/18 at 09:00; Status Hold Pantoprazole (Protonix Tab) 40 mg DAILY@06 PO Last administered on 07/29/18 05:58; Admin Dose 40 MG; Start 06/05/18 at 06:00 Metoclopramide HCl (Reglan) 5 mg TID PRN IV Nausea; Start 06/06/18 at 11:00 Polyethylene Glycol (Miralax) 17 gm BID PRN PO CONSTIPATION; Start 06/06/18 at 14:00 Bisacodyl (Dulcolax Supp) 10 mg DAILY PRN [place] CONSTIPATION; Start 06/06/18 at 14:00 IV Flush (NS 10 ml) 10 ml PRN PRN IV IV PROTOCOL; Start 06/06/18 at 16:00 Nystatin (Nystatin Susp) 5 ml QID PO Last administered on 07/29/18 08:35; Admin Dose 5 ML; Start 06/06/18 at 17:00 Ferrous Sulfate (Ferrous Sulfate (Ec)) 325 mg BID PO Last administered on 07/29/18 08:36; Admin Dose 325 MG; Start 07/09/18 at 09:30 Docusate Sodium (Colace) 100 mg DAILY PO Last administered on 07/29/18 08:35; Admin Dose 100 MG; Start 07/10/18 at 09:00 Acetaminophen (Tylenol Tab) 650 mg Q6H PRN PO MILD PAIN(1-3)OR ELEVATED TEMP Last administered on 07/14/18 21:04; Admin Dose 650 MG; Start 07/14/18 at 21:00 Bumetanide (Bumex) 1 mg DAILY PO Last administered on 07/29/18 08:35; Admin Dose 1 MG; Start 07/15/18 at 09:00 Amiodarone HCl (Cordarone) 200 mg DAILY PO Last administered on 07/29/18 08:37; Admin Dose 200 MG; Start 07/23/18 at 09:00 Metoprolol Tartrate (Lopressor) 12.5 mg BID PO Last administered on 07/29/18 08:36; Admin Dose 12.5 MG; Start 07/25/18 at 21:00 Potassium Chloride (Klor-Con 10) 20 meq DAILY PO Last administered on 07/29/18 08:35; Admin Dose 20 MEQ; Start 07/27/18 at 09:00 Warfarin Sodium (Coumadin) 5 mg DAILY@17 PO Last administered on 07/28/18at 17:39; Admin Dose 5 MG; Start 07/27/18 at 17:00 Levalbuterol (Xopenex Neb) 1.25 mg Q6H RESP THERAPY HHN ; Start 07/29/18 at 14:00 Albuterol/ Ipratropium (Duoneb) 3 ml Q6H RESP THERAPY PRN HHN SHORTNESS OF BREATH; Start 07/29/18 at 12:00; Status WILIAM ADAM NP Jul 29, 2018 12:25
[2018-07-29] MEDS ORDERED: LEVALBUTEROL (NEB) 1.25 MG/0.5 ML AMP HHN SCH ×3 (14:00→21:37)
--- NOTE | 2018-07-29 15:50 | CONS ---
DATE OF ADMISSION: 05/28/2018 DATE OF CONSULTATION: TYPE OF CONSULTATION: Pulmonary REASON FOR CONSULTATION: Shortness of breath. Thank you, Dr. Valentin, for this consultation. HISTORY OF PRESENT ILLNESS: This is a 63-year-old lady with extensive admission to [facility], complicated by: 1. 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 2. Recurrent urosepsis with hypotension. The patient has been clinically improving pending transfer or discharge, apparently had worsening shortness of breath yesterday and this morning. Upon review by myself patient remains stable with no respiratory distress. She had no accessory muscle use. Vit al signs were within normal limits. PAST MEDICAL HISTORY: 1. Hematuria as stated. 2. Polymicrobial urinary tract infection: 3. History of liver cirrhosis. 4. History of left heart cardiac catheterization. 5. Mitral valve replacement on anticoagulation. MEDICATIONS: Per chart. ALLERGIES: None. SOCIAL HISTORY: Nonsmoker, no alcohol, no history of drug use. FAMILY HISTORY: Noncontributory. SYSTEMS REVIEW: A 12-point review of systems was negative other than mentioned above. NECK: Supple. No JVD or lymphadenopathy. CARDIAC: S1, S2, no added sounds or murmurs. CHEST: Diminished air entry bilaterally. ABDOMEN: Soft, nontender. No guarding or rebound. EXTREMITIES: No cyanosis, clubbing or edema. NEUROLOGIC: Generalized weakness, but no focal deficits. LABORATORY DATA: White count 4.4, hemoglobin 8.8, platelets of 224. Chemistry: BUN 22, creatinine 0.64. INR was 2.82. DIAGNOSTIC DATA: Chest x-ray from today showed mild congestive cardiac failure. IMPRESSION AND PLAN: 1. Transient dyspnea likely secondary to volume overload. 2. Chronic interstitial opacities and atelectasis on chest x-ray. 3. Severe cardiomyopathy with a history of valvular heart disease. 4. Intra-abdominal fissure is noted. PLAN: From pulmonary standpoint the patient can be transferred to a tertiary care facility as per pr imary team. Currently, he should continue with anticoagulation, diuresis if tolerated and aspiration precautions. Dictated By: JHON PATEL MD SV/SAVANNAH Conf#: [id number] DID#: [id number] CC: CHRIS LAZAR MD; JULY VALENTIN MD;*EndCC*
--- NOTE | 2018-07-29 16:34 | CONS ---
Assessment/Plan Assessment/Plan Hospital Course (Demo Recall) IMP: 1.cad s/p C with no sig obstructive cad. Mildly depressed LVEF--40-45% ? nonischemic process 2.HTN 3.RP Bleed s/p transfusions now stable and tolerating heparin/coumadin loading. Then had recurrent bled overnight now s/p covered stent to CHANNEL CEMENTER/Ext iliac. stable. No further abd pain, s/p pigtail catheter drainage 5.MVR-mechanical 6.anemia- s/p repair of R CHANNEL CEMENTER/illiac. Had hemoptysis with subsequent drop in Hgb again and holding of heparin. Had some mild blood tinged sputum 7.Hypothyroid 8. FOURNIER-negative Head CT 9. Fevers-resolved 10. UTI-Being followed by ID and on abx 11.ARF-? Contrast induced/compression from hematoma- now improving with increased urine output and slowly decreasing glaucoma specialist 12. Coagulopathy-downtrenede and resumed on couamadin with midly subtherapeutic INR 14. LE weakness-? compression from hematoma and exacerbated by femoral compression after cath-now resolved 15. arterial insuff- LLE- s/p SALES PROMOTER/thrombolysis 06/04 successfully with palpable pulses/B DP/PT and remain that way 16. PAF/AFL-rate controlled with at times conversion to SR 17. 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 Now decreasing hematuria. s/p pelvic CT revealing ongoing fistula and per urology note was discussed with family 18. Epistaxis-improved/resolved. no recurrence 19. 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 ? new , ? etiology. Urology following and per his note has discussed treatment options with family including surgical versus waiting and thinks that closure would be best per notes at this time, Family discussed possible transfer to [facility] for procedure as necessary and insurance did not accept and thus will follow-up at [facility] as scheduled outpatient Recc: -Now on tele -Continue BB with well controlled Hr's -Continue statin -s/p course of abx's -ongoing ID f/u -F/U glaucoma specialist/K closely with creatnine now normalized and volume status improving on bumex bid. Will also assess patient's PO intake and possible contribution to volume overload -Follow HGb closely which has been stable to improved actually -PT/ambulation- doing 3x/day -will continue amio daily for now and follow rhythm clsoely with patient having episodes of PAF/AFL but always rate controlled -Urology following with findings of apparent bladder fistula and thus draining of the hematoma through the bladder causing hematuria which has improved and now apparent bladder-vaginal fistula.Continue to follow hematuria for complete resolution and assess need for spontaneous closure versus need for repair which has been discussed with family and urology and between them as well. ? necessity of closing fistula and d/c'ing vincent at this time given clarity of urine/resolution of hematuria but have discussed with urology and states bladder must remain decompressed until closure of fistula with vincent in place. Family intereseted in laparoscopic approach as possible versus open, Have been offered open repair by urology here. Case managementhas been attempting transfer to tertiary care center [facility] but has not been accepted. Possible d/c with indwelling vincent and outpatient f/u at [facility] -Now back on coumadin with therapeutic INR -Continue current bumex now daily PO again and will give extra dose to assure good volume status given cxr with mild PVC from today Consultation Date/Type/Reason Admit Date/Time May 28, 2018 at 17:52 Initial Consult Date 05/28/18 Type of Consult Cardiology Reason for Consultation MVR Requesting Provider: JULY VALENTIN MD Date/Time of Note DATE: 07/29/18 TIME: 16:30 Exam/Review of Systems Vital Signs Vitals Vital Signs Date Temp Pulse Resp B/P (MAP) Pulse Ox O2 O2 Flow FiO2 Time Delivery Rate 07/29/18 85 16:23 07/29/18 97.5 15 106/59 98 Room Air 16:09 (75) Intake and Output 07/28/18 07/28/18 07/29/18 1515:00 23:00 07:00 IntakeIntake Total 900 ml 700 ml OutputOutput Total 111 ml 250 ml BalanceBalance 789 ml 450 ml Exam Exam Review of Systems: CONSTITUTIONAL: No fevers, chills. PULMONARY: No sob CARDIOVASCULAR: No chest pain/palpitations GASTROINTESTINAL: No nausea/vomiting. GENITOURINARY: No hematuria/dysuria. MUSCULOSKELETAL: No myagias/arthalgias. PSYCHIATRIC: The patient denies depression. NEUROLOGIC: No weakness Constitutional: alert Psych: no complaints Head: normocephalic ENMT: mucosa pink and moist Neck: supple, jvd (9 cm water) Respiratory: clear to auscultation Cardiovascular: regular rate and rhythm Gastrointestinal: soft, non-tender Musculoskeletal: muscle tone (normal) Extremities: edema (none) Neurological: other (No focal deficits) Labs Result Diagram: 07/29/18 0604 07/28/18 0736 Results 24hrs Laboratory Tests Test 07/29/18 06:04 White Blood Count 4.4 L Red Blood Count 2.84 L Hemoglobin 8.8 L Hematocrit 27.5 L Mean Corpuscular Volume 96.8 Mean Corpuscular Hemoglobin 31.0 Mean Corpuscular Hemoglobin Concent 32.0 Red Cell Distribution Width 15.8 H Platelet Count 244 Mean Platelet Volume 9.5 Immature Granulocytes % 1.100 H Neutrophils % 59.3 Lymphocytes % 29.1 Monocytes % 8.2 Eosinophils % 1.6 Basophils % 0.7 Nucleated Red Blood Cells % 0.0 Immature Granulocytes # 0.050 H Neutrophils # 2.6 Lymphocytes # 1.3 Monocytes # 0.4 Eosinophils # 0.1 Basophils # 0.0 Nucleated Red Blood Cells # 0.0 Medications Medications Current Medications Levothyroxine Sodium (Synthroid) 50 mcg BEFORE BREAKFAST PO Last administered on 07/29/18at 06:00; Admin Dose 50 MCG; Start 05/30/18 at 07:00 Mometasone Furoate (Asmanex) 1 puff DAILY INH Last administered on 07/29/18at 08:34; Admin Dose 1 PUFF; Start 05/29/18 at 11:00 Atorvastatin Calcium (Lipitor) 10 mg DAILY@21 PO Last administered on 07/28/18at 21:26; Admin Dose 10 MG; Start 05/29/18 at 21:00 Latanoprost (Xalatan) 1 drop HS BOTH EYES Last administered on 07/28/18at 21:27; Admin Dose 1 DROP; Start 06/01/18 at 21:00 Amlodipine Besylate (Norvasc) 5 mg DAILY PO ; Start 06/03/18 at 09:00; Status Hold Pantoprazole (Protonix Tab) 40 mg DAILY@06 PO Last administered on 07/29/18at 05:58; Admin Dose 40 MG; Start 06/05/18 at 06:00 Metoclopramide HCl (Reglan) 5 mg TID PRN IV Nausea; Start 06/06/18 at 11:00 Polyethylene Glycol (Miralax) 17 gm BID PRN PO CONSTIPATION; Start 06/06/18 at 14:00 Bisacodyl (Dulcolax Supp) 10 mg DAILY PRN [place] CONSTIPATION; Start 06/06/18 at 14:00 IV Flush (NS 10 ml) 10 ml PRN PRN IV IV PROTOCOL; Start 06/06/18 at 16:00 Nystatin (Nystatin Susp) 5 ml QID PO Last administered on 07/29/18 12:58; Admin Dose 5 ML; Start 06/06/18 at 17:00 Ferrous Sulfate (Ferrous Sulfate (Ec)) 325 mg BID PO Last administered on 07/29/18 08:36; Admin Dose 325 MG; Start 07/09/18 at 09:30 Docusate Sodium (Colace) 100 mg DAILY PO Last administered on 07/29/18 08:35; Admin Dose 100 MG; Start 07/10/18 at 09:00 Acetaminophen (Tylenol Tab) 650 mg Q6H PRN PO MILD PAIN(1-3)OR ELEVATED TEMP Last administered on 07/14/18 21:04; Admin Dose 650 MG; Start 07/14/18 at 21:00 Bumetanide (Bumex) 1 mg DAILY PO Last administered on 07/29/18 08:35; Admin Dose 1 MG; Start 07/15/18 at 09:00 Amiodarone HCl (Cordarone) 200 mg DAILY PO Last administered on 07/29/18 08:37; Admin Dose 200 MG; Start 07/23/18 at 09:00 Metoprolol Tartrate (Lopressor) 12.5 mg BID PO Last administered on 07/29/18 08:36; Admin Dose 12.5 MG; Start 07/25/18 at 21:00 Potassium Chloride (Klor-Con 10) 20 meq DAILY PO Last administered on 07/29/18 08:35; Admin Dose 20 MEQ; Start 07/27/18 at 09:00 Warfarin Sodium (Coumadin) 5 mg DAILY@17 PO Last administered on 07/28/18 17:39; Admin Dose 5 MG; Start 07/27/18 at 17:00 Levalbuterol (Xopenex Neb) 1.25 mg Q6H RESP THERAPY HHN ; Start 07/29/18 at 14:00 Albuterol/ Ipratropium (Duoneb) 3 ml Q6H RESP THERAPY PRN HHN SHORTNESS OF BREATH; Start 07/29/18 at 12:00 CHRIS LAZAR Jul 29, 2018 16:34
[2018-07-29] MEDS ORDERED: BUMETANIDE 1 MG INJ IV ONE (17:00)
[2018-07-29] MEDS: WARFARIN 3 MG TAB PO SCH (17:28)
[2018-07-29] MEDS: ATORVASTATIN 10 MG TAB PO SCH (20:20)
[2018-07-29] MEDS: LATANOPROST 0.005% 2.5 ML OPH BOTH EYES SCH (20:20)
[2018-07-30] VITALS (11 sets, daily range): BP systolic 106–131; BP diastolic 52–61; PULSE 76–86; RESP 16–20
[2018-07-30] MEDS: LEVALBUTEROL (NEB) 1.25 MG/0.5 ML AMP HHN SCH ×4 (02:00→20:43)
[2018-07-30] MEDS: PANTOPRAZOLE (EC) 40 MG TAB PO SCH (05:34)
[2018-07-30] MEDS: LEVOTHYROXINE 50 MCG TAB PO SCH (05:34)
[2018-07-30] MEDS: NYSTATIN SUSP 5 ML CUP PO SCH ×4 (09:42→20:35)
[2018-07-30] MEDS: MOMETASONE 0.24 GM INHALER INH SCH (09:42)
[2018-07-30] MEDS: DOCUSATE SODIUM 100 MG CAP PO SCH (09:42)
[2018-07-30] MEDS: POTASSIUM CHLORIDE (SR) 10 MEQ TAB PO SCH (09:42)
[2018-07-30] MEDS: BUMETANIDE 1 MG TAB PO SCH (09:42)
[2018-07-30] MEDS: FERROUS SULFATE (EC) 325 MG TAB PO SCH ×2 (09:43→20:35)
[2018-07-30] MEDS: AMIODARONE 200 MG TAB PO SCH (09:43)
[2018-07-30] MEDS: METOPROLOL 25 MG TAB PO SCH ×2 (09:44→20:36)
--- NOTE | 2018-07-30 09:58 | CONS ---
Assessment/Plan Assessment/Plan Assessment/Plan (Daily) Assessment and recommendations; 1. Patient with hypoxemia likely due to volume overload and CHF exacerbation with significant interval improvement. Currently on room air with adequate O2 saturation. 2. Underlying cardiomyopathy. 3. History of CABG. 4. Anemia. 5. History of hypertension and hypothyroidism. 6. History of cardiac arrhythmia. Continue current supportive care. Patient doing very well. Consider discharge. Consultation Date/Type/Reason Admit Date/Time May 28, 2018 at 17:52 Initial Consult Date 06/03/18 Type of Consult Pulmonary Reason for Consultation Patient's condition is significantly improved. Denies any shortness of breath, chest pain, coughing, wheezing. General exam; elderly lady, awake and alert. Sitting in a chair by bedside. Currently in no distress. Requesting Provider: JULY VALENTIN MD Date/Time of Note DATE: 07/30/18 TIME: 09:56 Exam/Review of Systems Exam Vitals Vital Signs Date Temp Pulse Resp B/P (MAP) Pulse Ox O2 O2 Flow FiO2 Time Delivery Rate 07/30/18 79 08:01 07/30/18 98.0 18 113/55 98 Room Air 07:33 (74) Intake and Output 07/29/18 07/29/18 07/30/18 1414:59 22:59 06:59 IntakeIntake Total 600 ml 600 ml OutputOutput Total 400 ml 350 ml BalanceBalance 200 ml 250 ml Exam H EENT exam; supple neck, no JVD. No lymphadenopathy. Midline trachea. No thyromegaly. Patient has good dentition. No neck masses. Chest exam; clear to auscultation. S1-S2 audible, no murmurs. There is a well- healed sternal scar. Abdomen exam; soft, nontender. No organomegaly. Bowel sounds audible. Extremity exam; no peripheral edema or clubbing. 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 Results Result Diagram: 07/30/18 0613 07/30/18 0613 Results 24hrs Laboratory Tests Test 07/30/18 06:13 White Blood Count 5.2 Red Blood Count 2.90 L Hemoglobin 9.2 L Hematocrit 27.9 L Mean Corpuscular Volume 96.2 Mean Corpuscular Hemoglobin 31.7 Mean Corpuscular Hemoglobin Concent 33.0 Red Cell Distribution Width 15.8 H Platelet Count 259 Mean Platelet Volume 9.3 Immature Granulocytes % 1.000 H Neutrophils % 59.8 Lymphocytes % 29.4 Monocytes % 7.5 Eosinophils % 1.7 Basophils % 0.6 Nucleated Red Blood Cells % 0.0 Immature Granulocytes # 0.050 H Neutrophils # 3.1 Lymphocytes # 1.5 Monocytes # 0.4 Eosinophils # 0.1 Basophils # 0.0 Nucleated Red Blood Cells # 0.0 Prothrombin Time 38.6 #H Prothrombin Time Ratio 3.0 INR International Normalized Ratio 3.95 Sodium Level 138 Potassium Level 3.3 L Chloride Level 101 Carbon Dioxide Level 30 Anion Gap 7 Blood Urea Nitrogen 21 H Creatinine 0.71 Est Glomerular Filtrat Rate mL/min > 60 Glucose Level 126 Calcium Level 9.5 Medications Medication Current Medications Levothyroxine Sodium (Synthroid) 50 mcg BEFORE BREAKFAST PO Last administered on 07/30/18at 05:34; Admin Dose 50 MCG; Start 05/30/18 at 07:00 Mometasone Furoate (Asmanex) 1 puff DAILY INH Last administered on 07/30/18at 09:42; Admin Dose 1 PUFF; Start 05/29/18 at 11:00 Atorvastatin Calcium (Lipitor) 10 mg DAILY@21 PO Last administered on 07/29/18at 20:20; Admin Dose 10 MG; Start 05/29/18 at 21:00 Latanoprost (Xalatan) 1 drop HS BOTH EYES Last administered on 07/29/18at 20:20; Admin Dose 1 DROP; Start 06/01/18 at 21:00 Amlodipine Besylate (Norvasc) 5 mg DAILY PO ; Start 06/03/18 at 09:00; Status Hold Pantoprazole (Protonix Tab) 40 mg DAILY@06 PO Last administered on 07/30/18 05:34; Admin Dose 40 MG; Start 06/05/18 at 06:00 Metoclopramide HCl (Reglan) 5 mg TID PRN IV Nausea; Start 06/06/18 at 11:00 Polyethylene Glycol (Miralax) 17 gm BID PRN PO CONSTIPATION; Start 06/06/18 at 14:00 Bisacodyl (Dulcolax Supp) 10 mg DAILY PRN [place] CONSTIPATION; Start 06/06/18 at 14:00 IV Flush (NS 10 ml) 10 ml PRN PRN IV IV PROTOCOL; Start 06/06/18 at 16:00 Nystatin (Nystatin Susp) 5 ml QID PO Last administered on 07/30/18 09:42; Adm in Dose 5 ML; Start 06/06/18 at 17:00 Ferrous Sulfate (Ferrous Sulfate (Ec)) 325 mg BID PO Last administered on 07/30/18 09:43; Admin Dose 325 MG; Start 07/09/18 at 09:30 Docusate Sodium (Colace) 100 mg DAILY PO Last administered on 07/30/18 09:42; Admin Dose 100 MG; Start 07/10/18 at 09:00 Acetaminophen (Tylenol Tab) 650 mg Q6H PRN PO MILD PAIN(1-3)OR ELEVATED TEMP Last administered on 07/14/18 21:04; Admin Dose 650 MG; Start 07/14/18 at 21:00 Bumetanide (Bumex) 1 mg DAILY PO Last administered on 07/30/18 09:42; Admin Dose 1 MG; Start 07/15/18 at 09:00 Amiodarone HCl (Cordarone) 200 mg DAILY PO Last administered on 07/30/18 09:43; Admin Dose 200 MG; Start 07/23/18 at 09:00 Metoprolol Tartrate (Lopressor) 12.5 mg BID PO Last administered on 07/30/18 09:44; Admin Dose 12.5 MG; Start 07/25/18 at 21:00 Potassium Chloride (Klor-Con 10) 20 meq DAILY PO Last administered on 07/30/18 09:42; Admin Dose 20 MEQ; Start 07/27/18 at 09:00 Warfarin Sodium (Coumadin) 5 mg DAILY@17 PO Last administered on 07/29/18 17:28; Admin Dose 5 MG; Start 07/27/18 at 17:00 Albuterol/ Ipratropium (Duoneb) 3 ml Q6H RESP THERAPY PRN HHN SHORTNESS OF BREATH; Start 07/29/18 at 12:00 Levalbuterol (Xopenex Neb) 1.25 mg Q6H RESP THERAPY HHN ; Start 07/30/18 at 02:00 TORREY THORPE Jul 30, 2018 09:58
--- NOTE | 2018-07-30 11:02 | CONS ---
Assessment/Plan Assessment/Plan Assessment/Plan (Daily) 1. Nonoliguric acute kidney injury with previously normal baseline creatinine. Etiology of acute kidney injury is secondary to acute tubular necrosis. Renal function is improved. Continue to monitor. 2. 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 The patient's hematuria has resolved. Continue to monitor. 3. Volume overload, improved. Continue current diuretic regimen. 4. Hypokalemia. We will continue to monitor and replete with potassium chloride. 5. Anemia. Continue to monitor hemoglobin and hematocrit levels. 6. Mechanical heart valve. Continue anticoagulation. 7. Sepsis secondary to urinary tract infection. The patient is completing antibiotic course. 8. Hypothyroidism. Continue Synthroid. 9. Dyslipidemia. Continue statin therapy. 10. Hypertension. Continue current blood pressure regimen. 11. History of liver cirrhosis. 12. Status post urinary tract infection. Consultation Date/Type/Reason Admit Date/Time May 28, 2018 at 17:52 Initial Consult Date 06/03/18 Requesting Provider: JULY VALENTIN MD Date/Time of Note DATE: 07/30/18 TIME: 11:02 24 HR Interval Summary Free Text/Dictation denies shortness of breath, n/v or urinary issues d.w rn gen nad cv rrr pulm ctab abd soft, nd, nt +bs ext: no edema Exam/Review of Systems Exam Vitals Vital Signs Date Temp Pulse Resp B/P (MAP) Pulse Ox O2 O2 Flow FiO2 Time Delivery Rate 07/30/18 79 08:01 07/30/18 98.0 18 113/55 98 Room Air 07:33 (74) Intake and Output 07/29/18 07/29/18 07/30/18 1515:00 23:00 07:00 IntakeIntake Total 600 ml 600 ml OutputOutput Total 400 ml 350 ml BalanceBalance 200 ml 250 ml Results Result Diagram: 07/30/18 0613 07/30/18 0613 Results 24hrs Laboratory Tests Test 07/30/18 06:13 White Blood Count 5.2 Red Blood Count 2.90 L Hemoglobin 9.2 L Hematocrit 27.9 L Mean Corpuscular Volume 96.2 Mean Corpuscular Hemoglobin 31.7 Mean Corpuscular Hemoglobin Concent 33.0 Red Cell Distribution Width 15.8 H Platelet Count 259 Mean Platelet Volume 9.3 Immature Granulocytes % 1.000 H Neutrophils % 59.8 Lymphocytes % 29.4 Monocytes % 7.5 Eosinophils % 1.7 Basophils % 0.6 Nucleated Red Blood Cells % 0.0 Immature Granulocytes # 0.050 H Neutrophils # 3.1 Lymphocytes # 1.5 Monocytes # 0.4 Eosinophils # 0.1 Basophils # 0.0 Nucleated Red Blood Cells # 0.0 Prothrombin Time 38.6 #H Prothrombin Time Ratio 3.0 INR International Normalized Ratio 3.95 Sodium Level 138 Potassium Level 3.3 L Chloride Level 101 Carbon Dioxide Level 30 Anion Gap 7 Blood Urea Nitrogen 21 H Creatinine 0.71 Est Glomerular Filtrat Rate mL/min > 60 Glucose Level 126 Calcium Level 9.5 Medications Medication Current Medications Levothyroxine Sodium (Synthroid) 50 mcg BEFORE BREAKFAST PO Last administered on 07/30/18 05:34; Admin Dose 50 MCG; Start 05/30/18 at 07:00 Mometasone Furoate (Asmanex) 1 puff DAILY INH Last administered on 07/30/18 09:42; Admin Dose 1 PUFF; Start 05/29/18 at 11:00 Atorvastatin Calcium (Lipitor) 10 mg DAILY@21 PO Last administered on 07/29/18 20:20; Admin Dose 10 MG; Start 05/29/18 at 21:00 Latanoprost (Xalatan) 1 drop HS BOTH EYES Last administered on 07/29/18 20:20; Admin Dose 1 DROP; Start 06/01/18 at 21:00 Amlodipine Besylate (Norvasc) 5 mg DAILY PO ; Start 06/03/18 at 09:00; Status Hold Pantoprazole (Protonix Tab) 40 mg DAILY@06 PO Last administered on 07/30/18 05:34; Admin Dose 40 MG; Start 06/05/18 at 06:00 Metoclopramide HCl (Reglan) 5 mg TID PRN IV Nausea; Start 06/06/18 at 11:00 Polyethylene Glycol (Miralax) 17 gm BID PRN PO CONSTIPATION; Start 06/06/18 at 14:00 Bisacodyl (Dulcolax Supp) 10 mg DAILY PRN [place] CONSTIPATION; Start 06/06/18 at 14:00 IV Flush (NS 10 ml) 10 ml PRN PRN IV IV PROTOCOL; Start 06/06/18 at 16:00 Nystatin (Nystatin Susp) 5 ml QID PO Last administered on 07/30/18 09:42; Admin Dose 5 ML; Start 06/06/18 at 17:00 Ferrous Sulfate (Ferrous Sulfate (Ec)) 325 mg BID PO Last administered on 07/30/18 09:43; Admin Dose 325 MG; Start 07/09/18 at 09:30 Docusate Sodium (Colace) 100 mg DAILY PO Last administered on 07/30/18 09:42; Admin Dose 100 MG; Start 07/10/18 at 09:00 Acetaminophen (Tylenol Tab) 650 mg Q6H PRN PO MILD PAIN(1-3)OR ELEVATED TEMP Last administered on 07/14/18 21:04; Admin Dose 650 MG; Start 07/14/18 at 21:00 Bumetanide (Bumex) 1 mg DAILY PO Last administered on 07/30/18 09:42; Admin Dose 1 MG; Start 07/15/18 at 09:00 Amiodarone HCl (Cordarone) 200 mg DAILY PO Last administered on 07/30/18 09:43; Admin Dose 200 MG; Start 07/23/18 at 09:00 Metoprolol Tartrate (Lopressor) 12.5 mg BID PO Last administered on 07/30/18 09:44; Admin Dose 12.5 MG; Start 07/25/18 at 21:00 Potassium Chloride (Klor-Con 10) 20 meq DAILY PO Last administered on 07/30/18 09:42; Admin Dose 20 MEQ; Start 07/27/18 at 09:00 Warfarin Sodium (Coumadin) 5 mg DAILY@17 PO Last administered on 07/29/18 17:28; Admin Dose 5 MG; Start 07/27/18 at 17:00 Albuterol/ Ipratropium (Duoneb) 3 ml Q6H RESP THERAPY PRN HHN SHORTNESS OF BREATH; Start 07/29/18 at 12:00 Levalbuterol (Xopenex Neb) 1.25 mg Q6H RESP THERAPY HHN ; Start 07/30/18 at 02:00 ALTA BUSTAMANTE MD Jul 30, 2018 11:02
--- NOTE | 2018-07-30 12:26 | PN ---
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 Continue Mensah, monitor. Dr. Ashford is following in urology consultation. -Polymicrobial UTI, completed treatment with abx. Dr. Hughes is following in infection disease consultation. -Anemia of acute blood loss, transfuse PRN, monitor H&H. 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 -S/p Nose/oropharyngeal bleed on 06/11/2018, stopped after heparin was held. -Retroperitoneal bleed secondary to vascular injury status post stent placement. S/p CT guided placement of drainage catheter into pelvic hematoma on 06/05/18 and sequent removal. -Status post left heart catheterization with no significant obstructive coronary artery disease by Dr. Moreno on 05/27/2018. -Anemia of acute blood loss, status post blood transfusion, continue to monitor hemoglobin and hematocrit. -Urinary incontinence. -Acute illness myopathy -Status post mitral valve replacement with mechanical valve in 1999. Continue Coumadin, monitor PT/INR. -HTN, continue metoprolol -Hyperlipidemia -Hypothyroidism, continue levothyroxine -History of asthma Result Diagram: 07/30/18 0613 07/30/18 0613 Results 24hrs Laboratory Tests Test 07/30/18 06:13 White Blood Count 5.2 Red Blood Count 2.90 L Hemoglobin 9.2 L Hematocrit 27.9 L Mean Corpuscular Volume 96.2 Mean Corpuscular Hemoglobin 31.7 Mean Corpuscular Hemoglobin Concent 33.0 Red Cell Distribution Width 15.8 H Platelet Count 259 Mean Platelet Volume 9.3 Immature Granulocytes % 1.000 H Neutrophils % 59.8 Lymphocytes % 29.4 Monocytes % 7.5 Eosinophils % 1.7 Basophils % 0.6 Nucleated Red Blood Cells % 0.0 Immature Granulocytes # 0.050 H Neutrophils # 3.1 Lymphocytes # 1.5 Monocytes # 0.4 Eosinophils # 0.1 Basophils # 0.0 Nucleated Red Blood Cells # 0.0 Prothrombin Time 38.6 #H Prothrombin Time Ratio 3.0 INR International Normalized Ratio 3.95 Sodium Level 138 Potassium Level 3.3 L Chloride Level 101 Carbon Dioxide Level 30 Anion Gap 7 Blood Urea Nitrogen 21 H Creatinine 0.71 Est Glomerular Filtrat Rate mL/min > 60 Glucose Level 126 Calcium Level 9.5 Subjective 24 Hr Interval Summary Free Text/Dictation Patient has no complaints, denies any pain Exam/Review of Systems Exam Vitals Vital Signs Date Temp Pulse Resp B/P (MAP) Pulse Ox O2 O2 Flow FiO2 Time Delivery Rate 07/30/18 98.0 82 18 117/58 97 Room Air 11:28 (77) Intake and Output 07/29/18 07/29/18 07/30/18 1515:00 23:00 07:00 IntakeIntake Total 600 ml 600 ml OutputOutput Total 400 ml 350 ml BalanceBalance 200 ml 250 ml Constitutional: well developed Head: normocephalic, atraumatic Neck: supple Respiratory: clear to auscultation Cardiovascular: regular rate and rhythm Gastrointestinal: soft, non-tender Extremities: normal pulses Results Results 24hrs Laboratory Tests Test 07/30/18 06:13 White Blood Count 5.2 Red Blood Count 2.90 L Hemoglobin 9.2 L Hematocrit 27.9 L Mean Corpuscular Volume 96.2 Mean Corpuscular Hemoglobin 31.7 Mean Corpuscular Hemoglobin Concent 33.0 Red Cell Distribution Width 15.8 H Platelet Count 259 Mean Platelet Volume 9.3 Immature Granulocytes % 1.000 H Neutrophils % 59.8 Lymphocytes % 29.4 Monocytes % 7.5 Eosinophils % 1.7 Basophils % 0.6 Nucleated Red Blood Cells % 0.0 Immature Granulocytes # 0.050 H Neutrophils # 3.1 Lymphocytes # 1.5 Monocytes # 0.4 Eosinophils # 0.1 Basophils # 0.0 Nucleated Red Blood Cells # 0.0 Prothrombin Time 38.6 #H Prothrombin Time Ratio 3.0 INR International Normalized Ratio 3.95 Sodium Level 138 Potassium Level 3.3 L Chloride Level 101 Carbon Dioxide Level 30 Anion Gap 7 Blood Urea Nitrogen 21 H Creatinine 0.71 Est Glomerular Filtrat Rate mL/min > 60 Glucose Level 126 Calcium Level 9.5 Medications Medication Current Medications Levothyroxine Sodium (Synthroid) 50 mcg BEFORE BREAKFAST PO Last administered on 07/30/18 05:34; Admin Dose 50 MCG; Start 05/30/18 at 07:00 Mometasone Furoate (Asmanex) 1 puff DAILY INH Last administered on 07/30/18 09:42; Admin Dose 1 PUFF; Start 05/29/18 at 11:00 Atorvastatin Calcium (Lipitor) 10 mg DAILY@21 PO Last administered on 07/29/18 20:20; Admin Dose 10 MG; Start 05/29/18 at 21:00 Latanoprost (Xalatan) 1 drop HS BOTH EYES Last administered on 07/29/18 20:20; Admin Dose 1 DROP; Start 06/01/18 at 21:00 Amlodipine Besylate (Norvasc) 5 mg DAILY PO ; Start 06/03/18 at 09:00; Status Hold Pantoprazole (Protonix Tab) 40 mg DAILY@06 PO Last administered on 07/30/18 05:34; Admin Dose 40 MG; Start 06/05/18 at 06:00 Metoclopramide HCl (Reglan) 5 mg TID PRN IV Nausea; Start 06/06/18 at 11:00 Polyethylene Glycol (Miralax) 17 gm BID PRN PO CONSTIPATION; Start 06/06/18 at 14:00 Bisacodyl (Dulcolax Supp) 10 mg DAILY PRN [place] CONSTIPATION; Start 06/06/18 at 14:00 IV Flush (NS 10 ml) 10 ml PRN PRN IV IV PROTOCOL; Start 06/06/18 at 16:00 Nystatin (Nystatin Susp) 5 ml QID PO Last administered on 07/30/18 09:42; Admin Dose 5 ML; Start 06/06/18 at 17:00 Ferrous Sulfate (Ferrous Sulfate (Ec)) 325 mg BID PO Last administered on 07/30/18 09:43; Admin Dose 325 MG; Start 07/09/18 at 09:30 Docusate Sodium (Colace) 100 mg DAILY PO Last administered on 07/30/18 09:42; Admin Dose 100 MG; Start 07/10/18 at 09:00 Acetaminophen (Tylenol Tab) 650 mg Q6H PRN PO MILD PAIN(1-3)OR ELEVATED TEMP Last administered on 4/4/19at 21:04; Admin Dose 650 MG; Start 07/14/18 at 21:00 Bumetanide (Bumex) 1 mg DAILY PO Last administered on 07/30/18 09:42; Admin Dose 1 MG; Start 07/15/18 at 09:00 Amiodarone HCl (Cordarone) 200 mg DAILY PO Last administered on 07/30/18 09:43; Admin Dose 200 MG; Start 07/23/18 at 09:00 Metoprolol Tartrate (Lopressor) 12.5 mg BID PO Last administered on 07/30/18at 09:44; Admin Dose 12.5 MG; Start 07/25/18 at 21:00 Potassium Chloride (Klor-Con 10) 20 meq DAILY PO Last administered on 07/30/18 09:42; Admin Dose 20 MEQ; Start 07/27/18 at 09:00 Warfarin Sodium (Coumadin) 5 mg DAILY@17 PO Last administered on 07/29/18at 17:28; Admin Dose 5 MG; Start 07/27/18 at 17:00 Albuterol/ Ipratropium (Duoneb) 3 ml Q6H RESP THERAPY PRN HHN SHORTNESS OF BREATH; Start 07/29/18 at 12:00 Levalbuterol (Xopenex Neb) 1.25 mg Q6H RESP THERAPY HHN ; Start 07/30/18 at 02:00 ABDIRASHID PRATHER Jul 30, 2018 12:26
--- NOTE | 2018-07-30 14:14 | CONS ---
[facility] Quyen Sexton Unit Number: [id number] Date of : 1955 Patient Status: Admitted Inpatient Attending Doctor: July Valentin MD Edit: SHARI MOLINA M.D. on 08/01/18 @ 04:51 Jesse: I discussed the management with FRACTIONATION SUPERVISOR and agree Assessment/Plan Assessment/Plan Hospital Course (Demo Recall) # sepsis, cardiopulmonary - S/p severe sepsis due to UTI, resolved - S/p SIRS due to acute blood loss, resolved - S/p L heart catheterization on 05/27/2018 showing no significant obstructive CAD - CAD - S/p CABG in [facility] in 1982 - H/o MVR with mechanical valve, in 1999 - Hypertension - PAF - Asthma # urology/renal, GI - Recurrent UTI on 07/15/2018 due to Citrobacter Freundii, Enterococcus species, MDR Enterobacter; s/p Zosyn->ertapenem - Hematuria caused by ruptured urinary bladder (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 - US Abdomen 07/18/18 showed Complex fluid collection about the anterior superior bladder measuring up to 10.0 x 8.6 x 7.2 cm. Bladder wall thickening. - Mensah was exchanged on 07/12/2018 and 07/14/2018 because her older catheter was leaking - S/p UTI due to hafnai alvei and pediococci on 06/30/18. Pt completed pip/tazo (07/02/18-07/05/2018) for this episode - S/p UTI due to E. coli. 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 - will continue to follow closely with you Plan was d/w patient, her at bedside, and with Dr. Molina. Thank you Consultation Date/Type/Reason Admit Date/Time May 28, 2018 at 17:52 Initial Consult Date 06/03/18 Type of Consult ID Requesting Provider: JULY VALENTIN MD Date/Time of Note DATE: 07/30/18 TIME: 14:13 24 HR Interval Summary Free Text/Dictation Patient's reports that patient is limping during ambulation on LLE. Sol ent states her "muscles weak." Denies pain. I encouraged BLE exercises while in bed for muscle strengthening. Detailed Summary Eyes: no complaints ENT: no complaints Respiratory: no complaints Cardiovascular: no complaints Gastrointestinal: no complaints Genitourinary: other (F/c) Musculoskeletal: other (muscle weakness, LLE) Skin: no complaints Neurologic: no complaints Endocrine: no complaints Lymphatic: no complaints Psychological: no complaints Immunologic: no complaints Exam/Review of Systems Exam Vitals Vital Signs Date Temp Pulse Resp B/P (MAP) Pulse Ox O2 O2 Flow FiO2 Time Delivery Rate 07/30/18 98.0 82 18 117/58 97 Room Air 11:28 (77) Intake and Output 07/29/18 07/29/1807/30/19 1515:00 23:00 07:00 IntakeIntake Total 600 ml 600 ml OutputOutput Total 400 ml 350 ml BalanceBalance 200 ml 250 ml Allergies Coded Allergies iodine (Verified Allergy, Unknown, 07/29/18) Exam Constitutional: alert, oriented, well developed, other (sitting up in bed smiling and playing a game on an ipad and watching TV) Psych: no complaints, nl mood/affect Head: normocephalic, atraumatic Eyes: nl conjunctiva, nl lids, nl sclera ENMT: nl external ears & nose, nl nasal mucosa & septum, mucosa pink and moist (no thrush) Neck: supple, non-tender Respiratory: clear to auscultation, normal air movement; No labored breathing, No wheezing Cardiovascular: regular rate and rhythm, nl pulses Gastrointestinal: soft, non-tender, bowel sounds (normoactive); No distended, No tender Genitourinary - Female: other (F/c draining yellow hazy urine) Musculoskeletal: nl extremities to inspection Extremities: normal pulses; No edema Neurological: MANAGER ENROLLMENT II-XII intact, nl mental status, nl speech, nl strength Skin: nl turgor; No rash or lesions Results Result Diagram: 07/30/18 0607/30/18 06 Results 24hrs Laboratory Tests Test 07/30/18 06:13 White Blood Count 5.2 Red Blood Count 2.90 L Hemoglobin 9.2 L Hematocrit 27.9 L Mean Corpuscular Volume 96.2 Mean Corpuscular Hemoglobin 31.7 Mean Corpuscular Hemoglobin Concent 33.0 Red Cell Distribution Width 15.8 H Platelet Count 259 Mean Platelet Volume 9.3 Immature Granulocytes % 1.000 H Neutrophils % 59.8 Lymphocytes % 29.4 Monocytes % 7.5 Eosinophils % 1.7 Basophils % 0.6 Nucleated Red Blood Cells % 0.0 Immature Granulocytes # 0.050 H Neutrophils # 3.1 Lymphocytes # 1.5 Monocytes # 0.4 Eosinophils # 0.1 Basophils # 0.0 Nucleated Red Blood Cells # 0.0 Prothrombin Time 38.6 #H Prothrombin Time Ratio 3.0 INR International Normalized Ratio 3.95 Sodium Level 138 Potassium Level 3.3 L Chloride Level 101 Carbon Dioxide Level 30 Anion Gap 7 Blood Urea Nitrogen 21 H Creatinine 0.71 Est Glomerular Filtrat Rate mL/min > 60 Glucose Level 126 Calcium Level 9.5 Imaging Imaging CXR 07/29/18 IMPRESSION: 1. Findings suggestive of pulmonary vascular congestion with small bilateral pleural effusions. No significant interval change. 2. Right mid lung interstitial opacities, may reflect atelectasis, edema or pneumonia, also unchanged. 3. Severe cardiomegaly. 3. Tubes and lines, as described above. Medications Medication Current Medications Levothyroxine Sodium (Synthroid) 50 mcg BEFORE BREAKFAST PO Last administered on 07/30/18 05:34; Admin Dose 50 MCG; Start 05/30/18 at 07:00 Mometasone Furoate (Asmanex) 1 puff DAILY INH Last administered on 07/30/18 09:42; Admin Dose 1 PUFF; Start 05/29/18 at 11:00 Atorvastatin Calcium (Lipitor) 10 mg DAILY@21 PO Last administered on 07/29/18 20:20; Admin Dose 10 MG; Start 05/29/18 at 21:00 Latanoprost (Xalatan) 1 drop HS BOTH EYES Last administered on 07/29/18 20:20; Admin Dose 1 DROP; Start 06/01/18 at 21:00 Amlodipine Besylate (Norvasc) 5 mg DAILY PO ; Start 06/03/18 at 09:00; Status Hold Pantoprazole (Protonix Tab) 40 mg DAILY@06 PO Last administered on 07/30/18 05:34; Admin Dose 40 MG; Start 06/05/18 at 06:00 Metoclopramide HCl (Reglan) 5 mg TID PRN IV Nausea; Start 06/06/18 at 11:00 Polyethylene Glycol (Miralax) 17 gm BID PRN PO CONSTIPATION; Start 06/06/18 at 14:00 Bisacodyl (Dulcolax Supp) 10 mg DAILY PRN [place] CONSTIPATION; Start 06/06/18 at 14:00 IV Flush (NS 10 ml) 10 ml PRN PRN IV IV PROTOCOL; Start 06/06/18 at 16:00 Nystatin (Nystatin Susp) 5 ml QID PO Last administered on 07/30/18at 13:11; Admin Dose 5 ML; Start 06/06/18 at 17:00 Ferrous Sulfate (Ferrous Sulfate (Ec)) 325 mg BID PO Last administered on 07/30/18at 09:43; Admin Dose 325 MG; Start 07/09/18 at 09:30 Docusate Sodium (Colace) 100 mg DAILY PO Last administered on 07/30/18 09:42; Admin Dose 100 MG; Start 07/10/18 at 09:00 Acetaminophen (Tylenol Tab) 650 mg Q6H PRN PO MILD PAIN(1-3)OR ELEVATED TEMP Last administered on 07/14/18 21:04; Admin Dose 650 MG; Start 07/14/18 at 21:00 Bumetanide (Bumex) 1 mg DAILY PO Last administered on 07/30/18 09:42; Admin Dose 1 MG; Start 07/15/18 at 09:00 Amiodarone HCl (Cordarone) 200 mg DAILY PO Last administered on 07/30/18 09:43; Admin Dose 200 MG; Start 07/23/18 at 09:00 Metoprolol Tartrate (Lopressor) 12.5 mg BID PO Last administered on 07/30/18 09:44; Admin Dose 12.5 MG; Start 07/25/18 at 21:00 Potassium Chloride (Klor-Con 10) 20 meq DAILY PO Last administered on 07/30/18 09:42; Admin Dose 20 MEQ; Start 07/27/18 at 09:00 Warfarin Sodium (Coumadin) 5 mg DAILY@17 PO Last administered on 07/29/18 17:28; Admin Dose 5 MG; Start 07/27/18 at 17:00 Albuterol/ Ipratropium (Duoneb) 3 ml Q6H RESP THERAPY PRN HHN SHORTNESS OF BREATH; Start 07/29/18 at 12:00 Levalbuterol (Xopenex Neb) 1.25 mg Q6H RESP THERAPY HHN ; Start 07/30/18 at 02:00 WILIAM HUI NP Jul 30, 2018 14:14
--- NOTE | 2018-07-30 14:39 | CONS ---
Consult Date/Type/Reason Admit Date/Time May 28, 2018 at 17:52 Initial Consult Date Type of Consultation: Urology Requesting Provider: JULY VALENTIN MD Date/Time of Note DATE: 07/30/18 TIME: 14:35 Subjective NO acute events - BP in good range - ambulatory - much better now. Rate controlled. ROS: No fever, no chills, no nausea, no vomiting, no diarrhea/constipation - better overall. No recent weight changes No chest pain, no PND, no orthopnea No dizziness, blurred vision No thirst, no heat or cold intolerance Objective Vitals Vital Signs Date Temp Pulse Resp B/P (MAP) Pulse Ox O2 O2 Flow FiO2 Time Delivery Rate 07/30/18 82 12:01 07/30/18 98.0 18 117/58 97 Room Air 11:28 (77) Intake and Output 07/29/18 07/29/18 07/30/18 1515:00 23:00 07:00 IntakeIntake Total 600 ml 600 ml OutputOutput Total 400 ml 350 ml BalanceBalance 200 ml 250 ml Exam General: WN/WD/NAD, AOx 3 HEENT: Unicetric/atraumatic/EOMI (follows commands) NECK: JVD elevated, no thyromegaly Lymph: no lymphadenopathy HEART: regular with no S3, II/ systolic murmur at apex, mech click LUNGS: Coarse sounds ABD: soft, NT, ND, +BS : Intact Neuro: non focal SKIN: chronic changes EXT: trace edema Results/Medications Result Diagram: 07/30/18 0613 07/30/18 0613 Results 24 hrs Laboratory Tests Test 07/30/18 06:13 White Blood Count 5.2 Red Blood Count 2.90 L Hemoglobin 9.2 L Hematocrit 27.9 L Mean Corpuscular Volume 96.2 Mean Corpuscular Hemoglobin 31.7 Mean Corpuscular Hemoglobin Concent 33.0 Red Cell Distribution Width 15.8 H Platelet Count 259 Mean Platelet Volume 9.3 Immature Granulocytes % 1.000 H Neutrophils % 59.8 Lymphocytes % 29.4 Monocytes % 7.5 Eosinophils % 1.7 Basophils % 0.6 Nucleated Red Blood Cells % 0.0 Immature Granulocytes # 0.050 H Neutrophils # 3.1 Lymphocytes # 1.5 Monocytes # 0.4 Eosinophils # 0.1 Basophils # 0.0 Nucleated Red Blood Cells # 0.0 Prothrombin Time 38.6 #H Prothrombin Time Ratio 3.0 INR International Normalized Ratio 3.95 Sodium Level 138 Potassium Level 3.3 L Chloride Level 101 Carbon Dioxide Level 30 Anion Gap 7 Blood Urea Nitrogen 21 H Creatinine 0.71 Est Glomerular Filtrat Rate mL/min > 60 Glucose Level 126 Calcium Level 9.5 Home Meds Active Scripts Ferrous Sulfate* (Ferrous Sulfate*) 325 Mg Tabec, 325 MG PO BID for 30 Days, TAB Prov:KRISTY MCCULLOUGH 07/28/18 Pantoprazole* (Pantoprazole*) 40 Mg Tablet.dr, 40 MG PO DAILY@06 for 30 Days Prov:KRISTY MCCULLOUGH 07/28/18 Docusate Sodium* (Colace*) 100 Mg Capsule, 100 MG PO DAILY for 30 Days, CAP Prov:KRISTY MCCULLOUGH 07/28/18 Latanoprost (Latanoprost) 2.5 Ml Drops, 1 DROP BOTH EYES HS for 30 Days, BOTTLE Prov:KRISTY MCCULLOUGH 07/28/18 Mometasone Furoate (Asmanex) 220 Mcg Aer.pow.ba, 1 PUFF INH DAILY for 30 Days Prov:KRISTY MCCULLOUGH 07/28/18 Potassium Chloride* (K-Dur*) 10 Meq Tab.prt.sr, 20 MEQ PO DAILY for 30 Days Prov:KRISTY MCCULLOUGH 07/28/18 Bumetanide* (Bumetanide*) 1 Mg Tablet, 1 MG PO DAILY for 30 Days, TAB Prov:KRISTY MCCULLOUGH 07/28/18 Metoprolol Tartrate* (Lopressor*) 25 Mg Tab, 12.5 MG PO BID for 30 Days, TAB Prov:KRISTY MCCULLOUGH 07/28/18 Amiodarone Hcl* (Amiodarone Hcl*) 200 Mg Tablet, 200 MG PO DAILY for 30 Days, TAB Prov:KRISTY MCCULLOUGH 07/28/18 Warfarin Sodium* (Coumadin*) 5 Mg Tablet, 5 MG PO Q TUES,THUR,SAT for 30 Days, TAB Prov:KRISTY MCCULLOUGH 07/28/18 Warfarin Sodium* (Coumadin*) 4 Mg Tablet, 4 MG PO Q MON,WED,FRI,SUN for 30 Days, TAB Prov:KRISTY MCCULLOUGH 07/28/18 Simvastatin* (Zocor*) 20 Mg Tablet, 20 MG PO QHS, #30 TAB Prov:KRISTY MCCULLOUGH 07/28/18 Levothyroxine Sodium* (Levothyroxine Sodium*) 50 Mcg Tablet, 50 MCG PO BEFORE BREAKFAST for 30 Days, TAB Prov:KRISTY MCCULLOUGH 07/28/18 Reported Medications Albuterol Sulfate* (Ventolin HFA*) 18 Gm Hfa.aer.ad, 2 PUFF INHALATION Q4H, #1 INHALER 05/26/18 Ergocalciferol (Vitamin D2) (VITAMIN D2) 50,000 Unit Capsule, 01418 UNIT PO [id number], CAP 05/23/18 Furosemide* (Furosemide*) 20 Mg Tablet, 20 MG PO DAILY, #60 TAB TAKE Q 2 DAYS 05/23/18 Ranitidine Hcl* (Ranitidine Hcl*) 150 Mg Tablet, 150 MG PO HS, #30 TAB 05/23/18 Acetaminophen (Mapap) 500 Mg Capsule, 500 MG PO BID PRN for PAIN, CAP 05/23/18 Spironolactone* (Aldactone*) 25 Mg Tablet, 25 MG PO DAILY, #30 TAB 05/23/18 Beclomethasone Dipropionate (Qvar Redihaler (40 MCG)) 10.6 Gm Hfa.aeroba, 10.6 GM IH DAILY, INH 05/23/18 Amlodipine Besylate* (Norvasc*) 5 Mg Tablet, 5 MG PO BID, TAB 05/23/18 Losartan-Hydrochlorothiazide (Losartan-HCTZ) 100-25 Mg Tab, 1 TAB PO DAILY, TAB 05/23/18 Medications Current Medications Levothyroxine Sodium (Synthroid) 50 mcg BEFORE BREAKFAST PO Last administered on 07/30/18at 05:34; Admin Dose 50 MCG; Start 05/30/18 at 07:00 Mometasone Furoate (Asmanex) 1 puff DAILY INH Last administered on 07/30/18at 09:42; Admin Dose 1 PUFF; Start 05/29/18 at 11:00 Atorvastatin Calcium (Lipitor) 10 mg DAILY@21 PO Last administered on 07/29/18at 20:20; Admin Dose 10 MG; Start 05/29/18 at 21:00 Latanoprost (Xalatan) 1 drop HS BOTH EYES Last administered on 07/29/18 20:20; Admin Dose 1 DROP; Start 06/01/18 at 21:00 Amlodipine Besylate (Norvasc) 5 mg DAILY PO ; Start 06/03/18 at 09:00; Status Hold Pantoprazole (Protonix Tab) 40 mg DAILY@06 PO Last administered on 07/30/18at 05:34; Admin Dose 40 MG; Start 06/05/18 at 06:00 Metoclopramide HCl (Reglan) 5 mg TID PRN IV Nausea; Start 06/06/18 at 11:00 Polyethylene Glycol (Miralax) 17 gm BID PRN PO CONSTIPATION; Start 06/06/18 at 14:00 Bisacodyl (Dulcolax Supp) 10 mg DAILY PRN [place] CONSTIPATION; Start 06/06/18 at 14:00 IV Flush (NS 10 ml) 10 ml PRN PRN IV IV PROTOCOL; Start 06/06/18 at 16:00 Nystatin (Nystatin Susp) 5 ml QID PO Last administered on 07/30/18 13:11; Admin Dose 5 ML; Start 06/06/18 at 17:00 Ferrous Sulfate (Ferrous Sulfate (Ec)) 325 mg BID PO Last administered on 07/30/18 09:43; Admin Dose 325 MG; Start 07/09/18 at 09:30 Docusate Sodium (Colace) 100 mg DAILY PO Last administered on 07/30/18 09:42; Admin Dose 100 MG; Start 07/10/18 at 09:00 Acetaminophen (Tylenol Tab) 650 mg Q6H PRN PO MILD PAIN(1-3)OR ELEVATED TEMP Last administered on 07/14/18 21:04; Admin Dose 650 MG; Start 07/14/18 at 21:00 Bumetanide (Bumex) 1 mg DAILY PO Last administered on 07/30/18 09:42; Admin Dose 1 MG; Start 07/15/18 at 09:00 Amiodarone HCl (Cordarone) 200 mg DAILY PO Last administered on 07/30/18 09:43; Admin Dose 200 MG; Start 07/23/18 at 09:00 Metoprolol Tartrate (Lopressor) 12.5 mg BID PO Last administered on 07/30/18at 09:44; Admin Dose 12.5 MG; Start 07/25/18 at 21:00 Potassium Chloride (Klor-Con 10) 20 meq DAILY PO Last administered on 07/30/18at 09:42; Admin Dose 20 MEQ; Start 07/27/18 at 09:00 Warfarin Sodium (Coumadin) 5 mg DAILY@17 PO Last administered on 07/29/18at 17:28; Admin Dose 5 MG; Start 07/27/18 at 17:00 Albuterol/ Ipratropium (Duoneb) 3 ml Q6H RESP THERAPY PRN HHN SHORTNESS OF BREATH; Start 07/29/18 at 12:00 Levalbuterol (Xopenex Neb) 1.25 mg Q6H RESP THERAPY HHN ; Start 07/30/18 at 02:00 Assessment/Plan Hospital Course (Demo Recall) 1.Cad s/p C with no sig obstructive cad - on med rx now - treated - no CP now - stable - on meds - treated. Stable. Ambulatory now. Stable overall. 2.HTN - treated - well Rx - well controlled - controlled - well maintained. TREATED. 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 STILL with hematuria - urology follows. Still heaturia - con't to monitor - H/H trending down - might need blood Rx. - H/H stable now. 4.HL 5.MVR-mechanical - stable by exam - soft click by exam - stable Stable by exam.Soft click. Stable by exam. Con't to follow. INR dosing per pharmacy - better now. 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 Now stabilizing - still with hematuria, a little better H/H at 9.3. Treated. 7.Hypothyroid 8. FOURNIER-negative Head CT 9. Fevers-with positive ua - now resolved. RESOLVED. 10. Hematuria - urology follows - [facility] - no hematuria now. CECILIA MOCTEZUMA MD Jul 30, 2018 14:38
[2018-07-30] MEDS ORDERED: WARFARIN 5 MG TAB PO SCH (17:00)
[2018-07-30] MEDS ORDERED: ALBUTEROL/IPRATROPIUM (NEB) 3 ML AMP HHN PRN (20:00)
[2018-07-30] MEDS: LATANOPROST 0.005% 2.5 ML OPH BOTH EYES SCH (20:35)
[2018-07-30] MEDS: ATORVASTATIN 10 MG TAB PO SCH (20:36)
[2018-07-31] VITALS (9 sets, daily range): BP systolic 110–131; BP diastolic 54–65; PULSE 80–86; RESP 16–18
[2018-07-31] MEDS: LEVALBUTEROL (NEB) 1.25 MG/0.5 ML AMP HHN SCH ×4 (01:16→19:43)
[2018-07-31] MEDS: PANTOPRAZOLE (EC) 40 MG TAB PO SCH (06:00)
[2018-07-31] MEDS: LEVOTHYROXINE 50 MCG TAB PO SCH (06:00)
[2018-07-31] MEDS: MOMETASONE 0.24 GM INHALER INH SCH (08:54)
[2018-07-31] MEDS: NYSTATIN SUSP 5 ML CUP PO SCH ×4 (08:55→21:29)
[2018-07-31] MEDS: BUMETANIDE 1 MG TAB PO SCH (08:55)
[2018-07-31] MEDS: AMIODARONE 200 MG TAB PO SCH (08:56)
[2018-07-31] MEDS: DOCUSATE SODIUM 100 MG CAP PO SCH (08:56)
[2018-07-31] MEDS: METOPROLOL 25 MG TAB PO SCH ×2 (08:56→21:31)
[2018-07-31] MEDS: POTASSIUM CHLORIDE (SR) 10 MEQ TAB PO SCH (08:56)
[2018-07-31] MEDS: FERROUS SULFATE (EC) 325 MG TAB PO SCH ×2 (08:56→21:34)
--- NOTE | 2018-07-31 11:15 | CONS ---
Consult Date/Type/Reason Admit Date/Time May 28, 2018 at 17:52 Initial Consult Date Type of Consultation: Urology Requesting Provider: JULY VALENTIN MD Date/Time of Note DATE: 07/31/18 TIME: 11:13 Subjective NO acute events - pt comfortable - BP in good range - no CP - INR 3.0 07/30 - pending am INR ROS: No fever, no chills, no nausea, no vomiting, no diarrhea/constipation No recent weight changes No chest pain, no PND, no orthopnea - mild SOB No dizziness, blurred vision No thirst, no heat or cold intolerance Objective Vitals Vital Signs Date Temp Pulse Resp B/P (MAP) Pulse Ox O2 O2 Flow FiO2 Time Delivery Rate 07/31/18 84 08:01 07/31/18 98.0 17 114/59 96 07:21 (77) 07/31/18 21 01:16 07/30/18 Room Air 20:00 Intake and Output 07/30/18 07/30/18 07/31/18 1414:59 22:59 06:59 IntakeIntake Total 1200 ml 500 ml OutputOutput Total 1800 ml 650 ml BalanceBalance -600 ml -150 ml Exam General: WN/WD/NAD, AOx 3 HEENT: Unicetric/atraumatic/EOMI (follow commands) NECK: JVD elevated, no thyromegaly Lymph: no lymphadenopathy HEART: regular with no S3, II/ systolic murmur at apex, crisp click LUNGS: Coarse sounds ABD: soft, NT, ND, +BS : Intact - Mensah Neuro: non focal SKIN: chronic changes EXT: no edema Results/Medications Result Diagram: 07/30/1861207/30/18612 Home Meds Active Scripts Ferrous Sulfate* (Ferrous Sulfate*) 325 Mg Tabec, 325 MG PO BID for 30 Days, TAB Prov:KRISTY MCCULLOUGH 07/28/18 Pantoprazole* (Pantoprazole*) 40 Mg Tablet.dr, 40 MG PO DAILY@06 for 30 Days Prov:KRISTY MCCULLOUGH 07/28/18 Docusate Sodium* (Colace*) 100 Mg Capsule, 100 MG PO DAILY for 30 Days, CAP Prov:KRISTY MCCULLOUGH 07/28/18 Latanoprost (Latanoprost) 2.5 Ml Drops, 1 DROP BOTH EYES HS for 30 Days, BOTTLE Prov:KEVANMARCORASKRISTY 07/28/18 Mometasone Furoate (Asmanex) 220 Mcg Aer.pow.ba, 1 PUFF INH DAILY for 30 Days Prov:KRISTY MCCULLOUGH 07/28/18 Potassium Chloride* (K-Dur*) 10 Meq Tab.prt.sr, 20 MEQ PO DAILY for 30 Days Prov:KRISTY MCCULLOUGH 07/28/18 Bumetanide* (Bumetanide*) 1 Mg Tablet, 1 MG PO DAILY for 30 Days, TAB Prov:KRISTY MCCULLOUGH 07/28/18 Metoprolol Tartrate* (Lopressor*) 25 Mg Tab, 12.5 MG PO BID for 30 Days, TAB Prov:KRISTY MCCULLOUGH 07/28/18 Amiodarone Hcl* (Amiodarone Hcl*) 200 Mg Tablet, 200 MG PO DAILY for 30 Days, TAB Prov:KRISTY MCCULLOUGH 07/28/18 Warfarin Sodium* (Coumadin*) 5 Mg Tablet, 5 MG PO Q TUES,THUR,SAT for 30 Days, TAB Prov:KRISTY MCCULLOUGH 07/28/18 Warfarin Sodium* (Coumadin*) 4 Mg Tablet, 4 MG PO Q MON,WED,FRI,SUN for 30 Days, TAB Prov:KRISTY MCCULLOUGH 07/28/18 Simvastatin* (Zocor*) 20 Mg Tablet, 20 MG PO QHS, #30 TAB Prov:KRISTY MCCULLOUGH 07/28/18 Levothyroxine Sodium* (Levothyroxine Sodium*) 50 Mcg Tablet, 50 MCG PO BEFORE BREAKFAST for 30 Days, TAB Prov:RAS MCCULLOUGHETLANA 07/28/18 Reported Medications Albuterol Sulfate* (Ventolin HFA*) 18 Gm Hfa.aer.ad, 2 PUFF INHALATION Q4H, #1 INHALER 05/26/18 Ergocalciferol (Vitamin D2) (VITAMIN D2) 50,000 Unit Capsule, 44865 UNIT PO [id number], CAP 05/23/18 Furosemide* (Furosemide*) 20 Mg Tablet, 20 MG PO DAILY, #60 TAB TAKE Q 2 DAYS 05/23/18 Ranitidine Hcl* (Ranitidine Hcl*) 150 Mg Tablet, 150 MG PO HS, #30 TAB 05/23/18 Acetaminophen (Mapap) 500 Mg Capsule, 500 MG PO BID PRN for PAIN, CAP 05/23/18 Spironolactone* (Aldactone*) 25 Mg Tablet, 25 MG PO DAILY, #30 TAB 05/23/18 Beclomethasone Dipropionate (Qvar Redihaler (40 MCG)) 10.6 Gm Hfa.aeroba, 10.6 GM IH DAILY, INH 05/23/18 Amlodipine Besylate* (Norvasc*) 5 Mg Tablet, 5 MG PO BID, TAB 05/23/18 Losartan-Hydrochlorothiazide (Losartan-HCTZ) 100-25 Mg Tab, 1 TAB PO DAILY, TAB 05/23/18 Medications Current Medications Levothyroxine Sodium (Synthroid) 50 mcg BEFORE BREAKFAST PO Last administered on 07/31/18at 06:00; Admin Dose 50 MCG; Start 05/30/18 at 07:00 Mometasone Furoate (Asmanex) 1 puff DAILY INH Last administered on 07/31/18at 08:54; Admin Dose 1 PUFF; Start 05/29/18 at 11:00 Atorvastatin Calcium (Lipitor) 10 mg DAILY@21 PO Last administered on 07/30/18at 20:36; Admin Dose 10 MG; Start 05/29/18 at 21:00 Latanoprost (Xalatan) 1 drop HS BOTH EYES Last administered on 07/30/18at 20:35; Admin Dose 1 DROP; Start 06/01/18 at 21:00 Amlodipine Besylate (Norvasc) 5 mg DAILY PO ; Start 06/03/18 at 09:00; Status Hold Pantoprazole (Protonix Tab) 40 mg DAILY@06 PO Last administered on 07/31/18at 06:00; Admin Dose 40 MG; Start 06/05/18 at 06:00 Metoclopramide HCl (Reglan) 5 mg TID PRN IV Nausea; Start 06/06/18 at 11:00 Polyethylene Glycol (Miralax) 17 gm BID PRN PO CONSTIPATION; Start 06/06/18 at 14:00 Bisacodyl (Dulcolax Supp) 10 mg DAILY PRN AR CONSTIPATION; Start 06/06/18 at 14:00 IV Flush (NS 10 ml) 10 ml PRN PRN IV IV PROTOCOL; Start 06/06/18 at 16:00 Nystatin (Nystatin Susp) 5 ml QID PO Last administered on 07/31/18 08:55; Admin Dose 5 ML; Start 06/06/18 at 17:00 Ferrous Sulfate (Ferrous Sulfate (Ec)) 325 mg BID PO Last administered on 07/31/18 08:56; Admin Dose 325 MG; Start 07/09/18 at 09:30 Docusate Sodium (Colace) 100 mg DAILY PO Last administered on 07/31/18 08:56; Admin Dose 100 MG; Start 07/10/18 at 09:00 Acetaminophen (Tylenol Tab) 650 mg Q6H PRN PO MILD PAIN(1-3)OR ELEVATED TEMP Last administered on 07/14/18 21:04; Admin Dose 650 MG; Start 07/14/18 at 21:00 Bumetanide (Bumex) 1 mg DAILY PO Last administered on 07/31/18 08:55; Admin Dose 1 MG; Start 07/15/18 at 09:00 Amiodarone HCl (Cordarone) 200 mg DAILY PO Last administered on 07/31/18 08:56; Admin Dose 200 MG; Start 07/23/18 at 09:00 Metoprolol Tartrate (Lopressor) 12.5 mg BID PO Last administered on 07/31/18 08:56; Admin Dose 12.5 MG; Start 07/25/18 at 21:00 Potassium Chloride (Klor-Con 10) 20 meq DAILY PO Last administered on 07/31/18 08:56; Admin Dose 20 MEQ; Start 07/27/18 at 09:00 Warfarin Sodium (Coumadin) 5 mg DAILY@17 PO Last administered on 07/30/18 17:44; Admin Dose 5 MG; Start 07/30/18 at 17:00 Albuterol/ Ipratropium (Duoneb) 3 ml Q6H RESP THERAPY PRN HHN SHORTNESS OF BREATH; Start 07/30/18 at 20:00 Levalbuterol (Xopenex Neb) 1.25 mg Q6H RESP THERAPY HHN Last administered on 07/31/18 09:07; Admin Dose 1.25 MG; Start 07/30/18 at 20:00 Assessment/Plan Hospital Course (Demo Recall) 1.Cad s/p C with no sig obstructive cad - on med rx now - treated - no CP now - stable - on meds - treated. Stable. Ambulatory now. Stable overall. NO change. 2.HTN - treated - well Rx - well controlled - controlled - well maintained. TREATED. 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 STILL with hematuria - urology follows. Still heaturia - con't to monitor - H/H trending down - might need blood Rx. - H/H stable now. 4.HL 5.MVR-mechanical - stable by exam - soft click by exam - stable Stable by exam.Soft click. Stable by exam. Con't to follow. INR dosing at 3.0 day prior. Con't same dose. 6.Anemia- s/p repair of R TRIMMER AND REINFORCER/illiac. Now stabilizing - still with hematuria, a little better H/H at 9.3. Treated. 7.Hypothyroid 8. FOURNIER-negative Head CT 9. Fevers-with positive ua - now resolved. RESOLVED. 10. Hematuria - urology follows - might need transfer to higher [facility] opf care - no hematuria now. BETTER. CECILIA MOCTEZUMA MD Jul 31, 2018 11:15
--- NOTE | 2018-07-31 11:50 | CONS ---
[facility] Name: Quyen Sexton Unit Number: [id number] Date of : 1955 Patient Status: Admitted Inpatient Attending Doctor: July Valentin MD Edit: SHARI MOLINA M.D. on 08/01/18 @ 04:52 Jesse: I discussed the management with PROFESSIONAL ORGANIZER and agree Assessment/Plan Assessment/Plan Hospital Course (Demo Recall) # sepsis, cardiopulmonary - S/p severe sepsis due to UTI, resolved - S/p SIRS due to acute blood loss, resolved - S/p L heart catheterization on 05/27/2018 showing no significant obstructive CAD - CAD - S/p CABG in [facility] in 1982 - H/o MVR with mechanical valve, in 1999 - Hypertension - PAF - Asthma # urology/renal, GI - Recurrent UTI on 07/15/2018 due to Citrobacter Freundii, Enterococcus species, MDR Enterobacter; s/p Zosyn->ertapenem - Hematuria caused by ruptured urinary bladder (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 - US Abdomen 07/18/18 showed Complex fluid collection about the anterior superior bladder measuring up to 10.0 x 8.6 x 7.2 cm. Bladder wall thickening. - Mensah was exchanged on 07/12/2018 and 07/14/2018 because her older catheter was leaking - S/p UTI due to hafnai alvei and pediococci on 06/30/18. Pt completed pip/tazo (07/02/18-07/05/2018) for this episode - S/p UTI due to E. coli. 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 - will continue to follow closely with you Plan was d/w patient, patient's at bedside, and with Dr. Molina. Thank you Consultation Date/Type/Reason Admit Date/Time May 28, 2018 at 17:52 Initial Consult Date 06/03/18 Type of Consult ID Requesting Provider: JULY VALENTIN MD Date/Time of Note DATE: 07/31/18 TIME: 11:49 24 HR Interval Summary Free Text/Dictation Per patient's , might be going home next week and then possibly to [facility]. No acute issues reported by nursing and patient has remained afebrile. Detailed Summary Eyes: no complaints ENT: no complaints Respiratory: no complaints Cardiovascular: no complaints Gastrointestinal: no complaints Genitourinary: other (F/c) Musculoskeletal: other (muscle weakness) Skin: no complaints Neurologic: no complaints Endocrine: no complaints Lymphatic: no complaints Psychological: no complaints Immunologic: no complaints Exam/Review of Systems Exam Vitals Vital Signs Date Temp Pulse Resp B/P (MAP) Pulse Ox O2 O2 Flow FiO2 Time Delivery Rate 07/31/18 98.2 83 18 110/54 95 11:31 (72) 07/31/18 21 01:16 07/30/18 Room Air 20:00 Intake and Output 07/30/18 07/30/18 07/31/18 1515:00 23:00 07:00 IntakeIntake Total 1200 ml 500 ml OutputOutput Total 1800 ml 650 ml BalanceBalance -600 ml -150 ml Allergies Coded Allergies iodine (Verified Allergy, Unknown, 07/29/18) Exam Constitutional: alert, oriented, well developed, other (sitting up in bed smiling playing on ipad) Psych: no complaints, nl mood/affect Head: normocephalic, atraumatic Eyes: nl conjunctiva, nl lids, nl sclera ENMT: nl external ears & nose, nl nasal mucosa & septum, mucosa pink and moist (no thrush) Neck: supple, non-tender Respiratory: clear to auscultation, normal air movement; No labored breathing, No wheezing Cardiovascular: regular rate and rhythm, nl pulses Gastrointestinal: soft, non-tender, bowel sounds (normoactive); No distended, No tender Genitourinary - Female: other (F/c draining yellow hazy urine) Musculoskeletal: nl extremities to inspection Extremities: normal pulses; No edema Neurological: AUDIT DIRECTOR II-XII intact, nl mental status, nl speech, nl strength Skin: nl turgor; No rash or lesions Results Result Diagram: 07/30/1861207/30/18612 Medications Medication Current Medications Levothyroxine Sodium (Synthroid) 50 mcg BEFORE BREAKFAST PO Last administered on 07/31/18at 06:00; Admin Dose 50 MCG; Start 05/30/18 at 07:00 Mometasone Furoate (Asmanex) 1 puff DAILY INH Last administered on 07/31/18at 08:54; Admin Dose 1 PUFF; Start 05/29/18 at 11:00 Atorvastatin Calcium (Lipitor) 10 mg DAILY@21 PO Last administered on 07/30/18at 20:36; Admin Dose 10 MG; Start 05/29/18 at 21:00 Latanoprost (Xalatan) 1 drop HS BOTH EYES Last administered on 07/30/18at 20:35; Admin Dose 1 DROP; Start 06/01/18 at 21:00 Amlodipine Besylate (Norvasc) 5 mg DAILY PO ; Start 06/03/18 at 09:00; Status Hold Pantoprazole (Protonix Tab) 40 mg DAILY@06 PO Last administered on 07/31/18 06:00; Admin Dose 40 MG; Start 06/05/18 at 06:00 Metoclopramide HCl (Reglan) 5 mg TID PRN IV Nausea; Start 06/06/18 at 11:00 Polyethylene Glycol (Miralax) 17 gm BID PRN PO CONSTIPATION; Start 06/06/18 at 14:00 Bisacodyl (Dulcolax Supp) 10 mg DAILY PRN [place] CONSTIPATION; Start 06/06/18 at 14:00 IV Flush (NS 10 ml) 10 ml PRN PRN IV IV PROTOCOL; Start 06/06/18 at 16:00 Nystatin (Nystatin Susp) 5 ml QID PO Last administered on 07/31/18 08:55; Admin Dose 5 ML; Start 06/06/18 at 17:00 Ferrous Sulfate (Ferrous Sulfate (Ec)) 325 mg BID PO Last administered on 07/31/18 08:56; Admin Dose 325 MG; Start 07/09/18 at 09:30 Docusate Sodium (Colace) 100 mg DAILY PO Last administered on 07/31/18 08:56; Admin Dose 100 MG; Start 07/10/18 at 09:00 Acetaminophen (Tylenol Tab) 650 mg Q6H PRN PO MILD PAIN(1-3)OR ELEVATED TEMP Last administered on 07/14/18 21:04; Admin Dose 650 MG; Start 07/14/18 at 21:00 Bumetanide (Bumex) 1 mg DAILY PO Last administered on 07/31/18 08:55; Admin Dose 1 MG; Start 07/15/18 at 09:00 Amiodarone HCl (Cordarone) 200 mg DAILY PO Last administered on 07/31/18 08:56 ; Admin Dose 200 MG; Start 07/23/18 at 09:00 Metoprolol Tartrate (Lopressor) 12.5 mg BID PO Last administered on 07/31/18 08:56; Admin Dose 12.5 MG; Start 07/25/18 at 21:00 Potassium Chloride (Klor-Con 10) 20 meq DAILY PO Last administered on 07/31/18 08:56; Admin Dose 20 MEQ; Start 07/27/18 at 09:00 Warfarin Sodium (Coumadin) 5 mg DAILY@17 PO Last administered on 4/20/19at 17:44; Admin Dose 5 MG; Start 07/30/18 at 17:00 Albuterol/ Ipratropium (Duoneb) 3 ml Q6H RESP THERAPY PRN HHN SHORTNESS OF BREATH; Start 07/30/18 at 20:00 Levalbuterol (Xopenex Neb) 1.25 mg Q6H RESP THERAPY HHN Last administered on 07/31/18at 09:07; Admin Dose 1.25 MG; Start 07/30/18 at 20:00 WILIAM HUI PROFESSIONAL ORGANIZER Jul 31, 2018 11:50
--- NOTE | 2018-07-31 12:34 | PN ---
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 Continue Mensah, monitor. Dr. Ashford is following in urology consultation. -Polymicrobial UTI, completed treatment with abx. Dr. Hughes is following in infection disease consultation. -Anemia of acute blood loss, transfuse PRN, monitor H&H. 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 -S/p Nose/oropharyngeal bleed on 06/11/2018, stopped after heparin was held. -Retroperitoneal bleed secondary to vascular injury status post stent placement. S/p CT guided placement of drainage catheter into pelvic hematoma on 06/05/18 and sequent removal. -Status post left heart catheterization with no significant obstructive coronary artery disease by Dr. Moreno on 05/27/2018. -Anemia of acute blood loss, status post blood transfusion, continue to monitor hemoglobin and hematocrit. -Urinary incontinence. -Acute illness myopathy -Status post mitral valve replacement with mechanical valve in 1999. Continue Coumadin, monitor PT/INR. -HTN, continue metoprolol -Hyperlipidemia -Hypothyroidism, continue levothyroxine -History of asthma Result Diagram: 07/30/1813 07/30/18612 Results 24hrs Laboratory Tests Test 07/31/18 11:20 Prothrombin Time 39.9 H Prothrombin Time Ratio 3.1 INR International Normalized Ratio 4.13 Subjective 24 Hr Interval Summary Free Text/Dictation Patient denies any pain Exam/Review of Systems Exam Vitals Vital Signs Date Temp Pulse Resp B/P (MAP) Pulse Ox O2 O2 Flow FiO2 Time Delivery Rate 07/31/18 98.2 83 18 110/54 95 11:31 (72) 07/31/18 21 01:16 07/30/18 Room Air 20:00 Intake and Output 07/30/18 07/30/18 07/31/18 1515:00 23:00 07:00 IntakeIntake Total 1200 ml 500 ml OutputOutput Total 1800 ml 650 ml BalanceBalance -600 ml -150 ml Constitutional: well developed Head: normocephalic, atraumatic Neck: supple Respiratory: diminished breath sounds Cardiovascular: regular rate and rhythm Gastrointestinal: soft, non-tender Extremities: normal pulses Results Results 24hrs Laboratory Tests Test 07/31/18 11:20 Prothrombin Time 39.9 H Prothrombin Time Ratio 3.1 INR International Normalized Ratio 4.13 Medications Medication Current Medications Levothyroxine Sodium (Synthroid) 50 mcg BEFORE BREAKFAST PO Last administered on 07/31/18 06:00; Admin Dose 50 MCG; Start 05/30/18 at 07:00 Mometasone Furoate (Asmanex) 1 puff DAILY INH Last administered on 07/31/18at 08:54; Admin Dose 1 PUFF; Start 05/29/18 at 11:00 Atorvastatin Calcium (Lipitor) 10 mg DAILY@21 PO Last administered on 07/30/18at 20:36; Admin Dose 10 MG; Start 05/29/18 at 21:00 Latanoprost (Xalatan) 1 drop HS BOTH EYES Last administered on 07/30/18at 20:35; Admin Dose 1 DROP; Start 06/01/18 at 21:00 Amlodipine Besylate (Norvasc) 5 mg DAILY PO ; Start 06/03/18 at 09:00; Status Hold Pantoprazole (Protonix Tab) 40 mg DAILY@06 PO Last administered on 07/31/18at 06:00; Admin Dose 40 MG; Start 06/05/18 at 06:00 Metoclopramide HCl (Reglan) 5 mg TID PRN IV Nausea; Start 06/06/18 at 11:00 Polyethylene Glycol (Miralax) 17 gm BID PRN PO CONSTIPATION; Start 06/06/18 at 14:00 Bisacodyl (Dulcolax Supp) 10 mg DAILY PRN [place] CONSTIPATION; Start 06/06/18 at 14:00 IV Flush (NS 10 ml) 10 ml PRN PRN IV IV PROTOCOL; Start 06/06/18 at 16:00 Nystatin (Nystatin Susp) 5 ml QID PO Last administered on 07/31/18at 08:55; Admin Dose 5 ML; Start 06/06/18 at 17:00 Ferrous Sulfate (Ferrous Sulfate (Ec)) 325 mg BID PO Last administered on 07/31/18 08:56; Admin Dose 325 MG; Start 07/09/18 at 09:30 Docusate Sodium (Colace) 100 mg DAILY PO Last administered on 07/31/18 08:56; Admin Dose 100 MG; Start 07/10/18 at 09:00 Acetaminophen (Tylenol Tab) 650 mg Q6H PRN PO MILD PAIN(1-3)OR ELEVATED TEMP Last administered on 07/14/18 21:04; Admin Dose 650 MG; Start 07/14/18 at 21:00 Bumetanide (Bumex) 1 mg DAILY PO Last administered on 07/31/18 08:55; Admin Dose 1 MG; Start 07/15/18 at 09:00 Amiodarone HCl (Cordarone) 200 mg DAILY PO Last administered on 07/31/18 08:56; Admin Dose 200 MG; Start 07/23/18 at 09:00 Metoprolol Tartrate (Lopressor) 12.5 mg BID PO Last administered on 07/31/18 08:56; Admin Dose 12.5 MG; Start 07/25/18 at 21:00 Potassium Chloride (Klor-Con 10) 20 meq DAILY PO Last administered on 07/31/18 08:56; Admin Dose 20 MEQ; Start 07/27/18 at 09:00 Warfarin Sodium (Coumadin) 5 mg DAILY@17 PO Last administered on 07/30/18 17:44; Admin Dose 5 MG; Start 07/30/18 at 17:00 Albuterol/ Ipratropium (Duoneb) 3 ml Q6H RESP THERAPY PRN HHN SHORTNESS OF BREATH; Start 07/30/18 at 20:00 Levalbuterol (Xopenex Neb) 1.25 mg Q6H RESP THERAPY HHN Last administered on 07/31/18 09:07; Admin Dose 1.25 MG; Start 07/30/18 at 20:00 ABDIRASHID PRATHER Jul 31, 2018 12:34
--- NOTE | 2018-07-31 13:13 | CONS ---
Assessment/Plan Assessment/Plan Assessment/Plan (Daily) 1. Nonoliguric acute kidney injury with previously normal baseline creatinine. Etiology of acute kidney injury is secondary to acute tubular necrosis. Renal function is improved. Continue to monitor. no labs today 2. 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 The patient's hematuria has resolved. Continue to monitor. 3. Volume overload, improved. Continue current diuretic regimen. 4. Hypokalemia. We will continue to monitor and replete with potassium chloride. 5. Anemia. Continue to monitor hemoglobin and hematocrit levels. 6. Mechanical heart valve. Continue anticoagulation. 7. Sepsis secondary to urinary tract infection. The patient is completing antibiotic course. 8. Hypothyroidism. Continue Synthroid. 9. Dyslipidemia. Continue statin therapy. 10. Hypertension. Continue current blood pressure regimen. 11. History of liver cirrhosis. 12. Status post urinary tract infection. Consultation Date/Type/Reason Admit Date/Time May 28, 2018 at 17:52 Initial Consult Date 06/03/18 Requesting Provider: JULY VALENTIN MD Date/Time of Note DATE: 07/31/18 TIME: 13:12 24 HR Interval Summary Free Text/Dictation denies shortness of breath, n/v, or urinary issues d/w rn gen nad cv rrr pulm ctab abd soft, nd, nt +bs ext: no edema Exam/Review of Systems Exam Vitals Vital Signs Date Temp Pulse Resp B/P (MAP) Pulse Ox O2 O2 Flow FiO2 Time Delivery Rate 07/31/18 82 12:01 07/31/18 98.2 18 110/54 95 11:31 (72) 07/31/18 21 01:16 07/30/18 Room Air 20:00 Intake and Output 07/30/18 07/30/18 07/31/18 1515:00 23:00 07:00 IntakeIntake Total 1200 ml 500 ml OutputOutput Total 1800 ml 650 ml BalanceBalance -600 ml -150 ml Results Result Diagram: 07/30/1813 07/30/18 06 Results 24hrs Laboratory Tests Test 07/31/18 11:20 Prothrombin Time 39.9 H Prothrombin Time Ratio 3.1 INR International Normalized Ratio 4.13 Medications Medication Current Medications Levothyroxine Sodium (Synthroid) 50 mcg BEFORE BREAKFAST PO Last administered on 07/31/18at 06:00; Admin Dose 50 MCG; Start 05/30/18 at 07:00 Mometasone Furoate (Asmanex) 1 puff DAILY INH Last administered on 07/31/18at 08:54; Admin Dose 1 PUFF; Start 05/29/18 at 11:00 Atorvastatin Calcium (Lipitor) 10 mg DAILY@21 PO Last administered on 07/30/18at 20:36; Admin Dose 10 MG; Start 05/29/18 at 21:00 Latanoprost (Xalatan) 1 drop HS BOTH EYES Last administered on 07/30/18at 20:35; Admin Dose 1 DROP; Start 06/01/18 at 21:00 Amlodipine Besylate (Norvasc) 5 mg DAILY PO ; Start 06/03/18 at 09:00; Status Hold Pantoprazole (Protonix Tab) 40 mg DAILY@06 PO Last administered on 07/31/18at 06:00; Admin Dose 40 MG; Start 06/05/18 at 06:00 Metoclopramide HCl (Reglan) 5 mg TID PRN IV Nausea; Start 06/06/18 at 11:00 Polyethylene Glycol (Miralax) 17 gm BID PRN PO CONSTIPATION; Start 06/06/18 at 14:00 Bisacodyl (Dulcolax Supp) 10 mg DAILY PRN [place] CONSTIPATION; Start 06/06/18 at 14:00 IV Flush (NS 10 ml) 10 ml PRN PRN IV IV PROTOCOL; Start 06/06/18 at 16:00 Nystatin (Nystatin Susp) 5 ml QID PO Last administered on 07/31/18at 08:55; Admin Dose 5 ML; Start 06/06/18 at 17:00 Ferrous Sulfate (Ferrous Sulfate (Ec)) 325 mg BID PO Last administered on 07/31/18at 08:56; Admin Dose 325 MG; Start 07/09/18 at 09:30 Docusate Sodium (Colace) 100 mg DAILY PO Last administered on 07/31/18at 08:56; Admin Dose 100 MG; Start 07/10/18 at 09:00 Acetaminophen (Tylenol Tab) 650 mg Q6H PRN PO MILD PAIN(1-3)OR ELEVATED TEMP Last administered on 07/14/18at 21:04; Admin Dose 650 MG; Start 07/14/18 at 21:00 Bumetanide (Bumex) 1 mg DAILY PO Last administered on 07/31/18 08:55; Admin Dose 1 MG; Start 07/15/18 at 09:00 Amiodarone HCl (Cordarone) 200 mg DAILY PO Last administered on 07/31/18 08: 56; Admin Dose 200 MG; Start 07/23/18 at 09:00 Metoprolol Tartrate (Lopressor) 12.5 mg BID PO Last administered on 07/31/18 08:56; Admin Dose 12.5 MG; Start 07/25/18 at 21:00 Potassium Chloride (Klor-Con 10) 20 meq DAILY PO Last administered on 07/31/18 08:56; Admin Dose 20 MEQ; Start 07/27/18 at 09:00 Warfarin Sodium (Coumadin) 5 mg DAILY@17 PO Last administered on 07/30/18 17:44; Admin Dose 5 MG; Start 07/30/18 at 17:00 Albuterol/ Ipratropium (Duoneb) 3 ml Q6H RESP THERAPY PRN HHN SHORTNESS OF BREATH; Start 07/30/18 at 20:00 Levalbuterol (Xopenex Neb) 1.25 mg Q6H RESP THERAPY HHN Last administered on 07/31/18 09:07; Admin Dose 1.25 MG; Start 07/30/18 at 20:00 ALTA BUSTAMANTE MD Jul 31, 2018 13:13
[2018-07-31] MEDS ORDERED: WARFARIN 2 MG TAB PO SCH (17:00)
[2018-07-31] MEDS: ATORVASTATIN 10 MG TAB PO SCH (21:30)
[2018-07-31] MEDS: LATANOPROST 0.005% 2.5 ML OPH BOTH EYES SCH (21:30)
[2018-08-01] VITALS (9 sets, daily range): BP systolic 105–130; BP diastolic 50–58; PULSE 82–86; RESP 16–20
[2018-08-01] MEDS: LEVALBUTEROL (NEB) 1.25 MG/0.5 ML AMP HHN SCH ×4 (01:14→20:00)
[2018-08-01] MEDS: PANTOPRAZOLE (EC) 40 MG TAB PO SCH (06:05)
[2018-08-01] MEDS: LEVOTHYROXINE 50 MCG TAB PO SCH (06:05)
[2018-08-01] MEDS: POTASSIUM CHLORIDE (SR) 10 MEQ TAB PO SCH (08:19)
[2018-08-01] MEDS: DOCUSATE SODIUM 100 MG CAP PO SCH (08:19)
[2018-08-01] MEDS: NYSTATIN SUSP 5 ML CUP PO SCH ×4 (08:19→20:36)
[2018-08-01] MEDS: AMIODARONE 200 MG TAB PO SCH (08:20)
[2018-08-01] MEDS: METOPROLOL 25 MG TAB PO SCH ×2 (08:20→20:36)
[2018-08-01] MEDS: BUMETANIDE 1 MG TAB PO SCH ×2 (08:20→20:36)
[2018-08-01] MEDS: FERROUS SULFATE (EC) 325 MG TAB PO SCH ×2 (08:21→20:36)
[2018-08-01] MEDS: MOMETASONE 0.24 GM INHALER INH SCH (08:22)
--- NOTE | 2018-08-01 09:40 | PN ---
DATE: 08/01/2018 SUBJECTIVE: The patient is stable. No events overnight. OBJECTIVE: VITAL SIGNS: Blood pressure is 130/58, pulse 85, respirations 20, temperature 98.0. HEENT: Head is normocephalic. NECK: Supple. HEART: Regular rate. LUNGS: Show diminished breath sounds at the base. ABDOMEN: Soft, nontender to palpation without rebound or guarding. EXTREMITIES: Negative for clubbing, cyanosis. Trace edema. DERMATOLOGIC: No rashes. MUSCULOSKELETAL: No joint effusion. NEUROLOGIC: No change in exam. MEDICATIONS: The patient's medications have been reviewed. LABORATORY DATA: Has been reviewed. ASSESSMENT AND PLAN: 1. Nonoliguric acute kidney injury with previously normal baseline creatinine. Etiology of acute ki dney injury is secondary to acute tubular necrosis. Renal function is improved. Continue to monitor . 2. Hematuria, resolved. Continue to monitor. 3. Volume overload, improving. Continue current diuretic regimen. 4. Hyperkalemia. Continue to monitor and replete as needed. 5. Anemia. Monitor hemoglobin and hematocrit levels. 6. Mechanical heart valve. Continue anticoagulation. 7. Sepsis secondary to urinary tract infection. The patient is completing antibiotic course. 8. Hypothyroidism. Continue Synthroid. 9. Dyslipidemia. Continue statin therapy. 10. Hypertension. Continue current blood pressure regimen. 11. History of liver cirrhosis. 12. Status post urinary tract infection. Dictated By: GWYN FABIAN DO NR/NTS Conf#: [id number] DID#: [id number] CC: CHRIS LAZAR MD;*EndCC*
--- NOTE | 2018-08-01 11:29 | CONS ---
Assessment/Plan Assessment/Plan Hospital Course (Demo Recall) IMP: 1.cad s/p C with no sig obstructive cad. Mildly depressed LVEF--40-45% ? nonischemic process 2.HTN 3.RP Bleed s/p transfusions now stable and tolerating heparin/coumadin loading. Then had recurrent bled overnight now s/p covered stent to IMPROVEMENT LEADER/Ext iliac. stable. No further abd pain, s/p pigtail catheter drainage 5.MVR-mechanical 6.anemia- s/p repair of R IMPROVEMENT LEADER/illiac. Had hemoptysis with subsequent drop in Hgb again and holding of heparin. Had some mild blood tinged sputum 7.Hypothyroid 8. FOURNIER-negative Head CT 9. Fevers-resolved 10. UTI-Being followed by ID and on abx 11.ARF-? Contrast induced/compression from hematoma- now improving with increased urine output and slowly decreasing manager clinic 12. Coagulopathy-again supratherapeutic with holding of coumadin 14. LE weakness-? compression from hematoma and exacerbated by femoral compression after cath-now resolved 15. arterial insuff- LLE- s/p WARP YARN SORTER/thrombolysis 06/04 successfully with palpable pulses/B DP/PT and remain that way 16. PAF/AFL-rate controlled with at times conversion to SR 17. 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 Now decreasing hematuria. s/p pelvic CT revealing ongoing fistula and per urology note was discussed with family. Now resolved 18. Epistaxis-improved/resolved. no recurrence 19. 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 ? new , ? etiology. Urology following and per his note has discussed treatment options with family including surgical versus waiting and thinks that closure would be best per notes at this time, Family discussed possible transfer to [facility] for procedure as necessary and insurance did not accept and thus will follow-up at [facility] as scheduled outpatient Recc: -Now on tele -Continue BB with well controlled Hr's -Continue statin -s/p course of abx's -ongoing ID f/u -F/U manager clinic/K closely with creatnine now normalized and volume status improving on bumex bid. Will also assess patient's PO intake and possible contribution to volume overload -Follow HGb closely which has been stable to improved actually -PT/ambulation- doing 3x/day -May consider d/c of amio if continues to have recurrent PAF -Urology following with findings of apparent bladder fistula and thus draining of the hematoma through the bladder causing hematuria which has improved and now apparent bladder-vaginal fistula.Continue to follow hematuria for complete resolution and assess need for spontaneous closure versus need for repair which has been discussed with family and urology and between them as well. ? necessity of closing fistula and d/c'ing vincent at this time given clarity of urine/resolution of hematuria but have discussed with urology and states bladder must remain decompressed until closure of fistula with vincent in place. Family intereseted in laparoscopic approach as possible versus open, Have been offered open repair by urology here. Case managementhas been [facility] but has not been accepted. Possible d/c with indwelling vincent and outpatient f/u at [facility] -Now back on coumadin with therapeutic INR -Continue current bumex and follow volume status -? D/C planning for today Consultation Date/Type/Reason Admit Date/Time May 28, 2018 at 17:52 Initial Consult Date 05/28/18 Type of Consult Cardiology Reason for Consultation MVR Requesting Provider: JULY VALENTIN MD Date/Time of Note DATE: 08/01/18 TIME: 11:23 Exam/Review of Systems Vital Signs Vitals Vital Signs Date Temp Pulse Resp B/P (MAP) Pulse Ox O2 O2 Flow FiO2 Time Delivery Rate 08/01/18 85 20 96 21 08:38 08/01/18 98.0 130/58 07:42 (82) 07/30/18 Room Air 20:00 Intake and Output 07/31/18 07/31/18 08/01/18 1515:00 23:00 07:00 IntakeIntake Total 700 ml 600 ml OutputOutput Total 1500 ml 750 ml BalanceBalance -800 ml -150 ml Exam Exam Review of Systems: CONSTITUTIONAL: No fevers, chills. PULMONARY: No sob CARDIOVASCULAR: No chest pain/palpitations GASTROINTESTINAL: No nausea/vomiting. GENITOURINARY: No hematuria/dysuria. MUSCULOSKELETAL: No myagias/arthalgias. PSYCHIATRIC: The patient denies depression. NEUROLOGIC: No weakness Constitutional: alert Psych: no complaints Head: normocephalic ENMT: mucosa pink and moist Neck: supple, jvd (9 cm water) Respiratory: diminished breath sounds (at bases/B) Cardiovascular: regular rate and rhythm Gastrointestinal: soft, non-tender Musculoskeletal: muscle tone (normal) Extremities: edema (none) Labs Result Diagram: 07/30/1861207/30/18612 Medications Medications Current Medications Amlodipine Besylate (Norvasc) 5 mg DAILY PO ; Start 06/03/18 at 09:00; Status Hold Pantoprazole (Protonix Tab) 40 mg DAILY@06 PO Last administered on 08/01/18at 06:05; Admin Dose 40 MG; Start 06/05/18 at 06:00 Metoclopramide HCl (Reglan) 5 mg TID PRN IV Nausea; Start 06/06/18 at 11:00 Polyethylene Glycol (Miralax) 17 gm BID PRN PO CONSTIPATION; Start 06/06/18 at 14:00 Bisacodyl (Dulcolax Supp) 10 mg DAILY PRN [place] CONSTIPATION; Start 06/06/18 at 14:00 IV Flush (NS 10 ml) 10 ml PRN PRN IV IV PROTOCOL; Start 06/06/18 at 16:00 Nystatin (Nystatin Susp) 5 ml QID PO Last administered on 08/01/18 08:19; Admin Dose 5 ML; Start 06/06/18 at 17:00 Ferrous Sulfate (Ferrous Sulfate (Ec)) 325 mg BID PO Last administered on 08/01/18 08:21; Admin Dose 325 MG; Start 07/09/18 at 09:30 Docusate Sodium (Colace) 100 mg DAILY PO Last administered on 08/01/18 08:19; Admin Dose 100 MG; Start 07/10/18 at 09:00 Acetaminophen (Tylenol Tab) 650 mg Q6H PRN PO MILD PAIN(1-3)OR ELEVATED TEMP Last administered on 07/14/18 21:04; Admin Dose 650 MG; Start 07/14/18 at 21:00 Bumetanide (Bumex) 1 mg DAILY PO Last administered on 08/01/18 08:20; Admin Dose 1 MG; Start 07/15/18 at 09:00 Amiodarone HCl (Cordarone) 200 mg DAILY PO Last administered on 08/01/18 08:20; Admin Dose 200 MG; Start 07/23/18 at 09:00 Metoprolol Tartrate (Lopressor) 12.5 mg BID PO Last administered on 08/01/18at 08:20; Admin Dose 12.5 MG; Start 07/25/18 at 21:00 Potassium Chloride (Klor-Con 10) 20 meq DAILY PO Last administered on 08/01/18at 08:19; Admin Dose 20 MEQ; Start 07/27/18 at 09:00 Albuterol/ Ipratropium (Duoneb) 3 ml Q6H RESP THERAPY PRN HHN SHORTNESS OF BREATH; Start 07/30/18 at 20:00 Levalbuterol (Xopenex Neb) 1.25 mg Q6H RESP THERAPY HHN Last administered on 08/01/18at 08:36; Admin Dose 1.25 MG; Start 07/30/18 at 20:00 Warfarin Sodium (Coumadin) 4 mg DAILY@17 PO Last administered on 07/31/18at 17:03; Admin Dose 4 MG; Start 07/31/18 at 17:00 CHRIS LAZAR Aug 01, 2018 11:29
--- NOTE | 2018-08-01 13:18 | PN ---
Date/Time of Note Date/Time of Note DATE: 08/01/18 TIME: 13:17 Assessment/Plan VTE Prophylaxis Risk score (from [facility])>0 risk: 7 SCD applied (from 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 Continue [place], monitor. Dr. Ashford is following in urology consultation. -Polymicrobial UTI, completed treatment with abx. Dr. Hughes is following in infection disease consultation. -Anemia of acute blood loss, transfuse PRN, monitor H&H. 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 -S/p Nose/oropharyngeal bleed on 06/11/2018, stopped after heparin was held. -Retroperitoneal bleed secondary to vascular injury status post stent placement. S/p CT guided placement of drainage catheter into pelvic hematoma on 06/05/18 and sequent removal. -Status post left heart catheterization with no significant obstructive coronary artery disease by Dr. Moreno on 05/27/2018. -Anemia of acute blood loss, status post blood transfusion, continue to monitor hemoglobin and hematocrit. -Urinary incontinence. -Acute illness myopathy -Status post mitral valve replacement with mechanical valve in 1999. Continue Coumadin, monitor PT/INR. -HTN, continue metoprolol -Hyperlipidemia -Hypothyroidism, continue levothyroxine -History of asthma Result Diagram: 07/30/1813 07/30/18 0613 Results 24hrs Laboratory Tests Test 08/01/18 11:16 Prothrombin Time 40.2 H Prothrombin Time Ratio 3.1 INR International Normalized Ratio 4.17 Subjective 24 Hr Interval Summary Free Text/Dictation Patient has no complaints Exam/Review of Systems Exam Vitals Vital Signs Date Temp Pulse Resp B/P (MAP) Pulse Ox O2 O2 Flow FiO2 Time Delivery Rate 08/01/18 98.0 83 18 112/56 98 12:01 (74) 08/01/18 21 08:38 07/30/18 Room Air 20:00 Intake and Output 07/31/18 07/31/18 08/01/18 1515:00 23:00 07:00 IntakeIntake Total 700 ml 600 ml OutputOutput Total 1500 ml 750 ml BalanceBalance -800 ml -150 ml Constitutional: well developed Head: normocephalic Neck: supple Respiratory: diminished breath sounds Cardiovascular: regular rate and rhythm Gastrointestinal: soft, non-tender Extremities: normal pulses Results Results 24hrs Laboratory Tests Test 08/01/18 11:16 Prothrombin Time 40.2 H Prothrombin Time Ratio 3.1 INR International Normalized Ratio 4.17 Medications Medication Current Medications Amlodipine Besylate (Norvasc) 5 mg DAILY PO ; Start 06/03/18 at 09:00; Status Hold Pantoprazole (Protonix Tab) 40 mg DAILY@06 PO Last administered on 08/01/18at 06:05; Admin Dose 40 MG; Start 06/05/18 at 06:00 Metoclopramide HCl (Reglan) 5 mg TID PRN IV Nausea; Start 06/06/18 at 11:00 Polyethylene Glycol (Miralax) 17 gm BID PRN PO CONSTIPATION; Start 06/06/18 at 14:00 Bisacodyl (Dulcolax Supp) 10 mg DAILY PRN [place] CONSTIPATION; Start 06/06/18 at 14:00 IV Flush (NS 10 ml) 10 ml PRN PRN IV IV PROTOCOL; Start 06/06/18 at 16:00 Nystatin (Nystatin Susp) 5 ml QID PO Last administered on 08/01/18at 08:19; Admin Dose 5 ML; Start 06/06/18 at 17:00 Ferrous Sulfate (Ferrous Sulfate (Ec)) 325 mg BID PO Last administered on 08/01/18at 08:21; Admin Dose 325 MG; Start 07/09/18 at 09:30 Docusate Sodium (Colace) 100 mg DAILY PO Last administered on 08/01/18at 08:19; Admin Dose 100 MG; Start 07/10/18 at 09:00 Acetaminophen (Tylenol Tab) 650 mg Q6H PRN PO MILD PAIN(1-3)OR ELEVATED TEMP Last administered on 07/14/18at 21:04; Admin Dose 650 MG; Start 07/14/18 at 21:00 Potassium Chloride (Klor-Con 10) 20 meq DAILY PO Last administered on 08/01/18at 08:19; Admin Dose 20 MEQ; Start 07/27/18 at 09:00 Albuterol/ Ipratropium (Duoneb) 3 ml Q6H RESP THERAPY PRN HHN SHORTNESS OF BREATH; Start 07/30/18 at 20:00 Levalbuterol (Xopenex Neb) 1.25 mg Q6H RESP THERAPY HHN Last administered on 08/01/18at 08:36; Admin Dose 1.25 MG; Start 07/30/18 at 20:00 Warfarin Sodium (Coumadin) 4 mg DAILY@17 PO Last administered on 07/31/18at 17:03; Admin Dose 4 MG; Start 07/31/18 at 17:00; Status Hold Metoprolol Tartrate (Lopressor) 25 mg BID PO ; Start 08/01/18 at 21:00 Bumetanide (Bumex) 1 mg BID PO ; Start 08/01/18 at 21:00 ABDIRASHID PRATHER Aug 01, 2018 13:17
--- NOTE | 2018-08-01 15:30 | CONS ---
Assessment/Plan Assessment/Plan Hospital Course (Demo Recall) # sepsis, cardiopulmonary - S/p severe sepsis due to UTI, resolved - S/p SIRS due to acute blood loss, resolved - S/p L heart catheterization on 05/27/2018 showing no significant obstructive CAD - CAD - S/p CABG in [place] in 1982 - H/o MVR with mechanical valve, in 1999 - Hypertension - PAF - Asthma # urology/renal, GI - s/p recurrent UTI on 07/15/2018 due to Citrobacter Freundii, Enterococcus species, MDR Enterobacter; s/p Zosyn->ertapenem - S/p UTI due to hafnai alvei and pediococci on 06/30/18. Pt completed pip/tazo (07/02/18-07/05/2018) for this episode - S/p UTI due to E. coli. Pt completed pip/tazo (06/02/2018-06/03/2018), ceftriaxone (06/04/2018-06/07/2018) for this episode - S/p CT guided placement of drainage catheter into pelvic hematoma 06/05/2018-->removed on 06/09/2018 - Hematuria caused by ruptured urinary bladder (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 - US Abdomen 07/18/18 showed Complex fluid collection about the anterior superior bladder measuring up to 10.0 x 8.6 x 7.2 cm. Bladder wall thickening. 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 his urology appointment on 09/02/2018 management d/w Pt, her and charge nurse Kareen Consultation Date/Type/Reason Admit Date/Time May 28, 2018 at 17:52 Initial Consult Date 06/03/18 Type of Consult ID Requesting Provider: JULY VALENTIN MD Date/Time of Note DATE: 08/01/18 TIME: 15:22 24 HR Interval Summary Free Text/Dictation Vincent catheter was changed Constitutional: no complaints Detailed Summary Eyes: no complaints Respiratory: no complaints Cardiovascular: no complaints Gastrointestinal: no complaints Genitourinary: other (+still has vincent catheter) Musculoskeletal: other (has been walking) Neurologic: No dizziness Exam/Review of Systems Exam Vitals Vital Signs Date Temp Pulse Resp B/P (MAP) Pulse Ox O2 O2 Flow FiO2 Time Delivery Rate 08/01/18 86 20 95 21 14:11 08/01/18 98.0 112/56 12:01 (74) 07/30/18 Room Air 20:00 Intake and Output 07/31/18 07/31/18 08/01/18 1515:00 23:00 07:00 IntakeIntake Total 700 ml 600 ml OutputOutput Total 1500 ml 750 ml BalanceBalance -800 ml -150 ml Constitutional: alert, oriented, well developed Psych: no complaints, nl mood/affect Head: normocephalic, atraumatic Eyes: nl conjunctiva, nl lids, nl sclera ENMT: nl external ears & nose, nl nasal mucosa & septum, mucosa pink and moist Neck: other (not swollen) Respiratory: other (normal respiratory effort) Cardiovascular: No edema Gastrointestinal: No distended Genitourinary - Female: other (+vincent catheter, no hematuria. slightly cloudy urine) Musculoskeletal: nl extremities to inspection Extremities: No edema Neurological: INFORMATION SECURITY RISK ANALYST II-XII intact, nl mental status, nl speech, nl strength Skin: nl turgor; No rash or lesions Results Result Diagram: 07/30/18 0613 07/30/18 06 Results 24hrs Laboratory Tests Test 08/01/18 11:16 Prothrombin Time 40.2 H Prothrombin Time Ratio 3.1 INR International Normalized Ratio 4.17 Medications Medication Current Medications Amlodipine Besylate (Norvasc) 5 mg DAILY PO ; Start 06/03/18 at 09:00; Status Hold Pantoprazole (Protonix Tab) 40 mg DAILY@06 PO Last administered on 08/01/18at 06:05; Admin Dose 40 MG; Start 06/05/18 at 06:00 Metoclopramide HCl (Reglan) 5 mg TID PRN IV Nausea; Start 06/06/18 at 11:00 Polyethylene Glycol (Miralax) 17 gm BID PRN PO CONSTIPATION; Start 06/06/18 at 14:00 Bisacodyl (Dulcolax Supp) 10 mg DAILY PRN [place] CONSTIPATION; Start 06/06/18 at 14:00 IV Flush (NS 10 ml) 10 ml PRN PRN IV IV PROTOCOL; Start 06/06/18 at 16:00 Nystatin (Nystatin Susp) 5 ml QID PO Last administered on 08/01/18at 13:39; Admin Dose 5 ML; Start 06/06/18 at 17:00 Ferrous Sulfate (Ferrous Sulfate (Ec)) 325 mg BID PO Last administered on 08/01 08:21; Admin Dose 325 MG; Start 07/09/18 at 09:30 Docusate Sodium (Colace) 100 mg DAILY PO Last administered on 08/01/18 08:19; Admin Dose 100 MG; Start 07/10/18 at 09:00 Acetaminophen (Tylenol Tab) 650 mg Q6H PRN PO MILD PAIN(1-3)OR ELEVATED TEMP Last administered on 07/14/18at 21:04; Admin Dose 650 MG; Start 07/14/18 at 21:00 Potassium Chloride (Klor-Con 10) 20 meq DAILY PO Last administered on 08/01/18 08:19; Admin Dose 20 MEQ; Start 07/27/18 at 09:00 Albuterol/ Ipratropium (Duoneb) 3 ml Q6H RESP THERAPY PRN HHN SHORTNESS OF BREATH; Start 07/30/18 at 20:00 Levalbuterol (Xopenex Neb) 1.25 mg Q6H RESP THERAPY HHN Last administered on 08/01/18at 14:10; Admin Dose 1.25 MG; Start 07/30/18 at 20:00 Warfarin Sodium (Coumadin) 4 mg DAILY@17 PO Last administered on 07/31/18at 17:03; Admin Dose 4 MG; Start 07/31/18 at 17:00; Status Hold Metoprolol Tartrate (Lopressor) 25 mg BID PO ; Start 08/01/18 at 21:00 Bumetanide (Bumex) 1 mg BID PO ; Start 08/01/18 at 21:00 SHARI CROWELL M.D. Aug 01, 2018 15:30
[2018-08-01] MEDS: ATORVASTATIN 10 MG TAB PO SCH (20:35)
[2018-08-01] MEDS: LATANOPROST 0.005% 2.5 ML OPH BOTH EYES SCH (20:37)
[2018-08-02] VITALS (10 sets, daily range): BP systolic 98–130; BP diastolic 53–70; PULSE 80–86; RESP 18
[2018-08-02] MEDS: LEVALBUTEROL (NEB) 1.25 MG/0.5 ML AMP HHN SCH ×4 (02:00→19:39)
[2018-08-02] MEDS: LEVOTHYROXINE 50 MCG TAB GTB SCH (06:18)
[2018-08-02] MEDS: PANTOPRAZOLE (EC) 40 MG TAB PO SCH (06:18)
[2018-08-02] MEDS: DOCUSATE SODIUM 100 MG CAP PO SCH (09:09)
[2018-08-02] MEDS: BUMETANIDE 1 MG TAB PO SCH ×2 (09:09→20:44)
[2018-08-02] MEDS: NYSTATIN SUSP 5 ML CUP PO SCH ×4 (09:09→20:44)
[2018-08-02] MEDS: POTASSIUM CHLORIDE (SR) 10 MEQ TAB PO SCH (09:09)
[2018-08-02] MEDS: FERROUS SULFATE (EC) 325 MG TAB PO SCH ×2 (09:10→20:44)
[2018-08-02] MEDS: METOPROLOL 25 MG TAB PO SCH ×2 (09:10→20:44)
[2018-08-02] MEDS: MOMETASONE 0.24 GM INHALER INH SCH (09:13)
--- NOTE | 2018-08-02 09:58 | PN ---
DATE: 08/02/2018 SUBJECTIVE: The patient is stable, no events overnight. No fevers, chills, nausea, or vomiting. OBJECTIVE: VITAL SIGNS: Blood pressure is 108/53, respirations 18, pulse 83, temperature 98.0. HEENT: Head is normocephalic. NECK: Supple. HEART: Regular rate. LUNGS: Show diminished breath sounds at the base. ABDOMEN: Soft, nontender to palpation without rebound or guarding. EXTREMITIES: Negative for clubbing, cyanosis. Trace edema. DERMATOLOGIC: No rashes. MUSCULOSKELETAL: No joint effusion. NEUROLOGIC: No change in exam. MEDICATIONS: The patient's medications have been reviewed. LABORATORY DATA: Reviewed. ASSESSMENT AND PLAN: 1. Nonoliguric acute kidney injury with previously normal baseline creatinine. Etiology is secondar y to acute tubular necrosis. Renal function has been improving. Continue to monitor. 2. Hematuria, resolved. 3. Hypokalemia, replete with potassium chloride. 4. Volume overload, improving. Continue current diuretic regimen. 5. Anemia. Continue to monitor hemoglobin and hematocrit levels. 6. Mechanical heart valve. Continue anticoagulation, to be adjusted per cardiology. 7. Sepsis secondary to urinary tract infection. The patient is completing antibiotic course. 8. Hypothyroidism. Continue Synthroid. 9. Dyslipidemia. 10. Hypertension. Continue current blood pressure regimen. 11. History of liver cirrhosis. Dictated By: GWYN FABIAN DO NR/NTS Conf#: [id number] DID#: [id number] CC: JULY VALENTIN MD; CHRIS LAZAR MD; JOAQUIN DE LEON MD;*EndCC*
--- NOTE | 2018-08-02 10:24 | CONS ---
Consult Date/Type/Reason Admit Date/Time May 28, 2018 at 17:52 Initial Consult Date Type of Consultation: Urology Requesting Provider: JULY VALENTIN MD Date/Time of Note DATE: 08/02/18 TIME: 10:21 Subjective NO acute events - BP in good range - INR stable - no hematuria now. ROS: No fever, no chills, no nausea, no vomiting, no diarrhea/constipation No recent weight changes No chest pain, no PND, no orthopnea - mild SOB, increased ambulation No dizziness, blurred vision No thirst, no heat or cold intolerance Objective Vitals Vital Signs Date Temp Pulse Resp B/P (MAP) Pulse Ox O2 O2 Flow FiO2 Time Delivery Rate 08/02/18 84 08:01 08/02/18 98.0 18 108/53 98 07:39 (71) 08/02/18 Room Air 04:21 08/01/18 21 21:15 Intake and Output 08/01/18 08/01/18 08/02/18 1515:00 23:00 07:00 IntakeIntake Total 700 ml 400 ml OutputOutput Total 1300 ml 1000 ml BalanceBalance -600 ml -600 ml Exam General: WN/WD/NAD, AOx 3 HEENT: Unicetric/atraumatic/EOMI (follow commands) NECK: JVD elevated, no thyromegaly Lymph: no lymphadenopathy HEART: regular with no S3, II/ systolic murmur at apex, mech click LUNGS: Coarse sounds ABD: soft, NT, ND, +BS : Intact - vincent Neuro: non focal SKIN: chronic changes EXT: trace edema Results/Medications Result Diagram: 07/30/18 0613 08/02/18 0553 Results 24 hrs Laboratory Tests Test 08/01/18 11:16 08/02/18 05:53 Prothrombin Time 40.2 H Prothrombin Time Ratio 3.1 INR International Normalized Ratio 4.17 Sodium Level 139 Potassium Level 3.4 L Chloride Level 103 Carbon Dioxide Level 30 Anion Gap 6 Blood Urea Nitrogen 20 Creatinine 0.77 Est Glomerular Filtrat Rate mL/min > 60 Glucose Level 121 Calcium Level 9.3 Phosphorus Level 4.1 Magnesium Level 1.7 Home Meds Active Scripts Ferrous Sulfate* (Ferrous Sulfate*) 325 Mg Tabec, 325 MG PO BID for 30 Days, TAB Prov:KRISTY MCCULLOUGH 07/28/18 Pantoprazole* (Pantoprazole*) 40 Mg Tablet.dr, 40 MG PO DAILY@06 for 30 Days Prov:KRISTY MCCULLOUGH 07/28/18 Docusate Sodium* (Colace*) 100 Mg Capsule, 100 MG PO DAILY for 30 Days, CAP Prov:KRISTY MCCULLOUGH 07/28/18 Latanoprost (Latanoprost) 2.5 Ml Drops, 1 DROP BOTH EYES HS for 30 Days, BOTTLE Prov:KRISTY MCCULLOUGH 07/28/18 Mometasone Furoate (Asmanex) 220 Mcg Aer.pow.ba, 1 PUFF INH DAILY for 30 Days Prov:KRISTY MCCULLOUGH 07/28/18 Potassium Chloride* (K-Dur*) 10 Meq Tab.prt.sr, 20 MEQ PO DAILY for 30 Days Prov:KRISTY MCCULLOUGH 07/28/18 Bumetanide* (Bumetanide*) 1 Mg Tablet, 1 MG PO DAILY for 30 Days, TAB Prov:KRISTY MCCULLOUGH 07/28/18 Metoprolol Tartrate* (Lopressor*) 25 Mg Tab, 12.5 MG PO BID for 30 Days, TAB Prov:KRISTY MCCULLOUGH 07/28/18 Amiodarone Hcl* (Amiodarone Hcl*) 200 Mg Tablet, 200 MG PO DAILY for 30 Days, TAB Prov:KRISTY MCCULLOUGH 07/28/18 Warfarin Sodium* (Coumadin*) 5 Mg Tablet, 5 MG PO Q TU,,SAT for 30 Days, TAB Prov:KRISTY MCCULLOUGH 07/28/18 Warfarin Sodium* (Coumadin*) 4 Mg Tablet, 4 MG PO Q MON,WED,FRI,SUN for 30 Days, TAB Prov:KRISTY MCCULLOUGH 07/28/18 Simvastatin* (Zocor*) 20 Mg Tablet, 20 MG PO QHS, #30 TAB Prov:KRISTY MCCULLOUGH 07/28/18 Levothyroxine Sodium* (Levothyroxine Sodium*) 50 Mcg Tablet, 50 MCG PO BEFORE BREAKFAST for 30 Days, TAB Prov:KRISTY MCCULLOUGH 07/28/18 Reported Medications Albuterol Sulfate* (Ventolin HFA*) 18 Gm Hfa.aer.ad, 2 PUFF INHALATION Q4H, #1 INHALER 05/26/18 Ergocalciferol (Vitamin D2) (VITAMIN D2) 50,000 Unit Capsule, 68469 UNIT PO [id number], CAP 05/23/18 Furosemide* (Furosemide*) 20 Mg Tablet, 20 MG PO DAILY, #60 TAB TAKE Q 2 DAYS 05/23/18 Ranitidine Hcl* (Ranitidine Hcl*) 150 Mg Tablet, 150 MG PO HS, #30 TAB 05/23/18 Acetaminophen (Mapap) 500 Mg Capsule, 500 MG PO BID PRN for PAIN, CAP 05/23/18 Spironolactone* (Aldactone*) 25 Mg Tablet, 25 MG PO DAILY, #30 TAB 05/23/18 Beclomethasone Dipropionate (Qvar Redihaler (40 MCG)) 10.6 Gm Hfa.aeroba, 10.6 GM IH DAILY, INH 05/23/18 Amlodipine Besylate* (Norvasc*) 5 Mg Tablet, 5 MG PO BID, TAB 05/23/18 Losartan-Hydrochlorothiazide (Losartan-HCTZ) 100-25 Mg Tab, 1 TAB PO DAILY, TAB 05/23/18 Medications Current Medications Amlodipine Besylate (Norvasc) 5 mg DAILY PO ; Start 06/03/18 at 09:00; Status Hold Pantoprazole (Protonix Tab) 40 mg DAILY@06 PO Last administered on 08/02/18at 06:18; Admin Dose 40 MG; Start 06/05/18 at 06:00 Metoclopramide HCl (Reglan) 5 mg TID PRN IV Nausea; Start 06/06/18 at 11:00 Polyethylene Glycol (Miralax) 17 gm BID PRN PO CONSTIPATION; Start 06/06/18 at 14:00 Bisacodyl (Dulcolax Supp) 10 mg DAILY PRN [place] CONSTIPATION; Start 06/06/18 at 14:00 IV Flush (NS 10 ml) 10 ml PRN PRN IV IV PROTOCOL; Start 06/06/18 at 16:00 Nystatin (Nystatin Susp) 5 ml QID PO Last administered on 08/02/18at 09:09; Adm in Dose 5 ML; Start 06/06/18 at 17:00 Ferrous Sulfate (Ferrous Sulfate (Ec)) 325 mg BID PO Last administered on 08/02/18 09:10; Admin Dose 325 MG; Start 07/09/18 at 09:30 Docusate Sodium (Colace) 100 mg DAILY PO Last administered on 08/02/18 09:09; Admin Dose 100 MG; Start 07/10/18 at 09:00 Acetaminophen (Tylenol Tab) 650 mg Q6H PRN PO MILD PAIN(1-3)OR ELEVATED TEMP Last administered on 07/14/18 21:04; Admin Dose 650 MG; Start 07/14/18 at 21:00 Potassium Chloride (Klor-Con 10) 20 meq DAILY PO Last administered on 08/02/18 09:09; Admin Dose 20 MEQ; Start 07/27/18 at 09:00 Albuterol/ Ipratropium (Duoneb) 3 ml Q6H RESP THERAPY PRN HHN SHORTNESS OF BREATH; Start 07/30/18 at 20:00 Levalbuterol (Xopenex Neb) 1.25 mg Q6H RESP THERAPY HHN Last administered on 08/01/18 14:10; Admin Dose 1.25 MG; Start 07/30/18 at 20:00 Warfarin Sodium (Coumadin) 4 mg DAILY@17 PO Last administered on 07/31/18 17:03; Admin Dose 4 MG; Start 07/31/18 at 17:00; Status Hold Metoprolol Tartrate (Lopressor) 25 mg BID PO Last administered on 08/02/18 09:10; Admin Dose 25 MG; Start 08/01/18 at 21:00 Bumetanide (Bumex) 1 mg BID PO Last administered on 08/02/18 09:09; Admin Dose 1 MG; Start 08/01/18 at 21:00 Atorvastatin Calcium (Lipitor) 10 mg HS PO Last administered on 08/01/18 20:35; Admin Dose 10 MG; Start 08/01/18 at 21:00 Latanoprost (Xalatan) 1 drop HS BOTH EYES Last administered on 08/01/18 20:37; Admin Dose 1 DROP; Start 08/01/18 at 21:00 Levothyroxine Sodium (Synthroid) 50 mcg DAILY@06 GTB Last administered on 08/02/18 06:18; Admin Dose 50 MCG; Start 08/02/18 at 06:00 Mometasone Furoate (Asmanex) 1 puff DAILY INH Last administered on 08/02/18at 09:13; Admin Dose 1 PUFF; Start 08/02/18 at 09:00 Assessment/Plan Hospital Course (Demo Recall) 1.Cad s/p C with no sig obstructive cad - on med rx now - treated - no CP now - stable - on meds - treated. Stable. 2.HTN - treated - well Rx - well controlled - controlled - well maintained on meds. 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 STILL with hematuria - urology follows. Still heaturia - con't to monitor - H/H trending down - might need blood Rx. - H/H stable now. 4.HL 5.MVR-mechanical - stable by exam - soft click by exam - stable Stable by exam.Soft click. Stable by exam. Con't to follow. INR dosing daily. 6.Anemia- s/p repair of R [employer] ROOM DO[employer]/illiac. Now stabilizing - still with hematuria, a little better H/H at 9.3. Treated. 7.Hypothyroid 8. FOURNIER-negative Head CT 9. Fevers-with positive ua - now resolved. RESOLVED. 10. Hematuria - urology follows - might need transfer to [facility] - no hematuria now. BETTER. CECILIA MOCTEZUMA MD Aug 02, 2018 10:24
[2018-08-02] MEDS ORDERED: POTASSIUM CHLORIDE (SR) 20 MEQ TAB PO STA (11:45)
--- NOTE | 2018-08-02 11:54 | PN ---
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 Continue [place], monitor. Dr. Ashford is following in urology consultation. -Polymicrobial UTI, completed treatment with abx. Dr. Hughes is following in infection disease consultation. -Anemia of acute blood loss, transfuse PRN, monitor H&H. 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 -S/p Nose/oropharyngeal bleed on 06/11/2018, stopped after heparin was held. -Retroperitoneal bleed secondary to vascular injury status post stent placement. S/p CT guided placement of drainage catheter into pelvic hematoma on 06/05/18 and sequent removal. -Status post left heart catheterization with no significant obstructive coronary artery disease by Dr. Moreno on 05/27/2018. -Anemia of acute blood loss, status post blood transfusion, continue to monitor hemoglobin and hematocrit. -Urinary incontinence. -Acute illness myopathy -Status post mitral valve replacement with mechanical valve in 1999. Continue Coumadin, monitor PT/INR. -HTN, continue metoprolol -Hyperlipidemia -Hypothyroidism, continue levothyroxine -History of asthma Result Diagram: 07/30/18 0613 08/02/18 0553 Results 24hrs Laboratory Tests Test 08/02/18 05:53 Sodium Level 139 Potassium Level 3.4 L Chloride Level 103 Carbon Dioxide Level 30 Anion Gap 6 Blood Urea Nitrogen 20 Creatinine 0.77 Est Glomerular Filtrat Rate mL/min > 60 Glucose Level 121 Calcium Level 9.3 Phosphorus Level 4.1 Magnesium Level 1.7 Exam/Review of Systems Exam Vitals Vital Signs Date Temp Pulse Resp B/P (MAP) Pulse Ox O2 O2 Flow FiO2 Time Delivery Rate 08/02/18 84 08:01 08/02/18 98.0 18 108/53 98 07:39 (71) 08/02/18 Room Air 04:21 08/01/18 21 21:15 Intake and Output 08/01/18 08/01/18 08/02/18 1414:59 22:59 06:59 IntakeIntake Total 700 ml OutputOutput Total 1300 ml BalanceBalance -600 ml Results Results 24hrs Laboratory Tests Test 08/02/18 05:53 Sodium Level 139 Potassium Level 3.4 L Chloride Level 103 Carbon Dioxide Level 30 Anion Gap 6 Blood Urea Nitrogen 20 Creatinine 0.77 Est Glomerular Filtrat Rate mL/min > 60 Glucose Level 121 Calcium Level 9.3 Phosphorus Level 4.1 Magnesium Level 1.7 Medications Medication Current Medications Amlodipine Besylate (Norvasc) 5 mg DAILY PO ; Start 06/03/18 at 09:00; Status Hold Pantoprazole (Protonix Tab) 40 mg DAILY@06 PO Last administered on 08/02/18at 06:18; Admin Dose 40 MG; Start 06/05/18 at 06:00 Metoclopramide HCl (Reglan) 5 mg TID PRN IV Nausea; Start 06/06/18 at 11:00 Polyethylene Glycol (Miralax) 17 gm BID PRN PO CONSTIPATION; Start 06/06/18 at 14:00 Bisacodyl (Dulcolax Supp) 10 mg DAILY PRN [place] CONSTIPATION; Start 06/06/18 at 14:00 IV Flush (NS 10 ml) 10 ml PRN PRN IV IV PROTOCOL; Start 06/06/18 at 16:00 Nystatin (Nystatin Susp) 5 ml QID PO Last administered on 08/02/18at 09:09; Admin Dose 5 ML; Start 06/06/18 at 17:00 Ferrous Sulfate (Ferrous Sulfate (Ec)) 325 mg BID PO Last administered on 08/02/18at 09:10; Admin Dose 325 MG; Start 07/09/18 at 09:30 Docusate Sodium (Colace) 100 mg DAILY PO Last administered on 08/02/18 09:09; Admin Dose 100 MG; Start 07/10/18 at 09:00 Acetaminophen (Tylenol Tab) 650 mg Q6H PRN PO MILD PAIN(1-3)OR ELEVATED TEMP Last administered on 07/14/18at 21:04; Admin Dose 650 MG; Start 07/14/18 at 21:00 Potassium Chloride (Klor-Con 10) 20 meq DAILY PO Last administered on 08/02/18at 09:09; Admin Dose 20 MEQ; Start 07/27/18 at 09:00 Albuterol/ Ipratropium (Duoneb) 3 ml Q6H RESP THERAPY PRN HHN SHORTNESS OF BREATH; Start 07/30/18 at 20:00 Levalbuterol (Xopenex Neb) 1.25 mg Q6H RESP THERAPY HHN Last administered on 08/01/18 14:10; Admin Dose 1.25 MG; Start 07/30/18 at 20:00 Warfarin Sodium (Coumadin) 4 mg DAILY@17 PO Last administered on 07/31/18 17: 03; Admin Dose 4 MG; Start 07/31/18 at 17:00; Status Hold Metoprolol Tartrate (Lopressor) 25 mg BID PO Last administered on 08/02/18 09:10; Admin Dose 25 MG; Start 08/01/18 at 21:00 Bumetanide (Bumex) 1 mg BID PO Last administered on 08/02/18 09:09; Admin Dose 1 MG; Start 08/01/18 at 21:00 Atorvastatin Calcium (Lipitor) 10 mg HS PO Last administered on 08/01/18 20:35; Admin Dose 10 MG; Start 08/01/18 at 21:00 Latanoprost (Xalatan) 1 drop HS BOTH EYES Last administered on 08/01/18 20:37; Admin Dose 1 DROP; Start 08/01/18 at 21:00 Levothyroxine Sodium (Synthroid) 50 mcg DAILY@06 GTB Last administered on 08/02/18 06:18; Admin Dose 50 MCG; Start 08/02/18 at 06:00 Mometasone Furoate (Asmanex) 1 puff DAILY INH Last administered on 08/02/18 09:13; Admin Dose 1 PUFF; Start 08/02/18 at 09:00 DELICIA MATUTE Aug 02, 2018 11:54
--- NOTE | 2018-08-02 20:36 | CONS ---
Assessment/Plan Assessment/Plan Hospital Course (Demo Recall) # sepsis, cardiopulmonary - S/p severe sepsis due to UTI, resolved - S/p SIRS due to acute blood loss, resolved - S/p L heart catheterization on 05/27/2018 showing no significant obstructive CAD - CAD - S/p CABG in [place] in 1982 - H/o MVR with mechanical valve, in 1999 - Hypertension - PAF - Asthma # urology/renal, GI - s/p recurrent UTI on 07/15/2018 due to Citrobacter Freundii, Enterococcus species, MDR Enterobacter; s/p Zosyn->ertapenem - S/p UTI due to hafnai alvei and pediococci on 06/30/18. Pt completed pip/tazo (07/02/18-07/05/2018) for this episode - S/p UTI due to E. coli. Pt completed pip/tazo (06/02/2018-06/03/2018), ceftriaxone (06/04/2018-06/07/2018) for this episode - S/p CT guided placement of drainage catheter into pelvic hematoma 06/05/2018-->removed on 06/09/2018 - Hematuria caused by ruptured urinary bladder (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 - US Abdomen 07/18/18 showed Complex fluid collection about the anterior superior bladder measuring up to 10.0 x 8.6 x 7.2 cm. Bladder wall thickening. 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 her urology appointment on 09/09/2018 and the daughter is calling periordically to look for cancelation management d/w Pt, her daughter Consultation Date/Type/Reason Admit Date/Time May 28, 2018 at 17:52 Initial Consult Date 06/03/18 Type of Consult ID Requesting Provider: JULY VALENTIN MD Date/Time of Note DATE: 08/02/18 TIME: 20:34 24 HR Interval Summary Constitutional: no complaints Detailed Summary Eyes: no complaints ENT: no complaints Respiratory: no complaints Cardiovascular: no complaints Gastrointestinal: no complaints Genitourinary: other (+FC) Musculoskeletal: no complaints Skin: no complaints Neurologic: no complaints Exam/Review of Systems Exam Vitals Vital Signs Date Temp Pulse Resp B/P (MAP) Pulse Ox O2 O2 Flow FiO2 Time Delivery Rate 08/02/18 83 16:01 08/02/18 98.0 18 115/58 98 15:41 (77) 08/02/18 Room Air 04:21 08/01/18 21 21:15 Intake and Output 08/01/18 08/01/18 08/02/18 1414:59 22:59 06:59 IntakeIntake Total 700 ml OutputOutput Total 1300 ml BalanceBalance -600 ml Constitutional: alert, oriented, well developed Psych: no complaints, nl mood/affect Head: normocephalic, atraumatic Eyes: nl conjunctiva, nl lids, nl sclera ENMT: nl external ears & nose, nl nasal mucosa & septum, mucosa pink and moist Neck: non-tender, other (not swollen) Respiratory: other (normal resp effort) Cardiovascular: No edema Gastrointestinal: soft, distended Genitourinary - Female: other (+FC) Musculoskeletal: nl extremities to inspection, nl gait and stance Extremities: No edema Neurological: USPS LETTER CARRIER II-XII intact, nl mental status, nl speech Skin: nl turgor; No rash or lesions Results Result Diagram: 07/30/18 0613 08/02/18 0553 Results 24hrs Laboratory Tests Test 08/02/18 05:53 Sodium Level 139 Potassium Level 3.4 L Chloride Level 103 Carbon Dioxide Level 30 Anion Gap 6 Blood Urea Nitrogen 20 Creatinine 0.77 Est Glomerular Filtrat Rate mL/min > 60 Glucose Level 121 Calcium Level 9.3 Phosphorus Level 4.1 Magnesium Level 1.7 Medications Medication Current Medications Amlodipine Besylate (Norvasc) 5 mg DAILY PO ; Start 06/03/18 at 09:00; Status Hold Pantoprazole (Protonix Tab) 40 mg DAILY@06 PO Last administered on 08/02/18 06:18; Admin Dose 40 MG; Start 06/05/18 at 06:00 Metoclopramide HCl (Reglan) 5 mg TID PRN IV Nausea; Start 06/06/18 at 11:00 Polyethylene Glycol (Miralax) 17 gm BID PRN PO CONSTIPATION; Start 06/06/18 at 14:00 Bisacodyl (Dulcolax Supp) 10 mg DAILY PRN [place] CONSTIPATION; Start 06/06/18 at 14:00 IV Flush (NS 10 ml) 10 ml PRN PRN IV IV PROTOCOL; Start 06/06/18 at 16:00 Nystatin (Nystatin Susp) 5 ml QID PO Last administered on 08/02/18 16:46; Admin Dose 5 ML; Start 06/06/18 at 17:00 Ferrous Sulfate (Ferrous Sulfate (Ec)) 325 mg BID PO Last administered on 08/02/18 09:10; Admin Dose 325 MG; Start 07/09/18 at 09:30 Docusate Sodium (Colace) 100 mg DAILY PO Last administered on 08/02/18 09:09; Admin Dose 100 MG; Start 07/10/18 at 09:00 Acetaminophen (Tylenol Tab) 650 mg Q6H PRN PO MILD PAIN(1-3)OR ELEVATED TEMP Last administered on 07/14/18 21:04; Admin Dose 650 MG; Start 07/14/18 at 21:00 Albuterol/ Ipratropium (Duoneb) 3 ml Q6H RESP THERAPY PRN HHN SHORTNESS OF BREATH; Start 07/30/18 at 20:00 Levalbuterol (Xopenex Neb) 1.25 mg Q6H RESP THERAPY HHN Last administered on 08/01/18 14:10; Admin Dose 1.25 MG; Start 07/30/18 at 20:00 Warfarin Sodium (Coumadin) 4 mg DAILY@17 PO Last administered on 07/31/18 17:03; Admin Dose 4 MG; Start 07/31/18 at 17:00; Status Hold Metoprolol Tartrate (Lopressor) 25 mg BID PO Last administered on 08/02/18 09:10; Admin Dose 25 MG; Start 08/01/18 at 21:00 Bumetanide (Bumex) 1 mg BID PO Last administered on 08/02/18 09:09; Admin Dose 1 MG; Start 08/01/18 at 21:00 Atorvastatin Calcium (Lipitor) 10 mg HS PO Last administered on 08/01/18 20:35; Admin Dose 10 MG; Start 08/01/18 at 21:00 Latanoprost (Xalatan) 1 drop HS BOTH EYES Last administered on 08/01/18 20:37; Admin Dose 1 DROP; Start 08/01/18 at 21:00 Levothyroxine Sodium (Synthroid) 50 mcg DAILY@06 GTB Last administered on 08/02/18 06:18; Admin Dose 50 MCG; Start 08/02/18 at 06:00 Mometasone Furoate (Asmanex) 1 puff DAILY INH Last administered on 08/02/18 09:13; Admin Dose 1 PUFF; Start 08/02/18 at 09:00 Potassium Chloride (Klor-Con 10) 30 meq DAILY PO ; Start 08/03/18 at 09:00 SHARI CROWELL M.D. Aug 02, 2018 20:36
[2018-08-02] MEDS: LATANOPROST 0.005% 2.5 ML OPH BOTH EYES SCH (20:44)
[2018-08-02] MEDS: ATORVASTATIN 10 MG TAB PO SCH (20:44)
[2018-08-03] VITALS (10 sets, daily range): BP systolic 106–120; BP diastolic 52–59; PULSE 79–86; RESP 18
[2018-08-03] MEDS: LEVALBUTEROL (NEB) 1.25 MG/0.5 ML AMP HHN SCH ×5 (02:00→20:34)
[2018-08-03] MEDS: PANTOPRAZOLE (EC) 40 MG TAB PO SCH (05:30)
[2018-08-03] MEDS: LEVOTHYROXINE 50 MCG TAB GTB SCH (05:30)
[2018-08-03] MEDS: DOCUSATE SODIUM 100 MG CAP PO SCH (09:15)
[2018-08-03] MEDS: BUMETANIDE 1 MG TAB PO SCH ×2 (09:15→20:30)
[2018-08-03] MEDS: POTASSIUM CHLORIDE (SR) 10 MEQ TAB PO SCH (09:15)
[2018-08-03] MEDS: FERROUS SULFATE (EC) 325 MG TAB PO SCH ×2 (09:16→20:30)
[2018-08-03] MEDS: SPIRONOLACTONE 25 MG TAB PO SCH (09:16)
[2018-08-03] MEDS: METOPROLOL 25 MG TAB PO SCH ×2 (09:16→20:31)
[2018-08-03] MEDS: MOMETASONE 0.24 GM INHALER INH SCH (09:17)
[2018-08-03] MEDS: NYSTATIN SUSP 5 ML CUP PO SCH ×4 (09:18→20:30)
--- NOTE | 2018-08-03 09:32 | PN ---
DATE: 08/03/2018 SUBJECTIVE: The patient is stable, no events overnight. No fevers, chills, nausea, or vomiting. OBJECTIVE: VITAL SIGNS: Blood pressure is 112/52, pulse 83, respirations 18, temperature 98.3. HEENT: Head is normocephalic. NECK: Supple. HEART: Regular rate. LUNGS: Show diminished breath sounds at the base. ABDOMEN: Soft, nontender to palpation without rebound or guarding. EXTREMITIES: Negative for clubbing, cyanosis, no edema. DERMATOLOGIC: No rashes. MUSCULOSKELETAL: No joint effusion. NEUROLOGIC: No change in exam. MEDICATIONS: Reviewed. LABORATORY DATA: From 08/03/2018 was reviewed. ASSESSMENT AND PLAN: 1. Nonoliguric acute kidney injury with previously normal baseline creatinine. Etiology of acute ki dney injury is secondary to acute tubular necrosis. Renal function is improved. Continue current tr eatment plan, supportive care, renally dose all medicines. 2. Hematuria, resolved. 3. Hypokalemia. Continue to monitor and replete with potassium chloride. 4. Volume overload, improved. Continue diuretic therapy. 5. Anemia. Monitor hemoglobin and hematocrit levels. 6. Mechanical heart valve. Continue anticoagulation to be adjusted by Cardiology. 7. Sepsis secondary to urinary tract infection. The patient is completing antibiotic course. 8. Hypothyroidism. Continue Synthroid. 9. Dyslipidemia. 10. Hypertension. Continue current blood pressure regimen. 11. History of liver cirrhosis. Dictated By: GWYN FABIAN DO NR/NTS Conf#: [id number] DID#: [id number] CC: JULY VALENTIN MD; JOAQUIN DE LEON MD; CHRIS LAZAR MD;*EndCC*
[2018-08-03] MEDS: MAGNESIUM SULFATE 2 GM/50 ML 50 ML IVPB ONE ×2 (10:46→13:07)
[2018-08-03] MEDS ORDERED: POTASSIUM CHLORIDE (SR) 20 MEQ TAB PO ONE (12:00)
--- NOTE | 2018-08-03 12:55 | CONS ---
Assessment/Plan Assessment/Plan Hospital Course (Demo Recall) # sepsis, cardiopulmonary - S/p severe sepsis due to UTI, resolved - S/p SIRS due to acute blood loss, resolved - S/p L heart catheterization on 05/27/2018 showing no significant obstructive CAD - CAD - S/p CABG in [place] in 1982 - H/o MVR with mechanical valve, in 1999 - Hypertension - PAF - Asthma # urology/renal, GI - s/p recurrent UTI on 07/15/2018 due to Citrobacter Freundii, Enterococcus species, MDR Enterobacter; s/p Zosyn->ertapenem - S/p UTI due to hafnai alvei and pediococci on 06/30/18. Pt completed pip/tazo (07/02/18-07/05/2018) for this episode - S/p UTI due to E. coli. Pt completed pip/tazo (06/02/2018-06/03/2018), ceftriaxone (06/04/2018-06/07/2018) for this episode - S/p CT guided placement of drainage catheter into pelvic hematoma 06/05/2018-->removed on 06/09/2018 - Hematuria caused by ruptured urinary bladder (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 - US Abdomen 07/18/18 showed Complex fluid collection about the anterior superior bladder measuring up to 10.0 x 8.6 x 7.2 cm. Bladder wall thickening. 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, s/p covered stent placement 6 x 100 mm right common femoral artery and right external iliac artery, abdominal aortogram, catheter introduction to the abdominal aorta, JOSÉ MIGUEL guidance into the central artery 06/02/2018 - S/p retroperitoneal bleed - S/p acute anemia requiring PRBC # endo - Hyperlipidemia - Hypothyroidism Recommendations: - will send UTI workup if Pt becomes symptomatic and/or lab shows a return of infections - ordered MICHELEE JOSÉ MIGUEL; as long as an IV catheter is established, PICC may be discontinued her urology appointment on 09/09/2018 and the daughter is calling periordically to look for cancelation management d/w Pt, her son and GONZALO Hdez Consultation Date/Type/Reason Admit Date/Time May 28, 2018 at 17:52 Initial Consult Date 06/03/18 Type of Consult ID Requesting Provider: JULY VALENTIN MD Date/Time of Note DATE: 08/03/18 TIME: 12:48 24 HR Interval Summary Constitutional: no complaints Detailed Summary Eyes: no complaints ENT: no complaints Respiratory: no complaints Cardiovascular: no complaints, other (Pt's son is asking if PICC may be removed; it can infuse but cannot withdraw blood) Gastrointestinal: no complaints Genitourinary: No bleeding, No dysuria, No hematuria Musculoskeletal: no complaints Skin: no complaints Neurologic: no complaints Exam/Review of Systems Exam Vitals Vital Signs Date Temp Pulse Resp B/P (MAP) Pulse Ox O2 O2 Flow FiO2 Time Delivery Rate 08/03/18 98.2 79 18 109/53 94 Room Air 11:15 (71) 08/01/18 21 21:15 Intake and Output 08/02/18 08/02/18 08/03/18 1515:00 23:00 07:00 IntakeIntake Total 700 ml 400 ml OutputOutput Total 1300 ml 950 ml BalanceBalance -600 ml -550 ml Constitutional: alert, oriented, well developed Psych: no complaints, nl mood/affect Head: normocephalic, atraumatic Eyes: nl conjunctiva, nl lids, nl sclera ENMT: nl external ears & nose, nl nasal mucosa & septum, mucosa pink and moist Neck: other (not swollen) Respiratory: other (normal resp effort) Cardiovascular: No edema Gastrointestinal: soft, non-tender Genitourinary - Female: other (FC with yellow urine and sediment) Musculoskeletal: nl extremities to inspection Extremities: No edema Neurological: ORTHOTIC/PROSTHETIC PRACTITIONER II-XII intact, nl mental status, nl speech, nl strength Skin: nl turgor, other (PICC site apepears clean) Results Result Diagram: 08/03/18 0658 08/03/18 0658 Results 24hrs Laboratory Tests Test 08/03/18 06:58 White Blood Count 4.1 #L Red Blood Count 3.06 L Hemoglobin 9.7 L Hematocrit 29.6 L Mean Corpuscular Volume 96.7 Mean Corpuscular Hemoglobin 31.7 Mean Corpuscular Hemoglobin Concent 32.8 Red Cell Distribution Width 15.5 H Platelet Count 232 Mean Platelet Volume 9.3 Immature Granulocytes % 1.200 H Neutrophils % 53.5 Lymphocytes % 32.6 Monocytes % 10.0 Eosinophils % 2.2 Basophils % 0.5 Nucleated Red Blood Cells % 0.0 Immature Granulocytes # 0.050 H Neutrophils # 2.2 Lymphocytes # 1.3 Monocytes # 0.4 Eosinophils # 0.1 Basophils # 0.0 Nucleated Red Blood Cells # 0.0 Prothrombin Time 27.6 #H Prothrombin Time Ratio 2.2 INR International Normalized Ratio 2.56 Activated Partial Thromboplast Time 44.0 H Mix PTT Normal Plasma Immediate 30.3 Mix PTT Normal Plasma 1 Hour 33.4 Sodium Level 140 Potassium Level 3.2 L Chloride Level 102 Carbon Dioxide Level 31 Anion Gap 7 Blood Urea Nitrogen 22 H Creatinine 0.75 Est Glomerular Filtrat Rate mL/min > 60 Glucose Level 106 Calcium Level 9.3 Medications Medication Current Medications Amlodipine Besylate (Norvasc) 5 mg DAILY PO ; Start 06/03/18 at 09:00; Status Hold Pantoprazole (Protonix Tab) 40 mg DAILY@06 PO Last administered on 08/03/18at 05:30; Admin Dose 40 MG; Start 06/05/18 at 06:00 Metoclopramide HCl (Reglan) 5 mg TID PRN IV Nausea; Start 06/06/18 at 11:00 Polyethylene Glycol (Miralax) 17 gm BID PRN PO CONSTIPATION; Start 06/06/18 at 14:00 Bisacodyl (Dulcolax Supp) 10 mg DAILY PRN [place] CONSTIPATION; Start 06/06/18 at 14:00 IV Flush (NS 10 ml) 10 ml PRN PRN IV IV PROTOCOL; Start 06/06/18 at 16:00 Nystatin (Nystatin Susp) 5 ml QID PO Last administered on 08/03/18at 09:18; Admin Dose 5 ML; Start 06/06/18 at 17:00 Ferrous Sulfate (Ferrous Sulfate (Ec)) 325 mg BID PO Last administered on 08/03/18at 09:16; Admin Dose 325 MG; Start 07/09/18 at 09:30 Docusate Sodium (Colace) 100 mg DAILY PO Last administered on 08/03/18 09:15; Admin Dose 100 MG; Start 07/10/18 at 09:00 Acetaminophen (Tylenol Tab) 650 mg Q6H PRN PO MILD PAIN(1-3)OR ELEVATED TEMP Last administered on 07/14/18 21:04; Admin Dose 650 MG; Start 07/14/18 at 21:00 Albuterol/ Ipratropium (Duoneb) 3 ml Q6H RESP THERAPY PRN HHN SHORTNESS OF BREATH; Start 07/30/18 at 20:00 Levalbuterol (Xopenex Neb) 1.25 mg Q6H RESP THERAPY HHN Last administered on 08/01/18 14:10; Admin Dose 1.25 MG; Start 07/30/18 at 20:00 Warfarin Sodium (Coumadin) 4 mg DAILY@17 PO Last administered on 07/31/18 17:03; Admin Dose 4 MG; Start 07/31/18 at 17:00; Status Hold Metoprolol Tartrate (Lopressor) 25 mg BID PO Last administered on 08/03/18 09:16; Admin Dose 25 MG; Start 08/01/18 at 21:00 Bumetanide (Bumex) 1 mg BID PO Last administered on 08/03/18 09:15; Admin Dose 1 MG; Start 08/01/18 at 21:00 Atorvastatin Calcium (Lipitor) 10 mg HS PO Last administered on 08/02/18 20:44; Admin Dose 10 MG; Start 08/01/18 at 21:00 Latanoprost (Xalatan) 1 drop HS BOTH EYES Last administered on 08/02/18 20:44; Admin Dose 1 DROP; Start 08/01/18 at 21:00 Levothyroxine Sodium (Synthroid) 50 mcg DAILY@06 GTB Last administered on 08/03/18 05:30; Admin Dose 50 MCG; Start 08/02/18 at 06:00 Mometasone Furoate (Asmanex) 1 puff DAILY INH Last administered on 08/03/18 09:17; Admin Dose 1 PUFF; Start 08/02/18 at 09:00 Potassium Chloride (Klor-Con 10) 30 meq DAILY PO Last administered on 08/03/18at 09:15; Admin Dose 30 MEQ; Start 08/03/18 at 09:00 Spironolactone (Aldactone) 25 mg DAILY PO Last administered on 08/03/18at 09:16; Admin Dose 25 MG; Start 08/03/18 at 09:00 Alteplase, Recombinant (Cathflo (Activase)) 2 mg ONCE ONCE CATHETER ; Start at 13:30; Stop 08/03/18 at 13:31 SHARI CROWELL M.D. Aug 03, 2018 12:55
[2018-08-03] MEDS ORDERED: ALTEPLASE (CATHFLO) 2 MG INJ CATHETER ONE (13:30)
--- NOTE | 2018-08-03 16:48 | CONS ---
Assessment/Plan Assessment/Plan Hospital Course (Demo Recall) IMP: 1.cad s/p C with no sig obstructive cad. Mildly depressed LVEF--40-45% ? nonischemic process 2.HTN 3.RP Bleed s/p transfusions now stable and tolerating heparin/coumadin loading. Then had recurrent bled overnight now s/p covered stent to SENIOR BI DEVELOPER/Ext iliac. stable. No further abd pain, s/p pigtail catheter drainage 5.MVR-mechanical 6.anemia- s/p repair of R SENIOR BI DEVELOPER/illiac. Had hemoptysis with subsequent drop in Hgb again and holding of heparin. Had some mild blood tinged sputum 7.Hypothyroid 8. FOURNIER-negative Head CT 9. Fevers-resolved 10. UTI-Being followed by ID and on abx 11.ARF-? Contrast induced/compression from hematoma- now improving with increased urine output and slowly decreasing station detective 12. Coagulopathy-again supratherapeutic with holding of coumadin 14. LE weakness-? compression from hematoma and exacerbated by femoral compression after cath-now resolved 15. arterial insuff- LLE- s/p MANAGER [employer] OPERATIONS/thrombolysis 06/04 successfully with palpable pulses/B DP/PT and remain that way 16. PAF/AFL-rate controlled with at times conversion to SR 17. 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 Now decreasing hematuria. s/p pelvic CT revealing ongoing fistula and per urology note was discussed with family. Now resolved 18. Epistaxis-improved/resolved. no recurrence 19. 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 ? new , ? etiology. Urology following and per his note has discussed treatment options with family including surgical versus waiting and thinks that closure would be best per notes at this time, Family discussed possible transfer to [facility] for procedure as necessary and insurance did not accept and thus will follow-up at [facility] as scheduled outpatient Recc: -Now on tele -Continue BB with well controlled Hr's -Continue statin -s/p course of abx's -ongoing ID f/u -F/U station detective/K closely with creatnine now normalized and volume status improving on bumex bid. Will also assess patient's PO intake and possible contribution to volume overload -Follow HGb closely which has been stable to improved actually -PT/ambulation- doing 3x/day -May consider d/c of amio if continues to have recurrent PAF -Urology following with findings of apparent bladder fistula and thus draining of the hematoma through the bladder causing hematuria which has improved and now apparent bladder-vaginal fistula.Continue to follow hematuria for complete resolution and assess need for spontaneous closure versus need for repair which has been discussed with family and urology and between them as well. ? necessity of closing fistula and d/c'ing vincent at this time given clarity of urine/resolution of hematuria but have discussed with urology and states bladder must remain decompressed until closure of fistula with vincent in place. Family intereseted in laparoscopic approach as possible versus open, Have been offered open repair by urology here. Case managementhas been [facility] but has not been accepted. Possible d/c with indwelling vincent and outpatient f/u at [facility] -Now back on coumadin with therapeutic INR -Continue current bumex and follow volume status -? D/C planning for today Consultation Date/Type/Reason Admit Date/Time May 28, 2018 at 17:52 Initial Consult Date 05/28/18 Type of Consult Cardiology Reason for Consultation MVR Requesting Provider: JULY VALENTIN MD Date/Time of Note DATE: 08/03/18 TIME: 16:45 Exam/Review of Systems Vital Signs Vitals Vital Signs Date Temp Pulse Resp B/P (MAP) Pulse Ox O2 O2 Flow FiO2 Time Delivery Rate 08/03/18 81 16:32 08/03/18 97.6 18 111/53 96 Room Air 15:00 (72) 08/01/18 21 21:15 Intake and Output 08/02/18 08/02/18 08/03/18 1515:00 23:00 07:00 IntakeIntake Total 700 ml 400 ml OutputOutput Total 1300 ml 950 ml BalanceBalance -600 ml -550 ml Exam Exam Review of Systems: CONSTITUTIONAL: No fevers, chills. PULMONARY: No sob CARDIOVASCULAR: No chest pain/palpitations GASTROINTESTINAL: No nausea/vomiting. GENITOURINARY: No hematuria/dysuria. MUSCULOSKELETAL: No myagias/arthalgias. PSYCHIATRIC: The patient denies depression. NEUROLOGIC: No weakness Constitutional: alert Psych: no complaints Head: normocephalic ENMT: mucosa pink and moist Neck: supple, jvd (9 cm water) Respiratory: diminished breath sounds Cardiovascular: regular rate and rhythm Gastrointestinal: soft, non-tender Musculoskeletal: muscle tone (normal) Extremities: edema (none) Neurological: other (no focal deficits) Labs Result Diagram: 08/03/1858 08/03/18 0658 Results 24hrs Laboratory Tests Test 08/03/18 06:58 White Blood Count 4.1 #L Red Blood Count 3.06 L Hemoglobin 9.7 L Hematocrit 29.6 L Mean Corpuscular Volume 96.7 Mean Corpuscular Hemoglobin 31.7 Mean Corpuscular Hemoglobin Concent 32.8 Red Cell Distribution Width 15.5 H Platelet Count 232 Mean Platelet Volume 9.3 Immature Granulocytes % 1.200 H Neutrophils % 53.5 Lymphocytes % 32.6 Monocytes % 10.0 Eosinophils % 2.2 Basophils % 0.5 Nucleated Red Blood Cells % 0.0 Immature Granulocytes # 0.050 H Neutrophils # 2.2 Lymphocytes # 1.3 Monocytes # 0.4 Eosinophils # 0.1 Basophils # 0.0 Nucleated Red Blood Cells # 0.0 Prothrombin Time 27.6 #H Prothrombin Time Ratio 2.2 INR International Normalized Ratio 2.56 Activated Partial Thromboplast Time 44.0 H Mix PTT Normal Plasma Immediate 30.3 Mix PTT Normal Plasma 1 Hour 33.4 Sodium Level 140 Potassium Level 3.2 L Chloride Level 102 Carbon Dioxide Level 31 Anion Gap 7 Blood Urea Nitrogen 22 H Creatinine 0.75 Est Glomerular Filtrat Rate mL/min > 60 Glucose Level 106 Calcium Level 9.3 Medications Medications Current Medications Amlodipine Besylate (Norvasc) 5 mg DAILY PO ; Start 06/03/18 at 09:00; Status Hold Pantoprazole (Protonix Tab) 40 mg DAILY@06 PO Last administered on 08/03/18at 05:30; Admin Dose 40 MG; Start 06/05/18 at 06:00 Metoclopramide HCl (Reglan) 5 mg TID PRN IV Nausea; Start 06/06/18 at 11:00 Polyethylene Glycol (Miralax) 17 gm BID PRN PO CONSTIPATION; Start 06/06/18 at 14:00 Bisacodyl (Dulcolax Supp) 10 mg DAILY PRN [place] CONSTIPATION; Start 06/06/18 at 14:00 IV Flush (NS 10 ml) 10 ml PRN PRN IV IV PROTOCOL; Start 06/06/18 at 16:00 Nystatin (Nystatin Susp) 5 ml QID PO Last administered on 08/03/18 13:28; Admin Dose 5 ML; Start 06/06/18 at 17:00 Ferrous Sulfate (Ferrous Sulfate (Ec)) 325 mg BID PO Last administered on 08/03/18 09:16; Admin Dose 325 MG; Start 07/09/18 at 09:30 Docusate Sodium (Colace) 100 mg DAILY PO Last administered on 08/03/18 09:15; Admin Dose 100 MG; Start 07/10/18 at 09:00 Acetaminophen (Tylenol Tab) 650 mg Q6H PRN PO MILD PAIN(1-3)OR ELEVATED TEMP Last administered on 07/14/18 21:04; Admin Dose 650 MG; Start 07/14/18 at 21:00 Albuterol/ Ipratropium (Duoneb) 3 ml Q6H RESP THERAPY PRN HHN SHORTNESS OF BREATH; Start 07/30/18 at 20:00 Levalbuterol (Xopenex Neb) 1.25 mg Q6H RESP THERAPY HHN Last administered on 08/01/18 14:10; Admin Dose 1.25 MG; Start 07/30/18 at 20:00 Warfarin Sodium (Coumadin) 4 mg DAILY@17 PO Last administered on 07/31/18 17:03; Admin Dose 4 MG; Start 07/31/18 at 17:00; Status Hold Metoprolol Tartrate (Lopressor) 25 mg BID PO Last administered on 08/03/18 09:16; Admin Dose 25 MG; Start 08/01/18 at 21:00 Bumetanide (Bumex) 1 mg BID PO Last administered on 08/03/18 09:15; Admin Dose 1 MG; Start 08/01/18 at 21:00 Atorvastatin Calcium (Lipitor) 10 mg HS PO Last administered on 08/02/18 20:44; Admin Dose 10 MG; Start 08/01/18 at 21:00 Latanoprost (Xalatan) 1 drop HS BOTH EYES Last administered on 08/02/18 20:44; Admin Dose 1 DROP; Start 08/01/18 at 21:00 Levothyroxine Sodium (Synthroid) 50 mcg DAILY@06 GTB Last administered on 08/03/18 05:30; Admin Dose 50 MCG; Start 08/02/18 at 06:00 Mometasone Furoate (Asmanex) 1 puff DAILY INH Last administered on 08/03/18at 09:17; Admin Dose 1 PUFF; Start 08/02/18 at 09:00 Potassium Chloride (Klor-Con 10) 30 meq DAILY PO Last administered on 08/03/18 09:15; Admin Dose 30 MEQ; Start 08/03/18 at 09:00 Spironolactone (Aldactone) 25 mg DAILY PO Last administered on 08/03/18 09:16; Admin Dose 25 MG; Start 08/03/18 at 09:00 CHRIS LAZAR Aug 03, 2018 16:48
[2018-08-03] MEDS: WARFARIN 5 MG TAB PO SCH (17:07)
--- NOTE | 2018-08-03 19:32 | PN ---
Date/Time of Note Date/Time of Note DATE: 08/03/18 TIME: 19:24 Assessment/Plan VTE Prophylaxis Risk score (from [facility] [place])>0 risk: 7 SCD applied (from [facility] [place]): No SCD contraindicated: other Pharmacological prophylaxis: other Pharm contraindication: other Lines/Catheters [facility] Peripheral IV Urinary Cath still in place: Yes Reason Cath still needed: other (indicate) Assessment/Plan Assessment/Plan - hypokalemia- replaced; fu am BMP - Almost hypomagnesium - 1.7- replaced; fu am BMP - coagulopathy-resolved; INR 2.56 today - Coumadin 4 mg given - fu INR am - Wheezing- none at present -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 Continue [place], monitor. Dr. Ashford is following in urology consultation. -Polymicrobial UTI, completed treatment with abx. Dr. Hughes is following in infection disease consultation. -Anemia of acute blood loss, transfuse PRN, monitor H&H. 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 -S/p Nose/oropharyngeal bleed on 06/11/2018, stopped after heparin was held. -Retroperitoneal bleed secondary to vascular injury status post stent placement. S/p CT guided placement of drainage catheter into pelvic hematoma on 06/05/18 and sequent removal. -Status post left heart catheterization with no significant obstructive coronary artery disease by Dr. Moreno on 05/27/2018. -Anemia of acute blood loss, status post blood transfusion, continue to monitor hemoglobin and hematocrit. -Urinary incontinence. -Acute illness myopathy -Status post mitral valve replacement with mechanical valve in 1999. Continue Coumadin, monitor PT/INR. -HTN, continue metoprolol -Hyperlipidemia -Hypothyroidism, continue levothyroxine -History of asthma - Mild Azotemia- monitor renal functions Patient seen on collaboration with Dr Painter. staff Result Diagram: 08/03/18 0658 08/03/18 0658 Results 24hrs Laboratory Tests Test 08/03/18 06:58 White Blood Count 4.1 #L Red Blood Count 3.06 L Hemoglobin 9.7 L Hematocrit 29.6 L Mean Corpuscular Volume 96.7 Mean Corpuscular Hemoglobin 31.7 Mean Corpuscular Hemoglobin Concent 32.8 Red Cell Distribution Width 15.5 H Platelet Count 232 Mean Platelet Volume 9.3 Immature Granulocytes % 1.200 H Neutrophils % 53.5 Lymphocytes % 32.6 Monocytes % 10.0 Eosinophils % 2.2 Basophils % 0.5 Nucleated Red Blood Cells % 0.0 Immature Granulocytes # 0.050 H Neutrophils # 2.2 Lymphocytes # 1.3 Monocytes # 0.4 Eosinophils # 0.1 Basophils # 0.0 Nucleated Red Blood Cells # 0.0 Prothrombin Time 27.6 #H Prothrombin Time Ratio 2.2 INR International Normalized Ratio 2.56 Activated Partial Thromboplast Time 44.0 H Mix PTT Normal Plasma Immediate 30.3 Mix PTT Normal Plasma 1 Hour 33.4 Sodium Level 140 Potassium Level 3.2 L Chloride Level 102 Carbon Dioxide Level 31 Anion Gap 7 Blood Urea Nitrogen 22 H Creatinine 0.75 Est Glomerular Filtrat Rate mL/min > 60 Glucose Level 106 Calcium Level 9.3 Subjective 24 Hr Interval Summary Free Text/Dictation INR 2.56- Coumadin given today INR am no hematuria noted Low K- replaced at bed side no new issues reported last night dw staff Constitutional: improved Eyes: no complaints ENT: no complaints Respiratory: no complaints Cardiovascular: no complaints Gastrointestinal: no complaints Genitourinary: no complaints Musculoskeletal: no complaints Skin: no complaints Neurologic: no complaints Endocrine: no complaints Lymphatic: no complaints Psychological: nl mood/affect Exam/Review of Systems Exam Vitals Vital Signs Date Temp Pulse Resp B/P (MAP) Pulse Ox O2 O2 Flow FiO2 Time Delivery Rate 08/03/18 81 16:32 08/03/18 97.6 18 111/53 96 Room Air 15:00 (72) 08/01/18 21 21:15 Intake and Output 08/02/18 08/02/18 08/03/18 1515:00 23:00 07:00 IntakeIntake Total 700 ml 400 ml OutputOutput Total 1300 ml 950 ml BalanceBalance -600 ml -550 ml Constitutional: alert, well developed Psych: nl mood/affect Eyes: nl lids, nl sclera ENMT: nl external ears & nose Respiratory: clear to auscultation Cardiovascular: nl pulses, other Gastrointestinal: soft, non-tender Genitourinary - Female: other (no hematuria) Musculoskeletal: nl extremities to inspection Extremities: normal pulses Neurological: nl mental status, nl speech Skin: nl turgor Lymph: nontender Results Results 24hrs Laboratory Tests Test 08/03/18 06:58 White Blood Count 4.1 #L Red Blood Count 3.06 L Hemoglobin 9.7 L Hematocrit 29.6 L Mean Corpuscular Volume 96.7 Mean Corpuscular Hemoglobin 31.7 Mean Corpuscular Hemoglobin Concent 32.8 Red Cell Distribution Width 15.5 H Platelet Count 232 Mean Platelet Volume 9.3 Immature Granulocytes % 1.200 H Neutrophils % 53.5 Lymphocytes % 32.6 Monocytes % 10.0 Eosinophils % 2.2 Basophils % 0.5 Nucleated Red Blood Cells % 0.0 Immature Granulocytes # 0.050 H Neutrophils # 2.2 Lymphocytes # 1.3 Monocytes # 0.4 Eosinophils # 0.1 Basophils # 0.0 Nucleated Red Blood Cells # 0.0 Prothrombin Time 27.6 #H Prothrombin Time Ratio 2.2 INR International Normalized Ratio 2.56 Activated Partial Thromboplast Time 44.0 H Mix PTT Normal Plasma Immediate 30.3 Mix PTT Normal Plasma 1 Hour 33.4 Sodium Level 140 Potassium Level 3.2 L Chloride Level 102 Carbon Dioxide Level 31 Anion Gap 7 Blood Urea Nitrogen 22 H Creatinine 0.75 Est Glomerular Filtrat Rate mL/min > 60 Glucose Level 106 Calcium Level 9.3 Medications Medication Current Medications Amlodipine Besylate (Norvasc) 5 mg DAILY PO ; Start 06/03/18 at 09:00; Status Hold Pantoprazole (Protonix Tab) 40 mg DAILY@06 PO Last administered on 08/03/18at 05:30; Admin Dose 40 MG; Start 06/05/18 at 06:00 Metoclopramide HCl (Reglan) 5 mg TID PRN IV Nausea; Start 06/06/18 at 11:00 Polyethylene Glycol (Miralax) 17 gm BID PRN PO CONSTIPATION; Start 06/06/18 at 14:00 Bisacodyl (Dulcolax Supp) 10 mg DAILY PRN [place] CONSTIPATION; Start 06/06/18 at 14:00 IV Flush (NS 10 ml) 10 ml PRN PRN IV IV PROTOCOL; Start 06/06/18 at 16:00 Nystatin (Nystatin Susp) 5 ml QID PO Last administered on 08/03/18at 16:52; Admin Dose 5 ML; Start 06/06/18 at 17:00 Ferrous Sulfate (Ferrous Sulfate (Ec)) 325 mg BID PO Last administered on 08/03/18 09:16; Admin Dose 325 MG; Start 07/09/18 at 09:30 Docusate Sodium (Colace) 100 mg DAILY PO Last administered on 08/03/18 09:15; Admin Dose 100 MG; Start 07/10/18 at 09:00 Acetaminophen (Tylenol Tab) 650 mg Q6H PRN PO MILD PAIN(1-3)OR ELEVATED TEMP Last administered on 07/14/18 21:04; Admin Dose 650 MG; Start 07/14/18 at 21:00 Albuterol/ Ipratropium (Duoneb) 3 ml Q6H RESP THERAPY PRN HHN SHORTNESS OF BREATH; Start 07/30/18 at 20:00 Levalbuterol (Xopenex Neb) 1.25 mg Q6H RESP THERAPY HHN Last administered on 08/01/18 14:10; Admin Dose 1.25 MG; Start 07/30/18 at 20:00 Metoprolol Tartrate (Lopressor) 25 mg BID PO Last administered on 08/03/18 09:16; Admin Dose 25 MG; Start 08/01/18 at 21:00 Bumetanide (Bumex) 1 mg BID PO Last administered on 08/03/18 09:15; Admin Dose 1 MG; Start 08/01/18 at 21:00 Atorvastatin Calcium (Lipitor) 10 mg HS PO Last administered on 08/02/18 20:44; Admin Dose 10 MG; Start 08/01/18 at 21:00 Latanoprost (Xalatan) 1 drop HS BOTH EYES Last administered on 08/02/18 20:44; Admin Dose 1 DROP; Start 08/01/18 at 21:00 Levothyroxine Sodium (Synthroid) 50 mcg DAILY@06 GTB Last administered on 08/03/18 05:30; Admin Dose 50 MCG; Start 08/02/18 at 06:00 Mometasone Furoate (Asmanex) 1 puff DAILY INH Last administered on 08/03/18 09:17; Admin Dose 1 PUFF; Start 08/02/18 at 09:00 Potassium Chloride (Klor-Con 10) 30 meq DAILY PO Last administered on 08/03/18 09:15; Admin Dose 30 MEQ; Start 4/24/19 at 09:00 Spironolactone (Aldactone) 25 mg DAILY PO Last administered on 08/03/18at 09:16; Admin Dose 25 MG; Start 08/03/18 at 09:00 Warfarin Sodium (Coumadin) 5 mg DAILY@17 PO Last administered on 08/03/18at 17:07; Admin Dose 5 MG; Start 08/03/18 at 17:00 DELICIA MATUTE Aug 03, 2018 19:32
[2018-08-03] MEDS: ATORVASTATIN 10 MG TAB PO SCH (20:30)
[2018-08-03] MEDS: LATANOPROST 0.005% 2.5 ML OPH BOTH EYES SCH (20:37)
[2018-08-04] VITALS (8 sets, daily range): BP systolic 112–127; BP diastolic 56–88; PULSE 18–88; RESP 18
[2018-08-04] MEDS: LEVOTHYROXINE 50 MCG TAB GTB SCH (06:12)
[2018-08-04] MEDS: PANTOPRAZOLE (EC) 40 MG TAB PO SCH (06:12)
[2018-08-04] MEDS ORDERED: POTASSIUM CHLORIDE (SR) 20 MEQ TAB PO STA (07:03)
[2018-08-04] MEDS: LEVALBUTEROL (NEB) 1.25 MG/0.5 ML AMP HHN SCH ×2 (08:00→14:00)
--- NOTE | 2018-08-04 09:06 | PN ---
DATE: 08/04/2018 SUBJECTIVE: The patient is stable, no events overnight. OBJECTIVE: VITAL SIGNS: Blood pressure is 118/88, pulse 88, respirations 18, temperature 97.8. HEENT: Head is normocephalic. NECK: Supple. HEART: Regular rate. LUNGS: Show diminished breath sounds at the base. ABDOMEN: Soft, nontender to palpation without rebound or guarding. EXTREMITIES: Negative for clubbing, cyanosis. Trace edema. DERMATOLOGIC: No rashes. MUSCULOSKELETAL: No joint effusion. NEUROLOGIC: No change in exam. MEDICATIONS: Reviewed. LABORATORY DATA: From 08/04/2018 was reviewed. ASSESSMENT AND PLAN: 1. Nonoliguric acute kidney injury with previously normal baseline creatinine. Etiology of acute ki dney injury is secondary to acute tubular necrosis. Renal function is improved. Continue current tr eatment plan, supportive care, renally dose all medicines. 2. Hematuria, resolved. 3. Hypokalemia. Continue to monitor and replete. We will give an additional 40 mEq of KCl today. 4. Volume overload, improving. Continue diuretic therapy. 5. Anemia. Monitor hemoglobin and hematocrit levels. 6. Mechanical heart valve. Continue anticoagulation per cardiology. 7. Sepsis secondary to urinary tract infection. 8. Hypothyroidism. 9. Dyslipidemia. 10. Hypertension. Continue current blood pressure regimen. 11. Status post intraabdominal hematoma. 12. History of asthma. Dictated By: GWYN FABIAN DO NR/NTS Conf#: [id number] DID#: [id number] CC: JULY VALENTIN MD; JOAQUIN DE LEON MD; CHRIS LAZAR MD;*EndCC*
[2018-08-04] MEDS: SPIRONOLACTONE 25 MG TAB PO SCH (09:14)
[2018-08-04] MEDS: DOCUSATE SODIUM 100 MG CAP PO SCH (09:14)
[2018-08-04] MEDS: FERROUS SULFATE (EC) 325 MG TAB PO SCH (09:14)
[2018-08-04] MEDS: BUMETANIDE 1 MG TAB PO SCH (09:14)
[2018-08-04] MEDS: MOMETASONE 0.24 GM INHALER INH SCH (09:15)
[2018-08-04] MEDS: NYSTATIN SUSP 5 ML CUP PO SCH ×3 (09:15→17:08)
[2018-08-04] MEDS: POTASSIUM CHLORIDE (SR) 10 MEQ TAB PO SCH (09:15)
[2018-08-04] MEDS: METOPROLOL 25 MG TAB PO SCH (09:15)
--- NOTE | 2018-08-04 13:06 | CONS ---
[facility] HCIS Consult Follow-up Patient Name: Quyen Sexton Unit Number: [id number] Date of : 1955 Patient Status: Admitted Inpatient Attending Doctor: July Valentin MD Edit: SHARI MOLINA M.D. on 08/04/18 @ 15:49 I discussed the management with LOW HEEL BUILDER Alan and agree Assessment/Plan Assessment/Plan Hospital Course (Demo Recall) # sepsis, cardiopulmonary - S/p severe sepsis due to UTI, resolved - S/p SIRS due to acute blood loss, resolved - S/p L heart catheterization on 05/27/2018 showing no significant obstructive CAD - CAD - S/p CABG in [facility] in 1982 - H/o MVR with mechanical valve, in 1999 - Hypertension - PAF - Asthma # urology/renal, GI - s/p recurrent UTI on 07/15/2018 due to Citrobacter Freundii, Enterococcus species, MDR Enterobacter; s/p Zosyn->ertapenem - S/p UTI due to hafnai alvei and pediococci on 06/30/18. Pt completed pip/tazo (07/02/18-07/05/2018) for this episode - S/p UTI due to E. coli. Pt completed pip/tazo (06/02/2018-06/03/2018), ceftriaxone (06/04/2018-06/07/2018) for this episode - S/p CT guided placement of drainage catheter into pelvic hematoma 06/05/2018-->removed on 06/09/2018 - Hematuria caused by ruptured urinary bladder (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 - US Abdomen 07/18/18 showed Complex fluid collection about the anterior superior bladder measuring up to 10.0 x 8.6 x 7.2 cm. Bladder wall thickening. 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, s/p covered stent placement 6 x 100 mm right common femoral artery and right external iliac artery, abdominal aortogram, catheter introduction to the abdominal aorta, JOSÉ MIGUEL guidance into the central artery 06/02/2018 - S/p retroperitoneal bleed - S/p acute anemia requiring PRBC # endo - Hyperlipidemia - Hypothyroidism Recommendations: - monitor Pt closely off antibiotics - will send UTI workup if Pt becomes symptomatic and/or lab shows a return of infections - Ok to DC PICC line from ID standpoint Pt's has Urology appointment on 09/09/2018 and the daughter is calling periodically to look for cancelation Management d/w patient, GONZALO Kruse, and with Dr. Molina Consultation Date/Type/Reason Admit Date/Time May 28, 2018 at 17:52 Initial Consult Date 06/02/18 Type of Consult Infectious Disease Requesting Provider: JULY VALENTIN MD Date/Time of Note DATE: 08/04/18 TIME: 13:03 24 HR Interval Summary Free Text/Dictation DC planning for home today per d/w nursing. Pt with no complaints but asking about the color of her urine in the [place]. Exam/Review of Systems Exam Vitals Vital Signs Date Temp Pulse Resp B/P (MAP) Pulse Ox O2 O2 Flow FiO2 Time Delivery Rate 08/04/18 97.9 18 18 127/59 98 Room Air 11:01 (81) 08/01/18 21 21:15 Intake and Output 08/03/18 08/03/18 08/04/18 1515:00 23:00 07:00 IntakeIntake Total 1000 ml 500 ml OutputOutput Total 1700 ml 950 ml BalanceBalance -700 ml -450 ml Constitutional: alert, oriented, well developed Psych: no complaints, nl mood/affect Head: normocephalic, atraumatic Eyes: nl conjunctiva, nl lids, nl sclera ENMT: nl external ears & nose, nl nasal mucosa & septum, mucosa pink and moist Neck: supple, non-tender Respiratory: clear to auscultation, normal air movement, crackles/rales Cardiovascular: regular rate and rhythm, nl pulses; No edema Gastrointestinal: soft, non-tender Genitourinary - Female: other ([place] with yellow urine with slightly haziness and sediments) Musculoskeletal: nl extremities to inspection Extremities: normal pulses, other (PICC site is clean. R hand HL c/d/i) Neurological: nl mental status, nl speech, nl strength Skin: nl turgor; No rash or lesions Results Result Diagram: 08/04/18 0612 08/04/18 0612 Results 24hrs Laboratory Tests Test 08/04/18 06:12 White Blood Count 4.2 L Red Blood Count 2.95 L Hemoglobin 9.4 L Hematocrit 28.3 L Mean Corpuscular Volume 95.9 Mean Corpuscular Hemoglobin 31.9 Mean Corpuscular Hemoglobin Concent 33.2 Red Cell Distribution Width 15.4 H Platelet Count 214 Mean Platelet Volume 9.1 Immature Granulocytes % 1.200 H Neutrophils % 52.4 Lymphocytes % 33.0 Monocytes % 9.8 Eosinophils % 2.9 Basophils % 0.7 Nucleated Red Blood Cells % 0.0 Immature Granulocytes # 0.050 H Neutrophils # 2.2 Lymphocytes # 1.4 Monocytes # 0.4 Eosinophils # 0.1 Basophils # 0.0 Nucleated Red Blood Cells # 0.0 Prothrombin Time 23.9 H Prothrombin Time Ratio 1.9 INR International Normalized Ratio 2.13 Activated Partial Thromboplast Time 35.9 H Mix PTT Normal Plasma Immediate Sodium Level 141 Potassium Level 3.4 L Chloride Level 103 Carbon Dioxide Level 30 Anion Gap 8 Blood Urea Nitrogen 24 H Creatinine 0.65 Est Glomerular Filtrat Rate mL/min > 60 Glucose Level 112 Calcium Level 9.2 Phosphorus Level 3.6 Magnesium Level 1.9 Imaging Imaging RUE venous doppler 08/03/2018: No sonographic evidence for venous thrombosis. Medications Medication Current Medications Amlodipine Besylate (Norvasc) 5 mg DAILY PO ; Start 06/03/18 at 09:00; Status Hold Pantoprazole (Protonix Tab) 40 mg DAILY@06 PO Last administered on 08/04/18at 06:12; Admin Dose 40 MG; Start 06/05/18 at 06:00 Metoclopramide HCl (Reglan) 5 mg TID PRN IV Nausea; Start 06/06/18 at 11:00 Polyethylene Glycol (Miralax) 17 gm BID PRN PO CONSTIPATION; Start 06/06/18 at 14:00 Bisacodyl (Dulcolax Supp) 10 mg DAILY PRN [place] CONSTIPATION; Start 06/06/18 at 14:00 IV Flush (NS 10 ml) 10 ml PRN PRN IV IV PROTOCOL; Start 06/06/18 at 16:00 Nystatin (Nystatin Susp) 5 ml QID PO Last administered on 08/04/18 09:15; Admin Dose 5 ML; Start 06/06/18 at 17:00 Ferrous Sulfate (Ferrous Sulfate (Ec)) 325 mg BID PO Last administered on 08/04/18 09:14; Admin Dose 325 MG; Start 07/09/18 at 09:30 Docusate Sodium (Colace) 100 mg DAILY PO Last administered on 08/04/18 09:14; Admin Dose 100 MG; Start 07/10/18 at 09:00 Acetaminophen (Tylenol Tab) 650 mg Q6H PRN PO MILD PAIN(1-3)OR ELEVATED TEMP Last administered on 07/14/18 21:04; Admin Dose 650 MG; Start 07/14/18 at 21:00 Albuterol/ Ipratropium (Duoneb) 3 ml Q6H RESP THERAPY PRN HHN SHORTNESS OF BREATH; Start 07/30/18 at 20:00 Levalbuterol (Xopenex Neb) 1.25 mg Q6H RESP THERAPY HHN Last administered on 08/01/18 14:10; Admin Dose 1.25 MG; Start 07/30/18 at 20:00 Metoprolol Tartrate (Lopressor) 25 mg BID PO Last administered on 08/04/18 09:15; Admin Dose 25 MG; Start 08/01/18 at 21:00 Bumetanide (Bumex) 1 mg BID PO Last administered on 08/04/18 09:14; Admin Dose 1 MG; Start 08/01/18 at 21:00 Atorvastatin Calcium (Lipitor) 10 mg HS PO Last administered on 08/03/18 20:30; Admin Dose 10 MG; Start 08/01/18 at 21:00 Latanoprost (Xalatan) 1 drop HS BOTH EYES Last administered on 08/03/18 20:37; Admin Dose 1 DROP; Start 08/01/18 at 21:00 Levothyroxine Sodium (Synthroid) 50 mcg DAILY@06 GTB Last administered on 08/04/18 06:12; Admin Dose 50 MCG; Start 08/02/18 at 06:00 Mometasone Furoate (Asmanex) 1 puff DAILY INH Last administered on 08/04/18 09:15; Admin Dose 1 PUFF; Start 08/02/18 at 09:00 Potassium Chloride (Klor-Con 10) 30 meq DAILY PO Last administered on 08/04/18 09:15; Admin Dose 30 MEQ; Start 08/03/18 at 09:00 Spironolactone (Aldactone) 25 mg DAILY PO Last administered on 08/04/18 09:14; Admin Dose 25 MG; Start 08/03/18 at 09:00 Warfarin Sodium (Coumadin) 5 mg DAILY@17 PO Last administered on 08/03/18 17:07; Admin Dose 5 MG; Start 08/03/18 at 17:00 KISHORE JARAMILLO NP Aug 04, 2018 13:06
--- NOTE | 2018-08-04 13:44 | CONS ---
Assessment/Plan Assessment/Plan Hospital Course (Demo Recall) IMP: 1.cad s/p C with no sig obstructive cad. Mildly depressed LVEF--40-45% ? nonischemic process 2.HTN 3.RP Bleed s/p transfusions now stable and tolerating heparin/coumadin loading. Then had recurrent bled overnight now s/p covered stent to CUPOLA TENDER HELPER/Ext iliac. stable. No further abd pain, s/p pigtail catheter drainage 5.MVR-mechanical 6.anemia- s/p repair of R CUPOLA TENDER HELPER/illiac. Had hemoptysis with subsequent drop in Hgb again and holding of heparin. Had some mild blood tinged sputum 7.Hypothyroid 8. FOURNIER-negative Head CT 9. Fevers-resolved 10. UTI-Being followed by ID and on abx 11.ARF-? Contrast induced/compression from hematoma- now improving with increased urine output and slowly decreasing note specialist 12. Coagulopathy-again supratherapeutic with holding of coumadin 14. LE weakness-? compression from hematoma and exacerbated by femoral compression after cath-now resolved 15. arterial insuff- LLE- s/p PERFORMANCE REPORTER/thrombolysis 06/04 successfully with palpable pulses/B DP/PT and remain that way 16. PAF/AFL-rate controlled with at times conversion to SR 17. 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 Now decreasing hematuria. s/p pelvic CT revealing ongoing fistula and per urology note was discussed with family. Now resolved 18. Epistaxis-improved/resolved. no recurrence 19. 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 ? new , ? etiology. Urology following and per his note has discussed treatment options with family including surgical versus waiting and thinks that closure would be best per notes at this time, Family discussed possible transfer to [facility] for procedure as necessary and insurance did not accept and thus will follow-up at [facility] as scheduled outpatient Recc: -Now on tele -Continue BB with well controlled Hr's -Continue statin -s/p course of abx's -ongoing ID f/u -F/U note specialist/K closely with creatnine now normalized and volume status improving on bumex bid. Will also assess patient's PO intake and possible contribution to volume overload -Follow HGb closely which has been stable to improved actually -PT/ambulation- doing 3x/day -s/p d/c amiodarone and continues to ahve bouts of AF but rate controlled -Urology following with findings of apparent bladder fistula and thus draining of the hematoma through the bladder causing hematuria which has improved and now apparent bladder-vaginal fistula.Continue to follow hematuria for complete resolution and assess need for spontaneous closure versus need for repair which has been discussed with family and urology and between them as well. ? necessity of closing fistula and d/c'ing vincent at this time given clarity of urin e/resolution of hematuria but have discussed with urology and states bladder must remain decompressed until closure of fistula with vincent in place. Family intereseted in laparoscopic approach as possible versus open, Have been offered open repair by urology here. Case managemen elsa been attempting transfer to tertiary care center [facility] but has not been accepted. Possible d/c with indwelling vincent and outpatient f/u at [facility] -Now back on coumadin with therapeutic INR -Continue current bumex and follow volume status -D/C planning soon with outpatient f/u scheduled at [facility] Consultation Date/Type/Reason Admit Date/Time May 28, 2018 at 17:52 Initial Consult Date 05/28/18 Type of Consult Cardiology Reason for Consultation MVR Requesting Provider: JULY VALENTIN MD Date/Time of Note DATE: 08/04/18 TIME: 13:42 Exam/Review of Systems Vital Signs Vitals Vital Signs Date Temp Pulse Resp B/P (MAP) Pulse Ox O2 O2 Flow FiO2 Time Delivery Rate 08/04/18 97.9 18 18 127/59 98 Room Air 11:01 (81) 08/01/18 21 21:15 Intake and Output 08/03/18 08/03/18 08/04/18 1515:00 23:00 07:00 IntakeIntake Total 1000 ml 500 ml OutputOutput Total 1700 ml 950 ml BalanceBalance -700 ml -450 ml Exam Exam Review of Systems: CONSTITUTIONAL: No fevers, chills. PULMONARY: No sob CARDIOVASCULAR: No chest pain/palpitations GASTROINTESTINAL: No nausea/vomiting. GENITOURINARY: No hematuria/dysuria. MUSCULOSKELETAL: No myagias/arthalgias. PSYCHIATRIC: The patient denies depression. NEUROLOGIC: No weakness Constitutional: alert, oriented Psych: no complaints Head: normocephalic ENMT: mucosa pink and moist Neck: supple, jvd (9 cm water) Respiratory: diminished breath sounds (at bases/B) Cardiovascular: regular rate and rhythm Gastrointestinal: soft, non-tender Musculoskeletal: muscle tone (normal) Extremities: edema (none) Neurological: other (No focal deficits) Labs Result Diagram: 08/04/18 0612 08/04/18 0612 Results 24hrs Laboratory Tests Test 08/04/18 06:12 White Blood Count 4.2 L Red Blood Count 2.95 L Hemoglobin 9.4 L Hematocrit 28.3 L Mean Corpuscular Volume 95.9 Mean Corpuscular Hemoglobin 31.9 Mean Corpuscular Hemoglobin Concent 33.2 Red Cell Distribution Width 15.4 H Platelet Count 214 Mean Platelet Volume 9.1 Immature Granulocytes % 1.200 H Neutrophils % 52.4 Lymphocytes % 33.0 Monocytes % 9.8 Eosinophils % 2.9 Basophils % 0.7 Nucleated Red Blood Cells % 0.0 Immature Granulocytes # 0.050 H Neutrophils # 2.2 Lymphocytes # 1.4 Monocytes # 0.4 Eosinophils # 0.1 Basophils # 0.0 Nucleated Red Blood Cells # 0.0 Prothrombin Time 23.9 H Prothrombin Time Ratio 1.9 INR International Normalized Ratio 2.13 Activated Partial Thromboplast Time 35.9 H Mix PTT Normal Plasma Immediate Sodium Level 141 Potassium Level 3.4 L Chloride Level 103 Carbon Dioxide Level 30 Anion Gap 8 Blood Urea Nitrogen 24 H Creatinine 0.65 Est Glomerular Filtrat Rate mL/min > 60 Glucose Level 112 Calcium Level 9.2 Phosphorus Level 3.6 Magnesium Level 1.9 Medications Medications Current Medications Amlodipine Besylate (Norvasc) 5 mg DAILY PO ; Start 06/03/18 at 09:00; Status Hold Pantoprazole (Protonix Tab) 40 mg DAILY@06 PO Last administered on 08/04/18at 06:12; Admin Dose 40 MG; Start 06/05/18 at 06:00 Metoclopramide HCl (Reglan) 5 mg TID PRN IV Nausea; Start 06/06/18 at 11:00 Polyethylene Glycol (Miralax) 17 gm BID PRN PO CONSTIPATION; Start 06/06/18 at 14:00 Bisacodyl (Dulcolax Supp) 10 mg DAILY PRN [place] CONSTIPATION; Start 06/06/18 at 14:00 IV Flush (NS 10 ml) 10 ml PRN PRN IV IV PROTOCOL; Start 06/06/18 at 16:00 Nystatin (Nystatin Susp) 5 ml QID PO Last administered on 08/04/18 13:13; Admi n Dose 5 ML; Start 06/06/18 at 17:00 Ferrous Sulfate (Ferrous Sulfate (Ec)) 325 mg BID PO Last administered on 08/04/18 09:14; Admin Dose 325 MG; Start 07/09/18 at 09:30 Docusate Sodium (Colace) 100 mg DAILY PO Last administered on 08/04/18 09:14; Admin Dose 100 MG; Start 07/10/18 at 09:00 Acetaminophen (Tylenol Tab) 650 mg Q6H PRN PO MILD PAIN(1-3)OR ELEVATED TEMP Last administered on 07/14/18 21:04; Admin Dose 650 MG; Start 07/14/18 at 21:00 Albuterol/ Ipratropium (Duoneb) 3 ml Q6H RESP THERAPY PRN HHN SHORTNESS OF BREATH; Start 07/30/18 at 20:00 Levalbuterol (Xopenex Neb) 1.25 mg Q6H RESP THERAPY HHN Last administered on 08/01/18 14:10; Admin Dose 1.25 MG; Start 07/30/18 at 20:00 Metoprolol Tartrate (Lopressor) 25 mg BID PO Last administered on 08/04/18 09:15; Admin Dose 25 MG; Start 08/01/18 at 21:00 Bumetanide (Bumex) 1 mg BID PO Last administered on 08/04/18 09:14; Admin Dose 1 MG; Start 08/01/18 at 21:00 Atorvastatin Calcium (Lipitor) 10 mg HS PO Last administered on 08/03/18 20:30; Admin Dose 10 MG; Start 08/01/18 at 21:00 Latanoprost (Xalatan) 1 drop HS BOTH EYES Last administered on 08/03/18 20:37; Admin Dose 1 DROP; Start 08/01/18 at 21:00 Levothyroxine Sodium (Synthroid) 50 mcg DAILY@06 GTB Last administered on 08/04/18 06:12; Admin Dose 50 MCG; Start 4/23/19 at 06:00 Mometasone Furoate (Asmanex) 1 puff DAILY INH Last administered on 08/04/18 09 :15; Admin Dose 1 PUFF; Start 08/02/18 at 09:00 Potassium Chloride (Klor-Con 10) 30 meq DAILY PO Last administered on 08/04/18at 09:15; Admin Dose 30 MEQ; Start 08/03/18 at 09:00 Spironolactone (Aldactone) 25 mg DAILY PO Last administered on 08/04/18at 09:14; Admin Dose 25 MG; Start 08/03/18 at 09:00 Warfarin Sodium (Coumadin) 5 mg DAILY@17 PO Last administered on 08/03/18at 17:07; Admin Dose 5 MG; Start 08/03/18 at 17:00 CHRIS LAZAR Aug 04, 2018 13:44
--- NOTE | 2018-08-04 16:19 | DS ---
Date/Time of Note Date/Time of Note DATE: 08/04/18 TIME: 16:19 Discharge Summary Admission/Discharge Info Admit Date/Time May 28, 2018 at 17:52 Discharge Date/Time Patient Condition: Stable Hx of Present Illness Ms. Sexton, a 62-year-old female with history of hypertension, dyslipidemia, reported CABG in [facility] in 1982, mitral valve replacement with mechanical valve 1999 had seen for complaints of shortness of breath. She underwent a cardiac stress test and echo revealing ischemia possible severe . Patient underwent left heart catheterization to assess for possibility of significant obstructive coronary artery disease lending to symptoms of shortness of breath and significant findings by echo and stress test. Patient seen in PACU- c/o abdominal pain; CT abdomen showed -Moderate to large amount of hemoperitoneum; Dr Moreno notified. Patient denies any chest pain, shortness of breath, headache, dizziness, nausea, vomiting. Patient is admitted under Dr Painter for further treatment/evaluation Home Meds Active Scripts Ferrous Sulfate* (Ferrous Sulfate*) 325 Mg Tabec, 325 MG PO BID for 30 Days, TAB Prov:KRISTY MCCULLOUGH 07/28/18 Pantoprazole* (Pantoprazole*) 40 Mg Tablet.dr, 40 MG PO DAILY@06 for 30 Days Prov:KRISTY MCCULLOUGH 07/28/18 Docusate Sodium* (Colace*) 100 Mg Capsule, 100 MG PO DAILY for 30 Days, CAP Prov:KRISTY MCCULLOUGH 07/28/18 Latanoprost (Latanoprost) 2.5 Ml Drops, 1 DROP BOTH EYES HS for 30 Days, BOTTLE Prov:KRISTY MCCULLOUGH 07/28/18 Mometasone Furoate (Asmanex) 220 Mcg Aer.pow.ba, 1 PUFF INH DAILY for 30 Days Prov:KRISTY MCCULLOUGH 07/28/18 Potassium Chloride* (K-Dur*) 10 Meq Tab.prt.sr, 20 MEQ PO DAILY for 30 Days Prov:KRISTY MCCULLOUGH 07/28/18 Bumetanide* (Bumetanide*) 1 Mg Tablet, 1 MG PO DAILY for 30 Days, TAB Prov:KRISTY MCCULLOUGH 07/28/18 Metoprolol Tartrate* (Lopressor*) 25 Mg Tab, 12.5 MG PO BID for 30 Days, TAB Prov:KRISTY MCCULLOUGH 07/28/18 Amiodarone Hcl* (Amiodarone Hcl*) 200 Mg Tablet, 200 MG PO DAILY for 30 Days, TAB Prov:KRISTY MCCULLOUGH 07/28/18 Warfarin Sodium* (Coumadin*) 5 Mg Tablet, 5 MG PO Q ,,SAT for 30 Days, TAB Prov:JAMELKRSITY 07/28/18 Warfarin Sodium* (Coumadin*) 4 Mg Tablet, 4 MG PO Q MON,WED,FRI,SUN for 30 Days, TAB Prov:JAMELKRISTY 07/28/18 Simvastatin* (Zocor*) 20 Mg Tablet, 20 MG PO QHS, #30 TAB Prov:JAMELKRISTY 07/28/18 Levothyroxine Sodium* (Levothyroxine Sodium*) 50 Mcg Tablet, 50 MCG PO BEFORE BREAKFAST for 30 Days, TAB Prov:JAMELKRISTY 07/28/18 Reported Medications Ergocalciferol (Vitamin D2) (VITAMIN D2) 50,000 Unit Capsule, 27282 UNIT PO [id number], CAP 05/23/18 Acetaminophen (Mapap) 500 Mg Capsule, 500 MG PO BID PRN for PAIN, CAP 05/23/18 Discontinued Reported Medications Albuterol Sulfate* (Ventolin HFA*) 18 Gm Hfa.aer.ad, 2 PUFF INHALATION Q4H, #1 INHALER 05/26/18 Furosemide* (Furosemide*) 20 Mg Tablet, 20 MG PO DAILY, #60 TAB TAKE Q 2 DAYS 05/23/18 Ranitidine Hcl* (Ranitidine Hcl*) 150 Mg Tablet, 150 MG PO HS, #30 TAB 05/23/18 Spironolactone* (Aldactone*) 25 Mg Tablet, 25 MG PO DAILY, #30 TAB 05/23/18 Beclomethasone Dipropionate (Qvar Redihaler (40 MCG)) 10.6 Gm Hfa.aeroba, 10.6 GM IH DAILY, INH 05/23/18 Amlodipine Besylate* (Norvasc*) 5 Mg Tablet, 5 MG PO BID, TAB 05/23/18 Losartan-Hydrochlorothiazide (Losartan-HCTZ) 100-25 Mg Tab, 1 TAB PO DAILY, TAB 05/23/18 Follow-up Plan Discharge after arrangement is down to follow-up with urologist for laparoscopic bladder fistula closure and home health for [place] catheter care. Patient to follow-up with primary care physician in 1 week, PT and INR in 1 week at PMD office. Primary Care Provider Not On Staff Doctor Pending Labs Laboratory Tests Test 08/04/18 06:12 White Blood Count 4.2 10^3/ul (4.8-10.8) Red Blood Count 2.95 10^6/ul (4.20-5.40) Hemoglobin 9.4 g/dl (12.0-16.0) Hematocrit 28.3 % (37.0-47.0) Mean Corpuscular Volume 95.9 fl (82.0-101.0) Mean Corpuscular Hemoglobin 31.9 pg (29.0-33.0) Mean Corpuscular Hemoglobin Concent 33.2 g/dl (32.0-37.0) Red Cell Distribution Width 15.4 % (11.5-14.5) Platelet Count 214 10^3/UL (140-415) Mean Platelet Volume 9.1 fl (7.4-10.4) Immature Granulocytes % 1.200 % (0.001-0.429) Neutrophils % 52.4 % (39.0-77.0) Lymphocytes % 33.0 % (15.0-51.0) Monocytes % 9.8 % (0.0-11.0) Eosinophils % 2.9 % (0.0-7.0) Basophils % 0.7 % (0.0-2.0) Nucleated Red Blood Cells % 0.0 /100WBC (0.0-0.0) Immature Granulocytes # 0.050 10^3/ul (0.0-0.031) Neutrophils # 2.2 10^3/ul (1.6-7.5) Lymphocytes # 1.4 10^3/ul (0.8-2.9) Monocytes # 0.4 10^3/ul (0.3-0.9) Eosinophils # 0.1 10^3/ul (0.0-0.5) Basophils # 0.0 10^3/ul (0.0-0.1) Nucleated Red Blood Cells # 0.0 10^3/ul (0.0-0.0) Prothrombin Time 23.9 Sec (11.9-14.9) Prothrombin Time Ratio 1.9 INR International Normalized Ratio 2.13 Activated Partial Thromboplast Time 35.9 Sec (23.0-35.0) Mix PTT Normal Plasma Immediate Sec Sodium Level 141 mmol/L (135-144) Potassium Level 3.4 mmol/L (3.5-5.1) Chloride Level 103 mmol/L (97-110) Carbon Dioxide Level 30 mmol/L (21-31) Anion Gap 8 (5-13) Blood Urea Nitrogen 24 mg/dl (7-20) Creatinine 0.65 mg/dl (0.44-1.00) Est Glomerular Filtrat Rate mL/min > 60 mL/min (>60) Glucose Level 112 mg/dl (70-220) Calcium Level 9.2 mg/dl (8.4-10.2) Phosphorus Level 3.6 mg/dl (2.5-4.9) Magnesium Level 1.9 mg/dl (1.7-2.5) DELICIA MATUTE Aug 04, 2018 16:19
[2018-08-04] MEDS: WARFARIN 5 MG TAB PO SCH (17:08)
== END 2018-08-04 18:57 | disposition home health service (06) | DRG 252 ==
LOC: CCL 06:58 → SDS 06:58 → ICU 14:15 → CCL 05-28 17:48 → ICU 05-28 17:52 → TEL 06-10 05:26 → ICU 06-11 08:48 → TEL 06-22 23:13
PROVIDERS: ADMIT Internal Medicine; ATTEND Internal Medicine
PROC: 30233N1 Transfusion of Nonautologous Red Blood Cells into Peripheral Vein, Percutaneous Approach (ICD-10-PCS; 2018-05-27)
PROC: 4A023N8 Measurement of Cardiac Sampling and Pressure, Bilateral, Percutaneous Approach (ICD-10-PCS; 2018-05-27)
PROC: B2111ZZ Fluoroscopy of Multiple Coronary Arteries using Low Osmolar Contrast (ICD-10-PCS; 2018-05-27)
PROC: B2161ZZ Fluoroscopy of Right and Left Heart using Low Osmolar Contrast (ICD-10-PCS; 2018-05-27)
PROC: 02HQ32Z Insertion of Monitoring Device into Right Pulmonary Artery, Percutaneous Approach (ICD-10-PCS; 2018-05-27)
PROC: 4A133B3 Monitoring of Arterial Pressure, Pulmonary, Percutaneous Approach (ICD-10-PCS; 2018-05-27)
PROC: 4A1239Z Monitoring of Cardiac Output, Percutaneous Approach (ICD-10-PCS; 2018-05-27)
PROC: 047H3DZ Dilation of Right External Iliac Artery with Intraluminal Device, Percutaneous Approach (ICD-10-PCS; 2018-06-02)
PROC: 3E033PZ Introduction of Platelet Inhibitor into Peripheral Vein, Percutaneous Approach (ICD-10-PCS; 2018-06-02)
PROC: 047K3DZ Dilation of Right Femoral Artery with Intraluminal Device, Percutaneous Approach (ICD-10-PCS; principal; 2018-06-02 19:30)
PROC: 047D3ZZ Dilation of Left Common Iliac Artery, Percutaneous Approach (ICD-10-PCS; 2018-06-04)
PROC: 047N3ZZ Dilation of Left Popliteal Artery, Percutaneous Approach (ICD-10-PCS; 2018-06-04)
PROC: 3E05317 Introduction of Other Thrombolytic into Peripheral Artery, Percutaneous Approach (ICD-10-PCS; 2018-06-04)
PROC: 0W9J30Z Drainage of Pelvic Cavity with Drainage Device, Percutaneous Approach (ICD-10-PCS; 2018-06-05)
PROC: 02HV33Z Insertion of Infusion Device into Superior Vena Cava, Percutaneous Approach (ICD-10-PCS; 2018-06-06)
DX: I25.10 Atherosclerotic heart disease of native coronary artery without angina pectoris (principal); K66.1 Hemoperitoneum; A41.9 Sepsis, unspecified organism; R65.20 Severe sepsis without septic shock; N17.0 Acute kidney failure with tubular necrosis; D62 Acute posthemorrhagic anemia; N39.0 Urinary tract infection, site not specified; D68.9 Coagulation defect, unspecified; E87.1 Hypo-osmolality and hyponatremia; I74.3 Embolism and thrombosis of arteries of the lower extremities; N17.8 Other acute kidney failure; N82.0 Vesicovaginal fistula; Z95.2 Presence of prosthetic heart valve; I10 Essential (primary) hypertension; E78.5 Hyperlipidemia, unspecified; E03.9 Hypothyroidism, unspecified; J45.909 Unspecified asthma, uncomplicated; E87.6 Hypokalemia; K80.20 Calculus of gallbladder without cholecystitis without obstruction; I72.8 Aneurysm of other specified arteries; R04.0 Epistaxis; I35.1 Nonrheumatic aortic (valve) insufficiency; Z79.02 Long term (current) use of antithrombotics/antiplatelets; R34 Anuria and oliguria; R60.9 Edema, unspecified; E87.5 Hyperkalemia; B96.20 Unspecified Escherichia coli [E. coli] as the cause of diseases classified elsewhere; G62.9 Polyneuropathy, unspecified; D72.829 Elevated white blood cell count, unspecified; N14.1 Nephropathy induced by other drugs, medicaments and biological substances; T50.8X5A Adverse effect of diagnostic agents, initial encounter; Y92.239 Unspecified place in hospital as the place of occurrence of the external cause; G72.89 Other specified myopathies; R31.0 Gross hematuria
CPT/HCPCS: 36430; 36569; 36589; 37211; 37224; 70450; 71045; 72192; 74018; 74176; 74177; 75625; 75710; 76705; 76775; 76856; 76937; 77012; 80048; 80051; 80053; 80061; 81001; 81003; 82043; 82270; 82390; 82525; 82962; 83605; 83735; 84100; 84132; 84145; 84155; 84300; 84443; 85014; 85018; 85025; 85049; 85335; 85610; 85670; 85730; 86038; 86255; 86644; 86704; 86709; 86803; 86850; 86870; 86900; 86901; 86920; 87070; 87075; 87081; 87086; 87340; 93005; 93306; 93456; 93922; 93970; 93971; 94640; 94664; 97110; 97116; 97162; 97164; 97167; 97530; 97535; A4310; C1725; C1729; C1760; C1769; C1875; C1887; C1894; J0461; J0696; J1335; J1644; J1815; J1940; J2250; J2270; J2370; J2405; J2543; J2765; J2997; J3010; J3370; J3475; J3480; J7030; J7040; J7050; J7070; J7120; P9016; P9047; Q9967